=== PATIENT | female | born 1960 | race Caucasian/White ===

== ENCOUNTER 2016-12-22 16:19 | Observation (INO) | payer MEDICAID ==
[~2016-12-22] VITALS: Ht 170.2 cm; Wt 88.9 kg
[~2016-12-22 16:19] MED LIST: ALBU17AE23 IH; ANTI14DR4 OT; ASP325TEC PO; ASP81TEC PO; ASPI-892 PO; ATOR10TA PO; ATOR40TA70 PO; AZIT-21 PO; AZIT1PAC8 PO; BENZ100C18 PO; BSP10T; BSP10T PO; CALC600T PO; CEFP500T4 PO; CEPH-38 PO; CEPH500C PO; CETI10CA PO; CETI10TA17 PO; CITA20TA4 PO; CPR500T PO; CTLP20T PO; CYAN500T2 PO; D ME PO; DULO60CA58 PO; DULO60CA6 PO; ENAL2.5T PO; ESOM20CA32 PO; ESOM20SU PO; FLT05NA16 NSEACH; FLUT16SP22; FLUT16SP22 NSEACH; GABA-488 PO; GABA-490 PO; GABA600T2 PO; GBPN400C; HYDR-3456 PO; HYDR-690; HYDR1TAB PO; HYDROCODONE; IBP600T1; IBP600T1 PO; IBUP-30 PO; INSASP10V SC; INSASP10V SQ; INSU100I14 SC; INSU100I16 SQ; INSU100V16 SC; INSU100V5 SC; INSU100V5 SQ; LEVE1U; LIRA0.6P SQ; LIRA0.6P3 SC; LISI-556 PO; LISI2.5T56 PO; METF-380 PO; METF1000 PO; METR500T PO; MMT17NA; MNTL10T PO; MONT10TA24 PO; MTF500T; MTF500T PO; MULT-63 PO; NAPR-243 PO; NITR-65 PO; ONDAN4ODT PO; PHEN100T26 PO; PRCD5U PO; PRD20T PO; PRM25T PO; SIMV10TA3 PO; SIMV20TA3 PO; SIMV40TA4 PO; SULF-222 PO; SULF1TAB38 PO; TRAM50TA2 PO; VITA1TAB43 PO
[2016-12-22] MEDS ORDERED: ASPIRIN 81 MG CHEW (CHILDREN'S ASA) PO ONE (16:30)
[2016-12-22] MEDS ORDERED: RX-NITROGLYCERIN 0.4 MG TAB BTL 25'S SL ONE (16:32)
[2016-12-22] MEDS ORDERED: RX-NITROGLYCERIN 0.4 MG TAB BTL 25'S SL STA (16:32)
--- NOTE | 2016-12-22 16:32 | ED Chest Pain ---
General Stated Complaint: CP Source: patient Exam Limitations: no limitations History of Present Illness Time seen by provider: 16:30 Initial Comments To ER with reports of central chest pain described as a tightness. This began 45 minutes ago while riding in a car on her way home from [place]. She's had associated nausea with this. Pain radiates to the left axilla. She states that she's had 3 heart catheterizations most recently about a year ago. Primary care is [facility], [facility] or busser is Dr. Kc. Currently she rates her pain a 5 out of 10. Timing/Duration: constant Severity/Quality: moderate Location: central Radiation: no radiation Activities at Onset: none ASA po BOBBIN WINDER: No NTG SL BOBBIN WINDER: No Associated Symptoms: nausea/vomiting Allergies and Home Medications Allergies Coded Allergies: codeine (Verified Allergy, Unknown, HEART PALPATATION, 02/04/15) Home Medications Albuterol 17 Gm Aerosol 2 PUFF IH Q4H PRN PRN SHORTNESS OF BREATH (Reported) Aspirin 81 Mg Tabec 81 MG PO HS (Reported) Atorvastatin Calcium 40 Mg Tablet 40 MG PO HS (Reported) Cetirizine Hcl 10 Mg Tablet 10 MG PO HS (Reported) Cyanocobalamin 500 Mcg Tablet 500 MCG PO HS (Reported) Duloxetine HCl 60 Mg Capsule.dr 60 MG PO HS (Reported) Esomeprazole Magnesium 20 Mg Capsule.dr 20 MG PO DAILY PRN PRN HEARTBURN ( Reported) Fluticasone Propionate 16 Gm Naspr 2 SPRAYS NA DAILY PRN PRN ALLERGIES (Reported ) ALTERNATES BETWEEN FLONASE AND NASONEX Gabapentin 400 Mg Capsule 400 MG PO HS PRN PRN PAIN (Reported) Insulin Detemir 100 Unit/1 Ml Insuln.pen 135 UNIT SQ HS (Reported) Insulin Detemir 100 U/Ml Vial 60 UNITS SC AM PRN PRN BLOOD SUGAR >180 (Reported ) Liraglutide 0.6 Mg/0.1 Ml Pen.injctr 1.8 MG SC HS (Reported) Metformin HCl 1,000 Mg Tablet 1,000 MG PO BID (Reported) Mometasone Furoate 17 Gm Naspr 2 SPRAYS NA DAILY PRN PRN CONGESTION (Reported) ALTERNATES WITH FLONASE AND NASONEX Multivitamin 1 Each Tab.chew 1 EACH PO HS (Reported) Review of Systems Constitutional: see HPI EENTM: No Symptoms Reported Cardiovascular: See HPI Chest Pain Gastrointestinal: No Symptoms Reported Genitourinary: No Symptoms Reported Musculoskeletal: no symptoms reported Skin: no symptoms reported Psychiatric/Neurological: No Symptoms Reported Endocrine: No Symptoms Reported Hematologic/Lymphatic: No Symptoms Reported Past [id number]-Dpwwhc Hx Patient Social History Type Used: Cigarettes Recent Foreign Travel: No Contact w/Someone Who Travel: No Recent Hopitalizations: No Immunizations Up To Date Tetanus Booster (TDap): Less than 5yrs Date of Pneumonia Vaccine: Nov 16, 2012 Date of Influenza Vaccine: Jan 28, 2015 Seasonal Allergies Seasonal Allergies: No Surgeries HX Surgeries: Yes Surgeries: Vascular Surgery Respiratory Hx Respiratory Disorders: No Cardiovascular Hx Cardiac Disorders: Yes Cardiac Disorders: High Cholesterol, Hypertension, Syncope Neurological Hx Neurological Disorders: No Neurological Disorders: Neuropathy 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 System Hx 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 Disorders: No Sexually Transmitted Disease: No HIV/AIDS: No Female 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 Disorders: 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 Genitourinary Hx Genitourinary Disorders: No Genitourinary Disorders: Renal Failure Gastrointestinal Hx Gastrointestinal Disorders: No Gastrointestinal Disorders: Gastroesophageal Reflux Musculoskeletal Hx Musculoskeletal Disorders: No Musculoskeletal Disorders: Arthritis, Chronic Back Pain Endocrine Hx Endocrine Disorders: No Endocrine Disorders: Diabetes, Insulin dep HEENT HX ENT Disorders: No HEENT Disorders: Cataract Cancer Hx Cancer: No Psychosocial Hx Psychiatric Problems: No Behavioral Health Disorders: Depression Integumentary HX Skin/Integumentary Disorder: No Blood Transfusions Hx Blood Disorders: No Family Medical History Significant Family History: No Pertinent Family Hx, Heart Disease Family Medial History: FH: diabetes mellitus FH: heart disease Physical Exam Vital Signs Vital Sign - Last 12Hours 12/22/16 12/22/16 16:20 16:25 Temp 97.4 Pulse 84 Resp 16 B/P 135/76 Pulse Ox 99 O2 Delivery Room Air FiO2 100 Capillary Refill : General Appearance: No Apparent Distress WD/WN Chronically ill HEENT: PERRL/EOMI TMs Normal Neck: Full Range of Motion Normal Inspection Respiratory: Lungs Clear Normal Breath Sounds No Accessory Muscle Use No Respiratory Distress Cardiovascular: Regular Rate, Rhythm Normal Peripheral Pulses Gastrointestinal: Non Tender Soft Extremity: Normal Capillary Refill Normal Inspection Neurologic/Psychiatric: Alert Oriented x3 No Motor/Sensory Deficits Skin: Normal Color Warm/Dry Progress/Results/Core Measures Results/Orders Lab Results Laboratory Tests Test 12/22/16 16:30 Range/Units Activated Partial Thromboplast Time 29 24-35 SEC Alanine Aminotransferase (ALT/SGPT) 66 H 0-55 U/L Albumin 3.9 3.2-4.5 G/DL Alkaline Phosphatase 162 H 40-136 U/L Anion Gap 12 5-14 MMOL/L Aspartate Amino Transf (AST/SGOT) 35 H 5-34 U/L BUN/Creatinine Ratio 7 Basophils # (Auto) 0.1 0.0-0.1 10^3/uL Basophils (%) (Auto) 1 0-10 % Blood Urea Nitrogen 8 7-18 MG/DL Calcium Level 9.2 8.5-10.1 MG/DL Carbon Dioxide Level 22 21-32 MMOL/L Chloride Level 102 98-107 MMOL/L Creatinine 1.21 0.60-1.30 MG/DL Eosinophils # (Auto) 0.4 H 0.0-0.3 10^3/uL Eosinophils (%) (Auto) 6 0-10 % Estimat Glomerular Filtration Rate 46 Glucose Level 363 H 70-105 MG/DL Hematocrit 37 35-52 % Hemoglobin 12.5 11.5-16.0 G/DL INR Comment 1.1 0.8-1.4 Lipase 146 H 8-78 U/L Lymphocytes # (Auto) 2.5 1.0-4.0 X 10^3 Lymphocytes (%) (Auto) 32 12-44 % Magnesium Level 1.6 L 1.8-2.4 MG/DL Mean Corpuscular Hemoglobin 30 25-34 PG Mean Corpuscular Hemoglobin Concent 34 32-36 G/DL Mean Corpuscular Volume 89 80-99 FL Mean Platelet Volume 9.9 7.4-10.4 FL Monocytes # (Auto) 0.4 0.0-1.0 X 10^3 Monocytes (%) (Auto) 6 0-12 % Myoglobin 28.0 10.0-92.0 NG/ML Neutrophils # (Auto) 4.4 1.8-7.8 X 10^3 Neutrophils (%) (Auto) 56 42-75 % Platelet Count 236 130-400 10^3/uL Potassium Level 3.9 3.6-5.0 MMOL/L Prothrombin Time 13.7 12.2-14.7 SEC Red Blood Count 4.19 L 4.35-5.85 10^6/uL Red Cell Distribution Width 12.8 10.0-14.5 % Sodium Level 136 135-145 MMOL/L Total Bilirubin 0.6 0.1-1.0 MG/DL Total Protein 8.1 6.4-8.2 G/DL Troponin I < 0.30 <0.30 NG/ML White Blood Count 7.7 4.3-11.0 10^3/uL My Orders Orders-ELVA ÁLVAREZ APRN Cbc With Automated Diff (12/22/16 16:22) Magnesium (12/22/16 16:22) Chest 1 View, Ap/Pa Only (12/22/16 16:22) Ekg Tracing (12/22/16 16:22) Cardiac Profile 1 (12/22/16 16:22) Comprehensive Metabolic Panel (12/22/16 16:22) Myoglobin Serum (12/22/16 16:22) Protime With Inr (12/22/16 16:22) Partial Thromboplastin Time (12/22/16 16:22) O2 (12/22/16 16:22) Monitor-Rhythm Ecg Trace Only (12/22/16 16:22) Lipid Panel (12/23/16 06:00) Aspirin Chewable Tablet (Baby Aspirin Ch (12/22/16 16:30) Saline Lock/Iv-Start (12/22/16 16:22) Rx-Nitroglycerin Sl Tabs (Rx-Nitrostat S (12/22/16 16:32) Rx-Nitroglycerin Sl Tabs (Rx-Nitrostat S (12/22/16 16:32) Lipase (12/22/16 17:04) Medications Given in ED Current Medications Medications Dose Ordered Sig/Josh Route Start Time Stop Time Status Last Admin Dose Admin Aspirin 324 mg ONCE ONCE PO 12/22/16 16:30 12/22/16 16:31 DC 12/22/16 16:36 324 MG Nitroglycerin 0.4 mg STK-MED ONCE SL 12/22/16 16:32 12/22/16 16:35 DC 12/22/16 16:37 0.4 MG Vital Signs/I&O Vital Sign - Last 12Hours 12/22/16 12/22/16 12/22/16 16:20 16:20 16:25 Temp 97.4 Pulse 84 Resp 16 B/P 135/76 Pulse Ox 99 O2 Delivery Room Air Room Air FiO2 100 Departure Communication Time/Spoke to Admitting Phy: 17:[address] Victoria. We'll admit the patient with cardiology consult, repeat amylase lipase in the morning Time/Spoke to Consulting Physi: 17:46 Communication/Consulting Discussed with Dr. Kc. We'll admit the patient, serial cardiac enzymes. Progress Notes No improvement in pain after the aspirin and nitroglycerin Impression Impression: Primary Impression: Chest pain Qualified Code: R07.9 - Chest pain, unspecified Additional Impression: Acute pancreatitis Qualified Code: K85.90 - Acute pancreatitis without necrosis or infection, unspecified Disposition: ADMITTED INPATIENT Condition: Stable Decision to Admit Reason: Admit from ER (General) Decision to Admit/Date: Dec 22, 2016 Time/Decision to Admit Time: 17:47 Departure-Patient Inst. Referrals: [facility] (PCP/Family) Primary Care Physician ELVA ÁLVAREZ APRN Dec 22, 2016 16:32 Departure-Patient Inst. Referrals: [facility] (PCP/Family) Primary Care Physician ELVA ÁLVAREZ APRN Dec 22, 2016 16:32
[2016-12-22 16:35] LABS: BASOPHILS # (AUTO) 0.1 10^3/uL (0.0-0.1); BASOPHILS % (AUTO) 1 % (0-10); EOSINOPHILS # (AUTO) 0.4 10^3/uL (0.0-0.3); EOSINOPHILS % (AUTO) 6 % (0-10); LYMPHOCYTES # (AUTO) 2.5 X 10^3 (1.0-4.0); LYMPHOCYTES % (AUTO) 32 % (12-44); MEAN CORPUSCULAR HEMOGLOBIN 30 PG (25-34); MEAN CORPUSCULAR HGB CONC 34 G/DL (32-36); MEAN CORPUSCULAR VOLUME 89 FL (80-99); MEAN PLATELET VOLUME 9.9 FL (7.4-10.4); MONOCYTES # (AUTO) 0.4 X 10^3 (0.0-1.0); MONOCYTES % (AUTO) 6 % (0-12); NEUTROPHILS # (AUTO) 4.4 X 10^3 (1.8-7.8); NEUTROPHILS % (AUTO) 56 % (42-75); PLATELET COUNT 236 10^3/uL (130-400); RED BLOOD COUNT 4.19 10^6/uL (4.35-5.85); RED CELL DISTRIBUTION WIDTH 12.8 % (10.0-14.5); WHITE BLOOD COUNT 7.7 10^3/uL (4.3-11.0)
[2016-12-22 16:45] LABS: INR 1.1 (0.8-1.4); PROTHROMBIN TIME PATIENT 13.7 SEC (12.2-14.7)
[2016-12-22 16:55] LABS: ALANINE AMINOTRANSFERASE 66 U/L (0-55); ALBUMIN 3.9 G/DL (3.2-4.5); ANION GAP 12 MMOL/L (5-14); ASPARTATE AMINO TRANSFERASE 35 U/L (5-34); BILIRUBIN,TOTAL 0.6 MG/DL (0.1-1.0); BLOOD UREA NITROGEN 8 MG/DL (7-18); BUN/CREATININE RATIO 7; CALCIUM 9.2 MG/DL (8.5-10.1); CARBON DIOXIDE 22 MMOL/L (21-32); CHLORIDE 102 MMOL/L (98-107); CREATININE SERUM 1.21 MG/DL (0.60-1.30); GFR ESTIMATED 46; GLUCOSE 363 MG/DL (70-105); MAGNESIUM 1.6 MG/DL (1.8-2.4); POTASSIUM 3.9 MMOL/L (3.6-5.0); SODIUM 136 MMOL/L (135-145); TOTAL PROTEIN 8.1 G/DL (6.4-8.2)
--- NOTE | 2016-12-22 17:00 | Diagnostic Imaging Report ---
INDICATION: Chest tightness. TECHNIQUE: Frontal chest obtained at 4:36 p.m. FINDINGS: Heart and mediastinal silhouette are normal in appearance. The lungs are clear. There is no pneumothorax or pleural fluid. IMPRESSION: Negative chest. Dictated by: Dictated on workstation # [id number]
[2016-12-22] MEDS ORDERED: inSUlin (REGULAR) HUMAN 1 UNIT/0.01 ML (CHARGE PER UNIT) IV ONE (17:45)
[2016-12-22] MEDS ORDERED: NS IV 1000 ML 1,000 ML IV SCH (17:45)
[2016-12-22] MEDS ORDERED: fentaNYL INJECTION 100 MCG/2 ML AMP IVP ONE (18:00)
[2016-12-22] MEDS: CATHETER FLUSH 10 ML SYR IV PRN (18:50)
[2016-12-22] MEDS: NS IV 1000 ML 1,000 ML IV SCH (18:50)
[2016-12-22] MEDS ORDERED: fentaNYL INJECTION 100 MCG/2 ML AMP IV PRN (19:00)
[2016-12-22] MEDS ORDERED: ONDANSETRON 4 MG/2 ML (SDV) Z0FRAN IV PRN (19:00)
[2016-12-22 20:00] VITALS: BP 138/83
[2016-12-22] MEDS ORDERED: DULoxetine 30 MG (CYMBALTA) CAP PO SCH (21:00)
[2016-12-22] MEDS: inSUlin (REGULAR) HUMAN 1 UNIT/0.01 ML (CHARGE PER UNIT) SC SCH (21:00)
[2016-12-23] VITALS (7 sets, daily range): BP systolic 115–149; BP diastolic 56–76
[2016-12-23] MEDS: NS IV 1000 ML 1,000 ML IV SCH ×2 (02:57→11:00)
[2016-12-23 04:58] LABS: CHOLESTEROL 116 MG/DL (< 200); DIRECT LDL 75 MG/DL (1-129); TRIGLYCERIDES 95 MG/DL (<150); VLDL CHOLESTEROL 19 MG/DL (5-40)
[2016-12-23 05:05] LABS: ALANINE AMINOTRANSFERASE 62 U/L (0-55); ALBUMIN 3.2 G/DL (3.2-4.5); AMYLASE 112 U/L (25-125); ANION GAP 9 MMOL/L (5-14); ASPARTATE AMINO TRANSFERASE 60 U/L (5-34); BILIRUBIN,TOTAL 0.6 MG/DL (0.1-1.0); BLOOD UREA NITROGEN 8 MG/DL (7-18); BUN/CREATININE RATIO 9; CALCIUM 8.1 MG/DL (8.5-10.1); CARBON DIOXIDE 20 MMOL/L (21-32); CHLORIDE 109 MMOL/L (98-107); GFR ESTIMATED > 60; GLUCOSE 153 MG/DL (70-105); LIPASE 53 U/L (8-78); SODIUM 138 MMOL/L (135-145); TOTAL PROTEIN 6.5 G/DL (6.4-8.2)
[2016-12-23] MEDS: inSUlin (REGULAR) HUMAN 1 UNIT/0.01 ML (CHARGE PER UNIT) SC SCH ×3 (05:59→17:20)
--- NOTE | 2016-12-23 08:45 | Progress Note (SOAP) ---
LORAINE BENITEZ MEDICAL STUDENT 12/23/16 0845: Subjective Subjective/Events-last exam Ms. Alvarado reports that she his feeling much better this morning. Her chest pain which she described as a substernal "tightness" has changed to a minor ache and has decreased in intensity from a 5/10 to a 2/10. She also reports that her anxiety, nausea, diaphoresis, and lightheadedness resolved last night. She is looking forward to going home today if possible. Review of Systems General: Other Cardiovascular: : Chest PainNo: Lt Headedness, Orthopnea, Palpitations Gastrointestinal: : Abdominal Pain (minimal abdominal pain yesterday, resolving )No: Nausea Objective Exam Vital Signs Date Time Temp Pulse Resp B/P Pulse Ox O2 Delivery O2 Flow Rate FiO2 12/23/16 04:00 96.6 70 12 115/56 100 Room Air 12/23/16 00:00 97.2 66 12 137/61 99 Room Air 12/22/16 21:00 Room Air 12/22/16 20:00 99.2 78 20 138/83 98 Room Air 12/22/16 19:51 96 Room Air 12/22/16 18:25 84 16 96 12/22/16 16:25 Room Air 100 12/22/16 16:20 Room Air 12/22/16 16:20 97.4 84 16 135/76 99 I & O 12/23/16 07:00 Intake Total 2300 ml Output Total 1050 ml Balance 1250 ml Capillary Refill : Less Than 3 Seconds General Appearance: No Apparent Distress Other (Generalized pallor, but well- appearing, euthymic, and appropriately interactive woman) Neck: No JVD Respiratory: Lungs Clear Normal Breath Sounds Cardiovascular: Regular Rate, Rhythm No Murmur Peripheral Pulses: 1+ Radial Pulses (R) (weak, but palpable and regular pulse) , 1+ Radial Pulses (L) (weak, but palpable and regular pulse) Skin: Warm/Dry Mottled (some 3-10 mm diameter focal areas of hypopigmentation noted on forearms, reportly scarring from sores) Pallor Results Lab Laboratory Tests 12/22/16 16:30: Activated Partial Thromboplast Time 29, Alanine Aminotransferase (ALT/SGPT) 66H , Albumin 3.9, Alkaline Phosphatase 162H, Anion Gap 12, Aspartate Amino Transf ( AST/SGOT) 35H, BUN/Creatinine Ratio 7, Basophils # (Auto) 0.1, Basophils (%) ( Auto) 1, Blood Urea Nitrogen 8, Calcium Level 9.2, Carbon Dioxide Level 22, Chloride Level 102, Creatinine 1.21, Eosinophils # (Auto) 0.4H, Eosinophils (%) (Auto) 6, Estimat Glomerular Filtration Rate 46, Glucose Level 363H, Hematocrit 37, Hemoglobin 12.5, INR Comment 1.1, Lipase 146H, Lymphocytes # (Auto) 2.5, Lymphocytes (%) (Auto) 32, Magnesium Level 1.6L, Mean Corpuscular Hemoglobin 30 , Mean Corpuscular Hemoglobin Concent 34, Mean Corpuscular Volume 89, Mean Platelet Volume 9.9, Monocytes # (Auto) 0.4, Monocytes (%) (Auto) 6, Myoglobin 28.0, Neutrophils # (Auto) 4.4, Neutrophils (%) (Auto) 56, Platelet Count 236, Potassium Level 3.9, Prothrombin Time 13.7, Red Blood Count 4.19L, Red Cell Distribution Width 12.8, Sodium Level 136, Total Bilirubin 0.6, Total Protein 8.1, Troponin I < 0.30, White Blood Count 7.7 12/22/16 21:33: Glucometer 120H 12/22/16 22:20: Troponin I < 0.30 12/23/16 04:19: Alanine Aminotransferase (ALT/SGPT) 62H, Albumin 3.2, Alkaline Phosphatase 133, Anion Gap 9, Aspartate Amino Transf (AST/SGOT) 60H, BUN/Creatinine Ratio 9, Blood Urea Nitrogen 8, Calcium Level 8.1L, Carbon Dioxide Level 20L, Chloride Level 109H, Creatinine 0.90, Estimat Glomerular Filtration Rate > 60, Glucose Level 153H, Lipase 53, Potassium Level 4.0, Sodium Level 138, Total Bilirubin 0.6, Total Protein 6.5, Troponin I < 0.30, Amylase Level 112, Cholesterol Level 116, HDL Cholesterol 29L, LDL Cholesterol Direct 75, Triglycerides Level 95, VLDL Cholesterol 19 Assessment/Plan Assessment/Plan Assess & Plan/Chief Complaint Chest pain - She reports that she has had episodic chest pain for some time and follows with a senior javascript engineer - Her chest pain has never been associated with sweating, nausea, and feeling "shaky" - She went to ER at recommendation of her daughters (who are nurses) after explaining her symptoms - She has never been diagnosed with angina in the past, but has a significant personal and family cardiac history and is s/p cardiac catheterization x 3 - Serial troponins normal - No immediate relief from chest pain after treatment with ASA and nitroglycerin - Rates pain as having reduced from 5/10 yesterday to 2/10 this morning - Plan for last troponin measurement today - Amylase and lipase normal - CXR normal - Plan for stress test today Hyperglycemia, Diabetes mellitus - She reports that she has been hospitalized for blood sugar control multiple times in the past - She has had some symptoms similar to what she experienced yesterday, but never associated with chest pain - Blood glucose 153 mg/dL this AM down from 363 mg/dL yesterday - Nausea treated with ondansetron PRN - Home insulin regimen includes levemir and victoza, and she used to take metformin but discontinued it a few months ago due to nausea despite taking it with meals - Discussed glucose control with Ms. Alvarado; she has a good understanding of the principles of glucose control, but has difficulty maintaining a routine schedule and as a result tends to end up trying to manage her glucose with soda or insulin, which sometimes leads to overcorrections Mood - SLINGER SEQUINS duloxetine 60 mg PO QHS Elevated LFTs - Plan to follow up for HBV testing and evaluation of fatty liver disease noted previously (and intermittently elevated LFTs) Disposition - Plan for likely discharge today pending review stress test - Plan for Ms. Alvarado to follow up with her senior javascript engineer as an outpatient - Also plan for follow up with her PCP to consider revising DM management plan Diagnosis/Problems: Clinical Quality Measures AMI/AHF: ASA po Prior to arrival: No JUDI RICHARDS MD 12/23/16 1132: Supervisory-Addendum Brief Supervisory Addendum Patient seen with MSKelli Benitez, see my notes same day. LORAINE BENITEZ MEDICAL STUDENT Dec 23, 2016 08:45 JUDI RICHARDS MD Dec 23, 2016 11:32
[2016-12-23] MEDS ORDERED: FLUT16SP22 (08:49)
[2016-12-23] MEDS ORDERED: CYANOCOBALAMIN PO (08:49)
[2016-12-23] MEDS ORDERED: INSU100V5 SQ ×3 (08:49→16:53)
[2016-12-23] MEDS ORDERED: LIRA0.6P3 SQ (08:49)
[2016-12-23] MEDS ORDERED: CETI10TA17 PO (08:49)
[2016-12-23] MEDS ORDERED: DULO60CA58 PO (08:49)
[2016-12-23] MEDS ORDERED: VITAMIN C PO (08:49)
--- NOTE | 2016-12-23 09:04 | Consultation-Cardiology ---
HPI-Cardiology Cardiology Consultation Date of Consultation 12/23/16 Date of Admission Indication: Chest pain HPI Patient is a 56 year old female with history of nonobstructive CAD per cardiac cath in May 2015, HTN, HLP, DM. Presented to the ER with complaints of CP, onset yesterday afternoon, with associated nausea and LUQ pain. Denies any active CP at this time. Reports blood sugars have been OOC lately. Denies any palpitations. Continues to complain of occasional dizziness and lightheadedness. Denies syncope. Patient was seen and evaluated with Bev, she is laying down in bed, had a stress test, did not show any ischemia, her chest pain is better, had mild epigastric discomfort. We discussed management plan recommended upper endoscopy. Cardiac workup has been negative. Home Medications & Allergies Allergies: Coded Allergies: codeine (Verified Allergy, Unknown, HEART PALPATATION, 02/04/15) Home Medication List Reviewed: Yes HWN-Sdyryi-Xfquex Hx Patient Social History Marital Status: Alcohol Use: Denies Use Recreational Drug Use: No Smoking Status: Former Smoker Type Used: Cigarettes Recent Foreign Travel: No Recent Infectious Disease Expo: No Recent Hopitalizations: No Physical Abuse Screen: No Sexual Abuse: No Immunizations Up To Date Tetanus Booster (TDap): Less than 5yrs Date of Pneumonia Vaccine: Nov 21, 2016 Date of Influenza Vaccine: Aug 30, 2016 Past Medical History HTN, HLP, DM, syncope Family Medical History Significant Family History: No Pertinent Family Hx, Heart Disease Family History: FH: diabetes mellitus FH: heart disease Constitutional: diaphoresis dizzinessNo fever, malaise weaknessNo weight gain , No weight loss EENTM: No blurred vision, No double vision, No throat pain, No throat swelling , No vision loss Respiratory: No cough, No dyspnea on exertion Cardiovascular: chest painNo edema, No palpitations, No syncope, No vascular heart diseas Gastrointestinal: abdominal pain (LUQ)No constipation, diarrhea nauseaNo vomiting Genitourinary: No discharge, No frequency, No hematuria Musculoskeletal: No back pain, No joint swelling Skin: No dryness, No lesions, No rash Psychiatric/Neurological: Denies Anxiety, Denies Depressed Reviewed Test Results Reviewed Test Results Lab Laboratory Tests 12/22/16 16:30: Activated Partial Thromboplast Time 29, Alanine Aminotransferase (ALT/SGPT) 66H , Albumin 3.9, Alkaline Phosphatase 162H, Anion Gap 12, Aspartate Amino Transf ( AST/SGOT) 35H, BUN/Creatinine Ratio 7, Basophils # (Auto) 0.1, Basophils (%) ( Auto) 1, Blood Urea Nitrogen 8, Calcium Level 9.2, Carbon Dioxide Level 22, Chloride Level 102, Creatinine 1.21, Eosinophils # (Auto) 0.4H, Eosinophils (%) (Auto) 6, Estimat Glomerular Filtration Rate 46, Glucose Level 363H, Hematocrit 37, Hemoglobin 12.5, INR Comment 1.1, Lipase 146H, Lymphocytes # (Auto) 2.5, Lymphocytes (%) (Auto) 32, Magnesium Level 1.6L, Mean Corpuscular Hemoglobin 30 , Mean Corpuscular Hemoglobin Concent 34, Mean Corpuscular Volume 89, Mean Platelet Volume 9.9, Monocytes # (Auto) 0.4, Monocytes (%) (Auto) 6, Myoglobin 28.0, Neutrophils # (Auto) 4.4, Neutrophils (%) (Auto) 56, Platelet Count 236, Potassium Level 3.9, Prothrombin Time 13.7, Red Blood Count 4.19L, Red Cell Distribution Width 12.8, Sodium Level 136, Total Bilirubin 0.6, Total Protein 8.1, Troponin I < 0.30, White Blood Count 7.7 12/22/16 21:33: Glucometer 120H 12/22/16 22:20: Troponin I < 0.30 12/23/16 04:19: Alanine Aminotransferase (ALT/SGPT) 62H, Albumin 3.2, Alkaline Phosphatase 133, Anion Gap 9, Aspartate Amino Transf (AST/SGOT) 60H, BUN/Creatinine Ratio 9, Blood Urea Nitrogen 8, Calcium Level 8.1L, Carbon Dioxide Level 20L, Chloride Level 109H, Creatinine 0.90, Estimat Glomerular Filtration Rate > 60, Glucose Level 153H, Lipase 53, Potassium Level 4.0, Sodium Level 138, Total Bilirubin 0.6, Total Protein 6.5, Troponin I < 0.30, Amylase Level 112, Cholesterol Level 116, HDL Cholesterol 29L, LDL Cholesterol Direct 75, Triglycerides Level 95, VLDL Cholesterol 19 ECG Impression ECG Initial ECG Rhythm: Normal Sinus Physical Exam Vital Signs Vital Sign - Last 12Hours 12/22/16 12/22/16 16:20 16:25 Temp 97.4 Pulse 84 Resp 16 B/P 135/76 Pulse Ox 99 O2 Delivery Room Air FiO2 100 Capillary Refill : Less Than 3 Seconds General Appearance: No Apparent Distress WD/WN HEENT: PERRL/EOMI TMs Normal Normal ENT Inspection Neck: Non Tender Supple Respiratory: Chest Non Tender Lungs Clear Normal Breath Sounds No Accessory Muscle Use No Respiratory Distress Cardiovascular: Regular Rate, Rhythm No Edema No Murmur Normal Peripheral Pulses Gastrointestinal: Normal Bowel Sounds Non Tender Soft Rectal: Normal Exam Deferred Back: No CVA Tenderness No Vertebral Tenderness Extremity: No Calf Tenderness Neurologic/Psychiatric: Alert Oriented x3 shrub planter II-XII Norm as Tested Skin: Normal Color Warm/Dry Lymphatic: No Adenopathy A/P-Cardiology Admission Diagnosis CP CAD HTN HLP Assessment/Plan Chest pain, nonspecific etiology, EKG revealed no acute changes, cardiac enzymes negative. Most recent cardiac catheterization done in May 2015 revealed nonobstructive disease. Has multiple underlying risk factors for progression of CAD. Planning for LST this afternoon Elevated LFT's, lipase, questionable pancreatitis- continue to monitor. History of syncope, tilt table test in 2011 was negative, probably orthostatic syncope secondary to autonomic dysfunction. Patient reports multiple episodes of syncope. Assured her it was not cardiac in nature. Continue to monitor. Nonobstructive coronary artery disease per cardiac catheterization May 2015 Diabetes mellitus, managed by primary care physician Diabetic neuropathy Hypertension, restart home medications and continue to monitor. Hyperlipidemia-patient reports intolerance to simvastatin and lovastatin. She reports Crestor was too expensive. Currently on Lipitor 10 mg. I will hold lipitor at this time secondary to elevated LFT's Chronic renal insufficiency-continue to monitor. History of Pica-patient reports resolved Generalized chronic pain-recommend follow-up with primary care physician Carotid artery stenosis-last carotid duplex July 2016. Thank you for allowing us to participate in the management of Ms. Alvarado. This is Bev Garcia PA-C as a scribe for Dr. Kc. This is Dr. Kc, I have seen and evaluated the patient with Bev, interviewed the patient and perform physical examination. I agree with the transcribed, patient had recurrent chest pain, had a stress test done earlier today which showed no significant ischemia, had cardiac catheterization done 2 years ago showing mild disease. Had colonoscopy done recently, recommended having upper endoscopy. She has history of diabetes mellitus, elevated lipase. Currently better. Still have mild elevation in LFTs. I agree with the current note, dated few modification and used Italic Font Clinical Quality Measures AMI/AHF: ASA po Prior to arrival: No BEV GOYAL Dec 23, 2016 9:04 am KETAN CK MD Dec 23, 2016 3:47 pm
--- NOTE | 2016-12-23 09:29 | History & Physicial (CHS) ---
HPI History of Present Illness: Patient presented to ER due to chest pain starting about 3:30 pm and lasting for about 45 minutes, nausea, shakiness and sweating. She does see Cardiology for history of CAD and has family history of CAD as well. She had a cardiac cath in 05/2015 with non-obstructive disease. Has not had chest pain with nausea and sweating associated in past. She does also have diabetes which does sometimes cause her some nausea and sweatiness when her blood sugar is abnormal. She did not have improvement with aspirin and nitroglycerin in the ER and troponins were normal. Attending Physician Silvana Victoria MD PCP [facility] Date of Admission Dec 22, 2016 at 17:43 Home Medications Home Medications Reviewed patient Home Medication Reconciliation Form Allergies Coded Allergies: codeine (Verified Allergy, Unknown, HEART PALPATATION, 02/04/15) [id number]-Pfvmpd-Udomeg Hx Patient Social History Alcohol Use: Denies Use Recreational Drug Use: No Smoking Status: Never a Smoker Type Used: Cigarettes Recent Foreign Travel: No Contact w/other who traveled: No Recent Hopitalizations: No Recent Infectious Disease Expo: No Physical Abuse Screen: No Sexual Abuse: No Immunizations Up To Date Tetanus Booster (TDap): Less than 5yrs Date of Pneumonia Vaccine: Nov 21, 2016 Date of Influenza Vaccine: Aug 30, 2016 Past Medical History Past Medical History 1. Syncope-evaluated by cardiology and neurology has history of negative tilt with evaluation by neurology. 2. Hypertension 3. Hyperlipidemia 4. Diabetes 5. DJD 6. GERD 7. Peripheral Neuropathy 8. Depression 9. Anxiety 10. Bipolar 11. Asthma 12. Fatty liver (noted on CT 2010 and has intermittent AST/ALT elevation) Past Surgical History 1. Neck Surgery 2. Back Surgery 3. Hysterectomy with BSO 4. Cholecystectomy 5. Bone spur 6. Cardiac Cath 2011 with no obstructive disease 7. Cardiac cath 2014 with no obstructive disease Family Medical History Significant Family History: No Pertinent Family Hx, Heart Disease Family History: FH: diabetes mellitus FH: heart disease Review of Systems (CHC) Constitutional: No fever EENTM: throat painNo blurred vision, No nose congestion Respiratory: No cough, No short of breath Cardiovascular: see HPI Gastrointestinal: No abdominal pain, No constipation, No diarrhea, nauseaNo vomiting Genitourinary: no symptoms reported Musculoskeletal: joint pain (baseline) Skin: rash (scabbing/blisters on arms occasionally) Psychiatric/Neurological: No Symptoms Reported Reviewed Test Results Reviewed Test Results Lab Laboratory Tests Test 12/22/16 16:30 12/22/16 21:33 12/22/16 22:20 12/23/16 04:19 Range/Units Activated Partial Thromboplast Time 29 24-35 SEC Alanine Aminotransferase (ALT/SGPT) 66 H 62 H 0-55 U/L Albumin 3.9 3.2 3.2-4.5 G/DL Alkaline Phosphatase 162 H 133 40-136 U/L Anion Gap 12 9 5-14 MMOL/L Aspartate Amino Transf (AST/SGOT) 35 H 60 H 5-34 U/L BUN/Creatinine Ratio 7 9 Basophils # (Auto) 0.1 0.0-0.1 10^3/uL Basophils (%) (Auto) 1 0-10 % Blood Urea Nitrogen 8 8 7-18 MG/DL Calcium Level 9.2 8.1 L 8.5-10.1 MG/DL Carbon Dioxide Level 22 20 L 21-32 MMOL/L Chloride Level 102 109 H 98-107 MMOL/L Creatinine 1.21 0.90 0.60-1.30 MG/DL Eosinophils # (Auto) 0.4 H 0.0-0.3 10^3/uL Eosinophils (%) (Auto) 6 0-10 % Estimat Glomerular Filtration Rate 46 > 60 Glucose Level 363 H 153 H 70-105 MG/DL Hematocrit 37 35-52 % Hemoglobin 12.5 11.5-16.0 G/DL INR Comment 1.1 0.8-1.4 Lipase 146 H 53 8-78 U/L Lymphocytes # (Auto) 2.5 1.0-4.0 X 10^3 Lymphocytes (%) (Auto) 32 12-44 % Magnesium Level 1.6 L 1.8-2.4 MG/DL Mean Corpuscular Hemoglobin 30 25-34 PG Mean Corpuscular Hemoglobin Concent 34 32-36 G/DL Mean Corpuscular Volume 89 80-99 FL Mean Platelet Volume 9.9 7.4-10.4 FL Monocytes # (Auto) 0.4 0.0-1.0 X 10^3 Monocytes (%) (Auto) 6 0-12 % Myoglobin 28.0 10.0-92.0 NG/ML Neutrophils # (Auto) 4.4 1.8-7.8 X 10^3 Neutrophils (%) (Auto) 56 42-75 % Platelet Count 236 130-400 10^3/uL Potassium Level 3.9 4.0 3.6-5.0 MMOL/L Prothrombin Time 13.7 12.2-14.7 SEC Red Blood Count 4.19 L 4.35-5.85 10^6/uL Red Cell Distribution Width 12.8 10.0-14.5 % Sodium Level 136 138 135-145 MMOL/L Total Bilirubin 0.6 0.6 0.1-1.0 MG/DL Total Protein 8.1 6.5 6.4-8.2 G/DL Troponin I < 0.30 < 0.30 < 0.30 <0.30 NG/ML White Blood Count 7.7 4.3-11.0 10^3/uL Glucometer 120 H 70-110 MG/DL Amylase Level 112 25-125 U/L Cholesterol Level 116 < 200 MG/DL HDL Cholesterol 29 L 40-60 MG/DL LDL Cholesterol Direct 75 1-129 MG/DL Triglycerides Level 95 <150 MG/DL VLDL Cholesterol 19 5-40 MG/DL Radiology CXR 12/22/16 with no acute abnormality Physical Exam-(CHC) Physical Exam Vital Signs VS - Last 72 Hours, by Label 12/22/16 12/22/16 12/22/16 12/22/16 16:20 16:20 16:25 18:25 Temp 97.4 Pulse 84 84 Resp 16 16 B/P 135/76 Pulse Ox 99 96 O2 Delivery Room Air Room Air FiO2 100 12/22/16 12/22/16 12/22/16 12/23/16 19:51 20:00 21:00 00:00 Temp 99.2 97.2 Pulse 78 66 Resp 20 12 B/P 138/83 137/61 Pulse Ox 96 98 99 O2 Delivery Room Air Room Air Room Air Room Air 12/23/16 12/23/16 04:00 08:00 Temp 96.6 98.3 Pulse 70 77 Resp 12 12 B/P 115/56 139/66 Pulse Ox 100 98 O2 Delivery Room Air Room Air Capillary Refill : Less Than 3 Seconds General Appearance: WD/WN no apparent distress Respiratory: chest non-tender lungs clear normal breath sounds Cardiovascular: regular rate, rhythm no murmur Gastrointestinal: normal bowel sounds non tender soft Extremities: no pedal edema Neurologic/Psychiatric: alert normal mood/affect Skin: rash (few scabbed lesions on forearms and many hypopigmented areas on forearms she describes as scarring) Assessment/Plan Assessment/Plan Admission Dx 1. Chest pain 2. Elevated lipase 3. Elevated AST/ALT Plan 1. Chest pain- troponin normal x 2, no EKG changes -Cardiology consulted 2. Elevated lipase- returned to normal on recheck, possible transient pancreatitis leading to pain episode 3. Elevated AST/ALT- mildly elevated, likely due to fatty infiltration of liver which was noted [place] [address] and has had intermittent elevations -Hepatitis panel was checked in past and negative but Hep B surface antigen not done, consider repeat outpatient 4. Chronic medical conditions (DMII, HTN, HLD, mood disorder)- resume home medications DVT ppx- SCDs, enoxaparin Diagnosis/Problems: Clinical Quality Measures AMI/AHF: ASA po Prior to arrival: No Copy Copies To 1: JOSSE Brannon BETHANY N MD Dec 23, 2016 9:29 am
[2016-12-23] MEDS: CATHETER FLUSH 10 ML SYR IV PRN (11:23)
[2016-12-23] MEDS ORDERED: ASPIRIN E.C. 81 MG (ECOTRIN) TAB PO SCH (11:30)
[2016-12-23] MEDS ORDERED: ENOXAPARIN 40 MG/0.4 ML (LOVENOX) SYR SC SCH (11:30)
[2016-12-23] MEDS ORDERED: FLUTICASONE NASAL SPRAY (FLONASE) 16 GM BTL NS PRN (11:30)
[2016-12-23] MEDS ORDERED: RT-ALBUTEROL SULF 2.5 MG/3 ML PRE-MIX VIAL INH PRN (11:30)
[2016-12-23] MEDS ORDERED: REGADENOSON 0.4 MG/5 ML SYR (LEXISCAN) IV ONE ×2 (12:48→13:15)
[2016-12-23] MEDS ORDERED: NON-FORMULARY MEDICATION 1 EA EA (Liraglutide (Victoza 3-Pak) 1.8 MG) SQ SCH (21:00)
[2016-12-23] MEDS ORDERED: ATORVASTATIN 40 MG (LIPITOR) TABLET PO SCH (21:00)
[2016-12-23] MEDS ORDERED: inSUlin DETERMIR 1 UNIT/0.01 ML (LEVEMIR) CHARGE PER UNIT SQ SCH (21:00)
[2016-12-23] MEDS ORDERED: LORATADINE (CLARITIN) 10 MG TAB PO SCH (21:00)
--- NOTE | 2016-12-24 07:54 | STRESS TEST ---
PROCEDURE PHYSICIAN: KETAN ADAMS DATE OF PROCEDURE: 12/23/2016 LEXISCAN MYOVIEW STRESS TEST REPORT: REFERRING PHYSICIAN: [facility]. INDICATION FOR THE PROCEDURE: Chest pain. BASELINE HEART RATE: 66 BASELINE BLOOD PRESSURE: 147/76 BASELINE EKG: Sinus rhythm with no ischemic changes. IN SUMMARY: The patient was injected with 10.83 mCi of technetium 99 Myoview and the resting images were obtained. Then the patient received 0.4 mg of Lexiscan followed by 28.5 mCi of technetium 99 Myoview. Throughout the test, there were no EKG changes. The resting and stress images were reviewed and compared in the short axis, horizontal long axis, and vertical long axis views. Review of the images showed breast attenuation affecting the quality of the images. There was no significant ischemia or infarction on SPECT images. SSS is 0. TID value 1.01. On the gated images, the left ventricle appeared to be normal size with normal contractility. Calculated ejection fraction 62%. IN CONCLUSION: 1. The patient tolerated Lexiscan well. 2. Breast attenuation with typical female pattern. No significant ischemia or infarction on SPECT images. 3. Normal left ventricular size with normal contractility. Calculated ejection fraction 62%. Job ID: [id number] Dictated Date: 12/23/2016 18:23:05 Truck Spotter Date: 12/24/2016 07:52:10 / yared
[2017-01-26] MEDS ORDERED: PANT40TA2 PO (10:53)
[2017-01-26] MEDS ORDERED: SUCR1TAB36 PO (10:53)
== END 2016-12-23 17:34 | disposition home or self-care (01) ==
LOC: EDUNIT# 16:19 → ER 16:21 → 4TH 17:43 → UNDOADMOB 17:43 → 4TH 18:45
PROVIDERS: ADMIT Family Medicine; ATTEND Family Medicine
DX: R07.9 Chest pain, unspecified (principal); R74.8 Abnormal levels of other serum enzymes; I25.10 Atherosclerotic heart disease of native coronary artery without angina pectoris; E11.65 Type 2 diabetes mellitus with hyperglycemia; E11.40 Type 2 diabetes mellitus with diabetic neuropathy, unspecified; I12.9 Hypertensive chronic kidney disease with stage 1 through stage 4 chronic kidney disease, or unspecified chronic kidney disease; N18.9 Chronic kidney disease, unspecified; E78.5 Hyperlipidemia, unspecified; G89.29 Other chronic pain; K21.9 Gastro-esophageal reflux disease without esophagitis; F39 Unspecified mood [affective] disorder; Z87.891 Personal history of nicotine dependence
CPT/HCPCS: 36415; 71010; 78452; 80053; 80061; 82150; 82962; 83690; 83735; 83874; 84484; 85025; 85610; 85730; 93005; 93017; 93041; 96374; 96375; G0378

== ENCOUNTER 2017-01-21 06:55 | Outpatient (CLI) | payer MEDICAID ==
[~2017-01-21] VITALS: Ht 170.2 cm; Wt 84.8 kg
[~2017-01-21 06:55] MED LIST changes: +CYANOCOBALAMIN PO; +LIRA0.6P3 SQ; +VITAMIN C PO
== END 2017-01-21 14:45 ==
LOC: PREOP 06:55
PROVIDERS: ATTEND Surgery
DX: Z01.818 Encounter for other preprocedural examination (principal); R10.13 Epigastric pain; R11.2 Nausea with vomiting, unspecified

== ENCOUNTER 2017-01-26 09:17 | Day surgery (SDC) | payer MEDICAID ==
[~2017-01-26] VITALS: Ht 170.2 cm; Wt 84.8 kg
[2017-01-26] MEDS ORDERED: NS IV 1000 ML 1,000 ML ONE (09:25)
[2017-01-26] MEDS ORDERED: NS IV 1000 ML 1,000 ML IV STA (09:33)
[2017-01-26 09:40] VITALS: BP 125/85
[2017-01-26] MEDS ORDERED: proPOfol 200 MG/20 ML (DIPRIVAN) VIAL IV ONE (09:42)
[2017-01-26] MEDS ORDERED: MIDAZOLAM 2 MG/2 ML (VERSED) VIAL ONE ×2 (09:42)
[2017-01-26] MEDS ORDERED: NALOXONE 0.4 MG/ML 1 ML (NARCAN) VIAL IVP PRN (09:45)
[2017-01-26] MEDS ORDERED: FLUMAZENIL (ROMAZICON) 0.1 MG/ML 5 ML VIAL INJ PRN (09:45)
--- NOTE | 2017-01-26 10:35 | Progress Note-Pre Operative ---
Pre-Operative Progress Note H&P Reviewed The H&P was reviewed, patient examined and no changes noted. Date H&P Reviewed: Jan 26, 2017 Time H&P Reviewed: 10:35 Pre-Operative Diagnosis: epigastric pain nausea vomiting LINDA MANSFIELD DO Jan 26, 2017 10:35 am
--- NOTE | 2017-01-26 10:52 | Progress Note-Post Operative ---
Post-Operative Progess Note Pre-Operative Diagnosis epigastric pain nausea vomiting Post-Operative Diagnosis gastritis, esophagitis Post-Op Procedure Note Date of Procedure: Jan 26, 2017 Name of Procedure: egd c biopsies Procedure Note/Findings see note Anesthesia Type per RETAIL STORE CLERK Estimated blood loss (mL): none Specimen(s) collected antrum body and distal esophagus LINDA MANSFIELD DO Jan 26, 2017 10:52 am
[2017-01-26] MEDS ORDERED: SUCR1TAB36 PO (10:53)
[2017-01-26] MEDS ORDERED: PANT40TA2 PO (10:53)
--- NOTE | 2017-01-26 10:54 | Discharge Inst-Simple/Standard ---
Discharge Inst-Standard Discharge Medications New, Converted or Re-Newed RX: Transmitted to Pharmacy Patient Instructions/Follow Up Plan of Care/Instructions/FU: 2-3 weeks Brigette Activity as Tolerated: Yes Discharge Diet: Regular Diet LINDA MANSFIELD DO Jan 26, 2017 10:54 am
--- NOTE | 2017-01-26 11:15 | PROCEDURE REPORT ---
PROCEDURE PHYSICIAN: LINDA MANSFIELD DATE OF PROCEDURE: 01/26/2017 PREOPERATIVE DIAGNOSIS: Epigastric abdominal pain, nausea and vomiting. POSTOPERATIVE DIAGNOSES: 1. Gastritis. 2. Esophagitis. PROCEDURE: EGD with biopsies. SURGEON: Brigette. ANESTHESIA: Per HEELER MACHINE. ESTIMATED BLOOD LOSS: None. COMPLICATIONS: None Biopsies antrum, body and distal esophagus. INDICATIONS: The patient is a 56-year-old female who has been having epigastric abdominal pain, nausea and vomiting. She understands the risks and benefits of procedure; she wishes to proceed with the procedure. Consent was signed on chart. PROCEDURE: The patient was taken to the endoscopy suite, placed in left lateral recumbent position. Timeout was performed. The scope was then inserted in the mouth, down the esophagus, stomach and into the duodenum without difficulty. There were no polyps, masses, ulcerations or in the duodenum. The scope was slowly retracted back to the stomach. Slight erythematous changes of the antrum and also once retroflexed along the body, significant erythematous changes of the body. There was no hiatal hernia. There were no polyps, masses, ulcerations. Biopsy of the body was obtained. Biopsy of the antrum was also obtained. The scope was slowly retracted back to the distal esophagus, which a slight small area of erythematous changes which biopsy of the distal esophagus was obtained. There were no other polyps, masses or ulcerations. The scope was slowly retracted back until completely removed. The patient tolerated the procedure well without any complications and taken to the recovery room in stable condition. RECOMMENDATIONS: The patient will be placed on Protonix 40 mg daily and Carafate 1 gram 4 times a day. We will see her back in the office in 2 to 3 weeks and see how she is doing and discuss pathology results. If she has any problems prior to that, she should be reevaluated at that time. Job ID: [id number] Dictated Date: 01/26/2017 10:56:33 Perennial House Manager Date: 01/26/2017 11:08:45 / eddie
[2017-01-26 11:20] VITALS: BP 143/79
[2017-01-26 11:35] VITALS: BP 130/78
[2017-01-26 11:51] VITALS: BP 130/78
== END 2017-01-26 11:45 | disposition home or self-care (01) ==
LOC: ENDO 09:17
PROVIDERS: ATTEND Surgery
DX: K29.70 Gastritis, unspecified, without bleeding (principal); K20.9 Esophagitis, unspecified; E11.9 Type 2 diabetes mellitus without complications; Z79.4 Long term (current) 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
CPT/HCPCS: 82962; 88305

== ENCOUNTER → 2017-02-10 | Outpatient (CLI) | payer MEDICAID ==
[~2017-02-10] MED LIST changes: +PANT40TA2 PO; +SUCR1TAB36 PO
--- NOTE | 2017-02-10 19:24 | Diagnostic Imaging Report ---
EXAMINATION: Digital mammogram bilateral screening. INDICATION: Screening. COMPARISON: This study was compared to the prior exam of 01/31/2015. At this time, there are no current complaints. The current study was also evaluated with a Computer Aided Detection (CAD) system. FINDINGS: The fibroglandular tissue in both breasts is heterogeneously dense. This does limit the sensitivity of this exam. There does not seem to have been any significant change when compared to the prior study on the CC and MLO views. However, on the XCC view of left breast, there is a small 5 mm area of increased density in the medial aspect of the breast, roughly 4 cm from the nipple. This finding is difficult to identify with certainty on the CC and MLO views. It is unlikely that this is related to a malignant process. Even so, a compression view of this area would be recommended in this XCC projection for further study. Ultrasound of this portion of the left breast should also be performed. The right breast is stable in appearance. IMPRESSION: Additional mammographic views and ultrasound of the left breast would be recommended for further study. ACR BI-RADS Category 0: Incomplete. (Needs additional imaging evaluation). Result letter will be mailed to the patient. Note: At least 10% of breast cancer is not imaged by mammography. Dictated by: Dictated on workstation # [id number]
== END ==
LOC: RAD 08:34
PROVIDERS: ATTEND Nurse Practitioner Family
DX: Z12.31 Encounter for screening mammogram for malignant neoplasm of breast (principal)
CPT/HCPCS: 77067

== ENCOUNTER → 2017-03-08 | Outpatient (CLI) | payer MEDICAID ==
--- NOTE | 2017-03-08 17:35 | Diagnostic Imaging Report ---
EXAMINATION: Left breast diagnostic mammogram. The current study was also evaluated with a Computer Aided Detection (CAD) system. INDICATION: Small medial left breast asymmetry measuring 4 mm in size. FINDINGS: The area of asymmetry is persistent on focal compression evaluation with no definitive correlate on the true lateral view. IMPRESSION: Persistent nonspecific 4 mm asymmetry in the medial aspect of the left breast. Ultrasound evaluation pending. ACR BI-RADS Category 0: Incomplete. (Needs additional imaging evaluation). Result letter will be mailed to the patient. Note: At least 10% of breast cancer is not imaged by mammography. Dictated by: Dictated on workstation # [id number]
--- NOTE | 2017-03-08 18:21 | Diagnostic Imaging Report ---
EXAM: Left breast ultrasound. INDICATION: Asymmetry in the mid aspect of the left breast. FINDINGS: The medial aspect of the left breast is scanned with no underlying abnormality seen. IMPRESSION: Negative study. The small asymmetry seen in the mid aspect of the left breast may relate to summation artifact of parenchyma. Left breast mammogram in 6 months is recommended for re-evaluation. BI-RADS 3. ACR BI-RADS Category 3: Probably benign findings. Result letter will be mailed to the patient. Note: At least 10% of breast cancer is not imaged by mammography. Dictated by: Dictated on workstation # [id number]
== END ==
LOC: RAD 13:44
PROVIDERS: ATTEND Nurse Practitioner Family
DX: N64.89 Other specified disorders of breast (principal)
CPT/HCPCS: 76642

== ENCOUNTER → 2017-05-28 | Outpatient (CLI) | payer MEDICAID ==
--- NOTE | 2017-05-28 15:32 | Diagnostic Imaging Report ---
PROCEDURE: CT head and CT cervical spine without contrast. TECHNIQUE: Multiple contiguous axial images were obtained through the brain and cervical spine without the use of intravenous contrast. Sagittal and coronal reformations through the cervical spine were then performed. INDICATION: Loss of consciousness with head trauma and neck pain. COMPARISON: 06/13/2016. FINDINGS: CT head: No hyperdense hemorrhage or space-occupying mass. No hydrocephalus or midline shift. Mays-white matter differentiation is preserved. Basilar cisterns are well maintained. Asymmetric scalp swelling in the left frontotemporal region. No acute skull fracture. Paranasal sinuses are clear. Under pneumatization of the bilateral mastoid air cells. CT cervical spine: No acute fracture or traumatic malalignment. No high-grade spinal stenosis or foraminal narrowing in the cervical spine by non-myelogram CT. Multilevel degenerative disc disease results in small posterior disc osteophyte complex at C5-C6 and C6-C7. No paravertebral hematoma. Lung apices are clear. No apical pneumothorax. No cervical lymphadenopathy. IMPRESSION: 1. No acute intracranial process or skull fracture. 2. No acute fracture or traumatic malalignment of the cervical spine. Dictated by: Dictated on workstation # [id number]
--- NOTE | 2017-05-28 15:32 | Diagnostic Imaging Report ---
INDICATION: Left facial pain after fall. COMPARISON: None available. TECHNIQUE: Three views of the skull were obtained. FINDINGS AND IMPRESSION: No depressed skull fracture. No discrete mandibular fracture. Dictated by: Dictated on workstation # [id number]
== END ==
LOC: RAD 14:29
PROVIDERS: ATTEND Family Medicine
DX: M54.2 Cervicalgia (principal); R51 Headache; S09.90XA Unspecified injury of head, initial encounter; X58.XXXA Exposure to other specified factors, initial encounter; Y99.8 Other external cause status
CPT/HCPCS: 70250; 70450; 72125

== ENCOUNTER → 2017-10-27 | Outpatient (CLI) | payer MEDICAID ==
--- NOTE | 2017-10-27 13:23 | Diagnostic Imaging Report ---
INDICATION: Renal insufficiency. TECHNIQUE: Bilateral renal sonography performed in routine fashion. FINDINGS: The right kidney measured 10.7 x 3.7 x 4.6 cm. Left kidney measured 9.6 x 4.3 x 3.3 cm. Both kidneys show normal cortical thickness and echogenicity with no mass or hydronephrosis. Urinary bladder appears grossly unremarkable with bilateral ureteral jets. IMPRESSION: Unremarkable bilateral renal sonography. Dictated by: Dictated on workstation # [id number]
== END ==
LOC: RAD 11:46
PROVIDERS: ATTEND Nurse Practitioner Family
DX: N28.9 Disorder of kidney and ureter, unspecified (principal); E11.42 Type 2 diabetes mellitus with diabetic polyneuropathy
CPT/HCPCS: 76770

== ENCOUNTER → 2018-03-29 | Outpatient (CLI) | payer MEDICAID ==
[~2018-03-29] MED LIST changes: +METF10002 PO
[2018-03-29 09:12] LABS: BILIRUBIN,URINE NEGATIVE (NEGATIVE); CLARITY,URINE CLEAR; COLOR,URINE YELLOW; GLUCOSE, URINE (UA) 4+ (NEGATIVE); KETONES,URINE NEGATIVE (NEGATIVE); LEUKOCYTE ESTERASE ,URINE 1+ (NEGATIVE); NITRITE,URINE NEGATIVE (NEGATIVE); PH,URINE 5 (5-9); PROTEIN,URINE NEGATIVE (NEGATIVE); UROBILINOGEN,URINE NORMAL (NORMAL)
[2018-03-29 09:20] LABS: BACTERIA,URINE NEGATIVE /HPF; SQUAMOUS EPITHELIAL CELL,UR 0-2 /HPF
[2018-03-29 09:21] LABS: BASOPHILS # (AUTO) 0.1 10^3/uL (0.0-0.1); BASOPHILS % (AUTO) 1 % (0-10); EOSINOPHILS # (AUTO) 0.4 10^3/uL (0.0-0.3); EOSINOPHILS % (AUTO) 6 % (0-10); HEMATOCRIT 34 % (35-52); HEMOGLOBIN 11.2 G/DL (11.5-16.0); LYMPHOCYTES # (AUTO) 2.2 X 10^3 (1.0-4.0); LYMPHOCYTES % (AUTO) 31 % (12-44); MEAN CORPUSCULAR HEMOGLOBIN 29 PG (25-34); MEAN CORPUSCULAR HGB CONC 33 G/DL (32-36); MEAN CORPUSCULAR VOLUME 89 FL (80-99); MONOCYTES # (AUTO) 0.5 X 10^3 (0.0-1.0); MONOCYTES % (AUTO) 7 % (0-12); NEUTROPHILS # (AUTO) 3.8 X 10^3 (1.8-7.8); NEUTROPHILS % (AUTO) 55 % (42-75); PLATELET COUNT 246 10^3/uL (130-400); RED BLOOD COUNT 3.82 10^6/uL (4.35-5.85); RED CELL DISTRIBUTION WIDTH 13.3 % (10.0-14.5); WHITE BLOOD COUNT 6.9 10^3/uL (4.3-11.0)
[2018-03-29 09:29] LABS: URINE CREATININE FOR RATIO 48 MG/DL (30-125); URINE PROTEIN FOR RATIO ONLY < 6 MG/DL (6-12)
[2018-03-29 09:31] LABS: CALCIUM 9.3 MG/DL (8.5-10.1); CREATININE SERUM 1.11 MG/DL (0.60-1.30); POTASSIUM 3.6 MMOL/L (3.6-5.0); URIC ACID 7.1 MG/DL (2.6-7.2)
== END ==
LOC: LAB 08:43
PROVIDERS: ATTEND Internal Medicine Nephrology
DX: I12.9 Hypertensive chronic kidney disease with stage 1 through stage 4 chronic kidney disease, or unspecified chronic kidney disease (principal); N18.3 Chronic kidney disease, stage 3 (moderate); D50.9 Iron deficiency anemia, unspecified; E55.9 Vitamin D deficiency, unspecified
CPT/HCPCS: 36415; 80069; 81000; 82306; 82570; 82728; 83540; 83970; 84156; 84550; 85025

== ENCOUNTER 2018-04-21 21:38 | Emergency (ER) | payer MEDICAID ==
[~2018-04-21] VITALS: Ht 170.2 cm; Wt 92.5 kg
--- OUTSIDE RECORDS SUMMARY | 2018-04-21 21:44 | XMS REPORT ---
Author Author JUDY CASTLE Organization [facility] Address [address] [place] [address] Care Team Providers Care Restaurant Recruiter Name Role Phone JUDY CASTLE Unavailable PROBLEMS Type Condition ICD9-CM Code DCJ89-SZ Code Onset Dates Condition Status SNOMED Code Problem Dyslipidemia E78.5 Active 873481949 Problem Depression, unspecified depression type F32.9 Active 23444165 Problem Diabetes type 2, uncontrolled E11.65 Active 670862526 Assessment Eustachian tube dysfunction, left H69.82 Jul, Active 47894589 Problem Generalized anxiety disorder F41.1 Active 54485236 Problem Sleep disturbance G47.9 Active 39575134 Problem Episodic mood disorder F39 Active 31234874 Problem Syncope, unspecified syncope type R55 Active 631340048 Problem Polyneuropathy associated with underlying disease G63 Active 975496922 Problem Lumbago with sciatica, left side M54.42 Active 750515320 Problem Other chronic pain G89.29 Active 37174516 Problem Other seasonal allergic rhinitis J30.2 Active 307330380 Problem Lumbago with sciatica, right side M54.41 Active 797852655 ALLERGIES Substance Reaction Event Type Date Status Codeine Phosphate dizziness Drug Allergy Jul, Active dental metal rash Non Drug Allergy Jul, Active SOCIAL HISTORY No smoking Hx information available PLAN OF CARE VITAL SIGNS Height 67.7 in 2016-07-16 Weight 190.0 lbs 2016-07-16 Heart Rate 78 bpm 2016-07-16 Respiratory Rate 20 2016-07-16 BMI 29.14 kg/m2 2016-07-16 Blood pressure systolic 120 mmHg 2016-07-16 Blood pressure diastolic 78 mmHg 2016-07-16 MEDICATIONS Medication Instructions Dosage Frequency Start Date End Date Duration Status Lipitor 10 MG Orally Once a day 1 tablet 24h Jan, Active Albuterol Sulfate 90 mcg/actuation Inhalation every 4- 6 hrs prn cough, shortness of breath or wheezing 2 puffs Dec, Active Vitamin B-12 100 MCG Orally Once a day 1 tablet 24h Active Trutest Blood Glucose Meter Active Levemir 100 UNIT/ML Subcutaneous 2 times a day inject 60U in am and 75U at HS 12h Dec, Active Gabapentin 400MG Orally at bedtime 1 tablet Active PredniSONE 10 mg Orally twice a day 1 tablet 12h Jul, Jul, 05 days Active Trutest Blood Glucose Test Strip Active Cetirizine HCl 10MG TAKE ONE TABLET BY MOUTH ONCE DAILY 30 Active Cymbalta 60 mg Orally Once a day 1 capsule 24h 30 Jul, 2015 Active Polysaccharide Iron Complex 150 MG Orally 2 times a day 1 capsule 12h May, Active Metformin HCl 1000MG Orally 2 times a day 1 tablet 12h Active Victoza 18MG/3ML Subcutaneous Once a day 1.8mg 24h Active RESULTS No Results PROCEDURES Procedure Date Ordered Related Diagnosis Body Site Office Visit, Est Pt., Level 3 Jul 16, 2016 IMMUNIZATIONS No Known Immunizations
--- OUTSIDE RECORDS SUMMARY | 2018-04-21 21:44 | XMS REPORT ---
Author JCARLOS Juan [facility] eClinicalWorks Address Unknown Phone Unavailable Care Team Providers Care Power Marketer Name Role Phone JCARLOS MUNOZ CP Unavailable Allergies, Adverse Reactions, Alerts Substance Reaction Event Type Codeine Phosphate dizziness Drug Allergy dental metal rash Non Drug Allergy Problems Problem Type Condition Code Onset Dates Condition Status Assessment Encounter for dental examination Z01.20 Active Problem Dysfunction of Eustachian tube 381.81 Active Problem Generalized anxiety disorder 300.02 Active Problem Urinary tract infection 599.0 Active Problem Hyperlipidemia 272.4 Active Problem Diabetes type 2, uncontrolled E11.65 Active Problem Unspecified sleep disturbance 780.50 Active Problem Bipolar disorder, unspecified 296.80 Active Problem Diabetes mellitus type 2, uncontrolled 250.02 Active Problem Unspecified episodic mood disorder 296.90 Active Medications Medication Code System Code Instructions Start Date End Date Status Dosage Gabapentin [facility] [address]-81 400 mg Dec 18, 2014 take 1 capsule by Oral route 1 time per day at bedtime Abilify [facility] [address]-51 10 MG Orally Once a day Aug 07, 2015 1 tablet Metformin HCl [facility] 45547579745 1000MG TAKE ONE TABLET BY MOUTH TWICE DAILY Vitamin B-12 [facility] [address]-62 100 MCG Orally Once a day 1 tablet Albuterol Sulfate [facility] [address]-06 90 mcg/actuation Inhalation every 4- 6 hrs prn cough, shortness of breath or wheezing Dec 12, 2013 2 puffs Nexium [facility] [address]-09 20 MG Orally Once a day 1 capsule Montelukast Sodium [facility] 76678656038 10MG TAKE ONE TABLET BY MOUTH ONCE DAILY IN THE EVENING Victoza [facility] 17372666258 18MG/3ML Subcutaneous Once a day 1.8mg Levemir [facility] [address]-59 100 UNIT/ML Subcutaneous 2 times a day Dec 24, 2014 inject 60U in am and 75U at HS Cymbalta [facility] [address]-34 60 MG Orally Once a day Aug 07, 2015 1 capsule Cymbalta [facility] [address]-43 60 MG Sep 17, 2014 take 1 capsule (60 mg) by oral route once daily metformin [facility] [address]-11 1,000 mg January 17, 2015 Take 1 tablet by Oral route 2 times per day Atorvastatin Calcium [facility] [address]-52 not defined Procedures Procedure Coding System Code Date VERTICAL BITEWINGS - 7 TO 8 FILMS CPT-4 D0277 Nov 28, 2015 PROPHYLAXIS - ADULT CPT-4 D1110 Nov 28, 2015 COMP ORAL EVALUATION - NEW/EST PT CPT-4 D0150 Nov 28, 2015 TOPICAL FLUORIDE VARNISH CPT-4 D1206 Nov 28, 2015 Vital Signs Date/Time: Nov 28, 2015 Blood Pressure Diastolic 79 mmHg Blood Pressure Systolic 126 mmHg Cardiac Monitoring Heart Rate 61 bpm Results No Known Results Summary Purpose eClinicalWorks Submission
--- OUTSIDE RECORDS SUMMARY | 2018-04-21 21:45 | XMS REPORT ---
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 Active 531006147 Problem Other seasonal allergic rhinitis J30.2 Active 160449264 Problem Lumbago with sciatica, right side M54.41 Active 551436218 Problem Syncope, unspecified syncope type R55 Active 514536862 Problem Polyneuropathy associated with underlying disease G63 Active 298190604 Assessment Encounter for immunization Z23 Oct, Active 333839923 Assessment Screening for breast cancer Z12.39 Oct, Active 708007781 Problem Sleep disturbance G47.9 Active 74111005 Problem Episodic mood disorder F39 Active 25766802 Assessment Well woman exam Z01.419 Oct, Active 853793644 Problem Dyslipidemia E78.5 Active 954716500 Problem Generalized anxiety disorder F41.1 Active 38868156 Problem Diabetes type 2, uncontrolled E11.65 Active 242983006 ALLERGIES Substance Reaction Event Type Date Status Codeine Phosphate dizziness Drug Allergy Oct, Active dental metal rash Non Drug Allergy Oct, Active SOCIAL HISTORY No smoking Hx information available PLAN OF CARE Activity Details Pending Test Mammogram, Bilateral Screening Need 3 mo f/u with PCP Tameka,Reason: VITAL SIGNS Height 67.7 in 2016-10-08 Weight 191.2 lbs 2016-10-08 Heart Rate 72 bpm 2016-10-08 Respiratory Rate 18 2016-10-08 BMI 29.33 kg/m2 2016-10-08 Blood pressure systolic 118 mmHg 2016-10-08 Blood pressure diastolic 76 mmHg 2016-10-08 MEDICATIONS Medication Instructions Dosage Frequency Start Date End Date Duration Status Gabapentin 400MG Orally at bedtime 1 tablet 30 Active Trutest Blood Glucose Meter Active Albuterol Sulfate 90 mcg/actuation Inhalation every 4- 6 hrs prn cough, shortness of breath or wheezing 2 puffs Dec, Active Trutest Blood Glucose Test Strip Active Multivitamin Adult - Active Ventolin HFA 108MCG/A INHALE 2 PUFFS BY MOUTH EVERY 4 TO 6 HOURS NEEDED FOR COUGH, SHORTNESS OF BREATH, AND/OR WHEEZING. 30 Active Lipitor 10 MG Orally Once a day 1 tablet 24h Jan, Active Metformin HCl 1000MG 1 tablet 2 times a day Orally 30 Active Cetirizine HCl 10MG TAKE ONE TABLET BY MOUTH ONCE DAILY 30 Active Vitamin B-12 100 MCG Orally Once a day 1 tablet 24h Active Cymbalta 60 mg Orally Once a day 1 capsule 24h 30 Jul, 2015 Active Levemir 100 UNIT/ML Subcutaneous 2 times a day inject 60U in am and 75U at HS 12h Dec, Active Victoza 18MG/3ML Subcutaneous Once a day 1.8mg 24h 30 Active RESULTS No Results PROCEDURES Procedure Date Ordered Related Diagnosis Body Site PCV 13 Oct 08, 2016 SINGLE IMMUNIZATION ADMIN Oct 08, 2016 Preventive Care Est Pt. Age 40-64 Oct 08, 2016 IMMUNIZATIONS Vaccine Route Administration Date Status PCV 13 IM Intramuscular Oct 08, 2016 Administered
--- OUTSIDE RECORDS SUMMARY | 2018-04-21 21:45 | XMS REPORT ---
Author GWEN Grier [facility] eClinicalWorks Address Unknown Phone Unavailable Care Team Providers Care Chief Human Resources Officer Name Role Phone GWEN GROSS CP Unavailable Allergies, Adverse Reactions, Alerts Substance Reaction Event Type Codeine Phosphate dizziness Drug Allergy dental metal rash Non Drug Allergy Problems Problem Type Condition Code Onset Dates Condition Status Assessment Dental examination Z01.20 Active Problem Dysfunction of Eustachian [...] Instructions Start Date End Date Status Dosage Levemir [facility] [address]-05 100 UNIT/ML Subcutaneous 2 times a day Dec 24, 2014 inject 60U in am and 75U at HS metformin [facility] [address]-21 1,000 mg January 17, 2015 Take 1 tablet by Oral route 2 times per day Cetirizine HCl [facility] 09848564060 10MG TAKE ONE TABLET BY MOUTH ONCE DAILY Singulair [facility] [address]-93 10 MG Orally Once a day 1 tablet in the evening Cymbalta [facility] [address]-24 60 MG Orally Once a day Aug 07, 2015 1 capsule Nexium [facility] [address]-53 20 MG Orally Once a day 1 capsule Polysaccharide Iron Complex [facility] [address]-46 150 MG Orally 2 times a day May 23, 2015 1 capsule Montelukast Sodium [facility] 93620289607 10MG TAKE ONE TABLET BY MOUTH ONCE DAILY IN THE EVENING Embrace Blood Glucose Test ND 0 not defined Vitamin B-12 [facility] [address]-31 100 MCG Orally Once a day 1 tablet Cymbalta [facility] [address]-73 60 MG Sep 17, 2014 take 1 capsule (60 mg) by oral route once daily Albuterol Sulfate [facility] [address]-80 90 mcg/actuation Inhalation every 4- 6 hrs prn cough, shortness of breath or wheezing Dec 12, 2013 2 puffs Atorvastatin Calcium [facility] [address]-50 not defined Triamcinolone Acetonide [facility] [address]-75 0.5 % Externally Twice a day Jul 01, 2015 1 application to affected area Gabapentin [facility] [address]-90 400 mg Dec 18, 2014 take 1 capsule by Oral route 1 time per day at bedtime Victoza [facility] 81480900125 18MG/3ML Subcutaneous Once a day 1.8mg Abilify [facility] [address]-47 10 MG Orally Once a day Aug 07, 2015 1 tablet Procedures Procedure Coding System Code Date Billing Notes on claim CPT-4 EC109 Nov 11, 2015 No Charge CPT-4 07023 Nov 11, 2015 Vital Signs Date/Time: Nov 11, 2015 Blood Pressure Diastolic 77 mmHg Blood Pressure Systolic 119 mmHg Results No Known Results Summary Purpose eClinicalWorks Submission
--- OUTSIDE RECORDS SUMMARY | 2018-04-21 21:45 | XMS REPORT ---
Author Author TILA ZUNIGA [facility] eClinicalWorks Address Unknown Phone Unavailable Care Team Providers Care Qual Research Manager Name Role Phone TILA ZUNIGA Unavailable Allergies, Adverse Reactions, Alerts Substance Reaction Event Type Codeine Phosphate dizziness Drug Allergy dental metal rash Non Drug Allergy Problems Problem Type Condition Code Onset Dates Condition Status Assessment Encounter for dental examination Z01.20 Active Problem Dysfunction of Eustachian tube 381.81 Active Problem Generalized anxiety disorder 300.02 Active Assessment Dental caries, unspecified K02.9 Active Problem Urinary tract infection 599.0 Active Problem Hyperlipidemia 272.4 Active Problem Diabetes type 2, uncontrolled E11.65 Active Problem Unspecified sleep disturbance 780.50 Active Problem Bipolar disorder, unspecified 296.80 Active Problem Diabetes mellitus type 2, uncontrolled 250.02 Active Problem Unspecified episodic mood disorder 296.90 Active Medications Medication Code System Code Instructions Start Date End Date Status Dosage Levemir [facility] [address]-43 100 UNIT/ML Subcutaneous 2 times a day Dec 24, 2014 inject 60U in am and 75U at HS Gabapentin [facility] [address]-04 400 mg Dec 18, 2014 take 1 capsule by Oral route 1 time per day at bedtime Embrace Blood Glucose Test ND 0 not defined Nexium [facility] [address]-31 20 MG Orally Once a day 1 capsule Montelukast Sodium [facility] 17323243861 10MG TAKE ONE TABLET BY MOUTH ONCE DAILY IN THE EVENING Victoza [facility] 64521620021 18MG/3ML Subcutaneous Once a day 1.8mg metformin [facility] [address]-07 1,000 mg January 17, 2015 Take 1 tablet by Oral route 2 times per day Albuterol Sulfate [facility] [address]-46 90 mcg/actuation Inhalation every 4- 6 hrs prn cough, shortness of breath or wheezing Dec 12, 2013 2 puffs Atorvastatin Calcium [facility] [address]-54 not defined Cymbalta [facility] [address]-44 60 MG Sep 17, 2014 take 1 capsule (60 mg) by oral route once daily Triamcinolone Acetonide [facility] [address]-26 0.5 % Externally Twice a day Jul 01, 2015 1 application to affected area Polysaccharide Iron Complex [facility] [address]-66 150 MG Orally 2 times a day May 23, 2015 1 capsule Singulair [facility] [address]-73 10 MG Orally Once a day 1 tablet in the evening Vitamin B-12 [facility] [address]-32 100 MCG Orally Once a day 1 tablet Cetirizine HCl [facility] 39603730966 10MG TAKE ONE TABLET BY MOUTH ONCE DAILY [place] [facility] [address]-60 5-325 MG Orally every 6 hrs Sep 23, 2015 Sep 27, 2015 1 tablet as needed Abilify [facility] [address]-06 10 MG Orally Once a day Aug 07, 2015 1 tablet Cymbalta [facility] [address]-82 60 MG Orally Once a day Aug 07, 2015 1 capsule Procedures Procedure Coding System Code Date INTRAORL-PERIAPICAL 1 FILM 47709 CPT-4 D0220 Sep 23, 2015 EXTRAC ERUPTED TOOTH/EXPOSED ROOT CPT-4 D7140 Sep 23, 2015 LTD ORAL EVALUATION - PROBLEM FOCUS CPT-4 D0140 Sep 23, 2015 Vital Signs Date/Time: Sep 23, 2015 Blood Pressure Diastolic 87 mmHg Blood Pressure Systolic 122 mmHg Cardiac Monitoring Heart Rate 72 bpm Results No Known Results Summary Purpose eClinicalWorks Submission
--- OUTSIDE RECORDS SUMMARY | 2018-04-21 21:45 | XMS REPORT ---
Author Author SHAHEEN SOSA [facility] eClinicalWorks Address Unknown Phone Unavailable Care Team Providers Care Program Manager Transportation Name Role Phone SHAHEEN SOSA Unavailable Allergies, Adverse Reactions, Alerts Substance Reaction Event Type Codeine Phosphate dizziness Drug Allergy dental metal rash Non Drug Allergy Problems Problem Type Condition Code Onset Dates Condition Status Problem Generalized anxiety disorder 300.02 Active Assessment Bipolar 2 disorder F31.81 Active Problem Hyperlipidemia 272.4 Active Problem Diabetes mellitus type 2, uncontrolled 250.02 Active Problem Urinary tract infection 599.0 Active Problem Bipolar disorder, unspecified 296.80 Active Problem Dysfunction of Eustachian tube 381.81 Active Problem Unspecified episodic mood disorder 296.90 Active Problem Unspecified sleep disturbance 780.50 Active Medications Medication Code System Code Instructions Start Date End Date Status Dosage Levemir [facility] [address]-82 100 UNIT/ML Subcutaneous 2 times a day Dec 24, 2014 inject 60U in am and 75U at HS Triamcinolone Acetonide [facility] [address]-81 0.5 % Externally Twice a day Jul 01, 2015 1 application to affected area Albuterol Sulfate [facility] [address]-07 90 mcg/actuation Inhalation every 4- 6 hrs prn cough, shortness of breath or wheezing Dec 12, 2013 [facility] 0 Test Strips 3 times a day March 28, 2015 as directed Cymbalta [facility] [address]-71 60 MG Sep 17, 2014 take 1 capsule (60 mg) by oral route once daily Abilify [facility] [address]-01 10 MG Orally Once a day Aug 07, 2015 1 tablet Vitamin B-12 [facility] [address]-14 100 MCG Orally Once a day 1 tablet Cetirizine HCl [facility] 92729744668 10MG TAKE ONE TABLET BY MOUTH ONCE DAILY Trutest Blood Glucose Meter ND 0 March 28, 2015 as directed Gabapentin [facility] [address]-71 400 mg Dec 18, 2014 take 1 capsule by Oral route 1 time per day at bedtime Singulair [facility] [address]-31 10 MG Orally Once a day 1 tablet in the evening Cymbalta [facility] [address]-77 60 MG Orally Once a day Aug 07, 2015 1 capsule Montelukast Sodium [facility] 00110252158 10MG TAKE ONE TABLET BY MOUTH ONCE DAILY IN THE EVENING Nexium [facility] [address]-75 20 MG Orally Once a day 1 capsule Lovastatin [facility] [address]-37 20 MG Orally Once a day April 29, 2015 1 tablet with a meal Victoza [facility] [address]-43 18 MG/3ML Subcutaneous Once a day 1.8mg Polysaccharide Iron Complex [facility] [address]-96 150 MG Orally 2 times a day May 23, 2015 1 capsule metformin [facility] [address]-59 1,000 mg January 17, 2015 Take 1 tablet by Oral route 2 times per day Procedures Procedure Coding System Code Date Office Visit, Est Pt., Level 3 CPT-4 53410 Sep 18, 2015 Vital Signs Date/Time: Sep 18, 2015 Temperature 98.5 F Weight 189.0 lbs Height 67.7 in BMI 28.99 Index Blood Pressure Diastolic 72 mmHg Blood Pressure Systolic 116 mmHg Cardiac Monitoring Heart Rate 72 bpm Results No Known Results Summary Purpose eClinicalWorks Submission
--- OUTSIDE RECORDS SUMMARY | 2018-04-21 21:45 | XMS REPORT ---
Author Author ADARSH OSWALDO Organization [facility] Address [address] [place] [address] Care Team Providers Care Auto Body Worker Name Role Phone ALTAMIRANOOSWALDO Antonio Unavailable PROBLEMS Type Condition ICD9-CM Code AKB59-PR Code Onset Dates Condition Status SNOMED Code Problem Polyneuropathy associated with underlying disease G63 Active 505962907 Problem Lumbago with sciatica, left side M54.42 Active 725263418 Problem Syncope, unspecified syncope type R55 Active 790705573 Problem Abnormal mammogram R92.8 Active 027362762 Problem Type 2 diabetes mellitus with diabetic polyneuropathy E11.42 Active 80582354 Problem Other seasonal allergic rhinitis J30.2 Active 830088212 Problem Lumbago with sciatica, right side M54.41 Active 502364548 Problem [facility] 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 Active 752413578 Problem Other chronic pain G89.29 Active 67408423 Problem Generalized anxiety disorder F41.1 Active 94619077 Problem Low serum HDL R74.8 Active 917048658 Problem Episodic mood disorder F39 Active 90651238 Problem Sleep disturbance G47.9 Active 46036872 Problem Dyslipidemia E78.5 Active 608624294 Problem Serum creatinine raised R79.89 Active 691276839 Problem Depression, unspecified depression type F32.9 Active 50936754 ALLERGIES No Information SOCIAL HISTORY Never Assessed PLAN OF CARE VITAL SIGNS MEDICATIONS Unknown Medications RESULTS No Results PROCEDURES No Known procedures IMMUNIZATIONS No Known Immunizations MEDICAL (GENERAL) HISTORY Type Description Date Medical History hypertension Medical History pancreatitis Medical History cystocele Medical History hyperlipidemia Medical History osteoporosis Medical History diabetes mellitus Medical History Arthritis Medical History bipolar disorder Medical History depression Medical History orthostatic hypotension Surgical History hysterectomy 1999 Surgical History orthopedic surgery - back surgery Surgical History cholecystectomy Surgical History abnormal monofilament 01/25/2015 Surgical History colonoscopy: Tubular Adenoma, Repeat 3 years 08/2016 Hospitalization History chest pain ED visit [facility], pt scheduled for heart cath on May Hospitalization History Ana [facility] 2012 Hospitalization History Chest pain-[facility] 12/22/16
--- OUTSIDE RECORDS SUMMARY | 2018-04-21 21:46 | XMS REPORT ---
Author Author ADARSH OSWALDO Organization [facility] Address [address] [place] [address] Care Team Providers Care Soil Engineer Name Role Phone ALTAMIRANOOSWALDO Antonio Unavailable PROBLEMS Type Condition ICD9-CM Code SVB37-LJ Code Onset Dates Condition Status SNOMED Code Problem Polyneuropathy associated with underlying disease G63 Active 414362934 Problem Lumbago with sciatica, left side M54.42 Active 598441882 Problem Syncope, unspecified syncope type R55 Active 595891982 Problem Abnormal mammogram R92.8 Active 854592069 Problem Type 2 diabetes mellitus with diabetic polyneuropathy E11.42 Active 61691258 Problem Other seasonal allergic rhinitis J30.2 Active 784012190 Problem Lumbago with sciatica, right side M54.41 Active 431525426 Problem prison 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 Active 880772631 Problem Other chronic pain G89.29 Active 80170193 Problem Generalized anxiety disorder F41.1 Active 57046698 Problem Low serum HDL R74.8 Active 047489930 Problem Episodic mood disorder F39 Active 71406726 Problem Sleep disturbance G47.9 Active 69368989 Problem Dyslipidemia E78.5 Active 056992502 Problem Serum creatinine raised R79.89 Active 198335687 Problem Depression, unspecified depression type F32.9 Active 66737991 ALLERGIES No Information SOCIAL HISTORY Never Assessed [...] History Ana [facility] 2012 Hospitalization History Chest pain-[facility] 12/22/16
--- OUTSIDE RECORDS SUMMARY | 2018-04-21 21:46 | XMS REPORT ---
Author Author ALTAMIRANOBUSTEROSWALDO Organization [facility] Address [address] [place] [address] Care Team Providers Care Salon Leader Name Role Phone OSWALDO ALTAMIRANO Unavailable PROBLEMS Type Condition ICD9-CM Code CTX76-RR Code Onset Dates Condition Status SNOMED Code Problem Syncope, unspecified syncope type R55 Active 431579303 Problem Lumbago with sciatica, right side M54.41 Active 477760410 Problem Lumbago with sciatica, left side M54.42 Active 572658751 Problem Stage 2 chronic kidney disease N18.2 Active 862969310 Problem Abnormal mammogram R92.8 Active 184361059 Problem Other chronic pain G89.29 Active 55813438 Problem Other seasonal allergic rhinitis J30.2 Active 731082585 Problem Type 2 diabetes mellitus with diabetic polyneuropathy E11.42 Active 52481512 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 Active 378706027 Problem Generalized anxiety disorder F41.1 Active 28952356 Problem Sleep disturbance G47.9 Active 02943219 Problem Episodic mood disorder F39 Active 94810143 Problem Dyslipidemia E78.5 Active 165305979 Problem Low serum HDL R74.8 Active 236611610 Problem Depression, unspecified depression type F32.9 Active 37606217 Problem Serum creatinine raised R79.89 Active 738105089 Problem Polyneuropathy associated with underlying disease G63 Active 830240258 ALLERGIES No Information ENCOUNTERS Encounter Location Date Diagnosis [facility] [address] [facility] [id number], [place] [address] March, [facility] [address] [id number] [address] Feb, [address] [id number] [id number] Jan, Dental examination Z01.20 [facility] [place] [id number] [place] [address] 14553- 1314 Jan, Acute non-recurrent maxillary sinusitis J01.00 and Dyslipidemia E78.5 [facility] [place] [address] [place] [id number] [id number] Jan, Dental examination Z01.20 and Dental caries K02.[address] [id number] [place]ALL[place] [id number] Jan, [address] [place] [id number] Dec, Dental examination Z01.20 [facility] [address] [address] Dec, Seasonal allergic rhinitis, unspecified trigger J30.[address] [address]- [address] Nov, [address] [address]- [address] Nov, Type 2 diabetes mellitus with diabetic polyneuropathy E11.42 ; Dyslipidemia E78.5 ; Lumbago with sciatica, right side M54.41 ; Lumbago with sciatica, left side M54.42 ; jail 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 ; Polyneuropathy associated with underlying disease G63 ; Stage 2 chronic kidney disease N18.2 and Syncope, unspecified syncope type R55 [place] [id number] [place] [address] 16222- 0079 Oct, Type 2 diabetes mellitus with diabetic polyneuropathy E11.42 ; Acute otitis externa of left ear, unspecified type H60.502 ; Overweight (BMI 25.0-29.9) E66.3 ; Dyslipidemia E78.5 and Polyneuropathy associated with underlying disease G63 [place] [id number] [place] [address]81- 0127 Sep, [address] [address]- [address] Aug, Abnormal mammogram R92.8 [place] [id number] [place] [address] 39194- 2777 Aug, Type 2 diabetes mellitus with diabetic polyneuropathy E11.42 [facility] [id number] [place] [address] 18359- 3321 Aug, [place] [id number] [place] [address] 76439- 9797 Aug, Type 2 diabetes mellitus with diabetic polyneuropathy E11.42 ; Syncope, unspecified syncope type R55 ; Other chronic pain G89.29 and Encounter for immunization Z23 [place] [address] [address]- [address] Aug, Type 2 diabetes mellitus with diabetic polyneuropathy E11.42 [place] [address] [address] [id number] [place] [address] 09814- 1911 Jul, Type 2 diabetes mellitus with diabetic polyneuropathy E11.42 and Serum creatinine raised R79.89 [place] [address] [address] [id number] [place] [address] 27133- 1842 Jul, Type 2 diabetes mellitus with diabetic polyneuropathy E11.42 and Serum creatinine raised R79.89 [place] [address] [address] [id number] [place] [address] 73176- 5051 May, [place] [address] [address] [id number] [place] [address] 48737- 7207 May, [place] [address] [id number] [place] [address] 25102- 3352 May, Head injury, initial encounter S09.90XA ; Facial pain R51 ; Neck pain M54.2 and Fall, initial encounter W19.XXXA [place] [address] [id number] [place] [address] 44692- 0194 May, Type 2 diabetes mellitus with diabetic polyneuropathy E11.42 [place] [address] [address] [id number] [place] [address] 59190- 0388 May, [place] [address], [place] [address] 32[address] May, Type 2 diabetes mellitus with diabetic polyneuropathy E11.42 [place] [address] [id number] [place] [address] 19553- 1500 May, Dyslipidemia E78.5 ; jail 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 ; Type 2 diabetes mellitus with diabetic polyneuropathy E11.42 ; Generalized anxiety disorder F41.1 and Other seasonal allergic rhinitis J30.2 [place] [address] [address] [id number] [place] [address] 56377- 2008 Apr, Type 2 diabetes mellitus with diabetic polyneuropathy E11.42 [place] [address] [address] [id number] [place] [address] 77884- 7032 March, [place] [id number] [place] [address] 71477- 8496 March, Abnormal mammogram R92.8 [place] [address] [address] [id number] [place] [address] 26292- 0683 Feb, Abnormal mammogram R92.8 [place] [address] [address] [id number] [place] [address] 71256- 6734 Feb, Diabetes type 2, uncontrolled E11.65 [place] [address] [address] [id number] [place] [address] 67361- 1368 Feb, Screening for breast cancer Z12.39 [place] [address] [address] [id number] [place] [address] 97413- 4930 Jan, Screening for breast cancer Z12.39 [place] [address] [id number] [place] [address] 71353- 1020 Jan, Type 2 diabetes mellitus with diabetic polyneuropathy E11.42 ; jail 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 ; Other viral agents as the cause of diseases classified elsewhere B97.89 and Acute upper respiratory infection, unspecified J06.9 [place] [address] [address] [id number] [place] [address] 83587- 2798 Jan, [place] [address] [place] [address] 47838- 3975 Dec, Diabetes type 2, uncontrolled E11.65 ; Dyslipidemia E78.5 ; Generalized anxiety disorder F41.1 ; Depression, unspecified depression type F32.9 ; 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 and Polyneuropathy associated with underlying disease G63 [place] [address] [address] [id number] [place] [address] 47032- 0016 Dec, [place] [address] [address] [id number] [place] [address] 38508- 8340 Dec, [place] [address] [id number] [place] [address] 90190- 6296 Dec, [place] [address] [address] [id number] [place] [address] 91714- 7209 Dec, [place] [address] [address] [id number] [place] [address] 35942- 2281 Oct, Well woman exam Z01.419 ; Screening for breast cancer Z12.39 ; 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 ; Type 2 diabetes mellitus without complications E11.9 and Encounter for immunization Z23 [place] [address] [address] [id number] [place] [address] 07722- 1006 Sep, [place] [address] [address] [id number] [place] [address] 03638- 5159 Sep, Diabetes type 2, uncontrolled E11.65 ; Dyslipidemia E78.5 and Depression, unspecified depression type F32.9 [place] [address] [address] [place] [address] 66320- 6791 Aug, Diabetes type 2, uncontrolled E11.65 ; Encounter for immunization Z23 ; Nasal congestion R09.81 and Ear pressure, bilateral H93.8X3 [place] [address] [place] [address] 64746- 9806 08 Jul, 2016 Eustachian tube dysfunction, left H69.82 [place] [address], [place] [address] 14[address] Jun, [place] [address] [address] [id number] [place] [address] 11470- 4937 Jun, Hospital discharge follow-up Z09 ; Syncope, unspecified syncope type R55 and Acute suppurative otitis media of left ear without spontaneous rupture of tympanic membrane, recurrence not specified H66.002 [place] [address] [address] [id number] [place] [address] 15907- 5935 May, [place] [address] [address] [id number] [place] [address] 25153- 8976 May, [place] [address] [address] [id number] [place] [address] 61336- 4566 May, [place] [address] [address] [address] [place] [address] 29967- 7529 May, Diabetes type 2, uncontrolled E11.65 ; Depression, unspecified depression type F32.9 ; Syncope, unspecified syncope type R55 ; Dyslipidemia E78.5 ; Polyneuropathy associated with underlying disease G63 ; Other seasonal allergic rhinitis J30.2 ; Lumbago with sciatica, right side M54.41 ; Lumbago with sciatica, left side M54.42 ; Other chronic pain G89.29 ; Episodic mood disorder F39 ; Sleep disturbance G47.9 and Generalized anxiety disorder F41.1 [place] [address], [place] [address] March, [address] [address] March, Syncope, unspecified syncope type R55 and Depression, unspecified depression type F32.9 [facility] [address] [place] [id number] March, Orthostatic hypotension I95.1 [facility] [address] [address] March, [place] [address] [place]284865[place], [place] [address] 7087 March, [facility] [address] [id number][place] [address] Feb, [facility] [address] [id number] [place] [address] Feb, Dental examination Z01.20 [facility] [address] [id number], [place] [address] Jan, [facility] [address] [id number], [place] [id number] Jan, [facility] [address] [id number][place] [address] Dec, Diabetes type 2, uncontrolled E11.65 [facility] [address] [id number][place] [address]67[address] Nov, [facility] [address] [id number] [place]ALLS[place] [id number] Nov, Encounter for dental examination Z01.[address] [facility] [place] [address] [id number] [place]ALLS[place] [address] Nov, Dental examination Z01.20 [facility] [id number], [place] [address] Sep, Diabetes type 2, uncontrolled E11.65 [facility] [address] [id number] FALLS[place] [address] Sep, Encounter for dental examination Z01.20 and Dental caries, unspecified K02.9 [facility] [address] [id number][place] [address] Sep, Bipolar 2 disorder F31.81 [facility] [address] [id number], [place] [id number] Aug, [facility] [id number], [place] [address] Aug, Follow up V67.9 [facility] [address] [id number] [address]85 Jul, Bipolar disorder, unspecified 296.80 [facility] [address] [id number][place] [address] Jul, Thyroid enlarged 240.9 and Bipolar disorder, unspecified 296.80 [facility] [id number] [place] [address] [id number] Jun, Diabetes mellitus type 2, uncontrolled 250.02 ; Bipolar disorder, unspecified 296.80 and Rash 782.1 [facility] [id number], [place] [address] Jun, [facility] [id number] [place] [address] [id number] May, Urinary tract infection 599.0 [facility] [id number] [place] [address] [id number] May, Urinary tract infection 599.0 [facility] [id number] [place] [address] [id number] May, [facility] [id number] [place] [address] [id number] May, Diabetes mellitus type 2, uncontrolled 250.02 and Pica in adults 307.52 [facility] [id number], [place] [id number] Apr, Follow up V67.9 and Diabetes mellitus type 2, uncontrolled 250.02 [facility] [place] [id number], [place] [id number] Apr, [facility] [address] [id number] [address] 5269 Apr, [facility] [id number], [place] [id number] Apr, Hyperlipidemia 272.4 [facility] [id number], [place] [id number] March, Diabetes type 2, uncontrolled 250.02 [facility] [id number], [place] [address] March, Diabetes mellitus type 2, uncontrolled 250.02 [facility] [id number], [place] [address] March, Diabetes type 2, uncontrolled 250.02 [facility] [address] [id number] [id number] March, [facility] [address] [id number] [place] [id number] March, [facility] [address] [id number] [place] [address] Feb, [facility] [place] [facility] [address] [facility] [id number] [place] [address]- 6846 Feb, [facility] [place] [facility] [address] [facility] [id number] [place] [address]- 7746 Feb, [facility] [address] [facility] [id number] [place] [id number] Jan, [facility] [place] [facility] [address]00565100[place], [place] [address]- 1076 Jan, [facility] [place] [facility] [address] [address]- 4646 Jan, [facility] [address] [facility] [id number], [place] [id number] Jan, [facility] [place] [facility] [address] [id number] [address]- 9915 Jan, [facility] [place] [facility] [address]00565100[place], [place]- 7070 Jan, [facility] [address] [id number], [place] [id number] Jan, [facility] [place] [facility] [address]00565100[place], [place] [address]- 7884 Jan, [facility] [place] [facility] [address] [facility] [id number], [place] [address]- 4638 Dec, [facility] [address] [facility] [id number], [place] [id number] Dec, [facility] [place] [facility] [address] [facility] [id number], [place] [address]- 8446 Dec, [facility] [address] [facility] [id number], [place] [id number] Dec, [facility] [place] [facility] [address] [id number], [place] [address]- 2666 Dec, 2014 [facility] [address] [id number] [place] [id number] Dec, 2014 [facility] [place] [facility] [address] [facility] [id number] [place] [address]- 2816 Dec, 2014 [facility] [place] [facility] [address] [facility] [id number] [place] [address]- 0279 Dec, 2014 [facility] [address] [id number] [place] [id number] Dec, [facility] [address] [id number] [place] [id number] Dec, 2014 [facility] [place] [facility] [address] [facility] [id number] [place] [address]- 1646 Dec, [facility] [place] [facility] [address]005[address], [place] [address]- 1125 Nov, [facility] [place] [facility] [address] [facility] [id number], [place] [address]- 0987 Oct, [facility] [place] [facility] [address]00565100[place], [place] [address]- 6743 Oct, [facility] [address] [facility] [id number], [place] [id number] Sep, [facility] [place] [facility] [address] [facility] [id number], [place] [address]- 9886 Sep, [facility] [address] [facility] [id number], [place] [id number] Sep, [facility] [place] [facility] [address] [facility] [id number], [place] [address]- 8286 Sep, [facility] [address] [facility] [id number], [place] [id number] Aug, [facility] [place] [facility] [address] [facility] [id number], [place] [address]- 2546 Aug, [facility] [address] [facility] [id number], [place] [id number] Aug, [facility] [place] [facility] [address] [id number] [place] [address]- 0150 Aug, [facility] [place] [facility] [address] [facility] [id number] [place] [address]- 6862 Jul, [facility] [place] [facility] [address] [facility] [id number] [place] [address]- 5525 Jul, [facility] [address] [facility] [id number], [place] [id number] Jul, [facility] [place] [facility] [address] [facility] [id number] [place] [address]- 5008 Jul, [facility] [address] [facility] [id number], [place] [id number] Jun, [facility] [address] [facility] [id number], [place] [id number] Jun, [facility] [place] [facility] [address]005[address], [place] [address]- 4939 Jun, [facility] [place] [facility] [address] [facility] [id number], [place] [address]- 2880 Jun, [facility] [address] [facility] [id number], [place] [id number] Jun, [facility] [place] [facility] [address] [facility] [id number], [place] [address]- 7397 Jun, [facility] [address] [facility] [id number], [place] 610164322 May, [facility] [place] [facility] [address] [facility] [id number], [place] [address]- 3151 May, [facility] [place] [facility] [address] [facility] [id number] [place] [address]- 1101 Apr, [facility] [place] [facility] [address] [facility] [id number] [place] [address]- 1053 Apr, [facility] [address] [facility] [id number], [place] [id number] Apr, [facility] [place] [facility] [address] [facility] [id number], [place] [address]- 2546 Apr, [facility] [place] [facility] [address] [facility] [id number] [place] [address]- 2546 Apr, [facility] [address] [facility] [id number], [place] [id number] March, [facility] [place] [facility] [address] [facility] [id number] [place] [address]- 2546 March, [facility] [place] [facility] [address] [facility] [id number] [place] [address]- 2546 March, [facility] [address] [facility] [id number] [place] [id number] March, [facility] [place] [facility] [address] [facility] [id number] [place] [address]- 2546 March, [facility] [address] [facility] [id number] [place] [id number] March, [facility] [place] [facility] [address] [facility] [id number] [place] [address]- 2546 March, [facility] [address] [facility] [id number], [place] [id number] Feb, [facility] [place] [facility] [address] [facility] [id number] [place] [address]- 2546 Feb, [facility] [place] [facility] [address] [id number], [place] [address]- 2546 Jan, [facility] [address] [facility] [id number], [place] [id number] Jan, [facility] [place] [facility] [address] [facility] [id number] [place] [address]- 2546 Jan, [facility] [place] [facility] [address] [facility] [id number] [place] [address]- 2546 Jan, [facility] [address] [id number] [place] [id number] Jan, [facility] [address] [facility] [id number], [place] 101066160 Dec, [facility] [place] [facility] [address] [facility] [id number] [place] [address]- 3356 Dec, [facility] [place] [facility] [address] [facility] [id number], [place] [address]- 4573 Dec, [facility] [address] [facility] [id number] [place] 357723498 Dec, [facility] [place] [facility] [address] [facility] [id number], [place] [address]- 9696 Dec, [facility] [address] [facility] [id number] [place] [id number] Dec, [facility] [place] [facility] [address] [id number], [place] [address]- 3736 Dec, [facility] [place] [facility] [address] [id number] [address]- 6757 Dec, [facility] [address] [id number], [place] [id number] Dec, [facility] [address] [facility] [id number] [place] [id number] Nov, [facility] [place] [facility] [address], [place] [address]- 8464 Nov, [facility] [place] [facility] [address] [id number], [place] [address]- 9206 Nov, [facility] [id number], [place] [id number] Nov, [facility] [address] [facility] [id number][place] [id number] Oct, [facility] [place] [facility] [address] [facility] [id number], [place] [address] Oct, [facility] [address] [facility] [id number][place] [id number] Oct, [facility] [place] [facility] [id number], [place] [address] Oct, [facility] [place] [facility] [address] [id number], [place] [address] Oct, [facility] [place] [facility] [address] [facility] [id number], [place] [address] Oct, [facility] [address] [facility] [id number][place] [id number] Oct, [facility] [place] [facility] [address] [facility] [id number], [place] [address] Oct, [facility] [place] [facility] [address] [facility] [id number], [place] [address] Sep, [facility] [place] [facility] [address] [facility] [id number], [place] [address] Sep, [facility] [address] [facility] [id number][place] [id number] Sep, [facility] [address] [facility] [id number], [place] [address] Sep, [facility] [place] [facility] [address] [facility] [id number], [place] [address] Sep, [facility] [address] [id number][place] [id number] Sep, [facility] [address] [facility] [id number][place] [id number] Aug, [facility] [place] [facility] [address] [facility] [id number], [place] [address] Aug, [facility] [place] [facility] [address] [facility] [id number], [place] [address] Aug, [facility] [address] [facility] [id number][place] [id number] Aug, [facility] [address] [facility] [id number][place] [id number] Aug, [facility] [place] [facility] [address] [facility] [id number], [place] [address] Aug, [facility] [place] [facility] [address] [facility] [id number], [place] [address] Aug, [facility] [place] [facility] [address] [facility] [id number] [place] [address] Aug, [facility] [address] [id number] [place] [id number] Jul, [facility] [address] [facility] [id number] [place] [address] Jul, [facility] [place] [facility] [address] [facility] [id number] [place] [address] Jul, [facility] [address] [id number] [place] [id number] Jul, [facility] [address] [id number] [place] [id number] Jul, [facility] [address] [id number], [place] [address] May, [facility] [address] [id number], [place] [address] Apr, [facility] [address] [id number] [place] [id number] Apr, [facility] [address] [id number] [place] [id number] Apr, [facility] [address] [facility] [id number], [place] [address] March, [facility] [address] [id number] [place] [id number] March, [facility] [address] [id number] [place] [id number] March, [facility] [address] [id number] [place] [id number] March, [facility] [address] [id number] [place] [id number] March, [facility] [address] [id number] [place] [id number] March, [facility] [place] [facility] [address] [facility] [id number], [place] [address] March, [facility] [place] [facility] [address] [address] [facility] [id number], [place] [address] March, [facility] [address] [facility] [id number], [place] [address] Feb, [facility] [place] [address] [id number] [place] [id number] Feb, [facility] [place] [address] [id number] [place] [id number] Feb, [facility] [place] [address] [id number] [place] [id number] Feb, [facility] [address] [facility] [id number], [place] [address] Feb, [facility] [place] [address] [id number] [place] [id number] Feb, [facility] [place] [address] [id number] [place] [id number] Jan, [facility] [place] [address] [id number] [place] [id number] Jan, [facility] [place] [address] [id number] [place] [address] Dec, [facility] [place] [address] [id number] [place] [id number] Dec, [facility] [address] [id number], [place] [address] Dec, [facility] [place] [address] [id number][place] [phone] Dec, [facility] [place] [address] [id number][place] [id number] Dec, [facility] [place] [address] [id number] [place] [id number] Dec, [facility] [place] [address] [id number] [place] [id number] Dec, [facility] [address] [facility] [id number], [place] [address] Nov, [facility] [place] [address] [id number] [place] [id number] Nov, [facility] [place] [address] [id number] [place] [id number] Nov, [facility] [place] [address] [id number] [place] [address] Nov, [facility] [place] [address] [id number] [place] [id number] Nov, [facility] [address] [id number], [place] [address] Oct, [facility] [place] [address] [id number] [place] [address] Oct, [facility] [place] [address] [id number] [place] [id number] Oct, [facility] [place] [address] [id number] [place] [id number] Oct, [facility] [address]00565100[place], [place] [address] Oct, [facility] [address] [facility] [id number], [place] [address] Oct, [facility] [address]00565100[place], [place] [address] Oct, [facility] [place] [address] [id number], [place] [id number] Sep, [facility] [address]65100[place], [place] [address] Sep, [facility] [address] [facility] [id number], [place] [address] Sep, [facility] [place] [address] [id number] [place] [id number] Sep, [facility] [place] [address] [id number] [place] [id number] Sep, [facility] [place] [address] [id number] [place] [id number] Sep, [facility] [address] [facility] [id number], [place] [address] Sep, [facility] [place] [facility] [address] [facility] [id number], [place] [address] Sep, [facility] [place] [facility] [address] [facility] [id number], [place] [address] Sep, [facility] [place] [address] [id number], [place] [id number] Aug, [facility] [place] [facility] [address] [facility] [id number], [place] [address] Aug, [facility] [place] [address] [id number], [place] [id number] Aug, [facility] [place] [facility] [address] [facility] [id number], [place] [address] Aug, [facility] [place] [facility] [address]65[address], [place] [address] Aug, [facility] [place] [address] [id number], [place] [id number] Aug, [facility] [place] [address] [id number], [place] [id number] Aug, [facility] [address]00565100[place], [place] [address] Aug, [facility] [place] [address] [id number], [place] [id number] Aug, [facility] [place] [address] [id number], [place] [id number] Jul, [facility] [place] [address] [id number], [place] [id number] Jun, [facility] [place] [address] [id number] [place] [id number] May, [facility] [place] [address] [id number], [place] [address] May, [facility] [place] [address] [id number], [place] [id number] May, [facility] [place] [address] [id number], [place] [id number] May, [facility] [place] [address] [id number] [place] [id number] May, [facility] [place] [address] [id number] [place] [id number] May, [facility] [place] [address] [id number] [place] [address] May, [facility] [place] [address] [id number] [place] [id number] Apr, [facility] [place] [address] [id number] [place] [id number] Apr, [facility] [place] [address] [id number] [place] [id number] Apr, [facility] [place] [address] [id number] [place] [id number] Apr, [facility] [place] [address] [id number] [place] [address]1301 Apr, [facility] [place] [address] [id number] [place] [id number] Apr, [facility] [place] [address] [id number] [place] [id number] March, [facility] [place] [address] [id number] [place] [id number] March, [facility] [place] [address] [id number] [place] [id number] Feb, [facility] [place] [address] [id number] [place] [address]08321029 Feb, [facility] [place] [address] [id number] [place] [id number] Feb, [facility] [place] [address] [id number] [place] [id number] Jan, [facility] [place] [address] [id number] [place] [id number] Jan, [facility] [place] [address] [id number] [place] [id number] Jan, [facility] [place] [address] [id number] [place] [id number] Jan, [facility] [place] [address] [id number], [place] [id number] Dec, [facility] [address] [id number], [place] [address] Dec, [facility] [place] [address] [id number] [place] [id number] Dec, [facility] [place] [address] [id number] [place] [id number] Nov, [facility] [place] [address] [id number] [place] [id number] Nov, [facility] [place] [address] [id number] [place] [id number] Nov, [facility] [place] [facility] [address] [facility] [id number] [place] [address] Oct, [facility] [place] [facility] [id number] [place] [address]- [address] Oct, [facility] [place] [facility] [id number] [place] [address]- 9671 Oct, [facility] [place] [facility] [id number] [place] [address]- 6320 Aug, [facility] [place] [facility] [id number] [place] [address]- [address]85 Aug, [facility] [place] [facility] [address]65[address], [place] [address] Aug, [facility] [place] [facility] [address]65100[place], [place] [address] March, [facility] [place] [facility] [address] [facility] [id number], [place] [address]- [address] Oct, [facility] [place] [facility] [address] [facility] [id number] [place] [address]- 5565 Oct, [facility] [place] [facility] [address] [facility] [id number], [place] [address]- [address] Sep, [facility] [place] [facility] [id number] [place] [address]- 4517 Sep, [facility] [place] [facility] [address] [id number] [place] [address]- [address]28 Sep, [facility] [place] [facility] [address] [id number], [place] [address]- [address] Aug, [facility] [place] [facility] [address] [id number] [place] [address]- 2836 Aug, [facility] [place] [facility] [address] [id number], [place] [address] Jun, [facility] [place] [facility] [address] [id number] [place] [address]- 64[address] May, [facility] [place] [facility] [address] [id number], [place] [address] Jan, [facility] [place] [facility] [address] [id number], [place] [address]- [address]26 Nov, [facility] [place] [facility] [address] [id number], [place] [address]- 1718 Oct, [facility] [place] [facility] [address] [id number], [place] [address]- 67[address] Sep, [facility] [place] [facility] [address] [id number], [place] [address]- 1370 Sep, [facility] [place] [facility] [address] [id number], [place] [address]- 4026 Sep, [facility] [place] [facility] [address] [id number], [place] [address]- 3[address] Sep, [facility] [place] [facility] [address] [id number], [place] [address]- 3512 Sep, [facility] [place] [facility] [address] [facility] [id number], [place] [address]- [address] 30 Aug, 2009 [facility] [place] [facility] [address] [id number], [place] [address]- 4069 Aug, [facility] [place] [facility] [address] [facility] [id number] [place] [address] 288[address] Jul, [facility] [address] [facility] [id number] [place] [address]- [address] Jun, IMMUNIZATIONS No Known Immunizations SOCIAL HISTORY Never Assessed REASON FOR VISIT Herson abreu/Blanca OROZCO PLAN OF CARE VITAL SIGNS MEDICATIONS Medication Instructions Dosage Frequency Start Date End Date Duration Status Invokana 100 mg Orally Once a day 1 tablet 24h May, Nov, 90 days Active RESULTS No Results PROCEDURES No Known procedures INSTRUCTIONS MEDICATIONS ADMINISTERED No Known Medications MEDICAL (GENERAL) HISTORY Type Description Date Medical History hypertension Medical History pancreatitis Medical History cystocele Medical History hyperlipidemia Medical History osteoporosis Medical History diabetes mellitus Medical History Arthritis Medical History bipolar disorder Medical History depression Medical History orthostatic hypotension Medical History Heart disease-2 leaking valves Medical History Fainting Medical History Back trouble Medical History Stage 3 kidney disease-A1C 10.4 Medical History Eczema Medical History Concussion Surgical History hysterectomy 1999 Surgical History orthopedic surgery - back surgery Surgical History cholecystectomy Surgical History abnormal monofilament 01/25/2015 Surgical History colonoscopy: Tubular Adenoma, Repeat 3 years 08/2016 Hospitalization History chest pain ED visit [facility], pt scheduled for heart cath on May Hospitalization History Ana 2012 Hospitalization History Chest pain-[facility] 12/22/16
--- OUTSIDE RECORDS SUMMARY | 2018-04-21 21:46 | XMS REPORT ---
Author Author OSWALDO ALTAMIRANO Organization [facility] Address [address] [place] [address] Care Team Providers Care Director Of Primary Care Name Role Phone ALTAMIRANOOSWALDO Antonio Unavailable PROBLEMS Type Condition ICD9-CM Code VUJ87-SH Code Onset Dates Condition Status SNOMED Code Problem Polyneuropathy associated with underlying disease G63 Active 083631532 Problem Lumbago with sciatica, left side M54.42 Active 095210225 Problem Syncope, unspecified syncope type R55 Active 638511446 Problem Abnormal mammogram R92.8 Active 272312724 Problem Type 2 diabetes mellitus with diabetic polyneuropathy E11.42 Active 52627456 Problem Other seasonal allergic rhinitis J30.2 Active 014796866 Problem Lumbago with sciatica, right side M54.41 Active 753804442 Problem retirement 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 Active 203534454 Problem Other chronic pain G89.29 Active 27755502 Problem Generalized anxiety disorder F41.1 Active 60690708 Problem Low serum HDL R74.8 Active 289895820 Problem Episodic mood disorder F39 Active 80619586 Problem Sleep disturbance G47.9 Active 75064191 Problem Dyslipidemia E78.5 Active 507629301 Problem Serum creatinine raised R79.89 Active 464247059 Problem Depression, unspecified depression type F32.9 Active 98925312 ALLERGIES Substance Reaction Event Type Date Status MetFORMIN HCl ER nausea and vomiting Drug Allergy Jan, Active Codeine Phosphate dizziness Drug Allergy Jan, Active dental metal rash Non Drug Allergy Jan, Active SOCIAL HISTORY Never Assessed PLAN OF CARE Activity Details Follow Up 2 Months Reason:CHM/Dm VITAL SIGNS Height 67.7 in 2017-01-22 Weight 187 lbs 2017-01-22 Temperature 98.4 degrees Fahrenheit 2017-01-22 Heart Rate 70 bpm 2017-01-22 Respiratory Rate 20 2017-01-22 BMI 28.68 kg/m2 2017-01-22 Blood pressure systolic 104 mmHg 2017-01-22 Blood pressure diastolic 76 mmHg 2017-01-22 MEDICATIONS Medication Instructions Dosage Frequency Start Date End Date Duration Status Cymbalta 60 mg Orally Once a day 1 capsule 24h 30 Jul, 2015 Active Victoza 18MG/3ML Subcutaneous Once a day 1.8mg 24h 30 Active Atorvastatin Calcium 40 MG Orally Once a day 1 tablet 24h Active Aspirin 81 MG Orally every 2 days 1 tablet Active MetFORMIN HCl ER 500 MG Orally 2 times a day 1 tablet with evening meal 12h Dec, 30 day(s) Active Trutest Blood Glucose Test Strip Active Trutest Blood Glucose Meter Active Levemir 100 UNIT/ML Subcutaneous 2 times a day inject 65U in am and 75U at HS 12h Dec, Active Vitamin B-12 100 MCG Orally Once a day 1 tablet 24h Active Cetirizine HCl 10MG TAKE ONE TABLET BY MOUTH ONCE DAILY 30 Active Multivitamin Adult - Active Fluticasone Propionate 50 MCG/ACT Nasally Once a day as needed 1 spray in each nostril Active Januvia 50 mg Orally Once a day 1 tablets 24h 17 Jan, 2017 90 days Active Albuterol Sulfate 90 mcg/actuation Inhalation every 4- 6 hrs prn cough, shortness of breath or wheezing 2 puffs Dec, Active Pen H[place]i 31G X 8 MM subcutaneously 2 times a day as directed 12h Dec 90 days Active Insulin Syringe-Needle U-100 28G X 1/2 subcutaneously Once a day as directed 24h Dec, 90 days Active RESULTS No Results PROCEDURES [...] Surgical History orthopedic surgery - back surgery 1982,1989 Surgical History cholecystectomy Surgical History abnormal monofilament 01/25/2015 Surgical History colonoscopy: Tubular Adenoma, Repeat 3 years 08/2016 Hospitalization History chest pain ED visit [facility], pt scheduled for heart cath on May Hospitalization History Ana 2012 Hospitalization History Chest pain-[facility] 12/22/16
--- OUTSIDE RECORDS SUMMARY | 2018-04-21 21:47 | XMS REPORT ---
Author Author OSWALDO ALTAMIRANO Organization [facility] Address [address] [place] [address] Care Team Providers Care Motion Picture Printer Name Role Phone OSWALDO ALTAMIRANO Unavailable PROBLEMS Type Condition ICD9-CM Code AWV40-YZ Code Onset Dates Condition Status SNOMED Code Problem Syncope, unspecified syncope type R55 Active 882146751 Problem Lumbago with sciatica, right side M54.41 Active 625267483 Problem Lumbago with sciatica, left side M54.42 Active 249715577 Problem Stage 2 chronic kidney disease N18.2 Active 803126977 Problem Abnormal mammogram R92.8 Active 645141682 Problem Other chronic pain G89.29 Active 69037350 Problem Other seasonal allergic rhinitis J30.2 Active 621530447 Problem Type 2 diabetes mellitus with diabetic polyneuropathy E11.42 Active 01689347 Problem senior living 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 Active 812735136 Problem Generalized anxiety disorder F41.1 Active 53207812 Problem Sleep disturbance G47.9 Active 38595816 Problem Episodic mood disorder F39 Active 56507359 Problem Dyslipidemia E78.5 Active 088037813 Problem Low serum HDL R74.8 Active 394434254 Problem Depression, unspecified depression type F32.9 Active 61781804 Problem Serum creatinine raised R79.89 Active 839642492 Problem Polyneuropathy associated with underlying disease G63 Active 391299145 ALLERGIES No Information ENCOUNTERS Encounter Location Date Diagnosis [facility] [address] [facility] [id number] [address] March, [facility] [address] [id number] [id number] Feb, Dental examination Z01.20 [facility] [address] [facility] [id number], [place] [address] Feb, Labile hypertension R09.89 ; Syncope, unspecified syncope type R55 ; Chest pain, unspecified type R07.9 and Dyslipidemia E78.5 [facility] [id number] [place] [address] 53076- 6574 Feb, [facility] [id number] [place] [address] 51805- 2718 Jan, [facility] [address] [id number] [id number] Jan, Dental examination Z01.20 [facility] [id number] [place] [address] 64470- 7210 Jan, Acute non-recurrent maxillary sinusitis J01.00 and Dyslipidemia E78.5 [facility] [address] [place] [id number] [place] [id number] Jan, Dental examination Z01.20 and Dental caries K02.9 [facility] [address] [place] [address] [place] [id number] [place] [address] [id number] Jan, [facility] [address] [facility] [id number] [place] [address] [id number] Dec, Dental examination Z01.20 [facility] [id number] [place] [address] 16209 -8381 Dec, Seasonal allergic rhinitis, unspecified trigger J30.2 [place] [id number] [place] [address] 15005- 1773 Nov, [place] [id number] [place] [address] 77698- 2091 Nov, Type 2 diabetes mellitus with diabetic polyneuropathy E11.42 ; Dyslipidemia E78.5 ; Lumbago with sciatica, right side M54.41 ; Lumbago with sciatica, left side M54.42 ; 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 ; Polyneuropathy associated with underlying disease G63 ; Stage 2 chronic kidney disease N18.2 and Syncope, unspecified syncope type R55 [place] [id number] [place] [address] 21027- 9007 Oct, Type 2 diabetes mellitus with diabetic polyneuropathy E11.42 ; Acute otitis externa of left ear, unspecified type H60.502 ; Overweight (BMI 25.0-29.9) E66.3 ; Dyslipidemia E78.5 and Polyneuropathy associated with underlying disease G63 [place] [address] [address]- 3708 Sep, [place] [address] 07388- 6972 Aug, Abnormal mammogram R92.8 [place] [address] 34732- 9003 Aug, Type 2 diabetes mellitus with diabetic polyneuropathy E11.42 [place] [address] 11833- 2320 Aug, [place] [address] 09389- 8715 Aug, Type 2 diabetes mellitus with diabetic polyneuropathy E11.42 ; Syncope, unspecified syncope type R55 ; Other chronic pain G89.29 and Encounter for immunization Z23 [place] [address] 79584- 5832 Aug, Type 2 diabetes mellitus with diabetic polyneuropathy E11.42 [place] [address] 90228- 0297 Jul, Type 2 diabetes mellitus with diabetic polyneuropathy E11.42 and Serum creatinine raised R79.89 [place] [address] 39079- 1814 Jul, Type 2 diabetes mellitus with diabetic polyneuropathy E11.42 and Serum creatinine raised R79.89 [place] [address] 60946- 8322 May, [place] [address] 55642- 0948 May, [place] [address]00565[place], [place] [address] 133[address] May, Facial pain R51 ; Head injury, initial encounter S09.90XA ; Neck pain M54.2 and Fall, initial encounter W19.XXXA [place] [address]00565100[place], [place] [address] 1062 May, Type 2 diabetes mellitus with diabetic polyneuropathy E11.42 [place] [address] [id number], [place] [address] 6[address] May, [place] [id number] [place] [address] 69336- 1664 May, Type 2 diabetes mellitus with diabetic polyneuropathy E11.42 [place] [address] 2129365[place], [place] [address] 92[address] May, Dyslipidemia E78.5 ; 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 ; Type 2 diabetes mellitus with diabetic polyneuropathy E11.42 ; Generalized anxiety disorder F41.1 and Other seasonal allergic rhinitis J30.2 [place] [address]00565100[place], [place] [address]- [address] Apr, Type 2 diabetes mellitus with diabetic polyneuropathy E11.42 [place] [address]00565100[place], [place] [address]- 9969 March, [place] [address]00565100[place], [place] [address] 16[address] March, Abnormal mammogram R92.8 [place] [address]00565100[place], [place] [address] 9860 Feb, Abnormal mammogram R92.8 [place] [address] 2129365100[place], [place] [address]- 2[address] Feb, Diabetes type 2, uncontrolled E11.65 [place] [address]00565[address], [place] [address] 50[address] Feb, Screening for breast cancer Z12.39 [place] [address]00565100[place], [place] [address] 27 Jan, 2017 Screening for breast cancer Z12.39 [place] [id number] [place] [address] 78514- 4613 Jan, Type 2 diabetes mellitus with diabetic polyneuropathy E11.42 ; 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 ; Other viral agents as the cause of diseases classified elsewhere B97.89 and Acute upper respiratory infection, unspecified J06.9 [place] [id number] [place] [address] 44949- 9635 Jan, [place] [id number] [place] [address] 03733- 5714 Dec, Diabetes type 2, uncontrolled E11.65 ; Dyslipidemia E78.5 ; Generalized anxiety disorder F41.1 ; Depression, unspecified depression type F32.9 ; senior living 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 and Polyneuropathy associated with underlying disease G63 [address] [place] [address] 54269- 4342 16 Dec, 2016 [place] [id number] [place] [address] 28665- 6186 Dec, [place] [id number] [place] [address] 45397- 5062 Dec, [address] [place] [address] 35737- 1675 Dec, [place] [id number] [place] [address] 21952- 7308 Oct, Well woman exam Z01.419 ; Screening for breast cancer Z12.39 ; 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 ; Type 2 diabetes mellitus without complications E11.9 and Encounter for immunization Z23 [address]65[address], [place] [address] 40[address] Sep, [place] [id number] [place] [address] 84444- 8226 Sep, Diabetes type 2, uncontrolled E11.65 ; Dyslipidemia E78.5 and Depression, unspecified depression type F32.[address] 39658- 0799 Aug, Diabetes type 2, uncontrolled E11.65 ; Encounter for immunization Z23 ; Nasal congestion R09.81 and Ear pressure, bilateral H93.8X3 [address] 65084- 8869 Jul, Eustachian tube dysfunction, left H69.82 [place] [address] 70552- 2538 Jun, [address] 65943- 0154 Jun, Hospital discharge follow-up Z09 ; Syncope, unspecified syncope type R55 and Acute suppurative otitis media of left ear without spontaneous rupture of tympanic membrane, recurrence not specified H66.002 [place] [id number] [place] [address] 20321- 1022 May, [address] 22526- 4704 May, [place] [address] 66410- 6130 May, [place] [address] 41992- 0868 May, Diabetes type 2, uncontrolled E11.65 ; [...] disturbance G47.9 and Generalized anxiety disorder F41.[address] 25771- 2546 March, [facility] [address] [facility] [id number][place] [id number] March, Syncope, unspecified syncope type R55 and Depression, unspecified depression type F32.9 [facility] [address] [id number], [place] [address] March, Orthostatic hypotension I95.1 [facility] [address] [id number] [id number] March, [facility] [address] [facility] [id number], [place] [address]- 2546 March, [facility] [address] [facility] [id number][place] [id number] Feb, [facility] [address] [id number][place] [id number] Feb, Dental examination Z01.20 [facility] [address] [id number][place] [id number] Jan, [facility] [address] [id number], [place] [id number] Jan, [facility] [address] [id number], [place] [address] Dec, Diabetes type 2, uncontrolled E11.65 [facility] [address] [id number][place] [id number] Nov, [facility] [address] [id number][place] [id number] Nov, Encounter for dental examination Z01.[address] [facility] [address] [id number][place] [id number] Nov, Dental examination Z01.20 [facility] [address] [id number][place] [id number] Sep, Diabetes type 2, uncontrolled E11.[address] [facility] [address] [id number], [place] [id number] Sep, Encounter for dental examination Z01.20 and Dental caries, unspecified K02.9 [facility] [address]65[address] [address] Sep, Bipolar 2 disorder F31.81 [facility] [id number] [place] [address] [id number] Aug, [facility] [id number] [place] [address] [id number] Aug, Follow up V67.9 [facility] [place] [id number] [place] [address] 39188- 0204 Jul, Bipolar disorder, unspecified 296.80 [facility] [id number] [place] [address] [id number] Jul, Thyroid enlarged 240.9 and Bipolar disorder, unspecified 296.80 [facility] [place] [id number] [place] [address] [id number] Jun, Diabetes mellitus type 2, uncontrolled 250.02 ; Bipolar disorder, unspecified 296.80 and Rash 782.1 [facility] [place] [id number] [place] [address] [id number] Jun, [facility] [id number] [place] [address] [id number] May, Urinary tract infection 599.0 [facility] [id number] [place] [address] [id number] May, Urinary tract infection 599.0 [facility] [id number] [place] [address] [id number] May, [facility] [address] [place] [address] [id number] May, Diabetes mellitus type 2, uncontrolled 250.02 and Pica in adults 307.52 [facility] [id number] [place] [address] [id number] Apr, Follow up V67.9 and Diabetes mellitus type 2, uncontrolled 250.02 [facility] [place] [id number] [place] [address] [id number] Apr, [facility] [place] [address] [place] [address] 39912143- 3287 Apr, [facility] [id number] [place] [address] [id number] Apr, Hyperlipidemia 272.4 [facility] [id number], [place] [id number] March, Diabetes type 2, uncontrolled 250.02 [facility] [id number], [place] [id number] March, Diabetes mellitus type 2, uncontrolled 250.02 [facility] [id number], [place] [id number] March, Diabetes type 2, uncontrolled 250.02 [facility] [id number], [place] [id number] March, [facility] [id number] [place] [address] [id number] March, [facility] [id number] [place] [address] [id number] Feb, [facility] [place] [facility] [address] [place] [address] 23381- 2546 Feb, [facility] [place] [facility] [address] 2129365[place], [place] [address]- 2546 Feb, [facility] [id number], [place] [id number] Jan, [facility] [place] [facility] [id number] [place] [address] 20940- 5106 Jan, [facility] [place] [facility] [address]00565100[place], [place] [address]- 2546 Jan, [facility] [id number], [place] [id number] Jan, [facility] [place] [facility] [address]00565100[place], [place] [address]- 8596 Jan, [facility] [place] [facility] [id number] [place] [address] 26028- 2546 Jan, [facility] [id number], [place] [id number] Jan, [facility] [place] [facility] [id number] [place] [address] 14170- 6245 Jan, [facility] [place] [facility] [address] [facility] [id number], [place] [address]- 4271 Dec, [facility] [address] [facility] [id number] [place] [id number] Dec, [facility] [place] [facility] [address] [facility] [id number] [place] [address]- 3186 Dec, [facility] [address] [facility] [id number] [place] [id number] Dec, [facility] [place] [facility] [address] [facility] [id number], [place] [address]- 4015 Dec, [facility] [address] [facility] [id number] [place] [id number] Dec, [facility] [place] [facility] [address] [id number], [place] [address]- 2656 Dec, [facility] [place] [facility] [address] [id number], [place] [address]- 9649 Dec, 2014 [facility] [address] [facility] [id number] [place] [id number] Dec, [facility] [address] [facility] [id number] [place] [id number] Dec, [facility] [place] [facility] [address]00565100[place], [place] [address]- 7460 Dec, [facility] [place] [facility] [address]00565100[place], [place] [address]- 5680 Nov, [facility] [place] [facility] [address] [facility] [id number], [place] [address]- 7400 Oct, [facility] [place] [facility] [address] [facility] [id number], [place] [address]- 2212 Oct, [facility] [address] [facility] [id number], [place] [id number] Sep, [facility] [place] [facility] [address] [id number], [place] [address]- 8219 Sep, [facility] [address] [id number] [place] [id number] Sep, [facility] [place] [facility] [address] [facility] [id number], [place] [address]- 6477 Sep, [facility] [address] [facility] [id number] [place] [id number] Aug, [facility] [place] [facility] [address] [facility] [id number], [place] [address]- 6514 Aug, [facility] [address] [facility] [id number], [place] [id number] Aug, [facility] [place] [facility] [address] [facility] [id number], [place] [address]- 8491 Aug, [facility] [place] [facility] [address] [facility] [id number], [place] [address]- 4875 Jul, [facility] [place] [facility] [address]00565100[place], [place] [address]- 3361 Jul, [facility] [address] [facility] [id number], [place] [id number] Jul, [facility] [place] [facility] [address] [facility] [id number], [place] [address]- 6058 Jul, [facility] [address] [facility] [id number], [place] [id number] Jun, [facility] [address] [facility] [id number], [place] [id number] Jun, [facility] [place] [facility] [address] [facility] [id number], [place] [address]- 6700 Jun, [facility] [place] [facility] [address] [facility] [id number], [place] [address]- 9402 Jun, [facility] [address] [facility] [id number], [place] [id number] Jun, [facility] [place] [facility] [address] [facility] [id number], [place] [address]- 1781 Jun, [facility] [address] [facility] [id number], [place] [id number] May, [facility] [place] [facility] [address] [id number] [place] [address] 2546 May, [facility] [place] [facility] [address] [id number] [place] [address]- 2546 Apr, [facility] [place] [facility] [address] [facility] [id number] [place] [address]- 0596 Apr, [facility] [address] [facility] [id number], [place] [id number] Apr, [facility] [place] [facility] [address] [id number] [place] [address]- 3686 Apr, [facility] [place] [facility] [address] [facility] [id number] [place] [address]- 4576 Apr, [facility] [address] [id number] [place] [id number] March, [facility] [place] [facility] [address] [facility] [id number] [place] [address] 2546 March, [facility] [place] [facility] [address] [facility] [id number] [place] [address]- 4576 March, [facility] [address] [facility] [id number], [place] [id number] March, [facility] [place] [facility] [address] [facility] [id number], [place] [address]- 2546 March, [facility] [address] [facility] [id number], [place] [id number] March, [facility] [place] [facility] [address] [id number] [place] [address]- 2546 March, [facility] [address] [facility] [id number], [place] [id number] Feb, [facility] [place] [facility] [address] [facility] [id number] [place] [address] 2546 Feb, [facility] [place] [facility] [address] [facility] [id number] [place] [address]- 2546 Jan, [facility] [address] [facility] [id number], [place] [id number] Jan, [facility] [place] [facility] [address] [facility] [id number], [place] [address]- 7196 Jan, [facility] [place] [facility] [address] [facility] [id number], [place] [address]- 8455 Jan, [facility] [address] [facility] [id number], [place] [id number] Jan, [facility] [address] [facility] [id number], [place] [id number] Dec, [facility] [place] [facility] [address] [facility] [id number], [place] [address]- 8591 Dec, [facility] [place] [facility] [address] [id number], [place] [address]- 9125 Dec, [facility] [address] [id number], [place] [id number] Dec, [facility] [place] [facility] [address]00565100[place], [place] [address]- 6628 Dec, [facility] [address] [facility] [id number], [place] [id number] Dec, [facility] [place] [facility] [address] [id number], [place] [address]- 1556 Dec, [facility] [place] [facility] [address] [id number], [place] [address]- 4020 Dec, [facility] [address] [facility] [id number], [place] [id number] Dec, [facility] [address] [facility] [id number], [place] [id number] Nov, [facility] [place] [facility] [address] [facility] [id number], [place] [address]- 3130 Nov, [facility] [place] [facility] [address]00565100[place], [place] [address]- 4017 Nov, [facility] [address] [facility] [id number], [place] [id number] Nov, [facility] [address] [id number], [place] [id number] Oct, [facility] [place] [facility] [address] [facility] [id number] [place] [address]- 2546 Oct, [facility] [address] [facility] [id number], [place] [id number] Oct, [facility] [place] [facility] [address] [facility] [id number], [place] [address]- 0446 Oct, [facility] [place] [facility] [address] [facility] [id number], [place] [address] Oct, [facility] [place] [facility] [address] [id number] [place] [id number] Oct, [facility] [address] [id number][place] [id number] Oct, [facility] [place] [facility] [id number], [place] [address] Oct, [facility] [place] [facility] [address] [id number], [place] [address] Sep, [facility] [place] [facility] [id number], [place] [address] Sep, [facility] [address] [id number][place] [id number] Sep, [facility] [place] [facility] [id number], [place] [address] Sep, [facility] [place] [facility] [address] [facility] [id number], [place] [address] Sep, [facility] [address] [facility] [id number][place] [id number] Sep, [facility] [address] [facility] [id number][place] [id number] Aug, [facility] [place] [facility] [address] [id number], [place] [address] Aug, [facility] [place] [facility] [address] [id number], [place] [address] Aug, [facility] [address] [id number] [place] [id number] Aug, [facility] [address] [id number][place] [id number] Aug, [facility] [address] [facility] [id number], [place] [address] Aug, [facility] [place] [facility] [address] [facility] [id number], [place] [address] Aug, [facility] [place] [facility] [address] [facility] [id number], [place] [address] Aug, [facility] [address] [facility] [id number][place] [id number] Jul, [facility] [place] [facility] [id number], [place] [address] Jul, [facility] [place] [facility] [address] [id number], [place] [address] Jul, [facility] [address] [id number], [place] [id number] Jul, [facility] [address] [id number][place] [id number] Jul, [facility] [address] [facility] [id number], [place] [address] May, [facility] [place] [facility] [address] [facility] [id number], [place] [address] Apr, [facility] [address] [id number], [place] [id number] Apr, [facility] [address] [id number] [place] [id number] Apr, [facility] [place] [facility] [address] [facility] [id number], [place] [address] March, [facility] [address] [id number][place] [id number] March, [facility] [address] [id number] [place] [id number] March, [facility] [address] [id number] [place] [id number] March, [facility] [address] [id number] [place] [id number] March, [facility] [address] [id number] [place] [id number] March, [facility] [address] [facility] [id number] [place] [address] March, [facility] [address] N [facility] [id number] [place] [address] March, [facility] [address] [address] Feb, [facility] [place] [address] [id number] [place] [id number] Feb, [facility] [place] [address] [id number] [place] [id number] Feb, [facility] [place] [address] [id number] [place] [id number] Feb, [facility] [address], [place] [address] Feb, [facility] [place] [address] [id number] [place] [id number] Feb, [facility] [place] [address] [id number] [place] [id number] Jan, [facility] [address] [id number] [place] [id number] Jan, [facility] [place] [address] [id number] [place] [id number] Dec, [facility] [place] [address] [id number] [place] [id number] Dec, [facility] [address] [facility] [id number], [place] [address] Dec, [facility] [place] [address] [id number] [place] [id number] Dec, [facility] [place] [address] [id number] [place] [id number] Dec, [facility] [place] [address] [id number] [place] [id number] Dec, [facility] [place] [address] [id number] [place] [id number] Dec, [facility] [address] [facility] [id number], [place] [address] Nov, [facility] [place] [address] [id number] [place] [id number] Nov, [facility] [place] [address] [id number] [place] [id number] Nov, [facility] [place] [address] [id number] [place] [id number] Nov, [facility] [place] [address] [id number] [place] [id number] Nov, [facility] [address] [facility] [id number], [place] [address] Oct, [facility] [place] [address] [id number] [place] [id number] Oct, [facility] [place] [address] [id number] [place] [id number] Oct, [facility] [place] [address] [id number] [place] [id number] Oct, [facility] [address], [place] [address] Oct, [facility] [address] [facility] [id number], [place] [address] Oct, [facility] [address] [facility] [id number], [place] [address] Oct, [facility] [place] [address] [id number][place] [id number] Sep, [facility] [address], [place] [address] Sep, [facility] [place] [facility] [address] [id number], [place] [address] Sep, [facility] [place] [address] [id number] [place] [id number] Sep, [facility] [place] [address] [id number][place] [id number] Sep, [facility] [place] [address] [id number][place] [id number] Sep, [facility] [place] [facility] [address] [facility] [id number], [place] [address] Sep, [facility] [place] [facility] [address] [facility] [id number], [place] [address] Sep, [facility] [place] [facility] [address] [facility] [id number], [place] [address] Sep, [facility] [place] [id number][place] [id number] Aug, [facility] [place] [facility] [address] [facility] [id number], [place] [address] Aug, [facility] [place] [address] [id number][place] [id number] Aug, [facility] [place] [facility] [address] [facility] [id number], [place] [address]6 Aug, [facility] [place] [facility] [address] [facility] [id number], [place] [address] Aug, [facility] [place] [address] [id number], [place] [id number] Aug, [facility] [place] [address] [id number], [place] [id number] Aug, [facility] [place] [facility] [address] [facility] [id number], [place] [address] Aug, [facility] [address] [id number], [place] [id number] Aug, [facility] [place] [address] [id number], [place] [id number] Jul, [facility] [place] [address] [id number] [place] 8[place]35[place] Jun, [facility] [place] [address] [id number] [place] [id number] May, [facility] [place] [address] [id number] [place] [id number] May, [facility] [place] [address] [id number] [place] [id number] May, [facility] [place] [address] [id number] [place] [id number] May, [facility] [place] [address] [id number] [place] [id number] May, [facility] [place] [address] [id number] [place] [id number] May, [facility] [place] [address] [id number] [place] [address]65517449 May, [facility] [place] [address] [id number] [place] [id number] Apr, [facility] [place] [address] [id number] [place] [id number] Apr, [facility] [place] [address] [id number] [place] [id number] Apr, [facility] [place] [address] [id number] [place] [id number] Apr, [facility] [place] [address] [id number] [place] [id number] Apr, [facility] [place] [address] [id number] [place] 864396577 Apr, [facility] [place] [address] [id number] [place] [address]7561 March, [facility] [place] [address] [id number] [place] [id number] March, [facility] [place] [address] [id number] [place] [id number] Feb, [facility] [place] [address] [id number] [place] [id number] Feb, [facility] [place] [address] [id number] [place] [id number] Feb, [facility] [place] [address] [id number] [place] [id number] Jan, [facility] [place] [address] [id number] [place] [id number] Jan, [facility] [place] [address] [id number] [place] [id number] Jan, [facility] [place] [address] [id number] [place] [id number] Jan, [facility] [place] [address] [id number] [place] [id number] Dec, [facility] [address] [facility] [id number] [place] [address]- [address] Dec, [facility] [place] [address] [id number] [place] [id number] Dec, [facility] [place] [address] [id number] [place] [id number] Nov, [facility] [place] [address] [id number] [place] [id number] Nov, [facility] [place] [address] [id number] [place] [id number] Nov, [facility] [place] [facility] [address] [address] [address] Oct, [facility] [place] [facility] [address], [place] [address] Oct, [facility] [place] [facility] [address], [place] [address]841 Oct, [facility] [place] [facility] [address] [id number], [place] [address]- [address] Aug, [facility] [place] [facility] [id number] [place] [address]- [address]274 Aug, [facility] [place] [facility] [address], [place] [address]- 2548 Aug, [facility] [place] [facility] [id number] [place] [address]- 1744 March, [facility] [place] [facility] [address] [id number] [place] [address]- [address]500 Oct, [facility] [place] [facility] [address] [id number] [place] [address]- 1221 Oct, [facility] [place] [facility] [address] [id number] [place] [address] Sep, [facility] [place] [facility] [address] [id number] [place] [address]- [address]39 Sep, [facility] [place] [facility] [address] [id number] [place] [address]- 1828 Sep, [facility] [place] [facility] [address] [id number] [place] [address]- 0351 Aug, [facility] [place] [facility] [address] [id number] [place] [address]- 8767 Aug, [facility] [place] [facility] [address] [id number] [place] [address]- 9805 Jun, [facility] [place] [facility] [address] [id number] [place] [address]- 8570 May, [facility] [place] [facility] [address] [id number] [place] [address]- 3609 Jan, [facility] [place] [facility] [address] [id number], [place] [address] Nov, [facility] [place] [facility] [address] [id number] [place] [address]- 5769 Oct, [facility] [place] [facility] [address] [id number] [place] [address]- [address] Sep, [facility] [place] [facility] [address] [id number] [place] [address]- 3586 Sep, [facility] [place] [facility] [address] [id number] [place] [address]- 5065 Sep, [facility] [place] [facility] [address] [facility] [id number] [place] [address]- 3006 Sep, [facility] [address] [facility] [id number], [place] [address]- [address]45 Sep, [facility] [address] [id number], [place] [address]- [address]326 Aug, [facility] [address] [facility] [id number], [place] [address]- 3871 Aug, [facility] [address] [facility] [id number], [place] [address]- [address]33 Jul, [facility] [address] [facility] [id number][place]138- [address]16 Jun, IMMUNIZATIONS No Known Immunizations SOCIAL HISTORY Never Assessed REASON FOR VISIT Requesting Labs to be done PLAN OF CARE VITAL SIGNS MEDICATIONS Unknown [...] 08/2016 Hospitalization History chest pain ED visit [facility], pt scheduled for heart cath on May Hospitalization History [place] 2012 Hospitalization History Chest pain-[facility] 12/22/16
--- OUTSIDE RECORDS SUMMARY | 2018-04-21 21:48 | XMS REPORT ---
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 Name Role Phone OSWALDO ALTAMIRANO Unavailable PROBLEMS Type Condition ICD9-CM Code OPH44-IA Code Onset Dates Condition Status SNOMED Code Problem Syncope, unspecified syncope type R55 Active 648763312 Problem Lumbago with sciatica, right side M54.41 Active 735774263 Problem Lumbago with sciatica, left side M54.42 Active 063292372 Problem Stage 2 chronic kidney disease N18.2 Active 996837978 Problem Abnormal mammogram R92.8 Active 073363533 Problem Other chronic pain G89.29 Active 57626595 Problem Other seasonal allergic rhinitis J30.2 Active 679269873 Problem Type 2 diabetes mellitus with diabetic polyneuropathy E11.42 Active 06831985 Problem nursing home 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 Active 974401619 Problem Generalized anxiety disorder F41.1 Active 94278020 Problem Sleep disturbance G47.9 Active 61156920 Problem Episodic mood disorder F39 Active 76553008 Problem Dyslipidemia E78.5 Active 298791926 Problem Low serum HDL R74.8 Active 039250292 Problem Depression, unspecified depression type F32.9 Active 83015056 Problem Serum creatinine raised R79.89 Active 018197319 Problem Polyneuropathy associated with underlying disease G63 Active 644427448 ALLERGIES No Information ENCOUNTERS Encounter Location Date Diagnosis [facility] [address] [facility] [id number], [place] [address] March, [facility] [address] [id number][place] [id number] Feb, Dental examination Z01.20 [facility] [address] [facility] [id number], [place] [address] Feb, Labile hypertension R09.89 ; Syncope, unspecified syncope type R55 ; Chest pain, unspecified type R07.9 and Dyslipidemia E78.5 [facility] [id number] [place] [address]01- 1027 Feb, [facility] [id number] [place] [address] 59586- 0223 Jan, [facility] [address] [id number][place] [id number] Jan, Dental examination Z01.20 [facility] [id number] [place] [address] 06506- 1899 Jan, Acute non-recurrent maxillary sinusitis J01.00 and Dyslipidemia E78.5 [facility] [address] [place], [place] [id number] [place] [id number] Jan, Dental examination Z01.20 and Dental caries K02.9 [facility] [address] [place] [address] [place] [id number] [place] [address] [id number] Jan, [facility] [address] [facility] [id number] [place] [address] [id number] Dec, Dental examination Z01.20 [facility] [id number] [place] [address]186 -8368 Dec, Seasonal allergic rhinitis, unspecified trigger J30.2 [place] [id number] [place] [address] 91539- 2890 Nov, [place] [id number] [place] [address] 48406- 1798 Nov, Type 2 diabetes mellitus with diabetic polyneuropathy E11.42 ; Dyslipidemia E78.5 ; Lumbago with sciatica, right side M54.41 ; Lumbago with sciatica, left side M54.42 ; 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 ; Polyneuropathy associated with underlying disease G63 ; Stage 2 chronic kidney disease N18.2 and Syncope, unspecified syncope type R55 [place] [id number] [place] [address] 82148- 5928 Oct, Type 2 diabetes mellitus with diabetic polyneuropathy E11.42 ; Acute otitis externa of left ear, unspecified type H60.502 ; Overweight (BMI 25.0-29.9) E66.3 ; Dyslipidemia E78.5 and Polyneuropathy associated with underlying disease G63 [place] [address] [address]44- 0233 Sep, [place] [address] 41335- 1333 Aug, Abnormal mammogram R92.8 [place] [address] 16682- 0117 Aug, Type 2 diabetes mellitus with diabetic polyneuropathy E11.42 [place] [address] 69579- 0259 Aug, [place] [address] 40008- 3928 Aug, Type 2 diabetes mellitus with diabetic polyneuropathy E11.42 ; Syncope, unspecified syncope type R55 ; Other chronic pain G89.29 and Encounter for immunization Z23 [place] [address] 89647- 0460 Aug, Type 2 diabetes mellitus with diabetic polyneuropathy E11.42 [place] [address] 10262- 0112 Jul, Type 2 diabetes mellitus with diabetic polyneuropathy E11.42 and Serum creatinine raised R79.89 [place] [address] 67211- 4099 Jul, Type 2 diabetes mellitus with diabetic polyneuropathy E11.42 and Serum creatinine raised R79.89 [place] [address] 39206- 5222 May, [place] [address] 35977- 4151 May, [place] [address]00565100[place], [place] [address] May, Head injury, initial encounter S09.90XA ; Facial pain R51 ; Neck pain M54.2 and Fall, initial encounter W19.XXXA [place] [address]00565100[place], [place] [address] 66[address] May, Type 2 diabetes mellitus with diabetic polyneuropathy E11.42 [place] [id number] [place] [address] 51558- 7059 May, [place] [id number] [place] [address] 79442- 9182 May, Type 2 diabetes mellitus with diabetic polyneuropathy E11.42 [place] [address] [id number] [address] 37[address] May, Dyslipidemia E78.5 ; 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 ; Type 2 diabetes mellitus with diabetic polyneuropathy E11.42 ; Generalized anxiety disorder F41.1 and Other seasonal allergic rhinitis J30.2 [place] [address]00565100[place], [place] [address] 9[address] Apr, Type 2 diabetes mellitus with diabetic polyneuropathy E11.42 [place] [address]00565100[place], [place] [address] March, [place] [address]65100[place], [place] [address] March, Abnormal mammogram R92.8 [place] [address]00565100[place], [place] [address] Feb, Abnormal mammogram R92.8 [place] [address] [id number], [place] [address] 7[address] Feb, Diabetes type 2, uncontrolled E11.65 [place] [address]00565100[place], [place] [address] Feb, Screening for breast cancer Z12.39 [place] [address]65100[place], [place] [address] 27 Jan, 2017 Screening for breast cancer Z12.39 [place] [id number] [place] [address] 96694- 2617 Jan, Type 2 diabetes mellitus with diabetic polyneuropathy E11.42 ; 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 ; Other viral agents as the cause of diseases classified elsewhere B97.89 and Acute upper respiratory infection, unspecified J06.9 [place] [id number] [place] [address] 15730- 6613 Jan, [place] [id number] [place] [address] 21221- 7159 Dec, Diabetes type 2, uncontrolled E11.65 ; Dyslipidemia E78.5 ; Generalized anxiety disorder F41.1 ; Depression, unspecified depression type F32.9 ; nursing home 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 and Polyneuropathy associated with underlying disease G63 [address] [place] [address] 35100- 8636 16 Dec, 2016 [place] [id number] [place] [address] 33153- 1974 Dec, [place] [id number] [place] [address] 36721- 4252 Dec, [address] [place] [address] 84506- 8643 Dec, [place] [id number] [place] [address] 47736- 1608 Oct, Well woman exam Z01.419 ; Screening for breast cancer Z12.39 ; 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 ; Type 2 diabetes mellitus without complications E11.9 and Encounter for immunization Z23 [address]00565100[place], [place] [address] Sep, [place] [id number] [place] [address] 73165- 7877 Sep, Diabetes type 2, uncontrolled E11.65 ; Dyslipidemia E78.5 and Depression, unspecified depression type F32.[address] 41276- 5488 Aug, Diabetes type 2, uncontrolled E11.65 ; Encounter for immunization Z23 ; Nasal congestion R09.81 and Ear pressure, bilateral H93.8X3 [address] 05832- 2329 Jul, Eustachian tube dysfunction, left H69.82 [place] [address] 11785- 6012 Jun, [address] 08427- 7365 Jun, Hospital discharge follow-up Z09 ; Syncope, unspecified syncope type R55 and Acute suppurative otitis media of left ear without spontaneous rupture of tympanic membrane, recurrence not specified H66.002 [place] [id number] [place] [address] 26610- 8216 May, [address] 56140- 7045 May, [place] [address] 15141- 8730 May, [place] [address] 71853- 0244 May, Diabetes type 2, uncontrolled E11.65 ; [...] disturbance G47.9 and Generalized anxiety disorder F41.[address] 16606- 2546 March, [facility] [address] [facility] [id number][place] [address] March, Syncope, unspecified syncope type R55 and Depression, unspecified depression type F32.9 [facility] [address] [id number][place] [address] March, Orthostatic hypotension I95.1 [facility] [address] [id number][place] [address] March, [facility] [address] [facility] [id number], [place] [address] 2546 March, [facility] [address] [facility] [id number], [place] [id number] Feb, [facility] [address] [id number], [place] [id number] Feb, Dental examination Z01.20 [facility] [address] [id number][place] [address] Jan, [facility] [address] [id number][place] [id number] Jan, [facility] [address] [id number], [place] [address] Dec, Diabetes type 2, uncontrolled E11.65 [facility] [address] [id number], [place] [id number] Nov, [facility] [address] [id number], [place] [address] Nov, Encounter for dental examination Z01.[address] [facility] [address] [id number][place] [id number] Nov, Dental examination Z01.20 [facility] [address] [id number], [place] [address] Sep, Diabetes type 2, uncontrolled E11.[address] [facility] [address] [id number], [place] [address] Sep, Encounter for dental examination Z01.20 and Dental caries, unspecified K02.9 [facility] [address]65100[place] [address] Sep, Bipolar 2 disorder F31.81 [facility] [id number] [place] [address] [id number] Aug, [facility] [id number] [place] [address] [id number] Aug, Follow up V67.9 [facility] [id number] [place] [address] 03936- 1375 Jul, Bipolar disorder, unspecified 296.80 [facility] [id number] [place] [address] [id number] Jul, Thyroid enlarged 240.9 and Bipolar disorder, unspecified 296.80 [facility] [place] [id number] [place] [address] [id number] Jun, Diabetes mellitus type 2, uncontrolled 250.02 ; Bipolar disorder, unspecified 296.80 and Rash 782.1 [facility] [place] [id number] [place] [address] [id number] Jun, [facility] [id number] [place] [address] [id number] May, Urinary tract infection 599.0 [facility] [id number] [place] [address] [id number] May, Urinary tract infection 599.0 [facility] [id number] [place] [address] [id number] May, [facility] [address] [place] [address] [id number] May, Diabetes mellitus type 2, uncontrolled 250.02 and Pica in adults 307.52 [facility] [id number] [place] [address] [id number] Apr, Follow up V67.9 and Diabetes mellitus type 2, uncontrolled 250.02 [facility] [place] [id number] [place] [address] [id number] Apr, [facility] [address] [place] [address] [id number]- 4188 Apr, [facility] [id number] [place] [address] [id number] Apr, Hyperlipidemia 272.4 [facility] [id number], [place] [id number] March, Diabetes type 2, uncontrolled 250.02 [facility] [id number], [place] [id number] March, Diabetes mellitus type 2, uncontrolled 250.02 [facility] [id number], [place] [address] March, Diabetes type 2, uncontrolled 250.02 [facility] [id number], [place] [address] March, [facility] [id number] [place] [address] [id number] March, [facility] [id number] [place] [address] [id number] Feb, [facility] [place] [facility] [address] [place] [address] 48241- 2546 Feb, [facility] [place] [facility] [address] [id number], [place] [address]- 2546 Feb, [facility] [id number], [place] [id number] Jan, [facility] [place] [facility] [id number] [place] [address] 42270- 7856 Jan, [facility] [place] [facility] [address]00565100[place], [place] [address]- 2546 Jan, [facility] [id number], [place] [id number] Jan, [facility] [place] [facility] [address]00565100[place], [place] [address]- 9906 Jan, [facility] [place] [facility] [id number] [place] [address] 13483- 2546 Jan, [facility] [id number], [place] [id number] Jan, [facility] [place] [facility] [id number] [place] [address] 09748- 4329 Jan, [facility] [place] [facility] [address] [facility] [id number], [place] [address]- 2075 Dec, [facility] [address] [facility] [id number] [place] [id number] Dec, [facility] [place] [facility] [address] [facility] [id number] [place] [address]- 3326 Dec, [facility] [address] [facility] [id number] [place] [id number] Dec, [facility] [place] [facility] [address] [facility] [id number], [place] [address]- 4562 Dec, [facility] [address] [facility] [id number] [place] [id number] Dec, [facility] [place] [facility] [address] [id number], [place] [address]- 9556 Dec, [facility] [place] [facility] [address] [id number], [place] [address]- 6321 Dec, 2014 [facility] [address] [facility] [id number] [place] [id number] Dec, [facility] [address] [facility] [id number] [place] [id number] Dec, [facility] [place] [facility] [address]00565100[place], [place] [address]- 6469 Dec, [facility] [place] [facility] [address]65100[place], [place] [address]- 1663 Nov, [facility] [place] [facility] [address] [facility] [id number], [place] [address]- 8763 Oct, [facility] [place] [facility] [address] [facility] [id number], [place] [address]- 5574 Oct, [facility] [address] [facility] [id number], [place] [id number] Sep, [facility] [place] [facility] [address] [id number], [place] [address]- 2938 Sep, [facility] [address] [id number] [place] [id number] Sep, [facility] [place] [facility] [address] [facility] [id number], [place] [address]- 6939 Sep, [facility] [address] [facility] [id number] [place] [id number] Aug, [facility] [place] [facility] [address] [facility] [id number], [place] [address]- 4978 Aug, [facility] [address] [facility] [id number], [place] [id number] Aug, [facility] [place] [facility] [address] [facility] [id number], [place] [address]- 0094 Aug, [facility] [place] [facility] [address] [facility] [id number], [place] [address]- 3960 Jul, [facility] [place] [facility] [address]00565100[place], [place] [address]- 8560 Jul, [facility] [address] [facility] [id number], [place] [address]89191915 Jul, [facility] [place] [facility] [address] [facility] [id number], [place] [address]- 2310 Jul, [facility] [address] [facility] [id number], [place] [id number] Jun, [facility] [address] [facility] [id number], [place] [id number] Jun, [facility] [place] [facility] [address] [facility] [id number], [place] [address]- 8154 Jun, [facility] [place] [facility] [address] [facility] [id number], [place] [address]- 9951 Jun, [facility] [address] [facility] [id number], [place] [id number] Jun, [facility] [place] [facility] [address] [facility] [id number], [place] [address]- 3946 Jun, [facility] [address] [facility] [id number], [place] [id number] May, [facility] [place] [facility] [address] [id number] [place] [address] 2546 May, [facility] [place] [facility] [address] [id number] [place] [address]- 2546 Apr, [facility] [place] [facility] [address] [facility] [id number] [place] [address]- 0066 Apr, [facility] [address] [facility] [id number], [place] [id number] Apr, [facility] [place] [facility] [address] [id number] [place] [address]- 4126 Apr, [facility] [place] [facility] [address] [facility] [id number] [place] [address]- 2726 Apr, [facility] [address] [id number] [place] [id number] March, [facility] [place] [facility] [address] [facility] [id number] [place] [address] 2546 March, [facility] [place] [facility] [address] [facility] [id number] [place] [address]- 2896 March, [facility] [address] [facility] [id number], [place] [id number] March, [facility] [place] [facility] [address] [facility] [id number], [place] [address]- 2546 March, [facility] [address] [facility] [id number], [place] [id number] March, [facility] [place] [facility] [address] [id number] [place] [address]- 2546 March, [facility] [address] [facility] [id number], [place] [id number] Feb, [facility] [place] [facility] [address] [facility] [id number] [place] [address] 2546 Feb, [facility] [place] [facility] [address] [facility] [id number] [place] [address]- 2546 Jan, [facility] [address] [facility] [id number], [place] [id number] Jan, [facility] [place] [facility] [address] [facility] [id number], [place] [address]- 3480 Jan, [facility] [place] [facility] [address] [facility] [id number], [place] [address]- 1703 Jan, [facility] [address] [facility] [id number], [place] [id number] Jan, [facility] [address] [facility] [id number], [place] 820444762 Dec, [facility] [place] [facility] [address] [facility] [id number], [place] [address]- 0585 Dec, [facility] [place] [facility] [address] [id number], [place] [address]- 5697 Dec, [facility] [address] [id number], [place] [id number] Dec, [facility] [place] [facility] [address]00565100[place], [place] [address]- 6438 Dec, [facility] [address] [facility] [id number], [place] [id number] Dec, [facility] [place] [facility] [address] [id number], [place] [address]- 1961 Dec, [facility] [place] [facility] [address] [id number], [place] [address]- 3783 Dec, [facility] [address] [facility] [id number], [place] [id number] Dec, [facility] [address] [facility] [id number], [place] [id number] Nov, [facility] [place] [facility] [address] [facility] [id number], [place] [address]- 2618 Nov, [facility] [place] [facility] [address]00565100[place], [place] [address]- 0088 Nov, [facility] [address] [facility] [id number] [id number] Nov, [facility] [address] [id number][place] [id number] Oct, [facility] [place] [facility] [address] [facility] [id number] [place] [address] Oct, [facility] [address] [facility] [id number][place] [id number] Oct, [facility] [place] [facility] [address] [facility] [id number], [place] [address] Oct, [facility] [place] [facility] [address] [facility] [id number], [place] [address] Oct, [facility] [place] [facility] [id number] [place] [address] Oct, [facility] [address] [id number] [id number] Oct, [facility] [place] [facility] [id number], [place] [address] Oct, [facility] [place] [facility] [address] [id number], [place] [address] Sep, [facility] [place] [facility] [id number], [place] [address] Sep, [facility] [address] [id number] [id number] Sep, [facility] [place] [facility] [id number], [place] [address] Sep, [facility] [place] [facility] [address] [facility] [id number], [place] [address] Sep, [facility] [address] [facility] [id number][place] [id number] Sep, [facility] [address] [facility] [id number][place] [id number] Aug, [facility] [place] [facility] [address] [id number], [place] [address] Aug, [facility] [place] [facility] [address] [id number], [place] [address] Aug, [facility] [address] [id number] [place] [id number] Aug, [facility] [address] [id number][place] [id number] Aug, [facility] [address] [facility] [id number], [place] [address] Aug, [facility] [place] [facility] [address] [facility] [id number], [place] [address] Aug, [facility] [place] [facility] [address] [facility] [id number], [place] [address] Aug, [facility] [address] [facility] [id number][place] [id number] Jul, [facility] [place] [facility] [id number], [place] [address] Jul, [facility] [place] [facility] [address] [id number], [place] [address] Jul, [facility] [address] [id number][place] [id number] Jul, [facility] [address] [id number][place] [id number] Jul, [facility] [address] [facility] [id number], [place] [address] May, [facility] [place] [facility] [address] [facility] [id number], [place] [address] Apr, [facility] [address] [id number][place] [id number] Apr, [facility] [place] [address] [id number] [place] [id number] Apr, [facility] [place] [facility] [address] [facility] [id number], [place] [address] March, [facility] [place] [address] [id number][place] [id number] March, [facility] [place] [address] [id number] [place] [id number] March, [facility] [place] [address] [id number] [place] [phone] March, [facility] [place] [address] [id number] [place] [id number] March, [facility] [place] [address] [id number] [place] [id number] March, [facility] [address] [facility] [id number] [place] [address] March, [facility] [address] [facility] [id number] [place] [address] March, [facility] [address], [place] [address] Feb, [facility] [place] [address] [id number] [place] [id number] Feb, [facility] [place] [address] [id number] [place] [id number] Feb, [facility] [place] [address] [id number] [place] [id number] Feb, [facility] [address], [place] [address] Feb, [facility] [place] [address] [id number] [place] [id number] Feb, [facility] [place] [address] [id number] [place] [id number] Jan, [facility] [place] [address] [id number] [place] [id number] Jan, [facility] [place] [address] [id number] [place] [id number] Dec, [facility] [place] [address] [id number] [place] [id number] Dec, [facility] [address] [facility] [id number], [place] [address] Dec, [facility] [address] [id number] [place] [id number] Dec, [facility] [place] [address] [id number] [place] [id number] Dec, [facility] [place] [address] [id number] [place] [id number] Dec, [facility] [place] [address] [id number] [place] [id number] Dec, [facility] [address] [facility] [id number], [place] [address] Nov, [facility] [place] [address] [id number] [place] [id number] Nov, [facility] [address] [id number] [place] [id number] Nov, [facility] [address] [id number] [place] [id number] Nov, [facility] [place] [address] [id number] [place] [id number] Nov, [facility] [address] [facility] [id number], [place] [address] Oct, [facility] [address] [id number] [place] [id number] Oct, [facility] [address] [id number] [place] [id number] Oct, [facility] [address] [id number] [place] [id number] Oct, [facility] [address], [place] [address] Oct, [facility] [address] [facility] [id number], [place] [address] Oct, [facility] [address] [facility] [id number], [place] [address] Oct, [facility] [address] [id number][place] [id number] Sep, [facility] [address], [place] [address] Sep, [facility] [place] [facility] [address] [id number], [place] [address] Sep, [facility] [address] [id number] [place] [id number] Sep, [facility] [address] [id number], [place] [id number] Sep, [facility] [address] [id number], [place] [id number] Sep, [facility] [place] [facility] [address] [facility] [id number], [place] [address] Sep, [facility] [place] [facility] [address] [facility] [id number], [place] [address] Sep, [facility] [place] [facility] [address] [facility] [id number], [place] [address] Sep, [facility] [place] [id number] [id number] Aug, [facility] [place] [facility] [address] [facility] [id number], [place] [address] Aug, [facility] [address] [id number], [place] [id number] Aug, [facility] [place] [facility] [address] [facility] [id number], [place] [address] Aug, [facility] [place] [facility] [address] [facility] [id number], [place] [address] Aug, [facility] [address] [id number], [place] [id number] Aug, [facility] [address] [id number], [place] 789603085 Aug, [facility] [place] [facility] [address] [facility] [id number], [place] [address] Aug, [facility] [address] [id number], [place] [id number] Aug, [facility] [address] [id number], [place] [id number] Jul, [facility] [address] [id number] [place] [id number] Jun, [facility] [address] [id number] [place] [id number] May, [facility] [address] [id number] [place] [id number] May, [facility] [place] [address] [id number] [place] [id number] May, [facility] [address] [id number] [place] [id number] May, [facility] [address] [id number] [place] [id number] May, [facility] [place] [address] [id number] [place] [address]69[place]0106 May, [facility] [place] [address] [id number] [place] [phone] May, [facility] [place] [address] [id number] [id number] Apr, [facility] [address] [id number] [place] [id number] Apr, [facility] [place] [address] [id number] [place] [id number] Apr, [facility] [place] [address] [id number] [place] [address] Apr, [facility] [place] [address] [id number] [place] [id number] Apr, [facility] [place] [address] [id number] [place] [id number] Apr, [facility] [place] [address] [id number] [place] [id number] March, [facility] [place] [address] [id number] [place] [id number] March, [facility] [place] [address] [id number] [place] [id number] Feb, [facility] [address] [id number] [place] [id number] Feb, [facility] [address] [id number] [place] [id number] Feb, [facility] [address] [id number] [place] [id number] Jan, [facility] [place] [address] [id number] [place] [id number] Jan, [facility] [address] [id number] [place] [id number] Jan, [facility] [address] [id number] [place] [id number] Jan, [facility] [address] [id number] [place] [id number] Dec, [facility] [address] [facility] [id number] [place] [address] Dec, [facility] [place] [address] [id number] [place] [id number] Dec, [facility] [address] [id number] [place] [id number] Nov, [facility] [address] [id number] [place] [id number] Nov, [facility] [address] [id number] [place] [id number] Nov, [facility] [place] [facility] [address] [address] Oct, [facility] [place] [facility] [id number], [place] [address] Oct, [facility] [place] [facility] [address]65100[place], [place] [address] Oct, [facility] [place] [facility] [id number], [place] [address]- [address] Aug, [facility] [place] [facility] [id number] [place] [address]- 6[address] Aug, [facility] [place] [facility] [address], [place] [address]- [address] Aug, [facility] [place] [facility] [id number] [place] [address]- 65[address] March, [facility] [place] [facility] [address] [id number] [place] [address]- 2868 Oct, [facility] [place] [facility] [address] [id number] [place] [address]- 4517 Oct, [facility] [place] [facility] [address] [id number] [place] [address]- 66[address] Sep, [facility] [place] [facility] [address] [id number] [place] [address]- 1060 Sep, [facility] [place] [facility] [address] [id number] [place] [address]- 9[address] Sep, [facility] [place] [facility] [address] [id number] [place] [address]- 99[address] Aug, [facility] [place] [facility] [address] [id number] [place] [address]- [address] Aug, [facility] [place] [facility] [address] [id number] [place] [address]- 9[address] Jun, [facility] [place] [facility] [address] [id number] [place] [address]- 0[address] May, [facility] [place] [facility] [address] [id number] [place] [address]- 7712 Jan, [facility] [place] [facility] [address] [id number], [place] [address]- 1618 Nov, [facility] [place] [facility] [address] [id number] [place] [address]- 8[address] Oct, [facility] [place] [facility] [address] [id number] [place] [address]- 99[address] Sep, [facility] [place] [facility] [address] [id number] [place] [address]- 95[address] Sep, [facility] [place] [facility] [address] [id number] [place] [address]- 9656 Sep, [facility] [place] [facility] [address] [facility] [id number] [place] [address]- [address] Sep, [facility] [address] [facility] [id number], [place] [address]- [address] Sep, [facility] [address] [id number], [place] [address] Aug, [facility] [address] [facility] [id number], [place] [address]- [address] Aug, [facility] [address] [facility] [id number], [place] [address]- [address] Jul, [facility] [address] [facility] [id number][place]96[place] Jun, IMMUNIZATIONS No Known Immunizations SOCIAL HISTORY Never Assessed REASON FOR VISIT Lab (walk-in) PLAN OF CARE VITAL SIGNS MEDICATIONS Unknown Medications RESULTS No Results PROCEDURES Procedure Date Ordered Result Body Site LAB NOT BILLED BY [facility] Jul 20, 2017 URINALYSIS, AUTO, W/O SCOPE Jul 20, 2017 VENIPUNCT, ROUTINE* Jul 20, 2017 INSTRUCTIONS MEDICATIONS ADMINISTERED No Known Medications MEDICAL [...] 08/2016 Hospitalization History chest pain ED visit [facility], pt scheduled for heart cath on May Hospitalization History [place] 2012 Hospitalization History Chest pain-[facility] 12/22/16
--- OUTSIDE RECORDS SUMMARY | 2018-04-21 21:48 | XMS REPORT ---
Author Author SHAHEEN SOSA eClinicalWorks Address Unknown Phone Unavailable Care Team Providers Care Sausage Grinder Name Role Phone SHAHEEN SOSA Unavailable Allergies, Adverse Reactions, Alerts Substance Reaction Event Type Codeine Phosphate dizziness Drug Allergy dental metal rash Non Drug Allergy Problems Problem Type Condition ICD-9 Code Onset Dates Condition Status Assessment Bipolar disorder, unspecified 296.80 Active Problem Generalized anxiety disorder 300.02 Active Assessment Diabetes mellitus type 2, uncontrolled 250.02 Active Assessment Rash 782.1 Active Problem Hyperlipidemia 272.4 Active Problem Diabetes mellitus type 2, uncontrolled 250.02 Active Problem Urinary tract infection 599.0 Active Problem Bipolar disorder, unspecified 296.80 Active Problem Dysfunction of Eustachian tube 381.81 Active Problem Unspecified episodic mood disorder 296.90 Active Problem Unspecified sleep disturbance 780.50 Active Medications Medication Code System Code Instructions Start Date End Date Status Dosage Abilify [facility] [address]-18 5 MG Orally Once a day Jul 01, 2015 1 tablet Polysaccharide Iron Complex [facility] [address]-00 150 MG Orally 2 times a day May 23, 2015 1 capsule Montelukast Sodium [facility] 89011769809 10MG TAKE ONE TABLET BY MOUTH ONCE DAILY IN THE EVENING Levemir [facility] [address]-92 100 UNIT/ML Dec 24, 2014 inject by Subcutaneous route 2 times per day 60 U in am and 75U at bedtime Vitamin B-[address] [facility] [address]-36 100 MCG Orally Once a day [address] [facility] [address]-74 60 MG Sep 17, 2014 take 1 capsule (60 mg) by oral route once daily Victoza [facility] [address]-70 18 MG/3ML Subcutaneous Once a day 1.8mg Gabapentin [facility] [address]-25 400 mg Dec 18, 2014 take 1 capsule by Oral route 1 time per day at bedtime Nexium [facility] [address]-10 20 MG Orally Once a day [address] [facility] [address]-37 10 MG Orally Once a day 1 tablet in the evening Cetirizine HCl [facility] [address]-68 10 MG Orally Once a day 1 tablet as needed Albuterol Sulfate [facility] [address]-97 90 mcg/actuation Inhalation every 4- 6 hrs prn cough, shortness of breath or wheezing Dec 12, 2013 [address] [facility] [address]-61 1,000 mg January 17, 2015 Take 1 tablet by Oral route 2 times per day Triamcinolone Acetonide [facility] [address]-69 0.5 % Externally Twice a day Jul 01, 2015 1 application to affected area Procedures Procedure Coding System Code Date Office Visit, Est Pt., Level 3 CPT-4 26983 Jul 01, 2015 GLYCATED HEMOGLOBIN TEST CPT-4 08580 Jul 01, 2015 Vital Signs Date/Time: Jul 01, 2015 Temperature 97.8 F Weight 192 lbs Height 67 in BMI 30.07 Index Blood Pressure Diastolic 70 mmHg Blood Pressure Systolic 124 mmHg Cardiac Monitoring Heart Rate 78 bpm Results Name Result Date Reference Range Unit Abnormality Flag A1C (IN HOUSE) Summary Purpose eClinicalWorks Submission
--- OUTSIDE RECORDS SUMMARY | 2018-04-21 21:48 | XMS REPORT ---
Author Author AIDEN MORALES [facility] eClinicalWorks Address Unknown Phone Unavailable Care Team Providers Care Belt And Link Shop Supervisor Name Role Phone AIDEN MORALES CP Unavailable Allergies, Adverse Reactions, Alerts Substance Reaction Event Type Codeine Phosphate dizziness Drug Allergy dental metal rash Non Drug Allergy Problems Problem Type Condition Code Onset Dates Condition Status Problem Generalized anxiety disorder 300.02 Active Assessment Bipolar disorder, unspecified 296.80 Active Problem Hyperlipidemia 272.4 Active Problem Diabetes mellitus type 2, uncontrolled 250.02 Active Problem Urinary tract infection 599.0 Active Problem Bipolar disorder, unspecified 296.80 Active Problem Dysfunction of Eustachian tube 381.81 Active Problem Unspecified episodic mood disorder 296.90 Active Problem Unspecified sleep disturbance 780.50 Active Medications Medication Code System Code Instructions Start Date End Date Status Dosage Victoza [facility] [address]-32 18 MG/3ML Subcutaneous Once a day 1.8mg Montelukast Sodium [facility] 16517212695 10MG TAKE ONE TABLET BY MOUTH ONCE DAILY IN THE EVENING Albuterol Sulfate [facility] [address]-35 90 mcg/actuation Inhalation every 4- 6 hrs prn cough, shortness of breath or wheezing Dec 12, 2013 2 puffs Abilify [facility] [address]-74 10 MG Orally Once a day Aug 07, 2015 1 tablet Lovastatin [facility] [address]-07 20 MG Orally Once a day April 29, 2015 1 tablet with a meal Cymbalta [facility] [address]-78 60 MG Sep 17, 2014 take 1 capsule (60 mg) by oral route once daily Triamcinolone Acetonide [facility] [address]-52 0.5 % Externally Twice a day Jul 01, 2015 1 application to affected area Trutest Blood Glucose Test Strip ND 0 Test Strips 3 times a day March 28, 2015 as directed Cymbalta [facility] [address]-08 60 MG Orally Once a day Aug 07, 2015 1 capsule Trutest Blood Glucose Meter ND 0 March 28, 2015 as directed Nexium [facility] [address]-73 20 MG Orally Once a day 1 capsule metformin [facility] [address]-85 1,000 mg January 17, 2015 Take 1 tablet by Oral route 2 times per day Cetirizine HCl [facility] 61629017070 10MG TAKE ONE TABLET BY MOUTH ONCE DAILY Gabapentin [facility] [address]-09 400 mg Dec 18, 2014 take 1 capsule by Oral route 1 time per day at bedtime Vitamin B-12 [facility] [address]-42 100 MCG Orally Once a day 1 tablet Levemir [facility] [address]-70 100 UNIT/ML Dec 24, 2014 inject by Subcutaneous route 2 times per day 60 U in am and 75U at bedtime Polysaccharide Iron Complex [facility] [address]-78 150 MG Orally 2 times a day May 23, 2015 1 capsule Singulair [facility] [address]-23 10 MG Orally Once a day 1 tablet in the evening Procedures Procedure Coding System Code Date Psych diagnostic evaluation w/medical services, new patient CPT-4 74971 Aug 07, 2015 Vital Signs Date/Time: Aug 07, 2015 Cardiac Monitoring Heart Rate 80 bpm Weight 188.2 lbs Height 67.7 in BMI 28.87 Index Blood Pressure Diastolic 75 mmHg Blood Pressure Systolic 120 mmHg Results No Known Results Summary Purpose eClinicalWorks Submission
--- OUTSIDE RECORDS SUMMARY | 2018-04-21 21:48 | XMS REPORT ---
Author Author OSWALDO ALTAMIRANO Organization eClinicalWorks Address Unknown Phone Unavailable Care Team Providers Care Refrigeration Supervisor Name Role Phone OSWALDO ALTAMIRANO CP Unavailable Allergies, Adverse Reactions, Alerts Substance Reaction Event Type Codeine Phosphate dizziness Drug Allergy dental metal rash Non Drug Allergy Problems Problem Type Condition Code Onset Dates Condition Status Problem Episodic mood disorder F39 Active Problem Diabetes type 2, uncontrolled E11.65 Active Problem Dyslipidemia E78.5 Active Problem Polyneuropathy associated with underlying disease G63 Active Assessment Other chronic pain G89.29 Active Problem Other seasonal allergic rhinitis J30.2 Active Assessment Episodic mood disorder F39 Active Assessment Sleep disturbance G47.9 Active Problem Syncope, unspecified syncope type R55 Active Problem Other chronic pain G89.29 Active Problem Depression, unspecified depression type F32.9 Active Problem Lumbago with sciatica, right side M54.41 Active Problem Lumbago with sciatica, left side M54.42 Active Assessment Other seasonal allergic rhinitis J30.2 Active Assessment Polyneuropathy associated with underlying disease G63 Active Assessment Lumbago with sciatica, left side M54.42 Active Assessment Lumbago with sciatica, right side M54.41 Active Assessment Depression, unspecified depression type F32.9 Active Assessment Diabetes type 2, uncontrolled E11.65 Active Assessment Dyslipidemia E78.5 Active Problem Generalized anxiety disorder F41.1 Active Assessment Generalized anxiety disorder F41.1 Active Assessment Syncope, unspecified syncope type R55 Active Problem Sleep disturbance G47.9 Active Medications Medication Code System Code Instructions Start Date End Date Status Dosage Gabapentin [facility] 02789731743 400MG TAKE ONE CAPSULE BY MOUTH ONCE DAILY AT BEDTIME Levemir [facility] [address]-89 100 UNIT/ML Subcutaneous 2 times a day Dec 24, 2014 inject 60U in am and 75U at HS Victoza [facility] 51552044338 18MG/3ML Subcutaneous Once a day 1.8mg Polysaccharide Iron Complex [facility] [address]-59 150 MG Orally 2 times a day May 23, 2015 1 capsule Vitamin B-12 [facility] [address]-33 100 MCG Orally Once a day 1 tablet Cymbalta [facility] [address]-09 60 mg Orally Once a day Aug 07, 2015 1 capsule Lipitor [facility] [address]-59 10 MG Orally Once a day January 08, 2016 1 tablet Trutest Blood Glucose Test Strip NDC 0 not defined Metformin HCl [facility] [address]-86 1000MG Orally 2 times a day 1 tablet Albuterol Sulfate [facility] [address]-05 90 mcg/actuation Inhalation every 4- 6 hrs prn cough, shortness of breath or wheezing Dec 12, 2013 2 puffs Cetirizine HCl [facility] 61089157576 10MG TAKE ONE TABLET BY MOUTH ONCE DAILY Trutest Blood Glucose Meter NDC 0 not defined Procedures Procedure Coding System Code Date MICROALBUMIN, SEMIQUANT CPT-4 32282 May 22, 2016 ELECTROCARDIOGRAM, TRACING CPT-4 58457 May 22, 2016 GLYCATED HEMOGLOBIN TEST CPT-4 18210 May 22, 2016 Office Visit, Est Pt., Level 4 CPT-4 03609 May 22, 2016 Vital Signs Date/Time: May 22, 2016 Cardiac Monitoring Heart Rate 64 bpm Weight 190.6 lbs Height 67.7 in Blood Pressure Diastolic 68 mmHg Blood Pressure Systolic 112 mmHg Results No Known Results Summary Purpose eClinicalWorks Submission
--- OUTSIDE RECORDS SUMMARY | 2018-04-21 21:49 | XMS REPORT ---
Author Author AIDEN MORALES Organization eClinicalWorks Address Unknown Phone Unavailable Care Team Providers Care Distribution Clerk Name Role Phone AIDEN MORALES CP Unavailable Allergies No Known Allergies Problems Problem Type Condition Code Onset Dates Condition Status Problem Dysfunction of Eustachian tube 381.81 Active Problem Generalized anxiety disorder 300.02 Active Problem Urinary tract infection 599.0 Active Problem Hyperlipidemia 272.4 Active Problem Diabetes type 2, uncontrolled E11.65 Active Problem Unspecified sleep disturbance 780.50 Active Problem Bipolar disorder, unspecified 296.80 Active Problem Diabetes mellitus type 2, uncontrolled 250.02 Active Problem Unspecified episodic mood disorder 296.90 Active Medications No Known Medications Results No Known Results Summary Purpose eClinicalWorks Submission
--- OUTSIDE RECORDS SUMMARY | 2018-04-21 21:49 | XMS REPORT ---
Author Author SHAHEEN SOSA [facility] eClinicalWorks Address Unknown Phone Unavailable Care Team Providers Care Automatic Log Cut Off Sawyer Name Role Phone SHAHEEN SOSA Unavailable Allergies No Known Allergies Problems Problem Type Condition Code Onset Dates Condition Status Problem Generalized anxiety disorder 300.02 Active Assessment Follow up V67.9 Active Problem Hyperlipidemia 272.4 Active Problem Diabetes mellitus type 2, uncontrolled 250.02 Active Problem Urinary tract infection 599.0 Active Problem Bipolar disorder, unspecified 296.80 Active Problem Dysfunction of Eustachian tube 381.81 Active Problem Unspecified episodic mood disorder 296.90 Active Problem Unspecified sleep disturbance 780.50 Active Medications Medication Code System Code Instructions Start Date End Date Status Dosage Levemir [facility] [address]-10 100 UNIT/ML Subcutaneous 2 times a day Dec 24, 2014 inject 60U in am and 75U at HS Results No Known Results Summary Purpose eClinicalWorks Submission
--- OUTSIDE RECORDS SUMMARY | 2018-04-21 21:49 | XMS REPORT ---
Author Author SHAHEEN SOSA [facility] eClinicalWorks Address Unknown Phone Unavailable Care Team Providers Care Control Panel Operator Crude Unit Name Role Phone SHAHEEN SOSA CP Unavailable Allergies No Known Allergies Problems Problem Type Condition Code Onset Dates Condition Status Problem Generalized anxiety disorder 300.02 Active Problem Hyperlipidemia 272.4 Active Problem Diabetes mellitus type 2, uncontrolled 250.02 Active Problem Urinary tract infection 599.0 Active Problem Bipolar disorder, unspecified 296.80 Active Problem Dysfunction of Eustachian tube 381.81 Active Problem Unspecified episodic mood disorder 296.90 Active Problem Unspecified sleep disturbance 780.50 Active Medications Medication Code System Code Instructions Start Date End Date Status Dosage Levemir [facility] [address]-28 100 UNIT/ML Subcutaneous 2 times a day Dec 24, 2014 inject 60U in am and 75U at HS Results No Known Results Summary Purpose eClinicalWorks Submission
--- OUTSIDE RECORDS SUMMARY | 2018-04-21 21:51 | XMS REPORT ---
Author Author OSWALDO ALTAMIRANO Organization [facility] Address [address] [place] [address] Care Team Providers Care Solar Installation Helper Name Role Phone ALTAMIRANOOSWALDO Antonio Unavailable PROBLEMS Type Condition ICD9-CM Code [id number] Code Onset Dates Condition Status SNOMED Code Problem Polyneuropathy associated with underlying disease G63 Active 288869769 Problem Lumbago with sciatica, left side M54.42 Active 537400354 Problem Syncope, unspecified syncope type R55 Active 440853735 Problem Abnormal mammogram R92.8 Active 307109144 Problem Type 2 diabetes mellitus with diabetic polyneuropathy E11.42 Active 85452486 Problem Other seasonal allergic rhinitis J30.2 Active 208910703 Problem Lumbago with sciatica, right side M54.41 Active 228496055 Problem senior care 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 Active 702291621 Problem Other chronic pain G89.29 Active 64171106 Problem Generalized anxiety disorder F41.1 Active 96355704 Problem Low serum HDL R74.8 Active 448642905 Problem Episodic mood disorder F39 Active 69840877 Problem Sleep disturbance G47.9 Active 59366588 Problem Dyslipidemia E78.5 Active 003460181 Problem Serum creatinine raised R79.89 Active 625474127 Problem Depression, unspecified depression type F32.9 Active 67730094 ALLERGIES Unknown Allergies SOCIAL HISTORY No smoking Hx information available PLAN OF CARE VITAL SIGNS MEDICATIONS Medication Instructions Dosage Frequency Start Date End Date Duration Status Insulin Syringe-Needle U-100 28G X 1/2" 1 ML subcutaneously Once a day as directed 24h Dec, 90 days Active Pen [place] 31G X 8 MM subcutaneously 2 times a day as directed 12h Dec 90 days Active RESULTS No Results PROCEDURES No Known procedures IMMUNIZATIONS No Known Immunizations
--- OUTSIDE RECORDS SUMMARY | 2018-04-21 21:51 | XMS REPORT ---
Author Author OSWALDO ALTAMIRANO Organization [facility] Address [address] [place] [address] Care Team Providers Care Lacquer Pin Press Operator Name Role Phone ALTAMIRANOOSWALDO Antonio Unavailable PROBLEMS Type Condition ICD9-CM Code EGL83-BF Code Onset Dates Condition Status SNOMED Code Problem Polyneuropathy associated with underlying disease G63 Active 739209738 Problem Lumbago with sciatica, left side M54.42 Active 318115267 Problem Syncope, unspecified syncope type R55 Active 051518336 Problem Abnormal mammogram R92.8 Active 957970210 Problem Type 2 diabetes mellitus with diabetic polyneuropathy E11.42 Active 21102699 Problem Other seasonal allergic rhinitis J30.2 Active 603111663 Problem Lumbago with sciatica, right side M54.41 Active 389636714 Problem senior care 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 Active 713294605 Problem Other chronic pain G89.29 Active 49625865 Problem Generalized anxiety disorder F41.1 Active 29728221 Problem Low serum HDL R74.8 Active 793726716 Problem Episodic mood disorder F39 Active 61078301 Problem Sleep disturbance G47.9 Active 61865111 Problem Dyslipidemia E78.5 Active 291225420 Problem Serum creatinine raised R79.89 Active 332015036 Problem Depression, unspecified depression type F32.9 Active 14710714 ALLERGIES Unknown Allergies SOCIAL HISTORY No smoking Hx information available PLAN OF CARE VITAL SIGNS MEDICATIONS Unknown Medications RESULTS No Results PROCEDURES No Known procedures IMMUNIZATIONS No Known Immunizations
--- OUTSIDE RECORDS SUMMARY | 2018-04-21 21:51 | XMS REPORT ---
Author Author OSWALDO ALTAMIRANO Organization [facility] Address [address] [place] [address] Care Team Providers Care Prenatal Nurse Name Role Phone OSWALDO ALTAMIRANO Unavailable PROBLEMS Type Condition ICD9-CM Code KFD45-CZ Code Onset Dates Condition Status SNOMED Code Problem Other seasonal allergic rhinitis J30.2 Active 225023500 Problem Polyneuropathy associated with underlying disease G63 Active 164648105 Problem Other chronic pain G89.29 Active 16945822 Problem Vitamin D deficiency E55.9 Active 57528956 Problem Recurrent major depressive disorder, in partial remission F33.41 Active 07304480 Problem 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 Active 079854470 Problem Syncope, unspecified syncope type R55 Active 320625452 Problem Stage 2 chronic kidney disease N18.2 Active 576045650 Problem Type 2 diabetes mellitus with diabetic polyneuropathy E11.42 Active 87532721 Problem Episodic mood disorder F39 Active 53085623 Problem Dyslipidemia E78.5 Active 250041960 Problem Serum creatinine raised R79.89 Active 998712655 Problem Lumbago with sciatica, left side M54.42 Active 853938851 Problem Generalized anxiety disorder F41.1 Active 71445923 Problem Lumbago with sciatica, right side M54.41 Active 797776520 ALLERGIES Substance Reaction Event Type Date Status MetFORMIN HCl ER nausea and vomiting Drug Allergy Oct, Active Codeine Phosphate dizziness Drug Allergy Oct, Active dental metal rash Non Drug Allergy Oct, Active ENCOUNTERS Encounter Location Date Diagnosis [facility] [address] [facility] [id number] [address] March, [facility] [address] [facility] [id number], [place] [address] March, Type 2 diabetes mellitus with diabetic polyneuropathy E11.42 ; Polyneuropathy associated with underlying disease G63 ; Stage 2 chronic kidney disease N18.2 ; Episodic mood disorder F39 ; Dyslipidemia E78.5 ; Other seasonal allergic rhinitis J30.2 ; Vitamin D deficiency E55.9 ; Recurrent major depressive disorder, in partial remission F33.41 ; Acute otitis externa of left ear, unspecified type H60.502 and Non-adherence to medical treatment Z91.[address] [id number] [id number] Feb, Dental examination Z01.20 [facility] [address] [address] Feb, Labile hypertension R09.89 ; Syncope, unspecified syncope type R55 ; Chest pain, unspecified type R07.9 and Dyslipidemia E78.5 [place] [address] [address]- 8708 Feb, [place] [address] [address]- 24[address] Jan, [place] [id number] [place] [address] [id number] Jan, Dental examination Z01.20 [place] [address] [address]- 9718 Jan, Acute non-recurrent maxillary sinusitis J01.00 and Dyslipidemia E78.5 [address] [id number] Jan, Dental examination Z01.20 and Dental caries K02.[id number] [place] [address] [id number] Jan, [id number] [place] [address] [id number] Dec, Dental examination Z01.20 [facility] [address] [place] [id number] [place] [address] 11381 -5613 Dec, Seasonal allergic rhinitis, unspecified trigger J30.2 [facility] [address] [address]- [address] Nov, [place] [address] [place] [id number] [place] [address] 42043- 7758 Nov, Type 2 diabetes mellitus with diabetic polyneuropathy E11.42 ; Dyslipidemia E78.5 ; Lumbago with sciatica, right side M54.41 ; Lumbago with sciatica, left side M54.42 ; 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 ; Polyneuropathy associated with underlying disease G63 ; Stage 2 chronic kidney disease N18.2 and Syncope, unspecified syncope type R55 [place] [address] [address]- [address] 14 Oct, 2017 Type 2 diabetes mellitus with diabetic polyneuropathy E11.42 ; Acute otitis externa of left ear, unspecified type H60.502 ; Overweight (BMI 25.0-29.9) E66.3 ; Dyslipidemia E78.5 and Polyneuropathy associated with underlying disease G63 [place] [address] [address]- 1259 Sep, [place] [address] [address]- 3913 Aug, Abnormal mammogram R92.8 [place] [address] 69188- 2133 Aug, Type 2 diabetes mellitus with diabetic polyneuropathy E11.42 [place] [address] [place] [id number] [place] [address] 51809- 3734 Aug, [place] [address] 46139- 2626 Aug, Type 2 diabetes mellitus with diabetic polyneuropathy E11.42 ; Syncope, unspecified syncope type R55 ; Other chronic pain G89.29 and Encounter for immunization Z23 [place] [address] [place] [id number] [place] [address] 03825- 4584 13 Aug, 2017 Type 2 diabetes mellitus with diabetic polyneuropathy E11.42 [place] [address] 91646- 1895 Jul, Type 2 diabetes mellitus with diabetic polyneuropathy E11.42 and Serum creatinine raised R79.89 [facility] [address] [place] [id number] [place] [address] 14854- 3111 Jul, Type 2 diabetes mellitus with diabetic polyneuropathy E11.42 and Serum creatinine raised R79.89 [facility] [address] [place] [id number] [place] [address] 21360- 0867 May, [facility] [address] 45952- 9804 May, [facility] [address] [place] [id number] [place] [address] 95554- 4696 May, Head injury, initial encounter S09.90XA ; Facial pain R51 ; Neck pain M54.2 and Fall, initial encounter W19.XXXA [place] [address] 22643- 6496 May, Type 2 diabetes mellitus with diabetic polyneuropathy E11.42 [place] [address] [place] [id number] [place] [address] 75288- 1411 May, [place] [address] [place] [id number] [place] [address] 84578- 5518 May, Type 2 diabetes mellitus with diabetic polyneuropathy E11.42 [place] [address] [place] [id number] [place] [address] 66491- 3327 May, Dyslipidemia E78.5 ; 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 ; Type 2 diabetes mellitus with diabetic polyneuropathy E11.42 ; Generalized anxiety disorder F41.1 and Other seasonal allergic rhinitis J30.2 [facility] [address] 31377- 5709 Apr, Type 2 diabetes mellitus with diabetic polyneuropathy E11.42 [facility] [address] [place] [id number] [place] [address] 47670- 8414 March, [facility] [address] [place] [id number] [place] [address] 02562- 0888 March, Abnormal mammogram R92.8 [place] [address] [place] [address] 09160- 2670 Feb, Abnormal mammogram R92.8 [place] [address]65100[place], [place] [address] 24[address] Feb, Diabetes type 2, uncontrolled E11.65 [place] [address] [place] [id number] [place] [address] 93619- 4234 Feb, Screening for breast cancer Z12.39 [place] [address] [place] [address] 90886- 8593 Jan, Screening for breast cancer Z12.39 [place] [address] [place] [address] 08042- 2986 Jan, Type 2 diabetes mellitus with diabetic polyneuropathy E11.42 ; 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 ; Other viral agents as the cause of diseases classified elsewhere B97.89 and Acute upper respiratory infection, unspecified J06.9 [place] [address]00565[address], [place] [address] Jan, [place] [address] [place] [address] 41287- 9717 Dec, Diabetes type 2, uncontrolled E11.65 ; Dyslipidemia E78.5 ; Generalized anxiety disorder F41.1 ; Depression, unspecified depression type F32.9 ; 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 and Polyneuropathy associated with underlying disease G63 [place] [address]00565[address], [place] [address] 3[address] Dec, [place] [address] [place] [id number] [place] [address] 65704- 9971 Dec, [place] [address]65[address], [place] [address]- 0485 Dec, [place] [address] [place] [id number] [place] [address] 45091- 9146 02 Dec, 2016 [place] [address] [place] [id number] [place] [address] 85056- 9536 Oct, Well woman exam Z01.419 ; Screening for breast cancer Z12.39 ; 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 ; Type 2 diabetes mellitus without complications E11.9 and Encounter for immunization Z23 [place] [address] 53474- 0017 Sep, [place] [address] 16743- 7267 Sep, Diabetes type 2, uncontrolled E11.65 ; Dyslipidemia E78.5 and Depression, unspecified depression type F32.9 [place] [address] [place] [id number] [place] [address] 44999- 2247 Aug, Diabetes type 2, uncontrolled E11.65 ; Encounter for immunization Z23 ; Nasal congestion R09.81 and Ear pressure, bilateral H93.8X3 [place] [address] [place] [id number] [place] [address] 97312- 9235 Jul, Eustachian tube dysfunction, left H69.82 [place] [address] 60636- 4382 Jun, [place] [address] [place] [id number] [place] [address] 82820- 4154 Jun, Hospital discharge follow-up Z09 ; Syncope, unspecified syncope type R55 and Acute suppurative otitis media of left ear without spontaneous rupture of tympanic membrane, recurrence not specified H66.002 [place] [address] [place] [id number] [place] [address] 02389- 4163 May, [place] [address] 51539- 1051 May, [place] [address] [place] [id number] [place] [address] 60069- 0896 May, [place] [address] [place] [address]- 0354 May, Diabetes type 2, uncontrolled E11.65 ; [...] disturbance G47.9 and Generalized anxiety disorder F41.1 [facility] [address] [place] [id number] [place] [address] 01667- 4100 March, [facility] [address] [place] [id number] [place] [address] [id number] March, Syncope, unspecified syncope type R55 and Depression, unspecified depression type F32.9 [facility] [address] [place] [address] [id number] [place] [address] [id number] March, Orthostatic hypotension I95.1 [facility] [address] [place] [address] [id number] [place] [address] [id number] March, [facility] [address] [place] [address] 40850- 8045 March, [facility] [address] [place] [address] [id number] [place] [address] [id number] Feb, [facility] [address] [place] [address] [id number] [id number] Feb, Dental examination Z01.20 [facility] [address] [place] [id number] [place] [address] [id number] Jan, [facility] [address] [place] [id number] [place] [address] [id number] Jan, [facility] [address] [place] [address] [id number] [place] [address] [id number] Dec, Diabetes type 2, uncontrolled E11.65 [facility] [address] [place] [address] [id number] [place] [address] [id number] Nov, [facility] [address] [id number] [place] [address] [id number] Nov, Encounter for dental examination Z01.20 [facility] [address] [facility] [address] [id number] [id number] Nov, Dental examination Z01.20 [facility] [id number] [address] Sep, Diabetes type 2, uncontrolled E11.65 [facility] [address] [facility] [address] [id number][place] [id number] Sep, Encounter for dental examination Z01.20 and Dental caries, unspecified K02.9 [facility] [id number] [place] [address] [id number] Sep, Bipolar 2 disorder F31.81 [facility] [id number] [place] [address] [id number] Aug, [facility] [id number] [place] [address] [id number] Aug, Follow up V67.9 [facility] [address] [address] Jul, Bipolar disorder, unspecified 296.80 [facility] [id number] [place] [address] [id number] Jul, Thyroid enlarged 240.9 and Bipolar disorder, unspecified 296.80 [facility] [address] [place] [id number][place] [id number] Jun, Diabetes mellitus type 2, uncontrolled 250.02 ; Bipolar disorder, unspecified 296.80 and Rash 782.1 [facility] [address] [place] [id number][place] [id number] Jun, [facility] [id number][place] [id number] May, Urinary tract infection 599.0 [facility] [id number] [place] [address] [id number] May, Urinary tract infection 599.0 [facility] [id number][place] [address] May, [facility] [address] [place] [id number] [address] May, Diabetes mellitus type 2, uncontrolled 250.02 and Pica in adults 307.52 [facility] [address] [place] [address] [id number] [place] [address] [id number] Apr, Follow up V67.9 and Diabetes mellitus type 2, uncontrolled 250.02 [facility] [address] [place] [id number] [place] [address] [id number] Apr, [facility] [address] [place] [id number] [place] [address] 95700- 7426 Apr, [facility] [id number] [place] [address] [id number] Apr, Hyperlipidemia 272.4 [facility] [address] [place] [id number] [place] [address] [id number] March, Diabetes type 2, uncontrolled 250.02 [facility] [address] [place] [id number] [place] [address] [id number] March, Diabetes mellitus type 2, uncontrolled 250.02 [facility] [address] [place] [id number] [place] [address] [id number] March, Diabetes type 2, uncontrolled 250.02 [facility] [id number] [place] [address] [id number] March, [facility] [address] [place] [id number] [place] [address] [id number] March, [facility] [id number] [place] [address] [id number] Feb, [facility] [address] [place] [id number] [place] [address] 76989- 5666 Feb, [facility] [address] [place] [id number] [place] [address] 53570- 2546 Feb, [facility] [address] [place] [id number] [place] [address] [id number] Jan, [facility] [address] [place] [id number] [place] [address] 18603- 3164 Jan, [facility] [address] [place] [id number] [place] [address] 18454- 4533 Jan, [facility] [address] [facility] [id number][place] [id number] Jan, [facility] [place] [facility] [address] [facility] [id number] [place] [address]- 4462 Jan, [facility] [place] [facility] [address] [facility] [id number], [place] [address]- 7367 Jan, [facility] [address] [facility] [id number], [place] [id number] Jan, [facility] [place] [facility] [address] [facility] [id number], [place] [address]- 3395 Jan, [facility] [place] [facility] [address] [place] [id number], [place] [address]- 3460 Dec, [facility] [address] [facility] [id number], [place] [id number] Dec, [facility] [place] [facility] [address]65100[place], [place] [address]- 6606 Dec, [facility] [address] [facility] [id number], [place] [id number] Dec, [facility] [place] [facility] [address]00565100[place], [place] [address]- 8809 Dec, [facility] [address] [facility] [id number], [place] [id number] Dec, [facility] [place] [facility] [address]65100[place], [place] [address]- 6356 Dec, [facility] [place] [facility] [address] [facility] [id number], [place] [address]- 9186 Dec, [facility] [address] [facility] [id number], [place] [id number] Dec, [facility] [address] [facility] [id number], [place] [address]81013980 Dec, [facility] [place] [facility] [address] [place] [id number], [place] [address]- 9326 Dec, [facility] [place] [facility] [address] [facility] [id number], [place] [address]- 5575 Nov, [facility] [place] [facility] [address] [facility] [id number], [place] [address]- 3816 Oct, [facility] [place] [facility] [address] [facility] [id number], [place] [address]- 6300 Oct, [facility] [address] [facility] [id number], [place] [id number] Sep, [facility] [place] [facility] [address] [facility] [id number], [place] [address]- 1771 Sep, [facility] [address] [facility] [id number], [place] [id number] Sep, [facility] [place] [facility] [address], [place] [address]- 9276 Sep, [facility] [address] [facility] [id number], [place] [id number] Aug, [facility] [place] [facility] [address], [place] [address]- 5511 Aug, [facility] [address] [facility] [id number], [place] [id number] Aug, [facility] [place] [facility] [address]100[place], [place] [address]- 3916 Aug, [facility] [place] [facility] [address]100[place], [place] [address]- 9376 Jul, [facility] [place] [facility] [address] [facility] [id number], [place] [address]- 4839 Jul, [facility] [address] [facility] [id number], [place] 013464344 Jul, [facility] [place] [facility] [address] [facility] [id number], [place] [address] 2546 Jul, [facility] [address] [id number], [place] [id number] Jun, [facility] [address] [facility] [id number], [place] [id number] Jun, [facility] [place] [facility] [address] [id number] [place] [address]- 2292 Jun, [facility] [place] [facility] [address] [id number] [place] [address]- 7036 Jun, [facility] [address] [id number] [place] [id number] Jun, [facility] [place] [facility] [address] [id number] [place] [address]- 5506 Jun, [facility] [address] [id number] [place] [id number] May, [facility] [place] [facility] [address] [id number] [place] [address]- 1997 May, [facility] [place] [facility] [address] [id number] [place] [address]- 9081 Apr, [facility] [place] [facility] [address] [id number] [place] [address]- 8441 Apr, [facility] [address] [id number], [place] [id number] Apr, [facility] [place] [facility] [address] [id number] [place] [address]- 8684 Apr, [facility] [place] [facility] [address] [id number] [place] [address]- 5085 Apr, [facility] [address] [id number] [place] [id number] March, [facility] [place] [facility] [address] [id number] [place] [address]- 9866 March, [facility] [place] [facility] [address] [id number] [place] [address]- 7986 March, [facility] [address] [id number] [place] [id number] March, [facility] [place] [facility] [address] [id number] [place] [address]- 2926 March, [facility] [address] [facility] [id number] [place] [id number] March, [facility] [place] [facility] [address] [facility] [id number] [place] [address] 2546 March, [facility] [address] [facility] [id number][place] [id number] Feb, [facility] [place] [facility] [address] [place] [address]- 6106 Feb, [facility] [place] [facility] [address] [facility] [id number][place] [address]- 3416 Jan, [facility] [address] [facility] [id number] [place] [id number] Jan, [facility] [place] [facility] [address]65100[place], [place] [address]- 6196 Jan, [facility] [place] [facility] [address]65[address], [place] [address]- 6626 Jan, [facility] [address] [id number][place] [id number] Jan, [facility] [address] [facility] [id number][place] [id number] Dec, [facility] [place] [facility] [address], [place] [address]- 8936 Dec, [facility] [place] [facility] [address] [id number], [place] [address]- 8766 Dec, [facility] [address] [facility] [id number], [place] [id number] Dec, [facility] [place] [facility] [address] [facility] [id number], [place] [address]- 1396 Dec, [facility] [address] [facility] [id number][place] [id number] Dec, [facility] [place] [facility] [address] [facility] [id number], [place] [address]- 9056 Dec, [facility] [place] [facility] [address]65100[place], [place] [address]- 7082 Dec, [facility] [address] [id number] [place] [id number] Dec, [facility] [address] [id number] [place] [id number] Nov, [facility] [place] [facility] [address] [facility] [id number], [place] [address]- 9496 Nov, [facility] [place] [facility] [address] [facility] [id number] [place] [address]- 2546 Nov, [facility] [address] [id number] [place] [id number] Nov, [facility] [address] [id number] [place] [id number] Oct, [facility] [place] [facility] [address] [address] Oct, [facility] [address] [facility] [id number] [place] [id number] Oct, [facility] [place] [facility] [address] [facility] [id number][place] [address] Oct, [facility] [place] [facility] [id number] [address] Oct, [facility] [place] [facility] [address] [address] Oct, [facility] [address] [facility] [id number][place] [id number] Oct, [facility] [place] [facility] [address] [facility] [id number], [place] [address] Oct, [facility] [place] [facility] [address] [facility] [id number], [place] [address] Sep, [facility] [place] [facility] [address] [facility] [id number], [place] [address] Sep, [facility] [address] [facility] [id number] [place] [id number] Sep, [facility] [place] [facility] [id number], [place] [address] Sep, [facility] [address] [facility] [id number], [place] [address] Sep, [facility] [address] [facility] [id number][place] [id number] Sep, [facility] [address] [facility] [id number] [place] [id number] Aug, [facility] [place] [facility] [address] [facility] [id number], [place] [address] Aug, [facility] [address] [facility] [id number], [place] [address] Aug, [facility] [address] [facility] [id number][place] [id number] Aug, [facility] [address] [id number] [id number] Aug, [facility] [place] [facility] [address]65[address], [place] [address] Aug, [facility] [place] [facility] [address] [id number], [place] [address] Aug, [facility] [place] [facility] [address]65[address], [place] [address] Aug, [facility] [address] [id number][place] [id number] Jul, [facility] [place] [facility] [id number], [place] [address] Jul, [facility] [place] [facility] [address] [facility] [id number] [address] Jul, [facility] [place] [address] [facility] [id number][place] [id number] Jul, [facility] [place] [address] [facility] [id number][place] [id number] Jul, [facility] [place] [facility] [address] [facility] [id number], [place] [address] May, [facility] [place] [facility] [address] [facility] [id number], [place] [address] Apr, [facility] [place] [address] [id number] [place] [id number] Apr, [facility] [place] [address] [id number] [place] [id number] Apr, [facility] [place] [facility] [address] [facility] [id number], [place] [address] March, [facility] [place] [address] [id number] [place] [id number] March, [facility] [place] [address] [id number] [place] [id number] March, [facility] [place] [address] [id number] [place] [id number] March, [facility] [place] [address] [id number] [place] [id number] March, [facility] [place] [address] [id number] [place] [id number] March, [facility] [place] [facility] [address] [facility] [id number], [place] [address] March, [facility] [place] [facility] [address] [facility] [id number], [place] [address] March, [facility] [place] [facility] [address] [facility] [id number], [place] [address] Feb, [facility] [place] [address] [id number] [place] [id number] Feb, [facility] [place] [address] [id number] [place] [id number] Feb, [facility] [place] [address] [id number] [place] [id number] Feb, [facility] [place] [facility] [address] [facility] [id number], [place] [address] Feb, [facility] [place] [address] [id number] [place] [id number] Feb, [facility] [place] [address] [id number] [place] [id number] 14 Jan, 2013 [facility] [place] [address] [id number] [place] [id number] Jan, [facility] [place] [address] [id number] [place] [id number] Dec, [facility] [place] [address] [id number] [place] [id number] Dec, [facility] [address]00565[address], [place] [address] Dec, [facility] [place] [address] [id number] [place] [id number] Dec, [facility] [place] [address] [id number] [place] [id number] Dec, [facility] [place] [address] [id number] [place] [id number] Dec, [facility] [place] [address] [id number] [place] [id number] Dec, [facility] [address], [place] [address] Nov, [facility] [place] [address] [id number] [place] [id number] Nov, [facility] [place] [address] [id number] [place] [id number] Nov, [facility] [place] [address] [id number] [place] [id number] Nov, [facility] [place] [address] [id number] [place] [id number] Nov, [facility] [address] [facility] [id number], [place] [address] Oct, [facility] [place] [address] [id number] [place] [id number] Oct, [facility] [place] [address] [id number] [place] [id number] Oct, [facility] [place] [address] [id number] [place] [id number] Oct, [facility] [place] [facility] [address] [id number], [place] [address] Oct, [facility] [place] [facility] [address] [facility] [id number], [place] [address] Oct, [facility] [place] [facility] [address] [facility] [id number], [place] [address] Oct, [facility] [place] [address] [facility] [id number][place] [id number] Sep, [facility] [place] [facility] [address] [facility] [id number], [place] [address] Sep, [facility] [place] [facility] [address] [facility] [id number] [place] [address] Sep, [facility] [place] [address] [id number], [place] [id number] Sep, [facility] [place] [address] [place] [id number] Sep, [facility] [place] [id number] [place] [id number] Sep, [facility] [place] [facility] [address] [facility] [id number], [place] [address] Sep, [facility] [place] [facility] [address]65100[place], [place] [address] Sep, [facility] [place] [facility] [address] [facility] [id number], [place] [address] Sep, [facility] [place] [address] [facility] [id number], [place] [id number] Aug, [facility] [place] [facility] [address] [facility] [id number], [place] [address] Aug, [facility] [place] [address] [facility] [id number], [place] [id number] Aug, [facility] [place] [facility] [address] [facility] [id number], [place] [address] Aug, [facility] [place] [facility] [address] [facility] [id number], [place] [address] Aug, [facility] [place] [address] [id number] [place] [id number] Aug, [facility] [place] [address] [id number] [place] [id number] Aug, [facility] [address] [id number] [place] [address] Aug, [facility] [place] [address] [id number] [place] [id number] Aug, [facility] [place] [address] [id number] [place] [id number] Jul, [facility] [place] [address] [id number] [place] [id number] Jun, [facility] [place] [address] [id number] [place] [id number] May, [facility] [place] [address] [id number] [place] 677483219 May, [facility] [place] [address] [id number] [place] 778661280 May, [facility] [place] [address] [id number] [place] [id number] May, [facility] [place] [address] [id number] [place] 816163672 May, [facility] [place] [address] [id number] [place] [id number] May, [facility] [place] [address] [id number] [place] [id number] May, [facility] [place] [address] [id number] [place] [id number] Apr, [facility] [place] [address] [id number] [place] [id number] Apr, [facility] [place] [address] [id number] [place] [id number] Apr, [facility] [place] [address] [id number] [place] [id number] Apr, [facility] [place] [address] [id number] [place] [id number] Apr, [facility] [place] [address] [id number] [place] [id number] Apr, [facility] [place] [address] [id number] [place] 712622185 March, [facility] [place] [address] [id number] [place] [id number] March, [facility] [place] [address] [id number] [place] [id number] Feb, [facility] [place] [address] [id number] [place] [id number] Feb, [facility] [place] [address] [id number] [place] 935397743 Feb, [facility] [place] [address] [id number] [place] 193840739 Jan, [facility] [place] [address] [id number] [place] [id number] Jan, [facility] [place] [address] [id number] [place] [id number] Jan, [facility] [place] [address] [id number] [place] [id number] Jan, [facility] [place] [address] [id number] [place] [id number] Dec, [facility] [address]65[address], [place] [address] Dec, [facility] [place] [address] [id number] [place] [id number] Dec, [facility] [place] [address] [id number] [place] [id number] Nov, [facility] [place] [address] [id number] [place] [id number] Nov, [facility] [place] [address] [id number] [place] [id number] Nov, [facility] [address] [address]77[address] Oct, [facility] [id number] [place] [address]205240- [address] Oct, [facility] [address] [id number] [place] [address]- [address] Oct, [facility] [place] [facility] [address] [id number] [place] [address] Aug, [facility] [place] [facility] [address] [id number] [place] [address]- [address] Aug, [facility] [place] [facility] [address] [id number] [place] [address]- 7[address] Aug, [facility] [place] [facility] [address] [id number] [place] [address] March, [facility] [place] [facility] [address] [id number] [place] [address]- [address] Oct, [facility] [place] [facility] [address] [id number] [place]- [address] Oct, [facility] [place] [facility] [address] [id number] [place] [address]- [address] Sep, [facility] [place] [facility] [address] [id number] [place] [address]- 8[address] Sep, [facility] [place] [facility] [address] [id number] [place] [address]- 8703 Sep, [facility] [place] [facility] [address] [id number] [place] [address]- [address] Aug, [facility] [place] [facility] [address] [id number], [place] [address]- [address] Aug, [facility] [place] [facility] [address] [id number] [place] [address]- 6697 Jun, [facility] [place] [facility] [address] [id number] [place] [address]- [address] May, [facility] [place] [facility] [address] [id number] [place] [address]- [address] Jan, [facility] [place] [facility] [address] [id number], [place] [address]- [address] Nov, [facility] [address]65[address], [place] [address] Oct, [facility] [address]65[address] Sep, [facility] [address]65100[place], [place] [address]- [address] Sep, [facility] [address] [place] [address]- [address] Sep, [facility] [id number] [place] [address]- [address]17 Sep, [facility] [id number] [place] [address]- 0482 Sep, [facility] [id number] [place] [address]- [address] Aug, [facility] [address]65[address], [place] [address] Aug, [facility] [address]65100[place], [place] [address]- [address] Jul, [facility] [address]65100[place], [place] [address]- [address] Jun, IMMUNIZATIONS No Known Immunizations SOCIAL HISTORY Never Assessed REASON FOR VISIT Diabetes fu -- surinder mejía, needing refill on PLAN OF CARE Activity Details Follow Up 6 Weeks- left ear, needs A1C Reason: VITAL SIGNS Height 67.7 in 2017-10-21 Weight 195.0 lbs 2017-10-21 Temperature 97.8 degrees Fahrenheit 2017-10-21 Heart Rate 70 bpm 2017-10-21 Respiratory Rate 18 2017-10-21 BMI 29.91 kg/m2 2017-10-21 Blood pressure systolic 128 mmHg 2017-10-21 Blood pressure diastolic 70 mmHg 2017-10-21 MEDICATIONS Medication Instructions Dosage Frequency Start Date End Date Duration Status Ciprodex 0.3-0.1 % Otic Twice a day 4 drops into affected ear 12h 14 Oct, 2017 10 days Active Atorvastatin Calcium 40 mg Orally Once a day 1 tablet 24h Active Pen Orrum 31G X 8 MM subcutaneously 2 times a day as directed 12h Dec 90 days Active Levemir 100 UNIT/ML Subcutaneous 2 times a day inject 50U in am and 50U at HS 12h 16 Dec, 2014 Active Multivitamin Adult - Active Januvia 100MG Orally Once a day TAKE ONE TABLET BY MOUTH ONCE DAILY 24h 90 days Active Albuterol Sulfate 90 mcg/actuation Inhalation every 4- 6 hrs prn cough, shortness of breath or wheezing 2 puffs Dec, Active Lisinopril 5 mg Orally Once a day 1 tablet 24h May, 90 days Active Cetirizine HCl 10MG Orally Once a day TAKE ONE TABLET BY MOUTH ONCE DAILY 24h May, 90 days Active Insulin Syringe-Needle U-100 28G X 1/2 subcutaneously Once a day as directed 24h Dec, Active Levemir 100UNIT Subcutaneous 2 times a day inject 65U in am and 75U at HS 12h 28 Not-Taking True Metrix Blood Glucose Test - In Vitro 2 times a day test blood sugar 12h Aug, 50 days Active Pen Orrum 31G/8MM subcutaneously 2 times a day as directed 12h 25 Active Fluticasone Propionate 50 MCG/ACT Nasally Once a day as needed 1 spray in each nostril 12 months Active Invokana 100 mg Orally Once a day 1 tablet 24h May, Nov, Active Lancets - test blood sugar 12h Aug, 50 days Active Aspirin 81 MG Orally every 2 days 1 tablet Active Insulin Syringe-Needle U-100 1ML/31G subcutaneously Once a day as directed 24h 100 Active Gabapentin 400MG Orally at bedtime 1 tablet Active Humalog 100 UNIT/ML Subcutaneous 3 times a day 20 units just before meals 8h Aug, Active Cymbalta 60 mg Orally Once a day 1 capsule 24h 30 Jul, 2015 Active True Metrix Meter w/Device Test blood sugar 12h Aug, 12 months Active Victoza 18MG/3ML Subcutaneous Once a day 1.8mg 24h Active Insulin Syringe-Needle U-100 1ML/31G subcutaneously Once a day as directed 24h Active Vitamin B-12 100 MCG Orally Once a day 1 tablet 24h Active RESULTS Name Result Date Reference Range Ultrasound : Kidneys 2017-10-27 PROCEDURES No Known procedures INSTRUCTIONS MEDICATIONS ADMINISTERED [...] 08/2016 Hospitalization History chest pain ED visit [facility], pt scheduled for heart cath on May Hospitalization History Ana QUEEN 2012 Hospitalization History Chest pain-[facility] 12/22/16
--- OUTSIDE RECORDS SUMMARY | 2018-04-21 21:51 | XMS REPORT ---
Author Author SHAHEEN SOSA [facility] [employer] Address Unknown Phone Unavailable Care Team Providers Care Volleyball Referee Name Role Phone SHAHEEN SOSA CP Unavailable [...] Start Date End Date Status Dosage Victoza [facility] [id number] 18MG/3ML Subcutaneous Once a day 1.8mg Results No Known Results Summary Purpose eClinicalWorks Submission
--- OUTSIDE RECORDS SUMMARY | 2018-04-21 21:51 | XMS REPORT ---
Author Author MAURICE JUDI Organization [facility] Address [address] [place] [address] Care Team Providers Care Deck And Hull Assembler Name Role Phone FLORIN RICHARDSHANY Unavailable PROBLEMS Type Condition ICD9-CM Code [id number] Code Onset Dates Condition Status SNOMED Code Problem Polyneuropathy associated with underlying disease G63 Active 764719373 Problem Lumbago with sciatica, left side M54.42 Active 634892588 Problem Syncope, unspecified syncope type R55 Active 767440308 Problem Abnormal mammogram R92.8 Active 947195234 Problem Type 2 diabetes mellitus with diabetic polyneuropathy E11.42 Active 70623208 Problem Other seasonal allergic rhinitis J30.2 Active 184657204 Problem Lumbago with sciatica, right side M54.41 Active 885726350 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 Active 965179839 Problem Other chronic pain G89.29 Active 60004091 Problem Generalized anxiety disorder F41.1 Active 16191705 Problem Low serum HDL R74.8 Active 993892870 Problem Episodic mood disorder F39 Active 60783016 Problem Sleep disturbance G47.9 Active 15933119 Problem Dyslipidemia E78.5 Active 138431407 Problem Serum creatinine raised R79.89 Active 650545159 Problem Depression, unspecified depression type F32.9 Active 43263247 ALLERGIES No Information SOCIAL HISTORY Never Assessed PLAN OF CARE VITAL SIGNS MEDICATIONS Medication Instructions Dosage Frequency Start Date End Date Duration Status Albuterol Sulfate 90 mcg/actuation Inhalation every 4- 6 hrs prn cough, shortness of breath or wheezing 2 puffs Dec, Active Multivitamin Adult - Active Trutest Blood Glucose Test Strip Active Trutest Blood Glucose Meter Active Levemir 100 UNIT/ML Subcutaneous 2 times a day inject 65U in am and 75U at HS 12h Dec, Active Pen [place] 31G X 8 MM subcutaneously 2 times a day as directed 12h Dec 90 days Active Insulin Syringe-Needle U-100 28G X 1/2 subcutaneously Once a day as directed 24h Dec, 90 days Active Cymbalta 60 mg Orally Once a day 1 capsule 24h 30 Jul, 2015 Active Atorvastatin Calcium 40 MG Orally Once a day 1 tablet 24h Active Victoza 18MG/3ML Subcutaneous Once a day 1.8mg 24h 30 Active Fluticasone Propionate 50 MCG/ACT Nasally Once a day as needed 1 spray in each nostril Active Cetirizine HCl 10MG TAKE ONE TABLET BY MOUTH ONCE DAILY 30 Active Vitamin B-12 100 MCG Orally Once a day 1 tablet 24h Active Aspirin 81 MG Orally every 2 days 1 tablet Active Levemir 100UNIT Subcutaneous at bedtime 75 units Active RESULTS No Results PROCEDURES No Known [...] 08/2016 Hospitalization History chest pain ED visit [facility], pt scheduled for heart cath on May Hospitalization History Ana 2012 Hospitalization History Chest pain-[facility] 12/22/16
--- OUTSIDE RECORDS SUMMARY | 2018-04-21 21:51 | XMS REPORT ---
Author Author DARIO VALLE Organization [facility] Address [address] [place] [address] Care Team Providers Care Court Deputy Name Role Phone DARIO VALLE Unavailable PROBLEMS Type Condition ICD9-CM Code SLE75-DA Code Onset Dates Condition Status SNOMED Code Problem Depression, unspecified depression type F32.9 Active 96892256 Problem Lumbago with sciatica, left side M54.42 Active 290023037 Problem Other chronic pain G89.29 Active 72342184 Problem Type 2 diabetes mellitus without complications E11.9 Active 87701653 Problem [facility] 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 Active 346243021 Problem Other seasonal allergic rhinitis J30.2 Active 463295951 Problem Lumbago with sciatica, right side M54.41 Active 367403480 Problem Syncope, unspecified syncope type R55 Active 479247200 Problem Polyneuropathy associated with underlying disease G63 Active 655198611 Problem Sleep disturbance G47.9 Active 13937497 Problem Episodic mood disorder F39 Active 19103268 Problem Dyslipidemia E78.5 Active 373009579 Problem Generalized anxiety disorder F41.1 Active 15647900 Problem Diabetes type 2, uncontrolled E11.65 Active 190249654 ALLERGIES No Known Allergies SOCIAL HISTORY No smoking Hx information available PLAN OF CARE VITAL SIGNS MEDICATIONS Medication Instructions Dosage Frequency Start Date End Date Duration Status Fluticasone Propionate 50 MCG/ACT Nasally Once a day 1 spray in each nostril 24h Oct, Active RESULTS No Results PROCEDURES No Known procedures IMMUNIZATIONS No Known Immunizations
--- OUTSIDE RECORDS SUMMARY | 2018-04-21 21:51 | XMS REPORT ---
Author Author OSWALDO ALTAMIRANO Organization [employer] Address Unknown Phone Unavailable Care Team Providers Care Vp Emerging Media Name Role Phone OSWALDO ALTAMIRANO CP Unavailable Allergies, Adverse Reactions, Alerts Substance Reaction Event Type Codeine Phosphate dizziness Drug Allergy dental metal rash Non Drug Allergy Problems Problem Type Condition Code Onset Dates Condition Status Problem Episodic mood disorder F39 Active Problem Diabetes type 2, uncontrolled E11.65 Active Problem Dyslipidemia E78.5 Active Problem Polyneuropathy associated with underlying disease G63 Active Problem Other seasonal allergic rhinitis J30.2 Active Problem Syncope, unspecified syncope type R55 Active Problem Other chronic pain G89.29 Active Problem Depression, unspecified depression type F32.9 Active Problem Lumbago with sciatica, right side M54.41 Active Problem Lumbago with sciatica, left side M54.42 Active Assessment Syncope, unspecified syncope type R55 Active Assessment Hospital discharge follow-up Z09 Active Problem Generalized anxiety disorder F41.1 Active Assessment Acute suppurative otitis media of left ear without spontaneous rupture of tympanic membrane, recurrence not specified H66.002 Active Problem Sleep disturbance G47.9 Active Medications Medication Code System Code Instructions Start Date End Date Status Dosage Trutest Blood Glucose Test Strip ND 0 not defined Albuterol Sulfate [facility] [address]-17 90 mcg/actuation Inhalation every 4- 6 hrs prn cough, shortness of breath or wheezing Dec 12, 2013 2 puffs Gabapentin [facility] 19992121939 400MG Orally at bedtime 1 tablet Levemir [facility] [address]-32 100 UNIT/ML Subcutaneous 2 times a day Dec 24, 2014 inject 60U in am and 75U at HS Vitamin B-12 [facility] [address]-63 100 MCG Orally Once a day 1 tablet Cymbalta [facility] [address]-44 60 mg Orally Once a day Aug 07, 2015 1 capsule Victoza [facility] 82318425447 18MG/3ML Subcutaneous Once a day 1.8mg Metformin HCl [facility] [address]-13 1000MG Orally 2 times a day 1 tablet Amoxicillin [facility] [address]-87 500 MG Orally every 12 hrs Jun 25, 2016 Jul 05, 2016 1 capsule Cetirizine HCl [facility] 04052558068 10MG TAKE ONE TABLET BY MOUTH ONCE DAILY Trutest Blood Glucose Meter ND 0 not defined Polysaccharide Iron Complex [facility] [address]-61 150 MG Orally 2 times a day May 23, 2015 1 capsule Lipitor [facility] [address]-29 10 MG Orally Once a day January 08, 2016 1 tablet Procedures Procedure Coding System Code Date Office Visit, Est Pt., Level 3 CPT-4 99890 Jun 25, 2016 Vital Signs Date/Time: Jun 25, 2016 Cardiac Monitoring Heart Rate 72 bpm Weight 192.4 lbs Height 67.7 in BMI 29.51 Index Blood Pressure Diastolic 76 mmHg Blood Pressure Systolic 116 mmHg Results No Known Results Summary Purpose eClinicalWorks Submission
--- OUTSIDE RECORDS SUMMARY | 2018-04-21 21:51 | XMS REPORT ---
Author Author ALTAMIRANOOSWALDO Organization [facility] Address [address] [place] [address] Care Team Providers Care Cell Pourer Name Role Phone ALTAMIRANOOSWALDO Antonio Unavailable PROBLEMS Type Condition ICD9-CM Code [id number] Code Onset Dates Condition Status SNOMED Code Problem Polyneuropathy associated with underlying disease G63 Active 551020624 Problem Lumbago with sciatica, left side M54.42 Active 613053250 Problem Syncope, unspecified syncope type R55 Active 335145813 Problem Abnormal mammogram R92.8 Active 549598926 Problem Type 2 diabetes mellitus with diabetic polyneuropathy E11.42 Active 44727138 Problem Other seasonal allergic rhinitis J30.2 Active 484745526 Problem Lumbago with sciatica, right side M54.41 Active 712069364 Problem half-way 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 Active 140900520 Problem Other chronic pain G89.29 Active 24848780 Problem Generalized anxiety disorder F41.1 Active 69001631 Problem Low serum HDL R74.8 Active 650697438 Problem Episodic mood disorder F39 Active 91580668 Problem Sleep disturbance G47.9 Active 73951029 Problem Dyslipidemia E78.5 Active 832872049 Problem Serum creatinine raised R79.89 Active 302089404 Problem Depression, unspecified depression type F32.9 Active 91665443 ALLERGIES No Information SOCIAL HISTORY Never Assessed PLAN OF CARE VITAL SIGNS MEDICATIONS Medication Instructions Dosage Frequency Start Date End Date Duration Status Insulin Syringe-Needle U-100 28G X 1/2 subcutaneously [...] Hospitalization History Ana 2012 Hospitalization History Chest pain-[facility] 12/22/16
--- OUTSIDE RECORDS SUMMARY | 2018-04-21 21:52 | XMS REPORT ---
Author Author SHAHEEN SOSA [employer] Address Unknown Phone Unavailable Care Team Providers Care Cloth Shrinking Supervisor Name Role Phone SHAHEEN SOSA Unavailable Allergies, Adverse Reactions, Alerts Substance Reaction Event Type Codeine Phosphate dizziness Drug Allergy dental metal rash Non Drug Allergy Problems Problem Type Condition Code Onset Dates Condition Status Assessment Diabetes type 2, uncontrolled E11.65 Active Problem Dysfunction of Eustachian tube 381.81 [...] Instructions Start Date End Date Status Dosage Polysaccharide Iron Complex [facility] [address]-70 150 MG Orally 2 times a day May 23, 2015 1 capsule Victoza [facility] 39859390955 18MG/3ML Subcutaneous Once a day 1.8mg Abilify [facility] [address]-49 10 MG Orally Once a day Aug 07, 2015 1 tablet metformin [facility] [address]-42 1,000 mg January 17, 2015 Take 1 tablet by Oral route 2 times per day Albuterol Sulfate [facility] [address]-39 90 mcg/actuation Inhalation every 4- 6 hrs prn cough, shortness of breath or wheezing Dec 12, 2013 2 puffs Cymbalta [facility] [address]-07 60 MG Orally Once a day Aug 07, 2015 1 capsule Gabapentin [facility] [address]-18 400 mg Dec 18, 2014 take 1 capsule by Oral route 1 time per day at bedtime Montelukast Sodium [facility] 15415216741 10MG TAKE ONE TABLET BY MOUTH ONCE DAILY IN THE EVENING Cetirizine HCl [facility] 54248909428 10MG TAKE ONE TABLET BY MOUTH ONCE DAILY Embrace Blood Glucose Test ND 0 not defined Atorvastatin Calcium [facility] [address]-02 not defined Cymbalta [facility] [address]-61 60 MG Sep 17, 2014 take 1 capsule (60 mg) by oral route once daily Nexium [facility] [address]-02 20 MG Orally Once a day 1 capsule Vitamin B-12 [facility] [address]-71 100 MCG Orally Once a day 1 tablet Triamcinolone Acetonide [facility] [address]-49 0.5 % Externally Twice a day Jul 01, 2015 1 application to affected area Levemir [facility] [address]-09 100 UNIT/ML Subcutaneous 2 times a day Dec 24, 2014 inject 60U in am and 75U at HS Singulair [facility] [address]-90 10 MG Orally Once a day 1 tablet in the evening Procedures Procedure Coding System Code Date GLYCATED HEMOGLOBIN TEST CPT-4 00077 Oct 02, 2015 Office Visit, Est Pt., Level 3 CPT-4 59288 Oct 02, 2015 Vital Signs Date/Time: Oct 02, 2015 Temperature 98.1 F Weight 190.4 lbs Height 67.7 in BMI 29.20 Index Blood Pressure Diastolic 76 mmHg Blood Pressure Systolic 110 mmHg Cardiac Monitoring Heart Rate 66 bpm Results Name Result Date Reference Range Unit Abnormality Flag A1C (IN HOUSE) ----A1C IN HOUSE 8.2 20151002 4.30 - 5.6 % ----Previous A1c 9.1 20151002 ----Lot # [id number] ----Exp date 20151002 Summary Purpose [employer] Submission
--- OUTSIDE RECORDS SUMMARY | 2018-04-21 21:52 | XMS REPORT ---
Author Author OSWALDO ALTAMIRANO Organization [employer] Address Unknown Phone Unavailable Care Team Providers Care Bullet Lubricating Machine Operator Name Role Phone OSWALDO ALTAMIRANO CP Unavailable Allergies No Known Allergies Problems Problem Type Condition Code Onset Dates Condition Status Problem Episodic mood disorder F39 Active Problem Diabetes type 2, uncontrolled E11.65 Active Problem Dyslipidemia E78.5 Active Problem Generalized anxiety disorder F41.1 Active Problem Sleep disturbance G47.9 Active Problem Polyneuropathy associated with underlying disease G63 Active Problem Other seasonal allergic rhinitis J30.2 Active Problem Syncope, unspecified syncope type R55 Active Problem Other chronic pain G89.29 Active Problem Depression, unspecified depression type F32.9 Active Problem Lumbago with sciatica, right side M54.41 Active Problem Lumbago with sciatica, left side M54.42 Active Medications No Known Medications Results No Known Results Summary Purpose [employer] Submission
--- OUTSIDE RECORDS SUMMARY | 2018-04-21 21:53 | XMS REPORT ---
Author Author OSWALDO ALTAMIRANO Organization [facility] Address [address] [place] [address] Care Team Providers Care Retail Agent Name Role Phone OSWALDO ALTAMIRANO Unavailable PROBLEMS Type Condition ICD9-CM Code DHM84-LF Code Onset Dates Condition Status SNOMED Code Problem Syncope, unspecified syncope type R55 Active 522947352 Problem Lumbago with sciatica, right side M54.41 Active 256320250 Problem Lumbago with sciatica, left side M54.42 Active 161531682 Problem Stage 2 chronic kidney disease N18.2 Active 160381300 Problem Abnormal mammogram R92.8 Active 488224164 Problem Other chronic pain G89.29 Active 89211150 Problem Other seasonal allergic rhinitis J30.2 Active 704735982 Problem Type 2 diabetes mellitus with diabetic polyneuropathy E11.42 Active 76540714 Problem [facility] 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 Active 622422878 Problem Generalized anxiety disorder F41.1 Active 60736275 Problem Sleep disturbance G47.9 Active 86272193 Problem Episodic mood disorder F39 Active 86533983 Problem Dyslipidemia E78.5 Active 503405193 Problem Low serum HDL R74.8 Active 198405696 Problem Depression, unspecified depression type F32.9 Active 90713447 Problem Serum creatinine raised R79.89 Active 202568018 Problem Polyneuropathy associated with underlying disease G63 Active 985974468 ALLERGIES No Information ENCOUNTERS Encounter Location Date Diagnosis [facility] [address] [facility] [place] [place] [id number] [address] March, [facility] [address] [id number] [id number] Feb, Dental examination Z01.20 [facility] [address] [facility] [place] [id number], [place] [address] Feb, Labile hypertension R09.89 ; Syncope, unspecified syncope type R55 ; Chest pain, unspecified type R07.9 and Dyslipidemia E78.5 [facility] [id number] [place] [address] 48204- 9471 Feb, [facility] [id number] [place] [address] 79835- 3663 Jan, [facility] [place] [address] [id number] [id number] Jan, Dental examination Z01.20 [facility] [id number] [place] [address] 07107- 4187 Jan, Acute non-recurrent maxillary sinusitis J01.00 and Dyslipidemia E78.5 [facility] [address] [place] [id number] [place] [id number] Jan, Dental examination Z01.20 and Dental caries K02.9 [facility] [address] [place] [address] [place] [id number] [place] [id number] Jan, [facility] [place] [address] [facility] [id number] [place] [address] [id number] Dec, Dental examination Z01.20 [facility] [id number] [place] [address]58 -6329 Dec, Seasonal allergic rhinitis, unspecified trigger J30.2 [place] [id number] [place] [address] 93764- 5670 Nov, [place] [id number] [place] [address] 48277- 1279 Nov, Type 2 diabetes mellitus with diabetic polyneuropathy E11.42 ; Dyslipidemia E78.5 ; Lumbago with sciatica, right side M54.41 ; Lumbago with sciatica, left side M54.42 ; 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 ; Polyneuropathy associated with underlying disease G63 ; Stage 2 chronic kidney disease N18.2 and Syncope, unspecified syncope type R55 [place] [id number] [place] [address] 78729- 3376 Oct, Type 2 diabetes mellitus with diabetic polyneuropathy E11.42 ; Acute otitis externa of left ear, unspecified type H60.502 ; Overweight (BMI 25.0-29.9) E66.3 ; Dyslipidemia E78.5 and Polyneuropathy associated with underlying disease G63 [place] [address] [address]- 4893 Sep, [place] [address] [address]452- 3311 Aug, Abnormal mammogram R92.8 [place] [address] 25547- 8977 Aug, Type 2 diabetes mellitus with diabetic polyneuropathy E11.42 [place] [address] 70360- 2500 Aug, [place] [address] 54677- 6346 Aug, Type 2 diabetes mellitus with diabetic polyneuropathy E11.42 ; Syncope, unspecified syncope type R55 ; Other chronic pain G89.29 and Encounter for immunization Z23 [place] [address] 92256- 1657 Aug, Type 2 diabetes mellitus with diabetic polyneuropathy E11.42 [place] [address] 28137- 8903 Jul, Type 2 diabetes mellitus with diabetic polyneuropathy E11.42 and Serum creatinine raised R79.89 [place] [address] 02487- 2973 Jul, Type 2 diabetes mellitus with diabetic polyneuropathy E11.42 and Serum creatinine raised R79.89 [place] [address] 31883- 8758 May, [place] [address] 55535- 3222 May, [place] [address]005[address], [place] [address] May, Head injury, initial encounter S09.90XA ; Facial pain R51 ; Neck pain M54.2 and Fall, initial encounter W19.XXXA [place] [address], [place] [address] 2[address] May, Type 2 diabetes mellitus with diabetic polyneuropathy E11.42 [place] [id number] [place] [address] 86290- 7467 May, [place] [id number] [place] [address] 86503- 9262 May, Type 2 diabetes mellitus with diabetic polyneuropathy E11.42 [place] [address] [id number], [place] [address]- 5858 May, Dyslipidemia E78.5 ; 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 ; Type 2 diabetes mellitus with diabetic polyneuropathy E11.42 ; Generalized anxiety disorder F41.1 and Other seasonal allergic rhinitis J30.2 [place] [address], [place] [address] 6163 Apr, Type 2 diabetes mellitus with diabetic polyneuropathy E11.42 [place] [address], [place] [address] 268[address] March, [place] [address], [place] [address] 7[address] March, Abnormal mammogram R92.8 [place] [address], [place] [address] 78[address] Feb, Abnormal mammogram R92.8 [place] [address] [id number], [place] [address] 9511 Feb, Diabetes type 2, uncontrolled E11.65 [place] [address], [place] [address] 0[address] Feb, Screening for breast cancer Z12.39 [place] [address], [place] [address] 27 Jan, 2017 Screening for breast cancer Z12.39 [place] [id number] [place] [address] 27512- 8930 Jan, Type 2 diabetes mellitus with diabetic polyneuropathy E11.42 ; 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 ; Other viral agents as the cause of diseases classified elsewhere B97.89 and Acute upper respiratory infection, unspecified J06.9 [place] [id number] [place] [address] 70493- 9630 Jan, [place] [id number] [place] [address] 35465- 8271 Dec, Diabetes type 2, uncontrolled E11.65 ; Dyslipidemia E78.5 ; Generalized anxiety disorder F41.1 ; Depression, unspecified depression type F32.9 ; [facility] 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 and Polyneuropathy associated with underlying disease G63 [address] [place] [address] 19515- 3741 16 Dec, 2016 [place] [id number] [place] [address] 82130- 9884 Dec, [place] [id number] [place] [address] 55537- 2348 Dec, [address] [place] [address] 26716- 7558 Dec, [place] [id number] [place] [address] 95853- 5151 Oct, Well woman exam Z01.419 ; Screening for breast cancer Z12.39 ; 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 ; Type 2 diabetes mellitus without complications E11.9 and Encounter for immunization Z23 [address], [place] [address]- 6[address] Sep, [place] [id number] [place] [address] 96247- 7129 Sep, Diabetes type 2, uncontrolled E11.65 ; Dyslipidemia E78.5 and Depression, unspecified depression type F32.[address] 30256- 6776 Aug, Diabetes type 2, uncontrolled E11.65 ; Encounter for immunization Z23 ; Nasal congestion R09.81 and Ear pressure, bilateral H93.8X3 [address] 75903- 7308 Jul, Eustachian tube dysfunction, left H69.82 [place] [address] 18931- 6413 Jun, [address] 68520- 2908 Jun, Hospital discharge follow-up Z09 ; Syncope, unspecified syncope type R55 and Acute suppurative otitis media of left ear without spontaneous rupture of tympanic membrane, recurrence not specified H66.002 [place] [id number] [place] [address] 28909- 6037 May, [address] 95541- 1747 May, [place] [address] 51967- 7295 May, [place] [address] 09712- 9852 May, Diabetes type 2, uncontrolled E11.65 ; [...] disturbance G47.9 and Generalized anxiety disorder F41.[address] 92073- 2546 March, [facility] [place] [address] [facility] [id number][place] [id number] March, Syncope, unspecified syncope type R55 and Depression, unspecified depression type F32.9 [facility] [place] [address] [id number][place] [address] March, Orthostatic hypotension I95.1 [facility] [place] [address] [id number] [address] March, [facility] [address] [facility] [place] [place] [id number], [place] [address]- 2546 March, [facility] [place] [address] [facility] [id number][place] [id number] Feb, [facility] [place] [address] [id number] [id number] Feb, Dental examination Z01.20 [facility] [place] [address] [id number][place] [address] Jan, [facility] [place] [address] [id number][place] [id number] Jan, [facility] [place] [address] [id number], [place] [id number] Dec, Diabetes type 2, uncontrolled E11.65 [facility] [place] [address] [id number][place] [id number] Nov, [facility] [place] [address] [id number] [place] [id number] Nov, Encounter for dental examination Z01.[address] [facility] [address] [id number] [place] [id number] Nov, Dental examination Z01.20 [facility] [address] [id number][place] [id number] Sep, Diabetes type 2, uncontrolled E11.[address] [facility] [address] [id number] [place] [address] Sep, Encounter for dental examination Z01.20 and Dental caries, unspecified K02.9 [facility] [place] [address] [address] Sep, Bipolar 2 disorder F31.81 [facility] [place] [id number] [place] [address] [id number] Aug, [facility] [place] [id number] [place] [address] [id number] Aug, Follow up V67.9 [facility] [id number] [place] [address] 10201- 4424 Jul, Bipolar disorder, unspecified 296.80 [facility] [place] [id number] [place] [address] [id number] Jul, Thyroid enlarged 240.9 and Bipolar disorder, unspecified 296.80 [facility] [place] [id number] [place] [address] [id number] Jun, Diabetes mellitus type 2, uncontrolled 250.02 ; Bipolar disorder, unspecified 296.80 and Rash 782.1 [facility] [place] [id number] [place] [address] [id number] Jun, [facility] [place] [id number] [place] [address] [id number] May, Urinary tract infection 599.0 [facility] [place] [id number] [place] [address] [id number] May, Urinary tract infection 599.0 [facility] [place] [id number] [place] [address] [id number] May, [facility] [address] [place] [address] [id number] May, Diabetes mellitus type 2, uncontrolled 250.02 and Pica in adults 307.52 [facility] [place] [id number] [place] [address] [id number] Apr, Follow up V67.9 and Diabetes mellitus type 2, uncontrolled 250.02 [facility] [place] [id number] [place] [address] [id number] Apr, [facility] [address] [place] [address] [id number]- 0287 Apr, [facility] [place] [id number] [place] [address] [id number] Apr, Hyperlipidemia 272.4 [facility] [id number], [place] [id number] March, Diabetes type 2, uncontrolled 250.02 [facility] [id number], [place] [id number] March, Diabetes mellitus type 2, uncontrolled 250.02 [facility] [place] [id number], [place] [id number] March, Diabetes type 2, uncontrolled 250.02 [facility] [id number], [place] [id number] March, [facility] [place] [id number] [place] [address] [id number] March, [facility] [id number] [place] [address] [id number] Feb, [facility] [place] [facility] [address] [place] [address] 77425- 2546 Feb, [facility] [place] [facility] [address] [id number], [place] [address]- 2546 Feb, [facility] [id number], [place] [id number] Jan, [facility] [place] [facility] [id number] [place] [address] 72301- 6026 Jan, [facility] [place] [facility] [address]00565100[place], [place] [address]- 2546 Jan, [facility] [id number], [place] [id number] Jan, [facility] [place] [facility] [address]65100[place], [place] [address]- 7646 Jan, [facility] [place] [facility] [id number] [place] [address] 93574- 2546 Jan, [facility] [id number], [place] [id number] Jan, [facility] [place] [facility] [id number] [place] [address] 88943- 6209 Jan, [facility] [place] [facility] [address] [facility] [id number][place] [address]- 2739 Dec, [facility] [address] [facility] [id number] [place] [id number] Dec, [facility] [place] [facility] [address] [facility] [id number] [place] [address]- 2396 Dec, [facility] [address] [facility] [id number] [place] [id number] Dec, [facility] [place] [facility] [address] [facility] [id number], [place] [address]- 9579 Dec, [facility] [address] [facility] [id number] [place] [id number] Dec, [facility] [place] [facility] [address] [id number], [place] [address]- 8056 Dec, [facility] [place] [facility] [address] [id number], [place] [address]- 9803 Dec, 2014 [facility] [address] [facility] [id number] [place] [id number] Dec, [facility] [address] [facility] [id number] [place] [id number] Dec, [facility] [place] [facility] [address], [place] [address]- 0255 Dec, [facility] [place] [facility] [address], [place] [address]- 4973 Nov, [facility] [place] [facility] [address] [facility] [id number], [place] [address]- 2893 Oct, [facility] [place] [facility] [address] [facility] [id number], [place] [address]- 5101 Oct, [facility] [address] [facility] [id number], [place] [id number] Sep, [facility] [place] [facility] [address] [id number], [place] [address]- 8152 Sep, [facility] [address] [id number] [place] 10182[address] Sep, [facility] [place] [facility] [address] [facility] [id number], [place] [address]- 8191 Sep, [facility] [address] [facility] [id number] [place] [id number] Aug, [facility] [place] [facility] [address] [facility] [id number], [place] [address]- 4129 Aug, [facility] [address] [facility] [id number], [place] [id number] Aug, [facility] [place] [facility] [address] [facility] [id number], [place] [address]- 4441 Aug, [facility] [place] [facility] [address] [facility] [id number], [place] [address]- 8225 Jul, [facility] [place] [facility] [address]65100[place], [place] [address]- 6955 Jul, [facility] [address] [facility] [id number], [place] [id number] Jul, [facility] [place] [facility] [address] [facility] [id number], [place] [address]- 6939 Jul, [facility] [address] [facility] [id number], [place] [id number] Jun, [facility] [address] [facility] [id number], [place] [id number] Jun, [facility] [place] [facility] [address] [facility] [id number], [place] [address]- 5323 Jun, [facility] [place] [facility] [address] [facility] [id number], [place] [address]- 6253 Jun, [facility] [address] [facility] [id number], [place] [id number] Jun, [facility] [place] [facility] [address] [facility] [id number], [place] [address]- 2724 Jun, [facility] [address] [facility] [id number], [place] [id number] May, [facility] [place] [facility] [address] [id number] [place] [address] 2546 May, [facility] [place] [facility] [address] [id number] [place] [address]- 2546 Apr, [facility] [place] [facility] [address] [facility] [id number] [place] [address]- 8496 Apr, [facility] [address] [facility] [id number], [place] [id number] Apr, [facility] [place] [facility] [address] [id number] [place] [address]- 9706 Apr, [facility] [place] [facility] [address] [facility] [id number] [place] [address]- 5876 Apr, [facility] [address] [id number] [place] [id number] March, [facility] [place] [facility] [address] [facility] [id number] [place] [address] 2546 March, [facility] [place] [facility] [address] [facility] [id number] [place] [address]- 1086 March, [facility] [address] [facility] [id number], [place] [id number] March, [facility] [place] [facility] [address] [facility] [id number], [place] [address]- 2546 March, [facility] [address] [facility] [id number], [place] [id number] March, [facility] [place] [facility] [address] [id number] [place] [address]- 2546 March, [facility] [address] [facility] [id number], [place] [id number] Feb, [facility] [place] [facility] [address] [facility] [id number] [place] [address] 2546 Feb, [facility] [place] [facility] [address] [facility] [id number] [place] [address]- 2546 Jan, [facility] [address] [facility] [id number], [place] [id number] Jan, [facility] [place] [facility] [address] [facility] [id number][place] [address]- 7473 Jan, [facility] [place] [facility] [address] [facility] [id number], [place] [address]- 6221 Jan, [facility] [address] [facility] [id number], [place] [id number] Jan, [facility] [address] [facility] [id number], [place] [id number] Dec, [facility] [place] [facility] [address] [facility] [id number], [place] [address]- 9909 Dec, [facility] [place] [facility] [address] [id number], [place] [address]- 8564 Dec, [facility] [address] [id number], [place] [id number] Dec, [facility] [place] [facility] [address]65[address], [place] [address]- 4577 Dec, [facility] [address] [facility] [id number], [place] [id number] Dec, [facility] [place] [facility] [address] [id number], [place] [address]- 0767 Dec, [facility] [place] [facility] [address] [id number], [place] [address]- 2194 Dec, [facility] [address] [facility] [id number][place] [id number] Dec, [facility] [address] [facility] [id number][place] [id number] Nov, [facility] [place] [facility] [address] [facility] [place] [id number][place] [address] Nov, [facility] [place] [facility] [id number], [place] [address] Nov, [facility] [address] [facility] [id number][place] [id number] Nov, [facility] [address] [id number][place] [id number] Oct, [facility] [place] [facility] [address] [facility] [place] [id number] [place] [address] Oct, [facility] [address] [facility] [id number][place] [id number] Oct, [facility] [place] [facility] [address] [facility] [place] [id number], [place] [address] Oct, [facility] [place] [facility] [address] [facility] [place] [id number], [place] [address] Oct, [facility] [place] [facility] [address] [id number] [place] [address] Oct, [facility] [address] [id number][place] [id number] Oct, [facility] [place] [facility] [id number], [place] [address] Oct, [facility] [place] [facility] [address] [id number], [place] [address] Sep, [facility] [place] [facility] [id number], [place] [address] Sep, [facility] [address] [id number][place] [id number] Sep, [facility] [place] [facility] [id number], [place] [address] Sep, [facility] [place] [facility] [address] [facility] [place] [id number], [place] [address] Sep, [facility] [address] [facility] [id number][place] [id number] Sep, [facility] [address] [facility] [id number][place] [id number] Aug, [facility] [place] [facility] [address] [id number], [place] [address] Aug, [facility] [place] [facility] [address] [id number], [place] [address] Aug, [facility] [address] [id number] [place] [id number] Aug, [facility] [address] [id number][place] [id number] Aug, [facility] [address] [facility] [place] [id number], [place] [address] Aug, [facility] [place] [facility] [address] [facility] [place] [id number], [place] [address] Aug, [facility] [place] [facility] [address] [facility] [place] [id number], [place] [address] Aug, [facility] [address] [facility] [id number][place] [id number] Jul, [facility] [place] [facility] [id number], [place] [address] Jul, [facility] [place] [facility] [address] [id number], [place] [address] Jul, [facility] [address] [id number][place] [id number] Jul, [facility] [address] [id number][place] [id number] Jul, [facility] [address] [facility] [place] [id number], [place] [address] May, [facility] [place] [facility] [address] [facility] [place] [id number][place] [address] Apr, [facility] [place] [address] [id number][place] [id number] Apr, [facility] [place] [address] [id number] [place] [phone] Apr, [facility] [place] [facility] [address] [facility] [place] [id number], [place] [address] March, [facility] [place] [address] [id number][place] [id number] March, [facility] [place] [address] [id number] [place] [id number] March, [facility] [place] [address] [id number] [place] [id number] March, [facility] [place] [address] [id number] [place] [id number] March, [facility] [place] [address] [id number] [place] [id number] March, [facility] [address] [facility] [place] [id number] [place] [address] March, [facility] [address] [facility] [place] [id number] [place] [address] March, [facility] [address]65[address], [place] [address] Feb, [facility] [place] [address] [id number] [place] [id number] Feb, [facility] [place] [address] [id number] [place] [id number] Feb, [facility] [place] [address] [id number] [place] [id number] Feb, [facility] [address]65100[place], [place] [address] Feb, [facility] [place] [address] [id number] [place] [address]3215[address]85 Feb, [facility] [place] [address] [id number] [place] [id number] Jan, [facility] [place] [address] [id number] [place] [id number] Jan, [facility] [place] [address] [id number] [place] [id number] Dec, [facility] [place] [address] [id number] [place] [address]55245984 Dec, [facility] [address] [facility] [place] [id number][place] [address] Dec, [facility] [place] [address] [id number] [place] [id number] Dec, [facility] [place] [address] [id number] [place] [id number] Dec, [facility] [place] [address] [id number] [place] [id number] Dec, [facility] [place] [address] [id number] [place] [id number] Dec, [facility] [address] [facility] [place] [id number], [place] [address] Nov, [facility] [place] [address] [id number] [place] [id number] Nov, [facility] [place] [address] [id number] [place] [id number] Nov, [facility] [place] [address] [id number] [place] [id number] Nov, [facility] [place] [address] [id number] [place] [id number] Nov, [facility] [address] [facility] [place] [id number][place] [address] Oct, [facility] [place] [address] [id number] [place] [id number] Oct, [facility] [place] [address] [id number] [place] [id number] Oct, [facility] [place] [address] [id number] [place] [id number] Oct, [facility] [address], [place] [address] Oct, [facility] [address] [facility] [place] [id number], [place] [address] Oct, [facility] [address] [facility] [place] [id number], [place] [address] Oct, [facility] [place] [address] [id number], [place] [id number] Sep, [facility] [address], [place] [address] Sep, [facility] [place] [facility] [address] [id number], [place] [address] Sep, [facility] [place] [address] [id number] [place] [id number] Sep, [facility] [place] [address] [id number], [place] [id number] Sep, [facility] [place] [address] [id number][place] 619448886 Sep, [facility] [place] [facility] [address] [facility] [place] [id number], [place] [address] Sep, [facility] [place] [facility] [address] [facility] [place] [id number], [place] [address] Sep, [facility] [place] [facility] [address] [facility] [place] [id number], [place] [address] Sep, [facility] [place] [id number], [place] [id number] Aug, [facility] [place] [facility] [address] [facility] [place] [id number], [place] [address] Aug, [facility] [place] [address] [id number], [place] 715371453 Aug, [facility] [place] [facility] [address] [facility] [place] [id number], [place] [address] Aug, [facility] [place] [facility] [address] [facility] [place] [id number], [place] [address] Aug, [facility] [place] [address] [id number], [place] [phone] Aug, [facility] [place] [address] [id number], [place] [id number] Aug, [facility] [place] [facility] [address] [facility] [place] [id number], [place] [address] Aug, [facility] [address] [id number], [place] [id number] Aug, [facility] [place] [address] [id number], [place] [id number] Jul, [facility] [place] [address] [id number] [place] [id number] Jun, [facility] [place] [address] [id number] [place] [id number] May, [facility] [place] [address] [id number] [place] [id number] May, [facility] [place] [address] [id number] [place] [id number] May, [facility] [place] [address] [id number] [place] 516984204 May, [facility] [place] [address] [id number] [place] [id number] May, [facility] [place] [address] [id number] [place] [id number] May, [facility] [place] [address] [id number] [place] [id number] May, [facility] [place] [address] [id number] [place] 745543723 Apr, [facility] [place] [address] [id number] [place] 907363391 Apr, [facility] [place] [address] [id number] [place] [id number] Apr, [facility] [place] [address] [id number] [place] 601571736 Apr, [facility] [place] [address] [id number] [place] [id number] Apr, [facility] [place] [address] [id number] [place] 137787734 Apr, [facility] [place] [address] [id number] [place] [id number] March, [facility] [place] [address] [id number] [place] [id number] March, [facility] [place] [address] [id number] [place] 058277934 Feb, [facility] [place] [address] [id number] [place] 972808859 Feb, [facility] [place] [address] [id number] [place] [id number] Feb, [facility] [place] [address] [id number] [place] [id number] Jan, [facility] [place] [address] [id number] [place] [id number] Jan, [facility] [place] [address] [id number] [place] [id number] Jan, [facility] [place] [address] [id number] [place] 367868185 Jan, [facility] [place] [address] [id number] [place] [id number] Dec, [facility] [address] [facility] [place] [id number] [place] [address] Dec, [facility] [place] [address] [id number] [place] [id number] Dec, [facility] [place] [address] [id number] [place] [id number] Nov, [facility] [place] [address] [id number] [place] [id number] Nov, [facility] [place] [address] [id number] [place] [id number] Nov, [facility] [place] [facility] [address], [place] 11244323- [address] Oct, [facility] [place] [facility] [address]100[place], [place] [address]- [address] Oct, [facility] [place] [facility] [address]100[place], [place] [address] Oct, [facility] [place] [facility] [address] [id number], [place] [address]- [address] Aug, [facility] [place] [facility] [id number] [place] [address]- [address] Aug, [facility] [place] [facility] [address], [place] [address]- [address] Aug, [facility] [place] [facility] [id number] [place] [address]- 140[address] March, [facility] [place] [facility] [address] [id number] [place] [address]- [address] Oct, [facility] [place] [facility] [address] [id number] [place] [address]- 4066 Oct, [facility] [place] [facility] [address] [id number] [place] [address]- [address]87 Sep, [facility] [place] [facility] [address] [id number] [place] [address]- [address] Sep, [facility] [place] [facility] [address] [id number] [place] [address]- 6[address] Sep, [facility] [place] [facility] [address] [id number] [place] [address]- 1413 Aug, [facility] [place] [facility] [address] [id number] [place] [address]- 98[address] Aug, [facility] [place] [facility] [address] [id number] [place] [address]- [address] Jun, [facility] [place] [facility] [address] [id number] [place] [address]- [address] May, [facility] [place] [facility] [address] [id number] [place] [address]- 6[address] Jan, [facility] [place] [facility] [address] [id number], [place] [address]- [address] Nov, [facility] [place] [facility] [address] [id number] [place] [address]- 0185 Oct, [facility] [place] [facility] [address] [id number] [place] [address]- 1990 Sep, [facility] [place] [facility] [address] [id number] [place] [address]- [address] Sep, [facility] [place] [facility] [address] [id number] [place] [address]- 267[address] Sep, [facility] [place] [facility] [address] [facility] [place] [id number] [place] [address]- [address] Sep, [facility] [address] [facility] [place] [id number], [place] [address]- [address] Sep, [facility] [address] [id number], [place] [address]- [address] Aug, [facility] [address] [facility] [place] [id number], [place] [address]- [address] Aug, [facility] [address] [facility] [place] [id number], [place] [address]- [address] Jul, [facility] [address] [facility] [place] [id number], [place] [address]- [address] Jun, IMMUNIZATIONS No Known Immunizations SOCIAL HISTORY Never Assessed REASON FOR VISIT no-show for DM ed PLAN OF CARE VITAL SIGNS MEDICATIONS Unknown [...] 08/2016 Hospitalization History chest pain ED visit , pt scheduled for heart cath on May Hospitalization History Ana 2012 Hospitalization History Chest pain-[facility] 12/22/16
--- OUTSIDE RECORDS SUMMARY | 2018-04-21 21:54 | XMS REPORT ---
Author Author OSWALDO ALTAMIRANO Organization [facility] Address [address] [place] [address] Care Team Providers Care Wind Operations Supervisor Name Role Phone ALTAMIRANOOSWALDO Antoino Unavailable PROBLEMS Type Condition ICD9-CM Code SLE18-FH Code Onset Dates Condition Status SNOMED Code Problem Polyneuropathy associated with underlying disease G63 Active 651037514 Problem Lumbago with sciatica, left side M54.42 Active 642300958 Problem Syncope, unspecified syncope type R55 Active 526642995 Problem Abnormal mammogram R92.8 Active 718079957 Problem Type 2 diabetes mellitus with diabetic polyneuropathy E11.42 Active 48291963 Problem Other seasonal allergic rhinitis J30.2 Active 194944798 Problem Lumbago with sciatica, right side M54.41 Active 168698833 Problem correction 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 Active 443758913 Problem Other chronic pain G89.29 Active 78367962 Problem Generalized anxiety disorder F41.1 Active 16009878 Problem Low serum HDL R74.8 Active 712636121 Problem Episodic mood disorder F39 Active 91919078 Problem Sleep disturbance G47.9 Active 31022182 Problem Dyslipidemia E78.5 Active 881091318 Problem Serum creatinine raised R79.89 Active 950093020 Problem Depression, unspecified depression type F32.9 Active 22987390 ALLERGIES Substance Reaction Event Type Date Status Codeine Phosphate dizziness Drug Allergy Dec, Active dental metal rash Non Drug Allergy Dec, Active SOCIAL HISTORY Never Assessed PLAN OF CARE Activity Details Follow Up 4 Weeks Reason:CHM/DM VITAL SIGNS Height 67.7 in 2016-12-25 Weight 190 lbs 2016-12-25 Temperature 98.8 degrees Fahrenheit 2016-12-25 Heart Rate 80 bpm 2016-12-25 Respiratory Rate 20 2016-12-25 BMI 29.14 kg/m2 2016-12-25 Blood pressure systolic 122 mmHg 2016-12-25 Blood pressure diastolic 80 mmHg 2016-12-25 MEDICATIONS Medication Instructions Dosage Frequency Start Date End Date Duration Status Victoza 18MG/3ML Subcutaneous Once a day 1.8mg 24h Active Cetirizine HCl 10MG TAKE ONE TABLET BY MOUTH ONCE DAILY 30 Active MetFORMIN HCl ER 500 MG Orally 2 times a day 1 tablet with evening meal 12h Dec, 30 day(s) Active Levemir 100 UNIT/ML Subcutaneous 2 times a day inject 65U in am and 75U at HS 12h 16 Dec, 2014 Active Trutest Blood Glucose Test Strip Active Pen [place] 31G X 8 MM subcutaneously 2 times a day as directed 12h Dec 90 days Active Insulin Syringe-Needle U-100 28G X 1/2 subcutaneously Once a day as directed 24h Dec, 90 days Active Trutest Blood Glucose Meter Active Fluticasone Propionate 50 MCG/ACT Nasally Once a day as needed 1 spray in each nostril Active Multivitamin Adult - Active Atorvastatin Calcium 40 MG Orally Once a day 1 tablet 24h Active Vitamin B-12 100 MCG Orally Once a day 1 tablet 24h Active Albuterol Sulfate 90 mcg/actuation Inhalation every 4- 6 hrs prn cough, shortness of breath or wheezing 2 puffs Dec, Active Aspirin 81 MG Orally every 2 days 1 tablet Active Cymbalta 60 mg Orally Once a day 1 capsule 24h 30 Jul, 2015 Active RESULTS No Results PROCEDURES Procedure Date Ordered Result Body Site GLYCATED HEMOGLOBIN TEST Dec 25, 2016 IMMUNIZATIONS No Known Immunizations MEDICAL (GENERAL) HISTORY [...] 08/2016 Hospitalization History chest pain ED visit [facility], pt scheduled for heart cath on May Hospitalization History Ana QUEEN 2012 Hospitalization History Chest pain-[facility] 12/22/16
--- OUTSIDE RECORDS SUMMARY | 2018-04-21 21:54 | XMS REPORT ---
Author Author OSWALDO ALTAMIRANO Organization [employer] Address Unknown Phone Unavailable Care Team Providers Care Supervisor Slashing Department Name Role Phone OSWALDO ALTAMIRANO CP Unavailable [...] with sciatica, left side M54.42 Active Medications Medication Code System Code Instructions Start Date End Date Status Dosage Gabapentin [facility] 36901473077 400MG Orally at bedtime 1 tablet Results No Known Results Summary Purpose [employer] Submission
--- OUTSIDE RECORDS SUMMARY | 2018-04-21 21:54 | XMS REPORT ---
Author Author OSWALDO ALTAMIRANO Organization [employer] Address Unknown Phone Unavailable Care Team Providers Care Applications Developer Name Role Phone OSWALDO ALTAMIRANO CP Unavailable [...]
--- OUTSIDE RECORDS SUMMARY | 2018-04-21 21:54 | XMS REPORT ---
Author Author SHAHEEN SOSA [facility] [employer] Address Unknown Phone Unavailable Care Team Providers Care Tube Blower Name Role Phone SHAHEEN SOSA CP Unavailable Allergies, Adverse Reactions, Alerts Substance Reaction Event Type Codeine Phosphate dizziness Drug Allergy dental metal rash Non Drug Allergy Problems Problem Type Condition ICD-9 Code Onset Dates Condition Status Assessment Bipolar disorder, unspecified 296.80 Active Problem Generalized anxiety disorder 300.02 Active Assessment Thyroid enlarged 240.9 Active Problem Hyperlipidemia 272.4 Active Problem Diabetes mellitus type 2, uncontrolled 250.02 Active Problem Urinary tract infection 599.0 Active Problem Bipolar disorder, unspecified 296.80 Active Problem Dysfunction of Eustachian tube 381.81 Active Problem Unspecified episodic mood disorder 296.90 Active Problem Unspecified sleep disturbance 780.50 Active Medications Medication Code System Code Instructions Start Date End Date Status Dosage Gabapentin [facility] [address]-65 400 mg Dec 18, 2014 take 1 capsule by Oral route 1 time per day at bedtime Polysaccharide Iron Complex [facility] [address]-22 150 MG Orally 2 times a day May 23, 2015 1 capsule Montelukast Sodium [facility] 03529967866 10MG TAKE ONE TABLET BY MOUTH ONCE DAILY IN THE EVENING Singulair [facility] [address]-10 10 MG Orally Once a day 1 tablet in the evening Cetirizine HCl [facility] 92104858003 10MG TAKE ONE TABLET BY MOUTH ONCE DAILY Abilify [facility] [address]-91 5 MG Orally Once a day Jul 01, 2015 1 tablet Albuterol Sulfate [facility] [address]-36 90 mcg/actuation Inhalation every 4- 6 hrs prn cough, shortness of breath or wheezing Dec 12, 2013 2 puffs Lovastatin [facility] [address]-86 20 MG Orally Once a day April 29, 2015 1 [facility] 0 Test Strips 3 times a day March 28, 2015 as directed Vitamin B-12 [facility] [address]-34 100 MCG Orally Once a day 1 tablet Trutest Blood Glucose Meter ND 0 March 28, 2015 as directed Triamcinolone Acetonide [facility] [address]-62 0.5 % Externally Twice a day Jul 01, 2015 1 application to affected area Victoza [facility] [address]-83 18 MG/3ML Subcutaneous Once a day 1.8mg Nexium [facility] [address]-73 20 MG Orally Once a day 1 capsule Lisinopril [facility] [address]-37 2.5 MG Orally Once a day March 25, 2015 1 tablet Levemir [facility] [address]-24 100 UNIT/ML Dec 24, 2014 inject by Subcutaneous route 2 times per day 60 U in am and 75U at bedtime Cymbalta [facility] [address]-67 60 MG Sep 17, 2014 take 1 capsule (60 mg) by oral route once daily metformin [facility] [address]-22 1,000 mg January 17, 2015 Take 1 tablet by Oral route 2 times per day Procedures Procedure Coding System Code Date VENIPUNCT, ROUTINE* CPT-4 26549 Jul 22, 2015 Office Visit, Est Pt., Level 3 CPT-4 05745 Jul 22, 2015 ASSAY THYROID STIM HORMONE CPT-4 30050 Jul 22, 2015 Vital Signs Date/Time: Jul 22, 2015 Temperature 98.4 F Weight 190.2 lbs Height 67 in BMI 29.79 Index Blood Pressure Diastolic 76 mmHg Blood Pressure Systolic 126 mmHg Cardiac Monitoring Heart Rate 75 bpm Results Name Result Date Reference Range Unit Abnormality Flag ROUTINE VENIPUNCTURE Summary Purpose [employer] Submission
--- OUTSIDE RECORDS SUMMARY | 2018-04-21 21:54 | XMS REPORT ---
Author Author ADARSH OSWALDO Organization [facility] Address [address] [place] [address] Care Team Providers Care Tutor Name Role Phone ALTAMIRANOOSWALDO Antonio Unavailable PROBLEMS Type Condition ICD9-CM Code LCA82-DB Code Onset Dates Condition Status SNOMED Code Problem Dyslipidemia E78.5 Active 680614677 Problem Depression, unspecified depression type F32.9 Active 25349828 Problem Diabetes type 2, uncontrolled E11.65 Active 988999782 Assessment Diabetes type 2, uncontrolled E11.65 Sep, Active 682482761 Problem Generalized anxiety disorder F41.1 Active 15345533 Problem Sleep disturbance G47.9 Active 44684915 Problem Episodic mood disorder F39 Active 96603778 Problem Syncope, unspecified syncope type R55 Active 329832238 Problem Polyneuropathy associated with underlying disease G63 Active 378553054 Problem Lumbago with sciatica, left side M54.42 Active 475234518 Problem Other chronic pain G89.29 Active 40220072 Problem Other seasonal allergic rhinitis J30.2 Active 643120323 Problem Lumbago with sciatica, right side M54.41 Active 850343139 ALLERGIES Substance Reaction Event Type Date Status Codeine Phosphate dizziness Drug Allergy Sep, Active dental metal rash Non Drug Allergy Sep, Active SOCIAL HISTORY No smoking Hx information available PLAN OF CARE VITAL SIGNS Height 67.7 in 2016-09-22 Weight 190 lbs 2016-09-22 Heart Rate 80 bpm 2016-09-22 Respiratory Rate 20 2016-09-22 BMI 29.14 kg/m2 2016-09-22 Blood pressure systolic 120 mmHg 2016-09-22 Blood pressure diastolic 86 mmHg 2016-09-22 MEDICATIONS Medication Instructions Dosage Frequency Start Date End Date Duration Status Lipitor 10 MG Orally Once a day 1 tablet 24h Jan, Active Victoza 18MG/3ML Subcutaneous Once a day 1.8mg 24h 30 Active Metformin HCl 1000MG 1 tablet 2 times a day Orally 30 Active Levemir 100 UNIT/ML Subcutaneous 2 times a day inject 60U in am and 75U at HS 12h 16 Dec, 2014 Active Trutest Blood Glucose Meter Active Vitamin B-12 100 MCG Orally Once a day 1 tablet 24h Active Cetirizine HCl 10MG TAKE ONE TABLET BY MOUTH ONCE DAILY 30 Active Cymbalta 60 mg Orally Once a day 1 capsule 24h 30 Jul, 2015 Active Albuterol Sulfate 90 mcg/actuation Inhalation every 4- 6 hrs prn cough, shortness of breath or wheezing 2 puffs Dec, Active Trutest Blood Glucose Test Strip Active Gabapentin 400MG Orally at bedtime 1 tablet 30 Active RESULTS Name Result Date Reference Range A1C (IN HOUSE) 2016-09-22 A1C IN HOUSE 9.4 4.3 - 5.6 % Previous A1c 7.8 Lot 0637 Exp date 07/26 PROCEDURES Procedure Date Ordered Related Diagnosis Body Site GLYCATED HEMOGLOBIN TEST Sep 22, 2016 Office Visit, Est Pt., Level 3 Sep 22, 2016 IMMUNIZATIONS No Known Immunizations
--- OUTSIDE RECORDS SUMMARY | 2018-04-21 21:54 | XMS REPORT ---
Author Author SHAHEEN SOSA Organization [employer] Address Unknown Phone Unavailable Care Team Providers Care Pathology Assistant Name Role Phone SHAHEEN SOSA CP Unavailable [...]
--- OUTSIDE RECORDS SUMMARY | 2018-04-21 21:54 | XMS REPORT ---
Author Author ALTAMIRANOOSWALDO Antonio Organization [facility] Address [address] [place] [address] Care Team Providers Care Room Cleaner Name Role Phone ALTAMIRANOOSWALDO Antonio Unavailable PROBLEMS Type Condition ICD9-CM Code CML58-JP Code Onset Dates Condition Status SNOMED Code Problem Polyneuropathy associated with underlying disease G63 Active 337508266 Problem Lumbago with sciatica, left side M54.42 Active 080333100 Problem Syncope, unspecified syncope type R55 Active 499218184 Problem Abnormal mammogram R92.8 Active 748765756 Problem Type 2 diabetes mellitus with diabetic polyneuropathy E11.42 Active 72287989 Problem Other seasonal allergic rhinitis J30.2 Active 704711364 Problem Lumbago with sciatica, right side M54.41 Active 263839092 Problem retirement 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 Active 306619697 Problem Other chronic pain G89.29 Active 22198770 Problem Generalized anxiety disorder F41.1 Active 28157446 Problem Low serum HDL R74.8 Active 711076328 Problem Episodic mood disorder F39 Active 52067988 Problem Sleep disturbance G47.9 Active 81629041 Problem Dyslipidemia E78.5 Active 551928990 Problem Serum creatinine raised R79.89 Active 263716801 Problem Depression, unspecified depression type F32.9 Active 79234397 ALLERGIES No Information SOCIAL HISTORY Never Assessed [...] 08/2016 Hospitalization History chest pain ED visit [facility] pt scheduled for heart cath on May Hospitalization History Ana QUEEN 2012 Hospitalization History Chest pain-[facility] 12/22/16
--- OUTSIDE RECORDS SUMMARY | 2018-04-21 21:55 | XMS REPORT ---
Author Author OSWALDO ALTAMIRANO Organization [employer] Address Unknown Phone Unavailable Care Team Providers Care Neuropsychology Division Chief Name Role Phone OSWALDO ALTAMIRANO CP Unavailable [...] Start Date End Date Status Dosage Victoza [facility] [id number] 18MG/3ML Subcutaneous Once a day 1.8mg Results No Known Results Summary Purpose [employer] Submission
--- OUTSIDE RECORDS SUMMARY | 2018-04-21 21:55 | XMS REPORT ---
Author Author ALTAMIRANOBUSTEROSWALDO Organization [facility] Address [address] [place] [address] Care Team Providers Care Erp Technical Lead Name Role Phone OSWALDO ALTAMIRANO Unavailable PROBLEMS Type Condition ICD9-CM Code SJR57-WQ Code Onset Dates Condition Status SNOMED Code Problem Syncope, unspecified syncope type R55 Active 900830652 Problem Lumbago with sciatica, right side M54.41 Active 951786748 Problem Lumbago with sciatica, left side M54.42 Active 917458347 Problem Stage 2 chronic kidney disease N18.2 Active 682615494 Problem Abnormal mammogram R92.8 Active 219212832 Problem Other chronic pain G89.29 Active 97341104 Problem Other seasonal allergic rhinitis J30.2 Active 561572590 Problem Type 2 diabetes mellitus with diabetic polyneuropathy E11.42 Active 10137810 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 Active 716736723 Problem Generalized anxiety disorder F41.1 Active 43296254 Problem Sleep disturbance G47.9 Active 07238925 Problem Episodic mood disorder F39 Active 85438285 Problem Dyslipidemia E78.5 Active 768881830 Problem Low serum HDL R74.8 Active 117920215 Problem Depression, unspecified depression type F32.9 Active 52835031 Problem Serum creatinine raised R79.89 Active 533513658 Problem Polyneuropathy associated with underlying disease G63 Active 036802675 ALLERGIES No Information ENCOUNTERS Encounter Location Date Diagnosis [facility] [address] [facility] [id number] [address] March, [facility] [address] [id number] [address] Feb, [address] [id number] [id number] Jan, Dental examination Z01.20 [facility] [place] [id number] [place] [address] 31320- 4395 Jan, Acute non-recurrent maxillary sinusitis J01.00 and Dyslipidemia E78.5 [facility] [place] [address] [id number] [address] Jan, Dental examination Z01.20 and Dental caries K02.[address] [id number] [id number] Jan, [address] [place] [id number] Dec, Dental examination Z01.20 [facility] [address] [address] Dec, Seasonal allergic rhinitis, unspecified trigger J30.[address] [address]- [address] Nov, [address] [address]- [address] Nov, Type 2 diabetes mellitus with diabetic polyneuropathy E11.42 ; Dyslipidemia E78.5 ; Lumbago with sciatica, right side M54.41 ; Lumbago with sciatica, left side M54.42 ; [facility] 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 ; Polyneuropathy associated with underlying disease G63 ; Stage 2 chronic kidney disease N18.2 and Syncope, unspecified syncope type R55 [place] [id number] [place] [address] 69986- 8041 Oct, Type 2 diabetes mellitus with diabetic polyneuropathy E11.42 ; Acute otitis externa of left ear, unspecified type H60.502 ; Overweight (BMI 25.0-29.9) E66.3 ; Dyslipidemia E78.5 and Polyneuropathy associated with underlying disease G63 [place] [id number] [place] [address] 22458- 2234 Sep, [address] [address]- [address] Aug, Abnormal mammogram R92.8 [place] [id number] [place] [address] 03457- 3429 Aug, Type 2 diabetes mellitus with diabetic polyneuropathy E11.42 [facility] [id number] [place] [address] 43020- 0232 Aug, [place] [id number] [place] [address] 86481- 2119 Aug, Type 2 diabetes mellitus with diabetic polyneuropathy E11.42 ; Syncope, unspecified syncope type R55 ; Other chronic pain G89.29 and Encounter for immunization Z23 [place] [address] [address]- [address] Aug, Type 2 diabetes mellitus with diabetic polyneuropathy E11.42 [place] [address] [address] [id number] [place] [address] 23243- 6912 Jul, Type 2 diabetes mellitus with diabetic polyneuropathy E11.42 and Serum creatinine raised R79.89 [place] [address] [id number] [place] [address] 20086- 9327 Jul, Type 2 diabetes mellitus with diabetic polyneuropathy E11.42 and Serum creatinine raised R79.89 [place] [address] [id number] [place] [address] 50429- 6804 May, [place] [id number] [place] [address] 37951- 5399 May, [place] [address] [id number] [place] [address] 23275- 5231 May, Head injury, initial encounter S09.90XA ; Facial pain R51 ; Neck pain M54.2 and Fall, initial encounter W19.XXXA [place] [id number] [place] [address] 28016- 1905 May, Type 2 diabetes mellitus with diabetic polyneuropathy E11.42 [place] [id number] [place] [address] 01961- 2866 May, [place] [address] [address] 7987 May, Type 2 diabetes mellitus with diabetic polyneuropathy E11.42 [place] [address] [id number] [place] [address] 29865- 4719 May, Dyslipidemia E78.5 ; [facility] 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 ; Type 2 diabetes mellitus with diabetic polyneuropathy E11.42 ; Generalized anxiety disorder F41.1 and Other seasonal allergic rhinitis J30.2 [place] [address] [id number] [place] [address] 66681- 5445 Apr, Type 2 diabetes mellitus with diabetic polyneuropathy E11.42 [place] [id number] [place] [address] 54915- 5475 March, [place] [id number] [place] [address] 71566- 8220 March, Abnormal mammogram R92.8 [place] [id number] [place] [address] 99567- 3875 Feb, Abnormal mammogram R92.8 [place] [address] [id number] [place] [address] 22666- 3553 Feb, Diabetes type 2, uncontrolled E11.65 [place] [id number] [place] [address] 39314- 0720 Feb, Screening for breast cancer Z12.39 [place] [id number] [place] [address] 85699- 3703 Jan, Screening for breast cancer Z12.39 [place] [address] [id number] [place] [address] 44165- 2230 Jan, Type 2 diabetes mellitus with diabetic polyneuropathy E11.42 ; MCC 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 ; Other viral agents as the cause of diseases classified elsewhere B97.89 and Acute upper respiratory infection, unspecified J06.9 [place] [id number] [place] [address] 00567- 1596 Jan, [place] [address] [place] [address] 45398- 1320 Dec, Diabetes type 2, uncontrolled E11.65 ; Dyslipidemia E78.5 ; Generalized anxiety disorder F41.1 ; Depression, unspecified depression type F32.9 ; 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 and Polyneuropathy associated with underlying disease G63 [place] [id number] [place] [address] 62945- 1862 Dec, [place] [address] [address] [id number] [place] [address] 04028- 7076 Dec, [place] [address] [id number] [place] [address] 00440- 7881 Dec, [place] [address] [id number] [place] [address] 01658- 4787 Dec, [place] [address] [id number] [place] [address] 43377- 0593 Oct, Well woman exam Z01.419 ; Screening for breast cancer Z12.39 ; 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 ; Type 2 diabetes mellitus without complications E11.9 and Encounter for immunization Z23 [place] [id number] [place] [address] 16492- 9078 Sep, [place] [address] [id number] [place] [address] 28083- 6227 Sep, Diabetes type 2, uncontrolled E11.65 ; Dyslipidemia E78.5 and Depression, unspecified depression type F32.9 [place] [id number] [place] [address] 57019- 6797 Aug, Diabetes type 2, uncontrolled E11.65 ; Encounter for immunization Z23 ; Nasal congestion R09.81 and Ear pressure, bilateral H93.8X3 [place] [id number] [place] [address] 82012- 5282 08 Jul, 2016 Eustachian tube dysfunction, left H69.82 [place] [address] [address]- 1547 Jun, [place] [address] [address] [id number] [place] [address] 07586- 2839 Jun, Hospital discharge follow-up Z09 ; Syncope, unspecified syncope type R55 and Acute suppurative otitis media of left ear without spontaneous rupture of tympanic membrane, recurrence not specified H66.002 [place] [id number] [place] [address] 86958- 6007 May, [place] [address] [id number] [place] [address] 92406- 8144 May, [place] [id number] [place] [address] 99942- 9676 May, [place] [id number] [place] [address] 72900- 0297 May, Diabetes type 2, uncontrolled E11.65 ; [...] disturbance G47.9 and Generalized anxiety disorder F41.1 [place] [address] [address] 3[address] March, [address]005[address]100[place] [address] March, Syncope, unspecified syncope type R55 and Depression, unspecified depression type F32.9 [facility] [address] [place] [address] [id number] March, Orthostatic hypotension I95.1 [facility] [address]005[address]100[place] [address] March, [place] [address] [id number] [address]- 2333 March, [facility] [address] [id number], [place] [id number] Feb, [facility] [place] [address] [id number] Feb, Dental examination Z01.20 [facility] [address] [id number], [place] 990[place] Jan, [facility] [address] [id number], [place] 238[place]151 Jan, [facility] [address] [id number], [place] [address]7516 Dec, Diabetes type 2, uncontrolled E11.65 [facility] [address] [id number], [place] [address]679[address] Nov, [facility] [place] [address] [id number] [address] Nov, Encounter for dental examination Z01.[address] [facility] [place] [address] [id number] 050074241 Nov, Dental examination Z01.20 [facility] [id number], [place] [address] Sep, Diabetes type 2, uncontrolled E11.65 [facility] [place] [address] [id number] [address] Sep, Encounter for dental examination Z01.20 and Dental caries, unspecified K02.9 [facility] [address] [id number][place] 9[address]120[address] Sep, Bipolar 2 disorder F31.81 [facility] [address] [id number], [place] [address]1301[address] Aug, [facility] [id number], [place] 120[address]75 Aug, Follow up V67.9 [facility] [id number] [address]- 1788 Jul, Bipolar disorder, unspecified 296.80 [facility] [address] [id number], [place] 818661111 Jul, Thyroid enlarged 240.9 and Bipolar disorder, unspecified 296.80 [facility] [id number] [place] [address] [id number] Jun, Diabetes mellitus type 2, uncontrolled 250.02 ; Bipolar disorder, unspecified 296.80 and Rash 782.1 [facility] [id number], [place] 550[address]165 Jun, [facility] [id number] [place] [address] [id number] May, Urinary tract infection 599.0 [facility] [id number] [place] [address] [id number] May, Urinary tract infection 599.0 [facility] [id number] [place] [address] [id number] May, [facility] [id number] [place] [address] [id number] May, Diabetes mellitus type 2, uncontrolled 250.02 and Pica in adults 307.52 [facility] [id number], [place] [address]959[address] Apr, Follow up V67.9 and Diabetes mellitus type 2, uncontrolled 250.02 [facility] [id number], [place] [address]006 Apr, [facility] [id number] [address] 2525 Apr, [facility] [id number], [place] 16[address] Apr, Hyperlipidemia 272.4 [facility] [id number], [place] [address] March, Diabetes type 2, uncontrolled 250.02 [facility] [id number], [place] 44[address]7048 March, Diabetes mellitus type 2, uncontrolled 250.02 [facility] [id number], [place] 9405[address]244 March, Diabetes type 2, uncontrolled 250.02 [facility] [address] [id number] [address] March, [facility] [address] [id number] [place] [id number] March, [facility] [address] [id number] [place] [id number] Feb, [facility] [place] [facility] [address] [facility] [id number] [place] [address]- 5136 Feb, [facility] [place] [facility] [address] [facility] [id number] [place] [address]- 9596 Feb, [facility] [address] [facility] [id number] [place] [id number] Jan, [facility] [place] [facility] [address] [address]- 5556 Jan, [facility] [place] [facility] [address] [place] [address]- 0347 Jan, [facility] [address] [facility] [id number], [place] [id number] Jan, [facility] [place] [facility] [address] [id number] [place] [address]- 2282 Jan, [facility] [place] [facility] [address]- 7860 Jan, [facility] [address] [id number], [place] [id number] Jan, [facility] [place] [facility] [address] [address]- 1992 Jan, [facility] [place] [facility] [address] [facility] [id number] [place] [address]- 9965 Dec, [facility] [address] [facility] [id number], [place] [id number] Dec, [facility] [place] [facility] [address] [facility] [id number] [place] [address]- 8876 Dec, [facility] [address] [facility] [id number], [place] 817202054 Dec, [facility] [place] [facility] [address] [id number] [place] [address]- 8346 Dec, 2014 [facility] [address] [id number] [place] [id number] Dec, 2014 [facility] [place] [facility] [address] [facility] [id number] [place] [address]- 3536 Dec, 2014 [facility] [place] [facility] [address] [facility] [id number] [place] [address]- 9909 Dec, 2014 [facility] [address] [id number] [place] 240859062 Dec, [facility] [address] [id number] [place] [id number] Dec, 2014 [facility] [place] [facility] [address] [facility] [id number] [place] [address]- 4606 Dec, [facility] [place] [facility] [address] [address]- 0207 Nov, [facility] [place] [facility] [address] [facility] [id number] [place] [address]- 6826 Oct, [facility] [place] [facility] [address] [address]- 2067 Oct, [facility] [address] [facility] [id number], [place] 045802383 Sep, [facility] [place] [facility] [address] [facility] [id number] [place] [address]- 0226 Sep, [facility] [address] [facility] [id number], [place] [id number] Sep, [facility] [place] [facility] [address] [facility] [id number] [place] [address]- 6 Sep, [facility] [address] [facility] [id number], [place] 154343847 Aug, [facility] [place] [facility] [address] [facility] [id number] [place] [address]- 2546 Aug, [facility] [address] [facility] [id number], [place] 517108472 Aug, [facility] [place] [facility] [address] [id number] [place] [address]- 8722 Aug, [facility] [place] [facility] [address] [facility] [id number] [place] [address]- 7531 Jul, [facility] [place] [facility] [address] [facility] [id number] [place] [address]- 3368 Jul, [facility] [address] [facility] [id number], [place] [id number] Jul, [facility] [place] [facility] [address] [facility] [id number] [place] [address]- 4668 Jul, [facility] [address] [facility] [id number], [place] 321769772 Jun, [facility] [address] [facility] [id number], [place] 546273811 Jun, [facility] [place] [facility] [address] [address]- 9475 Jun, [facility] [place] [facility] [address] [facility] [id number] [place] [address]- 9458 Jun, [facility] [address] [facility] [id number], [place] 785840567 Jun, [facility] [place] [facility] [address] [facility] [id number] [place] [address]- 4906 Jun, [facility] [address] [facility] [id number], [place] 085411712 May, [facility] [place] [facility] [address] [facility] [id number] [place] [address]- 2656 May, [facility] [place] [facility] [address] [facility] [id number] [place] [address]- 2451 Apr, [facility] [place] [facility] [address] [facility] [id number] [place] [address]- 1988 Apr, [facility] [address] [facility] [id number], [place] 602650798 Apr, [facility] [place] [facility] [address] [facility] [id number] [place] [address]- 2546 Apr, [facility] [place] [facility] [address] [facility] [id number] [place] [address]- 2546 Apr, [facility] [address] [facility] [id number], [place] [id number] March, [facility] [place] [facility] [address] [facility] [id number] [place] [address]- 2546 March, [facility] [place] [facility] [address] [facility] [id number] [place] [address]- 2546 March, [facility] [address] [facility] [id number] [place] 5369[address]173 March, [facility] [place] [facility] [address] [facility] [id number] [place] [address]- 2546 March, [facility] [address] [facility] [id number] [place] [id number] March, [facility] [place] [facility] [address] [facility] [id number] [place] [address]- 2546 March, [facility] [address] [facility] [id number], [place] [id number] Feb, [facility] [place] [facility] [address] [facility] [id number] [place] [address]- 2546 Feb, [facility] [place] [facility] [id number] [address]- 2546 Jan, [facility] [address] [facility] [id number], [place] [id number] Jan, [facility] [place] [facility] [address] [facility] [id number] [place] [address]- 2546 Jan, [facility] [place] [facility] [address] [facility] [id number] [place] [address]- 2546 Jan, [facility] [address] [id number] [place] [id number] Jan, [facility] [address] [facility] [id number], [place] 340791164 Dec, [facility] [place] [facility] [address] [facility] [id number] [place] [address]- 7694 Dec, [facility] [place] [facility] [address] [facility] [id number] [place] [address]- 6962 Dec, [facility] [address] [facility] [id number] [place] [id number] Dec, [facility] [place] [facility] [address] [facility] [id number] [place] [address]- 1086 Dec, [facility] [address] [facility] [id number] [place] [id number] Dec, [facility] [place] [facility] [id number] [address]- 3566 Dec, [facility] [place] [facility] [address] [id number] [place] [address]- 3271 Dec, [facility] [address] [id number], [place] 743204263 Dec, [facility] [address] [facility] [id number] [place] [id number] Nov, [facility] [place] [facility] [address] [address]- 3872 Nov, [facility] [place] [facility] [address] [id number] [address]- 5907 Nov, [facility] [id number], [place] 676126294 Nov, [facility] [address] [facility] [id number], [place] 965371587 Oct, [facility] [place] [facility] [address] [facility] [id number] [place] [address] Oct, [facility] [address] [facility] [id number][place] [id number] Oct, [facility] [place] [facility] [id number] [address] Oct, [facility] [place] [facility] [address] [id number] [address] Oct, [facility] [place] [facility] [address] [facility] [id number] [place] [address] Oct, [facility] [address] [facility] [id number][place] [id number] Oct, [facility] [place] [facility] [address] [facility] [id number] [place] [address] Oct, [facility] [place] [facility] [address] [facility] [id number] [address] Sep, [facility] [place] [facility] [address] [facility] [id number] [place] [address] Sep, [facility] [address] [facility] [id number][place] [id number] Sep, [facility] [address] [facility] [id number] [address] Sep, [facility] [place] [facility] [address] [facility] [id number] [address] Sep, [facility] [address] [id number][place] [id number] Sep, [facility] [address] [facility] [id number][place] [id number] Aug, [facility] [place] [facility] [address] [facility] [id number] [address] Aug, [facility] [place] [facility] [address] [facility] [id number] [place] [address] Aug, [facility] [address] [facility] [id number][place] [id number] Aug, [facility] [address] [facility] [id number][place] [id number] Aug, [facility] [place] [facility] [address] [facility] [id number] [place] [address] Aug, [facility] [place] [facility] [address] [facility] [id number] [place] [address] Aug, [facility] [place] [facility] [address] [facility] [id number] [place] [address] Aug, [facility] [address] [id number] [place] [id number] Jul, [facility] [address] [facility] [id number] [place] [address] Jul, [facility] [place] [facility] [address] [facility] [id number] [place] [address] Jul, [facility] [address] [id number] [place] [id number] Jul, [facility] [address] [id number] [place] [id number] Jul, [facility] [address] [id number] [address] May, [facility] [address] [id number] [address] Apr, [facility] [address] [id number] [place] [id number] Apr, [facility] [address] [id number] [place] [id number] Apr, [facility] [address] [facility] [id number] [place] [address] March, [facility] [place] [address] [id number] [place] [id number] March, [facility] [place] [address] [id number] [place] [id number] March, [facility] [place] [address] [id number] [place] [id number] March, [facility] [place] [address] [id number] [place] [id number] March, [facility] [place] [address] [id number] [place] [id number] March, [facility] [place] [facility] [address] [facility] [id number] [place] [address] March, [facility] [place] [facility] [address] [facility] [id number] [place] [address] March, [facility] [address] [facility] [id number] [place] [address] Feb, [facility] [place] [address] [id number] [place] [id number] Feb, [facility] [place] [address] [id number] [place] [id number] Feb, [facility] [place] [address] [id number] [place] [id number] Feb, [facility] [address] [facility] [id number] [place] [address] Feb, [facility] [place] [address] [id number] [place] [id number] Feb, [facility] [place] [address] [id number] [place] [id number] Jan, [facility] [place] [address] [id number] [place] [id number] Jan, [facility] [place] [address] [id number] [place] [id number] Dec, [facility] [place] [address] [id number] [place] [id number] Dec, [facility] [address] [id number] [place] [address] Dec, [facility] [place] [address] [id number][place] [id number] Dec, [facility] [place] [address] [id number][place] [id number] Dec, [facility] [place] [address] [id number] [place] [id number] Dec, [facility] [place] [address] [id number] [place] [id number] Dec, [facility] [address] [facility] [id number] [place] [address] Nov, [facility] [place] [address] [id number] [place] [id number] Nov, [facility] [place] [address] [id number] [place] [id number] Nov, [facility] [place] [address] [id number] [place] [id number] Nov, [facility] [place] [address] [id number] [place] [id number] Nov, [facility] [address] [id number] [place] [address] Oct, [facility] [place] [address] [id number] [id number] Oct, [facility] [place] [address] [id number] [place] [id number] Oct, [facility] [place] [address] [id number] [place] [id number] Oct, [facility] [id number] [place] [address] Oct, [facility] [address] [facility] [id number] [place] [address] Oct, [facility] [id number] [place] [address] Oct, [facility] [place] [address] [id number][place] [id number] Sep, [facility] [id number] [place] [address] Sep, [facility] [address] [facility] [id number] [place] [address] Sep, [facility] [place] [address] [id number] [place] [id number] Sep, [facility] [place] [address] [id number] [place] [id number] Sep, [facility] [place] [address] [id number] [place] [id number] Sep, [facility] [address] [facility] [id number] [place] [address] Sep, [facility] [place] [facility] [address] [facility] [id number] [place] [address] Sep, [facility] [place] [facility] [address] [facility] [id number] [place] [address] Sep, [facility] [place] [address] [id number][place] [id number] Aug, [facility] [place] [facility] [address] [facility] [id number] [place] [address] Aug, [facility] [place] [address] [id number][place] [id number] Aug, [facility] [place] [facility] [address] [facility] [id number] [place] [address] Aug, [facility] [place] [facility] [id number] [place] [address] Aug, [facility] [place] [address] [id number], [place] [id number] Aug, [facility] [place] [address] [id number], [place] [address] Aug, [facility] [id number] [place] [address] Aug, [facility] [place] [address] [id number][place] [id number] Aug, [facility] [place] [address] [id number], [place] [id number] Jul, [facility] [place] [address] [id number][place] [id number] Jun, [facility] [place] [address] [id number] [id number] May, [facility] [place] [address] [id number], [place] [id number] May, [facility] [place] [address] [id number], [place] 305873277 May, [facility] [place] [address] [id number], [place] [id number] May, [facility] [place] [address] [id number] [place] [id number] May, [facility] [place] [address] [id number] [place] [id number] May, [facility] [place] [address] [id number] [place] [id number] May, [facility] [place] [address] [id number] [place] [id number] Apr, [facility] [place] [address] [id number] [place] [id number] Apr, [facility] [place] [address] [id number] [place] [id number] Apr, [facility] [place] [address] [id number] [place] [address]60994051 Apr, [facility] [place] [address] [id number] [place] [id number] Apr, [facility] [place] [address] [id number] [place] 8[place]4797 Apr, [facility] [place] [address] [id number] [place]40[place]9543 March, [facility] [place] [address] [id number] [place] [id number] March, [facility] [place] [address] [id number] [place] [id number] Feb, [facility] [place] [address] [id number] [place] [address] Feb, [facility] [place] [address] [id number] [place] [id number] Feb, [facility] [place] [address] [id number] [place] [id number] Jan, [facility] [place] [address] [id number] [place] [address]231 Jan, [facility] [place] [address] [id number] [place] [id number] Jan, [facility] [place] [address] [id number] [place] 8[place]233896 Jan, [facility] [place] [address] [id number], [place] 061540166 Dec, [facility] [address] [id number] [place] [address]- [address] Dec, [facility] [place] [address] [id number] [place] [id number] Dec, [facility] [place] [address] [id number] [place] [id number] Nov, [facility] [place] [address] [id number] [place] [id number] Nov, [facility] [place] [address] [id number] [place] [id number] Nov, [facility] [place] [facility] [address] [facility] [id number] [place] [address]- [address]4 Oct, [facility] [place] [facility] [id number] [place] [address]- 0731 Oct, [facility] [place] [facility] [id number] [place] [address]- 0646 Oct, [facility] [place] [facility] [id number] [place] [address]57- 3865 Aug, [facility] [place] [facility] [id number] [place] [address]- 7813 Aug, [facility] [place] [facility] [id number] [place] [address]- 9446 Aug, [facility] [place] [facility] [id number] [place] [address]- 1647 March, [facility] [place] [facility] [address] [facility] [id number] [place] [address]- 9324 Oct, [facility] [place] [facility] [address] [facility] [id number] [place] [address] 35972- 5584 Oct, [facility] [place] [facility] [address] [facility] [id number] [place] [address]- 3908 Sep, [facility] [place] [facility] [id number] [place] [address]33- 1016 Sep, [facility] [place] [facility] [address] [id number] [place] [address]- [address] Sep, [facility] [place] [facility] [address] [id number] [place] [address]- [address]168 Aug, [facility] [place] [facility] [address] [id number] [place] [address]- 0806 Aug, [facility] [place] [facility] [address] [id number] [place] [address]- 1019 Jun, [facility] [place] [facility] [address] [id number] [place] [address]- 4066 May, [facility] [place] [facility] [address] [id number] [place] [address]- 8853 Jan, [facility] [place] [facility] [address] [id number] [place] [address]- 0805 Nov, [facility] [place] [facility] [address] [id number] [place] [address]- 3220 Oct, [facility] [place] [facility] [address] [id number] [place] [address]- 0305 Sep, [facility] [place] [facility] [address] [id number] [place] [address]- 3062 Sep, [facility] [place] [facility] [address] [id number] [place] [address]- 5632 Sep, [facility] [place] [facility] [address] [id number] [place] [address]- 6395 Sep, [facility] [place] [facility] [address] [id number] [place] [address]- 4149 Sep, [facility] [place] [facility] [address] [facility] [id number] [place] [address]- [address] 30 Aug, 2009 [facility] [place] [facility] [address] [id number] [place] [address]- 2866 Aug, [facility] [place] [facility] [address] [facility] [id number] [place] [address]- 8068 11 Jul, 2009 [facility] [address] [facility] [id number] [place] [address]- [address] Jun, IMMUNIZATIONS No Known Immunizations SOCIAL HISTORY Never Assessed REASON FOR VISIT DM ed scheduled PLAN OF CARE VITAL SIGNS MEDICATIONS Unknown [...] Hospitalization History [place] 2012 Hospitalization History Chest pain-[facility] 12/22/16
--- OUTSIDE RECORDS SUMMARY | 2018-04-21 21:56 | XMS REPORT ---
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 Name Role Phone PIYUSH RICHARDSY Unavailable PROBLEMS Type Condition ICD9-CM Code HVJ15-DD Code Onset Dates Condition Status SNOMED Code Problem Syncope, unspecified syncope type R55 Active 539117896 Problem Lumbago with sciatica, right side M54.41 Active 355997267 Problem Lumbago with sciatica, left side M54.42 Active 689998230 Problem Stage 2 chronic kidney disease N18.2 Active 237394499 Problem Abnormal mammogram R92.8 Active 451403092 Problem Other chronic pain G89.29 Active 02511267 Problem Other seasonal allergic rhinitis J30.2 Active 548092663 Problem Type 2 diabetes mellitus with diabetic polyneuropathy E11.42 Active 77669449 Problem custodial 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 Active 205557037 Problem Generalized anxiety disorder F41.1 Active 77807001 Problem Sleep disturbance G47.9 Active 89355221 Problem Episodic mood disorder F39 Active 78385505 Problem Dyslipidemia E78.5 Active 617003451 Problem Low serum HDL R74.8 Active 725999080 Problem Depression, unspecified depression type F32.9 Active 91489429 Problem Serum creatinine raised R79.89 Active 676786571 Problem Polyneuropathy associated with underlying disease G63 Active 012759921 ALLERGIES Substance Reaction Event Type Date Status MetFORMIN HCl ER nausea and vomiting Drug Allergy May, Active Codeine Phosphate dizziness Drug Allergy May, Active dental metal rash Non Drug Allergy May, Active ENCOUNTERS Encounter Location Date Diagnosis [facility] [address] [facility] [id number], [place] [address] March, [facility] [address] [facility] [id number], [place] [address] Feb, [facility] [address], [place] [address] Feb, [facility] [id number] [place] [address] 14641- 8190 Jan, [facility] [address] [facility] [address] [id number] [id number] Jan, Dental examination Z01.20 [facility] [id number] [place] [address] 65460- 4736 Jan, Acute non-recurrent maxillary sinusitis J01.00 and Dyslipidemia E78.[address] [facility] [id number] [place] [address] [id number] Jan, Dental examination Z01.20 and Dental caries K02.9 [facility] [address] [place] [address] [facility] [id number] [place] [address] [id number] Jan, [facility] [address] [place] [address] [facility] [id number] [place] [address] [id number] Dec, Dental examination Z01.20 [facility] [id number] [place] [address] 45148 -6998 Dec, Seasonal allergic rhinitis, unspecified trigger J30.2 [place] [id number] [place] [address] 88999- 9440 Nov, [place] [id number] [place] [address] 34187- 6965 Nov, Type 2 diabetes mellitus with diabetic polyneuropathy E11.42 ; Dyslipidemia E78.5 ; Lumbago with sciatica, right side M54.41 ; Lumbago with sciatica, left side M54.42 ; 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 ; Polyneuropathy associated with underlying disease G63 ; Stage 2 chronic kidney disease N18.2 and Syncope, unspecified syncope type R55 [facility] [address] [place] [address] 20902- 4951 Oct, Type 2 diabetes mellitus with diabetic polyneuropathy E11.42 ; Acute otitis externa of left ear, unspecified type H60.502 ; Overweight (BMI 25.0-29.9) E66.3 ; Dyslipidemia E78.5 and Polyneuropathy associated with underlying disease G63 [place] [id number] [place] [address] 75498- 2439 Sep, [place] [address] [address]61- 4279 Aug, Abnormal mammogram R92.8 [place] [address] 80927- 8358 Aug, Type 2 diabetes mellitus with diabetic polyneuropathy E11.42 [place] [address] 93071- 7834 Aug, [place] [address] 11121- 3049 Aug, Type 2 diabetes mellitus with diabetic polyneuropathy E11.42 ; Syncope, unspecified syncope type R55 ; Other chronic pain G89.29 and Encounter for immunization Z23 [place] [address] 54977- 7071 Aug, Type 2 diabetes mellitus with diabetic polyneuropathy E11.42 [place] [id number] [place] [address] 05711- 7835 Jul, Type 2 diabetes mellitus with diabetic polyneuropathy E11.42 and Serum creatinine raised R79.89 [place] [id number] [place] [address] 07307- 1468 Jul, Type 2 diabetes mellitus with diabetic polyneuropathy E11.42 and Serum creatinine raised R79.89 [place] [address] 63194- 1041 May, [place] [address] 74681- 7981 May, [place] [address] 43390- 2612 May, Head injury, initial encounter S09.90XA ; Facial pain R51 ; Neck pain M54.2 and Fall, initial encounter W19.XXXA [place] [id number] [place] [address] 80472- 5852 May, Type 2 diabetes mellitus with diabetic polyneuropathy E11.42 [place] [id number] [place] [address] 09345- 9102 May, [place] [address] 78693- 6729 May, Type 2 diabetes mellitus with diabetic polyneuropathy E11.42 [place] [address] 96323- 1261 May, Dyslipidemia E78.5 ; custodial 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 ; Type 2 diabetes mellitus with diabetic polyneuropathy E11.42 ; Generalized anxiety disorder F41.1 and Other seasonal allergic rhinitis J30.2 [place] [id number] [place] [address] 49146- 9105 Apr, Type 2 diabetes mellitus with diabetic polyneuropathy E11.42 [place] [id number] [place] [address] 93571- 2395 March, [place] [id number] [place] [address] 69719- 2374 March, Abnormal mammogram R92.8 [place] [id number] [place] [address] 87464- 9484 Feb, Abnormal mammogram R92.8 [place] [id number] [place] [address] 95354- 5001 Feb, Diabetes type 2, uncontrolled E11.65 [place] [id number] [place] [address] 70342- 2795 Feb, Screening for breast cancer Z12.39 [place] [id number] [place] [address] 91369- 3451 Jan, Screening for breast cancer Z12.39 [place] [address]65[address], [place] [address]- 0281 Jan, Type 2 diabetes mellitus with diabetic polyneuropathy E11.42 ; 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 ; Other viral agents as the cause of diseases classified elsewhere B97.89 and Acute upper respiratory infection, unspecified J06.9 [place] [id number] [place] [address] 48155- 2778 Jan, [place] [id number] [place] [address] 48818- 9840 Dec, Diabetes type 2, uncontrolled E11.65 ; Dyslipidemia E78.5 ; Generalized anxiety disorder F41.1 ; Depression, unspecified depression type F32.9 ; 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 and Polyneuropathy associated with underlying disease G63 [place] [id number] [place] [address] 09314- 8528 16 Dec, 2016 [place] [id number] [place] [address] 23082- 5077 Dec, [place] [id number] [place] [address] 91218- 5086 Dec, [place] [address] [place] [address] 05216- 2851 Dec, [place] [id number] [place] [address] 18983- 8953 Oct, Well woman exam Z01.419 ; Screening for breast cancer Z12.39 ; custodial 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 ; Type 2 diabetes mellitus without complications E11.9 and Encounter for immunization Z23 [place] [id number] [place] [address] 41620- 5451 Sep, [place] [address] [place] [address] 92078- 0363 Sep, Diabetes type 2, uncontrolled E11.65 ; Dyslipidemia E78.5 and Depression, unspecified depression type F32.9 [place] [address] [place] [address] 32915- 5397 Aug, Diabetes type 2, uncontrolled E11.65 ; Encounter for immunization Z23 ; Nasal congestion R09.81 and Ear pressure, bilateral H93.8X3 [place] [id number] [place] [address] 52950- 4875 Jul, Eustachian tube dysfunction, left H69.82 [place] [id number] [place] [address] 12434- 7598 Jun, [place] [address] 54272- 7655 Jun, Hospital discharge follow-up Z09 ; Syncope, unspecified syncope type R55 and Acute suppurative otitis media of left ear without spontaneous rupture of tympanic membrane, recurrence not specified H66.002 [place] [id number] [place] [address] 67018- 1029 May, [place] [id number] [place] [address] 50676- 7727 May, [place] [id number] [place] [address] 89140- 3857 May, [place] [id number] [place] [address] 25276- 3911 May, Diabetes type 2, uncontrolled E11.65 ; [...] disturbance G47.9 and Generalized anxiety disorder F41.1 [place] [id number] [place] [address] 43519- 2312 March, [facility] [id number] [place] [address] [id number] March, Syncope, unspecified syncope type R55 and Depression, unspecified depression type F32.9 [facility] [id number] [place] [address] [id number] March, Orthostatic hypotension I95.1 [facility] [id number] [place] [id number] March, [facility] [place] [id number], [place] [address]- 5605 March, [facility] [id number] [place] [address] [id number] Feb, [facility] [address] [facility] [id number] [place] [address] [id number] Feb, Dental examination Z01.20 [facility] [id number] [place] [address] [id number] Jan, [facility] [id number] [place] [address] [id number] Jan, [facility] [id number] [place] [address] [id number] Dec, Diabetes type 2, uncontrolled E11.65 [facility] [id number] [place] [address] [id number] Nov, [facility] [address] [id number] [id number] Nov, Encounter for dental examination Z01.20 [facility] [address] [id number] [id number] Nov, Dental examination Z01.20 [facility] [id number] [place] [address] [id number] Sep, Diabetes type 2, uncontrolled E11.65 [facility] [id number] [place] [address] [id number] Sep, Encounter for dental examination Z01.20 and Dental caries, unspecified K02.9 [facility] [address] [place] [address] [id number] Sep, Bipolar 2 disorder F31.81 [facility] [place] [id number] [place] [id number] Aug, [facility] [id number] [place] [address] [id number] Aug, Follow up V67.9 [facility] [place] [address] [address] [address]24 Jul, Bipolar disorder, unspecified 296.80 [facility] [id number] [place] [address] [id number] Jul, Thyroid enlarged 240.9 and Bipolar disorder, unspecified 296.80 [facility] [id number] [place] [address] [id number] Jun, Diabetes mellitus type 2, uncontrolled 250.02 ; Bipolar disorder, unspecified 296.80 and Rash 782.1 [facility] [id number] [place] [address] [id number] Jun, [facility] [id number] [place] [address] [id number] May, Urinary tract infection 599.0 [facility] [id number] [place] [address] [id number] May, Urinary tract infection 599.0 [facility] [id number] [place] [address] [id number] May, [facility] [id number] [place] [id number] May, Diabetes mellitus type 2, uncontrolled 250.02 and Pica in adults 307.52 [facility] [id number] [place] [id number] Apr, Follow up V67.9 and Diabetes mellitus type 2, uncontrolled 250.02 [facility] [id number] [place] [id number] Apr, [facility] [place] [address] [address]- 3113 Apr, [facility] [address] [address] [id number] [place] [id number] Apr, Hyperlipidemia 272.4 [facility] [address] [id number] [address] March, Diabetes type 2, uncontrolled 250.02 [facility] [address] [id number] [place] [id number] March, Diabetes mellitus type 2, uncontrolled 250.02 [facility] [address] [id number] [place] [address] March, Diabetes type 2, uncontrolled 250.02 [facility] [id number] [place] [id number] March, [facility] [id number] [place] [id number] March, [facility] [id number] [place] [address] Feb, [facility] [facility] [address], [place] [address]- 8856 Feb, [facility] [address], [place] [address]- 8736 Feb, [facility] [id number] [place] [id number] Jan, [facility] [facility] [address]100[place], [place] [address]- 4564 Jan, [facility] [address], [place] [address]- 1245 Jan, [facility] [address] [id number] [place] [id number] Jan, [facility] [facility] [address]65[address], [place] [address]- 6776 Jan, [facility] [address] [id number], [place] [address]- 0666 Jan, [facility] [id number] [place] [id number] Jan, [facility] [address], [place] [address]- 1806 Jan, [facility] [facility] [address], [place] [address]- 6246 Dec, 2014 [facility] [address] [facility] [id number] [place] [id number] Dec, [facility] [facility] [address] [id number], [place] [address]- 9766 Dec, 2014 [facility] [address] [id number] [place] [address] Dec, [facility] [facility] [address] [id number], [place] [address]- 7386 Dec, 2014 [facility] [address] [facility] [id number] [place] [id number] Dec, [facility] [facility] [address], [place] [address]- 4136 Dec, 2014 [facility] [facility] [address], [place] [address]- 2546 Dec, [facility] [address] [id number] [place] [address] Dec, [facility] [address] [id number] [place] [id number] Dec, [facility] [facility] [address], [place] [address]- 5876 Dec, [facility] [address]100[place], [place] [address]- 3953 Nov, [facility] [address], [place] [address]- 9026 Oct, [facility] [place] [facility] [address] [facility] [id number], [place] [address]- 6927 Oct, [facility] [id number] [place] [address] Sep, [facility] [address] [facility] [id number], [place] [address]- 5506 Sep, [facility] [id number] [place] 413[address] Sep, [facility] [facility] [address] [facility] [id number], [place] [address]- 8503 Sep, [facility] [address] [facility] [id number] [place] [id number] Aug, [facility] [place] [facility] [address] [facility] [id number], [place] [address]- 3054 Aug, [facility] [address] [facility] [id number] [place] [id number] Aug, [facility] [place] [facility] [address] [facility] [id number] [place] [address]- 3507 Aug, [facility] [place] [facility] [address] [facility] [id number] [place] [address]- 6792 Jul, [facility] [place] [facility] [address] [facility] [id number], [place] [address]- 1878 Jul, [facility] [address] [facility] [id number] [place] [id number] Jul, [facility] [place] [facility] [address] [facility] [id number], [place] [address]- 4890 Jul, [facility] [address] [id number] [place] [id number] Jun, [facility] [address] [facility] [id number] [place] [id number] Jun, [facility] [place] [facility] [address] [facility] [id number], [place] [address]- 6655 Jun, [facility] [facility] [address] [facility] [id number], [place] [address]- 5725 Jun, [facility] [address] [facility] [id number] [place] 827579985 Jun, [facility] [place] [facility] [address] [facility] [id number], [place] [address]- 0669 Jun, [facility] [address] [facility] [id number] [place] [address]3095[address]22 May, [facility] [place] [facility] [address] [facility] [id number], [place] [address]- 5256 May, [facility] [place] [facility] [address] [id number] [place] [address]- 2134 Apr, [facility] [place] [facility] [address] [id number] [place] [address]- 4816 Apr, [facility] [address] [id number] [place] [id number] Apr, [facility] [place] [facility] [address] [id number] [place] [address]- 3126 Apr, [facility] [place] [facility] [address] [id number] [place] [address]- 6958 Apr, [facility] [address] [facility] [id number] [place] [id number] March, [facility] [place] [facility] [address] [facility] [id number] [place] [address]- 2666 March, [facility] [place] [facility] [address] [facility] [id number], [place] [address]- 2484 March, [facility] [address] [id number] [place] [id number] March, [facility] [place] [facility] [address] [facility] [id number], [place] [address]- 2426 March, [facility] [address] [facility] [id number] [place] [id number] March, [facility] [place] [facility] [address] [id number] [place] [address]- 3716 March, [facility] [address] [id number] [place] 4[place] Feb, [facility] [place] [facility] [address] [id number] [place] [address]- 3066 Feb, [facility] [place] [facility] [address] [facility] [id number] [place] [address]- 2546 Jan, [facility] [address] [id number] [place] [id number] Jan, [facility] [place] [facility] [address] [facility] [id number], [place] [address]- 6116 Jan, [facility] [place] [facility] [address] [facility] [id number], [place] [address]- 6007 Jan, [facility] [address] [facility] [id number] [place] [id number] Jan, [facility] [address] [facility] [id number] [place] 613[address]83 Dec, [facility] [place] [facility] [address] [facility] [id number], [place] [address]- 5246 Dec, [facility] [facility] [address] [facility] [id number], [place] [address]- 4522 Dec, [facility] [address] [facility] [id number] [place] [id number] Dec, [facility] [place] [facility] [address] [id number], [place] [address] 2546 Dec, [facility] [address] [facility] [id number] [place] [id number] Dec, [facility] [place] [facility] [address] [facility] [id number], [place] [address]- 4476 Dec, [facility] [place] [facility] [address] [facility] [id number], [place] [address] 2546 Dec, [facility] [address] [facility] [id number] [place] [id number] Dec, [facility] [address] [facility] [id number] [place] 877849248 Nov, [facility] [facility] [address] [facility] [id number], [place] [address]- 2546 Nov, [facility] [facility] [address] [facility] [id number], [place] [address]- 2546 Nov, [facility] [address] [id number] [place] [id number] Nov, [facility] [address] [facility] [id number] [place] [address]58[address]242 Oct, [facility] [address] [id number], [place] [address]- 5336 Oct, [facility] [address] [id number] [place] [id number] Oct, [facility] [address] [id number] [place] [address]- 5106 Oct, [facility] [place] [facility] [address] [facility] [id number] [place] [address]- 3996 Oct, [facility] [address] [id number], [place] [address]- 1245 Oct, [facility] [address] [facility] [id number] [place] 005106[address] Oct, [facility] [address] [facility] [id number], [place] [address] Oct, [facility] [address] [facility] [id number], [place] [address] Sep, [facility] [address] [facility] [id number], [place] [address] Sep, [facility] [address] [facility] [id number] [place] [id number] Sep, [facility] [address] [facility] [id number], [place] [address] Sep, [facility] [place] [facility] [address] [facility] [id number], [place] [address] Sep, [facility] [address] [id number] [place] [id number] Sep, [facility] [address] [id number] [place] [id number] Aug, [facility] [place] [facility] [address] [facility] [id number], [place] [address] Aug, [facility] [place] [facility] [address] [id number], [place] [address] Aug, [facility] [address] [id number] [place] [id number] Aug, [facility] [address] [id number] [place] [id number] Aug, [facility] [place] [facility] [address] [facility] [id number], [place] [address] Aug, [facility] [place] [facility] [address] [facility] [id number], [place] [address] Aug, [facility] [place] [facility] [address] [facility] [id number], [place] [address] Aug, [facility] [address] [facility] [id number] [place] [id number] Jul, [facility] [place] [facility] [address] [facility] [id number], [place] [address] Jul, [facility] [place] [facility] [address] [facility] [id number], [place] [address] Jul, [facility] [address] [facility] [id number] [place] [id number] Jul, [facility] [address] [facility] [id number] [place] [id number] Jul, [facility] [place] [facility] [address] [facility] [id number], [place] [address] May, [facility] [place] [facility] [address] [facility] [id number], [place] [address] Apr, [facility] [address] [id number] [place] [id number] Apr, [facility] [address] [id number] [place] [id number] Apr, [facility] [place] [facility] [address] [facility] [id number], [place] [address] March, [facility] [address] [id number] [place] [id number] March, [facility] [address] [id number] [place] [id number] March, [facility] [address] [id number] [place] [id number] March, [facility] [address] [id number] [place] [id number] March, [facility] [address] [id number] [place] [id number] March, [facility] [address] [facility] [id number], [place] [address] March, [facility] [address] [facility] [id number], [place] [address] March, [facility] [address] [facility] [id number], [place] [address] Feb, [facility] [place] [address] [id number] [place] [id number] Feb, [facility] [place] [address] [id number] [place] [id number] Feb, [facility] [place] [address] [id number] [place] [id number] Feb, [facility] [address], [place] [address] Feb, [facility] [place] [address] [id number] [place] [id number] Feb, [facility] [place] [address] [id number] [place] [id number] Jan, [facility] [place] [address] [id number] [place] [id number] Jan, [facility] [place] [address] [id number] [place] [id number] Dec, [facility] [place] [address] [id number] [place] [id number] Dec, [facility] [address] [facility] [id number], [place] [address] Dec, [facility] [place] [address] [id number] [place] [id number] Dec, [facility] [place] [address] [id number] [place] [id number] Dec, [facility] [place] [address] [id number] [place] [address] Dec, [facility] [place] [address] [id number] [place] [id number] Dec, [facility] [address] [facility] [id number], [place] [address] Nov, [facility] [place] [address] [id number] [place] [id number] Nov, [facility] [place] [address] [id number] [place] [id number] Nov, [facility] [place] [address] [id number] [place] [id number] Nov, [facility] [place] [address] [id number] [place] [id number] Nov, [facility] [address], [place] [address] Oct, [facility] [place] [address] [id number] [place] [id number] Oct, [facility] [place] [address] [id number] [place] [id number] Oct, [facility] [place] [address] [id number] [place] [id number] Oct, [facility] [address]65[address], [place] [address] Oct, [facility] [place] [facility] [address] [facility] [id number], [place] [address] Oct, [facility] [place] [facility] [address] [facility] [id number], [place] [address] Oct, [facility] [place] [address] [id number] [place] [id number] Sep, [facility] [place] [facility] [address] [facility] [id number], [place] [address] Sep, [facility] [address], [place] [address] Sep, [facility] [place] [address] [id number] [place] [id number] Sep, [facility] [place] [address] [id number] [place] [id number] Sep, [facility] [place] [address] [id number] [place] [id number] Sep, [facility] [address] [facility] [id number], [place] [address] Sep, [facility] [place] [facility] [address] [facility] [id number], [place] [address] Sep, [facility] [address] [facility] [id number] [place] [address] Sep, [facility] [place] [address] [facility] [id number] [place] [id number] Aug, [facility] [id number] [place] [address] Aug, [facility] [address] [facility] [id number] [place] [id number] Aug, [facility] [address] [facility] [id number], [place] [address] Aug, [facility] [place] [facility] [address] [facility] [id number], [place] [address] Aug, [facility] [address] [id number] [place] [id number] Aug, [facility] [place] [address] [id number] [place] [address] Aug, [facility] [place] [facility] [address] [facility] [id number], [place] [address] Aug, [facility] [address] [id number] [place] [id number] Aug, [facility] [address] [id number] [place] [id number] Jul, [facility] [address] [id number] [place] [id number] Jun, [facility] [place] [address] [id number] [place] [address]65[address] May, [facility] [place] [address] [id number] [id number] May, [facility] [place] [address] [id number] [place] [address] May, [facility] [place] [address] [id number] [place] [id number] May, [facility] [place] [address] [id number] [place] [id number] May, [facility] [place] [address] [id number] [place] [id number] May, [facility] [place] [address] [id number] [place] [id number] May, [facility] [place] [address] [id number] [place] [id number] Apr, [facility] [place] [address] [id number] [place] [address] Apr, [facility] [place] [address] [id number] [place] [id number] Apr, [facility] [place] [address] [id number] [place] [address] Apr, [facility] [place] [address] [id number] [place] [id number] Apr, [facility] [place] [address] [id number] [place] [id number] Apr, [facility] [place] [address] [id number] [place] [id number] March, [facility] [place] [address] [id number] [place] [id number] March, [facility] [place] [address] [id number] [id number] Feb, [facility] [place] [address] [id number] [place] [id number] Feb, [facility] [place] [address] [id number] [place] [id number] Feb, [facility] [place] [address] [id number] [place] [id number] Jan, [facility] [place] [address] [id number] [place] [id number] Jan, [facility] [place] [address] [id number] [place] [id number] Jan, [facility] [place] [address] [id number] [place] [id number] Jan, [facility] [place] [address] [id number] [place] [id number] Dec, [facility] [place] [facility] [address] [facility] [id number], [place] [address] Dec, [facility] [place] [address] [id number] [place] [id number] Dec, [facility] [place] [address] [id number] [place] [id number] Nov, [facility] [place] [address] [id number] [place] [id number] Nov, [facility] [place] [address] [id number] [place] [id number] Nov, [facility] [place] [facility] [address] [id number], [place] [address] Oct, [facility] [place] [facility] [address] [id number], [place] [address] Oct, [facility] [place] [facility] [address], [place] [address] Oct, [facility] [place] [facility] [address] [facility] [id number], [place] [address] Aug, [facility] [place] [facility] [address] [facility] [id number], [place] [address] Aug, [facility] [place] [facility] [address] [facility] [id number], [place] [address] Aug, [facility] [place] [facility] [address]65[address], [place] [address] March, [facility] [place] [facility] [id number] [place] [address] Oct, [facility] [address] [id number] [place] [address]- [address] Oct, [facility] [place] [facility] [address] [id number] [place] [address]- [address] Sep, [facility] [address] [id number] [place] [address]- [address] Sep, [facility] [place] [facility] [address] [id number] [place] [address]- [address] Sep, [facility] [place] [facility] [address] [id number] [place] [address]- [address] Aug, [facility] [place] [facility] [address] [id number] [place] [address]- [address] Aug, [facility] [address] [id number] [place] [address]- [address] Jun, [facility] [place] [facility] [address] [id number] [place] [address]- [address] May, [facility] [place] [facility] [address] [id number] [place] [address]- [address] Jan, [facility] [place] [facility] [address] [id number] [place] [address]- [address] Nov, [facility] [place] [facility] [address] [id number] [place] [address]- [address] Oct, [facility] [place] [facility] [address] [id number] [place] [address]- [address] Sep, [facility] [place] [facility] [address] [id number] [place] [address]- [address] Sep, [facility] [place] [facility] [address] [id number] [place] [address]- [address] Sep, [facility] [place] [facility] [address] [id number], [place] [address] Sep, [facility] [address] [facility] [id number], [place] [address]- [address] Sep, [facility] [address] [facility] [id number], [place] [address]- [address] Aug, [facility] [address] [facility] [id number], [place] [address]- [address] Aug, [facility] [address] [facility] [id number], [place] [address] 25[address] Jul, [facility] [address] [facility] [id number], [place] [address] 25[address] Jun, IMMUNIZATIONS No Known Immunizations SOCIAL HISTORY Never Assessed REASON FOR VISIT Recent fall, pt. states fell in middle of night last wednesday or wednesday. states she fell on stool by tub. , hit both sides of head, her arm, and her jaw with pain that radiates from chin to around left side of head, pt. states helped her back to bed, but never went to hospital ---MITRA Mancuso PLAN OF CARE Activity Details Follow Up prn Reason: VITAL SIGNS Height 67.7 in 2017-05-28 Weight 190.4 lbs 2017-05-28 Temperature 98.6 degrees Fahrenheit 2017-05-28 Heart Rate 84 bpm 2017-05-28 Respiratory Rate 20 2017-05-28 BMI 29.20 kg/m2 2017-05-28 Blood pressure systolic 133 mmHg 2017-05-28 Blood pressure diastolic 84 mmHg 2017-05-28 MEDICATIONS Medication Instructions Dosage Frequency Start Date End Date Duration Status Invokana 100 mg Orally Once a day 1 tablet 24h May, Nov, 90 days Active Atorvastatin Calcium 40 mg Orally Once a day 1 tablet 24h 90 days Active Levemir 100 UNIT/ML Subcutaneous 2 times a day inject 65U in am and 75U at HS 12h Dec, 30 days Active Lisinopril 5 mg Orally Once a day 1 tablet 24h May, 90 days Active Aspirin 81 MG Orally every 2 days 1 tablet Active Victoza 18MG/3ML Subcutaneous Once a day 1.8mg 24h 30 Active Multivitamin Adult - Active Trutest Blood Glucose Test Strip Active Insulin Syringe-Needle U-100 28G X 1/2 subcutaneously Once a day as directed 24h Dec, 90 days Active Vitamin B-12 100 MCG Orally Once a day 1 tablet 24h Active Albuterol Sulfate 90 mcg/actuation Inhalation every 4- 6 hrs prn cough, shortness of breath or wheezing 2 puffs Dec, Active Januvia 100 mg Orally Once a day 1 tablet 24h May, 90 days Active Cetirizine HCl 10MG Orally Once a day TAKE ONE TABLET BY MOUTH ONCE DAILY 24h May, 90 days Active Gabapentin 400MG Orally at bedtime 1 tablet 90 days Active Pen [place] 31G X 8 MM subcutaneously 2 times a day as directed 12h Dec Active Fluticasone Propionate 50 MCG/ACT Nasally Once a day as needed 1 spray in each nostril 12 months Active Cymbalta 60 mg Orally Once a day 1 capsule 24h 30 Jul, 2015 90 days Active Trutest Blood Glucose Meter Active RESULTS Name Result Date Reference Range CT Scan : Head/Brain w/o Contrast 2017-05-28 Xray : Skull 2017-05-28 CT Scan : Spine, Cervical w/o Contrast 2017-05-28 PROCEDURES No Known procedures INSTRUCTIONS MEDICATIONS ADMINISTERED [...] 08/2016 Hospitalization History chest pain ED visit [facility], pt scheduled for heart cath on May Hospitalization History [place] 2012 Hospitalization History Chest pain-[facility] 12/22/16
--- OUTSIDE RECORDS SUMMARY | 2018-04-21 21:57 | XMS REPORT ---
Author Author ADARSH OSWALDO Organization [facility] Address [address] [place] [address] Care Team Providers Care Apparel Embroidery Digitizer Name Role Phone ALTAMIRANOOSWALDO Antonio Unavailable PROBLEMS Type Condition ICD9-CM Code KGV03-IY Code Onset Dates Condition Status SNOMED Code Problem Polyneuropathy associated with underlying disease G63 Active 929258914 Problem Lumbago with sciatica, left side M54.42 Active 324490114 Problem Syncope, unspecified syncope type R55 Active 756697828 Problem Abnormal mammogram R92.8 Active 628419163 Problem Type 2 diabetes mellitus with diabetic polyneuropathy E11.42 Active 78262229 Problem Other seasonal allergic rhinitis J30.2 Active 136608879 Problem Lumbago with sciatica, right side M54.41 Active 457558581 Problem [facility] 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 Active 574015106 Problem Other chronic pain G89.29 Active 12025030 Problem Generalized anxiety disorder F41.1 Active 31487878 Problem Low serum HDL R74.8 Active 509510755 Problem Episodic mood disorder F39 Active 42992298 Problem Sleep disturbance G47.9 Active 78924049 Problem Dyslipidemia E78.5 Active 762883384 Problem Serum creatinine raised R79.89 Active 345184585 Problem Depression, unspecified depression type F32.9 Active 56497956 ALLERGIES No Information SOCIAL HISTORY Never Assessed PLAN OF CARE VITAL SIGNS MEDICATIONS Unknown Medications RESULTS Name Result Date Reference Range Mammogram, Bilateral Screening 2017-02-10 PROCEDURES No Known procedures IMMUNIZATIONS No Known [...] 08/2016 Hospitalization History chest pain ED visit [facility], pt scheduled for heart cath on May Hospitalization History [facility] 2012 Hospitalization History Chest pain-[facility] 12/22/16
--- OUTSIDE RECORDS SUMMARY | 2018-04-21 22:05 | XMS REPORT | Continuity of Care Document ---
Author Author Formerly [facility] Address Unknown Phone Unavailable Allergies Active Description Code Type Severity Reaction Onset Reported/Identified Relationship to Patient Clinical Status Yes codeine Drug Allergy N/A N/A 11/28/2008 Yes Dental Metal OA N/A N/A 11/28/2008 Yes codeine Drug Allergy 11/28/2008 Yes Dental Metal OA 11/28/2008 Yes codeine [id number] Drug Allergy Unknown HEART PALPATATI 02/04/2015 Medications There is no data. Problems Date Dx Coded Attending Type Code Diagnosis Diagnosed By 06/15/2008 SHAMIKA GOLDBERG MD 250.00 DIABETES MELLITUS TYPE II - UNCOMPLICATED, CONTROLLED 06/15/2008 SHAMIKA GOLDBERG MD 272.4 DYSLIPIDEMIA 06/15/2008 SHAMIKA GOLDBERG MD 250.00 DIABETES MELLITUS TYPE II - UNCOMPLICATED, CONTROLLED 06/15/2008 SHAMIKA GOLDBERG MD 272.4 DYSLIPIDEMIA 06/15/2008 250.00 DIABETES MELLITUS TYPE II - UNCOMPLICATED, CONTROLLED 06/15/2008 272.4 DYSLIPIDEMIA 06/15/2008 VALERIE PATINO DO 250.00 DIABETES MELLITUS TYPE II - UNCOMPLICATED, CONTROLLED 06/15/2008 VALERIE APTINO DO 272.4 DYSLIPIDEMIA 06/15/2008 250.00 DIABETES MELLITUS TYPE II - UNCOMPLICATED, CONTROLLED 06/15/2008 272.4 DYSLIPIDEMIA 06/15/2008 250.00 DIABETES MELLITUS TYPE II - UNCOMPLICATED, CONTROLLED 06/15/2008 272.4 DYSLIPIDEMIA 06/15/2008 AMADEO DONIS DO 250.00 DIABETES MELLITUS TYPE II - UNCOMPLICATED, CONTROLLED 06/15/2008 AMADEO DONIS DO 272.4 DYSLIPIDEMIA 06/15/2008 SHAMIKA GOLDBERG MD 250.00 DIABETES MELLITUS TYPE II - UNCOMPLICATED, CONTROLLED 06/15/2008 SHAMIKA GOLDBERG MD 272.4 DYSLIPIDEMIA 06/15/2008 SHAMIKA GOLDBERG MD 250.00 DIABETES MELLITUS TYPE II - UNCOMPLICATED, CONTROLLED 06/15/2008 SHAMIKA GOLDBERG MD 272.4 DYSLIPIDEMIA 06/15/2008 PATINO DO, VALERIE K 250.00 DIABETES MELLITUS TYPE II - UNCOMPLICATED, CONTROLLED 06/15/2008 PATINO DO, VALERIE K 272.4 DYSLIPIDEMIA 06/15/2008 250.00 DIABETES MELLITUS TYPE II - UNCOMPLICATED, CONTROLLED 06/15/2008 272.4 DYSLIPIDEMIA 06/15/2008 250.00 DIABETES MELLITUS TYPE II - UNCOMPLICATED, CONTROLLED 06/15/2008 272.4 DYSLIPIDEMIA 06/15/2008 250.00 DIABETES MELLITUS TYPE II - UNCOMPLICATED, CONTROLLED 06/15/2008 272.4 DYSLIPIDEMIA 06/15/2008 250.00 DIABETES MELLITUS TYPE II - UNCOMPLICATED, CONTROLLED 06/15/2008 272.4 DYSLIPIDEMIA 06/15/2008 250.00 DIABETES MELLITUS TYPE II - UNCOMPLICATED, CONTROLLED 06/15/2008 272.4 DYSLIPIDEMIA 06/15/2008 250.00 DIABETES MELLITUS TYPE II - UNCOMPLICATED, CONTROLLED 06/15/2008 272.4 DYSLIPIDEMIA 06/15/2008 250.00 DIABETES MELLITUS TYPE II - UNCOMPLICATED, CONTROLLED 06/15/2008 272.4 DYSLIPIDEMIA 06/15/2008 PATINO DO, VALERIE K 250.00 DIABETES MELLITUS TYPE II - UNCOMPLICATED, CONTROLLED 06/15/2008 PATINO DO, VALERIE K 272.4 DYSLIPIDEMIA 06/15/2008 PATINO DO, VALERIE K 250.00 DIABETES MELLITUS TYPE II - UNCOMPLICATED, CONTROLLED 06/15/2008 PATINO DO, VALERIE K 272.4 DYSLIPIDEMIA 06/15/2008 PATINO DO, VALERIE K 250.00 DIABETES MELLITUS TYPE II - UNCOMPLICATED, CONTROLLED 06/15/2008 PATINO DO, VALERIE K 272.4 DYSLIPIDEMIA 06/15/2008 PATINO DO, VALERIE K 250.00 DIABETES MELLITUS TYPE II - UNCOMPLICATED, CONTROLLED 06/15/2008 PATINO DO, VALERIE K 272.4 DYSLIPIDEMIA 06/15/2008 PATINO DO, VALERIE K 250.00 DIABETES MELLITUS TYPE II - UNCOMPLICATED, CONTROLLED 06/15/2008 PATINO DO, VALERIE K 272.4 DYSLIPIDEMIA 06/15/2008 PATINO DO, VALERIE K 250.00 DIABETES MELLITUS TYPE II - UNCOMPLICATED, CONTROLLED 06/15/2008 PATINO DO, VALERIE K 272.4 DYSLIPIDEMIA 06/15/2008 PATINO DO, VALERIE K 250.00 DIABETES MELLITUS TYPE II - UNCOMPLICATED, CONTROLLED 06/15/2008 PATINO DO, VALERIE K 272.4 DYSLIPIDEMIA 06/15/2008 PATINO DO, VALERIE K 250.00 DIABETES MELLITUS TYPE II - UNCOMPLICATED, CONTROLLED 06/15/2008 PATINO DO, VALERIE K 272.4 DYSLIPIDEMIA 06/15/2008 PATINO DO, VALERIE K 250.00 DIABETES MELLITUS TYPE II - UNCOMPLICATED, CONTROLLED 06/15/2008 PATINO DO, VALERIE K 272.4 DYSLIPIDEMIA 06/15/2008 NAY FELICIANO APRN 250.00 DIABETES MELLITUS TYPE II - UNCOMPLICATED, CONTROLLED 06/15/2008 NAY FELICIANO APRN 272.4 DYSLIPIDEMIA 06/15/2008 PATINO DO, VALERIE K 250.00 DIABETES MELLITUS TYPE II - UNCOMPLICATED, CONTROLLED 06/15/2008 PATINO DO, VALERIE K 272.4 DYSLIPIDEMIA 06/15/2008 PATINO DO, VALERIE K 250.00 DIABETES MELLITUS TYPE II - UNCOMPLICATED, CONTROLLED 06/15/2008 PATINO DO, VALERIE K 272.4 DYSLIPIDEMIA 06/15/2008 IAN LOIAZA SHAHEEN E 250.00 DIABETES MELLITUS TYPE II - UNCOMPLICATED, CONTROLLED 06/15/2008 IAN MORENON, SHAHEEN E 272.4 DYSLIPIDEMIA 06/15/2008 NADIA DDS, TILA M 250.00 DIABETES MELLITUS TYPE II - UNCOMPLICATED, CONTROLLED 06/15/2008 NADIA DDS, TILA M 272.4 DYSLIPIDEMIA 06/15/2008 PATINO DO, VALERIE K 250.00 DIABETES MELLITUS TYPE II - UNCOMPLICATED, CONTROLLED 06/15/2008 PATINO DO, VALERIE K 272.4 DYSLIPIDEMIA 06/15/2008 PATINO DO, VALERIE K 250.00 DIABETES MELLITUS TYPE II - UNCOMPLICATED, CONTROLLED 06/15/2008 PATINO DO, VALERIE K 272.4 DYSLIPIDEMIA 06/15/2008 IAN LOAIZA, SHAHEEN E 250.00 DIABETES MELLITUS TYPE II - UNCOMPLICATED, CONTROLLED 06/15/2008 IAN LOAIZA SHAHEEN E 272.4 DYSLIPIDEMIA 06/15/2008 SHYAM DPM, ROXY 250.00 DIABETES MELLITUS TYPE II - UNCOMPLICATED, CONTROLLED 06/15/2008 SHYAM DPM, ROXY 272.4 DYSLIPIDEMIA 06/15/2008 IAN MORENON, SHAHEEN E 250.00 DIABETES MELLITUS TYPE II - UNCOMPLICATED, CONTROLLED 06/15/2008 IAN LOAIZA, SHAHEEN E 272.4 DYSLIPIDEMIA 06/15/2008 PATINO DO, VALERIE K 250.00 DIABETES MELLITUS TYPE II - UNCOMPLICATED, CONTROLLED 06/15/2008 PATINO DO, VALERIE K 272.4 DYSLIPIDEMIA 06/15/2008 IAN LOAIZA, SHAHEEN E 250.00 DIABETES MELLITUS TYPE II - UNCOMPLICATED, CONTROLLED 06/15/2008 ZAKIYAANNA MINING SPECULATOR, SHAHEEN E 272.4 DYSLIPIDEMIA 06/15/2008 ZAKIYAFORMERLY [facility], [facility] MINING SPECULATOR, SHAHEEN E 250.00 DIABETES MELLITUS TYPE II - UNCOMPLICATED, CONTROLLED 06/15/2008 HELFORMERLY [facility], [facility] MINING SPECULATOR, SHAHEEN E 272.4 DYSLIPIDEMIA 06/15/2008 PATINO DO, VALERIE K 250.00 DIABETES MELLITUS TYPE II - UNCOMPLICATED, CONTROLLED 06/15/2008 PATINO DO, VALERIE K 272.4 DYSLIPIDEMIA 06/15/2008 PATINO DO, VALERIE K 250.00 DIABETES MELLITUS TYPE II - UNCOMPLICATED, CONTROLLED 06/15/2008 PATINO DO, VALERIE K 272.4 DYSLIPIDEMIA 06/15/2008 PATINO DO, VALERIE K 250.00 DIABETES MELLITUS TYPE II - UNCOMPLICATED, CONTROLLED 06/15/2008 PATINO DO, VALERIE K 272.4 DYSLIPIDEMIA 06/15/2008 PATINO DO, VALERIE K 250.00 DIABETES MELLITUS TYPE II - UNCOMPLICATED, CONTROLLED 06/15/2008 PATINO DO, VALERIE K 272.4 DYSLIPIDEMIA 06/19/2008 YUSUF MC, SHAMIKA 250.02 DIABETES MELLITUS TYPE 2 - UNCOMPLICATED, UNCONTROLLED 06/19/2008 YUSUF MC, SHAMIKA 382.00 OTITIS MEDIA ACUTE WITHOUT SPONTANEOUS RUPTURE EARDRUM 06/19/2008 SHAMIKA GOLDBERG MD 46Brayan PHARYNGITIS ACUTE 06/19/2008 YUSUF MC, SHAMIKA 250.02 DIABETES MELLITUS TYPE 2 - UNCOMPLICATED, UNCONTROLLED 06/19/2008 SHAMIKA GOLDBERG MD 382.00 OTITIS MEDIA ACUTE WITHOUT SPONTANEOUS RUPTURE EARDRUM 06/19/2008 SHAMIKA GOLDBERG MD 462 PHARYNGITIS ACUTE 06/19/2008 250.02 DIABETES MELLITUS TYPE 2 - UNCOMPLICATED, UNCONTROLLED 06/19/2008 382.00 OTITIS MEDIA ACUTE WITHOUT SPONTANEOUS RUPTURE EARDRUM 06/19/2008 462 PHARYNGITIS ACUTE 06/19/2008 GADIEL PATINO DOA K 250.02 DIABETES MELLITUS TYPE 2 - UNCOMPLICATED, UNCONTROLLED 06/19/2008 GADIEL PATINO DOA K 382.00 OTITIS MEDIA ACUTE WITHOUT SPONTANEOUS RUPTURE EARDRUM 06/19/2008 GADIEL PATINO DOA K 462 PHARYNGITIS ACUTE 06/19/2008 250.02 DIABETES MELLITUS TYPE 2 - UNCOMPLICATED, UNCONTROLLED 06/19/2008 382.00 OTITIS MEDIA ACUTE WITHOUT SPONTANEOUS RUPTURE EARDRUM 06/19/2008 462 PHARYNGITIS ACUTE 06/19/2008 250.02 DIABETES MELLITUS TYPE 2 - UNCOMPLICATED, UNCONTROLLED 06/19/2008 382.00 OTITIS MEDIA ACUTE WITHOUT SPONTANEOUS RUPTURE EARDRUM 06/19/2008 462 PHARYNGITIS ACUTE 06/19/2008 AMADEO DONIS DO 250.02 DIABETES MELLITUS TYPE 2 - UNCOMPLICATED, UNCONTROLLED 06/19/2008 AMADEO DONIS DO 382.00 OTITIS MEDIA ACUTE WITHOUT SPONTANEOUS RUPTURE EARDRUM 06/19/2008 AMADEO DONIS DO 462 PHARYNGITIS ACUTE 06/19/2008 SHAMIKA GOLDBERG MD 250.02 DIABETES MELLITUS TYPE 2 - UNCOMPLICATED, UNCONTROLLED 06/19/2008 SHAMIKA GOLDBERG MD 382.00 OTITIS MEDIA ACUTE WITHOUT SPONTANEOUS RUPTURE EARDRUM 06/19/2008 SHAMIKA GOLDBERG MD 462 PHARYNGITIS ACUTE 06/19/2008 SHAMIKA GOLDBERG MD 250.02 DIABETES MELLITUS TYPE 2 - UNCOMPLICATED, UNCONTROLLED 06/19/2008 SHAMIKA GOLDBERG MD 382.00 OTITIS MEDIA ACUTE WITHOUT SPONTANEOUS RUPTURE EARDRUM 06/19/2008 SHAMIKA GOLDBERG MD 462 PHARYNGITIS ACUTE 06/19/2008 VALERIE PATINO DO 250.02 DIABETES MELLITUS TYPE 2 - UNCOMPLICATED, UNCONTROLLED 06/19/2008 VALERIE PATINO DO 382.00 OTITIS MEDIA ACUTE WITHOUT SPONTANEOUS RUPTURE EARDRUM 06/19/2008 VALERIE PATINO DO 462 PHARYNGITIS ACUTE 06/19/2008 250.02 DIABETES MELLITUS TYPE 2 - UNCOMPLICATED, UNCONTROLLED 06/19/2008 382.00 OTITIS MEDIA ACUTE WITHOUT SPONTANEOUS RUPTURE EARDRUM 06/19/2008 462 PHARYNGITIS ACUTE 06/19/2008 250.02 DIABETES MELLITUS TYPE 2 - UNCOMPLICATED, UNCONTROLLED 06/19/2008 382.00 OTITIS MEDIA ACUTE WITHOUT SPONTANEOUS RUPTURE EARDRUM 06/19/2008 462 PHARYNGITIS ACUTE 06/19/2008 250.02 DIABETES MELLITUS TYPE 2 - UNCOMPLICATED, UNCONTROLLED 06/19/2008 382.00 OTITIS MEDIA ACUTE WITHOUT SPONTANEOUS RUPTURE EARDRUM 06/19/2008 462 PHARYNGITIS ACUTE 06/19/2008 250.02 DIABETES MELLITUS TYPE 2 - UNCOMPLICATED, UNCONTROLLED 06/19/2008 382.00 OTITIS MEDIA ACUTE WITHOUT SPONTANEOUS RUPTURE EARDRUM 06/19/2008 462 PHARYNGITIS ACUTE 06/19/2008 250.02 DIABETES MELLITUS TYPE 2 - UNCOMPLICATED, UNCONTROLLED 06/19/2008 382.00 OTITIS MEDIA ACUTE WITHOUT SPONTANEOUS RUPTURE EARDRUM 06/19/2008 462 PHARYNGITIS ACUTE 06/19/2008 250.02 DIABETES MELLITUS TYPE 2 - UNCOMPLICATED, UNCONTROLLED 06/19/2008 382.00 OTITIS MEDIA ACUTE WITHOUT SPONTANEOUS RUPTURE EARDRUM 06/19/2008 462 PHARYNGITIS ACUTE 06/19/2008 250.02 DIABETES MELLITUS TYPE 2 - UNCOMPLICATED, UNCONTROLLED 06/19/2008 382.00 OTITIS MEDIA ACUTE WITHOUT SPONTANEOUS RUPTURE EARDRUM 06/19/2008 462 PHARYNGITIS ACUTE 06/19/2008 PATINO DO, VALERIE K 250.02 DIABETES MELLITUS TYPE 2 - UNCOMPLICATED, UNCONTROLLED 06/19/2008 PATINO DO, VALERIE K 382.00 OTITIS MEDIA ACUTE WITHOUT SPONTANEOUS RUPTURE EARDRUM 06/19/2008 PATINO DO, VALERIE K 462 PHARYNGITIS ACUTE 06/19/2008 PATINO DO, VALERIE K 250.02 DIABETES MELLITUS TYPE 2 - UNCOMPLICATED, UNCONTROLLED 06/19/2008 PATINO DO, VALERIE K 382.00 OTITIS MEDIA ACUTE WITHOUT SPONTANEOUS RUPTURE EARDRUM 06/19/2008 PATINO DO, VALERIE K 462 PHARYNGITIS ACUTE 06/19/2008 PATINO DO, VALERIE K 250.02 DIABETES MELLITUS TYPE 2 - UNCOMPLICATED, UNCONTROLLED 06/19/2008 PATINO DO, VALERIE K 382.00 OTITIS MEDIA ACUTE WITHOUT SPONTANEOUS RUPTURE EARDRUM 06/19/2008 PATINO DO, VALERIE K 462 PHARYNGITIS ACUTE 06/19/2008 PATINO DO, VALERIE K 250.02 DIABETES MELLITUS TYPE 2 - UNCOMPLICATED, UNCONTROLLED 06/19/2008 PATINO DO, VALERIE K 382.00 OTITIS MEDIA ACUTE WITHOUT SPONTANEOUS RUPTURE EARDRUM 06/19/2008 PATINO DO, VALERIE K 462 PHARYNGITIS ACUTE 06/19/2008 PATINO DO, VALERIE K 250.02 DIABETES MELLITUS TYPE 2 - UNCOMPLICATED, UNCONTROLLED 06/19/2008 PATINO DO, VALERIE K 382.00 OTITIS MEDIA ACUTE WITHOUT SPONTANEOUS RUPTURE EARDRUM 06/19/2008 PATINO DO, VALERIE K 462 PHARYNGITIS ACUTE 06/19/2008 PATINO DO, VALERIE K 250.02 DIABETES MELLITUS TYPE 2 - UNCOMPLICATED, UNCONTROLLED 06/19/2008 PATINO DO, VALERIE K 382.00 OTITIS MEDIA ACUTE WITHOUT SPONTANEOUS RUPTURE EARDRUM 06/19/2008 PATINO DO, VALERIE K 462 PHARYNGITIS ACUTE 06/19/2008 PATINO DO, VALERIE K 250.02 DIABETES MELLITUS TYPE 2 - UNCOMPLICATED, UNCONTROLLED 06/19/2008 PATINO DO, VALERIE K 382.00 OTITIS MEDIA ACUTE WITHOUT SPONTANEOUS RUPTURE EARDRUM 06/19/2008 SUKUMAR OCONNOR, VALERIE K 462 PHARYNGITIS ACUTE 06/19/2008 SUKUMAR OCONNOR, VALERIE K 250.02 DIABETES MELLITUS TYPE 2 - UNCOMPLICATED, UNCONTROLLED 06/19/2008 SUKUMAR OCONNOR VALERIE K 382.00 OTITIS MEDIA ACUTE WITHOUT SPONTANEOUS RUPTURE EARDRUM 06/19/2008 SUKUMAR OCONNOR VALERIE K 462 PHARYNGITIS ACUTE 06/19/2008 SUKUMAR OCONNOR VALERIE K 250.02 DIABETES MELLITUS TYPE 2 - UNCOMPLICATED, UNCONTROLLED 06/19/2008 SUKUMAR OCONNOR VALERIE K 382.00 OTITIS MEDIA ACUTE WITHOUT SPONTANEOUS RUPTURE EARDRUM 06/19/2008 SUKUMAR OCONNOR VALERIE K 462 PHARYNGITIS ACUTE 06/19/2008 NAY FELICIANO APRN 250.02 DIABETES MELLITUS TYPE 2 - UNCOMPLICATED, UNCONTROLLED 06/19/2008 NAY FELICIANO APRN 382.00 OTITIS MEDIA ACUTE WITHOUT SPONTANEOUS RUPTURE EARDRUM 06/19/2008 NAY FELICIANO APRN 46Brayan PHARYNGITIS ACUTE 06/19/2008 SUKUMAR OCONNOR VALERIE K 250.02 DIABETES MELLITUS TYPE 2 - UNCOMPLICATED, UNCONTROLLED 06/19/2008 SUKUMAR OCONNOR VALERIE K 382.00 OTITIS MEDIA ACUTE WITHOUT SPONTANEOUS RUPTURE EARDRUM 06/19/2008 SUKUMAR OCONNOR VALERIE K 462 PHARYNGITIS ACUTE 06/19/2008 SUKUMAR OCONNOR VALERIE K 250.02 DIABETES MELLITUS TYPE 2 - UNCOMPLICATED, UNCONTROLLED 06/19/2008 SUKUMAR OCONNOR VALERIE K 382.00 OTITIS MEDIA ACUTE WITHOUT SPONTANEOUS RUPTURE EARDRUM 06/19/2008 SUKUMAR OCONNORGADIELA K 462 PHARYNGITIS ACUTE 06/19/2008 SHAHEEN SOSA APRN E 250.02 DIABETES MELLITUS TYPE 2 - UNCOMPLICATED, UNCONTROLLED 06/19/2008 SHAHEEN SOSA APRN E 382.00 OTITIS MEDIA ACUTE WITHOUT SPONTANEOUS RUPTURE EARDRUM 06/19/2008 SHAHEEN SOSA APRN E 462 PHARYNGITIS ACUTE 06/19/2008 NADIA ASAFS TILA M 250.02 DIABETES MELLITUS TYPE 2 - UNCOMPLICATED, UNCONTROLLED 06/19/2008 NADIA DDS, TILA M 382.00 OTITIS MEDIA ACUTE WITHOUT SPONTANEOUS RUPTURE EARDRUM 06/19/2008 NADIA DDS, TILA M 462 PHARYNGITIS ACUTE 06/19/2008 PATINO DO, VALERIE K 250.02 DIABETES MELLITUS TYPE 2 - UNCOMPLICATED, UNCONTROLLED 06/19/2008 PATINO DO, VALERIE K 382.00 OTITIS MEDIA ACUTE WITHOUT SPONTANEOUS RUPTURE EARDRUM 06/19/2008 PATINO DO, VALERIE K 462 PHARYNGITIS ACUTE 06/19/2008 PATINO DO, VALERIE K 250.02 DIABETES MELLITUS TYPE 2 - UNCOMPLICATED, UNCONTROLLED 06/19/2008 PATINO DO, VALERIE K 382.00 OTITIS MEDIA ACUTE WITHOUT SPONTANEOUS RUPTURE EARDRUM 06/19/2008 PATINO DO, VALERIE K 462 PHARYNGITIS ACUTE 06/19/2008 HELLWIG MINING SPECULATOR SHAHEEN E 250.02 DIABETES MELLITUS TYPE 2 - UNCOMPLICATED, UNCONTROLLED 06/19/2008 HELLWIG MINING SPECULATOR, SHAHEEN E 382.00 OTITIS MEDIA ACUTE WITHOUT SPONTANEOUS RUPTURE EARDRUM 06/19/2008 HELLWIG MINING SPECULATOR SHAHEEN E 462 PHARYNGITIS ACUTE 06/19/2008 SHYAM DPM, ROXY 250.02 DIABETES MELLITUS TYPE 2 - UNCOMPLICATED, UNCONTROLLED 06/19/2008 SHYAM DPM, ROXY 382.00 OTITIS MEDIA ACUTE WITHOUT SPONTANEOUS RUPTURE EARDRUM 06/19/2008 SHYAM DPM, ROXY 462 PHARYNGITIS ACUTE 06/19/2008 HELLWIG MINING SPECULATOR SHAHEEN E 250.02 DIABETES MELLITUS TYPE 2 - UNCOMPLICATED, UNCONTROLLED 06/19/2008 HELLWIG MINING SPECULATOR, SHAHEEN E 382.00 OTITIS MEDIA ACUTE WITHOUT SPONTANEOUS RUPTURE EARDRUM 06/19/2008 HELLWIG MINING SPECULATOR SHAHEEN E 462 PHARYNGITIS ACUTE 06/19/2008 PATINO DO, VALERIE K 250.02 DIABETES MELLITUS TYPE 2 - UNCOMPLICATED, UNCONTROLLED 06/19/2008 PATINO DO, VALERIE K 382.00 OTITIS MEDIA ACUTE WITHOUT SPONTANEOUS RUPTURE EARDRUM 06/19/2008 PATINO DO, VALERIE K 462 PHARYNGITIS ACUTE 06/19/2008 HELLWIG MINING SPECULATOR SHAHEEN E 250.02 DIABETES MELLITUS TYPE 2 - UNCOMPLICATED, UNCONTROLLED 06/19/2008 HELLWIG MINING SPECULATOR, SHAHEEN E 382.00 OTITIS MEDIA ACUTE WITHOUT SPONTANEOUS RUPTURE EARDRUM 06/19/2008 HELLWIG MINING SPECULATOR SHAHEEN E 462 PHARYNGITIS ACUTE 06/19/2008 HELLWIG MINING SPECULATOR SHAHEEN E 250.02 DIABETES MELLITUS TYPE 2 - UNCOMPLICATED, UNCONTROLLED 06/19/2008 ZAKIYAANNA MINING SPECULATOR, SHAHEEN E 382.00 OTITIS MEDIA ACUTE WITHOUT SPONTANEOUS RUPTURE EARDRUM 06/19/2008 ZAKIYAFIONA MINING SPECULATOR, SHAHEEN E 462 PHARYNGITIS ACUTE 06/19/2008 SUKUMAR OCONNOR VALERIE K 250.02 DIABETES MELLITUS TYPE 2 - UNCOMPLICATED, UNCONTROLLED 06/19/2008 SUKUMAR OCONNOR VALERIE K 382.00 OTITIS MEDIA ACUTE WITHOUT SPONTANEOUS RUPTURE EARDRUM 06/19/2008 SUKUMAR OCONNOR VALERIE K 462 PHARYNGITIS ACUTE 06/19/2008 SUKUMAR OCONNOR VALERIE K 250.02 DIABETES MELLITUS TYPE 2 - UNCOMPLICATED, UNCONTROLLED 06/19/2008 SUKUMAR OCONNOR VALERIE K 382.00 OTITIS MEDIA ACUTE WITHOUT SPONTANEOUS RUPTURE EARDRUM 06/19/2008 SUKUMAR OCONNOR VALERIE K 462 PHARYNGITIS ACUTE 06/19/2008 SUKUMAR OCONNOR VALERIE K 250.02 DIABETES MELLITUS TYPE 2 - UNCOMPLICATED, UNCONTROLLED 06/19/2008 SUKUMAR OCONNOR VALERIE K 382.00 OTITIS MEDIA ACUTE WITHOUT SPONTANEOUS RUPTURE EARDRUM 06/19/2008 SUKUMAR OCONNOR VALERIE K 462 PHARYNGITIS ACUTE 06/19/2008 PATINO DO VALERIE K 250.02 DIABETES MELLITUS TYPE 2 - UNCOMPLICATED, UNCONTROLLED 06/19/2008 SUKUMAR OCONNOR VALERIE K 382.00 OTITIS MEDIA ACUTE WITHOUT SPONTANEOUS RUPTURE EARDRUM 06/19/2008 PATINO DO VALERIE K 462 PHARYNGITIS ACUTE 07/04/2008 SHAMIKA GOLDBERG MD 300.00 anxiety 07/04/2008 SHAMIKA GOLDBERG MD 724.4 BACK PAIN WITH RADIATION 07/04/2008 SHAMIKA GOLDBERG MD 300.00 anxiety 07/04/2008 SHAMIKA GOLDBERG MD 724.4 BACK PAIN WITH RADIATION 07/04/2008 300.00 anxiety 07/04/2008 724.4 BACK PAIN WITH RADIATION 07/04/2008 VALERIE PATINO DO K 300.00 anxiety 07/04/2008 VALERIE PATINO DO 724.4 BACK PAIN WITH RADIATION 07/04/2008 300.00 anxiety 07/04/2008 724.4 BACK PAIN WITH RADIATION 07/04/2008 300.00 anxiety 07/04/2008 724.4 BACK PAIN WITH RADIATION 07/04/2008 AMADEO DONIS DO 300.00 anxiety 07/04/2008 AMADEO DONIS DO 724.4 BACK PAIN WITH RADIATION 07/04/2008 SHAMIKA GOLDBERG MD 300.00 anxiety 07/04/2008 SHAMIKA GOLDBERG MD 724.4 BACK PAIN WITH RADIATION 07/04/2008 SHAMIKA GOLDBERG MD 300.00 anxiety 07/04/2008 SHAMIKA GOLDBERG MD 724.4 BACK PAIN WITH RADIATION 07/04/2008 PATINO DO, VALERIE K 300.00 anxiety 07/04/2008 PATINO DO, VALERIE K 724.4 BACK PAIN WITH RADIATION 07/04/2008 300.00 anxiety 07/04/2008 724.4 BACK PAIN WITH RADIATION 07/04/2008 300.00 anxiety 07/04/2008 724.4 BACK PAIN WITH RADIATION 07/04/2008 300.00 anxiety 07/04/2008 724.4 BACK PAIN WITH RADIATION 07/04/2008 300.00 anxiety 07/04/2008 724.4 BACK PAIN WITH RADIATION 07/04/2008 300.00 anxiety 07/04/2008 724.4 BACK PAIN WITH RADIATION 07/04/2008 300.00 anxiety 07/04/2008 724.4 BACK PAIN WITH RADIATION 07/04/2008 300.00 anxiety 07/04/2008 724.4 BACK PAIN WITH RADIATION 07/04/2008 PATINO DO, VALERIE K 300.00 anxiety 07/04/2008 PATINO DO, VALERIE K 724.4 BACK PAIN WITH RADIATION 07/04/2008 PATINO DO, VALERIE K 300.00 anxiety 07/04/2008 PATINO DO, VALERIE K 724.4 BACK PAIN WITH RADIATION 07/04/2008 PATINO DO, VALERIE K 300.00 anxiety 07/04/2008 PATINO DO, VALERIE K 724.4 BACK PAIN WITH RADIATION 07/04/2008 PATINO DO, VALERIE K 300.00 anxiety 07/04/2008 PATINO DO, VALERIE K 724.4 BACK PAIN WITH RADIATION 07/04/2008 PATINO DO, VALERIE K 300.00 anxiety 07/04/2008 PATINO DO, VALERIE K 724.4 BACK PAIN WITH RADIATION 07/04/2008 PATINO DO, VALERIE K 300.00 anxiety 07/04/2008 PATINO DO, VALERIE K 724.4 BACK PAIN WITH RADIATION 07/04/2008 PATINO DO, VALERIE K 300.00 anxiety 07/04/2008 PATINO DO, VALERIE K 724.4 BACK PAIN WITH RADIATION 07/04/2008 PATINO DO, VALERIE K 300.00 anxiety 07/04/2008 PATINO DO, VALERIE K 724.4 BACK PAIN WITH RADIATION 07/04/2008 PATINO DO, VALERIE K 300.00 anxiety 07/04/2008 PATINO DO, VALERIE K 724.4 BACK PAIN WITH RADIATION 07/04/2008 FELICIANONAY Webster APRN R 300.00 anxiety 07/04/2008 FELICIANONAY ARAGON APRN 724.4 BACK PAIN WITH RADIATION 07/04/2008 PATINO DO, VALERIE K 300.00 anxiety 07/04/2008 PATINO DO, VALERIE K 724.4 BACK PAIN WITH RADIATION 07/04/2008 PATINO DO, VALERIE K 300.00 anxiety 07/04/2008 PATINO DO, VALERIE K 724.4 BACK PAIN WITH RADIATION 07/04/2008 SHAHEEN SOSA APRN E 300.00 anxiety 07/04/2008 SHAHEEN SOSA APRN E 724.4 BACK PAIN WITH RADIATION 07/04/2008 NADIA DDS TILA M 300.00 anxiety 07/04/2008 NADIA DDS TILA M 724.4 BACK PAIN WITH RADIATION 07/04/2008 PATINO DO, VALERIE K 300.00 anxiety 07/04/2008 PATINO DO, VALERIE K 724.4 BACK PAIN WITH RADIATION 07/04/2008 PATINO DO, VALERIE K 300.00 anxiety 07/04/2008 PATINO DO, VALERIE K 724.4 BACK PAIN WITH RADIATION 07/04/[facility] anxiety 07/04/2008 SHAHEEN SOSA APRN E 724.4 BACK PAIN WITH RADIATION 07/04/2008 SHYAM DPM, ROXY 300.00 anxiety 07/04/2008 SHYAM DPM, ROXY 724.4 BACK PAIN WITH RADIATION 07/04/2008 RIGO SOSA APRNE E 300.00 anxiety 07/04/2008 SHAHEEN SOSA APRN E 724.4 BACK PAIN WITH RADIATION 07/04/2008 PATINO DO, VALERIE K 300.00 anxiety 07/04/2008 PATINO DO, VALERIE K 724.4 BACK PAIN WITH RADIATION 07/04/2008 RIGO SOSA APRNE E 300.00 anxiety 07/04/2008 IAN MINING SPECULATOR, SHAHEEN E 724.4 BACK PAIN WITH RADIATION 07/04/2008 ZAKIYAFORMERLY [facility] JOSSE SHAHEEN E 300.00 anxiety 07/04/2008 ZAKIYAANNA MINING SPECULATORGADIELSHAHEEN E 724.4 BACK PAIN WITH RADIATION 07/04/2008 PATINO DO, VALERIE K 300.00 anxiety 07/04/2008 PATINO DO, VALERIE K 724.4 BACK PAIN WITH RADIATION 07/04/2008 PATINO DO, VALERIE K 300.00 anxiety 07/04/2008 PATINO DO, VALERIE K 724.4 BACK PAIN WITH RADIATION 07/04/2008 PATINO DO, VALERIE K 300.00 anxiety 07/04/2008 PATINO DO, VALEIRE K 724.4 BACK PAIN WITH RADIATION 07/04/2008 PATINO DO, VALERIE K 300.00 anxiety 07/04/2008 PATINO DO, VALERIE K 724.4 BACK PAIN WITH RADIATION 07/18/2008 SHAMIKA GOLDBERG MD 709.9 DERMATITIS OTHER SKIN DISORDERS 07/18/2008 SHAMIKA GOLDBERG MD 709.9 DERMATITIS OTHER SKIN DISORDERS 07/18/2008 709.9 DERMATITIS OTHER SKIN DISORDERS 07/18/2008 VALERIE PATINO DO K 709.9 DERMATITIS OTHER SKIN DISORDERS 07/18/2008 709.9 DERMATITIS OTHER SKIN DISORDERS 07/18/2008 709.9 DERMATITIS OTHER SKIN DISORDERS 07/18/2008 AMADEO DONIS DO 709.9 DERMATITIS OTHER SKIN DISORDERS 07/18/2008 SHAMIKA GOLDBERG MD 709.9 DERMATITIS OTHER SKIN DISORDERS 07/18/2008 SHAMIKA GOLDBERG MD 709.9 DERMATITIS OTHER SKIN DISORDERS 07/18/2008 VALERIE PATINO DO K 709.9 DERMATITIS OTHER SKIN DISORDERS 07/18/2008 709.9 DERMATITIS OTHER SKIN DISORDERS 07/18/2008 709.9 DERMATITIS OTHER SKIN DISORDERS 07/18/2008 709.9 DERMATITIS OTHER SKIN DISORDERS 07/18/2008 709.9 DERMATITIS OTHER SKIN DISORDERS 07/18/2008 709.9 DERMATITIS OTHER SKIN DISORDERS 07/18/2008 709.9 DERMATITIS OTHER SKIN DISORDERS 07/18/2008 709.9 DERMATITIS OTHER SKIN DISORDERS 07/18/2008 VALERIE PATINO DO K 709.9 DERMATITIS OTHER SKIN DISORDERS 07/18/2008 VALERIE PATINO DO K 709.9 DERMATITIS OTHER SKIN DISORDERS 07/18/2008 PATINO DO, VALERIE K 709.9 DERMATITIS OTHER SKIN DISORDERS 07/18/2008 PATINO DO, VALERIE K 709.9 DERMATITIS OTHER SKIN DISORDERS 07/18/2008 PATINO DO, VALERIE K 709.9 DERMATITIS OTHER SKIN DISORDERS 07/18/2008 PATINO DO, VALERIE K 709.9 DERMATITIS OTHER SKIN DISORDERS 07/18/2008 PATINO DO, VALERIE K 709.9 DERMATITIS OTHER SKIN DISORDERS 07/18/2008 PATINO DO, VALERIE K 709.9 DERMATITIS OTHER SKIN DISORDERS 07/18/2008 PATINO DO, VALERIE K 709.9 DERMATITIS OTHER SKIN DISORDERS 07/18/2008 NAY FELICIANO APRN 709.9 DERMATITIS OTHER SKIN DISORDERS 07/18/2008 PATINO DO, VALERIE K 709.9 DERMATITIS OTHER SKIN DISORDERS 07/18/2008 PATINO DO, VALERIE K 709.9 DERMATITIS OTHER SKIN DISORDERS 07/18/2008 HELLANNA LOAIZA, SHAHEEN E 709.9 DERMATITIS OTHER SKIN DISORDERS 07/18/2008 TILA ZUNIGA DDS 709.9 DERMATITIS OTHER SKIN DISORDERS 07/18/2008 PATINO DO, VALERIE K 709.9 DERMATITIS OTHER SKIN DISORDERS 07/18/2008 PATINO DO, VALERIE K 709.9 DERMATITIS OTHER SKIN DISORDERS 07/18/2008 HELFIONA LOAIZA SHAHEEN E 709.9 DERMATITIS OTHER SKIN DISORDERS 07/18/2008 ROXY HOWE DPM 709.9 DERMATITIS OTHER SKIN DISORDERS 07/18/2008 IAN LOAIZA, SHAHEEN E 709.9 DERMATITIS OTHER SKIN DISORDERS 07/18/2008 PATINO DO, VALERIE K 709.9 DERMATITIS OTHER SKIN DISORDERS 07/18/2008 ZAKIYALANNA LOAIZA, SHAHEEN E 709.9 DERMATITIS OTHER SKIN DISORDERS 07/18/2008 HELLWIG MINING SPECULATOR, SHAHEEN E 709.9 DERMATITIS OTHER SKIN DISORDERS 07/18/2008 PATINO DO, VALERIE K 709.9 DERMATITIS OTHER SKIN DISORDERS 07/18/2008 PATINO DO, VALERIE K 709.9 DERMATITIS OTHER SKIN DISORDERS 07/18/2008 PATINO DO, VALERIE K 709.9 DERMATITIS OTHER SKIN DISORDERS 07/18/2008 PATINO DO, VALERIE K 709.9 DERMATITIS OTHER SKIN DISORDERS 08/29/2008 SHAMIKA GOLDBERG MD 724.5 BACKACHE UNSPECIFIED 08/29/2008 BUSTER GOLDBERG MDELLE 724.5 BACKACHE UNSPECIFIED 08/29/2008 724.5 BACKACHE UNSPECIFIED 08/29/2008 PATINO DO, VALERIE K 724.5 BACKACHE UNSPECIFIED 08/29/2008 724.5 BACKACHE UNSPECIFIED 08/29/2008 724.5 BACKACHE UNSPECIFIED 08/29/2008 GAGANDEEP OCONNOR AMADEO Jose Alejandro 724.5 BACKACHE UNSPECIFIED 08/29/2008 YUSUF MC, SHAMIKA 724.5 BACKACHE UNSPECIFIED 08/29/2008 YUSUF MC, SHAMIKA 724.5 BACKACHE UNSPECIFIED 08/29/2008 PATINO DO, VALERIE K 724.5 BACKACHE UNSPECIFIED 08/29/2008 724.5 BACKACHE UNSPECIFIED 08/29/2008 724.5 BACKACHE UNSPECIFIED 08/29/2008 724.5 BACKACHE UNSPECIFIED 08/29/2008 724.5 BACKACHE UNSPECIFIED 08/29/2008 724.5 BACKACHE UNSPECIFIED 08/29/2008 724.5 BACKACHE UNSPECIFIED 08/29/2008 724.5 BACKACHE UNSPECIFIED 08/29/2008 PATINO DO, VALERIE K 724.5 BACKACHE UNSPECIFIED 08/29/2008 PATINO DO, VALERIE K 724.5 BACKACHE UNSPECIFIED 08/29/2008 PATINO DO, VALERIE K 724.5 BACKACHE UNSPECIFIED 08/29/2008 PATINO DO, VALERIE K 724.5 BACKACHE UNSPECIFIED 08/29/2008 PATINO DO, VALERIE K 724.5 BACKACHE UNSPECIFIED 08/29/2008 PATINO DO, VALERIE K 724.5 BACKACHE UNSPECIFIED 08/29/2008 PATINO DO, VALERIE K 724.5 BACKACHE UNSPECIFIED 08/29/2008 PATINO DO, VALERIE K 724.5 BACKACHE UNSPECIFIED 08/29/2008 PATINO DO, VALERIE K 724.5 BACKACHE UNSPECIFIED 08/29/2008 NAY FELICIANO APRN 724.5 BACKACHE UNSPECIFIED 08/29/2008 PATINO DO, VALERIE K 724.5 BACKACHE UNSPECIFIED 08/29/2008 PATINO DO, VALERIE K 724.5 BACKACHE UNSPECIFIED 08/29/2008 SHAHEEN SOSA APRN 724.5 BACKACHE UNSPECIFIED 08/29/2008 NADIA DDS, TILA M 724.5 BACKACHE UNSPECIFIED 08/29/2008 PATINO DO, VALERIE K 724.5 BACKACHE UNSPECIFIED 08/29/2008 PATINO DO, VALERIE K 724.5 BACKACHE UNSPECIFIED 08/29/2008 HELLWIG MINING SPECULATOR, SHAHEEN E 724.5 BACKACHE UNSPECIFIED 08/29/2008 SHYAM DPM, ROXY 724.5 BACKACHE UNSPECIFIED 08/29/2008 HELLWIG MINING SPECULATOR, SHAHEEN E 724.5 BACKACHE UNSPECIFIED 08/29/2008 PATINO DO, VALERIE K 724.5 BACKACHE UNSPECIFIED 08/29/2008 HELLWIG MINING SPECULATOR, SHAHEEN E 724.5 BACKACHE UNSPECIFIED 08/29/2008 HELLWIG MINING SPECULATOR, SHAHEEN E 724.5 BACKACHE UNSPECIFIED 08/29/2008 PATINO DO, VALERIE K 724.5 BACKACHE UNSPECIFIED 08/29/2008 PATINO DO, VALERIE K 724.5 BACKACHE UNSPECIFIED 08/29/2008 PAITNO DO, VALERIE K 724.5 BACKACHE UNSPECIFIED 08/29/2008 PATINO DO, VALERIE K 724.5 BACKACHE UNSPECIFIED 11/28/2008 SHAMIKA GOLDBERG MD 034.0 PHARYNGITIS STREPTOCOCCUS, GROUP A: BETA HEMOLYTIC 11/28/2008 SHAMIKA GOLDBERG MD 259.9 ENDOCRINE DISORDERS 11/28/2008 SHAMIKA GOLDBERG MD 786.2 cough 11/28/2008 SHAMIKA GOLDBERG MD 034.0 PHARYNGITIS STREPTOCOCCUS, GROUP A: BETA HEMOLYTIC 11/28/2008 SHAMIKA GOLDBERG MD 259.9 ENDOCRINE DISORDERS 11/28/2008 SHAMIKA GOLDBERG MD 786.2 cough 11/28/2008 034.0 PHARYNGITIS STREPTOCOCCUS, GROUP A: BETA HEMOLYTIC 11/28/2008 259.9 ENDOCRINE DISORDERS 11/28/2008 786.2 cough 11/28/2008 PATINO DO, VALERIE K 034.0 PHARYNGITIS STREPTOCOCCUS, GROUP A: BETA HEMOLYTIC 11/28/2008 PATINO DO, VALERIE K 259.9 ENDOCRINE DISORDERS 11/28/2008 PATINO DO, VALERIE K 786.2 cough 11/28/2008 034.0 PHARYNGITIS STREPTOCOCCUS, GROUP A: BETA HEMOLYTIC 11/28/2008 259.9 ENDOCRINE DISORDERS 11/28/2008 786.2 cough 11/28/2008 034.0 PHARYNGITIS STREPTOCOCCUS, GROUP A: BETA HEMOLYTIC 11/28/2008 259.9 ENDOCRINE DISORDERS 11/28/2008 786.2 cough 11/28/2008 AMADEO DONIS DO 034.0 PHARYNGITIS STREPTOCOCCUS, GROUP A: BETA HEMOLYTIC 11/28/2008 AMADEO DONIS DO F 259.9 ENDOCRINE DISORDERS 11/28/2008 AMADEO DONIS DO F 786.2 cough 11/28/2008 SHAMIKA GOLDBERG MD 034.0 PHARYNGITIS STREPTOCOCCUS, GROUP A: BETA HEMOLYTIC 11/28/2008 SHAMIKA GOLDBERG MD 259.9 ENDOCRINE DISORDERS 11/28/2008 SHAMIKA GOLDBERG MD 786.2 cough 11/28/2008 SHAMIKA GOLDBERG MD 034.0 PHARYNGITIS STREPTOCOCCUS, GROUP A: BETA HEMOLYTIC 11/28/2008 SHAMIKA GOLDBERG MD 259.9 ENDOCRINE DISORDERS 11/28/2008 SHAMIKA GOLDBERG MD 786.2 cough 11/28/2008 VALERIE PATINO DO 034.0 PHARYNGITIS STREPTOCOCCUS, GROUP A: BETA HEMOLYTIC 11/28/2008 VALERIE PATINO DO 259.9 ENDOCRINE DISORDERS 11/28/2008 VALERIE PATINO DO K 786.2 cough 11/28/2008 034.0 PHARYNGITIS STREPTOCOCCUS, GROUP A: BETA HEMOLYTIC 11/28/2008 259.9 ENDOCRINE DISORDERS 11/28/2008 786.2 cough 11/28/2008 034.0 PHARYNGITIS STREPTOCOCCUS, GROUP A: BETA HEMOLYTIC 11/28/2008 259.9 ENDOCRINE DISORDERS 11/28/2008 786.2 cough 11/28/2008 034.0 PHARYNGITIS STREPTOCOCCUS, GROUP A: BETA HEMOLYTIC 11/28/2008 259.9 ENDOCRINE DISORDERS 11/28/2008 786.2 cough 11/28/2008 034.0 PHARYNGITIS STREPTOCOCCUS, GROUP A: BETA HEMOLYTIC 11/28/2008 259.9 ENDOCRINE DISORDERS 11/28/2008 786.2 cough 11/28/2008 034.0 PHARYNGITIS STREPTOCOCCUS, GROUP A: BETA HEMOLYTIC 11/28/2008 259.9 ENDOCRINE DISORDERS 11/28/2008 786.2 cough 11/28/2008 034.0 PHARYNGITIS STREPTOCOCCUS, GROUP A: BETA HEMOLYTIC 11/28/2008 259.9 ENDOCRINE DISORDERS 11/28/2008 786.2 cough 11/28/2008 034.0 PHARYNGITIS STREPTOCOCCUS, GROUP A: BETA HEMOLYTIC 11/28/2008 259.9 ENDOCRINE DISORDERS 11/28/2008 786.2 cough 11/28/2008 PATINO DO, VALERIE K 034.0 PHARYNGITIS STREPTOCOCCUS, GROUP A: BETA HEMOLYTIC 11/28/2008 PATINO DO, VALERIE K 259.9 ENDOCRINE DISORDERS 11/28/2008 PATINO DO, VALERIE K 786.2 cough 11/28/2008 PATINO DO, VALERIE K 034.0 PHARYNGITIS STREPTOCOCCUS, GROUP A: BETA HEMOLYTIC 11/28/2008 PATINO DO, VALERIE K 259.9 ENDOCRINE DISORDERS 11/28/2008 PATINO DO, VALERIE K 786.2 cough 11/28/2008 PATINO DO, VALERIE K 034.0 PHARYNGITIS STREPTOCOCCUS, GROUP A: BETA HEMOLYTIC 11/28/2008 PATINO DO, VALERIE K 259.9 ENDOCRINE DISORDERS 11/28/2008 PATINO DO, VALERIE K 786.2 cough 11/28/2008 PATINO DO, VALERIE K 034.0 PHARYNGITIS STREPTOCOCCUS, GROUP A: BETA HEMOLYTIC 11/28/2008 PATINO DO, VALERIE K 259.9 ENDOCRINE DISORDERS 11/28/2008 PATINO DO, VALERIE K 786.2 cough 11/28/2008 PATINO DO, VALERIE K 034.0 PHARYNGITIS STREPTOCOCCUS, GROUP A: BETA HEMOLYTIC 11/28/2008 PATINO DO, VALERIE K 259.9 ENDOCRINE DISORDERS 11/28/2008 PATINO DO, VALERIE K 786.2 cough 11/28/2008 PATINO DO, VALERIE K 034.0 PHARYNGITIS STREPTOCOCCUS, GROUP A: BETA HEMOLYTIC 11/28/2008 PATINO DO, VALERIE K 259.9 ENDOCRINE DISORDERS 11/28/2008 PATINO DO, VALERIE K 786.2 cough 11/28/2008 PATINO DO, VALERIE K 034.0 PHARYNGITIS STREPTOCOCCUS, GROUP A: BETA HEMOLYTIC 11/28/2008 PATINO DO, VALERIE K 259.9 ENDOCRINE DISORDERS 11/28/2008 PATINO DO, VALERIE K 786.2 cough 11/28/2008 PATINO DO, VALERIE K 034.0 PHARYNGITIS STREPTOCOCCUS, GROUP A: BETA HEMOLYTIC 11/28/2008 PATINO DO, VALERIE K 259.9 ENDOCRINE DISORDERS 11/28/2008 PATINO DO, VALERIE K 786.2 cough 11/28/2008 PATINO DO, VALERIE K 034.0 PHARYNGITIS STREPTOCOCCUS, GROUP A: BETA HEMOLYTIC 11/28/2008 PATINO DO, VALERIE K 259.9 ENDOCRINE DISORDERS 11/28/2008 PATINO DO, VALERIE K 786.2 cough 11/28/2008 NAY FELICIANO APRN 034.0 PHARYNGITIS STREPTOCOCCUS, GROUP A: BETA HEMOLYTIC 11/28/2008 NAY FELICIANO APRN 259.9 ENDOCRINE DISORDERS 11/28/2008 NAY FELICIANO APRN 786.2 cough 11/28/2008 PATINO DO, VALERIE K 034.0 PHARYNGITIS STREPTOCOCCUS, GROUP A: BETA HEMOLYTIC 11/28/2008 PATINO DO, VALERIE K 259.9 ENDOCRINE DISORDERS 11/28/2008 PATINO DO, VALERIE K 786.2 cough 11/28/2008 PATINO DO, VALERIE K 034.0 PHARYNGITIS STREPTOCOCCUS, GROUP A: BETA HEMOLYTIC 11/28/2008 PATINO DO, VALERIE K 259.9 ENDOCRINE DISORDERS 11/28/2008 PATINO DO, VALERIE K 786.2 cough 11/28/2008 RIGO SOSA APRNE E 034.0 PHARYNGITIS STREPTOCOCCUS, GROUP A: BETA HEMOLYTIC 11/28/2008 GADIEL SOSA APRNSIE E 259.9 ENDOCRINE DISORDERS 11/28/2008 ZAKIYALGADIEL CASTILLO APRNSIE E 786.2 cough 11/28/2008 NADIA DDS, TILA M 034.0 PHARYNGITIS STREPTOCOCCUS, GROUP A: BETA HEMOLYTIC 11/28/2008 NADIA DDS, TILA M 259.9 ENDOCRINE DISORDERS 11/28/2008 NADIA DDS, TILA M 786.2 cough 11/28/2008 PATINO DO, VALERIE K 034.0 PHARYNGITIS STREPTOCOCCUS, GROUP A: BETA HEMOLYTIC 11/28/2008 PATINO DO, VALERIE K 259.9 ENDOCRINE DISORDERS 11/28/2008 PATINO DO, VALERIE K 786.2 cough 11/28/2008 PATINO DO, VALERIE K 034.0 PHARYNGITIS STREPTOCOCCUS, GROUP A: BETA HEMOLYTIC 11/28/2008 PATINO DO, VALERIE K 259.9 ENDOCRINE DISORDERS 11/28/2008 PATINO DO, VALERIE K 786.2 cough 11/28/2008 ZAKIYALGADIEL CASTILLO APRNSIE E 034.0 PHARYNGITIS STREPTOCOCCUS, GROUP A: BETA HEMOLYTIC 11/28/2008 GADIEL SOSA APRNSIE E 259.9 ENDOCRINE DISORDERS 11/28/2008 HELLWIG MINING SPECULATOR, SHAHEEN E 786.2 cough 11/28/2008 SHYAM DPM, ROXY 034.0 PHARYNGITIS STREPTOCOCCUS, GROUP A: BETA HEMOLYTIC 11/28/2008 SHYAM DPM, ROXY 259.9 ENDOCRINE DISORDERS 11/28/2008 SHYAM DPM, ROXY 786.2 cough 11/28/2008 [facility] MINING SPECULATOR, SHAHEEN E 034.0 PHARYNGITIS STREPTOCOCCUS, GROUP A: BETA HEMOLYTIC 11/28/2008 [facility] MINING SPECULATOR, SHAHEEN E 259.9 ENDOCRINE DISORDERS 11/28/2008 [facility] MINING SPECULATOR, SHAHEEN E 786.2 cough 11/28/2008 PATINO DO, VALERIE K 034.0 PHARYNGITIS STREPTOCOCCUS, GROUP A: BETA HEMOLYTIC 11/28/2008 PATINO DO, VALERIE K 259.9 ENDOCRINE DISORDERS 11/28/2008 PATINO DO, VALERIE K 786.2 cough 11/28/2008 [facility] MINING SPECULATOR, SHAHEEN E 034.0 PHARYNGITIS STREPTOCOCCUS, GROUP A: BETA HEMOLYTIC 11/28/2008 [facility] 259.9 ENDOCRINE DISORDERS 11/28/2008 [facility] MINING SPECULATOR, SHAHEEN E 786.2 cough 11/28/2008 [facility] MINING SPECULATOR, SHAHEEN E 034.0 PHARYNGITIS STREPTOCOCCUS, GROUP A: BETA HEMOLYTIC 11/28/2008 [facility] MINING SPECULATOR, SHAHEEN E 259.9 ENDOCRINE DISORDERS 11/28/2008 [facility] MINING SPECULATOR, SHAHEEN E 786.2 cough 11/28/2008 PATINO DO, VALERIE K 034.0 PHARYNGITIS STREPTOCOCCUS, GROUP A: BETA HEMOLYTIC 11/28/2008 PATINO DO, VALERIE K 259.9 ENDOCRINE DISORDERS 11/28/2008 PATINO DO, VALERIE K 786.2 cough 11/28/2008 PATINO DO, VALERIE K 034.0 PHARYNGITIS STREPTOCOCCUS, GROUP A: BETA HEMOLYTIC 11/28/2008 PATINO DO, VALERIE K 259.9 ENDOCRINE DISORDERS 11/28/2008 PATINO DO, VALERIE K 786.2 cough 11/28/2008 PATINO DO, VALERIE K 034.0 PHARYNGITIS STREPTOCOCCUS, GROUP A: BETA HEMOLYTIC 11/28/2008 PATINO DO, VALERIE K 259.9 ENDOCRINE DISORDERS 11/28/2008 PATINO DO, VALERIE K 786.2 cough 11/28/2008 SUKUMAR OCONNOR VALERIE K 034.0 PHARYNGITIS STREPTOCOCCUS, GROUP A: BETA HEMOLYTIC 11/28/2008 SUKUMAR DOVALERIE K 259.9 ENDOCRINE DISORDERS 11/28/2008 SUKUMAR DO, VALERIE K 786.2 cough 01/18/2009 YUSUF MC, SHAMIKA 692.6 POISON JOHANA 01/18/2009 YUSUF MC, SHAMIKA 692.6 POISON JOHANA 01/18/2009 692.6 POISON JOHANA 01/18/2009 PATINO DOVALERIE K 692.6 POISON JOHANA 01/18/2009 692.6 POISON JOHANA 01/18/2009 692.6 POISON JOHANA 01/18/2009 WERDER AMADEO OCONNOR 692.6 POISON JOHANA 01/18/2009 YUSUF MC, SHAMIKA 692.6 POISON JOHANA 01/18/2009 SHAMIKA GOLDBERG MD 692.6 POISON JOHANA 01/18/2009 PATINO DOGADIELA K 692.6 POISON JOHANA 01/18/2009 692.6 POISON JOHANA 01/18/2009 692.6 POISON JOHANA 01/18/2009 692.6 POISON JOHANA 01/18/2009 692.6 POISON JOHANA 01/18/2009 692.6 POISON JOHANA 01/18/2009 692.6 POISON JOHANA 01/18/2009 692.6 POISON JOHANA 01/18/2009 PATINO DO, VALERIE K 692.6 POISON JOHANA 01/18/2009 PATINO DO, VALERIE K 692.6 POISON JOHANA 01/18/2009 PATINO DO, VALERIE K 692.6 POISON JOHANA 01/18/2009 PATINO DO, VALERIE K 692.6 POISON JOHANA 01/18/2009 PATINO DO, VALERIE K 692.6 POISON JOHANA 01/18/2009 PATINO DO, VALERIE K 692.6 POISON JOHANA 01/18/2009 PATINO DO, VALERIE K 692.6 POISON JHOANA 01/18/2009 PATINO DO, VALERIE K 692.6 POISON JOHANA 01/18/2009 PATINO DO, VALERIE K 692.6 POISON JOHANA 01/18/2009 NAY FELICIANO APRN 692.6 POISON JOHANA 01/18/2009 PATINO DO, VALERIE K 692.6 POISON JOHANA 01/18/2009 PATINO DO, VALERIE K 692.6 POISON JOHANA 01/18/2009 HELLWIG MINING SPECULATOR, SHAHEEN E 692.6 POISON JOHANA 01/18/2009 NADIA DDS, TILA M 692.6 POISON JOHANA 01/18/2009 PATINO DO, VALERIE K 692.6 POISON JOHANA 01/18/2009 PATINO DO, VALERIE K 692.6 POISON JOHAAN 01/18/2009 HELLWIG MINING SPECULATOR, SHAHEEN E 692.6 POISON JOHANA 01/18/2009 SHYAM DPM, ROXY 692.6 POISON JOHANA 01/18/2009 HELLWIG MINING SPECULATOR, SHAHEEN E 692.6 POISON JOHANA 01/18/2009 PATINO DO, VALERIE K 692.6 POISON JOHANA 01/18/2009 HELLWIG MINING SPECULATOR, SHAHEEN E 692.6 POISON JOHANA 01/18/2009 HELLWIG MINING SPECULATOR, SHAHEEN E 692.6 POISON JOHANA 01/18/2009 PATINO DO, VALERIE K 692.6 POISON JOHANA 01/18/2009 PATINO DO, VALERIE K 692.6 POISON JOHANA 01/18/2009 PATINO DO, VALERIE K 692.6 POISON JOHANA 01/18/2009 PATINO DO, VALERIE K 692.6 POISON JOHANA 04/09/2009 SHAMIKA GOLDBERG MD 477.9 RHINITIS 04/09/2009 SHAMIKA GOLDBERG MD V15.09 PERSONAL HISTORY OF OTHER ALLERGY OTHER THAN TO MEDICINAL AGENTS 04/09/2009 SHAMIKA GOLDBERG MD 477.9 RHINITIS 04/09/2009 SHAMIKA GOLDBERG MD V15.09 PERSONAL HISTORY OF OTHER ALLERGY OTHER THAN TO MEDICINAL AGENTS 04/09/2009 477.9 RHINITIS 04/09/2009 V15.09 PERSONAL HISTORY OF OTHER ALLERGY OTHER THAN TO MEDICINAL AGENTS 04/09/2009 VALERIE PATINO DO K 477.9 RHINITIS 04/09/2009 GADIEL PATINO DOA K V15.09 PERSONAL HISTORY OF OTHER ALLERGY OTHER THAN TO MEDICINAL AGENTS 04/09/2009 477.9 RHINITIS 04/09/2009 V15.09 PERSONAL HISTORY OF OTHER ALLERGY OTHER THAN TO MEDICINAL AGENTS 04/09/2009 477.9 RHINITIS 04/09/2009 V15.09 PERSONAL HISTORY OF OTHER ALLERGY OTHER THAN TO MEDICINAL AGENTS 04/09/2009 AMADEO DONIS DO F 477.9 RHINITIS 04/09/2009 AMADEO DONIS DO F V15.09 PERSONAL HISTORY OF OTHER ALLERGY OTHER THAN TO MEDICINAL AGENTS 04/09/2009 SHAMIKA GOLDBERG MD 477.9 RHINITIS 04/09/2009 SHAMIKA GOLDBERG MD V15.09 PERSONAL HISTORY OF OTHER ALLERGY OTHER THAN TO MEDICINAL AGENTS 04/09/2009 SHAMIKA GOLDBERG MD 477.9 RHINITIS 04/09/2009 SHAMIKA GOLDBERG MD V15.09 PERSONAL HISTORY OF OTHER ALLERGY OTHER THAN TO MEDICINAL AGENTS 04/09/2009 PATINO DO VALERIE K 477.9 RHINITIS 04/09/2009 PATINO DO, VALERIE K V15.09 PERSONAL HISTORY OF OTHER ALLERGY OTHER THAN TO MEDICINAL AGENTS 04/09/2009 477.9 RHINITIS 04/09/2009 V15.09 PERSONAL HISTORY OF OTHER ALLERGY OTHER THAN TO MEDICINAL AGENTS 04/09/2009 477.9 RHINITIS 04/09/2009 V15.09 PERSONAL HISTORY OF OTHER ALLERGY OTHER THAN TO MEDICINAL AGENTS 04/09/2009 477.9 RHINITIS 04/09/2009 V15.09 PERSONAL HISTORY OF OTHER ALLERGY OTHER THAN TO MEDICINAL AGENTS 04/09/2009 477.9 RHINITIS 04/09/2009 V15.09 PERSONAL HISTORY OF OTHER ALLERGY OTHER THAN TO MEDICINAL AGENTS 04/09/2009 477.9 RHINITIS 04/09/2009 V15.09 PERSONAL HISTORY OF OTHER ALLERGY OTHER THAN TO MEDICINAL AGENTS 04/09/2009 477.9 RHINITIS 04/09/2009 V15.09 PERSONAL HISTORY OF OTHER ALLERGY OTHER THAN TO MEDICINAL AGENTS 04/09/2009 477.9 RHINITIS 04/09/2009 V15.09 PERSONAL HISTORY OF OTHER ALLERGY OTHER THAN TO MEDICINAL AGENTS 04/09/2009 PATINO DO VALERIE K 477.9 RHINITIS 04/09/2009 PATINO DO, VALERIE K V15.09 PERSONAL HISTORY OF OTHER ALLERGY OTHER THAN TO MEDICINAL AGENTS 04/09/2009 PATINO DO VALERIE K 477.9 RHINITIS 04/09/2009 PATINO DO VALERIE K V15.09 PERSONAL HISTORY OF OTHER ALLERGY OTHER THAN TO MEDICINAL AGENTS 04/09/2009 PATINO DO VALERIE K 477.9 RHINITIS 04/09/2009 PATINO DO VALERIE K V15.09 PERSONAL HISTORY OF OTHER ALLERGY OTHER THAN TO MEDICINAL AGENTS 04/09/2009 PATINO DO VALERIE K 477.9 RHINITIS 04/09/2009 PATINO DO, VALERIE K V15.09 PERSONAL HISTORY OF OTHER ALLERGY OTHER THAN TO MEDICINAL AGENTS 04/09/2009 PATINO DO, VALERIE K 477.9 RHINITIS 04/09/2009 PATINO DO, VALERIE K V15.09 PERSONAL HISTORY OF OTHER ALLERGY OTHER THAN TO MEDICINAL AGENTS 04/09/2009 PATINO DO, VALERIE K 477.9 RHINITIS 04/09/2009 PATINO DO, VALERIE K V15.09 PERSONAL HISTORY OF OTHER ALLERGY OTHER THAN TO MEDICINAL AGENTS 04/09/2009 PATINO DO, VALERIE K 477.9 RHINITIS 04/09/2009 PATINO DO, VALERIE K V15.09 PERSONAL HISTORY OF OTHER ALLERGY OTHER THAN TO MEDICINAL AGENTS 04/09/2009 PATINO DO, VALERIE K 477.9 RHINITIS 04/09/2009 PATINO DO, VALERIE K V15.09 PERSONAL HISTORY OF OTHER ALLERGY OTHER THAN TO MEDICINAL AGENTS 04/09/2009 PATINO DO, VALERIE K 477.9 RHINITIS 04/09/2009 PATINO DO, VALERIE K V15.09 PERSONAL HISTORY OF OTHER ALLERGY OTHER THAN TO MEDICINAL AGENTS 04/09/2009 FELICIANONAY ARAGON APRN 477.9 RHINITIS 04/09/2009 FELICIANONAY ARAGON APRN R V15.09 PERSONAL HISTORY OF OTHER ALLERGY OTHER THAN TO MEDICINAL AGENTS 04/09/2009 PATINO DO, VALERIE K 477.9 RHINITIS 04/09/2009 PATINO DO, VALERIE K V15.09 PERSONAL HISTORY OF OTHER ALLERGY OTHER THAN TO MEDICINAL AGENTS 04/09/2009 PATINO DO, VALERIE K 477.9 RHINITIS 04/09/2009 PATINO DO, VALERIE K V15.09 PERSONAL HISTORY OF OTHER ALLERGY OTHER THAN TO MEDICINAL AGENTS 04/09/2009 ZAKIYALANNA MORENONSHAHEEN E 477.9 RHINITIS 04/09/2009 HELLANNA MINING SPECULATORGADIELSHAHEEN E V15.09 PERSONAL HISTORY OF OTHER ALLERGY OTHER THAN TO MEDICINAL AGENTS 04/09/2009 NADIA DDS, TILA M 477.9 RHINITIS 04/09/2009 NADIA DDS, TILA M V15.09 PERSONAL HISTORY OF OTHER ALLERGY OTHER THAN TO MEDICINAL AGENTS 04/09/2009 PATINO DO, VALERIE K 477.9 RHINITIS 04/09/2009 PATINO DO, VALERIE K V15.09 PERSONAL HISTORY OF OTHER ALLERGY OTHER THAN TO MEDICINAL AGENTS 04/09/2009 PATINO DO, VALERIE K 477.9 RHINITIS 04/09/2009 PATINO DO, VALERIE K V15.09 PERSONAL HISTORY OF OTHER ALLERGY OTHER THAN TO MEDICINAL AGENTS 04/09/2009 HELLWIG MINING SPECULATOR SHAHEEN E 477.9 RHINITIS 04/09/2009 HELLWIG MINING SPECULATOR, SHAHEEN E V15.09 PERSONAL HISTORY OF OTHER ALLERGY OTHER THAN TO MEDICINAL AGENTS 04/09/2009 SHYAM DPM, ROXY 477.9 RHINITIS 04/09/2009 SHYAM DPM, ROXY V15.09 PERSONAL HISTORY OF OTHER ALLERGY OTHER THAN TO MEDICINAL AGENTS 04/09/2009 HELLWIG MINING SPECULATORGADIELSHAHEEN E 477.9 RHINITIS 04/09/2009 HELLWIG MINING SPECULATOR, SHAHEEN E V15.09 PERSONAL HISTORY OF OTHER ALLERGY OTHER THAN TO MEDICINAL AGENTS 04/09/2009 PTAINO DO, VALERIE K 477.9 RHINITIS 04/09/2009 PATINO DO, VALERIE K V15.09 PERSONAL HISTORY OF OTHER ALLERGY OTHER THAN TO MEDICINAL AGENTS 04/09/2009 HELLWIG MINING SPECULATORGADIEL RinaldiSIE E 477.9 RHINITIS 04/09/2009 HELLWIG MINING SPECULATOR SHAHEEN E V15.09 PERSONAL HISTORY OF OTHER ALLERGY OTHER THAN TO MEDICINAL AGENTS 04/09/2009 HELLWIG MINING SPECULATOR, SHAHEEN E 477.9 RHINITIS 04/09/2009 HELLWIG MINING SPECULATOR SHAHEEN E V15.09 PERSONAL HISTORY OF OTHER ALLERGY OTHER THAN TO MEDICINAL AGENTS 04/09/2009 PATINO DO, VALERIE K 477.9 RHINITIS 04/09/2009 PATINO DO, VALERIE K V15.09 PERSONAL HISTORY OF OTHER ALLERGY OTHER THAN TO MEDICINAL AGENTS 04/09/2009 PATINO DO, VALERIE K 477.9 RHINITIS 04/09/2009 PATINO DO, VALERIE K V15.09 PERSONAL HISTORY OF OTHER ALLERGY OTHER THAN TO MEDICINAL AGENTS 04/09/2009 PATINO DO, VALERIE K 477.9 RHINITIS 04/09/2009 PATINO DO, VALERIE K V15.09 PERSONAL HISTORY OF OTHER ALLERGY OTHER THAN TO MEDICINAL AGENTS 04/09/2009 PATINO DO, VALERIE K 477.9 RHINITIS 04/09/2009 PATINO DO, VALERIE K V15.09 PERSONAL HISTORY OF OTHER ALLERGY OTHER THAN TO MEDICINAL AGENTS 06/05/2009 YUSUF MC, SHAMIKA 724.2 lower back pain 06/05/2009 YUSUF MC, SHAMIKA 724.2 lower back pain 06/05/2009 724.2 lower back pain 06/05/2009 PATINO DO, VALERIE K 724.2 lower back pain 06/05/2009 724.2 lower back pain 06/05/2009 724.2 lower back pain 06/05/2009 WERDER DO, AMADEO Blount 724.2 lower back pain 06/05/2009 YUSUF MC, SHAMIKA 724.2 lower back pain 06/05/2009 SHAMIKA GOLDBERG MD 724.2 lower back pain 06/05/2009 PATINO DO, VALERIE K 724.2 lower back pain 06/05/2009 724.2 lower back pain 06/05/2009 724.2 lower back pain 06/05/2009 724.2 lower back pain 06/05/2009 724.2 lower back pain 06/05/2009 724.2 lower back pain 06/05/2009 724.2 lower back pain 06/05/2009 724.2 lower back pain 06/05/2009 PATINO DO, VALERIE K 724.2 lower back pain 06/05/2009 PATINO DO, VALERIE K 724.2 lower back pain 06/05/2009 PATINO DO, VALERIE K 724.2 lower back pain 06/05/2009 PATINO DO, VALERIE K 724.2 lower back pain 06/05/2009 PATINO DO, VALERIE K 724.2 lower back pain 06/05/2009 PATINO DO, VALERIE K 724.2 lower back pain 06/05/2009 PATINO DO, VALERIE K 724.2 lower back pain 06/05/2009 PATINO DO, VALERIE K 724.2 lower back pain 06/05/2009 PATINO DO, VALERIE K 724.2 lower back pain 06/05/2009 NAY FELICIANO APRN 724.2 lower back pain 06/05/2009 PATINO DO, VALERIE K 724.2 lower back pain 06/05/2009 PATINO DO, VALERIE K 724.2 lower back pain 06/05/2009 SHAHEEN SOSA APRN 724.2 lower back pain 06/05/2009 TILA ZUNIGA DDS 724.2 lower back pain 06/05/2009 PATINO DO, VALERIE K 724.2 lower back pain 06/05/2009 PATINO DO, VALERIE K 724.2 lower back pain 06/05/2009 HEL[employer]ING SPECULATOR, SHAHEEN E 724.2 lower back pain 06/05/2009 SHYAM DPM, ROXY 724.2 lower back pain 06/05/2009 HELLWIG MINING SPECULATOR, SHAHEEN E 724.2 lower back pain 06/05/2009 PATINO DO, VALERIE K 724.2 lower back pain 06/05/2009 [facility] SHAHEEN E 724.2 lower back pain 06/05/2009 HELWIG MINING SPECULATOR, SHAHEEN E 724.2 lower back pain 06/05/2009 PATINO DO, VALERIE K 724.2 lower back pain 06/05/2009 PATINO DO, VALERIE K 724.2 lower back pain 06/05/2009 PATINO DO, VALERIE K 724.2 lower back pain 06/05/2009 PATINO DO, VALERIE K 724.2 lower back pain 06/19/2009 SHAMIKA GOLDBERG MD 722.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 06/19/2009 SHAMIKA GOLDBERG MD 722.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 06/19/2009 722.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 06/19/2009 GADIEL PATINO DOA K 722.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 06/19/2009 722.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 06/19/2009 722.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 06/19/2009 AMADEO DONIS DO 722.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 06/19/2009 SHAMIKA GOLDBERG MD 722.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 06/19/2009 SHAMIKA GOLDBERG MD 722.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 06/19/2009 VALERIE PATINO DO K 722.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 06/19/2009 722.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 06/19/2009 722.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 06/19/2009 722.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 06/19/2009 722.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 06/19/2009 722.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 06/19/2009 722.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 06/19/2009 722.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 06/19/2009 PATINO DO, VALERIE K 722.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 06/19/2009 PATINO DO, VALERIE K 722.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 06/19/2009 PATINO DO, VALERIE K 722.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 06/19/2009 PATINO DO, VALERIE K 722.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 06/19/2009 PATINO DO, VALERIE K 722.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 06/19/2009 PATINO DO, VALERIE K 722.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 06/19/2009 PATINO DO, VALERIE K 722.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 06/19/2009 PATINO DO, VALERIE K 722.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 06/19/2009 PATINO DO, VALERIE K 722.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 06/19/2009 NAY FELICIANO APRN 722.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 06/19/2009 PATINO DO, VALERIE K 722.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 06/19/2009 PATINO DO, VALERIE K 722.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 06/19/2009 SHAHEEN SOSA APRN E 722.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 06/19/2009 TILA ZUNIGA DDS 722.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 06/19/2009 PATINO , VALERIE K 722.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 06/19/2009 PATINO DO VALERIE K 722.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 06/19/2009 SHAHEEN SOSA APRN E 722.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 06/19/2009 ROXY HOWE DPM 722.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 06/19/2009 SHAHEEN SOSA APRN E 722.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 06/19/2009 GADIEL PATINO DOA K 722.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 06/19/2009 ZAKIYAFORMERLY [facility], [facility] SHAHEEN LOAIZA E 722.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 06/19/2009 SHAHEEN SOSA APRN E 722.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 06/19/2009 SUKUMAR OCONNOR VALERIE K 722.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 06/19/2009 SUKUMAR OCONNOR VALERIE K 722.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 06/19/2009 SUKUMAR OCONNOR VALERIE K 722.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 06/19/2009 SUKUMAR OCONNOR VALERIE K 722.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 07/19/2009 SHAMIKA GOLDBERG MD 250.00 DIABETES MELLITUS POORLY CONTROLLED 07/19/2009 SHAMIKA GOLDBERG MD 845.00 UNSPECIFIED SITE OF ANKLE SPRAIN 07/19/2009 SHAMIKA GOLDBERG MD 250.00 DIABETES MELLITUS POORLY CONTROLLED 07/19/2009 SHAMIKA GOLDBERG MD 845.00 UNSPECIFIED SITE OF ANKLE SPRAIN 07/19/2009 250.00 DIABETES MELLITUS POORLY CONTROLLED 07/19/2009 845.00 UNSPECIFIED SITE OF ANKLE SPRAIN 07/19/2009 VALERIE PATINO DO K 250.00 DIABETES MELLITUS POORLY CONTROLLED 07/19/2009 VALERIE PATINO DO K 845.00 UNSPECIFIED SITE OF ANKLE SPRAIN 07/19/2009 250.00 DIABETES MELLITUS POORLY CONTROLLED 07/19/2009 845.00 UNSPECIFIED SITE OF ANKLE SPRAIN 07/19/2009 250.00 DIABETES MELLITUS POORLY CONTROLLED 07/19/2009 845.00 UNSPECIFIED SITE OF ANKLE SPRAIN 07/19/2009 AMADEO DONIS DO 250.00 DIABETES MELLITUS POORLY CONTROLLED 07/19/2009 AMADEO DONIS DO 845.00 UNSPECIFIED SITE OF ANKLE SPRAIN 07/19/2009 SHAMIKA GOLDBERG MD 250.00 DIABETES MELLITUS POORLY CONTROLLED 07/19/2009 SHAMIKA GOLDBERG MD 845.00 UNSPECIFIED SITE OF ANKLE SPRAIN 07/19/2009 SHAMIKA GOLDBERG MD 250.00 DIABETES MELLITUS POORLY CONTROLLED 07/19/2009 SHAMIKA GOLDBERG MD 845.00 UNSPECIFIED SITE OF ANKLE SPRAIN 07/19/2009 PATINO DO, VALERIE K 250.00 DIABETES MELLITUS POORLY CONTROLLED 07/19/2009 PATINO DO, VALERIE K 845.00 UNSPECIFIED SITE OF ANKLE SPRAIN 07/19/2009 250.00 DIABETES MELLITUS POORLY CONTROLLED 07/19/2009 845.00 UNSPECIFIED SITE OF ANKLE SPRAIN 07/19/2009 250.00 DIABETES MELLITUS POORLY CONTROLLED 07/19/2009 845.00 UNSPECIFIED SITE OF ANKLE SPRAIN 07/19/2009 250.00 DIABETES MELLITUS POORLY CONTROLLED 07/19/2009 845.00 UNSPECIFIED SITE OF ANKLE SPRAIN 07/19/2009 250.00 DIABETES MELLITUS POORLY CONTROLLED 07/19/2009 845.00 UNSPECIFIED SITE OF ANKLE SPRAIN 07/19/2009 250.00 DIABETES MELLITUS POORLY CONTROLLED 07/19/2009 845.00 UNSPECIFIED SITE OF ANKLE SPRAIN 07/19/2009 250.00 DIABETES MELLITUS POORLY CONTROLLED 07/19/2009 845.00 UNSPECIFIED SITE OF ANKLE SPRAIN 07/19/2009 250.00 DIABETES MELLITUS POORLY CONTROLLED 07/19/2009 845.00 UNSPECIFIED SITE OF ANKLE SPRAIN 07/19/2009 PATINO DO, VALERIE K 250.00 DIABETES MELLITUS POORLY CONTROLLED 07/19/2009 PATINO DO, VALERIE K 845.00 UNSPECIFIED SITE OF ANKLE SPRAIN 07/19/2009 PATINO DO, VALERIE K 250.00 DIABETES MELLITUS POORLY CONTROLLED 07/19/2009 PATINO DO, VALERIE K 845.00 UNSPECIFIED SITE OF ANKLE SPRAIN 07/19/2009 PATINO DO, VALERIE K 250.00 DIABETES MELLITUS POORLY CONTROLLED 07/19/2009 PATINO DO, VALERIE K 845.00 UNSPECIFIED SITE OF ANKLE SPRAIN 07/19/2009 PATINO DO, VALERIE K 250.00 DIABETES MELLITUS POORLY CONTROLLED 07/19/2009 PATINO DO, VALERIE K 845.00 UNSPECIFIED SITE OF ANKLE SPRAIN 07/19/2009 PATINO DO, VALERIE K 250.00 DIABETES MELLITUS POORLY CONTROLLED 07/19/2009 PATINO DO, VALERIE K 845.00 UNSPECIFIED SITE OF ANKLE SPRAIN 07/19/2009 PATINO DO, VALERIE K 250.00 DIABETES MELLITUS POORLY CONTROLLED 07/19/2009 PATINO DO, VALERIE K 845.00 UNSPECIFIED SITE OF ANKLE SPRAIN 07/19/2009 PATINO DO, VALERIE K 250.00 DIABETES MELLITUS POORLY CONTROLLED 07/19/2009 PATINO DO, VALERIE K 845.00 UNSPECIFIED SITE OF ANKLE SPRAIN 07/19/2009 PATINO DO, VALERIE K 250.00 DIABETES MELLITUS POORLY CONTROLLED 07/19/2009 PATINO DO, VALERIE K 845.00 UNSPECIFIED SITE OF ANKLE SPRAIN 07/19/2009 PATINO DO, VALERIE K 250.00 DIABETES MELLITUS POORLY CONTROLLED 07/19/2009 PATINO DO, VALERIE K 845.00 UNSPECIFIED SITE OF ANKLE SPRAIN 07/19/2009 NAY FELICIANO APRN 250.00 DIABETES MELLITUS POORLY CONTROLLED 07/19/2009 NAY FELICIANO APRN 845.00 UNSPECIFIED SITE OF ANKLE SPRAIN 07/19/2009 PATINO DO, VALERIE K 250.00 DIABETES MELLITUS POORLY CONTROLLED 07/19/2009 PATINO DO, VALERIE K 845.00 UNSPECIFIED SITE OF ANKLE SPRAIN 07/19/2009 PATINO DO, VALERIE K 250.00 DIABETES MELLITUS POORLY CONTROLLED 07/19/2009 PATINO DO, VALERIE K 845.00 UNSPECIFIED SITE OF ANKLE SPRAIN 07/19/2009 SHAHEEN SOSA APRN E 250.00 DIABETES MELLITUS POORLY CONTROLLED 07/19/2009 SHAHEEN SOSA APRN E 845.00 UNSPECIFIED SITE OF ANKLE SPRAIN 07/19/2009 NADIA DDS, TILA M 250.00 DIABETES MELLITUS POORLY CONTROLLED 07/19/2009 NADIA DDS, TILA M 845.00 UNSPECIFIED SITE OF ANKLE SPRAIN 07/19/2009 PATINO DO, VALERIE K 250.00 DIABETES MELLITUS POORLY CONTROLLED 07/19/2009 PATINO DO, VALERIE K 845.00 UNSPECIFIED SITE OF ANKLE SPRAIN 07/19/2009 PATINO DO, VALERIE K 250.00 DIABETES MELLITUS POORLY CONTROLLED 07/19/2009 PATINO DO, VALERIE K 845.00 UNSPECIFIED SITE OF ANKLE SPRAIN 07/19/2009 RIGO SOSA APRNE E 250.00 DIABETES MELLITUS POORLY CONTROLLED 07/19/2009 RIGO SOSA APRNE E 845.00 UNSPECIFIED SITE OF ANKLE SPRAIN 07/19/2009 SHYAM DPM, ROXY 250.00 DIABETES MELLITUS POORLY CONTROLLED 07/19/2009 SHYAM DPM, ROXY 845.00 UNSPECIFIED SITE OF ANKLE SPRAIN 07/19/2009 SHAHEEN SOSA APRN E 250.00 DIABETES MELLITUS POORLY CONTROLLED 07/19/2009 HELLWIG MINING SPECULATOR, SHAHEEN E 845.00 UNSPECIFIED SITE OF ANKLE SPRAIN 07/19/2009 PATINO DO, VALERIE K 250.00 DIABETES MELLITUS POORLY CONTROLLED 07/19/2009 PATINO DO, VALERIE K 845.00 UNSPECIFIED SITE OF ANKLE SPRAIN 07/19/2009 HELLWIG MINING SPECULATOR, SHAHEEN E 250.00 DIABETES MELLITUS POORLY CONTROLLED 07/19/2009 HELWIG MINING SPECULATOR, SHAHEEN E 845.00 UNSPECIFIED SITE OF ANKLE SPRAIN 07/19/2009 HELLWIG MINING SPECULATOR, SHAHEEN E 250.00 DIABETES MELLITUS POORLY CONTROLLED 07/19/2009 HELLWIG MINING SPECULATOR, SHAHEEN E 845.00 UNSPECIFIED SITE OF ANKLE SPRAIN 07/19/2009 PATINO DO, VALERIE K 250.00 DIABETES MELLITUS POORLY CONTROLLED 07/19/2009 PATINO DO, VALERIE K 845.00 UNSPECIFIED SITE OF ANKLE SPRAIN 07/19/2009 PATINO DO, VALERIE K 250.00 DIABETES MELLITUS POORLY CONTROLLED 07/19/2009 PATINO DO, VALERIE K 845.00 UNSPECIFIED SITE OF ANKLE SPRAIN 07/19/2009 PATINO DO, VALERIE K 250.00 DIABETES MELLITUS POORLY CONTROLLED 07/19/2009 PATINO DO, VALERIE K 845.00 UNSPECIFIED SITE OF ANKLE SPRAIN 07/19/2009 PATINO DO, VALERIE K 250.00 DIABETES MELLITUS POORLY CONTROLLED 07/19/2009 PATINO DO, VALERIE K 845.00 UNSPECIFIED SITE OF ANKLE SPRAIN 09/19/2009 SHAMIKA GOLDBEGR MD 599.0 URINARY TRACT INFECTION, SITE NOT SPECIFIED 09/19/2009 SHAMIKA GOLDBERG MD 599.0 URINARY TRACT INFECTION, SITE NOT SPECIFIED 09/19/2009 599.0 URINARY TRACT INFECTION, SITE NOT SPECIFIED 09/19/2009 PATINO DO, VALERIE K 599.0 URINARY TRACT INFECTION, SITE NOT SPECIFIED 09/19/2009 599.0 URINARY TRACT INFECTION, SITE NOT SPECIFIED 09/19/2009 599.0 URINARY TRACT INFECTION, SITE NOT SPECIFIED 09/19/2009 AMADEO DONIS DO 599.0 URINARY TRACT INFECTION, SITE NOT SPECIFIED 09/19/2009 SHAMIKA GOLDBERG MD 599.0 URINARY TRACT INFECTION, SITE NOT SPECIFIED 09/19/2009 SHAMIKA GOLDBERG MD 599.0 URINARY TRACT INFECTION, SITE NOT SPECIFIED 09/19/2009 PATINO DO, VALERIE K 599.0 URINARY TRACT INFECTION, SITE NOT SPECIFIED 09/19/2009 599.0 URINARY TRACT INFECTION, SITE NOT SPECIFIED 09/19/2009 599.0 URINARY TRACT INFECTION, SITE NOT SPECIFIED 09/19/2009 599.0 URINARY TRACT INFECTION, SITE NOT SPECIFIED 09/19/2009 599.0 URINARY TRACT INFECTION, SITE NOT SPECIFIED 09/19/2009 599.0 URINARY TRACT INFECTION, SITE NOT SPECIFIED 09/19/2009 599.0 URINARY TRACT INFECTION, SITE NOT SPECIFIED 09/19/2009 599.0 URINARY TRACT INFECTION, SITE NOT SPECIFIED 09/19/2009 PATINO DO, VALERIE K 599.0 URINARY TRACT INFECTION, SITE NOT SPECIFIED 09/19/2009 PATINO DO, VALERIE K 599.0 URINARY TRACT INFECTION, SITE NOT SPECIFIED 09/19/2009 PATINO DO, VALERIE K 599.0 URINARY TRACT INFECTION, SITE NOT SPECIFIED 09/19/2009 PATINO DO, VALERIE K 599.0 URINARY TRACT INFECTION, SITE NOT SPECIFIED 09/19/2009 PATINO DO, VALERIE K 599.0 URINARY TRACT INFECTION, SITE NOT SPECIFIED 09/19/2009 PATINO DO, VALERIE K 599.0 URINARY TRACT INFECTION, SITE NOT SPECIFIED 09/19/2009 PATINO DO, VALERIE K 599.0 URINARY TRACT INFECTION, SITE NOT SPECIFIED 09/19/2009 PATINO DO, VALERIE K 599.0 URINARY TRACT INFECTION, SITE NOT SPECIFIED 09/19/2009 PATINO DO, VALERIE K 599.0 URINARY TRACT INFECTION, SITE NOT SPECIFIED 09/19/2009 NAY FELICIANO APRN 599.0 URINARY TRACT INFECTION, SITE NOT SPECIFIED 09/19/2009 PATINO DO, VALERIE K 599.0 URINARY TRACT INFECTION, SITE NOT SPECIFIED 09/19/2009 PATINO DO, VALERIE K 599.0 URINARY TRACT INFECTION, SITE NOT SPECIFIED 09/19/2009 SHAHEEN SOSA APRN E 599.0 URINARY TRACT INFECTION, SITE NOT SPECIFIED 09/19/2009 TILA ZUNIGA DDS 599.0 URINARY TRACT INFECTION, SITE NOT SPECIFIED 09/19/2009 PATINO DO, VALERIE K 599.0 URINARY TRACT INFECTION, SITE NOT SPECIFIED 09/19/2009 PATINO DO, VALERIE K 599.0 URINARY TRACT INFECTION, SITE NOT SPECIFIED 09/19/2009 HELLWIG MINING SPECULATOR, SHAHEEN E 599.0 URINARY TRACT INFECTION, SITE NOT SPECIFIED 09/19/2009 SHYAM DPM, ROXY 599.0 URINARY TRACT INFECTION, SITE NOT SPECIFIED 09/19/2009 HELLWIG MINING SPECULATOR, SHAHEEN E 599.0 URINARY TRACT INFECTION, SITE NOT SPECIFIED 09/19/2009 PATINO DO, VALERIE K 599.0 URINARY TRACT INFECTION, SITE NOT SPECIFIED 09/19/2009 HELLWIG MINING SPECULATOR, SHAHEEN E 599.0 URINARY TRACT INFECTION, SITE NOT SPECIFIED 09/19/2009 HELLWIG MINING SPECULATOR, SHAHEEN E 599.0 URINARY TRACT INFECTION, SITE NOT SPECIFIED 09/19/2009 PATINO DO, VALERIE K 599.0 URINARY TRACT INFECTION, SITE NOT SPECIFIED 09/19/2009 PATINO DO, VALERIE K 599.0 URINARY TRACT INFECTION, SITE NOT SPECIFIED 09/19/2009 PATINO DO, VALERIE K 599.0 URINARY TRACT INFECTION, SITE NOT SPECIFIED 09/19/2009 PATINO DO, VALERIE K 599.0 URINARY TRACT INFECTION, SITE NOT SPECIFIED 09/26/2009 SHAMIKA GOLDBERG MD 388.70 earache 09/26/2009 SHAMIKA GOLDBERG MD 787.91 DIARRHEA 09/26/2009 SHAMIKA GOLDBERG MD 388.70 earache 09/26/2009 SHAMIKA GOLDBERG MD 787.91 DIARRHEA 09/26/2009 388.70 earache 09/26/2009 787.91 DIARRHEA 09/26/2009 PATINO DOGADIELA K 388.70 earache 09/26/2009 PATINO DO, VALERIE K 787.91 DIARRHEA 09/26/2009 388.70 earache 09/26/2009 787.91 DIARRHEA 09/26/2009 388.70 earache 09/26/2009 787.91 DIARRHEA 09/26/2009 WERAMADEO STUART DO F 388.70 earache 09/26/2009 AMADEO DONIS DO F 787.91 DIARRHEA 09/26/2009 SHAMIKA GOLDBERG MD 388.70 earache 09/26/2009 SHAMIKA GOLDBERG MD 787.91 DIARRHEA 09/26/2009 SHAMIKA GOLDBERG MD 388.70 earache 09/26/2009 SHAMIKA GOLDBERG MD 787.91 DIARRHEA 09/26/2009 PATINO DO VALERIE K 388.70 earache 09/26/2009 PATINO DO VALERIE K 787.91 DIARRHEA 09/26/2009 388.70 earache 09/26/2009 787.91 DIARRHEA 09/26/2009 388.70 earache 09/26/2009 787.91 DIARRHEA 09/26/2009 388.70 earache 09/26/2009 787.91 DIARRHEA 09/26/2009 388.70 earache 09/26/2009 787.91 DIARRHEA 09/26/2009 388.70 earache 09/26/2009 787.91 DIARRHEA 09/26/2009 388.70 earache 09/26/2009 787.91 DIARRHEA 09/26/2009 388.70 earache 09/26/2009 787.91 DIARRHEA 09/26/2009 PATINO DO, VALERIE K 388.70 earache 09/26/2009 PATINO DO, VALERIE K 787.91 DIARRHEA 09/26/2009 PATINO DO, VALERIE K 388.70 earache 09/26/2009 PATINO DO, VALERIE K 787.91 DIARRHEA 09/26/2009 PATINO DO, VALERIE K 388.70 earache 09/26/2009 PATINO DO, VALERIE K 787.91 DIARRHEA 09/26/2009 PATINO DO, VALERIE K 388.70 earache 09/26/2009 PATINO DO, VALERIE K 787.91 DIARRHEA 09/26/2009 PATINO DO, VALERIE K 388.70 earache 09/26/2009 PATINO DO, VALERIE K 787.91 DIARRHEA 09/26/2009 PATINO DO, VALERIE K 388.70 earache 09/26/2009 PATINO DO, VALERIE K 787.91 DIARRHEA 09/26/2009 PATINO DO, VALERIE K 388.70 earache 09/26/2009 PATINO DO, VALERIE K 787.91 DIARRHEA 09/26/2009 PATINO DO, VALERIE K 388.70 earache 09/26/2009 PATINO DO, VALERIE K 787.91 DIARRHEA 09/26/2009 PATINO DO, VALERIE K 388.70 earache 09/26/2009 PATINO DO, VALERIE K 787.91 DIARRHEA 09/26/2009 FELICIANO NAY LOAIZA 388.70 earache 09/26/2009 FELICIANONAY Webster APRN 787.91 DIARRHEA 09/26/2009 PATINO DO, VALERIE K 388.70 earache 09/26/2009 PATINO DO, VALERIE K 787.91 DIARRHEA 09/26/2009 PATINO DO, VALERIE K 388.70 earache 09/26/2009 PATINO DO, VALERIE K 787.91 DIARRHEA 09/26/2009 HELLWIG MINING SPECULATOR, SHAHEEN E 388.70 earache 09/26/2009 HELLWIG MINING SPECULATOR, SHAHEEN E 787.91 DIARRHEA 09/26/2009 NADIA DDS, TILA M 388.70 earache 09/26/2009 NADIA DDS, TILA M 787.91 DIARRHEA 09/26/2009 PATINO DO, VALERIE K 388.70 earache 09/26/2009 PATINO DO, VALERIE K 787.91 DIARRHEA 09/26/2009 PATINO DO, VALERIE K 388.70 earache 09/26/2009 PATINO DO, VALERIE K 787.91 DIARRHEA 09/26/2009 HELLWIG MINING SPECULATOR, SHAHEEN E 388.70 earache 09/26/2009 HELLWIG MINING SPECULATOR, SHAHEEN E 787.91 DIARRHEA 09/26/2009 SHYAM DPM, ROXY 388.70 earache 09/26/2009 SHYAM DPM, ROXY 787.91 DIARRHEA 09/26/2009 HELLWIG MINING SPECULATOR SHAHEEN E 388.70 earache 09/26/2009 HELLWIG MINING SPECULATOR, SHAHEEN E 787.91 DIARRHEA 09/26/2009 PATINO DO, VALERIE K 388.70 earache 09/26/2009 PATINO DO, VALERIE K 787.91 DIARRHEA 09/26/2009 HELLWIG MINING SPECULATOR, SHAHEEN E 388.70 earache 09/26/2009 HELLWIG MINING SPECULATOR, SHAHEEN E 787.91 DIARRHEA 09/26/2009 HELLWIG MINING SPECULATOR, SHAHEEN E 388.70 earache 09/26/2009 HELLWIG MINING SPECULATOR, SHAHEEN E 787.91 DIARRHEA 09/26/2009 PATINO DO, VALERIE K 388.70 earache 09/26/2009 PATINO DO, VALERIE K 787.91 DIARRHEA 09/26/2009 PATINO DO, VALERIE K 388.70 earache 09/26/2009 PATINO DO, VALERIE K 787.91 DIARRHEA 09/26/2009 PATINO DO, VALERIE K 388.70 earache 09/26/2009 PATINO DO, VALERIE K 787.91 DIARRHEA 09/26/2009 VALERIE PATINO DO 388.70 earache 09/26/2009 VALERIE PATINO DO K 787.91 DIARRHEA 10/22/2009 Ot 250.00 10/22/2009 Ot 272.4 10/22/2009 Ot 401.9 10/22/2009 Ot 530.81 10/22/2009 Ot 786.05 10/22/2009 Ot 786.50 10/22/2009 Ot V58.69 10/31/2009 SHAMIKA GOLDBERG MD 270.7 HYPERGLYCINEMIA 10/31/2009 SHAMIKA GOLDBERG MD 357.9 NEUROPATHY UNSP 10/31/2009 SHAMIKA GOLDBERG MD 401.1 ESSENTIAL HYPERTENSION BENIGN 10/31/2009 SHAMIKA GOLDBERG MD 780.79 MALAISE AND FATIGUE 10/31/2009 SHAMIKA GOLDBERG MD 270.7 HYPERGLYCINEMIA 10/31/2009 SHAMIKA GOLDBERG MD 357.9 NEUROPATHY UNSP 10/31/2009 SHAMIKA GOLDBERG MD 401.1 ESSENTIAL HYPERTENSION BENIGN 10/31/2009 SHAMIKA GOLDBERG MD 780.79 MALAISE AND FATIGUE 10/31/2009 270.7 HYPERGLYCINEMIA 10/31/2009 357.9 NEUROPATHY UNSP 10/31/2009 401.1 ESSENTIAL HYPERTENSION BENIGN 10/31/2009 780.79 MALAISE AND FATIGUE 10/31/2009 VALERIE PATINO DO 270.7 HYPERGLYCINEMIA 10/31/2009 VALERIE PATINO DO K 357.9 NEUROPATHY UNSP 10/31/2009 VALERIE PATINO DO K 401.1 ESSENTIAL HYPERTENSION BENIGN 10/31/2009 VALERIE PATINO DO K 780.79 MALAISE AND FATIGUE 10/31/2009 270.7 HYPERGLYCINEMIA 10/31/2009 357.9 NEUROPATHY UNSP 10/31/2009 401.1 ESSENTIAL HYPERTENSION BENIGN 10/31/2009 780.79 MALAISE AND FATIGUE 10/31/2009 270.7 HYPERGLYCINEMIA 10/31/2009 357.9 NEUROPATHY UNSP 10/31/2009 401.1 ESSENTIAL HYPERTENSION BENIGN 10/31/2009 780.79 MALAISE AND FATIGUE 10/31/2009 AMADEO DONIS DO F 270.7 HYPERGLYCINEMIA 10/31/2009 AMADEO DONIS DO 357.9 NEUROPATHY UNSP 10/31/2009 AMADEO DONIS DO 401.1 ESSENTIAL HYPERTENSION BENIGN 10/31/2009 WERDER DO, AMADEO F 780.79 MALAISE AND FATIGUE 10/31/2009 SHAMIKA GOLDBERG MD 270.7 HYPERGLYCINEMIA 10/31/2009 SHAMIKA GOLDBERG MD 357.9 NEUROPATHY UNSP 10/31/2009 SHAMIKA GOLDBERG MD 401.1 ESSENTIAL HYPERTENSION BENIGN 10/31/2009 SHAMIKA GOLDBERG MD 780.79 MALAISE AND FATIGUE 10/31/2009 SHAMIKA GOLDBERG MD 270.7 HYPERGLYCINEMIA 10/31/2009 SHAMIKA GOLDBERG MD 357.9 NEUROPATHY UNSP 10/31/2009 SHAMIKA GOLDBERG MD 401.1 ESSENTIAL HYPERTENSION BENIGN 10/31/2009 SHAMIKA GOLDBERG MD 780.79 FATIGUE 10/31/2009 PATINO DO VALERIE K 270.7 HYPERGLYCINEMIA 10/31/2009 PAITNO DO VALERIE K 357.9 NEUROPATHY UNSP 10/31/2009 PATINO DO VALERIE K 401.1 ESSENTIAL HYPERTENSION BENIGN 10/31/2009 PATINO DO VALERIE K 780.79 FATIGUE 10/31/2009 270.7 HYPERGLYCINEMIA 10/31/2009 357.9 NEUROPATHY UNSP 10/31/2009 401.1 ESSENTIAL HYPERTENSION BENIGN 10/31/2009 780.79 FATIGUE 10/31/2009 270.7 HYPERGLYCINEMIA 10/31/2009 357.9 NEUROPATHY UNSP 10/31/2009 401.1 ESSENTIAL HYPERTENSION BENIGN 10/31/2009 780.79 FATIGUE 10/31/2009 270.7 HYPERGLYCINEMIA 10/31/2009 357.9 NEUROPATHY UNSP 10/31/2009 401.1 ESSENTIAL HYPERTENSION BENIGN 10/31/2009 780.79 FATIGUE 10/31/2009 270.7 HYPERGLYCINEMIA 10/31/2009 357.9 NEUROPATHY UNSP 10/31/2009 401.1 ESSENTIAL HYPERTENSION BENIGN 10/31/2009 780.79 FATIGUE 10/31/2009 270.7 HYPERGLYCINEMIA 10/31/2009 357.9 NEUROPATHY UNSP 10/31/2009 401.1 ESSENTIAL HYPERTENSION BENIGN 10/31/2009 780.79 FATIGUE 10/31/2009 270.7 HYPERGLYCINEMIA 10/31/2009 357.9 NEUROPATHY UNSP 10/31/2009 401.1 ESSENTIAL HYPERTENSION BENIGN 10/31/2009 780.79 FATIGUE 10/31/2009 270.7 HYPERGLYCINEMIA 10/31/2009 357.9 NEUROPATHY UNSP 10/31/2009 401.1 ESSENTIAL HYPERTENSION BENIGN 10/31/2009 780.79 FATIGUE 10/31/2009 PATINO DO, VALERIE K 270.7 HYPERGLYCINEMIA 10/31/2009 PATINO DO, VALERIE K 357.9 NEUROPATHY UNSP 10/31/2009 PATINO DO, VALERIE K 401.1 ESSENTIAL HYPERTENSION BENIGN 10/31/2009 PATINO DO, VALERIE K 780.79 FATIGUE 10/31/2009 PATINO DO, VALERIE K 270.7 HYPERGLYCINEMIA 10/31/2009 PATINO DO, VALERIE K 357.9 NEUROPATHY UNSP 10/31/2009 PATINO DO, VALERIE K 401.1 ESSENTIAL HYPERTENSION BENIGN 10/31/2009 PATINO DO, VALERIE K 780.79 FATIGUE 10/31/2009 PATINO DO, VALERIE K 270.7 HYPERGLYCINEMIA 10/31/2009 PATINO DO, VALERIE K 357.9 NEUROPATHY UNSP 10/31/2009 PATINO DO, VALERIE K 401.1 ESSENTIAL HYPERTENSION BENIGN 10/31/2009 PATINO DO, VALERIE K 780.79 FATIGUE 10/31/2009 PATINO DO, VALERIE K 270.7 HYPERGLYCINEMIA 10/31/2009 PATINO DO, VALERIE K 357.9 NEUROPATHY UNSP 10/31/2009 PATINO DO, VALERIE K 401.1 ESSENTIAL HYPERTENSION BENIGN 10/31/2009 PATINO DO, VALERIE K 780.79 FATIGUE 10/31/2009 PATINO DO, VALERIE K 270.7 HYPERGLYCINEMIA 10/31/2009 PATINO DO, VALERIE K 357.9 NEUROPATHY UNSP 10/31/2009 PATINO DO, VALERIE K 401.1 ESSENTIAL HYPERTENSION BENIGN 10/31/2009 PATINO DO, VALERIE K 780.79 FATIGUE 10/31/2009 PATINO DO, VALERIE K 270.7 HYPERGLYCINEMIA 10/31/2009 PATINO DO, VALERIE K 357.9 NEUROPATHY UNSP 10/31/2009 PATINO DO, VALERIE K 401.1 ESSENTIAL HYPERTENSION BENIGN 10/31/2009 PATINO DO, VALERIE K 780.79 FATIGUE 10/31/2009 PATINO DO, VALERIE K 270.7 HYPERGLYCINEMIA 10/31/2009 PATINO DO, VALERIE K 357.9 NEUROPATHY UNSP 10/31/2009 PATINO DO, VALERIE K 401.1 ESSENTIAL HYPERTENSION BENIGN 10/31/2009 PATINO DO, VALERIE K 780.79 FATIGUE 10/31/2009 PATINO DO, VALERIE K 270.7 HYPERGLYCINEMIA 10/31/2009 PATINO DO, VALERIE K 357.9 NEUROPATHY UNSP 10/31/2009 PATINO DO, VALERIE K 401.1 ESSENTIAL HYPERTENSION BENIGN 10/31/2009 PATINO DO, VALERIE K 780.79 FATIGUE 10/31/2009 PATINO DO, VALERIE K 270.7 HYPERGLYCINEMIA 10/31/2009 PATINO DO, VALERIE K 357.9 NEUROPATHY UNSP 10/31/2009 PATINO DO, VALERIE K 401.1 ESSENTIAL HYPERTENSION BENIGN 10/31/2009 PATINO DO, VALERIE K 780.79 FATIGUE 10/31/2009 FELICIANO MINING SPECULATOR, NAY R 270.7 HYPERGLYCINEMIA 10/31/2009 FELICIANO MINING SPECULATOR, NAY R 357.9 NEUROPATHY UNSP 10/31/2009 FELICIANO MINING SPECULATOR, NAY R 401.1 ESSENTIAL HYPERTENSION BENIGN 10/31/2009 FELICIANO MINING SPECULATOR, NAY R 780.79 FATIGUE 10/31/2009 PATINO DO, VALERIE K 270.7 HYPERGLYCINEMIA 10/31/2009 PATINO DO, VALERIE K 357.9 NEUROPATHY UNSP 10/31/2009 PATINO DO, VALERIE K 401.1 ESSENTIAL HYPERTENSION BENIGN 10/31/2009 PATINO DO, VALERIE K 780.79 FATIGUE 10/31/2009 PATINO DO, VALERIE K 270.7 HYPERGLYCINEMIA 10/31/2009 PATINO DO, VALERIE K 357.9 NEUROPATHY UNSP 10/31/2009 PATINO DO, VALERIE K 401.1 ESSENTIAL HYPERTENSION BENIGN 10/31/2009 PATINO DO, VALERIE K 780.79 FATIGUE 10/31/2009 HELLWIG MINING SPECULATOR, SHAHEEN E 270.7 HYPERGLYCINEMIA 10/31/2009 HELLWIG MINING SPECULATOR, SHAHEEN E 357.9 NEUROPATHY UNSP 10/31/2009 HELLWIG MINING SPECULATOR, SHAHEEN E 401.1 ESSENTIAL HYPERTENSION BENIGN 10/31/2009 HELLWIG MINING SPECULATOR, SHAHEEN E 780.79 FATIGUE 10/31/2009 NADIA DDS, TILA M 270.7 HYPERGLYCINEMIA 10/31/2009 NADIA DDS, TILA M 357.9 NEUROPATHY UNSP 10/31/2009 NADIA DDS, TILA M 401.1 ESSENTIAL HYPERTENSION BENIGN 10/31/2009 NADIA DDS, TILA M 780.79 FATIGUE 10/31/2009 PATINO DO, VALERIE K 270.7 HYPERGLYCINEMIA 10/31/2009 PATINO DO, VALERIE K 357.9 NEUROPATHY UNSP 10/31/2009 PATINO DO, VALERIE K 401.1 ESSENTIAL HYPERTENSION BENIGN 10/31/2009 PATINO DO, VALERIE K 780.79 FATIGUE 10/31/2009 PATINO DO, VALERIE K 270.7 HYPERGLYCINEMIA 10/31/2009 PATINO DO, VALERIE K 357.9 NEUROPATHY UNSP 10/31/2009 PATINO DO, VALERIE K 401.1 ESSENTIAL HYPERTENSION BENIGN 10/31/2009 PATINO DO, VALERIE K 780.79 FATIGUE 10/31/2009 HELLWIG MINING SPECULATOR, SHAHEEN E 270.7 HYPERGLYCINEMIA 10/31/2009 [facility] SHAHEEN E 357.9 NEUROPATHY UNSP 10/31/2009 [facility] SHAHEEN E 401.1 ESSENTIAL HYPERTENSION BENIGN 10/31/2009 [facility] SHAHEEN E 780.79 FATIGUE 10/31/2009 SHYAM DPM, ROXY 270.7 HYPERGLYCINEMIA 10/31/2009 SHYAM DPM, ROXY 357.9 NEUROPATHY UNSP 10/31/2009 SHYAM DPM, ROXY 401.1 ESSENTIAL HYPERTENSION BENIGN 10/31/2009 SHYAM DPM, ROXY 780.79 FATIGUE 10/31/2009 [facility] SHAHEEN E 270.7 HYPERGLYCINEMIA 10/31/2009 [facility] SHAHEEN E 357.9 NEUROPATHY UNSP 10/31/2009 [facility], SHAHEEN E 401.1 ESSENTIAL HYPERTENSION BENIGN 10/31/2009 [facility] SHAHEEN E 780.79 FATIGUE 10/31/2009 PATINO DO, VALERIE K 270.7 HYPERGLYCINEMIA 10/31/2009 PATINO DO, VALERIE K 357.9 NEUROPATHY UNSP 10/31/2009 PATINO DO, VALERIE K 401.1 ESSENTIAL HYPERTENSION BENIGN 10/31/2009 PATINO DO, VALERIE K 780.79 FATIGUE 10/31/2009 [facility] SHAHEEN E 270.7 HYPERGLYCINEMIA 10/31/2009 [facility] SHAHEEN E 357.9 NEUROPATHY UNSP 10/31/2009 [facility], SHAHEEN E 401.1 ESSENTIAL HYPERTENSION BENIGN 10/31/2009 HELLWIG MINING SPECULATOR, SHAHEEN E 780.79 FATIGUE 10/31/2009 HELLWIG MINING SPECULATOR, SHAHEEN E 270.7 HYPERGLYCINEMIA 10/31/2009 [facility] SHAHEEN E 357.9 NEUROPATHY UNSP 10/31/2009 ZAKIYAAlvinaANNA MINING SPECULATOR, SHAHEEN E 401.1 ESSENTIAL HYPERTENSION BENIGN 10/31/2009 HELAlvinaANNA MINING SPECULATOR, SHAHEEN E 780.79 FATIGUE 10/31/2009 PATINO DO, VALERIE K 270.7 HYPERGLYCINEMIA 10/31/2009 PATINO DO, VALERIE K 357.9 NEUROPATHY UNSP 10/31/2009 PATINO DO, VALERIE K 401.1 ESSENTIAL HYPERTENSION BENIGN 10/31/2009 PATINO DO, VALERIE K 780.79 FATIGUE 10/31/2009 PATINO DO, VALERIE K 270.7 HYPERGLYCINEMIA 10/31/2009 PATINO DO, VALERIE K 357.9 NEUROPATHY UNSP 10/31/2009 PATINO DO, VALERIE K 401.1 ESSENTIAL HYPERTENSION BENIGN 10/31/2009 PATINO DO, VALERIE K 780.79 FATIGUE 10/31/2009 PATINO DO, VALERIE K 270.7 HYPERGLYCINEMIA 10/31/2009 PATINO DO, VALERIE K 357.9 NEUROPATHY UNSP 10/31/2009 PATINO DO, VALERIE K 401.1 ESSENTIAL HYPERTENSION BENIGN 10/31/2009 PATINO DO, VALERIE K 780.79 FATIGUE 10/31/2009 PATINO DO, VALERIE K 270.7 HYPERGLYCINEMIA 10/31/2009 PATINO DO, VALERIE K 357.9 NEUROPATHY UNSP 10/31/2009 PATINO DO, VALERIE K 401.1 ESSENTIAL HYPERTENSION BENIGN 10/31/2009 PATINO DO, VALERIE K 780.79 FATIGUE 01/23/2010 SHAMIKA GOLDBERG MD 250.40 DIABETIC NEPHROPATHY 01/23/2010 SHAMIKA GOLDBERG MD 250.40 DIABETIC NEPHROPATHY 01/23/2010 250.40 DIABETIC NEPHROPATHY 01/23/2010 PATINO DO, VALERIE K 250.40 DIABETIC NEPHROPATHY 01/23/2010 250.40 DIABETIC NEPHROPATHY 01/23/2010 250.40 DIABETIC NEPHROPATHY 01/23/2010 AMADEO DONIS DO 250.40 DIABETIC NEPHROPATHY 01/23/2010 SHAMIKA GOLDBERG MD 250.40 DIABETIC NEPHROPATHY 01/23/2010 SHAMIKA GOLDBERG MD 250.40 DIABETIC NEPHROPATHY 01/23/2010 PATINO DO, VALERIE K 250.40 DIABETIC NEPHROPATHY 01/23/2010 250.40 DIABETIC NEPHROPATHY 01/23/2010 250.40 DIABETIC NEPHROPATHY 01/23/2010 250.40 DIABETIC NEPHROPATHY 01/23/2010 250.40 DIABETIC NEPHROPATHY 01/23/2010 250.40 DIABETIC NEPHROPATHY 01/23/2010 250.40 DIABETIC NEPHROPATHY 01/23/2010 250.40 DIABETIC NEPHROPATHY 01/23/2010 PATINO DO, VALERIE K 250.40 DIABETIC NEPHROPATHY 01/23/2010 PATINO DO, VALERIE K 250.40 DIABETIC NEPHROPATHY 01/23/2010 PATINO DO, VALERIE K 250.40 DIABETIC NEPHROPATHY 01/23/2010 PATINO DO, VALERIE K 250.40 DIABETIC NEPHROPATHY 01/23/2010 PATINO DO, VALERIE K 250.40 DIABETIC NEPHROPATHY 01/23/2010 PATINO DO, VALERIE K 250.40 DIABETIC NEPHROPATHY 01/23/2010 PATINO DO, VALERIE K 250.40 DIABETIC NEPHROPATHY 01/23/2010 PATINO DO, VALERIE K 250.40 DIABETIC NEPHROPATHY 01/23/2010 PATINO DO, VALERIE K 250.40 DIABETIC NEPHROPATHY 01/23/2010 NAY FELICIANO APRN 250.40 DIABETIC NEPHROPATHY 01/23/2010 PATINO DO, VALERIE K 250.40 DIABETIC NEPHROPATHY 01/23/2010 PATINO DO, VALERIE K 250.40 DIABETIC NEPHROPATHY 01/23/2010 IAN LOAIZA SHAHEEN E 250.40 DIABETIC NEPHROPATHY 01/23/2010 NADIA DDS, TILA M 250.40 DIABETIC NEPHROPATHY 01/23/2010 PATINO DO, VALERIE K 250.40 DIABETIC NEPHROPATHY 01/23/2010 PATINO DO, VALERIE K 250.40 DIABETIC NEPHROPATHY 01/23/2010 IAN LOAIZA SHAHEEN E 250.40 DIABETIC NEPHROPATHY 01/23/2010 SHYAM DPM, ROXY 250.40 DIABETIC NEPHROPATHY 01/23/2010 [facility] 250.40 DIABETIC NEPHROPATHY 01/23/2010 PATINO DO, VALERIE K 250.40 DIABETIC NEPHROPATHY 01/23/2010 [facility] SHA[facility] E 250.40 DIABETIC NEPHROPATHY 01/23/2010 IAN LOAIZA SHAHEEN E 250.40 DIABETIC NEPHROPATHY 01/23/2010 PATINO DO, VALERIE K 250.40 DIABETIC NEPHROPATHY 01/23/2010 PATINO DO, VALERIE K 250.40 DIABETIC NEPHROPATHY 01/23/2010 PATINO DO, VALERIE K 250.40 DIABETIC NEPHROPATHY 01/23/2010 PATINO DO, VALERIE K 250.40 DIABETIC NEPHROPATHY 04/20/2010 Ot 250.62 04/20/2010 Ot 272.4 04/20/2010 Ot 296.80 04/20/2010 Ot 300.4 04/20/2010 Ot 357.2 04/20/2010 Ot 401.9 04/20/2010 Ot 722.93 10/15/2010 SHAMIKA GOLDBERG MD 465.9 Upper Respiratory Infection 10/15/2010 SHAMIKA GOLDBERG MD 786.05 Shortness Of Breath 10/15/2010 SHAMIKA GOLDBERG MD 465.9 Upper Respiratory Infection 10/15/2010 SHAMIKA GOLDBERG MD 786.05 Shortness Of Breath 10/15/2010 465.9 Upper Respiratory Infection 10/15/2010 786.05 Shortness Of Breath 10/15/2010 VALERIE PATINO DO K 465.9 Upper Respiratory Infection 10/15/2010 PATINO DOVALERIE K 786.05 Shortness Of Breath 10/15/2010 465.9 Upper Respiratory Infection 10/15/2010 786.05 Shortness Of Breath 10/15/2010 465.9 Upper Respiratory Infection 10/15/2010 786.05 Shortness Of Breath 10/15/2010 WERAMADEO STUART DO F 465.9 Upper Respiratory Infection 10/15/2010 AMADEO DONIS DO F 786.05 Shortness Of Breath 10/15/2010 SHAMIKA GOLDBERG MD 465.9 Upper Respiratory Infection 10/15/2010 SHAMIKA GOLDBERG MD 786.05 Shortness Of Breath 10/15/2010 SHAMIKA GOLDBERG MD 465.9 Upper Respiratory Infection 10/15/2010 SHAMIKA GOLDBERG MD 786.05 Shortness Of Breath 10/15/2010 VALERIE PATINO DO K 465.9 Upper Respiratory Infection 10/15/2010 PATINO VALERIE OCONNOR K 786.05 Shortness Of Breath 10/15/2010 465.9 Upper Respiratory Infection 10/15/2010 786.05 Shortness Of Breath 10/15/2010 465.9 Upper Respiratory Infection 10/15/2010 786.05 Shortness Of Breath 10/15/2010 465.9 Upper Respiratory Infection 10/15/2010 786.05 Shortness Of Breath 10/15/2010 465.9 Upper Respiratory Infection 10/15/2010 786.05 Shortness Of Breath 10/15/2010 465.9 Upper Respiratory Infection 10/15/2010 786.05 Shortness Of Breath 10/15/2010 465.9 Upper Respiratory Infection 10/15/2010 786.05 Shortness Of Breath 10/15/2010 465.9 Upper Respiratory Infection 10/15/2010 786.05 Shortness Of Breath 10/15/2010 PATINO DO, VALERIE K 465.9 Upper Respiratory Infection 10/15/2010 PATINO DO, VALERIE K 786.05 Shortness Of Breath 10/15/2010 PATINO DO, VALERIE K 465.9 Upper Respiratory Infection 10/15/2010 PATINO DO, VALERIE K 786.05 Shortness Of Breath 10/15/2010 PATINO DO, VALERIE K 465.9 Upper Respiratory Infection 10/15/2010 PATINO DO, VALERIE K 786.05 Shortness Of Breath 10/15/2010 PATINO DO, VALERIE K 465.9 Upper Respiratory Infection 10/15/2010 PATINO DO, VALERIE K 786.05 Shortness Of Breath 10/15/2010 PATINO DO, VALERIE K 465.9 Upper Respiratory Infection 10/15/2010 PATINO DO, VALERIE K 786.05 Shortness Of Breath 10/15/2010 PATINO DO, VALERIE K 465.9 Upper Respiratory Infection 10/15/2010 PATINO DO, VALERIE K 786.05 Shortness Of Breath 10/15/2010 PATINO DO, VALERIE K 465.9 Upper Respiratory Infection 10/15/2010 PATINO DO, VALERIE K 786.05 Shortness Of Breath 10/15/2010 PATINO DO, VALERIE K 465.9 Upper Respiratory Infection 10/15/2010 PATINO DO, VALERIE K 786.05 Shortness Of Breath 10/15/2010 PATINO DO, VALERIE K 465.9 Upper Respiratory Infection 10/15/2010 PATINO DO, VALERIE K 786.05 Shortness Of Breath 10/15/2010 FELICIANO MINING SPECULATORNAY R 465.9 Upper Respiratory Infection 10/15/2010 FELICIANO MINING SPECULATORNAY R 786.05 Shortness Of Breath 10/15/2010 PATINO DO, VALERIE K 465.9 Upper Respiratory Infection 10/15/2010 PATINO DO, VALERIE K 786.05 Shortness Of Breath 10/15/2010 PATINO DO, VALERIE K 465.9 Upper Respiratory Infection 10/15/2010 PATINO DO, VALERIE K 786.05 Shortness Of Breath 10/15/2010 HELLWIG MINING SPECULATOR, SHAHEEN E 465.9 Upper Respiratory Infection 10/15/2010 HELLWIG MINING SPECULATOR, SHAHEEN E 786.05 Shortness Of Breath 10/15/2010 NADIA DDS, TILA M 465.9 Upper Respiratory Infection 10/15/2010 NADIA DDS, TILA M 786.05 Shortness Of Breath 10/15/2010 PATINO DO, VALERIE K 465.9 Upper Respiratory Infection 10/15/2010 PATINO DO, VALERIE K 786.05 Shortness Of Breath 10/15/2010 PATINO DO, VALERIE K 465.9 Upper Respiratory Infection 10/15/2010 PATINO DO, VALERIE K 786.05 Shortness Of Breath 10/15/2010 HELLWIG MINING SPECULATOR, SHAHEEN E 465.9 Upper Respiratory Infection 10/15/2010 HELLWIG MINING SPECULATOR, SHAHEEN E 786.05 Shortness Of Breath 10/15/2010 SHYAM DPM, ROXY 465.9 Upper Respiratory Infection 10/15/2010 SHYAM DPM, ROXY 786.05 Shortness Of Breath 10/15/2010 HELLWIG MINING SPECULATOR, SHAHEEN E 465.9 Upper Respiratory Infection 10/15/2010 HELLWIG MINING SPECULATOR, SHAHEEN E 786.05 Shortness Of Breath 10/15/2010 PATINO DO, VALERIE K 465.9 Upper Respiratory Infection 10/15/2010 PATINO DO, VALERIE K 786.05 Shortness Of Breath 10/15/2010 HELLWIG MINING SPECULATOR, SHAHEEN E 465.9 Upper Respiratory Infection 10/15/2010 HELLWIG MINING SPECULATOR, SHAHEEN E 786.05 Shortness Of Breath 10/15/2010 HELLWIG MINING SPECULATOR, SHAHEEN E 465.9 Upper Respiratory Infection 10/15/2010 HELLWIG MINING SPECULATOR, SHAHEEN E 786.05 Shortness Of Breath 10/15/2010 PATINO DO, VALERIE K 465.9 Upper Respiratory Infection 10/15/2010 PATINO DO, VALERIE K 786.05 Shortness Of Breath 10/15/2010 PATINO DO, VALERIE K 465.9 Upper Respiratory Infection 10/15/2010 PATINO DO, VALERIE K 786.05 Shortness Of Breath 10/15/2010 PATINO DO, VALERIE K 465.9 Upper Respiratory Infection 10/15/2010 PATINO DO, VALERIE K 786.05 Shortness Of Breath 10/15/2010 PATINO DO, VALERIE K 465.9 Upper Respiratory Infection 10/15/2010 PATINO DO, VALERIE K 786.05 Shortness Of Breath 10/25/2010 Ot 490 10/25/2010 Ot 786.2 01/27/2011 Ot 250.00 DIAB DWAINE WO COMPL, TYPE II OR UNSPEC TY 01/27/2011 Ot 272.4 HYPERLIPIDEMIA NEC/NOS 01/27/2011 Ot 276.8 HYPOPOTASSEMIA 01/27/2011 Ot 285.9 ANEMIA NOS 01/27/2011 Ot 296.20 DEPRESS DISORDER-UNSPEC 01/27/2011 Ot 300.00 ANXIETY STATE NOS 01/27/2011 Ot 577.0 ACUTE PANCREATITIS 01/27/2011 Ot 790.5 ABN SERUM ENZY LEVEL NEC 02/03/2011 SHAMIKA GOLDBERG MD 577.0 Acute Pancreatitis 02/03/2011 SHAMIKA GOLDBERG MD 577.0 Acute Pancreatitis 02/03/2011 577.0 Acute Pancreatitis 02/03/2011 PATINO DO VALERIE K 577.0 Acute Pancreatitis 02/03/2011 577.0 Acute Pancreatitis 02/03/2011 577.0 Acute Pancreatitis 02/03/2011 AMADEO DONIS DO 577.0 Acute Pancreatitis 02/03/2011 SHAMIKA GOLDBERG MD 577.0 Acute Pancreatitis 02/03/2011 SHAMIKA GOLDBERG MD 577.0 Acute Pancreatitis 02/03/2011 PATINO DO, VALERIE K 577.0 Acute Pancreatitis 02/03/2011 577.0 Acute Pancreatitis 02/03/2011 577.0 Acute Pancreatitis 02/03/2011 577.0 Acute Pancreatitis 02/03/2011 577.0 Acute Pancreatitis 02/03/2011 577.0 Acute Pancreatitis 02/03/2011 577.0 Acute Pancreatitis 02/03/2011 577.0 Acute Pancreatitis 02/03/2011 PATINO DO, VALERIE K 577.0 Acute Pancreatitis 02/03/2011 PATINO DO, VALERIE K 577.0 Acute Pancreatitis 02/03/2011 PATINO DO, VALERIE K 577.0 Acute Pancreatitis 02/03/2011 PATINO DO, VALERIE K 577.0 Acute Pancreatitis 02/03/2011 PATINO DO, VALERIE K 577.0 Acute Pancreatitis 02/03/2011 PATINO DO, VALERIE K 577.0 Acute Pancreatitis 02/03/2011 PATINO DO, VALERIE K 577.0 Acute Pancreatitis 02/03/2011 PATINO DO, VALERIE K 577.0 Acute Pancreatitis 02/03/2011 PATINO DO, VALREIE K 577.0 Acute Pancreatitis 02/03/2011 NAY FELICIANO APRN 577.0 Acute Pancreatitis 02/03/2011 PATINO DO, VALERIE K 577.0 Acute Pancreatitis 02/03/2011 PATINO DO, VALERIE K 577.0 Acute Pancreatitis 02/03/2011 HELLWIG MINING SPECULATOR, SHAHEEN E 577.0 Acute Pancreatitis 02/03/2011 NADIA DDS, TILA M 577.0 Acute Pancreatitis 02/03/2011 PATINO DO, VALERIE K 577.0 Acute Pancreatitis 02/03/2011 PATINO DO, VALERIE K 577.0 Acute Pancreatitis 02/03/2011 HELLWIG MINING SPECULATOR, SHAHEEN E 577.0 Acute Pancreatitis 02/03/2011 SHYAM DPM, ROXY 577.0 Acute Pancreatitis 02/03/2011 HELLWIG MINING SPECULATOR, SHAHEEN E 577.0 Acute Pancreatitis 02/03/2011 PATINO DO, VALERIE K 577.0 Acute Pancreatitis 02/03/2011 HELLWIG MINING SPECULATOR, SHAHEEN E 577.0 Acute Pancreatitis 02/03/2011 HELLWIG MINING SPECULATOR, SHAHEEN E 577.0 Acute Pancreatitis 02/03/2011 PATINO DO, VALERIE K 577.0 Acute Pancreatitis 02/03/2011 PATINO DO, VALERIE K 577.0 Acute Pancreatitis 02/03/2011 PATINO DO, VALERIE K 577.0 Acute Pancreatitis 02/03/2011 PATINO DO, VALERIE K 577.0 Acute Pancreatitis 03/25/2011 SHAMIKA GOLDBERG MD 784.91 Postnasal Drip 03/25/2011 SHAMIKA GOLDBERG MD 784.91 Postnasal Drip 03/25/2011 784.91 Postnasal Drip 03/25/2011 VALERIE PATINO DO K 784.91 Postnasal Drip 03/25/2011 784.91 Postnasal Drip 03/25/2011 784.91 Postnasal Drip 03/25/2011 AMADEO DONIS DO 784.91 Postnasal Drip 03/25/2011 SHAMIKA GOLDBERG MD 784.91 Postnasal Drip 03/25/2011 SHAMIKA GOLDBERG MD 784.91 Postnasal Drip 03/25/2011 VALERIE PATINO DO 784.91 Postnasal Drip 03/25/2011 784.91 Postnasal Drip 03/25/2011 784.91 Postnasal Drip 03/25/2011 784.91 Postnasal Drip 03/25/2011 784.91 Postnasal Drip 03/25/2011 784.91 Postnasal Drip 03/25/2011 784.91 Postnasal Drip 03/25/2011 784.91 Postnasal Drip 03/25/2011 PATINO DO, VALERIE K 784.91 Postnasal Drip 03/25/2011 PATINO DO, VALERIE K 784.91 Postnasal Drip 03/25/2011 PATINO DO, VALERIE K 784.91 Postnasal Drip 03/25/2011 PATINO DO, VALERIE K 784.91 Postnasal Drip 03/25/2011 PATINO DO, VALERIE K 784.91 Postnasal Drip 03/25/2011 PATINO DO, VALERIE K 784.91 Postnasal Drip 03/25/2011 PATINO DO, VALERIE K 784.91 Postnasal Drip 03/25/2011 PATINO DO, VALERIE K 784.91 Postnasal Drip 03/25/2011 PATINO DO, VALERIE K 784.91 Postnasal Drip 03/25/2011 NAY FELICIANO APRN 784.91 Postnasal Drip 03/25/2011 PATINO DO, VALERIE K 784.91 Postnasal Drip 03/25/2011 PATINO DO, VALERIE K 784.91 Postnasal Drip 03/25/2011 HELFIONA LOAIZA, SHAHEEN E 784.91 Postnasal Drip 03/25/2011 NADIA DDS, TILA M 784.91 Postnasal Drip 03/25/2011 PATINO DO, VALERIE K 784.91 Postnasal Drip 03/25/2011 PATINO DO, VALERIE K 784.91 Postnasal Drip 03/25/2011 HELFIONA MINING SPECULATOR, SHAHEEN E 784.91 Postnasal Drip 03/25/2011 SHYAM DPM, ROXY 784.91 Postnasal Drip 03/25/2011 HELFIONA MINING SPECULATOR, SHAHEEN E 784.91 Postnasal Drip 03/25/2011 PATINO DO, VALERIE K 784.91 Postnasal Drip 03/25/2011 HELLWIG MINING SPECULATOR, SHAHEEN E 784.91 Postnasal Drip 03/25/2011 HELLANNA MINING SPECULATOR, SHAHEEN E 784.91 Postnasal Drip 03/25/2011 PATINO DO, VALERIE K 784.91 Postnasal Drip 03/25/2011 VALERIE PATINO DO 784.91 Postnasal Drip 03/25/2011 VALERIE PATINO DO 784.91 Postnasal Drip 03/25/2011 VALERIE PATINO DO 784.91 Postnasal Drip 04/06/2011 Ot 250.00 DIAB DWAINE WO COMPL, TYPE II OR UNSPEC TY 04/06/2011 Ot 272.0 PURE HYPERCHOLESTEROLEM 04/06/2011 Ot 791.9 ABN URINE FINDINGS NEC 04/06/2011 Ot V58.67 LONG-TERM ( CURRENT) USE OF INSULIN 04/19/2011 Ot 924.10 CONTUSION OF LOWER LEG 04/19/2011 Ot E000.8 OTHER EXTERNAL CAUSE STATUS 04/19/2011 Ot E928.9 ACCIDENT NOS 05/13/2011 Ot 250.02 DIAB DWAINE WO COMPL, TYPE II OR UNSPEC TY 05/13/2011 Ot 338.29 OTHER CHRONIC PAIN 05/13/2011 Ot V15.81 HX OF PAST NONCOMPLIANCE 05/13/2011 Ot V58.67 LONG-TERM ( CURRENT) USE OF INSULIN 05/13/2011 Ot V58.69 OTH MED,LT, CURRENT USE 07/29/2011 SHAMIKA GOLDBERG MD 788.30 Urinary Incontinence, Unspecified 07/29/2011 SHAMIKA GOLDBERG MD 788.30 Urinary Incontinence, Unspecified 07/29/2011 788.30 Urinary Incontinence, Unspecified 07/29/2011 VALERIE PATINO DO 788.30 Urinary Incontinence, Unspecified 07/29/2011 788.30 Urinary Incontinence, Unspecified 07/29/2011 788.30 Urinary Incontinence, Unspecified 07/29/2011 AMADEO DONIS DO 788.30 Urinary Incontinence, Unspecified 07/29/2011 SHAMIKA GOLDBERG MD 788.30 Urinary Incontinence, Unspecified 07/29/2011 SHAMIKA GOLDBERG MD 788.30 Urinary Incontinence, Unspecified 07/29/2011 VALERIE PATINO DO 788.30 Urinary Incontinence, Unspecified 07/29/2011 788.30 Urinary Incontinence, Unspecified 07/29/2011 788.30 Urinary Incontinence, Unspecified 07/29/2011 788.30 Urinary Incontinence, Unspecified 07/29/2011 788.30 Urinary Incontinence, Unspecified 07/29/2011 788.30 Urinary Incontinence, Unspecified 07/29/2011 788.30 Urinary Incontinence, Unspecified 07/29/2011 788.30 Urinary Incontinence, Unspecified 07/29/2011 PATINO DO, VALERIE K 788.30 Urinary Incontinence, Unspecified 07/29/2011 PATINO DO, VALERIE K 788.30 Urinary Incontinence, Unspecified 07/29/2011 PATINO DO, VALERIE K 788.30 Urinary Incontinence, Unspecified 07/29/2011 PATINO DO, VALERIE K 788.30 Urinary Incontinence, Unspecified 07/29/2011 PATINO DO, VALERIE K 788.30 Urinary Incontinence, Unspecified 07/29/2011 PATINO DO, VALERIE K 788.30 Urinary Incontinence, Unspecified 07/29/2011 PATINO DO, VALERIE K 788.30 Urinary Incontinence, Unspecified 07/29/2011 PATINO DO, VALERIE K 788.30 Urinary Incontinence, Unspecified 07/29/2011 PATINO DO, VALERIE K 788.30 Urinary Incontinence, Unspecified 07/29/2011 NAY FELICIANO APRN 788.30 Urinary Incontinence, Unspecified 07/29/2011 PATINO DO, VALERIE K 788.30 Urinary Incontinence, Unspecified 07/29/2011 PATINO DO, VALERIE K 788.30 Urinary Incontinence, Unspecified 07/29/2011 HELLWIG MINING SPECULATOR, SHAHEEN E 788.30 Urinary Incontinence, Unspecified 07/29/2011 NADIA DDS, TIAL M 788.30 Urinary Incontinence, Unspecified 07/29/2011 PATINO DO, VALERIE K 788.30 Urinary Incontinence, Unspecified 07/29/2011 PATINO DO, VALERIE K 788.30 Urinary Incontinence, Unspecified 07/29/2011 HELLWIG MINING SPECULATOR, SHAHEEN E 788.30 Urinary Incontinence, Unspecified 07/29/2011 SHYAM DPM, ROXY 788.30 Urinary Incontinence, Unspecified 07/29/2011 HELLWIG MINING SPECULATOR, SHAHEEN E 788.30 Urinary Incontinence, Unspecified 07/29/2011 APTINO DO, VALERIE K 788.30 Urinary Incontinence, Unspecified 07/29/2011 HELLWIG MINING SPECULATOR, SHAHEEN E 788.30 Urinary Incontinence, Unspecified 07/29/2011 HELLWIG MINING SPECULATOR, SHAHEEN E 788.30 Urinary Incontinence, Unspecified 07/29/2011 PATINO DO, VALERIE K 788.30 Urinary Incontinence, Unspecified 07/29/2011 VALERIE PATINO DO K 788.30 Urinary Incontinence, Unspecified 07/29/2011 VALERIE PATINO DO K 788.30 Urinary Incontinence, Unspecified 07/29/2011 VALERIE PATINO DO K 788.30 Urinary Incontinence, Unspecified 08/04/2011 SHAMIKA GOLDBERG MD 686.9 UNSPECIFIED LOCAL INFECTION OF SKIN AND SUBCUTANEOUS TISSUE 08/04/2011 SHAMIKA GOLDBERG MD 686.9 UNSPECIFIED LOCAL INFECTION OF SKIN AND SUBCUTANEOUS TISSUE 08/04/2011 686.9 UNSPECIFIED LOCAL INFECTION OF SKIN AND SUBCUTANEOUS TISSUE 08/04/2011 VALERIE PATINO DO 686.9 UNSPECIFIED LOCAL INFECTION OF SKIN AND SUBCUTANEOUS TISSUE 08/04/2011 686.9 UNSPECIFIED LOCAL INFECTION OF SKIN AND SUBCUTANEOUS TISSUE 08/04/2011 686.9 UNSPECIFIED LOCAL INFECTION OF SKIN AND SUBCUTANEOUS TISSUE 08/04/2011 AMADEO DONIS DO 686.9 UNSPECIFIED LOCAL INFECTION OF SKIN AND SUBCUTANEOUS TISSUE 08/04/2011 SHAMIKA GOLDBERG MD 686.9 UNSPECIFIED LOCAL INFECTION OF SKIN AND SUBCUTANEOUS TISSUE 08/04/2011 SHAMIKA GOLDBERG MD 686.9 UNSPECIFIED LOCAL INFECTION OF SKIN AND SUBCUTANEOUS TISSUE 08/04/2011 VALERIE PATINO DO 686.9 UNSPECIFIED LOCAL INFECTION OF SKIN AND SUBCUTANEOUS TISSUE 08/04/2011 686.9 UNSPECIFIED LOCAL INFECTION OF SKIN AND SUBCUTANEOUS TISSUE 08/04/2011 686.9 UNSPECIFIED LOCAL INFECTION OF SKIN AND SUBCUTANEOUS TISSUE 08/04/2011 686.9 UNSPECIFIED LOCAL INFECTION OF SKIN AND SUBCUTANEOUS TISSUE 08/04/2011 686.9 UNSPECIFIED LOCAL INFECTION OF SKIN AND SUBCUTANEOUS TISSUE 08/04/2011 686.9 UNSPECIFIED LOCAL INFECTION OF SKIN AND SUBCUTANEOUS TISSUE 08/04/2011 686.9 UNSPECIFIED LOCAL INFECTION OF SKIN AND SUBCUTANEOUS TISSUE 08/04/2011 686.9 UNSPECIFIED LOCAL INFECTION OF SKIN AND SUBCUTANEOUS TISSUE 08/04/2011 VALERIE PATINO DO K 686.9 UNSPECIFIED LOCAL INFECTION OF SKIN AND SUBCUTANEOUS TISSUE 08/04/2011 VALERIE PATINO DO K 686.9 UNSPECIFIED LOCAL INFECTION OF SKIN AND SUBCUTANEOUS TISSUE 08/04/2011 VALERIE PATINO DO 686.9 UNSPECIFIED LOCAL INFECTION OF SKIN AND SUBCUTANEOUS TISSUE 08/04/2011 PATINO DO, VALERIE K 686.9 UNSPECIFIED LOCAL INFECTION OF SKIN AND SUBCUTANEOUS TISSUE 08/04/2011 PATINO DO, VALERIE K 686.9 UNSPECIFIED LOCAL INFECTION OF SKIN AND SUBCUTANEOUS TISSUE 08/04/2011 PATINO DO, VALERIE K 686.9 UNSPECIFIED LOCAL INFECTION OF SKIN AND SUBCUTANEOUS TISSUE 08/04/2011 PATINO DO, VALERIE K 686.9 UNSPECIFIED LOCAL INFECTION OF SKIN AND SUBCUTANEOUS TISSUE 08/04/2011 PATINO DO, VALERIE K 686.9 UNSPECIFIED LOCAL INFECTION OF SKIN AND SUBCUTANEOUS TISSUE 08/04/2011 PATINO DO, VALERIE K 686.9 UNSPECIFIED LOCAL INFECTION OF SKIN AND SUBCUTANEOUS TISSUE 08/04/2011 NAY FELICIANO APRN 686.9 UNSPECIFIED LOCAL INFECTION OF SKIN AND SUBCUTANEOUS TISSUE 08/04/2011 PATINO DO, VALERIE K 686.9 UNSPECIFIED LOCAL INFECTION OF SKIN AND SUBCUTANEOUS TISSUE 08/04/2011 PATINO DO, VALERIE K 686.9 UNSPECIFIED LOCAL INFECTION OF SKIN AND SUBCUTANEOUS TISSUE 08/04/2011 SHAHEEN SOSA APRN E 686.9 UNSPECIFIED LOCAL INFECTION OF SKIN AND SUBCUTANEOUS TISSUE 08/04/2011 NADIA DDSTILA 686.9 UNSPECIFIED LOCAL INFECTION OF SKIN AND SUBCUTANEOUS TISSUE 08/04/2011 PATINO DO, VALERIE K 686.9 UNSPECIFIED LOCAL INFECTION OF SKIN AND SUBCUTANEOUS TISSUE 08/04/2011 PATINO DO, VALEIRE K 686.9 UNSPECIFIED LOCAL INFECTION OF SKIN AND SUBCUTANEOUS TISSUE 08/04/2011 IAN MORENONGADIELSHAHEEN E 686.9 UNSPECIFIED LOCAL INFECTION OF SKIN AND SUBCUTANEOUS TISSUE 08/04/2011 ROXY HOWE DPM 686.9 UNSPECIFIED LOCAL INFECTION OF SKIN AND SUBCUTANEOUS TISSUE 08/04/2011 IAN MINING SPECULATOR SHAHEEN E 686.9 UNSPECIFIED LOCAL INFECTION OF SKIN AND SUBCUTANEOUS TISSUE 08/04/2011 PATINO DO, VALERIE K 686.9 UNSPECIFIED LOCAL INFECTION OF SKIN AND SUBCUTANEOUS TISSUE 08/04/2011 IAN MINING SPECULATOR SHAHEEN E 686.9 UNSPECIFIED LOCAL INFECTION OF SKIN AND SUBCUTANEOUS TISSUE 08/04/2011 HELAlvinaWIG MINING SPECULATOR SHAHEEN E 686.9 UNSPECIFIED LOCAL INFECTION OF SKIN AND SUBCUTANEOUS TISSUE 08/04/2011 PATINO DO, VALERIE K 686.9 UNSPECIFIED LOCAL INFECTION OF SKIN AND SUBCUTANEOUS TISSUE 08/04/2011 PATINO DO, VALERIE K 686.9 UNSPECIFIED LOCAL INFECTION OF SKIN AND SUBCUTANEOUS TISSUE 08/04/2011 VALERIE PATINO DO K 686.9 UNSPECIFIED LOCAL INFECTION OF SKIN AND SUBCUTANEOUS TISSUE 08/04/2011 VALERIE PATINO DO K 686.9 UNSPECIFIED LOCAL INFECTION OF SKIN AND SUBCUTANEOUS TISSUE 08/10/2011 SHAMIKA GOLDBERG MD 079.99 VIRAL SYNDROME 08/10/2011 SHAMIKA GOLDBERG MD 079.99 VIRAL SYNDROME 08/10/2011 079.99 VIRAL SYNDROME 08/10/2011 VALERIE PATINO DO K 079.99 VIRAL SYNDROME 08/10/2011 079.99 VIRAL SYNDROME 08/10/2011 079.99 VIRAL SYNDROME 08/10/2011 AMADEO DONIS DO 079.99 VIRAL SYNDROME 08/10/2011 SHAMIKA GOLDBERG MD 079.99 VIRAL SYNDROME 08/10/2011 SHAMIKA GODLBERG MD 079.99 VIRAL SYNDROME 08/10/2011 PATINO VALERIE OCONNOR K 079.99 VIRAL SYNDROME 08/10/2011 079.99 VIRAL SYNDROME 08/10/2011 079.99 VIRAL SYNDROME 08/10/2011 079.99 VIRAL SYNDROME 08/10/2011 079.99 VIRAL SYNDROME 08/10/2011 079.99 VIRAL SYNDROME 08/10/2011 079.99 VIRAL SYNDROME 08/10/2011 079.99 VIRAL SYNDROME 08/10/2011 PATINO GADIEL OCONNORA K 079.99 VIRAL SYNDROME 08/10/2011 PATINO GADIEL OCONNORA K 079.99 VIRAL SYNDROME 08/10/2011 PATINO GADIEL OCONNORA K 079.99 VIRAL SYNDROME 08/10/2011 PATINO GADIEL OCONNORA K 079.99 VIRAL SYNDROME 08/10/2011 PATINO DO VALERIE K 079.99 VIRAL SYNDROME 08/10/2011 PATINO DO VALERIE K 079.99 VIRAL SYNDROME 08/10/2011 PATINO DO VALERIE K 079.99 VIRAL SYNDROME 08/10/2011 PATINO DO VALERIE K 079.99 VIRAL SYNDROME 08/10/2011 PATINO DO VALERIE K 079.99 VIRAL SYNDROME 08/10/2011 NAY FELICIANO APRN 079.99 VIRAL SYNDROME 08/10/2011 PATINO GADIEL OCONNORA K 079.99 VIRAL SYNDROME 08/10/2011 PATINO GADIEL OCONNORA K 079.99 VIRAL SYNDROME 08/10/2011 HELLWIG MINING SPECULATOR, SHAHEEN E 079.99 VIRAL SYNDROME 08/10/2011 NADIA DDS, TILA M 079.99 VIRAL SYNDROME 08/10/2011 PATINO DO, VALERIE K 079.99 VIRAL SYNDROME 08/10/2011 PATINO DO, VALERIE K 079.99 VIRAL SYNDROME 08/10/2011 HELLWIG MINING SPECULATOR, SHAHEEN E 079.99 VIRAL SYNDROME 08/10/2011 SHYAM DPM, ROXY 079.99 VIRAL SYNDROME 08/10/2011 HELLWIG MINING SPECULATOR, SHAHEEN E 079.99 VIRAL SYNDROME 08/10/2011 PATINO DO, VALERIE K 079.99 VIRAL SYNDROME 08/10/2011 HELLANNA MINING SPECULATOR, SHAHEEN E 079.99 VIRAL SYNDROME 08/10/2011 HELLWIG MINING SPECULATOR, SHAHEEN E 079.99 VIRAL SYNDROME 08/10/2011 PATINO DO, VALERIE K 079.99 VIRAL SYNDROME 08/10/2011 PATINO DO, VALERIE K 079.99 VIRAL SYNDROME 08/10/2011 PATINO DO, VALERIE K 079.99 VIRAL SYNDROME 08/10/2011 PATINO DO, VALERIE K 079.99 VIRAL SYNDROME 08/17/2011 Ot 847.0 SPRAIN OF NECK 08/17/2011 Ot 870.8 OPN WND OCULAR ADNEX NEC 08/17/2011 Ot 959.09 INJURY OF FACE AND NECK 08/17/2011 Ot E000.8 OTHER EXTERNAL CAUSE STATUS 08/17/2011 Ot E001.0 ACTIVITIES INVOLVING WALKING, MARCHING A 08/17/2011 Ot E849.0 ACCIDENT IN HOME 08/17/2011 Ot E888.9 FALL NOS 08/22/2011 Ot 250.00 DIAB DWAINE WO COMPL, TYPE II OR UNSPEC TY 08/22/2011 Ot 272.4 HYPERLIPIDEMIA NEC/NOS 08/22/2011 Ot 401.9 HYPERTENSION NOS 08/22/2011 Ot 786.50 CHEST PAIN NOS 08/22/2011 Ot V58.67 LONG-TERM ( CURRENT) USE OF INSULIN 08/22/2011 Ot V58.69 OTH MED,LT, CURRENT USE 08/26/2011 Ot 599.0 URIN TRACT INFECTION NOS 08/26/2011 Ot 789.00 ABDOMINAL PAIN, UNSPECIFIED SITE 08/28/2011 YUSUF MC, SHAMIKA 786.50 UNSPECIFIED CHEST PAIN 08/28/2011 YUSUF MC, SHAMIKA 786.50 UNSPECIFIED CHEST PAIN 08/28/2011 786.50 UNSPECIFIED CHEST PAIN 08/28/2011 PATINO DO, VALERIE K 786.50 UNSPECIFIED CHEST PAIN 08/28/2011 786.50 UNSPECIFIED CHEST PAIN 08/28/2011 786.50 UNSPECIFIED CHEST PAIN 08/28/2011 GAGANDEEP DO AMADEO Jose Alejandro 786.50 UNSPECIFIED CHEST PAIN 08/28/2011 SHAMIKA GOLDBERG MD 786.50 UNSPECIFIED CHEST PAIN 08/28/2011 SHAMIKA GOLDBERG MD 786.50 UNSPECIFIED CHEST PAIN 08/28/2011 PATINO DO, VALERIE K 786.50 UNSPECIFIED CHEST PAIN 08/28/2011 786.50 UNSPECIFIED CHEST PAIN 08/28/2011 786.50 UNSPECIFIED CHEST PAIN 08/28/2011 786.50 UNSPECIFIED CHEST PAIN 08/28/2011 786.50 UNSPECIFIED CHEST PAIN 08/28/2011 786.50 UNSPECIFIED CHEST PAIN 08/28/2011 786.50 UNSPECIFIED CHEST PAIN 08/28/2011 786.50 UNSPECIFIED CHEST PAIN 08/28/2011 PATINO DO, VALERIE K 786.50 UNSPECIFIED CHEST PAIN 08/28/2011 PATINO DO, VALERIE K 786.50 UNSPECIFIED CHEST PAIN 08/28/2011 PATINO DO, VALERIE K 786.50 UNSPECIFIED CHEST PAIN 08/28/2011 PATINO DO, VALERIE K 786.50 UNSPECIFIED CHEST PAIN 08/28/2011 PATINO DO, VALERIE K 786.50 UNSPECIFIED CHEST PAIN 08/28/2011 PATINO DO, VALERIE K 786.50 UNSPECIFIED CHEST PAIN 08/28/2011 PATINO DO, VALERIE K 786.50 UNSPECIFIED CHEST PAIN 08/28/2011 PATINO DO, VALERIE K 786.50 UNSPECIFIED CHEST PAIN 08/28/2011 PATINO DO, VALERIE K 786.50 UNSPECIFIED CHEST PAIN 08/28/2011 NAY FELICIANO APRN 786.50 UNSPECIFIED CHEST PAIN 08/28/2011 PATINO DO, VALERIE K 786.50 UNSPECIFIED CHEST PAIN 08/28/2011 PATINO DO, VALERIE K 786.50 UNSPECIFIED CHEST PAIN 08/28/2011 SHAHEEN SOSA APRN 786.50 UNSPECIFIED CHEST PAIN 08/28/2011 NADIA RONS, TILA Nguyen 786.50 UNSPECIFIED CHEST PAIN 08/28/2011 PATINO DO, VALERIE K 786.50 UNSPECIFIED CHEST PAIN 08/28/2011 PATINO DO, VALERIE K 786.50 UNSPECIFIED CHEST PAIN 08/28/2011 HELLWIG MINING SPECULATOR, SHAHEEN E 786.50 UNSPECIFIED CHEST PAIN 08/28/2011 SHYAM DPM, ROXY 786.50 UNSPECIFIED CHEST PAIN 08/28/2011 HELWIG MINING SPECULATOR, SHAHEEN E 786.50 UNSPECIFIED CHEST PAIN 08/28/2011 PATINO DO, VALERIE K 786.50 UNSPECIFIED CHEST PAIN 08/28/2011 [facility] MINING SPECULATOR, SHAHEEN E 786.50 UNSPECIFIED CHEST PAIN 08/28/2011 HELWIG MINING SPECULATOR, SHAHEEN E 786.50 UNSPECIFIED CHEST PAIN 08/28/2011 PATINO DO, VALERIE K 786.50 UNSPECIFIED CHEST PAIN 08/28/2011 PATINO DO, VALERIE K 786.50 UNSPECIFIED CHEST PAIN 08/28/2011 PATINO DO, VALERIE K 786.50 UNSPECIFIED CHEST PAIN 08/28/2011 PATINO DO, VALERIE K 786.50 UNSPECIFIED CHEST PAIN 11/03/2011 SHAMIKA GOLDBERG MD V67.9 UNSPECIFIED FOLLOW-UP EXAMINATION 11/03/2011 SHAMIKA GOLDBERG MD V67.9 UNSPECIFIED FOLLOW-UP EXAMINATION 11/03/2011 V67.9 UNSPECIFIED FOLLOW-UP EXAMINATION 11/03/2011 PATINO DO, VALERIE K V67.9 UNSPECIFIED FOLLOW-UP EXAMINATION 11/03/2011 V67.9 UNSPECIFIED FOLLOW-UP EXAMINATION 11/03/2011 V67.9 UNSPECIFIED FOLLOW-UP EXAMINATION 11/03/2011 AMADEO DONIS DO V67.9 UNSPECIFIED FOLLOW-UP EXAMINATION 11/03/2011 SHAMIKA GOLDBERG MD V67.9 UNSPECIFIED FOLLOW-UP EXAMINATION 11/03/2011 SHAMIKA GOLDBERG MD V67.9 UNSPECIFIED FOLLOW-UP EXAMINATION 11/03/2011 PATINO , VALERIE K V67.9 UNSPECIFIED FOLLOW-UP EXAMINATION 11/03/2011 V67.9 UNSPECIFIED FOLLOW-UP EXAMINATION 11/03/2011 V67.9 UNSPECIFIED FOLLOW-UP EXAMINATION 11/03/2011 V67.9 UNSPECIFIED FOLLOW-UP EXAMINATION 11/03/2011 V67.9 UNSPECIFIED FOLLOW-UP EXAMINATION 11/03/2011 V67.9 UNSPECIFIED FOLLOW-UP EXAMINATION 11/03/2011 V67.9 UNSPECIFIED FOLLOW-UP EXAMINATION 11/03/2011 V67.9 UNSPECIFIED FOLLOW-UP EXAMINATION 11/03/2011 PATINO DO, VALERIE K V67.9 UNSPECIFIED FOLLOW-UP EXAMINATION 11/03/2011 PATINO DO, VALERIE K V67.9 UNSPECIFIED FOLLOW-UP EXAMINATION 11/03/2011 PATINO DO, VALERIE K V67.9 UNSPECIFIED FOLLOW-UP EXAMINATION 11/03/2011 PATINO DO, VALERIE K V67.9 UNSPECIFIED FOLLOW-UP EXAMINATION 11/03/2011 PATINO DO, VALERIE K V67.9 UNSPECIFIED FOLLOW-UP EXAMINATION 11/03/2011 PATINO DO, VALERIE K V67.9 UNSPECIFIED FOLLOW-UP EXAMINATION 11/03/2011 PATINO DO, VALERIE K V67.9 UNSPECIFIED FOLLOW-UP EXAMINATION 11/03/2011 PATINO DO, VALERIE K V67.9 UNSPECIFIED FOLLOW-UP EXAMINATION 11/03/2011 PATINO DO, VALERIE K V67.9 UNSPECIFIED FOLLOW-UP EXAMINATION 11/03/2011 NAY FELICIANO APRN V67.9 UNSPECIFIED FOLLOW-UP EXAMINATION 11/03/2011 PATINO DO, VALERIE K V67.9 UNSPECIFIED FOLLOW-UP EXAMINATION 11/03/2011 PATINO DO, VALERIE K V67.9 UNSPECIFIED FOLLOW-UP EXAMINATION 11/03/2011 IAN LOAIZA, SHAHEEN E V67.9 UNSPECIFIED FOLLOW-UP EXAMINATION 11/03/2011 NADIA DDS, TILA M V67.9 UNSPECIFIED FOLLOW-UP EXAMINATION 11/03/2011 PATINO DO, VALERIE K V67.9 UNSPECIFIED FOLLOW-UP EXAMINATION 11/03/2011 PATINO DO, VALERIE K V67.9 UNSPECIFIED FOLLOW-UP EXAMINATION 11/03/2011 IAN LOAIZA, SHAHEEN E V67.9 UNSPECIFIED FOLLOW-UP EXAMINATION 11/03/2011 SHYAM DPM, ROXY V67.9 UNSPECIFIED FOLLOW-UP EXAMINATION 11/03/2011 IAN MORENON, SHAHEEN E V67.9 UNSPECIFIED FOLLOW-UP EXAMINATION 11/03/2011 PATINO DO, VALERIE K V67.9 UNSPECIFIED FOLLOW-UP EXAMINATION 11/03/2011 IAN MORENON, SHAHEEN E V67.9 UNSPECIFIED FOLLOW-UP EXAMINATION 11/03/2011 IAN MORENON, SHAHEEN E V67.9 UNSPECIFIED FOLLOW-UP EXAMINATION 11/03/2011 VALERIE PATINO DO V67.9 UNSPECIFIED FOLLOW-UP EXAMINATION 11/03/2011 VALERIE PATINO DO V67.9 UNSPECIFIED FOLLOW-UP EXAMINATION 11/03/2011 VALERIE PATINO DO V67.9 UNSPECIFIED FOLLOW-UP EXAMINATION 11/03/2011 VALERIE PATINO DO V67.9 UNSPECIFIED FOLLOW-UP EXAMINATION 11/06/2011 Ot 250.02 DIAB DWAINE WO COMPL, TYPE II OR UNSPEC TY 11/06/2011 Ot 599.0 URIN TRACT INFECTION NOS 11/06/2011 Ot V58.67 LONG-TERM ( CURRENT) USE OF INSULIN 11/20/2011 Ot 250.80 DIAB W OTH SPEC MANIFEST, TYPE II OR UNS 11/20/2011 Ot 780.79 OTH MALAISE FATIGUE 11/20/2011 Ot V58.67 LONG-TERM ( CURRENT) USE OF INSULIN 11/20/2011 Ot V58.69 OTH MED,LT, CURRENT USE 01/10/2012 Ot 250.00 DIAB DWAINE WO COMPL, TYPE II OR UNSPEC TY 01/10/2012 Ot 272.4 HYPERLIPIDEMIA NEC/NOS 01/10/2012 Ot 278.00 OBESITY, NOS 01/10/2012 Ot 493.00 EXTRINSIC ASTHMA, NOS 01/10/2012 Ot 786.59 CHEST PAIN NEC 01/10/2012 Ot V13.02 PERSONAL HISTORY, URINARY (TRACT) INFECT 01/10/2012 Ot V17.3 FAM HX- ISCHEM HEART DIS 01/10/2012 Ot V58.67 LONG-TERM ( CURRENT) USE OF INSULIN 01/10/2012 Ot V58.69 OTH MED,LT, CURRENT USE 01/10/2012 Ot V85.32 BODY MASS INDEX 32.0-32.9, ADULT 01/30/2012 Ot 490 BRONCHITIS NOS 01/30/2012 Ot 786.05 SHORTNESS OF BREATH 02/26/2012 SHAMIKA GOLDBERG MD 276.51 DEHYDRATION (Na, H2O) 02/26/2012 SHAMIKA GOLDBERG MD 787.02 nausea 02/26/2012 SHAMIKA GOLDBERG MD 276.51 DEHYDRATION (Na, H2O) 02/26/2012 SHAMIKA GOLDBERG MD 787.02 nausea 02/26/2012 276.51 DEHYDRATION ( Na, H2O) 02/26/2012 787.02 nausea 02/26/2012 PATINO DO, VALERIE K 276.51 DEHYDRATION (Na, H2O) 02/26/2012 PATINO DO VALERIE K 787.02 nausea 02/26/2012 276.51 DEHYDRATION ( Na, H2O) 02/26/2012 787.02 nausea 02/26/2012 276.51 DEHYDRATION ( Na, H2O) 02/26/2012 787.02 nausea 02/26/2012 WERDER DO AMADEO F 276.51 DEHYDRATION (Na, H2O) 02/26/2012 GAGANDEEP OCONNOR AMADEO F 787.02 nausea 02/26/2012 SHAMIKA GOLDBERG MD 276.51 DEHYDRATION (Na, H2O) 02/26/2012 SHAMIKA GOLDBERG MD 787.02 nausea 02/26/2012 SHAMIKA GOLDBERG MD 276.51 DEHYDRATION (Na, H2O) 02/26/2012 SHAMIKA GOLDBERG MD 787.02 nausea 02/26/2012 VALERIE PATINO DO K 276.51 DEHYDRATION (Na, H2O) 02/26/2012 PATINO DOGADIELA K 787.02 nausea 02/26/2012 276.51 DEHYDRATION ( Na, H2O) 02/26/2012 787.02 nausea 02/26/2012 276.51 DEHYDRATION ( Na, H2O) 02/26/2012 787.02 nausea 02/26/2012 276.51 DEHYDRATION ( Na, H2O) 02/26/2012 787.02 nausea 02/26/2012 276.51 DEHYDRATION ( Na, H2O) 02/26/2012 787.02 nausea 02/26/2012 276.51 DEHYDRATION ( Na, H2O) 02/26/2012 787.02 nausea 02/26/2012 276.51 DEHYDRATION ( Na, H2O) 02/26/2012 787.02 nausea 02/26/2012 276.51 DEHYDRATION ( Na, H2O) 02/26/2012 787.02 nausea 02/26/2012 PATINO DO VALERIE K 276.51 DEHYDRATION (Na, H2O) 02/26/2012 PATINO DO VALERIE K 787.02 nausea 02/26/2012 PATINO DO VALERIE K 276.51 DEHYDRATION (Na, H2O) 02/26/2012 PATINO DO VALERIE K 787.02 nausea 02/26/2012 PATINO DO, VALERIE K 276.51 DEHYDRATION (Na, H2O) 02/26/2012 PATINO DO VALERIE K 787.02 nausea 02/26/2012 PATINO DO, VALERIE K 276.51 DEHYDRATION (Na, H2O) 02/26/2012 PATINO DO, VALERIE K 787.02 nausea 02/26/2012 PATINO DO, VALERIE K 276.51 DEHYDRATION (Na, H2O) 02/26/2012 PATINO DO, VALERIE K 787.02 nausea 02/26/2012 PATINO DO, VALERIE K 276.51 DEHYDRATION (Na, H2O) 02/26/2012 PATINO DO, VALERIE K 787.02 nausea 02/26/2012 PATINO DO, VALERIE K 276.51 DEHYDRATION (Na, H2O) 02/26/2012 PATINO DO, VALERIE K 787.02 nausea 02/26/2012 PATINO DO, VALERIE K 276.51 DEHYDRATION (Na, H2O) 02/26/2012 PATINO DO, VALERIE K 787.02 nausea 02/26/2012 PATINO DO, VALERIE K 276.51 DEHYDRATION (Na, H2O) 02/26/2012 PATINO DO, VALERIE K 787.02 nausea 02/26/2012 NAY FELICIANO APRN 276.51 DEHYDRATION (Na, H2O) 02/26/2012 NAY FELICIANO APRN 787.02 nausea 02/26/2012 PATINO DO, VALERIE K 276.51 DEHYDRATION (Na, H2O) 02/26/2012 PATINO DO, VALERIE K 787.02 nausea 02/26/2012 PATINO DO, VALERIE K 276.51 DEHYDRATION (Na, H2O) 02/26/2012 PATINO DO, VALERIE K 787.02 nausea 02/26/2012 SHAHEEN SOSA APRN E 276.51 DEHYDRATION (Na, H2O) 02/26/2012 SHAHEEN SOSA APRN E 787.02 nausea 02/26/2012 NADIA DDS, TILA M 276.51 DEHYDRATION (Na, H2O) 02/26/2012 NADIA DDS, TILA M 787.02 nausea 02/26/2012 PATINO DO, VALERIE K 276.51 DEHYDRATION (Na, H2O) 02/26/2012 PATINO DO, VALERIE K 787.02 nausea 02/26/2012 PATINO DO, VALERIE K 276.51 DEHYDRATION (Na, H2O) 02/26/2012 PATINO DO, VALERIE K 787.02 nausea 02/26/2012 SHAHEEN SOSA APRN E 276.51 DEHYDRATION (Na, H2O) 02/26/2012 [facility] MINING SPECULATOR, SHAHEEN E 787.02 nausea 02/26/2012 SHYAM DPM, ROXY 276.51 DEHYDRATION (Na, H2O) 02/26/2012 SHYAM DPM, ROXY 787.02 nausea 02/26/2012 [facility] MINING SPECULATOR, SHAHEEN E 276.51 DEHYDRATION (Na, H2O) 02/26/2012 [facility] MINING SPECULATOR, SHAHEEN E 787.02 nausea 02/26/2012 PATINO DO, VALERIE K 276.51 DEHYDRATION (Na, H2O) 02/26/2012 PATINO DO, VALERIE K 787.02 nausea 02/26/2012 [facility] MINING SPECULATOR, SHAHEEN E 276.51 DEHYDRATION (Na, H2O) 02/26/2012 [facility] MINING SPECULATOR, SHAHEEN E 787.02 nausea 02/26/2012 [facility] MINING SPECULATOR, SHAHEEN E 276.51 DEHYDRATION (Na, H2O) 02/26/2012 [facility] MINING SPECULATOR, SHAHEEN E 787.02 nausea 02/26/2012 PATINO DO, VALERIE K 276.51 DEHYDRATION (Na, H2O) 02/26/2012 PATINO DO, VALERIE K 787.02 nausea 02/26/2012 PATINO DO, VALERIE K 276.51 DEHYDRATION (Na, H2O) 02/26/2012 PATINO DO, VALERIE K 787.02 nausea 02/26/2012 PATINO DO, VALERIE K 276.51 DEHYDRATION (Na, H2O) 02/26/2012 PATINO DO, VALERIE K 787.02 nausea 02/26/2012 PATINO DO, VALERIE K 276.51 DEHYDRATION (Na, H2O) 02/26/2012 PATINO DO, VALERIE K 787.02 nausea 03/08/2012 SHAMIKA GOLDBERG MD 466.0 ACUTE BRONCHITIS 03/08/2012 SHAMIKA GOLDBERG MD 466.0 ACUTE BRONCHITIS 03/08/2012 466.0 ACUTE BRONCHITIS 03/08/2012 VALERIE PATINO DO 466.0 ACUTE BRONCHITIS 03/08/2012 466.0 ACUTE BRONCHITIS 03/08/2012 466.0 ACUTE BRONCHITIS 03/08/2012 AMADEO DONIS DO 466.0 ACUTE BRONCHITIS 03/08/2012 SHAMIKA GOLDBERG MD 466.0 ACUTE BRONCHITIS 03/08/2012 SHAMIKA GOLDBERG MD 466.0 ACUTE BRONCHITIS 03/08/2012 PATINO DO, VALERIE K 466.0 ACUTE BRONCHITIS 03/08/2012 466.0 ACUTE BRONCHITIS 03/08/2012 466.0 ACUTE BRONCHITIS 03/08/2012 466.0 ACUTE BRONCHITIS 03/08/2012 466.0 ACUTE BRONCHITIS 03/08/2012 466.0 ACUTE BRONCHITIS 03/08/2012 466.0 ACUTE BRONCHITIS 03/08/2012 466.0 ACUTE BRONCHITIS 03/08/2012 PATINO DO, VALERIE K 466.0 ACUTE BRONCHITIS 03/08/2012 PATINO DO, VALERIE K 466.0 ACUTE BRONCHITIS 03/08/2012 PATINO DO, VALERIE K 466.0 ACUTE BRONCHITIS 03/08/2012 PATINO DO, VALERIE K 466.0 ACUTE BRONCHITIS 03/08/2012 PATINO DO, VALERIE K 466.0 ACUTE BRONCHITIS 03/08/2012 PATINO DO, VALERIE K 466.0 ACUTE BRONCHITIS 03/08/2012 PATINO DO, VALERIE K 466.0 ACUTE BRONCHITIS 03/08/2012 PATINO DO, VALERIE K 466.0 ACUTE BRONCHITIS 03/08/2012 PATINO DO, VALERIE K 466.0 ACUTE BRONCHITIS 03/08/2012 NAY FELICIANO APRN 466.0 ACUTE BRONCHITIS 03/08/2012 PATINO DO, VALERIE K 466.0 ACUTE BRONCHITIS 03/08/2012 PATINO DO, VALERIE K 466.0 ACUTE BRONCHITIS 03/08/2012 HELLWIG MINING SPECULATOR, SHAHEEN E 466.0 ACUTE BRONCHITIS 03/08/2012 NADIA DDS, TILA M 466.0 ACUTE BRONCHITIS 03/08/2012 PATINO DO, VALERIE K 466.0 ACUTE BRONCHITIS 03/08/2012 PATINO DO, VALERIE K 466.0 ACUTE BRONCHITIS 03/08/2012 HELLWIG MINING SPECULATOR, SHAHEEN E 466.0 ACUTE BRONCHITIS 03/08/2012 SHYAM DPM, ROXY 466.0 ACUTE BRONCHITIS 03/08/2012 HELLWIG MINING SPECULATOR, SHAHEEN E 466.0 ACUTE BRONCHITIS 03/08/2012 PATINO DO, VALERIE K 466.0 ACUTE BRONCHITIS 03/08/2012 HELLWIG MINING SPECULATOR, SHAHEEN E 466.0 ACUTE BRONCHITIS 03/08/2012 HELLWIG MINING SPECULATOR, SHAHEEN E 466.0 ACUTE BRONCHITIS 03/08/2012 PATINO DO, VALERIE K 466.0 ACUTE BRONCHITIS 03/08/2012 PATINO DO, VALERIE K 466.0 ACUTE BRONCHITIS 03/08/2012 PATINO DO, VALERIE K 466.0 ACUTE BRONCHITIS 03/08/2012 VALERIE PATINO DO 466.0 ACUTE BRONCHITIS 04/06/2012 Ot 250.00 DIAB DWAINE WO COMPL, TYPE II OR UNSPEC TY 04/06/2012 Ot 272.4 HYPERLIPIDEMIA NEC/NOS 04/06/2012 Ot 278.00 OBESITY, NOS 04/06/2012 Ot 401.9 HYPERTENSION NOS 04/06/2012 Ot 433.10 CAROTID ARTERY OCCLUSION W O CEREBRAL IN 04/06/2012 Ot 780.2 SYNCOPE AND COLLAPSE 04/06/2012 Ot 790.4 ELEV TRANSAMINASE/LDH 04/06/2012 Ot V58.67 LONG-TERM ( CURRENT) USE OF INSULIN 04/06/2012 Ot V85.31 BODY MASS INDEX 31.0-31.9, ADULT 04/12/2012 SHAMIKA GOLDBERG MD V03.82 Need For Vaccination Pneumococcal 04/12/2012 SHAMIKA GOLDBERG MD V03.82 Need For Vaccination Pneumococcal 04/12/2012 V03.82 Need For Vaccination Pneumococcal 04/12/2012 VALERIE PATINO DO V03.82 Need For Vaccination Pneumococcal 04/12/2012 V03.82 Need For Vaccination Pneumococcal 04/12/2012 V03.82 Need For Vaccination Pneumococcal 04/12/2012 AMADEO DONIS DO V03.82 Need For Vaccination Pneumococcal 04/12/2012 SHAMIKA GOLDBERG MD V03.82 Need For Vaccination Pneumococcal 04/12/2012 SHAMIKA GOLDBERG MD V03.82 Need For Vaccination Pneumococcal 04/12/2012 VALERIE PATINO DO V03.82 Need For Vaccination Pneumococcal 04/12/2012 V03.82 Need For Vaccination Pneumococcal 04/12/2012 V03.82 Need For Vaccination Pneumococcal 04/12/2012 V03.82 Need For Vaccination Pneumococcal 04/12/2012 V03.82 Need For Vaccination Pneumococcal 04/12/2012 V03.82 Need For Vaccination Pneumococcal 04/12/2012 V03.82 Need For Vaccination Pneumococcal 04/12/2012 V03.82 Need For Vaccination Pneumococcal 04/12/2012 VALERIE PATINO DO V03.82 Need For Vaccination Pneumococcal 04/12/2012 VALERIE PATINO DO V03.82 Need For Vaccination Pneumococcal 04/12/2012 VALERIE PATINO DO V03.82 Need For Vaccination Pneumococcal 04/12/2012 VALERIE PATINO DO V03.82 Need For Vaccination Pneumococcal 04/12/2012 PATINO DO, VALERIE K V03.82 Need For Vaccination Pneumococcal 04/12/2012 PATINO DO, VALERIE K V03.82 Need For Vaccination Pneumococcal 04/12/2012 PATINO DO, VALERIE K V03.82 Need For Vaccination Pneumococcal 04/12/2012 PATINO DO, VALERIE K V03.82 Need For Vaccination Pneumococcal 04/12/2012 PATINO DO, VALERIE K V03.82 Need For Vaccination Pneumococcal 04/12/2012 NAY FELICIANO APRN V03.82 Need For Vaccination Pneumococcal 04/12/2012 PATINO DO, VALERIE K V03.82 Need For Vaccination Pneumococcal 04/12/2012 PATINO DO, VALERIE K V03.82 Need For Vaccination Pneumococcal 04/12/2012 HELLWIG MINING SPECULATORRIGO RinaldiE E V03.82 Need For Vaccination Pneumococcal 04/12/2012 NADIA DDTILA Webster M V03.82 Need For Vaccination Pneumococcal 04/12/2012 PATINO DO, VALERIE K V03.82 Need For Vaccination Pneumococcal 04/12/2012 PATINO DO, VALERIE K V03.82 Need For Vaccination Pneumococcal 04/12/2012 HELLWIG RIGO LOAIZAE E V03.82 Need For Vaccination Pneumococcal 04/12/2012 SHYAM DPM ROXY V03.82 Need For Vaccination Pneumococcal 04/12/2012 HELWIG RIGO LOAIZAE E V03.82 Need For Vaccination Pneumococcal 04/12/2012 PATINO DO, VALERIE K V03.82 Need For Vaccination Pneumococcal 04/12/2012 HELWIG MINING SPECULATORGADIEL RinaldiSIE E V03.82 Need For Vaccination Pneumococcal 04/12/2012 [facility] LOAIZAE E V03.82 Need For Vaccination Pneumococcal 04/12/2012 PATINO DO, VALERIE K V03.82 Need For Vaccination Pneumococcal 04/12/2012 PATINO DO, VALERIE K V03.82 Need For Vaccination Pneumococcal 04/12/2012 PATINO DO, VALERIE K V03.82 Need For Vaccination Pneumococcal 04/12/2012 PATINO DO, VALERIE K V03.82 Need For Vaccination Pneumococcal 04/21/2012 SHAMIKA GOLDBERG MD 479.41 joint pain, localized in the right shoulder 04/21/2012 SHAMIKA GOLDBERG MD 780.4 lightheadedness 04/21/2012 SHAMIKA GOLDBERG MD 889.41 joint pain, localized in the right shoulder 04/21/2012 SHAMIKA GOLDBERG MD 780.4 lightheadedness 04/21/2012 719.41 joint pain, localized in the right shoulder 04/21/2012 780.4 lightheadedness 04/21/2012 VALERIE PATINO DO 719.41 joint pain, localized in the right shoulder 04/21/2012 VALERIE PATINO DO 780.4 lightheadedness 04/21/2012 719.41 joint pain, localized in the right shoulder 04/21/2012 780.4 lightheadedness 04/21/2012 719.41 joint pain, localized in the right shoulder 04/21/2012 780.4 dizziness 04/21/2012 AMADEO DONIS DO 719.41 joint pain, localized in the right shoulder 04/21/2012 AMADEO DONIS DO 780.4 dizziness 04/21/2012 SHAMIKA GOLDBERG MD 719.41 joint pain, localized in the right shoulder 04/21/2012 SHAMIKA GOLDBERG MD 780.4 dizziness 04/21/2012 SHAMIKA GOLDBERG MD 719.41 joint pain, localized in the right shoulder 04/21/2012 SHAMIKA GOLDBERG MD 780.4 dizziness 04/21/2012 VALERIE PATINO DO 719.41 joint pain, localized in the right shoulder 04/21/2012 VALERIE PATINO DO 780.4 dizziness 04/21/2012 719.41 joint pain, localized in the right shoulder 04/21/2012 780.4 lightheadedness 04/21/2012 719.41 joint pain, localized in the right shoulder 04/21/2012 780.4 lightheadedness 04/21/2012 719.41 joint pain, localized in the right shoulder 04/21/2012 780.4 lightheadedness 04/21/2012 719.41 joint pain, localized in the right shoulder 04/21/2012 780.4 lightheadedness 04/21/2012 719.41 joint pain, localized in the right shoulder 04/21/2012 780.4 lightheadedness 04/21/2012 719.41 joint pain, localized in the right shoulder 04/21/2012 780.4 lightheadedness 04/21/2012 719.41 joint pain, localized in the right shoulder 04/21/2012 780.4 lightheadedness 04/21/2012 PATINO DO, VALERIE K 719.41 joint pain, localized in the right shoulder 04/21/2012 PATINO DO, VALERIE K 780.4 lightheadedness 04/21/2012 PATINO DO, VALERIE K 719.41 joint pain, localized in the right shoulder 04/21/2012 PATINO DO, VALERIE K 780.4 lightheadedness 04/21/2012 PATINO DO, VALERIE K 719.41 joint pain, localized in the right shoulder 04/21/2012 PATINO DO, VALERIE K 780.4 lightheadedness 04/21/2012 PATINO DO, VALERIE K 719.41 joint pain, localized in the right shoulder 04/21/2012 PATINO DO, VALERIE K 780.4 lightheadedness 04/21/2012 PATINO DO, VALERIE K 719.41 joint pain, localized in the right shoulder 04/21/2012 PATINO DO, VALERIE K 780.4 lightheadedness 04/21/2012 PATINO DO, VALERIE K 719.41 joint pain, localized in the right shoulder 04/21/2012 PATINO DO, VALERIE K 780.4 lightheadedness 04/21/2012 PATINO DO, VALERIE K 719.41 joint pain, localized in the right shoulder 04/21/2012 PATINO DO, VALERIE K 780.4 lightheadedness 04/21/2012 PATINO DO, VALERIE K 719.41 joint pain, localized in the right shoulder 04/21/2012 PATINO DO, VALERIE K 780.4 lightheadedness 04/21/2012 PATINO DO, VALERIE K 719.41 joint pain, localized in the right shoulder 04/21/2012 PATINO DO, VALERIE K 780.4 lightheadedness 04/21/2012 NAY FELICIANO APRN 719.41 joint pain, localized in the right shoulder 04/21/2012 NAY FELICIANO APRN 780.4 lightheadedness 04/21/2012 PATINO DO, VALERIE K 719.41 joint pain, localized in the right shoulder 04/21/2012 PATINO DO, VALERIE K 780.4 lightheadedness 04/21/2012 PATINO DO, VALERIE K 719.41 joint pain, localized in the right shoulder 04/21/2012 PATINO DO, VALERIE K 780.4 lightheadedness 04/21/2012 HELLWIG MINING SPECULATOR, SHAHEEN E 719.41 joint pain, localized in the right shoulder 04/21/2012 HELLWIG MINING SPECULATOR, SHAHEEN E 780.4 lightheadedness 04/21/2012 NADIA DDS, TILA M 719.41 joint pain, localized in the right shoulder 04/21/2012 NADIA DDS, TILA M 780.4 lightheadedness 04/21/2012 PATINO DO, VALERIE K 719.41 joint pain, localized in the right shoulder 04/21/2012 PATINO DO, VALERIE K 780.4 lightheadedness 04/21/2012 PATINO DO, VALERIE K 719.41 joint pain, localized in the right shoulder 04/21/2012 PATINO DO, VALERIE K 780.4 lightheadedness 04/21/2012 HELLWIG MINING SPECULATOR, SHAHEEN E 719.41 joint pain, localized in the right shoulder 04/21/2012 HELLWIG MINING SPECULATOR, SHAHEEN E 780.4 lightheadedness 04/21/2012 SHYAM DPM, ROXY 719.41 joint pain, localized in the right shoulder 04/21/2012 SHYAM DPM, ROXY 780.4 lightheadedness 04/21/2012 HELLWIG MINING SPECULATOR, SHAHEEN E 719.41 joint pain, localized in the right shoulder 04/21/2012 HELLWIG MINING SPECULATOR, SHAHEEN E 780.4 lightheadedness 04/21/2012 PATINO DO, VALERIE K 719.41 joint pain, localized in the right shoulder 04/21/2012 PATINO DO, VALERIE K 780.4 lightheadedness 04/21/2012 HELLWIG MINING SPECULATOR, SHAHEEN E 719.41 joint pain, localized in the right shoulder 04/21/2012 HELLWIG MINING SPECULATOR, SHAHEEN E 780.4 lightheadedness 04/21/2012 HELLWIG MINING SPECULATOR, SHAHEEN E 719.41 joint pain, localized in the right shoulder 04/21/2012 HELLWIG MINING SPECULATOR, SHAHEEN E 780.4 lightheadedness 04/21/2012 PATINO DO, VALERIE K 719.41 joint pain, localized in the right shoulder 04/21/2012 PATINO DO, VALERIE K 780.4 lightheadedness 04/21/2012 PATINO DO, VALERIE K 719.41 joint pain, localized in the right shoulder 04/21/2012 VALERIE PATINO DO 780.4 lightheadedness 04/21/2012 VALERIE PATINO DO 719.41 joint pain, localized in the right shoulder 04/21/2012 PATINO VALERIE OCONNOR 780.4 lightheadedness 04/21/2012 PATINO VALERIE OCONNOR 719.41 joint pain, localized in the right shoulder 04/21/2012 VALERIE PATINO DO 780.4 lightheadedness 07/05/2012 Ot 250.02 DIAB DWAINE WO COMPL, TYPE II OR UNSPEC TY 07/05/2012 Ot 473.9 CHRONIC SINUSITIS NOS 07/05/2012 Ot 786.2 COUGH 07/05/2012 Ot V58.67 LONG-TERM ( CURRENT) USE OF INSULIN 07/18/2012 Ot 780.2 SYNCOPE AND COLLAPSE 07/29/2012 YUSUF MC, SHAMIKA 386.10 VERTIGO, PERIPHERAL UNSPECIFIED 07/29/2012 YUSUF MC, SHAMIKA 386.10 VERTIGO, PERIPHERAL UNSPECIFIED 07/29/2012 386.10 VERTIGO, PERIPHERAL UNSPECIFIED 07/29/2012 VALERIE PATINO DO 386.10 VERTIGO, PERIPHERAL UNSPECIFIED 07/29/2012 386.10 VERTIGO, PERIPHERAL UNSPECIFIED 07/29/2012 386.10 VERTIGO, PERIPHERAL UNSPECIFIED 07/29/2012 AMADEO DONIS DO 386.10 VERTIGO, PERIPHERAL UNSPECIFIED 07/29/2012 SHAMIKA GOLDBERG MD 386.10 VERTIGO, PERIPHERAL UNSPECIFIED 07/29/2012 SHAMIKA GOLDBERG MD 386.10 VERTIGO, PERIPHERAL UNSPECIFIED 07/29/2012 VALERIE PATINO DO 386.10 VERTIGO, PERIPHERAL UNSPECIFIED 07/29/2012 386.10 VERTIGO, PERIPHERAL UNSPECIFIED 07/29/2012 386.10 VERTIGO, PERIPHERAL UNSPECIFIED 07/29/2012 386.10 VERTIGO, PERIPHERAL UNSPECIFIED 07/29/2012 386.10 VERTIGO, PERIPHERAL UNSPECIFIED 07/29/2012 386.10 VERTIGO, PERIPHERAL UNSPECIFIED 07/29/2012 386.10 VERTIGO, PERIPHERAL UNSPECIFIED 07/29/2012 386.10 VERTIGO, PERIPHERAL UNSPECIFIED 07/29/2012 VALERIE PATINO DO 386.10 VERTIGO, PERIPHERAL UNSPECIFIED 07/29/2012 VALERIE PATINO DO 386.10 VERTIGO, PERIPHERAL UNSPECIFIED 07/29/2012 PATINO DO, VALERIE K 386.10 VERTIGO, PERIPHERAL UNSPECIFIED 07/29/2012 PATINO DO, VALERIE K 386.10 VERTIGO, PERIPHERAL UNSPECIFIED 07/29/2012 PATINO DO, VALERIE K 386.10 VERTIGO, PERIPHERAL UNSPECIFIED 07/29/2012 PATINO DO, VALERIE K 386.10 VERTIGO, PERIPHERAL UNSPECIFIED 07/29/2012 PATINO DO, VALERIE K 386.10 VERTIGO, PERIPHERAL UNSPECIFIED 07/29/2012 PATINO DO, VALERIE K 386.10 VERTIGO, PERIPHERAL UNSPECIFIED 07/29/2012 PATINO DO, VALERIE K 386.10 VERTIGO, PERIPHERAL UNSPECIFIED 07/29/2012 NAY FELICIANO APRN 386.10 VERTIGO, PERIPHERAL UNSPECIFIED 07/29/2012 PATINO DO, VALERIE K 386.10 VERTIGO, PERIPHERAL UNSPECIFIED 07/29/2012 PATINO DO, VALERIE K 386.10 VERTIGO, PERIPHERAL UNSPECIFIED 07/29/2012 [facility] E 386.10 VERTIGO, PERIPHERAL UNSPECIFIED 07/29/2012 NADIA DDS, TILA M 386.10 VERTIGO, PERIPHERAL UNSPECIFIED 07/29/2012 PATINO DO, VALERIE K 386.10 VERTIGO, PERIPHERAL UNSPECIFIED 07/29/2012 PATINO DO, VALERIE K 386.10 VERTIGO, PERIPHERAL UNSPECIFIED 07/29/2012 HELLGADIEL CASTILLO APRNSIE E 386.10 VERTIGO, PERIPHERAL UNSPECIFIED 07/29/2012 SHYAM DPM, ROXY 386.10 VERTIGO, PERIPHERAL UNSPECIFIED 07/29/2012 GADIEL SOSA APRNSIE E 386.10 VERTIGO, PERIPHERAL UNSPECIFIED 07/29/2012 PATINO DO, VALERIE K 386.10 VERTIGO, PERIPHERAL UNSPECIFIED 07/29/2012 HELLWIG MINING SPECULATOR, SHAHEEN E 386.10 VERTIGO, PERIPHERAL UNSPECIFIED 07/29/2012 HELLWIG MINING SPECULATOR, SHAHEEN E 386.10 VERTIGO, PERIPHERAL UNSPECIFIED 07/29/2012 PATINO DO, VALERIE K 386.10 VERTIGO, PERIPHERAL UNSPECIFIED 07/29/2012 PATINO DO, VALERIE K 386.10 VERTIGO, PERIPHERAL UNSPECIFIED 07/29/2012 PATINO DO, VALERIE K 386.10 VERTIGO, PERIPHERAL UNSPECIFIED 07/29/2012 PATINO DO, VALERIE K 386.10 VERTIGO, PERIPHERAL UNSPECIFIED 08/12/2012 SHAMIKA GOLDBERG MD 465.9 UPPER RESPIRATORY INFECTION 08/12/2012 SHAMIKA GOLDBERG MD 465.9 UPPER RESPIRATORY INFECTION 08/12/2012 465.9 UPPER RESPIRATORY INFECTION 08/12/2012 PATINO DO, VALERIE K 465.9 UPPER RESPIRATORY INFECTION 08/12/2012 465.9 UPPER RESPIRATORY INFECTION 08/12/2012 465.9 UPPER RESPIRATORY INFECTION 08/12/2012 GAGANDEEP OCONNOR AMADEO F 465.9 UPPER RESPIRATORY INFECTION 08/12/2012 SHAMIKA GOLDBERG MD 465.9 UPPER RESPIRATORY INFECTION 08/12/2012 SHAMIKA GOLDBERG MD 465.9 UPPER RESPIRATORY INFECTION 08/12/2012 PATINO DO, VALERIE K 465.9 UPPER RESPIRATORY INFECTION 08/12/2012 465.9 UPPER RESPIRATORY INFECTION 08/12/2012 465.9 UPPER RESPIRATORY INFECTION 08/12/2012 465.9 UPPER RESPIRATORY INFECTION 08/12/2012 465.9 UPPER RESPIRATORY INFECTION 08/12/2012 465.9 UPPER RESPIRATORY INFECTION 08/12/2012 465.9 UPPER RESPIRATORY INFECTION 08/12/2012 465.9 UPPER RESPIRATORY INFECTION 08/12/2012 PATINO DO, VALERIE K 465.9 UPPER RESPIRATORY INFECTION 08/12/2012 PATINO DO, VALERIE K 465.9 UPPER RESPIRATORY INFECTION 08/12/2012 PATINO DO, VALERIE K 465.9 UPPER RESPIRATORY INFECTION 08/12/2012 PATINO DO, VALERIE K 465.9 UPPER RESPIRATORY INFECTION 08/12/2012 PATINO DO, VALERIE K 465.9 UPPER RESPIRATORY INFECTION 08/12/2012 PATINO DO, VALERIE K 465.9 UPPER RESPIRATORY INFECTION 08/12/2012 PATINO DO, VALERIE K 465.9 UPPER RESPIRATORY INFECTION 08/12/2012 PATINO DO, VALERIE K 465.9 UPPER RESPIRATORY INFECTION 08/12/2012 PATINO DO, VALERIE K 465.9 UPPER RESPIRATORY INFECTION 08/12/2012 NAY FELICIANO APRN 465.9 UPPER RESPIRATORY INFECTION 08/12/2012 PATINO DO, VALERIE K 465.9 UPPER RESPIRATORY INFECTION 08/12/2012 PATINO DO, VALERIE K 465.9 UPPER RESPIRATORY INFECTION 08/12/2012 SHAHEEN SOSA APRN 465.9 UPPER RESPIRATORY INFECTION 08/12/2012 TILA ZUNIGA DDS 465.9 UPPER RESPIRATORY INFECTION 08/12/2012 PATINO DO, VALERIE K 465.9 UPPER RESPIRATORY INFECTION 08/12/2012 PATINO DO, VALERIE K 465.9 UPPER RESPIRATORY INFECTION 08/12/2012 HELLWIG MINING SPECULATOR, SHAHEEN E 465.9 UPPER RESPIRATORY INFECTION 08/12/2012 SHYAM DPM, ROXY 465.9 UPPER RESPIRATORY INFECTION 08/12/2012 HELLWIG MINING SPECULATOR, SHAHEEN E 465.9 UPPER RESPIRATORY INFECTION 08/12/2012 PATINO DO, VALERIE K 465.9 UPPER RESPIRATORY INFECTION 08/12/2012 HELLWIG MINING SPECULATOR, SHAHEEN E 465.9 UPPER RESPIRATORY INFECTION 08/12/2012 HELLWIG MINING SPECULATOR, SHAHEEN E 465.9 UPPER RESPIRATORY INFECTION 08/12/2012 PATINO DO, VALERIE K 465.9 UPPER RESPIRATORY INFECTION 08/12/2012 PATINO DO, VALERIE K 465.9 UPPER RESPIRATORY INFECTION 08/12/2012 PATINO DO, VALERIE K 465.9 UPPER RESPIRATORY INFECTION 08/12/2012 PATINO DO, VALERIE K 465.9 UPPER RESPIRATORY INFECTION 08/25/2012 SHAMIKA GOLDBERG MD V04.81 FLU DX (3 YRS AND ABOVE, IM) 08/25/2012 SHAMIKA GOLDBERG MD V04.81 FLU DX (3 YRS AND ABOVE, IM) 08/25/2012 V04.81 FLU DX (3 YRS AND ABOVE, IM) 08/25/2012 VALERIE PATINO DO K V04.81 FLU DX (3 YRS AND ABOVE, IM) 08/25/2012 V04.81 FLU DX (3 YRS AND ABOVE, IM) 08/25/2012 V04.81 FLU DX (3 YRS AND ABOVE, IM) 08/25/2012 AMADEO DONIS DO V04.81 FLU DX (3 YRS AND ABOVE, IM) 08/25/2012 SHAMIKA GOLDBERG MD V04.81 FLU DX (3 YRS AND ABOVE, IM) 08/25/2012 SHAMIKA GOLDBERG MD V04.81 FLU DX (3 YRS AND ABOVE, IM) 08/25/2012 VALERIE PATINO DO V04.81 FLU DX (3 YRS AND ABOVE, IM) 08/25/2012 V04.81 FLU DX (3 YRS AND ABOVE, IM) 08/25/2012 V04.81 FLU DX (3 YRS AND ABOVE, IM) 08/25/2012 V04.81 FLU DX (3 YRS AND ABOVE, IM) 08/25/2012 V04.81 FLU DX (3 YRS AND ABOVE, IM) 08/25/2012 V04.81 FLU DX (3 YRS AND ABOVE, IM) 08/25/2012 V04.81 FLU DX (3 YRS AND ABOVE, IM) 08/25/2012 V04.81 FLU DX (3 YRS AND ABOVE, IM) 08/25/2012 PATINO DO, VALERIE K V04.81 FLU DX (3 YRS AND ABOVE, IM) 08/25/2012 PATINO DO, VALERIE K V04.81 FLU DX (3 YRS AND ABOVE, IM) 08/25/2012 PATINO DO, VALERIE K V04.81 FLU DX (3 YRS AND ABOVE, IM) 08/25/2012 PATINO DO, VALERIE K V04.81 FLU DX (3 YRS AND ABOVE, IM) 08/25/2012 PATINO DO, VALEIRE K V04.81 FLU DX (3 YRS AND ABOVE, IM) 08/25/2012 PATINO DO, VALERIE K V04.81 FLU DX (3 YRS AND ABOVE, IM) 08/25/2012 PATINO DO, VALERIE K V04.81 FLU DX (3 YRS AND ABOVE, IM) 08/25/2012 PATINO DO, VALERIE K V04.81 FLU DX (3 YRS AND ABOVE, IM) 08/25/2012 PATINO DO, VALERIE K V04.81 FLU DX (3 YRS AND ABOVE, IM) 08/25/2012 NAY FELICIANO APRN V04.81 FLU DX (3 YRS AND ABOVE, IM) 08/25/2012 PATINO DO, VALERIE K V04.81 FLU DX (3 YRS AND ABOVE, IM) 08/25/2012 PATINO DO, VALERIE K V04.81 FLU DX (3 YRS AND ABOVE, IM) 08/25/2012 SHAHEEN SOSA APRN V04.81 FLU DX (3 YRS AND ABOVE, IM) 08/25/2012 TILA ZUNIGA DDS V04.81 FLU DX (3 YRS AND ABOVE, IM) 08/25/2012 PATINO DO, VALERIE K V04.81 FLU DX (3 YRS AND ABOVE, IM) 08/25/2012 PATINO DO, VALERIE K V04.81 FLU DX (3 YRS AND ABOVE, IM) 08/25/2012 SHAHEEN SOSA APRN E V04.81 FLU DX (3 YRS AND ABOVE, IM) 08/25/2012 SHYAM DPM, ROXY V04.81 FLU DX (3 YRS AND ABOVE, IM) 08/25/2012 ZAKIYAFIONA MINING SPECULATOR, SHAHEEN E V04.81 FLU DX (3 YRS AND ABOVE, IM) 08/25/2012 PATINO DO, VALERIE K V04.81 FLU DX (3 YRS AND ABOVE, IM) 08/25/2012 ZAKIYAFIONA MINING SPECULATOR, SHAHEEN E V04.81 FLU DX (3 YRS AND ABOVE, IM) 08/25/2012 HELLANNA MINING SPECULATOR, SHAHEEN E V04.81 FLU DX (3 YRS AND ABOVE, IM) 08/25/2012 PATINO DO, VALERIE K V04.81 FLU DX (3 YRS AND ABOVE, IM) 08/25/2012 PATINO DO, VALERIE K V04.81 FLU DX (3 YRS AND ABOVE, IM) 08/25/2012 PATINO DO, VALERIE K V04.81 FLU DX (3 YRS AND ABOVE, IM) 08/25/2012 PATINO DO, VALERIE K V04.81 FLU DX (3 YRS AND ABOVE, IM) 09/01/2012 Ot 477.9 ALLERGIC RHINITIS NOS 09/01/2012 Ot 490 BRONCHITIS NOS 09/01/2012 Ot 786.2 COUGH 09/22/2012 SHMAIKA GOLDBERG MD 729.5 pain in the arms 09/22/2012 SHAMIKA GOLDBERG MD 729.5 pain in the arms 09/22/2012 729.5 pain in the arms 09/22/2012 VALERIE PATINO DO 729.5 pain in the arms 09/22/2012 729.5 pain in the arms 09/22/2012 729.5 pain in the arms 09/22/2012 AMADEO DONIS DO 729.5 pain in the arms 09/22/2012 SHAMIKA GOLDBERG MD 729.5 pain in the arms 09/22/2012 SHAMIKA GOLDBERG MD 729.5 pain in the arms 09/22/2012 VALERIE PATINO DO 729.5 pain in the arms 09/22/2012 729.5 pain in the arms 09/22/2012 729.5 pain in the arms 09/22/2012 729.5 pain in the arms 09/22/2012 729.5 pain in the arms 09/22/2012 729.5 pain in the arms 09/22/2012 729.5 pain in the arms 09/22/2012 729.5 pain in the arms 09/22/2012 PATINO DO, VALERIE K 729.5 pain in the arms 09/22/2012 PATINO DO, VALERIE K 729.5 pain in the arms 09/22/2012 PATINO DO, VALERIE K 729.5 pain in the arms 09/22/2012 APTINO DO, VALERIE K 729.5 pain in the arms 09/22/2012 PATINO DO, VALERIE K 729.5 pain in the arms 09/22/2012 PATINO DO, VALERIE K 729.5 pain in the arms 09/22/2012 PATINO DO, VALERIE K 729.5 pain in the arms 09/22/2012 PATINO DO, VALERIE K 729.5 pain in the arms 09/22/2012 PATINO DO, VALERIE K 729.5 pain in the arms 09/22/2012 NAY FELICIANO APRN 729.5 pain in the arms 09/22/2012 PATINO DO, VALERIE K 729.5 pain in the arms 09/22/2012 PATINO DO, VALERIE K 729.5 pain in the arms 09/22/2012 HELFIONA MINING SPECULATOR, SHAHEEN E 729.5 pain in the arms 09/22/2012 NADIA DDS, TILA M 729.5 pain in the arms 09/22/2012 PATINO DO, VALERIE K 729.5 pain in the arms 09/22/2012 PATINO DO, VALERIE K 729.5 pain in the arms 09/22/2012 IAN MINING SPECULATOR, SHAHEEN E 729.5 pain in the arms 09/22/2012 SHYAM DPMNICKIIN 729.5 pain in the arms 09/22/2012 HELLANNA MINING SPECULATOR, SHAHEEN E 729.5 pain in the arms 09/22/2012 PATINO DO, VALERIE K 729.5 pain in the arms 09/22/2012 HELLWIG MINING SPECULATOR, SHAHEEN E 729.5 pain in the arms 09/22/2012 HELLWIG MINING SPECULATOR, SHAHEEN E 729.5 pain in the arms 09/22/2012 PATINO DO, VALERIE K 729.5 pain in the arms 09/22/2012 VALERIE PATINO DO K 729.5 pain in the arms 09/22/2012 VALERIE PATINO DO K 729.5 pain in the arms 09/22/2012 VALERIE PATINO DO K 729.5 pain in the arms 10/10/2012 Ot 780.4 DIZZINESS AND GIDDINESS 10/10/2012 Ot V15.88 HISTORY OF FALL 10/20/2012 SHAMIKA GOLDBERG MD V68.01 visit for: issue medical certificate disability 10/20/2012 V68.01 visit for: issue medical certificate disability 10/20/2012 VALERIE PATINO DO K V68.01 visit for: issue medical certificate disability 10/20/2012 V68.01 visit for: issue medical certificate disability 10/20/2012 V68.01 visit for: issue medical certificate disability 10/20/2012 AMADEO DONIS DO V68.01 visit for: issue medical certificate disability 10/20/2012 SHAMIKA GOLDBERG MD V68.01 visit for: issue medical certificate disability 10/20/2012 SHAMIKA GOLDBERG MD V68.01 visit for: issue medical certificate disability 10/20/2012 VALERIE PATINO DO V68.01 visit for: issue medical certificate disability 10/20/2012 V68.01 visit for: issue medical certificate disability 10/20/2012 V68.01 visit for: issue medical certificate disability 10/20/2012 V68.01 visit for: issue medical certificate disability 10/20/2012 V68.01 visit for: issue medical certificate disability 10/20/2012 V68.01 visit for: issue medical certificate disability 10/20/2012 V68.01 visit for: issue medical certificate disability 10/20/2012 V68.01 visit for: issue medical certificate disability 10/20/2012 VALERIE PATINO DO K V68.01 visit for: issue medical certificate disability 10/20/2012 GADIEL PATINO DOA K V68.01 visit for: issue medical certificate disability 10/20/2012 GADIEL PATINO DOA K V68.01 visit for: issue medical certificate disability 10/20/2012 SUKUMAR OCONNOR VALERIE K V68.01 visit for: issue medical certificate disability 10/20/2012 GADIEL PATINO DOA K V68.01 visit for: issue medical certificate disability 10/20/2012 GADIEL PATINO DOA K V68.01 visit for: issue medical certificate disability 10/20/2012 GADIEL PATINO DOA K V68.01 visit for: issue medical certificate disability 10/20/2012 SUKUMAR OCONNOR VALERIE K V68.01 visit for: issue medical certificate disability 10/20/2012 GADIEL PATINO DOA K V68.01 visit for: issue medical certificate disability 10/20/2012 NAY FELICIANO APRN V68.01 visit for: issue medical certificate disability 10/20/2012 SUKUMAR OCONNOR VALERIE K V68.01 visit for: issue medical certificate disability 10/20/2012 SUKUMAR OCONNOR VALERIE K V68.01 visit for: issue medical certificate disability 10/20/2012 IAN LOAIZA SHAHEEN E V68.01 visit for: issue medical certificate disability 10/20/2012 TILA ZUNIGA DDS V68.01 visit for: issue medical certificate disability 10/20/2012 GADIEL PATINO DOA K V68.01 visit for: issue medical certificate disability 10/20/2012 GADIEL PATINO DOA K V68.01 visit for: issue medical certificate disability 10/20/2012 GADIEL SOSA APRNSIE E V68.01 visit for: issue medical certificate disability 10/20/2012 ROXY HOWE DPM V68.01 visit for: issue medical certificate disability 10/20/2012 RIGO SOSA APRNE E V68.01 visit for: issue medical certificate disability 10/20/2012 SUKUMAR OCONNOR VALERIE K V68.01 visit for: issue medical certificate disability 10/20/2012 IAN LOAIZA SHAHEEN E V68.01 visit for: issue medical certificate disability 10/20/2012 IAN LOAIZA SHAHEEN E V68.01 visit for: issue medical certificate disability 10/20/2012 SUKUMAR OCONNOR VALERIE K V68.01 visit for: issue medical certificate disability 10/20/2012 SUKUMAR OCONNOR VALERIE K V68.01 visit for: issue medical certificate disability 10/20/2012 SUKUMAR OCONNOR VALERIE K V68.01 visit for: issue medical certificate disability 10/20/2012 SUKUMAR OCONNOR VALERIE K V68.01 visit for: issue medical certificate disability 11/25/2012 Ot 250.62 DIAB W NEURO MANIFEST, TYPE II OR UNSPEC 11/25/2012 Ot 272.4 HYPERLIPIDEMIA NEC/NOS 11/25/2012 Ot 276.51 DEHYDRATION 11/25/2012 Ot 357.2 NEUROPATHY IN DIABETES 11/25/2012 Ot V58.67 LONG-TERM ( CURRENT) USE OF INSULIN 12/21/2012 790.6 ABNORMAL LIVER FUNCTION TEST 12/21/2012 AMADEO DONIS DO 790.6 ABNORMAL LIVER FUNCTION TEST 12/21/2012 SHAMIKA GOLDBERG MD 790.6 ABNORMAL LIVER FUNCTION TEST 12/21/2012 SHAMIKA GOLDBERG MD 790.6 ABNORMAL LIVER FUNCTION TEST 12/21/2012 PATINO DO, VALERIE K 790.6 ABNORMAL LIVER FUNCTION TEST 12/21/2012 790.6 ABNORMAL LIVER FUNCTION TEST 12/21/2012 790.6 ABNORMAL LIVER FUNCTION TEST 12/21/2012 790.6 ABNORMAL LIVER FUNCTION TEST 12/21/2012 790.6 ABNORMAL LIVER FUNCTION TEST 12/21/2012 790.6 ABNORMAL LIVER FUNCTION TEST 12/21/2012 790.6 ABNORMAL LIVER FUNCTION TEST 12/21/2012 790.6 ABNORMAL LIVER FUNCTION TEST 12/21/2012 PATINO DO, VALERIE K 790.6 ABNORMAL LIVER FUNCTION TEST 12/21/2012 PATINO DO, VALERIE K 790.6 ABNORMAL LIVER FUNCTION TEST 12/21/2012 PATINO DO, VALERIE K 790.6 ABNORMAL LIVER FUNCTION TEST 12/21/2012 PATINO DO, VALERIE K 790.6 ABNORMAL LIVER FUNCTION TEST 12/21/2012 PATINO DO, VALERIE K 790.6 ABNORMAL LIVER FUNCTION TEST 12/21/2012 PATINO DO, VALERIE K 790.6 ABNORMAL LIVER FUNCTION TEST 12/21/2012 PATINO DO, VALERIE K 790.6 ABNORMAL LIVER FUNCTION TEST 12/21/2012 PATINO DO, VALERIE K 790.6 ABNORMAL LIVER FUNCTION TEST 12/21/2012 PATINO DO, VALERIE K 790.6 ABNORMAL LIVER FUNCTION TEST 12/21/2012 NAY FELICIANO APRN 790.6 ABNORMAL LIVER FUNCTION TEST 12/21/2012 PATINO DO, VALERIE K 790.6 ABNORMAL LIVER FUNCTION TEST 12/21/2012 PATINO DO, VALERIE K 790.6 ABNORMAL LIVER FUNCTION TEST 12/21/2012 SHAHEEN SOSA APRN 790.6 ABNORMAL LIVER FUNCTION TEST 12/21/2012 TILA ZUNIGA DDS 790.6 ABNORMAL LIVER FUNCTION TEST 12/21/2012 PATINO DO, VALERIE K 790.6 ABNORMAL LIVER FUNCTION TEST 12/21/2012 PATINO DO, VALERIE K 790.6 ABNORMAL LIVER FUNCTION TEST 12/21/2012 [facility] MINING SPECULATOR, SHAHEEN E 790.6 ABNORMAL LIVER FUNCTION TEST 12/21/2012 SHYAM DPM, ROXY 790.6 ABNORMAL LIVER FUNCTION TEST 12/21/2012 [facility] MINING SPECULATOR, SHAHEEN E 790.6 ABNORMAL LIVER FUNCTION TEST 12/21/2012 PATINO DO, VALERIE K 790.6 ABNORMAL LIVER FUNCTION TEST 12/21/2012 HELLWIG MINING SPECULATOR, SHAHEEN E 790.6 ABNORMAL LIVER FUNCTION TEST 12/21/2012 HELWIG MINING SPECULATOR, SHAHEEN E 790.6 ABNORMAL LIVER FUNCTION TEST 12/21/2012 PATINO DO, VALERIE K 790.6 ABNORMAL LIVER FUNCTION TEST 12/21/2012 PATINO DO, VALERIE K 790.6 ABNORMAL LIVER FUNCTION TEST 12/21/2012 PATINO DO, VALERIE K 790.6 ABNORMAL LIVER FUNCTION TEST 12/21/2012 PATINO DO, VALERIE K 790.6 ABNORMAL LIVER FUNCTION TEST 12/28/2012 AMADEO DONIS DO 296.80 MO BIPOLAR NOS 12/28/2012 SHAMIKA GOLDBERG MD 296.80 MO BIPOLAR NOS 12/28/2012 SHAMIKA GOLDBERG MD 296.80 MO BIPOLAR NOS 12/28/2012 PATINO DO, VALERIE K 296.80 MO BIPOLAR NOS 12/28/2012 296.80 MO BIPOLAR NOS 12/28/2012 296.80 MO BIPOLAR NOS 12/28/2012 296.80 MO BIPOLAR NOS 12/28/2012 296.80 MO BIPOLAR NOS 12/28/2012 296.80 MO BIPOLAR NOS 12/28/2012 296.80 MO BIPOLAR NOS 12/28/2012 296.80 MO BIPOLAR NOS 12/28/2012 PATINO DO, VALERIE K 296.80 MO BIPOLAR NOS 12/28/2012 PATINO DO, VALERIE K 296.80 MO BIPOLAR NOS 12/28/2012 PATINO DO, VALERIE K 296.80 MO BIPOLAR NOS 12/28/2012 PATINO DO, VALERIE K 296.80 MO BIPOLAR NOS 12/28/2012 PATINO DO, VALERIE K 296.80 MO BIPOLAR NOS 12/28/2012 PATINO DO, VALERIE K 296.80 MO BIPOLAR NOS 12/28/2012 PATINO DO, VALERIE K 296.80 MO BIPOLAR NOS 12/28/2012 PATINO DO, VALERIE K 296.80 MO BIPOLAR NOS 12/28/2012 PATINO DO, VALERIE K 296.80 MO BIPOLAR NOS 12/28/2012 NAY FELICIANO APRN 296.80 MO BIPOLAR NOS 12/28/2012 PATINO DO, VALERIE K 296.80 MO BIPOLAR NOS 12/28/2012 PATINO DO, VALERIE K 296.80 MO BIPOLAR NOS 12/28/2012 [facility] SHAHEEN E 296.80 MO BIPOLAR NOS 12/28/2012 NADIA DDS, TLIA M 296.80 MO BIPOLAR NOS 12/28/2012 PATINO DO, VALERIE K 296.80 MO BIPOLAR NOS 12/28/2012 PATINO DO, VALERIE K 296.80 MO BIPOLAR NOS 12/28/2012 GADIEL SOSA APRNSIE E 296.80 MO BIPOLAR NOS 12/28/2012 SHYAM DPM, ROXY 296.80 MO BIPOLAR NOS 12/28/2012 [facility] APRNE E 296.80 MO BIPOLAR NOS 12/28/2012 PATINO DO, VALERIE K 296.80 MO BIPOLAR NOS 12/28/2012 GADIEL SOSA APRNSIE E 296.80 MO BIPOLAR NOS 12/28/2012 RIGO SOSA APRNE E 296.80 MO BIPOLAR NOS 12/28/2012 PATINO DO, VALERIE K 296.80 MO BIPOLAR NOS 12/28/2012 PATINO DO, VALERIE K 296.80 MO BIPOLAR NOS 12/28/2012 PATINO DO, VALERIE K 296.80 MO BIPOLAR NOS 12/28/2012 PATINO DO, VALERIE K 296.80 MO BIPOLAR NOS 01/09/2013 Ot 840.4 SPRAIN ROTATOR CUFF 01/09/2013 Ot E000.8 OTHER EXTERNAL CAUSE STATUS 01/09/2013 Ot E849.0 ACCIDENT IN HOME 01/09/2013 Ot E888.9 FALL NOS 01/09/2013 Ot V57.1 PHYSICAL THERAPY NEC 03/09/2013 296.90 MOOD DISORDER NOS 03/09/2013 296.90 MOOD DISORDER NOS 03/09/2013 296.90 MOOD DISORDER NOS 03/09/2013 296.90 MOOD DISORDER NOS 03/09/2013 296.90 MOOD DISORDER NOS 03/09/2013 296.90 MOOD DISORDER NOS 03/09/2013 PATINO DO, VALERIE K 296.90 MOOD DISORDER NOS 03/09/2013 PATINO DO, VALERIE K 296.90 MOOD DISORDER NOS 03/09/2013 PATINO DO, VALERIE K 296.90 MOOD DISORDER NOS 03/09/2013 PATINO DO, VALERIE K 296.90 MOOD DISORDER NOS 03/09/2013 PATINO DO, VALERIE K 296.90 MOOD DISORDER NOS 03/09/2013 PATINO DO, VALERIE K 296.90 MOOD DISORDER NOS 03/09/2013 PATINO DO, VALERIE K 296.90 MOOD DISORDER NOS 03/09/2013 PATINO DO, VALERIE K 296.90 MOOD DISORDER NOS 03/09/2013 PATINO DO, VALERIE K 296.90 MOOD DISORDER NOS 03/09/2013 NAY FELICIANO APRN 296.90 MOOD DISORDER NOS 03/09/2013 PATINO DO, VALERIE K 296.90 MOOD DISORDER NOS 03/09/2013 PATINO DO, VALERIE K 296.90 MOOD DISORDER NOS 03/09/2013 HELLWIG MINING SPECULATOR, SHAHEEN E 296.90 MOOD DISORDER NOS 03/09/2013 NADIA RONSTILA M 296.90 MOOD DISORDER NOS 03/09/2013 PATINO DO, VALERIE K 296.90 MOOD DISORDER NOS 03/09/2013 PATINO DO, VALERIE K 296.90 MOOD DISORDER NOS 03/09/2013 HELLWIG MINING SPECULATOR, SHAHEEN E 296.90 MOOD DISORDER NOS 03/09/2013 ROXY HOWE DPM 296.90 MOOD DISORDER NOS 03/09/2013 HELLWIG MINING SPECULATOR, SHAHEEN E 296.90 MOOD DISORDER NOS 03/09/2013 PATINO DO, VALERIE K 296.90 MOOD DISORDER NOS 03/09/2013 HELLWIG MINING SPECULATOR, SHAHEEN E 296.90 MOOD DISORDER NOS 03/09/2013 HELLWIG MINING SPECULATOR, SHAHEEN E 296.90 MOOD DISORDER NOS 03/09/2013 PATINO DO, VALERIE K 296.90 MOOD DISORDER NOS 03/09/2013 PATINO DO, VALERIE K 296.90 MOOD DISORDER NOS 03/09/2013 PATINO DO, VALERIE K 296.90 MOOD DISORDER NOS 03/09/2013 PATINO DO, VALERIE K 296.90 MOOD DISORDER NOS 03/23/2013 380.10 INFECTIVE OTITIS EXTERNA UNSPECIFIED 03/23/2013 461.9 SINUSITIS ACUTE 03/23/2013 726.90 ENTHESOPATHY OF UNSPECIFIED SITE 03/23/2013 380.10 INFECTIVE OTITIS EXTERNA UNSPECIFIED 03/23/2013 461.9 SINUSITIS ACUTE 03/23/2013 726.90 ENTHESOPATHY OF UNSPECIFIED SITE 03/23/2013 380.10 INFECTIVE OTITIS EXTERNA UNSPECIFIED 03/23/2013 461.9 SINUSITIS ACUTE 03/23/2013 726.90 ENTHESOPATHY OF UNSPECIFIED SITE 03/23/2013 380.10 INFECTIVE OTITIS EXTERNA UNSPECIFIED 03/23/2013 461.9 SINUSITIS ACUTE 03/23/2013 726.90 ENTHESOPATHY OF UNSPECIFIED SITE 03/23/2013 PATINO DO, VALERIE K 380.10 INFECTIVE OTITIS EXTERNA UNSPECIFIED 03/23/2013 PATINO DO, VALERIE K 461.9 SINUSITIS ACUTE 03/23/2013 PATINO DO, VALERIE K 726.90 ENTHESOPATHY OF UNSPECIFIED SITE 03/23/2013 PATINO DO, VALERIE K 380.10 INFECTIVE OTITIS EXTERNA UNSPECIFIED 03/23/2013 PATINO DO, VALERIE K 461.9 SINUSITIS ACUTE 03/23/2013 PATINO DO, VALERIE K 726.90 ENTHESOPATHY OF UNSPECIFIED SITE 03/23/2013 PATINO DO, VALERIE K 380.10 INFECTIVE OTITIS EXTERNA UNSPECIFIED 03/23/2013 PATINO DO, VALERIE K 461.9 SINUSITIS ACUTE 03/23/2013 PATINO DO, VALERIE K 726.90 ENTHESOPATHY OF UNSPECIFIED SITE 03/23/2013 PATINO DO, VALERIE K 380.10 INFECTIVE OTITIS EXTERNA UNSPECIFIED 03/23/2013 PATINO DO, VALERIE K 461.9 SINUSITIS ACUTE 03/23/2013 PATINO DO, VALERIE K 726.90 ENTHESOPATHY OF UNSPECIFIED SITE 03/23/2013 PATINO DO, VALERIE K 380.10 INFECTIVE OTITIS EXTERNA UNSPECIFIED 03/23/2013 PATINO DO, VALERIE K 461.9 SINUSITIS ACUTE 03/23/2013 PATINO DO, VALERIE K 726.90 ENTHESOPATHY OF UNSPECIFIED SITE 03/23/2013 PATINO DO, VALERIE K 380.10 INFECTIVE OTITIS EXTERNA UNSPECIFIED 03/23/2013 PATINO DO, VALERIE K 461.9 SINUSITIS ACUTE 03/23/2013 PATINO DO, VALERIE K 726.90 ENTHESOPATHY OF UNSPECIFIED SITE 03/23/2013 PATINO DO, VALERIE K 380.10 INFECTIVE OTITIS EXTERNA UNSPECIFIED 03/23/2013 SUKUMAR OCONNOR, VALERIE K 461.9 SINUSITIS ACUTE 03/23/2013 SUKUMAR OCONNOR, VALERIE K 726.90 ENTHESOPATHY OF UNSPECIFIED SITE 03/23/2013 SUKUMAR OCONNOR, VALERIE K 380.10 INFECTIVE OTITIS EXTERNA UNSPECIFIED 03/23/2013 PATINO , VALERIE K 461.9 SINUSITIS ACUTE 03/23/2013 SUKUMAR OCONNOR, VALERIE K 726.90 ENTHESOPATHY OF UNSPECIFIED SITE 03/23/2013 SUKUMAR OCONNOR VALERIE K 380.10 INFECTIVE OTITIS EXTERNA UNSPECIFIED 03/23/2013 SUKUMAR OCONNOR, VALERIE K 461.9 SINUSITIS ACUTE 03/23/2013 SUKUMAR OCONNOR, VALERIE K 726.90 ENTHESOPATHY OF UNSPECIFIED SITE 03/23/2013 NAY FELICIANO APRN 380.10 INFECTIVE OTITIS EXTERNA UNSPECIFIED 03/23/2013 NAY FELICIANO APRN 461.9 SINUSITIS ACUTE 03/23/2013 NAY FELICIANO APRN 726.90 ENTHESOPATHY OF UNSPECIFIED SITE 03/23/2013 SUKUMAR OCONNOR VALERIE K 380.10 INFECTIVE OTITIS EXTERNA UNSPECIFIED 03/23/2013 SUKUMAR OCONNOR VALERIE K 461.9 SINUSITIS ACUTE 03/23/2013 SUKUMAR OCONNOR, VALERIE K 726.90 ENTHESOPATHY OF UNSPECIFIED SITE 03/23/2013 SUKUMAR OCONNOR VALERIE K 380.10 INFECTIVE OTITIS EXTERNA UNSPECIFIED 03/23/2013 SUKUMAR OCONNOR VALERIE K 461.9 SINUSITIS ACUTE 03/23/2013 SUKUMAR OCONNOR VALERIE K 726.90 ENTHESOPATHY OF UNSPECIFIED SITE 03/23/2013 ZAKIYALSHAHEEN CASTILLO APRN E 380.10 INFECTIVE OTITIS EXTERNA UNSPECIFIED 03/23/2013 ZAKIYALSHAHEEN CASTILLO APRN E 461.9 SINUSITIS ACUTE 03/23/2013 ZAKIYALSHAHEEN CASTILLO APRN E 726.90 ENTHESOPATHY OF UNSPECIFIED SITE 03/23/2013 NADIA ASAFSTILA M 380.10 INFECTIVE OTITIS EXTERNA UNSPECIFIED 03/23/2013 NADIA ASAFSTILA 461.9 SINUSITIS ACUTE 03/23/2013 NADIA ASAFSTILA 726.90 ENTHESOPATHY OF UNSPECIFIED SITE 03/23/2013 PATINO DO VALERIE K 380.10 INFECTIVE OTITIS EXTERNA UNSPECIFIED 03/23/2013 PATINO DO, VALERIE K 461.9 SINUSITIS ACUTE 03/23/2013 PATINO DO, VALERIE K 726.90 ENTHESOPATHY OF UNSPECIFIED SITE 03/23/2013 PATINO DO, VALERIE K 380.10 INFECTIVE OTITIS EXTERNA UNSPECIFIED 03/23/2013 PATINO DO, VALERIE K 461.9 SINUSITIS ACUTE 03/23/2013 PATINO DO, VALERIE K 726.90 ENTHESOPATHY OF UNSPECIFIED SITE 03/23/2013 HELLWIG MINING SPECULATOR SHAHEEN E 380.10 INFECTIVE OTITIS EXTERNA UNSPECIFIED 03/23/2013 HELLWIG MINING SPECULATOR SHAHEEN E 461.9 SINUSITIS ACUTE 03/23/2013 HELLWIG MINING SPECULATOR SHAHEEN E 726.90 ENTHESOPATHY OF UNSPECIFIED SITE 03/23/2013 SHYAM DPM, ROXY 380.10 INFECTIVE OTITIS EXTERNA UNSPECIFIED 03/23/2013 SHYAM DPM, ROXY 461.9 SINUSITIS ACUTE 03/23/2013 SHYAM DPM, ROXY 726.90 ENTHESOPATHY OF UNSPECIFIED SITE 03/23/2013 HELLWIG MINING SPECULATOR SHAHEEN E 380.10 INFECTIVE OTITIS EXTERNA UNSPECIFIED 03/23/2013 HELLWIG MINING SPECULATORGADIELSHAHEEN E 461.9 SINUSITIS ACUTE 03/23/2013 HELLWIG MINING SPECULATOR SHAHEEN E 726.90 ENTHESOPATHY OF UNSPECIFIED SITE 03/23/2013 PATINO DO, VALERIE K 380.10 INFECTIVE OTITIS EXTERNA UNSPECIFIED 03/23/2013 PATINO DO, VALERIE K 461.9 SINUSITIS ACUTE 03/23/2013 PATINO DO, VALERIE K 726.90 ENTHESOPATHY OF UNSPECIFIED SITE 03/23/2013 HELLWIG MINING SPECULATOR SHAHEEN E 380.10 INFECTIVE OTITIS EXTERNA UNSPECIFIED 03/23/2013 HELLWIG MINING SPECULATORGADIELSHAHEEN E 461.9 SINUSITIS ACUTE 03/23/2013 HELLWIG MINING SPECULATOR SHAHEEN E 726.90 ENTHESOPATHY OF UNSPECIFIED SITE 03/23/2013 HELLWIG MINING SPECULATOR SHAHEEN E 380.10 INFECTIVE OTITIS EXTERNA UNSPECIFIED 03/23/2013 HELLWIG MINING SPECULATOR SHAHEEN E 461.9 SINUSITIS ACUTE 03/23/2013 SHAHEEN SOSA APRN 726.90 ENTHESOPATHY OF UNSPECIFIED SITE 03/23/2013 PATINO DO, VALERIE K 380.10 INFECTIVE OTITIS EXTERNA UNSPECIFIED 03/23/2013 PATINO DO, VALERIE K 461.9 SINUSITIS ACUTE 03/23/2013 PATINO DO, VALERIE K 726.90 ENTHESOPATHY OF UNSPECIFIED SITE 03/23/2013 PATINO DO, VALERIE K 380.10 INFECTIVE OTITIS EXTERNA UNSPECIFIED 03/23/2013 PATINO DO, VALERIE K 461.9 SINUSITIS ACUTE 03/23/2013 PATINO DO, VALERIE K 726.90 ENTHESOPATHY OF UNSPECIFIED SITE 03/23/2013 PATINO DO, VALERIE K 380.10 INFECTIVE OTITIS EXTERNA UNSPECIFIED 03/23/2013 PATINO DO, VALERIE K 461.9 SINUSITIS ACUTE 03/23/2013 PATINO DO, VALERIE K 726.90 ENTHESOPATHY OF UNSPECIFIED SITE 03/23/2013 PATINO DO, VALERIE K 380.10 INFECTIVE OTITIS EXTERNA UNSPECIFIED 03/23/2013 PATINO DO, VALERIE K 461.9 SINUSITIS ACUTE 03/23/2013 PATINO DO, VALERIE K 726.90 ENTHESOPATHY OF UNSPECIFIED SITE 03/30/2013 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 03/30/2013 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 03/30/2013 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 03/30/2013 PATINO DO, VALERIE K 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 03/30/2013 PATINO DO, VALERIE K 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 03/30/2013 PATINO DO, VALERIE K 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 03/30/2013 PATINO DO, VALERIE K 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 03/30/2013 PATINO DO, VALERIE K 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 03/30/2013 PATINO DO, VALERIE K 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 03/30/2013 PATINO DO, VALERIE K 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 03/30/2013 PATINO DO, VALERIE K 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 03/30/2013 PATINO DO, VALERIE K 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 03/30/2013 NAY FELICIANO APRN 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 03/30/2013 PATINO DO, VALERIE K 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 03/30/2013 PATION DO, VALERIE K 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 03/30/2013 GADIEL SOSA APRNSIE E 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 03/30/2013 TILA ZUNIGA DDS 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 03/30/2013 PATINO DO, VALERIE K 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 03/30/2013 PATINO DO, VALERIE K 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 03/30/2013 SHAHEEN SOSA APRN E 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 03/30/2013 ROXY HOWE DPM 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 03/30/2013 SHAHEEN SOSA APRN E 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 03/30/2013 PATINO DO, VALERIE K 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 03/30/2013 GADIEL SOSA APRNSIE E 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 03/30/2013 GADIEL SOSA APRNSIE E 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 03/30/2013 PATINO DO, VALERIE K 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 03/30/2013 PATINO DO, VALERIE K 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 03/30/2013 PATINO DO, VALERIE K 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 03/30/2013 PATINO DO, VALERIE K 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 04/05/2013 300.02 AN GEN ANXIETY 04/05/2013 300.02 AN GEN ANXIETY 04/05/2013 PATINO DOGADIELA K 300.02 AN GEN ANXIETY 04/05/2013 PATINO DOGADIELA K 300.02 AN GEN ANXIETY 04/05/2013 PATINO DOGADIELA K 300.02 AN GEN ANXIETY 04/05/2013 PATINO DO VALERIE K 300.02 AN GEN ANXIETY 04/05/2013 PATINO DO, VALERIE K 300.02 AN GEN ANXIETY 04/05/2013 PATINO DO, VALERIE K 300.02 AN GEN ANXIETY 04/05/2013 PATINO DO, VALERIE K 300.02 AN GEN ANXIETY 04/05/2013 PATINO DO, VALERIE K 300.02 AN GEN ANXIETY 04/05/2013 PATINO DO, VALERIE K 300.02 AN GEN ANXIETY 04/05/2013 NAY FELICIANO APRN 300.02 AN GEN ANXIETY 04/05/2013 PATINO DO, VALERIE K 300.02 AN GEN ANXIETY 04/05/2013 PATINO DO, VALERIE K 300.02 AN GEN ANXIETY 04/05/2013 HELLWIG MINING SPECULATOR, SHAHEEN E 300.02 AN GEN ANXIETY 04/05/2013 NADIA DDS, TILA M 300.02 AN GEN ANXIETY 04/05/2013 PATINO DO, VALERIE K 300.02 AN GEN ANXIETY 04/05/2013 PATINO DO, VALERIE K 300.02 AN GEN ANXIETY 04/05/2013 IAN LOAIZA SHAHEEN E 300.02 AN GEN ANXIETY 04/05/2013 SHYAM DPMROXY 300.02 AN GEN ANXIETY 04/05/2013 IAN LOAIZA SHAHEEN E 300.02 AN GEN ANXIETY 04/05/2013 PATINO DO, VALERIE K 300.02 AN GEN ANXIETY 04/05/2013 ZAKIYAANNA LOAIZA SHAHEEN E 300.02 AN GEN ANXIETY 04/05/2013 [facility] SHAHE[facility] E 300.02 AN GEN ANXIETY 04/05/2013 PATINO DO, VALERIE K 300.02 AN GEN ANXIETY 04/05/2013 PATINO DO, VALERIE K 300.02 AN GEN ANXIETY 04/05/2013 PATINO DO, VALERIE K 300.02 AN GEN ANXIETY 04/05/2013 PATINO DO, VALERIE K 300.02 AN GEN ANXIETY 07/26/2013 PATINO DO, VALERIE K 780.50 SLEEP DISTURBANCE, UNSPECIFIED 07/26/2013 PATINO DO, VALERIE K 780.50 SLEEP DISTURBANCE, UNSPECIFIED 07/26/2013 PATINO DO, VALERIE K 780.50 SLEEP DISTURBANCE, UNSPECIFIED 07/26/2013 PATINO DO, VALERIE K 780.50 SLEEP DISTURBANCE, UNSPECIFIED 07/26/2013 PATINO DO, VALERIE K 780.50 SLEEP DISTURBANCE, UNSPECIFIED 07/26/2013 PATINO DO, VALERIE K 780.50 SLEEP DISTURBANCE, UNSPECIFIED 07/26/2013 PATINO DO, VALERIE K 780.50 SLEEP DISTURBANCE, UNSPECIFIED 07/26/2013 PATINO DO, VALERIE K 780.50 SLEEP DISTURBANCE, UNSPECIFIED 07/26/2013 PATINO DO, VALERIE K 780.50 SLEEP DISTURBANCE, UNSPECIFIED 07/26/2013 NAY FELICIANO APRN 780.50 SLEEP DISTURBANCE, UNSPECIFIED 07/26/2013 PATINO DO, VALERIE K 780.50 SLEEP DISTURBANCE, UNSPECIFIED 07/26/2013 PATINO DO, VALERIE K 780.50 SLEEP DISTURBANCE, UNSPECIFIED 07/26/2013 HELLANNA MINING SPECULATOR, SHAHEEN E 780.50 SLEEP DISTURBANCE, UNSPECIFIED 07/26/2013 NADIA DDS, TILA M 780.50 SLEEP DISTURBANCE, UNSPECIFIED 07/26/2013 PATINO DO, VALERIE K 780.50 SLEEP DISTURBANCE, UNSPECIFIED 07/26/2013 PATINO DO, VALERIE K 780.50 SLEEP DISTURBANCE, UNSPECIFIED 07/26/2013 HELLANNA LOAIZA SHAHEEN E 780.50 SLEEP DISTURBANCE, UNSPECIFIED 07/26/2013 SHYAM DPMROXY 780.50 SLEEP DISTURBANCE, UNSPECIFIED 07/26/2013 HELLWIG MINING SPECULATOR, SHAHEEN E 780.50 SLEEP DISTURBANCE, UNSPECIFIED 07/26/2013 PATINO DO, VALERIE K 780.50 SLEEP DISTURBANCE, UNSPECIFIED 07/26/2013 HELLWIG MINING SPECULATOR, SHAHEEN E 780.50 SLEEP DISTURBANCE, UNSPECIFIED 07/26/2013 HELLWIG MINING SPECULATOR, SHAHEEN E 780.50 SLEEP DISTURBANCE, UNSPECIFIED 07/26/2013 PATINO DO, VALERIE K 780.50 SLEEP DISTURBANCE, UNSPECIFIED 07/26/2013 PATINO DO, VALERIE K 780.50 SLEEP DISTURBANCE, UNSPECIFIED 07/26/2013 PATINO DO, VALERIE K 780.50 SLEEP DISTURBANCE, UNSPECIFIED 07/26/2013 PATINO DO, VALERIE K 780.50 SLEEP DISTURBANCE, UNSPECIFIED 07/27/2013 PATINO DO, VALERIE K 719.44 PAIN IN JOINT INVOLVING HAND 07/27/2013 PATINO DO, VALERIE K 719.44 PAIN IN JOINT INVOLVING HAND 07/27/2013 PATINO DO, VALERIE K 719.44 PAIN IN JOINT INVOLVING HAND 07/27/2013 PATINO DO, VALERIE K 719.44 PAIN IN JOINT INVOLVING HAND 07/27/2013 PATINO DO, VALERIE K 719.44 PAIN IN JOINT INVOLVING HAND 07/27/2013 PATINO DO, VALERIE K 719.44 PAIN IN JOINT INVOLVING HAND 07/27/2013 PATINO DO, VALERIE K 719.44 PAIN IN JOINT INVOLVING HAND 07/27/2013 PATINO DO, VALERIE K 719.44 PAIN IN JOINT INVOLVING HAND 07/27/2013 PATINO DO, VALERIE K 719.44 PAIN IN JOINT INVOLVING HAND 07/27/2013 NAY FELICIANO APRN 719.44 PAIN IN JOINT INVOLVING HAND 07/27/2013 PATINO DO, VALERIE K 719.44 PAIN IN JOINT INVOLVING HAND 07/27/2013 PATINO DO, VALERIE K 719.44 PAIN IN JOINT INVOLVING HAND 07/27/2013 SHAHEEN SOSA APRN E 719.44 PAIN IN JOINT INVOLVING HAND 07/27/2013 TILA ZUNIGA DDS 719.44 PAIN IN JOINT INVOLVING HAND 07/27/2013 PATINO DO, VALERIE K 719.44 PAIN IN JOINT INVOLVING HAND 07/27/2013 PATINO DO, VALERIE K 719.44 PAIN IN JOINT INVOLVING HAND 07/27/2013 SHAHEEN SOSA APRN E 719.44 PAIN IN JOINT INVOLVING HAND 07/27/2013 ROXY HOWE DPM 719.44 PAIN IN JOINT INVOLVING HAND 07/27/2013 GADIEL SOSA APRNSIE E 719.44 PAIN IN JOINT INVOLVING HAND 07/27/2013 PATINO DO, VALERIE K 719.44 PAIN IN JOINT INVOLVING HAND 07/27/2013 GADIEL SOSA APRNSIE E 719.44 PAIN IN JOINT INVOLVING HAND 07/27/2013 GADIEL SOSA APRNSIE E 719.44 PAIN IN JOINT INVOLVING HAND 07/27/2013 PATINO DO, VALERIE K 719.44 PAIN IN JOINT INVOLVING HAND 07/27/2013 PATINO DO, VALEIRE K 719.44 PAIN IN JOINT INVOLVING HAND 07/27/2013 PATINO DO, VALERIE K 719.44 PAIN IN JOINT INVOLVING HAND 07/27/2013 PATINO DO, VALERIE K 719.44 PAIN IN JOINT INVOLVING HAND 11/01/2013 DAVID NATHAN MD Ot 250.00 DIAB DWAINE WO COMPL, TYPE II OR UNSPEC TY 11/01/2013 DAVID NATHAN MD Ot 599.0 URIN TRACT INFECTION NOS 11/01/2013 DAVID NATHAN MD Ot 790.29 OTHER ABNORMAL GLUCOSE 11/01/2013 DAVID NATHAN MD Ot V58.67 LONG-TERM (CURRENT) USE OF INSULIN 12/17/2013 POP TO MD Ot 922.31 BACK CONTUSION 12/17/2013 POP TO MD Ot 923.20 CONTUSION OF HAND(S) 12/17/2013 POP TO MD Ot 959.19 OTH INJURY OF OTHER SITES OF TRUNK 12/17/2013 POP TO MD Ot E000.8 OTHER EXTERNAL CAUSE STATUS 12/17/2013 POP TO MD Ot E849.[address] NEC 12/17/2013 POP TO MD Ot E885.9 FALL FROM SLIPPING, TRIPPING, OR STUMBLI 03/19/2014 SHAHEEN SOSA APRN 719.47 PAIN IN JOINT INVOLVING ANKLE AND FOOT 03/19/2014 TILA ZUNIGA DDS 719.47 PAIN IN JOINT INVOLVING ANKLE AND FOOT 03/19/2014 VALERIE PATINO DO 719.47 PAIN IN JOINT INVOLVING ANKLE AND FOOT 03/19/2014 VALERIE PATINO DO 719.47 PAIN IN JOINT INVOLVING ANKLE AND FOOT 03/19/2014 SHAHEEN SOSA APRN 719.47 PAIN IN JOINT INVOLVING ANKLE AND FOOT 03/19/2014 ROXY HOWE DPM 719.47 PAIN IN JOINT INVOLVING ANKLE AND FOOT 03/19/2014 SHAHEEN SOSA APRN 719.47 PAIN IN JOINT INVOLVING ANKLE AND FOOT 03/19/2014 VALERIE PATINO DO 719.47 PAIN IN JOINT INVOLVING ANKLE AND FOOT 03/19/2014 SHAHEEN SOSA APRN 719.47 PAIN IN JOINT INVOLVING ANKLE AND FOOT 03/19/2014 SHAHEEN SOSA APRN 719.47 PAIN IN JOINT INVOLVING ANKLE AND FOOT 03/19/2014 VALERIE PATINO DO 719.47 PAIN IN JOINT INVOLVING ANKLE AND FOOT 03/19/2014 VALERIE PATINO DO 719.47 PAIN IN JOINT INVOLVING ANKLE AND FOOT 03/19/2014 VALERIE PATINO DO 719.47 PAIN IN JOINT INVOLVING ANKLE AND FOOT 03/19/2014 PATINO DO, VALERIE K 719.47 PAIN IN JOINT INVOLVING ANKLE AND FOOT 04/08/2014 SANDRA MC, SHAHID Aldridge Ot 250.00 DIAB DWAINE WO COMPL, TYPE II OR UNSPEC TY 04/08/2014 SANDRA MC, SHAHID [place]ridge Ot 311 DEPRESSIVE DISORDER NEC 04/08/2014 SANDRA MC, SHAHID [place] Ot 530.81 ESOPHAGEAL REFLUX 04/08/2014 SANDRA MC, SHAHID [place]ridge Ot 682.6 CELLULITIS OF LEG 04/08/2014 SANDRA MC, SHAHID [place]ridge Ot 707.9 CHRONIC SKIN ULCER NOS 05/04/2014 PATINO DO, VALERIE K 110.1 ONYCHOMYCOSIS 05/04/2014 PATINO DO, VALERIE K 356.9 NEUROPATHY 05/04/2014 PATINO DO, VALERIE K 110.1 ONYCHOMYCOSIS 05/04/2014 PATINO DO, VALERIE K 356.9 NEUROPATHY 05/04/2014 IAN LOAIZA, SHAHEEN E 110.1 ONYCHOMYCOSIS 05/04/2014 HELLWIG MINING SPECULATOR, SHAHEEN E 356.9 NEUROPATHY 05/04/2014 SHYAM DPM, ROXY 110.1 ONYCHOMYCOSIS 05/04/2014 SHYAM DPM, ROXY 356.9 NEUROPATHY 05/04/2014 IAN MINING SPECULATOR, SHAHEEN E 110.1 ONYCHOMYCOSIS 05/04/2014 HELLWIG MINING SPECULATOR, SHAHEEN E 356.9 NEUROPATHY 05/04/2014 PATINO DO, VALERIE K 110.1 ONYCHOMYCOSIS 05/04/2014 PATINO DO, VALERIE K 356.9 NEUROPATHY 05/04/2014 HELLWIG MINING SPECULATOR, SHAHEEN E 110.1 ONYCHOMYCOSIS 05/04/2014 HELLWIG MINING SPECULATOR, SHAHEEN E 356.9 NEUROPATHY 05/04/2014 HELLWIG MINING SPECULATOR, SHAHEEN E 110.1 ONYCHOMYCOSIS 05/04/2014 HELLWIG MINING SPECULATOR SHAHEEN E 356.9 NEUROPATHY 05/04/2014 PATINO DO, VALERIE K 110.1 ONYCHOMYCOSIS 05/04/2014 PATINO DO, VALERIE K 356.9 NEUROPATHY 05/04/2014 PATINO DO, VALERIE K 110.1 ONYCHOMYCOSIS 05/04/2014 PATINO DO, VALERIE K 356.9 NEUROPATHY 05/04/2014 PATINO DO, VALERIE K 110.1 ONYCHOMYCOSIS 05/04/2014 PATINO DO, VALERIE K 356.9 NEUROPATHY 05/04/2014 PATINO DO, VALERIE K 110.1 ONYCHOMYCOSIS 05/04/2014 PATINO DO, VALERIE K 356.9 NEUROPATHY 06/15/2014 ELVA ÁLVAREZ MINING SPECULATOR Ot 845.00 SPRAIN OF ANKLE NOS 06/15/2014 ELVA ÁLVAREZ MINING SPECULATOR Ot E880.9 FALL ON STAIR/STEP NEC 07/15/2014 BABATUNDE MORRISSEY Ot 250.00 DIAB DWAINE WO COMPL, TYPE II OR UNSPEC TY 07/15/2014 BABATUNDE MORRISSEY Ot 382.9 OTITIS MEDIA NOS 07/15/2014 BABATUNDE MORRISSEY Ot 599.0 URIN TRACT INFECTION NOS 07/15/2014 BABATUNDE MORRISSEY Ot 780.4 DIZZINESS AND GIDDINESS 07/15/2014 BABATUNDE MORRISSEY Ot 782.0 SKIN SENSATION DISTURB 07/15/2014 BABATUNDE MORRISSEY Ot V58.69 OT MED,LT,CURRENT USE 07/27/2014 SHYAM DPM, ROXY 845.03 SPRAIN LAT ANKLE 07/27/2014 SHAHEEN SOSA APRN 845.03 SPRAIN LAT ANKLE 07/27/2014 SUKUMAR OCONNOR VALERIE K 845.03 SPRAIN LAT ANKLE 07/27/2014 SHAHEEN SOSA APRN 845.03 SPRAIN LAT ANKLE 07/27/2014 SHAHEEN SOSA APRN 845.03 SPRAIN LAT ANKLE 07/27/2014 PATINO DO, VALERIE K 845.03 SPRAIN LAT ANKLE 07/27/2014 PATINO DO, VALERIE K 845.03 SPRAIN LAT ANKLE 07/27/2014 PATINO DO, VALERIE K 845.03 SPRAIN LAT ANKLE 07/27/2014 PATINO DO, VALERIE K 845.03 SPRAIN LAT ANKLE 11/03/2014 SHAHEEN SOSA APRN 487.1 INFLUENZA WITH OTHER RESPIRATORY MANIFESTATIONS 11/03/2014 SHAHEEN SOSA APRN 487.1 INFLUENZA WITH OTHER RESPIRATORY MANIFESTATIONS 11/03/2014 VALERIE PATINO DO 487.1 INFLUENZA WITH OTHER RESPIRATORY MANIFESTATIONS 11/03/2014 VALERIE PATINO DO 487.1 INFLUENZA WITH OTHER RESPIRATORY MANIFESTATIONS 11/03/2014 VALERIE PATINO DO 487.1 INFLUENZA WITH OTHER RESPIRATORY MANIFESTATIONS 11/03/2014 VALERIE PATINO DO 487.1 INFLUENZA WITH OTHER RESPIRATORY MANIFESTATIONS 11/13/2014 JAC MC, DAVID James Ot 250.00 DIAB DWAINE WO COMPL, TYPE II OR UNSPEC TY 11/13/2014 DAVID NATHAN MD Ot 272.0 PURE HYPERCHOLESTEROLEM 11/13/2014 DAVID NATHAN MD Ot 401.9 HYPERTENSION NOS 11/13/2014 JAC MC, DAVID James Ot V58.67 LONG-TERM (CURRENT) USE OF INSULIN 01/25/2015 VALERIE PATINO DO 709.8 FISSURES SKIN 01/25/2015 VALERIE PATINO DO 735.4 HAMMER TOE (ACQUIRED) 01/25/2015 VALERIE PATINO DO 709.8 FISSURES SKIN 01/25/2015 VALERIE PATINO DO 735.4 HAMMER TOE (ACQUIRED) 01/25/2015 VALERIE PATINO DO 709.8 FISSURES SKIN 01/25/2015 VALERIE PATINO DO K 735.4 HAMMER TOE (ACQUIRED) 01/29/2015 VALERIE PATINO DO V72.31 FILTRATION SUPERVISOR EXAM, ROUTINE 01/29/2015 VALERIE PATINO DO K V76.10 BREAST CANCER SCREENING 01/29/2015 VALERIE PATINO DO K V76.51 COLON CANCER SCREENING 01/29/2015 VALERIE PATINO DO V72.31 FILTRATION SUPERVISOR EXAM, ROUTINE 01/29/2015 VALERIE PATINO DO K V76.10 BREAST CANCER SCREENING 01/29/2015 GADIEL PATINO DOA K V76.51 COLON CANCER SCREENING 01/29/2015 GADIEL PATINO DOA K V72.31 FILTRATION SUPERVISOR EXAM, ROUTINE 01/29/2015 GADIEL PATINO DOA K V76.10 BREAST CANCER SCREENING 01/29/2015 PATINO GADIEL OCONNORA K V76.51 COLON CANCER SCREENING 02/05/2015 AMBER HERNANDEZ MD Ot 250.00 DIAB DWAINE WO COMPL, TYPE II OR UNSPEC TY 02/05/2015 AMBER HERNANDEZ MD Ot 433.10 CAROTID ARTERY OCCLUSION W O CEREBRAL IN 02/05/2015 AMBER HERNANDEZ MD Ot 780.2 SYNCOPE AND COLLAPSE 02/05/2015 AMBER HERNANDEZ MD Ot V58.67 LONG-TERM (CURRENT) USE OF INSULIN 02/07/2015 VALERIE PATINO DO 780.2 SYNCOPE AND COLLAPSE 02/07/2015 VALERIE PATINO DO 780.2 SYNCOPE AND COLLAPSE 02/12/2015 Ot V76.12 02/12/2015 Ot 722.52 02/12/2015 Ot V45.4 02/12/2015 Ot V81.5 02/12/2015 Ot 780.2 02/12/2015 Ot 780.2 02/12/2015 Ot 729.5 02/12/2015 Ot 908.9 02/12/2015 Ot E929.3 02/12/2015 Ot 726.10 02/12/2015 Ot 840.4 02/12/2015 Ot E000.8 02/12/2015 Ot E849.0 02/12/2015 Ot E888.9 02/12/2015 SANDRA SALMERON MINING SPECULATOR Ot V76.12 02/14/2015 SANDRA SALMERON APRN Ot V76.12 03/13/2015 SHAHEEN SOSA APRN Ot 780.2 03/15/2015 SHAHEEN SOSA APRN Ot 433.10 03/15/2015 SHAHEEN SOSA APRN Ot 433.30 04/15/2015 JAC MC, DAVID James Ot 599.0 URIN TRACT INFECTION NOS 04/15/2015 DAVID NATHAN MD Ot 724.5 BACKACHE NOS 04/15/2015 Ot 722.52 04/15/2015 Ot V45.4 04/15/2015 Ot V81.5 04/15/2015 Ot 780.2 04/15/2015 Ot 780.2 04/15/2015 Ot 729.5 04/15/2015 Ot 908.9 04/15/2015 Ot E929.3 04/15/2015 Ot 726.10 04/15/2015 Ot 840.4 04/15/2015 Ot E000.8 04/15/2015 Ot E849.0 04/15/2015 Ot E888.9 04/15/2015 SANDRA SALMERON MINING SPECULATOR Ot V76.12 04/15/2015 SHAHEEN SOSA MINING SPECULATOR Ot 433.10 04/15/2015 SHAHEEN SOSA MINING SPECULATOR Ot 433.30 04/15/2015 SHAHEEN SOSA MINING SPECULATOR Ot 780.2 04/22/2015 AMBER HERNANDEZ MD Ot 250.40 DIAB W RENAL MANIFEST, TYPE II OR UNSPEC 04/22/2015 AMBER HERNANDEZ MD Ot 250.60 DIAB W NEURO MANIFEST, TYPE II OR UNSPEC 04/22/2015 AMBER HERNANDEZ MD Ot 272.0 PURE HYPERCHOLESTEROLEM 04/22/2015 AMBER HERNANDEZ MD Ot 272.1 PURE HYPERGLYCERIDEMIA 04/22/2015 AMBER HERNANDEZ MD Ot 272.4 HYPERLIPIDEMIA NEC/NOS 04/22/2015 AMBER HERNANDEZ MD Ot 357.2 NEUROPATHY IN DIABETES 04/22/2015 AMBER HERNANDEZ MD Ot 403.90 HYPTNSV CHR KID DIS, UNSPEC, W CHR KD ST 04/22/2015 AMBER HERNANDEZ MD Ot 414.01 CORONARY ATHEROSCLEROSIS OF [place] CORON 04/22/2015 AMBER HERNANDEZ MD Ot 530.81 ESOPHAGEAL REFLUX 04/22/2015 AMBER HERNANDEZ MD Ot 583.81 NEPHRITIS NOS IN OTH DIS 04/22/2015 AMBER HERANNDEZ MD Ot 585.9 CHRONIC KIDNEY DISEASE, UNSPECIFIED 04/22/2015 AMBER HERNANDEZ MD Ot 593.9 RENAL URETERAL DIS NOS 04/22/2015 AMBER HERNANDEZ MD Ot 786.50 CHEST PAIN NOS 04/22/2015 AMBER HERNANDEZ MD Ot V15.81 HX OF PAST NONCOMPLIANCE 04/24/2015 KETAN ADAMS MD Ot 786.50 05/04/2015 KETAN ADAMS MD Ot 786.50 05/22/2015 KETAN ADAMS MD Ot 250.60 DIAB W NEURO MANIFEST, TYPE II OR UNSPEC 05/22/2015 KETAN ADAMS MD Ot 272.4 HYPERLIPIDEMIA NEC/NOS 05/22/2015 KETAN ADAMS MD Ot 357.2 NEUROPATHY IN DIABETES 05/22/2015 KETAN ADAMS MD Ot 403.90 HYPTNSV CHR KID DIS, UNSPEC, W CHR KD ST 05/22/2015 KETAN ADAMS MD Ot 414.01 CORONARY ATHEROSCLEROSIS OF [place] CORON 05/22/2015 KETAN ADAMS MD Ot 585.9 CHRONIC KIDNEY DISEASE, UNSPECIFIED 05/22/2015 KETAN ADAMS MD Ot 794.30 [facility] CARDIOVASC STUDY NOS 05/22/2015 KETAN ADAMS MD Ot V58.69 OTH MED,LT,CURRENT USE 08/26/2015 ELVA ÁLVAREZ MINING SPECULATOR Ot E11.65 TYPE 2 DIABETES MELLITUS WITH HYPERGLYCE 08/27/2015 Ot 722.52 08/27/2015 Ot V45.4 08/27/2015 Ot V81.5 08/27/2015 Ot 780.2 08/27/2015 Ot 780.2 08/27/2015 Ot 729.5 08/27/2015 Ot 908.9 08/27/2015 Ot E929.3 08/27/2015 Ot 726.10 08/27/2015 Ot 840.4 08/27/2015 Ot E000.8 08/27/2015 Ot E849.0 08/27/2015 Ot E888.9 08/27/2015 SANDRA SALMERON MINING SPECULATOR Ot V76.12 08/27/2015 SHAHEEN SOSA MINING SPECULATOR Ot 433.10 08/27/2015 SHAHEEN SOSA MINING SPECULATOR Ot 433.30 08/27/2015 SHAHEEN SOSA MINING SPECULATOR Ot 780.2 08/27/2015 KETAN ADAMS MD Ot 786.50 10/18/2015 Ot 722.52 10/18/2015 Ot V45.4 10/18/2015 Ot V81.5 10/18/2015 Ot 780.2 10/18/2015 Ot 780.2 10/18/2015 Ot 729.5 10/18/2015 Ot 908.9 10/18/2015 Ot E929.3 10/18/2015 Ot 726.10 10/18/2015 Ot 840.4 10/18/2015 Ot E000.8 10/18/2015 Ot E849.0 10/18/2015 Ot E888.9 10/18/2015 SANDRA SALMERON MINING SPECULATOR Ot V76.12 10/18/2015 SHAHEEN SOSA MINING SPECULATOR Ot 433.10 10/18/2015 SHAHEEN SOSA MINING SPECULATOR Ot 433.30 10/18/2015 SHAHEEN SOSA MINING SPECULATOR Ot 780.2 10/18/2015 BRYAN MC, KETAN Nolasco Ot 786.50 10/18/2015 JAC MC, DAVID James Ot K21.9 GASTRO-ESOPHAGEAL REFLUX DISEASE WITHOUT 10/18/2015 JAC MC, DAVID James Ot R07.9 CHEST PAIN, UNSPECIFIED 11/26/2015 ELVA ÁLVAREZ APRN Ot S80.12XA CONTUSION OF LEFT LOWER LEG, INITIAL ENC 11/26/2015 ELVA ÁLVAREZ MINING SPECULATOR Ot X58.XXXA EXPOSURE TO OTHER SPECIFIED FACTORS, INI 11/26/2015 ELVA ÁLVAREZ MINING SPECULATOR Ot Y99.8 OTHER EXTERNAL CAUSE STATUS 06/14/2016 ROHIT CAMPA DO Ot 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, UN 06/14/2016 ROHIT CAMPA DO Ot M51.37 OTHER INTERVERTEBRAL DISC DEGENERATION, 06/14/2016 ROHIT CAMPA DO Ot R55 SYNCOPE AND COLLAPSE 06/14/2016 ROHIT CAMPA DO Ot S00.93XA CONTUSION OF UNSPECIFIED PART OF HEAD, I 06/14/2016 ROHIT CAMPA DO Ot S16.1XXA STRAIN OF MUSCLE, FASCIA AND TENDON AT N 06/14/2016 ROHIT CAMPA DO Ot S39.012A STRAIN OF MUSCLE, FASCIA AND TENDON OF L 06/14/2016 ROHIT CAMPA DO Ot W18.30XA FALL ON SAME LEVEL, UNSPECIFIED, INITIAL 06/14/2016 ROHIT CAMPA DO Ot Y92.[address] [facility] (PRIVATE 06/14/2016 ROHIT CAMPA DO Ot Y99.8 OTHER EXTERNAL CAUSE STATUS 06/15/2016 ROHIT CAMPA DO Ot 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, UN 06/15/2016 ROHIT CAMPA DO Ot M51.37 OTHER INTERVERTEBRAL DISC DEGENERATION, 06/15/2016 ROHIT CAMPA DO Ot R55 SYNCOPE AND COLLAPSE 06/15/2016 ROHIT CAMPA DO Ot S00.93XA CONTUSION OF UNSPECIFIED PART OF HEAD, I 06/15/2016 ROHIT CAMPA DO Ot S16.1XXA STRAIN OF MUSCLE, FASCIA AND TENDON AT N 06/15/2016 ROHIT CAMPA DO Ot S39.012A STRAIN OF MUSCLE, FASCIA AND TENDON OF L 06/15/2016 ROHIT CAMPA DO Ot W18.30XA FALL ON SAME LEVEL, UNSPECIFIED, INITIAL 06/15/2016 ROHIT CAMPA DO Ot Y92.[address] [facility] NON-[facility] (PRIVATE 06/15/2016 ROHIT CAMPA DO Ot Y99.8 OTHER EXTERNAL CAUSE STATUS 07/14/2016 Ot 722.52 LUMB/ LUMBOSAC DISC DEGEN 07/14/2016 Ot V45.4 ARTHRODESIS STATUS 07/14/2016 Ot V81.5 SCREEN FOR NEPHROPATHY 07/14/2016 Ot 780.2 SYNCOPE AND COLLAPSE 07/14/2016 Ot 780.2 SYNCOPE AND COLLAPSE 07/14/2016 Ot 729.5 PAIN IN LIMB 07/14/2016 Ot 908.9 LATE EFFECT INJURY NOS 07/14/2016 Ot E929.3 LATE EFF ACCIDENTAL FALL 07/14/2016 Ot 726.10 BURSAE TENDONS DIS SHLDER NOS 07/14/2016 Ot 840.4 SPRAIN ROTATOR CUFF 07/14/2016 Ot E000.8 OTHER EXTERNAL CAUSE STATUS 07/14/2016 Ot E849.0 ACCIDENT IN HOME 07/14/2016 Ot E888.9 FALL NOS 07/14/2016 SANDRA SALMERON MINING SPECULATOR Ot V76.12 OTH SCREEN MAMMO-MALIGN NEOPLASM OF [place] 07/14/2016 SHAHEEN SOSA E MINING SPECULATOR Ot 433.10 CAROTID ARTERY OCCLUSION W O CEREBRAL IN 07/14/2016 SHAHEEN SOSA MINING SPECULATOR Ot 433.30 MULT BILTRAL ARTERY OCCLUSION WO CEREBRA 07/14/2016 SHAHEEN SOSA E MINING SPECULATOR Ot 780.2 SYNCOPE AND COLLAPSE 07/14/2016 BRYAN MC, KETAN Nolasco Ot 786.50 CHEST PAIN NOS 07/15/2016 DAIN MONTANEZ Ot E78.2 MIXED HYPERLIPIDEMIA 07/15/2016 DAIN MONTANEZ Ot I25.10 ATHSCL HEART DISEASE OF [place] CORONARY 07/15/2016 DAIN MONTANEZ Ot R42 DIZZINESS AND GIDDINESS 07/15/2016 DAIN MONTANEZ Ot R55 SYNCOPE AND COLLAPSE 07/28/2016 DAIN MONTANEZ Ot E78.2 MIXED HYPERLIPIDEMIA 07/28/2016 DAIN MONTANEZ Ot I25.10 ATHSCL HEART DISEASE OF [place] CORONARY 07/28/2016 DAIN MONTANEZ Ot R42 DIZZINESS AND GIDDINESS 07/28/2016 DAIN MONTANEZ Ot R55 SYNCOPE AND COLLAPSE 08/06/2016 LINDA MANSFIELD DO Ot R19.4 CHANGE IN BOWEL HABIT 08/06/2016 LINDA MANSFIELD DO Ot Z01.818 ENCOUNTER FOR OTHER PREPROCEDURAL EXAMIN 08/11/2016 Ot 722.52 LUMB/ LUMBOSAC DISC DEGEN 08/11/2016 Ot V45.4 ARTHRODESIS STATUS 08/11/2016 Ot V81.5 SCREEN FOR NEPHROPATHY 08/11/2016 Ot 780.2 SYNCOPE AND COLLAPSE 08/11/2016 Ot 780.2 SYNCOPE AND COLLAPSE 08/11/2016 Ot 729.5 PAIN IN LIMB 08/11/2016 Ot 908.9 LATE EFFECT INJURY NOS 08/11/2016 Ot E929.3 LATE EFF ACCIDENTAL FALL 08/11/2016 Ot 726.10 BURSAE TENDONS DIS SHLDER NOS 08/11/2016 Ot 840.4 SPRAIN ROTATOR CUFF 08/11/2016 Ot E000.8 OTHER EXTERNAL CAUSE STATUS 08/11/2016 Ot E849.0 ACCIDENT IN HOME 08/11/2016 Ot E888.9 FALL NOS 08/11/2016 FAVIOLA, SANDRA A MINING SPECULATOR Ot V76.12 OT SCREEN MAMMO-MALIGN NEOPLASM OF [place] 08/11/2016 SHAHEEN SOSA MINING SPECULATOR Ot 433.10 CAROTID ARTERY OCCLUSION W O CEREBRAL IN 08/11/2016 SHAHEEN SOSA MINING SPECULATOR Ot 433.30 MULT BILTRAL ARTERY OCCLUSION WO CEREBRA 08/11/2016 SHAHEEN SOSA MINING SPECULATOR Ot 780.2 SYNCOPE AND COLLAPSE 08/11/2016 BRYAN MC, KETAN Nolasco Ot 786.50 CHEST PAIN NOS 08/11/2016 DAIN MONTANEZ Ot E78.2 MIXED HYPERLIPIDEMIA 08/11/2016 DAIN MONTANEZ Ot I25.10 ATHSCL HEART DISEASE OF [place] CORONARY 08/11/2016 DAIN MONTANEZ Ot R42 DIZZINESS AND GIDDINESS 08/11/2016 DAIN MONTANEZ Ot R55 SYNCOPE AND COLLAPSE 08/11/2016 MANSFIELD LINDA OCONNOR Ot R19.4 CHANGE IN BOWEL HABIT 08/11/2016 LINDA MANSFIELD DO D Ot Z53.8 PROCEDURE AND TREATMENT NOT CARRIED OUT 08/11/2016 LINDA MANSFIELD DO D Ot Z80.0 FAMILY HISTORY OF MALIGNANT NEOPLASM OF 08/12/2016 MANSFIELD DO, LINDA D Ot K63.5 POLYP OF COLON 08/12/2016 MANSFIELD DOLINDA D Ot Z80.0 FAMILY HISTORY OF MALIGNANT NEOPLASM OF 08/13/2016 LINDA MANSFIELD DO Ot R19.4 CHANGE IN BOWEL HABIT 08/13/2016 LINDA MANSFIELD DO D Ot Z53.8 PROCEDURE AND TREATMENT NOT CARRIED OUT 08/13/2016 LINDA MANSFIELD DO D Ot Z80.0 FAMILY HISTORY OF MALIGNANT NEOPLASM OF 08/13/2016 MANSFIELD DOLINDA D Ot R19.4 CHANGE IN BOWEL HABIT 08/13/2016 MANSFIELD DOLINDA D Ot Z53.8 PROCEDURE AND TREATMENT NOT CARRIED OUT 08/13/2016 LINDA MANSFIELD DO Ot Z80.0 FAMILY HISTORY OF MALIGNANT NEOPLASM OF 08/13/2016 LINDA MANSFIELD DO Ot K63.5 POLYP OF COLON 08/13/2016 MANSFIELD LINDA OCONNOR D Ot Z80.0 FAMILY HISTORY OF MALIGNANT NEOPLASM OF 08/18/2016 LINDA MANSFIELD DO Ot K63.5 POLYP OF COLON 08/18/2016 LINDA MANSFIELD DO D Ot Z80.0 FAMILY HISTORY OF MALIGNANT NEOPLASM OF 08/21/2016 MANSFIELD DOLINDA D Ot R19.4 CHANGE IN BOWEL HABIT 08/21/2016 LINDA MANSFIELD DO D Ot Z53.8 PROCEDURE AND TREATMENT NOT CARRIED OUT 08/21/2016 LINDA MANSFIELD DO D Ot Z80.0 FAMILY HISTORY OF MALIGNANT NEOPLASM OF 08/25/2016 LINDA MANSFIELD DO D Ot R19.4 CHANGE IN BOWEL HABIT 08/25/2016 LINDA MANSFIELD DO D Ot Z53.8 PROCEDURE AND TREATMENT NOT CARRIED OUT 08/25/2016 LINDA MANSFIELD DO D Ot Z80.0 FAMILY HISTORY OF MALIGNANT NEOPLASM OF 08/26/2016 LINDA MANSFIELD DO Ot K63.5 POLYP OF COLON 08/26/2016 LINDA MANSFIELD DO Ot Z80.0 FAMILY HISTORY OF MALIGNANT NEOPLASM OF 11/03/2016 Ot 780.2 SYNCOPE AND COLLAPSE 11/03/2016 Ot 780.2 SYNCOPE AND COLLAPSE 11/03/2016 Ot 729.5 PAIN IN LIMB 11/03/2016 Ot 908.9 LATE EFFECT INJURY NOS 11/03/2016 Ot E929.3 LATE EFF ACCIDENTAL FALL 11/03/2016 Ot 726.10 BURSAE TENDONS DIS SHLDER NOS 11/03/2016 Ot 840.4 SPRAIN ROTATOR CUFF 11/03/2016 Ot E000.8 OTHER EXTERNAL CAUSE STATUS 11/03/2016 Ot E849.0 ACCIDENT IN HOME 11/03/2016 Ot E888.9 FALL NOS 11/03/2016 SANDRA SALMERON A MINING SPECULATOR Ot V76.12 OTH SCREEN MAMMO-MALIGN NEOPLASM OF [place] 11/03/2016 SHAHEEN SOSA E MINING SPECULATOR Ot 433.10 CAROTID ARTERY OCCLUSION W O CEREBRAL IN 11/03/2016 SHAHEEN SOSA E MINING SPECULATOR Ot 433.30 MULT BILTRAL ARTERY OCCLUSION WO CEREBRA 11/03/2016 SHAHEEN SOSA E MINING SPECULATOR Ot 780.2 SYNCOPE AND COLLAPSE 11/03/2016 BRYAN MC, KETAN Nolasco Ot 786.50 CHEST PAIN NOS 11/03/2016 DAIN MONTANEZ Ot E78.2 MIXED HYPERLIPIDEMIA 11/03/2016 DAIN MONTANEZ Ot I25.10 ATHSCL HEART DISEASE OF [place] CORONARY 11/03/2016 DAIN MONTANEZ Ot R42 DIZZINESS AND GIDDINESS 11/03/2016 DAIN MONTANEZ Ot R55 SYNCOPE AND COLLAPSE 11/04/2016 DAIN MOTNANEZ Ot E78.2 MIXED HYPERLIPIDEMIA 11/09/2016 DAIN MONTANEZ Ot E78.2 MIXED HYPERLIPIDEMIA 11/16/2016 DAIN MONTANEZ Ot E78.2 MIXED HYPERLIPIDEMIA 12/23/2016 MAURICE MC, JUDI Rinaldi Ot E11.40 TYPE 2 DIABETES MELLITUS WITH DIABETIC N 12/23/2016 JUDI RICHARDS MD Ot E11.65 TYPE 2 DIABETES MELLITUS WITH HYPERGLYCE 12/23/2016 JUDI RICHARDS MD Ot E78.5 HYPERLIPIDEMIA, UNSPECIFIED 12/23/2016 JUDI RICHARDS MD Ot F39 UNSPECIFIED MOOD [AFFECTIVE] DISORDER 12/23/2016 JUDI RICHARDS MD Ot G89.29 OTHER CHRONIC PAIN 12/23/2016 JUDI RICHARDS MD Ot I12.9 HYPERTENSIVE CHRONIC KIDNEY DISEASE W ST 12/23/2016 JUDI RICHARDS MD Ot I25.10 ATHSCL HEART DISEASE OF [place] CORONARY 12/23/2016 JUDI RICHARDS MD Ot K21.9 GASTRO-ESOPHAGEAL REFLUX DISEASE WITHOUT 12/23/2016 JUDI RICHARDS MD Ot N18.9 CHRONIC KIDNEY DISEASE, UNSPECIFIED 12/23/2016 JUDI RICHARDS MD Ot R07.9 CHEST PAIN, UNSPECIFIED 12/23/2016 JUDI RICHARDS MD Ot R74.8 ABNORMAL LEVELS OF OTHER SERUM ENZYMES 12/23/2016 JUDI RICHARDS MD Ot Z87.891 PERSONAL HISTORY OF NICOTINE DEPENDENCE 01/21/2017 LINDA MANSFIELD DO Ot R10.13 EPIGASTRIC PAIN 01/21/2017 LINDA MANSFIELD DO Ot R11.2 NAUSEA WITH VOMITING, UNSPECIFIED 01/21/2017 LINDA MANSFIELD DO Ot Z01.818 ENCOUNTER FOR OTHER PREPROCEDURAL EXAMIN 01/21/2017 LINDA MANSFIELD DO Ot R10.13 EPIGASTRIC PAIN 01/21/2017 LINDA MANSFIELD DO Ot R11.2 NAUSEA WITH VOMITING, UNSPECIFIED 01/21/2017 LINDA MANSFIELD DO Ot Z01.818 ENCOUNTER FOR OTHER PREPROCEDURAL EXAMIN 01/21/2017 LINDA MANSFIELD DO Ot R10.13 EPIGASTRIC PAIN 01/21/2017 LINDA MANSFIELD DO Ot R11.2 NAUSEA WITH VOMITING, UNSPECIFIED 01/21/2017 LINDA MANSFIELD DO Ot Z01.818 ENCOUNTER FOR OTHER PREPROCEDURAL EXAMIN 01/26/2017 Ot 780.2 SYNCOPE AND COLLAPSE 01/26/2017 Ot 780.2 SYNCOPE AND COLLAPSE 01/26/2017 Ot 729.5 PAIN IN LIMB 01/26/2017 Ot 908.9 LATE EFFECT INJURY NOS 01/26/2017 Ot E929.3 LATE EFF ACCIDENTAL FALL 01/26/2017 Ot 726.10 BURSAE TENDONS DIS SHLDER NOS 01/26/2017 Ot 840.4 SPRAIN ROTATOR CUFF 01/26/2017 Ot E000.8 OTHER EXTERNAL CAUSE STATUS 01/26/2017 Ot E849.0 ACCIDENT IN HOME 01/26/2017 Ot E888.9 FALL NOS 01/26/2017 SANDRA SALMERON A MINING SPECULATOR Ot V76.12 OTH SCREEN MAMMO-MALIGN NEOPLASM OF [place] 01/26/2017 SHAHEEN SOSA MINING SPECULATOR Ot 433.10 CAROTID ARTERY OCCLUSION W O CEREBRAL IN 01/26/2017 SHAHEEN SOSA MINING SPECULATOR Ot 433.30 MULT BILTRAL ARTERY OCCLUSION WO CEREBRA 01/26/2017 SHAHEEN SOSA MINING SPECULATOR Ot 780.2 SYNCOPE AND COLLAPSE 01/26/2017 BRYAN MC, KETAN Nolasco Ot 786.50 CHEST PAIN NOS 01/26/2017 DAIN MONTANEZ Ot E78.2 MIXED HYPERLIPIDEMIA 01/26/2017 DAIN MONTANEZ Ot I25.10 ATHSCL HEART DISEASE OF [place] CORONARY 01/26/2017 DAIN MONTANEZ Ot R42 DIZZINESS AND GIDDINESS 01/26/2017 DAIN MONTANEZ Ot R55 SYNCOPE AND COLLAPSE 01/26/2017 DAIN MONTANEZ Ot E78.2 MIXED HYPERLIPIDEMIA 01/26/2017 LINDA MANSFIELD DO Ot E11.9 TYPE 2 DIABETES MELLITUS WITHOUT COMPLIC 01/26/2017 LINDA MANSFIELD DO Ot K20.9 ESOPHAGITIS, UNSPECIFIED 01/26/2017 LINDA MANSFIELD DO Ot K29.70 GASTRITIS, UNSPECIFIED, WITHOUT BLEEDING 01/26/2017 LINDA MANSFIELD DO Ot Z79.4 INTERMEDIATE (CURRENT) USE OF INSULIN 01/27/2017 LINDA MANSFIELD DO Ot E11.9 TYPE 2 DIABETES MELLITUS WITHOUT COMPLIC 01/27/2017 LINDA MANSFIELD DO Ot K20.9 ESOPHAGITIS, UNSPECIFIED 01/27/2017 LINDA MANSFIELD DO Ot K29.70 GASTRITIS, UNSPECIFIED, WITHOUT BLEEDING 01/27/2017 MANSFIELD DO, LINDA D Ot 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 02/01/2017 MANSFIELD DO, LINDA D Ot E11.9 TYPE 2 DIABETES MELLITUS WITHOUT COMPLIC 02/01/2017 MANSFIELD DO, LINDA D Ot K20.9 ESOPHAGITIS, UNSPECIFIED 02/01/2017 MANSFIELD DO, LINDA D Ot K29.70 GASTRITIS, UNSPECIFIED, WITHOUT BLEEDING 02/01/2017 MANSFIELD DO, LINDA D Ot 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 02/04/2017 MANSFIELD DO, LINDA D Ot E11.9 TYPE 2 DIABETES MELLITUS WITHOUT COMPLIC 02/04/2017 MANSFIELD DO, LINDA D Ot K20.9 ESOPHAGITIS, UNSPECIFIED 02/04/2017 MANSFIELD DO, LINDA D Ot K29.70 GASTRITIS, UNSPECIFIED, WITHOUT BLEEDING 02/04/2017 MANSFIELD DO, LINDA D Ot Z79.4 INTERMEDIATE (CURRENT) USE OF INSULIN 02/06/2017 MANSFIELD DO, LINDA D Ot E11.9 TYPE 2 DIABETES MELLITUS WITHOUT COMPLIC 02/06/2017 MANSFIELD DO, LINDA D Ot K20.9 ESOPHAGITIS, UNSPECIFIED 02/06/2017 MANSFIELD DO, LINDA D Ot K29.70 GASTRITIS, UNSPECIFIED, WITHOUT BLEEDING 02/06/2017 MANSFIELD DO, LINDA D Ot Z79.4 INTERMEDIATE (CURRENT) USE OF INSULIN 02/10/2017 Ot 780.2 SYNCOPE AND COLLAPSE 02/10/2017 Ot 780.2 SYNCOPE AND COLLAPSE 02/10/2017 Ot 729.5 PAIN IN LIMB 02/10/2017 Ot 908.9 LATE EFFECT INJURY NOS 02/10/2017 Ot E929.3 LATE EFF ACCIDENTAL FALL 02/10/2017 Ot 726.10 BURSAE TENDONS DIS SHLDER NOS 02/10/2017 Ot 840.4 SPRAIN ROTATOR CUFF 02/10/2017 Ot E000.8 OTHER EXTERNAL CAUSE STATUS 02/10/2017 Ot E849.0 ACCIDENT IN HOME 02/10/2017 Ot E888.9 FALL NOS 02/10/2017 SANDRA SALMERON MINING SPECULATOR Ot V76.12 OTH SCREEN MAMMO-MALIGN NEOPLASM OF [place] 02/10/2017 SHAHEEN SOSA MINING SPECULATOR Ot 433.10 CAROTID ARTERY OCCLUSION W O CEREBRAL IN 02/10/2017 SHAHEEN SOSA MINING SPECULATOR Ot 433.30 MULT BILTRAL ARTERY OCCLUSION WO CEREBRA 02/10/2017 SHAHEEN SOSA APRN Ot 780.2 SYNCOPE AND COLLAPSE 02/10/2017 BRYAN MC, KETAN Nolasco Ot 786.50 CHEST PAIN NOS 02/10/2017 DAIN MONTANEZ Ot E78.2 MIXED HYPERLIPIDEMIA 02/10/2017 DAIN MONTANEZ Ot I25.10 ATHSCL HEART DISEASE OF [place] CORONARY 02/10/2017 DAIN MONTANEZ Ot R42 DIZZINESS AND GIDDINESS 02/10/2017 DAIN MONTANEZ Ot R55 SYNCOPE AND COLLAPSE 02/10/2017 DAIN MONTANEZ Ot E78.2 MIXED HYPERLIPIDEMIA 02/19/2017 OSWALDO ALTAMIRANO MINING SPECULATOR Ot Z12.31 ENCNTR SCREEN MAMMOGRAM FOR MALIGNANT NE 03/09/2017 OSWALDO ALTAMIRANO MINING SPECULATOR Ot N64.89 OTHER SPECIFIED DISORDERS OF BREAST 03/14/2017 OSWALDO ALTAMIRANO MINING SPECULATOR Ot N64.89 OTHER SPECIFIED DISORDERS OF BREAST 03/19/2017 OSWALDO ALTAMIRANO MINING SPECULATOR Ot N64.89 OTHER SPECIFIED DISORDERS OF BREAST 06/03/2017 JUDI RICHARDS MD Ot M54.2 CERVICALGIA 06/03/2017 JUDI RICHARDS MD Ot R51 HEADACHE 06/03/2017 JUDI RICHARDS MD Ot S09.90XA UNSPECIFIED INJURY OF HEAD, INITIAL ENCO 06/03/2017 JUDI RICHARDS MD Ot X58.XXXA EXPOSURE TO OTHER SPECIFIED FACTORS, INI 06/03/2017 JUDI RICHARDS MD Ot Y99.8 OTHER EXTERNAL CAUSE STATUS 06/08/2017 JUDI RICHARDS MD Ot M54.2 CERVICALGIA 06/08/2017 JUDI RICHARDS MD Ot R51 HEADACHE 06/08/2017 JUDI RICHARDS MD Ot S09.90XA UNSPECIFIED INJURY OF HEAD, INITIAL ENCO 06/08/2017 JUDI RICHARDS MD Ot X58.XXXA EXPOSURE TO OTHER SPECIFIED FACTORS, INI 06/08/2017 MAURICE MD, JUDI N Ot Y99.8 OTHER EXTERNAL CAUSE STATUS 09/14/2017 OSWALDO ALTAMIRANO MINING SPECULATOR Ot N64.89 OTHER SPECIFIED DISORDERS OF BREAST 09/24/2017 OSWALDO ALTAMIRANO MINING SPECULATOR Ot N64.89 OTHER SPECIFIED DISORDERS OF BREAST 11/10/2017 OSWALDO ALTAMIRANO MINING SPECULATOR Ot E11.42 TYPE 2 DIABETES MELLITUS WITH DIABETIC P 11/10/2017 OSWALDO ALTAMIRANO MINING SPECULATOR Ot N28.9 DISORDER OF KIDNEY AND URETER, UNSPECIFI 03/29/2018 ANIBAL SALMERONALCIDES Ford MINING SPECULATOR Ot V76.12 OTH SCREEN MAMMO-MALIGN NEOPLASM OF [place] 03/29/2018 SHAHEEN SOSA MINING SPECULATOR Ot 433.10 CAROTID ARTERY OCCLUSION W O CEREBRAL IN 03/29/2018 SHAHEEN SOSA MINING SPECULATOR Ot 433.30 MULT BILTRAL ARTERY OCCLUSION WO CEREBRA 03/29/2018 SHAHEEN SOSA MINING SPECULATOR Ot 780.2 SYNCOPE AND COLLAPSE 03/29/2018 BRYAN MC, KETAN Nolasco Ot 786.50 CHEST PAIN NOS 03/29/2018 DAIN MONTANEZ Ot E78.2 MIXED HYPERLIPIDEMIA 03/29/2018 DAIN MONTANEZ Ot I25.10 ATHSCL HEART DISEASE OF [place] CORONARY 03/29/2018 DAIN MONTANEZ Ot R42 DIZZINESS AND GIDDINESS 03/29/2018 DAIN MONTANEZ Ot R55 SYNCOPE AND COLLAPSE 03/29/2018 DAIN MONTANEZ Ot E78.2 MIXED HYPERLIPIDEMIA 03/29/2018 OSWALDO ALTAMIRANO MINING SPECULATOR Ot Z12.31 ENCNTR SCREEN MAMMOGRAM FOR MALIGNANT NE 03/29/2018 OSWALDO ALTAMIRANO MINING SPECULATOR Ot N64.89 OTHER SPECIFIED DISORDERS OF BREAST 03/29/2018 JUDI RICHARDS MD Ot M54.2 CERVICALGIA 03/29/2018 JUDI RICHARDS MD, Ot R51 HEADACHE 03/29/2018 JUDI RICHARDS MD, Ot S09.90XA UNSPECIFIED INJURY OF HEAD, INITIAL ENCO 03/29/2018 JUDI RICHARDS MD, Ot X58.XXXA EXPOSURE TO OTHER SPECIFIED FACTORS, INI 03/29/2018 JUDI RICHARDS MD N Ot Y99.8 OTHER EXTERNAL CAUSE STATUS 03/29/2018 OSWALDO ALTAMIRANO Navya MINING SPECULATOR Ot N64.89 OTHER SPECIFIED DISORDERS OF BREAST 03/29/2018 ADARSH OSWALDO R MINING SPECULATOR Ot E11.42 TYPE 2 DIABETES MELLITUS WITH DIABETIC P 03/29/2018 ADARSH OSWALDO R MINING SPECULATOR Ot N28.9 DISORDER OF KIDNEY AND URETER, UNSPECIFI 03/30/2018 JOHANA MC, MARYLOU Yao D50.9 IRON DEFICIENCY ANEMIA, UNSPECIFIED 03/30/2018 JOHANA MC, MARYLOU Yao E55.9 VITAMIN D DEFICIENCY, UNSPECIFIED 03/30/2018 JOHANA MC, MARYLOU Yao I12.9 HYPERTENSIVE CHRONIC KIDNEY DISEASE W ST 03/30/2018 JOHANA MC, MARYLOU Yao N18.3 CHRONIC KIDNEY DISEASE, STAGE 3 (MODERAT 04/08/2018 JOHANA MC, MARYLOU Yao D50.9 IRON DEFICIENCY ANEMIA, UNSPECIFIED 04/08/2018 MARYLOU VAUGHN MD, Ot E55.9 VITAMIN D DEFICIENCY, UNSPECIFIED 04/08/2018 JOHANA MC, MARYLOU Ot I12.9 HYPERTENSIVE CHRONIC KIDNEY DISEASE W ST 04/08/2018 JOHANA MC, MARYLOU Yao N18.3 CHRONIC KIDNEY DISEASE, STAGE 3 (MODERAT Procedures Code Description [place] [address] XRAY HUMERUS RIGHT 2 VIEWS 09/22/2012 78994 MRI EXTREMITY JOINT, UPPER RIGHT, W/O CONTRAST 09/27/2012 Orthopedi Mason Zarate 09/27/2012 83949 ROUTINE VENIPUNCTURE 12/21/2012 80712 A1C (IN-HOUSE) 12/21/2012 10481 LIVER PANEL (LFT) 12/21/2012 40295 ROUTINE VENIPUNCTURE 01/17/2013 96451 LIVER PANEL (LFT) 01/17/2013 24732 VITAMIN D 25-HYDROXY (D2,D3 , TOTAL) 01/17/2013 60856 TSH 01/17/2013 12037 UA LONG DIP 02/28/2013 Neurology Yousuf Chadwick 02/28/2013 43215 A1C (IN-HOUSE) 03/30/2013 71708 MICRO ALBUMIN-IN HOUSE 03/30/2013 47751 STREP A (IN-HOUSE) 07/17/2013 PHYSICAL OCCUPATIONAL THERAPY, 07/27/2013 56282 SLEEP STUDY 07/28/2013 84808 A1C (IN-HOUSE) 08/03/2013 PODIATRY ROXY HOWE 08/24/2013 22887 A1C (IN-HOUSE) 11/13/2013 04618 MICRO ALBUMIN-IN HOUSE 11/13/2013 61925 UA LONG DIP 11/13/2013 58394 A1C (IN-HOUSE) 03/05/2014 45496 XRAY ANKLE R COMP MIN, 3 VIEWS 03/19/2014 PODIATRY ROXY HOWE 03/19/2014 56149 ROUTINE VENIPUNCTURE 06/18/2014 76605 A1C (IN-HOUSE) 06/18/2014 34468 CMP 06/18/2014 06669 LIPID PANEL 06/18/2014 16646 TSH 06/18/2014 05114 CBC 06/18/2014 Otolaryng Nay Rowan 08/15/2014 78892 A1C (IN-HOUSE) 09/17/2014 95939 INFLUENZA A & B (IN-HOUSE) 11/03/2014 67096 A1C (IN-HOUSE) 12/24/2014 04772 HEMOGLOBIN (IN-HOUSE) 12/24/2014 24480 MICRO ALBUMIN-IN HOUSE 12/24/2014 75815 MAMMOGRAM, SCREENING 01/29/2015 GENERAL Linda Gonzales 01/29/2015 12095 HOLTER MONITOR (OUTPATIENT) 02/07/2015 35487 US CAROTID DOPPLER 02/07/2015 Results Test Result Range Urine drug screening test - 06/13/16 01:25 Urine acetaminophen detection by screening method NEGATIVE NEGATIVE Urine phencyclidine detection by screening method NEGATIVE NEGATIVE Urine benzodiazepines detection by screening method NEGATIVE NEGATIVE Urine cocaine detection NEGATIVE NEGATIVE Urine amphetamines detection by screening method NEGATIVE NEGATIVE Urine methamphetamine detection by screening method NEGATIVE NEGATIVE Urine cannabinoids detection by screening method NEGATIVE NEGATIVE Urine opiates detection by screening method NEGATIVE NEGATIVE Urine barbiturates detection NEGATIVE NEGATIVE Screening urine tricyclic antidepressants detection NEGATIVE NEGATIVE Urine methadone detection by screening method NEGATIVE NEGATIVE Complete blood count (CBC) with automated white blood cell (WBC) differential - 06/14/16 00:15 Blood leukocytes automated count (number/volume) 10.0 10*3/uL 4.3-11.0 Blood erythrocytes automated count (number/volume) 4.35 10*6/uL 4.35-5.85 Venous blood hemoglobin measurement (mass/volume) 12.9 g/dL 11.5-16.0 Blood hematocrit (volume fraction) 38 % 35-52 Automated erythrocyte mean corpuscular volume 88 [foz_us] 80-99 Automated erythrocyte mean corpuscular hemoglobin (mass per erythrocyte) 30 pg 25-34 Automated erythrocyte mean corpuscular hemoglobin concentration measurement ( mass/volume) 34 g/dL 32-36 Automated erythrocyte distribution width ratio 12.8 % 10.0-14.5 Automated blood platelet count (count/volume) 267 10*3/uL 130-400 Automated blood platelet mean volume measurement 10.3 [foz_us] 7.4-10.4 Automated blood neutrophils/100 leukocytes 64 % 42-75 Automated blood lymphocytes/100 leukocytes 25 % 12-44 Blood monocytes/100 leukocytes 8 % 0-12 Automated blood eosinophils/100 leukocytes 3 % 0-10 Automated blood basophils/100 leukocytes 1 % 0-10 Blood neutrophils automated count (number/volume) 6.4 10*3 1.8-7.8 Blood lymphocytes automated count (number/volume) 2.5 10*3 1.0-4.0 Blood monocytes automated count (number/volume) 0.8 10*3 0.0-1.0 Automated eosinophil count 0.3 10*3/uL 0.0-0.3 Automated blood basophil count (count/volume) 0.1 10*3/uL 0.0-0.1 Comprehensive metabolic panel - 06/14/16 00:15 Serum or plasma sodium measurement (moles/volume) 138 mmol/L 135-145 Serum or plasma potassium measurement (moles/volume) 3.8 mmol/L 3.6-5.0 Serum or plasma chloride measurement (moles/volume) 104 mmol/L 98-107 Carbon dioxide 21 mmol/L 21-32 Serum or plasma anion gap determination (moles/volume) 13 mmol/L 5-14 Serum or plasma urea nitrogen measurement (mass/volume) 12 mg/dL 7-18 Serum or plasma creatinine measurement (mass/volume) 1.20 mg/dL 0.60-1.30 Serum or plasma urea nitrogen/creatinine mass ratio 10 NRG Serum or plasma creatinine measurement with calculation of estimated glomerular filtration rate 47 NRG Serum or plasma glucose measurement (mass/volume) 202 mg/dL 70-105 Serum or plasma calcium measurement (mass/volume) 10.4 mg/dL 8.5-10.1 Serum or plasma total bilirubin measurement (mass/volume) 0.8 mg/dL 0.1-1.0 Serum or plasma alkaline phosphatase measurement (enzymatic activity/volume) 130 U/L 40-136 Serum or plasma aspartate aminotransferase measurement (enzymatic activity/ volume) 42 U/L 5-34 Serum or plasma alanine aminotransferase measurement (enzymatic activity/volume ) 44 U/L 0-55 Serum or plasma protein measurement (mass/volume) 8.7 g/dL 6.4-8.2 Serum or plasma albumin measurement (mass/volume) 4.2 g/dL 3.2-4.5 Magnesium - 06/14/16 00:15 Magnesium 1.8 mg/dL 1.8-2.4 Serum or plasma troponin i.cardiac measurement (mass/volume) - 06/14/16 00:15 Serum or plasma troponin i.cardiac measurement (mass/volume) < ng/ mL <0.30 Serum or plasma ethanol measurement (mass/volume) - 06/14/16 00:15 Serum or plasma ethanol measurement (mass/volume) < mg/dL <10 Liver function panel (serum or plasma alk phos, alb, total and direct bili, total protein, ALT, AST) - 07/14/16 11:00 Serum or plasma total bilirubin measurement (mass/volume) 0.5 mg/dL 0.1-1.0 Serum or plasma alkaline phosphatase measurement (enzymatic activity/volume) 102 U/L 40-136 Serum or plasma aspartate aminotransferase measurement (enzymatic activity/ volume) 31 U/L 5-34 Serum or plasma alanine aminotransferase measurement (enzymatic activity/volume ) 33 U/L 0-55 Serum or plasma protein measurement (mass/volume) 7.8 g/dL 6.4-8.2 Serum or plasma albumin measurement (mass/volume) 3.8 g/dL 3.2-4.5 Bilirubin direct 0.2 mg/dL 0.0-0.3 Serum or plasma indirect bilirubin measurement (mass/volume) 0.3 mg/ dL NR Lipid 1996 panel - 07/14/16 11:00 Serum or plasma triglyceride measurement (mass/volume) 165 mg/dL <150 Serum or plasma cholesterol measurement (mass/volume) 213 mg/dL < 200 Serum or plasma cholesterol in HDL measurement (mass/volume) 33 mg/ dL 40-60 Cholesterol in LDL [mass/volume] in serum or plasma by direct assay 159 mg/dL 1-129 Serum or plasma cholesterol in VLDL measurement (mass/volume) 33 mg/ dL 5-40 Capillary blood glucose measurement by glucometer (mass/volume) - 08/11/16 10: 18 Capillary blood glucose measurement by glucometer (mass/volume) 239 mg/dL 70-110 Complete blood count (CBC) with automated white blood cell (WBC) differential - 12/22/16 16:30 Blood leukocytes automated count (number/volume) 7.7 10*3/uL 4.3-11.0 Blood erythrocytes automated count (number/volume) 4.19 10*6/uL 4.35-5.85 Venous blood hemoglobin measurement (mass/volume) 12.5 g/dL 11.5-16.0 Blood hematocrit (volume fraction) 37 % 35-52 Automated erythrocyte mean corpuscular volume 89 [foz_us] 80-99 Automated erythrocyte mean corpuscular hemoglobin (mass per erythrocyte) 30 pg 25-34 Automated erythrocyte mean corpuscular hemoglobin concentration measurement ( mass/volume) 34 g/dL 32-36 Automated erythrocyte distribution width ratio 12.8 % 10.0-14.5 Automated blood platelet count (count/volume) 236 10*3/uL 130-400 Automated blood platelet mean volume measurement 9.9 [foz_us] 7.4-10.4 Automated blood neutrophils/100 leukocytes 56 % 42-75 Automated blood lymphocytes/100 leukocytes 32 % 12-44 Blood monocytes/100 leukocytes 6 % 0-12 Automated blood eosinophils/100 leukocytes 6 % 0-10 Automated blood basophils/100 leukocytes 1 % 0-10 Blood neutrophils automated count (number/volume) 4.4 10*3 1.8-7.8 Blood lymphocytes automated count (number/volume) 2.5 10*3 1.0-4.0 Blood monocytes automated count (number/volume) 0.4 10*3 0.0-1.0 Automated eosinophil count 0.4 10*3/uL 0.0-0.3 Automated blood basophil count (count/volume) 0.1 10*3/uL 0.0-0.1 PT panel in platelet poor plasma by coagulation assay - 12/22/16 16:30 Prothrombin time (PT) in platelet poor plasma by coagulation assay 13.7 s 12.2-14.7 INR in platelet poor plasma or blood by coagulation assay 1.1 0.8-1.4 Activated partial thromboplastin time (aPTT) in platelet poor plasma bycoagulation assay - 12/22/16 16:30 Activated partial thromboplastin time (aPTT) in platelet poor plasma bycoagulation assay 29 s 24-35 Comprehensive metabolic panel - 12/22/16 16:30 Serum or plasma sodium measurement (moles/volume) 136 mmol/L 135-145 Serum or plasma potassium measurement (moles/volume) 3.9 mmol/L 3.6-5.0 Serum or plasma chloride measurement (moles/volume) 102 mmol/L 98-107 Carbon dioxide 22 mmol/L 21-32 Serum or plasma anion gap determination (moles/volume) 12 mmol/L 5-14 Serum or plasma urea nitrogen measurement (mass/volume) 8 mg/dL 7-18 Serum or plasma creatinine measurement (mass/volume) 1.21 mg/dL 0.60-1.30 Serum or plasma urea nitrogen/creatinine mass ratio 7 NRG Serum or plasma creatinine measurement with calculation of estimated glomerular filtration rate 46 NRG Serum or plasma glucose measurement (mass/volume) 363 mg/dL 70-105 Serum or plasma calcium measurement (mass/volume) 9.2 mg/dL 8.5-10.1 Serum or plasma total bilirubin measurement (mass/volume) 0.6 mg/dL 0.1-1.0 Serum or plasma alkaline phosphatase measurement (enzymatic activity/volume) 162 U/L 40-136 Serum or plasma aspartate aminotransferase measurement (enzymatic activity/ volume) 35 U/L 5-34 Serum or plasma alanine aminotransferase measurement (enzymatic activity/volume ) 66 U/L 0-55 Serum or plasma protein measurement (mass/volume) 8.1 g/dL 6.4-8.2 Serum or plasma albumin measurement (mass/volume) 3.9 g/dL 3.2-4.5 Magnesium - 12/22/16 16:30 Magnesium 1.6 mg/dL 1.8-2.4 Serum or plasma troponin i.cardiac measurement (mass/volume) - 12/22/16 16:30 Serum or plasma troponin i.cardiac measurement (mass/volume) < ng/ mL <0.30 Myoglobin, serum - 12/22/16 16:30 Myoglobin, serum 28.0 ng/mL 10.0-92.0 Lipase - 12/22/16 16:30 Lipase 146 U/L 8-78 Capillary blood glucose measurement by glucometer (mass/volume) - 12/22/16 21: 33 Capillary blood glucose measurement by glucometer (mass/volume) 120 mg/dL 70-110 Serum or plasma troponin i.cardiac measurement (mass/volume) - 12/22/16 22:20 Serum or plasma troponin i.cardiac measurement (mass/volume) < ng/ mL <0.30 Lipid 1996 panel - 12/23/16 04:19 Serum or plasma triglyceride measurement (mass/volume) 95 mg/dL <150 Serum or plasma cholesterol measurement (mass/volume) 116 mg/dL < 200 Serum or plasma cholesterol in HDL measurement (mass/volume) 29 mg/ dL 40-60 Cholesterol in LDL [mass/volume] in serum or plasma by direct assay 75 mg/dL 1-129 Serum or plasma cholesterol in VLDL measurement (mass/volume) 19 mg/ dL 5-40 Comprehensive metabolic panel - 12/23/16 04:19 Serum or plasma sodium measurement (moles/volume) 138 mmol/L 135-145 Serum or plasma potassium measurement (moles/volume) 4.0 mmol/L 3.6-5.0 Serum or plasma chloride measurement (moles/volume) 109 mmol/L 98-107 Carbon dioxide 20 mmol/L 21-32 Serum or plasma anion gap determination (moles/volume) 9 mmol/L 5-14 Serum or plasma urea nitrogen measurement (mass/volume) 8 mg/dL 7-18 Serum or plasma creatinine measurement (mass/volume) 0.90 mg/dL 0.60-1.30 Serum or plasma urea nitrogen/creatinine mass ratio 9 NRG Serum or plasma creatinine measurement with calculation of estimated glomerular filtration rate > NRG Serum or plasma glucose measurement (mass/volume) 153 mg/dL 70-105 Serum or plasma calcium measurement (mass/volume) 8.1 mg/dL 8.5-10.1 Serum or plasma total bilirubin measurement (mass/volume) 0.6 mg/dL 0.1-1.0 Serum or plasma alkaline phosphatase measurement (enzymatic activity/volume) 133 U/L 40-136 Serum or plasma aspartate aminotransferase measurement (enzymatic activity/ volume) 60 U/L 5-34 Serum or plasma alanine aminotransferase measurement (enzymatic activity/volume ) 62 U/L 0-55 Serum or plasma protein measurement (mass/volume) 6.5 g/dL 6.4-8.2 Serum or plasma albumin measurement (mass/volume) 3.2 g/dL 3.2-4.5 Serum or plasma amylase measurement (enzymatic activity/volume) - 12/23/16 04: 19 Serum or plasma amylase measurement (enzymatic activity/volume) 112 U/L 25-125 Lipase - 12/23/16 04:19 Lipase 53 U/L 8-78 Serum or plasma troponin i.cardiac measurement (mass/volume) - 12/23/16 04:19 Serum or plasma troponin i.cardiac measurement (mass/volume) < ng/ mL <0.30 Capillary blood glucose measurement by glucometer (mass/volume) - 12/23/16 11: 08 Capillary blood glucose measurement by glucometer (mass/volume) 156 mg/dL 70-110 Capillary blood glucose measurement by glucometer (mass/volume) - 12/23/16 15: 52 Capillary blood glucose measurement by glucometer (mass/volume) 180 mg/dL 70-110 Capillary blood glucose measurement by glucometer (mass/volume) - 01/26/17 10: 01 Capillary blood glucose measurement by glucometer (mass/volume) 74 mg/dL 70-110 CBC With Differential/Platelet - 05/13/17 09:29 WBC 7.6 x10E3/uL 3.4-10.8 RBC 4.37 x10E6/uL 3.77-5.28 Hemoglobin 12.4 g/dL 11.1-15.9 Hematocrit 37.5 % 34.0-46.6 MCV 86 fL 79-97 MCH 28.4 pg 26.6-33.0 MCHC 33.1 g/dL 31.5-35.7 RDW 13.4 % 12.3-15.4 Platelets 280 x10E3/uL 150-379 Neutrophils 60 % Lymphs 28 % Monocytes 7 % Eos 4 % Basos 1 % Neutrophils (Absolute) 4.6 x10E3/uL 1.4-7.0 Lymphs (Absolute) 2.1 x10E3/uL 0.7-3.1 Monocytes(Absolute) 0.5 x10E3/uL 0.1-0.9 Eos (Absolute) 0.3 x10E3/uL 0.0-0.4 Baso (Absolute) 0.1 x10E3/uL 0.0-0.2 Immature Granulocytes 0 % Immature Grans (Abs) 0.0 x10E3/uL 0.0-0.1 Comp. Metabolic Panel (14) - 05/13/17 09:29 Glucose, Serum 309 mg/dL 65-99 BUN 11 mg/dL 6-24 Creatinine, Serum 1.26 mg/dL 0.57-1.00 eGFR If NonAfricn Am 48 mL/min/1.73 >59 eGFR If Africn Am 55 mL/min/1.73 >59 BUN/Creatinine Ratio 9 9-23 Sodium, Serum 137 mmol/L 134-144 Potassium, Serum 4.3 mmol/L 3.5-5.2 Chloride, Serum 96 mmol/L 96-106 Carbon Dioxide, Total 22 mmol/L 18-29 Calcium, Serum 9.6 mg/dL 8.7-10.2 Protein, Total, Serum 8.1 g/dL 6.0-8.5 Albumin, Serum 4.1 g/dL 3.5-5.5 Globulin, Total 4.0 g/dL 1.5-4.5 A/G Ratio 1.0 1.2-2.2 Bilirubin, Total 0.4 mg/dL 0.0-1.2 Alkaline Phosphatase, S 150 IU/L 39-117 AST (SGOT) 20 IU/L 0-40 ALT (SGPT) 22 IU/L 0-32 Lipid Panel - 05/13/17 09:29 Cholesterol, Total 144 mg/dL 100-199 Triglycerides 118 mg/dL 0-149 HDL Cholesterol 39 mg/dL >39 VLDL Cholesterol Alexis 24 mg/dL 5-40 LDL Cholesterol Calc 81 mg/dL 0-99 Thyroid Gleason Profile - 05/13/17 09:29 TSH 2.410 uIU/mL 0.450-4.500 CBC+Platelet+Hem Review - 07/20/17 12:38 WBC 8.3 x10E3/uL 3.4-10.8 RBC 4.30 x10E6/uL 3.77-5.28 Hemoglobin 12.2 g/dL 11.1-15.9 Hematocrit 38.0 % 34.0-46.6 MCV 88 fL 79-97 MCH 28.4 pg 26.6-33.0 MCHC 32.1 g/dL 31.5-35.7 RDW 14.5 % 12.3-15.4 Platelets 295 x10E3/uL 150-379 Neutrophils 66 % Lymphs 20 % Monocytes 5 % Eos 7 % Basos 2 % Neutrophils Absolute 5.5 X10E3/uL 1.4-7.0 Lymphs (Absolute) 1.7 X10E3/uL 0.7-3.1 Monocytes(Absolute) 0.4 X10E3/uL 0.1-0.9 Eos (Absolute Value) 0.6 X10E3/uL 0.0-0.4 Baso(Absolute) 0.2 X10E3/uL 0.0-0.2 Differential Comment Note: RBC Comment Note: Normal Platelet Comment Note: Adequate Comp. Metabolic Panel (14) - 07/20/17 12:38 Glucose, Serum 207 mg/dL 65-99 BUN 13 mg/dL 6-24 Creatinine, Serum 1.02 mg/dL 0.57-1.00 eGFR If NonAfricn Am 62 mL/min/1.73 >59 eGFR If Africn Am 72 mL/min/1.73 >59 BUN/Creatinine Ratio 13 9-23 Sodium, Serum 139 mmol/L 134-144 Potassium, Serum 4.3 mmol/L 3.5-5.2 Chloride, Serum 97 mmol/L 96-106 Carbon Dioxide, Total 26 mmol/L 18-29 Calcium, Serum 9.6 mg/dL 8.7-10.2 Protein, Total, Serum 8.2 g/dL 6.0-8.5 Albumin, Serum 4.3 g/dL 3.5-5.5 Globulin, Total 3.9 g/dL 1.5-4.5 A/G Ratio 1.1 1.2-2.2 Bilirubin, Total 0.5 mg/dL 0.0-1.2 Alkaline Phosphatase, S 129 IU/L 39-117 AST (SGOT) 19 IU/L 0-40 ALT (SGPT) 19 IU/L 0-32 Renal Panel (10) - 07/20/17 12:38 Phosphorus, Serum 3.3 mg/dL 2.5-4.5 Prot+CreatU (Random) - 07/20/17 12:38 Creatinine, Urine 62.0 mg/dL Not Estab. Protein,Total,Urine 4.4 mg/dL Not Estab. Protein/Creat Ratio 71 mg/g creat 0-200 Urine Culture, Routine - 07/20/17 12:38 Urine Culture, Routine Note CULTURE, URINE - 11/25/17 09:55 CULTURE, URINE, ROUTINE SEE NOTE NRG PTH (INTACT) - 11/25/17 09:55 CALCIUM 9.8 mg/dL 8.6-10.4 PARATHYROID HORMONE, INTACT 61 pg/mL 14-64 THYROID ANALYZER - 03/18/18 08:48 TSH 2.06 mIU/L 0.40-4.50 VITAMIN D, 25-H - 03/18/18 08:48 VITAMIN D,25-OH,TOTAL,IA 23 ng/mL 30-100 Complete urinalysis with reflex to culture - 03/29/18 09:00 Urine color determination YELLOW NRG Urine clarity determination CLEAR NRG Urine pH measurement by test strip 5 5-9 Specific gravity of urine by test strip 1.010 1.016- 1.022 Urine protein assay by test strip, semi-quantitative NEGATIVE NEGATIVE Urine glucose detection by automated test strip 4+ NEGATIVE Erythrocytes detection in urine sediment by light microscopy NEGATIVE NEGATIVE Urine ketones detection by automated test strip NEGATIVE NEGATIVE Urine nitrite detection by test strip NEGATIVE NEGATIVE Urine total bilirubin detection by test strip NEGATIVE NEGATIVE Urine urobilinogen measurement by automated test strip (mass/volume) NORMAL NORMAL Urine leukocyte esterase detection by dipstick 1+ NEGATIVE Automated urine sediment erythrocyte count by microscopy (number/high power field) NONE NRG Automated urine sediment leukocyte count by microscopy (number/high power field ) [HPF] NRG Bacteria detection in urine sediment by light microscopy NEGATIVE NRG Squamous epithelial cells detection in urine sediment by light microscopy 0-2 NRG Crystals detection in urine sediment by light microscopy NONE NRG Casts detection in urine sediment by light microscopy NONE NRG Mucus detection in urine sediment by light microscopy NEGATIVE NRG Complete urinalysis with reflex to culture NO NRG Urine protein/creatinine mass ratio - 03/29/18 09:00 Urine protein measurement (mass/volume) < mg/dL 6-12 Urine creatinine measurement (mass/volume) 48 mg/dL 30- 125 Urine protein/creatinine mass ratio TNP NRG Complete blood count (CBC) with automated white blood cell (WBC) differential - 03/29/18 09:03 Blood leukocytes automated count (number/volume) 6.9 10*3/uL 4.3-11.0 Blood erythrocytes automated count (number/volume) 3.82 10*6/uL 4.35-5.85 Venous blood hemoglobin measurement (mass/volume) 11.2 g/dL 11.5-16.0 Blood hematocrit (volume fraction) 34 % 35-52 Automated erythrocyte mean corpuscular volume 89 [foz_us] 80-99 Automated erythrocyte mean corpuscular hemoglobin (mass per erythrocyte) 29 pg 25-34 Automated erythrocyte mean corpuscular hemoglobin concentration measurement ( mass/volume) 33 g/dL 32-36 Automated erythrocyte distribution width ratio 13.3 % 10.0-14.5 Automated blood platelet count (count/volume) 246 10*3/uL 130-400 Automated blood platelet mean volume measurement 10.0 [foz_us] 7.4-10.4 Automated blood neutrophils/100 leukocytes 55 % 42-75 Automated blood lymphocytes/100 leukocytes 31 % 12-44 Blood monocytes/100 leukocytes 7 % 0-12 Automated blood eosinophils/100 leukocytes 6 % 0-10 Automated blood basophils/100 leukocytes 1 % 0-10 Blood neutrophils automated count (number/volume) 3.8 10*3 1.8-7.8 Blood lymphocytes automated count (number/volume) 2.2 10*3 1.0-4.0 Blood monocytes automated count (number/volume) 0.5 10*3 0.0-1.0 Automated eosinophil count 0.4 10*3/uL 0.0-0.3 Automated blood basophil count (count/volume) 0.1 10*3/uL 0.0-0.1 Serum or plasma renal function panel (Na, K, Cl, CO2, BUN, Cr, glucose,Ca, phos , alb) - 03/29/18 09:03 Serum or plasma sodium measurement (moles/volume) 138 mmol/L 135-145 Serum or plasma potassium measurement (moles/volume) 3.6 mmol/L 3.6-5.0 Serum or plasma chloride measurement (moles/volume) 108 mmol/L 98-107 Carbon dioxide 20 mmol/L 21-32 Serum or plasma anion gap determination (moles/volume) 10 mmol/L 5-14 Serum or plasma urea nitrogen measurement (mass/volume) 9 mg/dL 7-18 Serum or plasma creatinine measurement (mass/volume) 1.11 mg/dL 0.60-1.30 Serum or plasma urea nitrogen/creatinine mass ratio 8 NRG Serum or plasma creatinine measurement with calculation of estimated glomerular filtration rate 51 NRG Serum or plasma glucose measurement (mass/volume) 154 mg/dL 70-105 Serum or plasma calcium measurement (mass/volume) 9.3 mg/dL 8.5-10.1 Serum or plasma albumin measurement (mass/volume) 4.0 g/dL 3.2-4.5 Serum or plasma phosphate measurement (mass/volume) 3.0 mg/dL 2.3-4.7 Serum or plasma uric acid measurement (mass/volume) - 03/29/18 09:03 Serum or plasma uric acid measurement (mass/volume) 7.1 mg/dL 2.6-7.2 Serum iron and total iron binding capacity panel - 03/29/18 09:03 Serum or plasma iron measurement (mass/volume) 33 % 35- 180 Total iron binding capacity and transferrin saturation measurement 9 % 15-50 Iron binding capacity [mass/volume] in serum or plasma 369 % 280-380 UIBC (unsaturated iron binding capacity) 336 % 55-450 Serum or plasma ferritin measurement (mass/volume) 15.0 % 20.0-177.0 Serum or plasma intact pararthyroid hormone measurement (mass/volume) - 09:03 Serum or plasma intact parathyroid hormone measurement (mass/volume) 139.7 pg/mL 9.0-77.0 Bio-intact parathyroid hormone (PTH) measurement with calcium 9.2 % 8.5-10.5 VITAMIN D 25-HYDROXY - 03/29/18 09:03 VITAMIN D 25-HYDROXY (TOTAL) 17.0 % 30.0-100.0 Encounters ACCT No. Visit Date/Time Discharge Status Pt. Type Provider Facility Loc./Unit Complaint [id number] 02/19/2015 08:29:00 02/19/2015 23:59:59 [facility] Outpatient VALERIE PATINO DO [id number] 02/07/2015 13:27:00 02/07/2015 23:59:59 [facility] Outpatient VALERIE PATINO DO [id number] 01/29/2015 08:50:00 01/29/2015 23:59:59 [facility] Outpatient VALERIE PATINO DO [id number] 12/24/2014 10:30:00 12/24/2014 23:59:59 [facility] Outpatient VALERIE PATINO DO [id number] 11/03/2014 09:50:00 11/03/2014 23:59:59 [facility] Outpatient ZAKIYALSHAHEEN CASTILLO APRN [id number] 11/03/2014 09:50:00 11/03/2014 23:59:59 [facility] Outpatient SHAHEEN SOSA APRN [id number] 09/17/2014 09:53:00 09/17/2014 23:59:59 [facility] Outpatient PATINO DO VALERIE Roberts [id number] 08/15/2014 13:50:00 08/15/2014 23:59:59 [facility] Outpatient ZAKIYALSHAHEEN CASTILLO APRN [id number] 07/27/2014 09:28:00 07/27/2014 23:59:59 CLS Outpatient SHYAM DPMROXY [id number] 06/18/2014 09:14:00 06/18/2014 23:59:59 [facility] Outpatient PATINO DO VALEREI Roberts [id number] 06/18/2014 09:14:00 06/18/2014 23:59:59 [facility] [id number] 05/04/2014 09:29:00 05/04/2014 23:59:59 [facility] Outpatient PATINO DOVALERIE [id number] 04/12/2014 12:55:00 04/12/2014 23:59:59 CLS Outpatient NADIA DDSTILA Patrick [id number] 03/19/2014 09:29:00 03/19/2014 23:59:59 [facility] Outpatient SHAHEEN SOSA APRN [id number] 03/05/2014 10:45:00 03/05/2014 23:59:59 [facility] Outpatient PATINO DOVALERIE [id number] 01/16/2014 08:24:00 01/16/2014 23:59:59 [facility] Outpatient PATINO DOVALERIE [id number] 12/12/2013 08:38:00 12/12/2013 23:59:59 CLS Outpatient FELICIANO MINING SPECULATORNAY Rinaldi [id number] 12/04/2013 10:09:00 12/04/2013 23:59:59 [facility] Outpatient PATINO DOVALERIE [id number] 11/13/2013 08:28:00 11/13/2013 23:59:59 [facility] Outpatient PATINO DOVALERIE [id number] 09/28/2013 12:29:00 09/28/2013 23:59:59 C[facility] Outpatient PATINO DOVALERIE [id number] 09/08/2013 08:49:00 09/08/2013 23:59:59 CLS Outpatient PATINO DOVALERIE [id number] 09/08/2013 08:49:00 09/08/2013 23:59:59 CLS Outpatient PATINO DOVALERIE [id number] 08/24/2013 08:17:00 08/24/2013 23:59:59 [facility] Outpatient PATINO DOVALERIE [id number] 08/03/2013 08:22:00 08/03/2013 23:59:59 C[facility] Outpatient PATINO DOVALERIE [id number] 07/27/2013 14:12:00 07/27/2013 23:59:59 C[facility] Outpatient PATINO DOVALERIE [id number] 07/17/2013 17:28:00 07/17/2013 23:59:59 [facility] Outpatient PATINO DOVALERIE [id number] 02/09/2013 12:25:00 02/09/2013 23:59:59 [facility] Outpatient PATINO DOVALERIE [id number] 01/17/2013 08:50:00 01/17/2013 23:59:59 CLS Outpatient SHAMIKA GOLDBERG MD [id number] 12/28/2012 15:58:00 12/28/2012 23:59:59 CLS Outpatient AMADEO DONIS DO [id number] 12/21/2012 10:41:00 12/21/2012 23:59:59 CLS Outpatient [id number] 12/21/2012 10:41:00 12/21/2012 23:59:59 CLS Outpatient SHAMIKA GOLDBERG MD [id number] 12/13/2012 11:34:00 12/13/2012 23:59:59 CLS Outpatient [id number] 12/01/2012 12:47:00 12/01/2012 23:59:59 CLS Outpatient PATINO DO VALERIE Alejandra [id number] 11/23/2012 14:07:00 11/23/2012 23:59:59 CLS Outpatient [id number] 10/20/2012 09:57:00 10/20/2012 23:59:59 [place] [id number] 08/25/2012 09:51:00 08/25/2012 23:59:59 CLS Outpatient SHAMIKA GOLDBERG MD [id number] 07/17/2013 17:28:00 Document Registration [id number] 03/30/2013 15:06:00 Document Registration [id number] 03/30/2013 15:06:00 Document Registration [id number] 03/23/2013 08:28:00 Document Registration [id number] 03/09/2013 11:38:00 Document Registration [id number] 02/28/2013 15:43:00 Document Registration [id number] 02/28/2013 15:43:00 Document Registration [id number] 03/29/2018 08:43:00 03/29/2018 23:59:59 CLS Outpatient MARYLOU VAUGHN MD [facility] LAB I10,N18.3,E55.9 [id number] 10/27/2017 11:46:00 10/27/2017 23:59:59 CLS Outpatient OSWALDO ALTAMIRANO APRN [facility] RAD E11.42 TYPE 2 DIABETES [id number] 09/13/2017 12:52:00 09/13/2017 23:59:59 CLS Outpatient OSWALDO ALTAMIRANO APRN [facility] RAD ABN MAMMO [id number] 08/05/2017 13:30:00 08/05/2017 23:59:59 CLS Preadmit MARYLOU VAUGHN MD [facility] RAD CKD STAGE 2 N18.2 [id number] 05/28/2017 14:29:00 05/28/2017 23:59:59 CLS Outpatient JUDI RICHARDS MD [facility] RAD M54.2 S09.90XA R51 [id number] 03/08/2017 13:44:00 03/08/2017 23:59:59 CLS Outpatient OSWALDO ALTAMIRANO APRN [facility] RAD ABNORMAL MAMMO [id number] 02/10/2017 08:34:00 02/10/2017 23:59:59 CLS Outpatient OSWALDO ALTAMIRANO APRN [facility] RAD SCREENING BREAST CA [id number] 01/26/2017 09:17:00 01/26/2017 11:45:00 DIS Outpatient LINDA MANSFIELD DO [facility] ENDO EPIGASTRIC PAIN [id number] 01/21/2017 06:55:00 01/21/2017 14:45:00 DIS Outpatient LINDA MANSFIELD DO [facility] PREOP EPIGASTRIC PAIN [id number] 12/22/2016 18:45:00 12/23/2016 18:25:00 DIS Inpatient JUDI RICHARDS MD [facility] 4TH ACUTE PANCREATITIS,CHEST PAIN [id number] 11/03/2016 11:43:00 11/03/2016 23:59:59 CLS Outpatient DAIN MONTANEZ [facility] LAB E78.2 [id number] 08/12/2016 08:05:00 08/12/2016 10:35:00 DIS Outpatient LINDA MANSFIELD DO [facility] CHANGE IN BOWEL HABITS [id number] 08/11/2016 09:52:00 08/11/2016 14:50:00 DIS Outpatient LINDA MANSFIELD DO [facility] CHANGE IN BOWEL HABITS [id number] 08/06/2016 12:42:00 08/06/2016 15:15:00 DIS Outpatient LINDA MANSFIELD DO [facility] PREOP CHANGE IN BOWEL HABITS [id number] 07/14/2016 10:35:00 07/14/2016 23:59:59 CLS Outpatient DAIN MONTANEZ [facility] LAB CAD,DIZZINESS ,HLP,SYNCOPE [id number] 06/13/2016 22:41:00 06/14/2016 02:00:00 DIS Emergency ROHIT CAMPA DO [facility] ER LOC/NECK PAIN/HEADACHE [id number] 11/26/2015 15:58:00 11/26/2015 16:51:00 DIS Emergency ELVA ÁLVAREZ APRN [facility] ER L LEG PAIN [id number] 10/18/2015 19:37:00 10/18/2015 21:56:00 DIS Emergency DAVID NATHAN MD [facility] ER CP [id number] 08/26/2015 20:54:00 08/26/2015 23:00:00 DIS Emergency ELVA ÁLVAREZ APRN [facility] ER ABN BLOOD SUGAR [id number] 05/22/2015 10:54:00 05/22/2015 18:48:00 DIS Outpatient KETAN DAAMS MD [facility] CATH ABN STRESS, CP CAD, HLP, DM [id number] 04/23/2015 11:20:00 04/23/2015 23:59:59 CLS Outpatient KETAN ADAMS MD [facility] CARD CHEST PAIN [id number] 04/21/2015 20:59:00 04/22/2015 13:30:00 DIS Inpatient AMBER HERNANDEZ MD [facility] CSD CP,RENAL INSUFFICIENCY, HYPERGLYCEMIA [id number] 04/14/2015 22:54:00 04/15/2015 00:06:00 DIS Emergency DAVID NATHAN MD [facility] ER BACK PAIN [id number] 02/18/2015 13:18:00 02/18/2015 23:59:59 CLS Outpatient SHAHEEN SOSA MINING SPECULATOR [facility] CARD SYNCOPE [id number] 02/12/2015 10:37:00 02/12/2015 23:59:59 CLS Outpatient SHAHEEN SOSA MINING SPECULATOR [facility] RAD SYNCOPE [id number] 02/04/2015 16:54:00 02/05/2015 12:45:00 DIS Inpatient AMBER HERNANDEZ MD [facility] SURGICAL SYNCOPE;UTI [id number] 01/31/2015 13:02:00 01/31/2015 23:59:59 CLS Outpatient SANDRA SALMERON MINING SPECULATOR [facility] RAD SCREENING [id number] 11/12/2014 23:16:00 11/13/2014 00:23:00 DIS Emergency DAVID NATHAN MD [facility] ER FLU,HIGH BLOOD SUGAR [id number] 07/15/2014 13:56:00 07/15/2014 17:53:00 DIS Emergency BABATUNDE MORRISSEY [facility] ER NUMBNESS IN FACE LUMPS ON SIDE OF HEAD AND DOWN NE [id number] 06/15/2014 12:38:00 06/15/2014 15:20:00 DIS Emergency ELVA ÁLVAREZ APRN [facility] ER FALL/LEFT FOOT INJURY [id number] 04/08/2014 19:23:00 04/08/2014 19:52:00 DIS Emergency SANDRA MC, SHAHID Aldridge [facility] ER MULTIPLE COMPLAINTS [id number] 12/17/2013 18:06:00 12/17/2013 19:56:00 DIS Emergency YOUSUF MC, POP Ford [facility] ER FALL, MULTIPLE INJ [id number] 11/01/2013 01:09:00 11/01/2013 02:59:00 DIS Emergency JAC MC, DAVID James [facility] ER HG BLOOD SUGAR [id number] 02/12/2015 10:38:00 Document Registration [id number] 02/12/2015 10:38:00 Document Registration [id number] 02/12/2015 10:37:00 Document Registration [id number] 02/12/2015 10:37:00 Document Registration [id number] 10/10/2012 12:34:00 Document Registration [id number] 09/22/2012 11:06:00 Document Registration [id number] 09/01/2012 05:50:00 Document Registration [id number] 07/05/2012 04:51:00 Document Registration [id number] 05/01/2012 10:30:00 Document Registration [id number] 04/12/2012 12:24:00 Document Registration [id number] 04/06/2012 14:43:00 Document Registration [id number] 04/04/2012 22:25:00 Document Registration [id number] 01/30/2012 05:44:00 Document Registration [id number] 01/10/2012 04:00:00 Document Registration [id number] 11/19/2011 20:23:00 Document Registration [id number] 11/06/2011 00:38:00 Document Registration [id number] 08/26/2011 10:21:00 Document Registration [id number] 08/22/2011 02:40:00 Document Registration [id number] 08/17/2011 06:47:00 Document Registration [id number] 05/14/2011 10:50:00 Document Registration [id number] 05/12/2011 20:49:00 Document Registration [id number] 04/19/2011 00:05:00 Document Registration [id number] 04/06/2011 00:36:00 Document Registration [id number] 01/23/2011 01:40:00 Document Registration [id number] 04/18/2010 02:16:00 Document Registration [id number] 10/22/2009 15:22:00 Document Registration [id number] 10/01/2009 09:51:00 Document Registration [id number] 07/22/2017 16:08:00 Document Registration [id number] 05/22/2015 10:55:05 [place] Document Registration [id number] 05/14/2017 13:05:00 Document Registration [id number] 03/18/2018 08:00:00 03/18/2018 23:59:59 [facility] OSWALDO [place] [facility] [id number] 03/18/2018 08:00:00 Document Registration [id number] 11/25/2017 08:40:00 Document Registration
[2018-04-21 22:08] LABS: BASOPHILS # (AUTO) 0.1 10^3/uL (0.0-0.1); BASOPHILS % (AUTO) 1 % (0-10); EOSINOPHILS # (AUTO) 0.4 10^3/uL (0.0-0.3); EOSINOPHILS % (AUTO) 5 % (0-10); HEMATOCRIT 36 % (35-52); HEMOGLOBIN 12.2 G/DL (11.5-16.0); LYMPHOCYTES # (AUTO) 2.4 X 10^3 (1.0-4.0); LYMPHOCYTES % (AUTO) 27 % (12-44); MEAN CORPUSCULAR HEMOGLOBIN 31 PG (25-34); MEAN CORPUSCULAR HGB CONC 34 G/DL (32-36); MEAN CORPUSCULAR VOLUME 92 FL (80-99); MONOCYTES # (AUTO) 0.7 X 10^3 (0.0-1.0); MONOCYTES % (AUTO) 8 % (0-12); NEUTROPHILS # (AUTO) 5.4 X 10^3 (1.8-7.8); NEUTROPHILS % (AUTO) 60 % (42-75); PLATELET COUNT 234 10^3/uL (130-400); RED BLOOD COUNT 3.93 10^6/uL (4.35-5.85); RED CELL DISTRIBUTION WIDTH 14.4 % (10.0-14.5); WHITE BLOOD COUNT 8.9 10^3/uL (4.3-11.0)
[2018-04-21 22:14] LABS: INR 1.1 (0.8-1.4)
[2018-04-21] MEDS ORDERED: NITROGLYCERIN 0.4 MG SL TABS BTL 25'S SL PRN (22:15)
[2018-04-21] MEDS ORDERED: ASPIRIN 81 MG CHEW (CHILDREN'S ASA) PO ONE (22:15)
[2018-04-21 22:24] LABS: ALANINE AMINOTRANSFERASE 39 U/L (0-55); ALKALINE PHOSPHATASE 109 U/L (40-136); BILIRUBIN,TOTAL 0.5 MG/DL (0.1-1.0); BUN/CREATININE RATIO 11; CALCIUM 9.3 MG/DL (8.5-10.1); CARBON DIOXIDE 19 MMOL/L (21-32); CHLORIDE 105 MMOL/L (98-107); CREATININE SERUM 1.41 MG/DL (0.60-1.30); GFR ESTIMATED 39; GLUCOSE 286 MG/DL (70-105); MAGNESIUM 2.4 MG/DL (1.8-2.4); POTASSIUM 3.4 MMOL/L (3.6-5.0); SODIUM 136 MMOL/L (135-145); TOTAL PROTEIN 8.5 GM/DL (6.4-8.2)
[2018-04-21 22:25] LABS: MYOGLOBIN SERUM 33.1 NG/ML (10.0-92.0)
[2018-04-21] MEDS ORDERED: LORazepam INJ 2 MG/ML (ATIVAN) VIAL IVP ONE (22:45)
--- NOTE | 2018-04-21 23:24 | ED Chest Pain ---
General Chief Complaint: Chest Pain Stated Complaint: CP/SOB Nursing Triage Note: PATIENT STATES THAT SHE HAS BEEN HAVING CHEST PAIN OFF AND ON TODAY. SHE HAS HAD CHEST PAINS IN THE PAST AND SEES DR. KC BUT STATES THAT HE IS " WATCHING IT. " PAIN IS IN LEFT CHEST AND RADIATES TO HER BACK AND DOWN HER LEFT ARM. Nursing Sepsis Screen: No Definite Risk Source: patient Exam Limitations: no limitations History of Present Illness Date Seen by Provider: Apr 21, 2018 Time Seen by Provider: 21:42 Initial Comments This 58-year-old woman presents to the emergency room with complaints of left- sided chest pain that radiates to her neck and arm that started a couple hours prior to arrival. The pain is intermittent and sharp and tight in nature. She also feels a little short of breath. She seems anxious but denies feeling anxious. She cannot identify any exacerbating or alleviating factors. She has had a thorough cardiac workup in the past. She had a cardiac catheterization in 2014 demonstrating no obstructive disease. She also had a stress test in December 2016 demonstrating [address] Dr. Kc is her primary general manager food. Daphne Valiente is her primary care provider. Patient has had similar episodes in the past but is more concerned about this episode because her gfvpeae-ij-yeo suddenly yesterday of unknown cause. Allergies and Home Medications Allergies Coded Allergies: codeine (Verified Allergy, Unknown, HEART PALPATATION, 02/04/15) Home Medications Albuterol 17 Gm Aerosol, 2 PUFF IH Q4H PRN for SHORTNESS OF BREATH, (Reported) Aspirin 81 Mg Tabec, 81 MG PO Q48H, (Reported) Atorvastatin Calcium 40 Mg Tablet, 40 MG PO HS, (Reported) Cetirizine HCl 10 Mg Tablet, 10 MG PO HS, (Reported) Duloxetine HCl 60 Mg Capsule.dr, 60 MG PO HS, (Reported) Fluticasone Propionate 16 Gm Logan.susp, 1 SPRAY NA DAILY PRN for ALLERGIES, ( Reported) Insulin Determir 1,000 Units/10 Ml Soln, 65 UNITS SQ DAILY, (Reported) TAKE IN AM Insulin Determir 1,000 Units/10 Ml Soln, 70 UNITS SQ HS, (Reported) TAKE AT BEDTIME Liraglutide 0.6 Mg/0.1 Ml Pen.injctr, 1.8 MG SQ HS, (Reported) Multivitamin 1 Each Tab.chew, 1 EACH PO HS, (Reported) Pantoprazole Sodium 40 Mg Tablet.dr, 40 MG PO DAILY Prescribed by: LINDA MANSFIELD on 01/26/17 105 Sucralfate 1 Gm Tablet, 1 GM PO ACHS Prescribed by: LINDA MANSFIELD on 01/26/17 105 [Vit B-12 Gummies] , 2 TAB PO HS, (Reported) [Vitamin C] , 1 TAB PO HS, (Reported) Patient Home Medication List Home Medication List Reviewed: Yes Review of Systems Constitutional: no symptoms reported EENTM: No Symptoms Reported Respiratory: See HPI Cardiovascular: See HPI Gastrointestinal: No Symptoms Reported Genitourinary: No Symptoms Reported Musculoskeletal: no symptoms reported Skin: no symptoms reported Psychiatric/Neurological: See HPI Endocrine: No Symptoms Reported Hematologic/Lymphatic: No Symptoms Reported Past Noexzwh-Bdudtl-Hemymj Hx Past Med/Social Hx: Reviewed and Corrections made Patient Social History Alcohol Use: Denies Use Recreational Drug Use: No Smoking Status: Never a Smoker Type Used: Cigarettes Former Smoker, Quit: Aug 12, 1992 2nd Hand Smoke Exposure: No Recent Foreign Travel: No Contact w/Someone Who Travel: No Recent Infectious Disease Expo: No Recent Hopitalizations: No Physical Abuse: No Sexual Abuse: No Immunizations Up To Date Tetanus Booster (TDap): Less than 5yrs Date of Pneumonia Vaccine: Nov 21, 2016 Date of Influenza Vaccine: Aug 30, 2016 Seasonal Allergies Seasonal Allergies: No Past Medical History Surgeries: Yes (back x2, ) Abdominal, Appendectomy, Ear Surgery, Gallbladder, Hysterectomy, Orthopedic Respiratory: No Currently Using CPAP: No Currently Using BIPAP: No Cardiac: Yes High Cholesterol, Syncope Neurological: Yes Neuropathy 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 Disorders: No Female 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 Disorders: 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, 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 Sexually Transmitted Disease: No HIV/AIDS: No Genitourinary: No Renal Failure Gastrointestinal: No Gastroesophageal Reflux Musculoskeletal: Yes Arthritis, Chronic Back Pain Endocrine: Yes Diabetes, Insulin dep Cataract Cancer: No Psychosocial: Yes Anxiety, Bipolar, Depression Nursing Suicide Risk Score: 0 Integumentary: Yes (SORES ON ARMS) Blood Disorders: No Family Medical History Reviewed Nursing Family Hx FH: diabetes mellitus FH: heart disease No Pertinent Family Hx, Heart Disease Physical Exam Vital Signs Vital Signs - First Documented 04/21/18 21:40 Temp 98.2 Pulse 75 Resp 18 B/P (MAP) 132/82 (99) Pulse Ox 100 O2 Delivery Room Air Capillary Refill : Less Than 3 Seconds General Appearance: WD/WN, Anxious HEENT: PERRL/EOMI, Normal ENT Inspection Neck: Normal Inspection Respiratory: Chest Non Tender, Lungs Clear, Normal Breath Sounds, No Accessory Muscle Use, No Respiratory Distress Cardiovascular: Regular Rate, Rhythm, No Edema, No Murmur Gastrointestinal: Normal Bowel Sounds, Non Tender, Soft Extremity: Normal Inspection, Non Tender, No Calf Tenderness, No Pedal Edema, Other (negative Xochilt) Neurologic/Psychiatric: Alert, Oriented x3, No Motor/Sensory Deficits, Normal Mood/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, 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 Norm as Tested Skin: Normal Color, Warm/Dry Progress/Results/Core Measures Results/Orders Lab Results Laboratory Tests Test 04/21/18 21:55 04/21/18 23:24 Range/Units White Blood Count 8.9 4.3-11.0 10^3/uL Red Blood Count 3.93 L 4.35-5.85 10^6/uL Hemoglobin 12.2 11.5-16.0 G/DL Hematocrit 36 35-52 % Mean Corpuscular Volume 92 80-99 FL Mean Corpuscular Hemoglobin 31 25-34 PG Mean Corpuscular Hemoglobin Concent 34 32-36 G/DL Red Cell Distribution Width 14.4 10.0-14.5 % Platelet Count 234 130-400 10^3/uL Mean Platelet Volume 10.0 7.4-10.4 FL Neutrophils (%) (Auto) 60 42-75 % Lymphocytes (%) (Auto) 27 12-44 % Monocytes (%) (Auto) 8 0-12 % Eosinophils (%) (Auto) 5 0-10 % Basophils (%) (Auto) 1 0-10 % Neutrophils # (Auto) 5.4 1.8-7.8 X 10^3 Lymphocytes # (Auto) 2.4 1.0-4.0 X 10^3 Monocytes # (Auto) 0.7 0.0-1.0 X 10^3 Eosinophils # (Auto) 0.4 H 0.0-0.3 10^3/uL Basophils # (Auto) 0.1 0.0-0.1 10^3/uL Prothrombin Time 14.0 12.2-14.7 SEC INR Comment 1.1 0.8-1.4 Activated Partial Thromboplast Time 30 24-35 SEC Sodium Level 136 135-145 MMOL/L Potassium Level 3.4 L 3.6-5.0 MMOL/L Chloride Level 105 98-107 MMOL/L Carbon Dioxide Level 19 L 21-32 MMOL/L Anion Gap 12 5-14 MMOL/L Blood Urea Nitrogen 15 7-18 MG/DL Creatinine 1.41 H 0.60-1.30 MG/DL Estimat Glomerular Filtration Rate 39 BUN/Creatinine Ratio 11 Glucose Level 286 H 70-105 MG/DL Calcium Level 9.3 8.5-10.1 MG/DL Magnesium Level 2.4 1.8-2.4 MG/DL Total Bilirubin 0.5 0.1-1.0 MG/DL Aspartate Amino Transf (AST/SGOT) 38 H 5-34 U/L Alanine Aminotransferase (ALT/SGPT) 39 0-55 U/L Alkaline Phosphatase 109 40-136 U/L Myoglobin 33.1 10.0-92.0 NG/ML Troponin I < 0.30 < 0.30 <0.30 NG/ML Total Protein 8.5 H 6.4-8.2 GM/DL Albumin 4.0 3.2-4.5 GM/DL My Orders Orders - SHAHID FLORES MD Cbc With Automated Diff (04/21/18 21:59) Magnesium (04/21/18 21:59) Chest 1 View, Ap/Pa Only (04/21/18 21:59) Ekg Tracing (04/21/18 21:59) Cardiac Profile 1 (04/21/18 21:59) Comprehensive Metabolic Panel (04/21/18 21:59) Myoglobin Serum (04/21/18 21:59) Protime With Inr (04/21/18 21:59) Partial Thromboplastin Time (04/21/18 21:59) O2 (04/21/18 21:59) Monitor-Rhythm Ecg Trace Only (04/21/18 21:59) Saline Lock/Iv-Start (04/21/18 21:59) Aspirin Chewable Tablet (Baby Aspirin Ch (04/21/18 22:15) Nitroglycerin 0.4 Mg Btl 25's (Nitrostat (04/21/18 22:15) Lorazepam Injection (Ativan Injection) (04/21/18 22:45) Troponin I (04/21/18 23:19) Medications Given in ED Current Medications Medications Dose Ordered Sig/Josh Route Start Time Stop Time Status Last Admin Dose Admin Aspirin 324 mg ONCE ONCE PO 04/21/18 22:15 04/21/18 22:16 DC 04/21/18 22:15 324 MG Lorazepam 0.5 mg ONCE ONCE IVP 04/21/18 22:45 04/21/18 22:46 DC 04/21/18 22:53 0.5 MG Nitroglycerin 0.4 mg UD PRN SL 04/21/18 22:15 04/22/18 00:25 DC 04/21/18 22:32 0.4 MG Vital Signs/I&O 04/21/18 04/21/18 04/22/18 21:40 22:03 00:25 Temp 98.2 98.2 Pulse 75 75 Resp 18 18 B/P (MAP) 132/82 (99) 140/90 (99) Pulse Ox 100 100 100 O2 Delivery Room Air Room Air Room Air Blood Pressure Mean: 99 Progress Progress Note #1: Time: 23:20 Progress Note Workup was unremarkable. Nitroglycerin and aspirin did not affect her pain. I did offer Ativan as patient appeared anxious. She did except Ativan. After Ativan pain completely resolved and patient did admit at that time her pain may be related to anxiety from recent events. She also elaborated that she has been having episodes of similar chest pain that she usually ignores. However, given recent events she became anxious about this episode of pain. She states these episodes of pain were also happening prior to her most recent stress test and that Dr. Kc is aware of them. A repeat troponin will be obtained as a precaution before patient is discharged. Progress Note #2: Time: 00:11 Progress Note Patient remains pain-free after Ativan. Repeat troponin was negative. Initial ECG Impression Date: Apr 21, 2018 Initial ECG Impression Time: 21:42 Initial ECG Rate: 77 Initial ECG Rhythm: Normal Sinus Initial ECG Intervals: Normal Initial ECG Impression: Normal Comment Normal sinus rhythm with no ST elevation or depression. No abnormal intervals or axis deviation. Departure Impression Primary Impression: Chest pain Qualified Codes: R07.9 - Chest pain, unspecified Additional Impression: Anxiety Disposition: 01 HOME, SELF-CARE Condition: Improved Departure-Patient Inst. Decision time for Depature: 00:13 Referrals: VALERIE PATINO DO (PCP) Primary Care Physician OSWALDO ALTAMIRANO APRN (Family) Primary Care Physician Patient Instructions: Chest Pain (DC) Add. Discharge Instructions: Continue with your medications as previously prescribed. Follow-up with Dr. Kc and your primary care provider as soon as possible. Return to care if symptoms worsen again. All discharge instructions reviewed with patient and/or family. Voiced understanding. Copy Copies To 1: KETAN KC MD Copies To 2: VALERIE PATINO JOSHUA T MD Apr 21, 2018 23:24
[2018-04-22 00:25] VITALS: BP 140/90
--- NOTE | 2018-04-22 07:37 | Diagnostic Imaging Report ---
INDICATION: Chest pain. Portable chest 7:22 p.m. Heart size and pulmonary vascularity are normal. Lungs are clear. There are no effusions or pneumothoraces. IMPRESSION: Negative chest. Dictated by: Dictated on workstation # [id number]
== END 2018-04-22 00:25 | disposition home or self-care (01) ==
LOC: EDUNIT# 21:38 → ER 21:40
DX: R07.89 Other chest pain (principal); F41.9 Anxiety disorder, unspecified; E78.00 Pure hypercholesterolemia, unspecified; K21.9 Gastro-esophageal reflux disease without esophagitis; F31.9 Bipolar disorder, unspecified; E11.40 Type 2 diabetes mellitus with diabetic neuropathy, unspecified; Z87.448 Personal history of other diseases of urinary system; Z88.5 Allergy status to narcotic agent; Z79.82 Long term (current) use of aspirin; Z79.4 Long term (current) 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; Z87.891 Personal history of nicotine dependence; Z90.89 Acquired absence of other organs; Z90.710 Acquired absence of both cervix and uterus
CPT/HCPCS: 36415; 71045; 80053; 83735; 83874; 84484; 85025; 85610; 85730; 93005; 93041; 96374

== ENCOUNTER → 2018-08-23 | Outpatient (CLI) | payer MEDICAID ==
[~2018-08-23] MED LIST changes: +METF-399 PO; -METF10002 PO
[2018-08-23 09:46] LABS: BASOPHILS # (AUTO) 0.1 10^3/uL (0.0-0.1); BASOPHILS % (AUTO) 1 % (0-10); EOSINOPHILS # (AUTO) 1.1 10^3/uL (0.0-0.3); EOSINOPHILS % (AUTO) 13 % (0-10); HEMATOCRIT 40 % (35-52); HEMOGLOBIN 13.7 G/DL (11.5-16.0); LYMPHOCYTES # (AUTO) 1.7 X 10^3 (1.0-4.0); LYMPHOCYTES % (AUTO) 22 % (12-44); MEAN CORPUSCULAR HEMOGLOBIN 32 PG (25-34); MEAN CORPUSCULAR HGB CONC 34 G/DL (32-36); MEAN CORPUSCULAR VOLUME 93 FL (80-99); MEAN PLATELET VOLUME 10.1 FL (7.4-10.4); MONOCYTES # (AUTO) 0.6 X 10^3 (0.0-1.0); MONOCYTES % (AUTO) 7 % (0-12); NEUTROPHILS # (AUTO) 4.6 X 10^3 (1.8-7.8); NEUTROPHILS % (AUTO) 57 % (42-75); PLATELET COUNT 224 10^3/uL (130-400); RED BLOOD COUNT 4.34 10^6/uL (4.35-5.85); RED CELL DISTRIBUTION WIDTH 12.7 % (10.0-14.5)
[2018-08-23 09:49] LABS: BILIRUBIN,URINE NEGATIVE (NEGATIVE); CLARITY,URINE CLEAR; COLOR,URINE YELLOW; GLUCOSE, URINE (UA) 4+ (NEGATIVE); KETONES,URINE NEGATIVE (NEGATIVE); LEUKOCYTE ESTERASE ,URINE 1+ (NEGATIVE); NITRITE,URINE NEGATIVE (NEGATIVE); PH,URINE 5 (5-9); PROTEIN,URINE NEGATIVE (NEGATIVE); UROBILINOGEN,URINE NORMAL (NORMAL)
[2018-08-23 09:59] LABS: BACTERIA,URINE TRACE /HPF
[2018-08-23 10:05] LABS: ALBUMIN 4.2 GM/DL (3.2-4.5); CALCIUM 9.8 MG/DL (8.5-10.1); CREATININE SERUM 1.28 MG/DL (0.60-1.30); PHOSPHORUS 3.2 MG/DL (2.3-4.7); POTASSIUM 3.7 MMOL/L (3.6-5.0); URIC ACID 6.9 MG/DL (2.6-7.2)
[2018-08-23 10:14] LABS: EOSINOPHILS % (MANUAL) 11 %; LYMPHOCYTES % (MANUAL) 30 %; MONOCYTES % (MANUAL) 7 %; NEUTROPHILS % (MANUAL) 52 %
[2018-08-23 10:15] LABS: RBC MORPH NORMAL
== END ==
LOC: LAB 09:20
PROVIDERS: ATTEND Internal Medicine Nephrology
DX: I12.9 Hypertensive chronic kidney disease with stage 1 through stage 4 chronic kidney disease, or unspecified chronic kidney disease (principal); N18.3 Chronic kidney disease, stage 3 (moderate); E55.9 Vitamin D deficiency, unspecified; E87.2 Acidosis; D50.9 Iron deficiency anemia, unspecified; R82.90 Unspecified abnormal findings in urine
CPT/HCPCS: 36415; 80069; 81000; 82306; 82570; 82728; 83540; 83970; 84156; 84550; 85007; 85027; 87088

== ENCOUNTER 2018-10-19 10:27 | Emergency (ER) | payer MEDICAID ==
[~2018-10-19] VITALS: Ht 170.2 cm; Wt 88.5 kg
[2018-10-19 11:34] LABS: BILIRUBIN,URINE NEGATIVE (NEGATIVE); CLARITY,URINE CLEAR; COLOR,URINE YELLOW; GLUCOSE, URINE (UA) 4+ (NEGATIVE); KETONES,URINE NEGATIVE (NEGATIVE); LEUKOCYTE ESTERASE ,URINE 1+ (NEGATIVE); NITRITE,URINE NEGATIVE (NEGATIVE); PH,URINE 7 (5-9); PROTEIN,URINE NEGATIVE (NEGATIVE); UROBILINOGEN,URINE NORMAL (NORMAL)
[2018-10-19 11:37] LABS: BASOPHILS # (AUTO) 0.1 10^3/uL (0.0-0.1); BASOPHILS % (AUTO) 1 % (0-10); EOSINOPHILS # (AUTO) 0.4 10^3/uL (0.0-0.3); EOSINOPHILS % (AUTO) 5 % (0-10); HEMATOCRIT 42 % (35-52); HEMOGLOBIN 14.4 G/DL (11.5-16.0); LYMPHOCYTES % (AUTO) 25 % (12-44); MEAN CORPUSCULAR HEMOGLOBIN 32 PG (25-34); MEAN CORPUSCULAR HGB CONC 34 G/DL (32-36); MEAN CORPUSCULAR VOLUME 94 FL (80-99); MEAN PLATELET VOLUME 9.9 FL (7.4-10.4); MONOCYTES # (AUTO) 0.6 X 10^3 (0.0-1.0); MONOCYTES % (AUTO) 8 % (0-12); NEUTROPHILS # (AUTO) 4.8 X 10^3 (1.8-7.8); NEUTROPHILS % (AUTO) 61 % (42-75); PLATELET COUNT 242 10^3/uL (130-400); RED BLOOD COUNT 4.49 10^6/uL (4.35-5.85); RED CELL DISTRIBUTION WIDTH 12.6 % (10.0-14.5); WHITE BLOOD COUNT 7.9 10^3/uL (4.3-11.0)
[2018-10-19 11:50] LABS: ALBUMIN 4.2 GM/DL (3.2-4.5); BILIRUBIN,TOTAL 0.7 MG/DL (0.1-1.0); CALCIUM 9.9 MG/DL (8.5-10.1); CREATININE SERUM 1.3 MG/DL (0.60-1.30); POTASSIUM 3.9 MMOL/L (3.6-5.0); TOTAL PROTEIN 8.3 GM/DL (6.4-8.2)
[2018-10-19 11:52] LABS: BACTERIA,URINE NEGATIVE /HPF; YEAST,URINE RARE /HPF
[2018-10-19] MEDS ORDERED: NS IV 1000 ML 1,000 ML IV SCH (12:15)
[2018-10-19] MEDS ORDERED: fentaNYL INJECTION 100 MCG/2 ML AMP IVP ONE ×2 (12:15→13:45)
[2018-10-19] MEDS ORDERED: RECEIVED CONTRAST (Hold Metformin) IV SCH (12:15)
[2018-10-19] MEDS ORDERED: IOHEXOL 350 MG/ML 100 ML (OMNIPAQUE 350) VIAL IV ONE (12:15)
[2018-10-19] MEDS ORDERED: NS 100 ML (IVPB) BAG IV ONE (12:15)
--- NOTE | 2018-10-19 12:50 | ED Abdominal Pain ---
General Chief Complaint: Abdominal/GI Problems Stated Complaint: ABD PAIN Nursing Triage Note: Pt c/o RUQ pain. Pt was seen at [facility] this morning and sent to ER to be evaluated. Pt reports pain x1 week. Pt denies n/v/d. Sepsis Screen: No Definite Risk Source of Information: Patient Exam Limitations: No Limitations History of Present Illness Date Seen by Provider: Oct 19, 2018 Time Seen by Provider: 11:20 Initial Comments 58-year-old female who presents to the emergency room with complaints of right upper quadrant abdominal pain for one week. She was seen today at [facility] and sent to the emergency room to be evaluated. She denies nausea , vomiting, diarrhea. Describes her pain as sharp stabbing that starts in her right upper quadrant and radiates to her back. She reports that this feels like the time that she had pancreatitis. Timing/Duration: 1 Week Severity/Quality: Sharp, Stabbing Location: RUQ Radiation: Back Associated Symptoms: Back Pain; No Nausea/Vomiting Allergies and Home Medications Allergies Coded Allergies: codeine (Verified Allergy, Unknown, HEART PALPATATION, 02/04/15) Home Medications Albuterol 17 Gm Aerosol, 2 PUFF IH Q4H PRN for SHORTNESS OF BREATH, (Reported) Aspirin 81 Mg Tabec, 81 MG PO Q48H, (Reported) Atorvastatin Calcium 40 Mg Tablet, 40 MG PO HS, (Reported) Cetirizine HCl 10 Mg Tablet, 10 MG PO HS, (Reported) Duloxetine HCl 60 Mg Capsule.dr, 60 MG PO HS, (Reported) Fluticasone Propionate 16 Gm Frost.susp, 1 SPRAY NA DAILY PRN for ALLERGIES, ( Reported) Hydrocodone Bit/Acetaminophen 1 Tab Tab, 1-2 EACH PO Q6H PRN for PAIN-MODERATE Prescribed by: GEOVANI LUTZ on 10/19/18 1357 Insulin Determir 1,000 Units/10 Ml Soln, 65 UNITS SQ DAILY, (Reported) TAKE IN AM Insulin Determir 1,000 Units/10 Ml Soln, 70 UNITS SQ HS, (Reported) TAKE AT BEDTIME Liraglutide 0.6 Mg/0.1 Ml Pen.injctr, 1.8 MG SQ HS, (Reported) Multivitamin 1 Each Tab.chew, 1 EACH PO HS, (Reported) Ondansetron HCl 4 Mg Tab, 4 MG PO Q4H PRN for NAUSEA/VOMITING-1ST LINE Prescribed by: GEOVANI LUTZ on 10/19/18 1357 Pantoprazole Sodium 40 Mg Tablet.dr, 40 MG PO DAILY Prescribed by: LINDA MANSFIELD on 01/26/17 1053 Sucralfate 1 Gm Tablet, 1 GM PO ACHS Prescribed by: LINDA MANSFIELD on 01/26/17 1053 [Vit B-12 Gummies] , 2 TAB PO HS, (Reported) [Vitamin C] , 1 TAB PO HS, (Reported) Patient Home Medication List Home Medication List Reviewed: Yes Review of Systems Review of Systems Constitutional: no symptoms reported, see HPI Gastrointestinal: See HPI, Abdominal Pain; Denies Constipated, Denies Diarrhea , Denies Nausea, Denies Vomiting All Other Systems Reviewed Negative Unless Noted: Yes Past Jiybrsj-Mirelv-Iwzflj Hx Past Med/Social Hx: Reviewed Nursing Past Med/Soc Hx Patient Social History Alcohol Use: Denies Use Recreational Drug Use: No Smoking Status: Former Smoker Type Used: Cigarettes Former Smoker, Quit: Aug 12, 1992 2nd Hand Smoke Exposure: No Recent Foreign Travel: No Contact w/Someone Who Travel: No Recent Infectious Disease Expo: No Recent Hopitalizations: No Immunizations Up To Date Tetanus Booster (TDap): Less than 5yrs Date of Pneumonia Vaccine: Nov 21, 2016 Date of Influenza Vaccine: Aug 30, 2016 Seasonal Allergies Seasonal Allergies: No Past Medical History Surgeries: Yes (back x2, ) Abdominal, Appendectomy, Ear Surgery, Gallbladder, Hysterectomy, Orthopedic Respiratory: No Currently Using CPAP: No Currently Using BIPAP: No Cardiac: Yes High Cholesterol, Syncope Neurological: Yes Neuropathy 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 Disorders: No Female 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 Disorders: 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, 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 Sexually Transmitted Disease: No HIV/AIDS: No Genitourinary: No Renal Failure Gastrointestinal: No Gastroesophageal Reflux Musculoskeletal: Yes Arthritis, Chronic Back Pain Endocrine: Yes Diabetes, Insulin dep Cataract Cancer: No Psychosocial: Yes Anxiety, Bipolar, Depression Integumentary: Yes (SORES ON ARMS) Blood Disorders: No Family Medical History Reviewed Nursing Family Hx FH: diabetes mellitus FH: heart disease No Pertinent Family Hx, Heart Disease Physical Exam Vital Signs Vital Signs - First Documented 10/19/18 10:54 Temp 98.4 Pulse 65 Resp 18 B/P (MAP) 129/75 (93) Pulse Ox 98 O2 Delivery Room Air Capillary Refill : Less Than 3 Seconds Height/Weight/BMI Height: 5'7.00" Weight: 195lbs. 0oz. 88.873932ar; 29.3 BMI Method:Stated General Appearance: WD/WN, no apparent distress HEENT: PERRL/EOMI, normal ENT inspection, TMs normal, pharynx normal Respiratory: chest non-tender, lungs clear, normal breath sounds, no respiratory distress, no accessory muscle use Cardiovascular: normal peripheral pulses, regular rate, rhythm, no edema, no gallop, no JVD, no murmur Gastrointestinal: normal bowel sounds, soft, no organomegaly, no pulsatile mass , tenderness (right upper quadrant tenderness) Extremities: normal capillary refill Back: normal inspection, no CVA tenderness, no vertebral tenderness Neurologic/Psychiatric: alert, normal mood/affect, oriented x 3 Skin: normal color, warm/dry Progress/Results/Core Measures Results/Orders Lab Results Laboratory Tests Test 10/19/18 11:17 10/19/18 11:20 Range/Units White Blood Count 7.9 4.3-11.0 10^3/uL Red Blood Count 4.49 4.35-5.85 10^6/uL Hemoglobin 14.4 11.5-16.0 G/DL Hematocrit 42 35-52 % Mean Corpuscular Volume 94 80-99 FL Mean Corpuscular Hemoglobin 32 25-34 PG Mean Corpuscular Hemoglobin Concent 34 32-36 G/DL Red Cell Distribution Width 12.6 10.0-14.5 % Platelet Count 242 130-400 10^3/uL Mean Platelet Volume 9.9 7.4-10.4 FL Neutrophils (%) (Auto) 61 42-75 % Lymphocytes (%) (Auto) 25 12-44 % Monocytes (%) (Auto) 8 0-12 % Eosinophils (%) (Auto) 5 0-10 % Basophils (%) (Auto) 1 0-10 % Neutrophils # (Auto) 4.8 1.8-7.8 X 10^3 Lymphocytes # (Auto) 2.0 1.0-4.0 X 10^3 Monocytes # (Auto) 0.6 0.0-1.0 X 10^3 Eosinophils # (Auto) 0.4 H 0.0-0.3 10^3/uL Basophils # (Auto) 0.1 0.0-0.1 10^3/uL Sodium Level 141 135-145 MMOL/L Potassium Level 3.9 3.6-5.0 MMOL/L Chloride Level 105 98-107 MMOL/L Carbon Dioxide Level 25 21-32 MMOL/L Anion Gap 11 5-14 MMOL/L Blood Urea Nitrogen 10 7-18 MG/DL Creatinine 1.30 0.60-1.30 MG/DL Estimat Glomerular Filtration Rate 42 BUN/Creatinine Ratio 8 Glucose Level 177 H 70-105 MG/DL Calcium Level 9.9 8.5-10.1 MG/DL Corrected Calcium 9.7 8.5-10.1 MG/DL Total Bilirubin 0.7 0.1-1.0 MG/DL Aspartate Amino Transf (AST/SGOT) 26 5-34 U/L Alanine Aminotransferase (ALT/SGPT) 34 0-55 U/L Alkaline Phosphatase 120 40-136 U/L Total Protein 8.3 H 6.4-8.2 GM/DL Albumin 4.2 3.2-4.5 GM/DL Amylase Level 157 H 25-125 U/L Lipase 57 8-78 U/L Urine Color YELLOW Urine Clarity CLEAR Urine pH 7 5-9 Urine Specific Voss 1.005 L 1.016-1.022 Urine Protein NEGATIVE NEGATIVE Urine Glucose (UA) 4+ H NEGATIVE Urine Ketones NEGATIVE NEGATIVE Urine Nitrite NEGATIVE NEGATIVE Urine Bilirubin NEGATIVE NEGATIVE Urine Urobilinogen NORMAL NORMAL MG/DL Urine Leukocyte Esterase 1+ H NEGATIVE Urine RBC (Auto) NEGATIVE NEGATIVE Urine RBC NONE /HPF Urine WBC 2-5 /HPF Urine Squamous Epithelial Cells 2-5 /HPF Urine Renal Epithelial Cells NONE /HPF Urine Crystals NONE /LPF Urine Bacteria NEGATIVE /HPF Urine Casts NONE /LPF Urine Mucus NEGATIVE /LPF Urine Yeast RARE /HPF Urine Culture Indicated NO My Orders Orders - GEOVANI LUTZ Comprehensive Metabolic Panel (10/19/18 11:27) Lipase (10/19/18 11:27) Amylase (10/19/18 11:27) Ua Culture If Indicated (10/19/18 11:27) Saline Lock/Iv-Start (10/19/18 11:27) Cbc With Automated Diff (10/19/18 11:27) Ns Iv 1000 Ml (Sodium Chloride 0.9%) (10/19/18 12:15) Fentanyl Injection (Sublimaze Injection (10/19/18 12:15) Ct Abdomen/Pelvis W (10/19/18 12:06) Iohexol Injection (Omnipaque 350 Mg/Ml 1 (10/19/18 12:15) Contrast Received (Contrast Received) (10/19/18 12:15) Ns (Ivpb) (Sodium Chloride 0.9% Ivpb Bag (10/19/18 12:15) Fentanyl Injection (Sublimaze Injection (10/19/18 13:45) Iv Push 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 I have informed her of her imaging and laboratory findings. Her pain has resolved after pain medication. She agrees with plan of care, plans for discharge, return precautions were given. Diagnostic Imaging Diagonstic Imaging: CT Plain Films/CT/US/NM/MRI: abdomen, pelvis Comments [facility] [place], [place] NAME: AUSTYN LIMA [facility] REC#: [id number] PT STATUS: REG ER : 1960 PHYSICIAN: GEOVANI LUTZ ADMIT DATE: 10/19/18/ER Draft Date of Exam:10/19/18 CT ABDOMEN/PELVIS W PROCEDURE: CT abdomen and pelvis with contrast. TECHNIQUE: Multiple contiguous axial images were obtained through the abdomen and pelvis after administration of intravenous contrast. DATE: October 19, 2018. COMPARISON: None. INDICATION: 58-year-old female, right-sided abdominal pain. History of pancreatitis. FINDINGS: The visualized portions of the lungs are clear. The heart is not enlarged. There is no pericardial effusion. The liver is normal in size and contour. There is no identified liver lesion. The main, right, and left portal veins are patent. The gallbladder is not seen and may be surgically absent. There is no intrahepatic or extrahepatic bile duct dilation. The main pancreatic duct is not abnormally dilated. Unremarkable appearance of the pancreatic parenchyma. The spleen is nonenlarged. Small splenic calcifications likely relate to sequela of prior granulomatous disease. The adrenal glands are unremarkable. Unremarkable appearance of the renal parenchyma. Urinary collecting systems are not distended. There is no identified renal or ureteral stone. The urinary bladder is unremarkable. The uterus is not seen and may be surgically absent. The intestinal tract is not distended. The appendix is not well seen. There are no secondary imaging findings to suggest acute appendicitis. There is no free intraperitoneal air. There is no drainable fluid collection. There is no free pelvic fluid. There are atherosclerotic calcifications. There is a retroaortic left renal vein. There is no identified abnormally enlarged lymph node within the abdomen or pelvis which meets CT size criteria for adenopathy. There are multilevel degenerative changes of the spine. There is no identified acute bony abnormality. There are postoperative changes of the lumbosacral spine. There is nonspecific subcutaneous edema within the anterior abdomen. There is no identified focal subcutaneous fluid collection. IMPRESSION: CT ABDOMEN AND PELVIS. 1. No evidence of acute pancreatitis or other acute abnormality within the abdomen or pelvis. 2. Nonspecific subcutaneous edema within the anterior abdomen without focal fluid collection. Dictated on workstation # [id number] Dict: 10/19/18 1334 Trans: 10/19/18 1347 [facility] [id number] Interpreted by: MERT MARIN MD Electronically signed by: Reviewed: Reviewed by Me Departure Impression Primary Impression: Uncontrolled diabetes mellitus Additional Impression: Elevated amylase Disposition: 01 HOME, SELF-CARE Condition: Stable/Unchanged Departure-Patient Inst. Decision time for Depature: 13:19 Referrals: [facility]/K (PCP/Family) Primary Care Physician Patient Instructions: Pancreatitis (DC) Add. Discharge Instructions: Take medications as directed. Monitor blood sugars closely and adjust your insulin as needed. Clear liquid diet for the next few days. Follow-up with community within 1 week for recheck. Return back to the emergency room for any worsening symptoms or concerns as needed. All discharge instructions reviewed with patient and/or family. Voiced understanding. Scripts Ondansetron HCl (Zofran) 4 Mg Tab 4 MG PO Q4H PRN for NAUSEA/VOMITING-1ST LINE, #14 TAB Prov: GEOVANI LUTZ 10/19/18 Hydrocodone Bit/Acetaminophen (Hydrocodone/Acetaminophen 5/325mg Tablet) 1 Tab Tab 1-2 EACH PO Q6H PRN for PAIN-MODERATE MDD 10, #14 TAB Prov: GEOVANI LUTZ 10/19/18 GEOVANI LUTZ Oct 19, 2018 12:50
--- NOTE | 2018-10-19 13:48 | Diagnostic Imaging Report ---
PROCEDURE: CT abdomen and pelvis with contrast. TECHNIQUE: Multiple contiguous axial images were obtained through the abdomen and pelvis after administration of intravenous contrast. DATE: October 19, 2018. COMPARISON: None. INDICATION: 58-year-old female, right-sided abdominal pain. History of pancreatitis. FINDINGS: The visualized portions of the lungs are clear. The heart is not enlarged. There is no pericardial effusion. The liver is normal in size and contour. There is no identified liver lesion. The main, right, and left portal veins are patent. The gallbladder is not seen and may be surgically absent. There is no intrahepatic or extrahepatic bile duct dilation. The main pancreatic duct is not abnormally dilated. Unremarkable appearance of the pancreatic parenchyma. The spleen is nonenlarged. Small splenic calcifications likely relate to sequela of prior granulomatous disease. The adrenal glands are unremarkable. Unremarkable appearance of the renal parenchyma. Urinary collecting systems are not distended. There is no identified renal or ureteral stone. The urinary bladder is unremarkable. The uterus is not seen and may be surgically absent. The intestinal tract is not distended. The appendix is not well seen. There are no secondary imaging findings to suggest acute appendicitis. There is no free intraperitoneal air. There is no drainable fluid collection. There is no free pelvic fluid. There are atherosclerotic calcifications. There is a retroaortic left renal vein. There is no identified abnormally enlarged lymph node within the abdomen or pelvis which meets CT size criteria for adenopathy. There are multilevel degenerative changes of the spine. There is no identified acute bony abnormality. There are postoperative changes of the lumbosacral spine. There is nonspecific subcutaneous edema within the anterior abdomen. There is no identified focal subcutaneous fluid collection. IMPRESSION: CT ABDOMEN AND PELVIS. 1. No evidence of acute pancreatitis or other acute abnormality within the abdomen or pelvis. 2. Nonspecific subcutaneous edema within the anterior abdomen without focal fluid collection. Dictated by: Dictated on workstation # [id number]
[2018-10-19] MEDS ORDERED: ONDN4T PO (13:57)
[2018-10-19] MEDS ORDERED: ACHD5005 PO (13:57)
[2018-10-19 14:35] VITALS: BP 135/74
== END 2018-10-19 14:35 | disposition home or self-care (01) ==
LOC: EDUNIT# 10:27 → ER 10:30
DX: E11.40 Type 2 diabetes mellitus with diabetic neuropathy, unspecified (principal); R74.8 Abnormal levels of other serum enzymes; E78.00 Pure hypercholesterolemia, unspecified; K21.9 Gastro-esophageal reflux disease without esophagitis; F41.9 Anxiety disorder, unspecified; F31.9 Bipolar disorder, unspecified; Z87.448 Personal history of other diseases of urinary system; Z88.5 Allergy status to narcotic agent; Z82.49 Family history of ischemic heart disease and other diseases of the circulatory system; Z79.51 Long term (current) use of inhaled steroids; Z79.82 Long term (current) use of aspirin; Z79.4 Long term (current) 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; Z87.19 Personal history of other diseases of the digestive system; Z87.891 Personal history of nicotine dependence; Z90.49 Acquired absence of other specified parts of digestive tract; Z90.710 Acquired absence of both cervix and uterus; Z98.890 Other specified postprocedural states
CPT/HCPCS: 36415; 74177; 80053; 81000; 82150; 83690; 85025; 96361; 96374; 96376

== ENCOUNTER 2018-11-01 18:27 | Emergency (ER) | payer MEDICAID ==
[~2018-11-01] VITALS: Ht 170.2 cm; Wt 89.8 kg
[~2018-11-01 18:27] MED LIST changes: +ACHD5005 PO; +ONDN4T PO
--- OUTSIDE RECORDS SUMMARY | 2018-11-01 18:34 | XMS REPORT ---
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 207782251 Problem Syncope, unspecified syncope type R55 Active 486470272 Problem Stage 2 chronic kidney disease N18.2 Active 934697160 Problem Type 2 diabetes mellitus with diabetic polyneuropathy E11.42 Active 14208456 Problem Episodic mood disorder F39 Active 15286248 Problem Dyslipidemia E78.5 Active 047175709 Problem Serum creatinine raised R79.89 Active 526346639 Problem Lumbago with sciatica, left side M54.42 Active 933936267 Problem Generalized anxiety disorder F41.1 Active 19672359 Problem Lumbago with sciatica, right side M54.41 Active 618797812 ALLERGIES No Information ENCOUNTERS Encounter Location Date Diagnosis [facility] [address] [id number], [place] [address] Nov, [facility] [id number] [place] [address] 41604- 8782 Oct, [facility] [address] [place] [address] 05132- 5158 Oct, [facility] [address] [id number], [place] [address] Oct, Acute pancreatitis, unspecified complication status, unspecified pancreatitis type K85.90 [place] [address] [place] [address] 02918- 9776 Sep, prison 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 [place] [id number] [place] [address] 51841- 8060 Sep, [place] [id number] [place] [address] 87687- 5393 Sep, Type 2 diabetes mellitus with diabetic polyneuropathy E11.42 ; Stage 2 chronic kidney disease N18.2 and Recurrent major depressive disorder, in partial remission F33.41 [place] [id number] [place] [address] 34442- 3698 Sep, 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 [place] [id number] [place] [address] 13266- 8079 Sep, Acute maxillary sinusitis, recurrence not specified J01.00 and Bronchiolitis J21.9 [place] [id number] [place] [address] 39206- 0168 Jul, [place] [id number] [place] [address] 69476- 7539 Jun, Type 2 diabetes mellitus with diabetic polyneuropathy E11.42 ; Open wound T14.8XXA ; 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 ; Stage 2 chronic kidney disease N18.2 and Episodic mood disorder F39 [place] [id number] [place] [address] 25170- 5358 May, [place] [id number] [place] [address] 90964- 8504 March, [place] [id number] [place] [address] 95602- 7684 March, Type 2 diabetes mellitus with diabetic [...] H60.502 and Non-adherence to medical treatment Z91.19 [facility] [address] [facility] [id number] [id number] Feb, Dental examination Z01.20 [facility] [id number] [place] [address] Feb, Labile hypertension R09.89 ; Syncope, unspecified syncope type R55 ; Chest pain, unspecified type R07.9 and Dyslipidemia E78.5 [place] [address] 16837- 7100 Feb, [place] [address] 07731- 0148 Jan, [place] [id number] [place] [address] [id number] Jan, Dental examination Z01.20 [place] [id number] [place] [address] 94000- 2147 Jan, Acute non-recurrent maxillary sinusitis J01.00 and Dyslipidemia E78.5 [address] [id number] Jan, Dental examination Z01.20 and Dental caries K02.9 [address] [id number] Jan, [id number] [place] [address] [id number] Dec, Dental examination Z01.20 [facility] [id number] [place] [address] 44457 -6448 Dec, Seasonal allergic rhinitis, unspecified trigger J30.2 [facility] [address] 85356- 5108 Nov, [facility] [id number] [place] [address] 75432- 8294 18 Nov, 2017 Type 2 diabetes mellitus with diabetic polyneuropathy E11.42 ; Dyslipidemia E78.5 ; Lumbago with sciatica, right side M54.41 ; Lumbago with sciatica, left side M54.42 ; 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 ; Polyneuropathy associated with underlying disease G63 ; Stage 2 chronic kidney disease N18.2 and Syncope, unspecified syncope type R55 [place] [address] 01687- 1568 14 Oct, 2017 Type 2 diabetes mellitus with diabetic polyneuropathy E11.42 ; Acute otitis externa of left ear, unspecified type H60.502 ; Overweight (BMI 25.0-29.9) E66.3 ; Dyslipidemia E78.5 and Polyneuropathy associated with underlying disease G63 [place] [address] 20712- 1077 Sep, [place] [address] 19592- 4729 Aug, Abnormal mammogram R92.8 [place] [address] 18385- 0824 Aug, Type 2 diabetes mellitus with diabetic polyneuropathy E11.42 [place] [address] 89060- 4998 Aug, [place] [address] 87355- 3381 Aug, Type 2 diabetes mellitus with diabetic polyneuropathy E11.42 ; Syncope, unspecified syncope type R55 ; Other chronic pain G89.29 and Encounter for immunization Z23 [place] [address] 59031- 5733 Aug, Type 2 diabetes mellitus with diabetic polyneuropathy E11.42 [place] [address] 98535- 1962 Jul, Type 2 diabetes mellitus with diabetic polyneuropathy E11.42 and Serum creatinine raised R79.89 [facility] [address], [place] [address] 0416 Jul, Type 2 diabetes mellitus with diabetic polyneuropathy E11.42 and Serum creatinine raised R79.89 [facility] [id number], [place] [address] 3221 May, [facility] [id number] [place] [address] 43327- 4726 May, [place] [id number] [place] [address] 75692- 8781 May, Head injury, initial encounter S09.90XA ; Facial pain R51 ; Neck pain M54.2 and Fall, initial encounter W19.XXXA [place] [id number] [place] [address] 47772- 8357 May, Type 2 diabetes mellitus with diabetic polyneuropathy E11.42 [place] [id number] [place] [address] 24701- 4118 May, [place] [id number] [place] [address] 87292- 6627 May, Type 2 diabetes mellitus with diabetic polyneuropathy E11.42 [place] [address], [place] [address] 2620 May, Dyslipidemia E78.5 ; prison 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 ; Type 2 diabetes mellitus with diabetic polyneuropathy E11.42 ; Generalized anxiety disorder F41.1 and Other seasonal allergic rhinitis J30.2 [place] [address], [place] [address] 1632 Apr, Type 2 diabetes mellitus with diabetic polyneuropathy E11.42 [place] [address], [place] [address]- 3379 March, [place] [id number] [place] [address] 74019- 6200 March, Abnormal mammogram R92.8 [place] [address], [place] [address]- 2513 Feb, Abnormal mammogram R92.8 [place] [address], [place] [address] 4400 Feb, Diabetes type 2, uncontrolled E11.65 [place] [address], [place] [address]- 9056 Feb, Screening for breast cancer Z12.39 [place] [address], [place] [address]- 3440 Jan, Screening for breast cancer Z12.39 [place] [address] [place] [address] 87154- 9169 Jan, Type 2 diabetes mellitus with diabetic polyneuropathy E11.42 ; 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 ; Other viral agents as the cause of diseases classified elsewhere B97.89 and Acute upper respiratory infection, unspecified J06.9 [place] [address], [place] [address]- 8817 Jan, [place] [address], [place] [address]- 6945 Dec, Diabetes type 2, uncontrolled E11.65 ; Dyslipidemia E78.5 ; Generalized anxiety disorder F41.1 ; Depression, unspecified depression type F32.9 ; 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 and Polyneuropathy associated with underlying disease G63 [place] [id number], [place] [address]- 4061 Dec, [place] [address], [place] [address]- 9532 Dec, [place] [address], [place] [address]- 3343 Dec, [place] [id number], [place] [address]- 0440 Dec, [place] [id number] [place] [address] 61588- 7762 Oct, Well woman exam Z01.419 ; Screening for breast cancer Z12.39 ; 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 ; Type 2 diabetes mellitus without complications E11.9 and Encounter for immunization Z23 [place] [address] 91781- 1769 Sep, [place] [address] 63394- 0991 Sep, Diabetes type 2, uncontrolled E11.65 ; Dyslipidemia E78.5 and Depression, unspecified depression type F32.[address] 13688- 0414 Aug, Diabetes type 2, uncontrolled E11.65 ; Encounter for immunization Z23 ; Nasal congestion R09.81 and Ear pressure, bilateral H93.8X3 [address] 80350- 0044 Jul, Eustachian tube dysfunction, left H69.82 [place] [address] 30377- 8575 Jun, [place] [id number] [place] [address] 36532- 5321 Jun, Hospital discharge follow-up Z09 ; Syncope, unspecified syncope type R55 and Acute suppurative otitis media of left ear without spontaneous rupture of tympanic membrane, recurrence not specified H66.002 [place] [id number] [place] [address] 98103- 6266 May, [place] [address] 71042- 6808 May, [place] [id number] [place] [address] 66228- 9364 May, [place] [address] 39695- 2944 May, Diabetes type 2, uncontrolled E11.65 ; [...] disturbance G47.9 and Generalized anxiety disorder F41.1 [facility] [id number] [place] [address] 03447- 6755 March, [facility] [id number] [place] [address] [id number] March, Syncope, unspecified syncope type R55 and Depression, unspecified depression type F32.9 [facility] [id number] [place] [address] [id number] March, Orthostatic hypotension I95.1 [facility] [id number] [place] [address] [id number] March, [facility] [id number] [place] [address] 46519- 2185 March, [facility] [id number] [place] [address] [id number] Feb, [facility] [address] [place] [address] AV [id number] [id number] Feb, Dental examination Z01.20 [facility] [id number] [place] [address] [id number] Jan, [facility] [place] [id number] [place] [address] [id number] Jan, [facility] [id number] [place] [address] [id number] Dec, Diabetes type 2, uncontrolled E11.65 [facility] [id number] [place] [address] [id number] Nov, [facility] [id number] [place] [address] [id number] Nov, Encounter for dental examination Z01.20 [facility] [address] [facility] [address] [id number][place] [id number] Nov, Dental examination Z01.20 [facility] [id number], [place] [id number] Sep, Diabetes type 2, uncontrolled E11.65 [facility] [address] [facility] [address] [id number][place] [id number] Sep, Encounter for dental examination Z01.20 and Dental caries, unspecified K02.9 [facility] [id number], [place] [id number] Sep, Bipolar 2 disorder F31.81 [facility] [id number] [place] [address] [id number] Aug, [facility] [place] [id number] [place] [address] [id number] Aug, Follow up V67.9 [facility] [address] [address] Jul, Bipolar disorder, unspecified 296.80 [facility] [place] [id number], [place] [address] Jul, Thyroid enlarged 240.9 and Bipolar disorder, unspecified 296.80 [facility] [place] [id number], [place] [id number] Jun, Diabetes mellitus type 2, uncontrolled 250.02 ; Bipolar disorder, unspecified 296.80 and Rash 782.1 [facility] [place] [id number], [place] [id number] Jun, [facility] [place] [address] [id number][place] [id number] May, Urinary tract infection 599.0 [facility] [place] [id number] [place] [address] [id number] May, Urinary tract infection 599.0 [facility] [place] [id number], [place] [id number] May, [facility] [place] [id number] [place] [address] [id number] May, Diabetes mellitus type 2, uncontrolled 250.02 and Pica in adults 307.52 [facility] [id number], [place] [id number] Apr, Follow up V67.9 and Diabetes mellitus type 2, uncontrolled 250.02 [facility] [address] [id number] [id number] Apr, [facility] [id number] [place] [address] 46811- 5246 Apr, [facility] [id number] [place] [address] [id number] Apr, Hyperlipidemia 272.4 [facility] [id number] [place] [address] [id number] March, Diabetes type 2, uncontrolled 250.02 [facility] [id number] [place] [address] [id number] March, Diabetes mellitus type 2, uncontrolled 250.02 [facility] [id number] [place] [address] [id number] March, Diabetes type 2, uncontrolled 250.02 [facility] [id number], [place] [id number] March, [facility] [id number] [place] [address] [id number] March, [facility] [place] [id number], [place] [id number] Feb, [facility] [address], [place] [address]- 1606 Feb, [facility] [address], [place] [address]- 2546 Feb, [facility] [place] [id number], [place] [id number] Jan, [facility] [address] [id number], [place] [address]- 7106 Jan, [facility] [address], [place] [address]- 1656 Jan, [facility] [place] [address] [id number] [id number] Jan, [facility] [place] [facility] [address], [place] [address]- 1342 Jan, [facility] [place] [facility] [address], [place] [address]- 3032 Jan, [facility] [address] [id number], [place] [id number] Jan, [facility] [place] [facility] [address], [place] [address]- 3640 Jan, [facility] [place] [facility] [address], [place] [address]- 7040 Dec, [facility] [address] [id number], [place] [id number] Dec, [facility] [place] [facility] [address], [place] [address]- 9411 Dec, [facility] [id number], [place] [id number] Dec, [facility] [place] [facility] [address], [place] [address]- 8578 Dec, [facility] [id number], [place] [address]24868086 Dec, [facility] [place] [facility] [address], [place] [address]- 9858 Dec, [facility] [place] [facility] [address], [place] [address]- 3396 Dec, [facility] [address] [id number], [place] [address]573749 Dec, [facility] [id number], [place] [id number] Dec, [facility] [place] [facility] [address], [place] [address]- 3179 Dec, [facility] [place] [facility] [address], [place] [address]- 0316 Nov, [facility] [place] [facility] [address] [id number], [place] [address]- 3981 Oct, [facility] [place] [facility] [address] [facility] [id number], [place] [address]- 9804 Oct, [facility] [address] [id number], [place] [id number] Sep, [facility] [place] [facility] [address] [id number], [place]- 7351 Sep, [facility] [address] [id number], [place] [id number] Sep, [facility] [place] [facility] [address] [facility] [id number], [place]39477- 3255 Sep, [facility] [address] [id number], [place] [id number] Aug, [facility] [place] [facility] [address] [facility] [id number], [place]87[place]- 7053 Aug, [facility] [address] [id number], [place] [id number] Aug, [facility] [place] [facility] [address] [facility] [id number], [place] [address]- 7218 Aug, [facility] [place] [facility] [address] [facility] [id number], [place] [address]- 4313 Jul, [facility] [place] [facility] [address] [facility] [id number], [place] [address]- 6463 Jul, [facility] [address] [id number], [place] [id number] Jul, [facility] [place] [facility] [address] [id number], [place] [address]- 2883 Jul, [facility] [address] [id number], [place] [id number] Jun, [facility] [address] [id number], [place] 572187045 Jun, [facility] [place] [facility] [address] [facility] [id number], [place] [address]- 9819 Jun, [facility] [place] [facility] [address] [id number] [place] [address]- 0645 Jun, [facility] [address] [facility] [id number][place] [address] Jun, [facility] [place] [facility] [address] [facility] [id number] [place] [address]- 0212 Jun, [facility] [address] [facility] [id number], [place] [address]846432 May, [facility] [place] [facility] [address] [facility] [id number] [place] [address]- 1580 May, [facility] [place] [facility] [address] [facility] [id number] [place] [address]- 2404 Apr, [facility] [place] [facility] [address] [facility] [id number], [place] 267677- 2962 Apr, [facility] [address] [facility] [id number], [place] [id number] Apr, [facility] [place] [facility] [address] [facility] [id number] [place] 9536 Apr, [facility] [place] [facility] [address] [facility] [id number], [place] [address]- 1420 Apr, [facility] [address] [facility] [id number], [place] [id number] March, [facility] [place] [facility] [address] [facility] [id number], [place] [address]- 7632 March, [facility] [place] [facility] [address] [facility] [id number] [place] [address]- 0485 March, [facility] [address] [facility] [id number], [place] [id number] March, [facility] [place] [facility] [address] [facility] [id number], [place] [address]- 8436 March, [facility] [address] [facility] [id number], [place] 3120635[address] March, [facility] [place] [facility] [address] [facility] [id number], [place] [address]- 1206 March, [facility] [address] [facility] [id number] [place] [id number] Feb, [facility] [place] [facility] [address] [id number] [place] [address]- 2546 Feb, [facility] [place] [facility] [address] [place] [address]- 2546 Jan, [facility] [address] [facility] [id number], [place] [id number] Jan, [facility] [place] [facility] [id number] [place] [address] Jan, [facility] [place] [facility] [id number], [place] [address] Jan, [facility] [id number] [place] [id number] Jan, [facility] [address] [id number] [id number] Dec, [facility] [place] [facility] [id number], [place] [address] Dec, [facility] [place] [facility] [id number], [place] [address] Dec, [facility] [address] [id number] [id number] Dec, [facility] [place] [facility] [address] [id number], [place] [address] Dec, [facility] [address] [id number] [id number] Dec, [facility] [place] [facility] [address] [id number], [place] [address] Dec, [facility] [place] [facility] [address] [id number], [place] [address] Dec, [facility] [id number] [place] [id number] Dec, [facility] [address] [id number] [place] [id number] Nov, [facility] [place] [facility] [address] [facility] [id number] [place] [address] Nov, [facility] [place] [facility] [address] [facility] [id number] [place] [address] Nov, [facility] [address] [id number] [place] [id number] Nov, [facility] [address] [id number] [place] [id number] Oct, [facility] [place] [facility] [address] [facility] [id number], [place] [address] Oct, [facility] [address] [facility] [id number] [place] [id number] Oct, [facility] [place] [facility] [address] [facility] [id number] [address] Oct, [facility] [place] [facility] [address] [facility] [id number], [place] [address] Oct, [facility] [place] [facility] [id number], [place] [address] Oct, [facility] [address] [facility] [id number] [id number] Oct, [facility] [place] [facility] [address] [facility] [id number][place] [address] Oct, [facility] [place] [facility] [address] [facility] [id number], [place] [address] Sep, [facility] [place] [facility] [address] [facility] [id number], [place] [address] Sep, [facility] [address] [facility] [id number] [place] [id number] Sep, [facility] [place] [facility] [address] [facility] [id number], [place] [address] Sep, [facility] [address] [facility] [id number], [place] [address] Sep, [facility] [address] [id number] [place] [id number] Sep, [facility] [address] [facility] [id number] [place] [id number] Aug, [facility] [address] [facility] [facility] [id number], [place] [address] Aug, [facility] [address] [facility] [id number], [place] [address] Aug, [facility] [place] [address] [id number] [id number] Aug, [facility] [place] [address] [facility] [id number][place] [id number] Aug, [facility] [address]005[address], [place] [address] Aug, [facility] [place] [facility] [address] [facility] [id number], [place] [address] Aug, [facility] [address] [facility] [id number], [place] [address] Aug, [facility] [place] [address] [facility] [id number][place] [id number] Jul, [facility] [address]65[address], [place] [address] Jul, [facility] [place] [facility] [address] [facility] [id number], [place] [address] Jul, [facility] [place] [address] [id number][place] [id number] Jul, [facility] [place] [address] [facility] [id number][place] [address] Jul, [facility] [place] [facility] [address] [facility] [id number], [place] [address] May, [facility] [place] [facility] [address] [facility] [id number], [place] [address] Apr, [facility] [place] [address] [id number] [place] [id number] Apr, [facility] [place] [address] [id number] [place] [id number] Apr, [facility] [address] [facility] [id number], [place] [address] March, [facility] [place] [address] [id number] [place] [id number] March, [facility] [place] [address] [id number] [place] [id number] March, [facility] [place] [address] [id number] [id number] March, [facility] [place] [address] [id number] [place] [id number] March, [facility] [place] [address] [id number] [place] [id number] March, [facility] [address] [facility] [id number], [place] [address] March, [facility] [address] [facility] [id number], [place] [address] March, [facility] [address] [facility] [id number], [place] [address] Feb, [facility] [place] [address] [id number] [place] [id number] Feb, [facility] [place] [address] [id number], [place] [id number] Feb, [facility] [place] [address] [id number] [place] [id number] Feb, [facility] [address] [facility] [id number], [place] [address] Feb, [facility] [place] [address] [id number] [place] [id number] Feb, [facility] [place] [address] [id number] [place] [id number] Jan, [facility] [place] [address] [id number] [place] [id number] Jan, [facility] [place] [address] [id number] [place] [id number] Dec, [facility] [place] [address] [id number] [place] [address] Dec, [facility] [address] [facility] [id number], [place] [address] Dec, [facility] [place] [address] [id number] [place] [id number] Dec, [facility] [place] [address] [id number] [place] [id number] Dec, [facility] [place] [address] [id number] [place] [id number] Dec, [facility] [place] [address] [id number] [place] [id number] Dec, [facility] [address] Nov, [facility] [place] [address] [id number] [place] [id number] Nov, [facility] [place] [address] [id number] [place] [id number] Nov, [facility] [place] [address] [id number] [place] [id number] Nov, [facility] [place] [address] [id number] [place] [id number] Nov, [facility] [address] [facility] [id number], [place] [address] Oct, [facility] [place] [address] [id number] [place] [id number] Oct, [facility] [place] [address] [id number] [place] [id number] Oct, [facility] [place] [address] [id number] [place] [id number] Oct, [facility] [address]65[address], [place] [address] Oct, [facility] [place] [facility] [address] [facility] [id number], [place] [address] Oct, [facility] [place] [facility] [address] [facility] [id number], [place] [address]- 1511 Oct, [facility] [place] [address] [facility] [id number], [place] 446[address]2448 Sep, [facility] [place] [facility] [address] [facility] [id number] [place] [address] Sep, [facility] [place] [facility] [address] [facility] [id number], [place] [address]- [address] Sep, [facility] [address] [id number] [place] [address] [id number] Sep, [facility] [place] [address] [id number] [place] [address] [id number] Sep, [facility] [place] [address] [id number] [place] [address] [id number] Sep, [facility] [place] [facility] [address] [facility] [id number], [place] [address]- 9531 Sep, [facility] [place] [facility] [address] [facility] [id number], [place] [address]- 98[address] Sep, [facility] [place] [facility] [address] [facility] [id number], [place] [address]- 1781 Sep, [facility] [place] [address] [facility] [id number], [place] 609982305 Aug, [facility] [place] [facility] [address] [facility] [id number], [place] [address]- 9263 Aug, [facility] [place] [address] [facility] [id number], [place] [id number] Aug, [facility] [place] [facility] [address] [facility] [id number], [place] [address]- 5223 Aug, [facility] [place] [facility] [address] [facility] [id number], [place] [address]- 8760 Aug, [facility] [place] [address] [id number] [place] [id number] Aug, [facility] [place] [address] [id number] [place] [id number] Aug, [facility] [address] [id number] [place] [address]- [address]143 Aug, [facility] [place] [address] [id number] [place] [id number] Aug, [facility] [place] [address] [id number] [place] [id number] Jul, [facility] [place] [address] [id number] [place] [id number] Jun, [facility] [place] [address] [id number] [place] 595601056 May, [facility] [place] [address] [id number] [place] [id number] May, [facility] [place] [address] [id number] [place] [id number] May, [facility] [place] [address] [id number] [place] [id number] May, [facility] [place] [address] [id number] [place] [id number] May, [facility] [place] [address] [id number] [place] [id number] May, [facility] [place] [address] [id number] [place] [id number] May, [facility] [place] [address] [id number] [place] [id number] Apr, [facility] [place] [address] [id number] [place] [id number] Apr, [facility] [place] [address] [id number] [place] [id number] Apr, [facility] [place] [address] [id number] [place] [id number] Apr, [facility] [place] [address] [id number] [place] [id number] Apr, [facility] [place] [address] [id number] [place] [id number] Apr, [facility] [place] [address] [id number] [place] [id number] March, [facility] [place] [address] [id number] [place] [id number] March, [facility] [place] [address] [id number] [place] [id number] Feb, [facility] [place] [address] [id number] [place] [id number] Feb, [facility] [place] [address] [id number] [place] [id number] Feb, [facility] [place] [address] [id number] [place] [id number] Jan, [facility] [place] [address] [id number] [place] [id number] Jan, [facility] [place] [address] [id number] [place] [id number] Jan, [facility] [place] [address] [id number] [place] [id number] Jan, [facility] [place] [address] [id number] [place] [id number] Dec, [facility] [address] [id number], [place] [address]- [address] Dec, [facility] [place] [address] [id number] [place] [id number] Dec, [facility] [place] [address] [id number] [place] [id number] Nov, [facility] [place] [address] [id number] [place] [id number] Nov, [facility] [place] [address] [id number] [place] [id number] Nov, [facility] [id number] [place] [address]853- 7138 Oct, [facility] [id number] [place] [address] 018233- 6707 Oct, [facility] [id number] [place] [address], [place] [address]- 8604 Oct, [facility] [place] [facility] [address] [id number] [place] [address]- 8611 Aug, [facility] [place] [facility] [address] [id number] [place] [address]- 6783 Aug, [facility] [place] [facility] [address] [id number] [place] [address]- 9236 Aug, [facility] [place] [facility] [address] [id number] [place] [address]- 0646 March, [facility] [place] [facility] [address] [id number] [place] [address]- 1890 Oct, [facility] [place] [facility] [address] [id number] [place] [address]- 4286 Oct, [facility] [place] [facility] [address] [id number] [place] [address]- 2677 Sep, [facility] [place] [facility] [address] [id number] [place] [address]- 7728 Sep, [facility] [place] [facility] [address] [id number] [place] [address]- 8332 Sep, [facility] [place] [facility] [address] [id number] [place] [address]- 9120 Aug, [facility] [place] [facility] [address] [id number] [place] [address]- 9536 Aug, [facility] [place] [facility] [address] [id number] [place] [address]- 4705 Jun, [facility] [place] [facility] [address] [id number] [place] [address]- 2292 May, [facility] [place] [facility] [address] [id number] [place] [address]- 3397 Jan, [facility] [place] [facility] [address] [id number] [place] [address]- 3325 Nov, [facility] [place] [facility] [address]65[address], [place] [address]- 4[address] Oct, [facility] [address]65[address], [place] [address]- 0163 Sep, [facility] [address]65100[place], [place] [address]- 8897 Sep, [facility] [id number] [place] [address]698- 9107 Sep, [facility] [address]65100[place], [place] [address]- 9039 Sep, [facility] [id number] [place] [address]- 8008 Sep, [facility] [address]65[address], [place] [address]- 1427 Aug, [facility] [address]65100[place], [place] [address]- 7531 Aug, [facility] [address]65[address], [place] [address]- 4609 Jul, [facility] [address]65[address], [place] [address]- 9026 Jun, IMMUNIZATIONS No Known Immunizations SOCIAL HISTORY Never Assessed REASON FOR VISIT 1 wk f/u DM Ed PLAN OF CARE VITAL SIGNS MEDICATIONS Unknown [...] Eczema Medical History Concussion Surgical History hysterectomy 2000 Surgical History orthopedic surgery - back surgery 1982,1989 Surgical History cholecystectomy Surgical History abnormal monofilament 01/25/2015 Surgical History colonoscopy: Tubular Adenoma, Repeat 3 years 08/2016 Hospitalization History chest pain ED visit leslie JOSHI scheduled for heart cath on May Hospitalization History Ana QUEEN 2012 Hospitalization History Chest pain-[facility] 12/22/16
--- OUTSIDE RECORDS SUMMARY | 2018-11-01 18:35 | XMS REPORT ---
Author Author [facility] Address [address] [place] [address] Care Team Providers Care Paper Products Supervisor Name Role Phone CHUY CERDA Unavailable PROBLEMS Type Condition ICD9-CM Code JGU72-WY Code Onset Dates Condition Status SNOMED Code Problem Other seasonal allergic rhinitis J30.2 Active 265936660 Problem Polyneuropathy associated with underlying disease G63 Active 222957790 Problem Other chronic pain G89.29 Active 42470035 Problem Vitamin D deficiency E55.9 Active 94385354 Problem Recurrent major depressive disorder, in partial remission F33.41 Active 73756560 Problem long term 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 Active 270175654 Problem Syncope, unspecified syncope type R55 Active 568236442 Problem Stage 2 chronic kidney disease N18.2 Active 283397620 Problem Type 2 diabetes mellitus with diabetic polyneuropathy E11.42 Active 66847116 Problem Episodic mood disorder F39 Active 99433546 Problem Dyslipidemia E78.5 Active 985824135 Problem Serum creatinine raised R79.89 Active 652961622 Problem Lumbago with sciatica, left side M54.42 Active 876400112 Problem Generalized anxiety disorder F41.1 Active 63550638 Problem Lumbago with sciatica, right side M54.41 Active 572811996 ALLERGIES No Information ENCOUNTERS Encounter Location Date Diagnosis [facility], [place] [id number] [address] Nov, [facility] [place] [id number] [place] [address] 60722- 7675 Oct, [facility] [place] [id number] [place] [address] 09361- 4341 Oct, [facility] [place] [address] [id number], [place] [address] Oct, Acute pancreatitis, unspecified complication status, unspecified pancreatitis type K85.90 [place] [address] [place] [address] 83927- 0661 Sep, 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 [place] [id number] [place] [address] 34330- 7875 Sep, [place] [id number] [place] [address] 84890- 7432 Sep, Type 2 diabetes mellitus with diabetic polyneuropathy E11.42 ; Stage 2 chronic kidney disease N18.2 and Recurrent major depressive disorder, in partial remission F33.41 [place] [id number] [place] [address] 70143- 6218 Sep, long term 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 [place] [id number] [place] [address] 03833- 4709 Sep, Acute maxillary sinusitis, recurrence not specified J01.00 and Bronchiolitis J21.9 [place] [id number] [place] [address] 24099- 7540 Jul, [place] [id number] [place] [address] 43869- 6879 Jun, Type 2 diabetes mellitus with diabetic polyneuropathy E11.42 ; Open wound T14.8XXA ; long term 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 ; Stage 2 chronic kidney disease N18.2 and Episodic mood disorder F39 [place] [id number] [place] [address] 04473- 0322 May, [place] [id number] [place] [address] 31022- 0350 March, [place] [id number] [place] [address] 59674- 2285 March, Type 2 diabetes mellitus with diabetic [...] H60.502 and Non-adherence to medical treatment Z91.19 [facility] [place] [address] [facility] [id number] [id number] Feb, Dental examination Z01.20 [facility], [place] [id number] [place] [address] Feb, Labile hypertension R09.89 ; Syncope, unspecified syncope type R55 ; Chest pain, unspecified type R07.9 and Dyslipidemia E78.5 [place] [address] 65777- 1563 Feb, [place] [address] 54762- 4061 Jan, [place] [id number] [place] [address] [id number] Jan, Dental examination Z01.20 [place] [id number] [place] [address] 59303- 6146 Jan, Acute non-recurrent maxillary sinusitis J01.00 and Dyslipidemia E78.5 [address] [id number] Jan, Dental examination Z01.20 and Dental caries K02.9 [address] [id number] Jan, [id number] [place] [address] [id number] Dec, Dental examination Z01.20 [facility] [id number] [place] [address] 64658 -7558 Dec, Seasonal allergic rhinitis, unspecified trigger J30.2 [facility], [place] [address] 41812- 3637 Nov, [facility], [place] [id number] [place] [address] 22751- 4408 18 Nov, 2017 Type 2 diabetes mellitus with diabetic polyneuropathy E11.42 ; Dyslipidemia E78.5 ; Lumbago with sciatica, right side M54.41 ; Lumbago with sciatica, left side M54.42 ; long term 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 ; Polyneuropathy associated with underlying disease G63 ; Stage 2 chronic kidney disease N18.2 and Syncope, unspecified syncope type R55 [place] [address] 05512- 0311 14 Oct, 2017 Type 2 diabetes mellitus with diabetic polyneuropathy E11.42 ; Acute otitis externa of left ear, unspecified type H60.502 ; Overweight (BMI 25.0-29.9) E66.3 ; Dyslipidemia E78.5 and Polyneuropathy associated with underlying disease G63 [place] [address] 73406- 1586 Sep, [place] [address] 02869- 7599 Aug, Abnormal mammogram R92.8 [place] [address] 53006- 3796 Aug, Type 2 diabetes mellitus with diabetic polyneuropathy E11.42 [place] [address] 60162- 6292 Aug, [place] [address] 95937- 0698 Aug, Type 2 diabetes mellitus with diabetic polyneuropathy E11.42 ; Syncope, unspecified syncope type R55 ; Other chronic pain G89.29 and Encounter for immunization Z23 [place] [address] 64690- 5427 Aug, Type 2 diabetes mellitus with diabetic polyneuropathy E11.42 [place] [address] 98196- 5608 Jul, Type 2 diabetes mellitus with diabetic polyneuropathy E11.42 and Serum creatinine raised R79.89 [facility], [place] [address], [place] [address]- 3057 Jul, Type 2 diabetes mellitus with diabetic polyneuropathy E11.42 and Serum creatinine raised R79.89 [facility] [place] [address] [place], [place] [address] 9535 May, [facility], [place] [id number] [place] [address] 90251- 7216 May, [place] [id number] [place] [address] 80116- 5999 May, Head injury, initial encounter S09.90XA ; Facial pain R51 ; Neck pain M54.2 and Fall, initial encounter W19.XXXA [place] [id number] [place] [address] 61388- 7732 May, Type 2 diabetes mellitus with diabetic polyneuropathy E11.42 [place] [id number] [place] [address] 44086- 0765 May, [place] [id number] [place] [address] 21082- 2148 May, Type 2 diabetes mellitus with diabetic polyneuropathy E11.42 [place] [address], [place] [address]- 3665 May, Dyslipidemia E78.5 ; 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 ; Type 2 diabetes mellitus with diabetic polyneuropathy E11.42 ; Generalized anxiety disorder F41.1 and Other seasonal allergic rhinitis J30.2 [place] [address], [place] [address]- 3994 Apr, Type 2 diabetes mellitus with diabetic polyneuropathy E11.42 [place] [address], [place] [address]- 6180 March, [place] [id number] [place] [address] 41006- 5384 March, Abnormal mammogram R92.8 [place] [address], [place] [address]- 9037 Feb, Abnormal mammogram R92.8 [place] [address], [place] [address]- 1012 Feb, Diabetes type 2, uncontrolled E11.65 [place] [address], [place] [address]- 8084 Feb, Screening for breast cancer Z12.39 [place] [address], [place] [address]- 3989 Jan, Screening for breast cancer Z12.39 [place] [address] [place] [address] 18437- 7009 Jan, Type 2 diabetes mellitus with diabetic polyneuropathy E11.42 ; long term 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 ; Other viral agents as the cause of diseases classified elsewhere B97.89 and Acute upper respiratory infection, unspecified J06.9 [place] [address], [place] [address]- 8278 Jan, [place] [address], [place] [address]- 3975 Dec, Diabetes type 2, uncontrolled E11.65 ; Dyslipidemia E78.5 ; Generalized anxiety disorder F41.1 ; Depression, unspecified depression type F32.9 ; long term 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 and Polyneuropathy associated with underlying disease G63 [place] [id number], [place] [address]- 0217 Dec, [place] [address], [place] [address]- 0941 Dec, [place] [address], [place] [address]- 5267 Dec, [place] [id number], [place] [address]- 3925 Dec, [place] [id number] [place] [address] 61691- 1995 Oct, Well woman exam Z01.419 ; Screening for breast cancer Z12.39 ; long term 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 ; Type 2 diabetes mellitus without complications E11.9 and Encounter for immunization Z23 [place] [address] 62170- 8851 Sep, [place] [address] 02838- 3394 Sep, Diabetes type 2, uncontrolled E11.65 ; Dyslipidemia E78.5 and Depression, unspecified depression type F32.[address] 13803- 1816 Aug, Diabetes type 2, uncontrolled E11.65 ; Encounter for immunization Z23 ; Nasal congestion R09.81 and Ear pressure, bilateral H93.8X3 [address] 20604- 9756 Jul, Eustachian tube dysfunction, left H69.82 [place] [address] 62225- 7229 Jun, [place] [id number] [place] [address] 98241- 9655 Jun, Hospital discharge follow-up Z09 ; Syncope, unspecified syncope type R55 and Acute suppurative otitis media of left ear without spontaneous rupture of tympanic membrane, recurrence not specified H66.002 [place] [id number] [place] [address] 05110- 8217 May, [place] [address] 53648- 8377 May, [place] [id number] [place] [address] 60377- 0304 May, [place] [address] 97898- 6767 May, Diabetes type 2, uncontrolled E11.65 ; [...] disturbance G47.9 and Generalized anxiety disorder F41.1 [facility] [place] [id number] [place] [address] 19330- 2411 March, [facility] [id number] [place] [address] [id number] March, Syncope, unspecified syncope type R55 and Depression, unspecified depression type F32.9 [facility] [id number] [place] [address] [id number] March, Orthostatic hypotension I95.1 [facility] [id number] [place] [address] [id number] March, [facility] [place] [id number] [place] [address] 14455- 9815 March, [facility] [id number] [place] [address] [id number] Feb, [facility] [place] [address] [place] [address] AV [id number][place] [id number] Feb, Dental examination Z01.20 [facility] [id number] [place] [address] [id number] Jan, [facility] [place] [id number] [place] [address] [id number] Jan, [facility] [id number] [place] [address] [id number] Dec, Diabetes type 2, uncontrolled E11.65 [facility] [id number] [place] [address] [id number] Nov, [facility] [id number] [place] [address] [id number] Nov, Encounter for dental examination Z01.[address] [facility] [place] [address] [facility] [address] [id number] [id number] Nov, Dental examination Z01.20 [facility] [place] [id number] [address] Sep, Diabetes type 2, uncontrolled E11.[address] [facility] [place] [address] [facility] [address] [id number][place] [id number] Sep, Encounter for dental examination Z01.20 and Dental caries, unspecified K02.9 [facility] [place] [id number], [place] [id number] Sep, Bipolar 2 disorder F31.81 [facility] [place] [id number] [place] [address] [id number] Aug, [facility] [place] [id number] [place] [address] [id number] Aug, Follow up V67.9 [facility] [address]- 9916 Jul, Bipolar disorder, unspecified 296.80 [facility] [place] [id number], [place] [id number] Jul, Thyroid enlarged 240.9 and Bipolar disorder, unspecified 296.80 [facility] [place] [id number], [place] [id number] Jun, Diabetes mellitus type 2, uncontrolled 250.02 ; Bipolar disorder, unspecified 296.80 and Rash 782.1 [facility] [place] [id number], [place] [id number] Jun, [facility] [place] [address] [id number][place] [id number] May, Urinary tract infection 599.0 [facility] [place] [id number] [place] [address] [id number] May, Urinary tract infection 599.0 [facility] [place] [id number], [place] [id number] May, [facility] [place] [id number] [place] [address] [id number] May, Diabetes mellitus type 2, uncontrolled 250.02 and Pica in adults 307.52 [facility] [id number], [place] [id number] Apr, Follow up V67.9 and Diabetes mellitus type 2, uncontrolled 250.02 [facility] [address] [id number], [place] [id number] Apr, [facility] [place] [id number] [place] [address] 43423- 9166 Apr, [facility] [id number] [place] [address] [id number] Apr, Hyperlipidemia 272.4 [facility] [id number] [place] [address] [id number] March, Diabetes type 2, uncontrolled 250.02 [facility] [id number] [place] [address] [id number] March, Diabetes mellitus type 2, uncontrolled 250.02 [facility] [id number] [place] [address] [id number] March, Diabetes type 2, uncontrolled 250.02 [facility] [id number], [place] [address] March, [facility] [id number] [place] [address] [id number] March, [facility] [place] [id number], [place] [id number] Feb, [facility] [place] [address], [place] [address]- 9046 Feb, [facility] [address], [place] [address]- 2546 Feb, [facility] [place] [id number], [place] [id number] Jan, [facility] [place] [id number], [place] [address]- 4606 Jan, [facility] [place] [address], [place] [address]- 6966 Jan, [facility] [place] [address] [id number] [id number] Jan, [facility] [place] [facility] [address], [place] [address]- 2499 Jan, [facility] [place] [facility] [address], [place] [address]- 7223 Jan, [facility] [address] [id number], [place] [id number] Jan, [facility] [place] [facility] [address], [place] [address]- 2765 Jan, [facility] [place] [facility] [address], [place] [address]- 4198 Dec, [facility] [address] [id number], [place] [id number] Dec, [facility] [place] [facility] [address], [place] [address]- 8110 Dec, [facility] [id number], [place] [id number] Dec, [facility] [place] [facility] [address], [place] [address]- 5719 Dec, [facility] [id number], [place] [id number] Dec, [facility] [place] [facility] [address], [place] [address]- 7852 Dec, [facility] [place] [facility] [address], [place] [address]- 8558 Dec, [facility] [address] [id number], [place] 147738209 Dec, [facility] [id number], [place] [id number] Dec, [facility] [place] [facility] [address], [place] [address]- 6824 Dec, [facility] [place] [facility] [address], [place] [address]- 0716 Nov, [facility] [place] [facility] [address] [id number], [place] [address]- 9094 Oct, [facility] [place] [facility] [address] [facility] [id number], [place] [address]- 1570 Oct, [facility] [address] [id number][place] [id number] Sep, [facility] [place] [facility] [address] [id number], [place]- 9753 Sep, [facility] [address] [id number], [place] [id number] Sep, [facility] [place] [facility] [address] [facility] [facility] [id number], [place] 807043- 8141 Sep, [facility] [address] [id number], [place] [id number] Aug, [facility] [place] [facility] [address] [facility] [facility] [id number], [place]- 3179 Aug, [facility] [address] [id number], [place] [id number] Aug, [facility] [place] [facility] [address] [facility] [facility] [id number], [place] [address]- 1179 Aug, [facility] [place] [facility] [address] [facility] [id number], [place] [address]- 7202 Jul, [facility] [place] [facility] [address] [facility] [id number], [place] [address]- 8177 Jul, [facility] [address] [id number], [place] [id number] Jul, [facility] [place] [facility] [address] [id number], [place] [address]- 2592 Jul, [facility] [address] [id number], [place] [id number] Jun, [facility] [address] [id number], [place] [id number] Jun, [facility] [place] [facility] [address] [facility] [id number], [place] [address]- 4565 Jun, [facility] [place] [facility] [address] [id number] [place] [address]- 2652 Jun, [facility] [address] [facility] [id number], [place] [id number] Jun, [facility] [place] [facility] [address] [facility] [id number] [place] [address]- 5371 Jun, [facility] [address] [facility] [id number], [place] [id number] May, [facility] [place] [facility] [address] [facility] [id number] [place] [address]- 3627 May, [facility] [place] [facility] [address] [facility] [id number] [place] [address]- 1555 Apr, [facility] [place] [facility] [address] [facility] [id number][place]114[place]- 8413 Apr, [facility] [address] [facility] [id number], [place] [id number] Apr, [facility] [place] [facility] [address] [facility] [id number] [place]- 2194 Apr, [facility] [place] [facility] [address] [facility] [id number], [place] [address]- 3054 Apr, [facility] [address] [facility] [id number], [place] [id number] March, [facility] [place] [facility] [address] [facility] [id number], [place] [address]- 7091 March, [facility] [place] [facility] [address] [facility] [id number] [place] [address]- 6155 March, [facility] [address] [facility] [id number], [place] [id number] March, [facility] [place] [facility] [address] [facility] [id number], [place] [address]- 9496 March, [facility] [address] [facility] [id number], [place] [id number] March, [facility] [place] [facility] [address] [facility] [id number], [place] [address]- 6836 March, [facility] [address] [facility] [id number] [place] [id number] Feb, [facility] [place] [facility] [address] [id number] [place] [address]- 2546 Feb, [facility] [place] [facility] [address] [place] [address]- 2546 Jan, [facility] [address] [facility] [id number], [place] [id number] Jan, [facility] [place] [facility] [address] [place] [address]- 9106 Jan, [facility] [place] [facility] [address], [place] [address]- 2546 Jan, [facility] [id number] [place] [id number] Jan, [facility] [address] [id number] [id number] Dec, [facility] [place] [facility] [id number], [place] [address] Dec, [facility] [place] [facility] [id number], [place] [address] Dec, [facility] [address] [id number][place] [id number] Dec, [facility] [place] [facility] [address] [id number] [address] Dec, [facility] [address] [id number][place] [id number] Dec, [facility] [place] [facility] [address] [id number] [address] Dec, [facility] [place] [facility] [address] [id number], [place] [address] Dec, [facility] [id number] [place] [id number] Dec, [facility] [address] [id number] [place] [id number] Nov, [facility] [place] [facility] [address] [facility] [id number] [place] [address] Nov, [facility] [place] [facility] [address] [facility] [id number] [place] [address] Nov, [facility] [address] [id number] [place] [id number] Nov, [facility] [address] [id number] [place] [id number] Oct, [facility] [place] [facility] [address] [facility] [id number], [place] [address] Oct, [facility] [address] [facility] [id number] [place] [id number] Oct, [facility] [place] [facility] [address] [facility] [id number][place] Oct, [facility] [place] [facility] [address] [facility] [id number], [place] [address] Oct, [facility] [place] [facility] [id number], [place] [address] Oct, [facility] [address] [facility] [id number][place] [id number] Oct, [facility] [place] [facility] [address] [facility] [id number][place] [address]88[place] Oct, [facility] [place] [facility] [address] [facility] [id number], [place] [address] Sep, [facility] [place] [facility] [address] [facility] [id number], [place] [address] Sep, [facility] [address] [facility] [id number] [place] [id number] Sep, [facility] [place] [facility] [address] [facility] [id number], [place] [address] Sep, [facility] [address] [facility] [id number], [place] [address] Sep, [facility] [address] [id number] [place] [id number] Sep, [facility] [place] [address] [facility] [id number] [place] [id number] Aug, [facility] [facility] [address] [facility] [id number], [place] [address] Aug, [facility] [address] [facility] [id number], [place] [address] Aug, [facility] [place] [address] [id number][place] [id number] Aug, [facility] [place] [address] [facility] [id number][place] [id number] Aug, [facility] [address], [place] [address] Aug, [facility] [place] [facility] [address] [id number], [place] [address] Aug, [facility] [address] [id number], [place] [address] Aug, [facility] [place] [address] [facility] [id number][place] [id number] Jul, [facility] [address], [place] [address] Jul, [facility] [place] [address] [id number], [place] [address] Jul, [facility] [place] [address] [id number][place] [id number] Jul, [facility] [place] [address] [facility] [id number][place] [id number] Jul, [facility] [place] [address] [id number], [place] [address] May, [facility] [place] [address] [id number], [place] [address] Apr, [facility] [place] [address] [id number] [place] [address] Apr, [facility] [place] [address] [id number] [place] [address] Apr, [facility] [address] [id number], [place] [address] March, [facility] [place] [address] [id number] [place] [address] March, [facility] [place] [address] [id number] [place] [address] March, [facility] [place] [address] [id number] [place] [id number] March, [facility] [place] [address] [id number] [place] [id number] March, [facility] [place] [address] [id number] [place] [id number] March, [facility] [address] [id number], [place] [address] March, [facility] [address] [id number], [place] [address] March, [facility] [address] [id number], [place] [address] Feb, [facility] [place] [address] [id number] [place] [id number] Feb, [facility] [place] [address] [id number], [place] [id number] Feb, [facility] [place] [address] [id number] [place] [id number] Feb, [facility] [address] [id number], [place] [address] Feb, [facility] [place] [address] [id number] [place] [id number] Feb, [facility] [place] [address] [id number] [place] [id number] Jan, [facility] [place] [address] [id number] [place] [id number] Jan, [facility] [place] [address] [id number] [place] [address] Dec, [facility] [place] [address] [id number] [place] [address] Dec, [facility] [address] [id number], [place] [address] Dec, [facility] [place] [address] [id number] [place] [id number] Dec, [facility] [place] [address] [id number] [place] [id number] Dec, [facility] [place] [address] [id number] [place] [id number] Dec, [facility] [place] [address] [id number] [place] [id number] Dec, [facility] [address]65[address] [address] Nov, [facility] [place] [address] [id number] [place] [address] Nov, [facility] [place] [address] [id number] [place] [id number] Nov, [facility] [place] [address] [id number] [place] [address] Nov, [facility] [place] [address] [id number] [place] [id number] Nov, [facility] [address] [id number], [place] [address] Oct, [facility] [place] [address] [id number] [place] [id number] Oct, [facility] [place] [address] [id number] [place] [id number] Oct, [facility] [place] [address] [id number] [place] [id number] Oct, [facility] [address] Oct, [facility] [facility] [address] [id number], [place] [address] Oct, [facility] [address] [id number], [place] [address]7 Oct, [facility] [place] [address] [facility] [id number][place] [id number] Sep, [facility] [place] [address] [id number] [place] [address]- [address] Sep, [facility] [address] [id number], [place] [address]- [address] Sep, [facility] [place] [id number] [place] [id number] Sep, [facility] [place] [address] [id number] [place] [address] [id number] Sep, [facility] [place] [address] [id number] [place] [address] [id number] Sep, [facility] [address] [id number], [place] [address]- [address] Sep, [facility] [place] [address] [id number], [place] [address]- 0[address] Sep, [facility] [place] [facility] [address] [id number], [place] [address]- [address]487 Sep, [facility] [place] [address] [facility] [id number][place] [id number] Aug, [facility] [place] [facility] [address] [id number], [place] [address]- [address] Aug, [facility] [place] [address] [facility] [id number], [place] [id number] Aug, [facility] [place] [facility] [address] [id number], [place] [address]- 9032 Aug, [facility] [address] [id number], [place] [address]- 65[address] Aug, [facility] [place] [address] [id number] [place] [address] Aug, [facility] [place] [address] [id number] [place] [id number] Aug, [facility] [address] [id number] [place] [address]- [address] Aug, [facility] [place] [address] [id number] [place] [id number] Aug, [facility] [place] [address] [id number] [id number] Jul, [facility] [place] [address] [id number] [place] [id number] Jun, [facility] [place] [address] [id number] [place] [id number] May, [facility] [place] [address] [id number] [place] [id number] May, [facility] [place] [address] [id number] [place] [address] May, [facility] [place] [address] [id number] [place] [id number] May, [facility] [place] [address] [id number] [place] [address] May, [facility] [place] [address] [id number] [place] [id number] May, [facility] [place] [address] [id number] [id number] May, [facility] [place] [address] [id number] [place] 404[address] Apr, [facility] [place] [address] [id number] [place] [id number] Apr, [facility] [place] [address] [id number] [place] [address] Apr, [facility] [place] [address] [id number] [place] [address]34368877 Apr, [facility] [place] [address] [id number] [place] 847390071 Apr, [facility] [place] [address] [id number] [place] [id number] Apr, [facility] [place] [address] [id number] [place] [address] March, [facility] [place] [address] [id number] [place] [address]7777 March, [facility] [place] [address] [id number] [place] [id number] Feb, [facility] [place] [address] [id number] [place] [id number] Feb, [facility] [place] [address] [id number] [place] [id number] Feb, [facility] [place] [address] [id number] [place] [id number] Jan, [facility] [place] [address] [id number] [place] [id number] Jan, [facility] [place] [address] [id number] [place] 240342613 Jan, [facility] [place] [address] [id number] [place] [id number] Jan, [facility] [place] [address] [id number] [place] [id number] Dec, [facility] [address] [id number], [place] [address] Dec, [facility] [place] [address] [id number] [place] [id number] Dec, [facility] [place] [address] [id number] [place] [id number] Nov, [facility] [place] [address] [id number] [place] [id number] Nov, [facility] [place] [address] [id number] [place] 9858622[address] Nov, [facility] [id number] [place] [address]07- 7681 Oct, [facility] [id number] [place] [address] 796144- 3031 Oct, [facility] [id number] [place] [address], [place] [address]- [address]605 Oct, [facility] [place] [facility] [address] [id number] [place] [address]- 8961 Aug, [facility] [place] [facility] [address] [id number] [place] [address]- 9073 Aug, [facility] [place] [facility] [address] [id number] [place] [address]- 4396 Aug, [facility] [place] [facility] [address] [id number] [place] [address]- 1811 March, [facility] [place] [facility] [address] [id number] [place] [address]- 2685 Oct, [facility] [place] [facility] [address] [id number] [place] [address]- 0586 Oct, [facility] [place] [facility] [address] [id number] [place] [address]- 8603 Sep, [facility] [place] [facility] [address] [id number] [place] [address]- 5973 Sep, [facility] [place] [facility] [address] [id number] [place] [address]- 2454 Sep, [facility] [place] [facility] [address] [id number] [place] [address]- 9508 Aug, [facility] [place] [facility] [address] [id number] [place] [address]- 4908 Aug, [facility] [place] [facility] [address] [id number] [place] [address]- 4541 Jun, [facility] [place] [facility] [address] [id number] [place] [address]- 2379 May, [facility] [place] [facility] [address] [id number] [place] [address]- 2680 Jan, [facility] [place] [facility] [address] [id number] [place] [address]- 7056 Nov, [facility] [place] [facility] [address]65100[place], [place] [address]- 4336 Oct, [facility] [address]65100[place], [place] [address]- 8479 Sep, [facility] [place] [address]65[address], [place] [address]- 7310 Sep, [facility] [place] [id number] [place] [address]3674- 1486 Sep, [facility] [place] [address]65[address], [place] [address]- 3183 Sep, [facility] [place] [id number] [place] [address]8840- 1350 Sep, [facility] [place] [address]65[address], [place] [address]- 0357 Aug, [facility] [place] [address]65[address], [place] [address]- 4322 Aug, [facility] [place] [address]65100[place], [place] [address]- 1205 Jul, [facility] [place] [address]65[address], [place] [address]- 1455 Jun, IMMUNIZATIONS No Known Immunizations SOCIAL HISTORY [...] History Ana QUEEN 2012 Hospitalization History Chest pain-[facility] 12/22/16
--- OUTSIDE RECORDS SUMMARY | 2018-11-01 18:36 | XMS REPORT ---
Author Author KING CHUY Organization [facility] Address [address] [place] [address] Care Team Providers Care Business Support Professional Name Role Phone ARIS CERDATA Unavailable PROBLEMS Type Condition ICD9-CM Code GGH01-JW Code Onset Dates Condition Status SNOMED Code Problem Other seasonal allergic rhinitis J30.2 Active 040041804 Problem Polyneuropathy associated with underlying disease G63 Active 312736329 Problem Other chronic pain G89.29 Active 99455824 Problem Vitamin D deficiency E55.9 Active 04169841 Problem Recurrent major depressive disorder, in partial remission F33.41 Active 24667709 Problem global ceo 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 Active 413493163 Problem Syncope, unspecified syncope type R55 Active 410380073 Problem Stage 2 chronic kidney disease N18.2 Active 648630346 Problem Type 2 diabetes mellitus with diabetic polyneuropathy E11.42 Active 32713664 Problem Episodic mood disorder F39 Active 45630571 Problem Dyslipidemia E78.5 Active 329003858 Problem Serum creatinine raised R79.89 Active 770847444 Problem Lumbago with sciatica, left side M54.42 Active 410903103 Problem Generalized anxiety disorder F41.1 Active 35935639 Problem Lumbago with sciatica, right side M54.41 Active 771068329 ALLERGIES Substance Reaction Event Type Date Status MetFORMIN HCl ER nausea and vomiting Drug Allergy Sep, Active Codeine Phosphate dizziness Drug Allergy Sep, Active metal/crown/watches rash Non Drug Allergy Sep, Active ENCOUNTERS Encounter Location Date Diagnosis [facility] [id number], [place] [address] Nov, [facility] [id number], [place] [address] Sep, global ceo 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 [facility] [id number], [place] [address] Sep, [place] [address] [place] [address] 57391- 0239 Sep, Type 2 diabetes mellitus with diabetic polyneuropathy E11.42 ; Stage 2 chronic kidney disease N18.2 and Recurrent major depressive disorder, in partial remission F33.41 [place] [id number] [place] [address] 25167- 1047 Sep, global ceo 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 [place] [address] [place] [address] 97150- 0957 Sep, Acute maxillary sinusitis, recurrence not specified J01.00 and Bronchiolitis J21.9 [place] [id number] [place] [address] 53134- 7183 17 Jul, 2018 [place] [id number] [place] [address] 03217- 1151 Jun, Type 2 diabetes mellitus with diabetic polyneuropathy E11.42 ; Open wound T14.8XXA ; senior living 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 ; Stage 2 chronic kidney disease N18.2 and Episodic mood disorder F39 [place] [address] [place] [address] 58136- 8405 May, [place] [address] [place] [address] 51011- 7145 March, [place] [address] [place] [address] 82278- 1690 March, Type 2 diabetes mellitus with diabetic [...] H60.502 and Non-adherence to medical treatment Z91.[address] [id number] [id number] Feb, Dental examination Z01.20 [facility] [address] [place] [address] 84463- 2603 Feb, Labile hypertension R09.89 ; Syncope, unspecified syncope type R55 ; Chest pain, unspecified type R07.9 and Dyslipidemia E78.5 [place] [id number] [place] [address] 40968- 3136 Feb, [facility] [id number] [place] [address] 41896- 6077 Jan, [facility] [address] [id number][place] [id number] Jan, Dental examination Z01.20 [facility] [address] [place] [address] 51578- 9760 Jan, Acute non-recurrent maxillary sinusitis J01.00 and Dyslipidemia E78.5 [facility] [address] [place] [address] [facility] [id number], [place] [id number] Jan, Dental examination Z01.20 and Dental caries K02.[address] [facility] [id number][place] [id number] Jan, [facility] [address] [facility] [id number][place] [id number] Dec, Dental examination Z01.20 [facility] [address], [place] [address] Dec, Seasonal allergic rhinitis, unspecified trigger J30.2 [place] [address], [place] [address] 97[address] Nov, [place] [id number] [place] [address] 83190- 0874 Nov, Type 2 diabetes mellitus with diabetic polyneuropathy E11.42 ; Dyslipidemia E78.5 ; Lumbago with sciatica, right side M54.41 ; Lumbago with sciatica, left side M54.42 ; global ceo 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 ; Polyneuropathy associated with underlying disease G63 ; Stage 2 chronic kidney disease N18.2 and Syncope, unspecified syncope type R55 [place] [id number] [place] [address] 08324- 3044 14 Oct, 2017 Type 2 diabetes mellitus with diabetic polyneuropathy E11.42 ; Acute otitis externa of left ear, unspecified type H60.502 ; Overweight (BMI 25.0-29.9) E66.3 ; Dyslipidemia E78.5 and Polyneuropathy associated with underlying disease G63 [place] [address] 87137- 2898 Sep, [place] [address] 13681- 6631 Aug, Abnormal mammogram R92.8 [place] [address] 06842- 8596 Aug, Type 2 diabetes mellitus with diabetic polyneuropathy E11.42 [place] [id number] [place] [address] 34892- 7954 Aug, [place] [address] 30100- 2159 Aug, Type 2 diabetes mellitus with diabetic polyneuropathy E11.42 ; Syncope, unspecified syncope type R55 ; Other chronic pain G89.29 and Encounter for immunization Z23 [place] [id number] [place] [address] 17421- 8580 Aug, Type 2 diabetes mellitus with diabetic polyneuropathy E11.42 [place] [id number] [place] [address] 80427- 9883 Jul, Type 2 diabetes mellitus with diabetic polyneuropathy E11.42 and Serum creatinine raised R79.89 [place] [id number] [place] [address] 57517- 7888 06 Jul, 2017 Type 2 diabetes mellitus with diabetic polyneuropathy E11.42 and Serum creatinine raised R79.89 [place] [address], [place] [address] 4313 May, [facility] [address], [place] [address] 65[address] May, [facility] [address], [place] [address]- 7255 May, Head injury, initial encounter S09.90XA ; Facial pain R51 ; Neck pain M54.2 and Fall, initial encounter W19.XXXA [place] [address], [place] [address] 5625 May, Type 2 diabetes mellitus with diabetic polyneuropathy E11.42 [place] [address], [place] [address]- 8435 May, [place] [address], [place] [address]- 0002 May, Type 2 diabetes mellitus with diabetic polyneuropathy E11.42 [place] [address], [place] [address]- 0644 May, Dyslipidemia E78.5 ; senior living 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 ; Type 2 diabetes mellitus with diabetic polyneuropathy E11.42 ; Generalized anxiety disorder F41.1 and Other seasonal allergic rhinitis J30.2 [place] [address], [place] [address]- 0173 Apr, Type 2 diabetes mellitus with diabetic polyneuropathy E11.42 [place] [address], [place] [address]- 3879 March, [place] [address], [place] [address]- 6109 March, Abnormal mammogram R92.8 [place] [address], [place] [address]- 6083 Feb, Abnormal mammogram R92.8 [place] [address], [place] [address]- 8652 Feb, Diabetes type 2, uncontrolled E11.65 [place] [address] [place] [address] 95227- 1261 Feb, Screening for breast cancer Z12.39 [place] [id number] [place] [address] 50133- 0724 Jan, Screening for breast cancer Z12.39 [place] [id number] [place] [address] 64812- 7135 Jan, Type 2 diabetes mellitus with diabetic polyneuropathy E11.42 ; senior living 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 ; Other viral agents as the cause of diseases classified elsewhere B97.89 and Acute upper respiratory infection, unspecified J06.9 [place] [id number] [place] [address] 34525- 9996 Jan, [place] [id number] [place] [address] 55799- 2137 Dec, Diabetes type 2, uncontrolled E11.65 ; Dyslipidemia E78.5 ; Generalized anxiety disorder F41.1 ; Depression, unspecified depression type F32.9 ; senior living 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 and Polyneuropathy associated with underlying disease G63 [place] [address], [place] [address]- 9482 16 Dec, 2016 [place] [address], [place] [address]- 1605 Dec, [place] [id number] [place] [address] 20429- 3990 Dec, [place] [address] [place] [address] 88457- 7523 Dec, [place] [id number] [place] [address] 97417- 1647 Oct, Well woman exam Z01.419 ; Screening for breast cancer Z12.39 ; global ceo 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 ; Type 2 diabetes mellitus without complications E11.9 and Encounter for immunization Z23 [place] [address] 01020- 2980 Sep, [place] [address] 35137- 1201 Sep, Diabetes type 2, uncontrolled E11.65 ; Dyslipidemia E78.5 and Depression, unspecified depression type F32.9 [place] [address] 10664- 8145 Aug, Diabetes type 2, uncontrolled E11.65 ; Encounter for immunization Z23 ; Nasal congestion R09.81 and Ear pressure, bilateral H93.8X3 [address] 6[address]24- 9690 Jul, Eustachian tube dysfunction, left H69.82 [place] [address] 66017- 1504 Jun, [place] [address] 36672- 7442 Jun, Hospital discharge follow-up Z09 ; Syncope, unspecified syncope type R55 and Acute suppurative otitis media of left ear without spontaneous rupture of tympanic membrane, recurrence not specified H66.002 [place] [id number] [place] [address] 78371- 5342 May, [place] [id number] [place] [address] 62275- 7649 May, [place] [id number] [place] [address] 12110- 7376 May, [place] [address] 84358- 6361 May, Diabetes type 2, uncontrolled E11.65 ; [...] disturbance G47.9 and Generalized anxiety disorder F41.1 [facility] [address], [place] [address]- 4046 March, [facility] [id number], [place] [address] March, Syncope, unspecified syncope type R55 and Depression, unspecified depression type F32.9 [facility] [id number] [place] [address] [id number] March, Orthostatic hypotension I95.1 [facility] [id number] [place] [address] [id number] March, [facility] [address], [place] [address]- 6646 March, [facility] [id number] [place] [address] [id number] Feb, [facility] [address] [facility] [address] [id number][place] [address] Feb, Dental examination Z01.20 [facility] [id number] [place] [address] [id number] Jan, [facility] [id number] [place] [address] [id number] Jan, [facility] [id number] [place] [address] [id number] Dec, Diabetes type 2, uncontrolled E11.65 [facility] [id number] [place] [address] [id number] Nov, [facility] [address] [id number] [id number] Nov, Encounter for dental examination Z01.20 [facility] [address] [id number][place] [id number] Nov, Dental examination Z01.20 [facility] [id number] [place] [address] [id number] Sep, Diabetes type 2, uncontrolled E11.65 [facility] [address] [facility] [address] [id number][place] [id number] Sep, Encounter for dental examination Z01.20 and Dental caries, unspecified K02.9 [facility] [id number], [place] [address] Sep, Bipolar 2 disorder F31.81 [facility] [id number], [place] [id number] Aug, [facility] [id number] [place] [address] [id number] Aug, Follow up V67.9 [facility] [address] [address]- 6143 Jul, Bipolar disorder, unspecified 296.80 [facility] [id number], [place] [id number] Jul, Thyroid enlarged 240.9 and Bipolar disorder, unspecified 296.80 [facility] [id number], [place] [id number] Jun, Diabetes mellitus type 2, uncontrolled 250.02 ; Bipolar disorder, unspecified 296.80 and Rash 782.1 [facility] [id number] [place] [address] [id number] Jun, [facility] [id number], [place] [id number] May, Urinary tract infection 599.0 [facility] [id number], [place] [id number] May, Urinary tract infection 599.0 [facility] [id number], [place] [id number] May, [facility] [address]00565100[place] [id number] May, Diabetes mellitus type 2, uncontrolled 250.02 and Pica in adults 307.52 [facility] [id number], [place] [address] Apr, Follow up V67.9 and Diabetes mellitus type 2, uncontrolled 250.02 [facility] [address] [id number] [address] Apr, [facility] [id number], [place] [address]- 2546 Apr, [facility] [id number], [place] [address] Apr, Hyperlipidemia 272.4 [facility] [id number] [place] [address] [id number] March, Diabetes type 2, uncontrolled 250.02 [facility] [id number] [place] [address] [id number] March, Diabetes mellitus type 2, uncontrolled 250.02 [facility] [id number] [place] [address] [id number] March, Diabetes type 2, uncontrolled 250.02 [facility] [id number] [place] [address] [id number] March, [facility] [id number], [place] [id number] March, [facility] [id number], [place] [id number] Feb, [facility] [place] [facility] [address] [place] [address] 58943- 6174 Feb, [facility] [place] [facility] [id number], [place] [address]- 6086 Feb, [facility] [id number], [place] [id number] Jan, [facility] [place] [facility] [address], [place] [address]- 2356 Jan, [facility] [place] [facility] [address], [place] [address]- 6253 Jan, [facility] [id number], [place] [address] Jan, [facility] [place] [facility] [address], [place] [address]- 2566 Jan, [facility] [place] [facility] [id number] [place] [address] 58625- 2546 Jan, [facility] [address] [id number] [place] [id number] Jan, [facility] [place] [facility] [address] [facility] [id number] [place] [address]- 1996 Jan, [facility] [place] [facility] [id number], [place] [address]- 9136 Dec, [facility] [address] [id number] [place] [id number] Dec, [facility] [place] [facility] [address] [facility] [id number] [place] [address]- 1836 Dec, [facility] [address] [facility] [id number] [place] [address] Dec, [facility] [place] [facility] [id number], [place] [address]- 2366 Dec, [facility] [address] [facility] [id number], [place] [address] Dec, [facility] [place] [facility] [id number], [place] [address]- 2156 Dec, [facility] [place] [facility] [id number], [place] [address]- 5916 Dec, [facility] [address] [id number] [id number] Dec, [facility] [address] [facility] [id number], [place] [id number] Dec, [facility] [place] [facility] [address] [facility] [id number], [place] [address]- 1496 Dec, [facility] [place] [facility] [address] [facility] [id number], [place] [address]- 6126 Nov, [facility] [place] [facility] [address] [facility] [id number], [place] [address]- 9236 Oct, [facility] [place] [facility] [address], [place] [address]- 2297 Oct, [facility] [address] [id number] [place] [id number] Sep, [facility] [place] [facility] [address] [facility] [id number] [place] [address]- 3986 Sep, [facility] [address] [id number] [place] [id number] Sep, [facility] [place] [facility] [address] [facility] [id number] [place] [address]- 2681 Sep, [facility] [address] [id number] [place] [id number] Aug, [facility] [place] [facility] [address] [facility] [id number] [place] [address]- 6132 Aug, [facility] [address] [facility] [id number] [place] [id number] Aug, [facility] [place] [facility] [address], [place] [address]- 9628 Aug, [facility] [place] [facility] [address] [facility] [id number], [place] [address]- 5506 Jul, [facility] [place] [facility] [address] [facility] [id number], [place] [address]- 5191 Jul, [facility] [address] [facility] [id number], [place] [id number] Jul, [facility] [place] [facility] [address] [facility] [id number], [place] [address]- 7746 Jul, [facility] [address] [facility] [id number], [place] 850387614 Jun, [facility] [address] [id number] [place] [id number] Jun, [facility] [place] [facility] [address] [facility] [id number], [place] [address]- 7858 Jun, [facility] [place] [facility] [address] [facility] [id number], [place] [address]- 2653 Jun, [facility] [address] [id number] [place] [id number] Jun, [facility] [place] [facility] [address] [id number] [place] [address]- 0226 Jun, [facility] [address] [id number] [place] [id number] May, [facility] [place] [facility] [address] [id number] [place] [address]- 5576 May, [facility] [place] [facility] [address] [id number] [place] [address]- 6749 Apr, [facility] [place] [facility] [address] [id number] [place] [address]- 3060 Apr, [facility] [address] [facility] [id number] [place] [id number] Apr, [facility] [place] [facility] [address] [facility] [id number] [place] [address]- 5956 Apr, [facility] [place] [facility] [address] [facility] [id number] [place] [address]- 4164 Apr, [facility] [address] [facility] [id number] [place] [id number] March, [facility] [place] [facility] [address] [facility] [id number] [place] [address]- 1626 March, [facility] [place] [facility] [address] [facility] [id number] [place] [address]- 1106 March, [facility] [address] [id number], [place] [id number] March, [facility] [place] [facility] [address] [id number] [place] [address]- 2366 March, [facility] [address] [facility] [id number] [place] [id number] March, [facility] [place] [facility] [address] [id number] [place] [address] March, [facility] [address] [facility] [id number] [place] [id number] Feb, [facility] [place] [facility] [address] [facility] [place] [id number], [place] [address] Feb, [facility] [place] [facility] [address] [facility] [place] [id number], [place] [address] Jan, [facility] [address] [facility] [id number][place] [id number] Jan, [facility] [place] [facility] [address] [facility] [place] [id number], [place] [address] Jan, [facility] [place] [facility] [address] [facility] [place] [id number], [place] [address] Jan, [facility] [address] [id number][place] [id number] Jan, [facility] [address] [facility] [id number][place] [id number] Dec, [facility] [place] [facility] [id number], [place] [address] Dec, [facility] [place] [facility] [address] [facility] [place] [place] [id number], [place] [address] Dec, [facility] [address] [facility] [id number][place] [id number] Dec, [facility] [place] [facility] [address] [id number], [place] [address] Dec, [facility] [address] [facility] [id number][place] [id number] Dec, [facility] [place] [facility] [address] [facility] [place] [facility] [id number], [place] [address] Dec, [facility] [place] [facility] [address] [facility] [place] [id number], [place] [address] Dec, [facility] [address] [id number][place] [id number] Dec, [facility] [address] [facility] [id number][place] [id number] Nov, [facility] [place] [facility] [address] [facility] [place] [facility] [id number][place] [id number] Nov, [facility] [address] [id number], [place] [address] Nov, [facility] [address] [id number] [place] [id number] Nov, [facility] [address] [id number] [place] [id number] Oct, [facility] [address] [id number] [place] [address] Oct, [facility] [address] [id number] [place] [id number] Oct, [facility] [address] [id number] [place] [address] Oct, [facility] [address] [facility] [id number], [place] [address] Oct, [facility] [address] [facility] [id number], [place] [address] Oct, [facility] [place] [address] [id number][place] [id number] Oct, [facility] [address] [facility] [id number], [place] [address] Oct, [facility] [address] [facility] [id number], [place] [address] Sep, [facility] [place] [facility] [address] [id number], [place] [address] Sep, [facility] [place] [address] [id number][place] [id number] Sep, [facility] [place] [facility] [address] [id number], [place] [address] Sep, [facility] [place] [facility] [address] [id number], [place] [address] Sep, [facility] [place] [address] [id number] [place] [id number] Sep, [facility] [place] [address] [id number], [place] [id number] Aug, [facility] [address] [facility] [id number], [place] [address] Aug, [facility] [place] [facility] [address] [facility] [id number], [place] [address] Aug, [facility] [place] [address] [facility] [id number][place] [id number] Aug, [facility] [place] [address] [facility] [id number], [place] [id number] Aug, [facility] [place] [facility] [address] [facility] [id number], [place] [address] Aug, [facility] [place] [facility] [address] [facility] [id number], [place] [address] Aug, [facility] [place] [facility] [id number], [place] [address] Aug, [facility] [place] [address] [facility] [id number][place] [id number] Jul, [facility] [place] [facility] [address] [facility] [id number][place] [address] Jul, [facility] [place] [facility] [address] [facility] [id number], [place] [address] 4942 Jul, [facility] [place] [address] [facility] [id number], [place] [id number] Jul, [facility] [place] [address] [facility] [id number][place] [id number] Jul, [facility] [place] [facility] [address] [facility] [id number], [place] [address]672 May, [facility] [place] [facility] [address] [facility] [id number], [place] [address] Apr, [facility] [place] [address] [facility] [id number], [place] [id number] Apr, [facility] [place] [address] [facility] [id number], [place] [id number] Apr, [facility] [place] [facility] [address] [facility] [id number], [place] [address]46 March, [facility] [place] [address] [id number] [place] [id number] March, [facility] [place] [address] [id number] [place] [id number] March, [facility] [place] [address] [id number] [place] [id number] March, [facility] [place] [address] [id number] [place] [id number] March, [facility] [place] [address] [id number] [place] [id number] March, [facility] [address] [facility] [id number], [place] [address] March, [facility] [address] [facility] [id number], [place] [address] March, [facility] [address] [facility] [id number], [place] [address] Feb, [facility] [place] [address] [id number] [place] [id number] Feb, [facility] [place] [address] [id number] [place] [id number] Feb, [facility] [place] [address] [id number] [place] [id number] Feb, [facility] [address] [facility] [id number], [place] [address]- [address]46 Feb, [facility] [place] [address] [id number] [place] [id number] Feb, [facility] [place] [address] [id number] [place] [id number] Jan, [facility] [place] [address] [id number] [place] [id number] Jan, [facility] [place] [address] [id number] [place] [id number] Dec, [facility] [place] [address] [id number], [place] 848360832 Dec, [facility] [address] [facility] [id number], [place] [address] Dec, [facility] [place] [address] [id number] [place] [id number] Dec, [facility] [place] [address] [id number] [place] [id number] Dec, [facility] [place] [address] [id number] [place] [id number] Dec, [facility] [place] [address] [id number] [place] [id number] Dec, [facility] [address] [facility] [id number], [place] [address] Nov, [facility] [place] [address] [id number] [place] [id number] Nov, [facility] [place] [address] [id number] [place] [id number] Nov, [facility] [place] [address] [id number] [place] [id number] Nov, [facility] [place] [address] [id number] [place] [id number] Nov, [facility] [address]00565[address], [place] [address] Oct, [facility] [place] [address] [id number] [place] [id number] Oct, [facility] [place] [address] [id number], [place] [id number] Oct, [facility] [place] [address] [id number], [place] 865582097 Oct, [facility] [address] [id number], [place] [address] Oct, [facility] [id number], [place] [address] Oct, [facility] [id number], [place] [address] Oct, [facility] [place] [address] [id number], [place] 538508100 Sep, [facility] [place] [facility] [address] [facility] [id number], [place] [address] 7516 Sep, [facility] [place] [facility] [address] [facility] [id number], [place] [address] 9176 Sep, [facility] [place] [address] [id number][place] [id number] Sep, [facility] [place] [address] [id number], [place] 095314580 Sep, [facility] [place] [address] [id number], [place] 128414571 Sep, [facility] [place] [facility] [id number], [place] [address]- 9986 Sep, [facility] [place] [facility] [id number], [place] [address]- 2606 Sep, [facility] [place] [facility] [address] [facility] [id number], [place] [address]- 6816 Sep, [facility] [place] [address] [facility] [id number], [place] [id number] Aug, [facility] [place] [facility] [id number], [place] [address]- 3926 Aug, [facility] [place] [address] [facility] [id number], [place] [id number] Aug, [facility] [place] [facility] [address] [facility] [id number], [place] [address]- 3536 Aug, [facility] [place] [facility] [address] [facility] [id number], [place] [address]- 5386 Aug, [facility] [place] [address] [id number], [place] [id number] Aug, [facility] [place] [address] [facility] [id number], [place] [id number] Aug, [facility] [place] [facility] [address] [facility] [id number], [place] [address]- 7346 Aug, [facility] [place] [address] [id number] [place] [id number] Aug, [facility] [place] [address] [id number] [place] 700524253 Jul, [facility] [place] [address] [id number] [place] [id number] Jun, [facility] [place] [address] [id number] [place] 74[place]00584 May, [facility] [place] [address] [id number] [place] 562172569 May, [facility] [place] [address] [id number] [place] 204979180 May, [facility] [place] [address] [id number] [place] [id number] May, [facility] [place] [address] [id number] [place] [id number] May, [facility] [place] [address] [id number] [place] [id number] May, [facility] [place] [address] [id number] [place] 937195668 May, [facility] [place] [address] [id number] [place] [id number] Apr, [facility] [place] [address] [id number] [place] 361928231 Apr, [facility] [place] [address] [id number] [place] 707730322 Apr, [facility] [place] [address] [id number] [place] 900857124 Apr, [facility] [place] [address] [id number] [place] 876136507 Apr, [facility] [place] [address] [id number] [place] [id number] Apr, [facility] [place] [address] [id number] [place] [id number] March, [facility] [place] [address] [id number] [place] 758332189 March, [facility] [place] [address] [id number] [place] 166197411 Feb, [facility] [place] [address] [id number] [place] [id number] Feb, [facility] [place] [address] [id number] [place] [id number] Feb, [facility] [place] [address] [id number] [place] [id number] Jan, [facility] [place] [address] [id number] [place] [id number] Jan, [facility] [place] [address] [id number] [place] 198530903 Jan, [facility] [place] [address] [id number] [place] [id number] Jan, [facility] [place] [address] [id number] [place] [id number] Dec, [facility] [address] [facility] [id number] [place] [address]- 2432 Dec, [facility] [place] [address] [id number] [place] 550806716 Dec, [facility] [place] [address] [id number] [place] [id number] Nov, [facility] [place] [address] [id number] [place] [id number] Nov, [facility] [place] [address] [id number] [place] 644902332 Nov, [facility] [id number] [place] [address]- 1121 Oct, [facility] [id number] [place] [address] 16278- 4398 Oct, [facility] [id number] [place] [address] 16219057- 0289 Oct, [facility] [id number] [place] [address] [id number]- 6913 Aug, [facility] [id number] [place] [address] 83[address]- 8338 Aug, [facility] [place] [facility] [address] [id number] [place] [address]- 9289 Aug, [facility] [place] [facility] [address] [id number] [place]- [address]883 March, [facility] [place] [facility] [address] [id number] [place] [address]- 7900 Oct, [facility] [place] [facility] [address] [id number] [place] [address]- 3704 Oct, [facility] [place] [facility] [address] [id number] [place] [address]- 9712 Sep, [facility] [place] [facility] [address] [id number] [place] [address]- 1456 Sep, [facility] [place] [facility] [address] [id number] [place] [address]- 3221 Sep, [facility] [place] [facility] [address] [id number] [place] [address]- 6450 Aug, [facility] [place] [facility] [address] [id number] [place] [address]- 9112 Aug, [facility] [place] [facility] [address] [id number] [place] [address]- 2062 Jun, [facility] [place] [facility] [address] [id number], [place] [address]- 7463 May, [facility] [place] [facility] [address] [id number] [place] [address]- 4669 Jan, [facility] [place] [facility] [address] [id number] [place] [address]- 8509 Nov, [facility] [place] [facility] [address] [id number] [place] [address]- 4549 Oct, [facility] [place] [facility] [address] [id number] [place] [address]- 2964 Sep, [facility] [place] [facility] [address] [id number], [place] [address]- 9296 Sep, [facility] [address] [id number], [place] [address]- 5588 Sep, [facility] [id number], [place] [address]- 3530 Sep, [facility] [id number], [place] [address]- 2542 Sep, [facility] [id number], [place] [address]- 8065 Aug, [facility] [id number], [place]173- 2615 Aug, [facility] [id number], [place] [address]- 2637 Jul, [facility] [id number], [place] [address]- 2364 Jun, IMMUNIZATIONS No Known Immunizations SOCIAL HISTORY Never Assessed REASON FOR VISIT [facility] CARE Activity Details Follow Up 3 months or as indicated by lab Reason:DM VITAL SIGNS Height 67.7 in 2018-09-28 Weight 194.5 lbs 2018-09-28 Heart Rate 80 bpm 2018-09-28 Respiratory Rate 20 2018-09-28 BMI 29.83 kg/m2 2018-09-28 Blood pressure systolic 138 mmHg 2018-09-28 Blood pressure diastolic 90 mmHg 2018-09-28 MEDICATIONS Medication Instructions Dosage Frequency Start Date End Date Duration Status True Metrix Meter w/Device Test blood sugar 12h Aug, Active Atorvastatin Calcium 40 mg Orally Once a day TAKE ONE TABLET BY MOUTH ONCE DAILY 24h 8 weeks Active Insulin Syringe-Needle U-100 1ML/31G subcutaneously Once a day as directed 24h Active Pen [place] 31G X 8 MM subcutaneously 2 times a day as directed 12h Dec Active iron Nov, Active Lancets 1 subcutaneously 2 times a day test blood sugar 12h Aug, Active Cymbalta 60 mg Orally Once a day 1 capsule 24h Jul, Active Aspirin 81 MG Orally every 2 days 1 tablet 90 days Active True Metrix Blood Glucose Test 1 subcutaneously 2 times a day test blood sugar 12h 24 Aug, 2017 Active Levemir 100 UNIT/ML Subcutaneous 2 times a day inject 50U in am and 50U at HS 12h Dec, Active Multivitamin Adult - Active ProAir HFA 108 (90 Base) MCG/ACT Inhalation every 4-6 hours as needed 2 puffs Feb, Active Gabapentin 400MG Orally at bedtime 1 tablet Active Humalog 100 UNIT/ML Subcutaneous 3 times a day 23 units just before meals 8h Aug, Active Jardiance 10 mg Orally Once a day 1 tablet 24h March, Dec, Active Pen [place] 31G/8MM subcutaneously 2 times a day as directed 12h Active Victoza 18MG/3ML Subcutaneous Once a day 1.8mg 24h Active Insulin Syringe-Needle U-100 28G X 1/2 subcutaneously Once a day as directed 24h Dec, Active Januvia 100MG Orally Once a day TAKE ONE TABLET BY MOUTH ONCE DAILY 24h Active Cetirizine HCl 10MG TAKE ONE TABLET BY MOUTH ONCE DAILY 90 Active Fluticasone Propionate 50MCG/ACT Nasally Once a day 1 spray in each nostril 24h 12 months Active Ventolin HFA 108MCG/A INHALE TWO PUFFS BY MOUTH EVERY 4 TO 6 HOURS NEEDED FOR COUGH AND FOR SHORTNESS OF BREATH AND FOR WHEEZING Active Vitamin B-12 100 MCG Orally Once a day 1 tablet 24h Active True Metrix Blood Glucose Test - USE ONE STRIP TO CHECK GLUCOSE TWICE DAILY 50 Active RESULTS Name Result Date Reference Range A1C (IN HOUSE) 2018-09-28 A1C IN HOUSE 9.0 4.3 - 5.6 % Previous A1c 9.3 Lot [id number] Exp date 01/2020 PROCEDURES Procedure Date Ordered Result Body Site GLYCATED HEMOGLOBIN TEST Sep 28, 2018 INSTRUCTIONS MEDICATIONS ADMINISTERED No Known Medications MEDICAL [...] Hospitalization History [place] 2012 Hospitalization History Chest pain-[facility] 12/22/16
--- OUTSIDE RECORDS SUMMARY | 2018-11-01 18:36 | XMS REPORT ---
Author Author LEATHA GORMAN [facility] Address [address] [place] [address] Care Team Providers Care Income Tax Consultant Name Role Phone LEATHA GORMAN Unavailable PROBLEMS Type Condition ICD9-CM Code FAN09-AP Code Onset Dates Condition Status SNOMED Code Problem Other seasonal allergic rhinitis J30.2 Active 492719791 Problem Polyneuropathy associated with underlying disease G63 Active 853665758 Problem Other chronic pain G89.29 Active 13036194 Problem Vitamin D deficiency E55.9 Active 64003894 Problem Recurrent major depressive disorder, in partial remission F33.41 Active 05958027 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 961995776 Problem Syncope, unspecified syncope type R55 Active 766383341 Problem Stage 2 chronic kidney disease N18.2 Active 784621395 Problem Type 2 diabetes mellitus with diabetic polyneuropathy E11.42 Active 94351277 Problem Episodic mood disorder F39 Active 20185571 Problem Dyslipidemia E78.5 Active 220238932 Problem Serum creatinine raised R79.89 Active 301226667 Problem Lumbago with sciatica, left side M54.42 Active 318982241 Problem Generalized anxiety disorder F41.1 Active 88492312 Problem Lumbago with sciatica, right side M54.41 Active 585402413 ALLERGIES No Information ENCOUNTERS Encounter Location Date Diagnosis [facility] [address] [id number] [address] Nov, [facility] [id number] [place] [address] 83090- 7540 Sep, group home 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 [facility] [address] [id number] [address] 3[address] Sep, [facility] [address] [place] [address] 21892- 6955 Sep, Type 2 diabetes mellitus with diabetic polyneuropathy E11.42 ; Stage 2 chronic kidney disease N18.2 and Recurrent major depressive disorder, in partial remission F33.41 [place] [address] [place] [address] 83044- 6266 09 Sep, 2018 group home 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 [facility] [id number] [place] [address] 61679- 7153 Sep, Acute maxillary sinusitis, recurrence not specified J01.00 and Bronchiolitis J21.9 [facility] [facility] [id number] [place] [address] 42155- 4752 17 Jul, 2018 [facility] [id number] [place] [address] 27706- 8773 Jun, Type 2 diabetes mellitus with diabetic polyneuropathy E11.42 ; Open wound T14.8XXA ; 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 ; Stage 2 chronic kidney disease N18.2 and Episodic mood disorder F39 [place] [address] [place] [address] 11769- 2967 May, [facility] [id number] [place] [address] 18906- 4209 March, [place] [id number] [place] [address] 24119- 7742 March, Type 2 diabetes mellitus with diabetic [...] H60.502 and Non-adherence to medical treatment Z91.[address] [id number] [id number] 12 Feb, 2018 Dental examination Z01.20 [place] [id number] [place] [address] 61286- 1665 Feb, Labile hypertension R09.89 ; Syncope, unspecified syncope type R55 ; Chest pain, unspecified type R07.9 and Dyslipidemia E78.5 [facility] [address] [address] 1526 Feb, [facility] [id number] [place] [address] 79869- 6457 Jan, [facility] [address] [facility] [address] [id number] [address] Jan, Dental examination Z01.20 [facility] [id number] [place] [address] 99298- 5087 Jan, Acute non-recurrent maxillary sinusitis J01.00 and Dyslipidemia E78.5 [address]65[address] [id number] Jan, Dental examination Z01.20 and Dental caries K02.[address] [id number] [id number] Jan, [facility] [address] [place] [address] [id number] [place] [id number] Dec, Dental examination Z01.20 [facility] [address] [address] Dec, Seasonal allergic rhinitis, unspecified trigger J30.2 [place] [address] [place] [address] 96066- 9830 Nov, [place] [id number] [place] [address] 86070- 6137 Nov, Type 2 diabetes mellitus with diabetic polyneuropathy E11.42 ; Dyslipidemia E78.5 ; Lumbago with sciatica, right side M54.41 ; Lumbago with sciatica, left side M54.42 ; 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 ; Polyneuropathy associated with underlying disease G63 ; Stage 2 chronic kidney disease N18.2 and Syncope, unspecified syncope type R55 [place] [id number] [place] [address] 17206- 4637 14 Oct, 2017 Type 2 diabetes mellitus with diabetic polyneuropathy E11.42 ; Acute otitis externa of left ear, unspecified type H60.502 ; Overweight (BMI 25.0-29.9) E66.3 ; Dyslipidemia E78.5 and Polyneuropathy associated with underlying disease G63 [place] [address] 52728- 9045 Sep, [place] [address] 08973- 3287 Aug, Abnormal mammogram R92.[address] 88102- 8159 Aug, Type 2 diabetes mellitus with diabetic polyneuropathy E11.42 [place] [address] 30830- 4714 Aug, [place] [address] 52364- 0478 Aug, Type 2 diabetes mellitus with diabetic polyneuropathy E11.42 ; Syncope, unspecified syncope type R55 ; Other chronic pain G89.29 and Encounter for immunization Z23 [place] [address] 69494- 3069 Aug, Type 2 diabetes mellitus with diabetic polyneuropathy E11.42 [place] [id number] [place] [address] 76009- 3701 Jul, Type 2 diabetes mellitus with diabetic polyneuropathy E11.42 and Serum creatinine raised R79.89 [place] [address] 08087- 1014 Jul, Type 2 diabetes mellitus with diabetic polyneuropathy E11.42 and Serum creatinine raised R79.89 [place] [address] 56788- 6615 May, [place] [address] [place] [address]- 7072 May, [facility] [facility] [id number] [place] [address] 88280- 6736 May, Head injury, initial encounter S09.90XA ; Facial pain R51 ; Neck pain M54.2 and Fall, initial encounter W19.XXXA [place] [id number] [place] [address] 77962- 7794 May, Type 2 diabetes mellitus with diabetic polyneuropathy E11.42 [facility] [id number] [place] [address] 13415- 9527 May, [place] [address] 88777- 2511 May, Type 2 diabetes mellitus with diabetic polyneuropathy E11.42 [place] [id number] [place] [address] 58973- 0991 May, Dyslipidemia E78.5 ; 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 ; Type 2 diabetes mellitus with diabetic polyneuropathy E11.42 ; Generalized anxiety disorder F41.1 and Other seasonal allergic rhinitis J30.2 [place] [id number] [place] [address] 47383- 6269 Apr, Type 2 diabetes mellitus with diabetic polyneuropathy E11.42 [facility] [id number] [place] [address] 62849- 2711 March, [place] [id number] [place] [address] 99825- 4503 March, Abnormal mammogram R92.8 [place] [id number] [place] [address] 78358- 1067 Feb, Abnormal mammogram R92.8 [place] [id number] [place] [address] 32870- 6266 Feb, Diabetes type 2, uncontrolled E11.65 [place] [id number] [place] [address] 74562- 8570 Feb, Screening for breast cancer Z12.39 [place] [address] [address]- 8339 Jan, Screening for breast cancer Z12.39 [place] [id number] [place] [address] 38065- 2266 Jan, Type 2 diabetes mellitus with diabetic polyneuropathy E11.42 ; 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 ; Other viral agents as the cause of diseases classified elsewhere B97.89 and Acute upper respiratory infection, unspecified J06.9 [place] [id number] [place] [address] 72234- 1870 Jan, [place] [id number] [place] [address] 21394- 3249 Dec, Diabetes type 2, uncontrolled E11.65 ; Dyslipidemia E78.5 ; Generalized anxiety disorder F41.1 ; Depression, unspecified depression type F32.9 ; group home 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 and Polyneuropathy associated with underlying disease G63 [place] [address] [place] [address] 77927- 1887 Dec, [place] [id number] [place] [address] 31765- 2427 Dec, [address]005[address] [address]- 6481 Dec, [place] [id number] [place] [address] 20279- 3643 Dec, [address] [place] [address] 60533- 7301 Oct, Well woman exam Z01.419 ; Screening for breast cancer Z12.39 ; group home 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 ; Type 2 diabetes mellitus without complications E11.9 and Encounter for immunization Z23 [address] [place] [address] 63514- 4794 Sep, [place] [id number] [place] [address] 50103- 2706 Sep, Diabetes type 2, uncontrolled E11.65 ; Dyslipidemia E78.5 and Depression, unspecified depression type F32.9 [place] [id number] [place] [address] 95543- 8446 Aug, Diabetes type 2, uncontrolled E11.65 ; Encounter for immunization Z23 ; Nasal congestion R09.81 and Ear pressure, bilateral H93.8X3 [place] [address] 29119- 8553 08 Jul, 2016 Eustachian tube dysfunction, left H69.82 [place] [address] 08790- 1241 Jun, [place] [address] 49372- 6927 Jun, Hospital discharge follow-up Z09 ; Syncope, unspecified syncope type R55 and Acute suppurative otitis media of left ear without spontaneous rupture of tympanic membrane, recurrence not specified H66.002 [place] [id number] [place] [address] 88127- 2367 May, [place] [address] 36749- 9647 May, [place] [id number] [place] [address] 88077- 9250 May, [place] [id number] [place] [address] 10587- 6901 May, Diabetes type 2, uncontrolled E11.65 ; [...] disturbance G47.9 and Generalized anxiety disorder F41.1 [facility] [address] [id number] [address]- 2546 March, [facility] [place] [address] [id number] [id number] March, Syncope, unspecified syncope type R55 and Depression, unspecified depression type F32.9 [facility] [place] [id number], [place] [address] March, Orthostatic hypotension I95.1 [facility] [place] [id number], [place] [address] March, [facility] [address] [id number] [address]- 2546 March, [facility] [place] [id number], [place] [id number] Feb, [facility] [place] [id number] [address] Feb, Dental examination Z01.20 [facility] [place] [address] [id number][place] [id number] Jan, [facility] [place] [address] [id number][place] [address] Jan, [facility] [place] [address] [id number], [place] [address] Dec, Diabetes type 2, uncontrolled E11.65 [facility] [place] [address] [id number][place] [id number] Nov, [facility] [place] [address] [id number] [id number] Nov, Encounter for dental examination Z01.20 [facility] [place] [address] [id number][place] [id number] Nov, Dental examination Z01.20 [facility] [place] [address] [id number][place] [address] Sep, Diabetes type 2, uncontrolled E11.65 [facility] [place] [address] [id number] [address] Sep, Encounter for dental examination Z01.20 and Dental caries, unspecified K02.9 [facility] [id number], [place] [address] Sep, Bipolar 2 disorder F31.81 [facility] [place] [id number] [place] [address] [id number] Aug, [facility] [place] [id number] [place] [address] [id number] Aug, Follow up V67.9 [facility] [id number] [place] [address] 75650- 6308 Jul, Bipolar disorder, unspecified 296.80 [facility] [place] [id number] [place] [address] [id number] Jul, Thyroid enlarged 240.9 and Bipolar disorder, unspecified 296.80 [facility] [address] [place] [address] [id number] Jun, Diabetes mellitus type 2, uncontrolled 250.02 ; Bipolar disorder, unspecified 296.80 and Rash 782.1 [facility] [id number] [place] [address] [id number] Jun, [facility] [id number] [place] [address] [id number] May, Urinary tract infection 599.0 [facility] [id number] [place] [address] [id number] May, Urinary tract infection 599.0 [facility] [address] [place] [address] [id number] May, [facility] [place] [id number] [place] [address] [id number] May, Diabetes mellitus type 2, uncontrolled 250.02 and Pica in adults 307.52 [facility] [id number] [place] [address] [id number] Apr, Follow up V67.9 and Diabetes mellitus type 2, uncontrolled 250.02 [facility] [id number] [place] [address] [id number] Apr, [facility] [id number] [place] [address] 34390679- 6437 Apr, [facility] [address] [id number] [id number] Apr, Hyperlipidemia 272.4 [facility] [id number] [place] [address] [id number] March, Diabetes type 2, uncontrolled 250.02 [facility] [place] [id number], [place] [address] March, Diabetes mellitus type 2, uncontrolled 250.02 [facility] [id number] [place] [address] [id number] March, Diabetes type 2, uncontrolled 250.02 [facility] [id number] [place] [address] [id number] March, [facility] [id number] [place] [address] [id number] March, [facility] [id number] [place] [address] [id number] Feb, [facility] [place] [facility] [address]005[address] [address]- 2546 Feb, [facility] [place] [facility] [address]00565100[place] [address]- 2546 Feb, [facility] [id number], [place] [id number] Jan, [facility] [place] [facility] [address]100[place] [address]- 2546 Jan, [facility] [place] [facility] [address]005[address] [address]- 2546 Jan, [facility] [address] [id number], [place] [id number] Jan, [facility] [place] [facility] [id number] [place] [address] 56875- 2546 Jan, [facility] [place] [facility] [address]005[address] [address]- 2546 Jan, [facility] [address] [id number], [place] [id number] Jan, [facility] [facility] [address] [facility] [id number] [place] [address]- 6706 Jan, [facility] [place] [facility] [address] [facility] [id number] [place] [address]- 0646 Dec, [facility] [address] [facility] [id number] [place] [id number] Dec, [facility] [place] [facility] [address] [facility] [id number] [place] [address]- 9126 Dec, 2014 [facility] [address] [facility] [id number] [place] [id number] Dec, [facility] [place] [facility] [address] [facility] [id number] [place] [address]- 2546 Dec, 2014 [facility] [address] [facility] [id number] [place] [id number] Dec, [facility] [place] [facility] [id number] [place] [address]- 4946 Dec, [facility] [place] [facility] [address] [facility] [id number] [place] [address]- 9176 Dec, [facility] [address] [facility] [id number], [place] [id number] Dec, [facility] [address] [facility] [id number], [place] [id number] Dec, [facility] [place] [facility] [address] [id number] [address]- 9756 Dec, [facility] [place] [facility] [address] [facility] [id number] [place] [address]- 2546 Nov, [facility] [place] [facility] [address] [facility] [id number] [place] [address]- 4993 Oct, [facility] [place] [facility] [address] [facility] [id number] [place] [address]- 8256 Oct, [facility] [address] [facility] [id number], [place] [id number] Sep, [facility] [place] [facility] [address] [facility] [id number] [place] [address]- 8702 Sep, [facility] [address] [facility] [id number] [place] [id number] Sep, [facility] [place] [facility] [address] [facility] [id number] [place] [address]- 5546 Sep, [facility] [address] [facility] [id number], [place] [id number] Aug, [facility] [place] [facility] [address] [facility] [id number] [place] [address]- 0691 Aug, [facility] [address] [facility] [id number], [place] [id number] Aug, [facility] [place] [facility] [address] [facility] [id number] [place] [address]- 5371 Aug, [facility] [place] [facility] [address]005[address]100[place] [address]- 2411 Jul, [facility] [place] [facility] [address] [facility] [id number] [place] [address]- 6681 Jul, [facility] [address] [facility] [id number], [place] [id number] Jul, [facility] [place] [facility] [address] [facility] [id number] [place] [address]- 9378 Jul, [facility] [address] [facility] [id number], [place] [id number] Jun, [facility] [address] [facility] [id number], [place] [id number] Jun, [facility] [place] [facility] [address] [facility] [id number] [place] [address]- 5899 Jun, [facility] [place] [facility] [address] [facility] [id number] [place] [address]- 6204 Jun, [facility] [address] [facility] [id number], [place] [id number] Jun, [facility] [place] [facility] [address] [facility] [id number] [place] [address]- 4036 Jun, [facility] [address] [facility] [id number], [place] [address]52[address] May, [facility] [place] [facility] [address] [facility] [id number] [place] [address]- 5982 May, [facility] [place] [facility] [address] [facility] [id number] [place] [address]- 6227 Apr, [facility] [place] [facility] [address] [facility] [id number] [place] [address]- 2195 Apr, [facility] [address] [facility] [id number] [place] [id number] Apr, [facility] [place] [facility] [address] [facility] [id number] [place] [address]- 1394 Apr, [facility] [place] [facility] [address] [id number] [place] [address]- 9557 Apr, [facility] [address] [id number] [place] [id number] March, [facility] [place] [facility] [address] [facility] [id number] [place] [address]- 0288 March, [facility] [place] [facility] [address] [facility] [id number] [place] [address]- 0562 March, [facility] [address] [facility] [id number], [place] [id number] March, [facility] [place] [facility] [address] [facility] [id number] [place] [address]- 9686 March, [facility] [address] [facility] [id number], [place] [id number] March, [facility] [place] [facility] [address] [facility] [id number] [place] [address]- 6323 March, [facility] [address] [facility] [id number], [place] [id number] Feb, [facility] [place] [facility] [address] [facility] [id number] [place] [address]- 3351 Feb, [facility] [place] [facility] [address] [facility] [id number] [place] [address]- 0876 Jan, [facility] [address] [facility] [id number] [place] [id number] Jan, [facility] [place] [facility] [address] [facility] [id number] [place] [address] Jan, [facility] [address] [facility] [id number] [place] [address] Jan, [facility] [address] [id number] [place] [id number] Jan, [facility] [address] [facility] [id number] [place] [id number] Dec, [facility] [id number] [place] [address] Dec, [facility] [address] [id number] [place] [address] Dec, [facility] [address] [id number] [id number] Dec, [facility] [address] [id number] [place] [address] Dec, [facility] [address] [facility] [id number][place] [id number] Dec, [facility] [id number] [place] [address] Dec, [facility] [id number] [place] [address] Dec, [facility] [address] [facility] [id number][place] [id number] Dec, [facility] [address] [facility] [id number][place] [id number] Nov, [facility] [address] [facility] [id number] [place] [address] Nov, [facility] [address] [id number] [place] [address] Nov, [facility] [address] [id number][place] [id number] Nov, [facility] [address] [id number] [place] [id number] Oct, [facility] [address] [facility] [id number] [place] [address] Oct, [facility] [address] [id number][place] [id number] Oct, [facility] [address] [facility] [id number] [place] [address] Oct, [facility] [address] [facility] [id number] [place] [address] Oct, [facility] [address] [facility] [id number] [place] [address] Oct, [facility] [address] [facility] [id number][place] [id number] Oct, [facility] [address] [facility] [id number] [place] [address] Oct, [facility] [id number] [place] [address] Sep, [facility] [address] [facility] [id number] [place] [address] Sep, [facility] [address] [facility] [id number][place] [id number] Sep, [facility] [address] [facility] [id number] [place] [address] Sep, [facility] [address] [facility] [facility] [facility] [id number] [address] Sep, [facility] [place] [address] [id number][place] [id number] Sep, [facility] [place] [address] [facility] [id number][place] [id number] Aug, [facility] [place] [facility] [address] [facility] [id number] [place] [id number] [address] Aug, [facility] [address] [facility] [id number] [place] [address] Aug, [facility] [place] [address] [id number][place] [id number] Aug, [facility] [address] [id number] [place] [id number] Aug, [facility] [place] [facility] [address] [facility] [id number] [place] [address] Aug, [facility] [place] [facility] [address] [facility] [id number] [place] [address] Aug, [facility] [place] [facility] [address] [facility] [id number] [place] [address] Aug, [facility] [address] [id number], [place] [id number] Jul, [facility] [address] [facility] [id number] [place] [address] Jul, [facility] [address] [facility] [id number] [place] [address] Jul, [facility] [place] [address] [id number], [place] [id number] Jul, [facility] [address] [id number][place] [id number] Jul, [facility] [place] [facility] [address] [facility] [id number] [place] [address] May, [facility] [place] [facility] [address] [facility] [id number] [place] [address] Apr, [facility] [address] [id number], [place] [id number] Apr, [facility] [place] [address] [id number], [place] [id number] Apr, [facility] [place] [facility] [address] [facility] [id number] [place] [address] March, [facility] [place] [address] [id number], [place] [id number] March, [facility] [place] [address] [id number] [place] [id number] March, [facility] [place] [address] [id number] [place] [id number] March, [facility] [place] [address] [id number] [place] [id number] March, [facility] [place] [address] [id number] [place] [id number] March, [facility] [address] [facility] [id number] [place] [address] March, [facility] [id number] [place] [address] March, [facility] [address] [place] [place] [id number] [place] [address] Feb, [facility] [place] [address] [id number] [place] [id number] Feb, [facility] [place] [address] [id number] [place] [id number] Feb, [facility] [place] [address] [id number] [place] [id number] Feb, [facility] [address]00565100[place] [address] Feb, [facility] [place] [address] [id number] [place] [id number] Feb, [facility] [place] [address] [id number] [place] [id number] Jan, [facility] [place] [address] [id number] [place] [id number] Jan, [facility] [place] [address] [id number] [place] [id number] Dec, [facility] [place] [address] [id number] [place] [id number] Dec, [facility] [address]00565100[place] [address] Dec, [facility] [place] [address] [id number] [place] [id number] Dec, [facility] [place] [address] [id number] [place] [id number] Dec, [facility] [place] [address] [id number] [place] [id number] Dec, [facility] [place] [address] [id number] [place] [id number] Dec, [facility] [address] [facility] [id number] [place] [address] Nov, [facility] [place] [address] [id number] [place] [id number] Nov, [facility] [place] [address] [id number] [place] [id number] Nov, [facility] [place] [address] [id number] [place] [id number] Nov, [facility] [place] [address] [id number] [place] [id number] Nov, [facility] [address]00565100[address] [place] 48975839- [address] Oct, [facility] [place] [address] [id number] [place] [id number] Oct, [facility] [place] [address] [id number] [place] [id number] Oct, [facility] [place] [address] [id number] [place] [id number] Oct, [facility] [address] [facility] [id number] [place] 25874925- [address]67 Oct, [facility] [place] [facility] [address] [facility] [id number] [place] [address] Oct, [facility] [place] [facility] [address]00565100[address] [place]- [address] Oct, [facility] [place] [address] [id number], [place] 669310090 Sep, [facility] [address] [id number] [address] Sep, [facility] [place] [facility] [address] [id number] [place] [address] Sep, [facility] [address] [id number], [place] [id number] Sep, [facility] [address] [id number], [place] [id number] Sep, [facility] [id number] [place] [address] [id number] Sep, [facility] [place] [facility] [address] [facility] [id number] [place] [address]- [address]97 Sep, [facility] [place] [facility] [address] [facility] [id number] [place] [address]- 3905 Sep, [facility] [place] [facility] [address]00565100[place] [address]60 Sep, [facility] [place] [address] [facility] [id number], [place] [id number] Aug, [facility] [place] [facility] [address] [facility] [id number] [place] [address]- 1475 Aug, [facility] [place] [address] [facility] [id number], [place] [id number] Aug, [facility] [place] [facility] [address] [facility] [id number] [place] [address] Aug, [facility] [place] [facility] [address] [facility] [id number] [place] [address]- [address] Aug, [facility] [place] [address] [id number], [place] [id number] Aug, [facility] [address] [id number], [place] 722729860 Aug, [facility] [place] [facility] [address] [facility] [id number] [place] [address]- [address] Aug, [facility] [address] [id number], [place] 728639969 Aug, [facility] [place] [address] [id number] [place] [id number] Jul, [facility] [place] [address] [id number] [place] [id number] Jun, [facility] [place] [address] [id number] [place] [id number] May, [facility] [place] [address] [id number] [place] [id number] May, [facility] [place] [address] [id number] [place] [id number] May, [facility] [place] [address] [id number] [place] [id number] May, [facility] [place] [address] [id number] [place] [id number] May, [facility] [place] [address] [id number] [place] [id number] May, [facility] [place] [address] [id number] [place] [id number] May, [facility] [place] [address] [id number] [place] [id number] Apr, [facility] [place] [address] [id number] [place] [id number] Apr, [facility] [place] [address] [id number] [place] 926783982 Apr, [facility] [place] [address] [id number] [place] [id number] Apr, [facility] [place] [address] [id number] [place] [id number] Apr, [facility] [place] [address] [id number] [place] [id number] Apr, [facility] [place] [address] [id number] [place] [id number] March, [facility] [place] [address] [id number] [place] [id number] March, [facility] [place] [address] [id number] [place] [id number] Feb, [facility] [place] [address] [id number] [place] [id number] Feb, [facility] [place] [address] [id number] [id number] Feb, [facility] [place] [address] [id number] [place] [id number] Jan, [facility] [place] [address] [id number] [place] [id number] Jan, [facility] [place] [address] [id number] [place] [id number] Jan, [facility] [place] [address] [id number] [place] [id number] Jan, [facility] [place] [address] [id number] [place] [id number] Dec, [facility] [place] [facility] [id number] [place] [address]- 5106 Dec, [facility] [place] [address] [id number] [place] [id number] Dec, [facility] [place] [address] [id number] [place] [id number] Nov, [facility] [place] [address] [id number] [place] [id number] Nov, [facility] [place] [address] [id number] [place] [id number] Nov, [facility] [place] [facility] [address]00565100[place] [address]- 4673 Oct, [facility] [place] [facility] [id number] [place] [address]05- 6547 Oct, [facility] [place] [facility] [id number] [place] [address] 50272- 8701 Oct, [facility] [place] [facility] [id number] [place] [address] 10244- 6915 Aug, [facility] [place] [facility] [id number] [place] [address] 84857- 1654 Aug, [facility] [place] [facility] [id number] [place] [address] 369730- 7024 Aug, [facility] [address] [id number] [place] [address]- 1441 March, [facility] [place] [facility] [address] [id number] [place] [address]- 5337 Oct, [facility] [place] [facility] [address] [id number] [place] [address]- 2018 Oct, [facility] [place] [facility] [address] [id number] [place] [address]- 2095 Sep, [facility] [place] [facility] [address] [id number] [place] [address]- 6207 Sep, [facility] [place] [facility] [address] [id number] [place] [address]- 6616 Sep, [facility] [place] [facility] [address] [id number] [place] [address]- 2303 Aug, [facility] [place] [facility] [address] [id number] [place] [address]- 9122 Aug, [facility] [place] [facility] [address] [id number] [place] [address]- 9376 Jun, [facility] [place] [facility] [address] [id number] [place] [address]- 8775 May, [facility] [place] [facility] [address] [id number] [place] [address]- 4486 Jan, [facility] [place] [facility] [address] [id number] [place] [address]- 2306 Nov, [facility] [place] [facility] [address] [id number] [place] [address]- 6263 Oct, [facility] [place] [facility] [address] [id number] [place] [address]- 4786 Sep, [facility] [place] [facility] [address] [id number] [place] [address]- 4107 Sep, [facility] [place] [facility] [address] [id number] [place] [address]- 1436 Sep, [facility] [address] [facility] [id number] [place] 15254324- 8169 Sep, [facility] [address] [facility] [id number] [place] [address]- 1015 Sep, [facility] [address] [facility] [id number] [place] [address]- 8596 Aug, [facility] [address] [facility] [id number] [place] 393348- 3543 Aug, [facility] [address] [facility] [id number] [place] 6154[place]- 2114 Jul, [facility] [address] [facility] [id number] [place] [address]- 4236 Jun, IMMUNIZATIONS No Known Immunizations SOCIAL HISTORY Never Assessed REASON FOR VISIT diabetes education initial PLAN OF CARE VITAL SIGNS MEDICATIONS Medication Instructions Dosage Frequency Start Date End Date Duration Status Atorvastatin Calcium 40 mg Orally Once a day TAKE ONE TABLET BY MOUTH ONCE DAILY 24h 8 weeks Active iron Nov, Active True Metrix Meter w/Device Test blood sugar 12h Aug, Active True Metrix Blood Glucose Test 1 subcutaneously 2 times a day test blood sugar 12h Aug, Active True Metrix Blood Glucose Test - USE ONE STRIP TO CHECK GLUCOSE TWICE DAILY 50 Active Lancets 1 subcutaneously 2 times a day test blood sugar 12h Aug, Active Januvia 100MG Orally Once a day TAKE ONE TABLET BY MOUTH ONCE DAILY 24h Active Levemir 100 UNIT/ML Subcutaneous 2 times a day inject 50U in am and 50U at HS 12h Dec, Active Aspirin 81 MG Orally every 2 days 1 tablet 90 days Active Gabapentin 400MG Orally at bedtime 1 tablet Active Victoza 18MG/3ML Subcutaneous Once a day 1.8mg 24h Active Insulin Syringe-Needle U-100 1ML/31G subcutaneously Once a day as directed 24h Active Humalog 100 UNIT/ML Subcutaneous 3 times a day 23 units just before meals 8h Aug, Active Insulin Syringe-Needle U-100 28G X 1/2 subcutaneously Once a day as directed 24h Dec, Active Pen Purchase 31G X 8 MM subcutaneously 2 times a day as directed 12h Dec Active Multivitamin Adult - Active Jardiance 10 mg Orally Once a day 1 tablet 24h March, Dec, Active Pen Purchase 31G/8MM subcutaneously 2 times a day as directed 12h Active Fluticasone Propionate 50MCG/ACT Nasally Once a day 1 spray in each nostril 24h 12 months Active Cymbalta 60 mg Orally Once a day 1 capsule 24h 30 Jul, 2015 Active Ventolin HFA 108MCG/A INHALE TWO PUFFS BY MOUTH EVERY 4 TO 6 HOURS NEEDED FOR COUGH AND FOR SHORTNESS OF BREATH AND FOR WHEEZING Active Vitamin B-12 100 MCG Orally Once a day 1 tablet 24h Active ProAir HFA 108 (90 Base) MCG/ACT Inhalation every 4-6 hours as needed 2 puffs Feb, Active Cetirizine HCl 10MG TAKE ONE TABLET BY MOUTH ONCE DAILY 90 Active RESULTS No Results PROCEDURES No Known [...] 08/2016 Hospitalization History chest pain ED visit [facility], pt scheduled for heart cath on May Hospitalization History [place] 2012 Hospitalization History Chest pain-[facility] 12/22/16
--- OUTSIDE RECORDS SUMMARY | 2018-11-01 18:37 | XMS REPORT ---
Author Author KING CHUY [facility] Address [address] [place] [address] Care Team Providers Care Biological Science Technician Fish Name Role Phone CHUY CERDA Unavailable PROBLEMS Type Condition ICD9-CM Code RPZ99-WP Code Onset Dates Condition Status SNOMED Code Problem Other seasonal allergic rhinitis J30.2 Active 819187706 Problem Polyneuropathy associated with underlying disease G63 Active 584516208 Problem Other chronic pain G89.29 Active 63670779 Problem Vitamin D deficiency E55.9 Active 24613765 Problem Recurrent major depressive disorder, in partial remission F33.41 Active 38459595 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 Active 236283271 Problem Syncope, unspecified syncope type R55 Active 182857094 Problem Stage 2 chronic kidney disease N18.2 Active 015901947 Problem Type 2 diabetes mellitus with diabetic polyneuropathy E11.42 Active 50080552 Problem Episodic mood disorder F39 Active 37976500 Problem Dyslipidemia E78.5 Active 060989471 Problem Serum creatinine raised R79.89 Active 365754515 Problem Lumbago with sciatica, left side M54.42 Active 657200751 Problem Generalized anxiety disorder F41.1 Active 86047018 Problem Lumbago with sciatica, right side M54.41 Active 483682642 ALLERGIES No Information ENCOUNTERS Encounter Location Date Diagnosis [facility] [id number], [place] [address] Nov, [facility] [address], [place] [address] Sep, [facility] [address] [place] [address] 47797- 9789 Sep, [facility] [id number], [place] [address] 3[address] Sep, Type 2 diabetes mellitus with diabetic polyneuropathy E11.42 ; Stage 2 chronic kidney disease N18.2 and Recurrent major depressive disorder, in partial remission F33.41 [facility] [address] [place] [address] 77158- 0192 09 Sep, 2018 custodial 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 [facility] [id number] [place] [address] 00803- 5266 Sep, Acute maxillary sinusitis, recurrence not specified J01.00 and Bronchiolitis J21.9 [facility] [id number] [place] [address] 60342- 1432 17 Jul, 2018 [facility] [id number] [place] [address] 07964- 0785 Jun, Type 2 diabetes mellitus with diabetic polyneuropathy E11.42 ; Open wound T14.8XXA ; custodial 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 ; Stage 2 chronic kidney disease N18.2 and Episodic mood disorder F39 [place] [address] [place] [address] 94404- 4438 May, [facility] [place] [id number] [place] [address] 95557- 2054 March, [facility] [place] [id number] [place] [address] 65861- 8386 March, Type 2 diabetes mellitus with diabetic [...] H60.502 and Non-adherence to medical treatment Z91.[address] [id number] [id number] 12 Feb, 2018 Dental examination Z01.20 [facility] [address] [place] [address] 10886- 1821 Feb, Labile hypertension R09.89 ; Syncope, unspecified syncope type R55 ; Chest pain, unspecified type R07.9 and Dyslipidemia E78.5 [facility] [address] [place] [address] Feb, [facility] [id number] [place] [address] 26152- 4316 Jan, [address] [id number] [place] [address] [id number] Jan, Dental examination Z01.20 [facility] [id number] [place] [address] 72254- 0985 Jan, Acute non-recurrent maxillary sinusitis J01.00 and Dyslipidemia E78.5 [address] [id number] Jan, Dental examination Z01.20 and Dental caries K02.9 [address] [place] [address] [id number] Jan, [address] [place] [address] [id number] Dec, Dental examination Z01.20 [facility] [address] [place] [address] 31699 -0407 Dec, Seasonal allergic rhinitis, unspecified trigger J30.2 [place] [id number] [place] [address] 81463- 2616 Nov, [facility] [id number] [place] [address] 18605- 1882 Nov, Type 2 diabetes mellitus with diabetic polyneuropathy E11.42 ; Dyslipidemia E78.5 ; Lumbago with sciatica, right side M54.41 ; Lumbago with sciatica, left side M54.42 ; 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 ; Polyneuropathy associated with underlying disease G63 ; Stage 2 chronic kidney disease N18.2 and Syncope, unspecified syncope type R55 [facility] [id number] [place] [address] 70947- 9112 Oct, Type 2 diabetes mellitus with diabetic polyneuropathy E11.42 ; Acute otitis externa of left ear, unspecified type H60.502 ; Overweight (BMI 25.0-29.9) E66.3 ; Dyslipidemia E78.5 and Polyneuropathy associated with underlying disease G63 [place] [id number] [place] [address] 59084- 6609 Sep, [place] [address] 70245- 1832 Aug, Abnormal mammogram R92.[address] 07755- 8665 Aug, Type 2 diabetes mellitus with diabetic polyneuropathy E11.42 [place] [address] 57726- 2917 Aug, [place] [address] 47076- 2351 Aug, Type 2 diabetes mellitus with diabetic polyneuropathy E11.42 ; Syncope, unspecified syncope type R55 ; Other chronic pain G89.29 and Encounter for immunization Z23 [place] [address] 65321- 6730 Aug, Type 2 diabetes mellitus with diabetic polyneuropathy E11.42 [facility] [id number] [place] [address] 67988- 7778 Jul, Type 2 diabetes mellitus with diabetic polyneuropathy E11.42 and Serum creatinine raised R79.[address] 85388- 3247 Jul, Type 2 diabetes mellitus with diabetic polyneuropathy E11.42 and Serum creatinine raised R79.89 [place] [id number] [place] [address] 21040- 7745 May, [place] [address] 99228- 3419 May, [place] [address] [place] [address] 91818- 1221 May, Head injury, initial encounter S09.90XA ; Facial pain R51 ; Neck pain M54.2 and Fall, initial encounter W19.XXXA [place] [id number] [place] [address] 02113- 3900 May, Type 2 diabetes mellitus with diabetic polyneuropathy E11.42 [facility] [id number] [place] [address] 71931- 0673 May, [place] [address] 37998- 8724 May, Type 2 diabetes mellitus with diabetic polyneuropathy E11.42 [place] [place] [id number] [place] [address] 70502- 9886 May, Dyslipidemia E78.5 ; custodial 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 ; Type 2 diabetes mellitus with diabetic polyneuropathy E11.42 ; Generalized anxiety disorder F41.1 and Other seasonal allergic rhinitis J30.2 [place] [id number] [place] [address] 88835- 9332 Apr, Type 2 diabetes mellitus with diabetic polyneuropathy E11.42 [facility] [id number] [place] [address] 86572- 5017 March, [place] [id number] [place] [address] 25945- 5647 March, Abnormal mammogram R92.8 [place] [id number] [place] [address] 29854- 3855 Feb, Abnormal mammogram R92.8 [place] [id number] [place] [address] 49311- 3746 Feb, Diabetes type 2, uncontrolled E11.65 [place] [id number] [place] [address] 00786- 0336 Feb, Screening for breast cancer Z12.39 [place] [address] [place] [address] 75797- 9701 Jan, Screening for breast cancer Z12.39 [place] [id number] [place] [address] 32929- 5701 Jan, Type 2 diabetes mellitus with diabetic polyneuropathy E11.42 ; custodial 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 ; Other viral agents as the cause of diseases classified elsewhere B97.89 and Acute upper respiratory infection, unspecified J06.9 [place] [id number] [place] [address] 68631- 2198 Jan, [place] [address] 02217- 5305 Dec, Diabetes type 2, uncontrolled E11.65 ; Dyslipidemia E78.5 ; Generalized anxiety disorder F41.1 ; Depression, unspecified depression type F32.9 ; 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 and Polyneuropathy associated with underlying disease G63 [place] [address] [place] [address] 50398- 5611 16 Dec, 2016 [place] [id number] [place] [address] 78049- 0687 14 Dec, 2016 [place] [id number] [place] [address] 04097- 1002 Dec, [place] [id number] [place] [address] 51651- 0992 Dec, [place] [id number] [place] [address] 41327- 0712 Oct, Well woman exam Z01.419 ; Screening for breast cancer Z12.39 ; custodial 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 ; Type 2 diabetes mellitus without complications E11.9 and Encounter for immunization Z23 [place] [id number] [place] [address] 63168- 0186 Sep, [place] [id number] [place] [address] 86983- 4633 Sep, Diabetes type 2, uncontrolled E11.65 ; Dyslipidemia E78.5 and Depression, unspecified depression type F32.9 [place] [id number] [place] [address] 40791- 1909 Aug, Diabetes type 2, uncontrolled E11.65 ; Encounter for immunization Z23 ; Nasal congestion R09.81 and Ear pressure, bilateral H93.8X3 [place] [id number] [place] [address] 02920- 2694 Jul, Eustachian tube dysfunction, left H69.82 [place] [id number] [place] [address] 52501- 1872 Jun, [place] [id number] [place] [address] 68965- 0310 Jun, Hospital discharge follow-up Z09 ; Syncope, unspecified syncope type R55 and Acute suppurative otitis media of left ear without spontaneous rupture of tympanic membrane, recurrence not specified H66.002 [place] [id number] [place] [address] 58812- 5758 May, [place] [id number] [place] [address] 96905- 1373 May, [place] [id number] [place] [address] 76093- 2702 May, [place] [id number] [place] [address] 82222- 5098 May, Diabetes type 2, uncontrolled E11.65 ; [...] disturbance G47.9 and Generalized anxiety disorder F41.1 [place] [id number], [place] [address]- 2546 March, [facility] [address] [id number][place] [address] March, Syncope, unspecified syncope type R55 and Depression, unspecified depression type F32.9 [facility] [address] [id number][place] [address] March, Orthostatic hypotension I95.1 [facility] [id number] [place] [address] [id number] March, [facility] [address] [id number], [place] [address]- 2546 March, [facility] [id number] [place] [address] [id number] Feb, [facility] [address] [id number] [place] [address] Feb, Dental examination Z01.20 [facility] [address] [id number][place] [address]40[address] Jan, [facility] [address] [id number][place] [id number] Jan, [facility] [address] [id number][place] 44778[address] Dec, Diabetes type 2, uncontrolled E11.65 [facility] [address] [id number][place] [id number] Nov, [facility] [address] [id number] [place] [id number] Nov, Encounter for dental examination Z01.[address] [facility] [address] [id number] [place] [address] Nov, Dental examination Z01.20 [facility] [address] [id number][place] [id number] Sep, Diabetes type 2, uncontrolled E11.65 [facility] [id number] [place] [address] Sep, Encounter for dental examination Z01.20 and Dental caries, unspecified K02.9 [facility] [id number], [place] [address] Sep, Bipolar 2 disorder F31.81 [facility] [id number] [place] [address] [id number] Aug, [facility] [id number] [place] [address] [id number] Aug, Follow up V67.9 [facility] [id number] [place] [address] 10132629- 9820 Jul, Bipolar disorder, unspecified 296.80 [facility] [id number] [place] [address] [id number] Jul, Thyroid enlarged 240.9 and Bipolar disorder, unspecified 296.80 [facility] [id number] [place] [address] [id number] Jun, Diabetes mellitus type 2, uncontrolled 250.02 ; Bipolar disorder, unspecified 296.80 and Rash 782.1 [facility] [id number] [place] [address] [id number] Jun, [facility] [id number] [place] [address] [id number] May, Urinary tract infection 599.0 [facility] [id number] [place] [address] [id number] May, Urinary tract infection 599.0 [facility] [id number] [place] [address] [id number] May, [facility] [id number] [place] [address] [id number] May, Diabetes mellitus type 2, uncontrolled 250.02 and Pica in adults 307.52 [facility] [address] [place] [address] [id number] Apr, Follow up V67.9 and Diabetes mellitus type 2, uncontrolled 250.02 [facility] [id number] [place] [address] [id number] Apr, [facility] [address] [place] [address] 14892353- 8744 Apr, [facility] [address] [id number][place] [address] Apr, Hyperlipidemia 272.4 [facility] [address] [id number], [place] [id number] March, Diabetes type 2, uncontrolled 250.02 [facility] [address] [id number][place] [address] March, Diabetes mellitus type 2, uncontrolled 250.02 [facility] [id number] [place] [address] [id number] March, Diabetes type 2, uncontrolled 250.02 [facility] [id number], [place] [id number] March, [facility] [id number] [place] [address] [id number] March, [facility] [id number], [place] [id number] Feb, [facility] [place] [facility] [address], [place] [address]- 2546 Feb, [facility] [place] [facility] [address], [place] [address]- 2546 Feb, [facility] [id number], [place] [address] Jan, [facility] [place] [facility] [address], [place] [address]- 2546 Jan, [facility] [place] [facility] [address], [place] [address]- 2546 Jan, [facility] [id number], [place] [id number] Jan, [facility] [place] [facility] [id number] [place] [address] 23341- 2546 Jan, [facility] [place] [facility] [address], [place] [address]- 2546 Jan, [facility] [address] [id number], [place] [id number] Jan, [facility] [place] [facility] [id number], [place] [address]- 8469 Jan, [facility] [place] [facility] [address] [facility] [id number], [place] [address]- 4990 Dec, [facility] [address] [facility] [id number], [place] [id number] Dec, [facility] [place] [facility] [address], [place] [address]- 1016 Dec, [facility] [address] [id number], [place] [id number] Dec, 2014 [facility] [place] [facility] [address] [facility] [id number], [place] [address]- 7213 Dec, [facility] [address] [id number], [place] 604373454 Dec, [facility] [place] [facility] [address], [place] [address]- 4748 Dec, [facility] [place] [facility] [address], [place] [address]- 5726 Dec, [facility] [id number], [place] [id number] Dec, [facility] [address] [id number], [place] 75[address]264[address] Dec, [facility] [place] [facility] [address], [place] [address]- 8397 Dec, [facility] [place] [facility] [address] [facility] [id number], [place] [address]- 6364 Nov, [facility] [place] [facility] [id number], [place] [address]- 1111 Oct, [facility] [place] [facility] [address] [facility] [id number], [place] [address]- 8589 Oct, [facility] [address] [id number], [place] [id number] Sep, [facility] [place] [facility] [address], [place] [address]- 6644 Sep, [facility] [address] [id number] [place] [id number] Sep, [facility] [place] [facility] [address] [facility] [id number], [place] [address]- 7709 Sep, [facility] [address] [id number], [place] [id number] Aug, [facility] [place] [facility] [address] [id number], [place] [address]- 5985 Aug, [facility] [address] [id number], [place] 012231035 Aug, [facility] [place] [facility] [address] [facility] [id number], [place] [address]- 6312 Aug, [facility] [place] [facility] [id number], [place] [address]- 4494 Jul, [facility] [place] [facility] [address] [facility] [id number], [place] [address]- 9410 Jul, [facility] [address] [id number], [place] [id number] Jul, [facility] [place] [facility] [address] [facility] [id number], [place] [address]- 2992 Jul, [facility] [address] [id number], [place] [id number] Jun, [facility] [address] [id number], [place] [id number] Jun, [facility] [place] [facility] [address] [facility] [id number], [place] [address]- 1457 Jun, [facility] [place] [facility] [address] [facility] [id number], [place] [address]- 6884 Jun, [facility] [address] [id number], [place] [id number] Jun, [facility] [place] [facility] [address] [facility] [id number], [place] [address]- 0234 Jun, [facility] [address] [id number], [place] [id number] May, [facility] [place] [facility] [address] [id number] [place] [address]- 7666 May, [facility] [place] [facility] [address] [facility] [id number] [place] [address]- 2776 Apr, [facility] [place] [facility] [address] [facility] [id number] [place] [address]- 7006 Apr, [facility] [address] [facility] [id number], [place] [id number] Apr, [facility] [place] [facility] [address] [facility] [id number] [place] [address]- 6274 Apr, [facility] [place] [facility] [id number] [place] [address]- 9093 Apr, [facility] [address] [facility] [id number], [place] [id number] March, [facility] [place] [facility] [address] [facility] [id number] [place] [address]- 9806 March, [facility] [place] [facility] [address] [facility] [id number] [place] [address]- 1981 March, [facility] [address] [facility] [id number], [place] [id number] March, [facility] [place] [facility] [address] [id number], [place] [address]- 3346 March, [facility] [address] [facility] [id number], [place] [id number] March, [facility] [place] [facility] [address] [facility] [id number] [place] [address]- 2116 March, [facility] [address] [facility] [id number] [place] [id number] Feb, [facility] [place] [facility] [address] [facility] [id number] [place] [address]- 1826 Feb, [facility] [place] [facility] [address] [facility] [id number] [place] [address]- 3855 Jan, [facility] [address] [id number] [place] [id number] Jan, [facility] [place] [facility] [address] [facility] [id number] [place] [address]- 4946 Jan, [facility] [place] [facility] [address] [facility] [id number] [place] [address]- 7606 Jan, [facility] [address] [id number] [place] [address] Jan, [facility] [address] [id number] [place] [id number] Dec, [facility] [place] [facility] [address] [facility] [id number] [place] [address]- 8826 Dec, [facility] [place] [facility] [address] [facility] [id number] [place] [address]- 6686 Dec, [facility] [address] [facility] [id number] [place] [id number] Dec, [facility] [facility] [address] [facility] [id number], [place] [address] Dec, [facility] [address] [facility] [id number] [place] [id number] Dec, [facility] [facility] [address] [id number], [place] [address] Dec, [facility] [facility] [address] [id number], [place] [address] Dec, [facility] [address] [facility] [id number][place] [id number] Dec, [facility] [address] [facility] [id number][place] [id number] Nov, [facility] [address] [facility] [id number], [place] [address] Nov, [facility] [facility] [address] [id number], [place] [address] Nov, [facility] [address] [facility] [id number] [place] [id number] Nov, [facility] [address] [facility] [id number] [place] [id number] Oct, [facility] [address] [facility] [id number], [place] [address] Oct, [facility] [address] [facility] [id number] [place] [id number] Oct, [facility] [facility] [address] [facility] [id number], [place] [address] Oct, [facility] [facility] [address] [facility] [id number] [place] [address] Oct, [facility] [facility] [address] [facility] [id number], [place] [address] Oct, [facility] [address] [id number] [id number] Oct, [facility] [facility] [address] [facility] [id number], [place] [address] Oct, [facility] [facility] [address] [id number], [place] [address] Sep, [facility] [facility] [id number], [place] [address] Sep, [facility] [address] [facility] [id number][place] [id number] Sep, [facility] [facility] [address] [facility] [id number], [place] [address] Sep, [facility] [address] [facility] [id number], [place] [address] Sep, [facility] [address] [facility] [id number][place] [id number] Sep, [facility] [address] [facility] [id number][place] [id number] Aug, [facility] [facility] [address] [facility] [id number], [place] [address] Aug, [facility] [facility] [address] [facility] [id number], [place] [address] Aug, [facility] [address] [facility] [facility] [id number] [place] [id number] Aug, [facility] [place] [address] [facility] [id number] [place] [id number] Aug, [facility] [place] [facility] [address] [facility] [id number], [place] [address] Aug, [facility] [place] [facility] [address] [facility] [id number], [place] [address] Aug, [facility] [place] [facility] [address] [facility] [id number][place] [address] Aug, [facility] [place] [address] [facility] [id number][place] [id number] Jul, [facility] [place] [facility] [id number], [place] [address] Jul, [facility] [place] [facility] [address] [facility] [id number], [place] [address] Jul, [facility] [place] [address] [id number] [place] [id number] Jul, [facility] [place] [address] [facility] [id number][place] [id number] Jul, [facility] [place] [facility] [address] [facility] [id number], [place] [address] May, [facility] [place] [facility] [address] [facility] [id number], [place] [address] Apr, [facility] [place] [address] [id number] [place] [id number] Apr, [facility] [place] [address] [facility] [id number] [place] [id number] Apr, [facility] [place] [facility] [address] [facility] [id number], [place] [address] March, [facility] [place] [address] [facility] [id number] [place] [id number] March, [facility] [place] [address] [id number] [place] [address] March, [facility] [place] [address] [id number] [place] [id number] March, [facility] [place] [address] [id number] [place] [id number] March, [facility] [place] [address] [id number] [place] [id number] March, [facility] [address] [facility] [id number], [place] [address] March, [facility] [address] [facility] [id number], [place] [address] March, [facility] [address] [id number], [place] [address] Feb, [facility] [place] [address] [id number] [place] [id number] Feb, [facility] [place] [address] [id number][place] [id number] Feb, [facility] [place] [address] [id number] [place] [id number] Feb, [facility] [address], [place] [address] Feb, [facility] [place] [address] [id number] [place] [id number] Feb, [facility] [place] [address] [id number] [place] [id number] Jan, [facility] [place] [address] [id number] [place] [id number] Jan, [facility] [place] [address] [id number] [place] [address] Dec, [facility] [place] [address] [id number] [place] [address] Dec, [facility] [address] [id number], [place] [address] Dec, [facility] [place] [address] [id number] [place] [id number] Dec, [facility] [place] [address] [id number] [place] [address] Dec, [facility] [place] [address] [id number] [place] [address] Dec, [facility] [place] [address] [id number] [place] [id number] Dec, [facility] [address] [facility] [id number], [place] [address] Nov, [facility] [place] [address] [id number] [place] [address] Nov, [facility] [place] [address] [id number] [place] [id number] Nov, [facility] [place] [address] [id number] [place] [id number] Nov, [facility] [place] [address] [id number] [place] [id number] Nov, [facility] [address] [facility] [id number], [place] [address] [address] Oct, [facility] [place] [address] [id number] [place] [id number] Oct, [facility] [place] [address] [id number] [place] [id number] Oct, [facility] [place] [address] [id number] [place] [id number] Oct, [facility] [address] [facility] [id number], [place] [address] Oct, [facility] [address] [facility] [id number][place] [address] [address] Oct, [facility] [address] [facility] [id number], [place]25[place] [address] Oct, [facility] [place] [address] [id number] [place] [id number] Sep, [facility] [address], [place] [address]- 9549 Sep, [facility] [place] [facility] [address] [id number], [place] [address] Sep, [facility] [place] [address] [id number] [place] [id number] Sep, [facility] [place] [address] [id number] [place] [id number] Sep, [facility] [place] [address] [id number] [place] [id number] Sep, [facility] [place] [facility] [address] [facility] [id number], [place] [address]- [address] Sep, [facility] [place] [facility] [address] [facility] [id number], [place] [address]- 9267 Sep, [facility] [place] [facility] [address] [facility] [id number], [place] [address]- [address] Sep, [facility] [place] [id number][place] [id number] Aug, [facility] [place] [facility] [address] [facility] [id number], [place] [address]- 8378 Aug, [facility] [place] [address] [facility] [id number][place] [id number] Aug, [facility] [place] [facility] [address] [facility] [id number], [place] [address]- [address] Aug, [facility] [place] [facility] [address] [facility] [id number], [place] [address]- [address]128 Aug, [facility] [place] [address] [facility] [id number][place] 114082093 Aug, [facility] [place] [address] [id number], [place] [id number] Aug, [facility] [place] [facility] [address] [facility] [id number], [place] [address]- 9361 Aug, [facility] [place] [address] [id number][place] 9[address]2239[address] Aug, [facility] [place] [address] [id number], [place] [id number] Jul, [facility] [place] [address] [id number] [place] [id number] Jun, [facility] [place] [address] [id number] [place] [id number] May, [facility] [place] [address] [id number] [place] [id number] May, [facility] [place] [address] [id number] [place] [address]8517 May, [facility] [place] [address] [id number] [place] [id number] May, [facility] [place] [address] [id number] [place] [id number] May, [facility] [place] [address] [id number] [place] 849476062 May, [facility] [place] [address] [id number] [place] [id number] May, [facility] [place] [address] [id number] [place] 6686[place]333 Apr, [facility] [place] [address] [id number] [place] [id number] Apr, [facility] [place] [address] [id number] [place] [id number] Apr, [facility] [place] [address] [id number] [place] 55[place]3657 Apr, [facility] [place] [address] [id number] [place] [address] Apr, [facility] [place] [address] [id number] [place] Apr, [facility] [place] [address] [id number] [place] [id number] March, [facility] [place] [address] [id number] [place] [id number] March, [facility] [place] [address] [id number] [place] [address]016155 Feb, [facility] [place] [address] [id number] [place] [address]10[address] Feb, [facility] [place] [address] [id number] [place] [address]3042 Feb, [facility] [place] [address] [id number] [place] [id number] Jan, [facility] [place] [address] [id number] [place] [address]90744[address] Jan, [facility] [place] [address] [id number] [place] 11648[address]99 Jan, [facility] [place] [address] [id number] [place] [id number] Jan, [facility] [place] [address] [id number] [place] [address] Dec, [facility] [place] [facility] [address] [facility] [id number], [place] [address]- 4878 Dec, [facility] [place] [address] [id number] [place] [address]44[place]4320 Dec, [facility] [place] [address] [id number] [place] [id number] Nov, [facility] [place] [address] [id number] [place] 976012743 Nov, [facility] [place] [address] [id number] [place] [id number] Nov, [facility] [place] [facility] [id number], [place] [address]- 2487 Oct, [facility] [place] [facility] [id number], [place] [address]- 8951 Oct, [facility] [place] [facility] [address] [id number], [place] [address]80- 6223 Oct, [facility] [place] [facility] [id number], [place] [address]- 1174 Aug, [facility] [place] [facility] [id number], [place]- 1562 Aug, [facility] [place] [facility] [id number], [place] [address]- 5607 Aug, [facility] [place] [facility] [address] [id number] [place] [address]- [address]99 March, [facility] [address] [id number] [place] [address]- 4486 Oct, [facility] [address] [id number] [place] [address]- 2540 Oct, [facility] [address] [id number] [place] [address]- 6242 Sep, [facility] [address] [id number] [place] [address]- 7686 Sep, [facility] [id number] [place] [address], [place] [address]- 3390 Sep, [facility] [address] [id number] [place] [address]- 0762 Aug, [facility] [address] [id number] [place] [address], [place] [address]- 3566 Aug, [facility] [address] [id number] [place] [address]- 3639 Jun, [facility] [address] [id number] [place] [address]- 2886 May, [facility] [address] [id number] [place] [address]- 6197 Jan, [facility] [address] [id number] [place] [address]- 1226 Nov, [facility] [address] [id number] [place] [address]- 4551 Oct, [facility] [place] [facility] [address] [id number] [place] [address]- 4474 Sep, [facility] [place] [facility] [address] [id number] [place] [address]- 7588 Sep, [facility] [address] [id number] [place] [address]- 4027 Sep, [facility] [address] [facility] [id number], [place] [address]- 1031 Sep, [facility] [address] [id number], [place] [address]- 3198 Sep, [facility] [address] [facility] [id number], [place] [address]- 2691 Aug, [facility] [address] [id number]- 3368 Aug, [facility] [address] [facility] [id number], [place] [address]- [address] Jul, [facility] [address] [id number], [place] [address]- 1190 Jun, IMMUNIZATIONS No Known Immunizations SOCIAL HISTORY Never Assessed REASON FOR VISIT DM ED Scheduled PLAN OF CARE VITAL SIGNS MEDICATIONS Unknown [...] 08/2016 Hospitalization History chest pain ED visit [facility], pt scheduled for heart cath on May Hospitalization History [place] 2012 Hospitalization History Chest pain-[facility] 12/22/16
--- OUTSIDE RECORDS SUMMARY | 2018-11-01 18:38 | XMS REPORT ---
Author Author ALEXEI BEJARANO Organization [facility] Address [address] [place] [address] Care Team Providers Care Operations Professional Name Role Phone ALEXEI BEJARANO Unavailable PROBLEMS Type Condition ICD9-CM Code EJK17-ZD Code Onset Dates Condition Status SNOMED Code Problem Other seasonal allergic rhinitis J30.2 Active 348291825 Problem Polyneuropathy associated with underlying disease G63 Active 173276075 Problem Other chronic pain G89.29 Active 86700972 Problem Vitamin D deficiency E55.9 Active 69199741 Problem Recurrent major depressive disorder, in partial remission F33.41 Active 08060942 Problem 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 card tender 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 Active 167372301 Problem Syncope, unspecified syncope type R55 Active 219150573 Problem Stage 2 chronic kidney disease N18.2 Active 088387753 Problem Type 2 diabetes mellitus with diabetic polyneuropathy E11.42 Active 98463987 Problem Episodic mood disorder F39 Active 53129257 Problem Dyslipidemia E78.5 Active 908784962 Problem Serum creatinine raised R79.89 Active 707681620 Problem Lumbago with sciatica, left side M54.42 Active 289506359 Problem Generalized anxiety disorder F41.1 Active 21064022 Problem Lumbago with sciatica, right side M54.41 Active 371511578 ALLERGIES No Information ENCOUNTERS Encounter Location Date Diagnosis [facility] [address] [facility] [id number] [address] Nov, [facility] [address], [place] [address] Sep, [facility] [address] [id number] [address] Sep, [facility] 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 [place] [id number] [place] [address] 68591- 8304 Sep, Acute maxillary sinusitis, recurrence not specified J01.00 and Bronchiolitis J21.9 [place] [id number] [place] [address] 52781- 1334 Jul, [place] [id number] [place] [address] 15452- 2283 Jun, Type 2 diabetes mellitus with diabetic polyneuropathy E11.42 ; Open wound T14.8XXA ; 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 card tender 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 ; Stage 2 chronic kidney disease N18.2 and Episodic mood disorder F39 [address] [place] [id number] [place] [address] 39195- 6184 May, [place] [id number] [place] [address] 57148- 5098 March, [address] [place] [id number] [place] [address] 44000- 4121 March, Type 2 diabetes mellitus with diabetic [...] H60.502 and Non-adherence to medical treatment Z91.[address] [id number] [id number] 12 Feb, 2018 Dental examination Z01.[address] [place] [address] 43149- 2163 Feb, Labile hypertension R09.89 ; Syncope, unspecified syncope type R55 ; Chest pain, unspecified type R07.9 and Dyslipidemia E78.5 [place] [id number] [place] [address] 59662- 1010 Feb, [place] [id number] [place] [address] 03336- 4942 Jan, [address] [id number] [place] [id number] Jan, Dental examination Z01.20 [place] [id number] [place] [address] [address] Jan, Acute non-recurrent maxillary sinusitis J01.00 and Dyslipidemia E78.[address] [place] [address] [id number] Jan, Dental examination Z01.20 and Dental caries K02.[address] [id number] [place] [id number] Jan, [address] [place] [address] [id number] Dec, Dental examination Z01.20 [facility] [id number] [place] [address] 52569 -4397 Dec, Seasonal allergic rhinitis, unspecified trigger J30.2 [place] [id number] [place] [address] 50898- 8079 Nov, [place] [address] [address]30- 5491 Nov, Type 2 diabetes mellitus with diabetic polyneuropathy E11.42 ; Dyslipidemia E78.5 ; Lumbago with sciatica, right side M54.41 ; Lumbago with sciatica, left side M54.42 ; 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 card tender 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 ; Polyneuropathy associated with underlying disease G63 ; Stage 2 chronic kidney disease N18.2 and Syncope, unspecified syncope type R55 [place] [id number] [place] [address] 58622- 5923 Oct, Type 2 diabetes mellitus with diabetic polyneuropathy E11.42 ; Acute otitis externa of left ear, unspecified type H60.502 ; Overweight (BMI 25.0-29.9) E66.3 ; Dyslipidemia E78.5 and Polyneuropathy associated with underlying disease G63 [place] [address] [id number] [address] Sep, [facility] [id number] [place] [address] 89819- 5603 Aug, Abnormal mammogram R92.8 [facility] [id number] [place] [address] 60472- 4744 Aug, Type 2 diabetes mellitus with diabetic polyneuropathy E11.42 [place] [id number] [place] [address] 56435- 4774 Aug, [place] [id number] [place] [address] 88991- 9603 Aug, Type 2 diabetes mellitus with diabetic polyneuropathy E11.42 ; Syncope, unspecified syncope type R55 ; Other chronic pain G89.29 and Encounter for immunization Z23 [place] [id number] [place] [address] 81160- 7975 Aug, Type 2 diabetes mellitus with diabetic polyneuropathy E11.42 [place] [id number] [place] [address] 62790- 5320 Jul, Type 2 diabetes mellitus with diabetic polyneuropathy E11.42 and Serum creatinine raised R79.89 [place] [id number] [place] [address] 55178- 9674 Jul, Type 2 diabetes mellitus with diabetic polyneuropathy E11.42 and Serum creatinine raised R79.89 [place] [id number] [place] [address] 42994- 9573 May, [place] [id number] [place] [address] 47195- 2817 May, [place] [id number] [place] [address] 97524- 1685 May, Head injury, initial encounter S09.90XA ; Facial pain R51 ; Neck pain M54.2 and Fall, initial encounter W19.XXXA [place] [address] [id number] [address] 9036 May, Type 2 diabetes mellitus with diabetic polyneuropathy E11.42 [place] [address] [address]- 2809 May, [place] [address], [place] [address]- 1331 May, Type 2 diabetes mellitus with diabetic polyneuropathy E11.42 [place] [id number] [place] [address] 11939- 0381 May, Dyslipidemia E78.5 ; 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 card tender 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 ; Type 2 diabetes mellitus with diabetic polyneuropathy E11.42 ; Generalized anxiety disorder F41.1 and Other seasonal allergic rhinitis J30.2 [place] [address], [place] [address]- 0578 Apr, Type 2 diabetes mellitus with diabetic polyneuropathy E11.42 [place] [address], [place] [address]- 5182 March, [place] [address], [place] [address]- 3271 March, Abnormal mammogram R92.8 [place] [address] [address]- 8842 Feb, Abnormal mammogram R92.8 [place] [address], [place] [address]- 4524 Feb, Diabetes type 2, uncontrolled E11.65 [place] [address], [place] [address]- 5898 Feb, Screening for breast cancer Z12.39 [place] [address], [place] [address]- 5377 Jan, Screening for breast cancer Z12.39 [place] [address], [place] [address]- 3458 Jan, Type 2 diabetes mellitus with diabetic polyneuropathy E11.42 ; 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 card tender 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 ; Other viral agents as the cause of diseases classified elsewhere B97.89 and Acute upper respiratory infection, unspecified J06.9 [place] [id number] [place] [address] 15524- 7184 Jan, [place] [id number] [place] [address] 96051- 5885 Dec, Diabetes type 2, uncontrolled E11.65 ; Dyslipidemia E78.5 ; Generalized anxiety disorder F41.1 ; Depression, unspecified depression type F32.9 ; 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 card tender 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 and Polyneuropathy associated with underlying disease G63 [place] [id number] [place] [address] 15004- 2726 16 Dec, 2016 [place] [id number] [place] [address] 87238- 2661 Dec, [place] [id number] [place] [address] 22424- 7993 Dec, [place] [id number] [place] [address] 16449- 6954 Dec, [place] [id number] [place] [address] 88921- 2678 Oct, Well woman exam Z01.419 ; Screening for breast cancer Z12.39 ; 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 card tender 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 ; Type 2 diabetes mellitus without complications E11.9 and Encounter for immunization Z23 [place] [id number] [place] [address] 00576- 9433 Sep, [place] [id number] [place] [address] 58949- 9685 Sep, Diabetes type 2, uncontrolled E11.65 ; Dyslipidemia E78.5 and Depression, unspecified depression type F32.9 [place] [id number] [place] [address] 03209- 5459 Aug, Diabetes type 2, uncontrolled E11.65 ; Encounter for immunization Z23 ; Nasal congestion R09.81 and Ear pressure, bilateral H93.8X3 [place] [address] 71489- 7494 Jul, Eustachian tube dysfunction, left H69.82 [place] [id number] [place] [address] 19003- 2595 Jun, [place] [address] 02298- 3282 Jun, Hospital discharge follow-up Z09 ; Syncope, unspecified syncope type R55 and Acute suppurative otitis media of left ear without spontaneous rupture of tympanic membrane, recurrence not specified H66.002 [place] [address] 62728- 9881 May, [place] [address] 22005- 6511 May, [place] [address] 59080- 5759 May, [place] [address] 16860- 0256 May, Diabetes type 2, uncontrolled E11.65 ; [...] disturbance G47.9 and Generalized anxiety disorder F41.1 [place] [id number] [place] [address] 42661- 2004 March, [place] [id number] [place] [address] [id number] March, Syncope, unspecified syncope type R55 and Depression, unspecified depression type F32.9 [facility] [id number] [place] [address] [id number] March, Orthostatic hypotension I95.1 [facility] [id number] [place] [address] March, [facility] [address] [facility] [id number], [place] [address]- 6732 March, [facility] [address] [id number] [place] [id number] Feb, [facility] [address] [id number] [place] [id number] Feb, Dental examination Z01.20 [facility] [address] [id number] [place] [address] Jan, [facility] [address] [id number] [place] [address] Jan, [facility] [id number] [place] [address] Dec, Diabetes type 2, uncontrolled E11.65 [facility] [address] [id number] [place] [id number] Nov, [facility] [address] [facility] [address] [id number] [place] [address] Nov, Encounter for dental examination Z01.20 [facility] [address] [id number] [place] [id number] Nov, Dental examination Z01.20 [facility] [address] [facility] [id number] [place] [address] Sep, Diabetes type 2, uncontrolled E11.65 [facility] [address] [id number] [place] [id number] Sep, Encounter for dental examination Z01.20 and Dental caries, unspecified K02.9 [facility] [id number] [place] [address] Sep, Bipolar 2 disorder F31.81 [facility] [address] [id number] [place] [address] Aug, [facility] [id number] [place] [address] Aug, Follow up V67.[address] [facility] [address], [place] [address]- 4582 Jul, Bipolar disorder, unspecified 296.80 [facility] [id number] [place] [address] [id number] Jul, Thyroid enlarged 240.9 and Bipolar disorder, unspecified 296.80 [facility] [id number] [place] [address] [id number] Jun, Diabetes mellitus type 2, uncontrolled 250.02 ; Bipolar disorder, unspecified 296.80 and Rash 782.1 [facility] [id number] [place] [address] [id number] Jun, [facility] [id number] [place] [address] [id number] May, Urinary tract infection 599.0 [facility] [id number] [place] [address] [id number] May, Urinary tract infection 599.0 [facility] [id number] [place] [address] [id number] May, [facility] [id number] [place] [address] [id number] May, Diabetes mellitus type 2, uncontrolled 250.02 and Pica in adults 307.52 [facility] [id number] [place] [address] [id number] Apr, Follow up V67.9 and Diabetes mellitus type 2, uncontrolled 250.02 [facility] [id number] [place] [id number] Apr, [facility] [address] [id number] [address]- 9736 Apr, [facility] [id number] [place] [address] [id number] Apr, Hyperlipidemia 272.4 [facility] [id number] [place] [address] [id number] March, Diabetes type 2, uncontrolled 250.02 [facility] [id number] [place] [address] [id number] March, Diabetes mellitus type 2, uncontrolled 250.02 [facility] [address] [id number] [place] [id number] March, Diabetes type 2, uncontrolled 250.02 [facility] [address] [id number] [place] [id number] March, [facility] [address] [id number] [place] [id number] March, [facility] [id number] [place] [id number] Feb, [facility] [place] [facility] [id number] [place] [address] 63332- 2546 Feb, [facility] [facility] [id number] [place] [address] 90815- 2546 Feb, [facility] [id number] [place] [address] Jan, [facility] [place] [facility] [id number] [place] [address] 38764- 2546 Jan, [facility] [place] [facility] [address], [place] [address]- 2546 Jan, [facility] [id number] [place] [id number] Jan, [facility] [facility] [address], [place] [address]- 8196 Jan, [facility] [place] [facility] [address], [place] [address]- 2546 Jan, [facility] [address] [id number] [place] [id number] Jan, [facility] [facility] [address], [place] [address]- 2546 Jan, [facility] [place] [facility] [address], [place] [address]- 2546 Dec, [facility] [address] [id number] [place] [id number] Dec, [facility] [facility] [address] [facility] [id number] [address]- 7618 Dec, 2014 [facility] [address] [facility] [id number] [place] [id number] Dec, 2014 [facility] [facility] [address] [facility] [id number], [place] [address]- 5264 Dec, 2014 [facility] [address] [facility] [id number] [place] [id number] Dec, 2014 [facility] [facility] [address] [facility] [id number] [address]- 7343 Dec, 2014 [facility] [place] [facility] [address], [place] [address]- 7549 Dec, 2014 [facility] [id number] [place] [id number] Dec, [facility] [id number] [place] 6[address] Dec, [facility] [place] [facility] [address] [address]- 8934 Dec, [facility] [place] [facility] [address]- 7211 Nov, [facility] [place] [facility] [address]- 7295 Oct, [facility] [place] [facility] [address], [place] [address]- 8496 Oct, [facility] [address] [id number] [place] [id number] Sep, [facility] [facility] [address] [facility] [id number] [address]- 9639 Sep, [facility] [address] [facility] [id number] [place] 918884235 Sep, [facility] [place] [facility] [address] [id number] [address]- 2219 Sep, [facility] [id number] [place] [id number] Aug, [facility] [place] [facility] [address] [facility] [id number] [place] [address]- 5496 Aug, [facility] [address] [facility] [id number] [place] [id number] Aug, [facility] [place] [facility] [address] [facility] [id number] [place] [address]- 8207 Aug, [facility] [place] [facility] [address] [facility] [id number] [place] [address]- 6902 Jul, [facility] [place] [facility] [address] [facility] [id number] [place] [address]- 0529 Jul, [facility] [address] [facility] [id number] [place] 7847[address]201 Jul, [facility] [place] [facility] [address] [id number] [place] [address]- 6496 Jul, [facility] [address] [facility] [id number] [place] 648298430 Jun, [facility] [address] [facility] [id number] [place] 153978040 Jun, [facility] [place] [facility] [address] [place] [address]- 1358 Jun, [facility] [place] [facility] [address] [facility] [id number] [address]- 2138 Jun, [facility] [address] [facility] [id number] [place] [id number] Jun, [facility] [place] [facility] [address] [facility] [id number] [address]- 2087 Jun, [facility] [address] [facility] [id number] [place] 938924557 May, [facility] [place] [facility] [address] [facility] [id number] [place] [address]- 8052 May, [facility] [place] [facility] [address] [facility] [id number] [address]- 5850 Apr, [facility] [place] [facility] [address] [id number] [place] [address]- 3696 Apr, [facility] [address] [facility] [id number] [place] [id number] Apr, [facility] [place] [facility] [address] [facility] [id number] [place] [address]- 9056 Apr, [facility] [place] [facility] [address] [facility] [id number] [place] [address]- 0980 Apr, [facility] [address] [facility] [id number] [place] 47526[address] March, [facility] [place] [facility] [address] [facility] [id number] [place] [address]- 8130 March, [facility] [place] [facility] [address] [id number] [place] [address]- 2753 March, [facility] [address] [id number] [place] [id number] March, [facility] [place] [facility] [address] [id number] [address]- 6203 March, [facility] [address] [facility] [id number] [place] [id number] March, [facility] [place] [facility] [address] [id number] [address]- 5768 March, [facility] [address] [facility] [id number] [place] 699058620 Feb, [facility] [place] [facility] [address] [facility] [id number], [place] [address]- 8545 Feb, [facility] [place] [facility] [address] [facility] [id number] [address]- 8672 Jan, [facility] [address] [facility] [id number] [place] [id number] Jan, [facility] [place] [facility] [address] [facility] [id number] [address]- 9932 Jan, [facility] [place] [facility] [address] [facility] [id number] [address]- 2548 Jan, [facility] [address] [id number] [place] [id number] Jan, [facility] [address] [id number] [place] [id number] Dec, [facility] [facility] [address] [facility] [id number], [place] [address] Dec, [facility] [place] [facility] [address] [facility] [id number], [place] [address] Dec, [facility] [address] [id number] [place] [id number] Dec, [facility] [place] [facility] [address] [facility] [id number], [place] [address] Dec, [facility] [address] [id number] [place] [id number] Dec, [facility] [place] [facility] [id number] [address] Dec, [facility] [place] [facility] [address] [facility] [id number] [address] Dec, [facility] [address] [id number] [place] [id number] Dec, [facility] [address] [id number] [place] [id number] Nov, [facility] [place] [facility] [id number], [place] [address] Nov, [facility] [place] [facility] [address] [facility] [id number] [address] Nov, [facility] [address] [id number] [place] [id number] Nov, [facility] [address] [id number] [place] [id number] Oct, [facility] [place] [facility] [address] [facility] [id number] [address] Oct, [facility] [address] [id number] [place] [id number] Oct, [facility] [address] [id number] [place] [address] Oct, [facility] [place] [facility] [address] [facility] [id number], [place] [address] Oct, [facility] [address] [facility] [id number], [place] [address] Oct, [facility] [address] [facility] [id number] [place] [id number] Oct, [facility] [place] [facility] [address] [facility] [id number] [place] [address] Oct, [facility] [place] [facility] [address] [facility] [id number] [address] Sep, [facility] [id number], [place] [address] Sep, [facility] [address] [facility] [id number] [place] [id number] Sep, [facility] [place] [facility] [address] [facility] [id number], [place] [address] Sep, [facility] [place] [facility] [address] [facility] [id number] [address] Sep, [facility] [address] [facility] [id number] [place] [id number] Sep, [facility] [address] [facility] [id number] [place] [id number] Aug, [facility] [place] [facility] [address] [facility] [id number], [place] [address] Aug, [facility] [place] [facility] [address] [facility] [id number], [place] [address] Aug, [facility] [address] [facility] [id number] [place] [id number] Aug, [facility] [address] [facility] [facility] [id number] [place] [id number] Aug, [facility] [place] [facility] [address] [facility] [id number] [address] Aug, [facility] [address] [facility] [id number] [address] Aug, [facility] [place] [facility] [address] [facility] [id number] [address] Aug, [facility] [place] [address] [id number] [place] [id number] Jul, [facility] [address] [facility] [id number] [place] [address] Jul, [facility] [place] [facility] [address] [facility] [id number] [place] [address] Jul, [facility] [place] [address] [id number] [place] [id number] Jul, [facility] [place] [address] [id number] [place] [id number] Jul, [facility] [address] [id number] [address] May, [facility] [address] [id number], [place] [address] Apr, [facility] [place] [address] [id number] [place] [id number] Apr, [facility] [place] [address] [id number] [place] [id number] Apr, [facility] [address] [facility] [id number], [place] [address] March, [facility] [place] [address] [id number] [place] [id number] March, [facility] [place] [address] [id number] [place] [id number] March, [facility] [place] [address] [id number] [place] [id number] March, [facility] [place] [address] [id number] [place] [id number] March, [facility] [place] [address] [id number] [place] [id number] March, [facility] [address] [facility] [id number] [address] March, [facility] [address] [facility] [id number] [address] March, [facility] [id number], [place] [address] Feb, [facility] [place] [address] [id number] [place] [id number] Feb, [facility] [place] [address] [id number] [place] [id number] Feb, [facility] [place] [address] [id number] [place] [id number] Feb, [facility] [id number] [address] Feb, [facility] [place] [address] [id number] [place] [id number] Feb, [facility] [place] [address] [id number] [place] [id number] Jan, [facility] [place] [address] [id number] [place] [id number] Jan, [facility] [place] [address] [id number] [place] [id number] Dec, [facility] [place] [address] [id number] [place] [id number] Dec, [facility] [id number] [address] Dec, [facility] [place] [address] [id number] [place] [id number] Dec, [facility] [place] [address] [id number] [place] [id number] Dec, [facility] [place] [address] [id number] [place] [id number] Dec, [facility] [place] [address] [id number] [place] [address] [place] [id number] Dec, [facility] [place] [facility] [address] [facility] [id number] [address] Nov, [facility] [place] [address] [id number] [place] [id number] Nov, [facility] [place] [address] [id number] [place] [id number] Nov, [facility] [place] [address] [id number] [place] [id number] Nov, [facility] [place] [address] [id number] [place] [id number] Nov, [facility] [place] [facility] [address] [facility] [id number] [address] Oct, [facility] [place] [address] [id number] [place] [id number] Oct, [facility] [place] [address] [id number] [place] [id number] Oct, [facility] [place] [address] [id number] [place] [id number] Oct, [facility] [place] [facility] [address] [facility] [id number], [place] 559172- [address] Oct, [facility] [place] [facility] [address] [facility] [id number] [address] Oct, [facility] [place] [facility] [address] [facility] [id number] [address] Oct, [facility] [place] [address] [id number] [place] [id number] Sep, [facility] [place] [facility] [address] [facility] [id number][place] [address] Sep, [facility] [place] [facility] [address] [facility] [id number], [place] [address] Sep, [facility] [place] [address] [id number] [place] [id number] Sep, [facility] [place] [address] [id number] [place] [id number] Sep, [facility] [place] [address] [id number] [place] [id number] Sep, [facility] [place] [facility] [address] [facility] [id number][place] [address] Sep, [facility] [place] [facility] [address] [facility] [id number] [address]- [address] Sep, [facility] [place] [facility] [address] [facility] [id number] [address] Sep, [facility] [place] [address] [id number] [place] [id number] Aug, [facility] [place] [facility] [address] [facility] [id number] [address] Aug, [facility] [place] [address] [id number] [place] [id number] Aug, [facility] [address] [facility] [id number] [address]- [address] Aug, [facility] [place] [facility] [address] [facility] [id number] [address]- [address] Aug, [facility] [place] [address] [id number] [place] [id number] Aug, [facility] [place] [address] [id number] [place] [id number] Aug, [facility] [place] [facility] [address] [facility] [id number] [address] Aug, [facility] [place] [address] [id number] [place] [id number] Aug, [facility] [place] [address] [id number] [place] 688399036 Jul, [facility] [place] [address] [id number] [place] [id number] Jun, [facility] [place] [address] [id number] [place] [id number] May, [facility] [place] [address] [id number] [place] [id number] May, [facility] [place] [address] [id number] [place] [id number] May, [facility] [place] [address] [id number] [place] [id number] May, [facility] [place] [address] [id number] [place] [id number] May, [facility] [place] [address] [id number] [place] [id number] May, [facility] [place] [address] [id number] [place] [id number] May, [facility] [place] [address] [id number] [place] [id number] Apr, [facility] [place] [address] [id number] [place] 658356955 Apr, [facility] [place] [address] [id number] [place] [id number] Apr, [facility] [place] [address] [id number] [place] [id number] Apr, [facility] [place] [address] [id number] [place] [id number] Apr, [facility] [place] [address] [id number] [place] [id number] Apr, [facility] [place] [address] [id number] [place] [id number] March, [facility] [place] [address] [id number] [place] [id number] March, [facility] [place] [address] [id number] [place] [id number] Feb, [facility] [place] [address] [id number] [place] [id number] Feb, [facility] [place] [address] [id number] [place] [id number] Feb, [facility] [place] [address] [id number] [place] [id number] Jan, [facility] [place] [address] [id number] [place] [id number] Jan, [facility] [place] [address] [id number] [place] [id number] 15 Jan, 2012 [facility] [place] [address] [id number] [place] [id number] Jan, [facility] [place] [address] [id number] [place] [id number] Dec, [facility] [address] [facility] [id number] [place] [address]- [address]46 Dec, [facility] [place] [address] [id number] [place] [id number] Dec, [facility] [place] [address] [id number] [place] [id number] Nov, [facility] [place] [address] [id number] [place] [id number] Nov, [facility] [place] [address] [id number] [place] [id number] Nov, [facility] [id number], [place] [address]- [address] Oct, [facility] [place] [facility] [id number], [place] [address]- [address] Oct, [facility] [place] [facility] [address] [id number], [place] [address]- [address]44 Oct, [facility] [place] [facility] [id number], [place] [address]- [address] Aug, [facility] [place] [facility] [id number] [address]- [address] Aug, [facility] [place] [facility] [address] [id number] [address]- [address] Aug, [facility] [place] [facility] [id number], [place] [address]- [address] March, [facility] [place] [facility] [address] [facility] [id number][place] [address]- 1836 Oct, [facility] [place] [facility] [id number], [place] [address]- [address] Oct, [facility] [place] [facility] [address] [id number] [place] [address]- [address] 29 Sep, 2010 [facility] [place] [facility] [address] [id number] [place] [address]- 9189 Sep, [facility] [place] [facility] [address] [id number] [place] [address]- 1095 Sep, [facility] [place] [facility] [address] [id number] [place] [address]- 6944 Aug, [facility] [place] [facility] [address] [id number] [place] [address]- 2061 Aug, [facility] [place] [facility] [address] [id number] [place] [address]- 8642 Jun, [facility] [place] [facility] [address] [id number] [place] [address]- 6328 May, [facility] [place] [facility] [address] [id number] [address]- [address] Jan, [facility] [place] [facility] [address] [id number] [place] [address]- 3958 Nov, [facility] [place] [facility] [address] [id number] [address]- [address]35 Oct, [facility] [place] [facility] [address] [id number], [place] [address]- [address] Sep, [facility] [place] [facility] [address] [id number] [address]- 9526 Sep, [facility] [place] [facility] [address] [id number], [place] [address]- [address] Sep, [facility] [place] [facility] [address] [id number], [place] [address]- 3206 Sep, [facility] [place] [facility] [address] [id number] [address]- 7452 Sep, [facility] [place] [facility] [address] [id number], [place] [address]- [address]46 Aug, [facility] [address] [facility] [id number], [place] [address]- [address] Aug, [facility] [address] [facility] [id number] [address]- [address] Jul, [facility] [address] [facility] [id number], [place] [address]- [address] Jun, IMMUNIZATIONS No Known Immunizations SOCIAL HISTORY Never Assessed REASON FOR VISIT refill request PLAN OF CARE VITAL SIGNS MEDICATIONS Medication Instructions Dosage Frequency Start Date End Date Duration Status Levemir 100 UNIT/ML Subcutaneous 2 times a day inject 50U in am and 50U at HS 12h Dec, Active RESULTS No Results PROCEDURES No Known [...] 08/2016 Hospitalization History chest pain ED visit [facility], pt scheduled for heart cath on May Hospitalization History [place] 2012 Hospitalization History Chest pain-[facility] 12/22/16
--- OUTSIDE RECORDS SUMMARY | 2018-11-01 18:39 | XMS REPORT ---
Author Author OSWALDO ALTAMIRANO Organization [facility] Address [address] [place] [address] Care Team Providers Care Gsa Coordinator Name Role Phone OSWALDO ALTAMIRANO Unavailable PROBLEMS Type Condition ICD9-CM Code TMS21-KP Code Onset Dates Condition Status SNOMED Code Problem Other seasonal allergic rhinitis J30.2 Active 960845185 Problem Polyneuropathy associated with underlying disease G63 Active 463467570 Problem Other chronic pain G89.29 Active 64472813 Problem Vitamin D deficiency E55.9 Active 65103657 Problem Recurrent major depressive disorder, in partial remission F33.41 Active 61580434 Problem 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 Active 363383245 Problem Syncope, unspecified syncope type R55 Active 272934480 Problem Stage 2 chronic kidney disease N18.2 Active 275059627 Problem Type 2 diabetes mellitus with diabetic polyneuropathy E11.42 Active 33502110 Problem Episodic mood disorder F39 Active 85674488 Problem Dyslipidemia E78.5 Active 147402445 Problem Serum creatinine raised R79.89 Active 065523282 Problem Lumbago with sciatica, left side M54.42 Active 530490422 Problem Generalized anxiety disorder F41.1 Active 89561503 Problem Lumbago with sciatica, right side M54.41 Active 055839405 ALLERGIES Substance Reaction Event Type Date Status MetFORMIN HCl ER nausea and vomiting Drug Allergy Jan, Active Codeine Phosphate dizziness Drug Allergy Jan, Active metal/crown/watches rash Non Drug Allergy Jan, Active ENCOUNTERS Encounter Location Date Diagnosis [facility] [id number] [address] Jun, [facility] [id number] [address] May, [facility] [id number] [address] March, [place] [address], [place] [address] March, Type 2 diabetes mellitus with diabetic [...] H60.502 and Non-adherence to medical treatment Z91.19 [place] [address] [facility] [address] [id number] [address] Feb, Dental examination Z01.20 [place] [id number] [place] [address] 81482- 7559 Feb, Labile hypertension R09.89 ; Syncope, unspecified syncope type R55 ; Chest pain, unspecified type R07.9 and Dyslipidemia E78.5 [place] [id number] [place] [address] 67088- 5224 Feb, [place] [id number] [place] [address] 00785- 9635 Jan, [facility] [place] [address] [facility] [address] [id number][place] [id number] Jan, Dental examination Z01.20 [place] [id number] [place] [address] 15574- 7828 Jan, Acute non-recurrent maxillary sinusitis J01.00 and Dyslipidemia E78.5 [facility] [address] [facility] [address] [id number] [address] Jan, Dental examination Z01.20 and Dental caries K02.9 [facility] [address] [id number] [id number] Jan, [facility] [address] [id number][place] [id number] Dec, Dental examination Z01.20 [facility] [id number] [place] [address] 27920 -2407 Dec, Seasonal allergic rhinitis, unspecified trigger J30.2 [place] [id number] [place] [address] 16207- 8899 Nov, [place] [address] [address]- [address]887 Nov, Type 2 diabetes mellitus with diabetic polyneuropathy E11.42 ; Dyslipidemia E78.5 ; Lumbago with sciatica, right side M54.41 ; Lumbago with sciatica, left side M54.42 ; 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 ; Polyneuropathy associated with underlying disease G63 ; Stage 2 chronic kidney disease N18.2 and Syncope, unspecified syncope type R55 [place] [address] [address]- [address] 14 Oct, 2017 Type 2 diabetes mellitus with diabetic polyneuropathy E11.42 ; Acute otitis externa of left ear, unspecified type H60.502 ; Overweight (BMI 25.0-29.9) E66.3 ; Dyslipidemia E78.5 and Polyneuropathy associated with underlying disease G63 [place] [id number] [place] [address] 94014- 4075 Sep, [place] [address] [address]- 1755 Aug, Abnormal mammogram R92.8 [place] [address] 61973- 4631 Aug, Type 2 diabetes mellitus with diabetic polyneuropathy E11.42 [place] [address] 9[address]64- 4709 Aug, [place] [address] 8[address]30- 4793 Aug, Type 2 diabetes mellitus with diabetic polyneuropathy E11.42 ; Syncope, unspecified syncope type R55 ; Other chronic pain G89.29 and Encounter for immunization Z23 [place] [id number] [place] [address] 39712- 4918 Aug, Type 2 diabetes mellitus with diabetic polyneuropathy E11.42 [place] [id number] [place] [address] 05195- 5942 Jul, Type 2 diabetes mellitus with diabetic polyneuropathy E11.42 and Serum creatinine raised R79.89 [place] [address] 35168- 7725 Jul, Type 2 diabetes mellitus with diabetic polyneuropathy E11.42 and Serum creatinine raised R79.89 [place] [address] 42147- 9026 May, [place] [address] 9[address]50- 2948 May, [place] [address] 23072- 3061 May, Head injury, initial encounter S09.90XA ; Facial pain R51 ; Neck pain M54.2 and Fall, initial encounter W19.XXXA [place] [address] 9[address]54- 6790 May, Type 2 diabetes mellitus with diabetic polyneuropathy E11.42 [place] [id number] [place] [address] 40388- 3598 May, [place] [address] 15764- 8519 May, Type 2 diabetes mellitus with diabetic polyneuropathy E11.42 [place] [id number] [place] [address] 96884- 2978 May, Dyslipidemia E78.5 ; 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 ; Type 2 diabetes mellitus with diabetic polyneuropathy E11.42 ; Generalized anxiety disorder F41.1 and Other seasonal allergic rhinitis J30.2 [place] [address] 90592- 0705 Apr, Type 2 diabetes mellitus with diabetic polyneuropathy E11.42 [place] [address], [place] [address] 96[address] March, [place] [address], [place] [address] March, Abnormal mammogram R92.8 [place] [address], [place] [address] 1449 Feb, Abnormal mammogram R92.8 [place] [address], [place] [address] Feb, Diabetes type 2, uncontrolled E11.65 [place] [address] [place] [address] 20154- 9742 Feb, Screening for breast cancer Z12.39 [place] [address] [place] [address] 24291- 0932 Jan, Screening for breast cancer Z12.39 [place] [address], [place] [address] 66[address] Jan, Type 2 diabetes mellitus with diabetic polyneuropathy E11.42 ; 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 ; Other viral agents as the cause of diseases classified elsewhere B97.89 and Acute upper respiratory infection, unspecified J06.9 [place] [id number] [address] 70[address] Jan, [place] [address], [place] [address] Dec, Diabetes type 2, uncontrolled E11.65 ; Dyslipidemia E78.5 ; Generalized anxiety disorder F41.1 ; Depression, unspecified depression type F32.9 ; long-term 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 and Polyneuropathy associated with underlying disease G63 [place] [id number], [place] [address]- 9925 Dec, [place] [id number] [place] [address] 28097- 9209 14 Dec, 2016 [place] [id number] [place] [address] 78610- 1632 03 Dec, 2016 [place] [id number] [place] [address] 82095- 1822 02 Dec, 2016 [place] [id number] [place] [address] 97177- 3175 Oct, Well woman exam Z01.419 ; Screening for breast cancer Z12.39 ; 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 ; Type 2 diabetes mellitus without complications E11.9 and Encounter for immunization Z23 [address] [address]38- 3166 Sep, [place] [id number] [place] [address] 43467- 2056 Sep, Diabetes type 2, uncontrolled E11.65 ; Dyslipidemia E78.5 and Depression, unspecified depression type F32.9 [place] [id number] [place] [address] 28347- 8706 Aug, Diabetes type 2, uncontrolled E11.65 ; Encounter for immunization Z23 ; Nasal congestion R09.81 and Ear pressure, bilateral H93.8X3 [place] [address] [place] [address] 18384- 4998 Jul, Eustachian tube dysfunction, left H69.82 [place] [id number] [place] [address] 73335- 8506 Jun, [place] [id number] [place] [address] 10095- 4581 Jun, Hospital discharge follow-up Z09 ; Syncope, unspecified syncope type R55 and Acute suppurative otitis media of left ear without spontaneous rupture of tympanic membrane, recurrence not specified H66.002 [place] [address] [place] [address] 91821- 7320 May, [place] [id number] [address]- 8908 May, [place] [address] [place] [address] 42156- 6132 May, [place] [address], [place] [address]- 0469 May, Diabetes type 2, uncontrolled E11.65 ; [...] disturbance G47.9 and Generalized anxiety disorder F41.1 [place] [address], [place] [address]- 7830 March, [place] [id number] [place] [address] [id number] March, Syncope, unspecified syncope type R55 and Depression, unspecified depression type F32.9 [place] [id number] [place] [address] [id number] March, Orthostatic hypotension I95.1 [facility] [id number] [place] [address] [id number] March, [place] [address] [facility] [id number] [address]- 9810 March, [facility] [id number][place] [address] Feb, [facility] [address] [facility] [facility] [address] [id number][place] [address] Feb, Dental examination Z01.20 [facility] [id number] [place] [address] [id number] Jan, [facility] [id number] [place] [address] [id number] Jan, [facility] [id number] [place] [address] [id number] Dec, Diabetes type 2, uncontrolled E11.65 [facility] [place] [address] [id number] [address] Nov, [facility] [place] [address] [facility] [address] [id number][place] [address] Nov, Encounter for dental examination Z01.20 [facility] [place] [address] [facility] [address] [id number] [address] Nov, Dental examination Z01.20 [facility] [address] [address] Sep, Diabetes type 2, uncontrolled E11.65 [facility] [place] [address] [facility] [address] [id number][place] [address] Sep, Encounter for dental examination Z01.20 and Dental caries, unspecified K02.9 [facility] [address] [address] Sep, Bipolar 2 disorder F31.81 [facility] [address] [address] Aug, [facility] [address] [place] [address] [id number] Aug, Follow up V67.9 [facility] [address] [address]4 Jul, Bipolar disorder, unspecified 296.80 [facility] [address] [address] Jul, Thyroid enlarged 240.9 and Bipolar disorder, unspecified 296.80 [facility] [id number] [address] Jun, Diabetes mellitus type 2, uncontrolled 250.02 ; Bipolar disorder, unspecified 296.80 and Rash 782.1 [facility] [address] [address] Jun, [facility] [id number] [address] May, Urinary tract infection 599.0 [facility] [id number] [address] May, Urinary tract infection 599.0 [facility] [id number][place] [address] May, [facility] [id number] [place] [address] [id number] May, Diabetes mellitus type 2, uncontrolled 250.02 and Pica in adults 307.52 [facility] [id number] [place] [address] [id number] Apr, Follow up V67.9 and Diabetes mellitus type 2, uncontrolled 250.02 [facility] [place] [id number] [place] [address] [id number] Apr, [facility] [id number] [place] [address] [id number]- 8114 Apr, [facility] [place] [id number] [place] [address] [id number] Apr, Hyperlipidemia 272.4 [facility] [place] [id number] [place] [address] [id number] March, Diabetes type 2, uncontrolled 250.02 [facility] [place] [id number] [place] [address] [id number] March, Diabetes mellitus type 2, uncontrolled 250.02 [facility] [place] [id number] [place] [address] [id number] March, Diabetes type 2, uncontrolled 250.02 [facility] [place] [id number], [place] [address] March, [facility] [place] [id number], [place] [address] March, [facility] [place] [id number], [place] [address] Feb, [facility] [id number] [place] [address] 24095669- 3080 Feb, [facility] [id number] [place] [address] [id number]- 3112 Feb, [facility] [id number] [place] [address] [id number] Jan, [facility] [place] [facility] [address] [facility] [id number], [place] [address]- 0846 Jan, [facility] [place] [facility] [address] [facility] [id number], [place] [address]- 8086 Jan, [facility] [address] [facility] [id number][place] [address] Jan, [facility] [place] [facility] [address] [facility] [id number], [place] [address]- 8696 Jan, [facility] [place] [facility] [address] [facility] [id number], [place] [address]- 2116 Jan, [facility] [address] [facility] [id number], [place] [address] Jan, [facility] [place] [facility] [address], [place] [address]- 4426 Jan, [facility] [place] [facility] [id number], [place] [address]- 8446 Dec, [facility] [address] [facility] [id number], [place] 577[address] Dec, [facility] [place] [facility] [id number], [place] [address]- 5396 Dec, [facility] [address] [id number], [place] [id number] Dec, [facility] [place] [facility] [id number], [place] [address]- 2546 Dec, [facility] [address] [facility] [id number], [place] [address]30[address] Dec, [facility] [place] [facility] [address] [facility] [id number], [place] [address]- 0636 Dec, [facility] [place] [facility] [address] [facility] [id number], [place] [address]- 2546 Dec, [facility] [address] [id number], [place] 511486620 Dec, [facility] [address] [id number], [place] 44[address] Dec, [facility] [place] [facility] [address] [facility] [id number] [place] [address]- 9262 Dec, [facility] [place] [facility] [address] [facility] [id number] [place] [address]- 7338 Nov, [facility] [place] [facility] [address] [id number] [place] [address]- 8540 Oct, [facility] [place] [facility] [address] [facility] [id number] [place] [address]- 4534 Oct, [facility] [address] [facility] [id number], [place] 585725431 Sep, [facility] [id number], [place] [address]- 4554 Sep, [facility] [address] [facility] [id number], [place] 610872587 Sep, [facility] [place] [facility] [address] [facility] [id number], [place] [address]- 3499 Sep, [facility] [address] [facility] [id number], [place] [id number] Aug, [facility] [place] [facility] [address], [place] [address]- 4103 Aug, [facility] [address] [facility] [id number], [place] 812248892 Aug, [facility] [place] [facility] [address] [facility] [id number], [place] [address]- 1259 Aug, [facility] [place] [facility] [address] [facility] [id number], [place] [address]- 8770 Jul, [facility] [place] [facility] [address] [facility] [id number], [place] [address]- 9763 Jul, [facility] [address] [facility] [id number], [place] 857862858 Jul, [facility] [place] [facility] [address] [place] [address]- 1016 Jul, [facility] [address] [id number] [place] [id number] Jun, [facility] [address] [id number] [place] 4399[address] Jun, [facility] [place] [facility] [address] [facility] [id number] [place] [address]- 0828 Jun, [facility] [place] [facility] [address] [facility] [id number] [place] [address]- 0481 Jun, [facility] [address] [id number] [place] [id number] Jun, [facility] [place] [facility] [address] [facility] [id number] [place] [address]- 8587 Jun, [facility] [address] [facility] [id number] [place] [address]531189[address] May, [facility] [place] [facility] [address] [facility] [id number], [place] [address]- 9844 May, [facility] [place] [facility] [address] [facility] [id number] [place] [address]- 6471 Apr, [facility] [place] [facility] [address] [facility] [id number], [place] [address]- 8542 Apr, [facility] [address] [facility] [id number] [place] [address] Apr, [facility] [place] [facility] [address] [facility] [id number], [place] [address]- 4262 Apr, [facility] [place] [facility] [address] [facility] [id number] [place] [address]- 9824 Apr, [facility] [address] [facility] [id number] [place] [id number] March, [facility] [place] [facility] [address] [facility] [id number] [place] 409[place]- 6191 March, [facility] [place] [facility] [address] [facility] [id number] [place]- 3122 March, [facility] [address] [facility] [id number] [place] [id number] March, [facility] [address] [facility] [id number], [place] [address]- 9476 March, [facility] [address] [facility] [id number] [place] [id number] March, [facility] [address] [facility] [id number], [place] [address]- 0726 March, [facility] [address] [facility] [id number], [place] 625783589 Feb, [facility] [place] [facility] [address] [facility] [id number], [place] [address]- 1495 Feb, [facility] [place] [facility] [address] [id number], [place] [address]- 7066 Jan, [facility] [id number], [place] 198436346 Jan, [facility] [place] [facility] [address], [place] [address]- 1497 Jan, [facility] [place] [facility] [address]005[address], [place] [address]- 1634 Jan, [facility] [address] [id number], [place] 769482309 Jan, [facility] [place] [address] [facility] [id number], [place] 341506489 Dec, [facility] [place] [facility] [address] [facility] [id number], [place] [address]- 0896 Dec, [facility] [place] [facility] [address] [facility] [id number], [place] [address]- 7241 Dec, [facility] [address] [facility] [id number], [place] [id number] Dec, [facility] [place] [facility] [address] [facility] [id number], [place] [address]- 1266 Dec, [facility] [address] [facility] [id number][place] [id number] Dec, [facility] [place] [facility] [address] [facility] [id number] [place] [address] Dec, [facility] [place] [facility] [address] [facility] [id number], [place] [address] Dec, [facility] [address] [facility] [id number] [place] [id number] Dec, [facility] [address] [facility] [id number] [place] [id number] Nov, [facility] [place] [facility] [address] [facility] [id number] [place] [address] Nov, [facility] [place] [facility] [address] [id number] [address] Nov, [facility] [id number][place] [id number] Nov, [facility] [id number] [place] [id number] Oct, [facility] [place] [facility] [address] [id number] [address] Oct, [facility] [address] [id number][place] [id number] Oct, [facility] [place] [facility] [id number], [place] [address] Oct, [facility] [place] [facility] [id number], [place] [address] Oct, [facility] [place] [facility] [address] [facility] [id number], [place] [address] Oct, [facility] [address] [facility] [id number][place] [id number] Oct, [facility] [place] [facility] [address] [facility] [id number], [place] [address] Oct, [facility] [place] [facility] [address] [id number], [place] [address] Sep, [facility] [place] [facility] [address] [facility] [id number], [place] [address] Sep, [facility] [address] [facility] [id number][place] [id number] Sep, [facility] [place] [facility] [address] [facility] [id number], [place] [address] Sep, [facility] [place] [facility] [address] [facility] [id number], [place] [address] Sep, [facility] [address] [facility] [id number][place] [id number] Sep, [facility] [address] [facility] [id number][place] [id number] Aug, [facility] [place] [facility] [address] [facility] [id number], [place] [address] Aug, [facility] [place] [facility] [id number], [place] [address] Aug, [facility] [address] [facility] [id number][place] [id number] Aug, [facility] [address] [facility] [id number][place] [id number] Aug, [facility] [place] [facility] [address] [facility] [facility] [id number], [place] [address] Aug, [facility] [place] [facility] [address] [facility] [id number], [place] [address] Aug, [facility] [place] [facility] [address] [facility] [id number], [place] [address] Aug, [facility] [place] [address] [facility] [id number][place] [id number] Jul, [facility] [place] [facility] [address] [facility] [id number], [place] [address] Jul, [facility] [place] [facility] [address] [facility] [id number], [place] [address] 18 Jul, 2013 [facility] [place] [address] [facility] [id number][place] [id number] Jul, [facility] [place] [address] [id number] [place] [id number] Jul, [facility] [place] [facility] [address] [facility] [id number] [place] [address] May, [facility] [place] [facility] [address] [facility] [id number] [place] [address] Apr, [facility] [place] [address] [id number] [place] [id number] Apr, [facility] [place] [address] [id number] [place] [id number] Apr, [facility] [place] [facility] [address] [facility] [id number] [place] [address] March, [facility] [place] [address] [id number] [place] [id number] March, [facility] [place] [address] [id number] [place] [address]1579[address] March, [facility] [place] [address] [id number] [place] [id number] March, [facility] [place] [address] [id number] [place] [id number] March, [facility] [place] [address] [id number] [place] [id number] March, [facility] [place] [facility] [address]00565100[place], [place] [address] March, [facility] [place] [facility] [address] [facility] [id number], [place] [address] March, [facility] [place] [facility] [address] [facility] [id number], [place] [address] Feb, [facility] [place] [address] [id number] [place] [id number] Feb, [facility] [place] [address] [id number] [place] [id number] Feb, [facility] [place] [address] [id number] [place] [id number] Feb, [facility] [place] [facility] [address] [facility] [id number], [place] [address] Feb, [facility] [place] [address] [id number] [place] [id number] Feb, [facility] [place] [address] [id number] [place] [id number] Jan, [facility] [place] [address] [id number] [place] [id number] Jan, [facility] [place] [address] [id number] [place] [id number] Dec, [facility] [place] [address] [id number] [place] [id number] Dec, [facility] [address] [facility] [id number], [place] [address] Dec, [facility] [place] [address] [id number] [place] [id number] Dec, [facility] [place] [address] [id number] [place] [id number] Dec, [facility] [place] [address] [id number] [place] [id number] Dec, [facility] [place] [address] [id number] [place] [id number] Dec, [facility] [address] [facility] [id number], [place] [address] Nov, [facility] [place] [address] [id number] [place] [id number] Nov, [facility] [place] [address] [id number] [place] [address]15176059 Nov, [facility] [place] [address] [id number] [place] 914351731 Nov, [facility] [place] [address] [id number] [place] [id number] Nov, [facility] [address] [facility] [id number], [place] [address] Oct, [facility] [place] [address] [id number] [place] [id number] Oct, [facility] [place] [address] [id number] [place] [id number] Oct, [facility] [place] [address] [id number] [place] [id number] Oct, [facility] [place] [facility] [address] [id number] [place] [address]- [address] Oct, [facility] [place] [facility] [address] [facility] [id number] [place] [address] Oct, [facility] [place] [facility] [address] [facility] [id number], [place] [address] Oct, [facility] [place] [address] [id number] [place] [id number] Sep, [facility] [place] [facility] [address] [facility] [id number][place] Sep, [facility] [place] [facility] [address] [facility] [id number], [place] [address] Sep, [facility] [place] [address] [id number][place] [id number] Sep, [facility] [place] [address] [id number] [place] 4598326[address] Sep, [facility] [place] [address] [id number][place] [id number] Sep, [facility] [place] [facility] [address] [facility] [id number], [place] [address] Sep, [facility] [place] [facility] [address] [facility] [id number], [place] [address]- 9769 Sep, [facility] [place] [facility] [address] [facility] [id number], [place] 28332847- 6986 Sep, [facility] [place] [address] [id number], [place] 535809133 Aug, [facility] [place] [facility] [address] [facility] [id number][place] 54334039- [address]80 Aug, [facility] [place] [address] [facility] [id number], [place] [address] Aug, [facility] [address] [id number] [place] [address] Aug, [facility] [address] [id number] [place] 40986397- 9038 Aug, [facility] [place] [address] [id number] [place] [id number] Aug, [facility] [place] [address] [id number] [place] [id number] Aug, [facility] [address] [id number] [place] [address]- 3789 Aug, [facility] [place] [address] [id number] [place] [id number] Aug, [facility] [place] [address] [id number] [place] 440262283 Jul, [facility] [place] [address] [id number] [place] 764171912 Jun, [facility] [place] [address] [id number] [place] [id number] May, [facility] [place] [address] [id number] [place] [id number] May, [facility] [place] [address] [id number] [place] 198432511 May, [facility] [place] [address] [id number] [place] [id number] May, [facility] [place] [address] [id number] [place] [id number] May, [facility] [place] [address] [id number] [place] 849123279 May, [facility] [place] [address] [id number] [place] 544470167 May, [facility] [place] [address] [id number] [place] 786121869 Apr, [facility] [place] [address] [id number] [place] [id number] Apr, [facility] [place] [address] [id number] [place] [id number] Apr, [facility] [place] [address] [id number] [place] [address]174434 Apr, [facility] [place] [address] [id number] [place] [id number] Apr, [facility] [place] [address] [id number] [place] [address] Apr, [facility] [place] [address] [id number] [place] [address]87394044 March, [facility] [place] [address] [id number] [place] 925587774 March, [facility] [place] [address] [id number] [place] [id number] Feb, [facility] [place] [address] [id number] [place] 517086093 Feb, [facility] [place] [address] [id number] [place] 344249520 Feb, [facility] [place] [address] [id number] [place] 8944[address] Jan, [facility] [place] [address] [id number] [place] [id number] Jan, [facility] [place] [address] [id number] [place] 304811901 Jan, [facility] [place] [address] [id number] [place] 354683513 Jan, [facility] [place] [address] [id number] [place] [id number] Dec, [facility] [address] [id number], [place] [address] Dec, [facility] [place] [address] [id number] [place] [id number] Dec, [facility] [place] [address] [id number] [place] 765240951 Nov, [facility] [place] [address] [id number] [place] [id number] Nov, [facility] [place] [address] [id number] [place] [id number] Nov, [facility] [place] [facility] [address] [id number] [place] [address]- 7301 Oct, [facility] [place] [facility] [address] [id number] [place] [address]- 8106 Oct, [facility] [place] [facility] [address] [id number] [place] [address]- 1694 Oct, [facility] [place] [facility] [address] [id number] [place] [address]- 9401 Aug, [facility] [place] [facility] [address] [id number] [place] [address]- 9348 Aug, [facility] [place] [facility] [address] [id number] [place] [address]- 3894 Aug, [facility] [place] [facility] [address] [id number] [place] [address]- 5708 March, [facility] [place] [facility] [address] [id number], [place] [address]- 1560 Oct, [facility] [place] [facility] [address] [id number] [place] [address]- 3876 Oct, [facility] [place] [facility] [address] [id number], [place] [address]- 4155 Sep, [facility] [place] [facility] [address] [id number], [place] [address]- 7124 Sep, [facility] [place] [facility] [address] [id number], [place] [address]- 2198 Sep, [facility] [place] [facility] [address] [id number] [place] [address]- 8445 Aug, [facility] [place] [facility] [address] [id number], [place] [address]- [address]01 Aug, [facility] [place] [facility] [address] [id number], [place] [address]- 2468 Jun, [facility] [place] [facility] [id number], [place] [address] May, [facility] [id number], [place] [address]- [address] Jan, [facility] [id number], [place] [address]- [address] Nov, [facility] [id number], [place] [address]- [address]227 Oct, [facility] [id number] [place] [address]- [address] Sep, [facility] [id number] [place] [address]- 1068 Sep, [facility] [id number] [place] [address]- 3082 Sep, [facility] [id number] [place] [address] 24[address]- 8935 Sep, [facility] [id number], [place] [address]- 4[address] Sep, [facility] [id number] [place] [address]- 7917 Aug, [facility] [id number], [place] [address]- [address] Aug, [facility] [address]65100[place], [place] [address]- [address] Jul, [facility] [id number], [place] [address]- 9[address] Jun, IMMUNIZATIONS No Known Immunizations SOCIAL HISTORY Never Assessed REASON FOR VISIT Diabetes, SLAVA Correa, Episode of hypoglycemia, blood sugar down to 35., Congestion PLAN OF CARE Activity Details Follow Up 4 Weeks Reason:CHM/DM VITAL SIGNS Height 67.7 in 2018-01-28 Weight 195 lbs 2018-01-28 Temperature 98.4 degrees Fahrenheit 2018-01-28 Heart Rate 71 bpm 2018-01-28 Respiratory Rate 24 2018-01-28 BMI 29.91 kg/m2 2018-01-28 Blood pressure systolic 112 mmHg 2018-01-28 Blood pressure diastolic 68 mmHg 2018-01-28 MEDICATIONS Medication Instructions Dosage Frequency Start Date End Date Duration Status Augmentin 875-125 MG Orally every 12 hrs 1 tablet 12h Jan, Feb, 10 day(s) Active Insulin Syringe-Needle U-100 28G X 1/2 subcutaneously Once a day as directed 24h Dec, Active Cymbalta 60 mg Orally Once a day 1 capsule 24h 30 Jul, 2015 90 days Active True Metrix Blood Glucose Test 1 subcutaneously 2 times a day test blood sugar 12h Aug, 12 months Active Multivitamin Adult - Active Lancets 1 subcutaneously 2 times a day test blood sugar 12h Aug, 12 months Active Levemir 100 UNIT/ML Subcutaneous 2 times a day inject 50U in am and 50U at HS 12h Dec, 12 months Active Albuterol Sulfate 90 mcg/actuation Inhalation every 4- 6 hrs prn cough, shortness of breath or wheezing 2 puffs Dec, Active True Metrix Meter w/Device Test blood sugar 12h Aug, 12 months Active iron Nov, Active Cetirizine HCl 10MG Orally Once a day TAKE ONE TABLET BY MOUTH ONCE DAILY 24h May, 90 days Active Levemir 100UNIT Subcutaneous 2 times a day inject 65U in am and 75U at HS 12h 28 Not-Taking Humalog 100 UNIT/ML Subcutaneous 3 times a day 23 units just before meals 8h Aug, 12 months Active Januvia 100MG Orally Once a day TAKE ONE TABLET BY MOUTH ONCE DAILY 24h 90 days Active Victoza 18MG/3ML Subcutaneous Once a day 1.8mg 24h 18 Nov, 2020 12 months Active Pen [place] 31G/8MM subcutaneously 2 times a day as directed 12h 25 Active Fluticasone Propionate 50MCG/ACT Nasally Once a day 1 spray in each nostril 24h Active Aspirin 81 MG Orally every 2 days 1 tablet 90 days Active Lisinopril 5 mg Orally Once a day 1 tablet 24h 06 May, 2017 90 days Active Gabapentin 400MG Orally at bedtime 1 tablet 90 days Active Atorvastatin Calcium 40 mg Orally Once a day 1 tablet 24h 90 days Active Pen [place] 31G X 8 MM subcutaneously 2 times a day as directed 12h Dec 90 days Active Vitamin B-12 100 MCG Orally Once a day 1 tablet 24h Active Insulin Syringe-Needle U-100 1ML/31G subcutaneously Once a day as directed 24h Active RESULTS No Results PROCEDURES No Known [...] 08/2016 Hospitalization History chest pain ED visit [facility], pt scheduled for heart cath on May Hospitalization History [facility] 2012 Hospitalization History Chest pain-[facility] 12/22/16
--- OUTSIDE RECORDS SUMMARY | 2018-11-01 18:39 | XMS REPORT ---
Author Author USMAN Chen [facility] Address [address] [place] [address] Care Team Providers Care Digital Account Coordinator Name Role Phone USMAN Chen Unavailable PROBLEMS Type Condition ICD9-CM Code VID12-SL Code Onset Dates Condition Status SNOMED Code Problem Other seasonal allergic rhinitis J30.2 Active 625256434 Problem Polyneuropathy associated with underlying disease G63 Active 118012528 Problem Other chronic pain G89.29 Active 13255034 Problem Vitamin D deficiency E55.9 Active 96730140 Problem Recurrent major depressive disorder, in partial remission F33.41 Active 24752812 Problem residential 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 Active 940733121 Problem Syncope, unspecified syncope type R55 Active 077388563 Problem Stage 2 chronic kidney disease N18.2 Active 270290311 Problem Type 2 diabetes mellitus with diabetic polyneuropathy E11.42 Active 58889357 Problem Episodic mood disorder F39 Active 67160430 Problem Dyslipidemia E78.5 Active 725567889 Problem Serum creatinine raised R79.89 Active 412201939 Problem Lumbago with sciatica, left side M54.42 Active 026527828 Problem Generalized anxiety disorder F41.1 Active 97034202 Problem Lumbago with sciatica, right side M54.41 Active 762597927 ALLERGIES Substance Reaction Event Type Date Status MetFORMIN HCl ER nausea and vomiting Drug Allergy Dec, Active Codeine Phosphate dizziness Drug Allergy Dec, Active metal/crown/watches rash Non Drug Allergy Dec, Active ENCOUNTERS Encounter Location Date Diagnosis [facility] [id number] [address] Jun, [facility] [id number], [place] [address] May, [facility] [id number], [place] [address] March, [place] [address], [place] [address] March, Type 2 diabetes mellitus with diabetic [...] H60.502 and Non-adherence to medical treatment Z91.[address] [facility] [address] [id number] [place] [id number] Feb, Dental examination Z01.20 [place] [address], [place] [address] Feb, Labile hypertension R09.89 ; Syncope, unspecified syncope type R55 ; Chest pain, unspecified type R07.9 and Dyslipidemia E78.5 [place] [address], [place] [address] Feb, [place] [id number] [place] [address]- 3616 Jan, [facility] [address] [id number] [place] [address] Jan, Dental examination Z01.20 [place] [address], [place] [address] Jan, Acute non-recurrent maxillary sinusitis J01.00 and Dyslipidemia E78.[address] [facility] [address] [id number] [place] [id number] Jan, Dental examination Z01.20 and Dental caries K02.[address] [facility] [address] [id number] [place] [id number] Jan, [facility] [address] [id number] [place] [address] Dec, Dental examination Z01.20 [facility] [address] [place] [address] -[address]97 Dec, Seasonal allergic rhinitis, unspecified trigger J30.2 [facility] [id number] [place] [address]365- 6014 Nov, [place] [address] [address]- [address] Nov, Type 2 diabetes mellitus with diabetic polyneuropathy E11.42 ; Dyslipidemia E78.5 ; Lumbago with sciatica, right side M54.41 ; Lumbago with sciatica, left side M54.42 ; 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 ; Polyneuropathy associated with underlying disease G63 ; Stage 2 chronic kidney disease N18.2 and Syncope, unspecified syncope type R55 [place] [id number] [place] [address] 99472- 8271 Oct, Type 2 diabetes mellitus with diabetic polyneuropathy E11.42 ; Acute otitis externa of left ear, unspecified type H60.502 ; Overweight (BMI 25.0-29.9) E66.3 ; Dyslipidemia E78.5 and Polyneuropathy associated with underlying disease G63 [place] [id number] [place] [address]695- 4908 Sep, [place] [id number] [place] [address] 83571- 1863 Aug, Abnormal mammogram R92.8 [place] [id number] [place] [address]16- 1105 Aug, Type 2 diabetes mellitus with diabetic polyneuropathy E11.42 [place] [id number] [place] [address] 96805- 1082 Aug, [place] [id number] [place] [address] 23176- 7879 Aug, Type 2 diabetes mellitus with diabetic polyneuropathy E11.42 ; Syncope, unspecified syncope type R55 ; Other chronic pain G89.29 and Encounter for immunization Z23 [place] [id number] [place] [address] 32038- 6431 Aug, Type 2 diabetes mellitus with diabetic polyneuropathy E11.42 [place] [address] [address]- [address]246 12 Jul, 2017 Type 2 diabetes mellitus with diabetic polyneuropathy E11.42 and Serum creatinine raised R79.89 [place] [address] [address]- 5467 Jul, Type 2 diabetes mellitus with diabetic polyneuropathy E11.42 and Serum creatinine raised R79.89 [place] [address] 5[address]- 9746 May, [place] [address] [address]157- 2599 May, [place] [address] [address]- 7857 May, Facial pain R51 ; Head injury, initial encounter S09.90XA ; Neck pain M54.2 and Fall, initial encounter W19.XXXA [place] [address] [address]- 0914 May, Type 2 diabetes mellitus with diabetic polyneuropathy E11.42 [place] [id number] [place] [address] 95602- 5153 May, [place] [address] 20845- 2293 May, Type 2 diabetes mellitus with diabetic polyneuropathy E11.42 [place] [address] 7[address]34- 3637 May, Dyslipidemia E78.5 ; 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 ; Type 2 diabetes mellitus with diabetic polyneuropathy E11.42 ; Generalized anxiety disorder F41.1 and Other seasonal allergic rhinitis J30.[address] [place] [address]- 5440 Apr, Type 2 diabetes mellitus with diabetic polyneuropathy E11.42 [place] [address], [place] [address] 8165 March, [place] [address], [place] [address] 2471 March, Abnormal mammogram R92.8 [place] [id number], [place] [address] 1054 Feb, Abnormal mammogram R92.8 [place] [address], [place] [address] Feb, Diabetes type 2, uncontrolled E11.65 [place] [address], [place] [address] 8889 Feb, Screening for breast cancer Z12.39 [place] [id number], [place] [address] 4[address] Jan, Screening for breast cancer Z12.39 [place] [address], [place] [address] 8304 Jan, Type 2 diabetes mellitus with diabetic polyneuropathy E11.42 ; residential 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 ; Other viral agents as the cause of diseases classified elsewhere B97.89 and Acute upper respiratory infection, unspecified J06.9 [place] [address], [place] [address]- 2698 Jan, [place] [id number], [place] [address]- 6960 Dec, Diabetes type 2, uncontrolled E11.65 ; Dyslipidemia E78.5 ; Generalized anxiety disorder F41.1 ; Depression, unspecified depression type F32.9 ; 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 and Polyneuropathy associated with underlying disease G63 [place] [address], [place] [address]- 7787 Dec, [place] [id number] [place] [address] 35100- 6954 14 Dec, 2016 [place] [address] 96741- 0128 Dec, [place] [id number] [place] [address] 07804- 5808 Dec, [place] [address] 49874- 3552 Oct, Well woman exam Z01.419 ; Screening for breast cancer Z12.39 ; 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 ; Type 2 diabetes mellitus without complications E11.9 and Encounter for immunization Z23 [address] [address]- 3998 Sep, [place] [address] 01458- 8886 Sep, Diabetes type 2, uncontrolled E11.65 ; Dyslipidemia E78.5 and Depression, unspecified depression type F32.9 [place] [id number] [place] [address] 26426- 5039 Aug, Diabetes type 2, uncontrolled E11.65 ; Encounter for immunization Z23 ; Nasal congestion R09.81 and Ear pressure, bilateral H93.8X3 [place] [id number] [place] [address] 48724- 2798 Jul, Eustachian tube dysfunction, left H69.82 [place] [id number] [place] [address] 49979- 6658 Jun, [place] [address] 04369- 4227 Jun, Hospital discharge follow-up Z09 ; Syncope, unspecified syncope type R55 and Acute suppurative otitis media of left ear without spontaneous rupture of tympanic membrane, recurrence not specified H66.002 [place] [address] 98149- 7489 May, [place] [address], [place] [address]- 5192 May, [place] [address], [place] [address]- 2441 May, [place] [address], [place] [address]- 8490 May, Diabetes type 2, uncontrolled E11.65 ; [...] disturbance G47.9 and Generalized anxiety disorder F41.1 [place] [address], [place] [address]- 3017 March, [facility] [address] [id number] [address] March, Syncope, unspecified syncope type R55 and Depression, unspecified depression type F32.9 [facility] [id number], [place] [address] March, Orthostatic hypotension I95.1 [facility] [address] [id number] [address] March, [place] [address], [place] [address]- 7289 March, [facility] [address] [id number][place] [address] Feb, [address] [id number] [place] [address] Feb, Dental examination Z01.20 [facility] [address] [id number] [address] Jan, [facility] [address] [id number] [address] Jan, [facility] [address] [id number], [place] [address] Dec, Diabetes type 2, uncontrolled E11.65 [facility] [place] [id number], [place] [address] Nov, [facility] [address] [id number] [place] [address] Nov, Encounter for dental examination Z01.20 [facility] [address] [id number] [place] [address] Nov, Dental examination Z01.20 [facility] [place] [id number], [place] [address] Sep, Diabetes type 2, uncontrolled E11.65 [facility] [place] [address] [facility] [address] [id number] [place] [address] Sep, Encounter for dental examination Z01.20 and Dental caries, unspecified K02.9 [facility] [address] [address] Sep, Bipolar 2 disorder F31.81 [facility] [address]100[place] [address] Aug, [facility] [address] [place] [address]47857587 Aug, Follow up V67.9 [facility] [id number] [address]29 Jul, Bipolar disorder, unspecified 296.80 [facility] [address]100[place] [address] Jul, Thyroid enlarged 240.9 and Bipolar disorder, unspecified 296.80 [facility] [id number] [address] Jun, Diabetes mellitus type 2, uncontrolled 250.02 ; Bipolar disorder, unspecified 296.80 and Rash 782.1 [facility] [place] [address] [id number] [address] Jun, [facility] [id number] [address] May, Urinary tract infection 599.0 [facility] [place] [address] [id number] [address] May, Urinary tract infection 599.0 [facility] [id number] [place] [address] [id number] May, [facility] [id number] [place] [address] 118586530 May, Diabetes mellitus type 2, uncontrolled 250.02 and Pica in adults 307.52 [facility] [id number] [place] [address] [id number] Apr, Follow up V67.9 and Diabetes mellitus type 2, uncontrolled 250.02 [facility] [place] [id number] [place] [address] [id number] Apr, [facility] [place] [id number] [place] [address] [id number]- 2699 Apr, [facility] [id number] [place] [address] [id number] Apr, Hyperlipidemia 272.4 [facility] [id number] [place] [address] [id number] March, Diabetes type 2, uncontrolled 250.02 [facility] [place] [id number] [place] [address] [id number] March, Diabetes mellitus type 2, uncontrolled 250.02 [facility] [place] [id number] [place] [address] [id number] March, Diabetes type 2, uncontrolled 250.02 [facility] [place] [id number] [place] [address] [id number] March, [facility] [place] [id number], [place] 389[address]706 March, [facility] [place] [id number] [place] [address] [id number] Feb, [facility] [id number] [place] [address] [id number]- 9822 Feb, [facility] [id number] [place] [address] 68434653- 5570 Feb, [facility] [id number], [place] [id number] Jan, [facility] [place] [facility] [address] [facility] [id number], [place] [address]- 2726 Jan, [facility] [place] [facility] [address] [facility] [id number], [place] [address]- 7856 Jan, [facility] [address] [facility] [id number], [place] 48[address]220 Jan, [facility] [place] [facility] [address], [place] [address]- 6205 Jan, [facility] [place] [facility] [address], [place] [address]- 9916 Jan, [facility] [address] [id number], [place] 798329457 Jan, [facility] [place] [facility] [address], [place] [address]- 5306 Jan, [facility] [place] [facility] [address], [place] [address]- 8960 Dec, [facility] [address] [facility] [id number], [place] [id number] Dec, [facility] [place] [facility] [address], [place] [address]- 8416 Dec, [facility] [address] [id number] [id number] 16 Dec, 2014 [facility] [place] [facility] [id number], [place] [address]- 6966 Dec, [facility] [address] [facility] [id number], [place] 310676225 Dec, [facility] [place] [facility] [address], [place] [address]- 8976 Dec, [facility] [place] [facility] [id number], [place] [address]- 0176 Dec, [facility] [address] [id number], [place] 614615240 Dec, [facility] [address] [facility] [id number], [place] 143970704 Dec, [facility] [place] [facility] [address] [facility] [id number] [address]- 6146 Dec, [facility] [place] [facility] [id number], [place] [address]- 6816 Nov, [facility] [place] [facility] [address], [place] [address]- 1646 Oct, [facility] [place] [facility] [address] [facility] [id number] [place] [address]- 3667 Oct, [facility] [address] [id number], [place] 566485010 Sep, [facility] [place] [facility] [address], [place] [address]- 7126 Sep, [facility] [address] [id number], [place] 579640963 Sep, [facility] [place] [facility] [address], [place] [address]- 0841 Sep, [facility] [address] [id number], [place] 356623112 Aug, [facility] [place] [facility] [id number], [place] [address]- 2846 Aug, [facility] [address] [facility] [id number], [place] 580930070 Aug, [facility] [place] [facility] [address] [facility] [id number], [place] [address]- 2546 Aug, [facility] [place] [facility] [address] [facility] [id number], [place] [address]- 2636 Jul, [facility] [place] [facility] [address] [facility] [id number][place] [address]- 2546 Jul, [facility] [address] [facility] [id number], [place] 489450726 Jul, [facility] [place] [facility] [address] [id number] [place] [address]- 6373 Jul, [facility] [address] [id number] [place] 725[address]186 Jun, [facility] [address] [id number] [place] [id number] Jun, [facility] [place] [facility] [address] [facility] [id number] [place] [address]- 6066 Jun, [facility] [place] [facility] [address] [facility] [id number] [place] [address]- 1492 Jun, [facility] [address] [facility] [id number] [place] [id number] Jun, [facility] [place] [facility] [address] [facility] [id number] [place] [address]- 7373 Jun, [facility] [address] [facility] [id number] [place] [id number] May, [facility] [place] [facility] [address] [facility] [id number], [place] [address]- 3638 May, [facility] [place] [facility] [address] [facility] [id number], [place] [address]- 6969 Apr, [facility] [place] [facility] [address] [facility] [id number] [place] [address]- 9050 Apr, [facility] [address] [facility] [id number] [place] 6034220[address] Apr, [facility] [place] [facility] [address] [facility] [id number][place] [address]- 7416 Apr, [facility] [place] [facility] [address] [facility] [id number] [place] [address]- 3435 Apr, [facility] [address] [facility] [id number] [place] 809720[address] March, [facility] [place] [facility] [address] [facility] [id number] [place] [address]- 0681 March, [facility] [place] [facility] [address] [facility] [id number][place] [address]- 9266 March, [facility] [address] [id number] [place] [id number] March, [facility] [place] [facility] [address] [facility] [id number] [place] [address]- 2546 March, [facility] [address] [facility] [id number] [place] [id number] March, [facility] [place] [facility] [address] [facility] [id number] [place] [address]- 7286 March, [facility] [address] [id number] [place] 047223551 Feb, [facility] [place] [facility] [address] [facility] [id number] [place] [address]- 9976 Feb, [facility] [place] [facility] [address] [facility] [id number][place] [address]- 7556 Jan, [facility] [address] [facility] [id number], [place] [id number] Jan, [facility] [place] [facility] [address] [facility] [id number], [place] [address]- 7252 Jan, [facility] [place] [facility] [address] [place] [address]- 1006 Jan, [facility] [address] [facility] [id number], [place] 336618714 Jan, [facility] [address] [facility] [id number], [place] 857468797 Dec, [facility] [place] [facility] [address] [facility] [id number][place] [address]- 5226 Dec, [facility] [place] [facility] [address] [facility] [id number] [address]- 7906 Dec, [facility] [address] [facility] [id number] [place] 1299[address] Dec, [facility] [place] [facility] [address] [facility] [id number], [place] [address]- 8756 Dec, [facility] [address] [facility] [id number] [place] 485879296 Dec, [facility] [place] [facility] [address] [facility] [id number], [place] [address]- 2546 Dec, [facility] [place] [facility] [address] [facility] [id number] [address]- 2546 Dec, [facility] [address] [facility] [id number], [place] [id number] Dec, [facility] [address] [facility] [id number], [place] 587326940 Nov, [facility] [place] [facility] [address] [facility] [id number] [place] [address]- 7466 Nov, [facility] [place] [facility] [address], [place] [address]- 2546 Nov, [facility] [id number], [place] [address]39241985 Nov, [facility] [address] [id number], [place] 357778750 Oct, [facility] [place] [facility] [id number], [place] [address] Oct, [facility] [address] [id number] [id number] Oct, [facility] [place] [facility] [id number], [place] [address] Oct, [facility] [place] [facility] [id number], [place] [address] Oct, [facility] [place] [facility] [address] [facility] [id number], [place] [address] Oct, [facility] [address] [facility] [id number][place] [id number] Oct, [facility] [place] [facility] [address] [facility] [id number], [place] [address] Oct, [facility] [place] [facility] [address] [id number], [place] [address] Sep, [facility] [place] [facility] [address] [id number], [place] [address] Sep, [facility] [address] [id number] [place] [id number] Sep, [facility] [place] [facility] [address] [facility] [id number] [place] [address] Sep, [facility] [place] [facility] [address] [facility] [id number] [place] [address] Sep, [facility] [address] [id number] [place] [id number] Sep, [facility] [address] [id number] [place] [id number] Aug, [facility] [place] [facility] [address] [facility] [id number], [place] [address] Aug, [facility] [place] [facility] [address] [id number], [place] [address] Aug, [facility] [address] [id number] [id number] Aug, [facility] [address] [id number] [id number] Aug, [facility] [place] [facility] [address] [facility] [id number], [place] [address] Aug, [facility] [place] [facility] [address] [facility] [id number], [place] [address] Aug, [facility] [place] [facility] [address] [facility] [id number], [place] [address] Aug, [facility] [address] [id number][place] [id number] Jul, [facility] [place] [facility] [address] [facility] [id number], [place] [address] Jul, [facility] [place] [facility] [address] [facility] [id number], [place] [address] Jul, [facility] [address] [id number] [place] [address] [place] [id number] Jul, [facility] [address] [id number] [place] [id number] Jul, [facility] [address] [facility] [id number], [place] [address] May, [facility] [place] [facility] [address] [facility] [id number] [place] [address] Apr, [facility] [address] [id number] [place] [id number] Apr, [facility] [address] [id number] [place] [id number] Apr, [facility] [place] [facility] [address] [id number] [place] [address] March, [facility] [address] [id number] [place] [id number] March, [facility] [address] [id number] [place] [id number] March, [facility] [facility] [address] [id number] [place] [id number] March, [facility] [address] [id number] [place] [id number] March, [facility] [place] [address] [id number] [place] [id number] March, [facility] [address] [facility] [id number], [place] [address] March, [facility] [place] [facility] [address] [facility] [id number], [place] [address] March, [facility] [place] [facility] [address] [facility] [id number] [place] [address] Feb, [facility] [place] [address] [id number] [place] [id number] Feb, [facility] [address] [id number] [place] [id number] Feb, [facility] [address] [id number] [place] [id number] Feb, [facility] [address] [facility] [id number], [place] [address] Feb, [facility] [place] [address] [id number] [place] [id number] Feb, [facility] [place] [address] [id number] [place] [id number] Jan, [facility] [address] [id number] [place] [id number] Jan, [facility] [address] [id number] [place] [id number] Dec, [facility] [place] [address] [id number] [place] [id number] Dec, [facility] [address] [facility] [id number], [place] [address] Dec, [facility] [place] [address] [id number] [place] [id number] Dec, [facility] [address] [id number] [place] [id number] Dec, [facility] [address] [id number] [place] [id number] Dec, [facility] [address] [id number] [place] [id number] Dec, [facility] [address] [id number], [place] [address] Nov, [facility] [address] [id number][place] [id number] Nov, [facility] [place] [address] [id number][place] [id number] Nov, [facility] [address] [id number] [place] [id number] Nov, [facility] [address] [id number] [place] [id number] Nov, [facility] [address] [id number] [address] Oct, [facility] [place] [address] [id number] [place] [id number] Oct, [facility] [address] [id number] [place] [id number] Oct, [facility] [address] [id number] [place] [id number] Oct, [facility] [place] [facility] [address] [facility] [id number] [place] [address] Oct, [facility] [place] [facility] [address] [facility] [id number], [place] [address] Oct, [facility] [place] [facility] [address] [id number], [place] [address] Oct, [facility] [place] [address] [id number] [place] [id number] Sep, [facility] [place] [facility] [address] [facility] [id number], [place] [address] Sep, [facility] [place] [facility] [address] [facility] [id number], [place] [address] Sep, [facility] [address] [id number] [place] [id number] Sep, [facility] [address] [id number][place] [id number] Sep, [facility] [address] [id number][place] [id number] Sep, [facility] [place] [facility] [address] [facility] [id number], [place] [address] Sep, [facility] [place] [facility] [address] [facility] [id number], [place] [address] Sep, [facility] [place] [facility] [address] [facility] [id number], [place] [address] Sep, [facility] [address] [id number][place] [id number] Aug, [facility] [place] [facility] [address] [facility] [id number], [place] [address] Aug, [facility] [address] [id number] [place] [id number] Aug, [facility] [address] [id number] [place] [address]- [address] Aug, [facility] [place] [facility] [address] [id number] [place] [address] Aug, [facility] [address] [id number] [place] [id number] Aug, [facility] [address] [id number] [place] [id number] Aug, [facility] [address] [id number] [place] [address]- [address] Aug, [facility] [address] [id number] [place] [id number] Aug, [facility] [address] [id number] [place] [id number] Jul, [facility] [address] [id number] [place] [id number] Jun, [facility] [address] [id number] [place] [id number] May, [facility] [address] [id number] [place] [id number] May, [facility] [address] [id number] [place] [id number] May, [facility] [address] [id number] [place] [id number] May, [facility] [address] [id number] [place] [id number] May, [facility] [address] [id number] [place] [id number] May, [facility] [address] [id number] [place] [id number] May, [facility] [address] [id number] [place] [id number] Apr, [facility] [address] [id number] [place] [id number] Apr, [facility] [address] [id number] [id number] Apr, [facility] [address] [id number] [place] [id number] Apr, [facility] [address] [id number] [place] [id number] Apr, [facility] [address] [id number] [place] [id number] Apr, [facility] [place] [address] [id number] [place] [id number] March, [facility] [place] [address] [id number] [place] [id number] March, [facility] [place] [address] [id number] [place] [id number] Feb, [facility] [place] [address] [id number] [place] [id number] Feb, [facility] [place] [address] [id number] [place] [id number] Feb, [facility] [place] [address] [id number] [place] [id number] Jan, [facility] [place] [address] [id number] [place] [id number] Jan, [facility] [place] [address] [id number] [place] [id number] Jan, [facility] [address] [id number] [place] [id number] Jan, [facility] [address] [id number] [place] [id number] Dec, [facility] [place] [address] [facility] [id number] [place] [address]- [address] Dec, [facility] [address] [id number] [place] [id number] Dec, [facility] [address] [id number] [place] [id number] Nov, [facility] [address] [id number] [place] [id number] Nov, [facility] [address] [id number][place] [id number] Nov, [facility] [place] [facility] [address] [facility] [id number] [place] [address]- [address] Oct, [facility] [place] [facility] [address] [facility] [id number] [place] [address]- [address]66 Oct, [facility] [place] [facility] [address] [facility] [id number] [place] [address]- [address] Oct, [facility] [place] [facility] [address] [id number] [place] [address]- [address]128 Aug, [facility] [place] [facility] [address] [facility] [id number] [place] [address]- 48[address] Aug, [facility] [place] [facility] [address] [facility] [id number] [place] [address]- 0[address] Aug, [facility] [place] [facility] [address] [facility] [id number], [place] [address]- [address] March, [facility] [place] [facility] [address] [facility] [id number] [place] [address]- [address] Oct, [facility] [place] [facility] [address] [id number] [place] [address] Oct, [facility] [place] [facility] [address] [id number], [place] [address] Sep, [facility] [place] [facility] [address] [facility] [id number], [place] [address]- [address] Sep, [facility] [place] [facility] [address] [facility] [id number], [place] [address]- 284[address] Sep, [facility] [place] [facility] [address] [facility] [id number], [place] [address]- [address]167 Aug, [facility] [place] [facility] [address] [facility] [id number], [place] [address]- 49[address] Aug, [facility] [place] [facility] [address] [facility] [id number], [place] [address]- [address] Jun, [facility] [place] [facility] [address], [place] [address] May, [facility] [address] [address]- [address] Jan, [facility] [address], [place] [address]- [address] Nov, [facility] [id number] [place] [address]- 9770 Oct, [facility] [address] [facility] [id number], [place] [address]- [address] Sep, [facility] [id number] [place] [address]- [address] Sep, [facility] [id number] [place] [address]- 2589 Sep, [facility] [id number] [place] [address]- [address]006 Sep, [facility] [id number] [place] [address]- [address] Sep, [facility] [address], [place] [address]- [address] Aug, [facility] [address], [place] [address]- [address] Aug, [facility] [address], [place] [address]- [address] Jul, [facility] [address], [place] [address]- [address] Jun, IMMUNIZATIONS No Known Immunizations SOCIAL HISTORY Never Assessed REASON FOR VISIT dental pain/broken tooth PLAN OF CARE Activity Details Follow Up After Med Clearance Reason:1 hour restorative VITAL SIGNS Height 67.7 in 2018-01-05 Blood pressure systolic 124 mmHg 2018-01-05 Blood pressure diastolic 74 mmHg 2018-01-05 MEDICATIONS Medication Instructions Dosage Frequency Start Date End Date Duration Status Fluticasone Propionate 50MCG/ACT Nasally Once a day 1 spray in each nostril 24h Active Levemir 100 UNIT/ML Subcutaneous 2 times a day inject 50U in am and 50U at HS 12h 16 Dec, 2014 12 months Active Multivitamin Adult - Active Cymbalta 60 mg Orally Once a day 1 capsule 24h 30 Jul, 2015 90 days Active True Metrix Blood Glucose Test 1 subcutaneously 2 times a day test blood sugar 12h Aug, 12 months Active Gabapentin 400MG Orally at bedtime 1 tablet 90 days Active Vitamin B-12 100 MCG Orally Once a day 1 tablet 24h Active Aspirin 81 MG Orally every 2 days 1 tablet 90 days Active True Metrix Meter w/Device Test blood sugar 12h Aug, 12 months Active Lancets 1 subcutaneously 2 times a day test blood sugar 12h Aug, 12 months Active Pen Flovilla 31G X 8 MM subcutaneously 2 times a day as directed 12h Dec 90 days Active Levemir 100UNIT Subcutaneous 2 times a day inject 65U in am and 75U at HS 12h 28 Not-Taking Albuterol Sulfate 90 mcg/actuation Inhalation every 4- 6 hrs prn cough, shortness of breath or wheezing 2 puffs Dec, Active Cetirizine HCl 10MG Orally Once a day TAKE ONE TABLET BY MOUTH ONCE DAILY 24h May, 90 days Active Victoza 18MG/3ML Subcutaneous Once a day 1.8mg 24h 18 Nov, 2020 12 months Active Pen Flovilla 31G/8MM subcutaneously 2 times a day as directed 12h 25 Active Humalog 100 UNIT/ML Subcutaneous 3 times a day 23 units just before meals 8h Aug, 12 months Active Insulin Syringe-Needle U-100 1ML/31G subcutaneously Once a day as directed 24h Active Insulin Syringe-Needle U-100 28G X 1/2 subcutaneously Once a day as directed 24h 03 Dec, 2016 Active Januvia 100MG Orally Once a day TAKE ONE TABLET BY MOUTH ONCE DAILY 24h 90 days Active Lisinopril 5 mg Orally Once a day 1 tablet 24h May, 90 days Active Atorvastatin Calcium 40 mg Orally Once a day 1 tablet 24h 90 days Active RESULTS No Results PROCEDURES Procedure Date Ordered Result Body Site LTD ORAL EVALUATION - PROBLEM FOCUS Jan 05, 2018 INTRAORL-PERIAPICAL 1 FILM [id number] Jan 05, 2018 BITEWING - SINGLE FILM Jan 05, 2018 INTRAORL-PERIAPICAL EA ADD FILM Jan 05, 2018 INSTRUCTIONS MEDICATIONS ADMINISTERED No Known Medications [...] 08/2016 Hospitalization History chest pain ED visit [facility], pt scheduled for heart cath on May Hospitalization History [facility] 2012 Hospitalization History Chest pain-[facility] 12/22/16
--- OUTSIDE RECORDS SUMMARY | 2018-11-01 18:40 | XMS REPORT ---
Author Author CHRISTOPHER SOLORZANO [facility] Address [address] [place] [address] Care Team Providers Care Local Bulk Driver Name Role Phone VICTORIA SOLORZANOARDO Unavailable PROBLEMS Type Condition ICD9-CM Code [id number] Code Onset Dates Condition Status SNOMED Code Problem Other seasonal allergic rhinitis J30.2 Active 056245861 Problem Polyneuropathy associated with underlying disease G63 Active 253808182 Problem Other chronic pain G89.29 Active 52389555 Problem Vitamin D deficiency E55.9 Active 57188474 Problem Recurrent major depressive disorder, in partial remission F33.41 Active 76728708 Problem MCFP 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 Active 772586725 Problem Syncope, unspecified syncope type R55 Active 800626869 Problem Stage 2 chronic kidney disease N18.2 Active 189022878 Problem Type 2 diabetes mellitus with diabetic polyneuropathy E11.42 Active 26781712 Problem Episodic mood disorder F39 Active 70834872 Problem Dyslipidemia E78.5 Active 727790186 Problem Serum creatinine raised R79.89 Active 308808066 Problem Lumbago with sciatica, left side M54.42 Active 558807302 Problem Generalized anxiety disorder F41.1 Active 67858583 Problem Lumbago with sciatica, right side M54.41 Active 047006441 ALLERGIES Substance Reaction Event Type Date Status MetFORMIN HCl ER nausea and vomiting Drug Allergy Jan, Active Codeine Phosphate dizziness Drug Allergy Jan, Active metal/crown/watches rash Non Drug Allergy Jan, Active ENCOUNTERS Encounter Location Date Diagnosis [facility] [id number], [place] [address] Jun, [facility] [id number], [place] [address] March, [facility] [id number], [place] [address] March, Type 2 diabetes mellitus with diabetic [...] H60.502 and Non-adherence to medical treatment Z91.[address] [id number] [id number] Feb, Dental examination Z01.20 [place] [address] [address] Feb, Labile hypertension R09.89 ; Syncope, unspecified syncope type R55 ; Chest pain, unspecified type R07.9 and Dyslipidemia E78.5 [place] [address] [address]- [address] Feb, [facility] [id number] [place] [address]73- 6419 Jan, [id number] [place] [address] [id number] Jan, Dental examination Z01.20 [facility] [id number] [place] [address] 61134- 5794 Jan, Acute non-recurrent maxillary sinusitis J01.00 and Dyslipidemia E78.[address] [id number][place] [id number] Jan, Dental examination Z01.20 and Dental caries K02.[address] [id number] [place] [address] [id number] Jan, [id number] [place] [address] [id number] Dec, Dental examination Z01.20 [facility] [id number] [place] [address] 7[address]27 -[address]85 Dec, Seasonal allergic rhinitis, unspecified trigger J30.2 [place] [id number] [place] [address] 03759- 2675 Nov, [place] [address] [address]- 2194 Nov, Type 2 diabetes mellitus with diabetic polyneuropathy E11.42 ; Dyslipidemia E78.5 ; Lumbago with sciatica, right side M54.41 ; Lumbago with sciatica, left side M54.42 ; MCFP 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 ; Polyneuropathy associated with underlying disease G63 ; Stage 2 chronic kidney disease N18.2 and Syncope, unspecified syncope type R55 [place] [address] [address]- [address] Oct, Type 2 diabetes mellitus with diabetic polyneuropathy E11.42 ; Acute otitis externa of left ear, unspecified type H60.502 ; Overweight (BMI 25.0-29.9) E66.3 ; Dyslipidemia E78.5 and Polyneuropathy associated with underlying disease G63 [place] [address] [address]- [address] Sep, [place] [address] [address]- [address] Aug, Abnormal mammogram R92.[address] [address]- 0762 Aug, Type 2 diabetes mellitus with diabetic polyneuropathy E11.42 [place] [id number] [place] [address] 23892- 3549 Aug, [place] [address] [address]- [address] Aug, Type 2 diabetes mellitus with diabetic polyneuropathy E11.42 ; Syncope, unspecified syncope type R55 ; Other chronic pain G89.29 and Encounter for immunization Z23 [place] [address] 0[address]92- 1098 Aug, Type 2 diabetes mellitus with diabetic polyneuropathy E11.42 [facility] [id number] [place] [address] 61352- 1696 Jul, Type 2 diabetes mellitus with diabetic polyneuropathy E11.42 and Serum creatinine raised R79.89 [facility] [id number] [place] [address] 47322- 3258 Jul, Type 2 diabetes mellitus with diabetic polyneuropathy E11.42 and Serum creatinine raised R79.89 [facility] [id number] [place] [address] 93044- 1194 May, [facility] [id number] [place] [address] 00303- 4245 May, [facility] [id number] [place] [address] 48739- 7063 May, Head injury, initial encounter S09.90XA ; Facial pain R51 ; Neck pain M54.2 and Fall, initial encounter W19.XXXA [facility] [id number] [place] [address] 78279- 9243 May, Type 2 diabetes mellitus with diabetic polyneuropathy E11.42 [facility] [id number] [place] [address] 69086- 4256 May, [facility] [id number] [place] [address] 20001- 9055 May, Type 2 diabetes mellitus with diabetic polyneuropathy E11.42 [facility] [address] [place] [address] 92403- 6961 May, Dyslipidemia E78.5 ; 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 ; Type 2 diabetes mellitus with diabetic polyneuropathy E11.42 ; Generalized anxiety disorder F41.1 and Other seasonal allergic rhinitis J30.2 [facility] [id number] [place] [address] 80161- 0832 Apr, Type 2 diabetes mellitus with diabetic polyneuropathy E11.42 [facility] [address], [place] [address] March, [place] [address] [place] [address] 63065- 1848 March, Abnormal mammogram R92.8 [place] [address], [place] [address] Feb, Abnormal mammogram R92.8 [place] [id number] [place] [address] 53334- 5850 Feb, Diabetes type 2, uncontrolled E11.65 [place] [id number] [place] [address]16- 2009 Feb, Screening for breast cancer Z12.39 [place] [id number] [place] [address] 40599- 0313 Jan, Screening for breast cancer Z12.39 [place] [id number] [place] [address] 06922- 1918 Jan, Type 2 diabetes mellitus with diabetic polyneuropathy E11.42 ; MCFP 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 ; Other viral agents as the cause of diseases classified elsewhere B97.89 and Acute upper respiratory infection, unspecified J06.9 [place] [address], [place] [address] Jan, [place] [address] [place] [address] 42886- 2893 Dec, Diabetes type 2, uncontrolled E11.65 ; Dyslipidemia E78.5 ; Generalized anxiety disorder F41.1 ; Depression, unspecified depression type F32.9 ; 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 and Polyneuropathy associated with underlying disease G63 [place] [address], [place] [address] 16 Dec, 2016 [place] [address], [place] [address]- 9[address] Dec, [place] [id number] [place] [address] 61314- 3248 Dec, [place] [address] [address]17- 2943 Dec, [place] [address] 99318- 4905 Oct, Well woman exam Z01.419 ; Screening for breast cancer Z12.39 ; 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 ; Type 2 diabetes mellitus without complications E11.9 and Encounter for immunization Z23 [address] 23584- 7696 Sep, [place] [address] 6[address]13- 3669 Sep, Diabetes type 2, uncontrolled E11.65 ; Dyslipidemia E78.5 and Depression, unspecified depression type F32.[address] 23327- 3452 Aug, Diabetes type 2, uncontrolled E11.65 ; Encounter for immunization Z23 ; Nasal congestion R09.81 and Ear pressure, bilateral H93.8X3 [address] 90064- 9125 Jul, Eustachian tube dysfunction, left H69.[address] 60[address]- 9416 Jun, [address] 21092- 0195 Jun, Hospital discharge follow-up Z09 ; Syncope, unspecified syncope type R55 and Acute suppurative otitis media of left ear without spontaneous rupture of tympanic membrane, recurrence not specified H66.002 [place] [id number] [place] [address] 64493- 1794 May, [place] [address] 91966- 0036 May, [address], [place] [address] 2820 May, [place] [id number] [place] [address] 02273- 2500 May, Diabetes type 2, uncontrolled E11.65 ; [...] disturbance G47.9 and Generalized anxiety disorder F41.1 [place] [address], [place] [address] March, [address] [place] [address] [id number] March, Syncope, unspecified syncope type R55 and Depression, unspecified depression type F32.9 [facility] [id number] [place] [address] [id number] March, Orthostatic hypotension I95.1 [facility] [id number] [place] [address] [id number] March, [place] [address], [place] [address]- 9108 March, [facility] [id number], [place] [id number] Feb, [place] [address] [facility] [id number] [id number] Feb, Dental examination Z01.20 [facility] [id number] [place] [address] [id number] Jan, [facility] [id number] [place] [address] [id number] Jan, [facility] [id number] [place] [address] [id number] Dec, Diabetes type 2, uncontrolled E11.65 [facility] [address] [id number] [id number] Nov, [facility] [address] [facility] [address] [id number] [id number] Nov, Encounter for dental examination Z01.20 [facility] [address] [facility] [address] [id number], [place] [id number] Nov, Dental examination Z01.20 [facility] [address] [id number] Sep, Diabetes type 2, uncontrolled E11.65 [facility] [address] [facility] [address] [id number][place] [id number] Sep, Encounter for dental examination Z01.20 and Dental caries, unspecified K02.9 [facility] [place] [address] [address] Sep, Bipolar 2 disorder F31.81 [facility] [address] [place] [address] [id number] Aug, [facility] [address] [place] [address] [id number] Aug, Follow up V67.9 [facility] [address] [address] Jul, Bipolar disorder, unspecified 296.80 [facility] [id number] [id number] Jul, Thyroid enlarged 240.9 and Bipolar disorder, unspecified 296.80 [facility] [address] [id number] Jun, Diabetes mellitus type 2, uncontrolled 250.02 ; Bipolar disorder, unspecified 296.80 and Rash 782.1 [facility] [address] [place] [address] [id number] Jun, [facility] [place] [address] [id number] May, Urinary tract infection 599.0 [facility] [address] [id number] [id number] May, Urinary tract infection 599.0 [facility] [place] [id number], [place] [id number] May, [facility] [place] [id number] [place] [address] [id number] May, Diabetes mellitus type 2, uncontrolled 250.02 and Pica in adults 307.52 [facility] [place] [id number] [place] [address] [id number] Apr, Follow up V67.9 and Diabetes mellitus type 2, uncontrolled 250.02 [facility] [id number] [place] [address] [id number] Apr, [facility] [address] 02592- 7618 Apr, [facility] [place] [id number] [place] [address] [id number] Apr, Hyperlipidemia 272.4 [facility] [place] [id number] [place] [address] [id number] March, Diabetes type 2, uncontrolled 250.02 [facility] [place] [id number] [place] [address] [id number] March, Diabetes mellitus type 2, uncontrolled 250.02 [facility] [place] [id number] [place] [address] [id number] March, Diabetes type 2, uncontrolled 250.02 [facility] [place] [id number] [place] [address] [id number] March, [facility] [place] [address] [place] [address] [id number] March, [facility] [place] [id number] [place] [address] [id number] Feb, [facility] [id number] [place] [address] 21096- 9824 Feb, [facility] [id number] [place] [address] 22468- 9296 Feb, [facility] [id number] [place] [address] [id number] Jan, [facility] [id number] [place] [address] [place] [address]- 1996 Jan, [facility] [place] [facility] [address] [facility] [id number], [place] [address]- 2006 Jan, [facility] [address] [facility] [id number][place] [id number] Jan, [facility] [place] [facility] [address], [place] [address]- 7506 Jan, [facility] [place] [facility] [address] [facility] [id number], [place] [address]- 9156 Jan, [facility] [address] [facility] [id number], [place] [id number] Jan, [facility] [place] [facility] [address], [place] [address]- 7276 Jan, [facility] [place] [facility] [address], [place] [address]- 6776 Dec, [facility] [address] [id number], [place] [id number] Dec, [facility] [place] [facility] [id number], [place] [address]- 6155 Dec, [facility] [id number], [place] [id number] Dec, [facility] [place] [facility] [id number], [place] [address]- 8836 Dec, [facility] [address] [facility] [id number], [place] [id number] Dec, [facility] [place] [facility] [id number], [place] [address]- 8666 Dec, [facility] [place] [facility] [address], [place] [address]- 0686 Dec, [facility] [address] [facility] [id number], [place] [id number] Dec, [facility] [address] [id number], [place] [id number] Dec, [facility] [address] [id number] [place] [address]- 8566 Dec, [facility] [address] [facility] [id number] [place] [address]- 8646 Nov, [facility] [address] [facility] [id number] [place] [address]- 0978 Oct, [facility] [address] [facility] [id number], [place] [address]- 2369 Oct, [facility] [place] [address] [facility] [id number][place] [id number] Sep, [facility] [address] [facility] [id number] [place] [address]- 5596 Sep, [facility] [place] [address] [id number], [place] [id number] Sep, [facility] [address] [facility] [id number], [place] [address]- 3853 Sep, [facility] [place] [address] [id number], [place] [id number] Aug, [facility] [address] [facility] [id number], [place] [address]- 2051 Aug, [facility] [place] [address] [id number], [place] [id number] Aug, [facility] [place] [facility] [id number], [place] [address]- 8416 Aug, [facility] [place] [facility] [address] [facility] [id number], [place] [address]- 0416 Jul, [facility] [place] [facility] [address] [facility] [id number], [place] [address]- 7931 Jul, [facility] [address] [facility] [id number], [place] [id number] Jul, [facility] [place] [facility] [address] [facility] [id number], [place] [address]- 2946 Jul, [facility] [address] [facility] [id number] [place] [id number] Jun, [facility] [address] [id number] [place] [id number] Jun, [facility] [place] [facility] [address] [id number] [place] [address]- 1309 Jun, [facility] [place] [facility] [address] [facility] [id number] [place] [address]- 4164 Jun, [facility] [address] [facility] [id number] [place] [id number] Jun, [facility] [place] [facility] [address] [id number] [place] [address]- 2891 Jun, [facility] [address] [facility] [id number] [place] [id number] May, [facility] [place] [facility] [address] [facility] [id number] [place] [address]- 2590 May, [facility] [place] [facility] [address] [facility] [id number], [place] [address]- 0474 Apr, [facility] [place] [facility] [address] [facility] [id number] [place]- 3777 Apr, [facility] [address] [facility] [id number], [place] [id number] Apr, [facility] [place] [facility] [address] [facility] [id number] [place] 1612 Apr, [facility] [place] [facility] [address] [facility] [id number], [place] [address]- 5263 Apr, [facility] [address] [facility] [id number], [place] [id number] March, [facility] [place] [facility] [address] [facility] [id number] [place] [address]- 4488 March, [facility] [place] [facility] [address] [facility] [id number] [place] [address]- 4026 March, [facility] [address] [facility] [id number], [place] [id number] March, [facility] [place] [facility] [address] [facility] [id number], [place] [address]- 4376 March, [facility] [address] [facility] [id number], [place] [id number] March, [facility] [place] [facility] [address] [facility] [id number], [place] [address]- 2196 March, [facility] [address] [facility] [id number], [place] [id number] Feb, [facility] [place] [facility] [address] [facility] [id number], [place] [address]- 1484 Feb, [facility] [place] [facility] [address], [place] [address]- 1276 Jan, [facility] [address] [facility] [id number], [place] [id number] Jan, [facility] [place] [facility] [address], [place] [address]- 7959 Jan, [facility] [place] [facility] [address] [id number], [place] [address]- 8067 Jan, [facility] [address] [facility] [id number], [place] [id number] Jan, [facility] [address] [id number], [place] [id number] Dec, [facility] [place] [facility] [address], [place] [address]- 8776 Dec, [facility] [place] [facility] [address] [facility] [id number], [place] [address]- 5483 Dec, [facility] [address] [facility] [id number], [place] [id number] Dec, [facility] [place] [facility] [address] [facility] [id number], [place] [address]- 3066 Dec, [facility] [address] [facility] [id number], [place] [id number] Dec, [facility] [place] [facility] [address], [place] [address] Dec, [facility] [place] [facility] [address] [facility] [id number] [place] [address] Dec, [facility] [address] [id number] [place] [id number] Dec, [facility] [address] [id number] [place] [id number] Nov, [facility] [place] [facility] [address] [facility] [id number], [place] [address] Nov, [facility] [place] [facility] [address] [facility] [id number] [place] [address] Nov, [facility] [address] [id number] [place] [id number] Nov, [facility] [address] [id number] [place] [id number] Oct, [facility] [address] [facility] [id number], [place] [address] Oct, [facility] [address] [id number] [place] [id number] Oct, [facility] [place] [facility] [address] [facility] [id number][place] [address] Oct, [facility] [place] [facility] [address] [id number] [address] Oct, [facility] [place] [facility] [address] [id number] [address] Oct, [facility] [address] [id number][place] [id number] Oct, [facility] [place] [facility] [address] [facility] [id number], [place] [address] Oct, [facility] [place] [facility] [address] [facility] [id number], [place] [address] Sep, [facility] [place] [facility] [address] [facility] [id number], [place] [address] Sep, [facility] [address] [facility] [id number][place] [id number] Sep, [facility] [address] [facility] [id number], [place] [address] Sep, [facility] [place] [facility] [address] [facility] [id number], [place] [address] Sep, [facility] [address] [facility] [id number][place] [id number] Sep, [facility] [address] [facility] [id number][place] [id number] Aug, [facility] [address] [facility] [id number], [place] [address] Aug, [facility] [place] [facility] [address] [facility] [id number], [place] [address] Aug, [facility] [address] [facility] [id number][place] [id number] Aug, [facility] [address] [facility] [id number][place] [id number] Aug, [facility] [place] [facility] [address], [place] [address] Aug, [facility] [place] [facility] [address] [id number], [place] [address] Aug, [facility] [place] [facility] [address], [place] [address] Aug, [facility] [place] [address] [facility] [id number][place] [id number] Jul, [facility] [place] [facility] [address] [facility] [id number], [place] [address] Jul, [facility] [place] [facility] [address] [facility] [id number], [place] [address] Jul, [facility] [place] [address] [facility] [id number][place] [id number] Jul, [facility] [place] [address] [facility] [id number], [place] [id number] Jul, [facility] [place] [address] [facility] [id number], [place] [address] May, [facility] [address] [facility] [id number], [place] [address] Apr, [facility] [place] [address] [id number] [place] [id number] Apr, [facility] [place] [address] [id number] [place] [id number] Apr, [facility] [address] [id number] [place] [address] March, [facility] [place] [address] [id number] [place] [id number] March, [facility] [place] [address] [id number] [place] [id number] March, [facility] [place] [address] [id number] [place] [id number] March, [facility] [place] [address] [id number] [place] [id number] March, [facility] [place] [address] [id number] [place] [id number] March, [facility] [address] [facility] [id number], [place] [address] March, [facility] [address] [facility] [id number], [place] [address] March, [facility] [address] [facility] [id number], [place] [address] Feb, [facility] [place] [address] [id number] [place] [id number] Feb, [facility] [place] [address] [id number] [place] [id number] Feb, [facility] [place] [address] [id number] [place] [id number] Feb, [facility] [address] [facility] [id number], [place] [address] Feb, [facility] [place] [address] [id number] [place] [id number] Feb, [facility] [place] [address] [id number] [place] [address] Jan, [facility] [place] [address] [id number] [place] [address] Jan, [facility] [place] [address] [id number] [place] [address] Dec, [facility] [place] [address] [id number] [place] [id number] Dec, [facility] [address] [facility] [id number] [place] [address] Dec, [facility] [place] [address] [id number] [place] [id number] Dec, [facility] [place] [address] [id number] [place] [id number] Dec, [facility] [place] [address] [id number] [place] [id number] Dec, [facility] [place] [address] [id number] [place] [id number] Dec, [facility] [address] Nov, [facility] [place] [address] [id number] [place] [id number] Nov, [facility] [place] [address] [id number] [place] [id number] Nov, [facility] [place] [address] [id number] [place] [id number] Nov, [facility] [place] [address] [id number] [place] [id number] Nov, [facility] [address] [facility] [id number], [place] 14719482- [address] Oct, [facility] [place] [address] [id number] [place] [id number] Oct, [facility] [place] [address] [id number] [place] [id number] Oct, [facility] [place] [address] [id number], [place] [id number] Oct, [facility] [place] [facility] [address] [facility] [id number] [place] [address] Oct, [facility] [place] [facility] [address] [facility] [id number], [place] [address] Oct, [facility] [place] [facility] [address] [facility] [id number], [place] [address] Oct, [facility] [place] [address] [id number][place] [id number] Sep, [facility] [place] [facility] [address] [facility] [id number] [place] [address]- [address] Sep, [facility] [place] [facility] [address] [id number], [place] [address] Sep, [facility] [place] [address] [id number], [place] [id number] Sep, [facility] [place] [address] [id number], [place] [id number] Sep, [facility] [place] [address] [id number], [place] [id number] Sep, [facility] [place] [facility] [address] [facility] [id number], [place] [address] Sep, [facility] [place] [facility] [address] [facility] [id number], [place] [address] Sep, [facility] [place] [facility] [address] [facility] [id number], [place] [address] Sep, [facility] [place] [address] [id number], [place] [id number] Aug, [facility] [place] [facility] [address] [facility] [id number], [place] [address]1620- [address] Aug, [facility] [place] [address] [facility] [id number], [place] [address]508884 Aug, [facility] [place] [facility] [address] [facility] [id number], [place] [address] Aug, [facility] [address] [id number], [place] [address] Aug, [facility] [place] [address] [id number] [place] [id number] Aug, [facility] [place] [address] [id number] [place] [address]23[place]1908 Aug, [facility] [address] [facility] [id number], [place] [address] Aug, [facility] [place] [address] [id number] [place] [id number] Aug, [facility] [place] [address] [id number] [place] [id number] Jul, [facility] [place] [address] [id number] [place] [id number] Jun, [facility] [place] [address] [id number] [place] [address]43[place]35[address] May, [facility] [place] [address] [id number] [place] [id number] May, [facility] [place] [address] [id number] [place] [id number] May, [facility] [place] [address] [id number] [place] [address]83176459 May, [facility] [place] [address] [id number] [place] [id number] May, [facility] [place] [address] [id number] [place] [id number] May, [facility] [place] [address] [id number] [place] [id number] May, [facility] [place] [address] [id number] [place] [id number] Apr, [facility] [place] [address] [id number] [place] [id number] Apr, [facility] [place] [address] [id number] [place] [id number] Apr, [facility] [place] [address] [id number] [place] [id number] Apr, [facility] [place] [address] [id number] [place] [id number] Apr, [facility] [place] [address] [id number] [place] [id number] Apr, [facility] [place] [address] [id number] [place] [id number] March, [facility] [place] [address] [id number] [place] [address]49004704 March, [facility] [place] [address] [id number] [place] [id number] Feb, [facility] [place] [address] [id number] [place] 755953715 Feb, [facility] [place] [address] [id number] [place] [id number] Feb, [facility] [place] [address] [id number] [place] [id number] Jan, [facility] [place] [address] [id number] [place] 998281582 Jan, [facility] [place] [address] [id number] [place] 385[address]15[address] Jan, [facility] [place] [address] [id number] [place] [id number] Jan, [facility] [place] [address] [id number] [place] [id number] Dec, [facility] [address] [address] Dec, [facility] [place] [address] [id number] [place] [id number] Dec, [facility] [place] [address] [id number] [place] [id number] Nov, [facility] [place] [address] [id number], [place] [address]38994627 Nov, [facility] [place] [address] [id number] [place] [id number] Nov, [facility] [address], [place] [address]- [address]36 Oct, [facility] [place] [facility] [address] [id number] [place] [address] Oct, [facility] [place] [facility] [address] [id number] [place] [address]- 6464 Oct, [facility] [place] [facility] [address] [id number] [place] [address] Aug, [facility] [place] [facility] [address] [id number] [place] [address]- 1973 Aug, [facility] [place] [facility] [address] [id number] [place] [address]- 4525 Aug, [facility] [place] [facility] [address] [id number] [place] [address]- 4786 March, [facility] [place] [facility] [address] [id number] [place] [address]- 6945 Oct, [facility] [place] [facility] [address] [id number] [place] [address]- 5476 Oct, [facility] [place] [facility] [address] [id number] [place] [address]- 8296 Sep, [facility] [place] [facility] [address] [id number] [place] [address]- 9314 Sep, [facility] [place] [facility] [address] [id number], [place] [address]- 6350 Sep, [facility] [place] [facility] [address] [id number], [place] [address]- [address]666 Aug, [facility] [place] [facility] [address] [id number] [place] [address]- 9279 Aug, [facility] [place] [facility] [address] [id number] [place] [address]- 8142 Jun, [facility] [place] [facility] [address] [id number] [place] [address]- 9160 May, [facility] [place] [facility] [address], [place] [address]- [address] Jan, [facility] [address], [place] [address]- [address] Nov, [facility] [address] [facility] [id number], [place] [address]- [address]994 Oct, [facility] [address], [place] [address]- [address]15 Sep, [facility] [address] [facility] [id number], [place] [address]- [address] Sep, [facility] [id number] [place] [address]- [address] Sep, [facility] [address], [place] [address]- 2640 Sep, [facility] [id number] [place] [address]- 7457 Sep, [facility] [address], [place] [address]- 6974 Aug, [facility] [address], [place] [address]- [address]25 Aug, [facility] [address], [place] [address]- [address] Jul, [facility] [address], [place] [address]- [address] Jun, IMMUNIZATIONS No Known Immunizations SOCIAL HISTORY Never Assessed REASON FOR VISIT pain PLAN OF CARE Activity Details Follow Up prn Reason:JAXSON VITAL SIGNS Blood pressure systolic 111 mmHg 2018-01-17 Blood pressure diastolic 55 mmHg 2018-01-17 MEDICATIONS Medication Instructions Dosage Frequency Start Date End Date Duration Status Pen Ballard 31G X 8 MM subcutaneously 2 times a day as directed 12h 03 Dec 90 days Active Pen Ballard 31G/8MM subcutaneously 2 times a day as directed 12h 25 Active Januvia 100MG Orally Once a day TAKE ONE TABLET BY MOUTH ONCE DAILY 24h 90 days Active Lancets 1 subcutaneously 2 times a day test blood sugar 12h Aug, 12 months Active Albuterol Sulfate 90 mcg/actuation Inhalation every 4- 6 hrs prn cough, shortness of breath or wheezing 2 puffs Dec, Active Lisinopril 5 mg Orally Once a day 1 tablet 24h May, 90 days Active Levemir 100 UNIT/ML Subcutaneous 2 times a day inject 50U in am and 50U at HS 12h Dec, 12 months Active Cetirizine HCl 10MG Orally Once a day TAKE ONE TABLET BY MOUTH ONCE DAILY 24h 1 May, 2018 90 days Active Cymbalta 60 mg Orally Once a day 1 capsule 24h 30 Jul, 2015 90 days Active Vitamin B-12 100 MCG Orally Once a day 1 tablet 24h Active Fluticasone Propionate 50MCG/ACT Nasally Once a day 1 spray in each nostril 24h Active Humalog 100 UNIT/ML Subcutaneous 3 times a day 23 units just before meals 8h Aug, 12 months Active Aspirin 81 MG Orally every 2 days 1 tablet 90 days Active Victoza 18MG/3ML Subcutaneous Once a day 1.8mg 24h 18 Nov, 2020 12 months Active True Metrix Meter w/Device Test blood sugar 12h Aug, 12 months Active Levemir 100UNIT Subcutaneous 2 times a day inject 65U in am and 75U at HS 12h 28 Not-Taking True Metrix Blood Glucose Test 1 subcutaneously 2 times a day test blood sugar 12h Aug, 12 months Active Atorvastatin Calcium 40 mg Orally Once a day 1 tablet 24h 90 days Active Gabapentin 400MG Orally at bedtime 1 tablet 90 days Active Multivitamin Adult - Active Insulin Syringe-Needle U-100 28G X 1/2 subcutaneously Once a day as directed 24h Dec, Active Insulin Syringe-Needle U-100 1ML/31G subcutaneously Once a day as directed 24h Active RESULTS No Results PROCEDURES Procedure Date Ordered Result Body Site LTD ORAL EVALUATION - PROBLEM FOCUS January 17, 2018 EXTRAC ERUPTED TOOTH/EXPOSED ROOT January 17, 2018 INSTRUCTIONS MEDICATIONS ADMINISTERED No Known Medications [...] 08/2016 Hospitalization History chest pain ED visit [facility], pt scheduled for heart cath on May Hospitalization History [place] 2012 Hospitalization History Chest pain-[facility] 12/22/16
--- OUTSIDE RECORDS SUMMARY | 2018-11-01 18:41 | XMS REPORT ---
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 Name Role Phone JEANINE CHRISTOPHER Unavailable PROBLEMS Type Condition ICD9-CM Code CUR06-UO Code Onset Dates Condition Status SNOMED Code Problem Other seasonal allergic rhinitis J30.2 Active 509913430 Problem Polyneuropathy associated with underlying disease G63 Active 628960132 Problem Other chronic pain G89.29 Active 33282461 Problem Vitamin D deficiency E55.9 Active 55733215 Problem Recurrent major depressive disorder, in partial remission F33.41 Active 81843562 Problem assisted 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 Active 417405922 Problem Syncope, unspecified syncope type R55 Active 822998018 Problem Stage 2 chronic kidney disease N18.2 Active 049126856 Problem Type 2 diabetes mellitus with diabetic polyneuropathy E11.42 Active 43227348 Problem Episodic mood disorder F39 Active 06241002 Problem Dyslipidemia E78.5 Active 989398787 Problem Serum creatinine raised R79.89 Active 199474262 Problem Lumbago with sciatica, left side M54.42 Active 049090575 Problem Generalized anxiety disorder F41.1 Active 96747543 Problem Lumbago with sciatica, right side M54.41 Active 025394312 ALLERGIES No Information ENCOUNTERS Encounter Location Date Diagnosis [facility] [address] [facility] [id number] [address] Jun, [facility] [address], [place] [address] March, [place] [address] [place] [id number] [address] March, Type 2 diabetes mellitus with diabetic [...] H60.502 and Non-adherence to medical treatment Z91.[address] [id number] [place] [id number] Feb, Dental examination Z01.20 [facility] [address] [address] Feb, Labile hypertension R09.89 ; Syncope, unspecified syncope type R55 ; Chest pain, unspecified type R07.9 and Dyslipidemia E78.5 [place] [address] [address]- [address] Feb, [place] [address] [address]- [address] Jan, [place] [id number] [place] [address] [id number] Jan, Dental examination Z01.20 [place] [address] [address]- [address] Jan, Acute non-recurrent maxillary sinusitis J01.00 and Dyslipidemia E78.5 [address]00565[address] [id number] Jan, Dental examination Z01.20 and Dental caries K02.[id number] [place] [id number] Jan, [id number] [place] [address] [id number] Dec, Dental examination Z01.20 [facility] [address] [place] [id number] [place] [address] Dec, Seasonal allergic rhinitis, unspecified trigger J30.2 [facility] [address] [address]- [address] Nov, [place] [address] [id number] [place] [address]95- 9210 Nov, Type 2 diabetes mellitus with diabetic polyneuropathy E11.42 ; Dyslipidemia E78.5 ; Lumbago with sciatica, right side M54.41 ; Lumbago with sciatica, left side M54.42 ; 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 ; Polyneuropathy associated with underlying disease G63 ; Stage 2 chronic kidney disease N18.2 and Syncope, unspecified syncope type R55 [place] [address] [address]- [address] 14 Oct, 2017 Type 2 diabetes mellitus with diabetic polyneuropathy E11.42 ; Acute otitis externa of left ear, unspecified type H60.502 ; Overweight (BMI 25.0-29.9) E66.3 ; Dyslipidemia E78.5 and Polyneuropathy associated with underlying disease G63 [place] [address] [address]- [address] Sep, [place] [address] [address]- 69[address] Aug, Abnormal mammogram R92.[address] [address]- [address]84 Aug, Type 2 diabetes mellitus with diabetic polyneuropathy E11.42 [place] [address] [id number] [place] [address]04- 5246 Aug, [place] [address] 00[address]- 6[address] Aug, Type 2 diabetes mellitus with diabetic polyneuropathy E11.42 ; Syncope, unspecified syncope type R55 ; Other chronic pain G89.29 and Encounter for immunization Z23 [place] [address] [address]- 9[address] 13 Aug, 2017 Type 2 diabetes mellitus with diabetic polyneuropathy E11.42 [place] [address] 97[address]- 0389 Jul, Type 2 diabetes mellitus with diabetic polyneuropathy E11.42 and Serum creatinine raised R79.89 [place] [address] [place] [id number] [place] [address] 93477- 7211 Jul, Type 2 diabetes mellitus with diabetic polyneuropathy E11.42 and Serum creatinine raised R79.89 [facility] [address] [place] [id number] [place] [address] 41119- 6828 May, [facility] [address] [address]- [address] May, [place] [address] 27042- 8835 May, Facial pain R51 ; Head injury, initial encounter S09.90XA ; Neck pain M54.2 and Fall, initial encounter W19.XXXA [place] [address] 92484- 9746 May, Type 2 diabetes mellitus with diabetic polyneuropathy E11.42 [place] [address] [id number] [place] [address] 59674- 7865 May, [place] [address] [place] [id number] [place] [address] 61120- 8300 May, Type 2 diabetes mellitus with diabetic polyneuropathy E11.42 [place] [address] [place] [id number] [place] [address] 58717- 2032 May, Dyslipidemia E78.5 ; 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 ; Type 2 diabetes mellitus with diabetic polyneuropathy E11.42 ; Generalized anxiety disorder F41.1 and Other seasonal allergic rhinitis J30.2 [place] [address] [address]04- 6089 Apr, Type 2 diabetes mellitus with diabetic polyneuropathy E11.42 [place] [address] [place] [id number] [place] [address] 02672- 6955 March, [place] [address] [address]34- 9[address] March, Abnormal mammogram R92.8 [place] [address], [place] [address] Feb, Abnormal mammogram R92.8 [place] [address], [place] [address] Feb, Diabetes type 2, uncontrolled E11.65 [place] [address] [place] [address] 02816- 9136 Feb, Screening for breast cancer Z12.39 [place] [address] [place] [address] 31218- 1824 Jan, Screening for breast cancer Z12.39 [place] [address] [place] [address] 51218- 8202 Jan, Type 2 diabetes mellitus with diabetic polyneuropathy E11.42 ; 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 ; Other viral agents as the cause of diseases classified elsewhere B97.89 and Acute upper respiratory infection, unspecified J06.9 [place] [address], [place] [address] Jan, [place] [address] [place] [address] 48872- 8431 Dec, Diabetes type 2, uncontrolled E11.65 ; Dyslipidemia E78.5 ; Generalized anxiety disorder F41.1 ; Depression, unspecified depression type F32.9 ; 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 and Polyneuropathy associated with underlying disease G63 [place] [address], [place] [address] Dec, [place] [address] [place] [address] 06256- 1015 Dec, [place] [address], [place] [address]- 8701 Dec, [place] [address] [place] [address] 46987- 1757 02 Dec, 2016 [place] [address] [place] [id number] [place] [address] 92704- 3392 Oct, Well woman exam Z01.419 ; Screening for breast cancer Z12.39 ; assisted 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 ; Type 2 diabetes mellitus without complications E11.9 and Encounter for immunization Z23 [address] [address]- [address]25 Sep, [place] [address] 50343- 5733 Sep, Diabetes type 2, uncontrolled E11.65 ; Dyslipidemia E78.5 and Depression, unspecified depression type F32.9 [place] [address] [place] [id number] [place] [address] 75683- 2813 Aug, Diabetes type 2, uncontrolled E11.65 ; Encounter for immunization Z23 ; Nasal congestion R09.81 and Ear pressure, bilateral H93.8X3 [place] [address] [place] [id number] [place] [address] 93648- 2781 Jul, Eustachian tube dysfunction, left H69.82 [place] [address] [place] [id number] [place] [address] 34412- 3176 Jun, [place] [address] [place] [id number] [place] [address] 50348- 1591 Jun, Hospital discharge follow-up Z09 ; Syncope, unspecified syncope type R55 and Acute suppurative otitis media of left ear without spontaneous rupture of tympanic membrane, recurrence not specified H66.002 [place] [address] [place] [id number] [place] [address] 70834- 1240 May, [place] [address] 88935- 9640 May, [place] [address] [place] [id number] [place] [address] 45417- 3965 May, [place] [address] [place] [address] [address] May, Diabetes type 2, uncontrolled E11.65 ; [...] disturbance G47.9 and Generalized anxiety disorder F41.1 [facility] [address] [place] [id number] [place] [address] 56109- 6428 March, [place] [id number] [place] [address] [id number] March, Syncope, unspecified syncope type R55 and Depression, unspecified depression type F32.9 [facility] [address] [id number] [place] [address] [id number] March, Orthostatic hypotension I95.1 [facility] [address] [place] [address] [id number] [place] [address] [id number] March, [place] [address] [place] [address] 54144- 6481 March, [facility] [address] [id number] [place] [address] [id number] Feb, [facility] [address] [place] [address] AV [id number] [place] [id number] Feb, Dental examination Z01.20 [facility] [id number] [place] [address] [id number] Jan, [facility] [id number] [place] [address] [id number] Jan, [facility] [address] [place] [address] [id number] [place] [address] [id number] Dec, Diabetes type 2, uncontrolled E11.65 [facility] [address] [place] [id number] [place] [address] [id number] Nov, [facility] [id number] [place] [address] [id number] Nov, Encounter for dental examination Z01.20 [facility] [address] [facility] [address] [id number] [place] [id number] Nov, Dental examination Z01.20 [facility] [id number][place] [address] Sep, Diabetes type 2, uncontrolled E11.65 [facility] [address] [facility] [address] [id number] [place] [id number] Sep, Encounter for dental examination Z01.20 and Dental caries, unspecified K02.9 [facility] [id number][place] [id number] Sep, Bipolar 2 disorder F31.81 [facility] [id number] [place] [address] [id number] Aug, [facility] [id number] [place] [address] [id number] Aug, Follow up V67.9 [facility] [address] [address] Jul, Bipolar disorder, unspecified 296.80 [facility] [id number] [place] [address] [id number] Jul, Thyroid enlarged 240.9 and Bipolar disorder, unspecified 296.80 [facility] [id number], [place] [id number] Jun, Diabetes mellitus type 2, uncontrolled 250.02 ; Bipolar disorder, unspecified 296.80 and Rash 782.1 [facility] [id number], [place] [id number] Jun, [facility] [id number][place] [id number] May, Urinary tract infection 599.0 [facility] [id number] [place] [address] [id number] May, Urinary tract infection 599.0 [facility] [id number][place] [id number] May, [facility] [address] [place] [id number] [place] [address] [id number] May, Diabetes mellitus type 2, uncontrolled 250.02 and Pica in adults 307.52 [facility] [address] [id number] [place] [address] [id number] Apr, Follow up V67.9 and Diabetes mellitus type 2, uncontrolled 250.02 [facility] [id number] [place] [address] [id number] Apr, [facility] [address] [address] [id number] [place] [address] 20815- 9266 Apr, [facility] [id number] [place] [address] [id number] Apr, Hyperlipidemia 272.4 [facility] [address] [id number] [place] [address] [id number] March, Diabetes type 2, uncontrolled 250.02 [facility] [place] [address] [address] [id number] [place] [address] [id number] March, Diabetes mellitus type 2, uncontrolled 250.02 [facility] [place] [address] [id number] [place] [address] [id number] March, Diabetes type 2, uncontrolled 250.02 [facility] [id number] [place] [address] [id number] March, [facility] [id number] [place] [address] [id number] March, [facility] [id number] [place] [address] [id number] Feb, [facility] [id number] [place] [address] 81521- 4986 Feb, [facility] [address] [place] [address] 58452- 2546 Feb, [facility] [address] [place] [address] [id number] Jan, [facility] [address] [place] [address] [id number] [address]- 9856 Jan, [facility] [address] [id number] [place] [address] 97935- 0986 Jan, [facility] [address] [facility] [id number][place] [id number] Jan, [facility] [place] [facility] [address] [place] [address] [id number] [address]- 6349 Jan, [facility] [place] [facility] [address] [place] [address] [id number] [place] [address]- 2084 Jan, [facility] [address] [facility] [id number][place] [id number] Jan, [facility] [place] [facility] [address] [facility] [id number] [place] [address]- 6046 Jan, [facility] [place] [facility] [address] [place] [address]- 1831 Dec, [facility] [address] [place] [id number][place] [id number] Dec, [facility] [place] [facility] [address]100[place], [place] [address]- 8826 Dec, [facility] [address] [place] [id number], [place] [id number] Dec, [facility] [place] [facility] [address], [place] [address]- 4423 Dec, [facility] [address] [place] [id number][place] [id number] Dec, [facility] [place] [facility] [address], [place] [address]- 1776 Dec, [facility] [place] [facility] [address] [address] [id number], [place] [address]- 2776 Dec, [facility] [address] [id number], [place] [id number] Dec, [facility] [address] [facility] [id number], [place] [id number] Dec, [facility] [place] [facility] [address] [address] [id number] [address]- 4593 Dec, [facility] [place] [facility] [address] [facility] [id number] [address]- 7409 Nov, [facility] [place] [facility] [address] [facility] [id number] [address]- 3068 Oct, [facility] [place] [facility] [address] [facility] [id number] [address]- 9913 Oct, [facility] [address] [facility] [id number], [place] [id number] Sep, [facility] [place] [facility] [address] [facility] [id number], [place] [address]- 4866 Sep, [facility] [address] [id number], [place] [id number] Sep, [facility] [place] [facility] [address] [facility] [id number] [address]- 3929 Sep, [facility] [address] [facility] [id number], [place] [id number] Aug, [facility] [place] [facility] [address] [facility] [id number] [address]- 7563 Aug, [facility] [address] [facility] [id number], [place] [id number] Aug, [facility] [place] [facility] [address] [facility] [id number][place] [address]- 4094 Aug, [facility] [place] [facility] [address] [facility] [id number] [address]- 9212 Jul, [facility] [place] [facility] [address] [facility] [id number] [address]- 0157 Jul, [facility] [address] [id number], [place] [id number] Jul, [facility] [place] [facility] [address] [facility] [id number], [place] [address] 2546 Jul, [facility] [address] [id number], [place] 816824494 Jun, [facility] [address] [id number], [place] [id number] Jun, [facility] [place] [facility] [address] [id number] [place] [address]- 4027 Jun, [facility] [place] [facility] [address] [id number] [place] [address]- 3696 Jun, [facility] [address] [id number] [place] [id number] Jun, [facility] [place] [facility] [address] [id number] [place] [address]- 0115 Jun, [facility] [address] [id number] [place] [id number] May, [facility] [place] [facility] [address] [id number] [place] [address]- 7016 May, [facility] [place] [facility] [address] [facility] [id number] [place] [address]- 9884 Apr, [facility] [place] [facility] [address] [id number] [place] [address]- 9312 Apr, [facility] [address] [id number], [place] [id number] Apr, [facility] [place] [facility] [address] [id number] [place] [address]- 5868 Apr, [facility] [place] [facility] [address] [facility] [id number] [address]- 3207 Apr, [facility] [address] [id number], [place] [id number] March, [facility] [place] [facility] [address] [id number] [place] [address]- 7106 March, [facility] [place] [facility] [address] [id number] [place] [address]- 9126 March, [facility] [address] [id number], [place] [id number] March, [facility] [place] [facility] [address] [id number] [place] [address]- 7926 March, [facility] [address] [facility] [id number] [place] [id number] March, [facility] [place] [facility] [address] [facility] [id number] [place] [address]- 2546 March, [facility] [address] [facility] [id number], [place] [id number] Feb, [facility] [place] [facility] [address] [place] [address]- 6776 Feb, [facility] [place] [facility] [address], [place] [address]- 8956 Jan, [facility] [address] [facility] [id number] [place] [id number] Jan, [facility] [place] [facility] [address] [address]- 9126 Jan, [facility] [place] [facility] [address]100[place] [address]- 5776 Jan, [facility] [address] [id number], [place] [id number] Jan, [facility] [address] [facility] [id number] [place] [id number] Dec, [facility] [place] [facility] [address] [address]- 6426 Dec, [facility] [place] [facility] [address] [id number] [address]- 5966 Dec, [facility] [id number], [place] [id number] Dec, [facility] [place] [facility] [address] [facility] [id number] [address]- 3666 Dec, [facility] [address] [facility] [id number] [place] [id number] Dec, [facility] [place] [facility] [address] [id number] [address]- 3066 Dec, [facility] [place] [facility] [address] [id number] [address]- 9146 Dec, [facility] [address] [id number] [place] [id number] Dec, [facility] [address] [id number] [place] [id number] Nov, [facility] [place] [facility] [address] [facility] [id number], [place] [address] Nov, [facility] [place] [facility] [address] [facility] [id number] [place] [address] Nov, [facility] [address] [id number] [place] [id number] Nov, [facility] [address] [id number] [place] [id number] Oct, [facility] [place] [facility] [address] [facility] [id number], [place] [address] Oct, [facility] [address] [facility] [id number][place] [id number] Oct, [facility] [place] [facility] [address] [facility] [id number] [address] Oct, [facility] [place] [facility] [id number] [address] Oct, [facility] [place] [facility] [id number], [place] [address] Oct, [facility] [address] [facility] [id number][place] [id number] Oct, [facility] [place] [facility] [address] [facility] [id number], [place] [address] Oct, [facility] [place] [facility] [address] [facility] [id number], [place] [address] Sep, [facility] [place] [facility] [address] [facility] [id number][place] [address] Sep, [facility] [address] [facility] [id number][place] [id number] Sep, [facility] [place] [facility] [address] [facility] [id number], [place] [address] Sep, [facility] [place] [facility] [address] [facility] [id number][place] [address] Sep, [facility] [address] [id number][place] [id number] Sep, [facility] [address] [facility] [id number] [place] [id number] Aug, [facility] [place] [facility] [address] [facility] [id number], [place] [address] Aug, [facility] [place] [facility] [address] [facility] [id number], [place] [address] Aug, [facility] [address] [facility] [id number][place] [id number] Aug, [facility] [address] [id number] [id number] Aug, [facility] [place] [facility] [id number] [address] Aug, [facility] [place] [facility] [address] [id number], [place] [address] Aug, [facility] [place] [facility] [id number], [place] [address] Aug, [facility] [address] [id number][place] [id number] Jul, [facility] [place] [facility] [id number], [place] [address] Jul, [facility] [place] [facility] [address] [facility] [id number], [place] [address] Jul, [facility] [address] [facility] [id number][place] [id number] Jul, [facility] [address] [facility] [id number][place] [id number] Jul, [facility] [place] [facility] [address] [facility] [id number], [place] [address] May, [facility] [place] [facility] [address] [facility] [id number] [address] Apr, [facility] [place] [address] [id number] [place] [id number] Apr, [facility] [place] [address] [id number] [place] [id number] Apr, [facility] [address] [id number] [place] [address] March, [facility] [place] [address] [id number] [place] [id number] March, [facility] [place] [address] [id number] [place] [id number] March, [facility] [place] [address] [id number] [place] [id number] March, [facility] [place] [address] [id number] [place] [id number] March, [facility] [address] [id number] [place] [id number] March, [facility] [address] [facility] [id number] [address] March, [facility] [address] [id number] [address] March, [facility] [address] [facility] [id number] [address] Feb, [facility] [place] [address] [id number] [place] [id number] Feb, [facility] [place] [address] [id number] [place] [id number] Feb, [facility] [place] [address] [id number] [place] [id number] Feb, [facility] [address] [facility] [id number][place] [address] Feb, [facility] [place] [address] [id number] [place] [id number] Feb, [facility] [place] [address] [id number] [place] [id number] 14 Jan, 2013 [facility] [place] [address] [id number] [place] [id number] Jan, [facility] [place] [address] [id number] [place] [id number] Dec, [facility] [place] [address] [id number] [place] [id number] Dec, [facility] [address] [facility] [id number][place] [address] Dec, [facility] [place] [address] [id number] [place] [id number] Dec, [facility] [place] [address] [id number] [id number] Dec, [facility] [place] [address] [id number] [place] [id number] Dec, [facility] [place] [address] [id number] [place] [id number] Dec, [facility] [address]00565[address] [address] Nov, [facility] [place] [address] [id number] [place] [id number] Nov, [facility] [place] [address] [id number] [place] [id number] Nov, [facility] [place] [address] [id number] [place] [id number] Nov, [facility] [place] [address] [id number] [place] [id number] Nov, [facility] [address] [facility] [id number][place] [address] Oct, [facility] [place] [address] [id number] [place] [id number] Oct, [facility] [place] [address] [id number] [place] [id number] Oct, [facility] [place] [address] [id number] [place] [id number] Oct, [facility] [address]65[address] [address] Oct, [facility] [place] [facility] [address] [facility] [id number], [place] [address] Oct, [facility] [place] [facility] [address] [facility] [id number] [address] Oct, [facility] [place] [address] [facility] [id number][place] [id number] Sep, [facility] [place] [facility] [address] [facility] [id number], [place] [address] Sep, [facility] [place] [facility] [address] [facility] [id number] [place] [address] Sep, [facility] [place] [address] [facility] [id number][place] [id number] Sep, [facility] [place] [id number] [place] [id number] Sep, [facility] [place] [id number] [place] [id number] Sep, [facility] [place] [facility] [address] [facility] [id number], [place] [address] Sep, [facility] [place] [facility] [address] [facility] [id number], [place] [address] Sep, [facility] [place] [facility] [address] [facility] [id number], [place] [address] Sep, [facility] [place] [address] [facility] [id number], [place] [id number] Aug, [facility] [place] [facility] [address] [facility] [id number], [place] [address] Aug, [facility] [place] [address] [facility] [id number], [place] [id number] Aug, [facility] [place] [facility] [address] [facility] [id number], [place] [address] Aug, [facility] [place] [facility] [address] [facility] [id number], [place] [address] Aug, [facility] [place] [address] [id number] [place] [id number] Aug, [facility] [place] [address] [id number] [place] [id number] Aug, [facility] [address] [id number] [place] [address] Aug, [facility] [place] [address] [id number] [place] [id number] Aug, [facility] [place] [address] [id number] [place] [id number] Jul, [facility] [place] [address] [id number] [place]23[place] Jun, [facility] [place] [address] [id number] [place] [id number] May, [facility] [place] [address] [id number] [place] [id number] May, [facility] [place] [address] [id number] [place] [id number] May, [facility] [place] [address] [id number] [id number] May, [facility] [place] [address] [id number] [place] [id number] May, [facility] [place] [address] [id number] [place] [id number] May, [facility] [place] [address] [id number] [place] [id number] May, [facility] [place] [address] [id number] [place] [id number] Apr, [facility] [place] [address] [id number] [place] [id number] Apr, [facility] [place] [address] [id number] [place] [id number] Apr, [facility] [place] [address] [id number] [place] 975562551 Apr, [facility] [place] [address] [id number] [place] [id number] Apr, [facility] [place] [address] [id number] [place] [id number] Apr, [facility] [place] [address] [id number] [place] [id number] March, [facility] [place] [address] [id number] [place] [id number] March, [facility] [place] [address] [id number] [place] [id number] Feb, [facility] [place] [address] [id number] [place] [id number] Feb, [facility] [place] [address] [id number] [place] [id number] Feb, [facility] [place] [address] [id number] [place] [id number] Jan, [facility] [place] [address] [id number] [place] [id number] Jan, [facility] [place] [address] [id number] [place] [id number] Jan, [facility] [place] [address] [id number] [place] [id number] Jan, [facility] [place] [address] [id number] [place] [id number] Dec, [facility] [address]00565100[place], [place] [address] Dec, [facility] [place] [address] [id number] [place] [id number] Dec, [facility] [place] [address] [id number] [place] [id number] Nov, [facility] [place] [address] [id number][place] [id number] Nov, [facility] [place] [address] [id number] [id number] Nov, [facility] [address]65100[place] Oct, [facility] [id number] [place] [address]- [address] Oct, [facility] [place] [facility] [address] [id number] [place] [address]- [address]88 Oct, [facility] [place] [facility] [address] [id number] [place] [address]- [address] Aug, [facility] [place] [facility] [address] [id number] [place] [address]- 7717 Aug, [facility] [place] [facility] [address] [id number] [place] [address]- 1632 Aug, [facility] [place] [facility] [address] [id number] [place] [address]- [address] March, [facility] [place] [facility] [address] [id number] [place] [address]- [address]22 Oct, [facility] [place] [facility] [address] [id number] [place] [address]- 5111 Oct, [facility] [place] [facility] [address] [id number] [place] [address]- 4827 Sep, [facility] [place] [facility] [address] [id number] [place] [address]- 6477 Sep, [facility] [place] [facility] [address] [id number] [place] [address]- [address] Sep, [facility] [place] [facility] [address] [id number] [place] [address]- [address]60 Aug, [facility] [place] [facility] [address] [id number] [place] [address]- 0011 Aug, [facility] [place] [facility] [address] [id number] [place] [address]- 1752 Jun, [facility] [place] [facility] [address] [id number] [place] [address]- 8866 May, [facility] [place] [facility] [address] [id number] [place] [address]- 5753 Jan, [facility] [place] [facility] [address] [id number], [place] [address]- [address] Nov, [facility] [address] [id number], [place] [address]- [address] Oct, [facility] [address] [facility] [id number], [place] [address]- [address] Sep, [facility] [id number], [place] [address]- [address] Sep, [facility] [address] [facility] [id number], [place] [address]- [address] Sep, [facility] [address]65[address], [place] [address]- [address] Sep, [facility] [address]00565100[place], [place] [address]- 9[address] Sep, [facility] [id number], [place] [address]- [address] Aug, [facility] [id number], [place] [address]- [address] Aug, [facility] [address] [id number], [place] [address]- [address] Jul, [facility] [address] [id number], [place] [address]- [address] Jun, IMMUNIZATIONS No Known Immunizations SOCIAL HISTORY Never Assessed REASON FOR VISIT dental appointment PLAN OF CARE VITAL SIGNS MEDICATIONS Unknown [...] History Ana QUEEN 2012 Hospitalization History Chest pain-[facility] 12/22/16
--- OUTSIDE RECORDS SUMMARY | 2018-11-01 18:44 | XMS REPORT ---
Author Author OSWALDO ALTAMIRANO Organization [facility] Address [address] [place] [address] Care Team Providers Care Major Assembler Name Role Phone ALTAMIRANOOSWALDO Antonio Unavailable PROBLEMS Type Condition ICD9-CM Code SYC72-OF Code Onset Dates Condition Status SNOMED Code Problem Other seasonal allergic rhinitis J30.2 Active 850518506 Problem Polyneuropathy associated with underlying disease G63 Active 307175970 Problem Other chronic pain G89.29 Active 97072749 Problem Vitamin D deficiency E55.9 Active 17452586 Problem Recurrent major depressive disorder, in partial remission F33.41 Active 90729295 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 502535913 Problem Syncope, unspecified syncope type R55 Active 916506245 Problem Stage 2 chronic kidney disease N18.2 Active 028503773 Problem Type 2 diabetes mellitus with diabetic polyneuropathy E11.42 Active 58259340 Problem Episodic mood disorder F39 Active 14058508 Problem Dyslipidemia E78.5 Active 781854605 Problem Serum creatinine raised R79.89 Active 039894191 Problem Lumbago with sciatica, left side M54.42 Active 108093068 Problem Generalized anxiety disorder F41.1 Active 03660360 Problem Lumbago with sciatica, right side M54.41 Active 366872410 ALLERGIES No Information ENCOUNTERS Encounter Location Date Diagnosis [facility] [address] [facility] [id number], [place] [address] March, [facility] [address] [facility] [id number], [place] [address] March, Type 2 diabetes mellitus with diabetic [...] H60.502 and Non-adherence to medical treatment Z91.19 [facility] [address] [place], [place] [id number] [place] [address] [id number] Feb, Dental examination Z01.20 [facility] [address] [place] [id number] [address] 49016- 8036 Feb, Labile hypertension R09.89 ; Syncope, unspecified syncope type R55 ; Chest pain, unspecified type R07.9 and Dyslipidemia E78.5 [place] [address] [address]- 4249 Feb, [place] [address] 7[address]60- 1252 Jan, [id number] [place] [address] [id number] Jan, Dental examination Z01.20 [facility] [id number] [address] 62099- 3642 Jan, Acute non-recurrent maxillary sinusitis J01.00 and Dyslipidemia E78.5 [place] [id number] [place] [address] [id number] Jan, Dental examination Z01.20 and Dental caries K02.9 [address] [id number] Jan, [place] [id number] [place] [address] [id number] Dec, Dental examination Z01.20 [facility] [id number] [address] 42371 -2279 Dec, Seasonal allergic rhinitis, unspecified trigger J30.2 [facility] [id number] [address] 67050- 8183 Nov, [facility] [address] [address]- 9471 Nov, Type 2 diabetes mellitus with diabetic polyneuropathy E11.42 ; Dyslipidemia E78.5 ; Lumbago with sciatica, right side M54.41 ; Lumbago with sciatica, left side M54.42 ; half-way 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 ; Polyneuropathy associated with underlying disease G63 ; Stage 2 chronic kidney disease N18.2 and Syncope, unspecified syncope type R55 [place] [address] [address]- 8243 Oct, Type 2 diabetes mellitus with diabetic polyneuropathy E11.42 ; Acute otitis externa of left ear, unspecified type H60.502 ; Overweight (BMI 25.0-29.9) E66.3 ; Dyslipidemia E78.5 and Polyneuropathy associated with underlying disease G63 [place] [address] 94222- 9867 Sep, [place] [address] 69596- 2522 Aug, Abnormal mammogram R92.8 [place] [address] 33866- 0585 Aug, Type 2 diabetes mellitus with diabetic polyneuropathy E11.42 [place] [address] 33052- 9932 Aug, [place] [address] [place] [id number] [place] [address] 20914- 4442 Aug, Type 2 diabetes mellitus with diabetic polyneuropathy E11.42 ; Syncope, unspecified syncope type R55 ; Other chronic pain G89.29 and Encounter for immunization Z23 [place] [address] 28499- 8700 Aug, Type 2 diabetes mellitus with diabetic polyneuropathy E11.42 [place] [address] [place] [id number] [place] [address] 11187- 2455 12 Jul, 2017 Type 2 diabetes mellitus with diabetic polyneuropathy E11.42 and Serum creatinine raised R79.89 [place] [address] [place] [id number] [place] [address] 67252- 9916 Jul, Type 2 diabetes mellitus with diabetic polyneuropathy E11.42 and Serum creatinine raised R79.89 [place] [address] [place] [id number] [place] [address] 68036- 7481 May, [place] [address] [place] [id number] [address] 17170- 4197 May, [place] [address] [place] [id number] [place] [address] 60341- 3391 May, Head injury, initial encounter S09.90XA ; Facial pain R51 ; Neck pain M54.2 and Fall, initial encounter W19.XXXA [place] [address] [id number] [place] [address] 82427- 0755 May, Type 2 diabetes mellitus with diabetic polyneuropathy E11.42 [place] [address] [place] [id number] [place] [address] 24638- 9042 May, [place] [address] [place] [id number] [address] 92873- 8044 May, Type 2 diabetes mellitus with diabetic polyneuropathy E11.42 [place] [address] [place] [id number] [place] [address] 10253- 7396 May, Dyslipidemia E78.5 ; 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 ; Type 2 diabetes mellitus with diabetic polyneuropathy E11.42 ; Generalized anxiety disorder F41.1 and Other seasonal allergic rhinitis J30.2 [place] [address] [place] [address] 82075- 9220 Apr, Type 2 diabetes mellitus with diabetic polyneuropathy E11.42 [place] [address] [place] [id number] [address] 30002- 8513 March, [place] [address] [place] [id number] [address] 50796- 7282 March, Abnormal mammogram R92.8 [place] [address] [place] [id number] [place] [address] 77633- 5658 Feb, Abnormal mammogram R92.8 [place] [address], [place] [address] 1739 Feb, Diabetes type 2, uncontrolled E11.65 [place] [address], [place] [address] 83[address] Feb, Screening for breast cancer Z12.39 [place] [address] [place] [id number] [place] [address] 07536- 8459 Jan, Screening for breast cancer Z12.39 [place] [address] [place] [address] 07859- 3165 Jan, Type 2 diabetes mellitus with diabetic polyneuropathy E11.42 ; half-way 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 ; Other viral agents as the cause of diseases classified elsewhere B97.89 and Acute upper respiratory infection, unspecified J06.9 [place] [address]005[address], [place] [address] 7[address] Jan, [place] [address], [place] [address]- 6353 Dec, Diabetes type 2, uncontrolled E11.65 ; Dyslipidemia E78.5 ; Generalized anxiety disorder F41.1 ; Depression, unspecified depression type F32.9 ; half-way 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 and Polyneuropathy associated with underlying disease G63 [place] [address], [place] [address]- 5110 Dec, [place] [address], [place] [address]- 8780 Dec, [place] [address]- 0203 Dec, [place] [address], [place] [address]- 5053 Dec, [place] [address], [place] [address]- 7810 Oct, Well woman exam Z01.419 ; Screening for breast cancer Z12.39 ; half-way 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 ; Type 2 diabetes mellitus without complications E11.9 and Encounter for immunization Z23 [place] [address] [place] [id number] [place] [address] 66468- 6772 Sep, [place] [address] 65382- 4794 Sep, Diabetes type 2, uncontrolled E11.65 ; Dyslipidemia E78.5 and Depression, unspecified depression type F32.9 [place] [address] [place] [address] [place] [address] 44212- 6433 Aug, Diabetes type 2, uncontrolled E11.65 ; Encounter for immunization Z23 ; Nasal congestion R09.81 and Ear pressure, bilateral H93.8X3 [address] [address]76- 2768 Jul, Eustachian tube dysfunction, left H69.82 [place] [address] [place] [id number] [place] [address] 19182- 6736 Jun, [place] [address] 86531- 5812 Jun, Hospital discharge follow-up Z09 ; Syncope, unspecified syncope type R55 and Acute suppurative otitis media of left ear without spontaneous rupture of tympanic membrane, recurrence not specified H66.002 [place] [address] [place] [id number] [place] [address] 78977- 5498 May, [place] [address] [place] [id number] [address] 70245- 0459 May, [place] [address] 71484- 2533 May, [place] [address] [place] [id number] [place] [address] 09284- 8605 May, Diabetes type 2, uncontrolled E11.65 ; [...] disturbance G47.9 and Generalized anxiety disorder F41.1 [place] [address] [place] [id number] [place] [address] 54318- 2546 March, [place] [id number] [place] [address] [id number] March, Syncope, unspecified syncope type R55 and Depression, unspecified depression type F32.9 [place] [id number] [place] [address] [id number] March, Orthostatic hypotension I95.1 [place] [id number] [place] [address] [id number] March, [place] [address] [place] [id number] [place] [address] 27153- 2546 March, [place] [id number] [place] [address] [id number] Feb, [id number] [place] [address] [id number] Feb, Dental examination Z01.20 [address] [place] [address] [id number] Jan, [place] [id number] [place] [address] [id number] Jan, [address] [place] [address] [id number] Dec, Diabetes type 2, uncontrolled E11.65 [place] [id number] [place] [address] [id number] Nov, [facility] [address] [place] [address] [id number] [place] [address] [id number] Nov, Encounter for dental examination Z01.20 [facility] [id number] [place] [address] [id number] Nov, Dental examination Z01.20 [facility] [place] [address] [facility] [id number][place] [id number] Sep, Diabetes type 2, uncontrolled E11.65 [facility] [address] [facility] [address] [id number] [id number] Sep, Encounter for dental examination Z01.20 and Dental caries, unspecified K02.9 [facility] [place] [address] [id number] [id number] Sep, Bipolar 2 disorder F31.81 [facility] [place] [id number][place] [id number] Aug, [facility] [place] [id number], [place] [id number] Aug, Follow up V67.9 [facility] [address] [address]- 6987 Jul, Bipolar disorder, unspecified 296.80 [facility] [place] [id number], [place] [id number] Jul, Thyroid enlarged 240.9 and Bipolar disorder, unspecified 296.80 [facility] [place] [id number], [place] [id number] Jun, Diabetes mellitus type 2, uncontrolled 250.02 ; Bipolar disorder, unspecified 296.80 and Rash 782.1 [facility] [place] [address] [facility] [id number][place] [id number] Jun, [facility] [place] [id number], [place] [id number] May, Urinary tract infection 599.0 [facility] [place] [address] [id number][place] [id number] May, Urinary tract infection 599.0 [facility] [place] [address] [id number][place] [id number] May, [facility] [place] [id number], [place] 383[address] May, Diabetes mellitus type 2, uncontrolled 250.02 and Pica in adults 307.52 [facility] [place] [id number][place] [id number] Apr, Follow up V67.9 and Diabetes mellitus type 2, uncontrolled 250.02 [facility] [id number] [place] [address] [id number] Apr, [facility] [address] [id number] [address]- 6226 Apr, [facility] [id number] [place] [address] [id number] Apr, Hyperlipidemia 272.4 [facility] [address] [place] [id number] [place] [address] [id number] March, Diabetes type 2, uncontrolled 250.02 [facility] [address] [place] [id number] [place] [address] [id number] March, Diabetes mellitus type 2, uncontrolled 250.02 [facility] [address] [place] [id number] [place] [address] [id number] March, Diabetes type 2, uncontrolled 250.02 [facility] [address] [place] [id number] [place] [address] [id number] March, [facility] [id number] [place] [address] [id number] March, [facility] [id number] [place] [address] [id number] Feb, [facility] [address]00565[address], [place] [address]- 7859 Feb, [facility] [place] [facility] [address]00565100[place], [place] [address]- 3754 Feb, [facility] [address] [place] [id number], [place] [id number] Jan, [facility] [address] [place] [id number] [place] [address] 21103- 7048 Jan, [facility] [place] [facility] [address]00565[address], [place] [address]- 5319 Jan, [facility] [address] [place] [id number], [place] [id number] Jan, [facility] [place] [facility] [address] [facility] [id number] [address]- 2173 Jan, [facility] [place] [facility] [address] [facility] [id number], [place] [address]- 9899 Jan, [facility] [address] [place] [id number], [place] [id number] Jan, [facility] [place] [facility] [address]005[address]100[place], [place] [address]- 0804 Jan, [facility] [place] [facility] [address] [place] [id number], [place] [address]- 2538 Dec, [facility] [address] [place] [id number], [place] [id number] Dec, [facility] [place] [facility] [address]005[address], [place] [address]- 4120 Dec, [facility] [id number], [place] [id number] Dec, [facility] [place] [facility] [address]00565[address], [place] [address]- 5040 Dec, [facility] [id number], [place] 8449[address] Dec, [facility] [place] [facility] [address]00565[address], [place] [address]- 7075 Dec, [facility] [place] [facility] [address] [place] [id number], [place] [address]- 1399 Dec, [facility] [address] [place] [id number], [place] [id number] Dec, [facility] [address] [place] [id number], [place] [id number] Dec, [facility] [place] [facility] [address]005[address], [place] [address]- 6898 Dec, [facility] [place] [facility] [address] [place] [id number], [place] [address]- 7585 Nov, [facility] [place] [facility] [address]00565[address], [place] [address]- 6174 Oct, [facility] [address] [facility] [id number], [place] [address]- 5965 Oct, [facility] [address] [facility] [id number], [place] [address] Sep, [facility] [place] [facility] [address] [facility] [id number], [place] [address]- 0026 Sep, [facility] [address] [facility] [id number], [place] 367628692 Sep, [facility] [address] [facility] [id number], [place] [address]- 4790 Sep, [facility] [address] [facility] [id number], [place] [address] Aug, [facility] [place] [facility] [address]005[address], [place] [address]- 6606 Aug, [facility] [address] [place] [id number][place] [id number] Aug, [facility] [place] [facility] [address] [place] [id number], [place] [address]- 5124 Aug, [facility] [place] [facility] [address]005[address], [place] [address]- 8558 Jul, [facility] [place] [facility] [address]005[address], [place] [address]- 6258 Jul, [facility] [address] [facility] [id number], [place] [id number] Jul, [facility] [place] [facility] [address] [facility] [id number], [place] [address]- 0852 Jul, [facility] [address] [facility] [id number], [place] [id number] Jun, [facility] [address] [facility] [id number], [place] [id number] Jun, [facility] [place] [facility] [address] [facility] [id number], [place] [address]- 8748 Jun, [facility] [place] [facility] [address] [id number], [place] [address]- 6740 Jun, [facility] [address] [facility] [id number] [place] [id number] Jun, [facility] [place] [facility] [address] [facility] [id number] [place] [address]- 1326 Jun, [facility] [address] [facility] [id number] [place] [id number] May, [facility] [place] [facility] [address] [facility] [id number] [place] [address]- 6347 May, [facility] [place] [facility] [address] [facility] [id number] [place] [address]- 0441 Apr, [facility] [place] [facility] [address] [facility] [id number] [place] [address]- 9397 Apr, [facility] [address] [facility] [id number][place] [id number] Apr, [facility] [place] [facility] [address] [facility] [id number] [place] [address]- 1991 Apr, [facility] [place] [facility] [address] [facility] [id number], [place] [address]- 2676 Apr, [facility] [address] [facility] [id number][place] [id number] March, [facility] [place] [facility] [address] [facility] [id number], [place] [address]- 3796 March, [facility] [place] [facility] [address] [facility] [id number], [place] [address]- 5452 March, [facility] [address] [facility] [id number] [place] [id number] March, [facility] [place] [facility] [address] [facility] [id number], [place] [address]- 9796 March, [facility] [address] [facility] [id number] [place] [id number] March, [facility] [place] [facility] [address] [facility] [id number], [place] [address] 2546 March, [facility] [address] [id number] [place] [address]297[address] Feb, [facility] [place] [facility] [address] [facility] [id number] [place] [address]- 2546 Feb, [facility] [place] [facility] [address] [facility] [id number] [place] [address]- 2546 Jan, [facility] [address] [id number] [place] [address] Jan, [facility] [place] [facility] [address] [facility] [id number] [place] [address]- 2546 Jan, [facility] [place] [facility] [address] [facility] [id number] [place] [address]- 2546 Jan, [facility] [address] [facility] [id number] [place] [address] Jan, [facility] [address] [facility] [id number], [place] [id number] Dec, [facility] [place] [facility] [address] [facility] [id number], [place] [address]- 3216 Dec, [facility] [place] [facility] [address] [facility] [id number], [place] [address]- 2546 Dec, [facility] [address] [facility] [id number], [place] [id number] Dec, [facility] [place] [facility] [address] [place] [id number], [place] [address]- 2546 Dec, [facility] [address] [facility] [id number], [place] [id number] Dec, [facility] [place] [facility] [address] [facility] [id number], [place] [address]- 2546 Dec, [facility] [place] [facility] [address] [facility] [id number], [place] [address]- 2546 Dec, [facility] [address] [facility] [id number], [place] [id number] Dec, [facility] [address] [facility] [id number] [place] [id number] Nov, [facility] [address] [facility] [id number], [place] [address]- 4498 Nov, [facility] [place] [facility] [address] [facility] [id number] [place] [address]- 2546 Nov, [facility] [address] [facility] [id number] [place] [id number] Nov, [facility] [address] [facility] [id number] [place] [id number] Oct, [facility] [place] [facility] [address] [id number], [place] [address] Oct, [facility] [address] [facility] [id number][place] [id number] Oct, [facility] [place] [facility] [id number], [place] [address] Oct, [facility] [place] [facility] [address] [facility] [id number] Oct, [facility] [place] [facility] [address] [facility] [id number], [place] [address] Oct, [facility] [address] [id number] [id number] Oct, [facility] [place] [facility] [id number] [address] Oct, [facility] [place] [facility] [address] [facility] [id number], [place] [address] Sep, [facility] [place] [facility] [address] [facility] [id number], [place] [address] Sep, [facility] [address] [facility] [id number][place] [id number] Sep, [facility] [place] [facility] [address] [facility] [id number], [place] [address] Sep, [facility] [place] [facility] [address] [id number], [place] [address] Sep, [facility] [address] [id number] [place] [id number] Sep, [facility] [address] [id number] [place] [id number] Aug, [facility] [address] [id number] [place] [address] Aug, [facility] [place] [facility] [address] [id number] [place] [address] Aug, [facility] [address] [id number] [place] [id number] Aug, [facility] [address] [id number] [place] [id number] Aug, [facility] [address] [facility] [id number], [place] [address] Aug, [facility] [place] [facility] [address] [facility] [id number], [place] [address] Aug, [facility] [address] [facility] [id number], [place] [address] Aug, [facility] [address] [id number] [place] [id number] Jul, [facility] [place] [facility] [address] [facility] [id number], [place] [address] Jul, [facility] [place] [facility] [address] [facility] [id number], [place] [address] Jul, [facility] [address] [id number][place] [id number] Jul, [facility] [address] [id number] [place] [id number] Jul, [facility] [place] [facility] [address] [facility] [id number], [place] [address] May, [facility] [place] [facility] [address] [facility] [id number], [place] [address] Apr, [facility] [address] [id number] [place] [id number] Apr, [facility] [address] [id number] [place] [id number] Apr, [facility] [address] [facility] [id number], [place] [address] March, [facility] [address] [id number] [place] [id number] March, [facility] [address] [id number] [place] [id number] March, [facility] [address] [id number] [place] [id number] March, [facility] [address] [id number] [place] [id number] March, [facility] [address] [id number] [place] [id number] March, [facility] [facility] [id number], [place] [address] March, [facility] [address] [facility] [id number], [place] [address] March, [facility] [address] [facility] [id number], [place] [address] Feb, [facility] [place] [address] [id number] [place] [id number] Feb, [facility] [place] [address] [id number] [id number] Feb, [facility] [place] [address] [id number] [place] [id number] Feb, [facility] [place] [facility] [address] [facility] [id number] [place] [address] Feb, [facility] [place] [address] [id number] [place] [id number] Feb, [facility] [place] [address] [id number] [place] [address] Jan, [facility] [place] [address] [id number] [place] [address] Jan, [facility] [place] [address] [id number] [place] [address] Dec, [facility] [place] [address] [id number] [place] [id number] Dec, [facility] [address] [facility] [id number], [place] [address] Dec, [facility] [place] [address] [id number] [place] [address] Dec, [facility] [place] [address] [id number] [place] [address] Dec, [facility] [place] [address] [id number] [place] [address] Dec, [facility] [place] [address] [id number] [place] [id number] Dec, [facility] [id number], [place] [address] Nov, [facility] [place] [address] [id number] [place] [id number] Nov, [facility] [place] [address] [id number] [place] [id number] Nov, [facility] [place] [address] [id number] [place] [address] Nov, [facility] [place] [address] [id number] [place] [address] Nov, [facility] [id number] [address] Oct, [facility] [place] [address] [id number] [place] [id number] Oct, [facility] [place] [address] [id number] [place] [address] Oct, [facility] [place] [address] [id number] [place] [id number] Oct, [facility] [id number] [address] Oct, [facility] [address] [id number], [place] [address] Oct, [facility] [place] [facility] [address] [id number], [place] [address] Oct, [facility] [place] [address] [id number][place] [id number] Sep, [facility] [place] [facility] [address] [facility] [id number], [place] [address] Sep, [facility] [place] [facility] [address] [facility] [id number], [place] [address] Sep, [facility] [place] [address] [id number] [place] [id number] Sep, [facility] [place] [address] [id number][place] [address] Sep, [facility] [place] [address] [facility] [id number][place] [address] Sep, [facility] [place] [facility] [address] [facility] [id number][place] Sep, [facility] [place] [facility] [address] [facility] [id number], [place] [address] Sep, [facility] [place] [facility] [address] [facility] [id number], [place] [address] Sep, [facility] [place] [address] [facility] [id number][place] [address]67 Aug, [facility] [place] [facility] [address] [facility] [id number][place] Aug, [facility] [address] [id number][place] [address]8555 Aug, [facility] [place] [facility] [address] [facility] [id number], [place] [address] Aug, [facility] [place] [facility] [address] [facility] [id number], [place] [address] Aug, [facility] [place] [address] [id number], [place] [id number] Aug, [facility] [place] [address] [id number] [place] [address] Aug, [facility] [address] [facility] [id number] [place] [address] Aug, [facility] [place] [address] [id number] [place] [address] Aug, [facility] [place] [address] [id number] [place] [address] Jul, [facility] [place] [address] [id number] [place] [address]40[place] Jun, [facility] [place] [address] [id number] [place] [address] May, [facility] [place] [address] [id number] [place] [address]14[address] May, [facility] [place] [address] [id number] [place] [id number] May, [facility] [place] [address] [id number] [place] [id number] May, [facility] [place] [address] [id number] [place] [id number] May, [facility] [place] [address] [id number] [place] [id number] May, [facility] [place] [address] [id number] [place]3749[place] May, [facility] [place] [address] [id number] [place] 9[address] Apr, [facility] [place] [address] [id number] [place] [address] Apr, [facility] [place] [address] [id number] [place] [address] Apr, [facility] [place] [address] [id number] [place] [address] Apr, [facility] [place] [address] [id number] [place] [id number] Apr, [facility] [place] [address] [id number] [place] 829856432 Apr, [facility] [place] [address] [id number] [place] 2517[place] March, [facility] [place] [address] [id number] [place] 3[place]572 March, [facility] [place] [address] [id number] [place] [address]58[place]8840 Feb, [facility] [place] [address] [id number] [place] 111[place]4477 Feb, [facility] [place] [address] [id number] [place] 238[place]2063 Feb, [facility] [place] [address] [id number] [place] [address] Jan, [facility] [place] [address] [id number] [place] [address] Jan, [facility] [place] [address] [id number] [place] 575[address] Jan, [facility] [place] [address] [id number] [place] [id number] Jan, [facility] [place] [address] [id number] [place] [address] Dec, [facility] [address] [facility] [id number], [place] [address] Dec, [facility] [place] [address] [id number] [place] [address]25[place]290 Dec, [facility] [place] [address] [id number] [place] [address]47[place] Nov, [facility] [place] [address] [id number] [place] Nov, [facility] [place] [address] [id number] [place] 459[address]3925 Nov, [facility] [id number] [id number]- [address]14 Oct, [facility] [place] [facility] [id number] [place] [address] 00[address]66- [address] Oct, [facility] [id number], [place] [address]- [address] Oct, [facility] [place] [facility] [address] [id number] [place] [address]- [address] Aug, [facility] [place] [facility] [address] [id number] [place] [address]- [address] Aug, [facility] [place] [facility] [address] [id number] [place] [address]- [address] Aug, [facility] [place] [facility] [address] [id number] [place] [address]- [address] March, [facility] [place] [facility] [address] [id number] [place] [address]- [address]894 Oct, [facility] [place] [facility] [address] [id number] [place] [address] Oct, [facility] [place] [facility] [address] [id number] [place] [address]- [address] Sep, [facility] [place] [facility] [address] [id number] [place] [address]- [address] Sep, [facility] [place] [facility] [address] [id number] [place] [address]- [address] Sep, [facility] [place] [facility] [address] [id number] [place] [address]- [address] Aug, [facility] [place] [facility] [address] [id number] [place] [address]- [address] Aug, [facility] [place] [facility] [address] [id number] [place] [address]- [address] Jun, [facility] [place] [facility] [address] [id number] [place] [address]- [address] May, [facility] [place] [facility] [address] [id number] [place] [address]- [address]25 Jan, [facility] [place] [facility] [address] [id number] [place] [address] 2546 Nov, [facility] [place] [facility] [address] [id number] [place] [address] [address] Oct, [facility] [address] [id number], [place] [address]- [address] Sep, [facility] [address] [facility] [id number], [place] [address]- [address] Sep, [facility] [address] [id number], [place] [address]- [address] Sep, [facility] [id number], [place] [address]- [address] Sep, [facility] [id number], [place] [address]- [address] Sep, [facility] [id number], [place] Aug, [facility] [id number], [place] [address]- [address] Aug, [facility] [id number], [place] [address]- [address] Jul, [facility] [address] [id number], [place] [address]- [address] Jun, IMMUNIZATIONS No Known Immunizations SOCIAL HISTORY Never Assessed REASON FOR VISIT Other PLAN OF CARE VITAL SIGNS MEDICATIONS Unknown [...] 08/2016 Hospitalization History chest pain ED visit [facility], pt scheduled for heart cath on May [facility] 12/22/16
--- OUTSIDE RECORDS SUMMARY | 2018-11-01 18:47 | XMS REPORT ---
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 Name Role Phone TOREY BANEGAS Unavailable PROBLEMS Type Condition ICD9-CM Code ZOI96-GN Code Onset Dates Condition Status SNOMED Code Problem Other seasonal allergic rhinitis J30.2 Active 693915187 Problem Polyneuropathy associated with underlying disease G63 Active 566425659 Problem Other chronic pain G89.29 Active 41364178 Problem Vitamin D deficiency E55.9 Active 49552294 Problem Recurrent major depressive disorder, in partial remission F33.41 Active 08586570 Problem retirement 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 Active 064121169 Problem Syncope, unspecified syncope type R55 Active 257775819 Problem Stage 2 chronic kidney disease N18.2 Active 542085208 Problem Type 2 diabetes mellitus with diabetic polyneuropathy E11.42 Active 31341931 Problem Episodic mood disorder F39 Active 86646780 Problem Dyslipidemia E78.5 Active 583946116 Problem Serum creatinine raised R79.89 Active 244698163 Problem Lumbago with sciatica, left side M54.42 Active 267964804 Problem Generalized anxiety disorder F41.1 Active 12468449 Problem Lumbago with sciatica, right side M54.41 Active 762079430 ALLERGIES Substance Reaction Event Type Date Status MetFORMIN HCl ER nausea and vomiting Drug Allergy Sep, Active Codeine Phosphate dizziness Drug Allergy Sep, Active metal/crown/watches rash Non Drug Allergy Sep, Active ENCOUNTERS Encounter Location Date Diagnosis [facility] [id number] [address] Nov, [facility] [id number] [address] Sep, [facility] [id number] [address] Sep, Acute maxillary sinusitis, recurrence not specified J01.00 and Bronchiolitis J21.9 [place] [address] [place] [address] 36074- 6159 Jul, [place] [address] [place] [address] 63671- 4584 Jun, Type 2 diabetes mellitus with diabetic polyneuropathy E11.42 ; Open wound T14.8XXA ; 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 ; Stage 2 chronic kidney disease N18.2 and Episodic mood disorder F39 [place] [id number] [place] [address] 47914- 4037 May, [place] [id number] [place] [address] 34017- 3177 March, [id number] [place] [address] 07434- 2741 March, Type 2 diabetes mellitus with diabetic [...] H60.502 and Non-adherence to medical treatment Z91.[address] [id number] [id number] Feb, Dental examination Z01.[address] [place] [address] 89394- 1825 Feb, Labile hypertension R09.89 ; Syncope, unspecified syncope type R55 ; Chest pain, unspecified type R07.9 and Dyslipidemia E78.5 [place] [address] [place] [address] 21707- 0211 Feb, [place] [address] [place] [address] 94805- 7826 Jan, [facility] [address] [facility] [address] [id number] [place] [id number] Jan, Dental examination Z01.20 [place] [id number] [place] [address] 868537- 6447 Jan, Acute non-recurrent maxillary sinusitis J01.00 and Dyslipidemia E78.[address] [id number] [place] [id number] Jan, Dental examination Z01.20 and Dental caries K02.[address] [id number] [place] [id number] Jan, [address] [place] [address] [id number] Dec, Dental examination Z01.20 [facility] [id number] [place] [address] 05487 -9044 Dec, Seasonal allergic rhinitis, unspecified trigger J30.2 [place] [id number] [place] [address] 57511- 9664 Nov, [place] [address] [address]41- 2183 Nov, Type 2 diabetes mellitus with diabetic polyneuropathy E11.42 ; Dyslipidemia E78.5 ; Lumbago with sciatica, right side M54.41 ; Lumbago with sciatica, left side M54.42 ; 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 ; Polyneuropathy associated with underlying disease G63 ; Stage 2 chronic kidney disease N18.2 and Syncope, unspecified syncope type R55 [place] [id number] [place] [address] 00858- 7408 Oct, Type 2 diabetes mellitus with diabetic polyneuropathy E11.42 ; Acute otitis externa of left ear, unspecified type H60.502 ; Overweight (BMI 25.0-29.9) E66.3 ; Dyslipidemia E78.5 and Polyneuropathy associated with underlying disease G63 [place] [address] [place] [address] 1501 Sep, [place] [id number] [place] [address] 41899- 3622 Aug, Abnormal mammogram R92.8 [place] [id number] [place] [address] 58373- 1670 Aug, Type 2 diabetes mellitus with diabetic polyneuropathy E11.42 [place] [id number] [place] [address] 91840- 9618 Aug, [place] [id number] [place] [address] 94410- 8086 Aug, Type 2 diabetes mellitus with diabetic polyneuropathy E11.42 ; Syncope, unspecified syncope type R55 ; Other chronic pain G89.29 and Encounter for immunization Z23 [place] [id number] [place] [address] 86382- 8863 Aug, Type 2 diabetes mellitus with diabetic polyneuropathy E11.42 [place] [id number] [place] [address] 47119- 5416 Jul, Type 2 diabetes mellitus with diabetic polyneuropathy E11.42 and Serum creatinine raised R79.89 [place] [id number] [place] [address] 94415- 7838 Jul, Type 2 diabetes mellitus with diabetic polyneuropathy E11.42 and Serum creatinine raised R79.89 [place] [id number] [place] [address] 27902- 9560 May, [place] [id number] [place] [address] 06034- 3414 May, [place] [id number] [place] [address] 41120- 3858 May, Head injury, initial encounter S09.90XA ; Facial pain R51 ; Neck pain M54.2 and Fall, initial encounter W19.XXXA [place] [id number] [place] [address] 82303- 9006 May, Type 2 diabetes mellitus with diabetic polyneuropathy E11.42 [place] [address] [address] May, [place] [id number] [place] [address] 71509- 6478 May, Type 2 diabetes mellitus with diabetic polyneuropathy E11.42 [place] [id number] [place] [address] 75479- 2923 May, Dyslipidemia E78.5 ; retirement 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 ; Type 2 diabetes mellitus with diabetic polyneuropathy E11.42 ; Generalized anxiety disorder F41.1 and Other seasonal allergic rhinitis J30.2 [place] [address] [address]- 2890 Apr, Type 2 diabetes mellitus with diabetic polyneuropathy E11.42 [place] [id number] [place] [address] 47313- 7361 March, [place] [id number] [place] [address] 83392- 2169 March, Abnormal mammogram R92.8 [place] [address] [place] [address] 24251- 3250 Feb, Abnormal mammogram R92.8 [place] [address] [address]- 3477 Feb, Diabetes type 2, uncontrolled E11.65 [place] [address] [address]- 0969 Feb, Screening for breast cancer Z12.39 [place] [id number] [place] [address] 57400- 1076 Jan, Screening for breast cancer Z12.39 [place] [address] [address]- 9270 Jan, Type 2 diabetes mellitus with diabetic polyneuropathy E11.42 ; retirement 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 ; Other viral agents as the cause of diseases classified elsewhere B97.89 and Acute upper respiratory infection, unspecified J06.9 [place] [id number] [place] [address] 98238- 8464 Jan, [place] [id number] [place] [address] 47990- 9795 Dec, Diabetes type 2, uncontrolled E11.65 ; Dyslipidemia E78.5 ; Generalized anxiety disorder F41.1 ; Depression, unspecified depression type F32.9 ; retirement 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 and Polyneuropathy associated with underlying disease G63 [place] [id number] [place] [address] 48158- 3196 Dec, [place] [id number] [place] [address] 37044- 7591 14 Dec, 2016 [place] [id number] [place] [address] 04032- 1523 Dec, [place] [id number] [place] [address] 53570- 2761 Dec, [place] [id number] [place] [address] 40267- 7840 Oct, Well woman exam Z01.419 ; Screening for breast cancer Z12.39 ; 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 ; Type 2 diabetes mellitus without complications E11.9 and Encounter for immunization Z23 [place] [id number] [place] [address] 58255- 0478 Sep, [place] [id number] [place] [address] 22669- 3482 Sep, Diabetes type 2, uncontrolled E11.65 ; Dyslipidemia E78.5 and Depression, unspecified depression type F32.9 [address] [place] [address] 03375- 8742 Aug, Diabetes type 2, uncontrolled E11.65 ; Encounter for immunization Z23 ; Nasal congestion R09.81 and Ear pressure, bilateral H93.8X3 [place] [id number] [place] [address] 88301- 9007 Jul, Eustachian tube dysfunction, left H69.82 [place] [id number] [place] [address] 91668- 8927 Jun, [place] [id number] [place] [address] 95930- 0741 Jun, Hospital discharge follow-up Z09 ; Syncope, unspecified syncope type R55 and Acute suppurative otitis media of left ear without spontaneous rupture of tympanic membrane, recurrence not specified H66.002 [place] [address] 06450- 1291 May, [place] [id number] [place] [address] 64108- 8840 May, [place] [address] 63335- 9498 May, [place] [id number] [place] [address] 18958- 0652 May, Diabetes type 2, uncontrolled E11.65 ; [...] disturbance G47.9 and Generalized anxiety disorder F41.1 [place] [address] [place] [address] 79445- 8268 March, [address] [place] [address] [id number] March, Syncope, unspecified syncope type R55 and Depression, unspecified depression type F32.9 [facility] [address] [place] [address] [id number] March, Orthostatic hypotension I95.1 [facility] [address] [id number] [place] [id number] March, [facility] [address] [address]- 3747 March, [facility] [address] [id number] [place] [id number] Feb, [facility] [address] [id number] [place] [id number] Feb, Dental examination Z01.20 [facility] [address] [id number] [place] [id number] Jan, [facility] [id number] [place] [address] [id number] Jan, [facility] [address] [id number] [place] [address] Dec, Diabetes type 2, uncontrolled E11.65 [facility] [id number] [place] [address] [id number] Nov, [facility] [address] [id number] [place] [address] Nov, Encounter for dental examination Z01.20 [facility] [address] [id number] [place] [id number] Nov, Dental examination Z01.20 [facility] [address] [id number] [place] [address] Sep, Diabetes type 2, uncontrolled E11.65 [facility] [address] [id number] [place] [address] Sep, Encounter for dental examination Z01.20 and Dental caries, unspecified K02.9 [facility] [address] [id number] [place] [address] Sep, Bipolar 2 disorder F31.81 [facility] [address] [id number] [place] [id number] Aug, [facility] [address] [id number] [place] [address] Aug, Follow up V67.9 [facility] [address] [address]- 6485 Jul, Bipolar disorder, unspecified 296.80 [facility] [id number] [place] [address] [id number] Jul, Thyroid enlarged 240.9 and Bipolar disorder, unspecified 296.80 [facility] [id number] [place] [address] [id number] Jun, Diabetes mellitus type 2, uncontrolled 250.02 ; Bipolar disorder, unspecified 296.80 and Rash 782.1 [facility] [id number] [place] [address] [id number] Jun, [facility] [id number] [place] [address] [id number] May, Urinary tract infection 599.0 [facility] [id number] [place] [address] [id number] May, Urinary tract infection 599.0 [facility] [id number] [place] [address] [id number] May, [facility] [id number] [place] [address] [id number] May, Diabetes mellitus type 2, uncontrolled 250.02 and Pica in adults 307.52 [facility] [id number] [place] [address] [id number] Apr, Follow up V67.9 and Diabetes mellitus type 2, uncontrolled 250.02 [facility] [id number] [place] [id number] Apr, [facility] [id number] [address]- 9581 Apr, [facility] [id number] [place] [address] [id number] Apr, Hyperlipidemia 272.4 [facility] [id number] [place] [address] [id number] March, Diabetes type 2, uncontrolled 250.02 [facility] [id number] [place] [address] [id number] March, Diabetes mellitus type 2, uncontrolled 250.02 [facility] [address] [id number] [place] [id number] March, Diabetes type 2, uncontrolled 250.02 [facility] [id number] [place] 44469[address] March, [facility] [id number] [place] [id number] March, [facility] [id number] [place] [id number] Feb, [facility] [place] [facility] [id number] [place] [address] 91192- 2546 Feb, [facility] [place] [facility] [id number] [place] [address] 47560- 2546 Feb, [facility] [id number] [place] [address] [id number] Jan, [facility] [place] [facility] [id number] [place] [address] 85400- 7306 Jan, [facility] [place] [facility] [address] [address]- 3406 Jan, [facility] [id number] [place] [id number] Jan, [facility] [place] [facility] [id number] [address]- 5966 Jan, [facility] [place] [facility] [address] [address]- 9456 Jan, [facility] [id number] [place] 4256[address] Jan, [facility] [place] [facility] [address] [address]- 2546 Jan, [facility] [place] [facility] [address] [address]- 2546 Dec, [facility] [id number] [place] [id number] Dec, [facility] [place] [facility] [id number] [address]- 7326 Dec, 2014 [facility] [address] [facility] [id number] [place] [id number] Dec, 2014 [facility] [place] [facility] [id number] [address]- 6676 Dec, 2014 [facility] [address] [id number] [place] [id number] Dec, 2014 [facility] [place] [facility] [address] [address]- 8616 Dec, 2014 [facility] [place] [facility] [address] [address]- 5242 Dec, 2014 [facility] [id number] [place] 157624020 Dec, [facility] [id number] [place] [id number] Dec, [facility] [place] [facility] [address] [address]- 4936 Dec, [facility] [place] [facility] [address] [address]- 2712 Nov, [facility] [place] [facility] [address] [address]- 8910 Oct, [facility] [place] [facility] [address] [address]- 6374 Oct, [facility] [address] [id number] [place] 847607103 Sep, [facility] [place] [facility] [id number] [address]- 5846 Sep, [facility] [id number] [place] 148797499 Sep, [facility] [place] [facility] [address] [address]- 2546 Sep, [facility] [id number] [place] 375[address] Aug, [facility] [place] [facility] [address] [id number] [place] [address]- 5533 Aug, [facility] [address] [facility] [id number] [place] [id number] Aug, [facility] [place] [facility] [address] [id number] [place] [address]- 7369 Aug, [facility] [place] [facility] [address] [facility] [id number] [place] [address]- 9550 Jul, [facility] [place] [facility] [address] [id number] [place] [address]- 1813 Jul, [facility] [address] [facility] [id number] [place] [id number] Jul, [facility] [place] [facility] [address] [facility] [id number] [address]- 9847 Jul, [facility] [address] [facility] [id number] [place] 189080929 Jun, [facility] [address] [facility] [id number] [place] [id number] Jun, [facility] [place] [facility] [id number] [place] [address]- 6997 Jun, [facility] [place] [facility] [address] [facility] [id number] [address]- 6889 Jun, [facility] [address] [facility] [id number] [place] 033408730 Jun, [facility] [place] [facility] [address] [facility] [id number] [place] [address]- 5207 Jun, [facility] [address] [facility] [id number] [place] [id number] May, [facility] [place] [facility] [address] [facility] [id number] [place] [address]- 7918 May, [facility] [place] [facility] [address] [facility] [id number] [place] [address]- 9251 Apr, [facility] [place] [facility] [address] [facility] [id number] [place] [address]- 4826 Apr, [facility] [address] [facility] [id number] [place] [id number] Apr, [facility] [place] [facility] [address] [id number] [place] [address]- 9766 Apr, [facility] [place] [facility] [address] [facility] [id number] [place] [address]- 2546 Apr, [facility] [address] [facility] [id number] [place] [id number] March, [facility] [place] [facility] [address] [id number] [place] [address]- 6456 March, [facility] [place] [facility] [address] [facility] [id number] [place] [address]- 9916 March, [facility] [address] [id number] [place] [id number] March, [facility] [place] [facility] [id number] [address]- 2345 March, [facility] [address] [facility] [id number] [place] [id number] March, [facility] [place] [facility] [address] [facility] [id number] [place] [address]- 9556 March, [facility] [address] [facility] [id number] [place] 574903305 Feb, [facility] [place] [facility] [address] [facility] [id number] [place] [address]- 9626 Feb, [facility] [place] [facility] [address] [id number] [place] [address]- 9746 Jan, [facility] [address] [facility] [id number] [place] [id number] Jan, [facility] [place] [facility] [address] [facility] [id number] [place] [address]- 6886 Jan, [facility] [place] [facility] [address] [facility] [id number] [place] [address]- 1166 Jan, [facility] [address] [id number] [place] [id number] Jan, [facility] [address] [id number] [place] [id number] Dec, [facility] [place] [facility] [address] [facility] [id number] [place] [address] Dec, [facility] [address] [facility] [id number] [place] [address] Dec, [facility] [address] [facility] [id number] [place] [id number] Dec, [facility] [place] [facility] [address] [facility] [id number] [place] [address] Dec, [facility] [address] [facility] [id number] [place] [id number] Dec, [facility] [place] [facility] [id number] [address] Dec, [facility] [place] [facility] [address] [facility] [id number] [place] [address] Dec, [facility] [address] [facility] [id number] [place] [id number] Dec, [facility] [address] [facility] [id number] [place] [id number] Nov, [facility] [place] [facility] [address] [id number] [address] Nov, [facility] [place] [facility] [address] [facility] [id number] [place] [address] Nov, [facility] [address] [facility] [id number] [place] [id number] Nov, [facility] [address] [facility] [id number] [place] [id number] Oct, [facility] [place] [facility] [address] [facility] [id number] [place] [address] Oct, [facility] [address] [facility] [id number] [place] [id number] Oct, [facility] [address] [id number] [place] Oct, [facility] [place] [facility] [address] [id number] [place] [address] Oct, [facility] [address] [facility] [id number] [place] [address] Oct, [facility] [address] [facility] [id number] [place] [id number] Oct, [facility] [place] [facility] [address] [id number] [place] [address] Oct, [facility] [place] [facility] [address] [id number] [place] [address] Sep, [facility] [place] [facility] [address] [facility] [id number] [place] [address] Sep, [facility] [address] [facility] [id number] [place] [id number] Sep, [facility] [place] [facility] [address] [facility] [id number] [place] [address] Sep, [facility] [place] [facility] [address] [facility] [id number] [place] [address] Sep, [facility] [address] [facility] [id number] [place] [id number] Sep, [facility] [address] [facility] [id number] [place] [id number] Aug, [facility] [place] [facility] [address] [id number] [place] [address] Aug, [facility] [facility] [address] [facility] [id number] [place] [address] Aug, [facility] [address] [facility] [id number] [place] [id number] Aug, [facility] [address] [facility] [id number] [place] [id number] Aug, [facility] [facility] [address] [facility] [facility] [id number] [address] Aug, [facility] [address] [facility] [id number] [place] [address] Aug, [facility] [place] [facility] [address] [facility] [id number] [place] [address] Aug, [facility] [place] [address] [id number] [place] [id number] Jul, [facility] [address] [facility] [id number] [place] [address] Jul, [facility] [address] [facility] [id number] [place] [address] Jul, [facility] [place] [address] [id number] [place] [id number] Jul, [facility] [place] [address] [id number] [place] [id number] Jul, [facility] [id number] [address] May, [facility] [address] [id number] [address] Apr, [facility] [place] [address] [id number] [place] [address] Apr, [facility] [place] [address] [id number] [place] [address] Apr, [facility] [address] [facility] [id number] [place] [address] March, [facility] [place] [address] [id number] [place] [id number] March, [facility] [place] [address] [id number] [place] [id number] March, [facility] [place] [address] [id number] [place] [id number] March, [facility] [place] [address] [id number] [place] [id number] March, [facility] [place] [address] [id number] [place] [id number] March, [facility] [address] [facility] [id number] [place] [address] March, [facility] [address] [facility] [id number] [place] [address] March, [facility] [address] [facility] [id number] [place] [address] Feb, [facility] [place] [address] [id number] [place] [id number] Feb, [facility] [place] [address] [id number] [place] [id number] Feb, [facility] [place] [address] [id number] [place] [id number] Feb, [facility] [address]00565100[place] [address] Feb, [facility] [place] [address] [id number] [place] [id number] Feb, [facility] [place] [address] [id number] [place] [id number] Jan, [facility] [place] [address] [id number] [place] [id number] Jan, [facility] [place] [address] [id number] [place] [address] Dec, [facility] [place] [address] [id number] [place] [id number] Dec, [facility] [address] [id number] [address] Dec, [facility] [place] [address] [id number] [place] [id number] Dec, [facility] [place] [address] [id number] [place] 6[address] Dec, [facility] [place] [address] [id number] [place] 158[address] Dec, [facility] [place] [address] [id number] [place] [id number] Dec, [facility] [place] [address] [facility] [id number] [place] [address] Nov, [facility] [place] [address] [id number] [place] [id number] Nov, [facility] [place] [address] [id number] [place] [id number] Nov, [facility] [place] [address] [id number] [place] [address] Nov, [facility] [place] [address] [id number] [place] [id number] Nov, [facility] [place] [address] [facility] [id number] [place] [address] Oct, [facility] [place] [address] [id number] [place] [id number] Oct, [facility] [place] [address] [id number] [place] [address]77[address] Oct, [facility] [place] [address] [id number] [place] [id number] Oct, [facility] [place] [address] [facility] [id number] [place] [address] Oct, [facility] [place] [facility] [address] [facility] [id number] [place] [address] Oct, [facility] [place] [address] [facility] [id number] [place] [address] Oct, [facility] [place] [address] [id number] [place] [id number] Sep, [facility] [place] [address] [facility] [id number] [place] [address] Sep, [facility] [address] [facility] [id number] [place] [address] Sep, [facility] [place] [address] [id number] [place] [id number] Sep, [facility] [place] [address] [id number] [place] [id number] Sep, [facility] [place] [address] [id number] [place] [address]862640[address] Sep, [facility] [address] [facility] [id number] [place] [address] Sep, [facility] [address] [facility] [id number] [place] [address] Sep, [facility] [address] [facility] [id number] [place] [address] Sep, [facility] [place] [address] [id number] [place] [id number] Aug, [facility] [address] [facility] [id number] [place] [address] Aug, [facility] [place] [address] [id number] [place] [id number] Aug, [facility] [address]00565100[place] Aug, [facility] [address] [facility] [id number] [place] [address] Aug, [facility] [place] [address] [id number] [place] [id number] Aug, [facility] [place] [address] [id number] [place] [id number] Aug, [facility] [address] [facility] [id number] [address] Aug, [facility] [place] [address] [id number] [place] [id number] Aug, [facility] [place] [address] [id number] [place] [id number] Jul, [facility] [place] [address] [id number] [place] [id number] Jun, [facility] [place] [address] [id number] [place] 227638[address] May, [facility] [place] [address] [id number] [place] 363869018 May, [facility] [place] [address] [id number] [place] 35[place]38[address] May, [facility] [place] [address] [id number] [place] [id number] May, [facility] [place] [address] [id number] [place] [id number] May, [facility] [place] [address] [id number] [place] [address] May, [facility] [place] [address] [id number] [place] [address] May, [facility] [place] [address] [id number] [place] [address]58[place]95[place] Apr, [facility] [place] [address] [id number] [place] [id number] Apr, [facility] [place] [address] [id number] [place] [id number] Apr, [facility] [place] [address] [id number] [place] 9[address]30[place] Apr, [facility] [place] [address] [id number] [place] 015862405 Apr, [facility] [place] [address] [id number] [place] [address]82[place]73[address] Apr, [facility] [place] [address] [id number] [place] [id number] March, [facility] [place] [address] [id number] [place] 102477856 March, [facility] [place] [address] [id number] [place] 685[place]2546 Feb, [facility] [place] [address] [id number] [place] [id number] Feb, [facility] [place] [address] [id number] [place] 013438090 Feb, [facility] [place] [address] [id number] [place] [id number] Jan, [facility] [place] [address] [id number] [place] [id number] Jan, [facility] [place] [address] [id number] [place] [address] Jan, [facility] [place] [address] [id number] [place] [id number] Jan, [facility] [place] [address] [id number] [place] [id number] Dec, [facility] [place] [facility] [address] [facility] [id number] [place] [address]- [address]46 Dec, [facility] [place] [address] [id number] [place] [id number] Dec, [facility] [place] [address] [id number] [place] [id number] Nov, [facility] [place] [address] [id number] [place] [id number] Nov, [facility] [place] [address] [id number] [place] [id number] Nov, [facility] [place] [facility] [id number] [address] Oct, [facility] [place] [facility] [id number] [address] Oct, [facility] [place] [facility] [id number] [address]- [address] Oct, [facility] [place] [facility] [id number] [address]- [address] Aug, [facility] [place] [facility] [id number] [address]- [address] Aug, [facility] [place] [facility] [id number] [address]- [address] Aug, [facility] [place] [facility] [id number] [address] March, [facility] [place] [facility] [address] [id number] [address]- 4318 Oct, [facility] [place] [facility] [id number] [address]- [address]255 Oct, [facility] [place] [facility] [address] [facility] [id number] [place] [address]- [address] 29 Sep, 2010 [facility] [address] [id number] [place] [address]- [address] Sep, [facility] [place] [facility] [address] [id number] [place] [address]- 9770 Sep, [facility] [address] [id number] [place] [address]- 6[address] Aug, [facility] [place] [facility] [address] [id number] [place] [address]- 1447 Aug, [facility] [address] [id number] [place] [address], [place] [address]- [address] Jun, [facility] [address] [id number] [place] [address]- [address]409 May, [facility] [address] [id number] [place] [address]- 8217 Jan, [facility] [address] [id number] [place] [address]- 0969 Nov, [facility] [address] [id number] [place] [address]- [address] 24 Oct, 2009 [facility] [address] [id number] [place] [address]- 2310 Sep, [facility] [place] [facility] [address] [id number] [place] [address]- 3939 Sep, [facility] [place] [facility] [address] [id number] [place] [address]- 2548 Sep, [facility] [place] [facility] [address] [id number] [place] [address]- 1961 Sep, [facility] [place] [facility] [address] [id number] [place] [address]- 254 Sep, [facility] [place] [facility] [address] [id number] [place] [address]- 4[address] Aug, [facility] [address] [facility] [id number] [place] [address]- [address] Aug, [facility] [address] [facility] [id number] [place] [address]- [address] Jul, [facility] [address] [facility] [id number] [place] [address] Jun, IMMUNIZATIONS No Known Immunizations SOCIAL HISTORY Never Assessed REASON FOR VISIT Congestion for 1 week and has inhalers they are not working. Pt states she has mucus that she is having a hard time getting up and it is green. Helio [facility]ILLA PLAN OF CARE Activity Details Follow Up 09/28 w/ Magdalena Sellers Reason:establish care VITAL SIGNS Height 67.7 in 2018-09-13 Weight 194.6 lbs 2018-09-13 Temperature 97.7 degrees Fahrenheit 2018-09-13 Heart Rate 82 bpm 2018-09-13 Respiratory Rate 20 2018-09-13 BMI 29.85 kg/m2 2018-09-13 Blood pressure systolic 108 mmHg 2018-09-13 Blood pressure diastolic 76 mmHg 2018-09-13 MEDICATIONS Medication Instructions Dosage Frequency Start Date End Date Duration Status Pen [place] 31G X 8 MM subcutaneously 2 times a day as directed 12h Dec Active Humalog 100 UNIT/ML Subcutaneous 3 times a day 23 units just before meals 8h 16 Aug, 2017 Active Atorvastatin Calcium 40 mg Orally Once a day TAKE ONE TABLET BY MOUTH ONCE DAILY 24h 8 weeks Active Jardiance 10 mg Orally Once a day 1 tablet 24h March, Dec, Active iron Nov, Active Vitamin B-12 100 MCG Orally Once a day 1 tablet 24h Active True Metrix Blood Glucose Test - USE ONE STRIP TO CHECK GLUCOSE TWICE DAILY 50 Active ProAir HFA 108 (90 Base) MCG/ACT Inhalation every 4-6 hours as needed 2 puffs Feb, Active Aspirin 81 MG Orally every 2 days 1 tablet 90 days Active PredniSONE 20 mg Orally Once a day 2 tablets 24h Sep, Sep, 5 days Active Cymbalta 60 mg Orally Once a day 1 capsule 24h 30 Jul, 2015 Active Januvia 100MG Orally Once a day TAKE ONE TABLET BY MOUTH ONCE DAILY 24h Active True Metrix Blood Glucose Test 1 subcutaneously 2 times a day test blood sugar 12h Aug, Active Ventolin HFA 108MCG/A INHALE TWO PUFFS BY MOUTH EVERY 4 TO 6 HOURS NEEDED FOR COUGH AND FOR SHORTNESS OF BREATH AND FOR WHEEZING Active Multivitamin Adult - Active Victoza 18MG/3ML Subcutaneous Once a day 1.8mg 24h Active True Metrix Meter w/Device Test blood sugar 12h Aug, Active Insulin Syringe-Needle U-100 28G X 1/2 subcutaneously Once a day as directed 24h Dec, Active Fluticasone Propionate 50MCG/ACT Nasally Once a day 1 spray in each nostril 24h 12 months Active Insulin Syringe-Needle U-100 1ML/31G subcutaneously Once a day as directed 24h Active Gabapentin 400MG Orally at bedtime 1 tablet Active Levemir 100 UNIT/ML Subcutaneous 2 times a day inject 50U in am and 50U at HS 12h Dec, Active Pen [place] 31G/8MM subcutaneously 2 times a day as directed 12h Active Cetirizine HCl 10MG TAKE ONE TABLET BY MOUTH ONCE DAILY 90 Active Lancets 1 subcutaneously 2 times a day test blood sugar 12h Aug, Active Amoxicillin 500 mg Orally every 8 hrs 2 capsules 8h Sep, Sep, 7 days Active RESULTS No Results PROCEDURES No [...] 08/2016 Hospitalization History chest pain ED visit [facility], pt scheduled for heart cath on May Hospitalization History Ana 2012 Hospitalization History Chest pain-[facility] 12/22/16
--- OUTSIDE RECORDS SUMMARY | 2018-11-01 18:48 | XMS REPORT ---
Author Author ALTAMIRANOOSWALDO Antonio Organization [facility] Address [address] [place] [address] Care Team Providers Care Insurance Specialist Name Role Phone OSWALDO ALTAMIRANO Unavailable PROBLEMS Type Condition ICD9-CM Code LGR49-ZM Code Onset Dates Condition Status SNOMED Code Problem Other seasonal allergic rhinitis J30.2 Active 609883915 Problem Polyneuropathy associated with underlying disease G63 Active 080581400 Problem Other chronic pain G89.29 Active 48734269 Problem Vitamin D deficiency E55.9 Active 96697607 Problem Recurrent major depressive disorder, in partial remission F33.41 Active 21761716 Problem alf 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 Active 985779747 Problem Syncope, unspecified syncope type R55 Active 568811061 Problem Stage 2 chronic kidney disease N18.2 Active 653796060 Problem Type 2 diabetes mellitus with diabetic polyneuropathy E11.42 Active 19557745 Problem Episodic mood disorder F39 Active 12165985 Problem Dyslipidemia E78.5 Active 618429048 Problem Serum creatinine raised R79.89 Active 177599314 Problem Lumbago with sciatica, left side M54.42 Active 090535374 Problem Generalized anxiety disorder F41.1 Active 65901012 Problem Lumbago with sciatica, right side M54.41 Active 591935373 ALLERGIES Substance Reaction Event Type Date Status MetFORMIN HCl ER nausea and vomiting Drug Allergy Jun, Active Codeine Phosphate dizziness Drug Allergy Jun, Active metal/crown/watches rash Non Drug Allergy Jun, Active ENCOUNTERS Encounter Location Date Diagnosis [facility] [address] 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 ; Stage 2 chronic kidney disease N18.2 and Episodic mood disorder F39 [place] [id number] [place] [address] 79348- 5304 May, [place] [id number] [place] [address] 88748- 0630 March, [place] [id number] [place] [address] 18551- 4658 March, Type 2 diabetes mellitus with diabetic [...] H60.502 and Non-adherence to medical treatment Z91.[id number] [place] [address] [id number] Feb, Dental examination Z01.20 [place] [address] [id number] [place] [address] 39741- 5369 Feb, Labile hypertension R09.89 ; Syncope, unspecified syncope type R55 ; Chest pain, unspecified type R07.9 and Dyslipidemia E78.5 [place] [id number] [place] [address] 69568- 3062 Feb, [place] [address] [id number] [place] [address] 83028- 5138 Jan, [id number] [place] [address] [id number] Jan, Dental examination Z01.20 [place] [id number] [place] [address] 25855- 5531 Jan, Acute non-recurrent maxillary sinusitis J01.[address] [facility] [address] [facility] [id number][place] [address] Jan, Dental examination Z01.20 and Dental caries K02.9 [facility] [address] [facility] [id number][place] [id number] Jan, [facility] [address] [facility] [id number][place] [id number] Dec, Dental examination Z01.20 [facility] [id number] [place] [address] 46639 -7583 Dec, Seasonal allergic rhinitis, unspecified trigger J30.2 [facility] [id number] [place] [address] 17540- 3944 Nov, [facility] [id number] [place] [address] 64340- 3776 Nov, Type 2 diabetes mellitus with diabetic polyneuropathy E11.42 ; Dyslipidemia E78.5 ; Lumbago with sciatica, right side M54.41 ; Lumbago with sciatica, left side M54.42 ; medical illustrator 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 ; Polyneuropathy associated with underlying disease G63 ; Stage 2 chronic kidney disease N18.2 and Syncope, unspecified syncope type R55 [place] [id number] [place] [address] 97660- 1827 Oct, Type 2 diabetes mellitus with diabetic polyneuropathy E11.42 ; Acute otitis externa of left ear, unspecified type H60.502 ; Overweight (BMI 25.0-29.9) E66.3 ; Dyslipidemia E78.5 and Polyneuropathy associated with underlying disease G63 [place] [id number] [place] [address] 08271- 2620 Sep, [place] [id number] [place] [address] 69298- 5725 Aug, Abnormal mammogram R92.8 [place] [address] 30352- 6207 Aug, Type 2 diabetes mellitus with diabetic polyneuropathy E11.42 [facility] [id number] [place] [address] 37683- 7065 Aug, [facility] [id number] [place] [address] 33630- 0553 Aug, Type 2 diabetes mellitus with diabetic polyneuropathy E11.42 ; Syncope, unspecified syncope type R55 ; Other chronic pain G89.29 and Encounter for immunization Z23 [facility] [id number] [place] [address] 04170- 9139 Aug, Type 2 diabetes mellitus with diabetic polyneuropathy E11.42 [place] [id number] [place] [address] 75922- 1295 Jul, Type 2 diabetes mellitus with diabetic polyneuropathy E11.42 and Serum creatinine raised R79.89 [place] [address] 44350- 3879 Jul, Type 2 diabetes mellitus with diabetic polyneuropathy E11.42 and Serum creatinine raised R79.89 [place] [id number] [place] [address] 47069- 8533 May, [place] [id number] [place] [address] 75797- 6951 May, [facility] [id number] [place] [address] 91502- 4393 May, Head injury, initial encounter S09.90XA ; Facial pain R51 ; Neck pain M54.2 and Fall, initial encounter W19.XXXA [facility] [id number] [place] [address] 14222- 9951 May, Type 2 diabetes mellitus with diabetic polyneuropathy E11.42 [facility] [id number] [place] [address] 39693- 8396 May, [facility] [id number] [place] [address] 08244- 0749 May, Type 2 diabetes mellitus with diabetic polyneuropathy E11.42 [place] [address] [address] 0536 May, Dyslipidemia E78.5 ; medical illustrator 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 ; Type 2 diabetes mellitus with diabetic polyneuropathy E11.42 ; Generalized anxiety disorder F41.1 and Other seasonal allergic rhinitis J30.2 [place] [id number] [place] [address] 83416- 7541 Apr, Type 2 diabetes mellitus with diabetic polyneuropathy E11.42 [place] [id number] [place] [address] 45176- 2133 March, [place] [id number] [place] [address] 92373- 9880 March, Abnormal mammogram R92.8 [place] [address] [id number] [place] [address] 13260- 7712 Feb, Abnormal mammogram R92.8 [place] [address] [id number] [place] [address] 26047- 6421 Feb, Diabetes type 2, uncontrolled E11.65 [place] [address] [id number] [place] [address] 69756- 2674 Feb, Screening for breast cancer Z12.39 [place] [address] [address]- 2402 Jan, Screening for breast cancer Z12.39 [place] [id number] [place] [address] 70626- 4191 Jan, Type 2 diabetes mellitus with diabetic polyneuropathy E11.42 ; alf 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 ; Other viral agents as the cause of diseases classified elsewhere B97.89 and Acute upper respiratory infection, unspecified J06.9 [place] [address] [address]- 8774 Jan, [place] [id number] [place] [address] 21060- 7868 17 Dec, 2016 Diabetes type 2, uncontrolled E11.65 ; Dyslipidemia E78.5 ; Generalized anxiety disorder F41.1 ; Depression, unspecified depression type F32.9 ; alf 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 and Polyneuropathy associated with underlying disease G63 [place] [address] [id number] [place] [address] 70244- 0383 16 Dec, 2016 [place] [address] 10741- 4062 Dec, [place] [address] [id number] [place] [address] 38935- 1504 Dec, [place] [address] [id number] [place] [address] 05113- 0065 Dec, [place] [address] [id number] [place] [address] 22749- 2921 Oct, Well woman exam Z01.419 ; Screening for breast cancer Z12.39 ; medical illustrator 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 ; Type 2 diabetes mellitus without complications E11.9 and Encounter for immunization Z23 [place] [address] [id number] [place] [address] 78656- 1695 Sep, [place] [address] [id number] [place] [address] 06949- 4305 Sep, Diabetes type 2, uncontrolled E11.65 ; Dyslipidemia E78.5 and Depression, unspecified depression type F32.9 [place] [address] [id number] [place] [address] 10437- 2815 Aug, Diabetes type 2, uncontrolled E11.65 ; Encounter for immunization Z23 ; Nasal congestion R09.81 and Ear pressure, bilateral H93.8X3 [place] [address] 31746- 3569 Jul, Eustachian tube dysfunction, left H69.82 [place] [address] 10994- 7992 Jun, [place] [address] [address]- 6338 Jun, Hospital discharge follow-up Z09 ; Syncope, unspecified syncope type R55 and Acute suppurative otitis media of left ear without spontaneous rupture of tympanic membrane, recurrence not specified H66.002 [place] [address] [id number] [place] [address] 60426- 6611 May, [place] [address] [id number] [place] [address] 11680- 1537 May, [place] [id number] [place] [address] 55518- 7097 May, [place] [address] [id number] [place] [address] 68783- 1094 May, Diabetes type 2, uncontrolled E11.65 ; [...] disturbance G47.9 and Generalized anxiety disorder F41.1 [place] [address] [place] [address] 75006- 3484 March, [address] [place] [address] [id number] March, Syncope, unspecified syncope type R55 and Depression, unspecified depression type F32.9 [place] [id number] [place] [address] [id number] March, Orthostatic hypotension I95.1 [place] [id number] [place] [address] [id number] March, [place] [address] [address] [id number] [place] [address] 45454- 9309 March, [place] [id number] [place] [address] [id number] Feb, [facility] [address] [id number] [id number] Feb, Dental examination Z01.20 [facility] [id number] [id number] Jan, [facility] [address] [id number][place] [address] Jan, [facility] [id number] [place] [address] [id number] Dec, Diabetes type 2, uncontrolled E11.65 [facility] [address] [facility] [id number][place] [id number] Nov, [facility] [address] [id number][place] [id number] Nov, Encounter for dental examination Z01.20 [facility] [id number][place] [id number] Nov, Dental examination Z01.20 [facility] [id number], [place] [address] Sep, Diabetes type 2, uncontrolled E11.65 [facility] [address] [facility] [address] [id number][place] [id number] Sep, Encounter for dental examination Z01.20 and Dental caries, unspecified K02.9 [facility] [place] [address] [id number][place] [address] Sep, Bipolar 2 disorder F31.81 [facility] [address] [id number], [place] [id number] Aug, [facility] [address] [id number], [place] [id number] Aug, Follow up V67.9 [facility] [address] [address]- 3820 30 Jul, 2015 Bipolar disorder, unspecified 296.80 [facility] [place] [address] [id number], [place] [id number] 14 Jul, 2015 Thyroid enlarged 240.9 and Bipolar disorder, unspecified 296.80 [facility] [place] [id number], [place] [id number] Jun, Diabetes mellitus type 2, uncontrolled 250.02 ; Bipolar disorder, unspecified 296.80 and Rash 782.1 [facility] [id number][place] [id number] Jun, [facility] [id number], [place] [id number] May, Urinary tract infection 599.0 [facility] [id number] [place] [address] [id number] May, Urinary tract infection 599.0 [facility] [id number] [place] [address] [id number] May, [facility] [id number] [place] [address] [id number] May, Diabetes mellitus type 2, uncontrolled 250.02 and Pica in adults 307.52 [facility] [id number] [place] [address] [id number] Apr, Follow up V67.9 and Diabetes mellitus type 2, uncontrolled 250.02 [facility] [id number], [place] [id number] Apr, [facility] [address] [address]- 0400 Apr, [facility] [id number], [place] [address] Apr, Hyperlipidemia 272.4 [facility] [id number] [place] [address] [id number] March, Diabetes type 2, uncontrolled 250.02 [facility] [id number], [place] [address] March, Diabetes mellitus type 2, uncontrolled 250.02 [facility] [id number] [place] [address] [id number] March, Diabetes type 2, uncontrolled 250.02 [facility] [id number], [place] [id number] March, [facility] [id number] [place] [address] [id number] March, [facility] [address] [facility] [id number] [place] [id number] Feb, [facility] [place] [facility] [address] [facility] [id number] [place] [address]- 2546 Feb, [facility] [place] [facility] [address] [facility] [id number] [place] [address]- 2546 Feb, [facility] [address] [facility] [id number] [place] [id number] Jan, [facility] [place] [facility] [address] [facility] [id number] [place] [address]- 2546 Jan, [facility] [place] [facility] [address] [id number] [place] [address]- 4146 Jan, [facility] [address] [id number][place] [id number] Jan, [facility] [place] [facility] [address] [address]- 3426 Jan, [facility] [place] [facility] [address] [id number] [address]- 8966 Jan, [facility] [address] [id number], [place] [id number] Jan, [facility] [place] [facility] [address] [id number] [address]- 0986 Jan, [facility] [place] [facility] [address] [id number] [address]- 6516 Dec, [facility] [address] [facility] [id number], [place] [id number] Dec, [facility] [place] [facility] [address] [facility] [id number] [place] [address] 2546 Dec, [facility] [address] [id number], [place] [id number] Dec, [facility] [place] [facility] [address] [facility] [id number] [place] [address]- 2546 Dec, [facility] [address] [id number], [place] [id number] Dec, 2014 [facility] [place] [facility] [address] [facility] [id number] [place] [address]- 4764 Dec, 2014 [facility] [place] [facility] [address] [facility] [id number] [place] [address]- 5988 Dec, 2014 [facility] [address] [id number] [place] [id number] Dec, 2014 [facility] [address] [id number], [place] [id number] Dec, [facility] [place] [facility] [address] [facility] [id number] [place] 0723 Dec, [facility] [place] [facility] [address] [facility] [id number] [place] [address]- 8453 Nov, [facility] [place] [facility] [address] [address]- 6689 Oct, [facility] [place] [facility] [address] [facility] [id number] [place] [address]- 7271 Oct, [facility] [address] [facility] [id number], [place] [id number] Sep, [facility] [place] [facility] [address] [id number] [address]- 2958 Sep, [facility] [address] [facility] [id number], [place] [id number] Sep, [facility] [place] [facility] [address] [facility] [id number] [place] [address]- 0234 Sep, [facility] [address] [facility] [id number], [place] [id number] Aug, [facility] [place] [facility] [address] [facility] [id number] [place] [address]- 4825 Aug, [facility] [address] [facility] [id number], [place] [id number] Aug, [facility] [place] [facility] [address] [address]- 6052 Aug, [facility] [place] [facility] [address] [id number] [place] [address]- 2258 Jul, [facility] [place] [facility] [address] [id number] [place]- 1070 Jul, [facility] [address] [id number] [place] [id number] Jul, [facility] [place] [facility] [address] [id number] [place] 9437 Jul, [facility] [address] [id number] [place] [id number] Jun, [facility] [address] [id number] [place] 4273[address] Jun, [facility] [place] [facility] [address] [facility] [id number] [place] [address]- 3502 Jun, [facility] [place] [facility] [address] [facility] [id number] [place] [address]- 0149 Jun, [facility] [address] [facility] [id number] [place] [id number] Jun, [facility] [place] [facility] [address] [id number] [place] [address]- 4792 Jun, [facility] [address] [facility] [id number] [place] [id number] May, [facility] [place] [facility] [address] [facility] [id number] [place] [address]- 2872 May, [facility] [place] [facility] [address] [id number] [place] [address]- 8483 Apr, [facility] [place] [facility] [address] [id number] [place] [address]- 4273 Apr, [facility] [address] [facility] [id number], [place] [id number] Apr, [facility] [place] [facility] [address] [facility] [id number] [place] [address]- 8112 Apr, [facility] [place] [facility] [address] [facility] [id number] [place] [address]- 3816 Apr, [facility] [address] [facility] [id number] [place] [id number] March, [facility] [place] [facility] [address] [facility] [id number] [place] [address]- 0576 March, [facility] [place] [facility] [address] [facility] [id number] [place] [address]- 0576 March, [facility] [address] [facility] [id number] [place] [id number] March, [facility] [place] [facility] [address] [facility] [id number] [place] [address]- 7116 March, [facility] [address] [facility] [id number] [place] [id number] March, [facility] [place] [facility] [address] [facility] [id number] [place] [address]- 3606 March, [facility] [address] [facility] [id number], [place] 889680459 Feb, [facility] [place] [facility] [address] [facility] [id number] [place] [address]- 8153 Feb, [facility] [place] [facility] [address] [facility] [id number] [place] [address]- 2860 Jan, [facility] [address] [facility] [id number] [place] [id number] Jan, [facility] [place] [facility] [address] [facility] [id number] [place] [address] Jan, [facility] [place] [facility] [address] [facility] [id number] [place] [address] Jan, [facility] [address] [facility] [id number] [place] [id number] Jan, [facility] [address] [facility] [id number] [place] [id number] Dec, [facility] [place] [facility] [address] [facility] [id number] [place] [address] Dec, [facility] [place] [facility] [address] [facility] [id number] [place] [address] Dec, [facility] [address] [facility] [id number] [place] [id number] Dec, [facility] [place] [facility] [address] [facility] [id number] [place] [address] Dec, [facility] [address] [facility] [id number][place] [id number] Dec, [facility] [place] [facility] [address] [facility] [id number] [place] [address] Dec, [facility] [place] [facility] [id number] [place] [address] Dec, [facility] [address] [id number][place] [id number] Dec, [facility] [id number][place] [id number] Nov, [facility] [place] [facility] [id number] [address] Nov, [facility] [place] [facility] [id number] [address] Nov, [facility] [address] [id number][place] [id number] Nov, [facility] [address] [id number][place] [id number] Oct, [facility] [place] [facility] [id number] [address] Oct, [facility] [address] [facility] [id number][place] [id number] Oct, [facility] [place] [facility] [id number] [address] Oct, [facility] [place] [facility] [id number] [id number] Oct, [facility] [place] [facility] [id number] [address] Oct, [facility] [address] [facility] [id number] [place] [id number] Oct, [facility] [place] [facility] [address] [facility] [id number] [place] [address] Oct, [facility] [place] [facility] [address] [facility] [id number] [place] [address] Sep, [facility] [place] [facility] [address] [facility] [id number] [place] [address] Sep, [facility] [address] [facility] [id number][place] [id number] Sep, [facility] [place] [facility] [address] [id number] [address] Sep, [facility] [place] [facility] [address] [id number] [address] Sep, [facility] [address] [facility] [id number][place] [id number] Sep, [facility] [address] [facility] [id number][place] [id number] Aug, [facility] [place] [facility] [id number] [address] Aug, [facility] [place] [facility] [address] [facility] [id number] [place] [address] Aug, [facility] [address] [facility] [id number][place] [id number] Aug, [facility] [address] [facility] [id number][place] [id number] Aug, [facility] [place] [facility] [address] [facility] [id number] [address] Aug, [facility] [place] [facility] [address] [facility] [id number] [place] [address] Aug, [facility] [place] [facility] [address] [facility] [id number] [place] [address] Aug, [facility] [place] [address] [id number], [place] [id number] Jul, [facility] [address] [facility] [id number] [place] [address] Jul, [facility] [place] [facility] [address] [facility] [id number] [place] [address] Jul, [facility] [place] [address] [facility] [id number], [place] [id number] Jul, [facility] [place] [address] [facility] [id number][place] [address] Jul, [facility] [id number] [address] May, [facility] [place] [facility] [id number] [address] Apr, [facility] [place] [address] [id number][place] [id number] Apr, [facility] [place] [address] [facility] [id number][place] [id number] Apr, [facility] [id number] [address] March, [facility] [place] [address] [id number], [place] [id number] March, [facility] [place] [address] [id number], [place] [address]40[address] March, [facility] [place] [address] [id number], [place] [id number] March, [facility] [place] [address] [id number], [place] [id number] March, [facility] [place] [address] [facility] [id number][place] [id number] March, [facility] [place] [facility] [address] [facility] [id number] [place] [address] March, [facility] [id number] [address] March, [facility] [place] [facility] [address] [facility] [id number] [place] [address] Feb, [facility] [place] [address] [id number] [place] [id number] Feb, [facility] [place] [address] [id number] [place] [id number] Feb, [facility] [place] [address] [id number] [place] [id number] Feb, [facility] [address] [facility] [id number] [place] [address] Feb, [facility] [place] [address] [id number] [place] [id number] Feb, [facility] [place] [address] [id number] [place] [id number] Jan, [facility] [place] [address] [id number] [place] [id number] Jan, [facility] [place] [address] [id number] [place] [address]258769[place] Dec, [facility] [place] [address] [id number] [place] [id number] Dec, [facility] [address] [address] Dec, [facility] [place] [address] [id number] [id number] Dec, [facility] [place] [address] [id number] [place] [id number] Dec, [facility] [place] [address] [id number] [place] [id number] Dec, [facility] [place] [address] [id number] [place] [id number] Dec, [facility] [address] [facility] [id number] [place] [address] Nov, [facility] [place] [address] [id number] [place] [id number] Nov, [facility] [place] [address] [id number] [place] [id number] Nov, [facility] [place] [address] [id number] [place] [id number] Nov, [facility] [place] [address] [id number] [place] [id number] Nov, [facility] [place] [facility] [address] [id number] [place] [address] Oct, [facility] [place] [address] [id number] [place] [id number] Oct, [facility] [place] [address] [id number] [place] [id number] Oct, [facility] [place] [address] [id number] [place] [id number] Oct, [facility] [place] [facility] [address] [facility] [id number] [place] [address] Oct, [facility] [place] [facility] [id number] [address] Oct, [facility] [place] [facility] [address] [facility] [id number] [place] [address] Oct, [facility] [place] [address] [id number] [place] [id number] Sep, [facility] [place] [facility] [address] [facility] [id number] [place] [address] Sep, [facility] [place] [facility] [address] [facility] [id number] [place] [address]463 Sep, [facility] [place] [address] [id number][place] [id number] Sep, [facility] [place] [address] [id number] [place] [id number] Sep, [facility] [place] [address] [id number] [place] [id number] Sep, [facility] [place] [facility] [address] [facility] [id number] [place] [address] Sep, [facility] [place] [facility] [address] [id number] [place] [address] Sep, [facility] [place] [facility] [address] [facility] [id number] [place] [address]- 69[address] Sep, [facility] [place] [address] [id number] [place] [id number] Aug, [facility] [place] [facility] [address] [facility] [id number] [place] [address]- [address]51 Aug, [facility] [place] [address] [id number] [place] [id number] Aug, [facility] [place] [facility] [address] [facility] [id number] [place] [address]- 8601 Aug, [facility] [place] [facility] [address] [facility] [id number] [place] [address]- [address]800 Aug, [facility] [place] [address] [id number] [place] [id number] Aug, [facility] [place] [address] [id number] [place] [id number] Aug, [facility] [address] [facility] [id number] [place] [address]- [address] Aug, [facility] [place] [address] [id number] [place] [id number] Aug, [facility] [place] [address] [id number], [place] [id number] Jul, [facility] [place] [address] [id number], [place] [id number] Jun, [facility] [place] [address] [id number], [place] 470912698 May, [facility] [place] [address] [id number] [place] [id number] May, [facility] [place] [address] [id number] [place] [id number] May, [facility] [place] [address] [id number] [place] [id number] May, [facility] [place] [address] [id number] [place] [id number] May, [facility] [place] [address] [id number] [place] [id number] May, [facility] [place] [address] [id number] [place] [id number] May, [facility] [place] [address] [id number] [place] 393837578 Apr, [facility] [place] [address] [id number] [place] [id number] Apr, [facility] [place] [address] [id number] [place] [id number] Apr, [facility] [place] [address] [id number] [place] 055758073 Apr, [facility] [place] [address] [id number] [place] [id number] Apr, [facility] [place] [address] [id number] [place] [id number] Apr, [facility] [place] [address] [id number] [place] 915221068 March, [facility] [place] [address] [id number] [place] 239791679 March, [facility] [place] [address] [id number] [place] 158114565 Feb, [facility] [place] [address] [id number] [place] [id number] Feb, [facility] [place] [address] [id number] [place] [id number] Feb, [facility] [place] [address] [id number] [place] [id number] Jan, [facility] [place] [address] [id number] [place] [id number] Jan, [facility] [place] [address] [id number] [place] [id number] Jan, [facility] [place] [address] [id number] [place] [id number] Jan, [facility] [place] [address] [id number] [place] [id number] Dec, [facility] [address] [address]- [address] Dec, [facility] [place] [address] [id number] [place] [id number] Dec, [facility] [place] [address] [id number] [place] [id number] Nov, [facility] [place] [address] [id number] [place] [id number] Nov, [facility] [place] [address] [id number] [place] [id number] Nov, [facility] [address] [id number] [place] [address]- 2546 Oct, [facility] [place] [facility] [address] [facility] [id number] [place] [address], [place] [address]- 4216 Oct, [facility] [place] [facility] [address] [id number] [address]- 2546 Oct, [facility] [place] [facility] [id number] [place] [address]- [address]856 Aug, [facility] [place] [facility] [address] [id number] [place] [address]- 7451 Aug, [facility] [place] [facility] [address] [id number] [address]- 3386 Aug, [facility] [place] [facility] [address] [id number] [address]- 2896 March, [facility] [place] [facility] [id number] [address]- 8626 Oct, [facility] [place] [facility] [address] [facility] [id number] [place] [address]- 2546 Oct, [facility] [place] [facility] [address] [facility] [id number] [place] [address]- 2546 Sep, [facility] [place] [facility] [address] [facility] [id number] [place] [address]- 2546 Sep, [facility] [place] [facility] [address] [id number] [place]14[place]- 4143 Sep, [facility] [place] [facility] [address] [id number] [place] [address]- 2202 Aug, [facility] [place] [facility] [address] [id number] [place] [address]- 6399 Aug, [facility] [place] [facility] [address] [id number] [place] [address]- 5969 17 Jun, 2010 [facility] [place] [facility] [address] [id number] [place] [address]- 4741 May, [facility] [place] [facility] [address] [id number] [place] [address]- 8999 Jan, [facility] [place] [facility] [address] [id number] [place] [address]- 9287 Nov, [facility] [place] [facility] [address] [id number] [place] [address]- 6309 Oct, [facility] [place] [facility] [address] [id number] [place] [address]- 9013 Sep, [facility] [place] [facility] [address] [id number] [place] [address]- 4261 Sep, [facility] [place] [facility] [address] [id number] [place] [address]- 8421 Sep, [facility] [place] [facility] [address] [id number] [address]- 6602 Sep, [facility] [place] [facility] [address] [id number] [place] [address]- 5571 Sep, [facility] [place] [facility] [address] [id number] [place] [address]- 1604 30 Aug, 2009 [facility] [place] [facility] [address] [id number] [place] [address]- 6607 Aug, [facility] [place] [facility] [address] [id number] [place] [address]- 9948 Jul, [facility] [place] [facility] [address] [id number] [place] [address]- [address] Jun, IMMUNIZATIONS No Known Immunizations SOCIAL HISTORY Never Assessed REASON FOR VISIT Diabetes--tcuppettRN, A1C, Micro PLAN OF CARE Activity Details Follow Up 3 Months, prn Reason:CHM/DM VITAL SIGNS Height 67.7 in 2018-06-17 Weight 201.0 lbs 2018-06-17 Temperature 97.8 degrees Fahrenheit 2018-06-17 Heart Rate 84 bpm 2018-06-17 Respiratory Rate 18 2018-06-17 BMI 30.83 kg/m2 2018-06-17 Blood pressure systolic 110 mmHg 2018-06-17 Blood pressure diastolic 78 mmHg 2018-06-17 MEDICATIONS Medication Instructions Dosage Frequency Start Date End Date Duration Status iron Nov, Active Fluticasone Propionate 50MCG/ACT Nasally Once a day 1 spray in each nostril 24h 12 months Active Pen [place] 31G X 8 MM subcutaneously 2 times a day as directed 12h Dec Active Clindamycin HCl 300 MG Orally 2 times a day 1 capsule 12h Jun, Jun, 07 days Active Januvia 100MG Orally Once a day TAKE ONE TABLET BY MOUTH ONCE DAILY 24h Active Insulin Syringe-Needle U-100 28G X 1/2 subcutaneously Once a day as directed 24h Dec, Active Atorvastatin Calcium 40 mg Orally Once a day TAKE ONE TABLET BY MOUTH ONCE DAILY 24h 8 weeks Active True Metrix Meter w/Device Test blood sugar 12h Aug, Active Victoza 18MG/3ML Subcutaneous Once a day 1.8mg 24h March, Active True Metrix Blood Glucose Test 1 subcutaneously 2 times a day test blood sugar 12h Aug, Active Multivitamin Adult - Active Jardiance 10 mg Orally Once a day 1 tablet 24h March, Dec, Active Levemir 100 UNIT/ML Subcutaneous 2 times a day inject 50U in am and 50U at HS 12h Dec, Active Humalog 100 UNIT/ML Subcutaneous 3 times a day 23 units just before meals 8h Aug, Active Cetirizine HCl 10MG TAKE ONE TABLET BY MOUTH ONCE DAILY Active Ventolin HFA 108MCG/A INHALE TWO PUFFS BY MOUTH EVERY 4 TO 6 HOURS NEEDED FOR COUGH AND FOR SHORTNESS OF BREATH AND FOR WHEEZING Active Insulin Syringe-Needle U-100 1ML/31G subcutaneously Once a day as directed 24h Active Vitamin B-12 100 MCG Orally Once a day 1 tablet 24h Active Gabapentin 400MG Orally at bedtime 1 tablet Active ProAir HFA 108 (90 Base) MCG/ACT Inhalation every 4-6 hours as needed 2 puffs Feb, 12 months Active Pen [place] 31G/8MM subcutaneously 2 times a day as directed 12h Active Aspirin 81 MG Orally every 2 days 1 tablet 90 days Active Lancets 1 subcutaneously 2 times a day test blood sugar 12h 24 Aug, 2017 Active Cymbalta 60 mg Orally Once a day 1 capsule 24h 30 Jul, 2015 Active Mupirocin 2 % Externally 2 times a day apply thin layer to left upper arm wound 12h Jun, Jun, 07 days Active RESULTS No Results PROCEDURES Procedure Date Ordered Result Body Site [facility] Jun 17, 2018 MICROALBUMIN, SEMIQUANT Jun 17, 2018 GLYCATED HEMOGLOBIN TEST Jun 17, 2018 INSTRUCTIONS MEDICATIONS ADMINISTERED No Known [...] Hospitalization History [place] 2012 Hospitalization History Chest pain-[facility] 12/22/16
--- OUTSIDE RECORDS SUMMARY | 2018-11-01 18:48 | XMS REPORT ---
Author Author ADARSHBUSTEROSWALDO Organization [facility] Address [address] [place] [address] Care Team Providers Care Ticket Scheduler Name Role Phone OSWALDO ALTAMIRANO Unavailable PROBLEMS Type Condition ICD9-CM Code QGJ88-VR Code Onset Dates Condition Status SNOMED Code Problem Other seasonal allergic rhinitis J30.2 Active 213479286 Problem Polyneuropathy associated with underlying disease G63 Active 286974207 Problem Other chronic pain G89.29 Active 63913318 Problem Vitamin D deficiency E55.9 Active 11603425 Problem Recurrent major depressive disorder, in partial remission F33.41 Active 14098322 Problem USP 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 Active 930961264 Problem Syncope, unspecified syncope type R55 Active 190206966 Problem Stage 2 chronic kidney disease N18.2 Active 049757434 Problem Type 2 diabetes mellitus with diabetic polyneuropathy E11.42 Active 45651731 Problem Episodic mood disorder F39 Active 71453422 Problem Dyslipidemia E78.5 Active 337644756 Problem Serum creatinine raised R79.89 Active 698189325 Problem Lumbago with sciatica, left side M54.42 Active 718544313 Problem Generalized anxiety disorder F41.1 Active 75760652 Problem Lumbago with sciatica, right side M54.41 Active 373628811 ALLERGIES No Information ENCOUNTERS Encounter Location Date Diagnosis [facility] [address] [facility] [id number], [place] [address] Aug, [facility] [id number] [place] [address] 67520- 2343 Jul, [facility] [id number] [place] [address] 34348- 2637 Jun, Type 2 diabetes mellitus with diabetic polyneuropathy E11.42 ; Open wound T14.8XXA ; USP 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 ; Stage 2 chronic kidney disease N18.2 and Episodic mood disorder F39 [place] [address], [place] [address] 8[address] May, [place] [address] [place] [address] 95299- 8518 March, [place] [address], [place] [address] 3980 March, Type 2 diabetes mellitus with diabetic [...] H60.502 and Non-adherence to medical treatment Z91.[address] [id number] [id number] Feb, Dental examination Z01.20 [place] [address] [place] [address] 07723- 7693 Feb, Labile hypertension R09.89 ; Syncope, unspecified syncope type R55 ; Chest pain, unspecified type R07.9 and Dyslipidemia E78.5 [place] [address], [place] [address] 0[address] Feb, [place] [address] [place] [address] 51239- 2689 Jan, [address] [id number][place] [id number] Jan, Dental examination Z01.20 [place] [address] [place] [id number] [place] [address] 88959- 2977 Jan, Acute non-recurrent maxillary sinusitis J01.00 and Dyslipidemia E78.[address] [id number][place] [id number] Jan, Dental examination Z01.20 and Dental caries K02.9 [facility] [place] [address] [facility] [address] [id number][place] [id number] Jan, [facility] [place] [address] [facility] [address] [id number][place] [id number] Dec, Dental examination Z01.20 [facility] [address] [place] [address] 74266 -9168 Dec, Seasonal allergic rhinitis, unspecified trigger J30.2 [facility] [address] [place] [address] 92383- 0980 Nov, [place] [address] [place] [id number] [place] [address] 00053- 1849 Nov, Type 2 diabetes mellitus with diabetic polyneuropathy E11.42 ; Dyslipidemia E78.5 ; Lumbago with sciatica, right side M54.41 ; Lumbago with sciatica, left side M54.42 ; USP 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 ; Polyneuropathy associated with underlying disease G63 ; Stage 2 chronic kidney disease N18.2 and Syncope, unspecified syncope type R55 [place] [address] [place] [id number] [place] [address] 46192- 7008 Oct, Type 2 diabetes mellitus with diabetic polyneuropathy E11.42 ; Acute otitis externa of left ear, unspecified type H60.502 ; Overweight (BMI 25.0-29.9) E66.3 ; Dyslipidemia E78.5 and Polyneuropathy associated with underlying disease G63 [place] [address], [place] [address]- 1064 Sep, [place] [address] [place] [id number] [place] [address] 10069- 5919 Aug, Abnormal mammogram R92.8 [place] [address] [place] [id number] [place] [address] 96396- 7859 Aug, Type 2 diabetes mellitus with diabetic polyneuropathy E11.42 [place] [address] [place] [id number] [place] [address] 27176- 2627 Aug, [facility] [address], [place] [address] 3864 Aug, Type 2 diabetes mellitus with diabetic polyneuropathy E11.42 ; Syncope, unspecified syncope type R55 ; Other chronic pain G89.29 and Encounter for immunization Z23 [facility] [address] [place] [id number] [place] [address] 18397- 4208 13 Aug, 2017 Type 2 diabetes mellitus with diabetic polyneuropathy E11.42 [place] [address] [place] [id number] [place] [address] 20332- 7035 Jul, Type 2 diabetes mellitus with diabetic polyneuropathy E11.42 and Serum creatinine raised R79.89 [place] [address] [place] [id number] [place] [address] 13391- 8560 Jul, Type 2 diabetes mellitus with diabetic polyneuropathy E11.42 and Serum creatinine raised R79.89 [place] [address] [place] [id number] [place] [address] 20494- 9465 May, [place] [address] [place] [id number] [place] [address] 66078- 8595 May, [place] [address] [place] [id number] [place] [address] 31419- 4526 May, Head injury, initial encounter S09.90XA ; Facial pain R51 ; Neck pain M54.2 and Fall, initial encounter W19.XXXA [place] [address] [place] [id number] [place] [address] 57277- 7776 May, Type 2 diabetes mellitus with diabetic polyneuropathy E11.42 [place] [address] [place] [id number] [place] [address] 75609- 1817 May, [place] [address] [place] [id number] [place] [address] 00841- 8151 May, Type 2 diabetes mellitus with diabetic polyneuropathy E11.42 [place] [address] [place] [id number] [place] [address] 27057- 4187 May, Dyslipidemia E78.5 ; USP 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 ; Type 2 diabetes mellitus with diabetic polyneuropathy E11.42 ; Generalized anxiety disorder F41.1 and Other seasonal allergic rhinitis J30.2 [place] [address], [place] [address]- 0262 Apr, Type 2 diabetes mellitus with diabetic polyneuropathy E11.42 [place] [address] [place] [address] 52998- 5723 March, [place] [address] [place] [id number] [place] [address] 07209- 5892 March, Abnormal mammogram R92.8 [place] [address] [place] [id number] [place] [address] 72239- 4949 Feb, Abnormal mammogram R92.8 [place] [address] [place] [id number] [place] [address] 03207- 2682 Feb, Diabetes type 2, uncontrolled E11.65 [place] [address] [place] [address] 77391- 8168 Feb, Screening for breast cancer Z12.39 [place] [address] [place] [id number] [place] [address] 96113- 5428 Jan, Screening for breast cancer Z12.39 [place] [address] [place] [id number] [place] [address] 40298- 3628 Jan, Type 2 diabetes mellitus with diabetic polyneuropathy E11.42 ; technician terminal and repeater 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 ; Other viral agents as the cause of diseases classified elsewhere B97.89 and Acute upper respiratory infection, unspecified J06.9 [place] [address], [place] [address]- 2123 Jan, [place] [address] [place] [address] 97799- 2840 Dec, Diabetes type 2, uncontrolled E11.65 ; Dyslipidemia E78.5 ; Generalized anxiety disorder F41.1 ; Depression, unspecified depression type F32.9 ; technician terminal and repeater 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 and Polyneuropathy associated with underlying disease G63 [place] [address] [place] [id number] [place] [address] 02347- 9126 Dec, [facility] [address] [place] [id number] [place] [address] 42392- 7996 14 Dec, 2016 [place] [address] [place] [id number] [place] [address] 10604- 9309 Dec, [place] [address] [place] [id number] [place] [address] 85807- 6339 Dec, [place] [address] 47759- 8879 Oct, Well woman exam Z01.419 ; Screening for breast cancer Z12.39 ; technician terminal and repeater 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 ; Type 2 diabetes mellitus without complications E11.9 and Encounter for immunization Z23 [place] [address] 12914- 8313 Sep, [place] [address] [place] [id number] [place] [address] 83807- 2973 Sep, Diabetes type 2, uncontrolled E11.65 ; Dyslipidemia E78.5 and Depression, unspecified depression type F32.9 [place] [address] [place] [id number] [place] [address] 45537- 4466 Aug, Diabetes type 2, uncontrolled E11.65 ; Encounter for immunization Z23 ; Nasal congestion R09.81 and Ear pressure, bilateral H93.8X3 [place] [address] [place] [id number] [place] [address] 39401- 6519 Jul, Eustachian tube dysfunction, left H69.82 [place] [address] [place] [id number] [place] [address] 64162- 2613 Jun, [place] [address] [place] [id number] [place] [address] 36910- 0002 Jun, Hospital discharge follow-up Z09 ; Syncope, unspecified syncope type R55 and Acute suppurative otitis media of left ear without spontaneous rupture of tympanic membrane, recurrence not specified H66.002 [place] [address], [place] [address]- 6999 May, [facility] [address] [place] [address] 78319- 1032 May, [place] [address] [place] [id number] [place] [address] 46173- 5999 May, [place] [address] [place] [address] 49247- 1039 May, Diabetes type 2, uncontrolled E11.65 ; [...] disturbance G47.9 and Generalized anxiety disorder F41.1 [place] [address] [place] [address] 93671- 7178 March, [address] [address] March, Syncope, unspecified syncope type R55 and Depression, unspecified depression type F32.[address] [place] [address] [id number] March, Orthostatic hypotension I95.1 [facility] [address] [facility] [id number] [id number] March, [place] [address] [place] [id number] [place] [address] 57017- 9767 March, [facility] [address]100[place] [address] Feb, [address] [id number], [place] 201[address] Feb, Dental examination Z01.20 [facility] [place] [address] [id number][place] [address] Jan, [facility] [place] [address] [place] [id number], [place] [address]138 Jan, [facility] [place] [id number][place] [address]78[address]471 Dec, Diabetes type 2, uncontrolled E11.65 [facility] [place] [id number], [place] [id number] Nov, [facility] [place] [address] [facility] [address] [id number][place] [address] Nov, Encounter for dental examination Z01.20 [facility] [place] [address] [facility] [address] [id number], [place] [address] Nov, Dental examination Z01.20 [facility] [place] [id number], [place] [address]672 Sep, Diabetes type 2, uncontrolled E11.65 [facility] [address] [id number][place] [id number] Sep, Encounter for dental examination Z01.20 and Dental caries, unspecified K02.9 [facility] [place] [id number] [place] [address] [id number] Sep, Bipolar 2 disorder F31.81 [facility] [place] [id number], [place] [id number] Aug, [facility] [place] [id number] [place] [address] [id number] Aug, Follow up V67.9 [facility] [address] [place] [id number] 657[address]46- 2056 Jul, Bipolar disorder, unspecified 296.80 [facility] [place] [id number], [place] [address] Jul, Thyroid enlarged 240.9 and Bipolar disorder, unspecified 296.80 [facility] [place] [id number], [place] [address]4513 Jun, Diabetes mellitus type 2, uncontrolled 250.02 ; Bipolar disorder, unspecified 296.80 and Rash 782.1 [facility] [id number], [place] [address] Jun, [facility] [address] [place] [id number] [place] [address] [id number] May, Urinary tract infection 599.0 [facility] [place] [address] [place] [id number] [place] [address] [id number] May, Urinary tract infection 599.0 [facility] [place] [address] [place] [id number] [place] [address] [id number] May, [facility] [place] [address] [place] [id number] [place] [address] [id number] May, Diabetes mellitus type 2, uncontrolled 250.02 and Pica in adults 307.52 [facility] [place] [address] [place] [address] [id number] Apr, Follow up V67.9 and Diabetes mellitus type 2, uncontrolled 250.02 [facility] [place] [id number] [place] [address] [id number] Apr, [facility] [address] [place] [id number] [place] [address] 366737- 9912 Apr, [facility] [address] [place] [address] [id number] Apr, Hyperlipidemia 272.4 [facility] [place] [id number] [place] [address] [id number] March, Diabetes type 2, uncontrolled 250.02 [facility] [address] [place] [address] [id number] March, Diabetes mellitus type 2, uncontrolled 250.02 [facility] [place] [id number] [place] [address] [id number] March, Diabetes type 2, uncontrolled 250.02 [facility] [place] [address] [place] [address] [id number] March, [facility] [place] [address] [place] [id number] [place] [address] [id number] March, [facility] [place] [address]00565100[place], [place] [address] Feb, [facility] [address], [place] [address]- 5416 14 Feb, 2015 [facility] [place] [facility] [address] [facility] [id number], [place] [address]- 0425 Feb, [facility] [address] [facility] [id number], [place] [id number] 30 Jan, 2015 [facility] [place] [facility] [address], [place] [address]- 4226 Jan, [facility] [place] [facility] [address] [facility] [id number], [place] [address]- 0480 Jan, [facility] [address] [facility] [id number], [place] [id number] Jan, [facility] [place] [facility] [address], [place] [address]- 3910 Jan, [facility] [place] [facility] [address], [place] [address]- 8656 Jan, [facility] [address] [place] [id number], [place] [address]252[address]654 Jan, [facility] [place] [facility] [address], [place] [address]- 2947 Jan, [facility] [place] [facility] [address], [place] [address]- 4705 Dec, [facility] [address] [place] [id number], [place] [id number] Dec, [facility] [place] [facility] [address] [facility] [id number], [place] [address] 2546 Dec, [facility] [address] [facility] [id number], [place] [id number] Dec, [facility] [place] [facility] [address] [facility] [id number], [place] [address]- 1676 Dec, [facility] [address] [place] [id number], [place] [id number] Dec, [facility] [place] [facility] [address] [place] [id number] [place] [address] 64294- 1376 Dec, 2014 [facility] [place] [facility] [address] [facility] [id number], [place] [address]- 5606 Dec, [facility] [address] [facility] [id number] [place] [id number] Dec, [facility] [place] [address] [facility] [id number] [place] [id number] Dec, [facility] [place] [facility] [address] [facility] [id number] [place] [address] 66921- 8766 Dec, [facility] [place] [facility] [address] [facility] [id number] [place] [address]- 4821 Nov, [facility] [place] [facility] [address], [place] [address]- 0923 Oct, [facility] [place] [facility] [address], [place] [address]- 8617 Oct, [facility] [address] [place] [id number], [place] [id number] Sep, [facility] [place] [facility] [address] [place] [id number], [place] [address]- 4963 Sep, [facility] [address] [place] [id number], [place] [id number] Sep, [facility] [place] [facility] [address], [place] [address]- 6696 Sep, [facility] [address] [facility] [id number], [place] [id number] Aug, [facility] [place] [facility] [address] [facility] [id number], [place] [address]- 5666 Aug, [facility] [address] [facility] [id number], [place] [id number] Aug, [facility] [place] [facility] [address] [facility] [id number], [place] [address]- 0186 Aug, [facility] [place] [facility] [address] [facility] [id number], [place] [address]- 8666 Jul, [facility] [place] [facility] [address] [facility] [id number], [place] [address]- 2588 Jul, [facility] [address] [facility] [id number] [place] [id number] Jul, [facility] [place] [facility] [address] [facility] [id number] [place] [address]- 1346 Jul, [facility] [address] [id number] [place] [id number] Jun, [facility] [address] [facility] [id number] [place] [id number] Jun, [facility] [place] [facility] [address] [facility] [id number] [place] [address]- 4270 Jun, [facility] [place] [facility] [address] [facility] [id number], [place] [address]- 8878 Jun, [facility] [id number], [place] [id number] Jun, [facility] [place] [facility] [address] [facility] [id number], [place] [address]- 7262 Jun, [facility] [address] [facility] [id number], [place] [id number] May, [facility] [place] [facility] [address] [facility] [id number], [place] [address]- 7233 May, [facility] [place] [facility] [address] [facility] [id number], [place] [address]- 7678 Apr, [facility] [place] [facility] [address] [facility] [id number], [place] [address]- 0803 Apr, [facility] [address] [facility] [id number], [place] [id number] Apr, [facility] [place] [facility] [address] [facility] [id number], [place] 733567- 2066 Apr, [facility] [place] [facility] [address] [facility] [id number], [place] 81843929- 3067 Apr, [facility] [address] [facility] [id number], [place] [id number] March, [facility] [place] [facility] [address] [id number] [place] [address]- 2546 March, [facility] [place] [facility] [address] [facility] [id number] [place] [address]- 2546 March, [facility] [address] [facility] [id number] [place] [id number] March, [facility] [place] [facility] [address] [facility] [id number] [place] [address]- 2546 March, [facility] [address] [id number] [place] [id number] March, [facility] [place] [facility] [address] [facility] [id number] [place] [address]- 5706 March, [facility] [address] [facility] [id number] [place] [id number] Feb, [facility] [place] [facility] [address] [place] [address]- 9086 Feb, [facility] [place] [facility] [address] [facility] [id number] [place] [address]- 6526 Jan, [facility] [address] [facility] [id number] [place] [id number] Jan, [facility] [place] [facility] [address] [facility] [id number], [place] [address]- 4776 Jan, [facility] [place] [facility] [address] [place] [id number] [place] [address]- 2546 Jan, [facility] [address] [facility] [id number], [place] [id number] Jan, [facility] [address] [id number] [place] [id number] Dec, [facility] [place] [facility] [address] [facility] [id number] [place] [address]- 2546 Dec, [facility] [place] [facility] [address] [facility] [id number] [place] [address]- 9076 Dec, [facility] [address] [facility] [id number] [place] [id number] Dec, [facility] [address] [facility] [id number], [place] [address] Dec, [facility] [address] [facility] [id number][place] [id number] Dec, [facility] [id number], [place] [address] Dec, [facility] [place] [facility] [address] [facility] [id number], [place] [address] Dec, [facility] [address] [facility] [id number] [place] [id number] Dec, [facility] [address] [facility] [id number][place] [id number] Nov, [facility] [place] [facility] [id number], [place] [address] Nov, [facility] [place] [facility] [id number], [place] [address] Nov, [facility] [address] [facility] [id number][place] [id number] Nov, [facility] [address] [facility] [id number][place] [id number] Oct, [facility] [place] [facility] [address] [id number], [place] [address] Oct, [facility] [address] [facility] [id number][place] [id number] Oct, [facility] [place] [facility] [address] [facility] [id number], [place] [address] Oct, [facility] [place] [facility] [address] [facility] [id number], [place] [address] Oct, [facility] [place] [facility] [address] [facility] [id number], [place] [address] Oct, [facility] [address] [id number][place] [id number] Oct, [facility] [address] [id number], [place] [address] Oct, [facility] [place] [facility] [address] [facility] [id number], [place] [address] Sep, [facility] [address] [facility] [id number], [place] [address] Sep, [facility] [address] [id number][place] [id number] Sep, [facility] [address] [id number], [place] [address] Sep, [facility] [place] [facility] [address] [id number], [place] [address] Sep, [facility] [address] [facility] [id number][place] [id number] Sep, [facility] [address] [facility] [id number][place] [id number] Aug, [facility] [address] [facility] [id number], [place] [address] Aug, [facility] [place] [facility] [address] [facility] [id number], [place] [address] Aug, [facility] [address] [facility] [id number][place] [id number] Aug, [facility] [address] [facility] [id number][place] [id number] Aug, [facility] [place] [facility] [address] [facility] [id number], [place] [address] Aug, [facility] [place] [facility] [address] [facility] [id number][place] [address] Aug, [facility] [place] [facility] [address] [facility] [id number], [place] [address] Aug, [facility] [place] [address] [facility] [id number][place] [id number] Jul, [facility] [place] [facility] [address] [id number], [place] [address] Jul, [facility] [address] [facility] [id number], [place] [address] Jul, [facility] [place] [address] [id number] [place] [id number] Jul, [facility] [place] [address] [facility] [id number] [place] [id number] Jul, [facility] [id number] [place] [address] May, [facility] [place] [facility] [address] [facility] [id number], [place] [address] Apr, [facility] [place] [address] [id number] [place] [id number] Apr, [facility] [place] [address] [id number] [place] [id number] Apr, [facility] [address]00565[address], [place] [address] March, [facility] [place] [address] [id number] [place] [id number] March, [facility] [place] [address] [id number] [place] [id number] March, [facility] [place] [address] [id number], [place] [id number] March, [facility] [place] [address] [id number], [place] [id number] March, [facility] [place] [address] [id number][place] [id number] March, [facility] [place] [facility] [address] [facility] [id number], [place] [address] March, [facility] [place] [facility] [address] [facility] [id number], [place] [address] March, [facility] [place] [facility] [address] [facility] [id number], [place] [address] Feb, [facility] [place] [address] [facility] [id number][place] [id number] Feb, [facility] [place] [address] [id number] [place] [id number] Feb, [facility] [place] [address] [id number] [place] [id number] Feb, [facility] [address] [facility] [id number], [place] [address] Feb, [facility] [place] [address] [id number] [place] [id number] Feb, [facility] [place] [address] [id number] [place] [id number] Jan, [facility] [place] [address] [id number] [place] [id number] Jan, [facility] [place] [address] [id number] [place] [id number] Dec, [facility] [place] [address] [id number] [place] [id number] Dec, [facility] [address], [place] [address] Dec, [facility] [place] [address] [id number] [place] [id number] Dec, [facility] [place] [address] [id number] [place] [id number] Dec, [facility] [place] [address] [id number] [place] [id number] Dec, [facility] [place] [address] [id number] [place] [id number] Dec, [facility] [address] [facility] [id number], [place] [address] Nov, [facility] [place] [address] [id number] [place] [id number] Nov, [facility] [place] [address] [id number] [place] [id number] Nov, [facility] [place] [address] [id number] [place] [id number] Nov, [facility] [place] [address] [id number] [place] [id number] Nov, [facility] [place] [facility] [address] [id number] [place] [address] Oct, [facility] [place] [address] [id number] [place] [id number] Oct, [facility] [place] [address] [id number] [place] [id number] Oct, [facility] [place] [address] [id number] [place] [id number] Oct, [facility] [place] [facility] [address] [id number] [place] [address] Oct, [facility] [place] [facility] [address] [facility] [id number], [place] [address] Oct, [facility] [place] [facility] [address] [facility] [id number], [place] [address] Oct, [facility] [place] [address] [id number], [place] [address]2413 Sep, [facility] [place] [facility] [address] [facility] [id number] [place] [address]- [address] Sep, [facility] [place] [facility] [address] [facility] [id number], [place] [address] Sep, [facility] [place] [address] [id number], [place] [address]56286108 Sep, [facility] [address] [id number] [place] [id number] Sep, [facility] [place] [address] [id number], [place] [address]38721601 Sep, [facility] [place] [facility] [address] [facility] [id number], [place] [address] Sep, [facility] [place] [facility] [address] [facility] [id number], [place] [address] Sep, [facility] [place] [facility] [address] [facility] [id number], [place] [address]- [address] Sep, [facility] [place] [address] [id number] [place] [id number] Aug, [facility] [place] [facility] [address] [id number], [place] [address] Aug, [facility] [place] [address] [id number] [place] [id number] Aug, [facility] [address] [facility] [id number], [place] [address] Aug, [facility] [place] [facility] [address] [facility] [id number], [place] [address]- [address] Aug, [facility] [place] [address] [id number] [place] [id number] Aug, [facility] [place] [address] [id number] [place] [id number] Aug, [facility] [address] [facility] [id number], [place] [address]- [address] Aug, [facility] [place] [address] [id number] [place] [id number] Aug, [facility] [place] [address] [id number] [place] [id number] Jul, [facility] [place] [address] [id number] [place] [id number] Jun, [facility] [place] [address] [id number] [place] [id number] May, [facility] [place] [address] [id number] [place] [id number] May, [facility] [place] [address] [id number] [place] [id number] May, [facility] [place] [address] [id number] [place] 929717511 May, [facility] [place] [address] [id number] [place] [id number] May, [facility] [place] [address] [id number] [place] [id number] May, [facility] [place] [address] [id number] [place] [id number] May, [facility] [place] [address] [id number] [place] [id number] Apr, [facility] [place] [address] [id number] [place] 860[place]352 Apr, [facility] [place] [address] [id number] [place] [id number] Apr, [facility] [place] [address] [id number] [place] [id number] Apr, [facility] [place] [address] [id number] [place] [id number] Apr, [facility] [place] [address] [id number] [place] [id number] Apr, [facility] [place] [address] [id number] [place] 415024443 March, [facility] [place] [address] [id number] [place] 712459533 March, [facility] [place] [address] [id number] [place] [id number] Feb, [facility] [place] [address] [id number] [place] 446198216 Feb, [facility] [place] [address] [id number] [place] 083165576 Feb, [facility] [place] [address] [id number] [place] 601391165 Jan, [facility] [place] [address] [id number] [place] [id number] Jan, [facility] [place] [address] [id number] [place] [id number] Jan, [facility] [place] [address] [id number] [place] 342391222 Jan, [facility] [place] [address] [id number] [place] 708006981 Dec, [facility] [address] [facility] [id number] [place] [address]- [address] Dec, [facility] [place] [address] [id number] [place] [id number] Dec, [facility] [place] [address] [id number] [place] [id number] Nov, [facility] [place] [address] [id number] [place] [id number] Nov, [facility] [place] [address] [facility] [id number] [place] [id number] Nov, [facility] [place] [facility] [address] [facility] [id number] [place] [address]- [address] Oct, [facility] [place] [facility] [address] [id number], [place]- [address]39 Oct, [facility] [place] [facility] [address] [id number] [place] [address]- 9179 Oct, [facility] [place] [facility] [address] [facility] [id number], [place] [address]- [address]65 Aug, [facility] [place] [facility] [address] [id number], [place] [address]- [address]35 Aug, [facility] [place] [facility] [address] [facility] [id number], [place] [address]- 0771 Aug, [facility] [place] [facility] [address] [facility] [id number], [place] [address]- 5369 March, [facility] [place] [facility] [address] [facility] [id number], [place] [address]- 2785 Oct, [facility] [place] [facility] [address] [id number], [place] [address]- 2645 Oct, [facility] [place] [facility] [address] [id number], [place] [address]- 1018 Sep, [facility] [place] [facility] [address] [id number], [place] [address]- 9088 Sep, [facility] [place] [facility] [address] [facility] [id number], [place] 292064- 4[address] Sep, [facility] [place] [facility] [address] [facility] [id number], [place] [address]- 2852 Aug, [facility] [place] [facility] [address], [place] [address]- [address] 11 Aug, 2010 [facility] [address] [facility] [id number], [place] [address]- 1190 Jun, [facility] [address] [id number], [place] [address]- [address]67 May, [facility] [address]65[address], [place] [address]- [address] Jan, [facility] [address] [facility] [id number], [place] 703272- 4[address] Nov, [facility] [id number] [place] [address]- 8752 Oct, [facility] [id number], [place] [address]- 67[address] Sep, [facility] [id number] [place] [address]- 4842 Sep, [facility] [id number], [place] [address]- 9[address] Sep, [facility] [id number], [place] [address]- 1584 Sep, [facility] [address]65[address], [place] [address]- 8614 Sep, [facility] [address], [place] [address]- 7[address] Aug, [facility] [address] [id number], [place] [address]- 5041 Aug, [facility] [address]65[address], [place] [address]- [address] Jul, [facility] [address], [place] [address]- [address] Jun, IMMUNIZATIONS No Known Immunizations SOCIAL HISTORY Never Assessed REASON FOR VISIT Medication question PLAN OF CARE VITAL SIGNS MEDICATIONS Unknown [...] 08/2016 Hospitalization History chest pain ED visit [facility], pt scheduled for heart cath on May [facility] Chest pain-[facility] 12/22/16
--- OUTSIDE RECORDS SUMMARY | 2018-11-01 18:49 | XMS REPORT ---
Author Author AMBER HERNANDEZ [facility] Address [address] [place] [address] Care Team Providers Care Silk Presser Name Role Phone AMBER HERNANDEZ Unavailable PROBLEMS Type Condition ICD9-CM Code EUG04-XI Code Onset Dates Condition Status SNOMED Code Problem Other seasonal allergic rhinitis J30.2 Active 263844960 Problem Polyneuropathy associated with underlying disease G63 Active 888614354 Problem Other chronic pain G89.29 Active 44988858 Problem Vitamin D deficiency E55.9 Active 88015087 Problem Recurrent major depressive disorder, in partial remission F33.41 Active 57121071 Problem long-term 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 Active 447764527 Problem Syncope, unspecified syncope type R55 Active 510277448 Problem Stage 2 chronic kidney disease N18.2 Active 528336361 Problem Type 2 diabetes mellitus with diabetic polyneuropathy E11.42 Active 00095550 Problem Episodic mood disorder F39 Active 63982354 Problem Dyslipidemia E78.5 Active 955185694 Problem Serum creatinine raised R79.89 Active 913505356 Problem Lumbago with sciatica, left side M54.42 Active 320773815 Problem Generalized anxiety disorder F41.1 Active 89556493 Problem Lumbago with sciatica, right side M54.41 Active 729630752 ALLERGIES No Information ENCOUNTERS Encounter Location Date Diagnosis [facility] [id number], [place] [address] Aug, [facility] [address] [place] [address] 31496- 5416 Jun, Type 2 diabetes mellitus with diabetic polyneuropathy E11.42 ; Open wound T14.8XXA ; 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 ; Stage 2 chronic kidney disease N18.2 and Episodic mood disorder F39 [facility] [address] [place] [address] 82693- 3131 May, [place] [id number] [place] [address] 05075- 4232 March, [place] [id number] [place] [address] 85888- 4346 March, Type 2 diabetes mellitus with diabetic [...] H60.502 and Non-adherence to medical treatment Z91.19 [facility] [address] [id number] [id number] Feb, Dental examination Z01.20 [place] [id number] [place] [address] 03364- 7187 Feb, Labile hypertension R09.89 ; Syncope, unspecified syncope type R55 ; Chest pain, unspecified type R07.9 and Dyslipidemia E78.5 [place] [id number] [place] [address] 73622- 0775 Feb, [place] [id number] [place] [address] 62601- 0435 Jan, [facility] [address] [id number] [id number] Jan, Dental examination Z01.20 [place] [id number] [place] [address] 72328- 0011 Jan, Acute non-recurrent maxillary sinusitis J01.00 and Dyslipidemia E78.5 [facility] [address] [id number] [id number] Jan, Dental examination Z01.20 and Dental caries K02.9 [facility] [address] [id number] [id number] Jan, [facility] [address] [place] [address] AVE [id number] [address] Dec, Dental examination Z01.20 [facility] [address], [place] [address] Dec, Seasonal allergic rhinitis, unspecified trigger J30.2 [facility] [address], [place] [address] 2[address] Nov, [facility] [id number] [place] [address] 43193- 0116 Nov, Type 2 diabetes mellitus with diabetic polyneuropathy E11.42 ; Dyslipidemia E78.5 ; Lumbago with sciatica, right side M54.41 ; Lumbago with sciatica, left side M54.42 ; long-term 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 ; Polyneuropathy associated with underlying disease G63 ; Stage 2 chronic kidney disease N18.2 and Syncope, unspecified syncope type R55 [place] [address] [place] [address] 28357- 8412 Oct, Type 2 diabetes mellitus with diabetic polyneuropathy E11.42 ; Acute otitis externa of left ear, unspecified type H60.502 ; Overweight (BMI 25.0-29.9) E66.3 ; Dyslipidemia E78.5 and Polyneuropathy associated with underlying disease G63 [place] [address], [place] [address]- 1056 Sep, [place] [address] [place] [address] 88367- 8478 Aug, Abnormal mammogram R92.8 [place] [id number] [place] [address] 64532- 4695 Aug, Type 2 diabetes mellitus with diabetic polyneuropathy E11.42 [place] [address], [place] [address] 0936 Aug, [place] [id number] [place] [address] 06458- 8461 Aug, Type 2 diabetes mellitus with diabetic polyneuropathy E11.42 ; Syncope, unspecified syncope type R55 ; Other chronic pain G89.29 and Encounter for immunization Z23 [place] [id number] [place] [address] 54415- 5751 Aug, Type 2 diabetes mellitus with diabetic polyneuropathy E11.42 [place] [address] 21631- 0754 Jul, Type 2 diabetes mellitus with diabetic polyneuropathy E11.42 and Serum creatinine raised R79.89 [place] [address] 60956- 3707 Jul, Type 2 diabetes mellitus with diabetic polyneuropathy E11.42 and Serum creatinine raised R79.89 [place] [id number] [place] [address] 76960- 3074 May, [place] [address] 36467- 6328 May, [place] [id number] [place] [address] 93001- 7617 May, Head injury, initial encounter S09.90XA ; Facial pain R51 ; Neck pain M54.2 and Fall, initial encounter W19.XXXA [place] [id number] [place] [address] 39649- 0745 May, Type 2 diabetes mellitus with diabetic polyneuropathy E11.42 [place] [id number] [place] [address] 81559- 7411 May, [place] [id number] [place] [address] 63618- 4913 May, Type 2 diabetes mellitus with diabetic polyneuropathy E11.42 [facility] [id number] [place] [address] 31016- 1129 May, Dyslipidemia E78.5 ; 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 ; Type 2 diabetes mellitus with diabetic polyneuropathy E11.42 ; Generalized anxiety disorder F41.1 and Other seasonal allergic rhinitis J30.2 [place] [address], [place] [address]- 9447 Apr, Type 2 diabetes mellitus with diabetic polyneuropathy E11.42 [place] [address], [place] [address]- 2338 March, [place] [id number] [place] [address] 00253- 2766 March, Abnormal mammogram R92.8 [place] [id number] [place] [address] 13647- 0649 Feb, Abnormal mammogram R92.8 [place] [id number] [place] [address] 16584- 4319 Feb, Diabetes type 2, uncontrolled E11.65 [place] [id number] [place] [address] 84182- 1278 Feb, Screening for breast cancer Z12.39 [place] [address], [place] [address]- 7858 Jan, Screening for breast cancer Z12.39 [place] [id number] [place] [address] 34494- 2072 Jan, Type 2 diabetes mellitus with diabetic polyneuropathy E11.42 ; long-term 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 ; Other viral agents as the cause of diseases classified elsewhere B97.89 and Acute upper respiratory infection, unspecified J06.9 [place] [id number], [place] [address]- 7071 Jan, [place] [address] [place] [address] 04447- 9853 Dec, Diabetes type 2, uncontrolled E11.65 ; Dyslipidemia E78.5 ; Generalized anxiety disorder F41.1 ; Depression, unspecified depression type F32.9 ; long-term 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 and Polyneuropathy associated with underlying disease G63 [place] [id number] [place] [address] 87794- 1725 16 Dec, 2016 [place] [id number] [place] [address] 12500- 0593 Dec, [place] [id number] [place] [address] 16731- 7679 Dec, [place] [id number] [place] [address] 65262- 5956 Dec, [place] [id number] [place] [address] 71843- 8815 Oct, Well woman exam Z01.419 ; Screening for breast cancer Z12.39 ; long-term 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 ; Type 2 diabetes mellitus without complications E11.9 and Encounter for immunization Z23 [address] 93848- 2726 Sep, [place] [id number] [place] [address] 82741- 3516 Sep, Diabetes type 2, uncontrolled E11.65 ; Dyslipidemia E78.5 and Depression, unspecified depression type F32.9 [id number] [place] [address] 14030- 4772 Aug, Diabetes type 2, uncontrolled E11.65 ; Encounter for immunization Z23 ; Nasal congestion R09.81 and Ear pressure, bilateral H93.8X3 [place] [id number] [place] [address] 91868- 1871 Jul, Eustachian tube dysfunction, left H69.82 [place] [id number] [place] [address] 29852- 9997 Jun, [place] [id number] [place] [address] 94181- 6704 Jun, Hospital discharge follow-up Z09 ; Syncope, unspecified syncope type R55 and Acute suppurative otitis media of left ear without spontaneous rupture of tympanic membrane, recurrence not specified H66.002 [place] [address], [place] [address]- 1861 May, [place] [address], [place] [address]- 5099 May, [place] [address], [place] [address]- 2500 May, [place] [id number] [place] [address] 54897- 6495 May, Diabetes type 2, uncontrolled E11.65 ; [...] disturbance G47.9 and Generalized anxiety disorder F41.1 [place] [address], [place] [address]- 3876 March, [address]005[address] [address] March, Syncope, unspecified syncope type R55 and Depression, unspecified depression type F32.9 [facility] [id number] [place] [address] [id number] March, Orthostatic hypotension I95.1 [facility] [id number] [place] [address] March, [place] [address] [facility] [id number], [place] [address]- 6939 March, [facility] [address] [facility] [id number] [place] [address] [id number] Feb, [address] [address] [facility] [id number] [address] Feb, Dental examination Z01.20 [facility] [id number] [place] [address] [id number] Jan, [facility] [address] [id number] [place] [id number] Jan, [facility] [address] [address] Dec, Diabetes type 2, uncontrolled E11.65 [facility] [id number] [place] [id number] Nov, [facility] [address] [id number] [id number] Nov, Encounter for dental examination Z01.20 [facility] [address] [id number] [id number] Nov, Dental examination Z01.20 [facility] [place] [id number] [place] [address] [id number] Sep, Diabetes type 2, uncontrolled E11.65 [facility] [address] [id number][place] [address] Sep, Encounter for dental examination Z01.20 and Dental caries, unspecified K02.9 [facility] [address] [address] Sep, Bipolar 2 disorder F31.81 [facility] [address] [place] [address] [id number] Aug, [facility] [address] [address] Aug, Follow up V67.9 [facility] [address] [address]- 5912 Jul, Bipolar disorder, unspecified 296.80 [facility] [id number] [address] Jul, Thyroid enlarged 240.9 and Bipolar disorder, unspecified 296.80 [facility] [address] [address] Jun, Diabetes mellitus type 2, uncontrolled 250.02 ; Bipolar disorder, unspecified 296.80 and Rash 782.1 [facility] [address] [place] [address] [id number] Jun, [facility] [id number] [place] [address] May, Urinary tract infection 599.0 [facility] [id number] [place] [address] [id number] May, Urinary tract infection 599.0 [facility] [id number] [place] [address] May, [facility] [id number] [place] [address] [id number] May, Diabetes mellitus type 2, uncontrolled 250.02 and Pica in adults 307.52 [facility] [id number] [place] [address] [id number] Apr, Follow up V67.9 and Diabetes mellitus type 2, uncontrolled 250.02 [facility] [id number] [place] [address] [id number] Apr, [facility] [id number] [place] [address] 30620302- 3660 Apr, [facility] [id number] [place] [id number] Apr, Hyperlipidemia 272.4 [facility] [id number] [place] [address] [id number] March, Diabetes type 2, uncontrolled 250.02 [facility] [id number] [place] [address] March, Diabetes mellitus type 2, uncontrolled 250.02 [facility] [id number] [place] [address] [id number] March, Diabetes type 2, uncontrolled 250.02 [facility] [id number] [place] [id number] March, [facility] [id number] [place] [id number] March, [facility] [id number] [place] [id number] Feb, [facility] [id number] [place] [address] [id number]- 3546 Feb, [facility] [address], [place] [address]- 2546 Feb, [facility] [address] [facility] [id number] [place] [id number] Jan, [facility] [place] [facility] [id number], [place] [address]- 4016 Jan, [facility] [place] [facility] [address], [place] [address]- 8246 Jan, [facility] [address] [facility] [id number] [place] [id number] Jan, [facility] [place] [facility] [address], [place] [address]- 5146 Jan, [facility] [place] [facility] [address], [place] [address]- 0316 Jan, [facility] [id number] [place] [address] Jan, [facility] [place] [facility] [address], [place] [address]- 6136 Jan, [facility] [place] [facility] [address], [place] [address]- 9128 Dec, [facility] [id number] [place] [id number] Dec, [facility] [place] [facility] [address], [place] [address]- 2546 Dec, [facility] [id number] [place] [address] Dec, [facility] [place] [facility] [id number], [place] [address]- 8456 Dec, [facility] [id number] [place] [address] Dec, [facility] [place] [facility] [address], [place] [address]- 4886 Dec, [facility] [place] [facility] [address], [place] [address] 2546 Dec, 2014 [facility] [address] [id number] [place] [id number] Dec, [facility] [address] [facility] [id number] [place] [id number] Dec, [facility] [place] [facility] [address] [facility] [id number] [place] [address]- 3126 Dec, [facility] [place] [facility] [address] [facility] [id number], [place] [address]- 3967 Nov, [facility] [place] [facility] [address] [facility] [id number] [place] [address]- 8063 Oct, [facility] [place] [facility] [address] [facility] [id number], [place] [address]- 9721 Oct, [facility] [address] [id number] [place] [id number] Sep, [facility] [place] [facility] [id number], [place] [address]- 8180 Sep, [facility] [address] [facility] [id number] [place] [id number] Sep, [facility] [place] [facility] [address] [facility] [id number], [place] [address]- 6563 Sep, [facility] [address] [facility] [id number] [place] [address] Aug, [facility] [place] [facility] [address] [facility] [id number], [place] [address]- 4946 Aug, [facility] [address] [facility] [id number] [place] [id number] Aug, [facility] [place] [facility] [address] [facility] [id number], [place] [address]- 6757 Aug, [facility] [place] [facility] [address] [facility] [id number], [place] [address]- 9476 Jul, [facility] [place] [facility] [address] [facility] [id number], [place] [address]- 7568 Jul, [facility] [address] [id number] [place] [id number] Jul, [facility] [place] [facility] [address] [facility] [id number] [place] [address]- 4173 Jul, [facility] [address] [id number] [place] [id number] Jun, [facility] [address] [facility] [id number] [place] [id number] Jun, [facility] [place] [facility] [address] [facility] [id number] [place]- 5330 Jun, [facility] [place] [facility] [address] [facility] [id number] [place] [address]- 1390 Jun, [facility] [address] [facility] [id number] [place] [id number] Jun, [facility] [place] [facility] [address] [facility] [id number], [place] [address]- 4197 Jun, [facility] [address] [facility] [id number] [place] [address] May, [facility] [place] [facility] [address] [facility] [id number], [place] [address]- 0677 May, [facility] [place] [facility] [address] [facility] [id number], [place] [address]- 7273 Apr, [facility] [place] [facility] [address] [facility] [id number], [place] [address]- 3745 Apr, [facility] [address] [facility] [id number] [place] [address] Apr, [facility] [place] [facility] [address] [facility] [id number] [place] [address]- 7974 Apr, [facility] [place] [facility] [address] [facility] [id number] [place] [address]- 9586 Apr, [facility] [address] [facility] [id number] [place] [id number] March, [facility] [place] [facility] [address] [facility] [id number] [place] [address]- 5559 March, [facility] [place] [facility] [address] [facility] [id number] [place] [address]- 6859 March, [facility] [address] [facility] [id number] [place] [id number] March, [facility] [place] [facility] [address] [facility] [id number] [place] [address]- 9446 March, [facility] [address] [facility] [id number] [place] [id number] March, [facility] [place] [facility] [address] [facility] [id number] [place] [address]- 6986 March, [facility] [address] [facility] [id number] [place] [id number] Feb, [facility] [place] [facility] [id number] [place] [address]- 3766 Feb, [facility] [place] [facility] [address] [place] [address]- 9065 Jan, [facility] [address] [facility] [id number] [place] [id number] Jan, [facility] [place] [facility] [address] [place] [address]- 0226 Jan, [facility] [place] [facility] [id number], [place] [address]- 7346 Jan, [facility] [address] [facility] [id number] [place] [id number] Jan, [facility] [address] [facility] [id number] [place] [id number] Dec, [facility] [place] [facility] [address] [facility] [id number] [place] [address]- 3106 Dec, [facility] [place] [facility] [address] [facility] [id number], [place] [address]- 9236 Dec, [facility] [address] [facility] [id number] [place] [id number] Dec, [facility] [place] [facility] [address] [id number], [place] [address] Dec, [facility] [address] [facility] [id number] [place] [id number] Dec, [facility] [place] [facility] [address] [facility] [id number], [place] [address] Dec, [facility] [place] [facility] [address] [facility] [id number], [place] [address] Dec, [facility] [address] [facility] [id number] [place] [id number] Dec, [facility] [address] [facility] [id number] [place] [id number] Nov, [facility] [place] [facility] [address] [id number], [place] [address] Nov, [facility] [place] [facility] [id number], [place] [address] Nov, [facility] [address] [facility] [id number] [place] [id number] Nov, [facility] [address] [facility] [id number] [place] [id number] Oct, [facility] [place] [facility] [id number] [address] Oct, [facility] [address] [id number] [place] [id number] Oct, [facility] [place] [facility] [address] [id number], [place] [address] Oct, [facility] [place] [facility] [address] [facility] [id number], [place] [address] Oct, [facility] [place] [facility] [address] [facility] [id number][place] [address] Oct, [facility] [address] [id number] [place] [id number] Oct, [facility] [place] [facility] [id number] [address] Oct, [facility] [address] [id number], [place] [address] Sep, [facility] [address] [id number], [place] [address] Sep, [facility] [address] [id number] [place] [id number] Sep, [facility] [address] [facility] [id number], [place] [address] Sep, [facility] [address] [id number], [place] [address] Sep, [facility] [address] [facility] [address] [id number] [place] [id number] Sep, [facility] [address] [facility] [id number] [place] [id number] Aug, [facility] [address] [facility] [id number], [place] [address] Aug, [facility] [address] [id number], [place] [address] Aug, [facility] [address] [facility] [facility] [id number] [address] Aug, [facility] [place] [address] [facility] [id number] [place] [id number] Aug, [facility] [address], [place] [address] Aug, [facility] [place] [facility] [address] [facility] [id number], [place] [address] Aug, [facility] [place] [facility] [address] [facility] [id number], [place] [address] Aug, [facility] [place] [address] [facility] [id number] [place] [address] Jul, [facility] [place] [facility] [address] [facility] [id number], [place] [address] Jul, [facility] [place] [facility] [address] [facility] [id number], [place] [address] Jul, [facility] [place] [address] [id number] [place] [id number] Jul, [facility] [place] [address] [id number] [place] [id number] Jul, [facility] [address] [facility] [id number], [place] [address] May, [facility] [address] [facility] [id number], [place] [address] Apr, [facility] [place] [address] [id number] [place] [id number] Apr, [facility] [place] [address] [id number] [place] [id number] Apr, [facility] [address], [place] [address] March, [facility] [place] [address] [id number] [place] [id number] March, [facility] [place] [address] [id number] [place] [id number] March, [facility] [place] [address] [id number] [place] [id number] March, [facility] [place] [address] [id number] [place] [id number] March, [facility] [place] [address] [id number] [place] [id number] March, [facility] [address] [facility] [id number], [place] [address] March, [facility] [place] [facility] [address] [facility] [id number], [place] [address] March, [facility] [address] [facility] [id number], [place] [address] Feb, [facility] [place] [address] [id number] [place] [id number] Feb, [facility] [place] [address] [facility] [id number] [place] [id number] Feb, [facility] [place] [address] [id number] [place] [id number] Feb, [facility] [address] [facility] [id number], [place] [address] Feb, [facility] [place] [address] [id number] [place] [id number] Feb, [facility] [place] [address] [id number] [place] [id number] Jan, [facility] [place] [address] [id number] [place] [id number] Jan, [facility] [place] [address] [id number] [place] [id number] Dec, [facility] [place] [address] [id number] [place] [id number] Dec, [facility] [address]65100[place], [place] [address] Dec, [facility] [place] [address] [id number] [place] [id number] Dec, [facility] [place] [address] [id number] [place] [id number] Dec, [facility] [place] [address] [id number] [place] [id number] Dec, [facility] [place] [address] [id number] [place] [id number] Dec, [facility] [address], [place] [address] Nov, [facility] [place] [address] [id number] [place] [address] Nov, [facility] [place] [address] [id number] [place] [id number] Nov, [facility] [place] [address] [id number] [id number] Nov, [facility] [place] [address] [id number] [place] [id number] Nov, [facility] [address]100[facility] [place] [address] Oct, [facility] [place] [address] [id number] [place] [id number] Oct, [facility] [place] [address] [id number] [place] [id number] Oct, [facility] [place] [address] [id number] [place] [id number] Oct, [facility] [place] [facility] [address] [facility] [id number], [place] [address] Oct, [facility] [place] [facility] [address] [facility] [id number], [place] [address] Oct, [facility] [place] [facility] [address] [facility] [id number], [place] [address]- [address]73 Oct, [facility] [place] [address] [facility] [id number] [place] [id number] Sep, [facility] [place] [facility] [address] [facility] [id number], [place] [address]- [address] Sep, [facility] [place] [facility] [address] [facility] [id number], [place] [address]- [address]78 Sep, [facility] [place] [address] [id number] [place] [address] Sep, [facility] [place] [address] [id number] [place] [address]68[address] Sep, [facility] [place] [address] [id number] [place] [id number] Sep, [facility] [place] [facility] [address] [facility] [id number], [place] [address]- [address]687 Sep, [facility] [place] [facility] [address] [facility] [id number], [place] [address]- [address]87 Sep, [facility] [place] [facility] [address] [facility] [id number], [place] [address]- [address] Sep, [facility] [place] [address] [id number] [place] [id number] Aug, [facility] [place] [facility] [address] [facility] [id number], [place] [address] Aug, [facility] [place] [address] [id number] [place] [id number] Aug, [facility] [address] [facility] [id number], [place]12[place] [address]29 Aug, [facility] [address] [facility] [id number], [place] [address]- 4766 Aug, [facility] [place] [address] [id number] [place] [id number] Aug, [facility] [place] [address] [id number] [place] [id number] Aug, [facility] [address] [facility] [id number], [place] [address]647 Aug, [facility] [place] [address] [id number] [place] [id number] Aug, [facility] [place] [address] [id number] [place] [id number] Jul, [facility] [place] [address] [id number] [place] [id number] Jun, [facility] [place] [address] [id number] [place] [id number] May, [facility] [place] [address] [id number] [place] [id number] May, [facility] [place] [address] [id number] [place] [address] May, [facility] [place] [address] [id number] [place] [id number] May, [facility] [place] [address] [id number] [place] 043[place] May, [facility] [place] [address] [id number] [place] [id number] May, [facility] [place] [address] [id number] [place] [id number] May, [facility] [place] [address] [id number] [id number] Apr, [facility] [place] [address] [id number] [place] [id number] Apr, [facility] [place] [address] [id number] [id number] Apr, [facility] [place] [address] [id number] [place] [id number] Apr, [facility] [place] [address] [id number] [place] 628303791 Apr, [facility] [place] [address] [id number] [place] [id number] Apr, [facility] [place] [address] [id number] [place] [address] March, [facility] [place] [address] [id number] [place] [id number] March, [facility] [place] [address] [id number] [place] [id number] Feb, [facility] [place] [address] [id number] [place] 449[place]40[address] Feb, [facility] [place] [address] [id number] [id number] Feb, [facility] [place] [address] [id number] [place] [address]84[place] Jan, [facility] [place] [address] [id number] [place] [address] Jan, [facility] [place] [address] [id number] [place] 087009892 Jan, [facility] [place] [address] [id number] [place] 818724677 Jan, [facility] [place] [address] [id number] [place] [id number] Dec, [facility] [address] [facility] [id number], [place] 83925096- 7006 Dec, [facility] [place] [address] [id number] [place] [id number] Dec, [facility] [place] [address] [id number] [place] [id number] Nov, [facility] [place] [address] [id number] [place] [address] 09 Nov, 2011 [facility] [place] [address] [id number] [id number] Nov, [facility] [place] [facility] [address] [id number] [place] [address]- [address]24 Oct, [facility] [place] [facility] [address] [id number] [place] [address]- 4476 Oct, [facility] [place] [facility] [address] [id number] [place] [address]- 3424 Oct, [facility] [place] [facility] [address] [id number] [place] [address]- 9155 Aug, [facility] [place] [facility] [address] [id number] [place] [address]- 6728 Aug, [facility] [place] [facility] [address] [id number] [place] [address]- 7592 Aug, [facility] [place] [facility] [address] [id number] [place] [address]- [address]779 March, [facility] [place] [facility] [address] [id number] [place] [address]- 2015 Oct, [facility] [place] [facility] [address] [id number] [place] [address]- 6314 Oct, [facility] [place] [facility] [address] [id number], [place] [address]- 1556 Sep, [facility] [place] [facility] [address] [id number], [place] [address]- 3678 Sep, [facility] [place] [facility] [address] [id number] [place] [address] Sep, [facility] [place] [facility] [address] [facility] [id number] [place] [address]- 4240 Aug, [facility] [place] [facility] [address] [id number] [place] [address]- 6510 Aug, [facility] [place] [facility] [address], [place] [address]- [address] 17 Jun, 2010 [facility] [address]65[address], [place] [address]- [address] May, [facility] [address]65100[place], [place] [address]- 9426 Jan, [facility] [address]65100[place], [place] [address]- 8750 Nov, [facility] [address]65[address]- 8915 Oct, [facility] [id number] [place] [address]- 8506 Sep, [facility] [address]65[address], [place]- 6407 Sep, [facility] [id number] [place] [address]- 7630 Sep, [facility] [address]65100[place], [place] [address]- 0361 Sep, [facility] [address], [place] 412[place]- 5496 Sep, [facility] [address]65100[place], [place] [address]- 8647 Aug, [facility] [address], [place] [address]- 3538 Aug, [facility] [id number], [place] [address]- [address] Jul, [facility] [address]65100[place], [place] [address]- 6544 Jun, IMMUNIZATIONS No Known Immunizations SOCIAL HISTORY Never Assessed REASON FOR VISIT my . Oumar Alvarado can he be added to my. be slow PLAN OF CARE VITAL SIGNS MEDICATIONS Unknown [...] [facility] on May [facility] 12/22/16
--- OUTSIDE RECORDS SUMMARY | 2018-11-01 18:50 | XMS REPORT ---
Author Author OSWALDO ALTAMIRANO Organization [facility] Address [address] [place] [address] Care Team Providers Care Honey Extractor Name Role Phone OSWALDO ALTAMIRANO Unavailable PROBLEMS Type Condition ICD9-CM Code VWG68-GL Code Onset Dates Condition Status SNOMED Code Problem Other seasonal allergic rhinitis J30.2 Active 974026919 Problem Polyneuropathy associated with underlying disease G63 Active 048409119 Problem Other chronic pain G89.29 Active 53178963 Problem Vitamin D deficiency E55.9 Active 63919673 Problem Recurrent major depressive disorder, in partial remission F33.41 Active 57368420 Problem 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 project manager 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 Active 256265300 Problem Syncope, unspecified syncope type R55 Active 765284713 Problem Stage 2 chronic kidney disease N18.2 Active 972998173 Problem Type 2 diabetes mellitus with diabetic polyneuropathy E11.42 Active 95520354 Problem Episodic mood disorder F39 Active 19300439 Problem Dyslipidemia E78.5 Active 886475444 Problem Serum creatinine raised R79.89 Active 599030211 Problem Lumbago with sciatica, left side M54.42 Active 633559504 Problem Generalized anxiety disorder F41.1 Active 57326048 Problem Lumbago with sciatica, right side M54.41 Active 781753389 ALLERGIES Substance Reaction Event Type Date Status MetFORMIN HCl ER nausea and vomiting Drug Allergy March, Active Codeine Phosphate dizziness Drug Allergy March, Active metal/crown/watches rash Non Drug Allergy March, Active ENCOUNTERS Encounter Location Date Diagnosis [facility] [address] [facility] [id number] [place] [address] 85705- 6507 Jun, Type 2 diabetes mellitus with diabetic polyneuropathy E11.42 ; Open wound T14.8XXA ; 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 project manager 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 and Stage 2 chronic kidney disease N18.2 [facility] [address] [id number] [address] May, [place] [id number] [place] [address] 25870- 5061 March, [place] [address] [id number] [place] [address] 29060- 1695 March, Type 2 diabetes mellitus with diabetic [...] H60.502 and Non-adherence to medical treatment Z91.[address] [id number] [id number] Feb, Dental examination Z01.20 [place] [address] [id number] [place] [address] 41162- 1343 Feb, Labile hypertension R09.89 ; Syncope, unspecified syncope type R55 ; Chest pain, unspecified type R07.9 and Dyslipidemia E78.5 [place] [address] [id number] [place] [address] 21647- 3584 Feb, [place] [address] [id number] [place] [address] 54007- 1590 Jan, [address] [id number] [id number] Jan, Dental examination Z01.20 [place] [address] [address] [id number] [place] [address] 40212- 8134 Jan, Acute non-recurrent maxillary sinusitis J01.00 and Dyslipidemia E78.[address] [id number][place] [id number] Jan, Dental examination Z01.20 and Dental caries K02.[address] [id number][place] [id number] Jan, [facility] [address] [id number] [place] [address] Dec, Dental examination Z01.20 [facility] WALK IN [facility] [address], [place] [address] Dec, Seasonal allergic rhinitis, unspecified trigger J30.2 [place] [address] [address] [id number] [place] [address] 78075- 2817 Nov, [place] [address] [address] [id number] [place] [address] 30714- 0148 Nov, Type 2 diabetes mellitus with diabetic polyneuropathy E11.42 ; Dyslipidemia E78.5 ; Lumbago with sciatica, right side M54.41 ; Lumbago with sciatica, left side M54.42 ; 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 project manager 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 ; Polyneuropathy associated with underlying disease G63 ; Stage 2 chronic kidney disease N18.2 and Syncope, unspecified syncope type R55 [place] [address] [place] [id number] [place] [address] 69706- 6790 Oct, Type 2 diabetes mellitus with diabetic polyneuropathy E11.42 ; Acute otitis externa of left ear, unspecified type H60.502 ; Overweight (BMI 25.0-29.9) E66.3 ; Dyslipidemia E78.5 and Polyneuropathy associated with underlying disease G63 [place] [address] [address]- 4314 Sep, [place] [address] [address] [id number] [place] [address] 32174- 9720 Aug, Abnormal mammogram R92.8 [place] [address] [id number] [place] [address] 04815- 0840 Aug, Type 2 diabetes mellitus with diabetic polyneuropathy E11.42 [place] [id number] [place] [address] 75073- 4567 Aug, [place] [address] [address] [id number] [place] [address] 71687- 0099 Aug, Type 2 diabetes mellitus with diabetic polyneuropathy E11.42 ; Syncope, unspecified syncope type R55 ; Other chronic pain G89.29 and Encounter for immunization Z23 [place] [address] [place] [id number] [place] [address] 94467- 9008 Aug, Type 2 diabetes mellitus with diabetic polyneuropathy E11.42 [place] [id number] [place] [address] 54357- 5449 Jul, Type 2 diabetes mellitus with diabetic polyneuropathy E11.42 and Serum creatinine raised R79.89 [place] [address] [id number] [place] [address] 04586- 7681 Jul, Type 2 diabetes mellitus with diabetic polyneuropathy E11.42 and Serum creatinine raised R79.89 [place] [id number] [place] [address] 36739- 3611 May, [place] [address] [id number] [place] [address] 55523- 6382 May, [place] [address] [id number] [place] [address] 39654- 6871 May, Facial pain R51 ; Head injury, initial encounter S09.90XA ; Neck pain M54.2 and Fall, initial encounter W19.XXXA [place] [id number] [place] [address] 23894- 5326 May, Type 2 diabetes mellitus with diabetic polyneuropathy E11.42 [place] [address] [place] [id number] [place] [address] 58874- 6596 May, [place] [address] [address] [id number] [place] [address] 72726- 6368 May, Type 2 diabetes mellitus with diabetic polyneuropathy E11.42 [place] [address] [address] [id number] [place] [address] 80387- 4432 May, Dyslipidemia E78.5 ; 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 project manager 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 ; Type 2 diabetes mellitus with diabetic polyneuropathy E11.42 ; Generalized anxiety disorder F41.1 and Other seasonal allergic rhinitis J30.2 [place] [address] [place] [address] 79515- 0259 Apr, Type 2 diabetes mellitus with diabetic polyneuropathy E11.42 [place] [address] [place] [address] [id number] [place] [address] 99905- 6932 March, [place] [address] [address] [id number] [place] [address] 60751- 5932 March, Abnormal mammogram R92.8 [place] [address] [address] [id number] [place] [address] 27700- 1051 Feb, Abnormal mammogram R92.8 [place] [address] [id number] [place] [address] 37305- 7974 Feb, Diabetes type 2, uncontrolled E11.65 [place] [address] [place] [address] [id number] [place] [address] 14930- 5828 Feb, Screening for breast cancer Z12.39 [place] [address] [id number] [place] [address] 22066- 8390 Jan, Screening for breast cancer Z12.39 [place] [address] [place] [address] [id number] [place] [address] 34065- 3756 Jan, Type 2 diabetes mellitus with diabetic polyneuropathy E11.42 ; 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 project manager 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 ; Other viral agents as the cause of diseases classified elsewhere B97.89 and Acute upper respiratory infection, unspecified J06.9 [place] [address], [place] [address]- 8911 Jan, [place] [address] [place] [id number] [place] [address] 45912- 4676 Dec, Diabetes type 2, uncontrolled E11.65 ; Dyslipidemia E78.5 ; Generalized anxiety disorder F41.1 ; Depression, unspecified depression type F32.9 ; care home 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 and Polyneuropathy associated with underlying disease G63 [place] [address] [place] [address] 23573- 1247 16 Dec, 2016 [place] [address] [place] [address] [id number] [place] [address] 38386- 2736 14 Dec, 2016 [place] [address] [place] [id number] [place] [address] 67643- 6214 Dec, [place] [address] [place] [address] [id number] [place] [address] 18420- 5165 Dec, [place] [address] [place] [address] [id number] [place] [address] 06285- 4525 Oct, Well woman exam Z01.419 ; Screening for breast cancer Z12.39 ; 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 project manager 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 ; Type 2 diabetes mellitus without complications E11.9 and Encounter for immunization Z23 [place] [id number] [place] [address] 22569- 5971 Sep, [place] [address] [place] [address] [id number] [place] [address] 76092- 2008 Sep, Diabetes type 2, uncontrolled E11.65 ; Dyslipidemia E78.5 and Depression, unspecified depression type F32.9 [place] [address] [place] [address] [id number] [place] [address] 01907- 1686 Aug, Diabetes type 2, uncontrolled E11.65 ; Encounter for immunization Z23 ; Nasal congestion R09.81 and Ear pressure, bilateral H93.8X3 [place] [address] [place] [id number] [place] [address] 65745- 0265 Jul, Eustachian tube dysfunction, left H69.82 [place] [address] [place] [address] [id number] [place] [address] 02506- 0314 Jun, [place] [address] [place] [address] [id number] [place] [address] 72327- 5556 Jun, Hospital discharge follow-up Z09 ; Syncope, unspecified syncope type R55 and Acute suppurative otitis media of left ear without spontaneous rupture of tympanic membrane, recurrence not specified H66.002 [place] [address], [place] [address]- 5726 May, [place] [address] [place] [id number] [place] [address] 28932- 7115 May, [place] [address], [place] [address]- 4750 May, [place] [address] [place] [id number] [place] [address] 82710- 9368 May, Diabetes type 2, uncontrolled E11.65 ; [...] disturbance G47.9 and Generalized anxiety disorder F41.1 [place] [address], [place] [address]- 8010 March, [address] [place] [address] [id number] March, Syncope, unspecified syncope type R55 and Depression, unspecified depression type F32.9 [facility] [id number] [place] [address] [id number] March, Orthostatic hypotension I95.1 [facility] [id number] [address] March, [place] [address], [place] [address]- 9834 March, [facility] [id number] [place] [address] [id number] Feb, [facility] [address] [facility] [address] [id number] [id number] Feb, Dental examination Z01.20 [facility] [id number] [place] [address] [id number] Jan, [facility] [address] [place] [address] [id number] [address] Jan, [facility] [address] [address] Dec, Diabetes type 2, uncontrolled E11.65 [facility] [place] [id number][place] [address] Nov, [facility] [address] [facility] [address] [id number][place] [id number] Nov, Encounter for dental examination Z01.20 [facility] [place] [address] [facility] [address] [id number][place] [id number] Nov, Dental examination Z01.20 [facility] [address] [place] [address] [id number] Sep, Diabetes type 2, uncontrolled E11.65 [facility] [address] [id number][place] [address] Sep, Encounter for dental examination Z01.20 and Dental caries, unspecified K02.9 [facility] [address] [address] Sep, Bipolar 2 disorder F31.81 [facility] [address] [id number] Aug, [facility] [address] [place] [address] [id number] Aug, Follow up V67.9 [facility] [address] [address]- 5772 Jul, Bipolar disorder, unspecified 296.80 [facility] [place] [id number] [address] Jul, Thyroid enlarged 240.9 and Bipolar disorder, unspecified 296.80 [facility] [address] [address] Jun, Diabetes mellitus type 2, uncontrolled 250.02 ; Bipolar disorder, unspecified 296.80 and Rash 782.1 [facility] [address] [place] [address] [id number] Jun, [facility] [id number][place] [address] May, Urinary tract infection 599.0 [facility] [address] [place] [id number] [place] [address] [id number] May, Urinary tract infection 599.0 [facility] [id number] [place] [address] [id number] May, [facility] [address] [id number] [place] [address] [id number] May, Diabetes mellitus type 2, uncontrolled 250.02 and Pica in adults 307.52 [facility] [address] [id number] [place] [address] [id number] Apr, Follow up V67.9 and Diabetes mellitus type 2, uncontrolled 250.02 [facility] [id number] [place] [address] [id number] Apr, [facility] [address] [id number]- 2585 Apr, [facility] [id number] [place] [address] [id number] Apr, Hyperlipidemia 272.4 [facility] [address] [id number] [place] [address] [id number] March, Diabetes type 2, uncontrolled 250.02 [facility] [id number] [place] [address] [id number] March, Diabetes mellitus type 2, uncontrolled 250.02 [facility] [id number] [place] [address] [id number] March, Diabetes type 2, uncontrolled 250.02 [facility] [id number] [place] [address] [id number] March, [facility] [id number] [place] [address] [id number] March, [facility] [id number] [place] [address] [id number] Feb, [facility] [address] [id number]- 8073 Feb, [facility] [place] [facility] [address] [facility] [id number], [place] [address]- 2546 Feb, [facility] [address] [facility] [id number][place] [address] Jan, [facility] [place] [facility] [address] [facility] [id number], [place] [address] 2546 Jan, [facility] [place] [facility] [address]00565100[place], [place] [address]- 0766 Jan, [facility] [address] [facility] [id number][place] [id number] Jan, [facility] [place] [facility] [address], [place] [address]- 0046 Jan, [facility] [place] [facility] [address]00565100[place], [place] [address]- 1516 Jan, [facility] [id number], [place] [address] Jan, [facility] [place] [facility] [address]00565100[place], [place] [address]- 8676 Jan, [facility] [place] [facility] [address]005[address]100[place], [place] [address]- 5343 Dec, [facility] [id number], [place] 759[address]666 Dec, [facility] [place] [facility] [address] [id number], [place] [address]- 2546 Dec, [facility] [id number], [place] [id number] Dec, [facility] [place] [facility] [address] [id number], [place] [address]- 2546 Dec, [facility] [id number], [place] [id number] Dec, [facility] [place] [facility] [address] [id number], [place] [address]- 3156 Dec, [facility] [place] [facility] [address]100[place], [place] [address]- 2546 Dec, 2014 [facility] [address] [facility] [id number] [place] [id number] Dec, [facility] [address] [facility] [id number] [place] [id number] Dec, [facility] [place] [facility] [address] [id number] [place] [address]- 3806 Dec, [facility] [place] [facility] [address]00565100[place], [place] [address]- 7632 Nov, [facility] [place] [facility] [address] [id number], [place] [address]- 9567 Oct, [facility] [place] [facility] [address]- 5995 Oct, [facility] [id number], [place] [address] Sep, [facility] [place] [facility] [address]00565100[place], [place] [address]- 0865 Sep, [facility] [address] [place] [id number], [place] [id number] Sep, [facility] [place] [facility] [address]005[address]100[place], [place] [address]- 6748 Sep, [facility] [address] [place] [address] [id number], [place] [id number] Aug, [facility] [place] [facility] [address]00565100[place], [place] [address]- 7436 Aug, [facility] [address] [facility] [id number][place] [id number] Aug, [facility] [place] [facility] [address]65100[place], [place] [address]- 7683 Aug, [facility] [place] [facility] [address] [id number], [place] [address]- 5328 Jul, [facility] [place] [facility] [address]005[address]100[place], [place] [address]- 6277 Jul, [facility] [address] [id number] [place] [id number] Jul, [facility] [place] [facility] [address] [facility] [id number] [place] [address]- 9317 Jul, [facility] [address] [id number] [place] [id number] Jun, [facility] [address] [facility] [id number] [place] [id number] Jun, [facility] [place] [facility] [address] [facility] [id number] [place] [address]- 9799 Jun, [facility] [place] [facility] [address] [facility] [id number] [place] [address]- 4157 Jun, [facility] [address] [facility] [id number] [place] [id number] Jun, [facility] [place] [facility] [address]00565100[place], [place] [address]- 2048 Jun, [facility] [address] [facility] [id number], [place] 683130862 May, [facility] [place] [facility] [address] [facility] [id number], [place] [address]- 7237 May, [facility] [place] [facility] [address] [id number]- 8624 Apr, [facility] [place] [facility] [address] [facility] [id number], [place] [address]- 0997 Apr, [facility] [address] [facility] [id number], [place] 606656568 Apr, [facility] [place] [facility] [address] [facility] [id number] [place] [address]- 5875 Apr, [facility] [place] [facility] [address] [facility] [id number], [place] [address]- 9985 Apr, [facility] [address] [facility] [id number], [place] 144825149 March, [facility] [place] [facility] [address] [facility] [id number], [place] 27434198- 9246 March, [facility] [address] [facility] [id number] [place] [address]- 3791 March, [facility] [address] [facility] [id number] [place] [address]87[address]752 March, [facility] [address] [id number] [place] [address]- 8936 March, [facility] [address] [facility] [id number] [place] [id number] March, [facility] [address] [facility] [id number] [place] [address]- 3011 March, [facility] [address] [facility] [id number] [place] [id number] Feb, [facility] [address] [id number], [place] [address]- 2736 Feb, [facility] [address]00565100[place], [place] [address]- 7794 Jan, [facility] [address] [facility] [id number], [place] [id number] Jan, [facility] [place] [facility] [address]00565100[place], [place] [address]- 9656 Jan, [facility] [address] [id number], [place] [address]- 9960 Jan, [facility] [address] [facility] [id number], [place] [id number] Jan, [facility] [address] [facility] [id number], [place] [id number] Dec, [facility] [place] [facility] [address] [facility] [id number], [place] [address]- 0736 Dec, [facility] [place] [facility] [address] [facility] [id number][place] [address]- 4776 Dec, [facility] [address] [facility] [id number] [place] 813743482 Dec, [facility] [place] [facility] [address] [id number], [place] [address]- 2546 Dec, [facility] [address] [facility] [id number] [place] [id number] Dec, [facility] [place] [facility] [address] [facility] [id number] [address] Dec, [facility] [place] [facility] [address] [facility] [id number], [place] [address] Dec, [facility] [address] [id number] [place] [id number] Dec, [facility] [address] [id number] [place] [id number] Nov, [facility] [place] [facility] [address] [facility] [id number], [place] [address] Nov, [facility] [place] [facility] [id number], [place] [address] Nov, [facility] [address] [facility] [id number][place] [id number] Nov, [facility] [address] [facility] [id number] [place] [id number] Oct, [facility] [place] [facility] [address] [id number], [place] [address] Oct, [facility] [address] [facility] [id number][place] [id number] Oct, [facility] [place] [facility] [address] [facility] [id number], [place] [address] Oct, [facility] [place] [facility] [address] [facility] [id number], [place] [address] Oct, [facility] [place] [facility] [address] [facility] [id number], [place] [address] Oct, [facility] [address] [facility] [id number][place] [id number] Oct, [facility] [place] [facility] [address] [id number], [place] [address] Oct, [facility] [address] [id number], [place] [address] Sep, [facility] [address] [id number], [place] [address] Sep, [facility] [address] [id number] [place] [id number] Sep, [facility] [place] [facility] [address] [facility] [id number], [place] [address] Sep, [facility] [address] [id number] [place] [address] Sep, [facility] [address] [id number] [id number] Sep, [facility] [address] [id number][place] [id number] Aug, [facility] [place] [facility] [address] [facility] [id number], [place] [address] Aug, [facility] [address] [facility] [id number], [place] [address] Aug, [facility] [address] [id number][place] [id number] Aug, [facility] [address] [facility] [id number][place] [id number] Aug, [facility] [place] [facility] [address] [facility] [id number], [place] [address] Aug, [facility] [place] [facility] [address] [facility] [id number], [place] [address] Aug, [facility] [place] [facility] [address] [facility] [id number], [place] [address] Aug, [facility] [address] [facility] [id number][place] [id number] Jul, [facility] [place] [facility] [address] [facility] [id number], [place] [address] Jul, [facility] [place] [facility] [address] [facility] [id number], [place] [address] Jul, [facility] [place] [address] [id number] [place] [id number] Jul, [facility] [place] [address] [id number] [place] [id number] Jul, [facility] [address] [facility] [id number], [place] [address] May, [facility] [address] [facility] [id number], [place] [address] Apr, [facility] [place] [address] [id number] [place] [id number] Apr, [facility] [place] [address] [id number] [place] [id number] Apr, [facility] [address] [facility] [id number], [place] [address] March, [facility] [place] [address] [id number] [place] [id number] March, [facility] [place] [address] [id number] [place] [id number] March, [facility] [place] [address] [id number] [place] [id number] March, [facility] [place] [address] [id number] [place] [id number] March, [facility] [place] [address] [id number] [place] [id number] March, [facility] [address] [facility] [id number], [place] [address] March, [facility] [place] [address] [facility] [id number], [place] [address] March, [facility] [address] [facility] [id number], [place] [address] Feb, [facility] [place] [address] [id number] [place] [id number] Feb, [facility] [place] [address] [id number] [place] [id number] Feb, [facility] [place] [address] [id number] [place] [id number] Feb, [facility] [address] [facility] [id number], [place] [address] Feb, [facility] [place] [address] [id number] [place] [id number] Feb, [facility] [place] [address] [id number] [place] [id number] Jan, [facility] [place] [address] [id number] [place] [id number] Jan, [facility] [place] [address] [id number] [place] [id number] Dec, [facility] [place] [address] [id number] [place] [id number] Dec, [facility] [address] [address] Dec, [facility] [place] [address] [id number] [place] [id number] Dec, [facility] [place] [address] [id number] [place] [id number] Dec, [facility] [place] [address] [id number] [place] [id number] Dec, [facility] [place] [address] [id number] [place] [id number] Dec, [facility] [address] [id number] [address] Nov, [facility] [place] [address] [id number] [place] [id number] Nov, [facility] [place] [address] [id number] [place] [id number] Nov, [facility] [place] [address] [id number] [place] [id number] Nov, [facility] [place] [address] [id number] [place] [id number] Nov, [facility] [address], [place] [address] Oct, [facility] [place] [address] [id number] [place] [id number] Oct, [facility] [place] [address] [id number] [place] [id number] Oct, [facility] [place] [address] [id number] [place] [id number] Oct, [facility] [address] [facility] [id number], [place] [address] Oct, [facility] [address] [facility] [id number], [place] [address] Oct, [facility] [address] [facility] [id number][place] [address] Oct, [facility] [place] [address] [facility] [id number] [place] [id number] Sep, [facility] [address] [facility] [id number], [place] [address] Sep, [facility] [address] [facility] [id number][place] [address] Sep, [facility] [place] [address] [id number][place] [id number] Sep, [facility] [place] [address] [id number][place] [id number] Sep, [facility] [place] [address] [id number][place] [id number] Sep, [facility] [address] [facility] [id number], [place] [address] Sep, [facility] [address] [facility] [id number][place] [address] Sep, [facility] [address] [facility] [id number][place] [address] Sep, [facility] [place] [address] [id number][place] [address]235048 Aug, [facility] [address] [facility] [id number], [place] [address] Aug, [facility] [place] [address] [id number] [place] [id number] Aug, [facility] [address] [facility] [id number], [place] [address] Aug, [facility] [address] [facility] [id number], [place] [address] Aug, [facility] [place] [address] [id number] [place] [id number] Aug, [facility] [place] [address] [id number] [place] [id number] Aug, [facility] [address] [facility] [id number], [place]608[place] Aug, [facility] [place] [address] [id number] [place] [id number] Aug, [facility] [place] [address] [id number] [place] [id number] Jul, [facility] [address] [id number] [place] [id number] Jun, [facility] [address] [id number] [place] [id number] May, [facility] [place] [address] [id number] [place] [id number] May, [facility] [place] [address] [id number] [place] [id number] May, [facility] [place] [address] [id number] [place] [id number] May, [facility] [place] [address] [id number] [place] [id number] May, [facility] [place] [address] [id number] [place] [id number] May, [facility] [place] [address] [id number] [place] [id number] May, [facility] [place] [address] [id number] [place] [id number] Apr, [facility] [place] [address] [id number] [place] [id number] Apr, [facility] [place] [address] [id number] [place] [id number] Apr, [facility] [place] [address] [id number] [place] [id number] Apr, [facility] [place] [address] [id number] [id number] Apr, [facility] [place] [address] [id number] [place] [id number] Apr, [facility] [place] [address] [id number] [place] [id number] March, [facility] [place] [address] [id number] [place] [id number] March, [facility] [place] [address] [id number] [place] [id number] Feb, [facility] [place] [address] [id number] [place] [address]849545[address] Feb, [facility] [place] [address] [id number] [place] [id number] Feb, [facility] [place] [address] [id number] [place] [id number] Jan, [facility] [place] [address] [id number] [place] [id number] Jan, [facility] [place] [address] [id number] [place] [id number] Jan, [facility] [place] [address] [id number] [place] [id number] Jan, [facility] [place] [address] [id number] [place] [id number] Dec, [facility] [address] [id number], [place] [address] Dec, [facility] [place] [address] [id number] [place] [id number] Dec, [facility] [place] [address] [id number] [place] [id number] Nov, [facility] [place] [address] [id number] [place] [id number] Nov, [facility] [place] [address] [id number] [place] [id number] Nov, [facility] [place] [facility] [address] [id number], [place] [address] Oct, [facility] [place] [facility] [address] [facility] [id number] [place] [address]- [address] Oct, [facility] [place] [facility] [address] [id number] [place] [address]- 1098 Oct, [facility] [place] [facility] [address] [facility] [id number] [place] [address], [place] [address]- [address] Aug, [facility] [place] [facility] [address] [facility] [id number] [place] [address]- [address] Aug, [facility] [place] [facility] [address] [facility] [id number][place] [address]- [address]8 Aug, [facility] [place] [facility] [address] [facility] [id number] [place] [address]- 8580 March, [facility] [place] [facility] [address] [facility] [id number] [place] [address]- 1244 Oct, [facility] [place] [facility] [address] [facility] [id number], [place] [address]- 8[address] Oct, [facility] [place] [facility] [address] [facility] [id number], [place] [address]- [address]355 Sep, [facility] [place] [facility] [address] [facility] [id number], [place] [address]- 2034 Sep, [facility] [place] [facility] [address] [facility] [id number], [place]- [address] Sep, [facility] [place] [facility] [address] [facility] [id number], [place] [address]- [address] Aug, [facility] [place] [facility] [address] [facility] [id number], [place] [address]- [address]64 Aug, [facility] [place] [facility] [address]65100[place], [place] [address] Jun, [facility] [address]65100[place], [place] [address] May, [facility] [id number], [place] [address] 2546 Jan, [facility] [id number], [place] [address] 2546 Nov, [facility] [address] [facility] [id number], [place] [address] 2540 Oct, [facility] [id number] [place] [address] 2546 Sep, [facility] [address] [id number], [place] [address] 2545 Sep, [facility] [address] [id number], [place] [address] 2548 Sep, [facility] [address]65100[place], [place] [address] 2542 Sep, [facility] [address]65100[place], [place] [address] 2541 Sep, [facility] [address]65100[place], [place] [address] 2544 Aug, [facility] [address]65100[place], [place] [address]- [address] Aug, [facility] [address]65100[place], [place] [address] 2540 Jul, [facility] [address], [place] [address] 2543 Jun, IMMUNIZATIONS No Known Immunizations SOCIAL HISTORY Never Assessed REASON FOR VISIT DM f/u, needs labs and she is fasting (pt assuming lipids for Dr. Chapa). SLAVA Correa, Knots on left ear. PLAN OF CARE Activity Details Follow Up 3 Months, prn Reason:CHM/DM VITAL SIGNS Height 67.7 in 2018-03-18 Weight 200.5 lbs 2018-03-18 Temperature 99 degrees Fahrenheit 2018-03-18 Heart Rate 83 bpm 2018-03-18 Respiratory Rate 20 2018-03-18 BMI 30.75 kg/m2 2018-03-18 Blood pressure systolic 114 mmHg 2018-03-18 Blood pressure diastolic 64 mmHg 2018-03-18 MEDICATIONS Medication Instructions Dosage Frequency Start Date End Date Duration Status ProAir HFA 108 (90 Base) MCG/ACT Inhalation every 4-6 hours as needed 2 puffs Feb, 12 months Active Multivitamin Adult - Active Humalog 100 UNIT/ML Subcutaneous 3 times a day 23 units just before meals 8h Aug, 12 months Active Ciprodex 0.3-0.1 % Otic Twice a day 4 drops into left ear 12h March, 07 days Active Levemir 100 UNIT/ML Subcutaneous 2 times a day inject 50U in am and 50U at HS 12h Dec, 12 months Active True Metrix Blood Glucose Test 1 subcutaneously 2 times a day test blood sugar 12h Aug, Active Pen [place] 31G X 8 MM subcutaneously 2 times a day as directed 12h Dec Active Januvia 100MG Orally Once a day TAKE ONE TABLET BY MOUTH ONCE DAILY 24h 90 days Active Gabapentin 400MG Orally at bedtime 1 tablet 90 days Active Vitamin B-12 100 MCG Orally Once a day 1 tablet 24h Active Fluticasone Propionate 50MCG/ACT Nasally Once a day 1 spray in each nostril 24h 12 months Active iron Nov, Active Insulin Syringe-Needle U-100 1ML/31G subcutaneously Once a day as directed 24h Active Lancets 1 subcutaneously 2 times a day test blood sugar 12h Aug, Active Pen [place] 31G/8MM subcutaneously 2 times a day as directed 12h Active Losartan Potassium 25 MG Orally Once a day 1/2 tablet 24h March, 90 days Active Victoza 18MG/3ML Subcutaneous Once a day 1.8mg 24h March, 12 months Active Atorvastatin Calcium 40 mg Orally Once a day TAKE ONE TABLET BY MOUTH ONCE DAILY 24h 8 weeks Active Cetirizine HCl 10MG Orally Once a day TAKE ONE TABLET BY MOUTH ONCE DAILY 24h May, 90 days Active True Metrix Meter w/Device Test blood sugar 12h 24 Aug, 2017 Active Cymbalta 60 mg Orally Once a day 1 capsule 24h 30 Jul, 2015 90 days Active Ventolin HFA 108MCG/A INHALE TWO PUFFS BY MOUTH EVERY 4 TO 6 HOURS NEEDED FOR COUGH AND FOR SHORTNESS OF BREATH AND FOR WHEEZING Active Aspirin 81 MG Orally every 2 days 1 tablet 90 days Active Jardiance 10 mg Orally Once a day 1 tablet 24h March, Dec, 90 days Active Insulin Syringe-Needle U-100 28G X 1/2 subcutaneously Once a day as directed 24h Dec, Active RESULTS No Results PROCEDURES Procedure Date Ordered Result Body Site GLYCATED HEMOGLOBIN TEST March 18, 2018 LAB NOT BILLED BY [facility] March 18, 2018 VENIPUNCT, ROUTINE* March 18, 2018 INSTRUCTIONS MEDICATIONS ADMINISTERED No Known Medications [...] 08/2016 Hospitalization History chest pain ED visit [facility], pt scheduled for heart cath on May Hospitalization History [facility] 2012 Hospitalization History Chest pain-[facility] 12/22/16
--- OUTSIDE RECORDS SUMMARY | 2018-11-01 18:50 | XMS REPORT ---
Author Author OSWALDO ALTAMIRANO Organization [facility] Address [address] [place] [address] Care Team Providers Care Order Booker Name Role Phone OSWALDO ALTAMIRANO Unavailable PROBLEMS Type Condition ICD9-CM Code KBH78-WX Code Onset Dates Condition Status SNOMED Code Problem Other seasonal allergic rhinitis J30.2 Active 644400386 Problem Polyneuropathy associated with underlying disease G63 Active 904396492 Problem Other chronic pain G89.29 Active 35522432 Problem Vitamin D deficiency E55.9 Active 97304944 Problem Recurrent major depressive disorder, in partial remission F33.41 Active 15721562 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 Active 725622722 Problem Syncope, unspecified syncope type R55 Active 278869278 Problem Stage 2 chronic kidney disease N18.2 Active 242678654 Problem Type 2 diabetes mellitus with diabetic polyneuropathy E11.42 Active 88444237 Problem Episodic mood disorder F39 Active 59226967 Problem Dyslipidemia E78.5 Active 045523151 Problem Serum creatinine raised R79.89 Active 974114427 Problem Lumbago with sciatica, left side M54.42 Active 013448672 Problem Generalized anxiety disorder F41.1 Active 43059510 Problem Lumbago with sciatica, right side M54.41 Active [id number] ALLERGIES No Information ENCOUNTERS Encounter Location Date Diagnosis [facility] [address] [place] [address] 72150- 6051 Jun, Type 2 diabetes mellitus with diabetic polyneuropathy E11.42 ; Open wound T14.8XXA ; longterm 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 and Stage 2 chronic kidney disease N18.2 [facility] [id number] [address] 9399 May, [facility] [address] [place] [address] 60369- 6530 March, [place] [address] [address] March, Type 2 diabetes mellitus with diabetic [...] H60.502 and Non-adherence to medical treatment Z91.[address] [id number] [id number] Feb, Dental examination Z01.20 [place] [id number] [place] [address] 15866- 7573 Feb, Labile hypertension R09.89 ; Syncope, unspecified syncope type R55 ; Chest pain, unspecified type R07.9 and Dyslipidemia E78.5 [place] [id number] [place] [address] 78603- 3633 Feb, [place] [address] [address]- [address] Jan, [place] [address] [facility] [address] [id number] [id number] Jan, Dental examination Z01.20 [place] [id number] [place] [address] 56590- 9847 Jan, Acute non-recurrent maxillary sinusitis J01.00 and Dyslipidemia E78.5 [facility] [address] [facility] [id number] [id number] Jan, Dental examination Z01.20 and Dental caries K02.9 [facility] [address] [facility] [address] [id number][place] [id number] Jan, [facility] [address] [facility] [address] [id number][place] [id number] Dec, Dental examination Z01.20 [facility] [address] [place] [address] 79757 -2791 Dec, Seasonal allergic rhinitis, unspecified trigger J30.2 [place] [id number] [place] [address] 96479- 5055 Nov, [place] [address] 36817- 0633 Nov, Type 2 diabetes mellitus with diabetic polyneuropathy E11.42 ; Dyslipidemia E78.5 ; Lumbago with sciatica, right side M54.41 ; Lumbago with sciatica, left side M54.42 ; 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8 [place] [address] 66180- 6540 Aug, Type 2 diabetes mellitus with diabetic polyneuropathy E11.42 [place] [address] 59733- 4328 Aug, [place] [address] 90157- 1061 Aug, Type 2 diabetes mellitus with diabetic polyneuropathy E11.42 ; Syncope, unspecified syncope type R55 ; Other chronic pain G89.29 and Encounter for immunization Z23 [place] [address] [place] [address] 16407- 1179 13 Aug, 2017 Type 2 diabetes mellitus with diabetic polyneuropathy E11.42 [place] [address] [place] [address] 91857- 2796 Jul, Type 2 diabetes mellitus with diabetic polyneuropathy E11.42 and Serum creatinine raised R79.89 [place] [address] 52443- 4501 Jul, Type 2 diabetes mellitus with diabetic polyneuropathy E11.42 and Serum creatinine raised R79.89 [place] [address] 21108- 8862 May, [place] [address] 50038- 7681 May, [place] [address] 41473- 6780 May, Facial pain R51 ; Head injury, initial encounter S09.90XA ; Neck pain M54.2 and Fall, initial encounter W19.XXXA [place] [address] 68113- 7801 May, Type 2 diabetes mellitus with diabetic polyneuropathy E11.42 [place] [address] [place] [address] 07554- 2854 May, [place] [address] 73729- 2424 May, Type 2 diabetes mellitus with diabetic polyneuropathy E11.42 [place] [address] [place] [address] 99171- 1224 May, Dyslipidemia E78.5 ; 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 ; Type 2 diabetes mellitus with diabetic polyneuropathy E11.42 ; Generalized anxiety disorder F41.1 and Other seasonal allergic rhinitis J30.2 [place] [address] 98261- 7357 Apr, Type 2 diabetes mellitus with diabetic polyneuropathy E11.42 [place] [address] [address]- 7100 March, [place] [address] [address]- 9588 March, Abnormal mammogram R92.8 [place] [address] [address]- 5589 Feb, Abnormal mammogram R92.8 [place] [address] [place] [address] 31728- 1303 Feb, Diabetes type 2, uncontrolled E11.65 [place] [address] [place] [address] 73436- 7383 Feb, Screening for breast cancer Z12.39 [place] [address] [place] [address] 68900- 2408 Jan, Screening for breast cancer Z12.39 [place] [address] [address]- 4382 Jan, Type 2 diabetes mellitus with diabetic polyneuropathy E11.42 ; longterm 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 ; Other viral agents as the cause of diseases classified elsewhere B97.89 and Acute upper respiratory infection, unspecified J06.9 [place] [id number] [address]- 8781 Jan, [place] [address] [place] [address] 41386- 2386 Dec, Diabetes type 2, uncontrolled E11.65 ; Dyslipidemia E78.5 ; Generalized anxiety disorder F41.1 ; Depression, unspecified depression type F32.9 ; longterm 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 and Polyneuropathy associated with underlying disease G63 [place] [address] [place] [address] [id number] [address]- 9180 Dec, [place] [address] [place] [address] 01706- 8854 14 Dec, 2016 [place] [address] [address] [place] [address] 65481- 4782 Dec, [place] [address] [address] [place] [address] 15411- 4915 02 Dec, 2016 [place] [address] [address] [place] [address] 88055- 4539 Oct, Well woman exam Z01.419 ; Screening for breast cancer Z12.39 ; 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 ; Type 2 diabetes mellitus without complications E11.9 and Encounter for immunization Z23 [address] 97735- 3795 Sep, [place] [address] [place] [address] 33142- 6185 Sep, Diabetes type 2, uncontrolled E11.65 ; Dyslipidemia E78.5 and Depression, unspecified depression type F32.9 [place] [address] [place] [address] 25210- 3324 Aug, Diabetes type 2, uncontrolled E11.65 ; Encounter for immunization Z23 ; Nasal congestion R09.81 and Ear pressure, bilateral H93.8X3 [place] [address] [place] [address] 51513- 1696 Jul, Eustachian tube dysfunction, left H69.82 [place] [address] [place] [address] 69448- 3806 Jun, [place] [address] [place] [address] 71597- 9764 Jun, Hospital discharge follow-up Z09 ; Syncope, unspecified syncope type R55 and Acute suppurative otitis media of left ear without spontaneous rupture of tympanic membrane, recurrence not specified H66.002 [place] [address] [place] [address] 88814- 9977 May, [place] [address] [place] [address] [id number] [address]- 8792 May, [facility] [address] [address]- 5874 May, [facility] [address] [address]- 1515 May, Diabetes type 2, uncontrolled E11.65 ; [...] disturbance G47.9 and Generalized anxiety disorder F41.1 [place] [address] [address]- 8436 March, [address] [place] [address] [id number] March, Syncope, unspecified syncope type R55 and Depression, unspecified depression type F32.9 [place] [id number] [place] [address] [id number] March, Orthostatic hypotension I95.1 [facility] [id number], [place] [address]39[address] March, [place] [address] [facility] [id number] [place] [address]- 9349 March, [facility] [id number], [place] [id number] Feb, [facility] [address] [facility] [address] [id number][place] [id number] Feb, Dental examination Z01.20 [facility] [id number] [place] [address] [id number] Jan, [facility] [id number] [place] [address] [id number] Jan, [facility] [address] [place] [id number] [place] [address] [id number] Dec, Diabetes type 2, uncontrolled E11.65 [facility] [address] [facility] [id number][place] [address] Nov, [facility] [address] [facility] [address] [id number][place] [id number] Nov, Encounter for dental examination Z01.20 [facility] [place] [address] [id number][place] [id number] Nov, Dental examination Z01.20 [facility] [id number], [place] 94[address] Sep, Diabetes type 2, uncontrolled E11.65 [facility] [place] [address] [facility] [address] [id number], [place] [id number] Sep, Encounter for dental examination Z01.20 and Dental caries, unspecified K02.9 [facility] [address]00565100[place] [id number] Sep, Bipolar 2 disorder F31.81 [facility] [address]00565100[place], [place] [id number] Aug, [facility] [address] [address] Aug, Follow up V67.9 [facility] [address] [address]- 1265 Jul, Bipolar disorder, unspecified 296.80 [facility] [place] [id number] [address] Jul, Thyroid enlarged 240.9 and Bipolar disorder, unspecified 296.80 [facility] [place] [id number] [address] Jun, Diabetes mellitus type 2, uncontrolled 250.02 ; Bipolar disorder, unspecified 296.80 and Rash 782.1 [facility] [place] [address] [id number] [address] Jun, [facility] [place] [id number] [id number] May, Urinary tract infection 599.0 [facility] [place] [id number] [id number] May, Urinary tract infection 599.0 [facility] [place] [id number], [place] [id number] May, [facility] [id number] [place] [address] [id number] May, Diabetes mellitus type 2, uncontrolled 250.02 and Pica in adults 307.52 [facility] [id number] [place] [address] [id number] Apr, Follow up V67.9 and Diabetes mellitus type 2, uncontrolled 250.02 [facility] [id number] [place] [address] [id number] Apr, [facility] [id number] [place] [address] [id number]- 1277 Apr, [facility] [id number] [place] [address] [id number] Apr, Hyperlipidemia 272.4 [facility] [id number] [place] [address] [id number] March, Diabetes type 2, uncontrolled 250.02 [facility] [id number], [place] [address]1000[address] March, Diabetes mellitus type 2, uncontrolled 250.02 [facility] [id number] [place] [address] [id number] March, Diabetes type 2, uncontrolled 250.02 [facility] [address], [place] [id number] March, [facility] [id number], [place] [id number] March, [facility] [id number], [place] [id number] Feb, [facility] [id number] [place] [address] [id number]- 6268 Feb, [facility] [address] [place] [address] 41176217- 6014 Feb, [facility] [id number] [place] [address] [id number] Jan, [facility] [place] [facility] [address] [facility] [id number] [place] [address]- 5366 Jan, [facility] [place] [facility] [address] [facility] [id number] [place] [address]- 3176 Jan, [facility] [address] [facility] [id number], [place] 200600218 Jan, [facility] [place] [facility] [address] [facility] [id number] [place] [address]- 6416 Jan, [facility] [place] [facility] [address] [facility] [id number] [place] [address]- 9506 Jan, [facility] [address] [facility] [id number], [place] [id number] Jan, [facility] [place] [facility] [id number] [address]- 2286 Jan, [facility] [place] [facility] [id number] [address]- 5516 Dec, [facility] [address] [facility] [id number], [place] [id number] Dec, [facility] [place] [facility] [address] [facility] [id number] [place] [address]- 7696 Dec, [facility] [address] [address] [id number], [place] [id number] Dec, [facility] [place] [facility] [id number] [address]- 2106 Dec, [facility] [address] [facility] [id number], [place] [id number] Dec, [facility] [place] [facility] [address] [facility] [id number] [place] [address]- 4036 Dec, [facility] [place] [facility] [address] [facility] [id number] [place] [address]- 2546 Dec, [facility] [address] [place] [id number], [place] 323800988 Dec, [facility] [address] [facility] [id number], [place] 584254765 Dec, [facility] [place] [facility] [address] [facility] [id number] [place] [address]- 8323 Dec, [facility] [place] [facility] [address] [facility] [id number] [place] [address]- 1614 Nov, [facility] [place] [facility] [address] [place] [address] [id number] [place] [address]- 7301 Oct, [facility] [place] [facility] [address] [facility] [id number] [place] [address]- 8159 Oct, [facility] [address] [facility] [id number], [place] 120975245 Sep, [facility] [address]00565100[place] [address]- 0849 Sep, [facility] [address] [place] [address] [id number], [place] 226840638 Sep, [facility] [address]00565100[place] [address]- 4960 Sep, [facility] [address] [facility] [id number], [place] [id number] Aug, [facility] [place] [facility] [address] 00649967- 3775 Aug, [facility] [address] [facility] [id number], [place] 637238572 Aug, [facility] [place] [facility] [address]00565100[place] [address]- 6338 Aug, [facility] [place] [facility] [address] [facility] [id number] [place] [address]- 6850 Jul, [facility] [place] [facility] [address] [facility] [id number] [place] [address]- 5736 Jul, [facility] [address] [facility] [id number], [place] [id number] Jul, [facility] [place] [facility] [address] [place] [address]- 8106 Jul, [facility] [address] [id number] [place] [id number] Jun, [facility] [address] [id number] [place] [id number] Jun, [facility] [place] [facility] [address] [id number] [place] [address]- 3408 Jun, [facility] [place] [facility] [address] [facility] [id number] [place] [address]- 9322 Jun, [facility] [address] [id number] [place] [id number] Jun, [facility] [place] [facility] [address] [id number] [place] [address]- 3466 Jun, [facility] [address] [facility] [id number] [place] [id number] May, [facility] [place] [facility] [address] [facility] [id number] [place] [address]- 6245 May, [facility] [place] [facility] [address] [facility] [id number] [place] 0729 Apr, [facility] [place] [facility] [address] [facility] [id number] [place] [address]- 9992 Apr, [facility] [address] [facility] [id number] [place] [id number] Apr, [facility] [place] [facility] [address] [facility] [id number] [place] [address]- 6224 Apr, [facility] [place] [facility] [address] [facility] [id number] [place] [address]- 0576 Apr, [facility] [address] [facility] [id number] [place] [id number] March, [facility] [place] [facility] [address] [id number] [place] 2496 March, [facility] [place] [facility] [address] [facility] [id number] [place] [address]- 0958 March, [facility] [address] [facility] [id number] [place] [id number] March, [facility] [address] [facility] [id number] [place] [address]- 5396 March, [facility] [address] [facility] [id number], [place] [id number] March, [facility] [address] [facility] [id number] [place] [address]- 0742 March, [facility] [address] [facility] [id number], [place] [id number] Feb, [facility] [place] [facility] [address] [facility] [id number] [place] [address]- 7476 Feb, [facility] [place] [facility] [address] [id number] [address]- 3225 Jan, [facility] [id number], [place] [id number] Jan, [facility] [place] [facility] [address]00565[address] [address]- 9054 Jan, [facility] [place] [facility] [address] [id number] [address]- 7149 Jan, [facility] [address] [address] [id number], [place] [id number] Jan, [facility] [address] [facility] [id number], [place] [id number] Dec, [facility] [place] [facility] [address] [facility] [id number] [place] [address]- 3487 Dec, [facility] [place] [facility] [address] [facility] [id number] [place] [address]- 6752 Dec, [facility] [address] [facility] [id number], [place] [id number] Dec, [facility] [place] [facility] [address] [facility] [id number] [place] [address]- 3074 Dec, [facility] [address] [facility] [id number][place] [id number] Dec, [facility] [place] [facility] [address] [facility] [id number] [place] [address] Dec, [facility] [place] [facility] [address] [facility] [id number] [place] [address] Dec, [facility] [address] [facility] [id number] [place] [id number] Dec, [facility] [address] [facility] [id number] [place] [id number] Nov, [facility] [place] [facility] [address] [facility] [id number] [place] [address] Nov, [facility] [place] [facility] [address] [id number] [place] [address] Nov, [facility] [id number] [place] [id number] Nov, [facility] [id number] [place] [id number] Oct, [facility] [place] [facility] [address] [id number] [place] [address] Oct, [facility] [id number] [place] [id number] Oct, [facility] [place] [facility] [id number] [place] [address] Oct, [facility] [place] [facility] [id number] [place] [address] Oct, [facility] [place] [facility] [address] [facility] [id number] [place] [address] Oct, [facility] [address] [facility] [id number][place] [id number] Oct, [facility] [place] [facility] [address] [facility] [id number] [place] [address] Oct, [facility] [place] [facility] [id number] [place] [address] Sep, [facility] [place] [facility] [address] [facility] [id number] [place] [address] Sep, [facility] [address] [facility] [id number] [place] [id number] Sep, [facility] [place] [facility] [address] [facility] [id number] [place] [address] Sep, [facility] [place] [facility] [address] [facility] [id number] [place] [address] Sep, [facility] [address] [facility] [id number], [place] [id number] Sep, [facility] [address] [facility] [id number] [place] [id number] Aug, [facility] [place] [facility] [address] [facility] [id number] [place] [address] Aug, [facility] [place] [facility] [address]00565[address] [place] [address] Aug, [facility] [address] [facility] [id number], [place] [id number] Aug, [facility] [address] [facility] [id number][place] [id number] Aug, [facility] [place] [facility] [address] [facility] [id number] [place] [address] Aug, [facility] [place] [facility] [address] [facility] [id number] [place] [address] Aug, [facility] [place] [facility] [address] [facility] [id number] [place], [place] [address] Aug, [facility] [place] [address] [facility] [id number][place] [id number] Jul, [facility] [place] [facility] [address] [facility] [id number] [place] [address] Jul, [facility] [place] [facility] [address] [facility] [id number] [place] [address] 18 Jul, 2013 [facility] [place] [address] [facility] [id number][place] [id number] Jul, [facility] [place] [address] [id number] [place] [id number] Jul, [facility] [place] [facility] [address] [facility] [id number] [place] [address] May, [facility] [place] [facility] [address] [facility] [id number] [place] [address] Apr, [facility] [place] [address] [id number] [place] [id number] Apr, [facility] [place] [address] [id number] [place] [id number] Apr, [facility] [place] [facility] [address] [facility] [id number] [place] [address] March, [facility] [place] [address] [id number] [place] [id number] March, [facility] [place] [address] [id number] [place] [id number] March, [facility] [place] [address] [id number] [place] [id number] March, [facility] [place] [address] [id number] [place] [id number] March, [facility] [place] [address] [id number] [place] [id number] March, [facility] [address]00565100[place] [address] March, [facility] [place] [facility] [address] [facility] [id number] [place] [address] March, [facility] [place] [facility] [address] [facility] [id number] [place] [address] Feb, [facility] [place] [address] [id number] [place] [id number] Feb, [facility] [place] [address] [id number] [place] [id number] Feb, [facility] [place] [address] [id number] [place] [id number] Feb, [facility] [place] [facility] [address] [id number] [address] Feb, [facility] [place] [address] [id number] [place] [id number] Feb, [facility] [place] [address] [id number] [place] [id number] Jan, [facility] [place] [address] [id number] [place] [id number] Jan, [facility] [place] [address] [id number] [place] [id number] Dec, [facility] [place] [address] [id number] [place] [id number] Dec, [facility] [address] [address] Dec, [facility] [place] [address] [id number] [place] [id number] Dec, [facility] [place] [address] [id number] [place] [id number] Dec, [facility] [place] [address] [id number] [place] [id number] Dec, [facility] [address] [id number] [place] [address] Dec, [facility] [address] [facility] [id number] [place] [address] Nov, [facility] [place] [address] [id number] [place] [id number] Nov, [facility] [address] [id number] [place] [id number] Nov, [facility] [address] [id number] [place] [id number] Nov, [facility] [place] [address] [id number] [place] [address] Nov, [facility] [address] [facility] [id number] [place] [address] Oct, [facility] [place] [address] [id number] [place] [id number] Oct, [facility] [place] [address] [id number] [place] [id number] Oct, [facility] [place] [address] [id number] [place] [id number] Oct, [facility] [place] [facility] [address] [facility] [id number] [place] [address] Oct, [facility] [place] [facility] [address] [facility] [id number] [place] [address] Oct, [facility] [place] [facility] [address] [facility] [id number] [place] [address] Oct, [facility] [address] [id number] [place] [id number] Sep, [facility] [place] [facility] [address] [facility] [id number] [place] [address] Sep, [facility] [place] [facility] [address] [id number] [address] Sep, [facility] [address] [id number][place] [id number] Sep, [facility] [address] [id number][place] [id number] Sep, [facility] [address] [id number][place] [id number] Sep, [facility] [place] [facility] [address] [facility] [id number] [place] [address] Sep, [facility] [place] [facility] [address] [facility] [id number] [place] [address] Sep, [facility] [place] [facility] [address] [facility] [id number] [place] [address] Sep, [facility] [address] [id number][place] [address] Aug, [facility] [place] [facility] [address] [facility] [id number] [place] [address] [address] Aug, [facility] [address] [facility] [id number][place] [id number] Aug, [facility] [address] [id number] [place] [address] Aug, [facility] [address] [id number] [place] [address] Aug, [facility] [address] [id number] [place] [id number] Aug, [facility] [address] [id number] [place] [address] Aug, [facility] [address] [id number] [place] [address] Aug, [facility] [address] [id number] [place] [id number] Aug, [facility] [address] [id number] [place] [id number] Jul, [facility] [address] [id number] [place] [id number] Jun, [facility] [address] [id number] [place] [id number] May, [facility] [address] [id number] [place] [address]94[address] May, [facility] [address] [id number] [place] [id number] May, [facility] [address] [id number] [place] [id number] May, [facility] [address] [id number] [place] [id number] May, [facility] [address] [id number] [place] [address]60[place]3468 May, [facility] [address] [id number] [place] [id number] May, [facility] [address] [id number] [place] [address] Apr, [facility] [place] [address] [id number] [place] [address] Apr, [facility] [place] [address] [id number] [place] [id number] Apr, [facility] [address] [id number] [place] [id number] Apr, [facility] [place] [address] [id number] [place] [address] Apr, [facility] [place] [address] [id number] [place] [address]12[place] Apr, [facility] [place] [address] [id number] [place] [id number] March, [facility] [place] [address] [id number] [place] [id number] March, [facility] [place] [address] [id number] [place] [id number] Feb, [facility] [place] [address] [id number] [place] [id number] Feb, [facility] [place] [address] [id number] [place] [address] Feb, [facility] [place] [address] [id number] [place] [id number] Jan, [facility] [place] [address] [id number] [place] [id number] Jan, [facility] [place] [address] [id number] [place] [id number] Jan, [facility] [place] [address] [id number] [place] [id number] Jan, [facility] [place] [address] [id number] [place] [id number] Dec, [facility] [address] [facility] [id number] [place] [address]- [address] Dec, [facility] [place] [address] [id number] [place] [id number] Dec, [facility] [place] [address] [id number] [place] [id number] Nov, [facility] [place] [address] [id number] [place] [id number] Nov, [facility] [place] [address] [id number] [place] [id number] Nov, [facility] [place] [facility] [address] [id number] [place] [address]- [address] Oct, [facility] [place] [facility] [address] [id number] [place] [address]- [address]646 Oct, [facility] [place] [facility] [address] [id number] [place] [address]- [address] Oct, [facility] [place] [facility] [address] [id number] [place] [address]- 7326 Aug, [facility] [place] [facility] [address] [id number] [place] [address]- [address]28 Aug, [facility] [place] [facility] [address] [id number] [place] [address]- 1185 Aug, [facility] [place] [facility] [address] [id number] [place] [address]- [address] March, [facility] [place] [facility] [address] [id number] [place] [address]- [address] Oct, [facility] [place] [facility] [address] [id number] [place] [address]- [address]33 Oct, [facility] [place] [facility] [address] [id number] [place] [address]- [address] Sep, [facility] [place] [facility] [address] [id number] [place] [address]- [address]056 Sep, [facility] [place] [facility] [address] [id number] [place] [address]- [address]246 Sep, [facility] [place] [facility] [address] [id number] [place] [address]- [address] Aug, [facility] [place] [facility] [address] [id number] [place] [address]- 5046 Aug, [facility] [place] [facility] [address] [id number] [place] [address]- 7976 Jun, [facility] [place] [facility] [address] [id number] [place] [address] May, [facility] [address] [address] Jan, [facility] [address]65[address] [address]- [address] Nov, [facility] [address]00565100[place] [address]- [address] Oct, [facility] [address]65[address] [address] Sep, [facility] [id number] [place] [address]- [address]67 Sep, [facility] [address]65[address] [address]- [address]76 Sep, [facility] [id number] [place] [address]- [address] Sep, [facility] [address] [address]- [address] Sep, [facility] [address] [address]- [address]28 Aug, [facility] [address] [address]- [address] Aug, [facility] [address] [address]- [address] Jul, [facility] [address] [address]- [address] Jun, IMMUNIZATIONS No Known Immunizations SOCIAL HISTORY Never Assessed REASON FOR VISIT PA for jardiance PLAN OF CARE VITAL SIGNS MEDICATIONS No Known Medications RESULTS No Results PROCEDURES No Known [...] Hospitalization History [place] 2012 Hospitalization History Chest pain-[facility] 12/22/16
--- OUTSIDE RECORDS SUMMARY | 2018-11-01 18:51 | XMS REPORT ---
Author Author USMAN Chen [facility] Address [address] [place] [address] Care Team Providers Care Physics Technical Officer Name Role Phone USMAN Chen Unavailable PROBLEMS Type Condition ICD9-CM Code ARN79-AB Code Onset Dates Condition Status SNOMED Code Problem Other seasonal allergic rhinitis J30.2 Active 832031916 Problem Polyneuropathy associated with underlying disease G63 Active 345222025 Problem Other chronic pain G89.29 Active 48624243 Problem Vitamin D deficiency E55.9 Active 20422248 Problem Recurrent major depressive disorder, in partial remission F33.41 Active 48160745 Problem assisted 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 Active 025332974 Problem Syncope, unspecified syncope type R55 Active 633378106 Problem Stage 2 chronic kidney disease N18.2 Active 076052517 Problem Type 2 diabetes mellitus with diabetic polyneuropathy E11.42 Active 65235626 Problem Episodic mood disorder F39 Active 54002675 Problem Dyslipidemia E78.5 Active 688866503 Problem Serum creatinine raised R79.89 Active 957223729 Problem Lumbago with sciatica, left side M54.42 Active 284506298 Problem Generalized anxiety disorder F41.1 Active 64818715 Problem Lumbago with sciatica, right side M54.41 Active 396256025 ALLERGIES Substance Reaction Event Type Date Status MetFORMIN HCl ER nausea and vomiting Drug Allergy Feb, Active Codeine Phosphate dizziness Drug Allergy Feb, Active metal/crown/watches rash Non Drug Allergy Feb, Active ENCOUNTERS Encounter Location Date Diagnosis [facility] [address] [address] Jun, [facility] [address] [address] May, [facility] [address] [address] March, [place] [id number] [address] March, Type 2 diabetes mellitus with diabetic [...] H60.502 and Non-adherence to medical treatment Z91.19 [facility] [place] [address] [facility] [address] [id number] [id number] Feb, Dental examination Z01.20 [place] [address] [place] [id number] [place] [address]90- 4148 Feb, Labile hypertension R09.89 ; Syncope, unspecified syncope type R55 ; Chest pain, unspecified type R07.9 and Dyslipidemia E78.5 [place] [id number] [place] [address]39- 8795 Feb, [place] [address] [address] Jan, [facility] [place] [address] [facility] [address] [id number] [id number] Jan, Dental examination Z01.20 [place] [id number] [place] [address] 89942- 7210 Jan, Acute non-recurrent maxillary sinusitis J01.00 and Dyslipidemia E78.5 [facility] [place] [address] [facility] [address] [id number] [id number] Jan, Dental examination Z01.20 and Dental caries K02.9 [facility] [address] [id number] [id number] Jan, [facility] [address] [id number][place] [id number] Dec, Dental examination Z01.20 [facility]ALK IN [facility] [id number] [place] [address] -[address]463 Dec, Seasonal allergic rhinitis, unspecified trigger J30.2 [facility] [id number] [place] [address] 65711- 1661 Nov, [place] [address] [address]- 1201 Nov, Type 2 diabetes mellitus with diabetic polyneuropathy E11.42 ; Dyslipidemia E78.5 ; Lumbago with sciatica, right side M54.41 ; Lumbago with sciatica, left side M54.42 ; 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 ; Polyneuropathy associated with underlying disease G63 ; Stage 2 chronic kidney disease N18.2 and Syncope, unspecified syncope type R55 [place] [address] [address]- [address]12 Oct, Type 2 diabetes mellitus with diabetic polyneuropathy E11.42 ; Acute otitis externa of left ear, unspecified type H60.502 ; Overweight (BMI 25.0-29.9) E66.3 ; Dyslipidemia E78.5 and Polyneuropathy associated with underlying disease G63 [place] [id number] [place] [address] 72536- 7808 Sep, [place] [address] [address]- 9598 Aug, Abnormal mammogram R92.8 [place] [address] [address]666- 2082 Aug, Type 2 diabetes mellitus with diabetic polyneuropathy E11.42 [place] [address] 11267- 3020 Aug, [place] [id number] [place] [address] 92901- 6936 Aug, Type 2 diabetes mellitus with diabetic polyneuropathy E11.42 ; Syncope, unspecified syncope type R55 ; Other chronic pain G89.29 and Encounter for immunization Z23 [place] [id number] [place] [address]00- 2019 Aug, Type 2 diabetes mellitus with diabetic polyneuropathy E11.42 [place] [id number] [place] [address] 86426- 4699 Jul, Type 2 diabetes mellitus with diabetic polyneuropathy E11.42 and Serum creatinine raised R79.89 [place] [address] 25060- 2308 Jul, Type 2 diabetes mellitus with diabetic polyneuropathy E11.42 and Serum creatinine raised R79.89 [place] [address] 01852- 1350 May, [place] [address] 72758- 0697 May, [place] [address] 02114- 4486 May, Facial pain R51 ; Head injury, initial encounter S09.90XA ; Neck pain M54.2 and Fall, initial encounter W19.XXXA [place] [address] 69723- 6449 May, Type 2 diabetes mellitus with diabetic polyneuropathy E11.42 [place] [address] 43955- 3618 May, [place] [address] 20040- 2068 May, Type 2 diabetes mellitus with diabetic polyneuropathy E11.42 [place] [address] 80593- 6274 May, Dyslipidemia E78.5 ; 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 ; Type 2 diabetes mellitus with diabetic polyneuropathy E11.42 ; Generalized anxiety disorder F41.1 and Other seasonal allergic rhinitis J30.2 [place] [address] [address]60- 0006 Apr, Type 2 diabetes mellitus with diabetic polyneuropathy E11.42 [place] [address] [address] March, [place] [address] [address] 8[address] March, Abnormal mammogram R92.8 [place] [address] [address]- 9985 Feb, Abnormal mammogram R92.8 [place] [address] [id number] [address] Feb, Diabetes type 2, uncontrolled E11.65 [place] [address] [address]- 6964 Feb, Screening for breast cancer Z12.39 [place] [address] [address]- 0[address] Jan, Screening for breast cancer Z12.39 [place] [address] [address] 8[address] Jan, Type 2 diabetes mellitus with diabetic polyneuropathy E11.42 ; assisted 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 ; Other viral agents as the cause of diseases classified elsewhere B97.89 and Acute upper respiratory infection, unspecified J06.9 [place] [address] [id number] [address]- 3[address] Jan, [place] [address] [id number] [address]- 8[address] Dec, Diabetes type 2, uncontrolled E11.65 ; Dyslipidemia E78.5 ; Generalized anxiety disorder F41.1 ; Depression, unspecified depression type F32.9 ; 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 and Polyneuropathy associated with underlying disease G63 [place] [address] [place] [id number] [address] Dec, [place] [id number] [place] [address]13- 9839 14 Dec, 2016 [place] [address] 92758- 8620 Dec, [place] [id number] [place] [address] 03034- 4378 Dec, [place] [address] 27362- 7147 Oct, Well woman exam Z01.419 ; Screening for breast cancer Z12.39 ; 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 ; Type 2 diabetes mellitus without complications E11.9 and Encounter for immunization Z23 [address] [address]- [address] Sep, [place] [address] 76453- 1478 Sep, Diabetes type 2, uncontrolled E11.65 ; Dyslipidemia E78.5 and Depression, unspecified depression type F32.9 [place] [id number] [place] [address] 02815- 0447 Aug, Diabetes type 2, uncontrolled E11.65 ; Encounter for immunization Z23 ; Nasal congestion R09.81 and Ear pressure, bilateral H93.8X3 [place] [id number] [place] [address] 20572- 2181 Jul, Eustachian tube dysfunction, left H69.82 [place] [id number] [place] [address] 07809- 0617 Jun, [place] [id number] [place] [address] 59481- 7022 Jun, Hospital discharge follow-up Z09 ; Syncope, unspecified syncope type R55 and Acute suppurative otitis media of left ear without spontaneous rupture of tympanic membrane, recurrence not specified H66.002 [place] [id number] [place] [address] 45870- 2078 May, [place] [address] [address]- 9183 May, [place] [address] [address]- 5988 May, [place] [address] [address]- 5816 May, Diabetes type 2, uncontrolled E11.65 ; [...] disturbance G47.9 and Generalized anxiety disorder F41.1 [place] [address] [address]- 9664 March, [facility] [id number] [address] March, Syncope, unspecified syncope type R55 and Depression, unspecified depression type F32.9 [facility] [id number] [place] [address] [id number] March, Orthostatic hypotension I95.1 [facility] [address] [facility] [id number] [id number] March, [place] [address] [facility] [id number] [address]- 0316 March, [facility] [address] [facility] [id number][place] [id number] Feb, [place] [address] [facility] [address] [id number] [id number] Feb, Dental examination Z01.20 [facility] [address] [id number][place] [address] Jan, [facility] [address] [id number][place] [address] Jan, [facility] [address] [address] Dec, Diabetes type 2, uncontrolled E11.65 [facility] [place] [address]100[place] [address] Nov, [facility] [place] [address] [facility] [address] [id number] [id number] Nov, Encounter for dental examination Z01.20 [facility] [address] [id number] [address] Nov, Dental examination Z01.20 [facility] [place] [id number], [place] [address] Sep, Diabetes type 2, uncontrolled E11.65 [facility] [place] [address] [facility] [address] [id number][place] [address] Sep, Encounter for dental examination Z01.20 and Dental caries, unspecified K02.9 [facility] [address] [place] [address] [id number] Sep, Bipolar 2 disorder F31.81 [facility] [address] [id number] Aug, [facility] [address] [place] [address] [id number] Aug, [facility] up V67.9 [facility] [address] [place] [address] [id number] [address]- [address]248 Jul, Bipolar disorder, unspecified 296.80 [facility] [address]100[place] [address] Jul, Thyroid enlarged 240.9 and Bipolar disorder, unspecified 296.80 [facility] [address]100[place], [place] [address] Jun, Diabetes mellitus type 2, uncontrolled 250.02 ; Bipolar disorder, unspecified 296.80 and Rash 782.1 [facility] [place] [address]100[place] [address] Jun, [facility] [place] [id number] [address] May, Urinary tract infection 599.0 [facility] [place] [address] [place] [id number], [place] [address] May, Urinary tract infection 599.0 [facility] [place] [id number], [place] [address] May, [facility] [place] [id number], [place] [address] May, Diabetes mellitus type 2, uncontrolled 250.02 and Pica in adults 307.52 [facility] [place] [address] [id number] [place] [address] [id number] Apr, Follow up V67.9 and Diabetes mellitus type 2, uncontrolled 250.02 [facility] [place] [id number] [place] [address] [id number] Apr, [facility] [address] [id number] [place] [address] [id number]- 2874 Apr, [facility] [place] [id number] [place] [address] [id number] Apr, Hyperlipidemia 272.4 [facility] [place] [id number] [place] [address] [id number] March, Diabetes type 2, uncontrolled 250.02 [facility] [place] [id number], [place] [address] March, Diabetes mellitus type 2, uncontrolled 250.02 [facility] [place] [id number], [place] [address] March, Diabetes type 2, uncontrolled 250.02 [facility] [place] [id number], [place] [id number] March, [facility] [place] [id number], [place] [address] March, [facility] [place] [id number], [place] [id number] Feb, [facility] [id number] [place] [address] [id number]- 2959 Feb, [facility] [address]100[place] [address]- 7467 Feb, [facility] [place] [address] [place] [address] [id number], [place] [address] Jan, [facility] [place] [facility] [address] [facility] [id number] [place] [address]- 9976 Jan, [facility] [place] [facility] [address] [place] [address] [id number] [address]- 6296 Jan, [facility] [place] [address] [facility] [id number], [place] [id number] Jan, [facility] [place] [facility] [address] [address]- 1344 Jan, [facility] [place] [facility] [address]005[address] [address]- 7596 Jan, [facility] [place] [id number], [place] 322[address] Jan, [facility] [place] [facility] [address] [address]- 7216 Jan, [facility] [place] [facility] [address]005[address]100[place] [address]- 9515 Dec, [facility] [place] [address] [place] [id number], [place] [id number] Dec, [facility] [place] [facility] [address] [address]- 9816 Dec, [facility] [place] [id number], [place] [id number] 16 Dec, 2014 [facility] [place] [facility] [address]00565100[place] [address]- 0944 Dec, 2014 [facility] [place] [address] [facility] [id number], [place] [id number] Dec, [facility] [place] [facility] [address]100[place] [address]- 3886 Dec, [facility] [place] [facility] [address] [place] [address] [id number] [address]- 5890 Dec, [facility] [place] [address] [place] [address] [id number], [place] [id number] Dec, [facility] [place] [address] [facility] [id number], [place] 401521238 Dec, [facility] [place] [facility] [address] [facility] [id number] [address]- 2856 Dec, [facility] [place] [facility] [address] [facility] [id number] [place] [address]- 7438 Nov, [facility] [place] [facility] [address] [place] [id number] [address]- 6002 Oct, [facility] [place] [facility] [address] [facility] [id number] [place] [address]- 6979 Oct, [facility] [place] [address] [facility] [id number], [place] 047481832 Sep, [facility] [place] [facility] [address]100[place] [address]- 0225 Sep, [facility] [place] [address] [place] [id number], [place] 206111774 Sep, [facility] [place] [facility] [address] [address]- 4376 Sep, [facility] [place] [address] [place] [address] [id number], [place] 624961512 Aug, [facility] [place] [facility] [address]005[address] [address]- 7987 Aug, [facility] [place] [address] [facility] [id number], [place] [id number] Aug, [facility] [place] [facility] [address] [facility] [id number] [place] [address]- 2176 Aug, [facility] [place] [facility] [address] [facility] [id number] [place] [address]- 7825 Jul, [facility] [place] [facility] [address] [facility] [id number] [place] [address]- 6756 Jul, [facility] [place] [address] [facility] [id number], [place] [id number] Jul, [facility] [place] [facility] [address] [id number] [place] [address]- 1886 Jul, [facility] [place] [address] [id number] [place] [id number] Jun, [facility] [place] [address] [id number] [place] [id number] Jun, [facility] [place] [facility] [address] [facility] [id number] [place] [address]- 4968 Jun, [facility] [place] [facility] [address] [facility] [id number] [place] [address]- 3421 Jun, [facility] [place] [address] [id number] [place] [id number] Jun, [facility] [place] [facility] [address] [facility] [id number] [place] [address]- 4682 Jun, [facility] [place] [address] [facility] [id number] [place] [id number] May, [facility] [place] [facility] [address] [facility] [id number] [place] [address]- 1122 May, [facility] [place] [facility] [address] [facility] [id number] [place] [address]- 8865 Apr, [facility] [place] [facility] [address] [facility] [id number] [place] [address]- 3411 Apr, [facility] [place] [address] [facility] [id number] [place] 924698429 Apr, [facility] [place] [facility] [address] [facility] [id number] [address]- 2252 Apr, [facility] [place] [facility] [address] [facility] [id number] [place] [address]- 1642 Apr, [facility] [place] [address] [facility] [id number] [place] [id number] March, [facility] [place] [facility] [address] [facility] [id number] [place] [address]- 9634 March, [facility] [place] [facility] [address] [facility] [id number] [place] [address]- 8673 March, [facility] [place] [address] [id number] [place] [id number] March, [facility] [place] [facility] [address] [facility] [id number] [place] [address]- 9826 March, [facility] [address] [id number] [place] [id number] March, [facility] [place] [facility] [address] [facility] [id number] [place] [address]- 7386 March, [facility] [place] [address] [id number] [place] [id number] Feb, [facility] [place] [facility] [address] [facility] [id number] [place] [address]- 6206 Feb, [facility] [place] [facility] [address] [place] [id number] [address]- 1256 Jan, [facility] [place] [address] [facility] [id number] [place] [id number] Jan, [facility] [place] [facility] [address] [facility] [id number] [address]- 2592 Jan, [facility] [place] [facility] [address] [place] [id number] [place] [address]- 9749 Jan, [facility] [place] [address] [facility] [id number], [place] [id number] Jan, [facility] [place] [address] [facility] [id number], [place] [id number] Dec, [facility] [place] [facility] [address] [facility] [id number] [place] [address]- 7966 Dec, [facility] [place] [facility] [address] [facility] [id number] [place] [address]- 0336 Dec, [facility] [place] [address] [facility] [id number] [place] [id number] Dec, [facility] [place] [facility] [address] [facility] [id number] [place] [address]- 4796 Dec, [facility] [place] [address] [facility] [id number], [place] 714450319 Dec, [facility] [place] [facility] [address]00565100[place] [address]- 7756 Dec, [facility] [place] [facility] [address]00565100[place] [address]- 7276 Dec, [facility] [place] [address] [place] [id number], [place] [id number] Dec, [facility] [address] [facility] [id number], [place] 918663868 Nov, [facility] [place] [facility] [address]00565100[place] [address]- 1740 Nov, [facility] [place] [facility] [address]00565100[place] [address]- 5116 Nov, [facility] [place] [id number], [place] 933759841 Nov, [facility] [id number], [place] 276133333 Oct, [facility] [place] [facility] [address]00565100[place] [address]- 3373 Oct, [facility] [id number][place] [id number] Oct, [facility] [place] [facility] [id number] [address] Oct, [facility] [place] [facility] [id number] [address] Oct, [facility] [place] [facility] [id number] [address] Oct, [facility] [id number], [place] [id number] Oct, [facility] [place] [facility] [id number] [address] Oct, [facility] [place] [facility] [id number] [address] Sep, [facility] [place] [facility] [address] [facility] [id number] [place] [address] Sep, [facility] [address] [facility] [id number] [place] [id number] Sep, [facility] [place] [facility] [address] [facility] [id number] [place] [address] Sep, [facility] [place] [facility] [address] [facility] [id number] [place] [address] Sep, [facility] [address] [id number] [place] [id number] Sep, [facility] [address] [facility] [id number] [place] [id number] Aug, [facility] [place] [facility] [address] [facility] [id number] [place] [address] Aug, [facility] [place] [facility] [address] [facility] [id number] [place] [address] Aug, [facility] [address] [facility] [id number][place] [id number] Aug, [facility] [address] [facility] [id number][place] [id number] Aug, [facility] [place] [facility] [address] [facility] [id number] [place] [address] Aug, [facility] [place] [facility] [address] [facility] [id number] [place] [address] Aug, [facility] [place] [facility] [address] [facility] [id number] [place] [address] Aug, [facility] [address] [facility] [id number][place] [id number] Jul, [facility] [place] [facility] [address] [facility] [id number] [place] [address] Jul, [facility] [place] [facility] [address] [facility] [id number] [place] [address] 18 Jul, 2013 [facility] [address] [facility] [id number][place] [id number] Jul, [facility] [address] [id number] [place] [id number] Jul, [facility] [address] [facility] [id number] [place] [address] May, [facility] [address] [facility] [id number] [place] [address] Apr, [facility] [address] [id number] [place] [id number] Apr, [facility] [address] [id number] [place] [id number] Apr, [facility] [address] [facility] [id number] [place] [address] March, [facility] [address] [id number] [place] [id number] March, [facility] [address] [id number] [place] [id number] March, [facility] [address] [id number] [place] [id number] March, [facility] [address] [id number] [place] [id number] March, [facility] [address] [id number] [place] [id number] March, [facility] [address] [facility] [id number] [address] March, [facility] [place] [facility] [address] [facility] [id number] [address] March, [facility] [place] [facility] [address] [facility] [id number] [address] Feb, [facility] [address] [id number] [place] [id number] Feb, [facility] [address] [id number] [place] [id number] Feb, [facility] [address] [id number] [place] [id number] Feb, [facility] [place] [facility] [address] [facility] [id number] [place] [address] Feb, [facility] [address] [id number] [place] [id number] Feb, [facility] [address] [id number] [place] [id number] Jan, [facility] [address] [id number] [place] [id number] Jan, [facility] [address] [id number] [place] [id number] Dec, [facility] [address] [id number] [id number] Dec, [facility] [address]00565100[place] [address] Dec, [facility] [address] [id number] [place] [id number] Dec, [facility] [address] [id number][place] [id number] Dec, [facility] [address] [id number] [place] [id number] Dec, [facility] [address] [id number] [place] [id number] Dec, [facility] [address] [id number] [address] Nov, [facility] [address] [id number][place] [id number] Nov, [facility] [address] [id number][place] [id number] Nov, [facility] [address] [id number][place] [id number] Nov, [facility] [address] [id number][place] [id number] Nov, [facility] [address]65100[place] [address] Oct, [facility] [address] [id number], [place] [id number] Oct, [facility] [address] [id number] [place] [id number] Oct, [facility] [address] [id number] [id number] Oct, [facility] [place] [facility] [address] [id number] [place] [address] Oct, [facility] [place] [facility] [address] [facility] [id number] [place] [address] Oct, [facility] [place] [facility] [address] [id number] [place] [address] Oct, [facility] [address] [id number] [id number] Sep, [facility] [place] [facility] [address] [facility] [id number] [place] [address] Sep, [facility] [place] [facility] [address] [facility] [id number] [place] [address] Sep, [facility] [address] [id number] [place] [id number] Sep, [facility] [address] [id number] [place] [id number] Sep, [facility] [address] [id number] [place] [id number] Sep, [facility] [place] [facility] [address] [facility] [id number] [place] [address] Sep, [facility] [place] [facility] [address] [facility] [id number] [place] 668[place] [address] Sep, [facility] [place] [facility] [address] [facility] [id number] [place] [address] Sep, [facility] [address] [id number], [place] [id number] Aug, [facility] [place] [facility] [address] [facility] [id number] [address] Aug, [facility] [address] [id number] [place] [id number] Aug, [facility] [address] [id number] [place] [address] Aug, [facility] [place] [facility] [address] [facility] [id number] [id number] [address] Aug, [facility] [address] [id number] [place] [id number] Aug, [facility] [address] [id number] [place] [id number] Aug, [facility] [address] [id number] [place] [address] Aug, [facility] [address] [id number] [place] [id number] Aug, [facility] [address] [id number] [place] 783126078 Jul, [facility] [address] [id number] [place] [id number] Jun, [facility] [address] [id number] [place] [id number] May, [facility] [address] [id number] [place] [id number] May, [facility] [address] [id number] [place] [id number] May, [facility] [address] [id number] [place] 749198884 May, [facility] [address] [id number] [place] [id number] May, [facility] [address] [id number] [place] [id number] May, [facility] [address] [id number] [place] [id number] May, [facility] [address] [id number] [place] [id number] Apr, [facility] [address] [id number] [place] [id number] Apr, [facility] [address] [id number] [id number] Apr, [facility] [address] [id number] [place] [id number] Apr, [facility] [address] [id number] [place] [id number] Apr, [facility] [address] [id number] [place] 9[place]7217 Apr, [facility] [address] [id number] [place] [id number] March, [facility] [address] [id number] [place] [id number] March, [facility] [address] [id number] [place] 987[place]3832 Feb, [facility] [address] [id number] [place] [id number] Feb, [facility] [address] [id number] [place] 977655208 Feb, [facility] [address] [id number] [place] [id number] Jan, [facility] [address] [id number] [place] 8981609[place] Jan, [facility] [address] [id number] [place] [id number] Jan, [facility] [address] [id number] [place] [id number] Jan, [facility] [address] [id number] [place] [id number] Dec, [facility] [address] [facility] [id number] [place] [address] Dec, [facility] [address] [id number] [place] [id number] Dec, [facility] [address] [id number] [place] [id number] Nov, [facility] [address] [id number] [place] [id number] Nov, [facility] [address] [id number], [place] [id number] Nov, [facility] [place] [facility] [address] [id number] [place] [address]- [address] Oct, [facility] [place] [facility] [address] [id number] [place]- [address] Oct, [facility] [place] [facility] [address] [id number] [place] [address]- [address] Oct, [facility] [place] [facility] [address] [id number] [place] [address]- 9[address] Aug, [facility] [place] [facility] [address] [id number] [place] [address]- [address] Aug, [facility] [place] [facility] [address] [id number] [place] [address]- [address]149 Aug, [facility] [place] [facility] [address] [id number] [place] [address] March, [facility] [place] [facility] [address] [id number] [place] [address]- 7944 Oct, [facility] [place] [facility] [address] [id number] [place] [address]- 2583 Oct, [facility] [place] [facility] [address] [id number] [address]- [address] Sep, [facility] [place] [facility] [address] [id number] [place] [address]- [address]164 Sep, [facility] [place] [facility] [address] [id number] [place] [address]- 6282 Sep, [facility] [place] [facility] [address] [id number] [place] [address]- 6767 Aug, [facility] [place] [facility] [address] [id number] [place] [address]- [address] Aug, [facility] [place] [facility] [address] [id number] [place] [address]- 3575 Jun, [facility] [place] [facility] [id number] [address] May, [facility] [id number] [address] Jan, [facility] [id number] [address]- [address] Nov, [facility] [id number] Oct, [facility] [id number] [address]- [address] Sep, [facility] [id number] [place] [address] Sep, [facility] [id number] [address]- 78[address] Sep, [facility] [id number] [place] [address]- [address] Sep, [facility] [id number] [address]- 9[address] Sep, [facility] [id number] [address]- [address] Aug, [facility] [id number] [address]- 38[address] Aug, [facility] [id number] [address]- 119[address] Jul, [facility] [address] [id number] [address]- 9457 Jun, IMMUNIZATIONS No Known Immunizations SOCIAL HISTORY Never Assessed REASON FOR VISIT restorative PLAN OF CARE Activity Details Follow Up prn Reason:6 Month Recall VITAL SIGNS Height 67.7 in 2018-02-17 Blood pressure systolic 120 mmHg 2018-02-17 Blood pressure diastolic 78 mmHg 2018-02-17 MEDICATIONS Medication Instructions Dosage Frequency Start Date End Date Duration Status Cymbalta 60 mg Orally Once a day 1 capsule 24h Jul, 90 days Active iron Nov, Active Aspirin 81 MG Orally every 2 days 1 tablet 90 days Active Atorvastatin Calcium 40MG TAKE ONE TABLET BY MOUTH ONCE DAILY Active Vitamin B-12 100 MCG Orally Once a day 1 tablet 24h Active True Metrix Meter w/Device Test blood sugar 12h Aug, 12 months Active Levemir 100UNIT Subcutaneous 2 times a day inject 65U in am and 75U at HS 12h 28 Not-Taking Pen [place] 31G/8MM subcutaneously 2 times a day as directed 12h 25 Active Multivitamin Adult - Active Ventolin HFA 108MCG/A INHALE TWO PUFFS BY MOUTH EVERY 4 TO 6 HOURS NEEDED FOR COUGH AND FOR SHORTNESS OF BREATH AND FOR WHEEZING Active Humalog 100 UNIT/ML Subcutaneous 3 times a day 23 units just before meals 8h Aug, 12 months Active Pen [place] 31G X 8 MM subcutaneously 2 times a day as directed 12h Dec 90 days Active Insulin Syringe-Needle U-100 28G X 1/2 subcutaneously Once a day as directed 24h Dec, Active Cetirizine HCl 10MG Orally Once a day TAKE ONE TABLET BY MOUTH ONCE DAILY 24h May, 90 days Active Lisinopril 5 mg Orally Once a day 1 tablet 24h May, 90 days Not-Taking Levemir 100 UNIT/ML Subcutaneous 2 times a day inject 50U in am and 50U at HS 12h Dec, 12 months Active Insulin Syringe-Needle U-100 1ML/31G subcutaneously Once a day as directed 24h Active Lancets 1 subcutaneously 2 times a day test blood sugar 12h Aug, 12 months Active Fluticasone Propionate 50MCG/ACT Nasally Once a day 1 spray in each nostril 24h Active ProAir HFA 108 (90 Base) MCG/ACT Inhalation every 4-6 hours as needed 2 puffs Feb, 30 days Not-Taking Augmentin Active True Metrix Blood Glucose Test 1 subcutaneously 2 times a day test blood sugar 12h Aug, 12 months Active Gabapentin 400MG Orally at bedtime 1 tablet Active Januvia 100MG Orally Once a day TAKE ONE TABLET BY MOUTH ONCE DAILY 24h 90 days Active Victoza 18MG/3ML Subcutaneous Once a day 1.8mg 24h Active RESULTS No Results PROCEDURES Procedure Date Ordered Result Body Site RESIN COMPOS - 1 SURFACE POSTERIOR February 17, 2018 Billing Notes on claim February 17, 2018 INSTRUCTIONS MEDICATIONS ADMINISTERED No Known [...] 08/2016 Hospitalization History chest pain ED visit [facility], pt scheduled for heart cath on May Hospitalization History [place] 2012 Hospitalization History Chest pain-[facility] 12/22/16
--- OUTSIDE RECORDS SUMMARY | 2018-11-01 18:52 | XMS REPORT ---
Author Author KETAN ADAMS Organization [facility] Address [address] [place] [address] Care Team Providers Care Director Talent Management Name Role Phone BRYAN, KETAN Unavailable PROBLEMS Type Condition ICD9-CM Code KNC23-OO Code Onset Dates Condition Status SNOMED Code Problem Other seasonal allergic rhinitis J30.2 Active 559961181 Problem Polyneuropathy associated with underlying disease G63 Active 662450456 Problem Other chronic pain G89.29 Active 91213760 Problem Vitamin D deficiency E55.9 Active 56411465 Problem Recurrent major depressive disorder, in partial remission F33.41 Active 23441623 Problem residential 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 Active 615399361 Problem Syncope, unspecified syncope type R55 Active 489249548 Problem Stage 2 chronic kidney disease N18.2 Active 571777899 Problem Type 2 diabetes mellitus with diabetic polyneuropathy E11.42 Active 78797159 Problem Episodic mood disorder F39 Active 36632598 Problem Dyslipidemia E78.5 Active 351448797 Problem Serum creatinine raised R79.89 Active 242042896 Problem Lumbago with sciatica, left side M54.42 Active 834354846 Problem Generalized anxiety disorder F41.1 Active 84999571 Problem Lumbago with sciatica, right side M54.41 Active 659009937 ALLERGIES Substance Reaction Event Type Date Status MetFORMIN HCl ER nausea and vomiting Drug Allergy Feb, Active Codeine Phosphate dizziness Drug Allergy Feb, Active metal/crown/watches rash Non Drug Allergy Feb, Active ENCOUNTERS Encounter Location Date Diagnosis [facility] [address] [id number] [address] Jun, [facility] [address] [id number] [address] May, [facility] [address] [id number] [address] March, [place] [address], [place] [address] March, Type 2 diabetes mellitus with diabetic [...] H60.502 and Non-adherence to medical treatment Z91.19 [address] [id number] [facility] [address] [id number] [id number] Feb, Dental examination Z01.20 [place] [id number] [place] [address] 91835- 6453 Feb, Labile hypertension R09.89 ; Syncope, unspecified syncope type R55 ; Chest pain, unspecified type R07.9 and Dyslipidemia E78.5 [place] [id number] [place] [address] 43389- 1841 Feb, [place] [id number] [place] [address] 99626- 6890 Jan, [facility] [place] [address] [facility] [address] [id number] [id number] Jan, Dental examination Z01.20 [place] [id number] [place] [address] 14687- 6174 Jan, Acute non-recurrent maxillary sinusitis J01.[address] [facility] [address] [facility] [address] [id number] [id number] Jan, Dental examination Z01.20 and Dental caries K02.9 [facility] [address] [address] [id number] [id number] Jan, [facility] [address] [id number] [address] Dec, Dental examination Z01.20 [facility] [id number] [place] [address] 80723 -0092 Dec, Seasonal allergic rhinitis, unspecified trigger J30.2 [place] [id number] [place] [address] 02339- 0401 Nov, [place] [address] [address]- 0202 Nov, Type 2 diabetes mellitus with diabetic polyneuropathy E11.42 ; Dyslipidemia E78.5 ; Lumbago with sciatica, right side M54.41 ; Lumbago with sciatica, left side M54.42 ; residential 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 ; Polyneuropathy associated with underlying disease G63 ; Stage 2 chronic kidney disease N18.2 and Syncope, unspecified syncope type R55 [place] [address] [address]- 6144 14 Oct, 2017 Type 2 diabetes mellitus with diabetic polyneuropathy E11.42 ; Acute otitis externa of left ear, unspecified type H60.502 ; Overweight (BMI 25.0-29.9) E66.3 ; Dyslipidemia E78.5 and Polyneuropathy associated with underlying disease G63 [place] [id number] [place] [address] 79030- 6343 Sep, [address] [address] [address]014- 1108 Aug, Abnormal mammogram R92.8 [place] [address] 33950- 5801 Aug, Type 2 diabetes mellitus with diabetic polyneuropathy E11.42 [place] [address] 59819- 4035 Aug, [place] [address] 22096- 5218 Aug, Type 2 diabetes mellitus with diabetic polyneuropathy E11.42 ; Syncope, unspecified syncope type R55 ; Other chronic pain G89.29 and Encounter for immunization Z23 [place] [id number] [place] [address] 03163- 8968 Aug, Type 2 diabetes mellitus with diabetic polyneuropathy E11.42 [place] [id number] [place] [address] 92578- 1106 Jul, Type 2 diabetes mellitus with diabetic polyneuropathy E11.42 and Serum creatinine raised R79.89 [place] [address] 72022- 7948 Jul, Type 2 diabetes mellitus with diabetic polyneuropathy E11.42 and Serum creatinine raised R79.89 [address] [address] 52155- 4797 May, [address] [address] 86375- 0535 May, [place] [address] 23012- 4766 May, Head injury, initial encounter S09.90XA ; Facial pain R51 ; Neck pain M54.2 and Fall, initial encounter W19.XXXA [place] [address] 85967- 2792 May, Type 2 diabetes mellitus with diabetic polyneuropathy E11.42 [place] [id number] [place] [address] 00381- 2941 May, [place] [address] 71140- 8720 May, Type 2 diabetes mellitus with diabetic polyneuropathy E11.42 [place] [id number] [place] [address] 40192- 3590 May, Dyslipidemia E78.5 ; residential 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 ; Type 2 diabetes mellitus with diabetic polyneuropathy E11.42 ; Generalized anxiety disorder F41.1 and Other seasonal allergic rhinitis J30.2 [place] [address] 20006- 0437 Apr, Type 2 diabetes mellitus with diabetic polyneuropathy E11.42 [place] [address], [place] [address] March, [place] [address], [place] [address] 7[address] March, Abnormal mammogram R92.8 [place] [address], [place] [address] 9639 Feb, Abnormal mammogram R92.8 [place] [address], [place] [address]- 9181 Feb, Diabetes type 2, uncontrolled E11.65 [place] [address] [place] [address] 88450- 3222 Feb, Screening for breast cancer Z12.39 [place] [address] [place] [address] 64489- 3090 Jan, Screening for breast cancer Z12.39 [place] [address], [place] [address]- 8574 Jan, Type 2 diabetes mellitus with diabetic polyneuropathy E11.42 ; residential 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 ; Other viral agents as the cause of diseases classified elsewhere B97.89 and Acute upper respiratory infection, unspecified J06.9 [place] [id number], [place] [address]- 7[address] Jan, [place] [address], [place] [address]- 5591 Dec, Diabetes type 2, uncontrolled E11.65 ; Dyslipidemia E78.5 ; Generalized anxiety disorder F41.1 ; Depression, unspecified depression type F32.9 ; residential 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 and Polyneuropathy associated with underlying disease G63 [place] [id number], [place] [address]- 3051 Dec, [place] [id number] [place] [address] 30728- 1996 14 Dec, 2016 [place] [id number] [place] [address] 40864- 0257 03 Dec, 2016 [place] [id number] [place] [address] 21030- 2150 02 Dec, 2016 [place] [id number] [place] [address] 76267- 8318 Oct, Well woman exam Z01.419 ; Screening for breast cancer Z12.39 ; 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 ; Type 2 diabetes mellitus without complications E11.9 and Encounter for immunization Z23 [address] [address]44- 4992 Sep, [place] [address] [place] [address] 57777- 2108 Sep, Diabetes type 2, uncontrolled E11.65 ; Dyslipidemia E78.5 and Depression, unspecified depression type F32.9 [place] [address] [place] [address] 59906- 9859 Aug, Diabetes type 2, uncontrolled E11.65 ; Encounter for immunization Z23 ; Nasal congestion R09.81 and Ear pressure, bilateral H93.8X3 [place] [address] [place] [address] 85291- 2516 Jul, Eustachian tube dysfunction, left H69.82 [place] [id number] [place] [address] 45811- 3450 Jun, [place] [id number] [place] [address] 83521- 3179 Jun, Hospital discharge follow-up Z09 ; Syncope, unspecified syncope type R55 and Acute suppurative otitis media of left ear without spontaneous rupture of tympanic membrane, recurrence not specified H66.002 [place] [address] [place] [address] 05152- 2582 May, [place] [address] [address]- 8258 May, [place] [address] [place] [address] 50538- 3857 May, [place] [address], [place] [address]- 7054 May, Diabetes type 2, uncontrolled E11.65 ; [...] disturbance G47.9 and Generalized anxiety disorder F41.1 [place] [address], [place] [address]- 0122 March, [place] [id number] [place] [address] [id number] March, Syncope, unspecified syncope type R55 and Depression, unspecified depression type F32.9 [place] [id number] [place] [address] [id number] March, Orthostatic hypotension I95.1 [facility] [id number] [place] [address] [id number] March, [place] [address] [facility] [id number], [place] [address]- 4326 March, [facility] [id number][place] [id number] Feb, [facility] [address] [facility] [address] [id number] [id number] Feb, Dental examination Z01.20 [facility] [id number] [place] [address] [id number] Jan, [facility] [id number] [place] [address] [id number] Jan, [facility] [id number] [place] [address] [id number] Dec, Diabetes type 2, uncontrolled E11.65 [facility] [place] [address] [id number] [id number] Nov, [facility] [address] [facility] [address] [id number][place] [id number] Nov, Encounter for dental examination Z01.20 [facility] [place] [address] [facility] [address] [id number][place] [id number] Nov, Dental examination Z01.20 [facility] [address] [id number] Sep, Diabetes type 2, uncontrolled E11.65 [facility] [place] [address] [facility] [address] [id number][place] [address] Sep, Encounter for dental examination Z01.20 and Dental caries, unspecified K02.9 [facility] [address] [address] Sep, Bipolar 2 disorder F31.81 [facility] [address] [id number] Aug, [facility] [address] [place] [address] [id number] Aug, Follow up V67.9 [facility] [address] [address] 5700 Jul, Bipolar disorder, unspecified 296.80 [facility] [address] [id number] Jul, Thyroid enlarged 240.9 and Bipolar disorder, unspecified 296.80 [facility] [place] [id number] [address] Jun, Diabetes mellitus type 2, uncontrolled 250.02 ; Bipolar disorder, unspecified 296.80 and Rash 782.1 [facility] [address] [id number] Jun, [facility] [id number] [id number] May, Urinary tract infection 599.0 [facility] [id number] [id number] May, Urinary tract infection 599.0 [facility] [id number], [place] [address] May, [facility] [id number] [place] [address] [phone] May, Diabetes mellitus type 2, uncontrolled 250.02 and Pica in adults 307.52 [facility] [id number] [place] [address] [id number] Apr, Follow up V67.9 and Diabetes mellitus type 2, uncontrolled 250.02 [facility] [place] [id number] [place] [address] [id number] Apr, [facility] [id number] [place] [address] [id number]- 2207 Apr, [facility] [place] [id number] [place] [address] [id number] Apr, Hyperlipidemia 272.4 [facility] [place] [id number] [place] [address] [id number] March, Diabetes type 2, uncontrolled 250.02 [facility] [place] [id number] [place] [address] [id number] March, Diabetes mellitus type 2, uncontrolled 250.02 [facility] [place] [id number] [place] [address] [id number] March, Diabetes type 2, uncontrolled 250.02 [facility] [place] [id number], [place] [id number] March, [facility] [place] [id number], [place] [id number] March, [facility] [place] [id number], [place] [id number] Feb, [facility] [id number] [place] [address] [id number]- 7929 Feb, [facility] [id number] [place] [address] [id number]- 4809 Feb, [facility] [id number] [place] [address] [id number] Jan, [facility] [place] [facility] [address] [facility] [id number], [place] [address]- 6146 Jan, [facility] [place] [facility] [address] [facility] [id number], [place] [address]- 8846 Jan, [facility] [address] [facility] [id number][place] [id number] Jan, [facility] [place] [facility] [address] [facility] [id number], [place] [address]- 1946 Jan, [facility] [place] [facility] [address] [facility] [id number][place] [address]- 2176 Jan, [facility] [address] [facility] [id number], [place] [id number] Jan, [facility] [place] [facility] [address], [place] [address]- 0306 Jan, [facility] [place] [facility] [id number], [place] [address]- 5796 Dec, [facility] [address] [facility] [id number], [place] [id number] Dec, [facility] [place] [facility] [id number], [place] [address]- 9086 Dec, [facility] [address] [id number] [id number] Dec, [facility] [place] [facility] [id number], [place] [address]- 2546 Dec, [facility] [address] [facility] [id number], [place] [id number] Dec, [facility] [place] [facility] [address] [facility] [id number][place] [address]- 3166 Dec, [facility] [place] [facility] [address] [facility] [id number], [place] [address]- 2546 Dec, [facility] [address] [id number] [id number] Dec, [facility] [address] [id number], [place] [id number] Dec, [facility] [place] [facility] [address] [facility] [id number] [place] [address]- 6556 Dec, [facility] [place] [facility] [address] [facility] [id number] [place] [address]- 4739 Nov, [facility] [place] [facility] [address] [id number] [place] [address]- 8708 Oct, [facility] [place] [facility] [address] [facility] [id number] [place] [address]- 7583 Oct, [facility] [address] [facility] [id number], [place] [id number] Sep, [facility] [id number], [place] [address]- 0290 Sep, [facility] [address] [facility] [id number], [place] [id number] Sep, [facility] [place] [facility] [address] [facility] [id number], [place] [address]- 0433 Sep, [facility] [address] [facility] [id number], [place] [id number] Aug, [facility] [place] [facility] [address], [place] [address]- 3556 Aug, [facility] [address] [facility] [id number], [place] [id number] Aug, [facility] [place] [facility] [address] [facility] [id number], [place] [address]- 1076 Aug, [facility] [place] [facility] [address] [facility] [id number], [place] [address]- 3342 Jul, [facility] [place] [facility] [address] [facility] [id number], [place] [address]- 5203 Jul, [facility] [address] [facility] [id number], [place] [id number] Jul, [facility] [place] [facility] [address] [place] [address]- 3756 Jul, [facility] [address] [id number] [place] [id number] Jun, [facility] [address] [id number] [place] [id number] Jun, [facility] [place] [facility] [address] [facility] [id number] [place] [address]- 3208 Jun, [facility] [place] [facility] [address] [facility] [id number] [place] [address]- 4856 Jun, [facility] [address] [id number] [place] [id number] Jun, [facility] [place] [facility] [address] [facility] [id number] [place] [address]- 8353 Jun, [facility] [address] [facility] [id number] [place] [id number] May, [facility] [place] [facility] [address] [facility] [id number][place] [address]- 5677 May, [facility] [place] [facility] [address] [facility] [id number] [place] [address]- 3104 Apr, [facility] [place] [facility] [address] [facility] [id number], [place] [address]- 8290 Apr, [facility] [address] [facility] [id number] [place] [id number] Apr, [facility] [place] [facility] [address] [facility] [id number], [place] [address]- 5793 Apr, [facility] [place] [facility] [address] [facility] [id number] [place] [address]- 7350 Apr, [facility] [address] [facility] [id number] [place] [id number] March, [facility] [place] [facility] [address] [facility] [id number] [place] 7809 March, [facility] [place] [facility] [address] [facility] [id number] [place] 5628 March, [facility] [address] [facility] [id number] [place] [id number] March, [facility] [address] [facility] [id number], [place] [address]- 5856 March, [facility] [address] [facility] [id number] [place] [id number] March, [facility] [address] [facility] [id number][place] [address]- 6226 March, [facility] [address] [facility] [id number], [place] [id number] Feb, [facility] [place] [facility] [address] [facility] [id number], [place] [address]- 6363 Feb, [facility] [place] [facility] [address] [id number], [place] [address]- 9396 Jan, [facility] [id number], [place] [id number] Jan, [facility] [place] [facility] [address]65[address], [place] [address]- 6355 Jan, [facility] [place] [facility] [address], [place] [address]- 9203 Jan, [facility] [address] [id number], [place] [id number] Jan, [facility] [place] [address] [facility] [id number], [place] [id number] Dec, [facility] [place] [facility] [address] [facility] [id number], [place] [address]- 6346 Dec, [facility] [place] [facility] [address] [facility] [id number][place] [address]- 1038 Dec, [facility] [address] [facility] [id number], [place] [id number] Dec, [facility] [place] [facility] [address] [facility] [id number], [place] [address]- 6306 Dec, [facility] [address] [facility] [id number], [place] [id number] Dec, [facility] [place] [facility] [address] [facility] [id number] [place] [address]- 4766 Dec, [facility] [place] [facility] [address] [facility] [id number], [place] [address]- 2546 Dec, [facility] [address] [facility] [id number] [place] [id number] Dec, [facility] [address] [facility] [id number] [place] [address] [id number] Nov, [facility] [place] [facility] [address] [facility] [id number] [place] [address]- 9081 Nov, [facility] [place] [facility] [address] [id number], [place] [address]- 2546 Nov, [facility] [id number][place] [id number] Nov, [facility] [id number] [place] [address] [id number] Oct, [facility] [place] [facility] [address] [id number], [place] [address] Oct, [facility] [address] [id number][place] [id number] Oct, [facility] [place] [facility] [id number], [place] [address] Oct, [facility] [place] [facility] [id number], [place] [address] Oct, [facility] [place] [facility] [address] [facility] [id number], [place] [address] Oct, [facility] [address] [facility] [id number][place] [id number] Oct, [facility] [place] [facility] [address] [facility] [id number], [place] [address] Oct, [facility] [place] [facility] [address] [id number], [place] [address] Sep, [facility] [place] [facility] [address] [facility] [id number], [place] [address] Sep, [facility] [address] [facility] [id number][place] [id number] Sep, [facility] [place] [facility] [address] [facility] [id number], [place] [address] Sep, [facility] [place] [facility] [address] [facility] [id number], [place] [address] Sep, [facility] [address] [facility] [id number][place] [id number] Sep, [facility] [address] [facility] [id number][place] [id number] Aug, [facility] [place] [facility] [address] [facility] [id number], [place] [address] Aug, [facility] [place] [facility] [id number], [place] [address] Aug, [facility] [address] [facility] [id number][place] [id number] Aug, [facility] [address] [facility] [id number][place] [id number] Aug, [facility] [place] [facility] [address] [facility] [id number], [place] [address] Aug, [facility] [place] [facility] [address] [facility] [id number], [place] [address] Aug, [facility] [place] [facility] [address] [facility] [id number], [place] [address] Aug, [facility] [address] [facility] [id number][place] [id number] Jul, [facility] [place] [facility] [address] [facility] [id number], [place] [address] Jul, [facility] [place] [facility] [address] [facility] [id number][place] [address] 18 Jul, 2013 [facility] [address] [facility] [id number][place] [id number] Jul, [facility] [address] [id number] [place] [id number] Jul, [facility] [place] [facility] [address] [facility] [facility] [id number] [place] [address] May, [facility] [place] [facility] [address] [facility] [id number] [place] [address] Apr, [facility] [place] [address] [id number] [place] [id number] Apr, [facility] [place] [address] [id number] [place] [id number] Apr, [facility] [place] [facility] [address] [facility] [id number] [place] [address] March, [facility] [place] [address] [id number] [place] [id number] March, [facility] [place] [address] [id number] [place] [id number] March, [facility] [place] [address] [id number] [place] [id number] March, [facility] [place] [address] [id number] [place] [id number] March, [facility] [place] [address] [id number] [place] [id number] March, [facility] [place] [facility] [address], [place] [address] March, [facility] [place] [facility] [address] [facility] [id number], [place] [address] March, [facility] [place] [facility] [address] [facility] [id number][place] [address] Feb, [facility] [place] [address] [id number] [place] [id number] Feb, [facility] [place] [address] [id number] [place] [id number] Feb, [facility] [place] [address] [id number] [place] [id number] Feb, [facility] [place] [facility] [address] [facility] [id number][place] [address] Feb, [facility] [place] [address] [id number] [place] [id number] Feb, [facility] [place] [address] [id number] [place] [id number] Jan, [facility] [place] [address] [id number] [place] [id number] Jan, [facility] [place] [address] [id number] [place] [id number] Dec, [facility] [place] [address] [id number] [place] [id number] Dec, [facility] [address] [facility] [id number][place] [address] Dec, [facility] [place] [address] [id number] [place] [id number] Dec, [facility] [place] [address] [id number] [place] [id number] Dec, [facility] [place] [address] [id number] [place] [id number] Dec, [facility] [place] [address] [id number] [place] [id number] Dec, [facility] [address] [facility] [id number], [place] [address] Nov, [facility] [place] [address] [id number] [place] [id number] Nov, [facility] [place] [address] [id number] [place] [id number] Nov, [facility] [place] [address] [id number] [place] [id number] Nov, [facility] [place] [address] [id number] [place] [id number] Nov, [facility] [address] [facility] [id number][place] [address] Oct, [facility] [place] [address] [id number] [place] [id number] Oct, [facility] [place] [address] [id number] [place] [id number] Oct, [facility] [place] [address] [id number] [place] [id number] Oct, [facility] [place] [facility] [address] [id number] [place] [address] Oct, [facility] [place] [facility] [address] [facility] [id number] [place] [address] Oct, [facility] [place] [facility] [address] [facility] [id number][place] [address] Oct, [facility] [place] [address] [id number] [place] [id number] Sep, [facility] [place] [facility] [address] [facility] [id number][place] Sep, [facility] [place] [facility] [address] [facility] [id number], [place] [address] Sep, [facility] [place] [address] [id number][place] [id number] Sep, [facility] [place] [address] [id number] [place] [id number] Sep, [facility] [place] [address] [id number][place] [id number] Sep, [facility] [place] [facility] [address] [facility] [id number][place] [address] Sep, [facility] [place] [facility] [address] [facility] [id number], [place] [address] Sep, [facility] [place] [facility] [address] [facility] [id number][place] 60594[place] [address] Sep, [facility] [place] [address] [id number], [place] [id number] Aug, [facility] [place] [facility] [address] [facility] [id number][place] 84982594[place] [address] Aug, [facility] [place] [address] [facility] [id number][place] [id number] Aug, [facility] [address] [id number] [place] [address] Aug, [facility] [address] [id number] [place]520[place]- [address] Aug, [facility] [place] [address] [id number] [place] [id number] Aug, [facility] [place] [address] [id number] [place] [id number] Aug, [facility] [address] [id number] [place] [address] Aug, [facility] [place] [address] [id number] [place] [id number] Aug, [facility] [place] [address] [id number] [place] [id number] Jul, [facility] [place] [address] [id number] [place] [id number] Jun, [facility] [place] [address] [id number] [place] [id number] May, [facility] [place] [address] [id number] [place] [id number] May, [facility] [place] [address] [id number] [place] [id number] May, [facility] [place] [address] [id number] [place] [id number] May, [facility] [place] [address] [id number] [place] [id number] May, [facility] [place] [address] [id number] [place] [id number] May, [facility] [address] [id number] [place] [id number] May, [facility] [place] [address] [id number] [place] [id number] Apr, [facility] [place] [address] [id number] [place] [id number] Apr, [facility] [place] [address] [id number] [place] [id number] Apr, [facility] [place] [address] [id number] [place] [id number] Apr, [facility] [place] [address] [id number] [place] [id number] Apr, [facility] [place] [address] [id number] [place] [id number] Apr, [facility] [place] [address] [id number] [place] [id number] March, [facility] [place] [address] [id number] [place] [id number] March, [facility] [place] [address] [id number] [place] [id number] Feb, [facility] [place] [address] [id number] [place] [id number] Feb, [facility] [place] [address] [id number] [place] [id number] Feb, [facility] [place] [address] [id number] [place] [id number] Jan, [facility] [place] [address] [id number] [place] [id number] Jan, [facility] [place] [address] [id number] [place] [id number] Jan, [facility] [place] [address] [id number] [place] [id number] Jan, [facility] [place] [address] [id number] [place] [id number] Dec, [facility] [address] [id number] [address] Dec, [facility] [place] [address] [id number] [place] [id number] Dec, [facility] [place] [address] [id number] [place] [id number] Nov, [facility] [place] [address] [id number] [place] [id number] Nov, [facility] [place] [address] [id number] [place] [id number] Nov, [facility] [place] [facility] [address] [id number] [place] [address]- [address]196 Oct, [facility] [place] [facility] [address] [id number] [place] [address]- 4306 Oct, [facility] [place] [facility] [address] [id number] [place] [address]- 8990 Oct, [facility] [place] [facility] [address] [id number] [place] [address]- 7064 Aug, [facility] [place] [facility] [address] [id number] [place] [address]- 2680 Aug, [facility] [place] [facility] [address] [id number] [place] [address]- 3523 Aug, [facility] [place] [facility] [address] [id number] [place] [address]- [address] March, [facility] [place] [facility] [address] [id number], [place] [address]- [address] Oct, [facility] [place] [facility] [address] [id number] [place] [address]- 9959 Oct, [facility] [place] [facility] [address] [id number][place] [address]- 9224 Sep, [facility] [place] [facility] [address] [id number], [place] [address]- 7037 Sep, [facility] [place] [facility] [address] [id number], [place] [address]- 0183 Sep, [facility] [place] [facility] [address] [id number] [place] [address]- 7028 Aug, [facility] [place] [facility] [address] [id number], [place] [address]- 6[address] Aug, [facility] [place] [facility] [address] [id number], [place] [address]- [address] Jun, [facility] [place] [facility] [address], [place] [address] May, [facility] [address] Jan, [facility] [address], [place] [address]- [address] Nov, [facility] [address], [place] [address] Oct, [facility] [id number] [place] [address] Sep, [facility] [id number] [place] [address] 898062- 8500 Sep, [facility] [id number] [place] [address]- 0190 Sep, [facility] [id number] [place] [address]- 4585 Sep, [facility] [address], [place] [address]- [address]64 Sep, [facility] [id number] [place] [address] 253230- 7863 Aug, [facility] [address], [place] [address]- [address] Aug, [facility] [address], [place] [address]- [address] Jul, [facility] [address] [address] Jun, IMMUNIZATIONS No Known Immunizations SOCIAL HISTORY Never Assessed REASON FOR VISIT f/u, PT has been having problems with her blood sugars and has been very dizzy. Pt reports more chest pains and feels as if she is going to pass out-Julia VILLA PLAN OF CARE Activity Details Follow Up [address] Tineo office Reason: VITAL SIGNS Height 67.7 in 2018-02-11 Heart Rate 87 bpm 2018-02-11 Respiratory Rate 22 2018-02-11 Oximetry 99 % 2018-02-11 Blood pressure systolic 130 mmHg 2018-02-11 Blood pressure diastolic 84 mmHg 2018-02-11 MEDICATIONS Medication Instructions Dosage Frequency Start Date End Date Duration Status Levemir 100UNIT Subcutaneous 2 times a day inject 65U in am and 75U at HS 12h 28 Not-Taking Insulin Syringe-Needle U-100 28G X 1/2 subcutaneously Once a day as directed 24h Dec, Active Fluticasone Propionate 50MCG/ACT Nasally Once a day 1 spray in each nostril 24h Active True Metrix Meter w/Device Test blood sugar 12h Aug, 12 months Active Humalog 100 UNIT/ML Subcutaneous 3 times a day 23 units just before meals 8h Aug, 12 months Active Insulin Syringe-Needle U-100 1ML/31G subcutaneously Once a day as directed 24h Active Lancets 1 subcutaneously 2 times a day test blood sugar 12h Aug, 12 months Active Januvia 100MG Orally Once a day TAKE ONE TABLET BY MOUTH ONCE DAILY 24h 90 days Active Gabapentin 400MG Orally at bedtime 1 tablet 90 days Active Pen [place] 31G X 8 MM subcutaneously 2 times a day as directed 12h Dec 90 days Active ProAir HFA 108 (90 Base) MCG/ACT Inhalation every 4-6 hours as needed 2 puffs Feb, 30 days Not-Taking Augmentin Active Cymbalta 60 mg Orally Once a day 1 capsule 24h 30 Jul, 2015 90 days Active Levemir 100 UNIT/ML Subcutaneous 2 times a day inject 50U in am and 50U at HS 12h Dec, 12 months Active Aspirin 81 MG Orally every 2 days 1 tablet 90 days Active Vitamin B-12 100 MCG Orally Once a day 1 tablet 24h Active Cetirizine HCl 10MG Orally Once a day TAKE ONE TABLET BY MOUTH ONCE DAILY 24h 1 May, 2018 90 days Active iron Nov, Active Pen [place] 31G/8MM subcutaneously 2 times a day as directed 12h 25 Active Lisinopril 5 mg Orally Once a day 1 tablet 24h May, 90 days Active Atorvastatin Calcium 40 mg Orally Once a day 1 tablet 24h 90 days Active Ventolin HFA 108MCG/A INHALE TWO PUFFS BY MOUTH EVERY 4 TO 6 HOURS NEEDED FOR COUGH AND FOR SHORTNESS OF BREATH AND FOR WHEEZING Active Victoza 18MG/3ML Subcutaneous Once a day 1.8mg 24h Nov, 12 months Active Multivitamin Adult - Active True Metrix Blood Glucose Test 1 subcutaneously 2 times a day test blood sugar 12h 24 Aug, 2017 12 months Active RESULTS No Results PROCEDURES No Known [...] 08/2016 Hospitalization History chest pain ED visit [facility], pt scheduled for heart cath on May Hospitalization History [facility] 2012 Hospitalization History Chest pain-[facility] 12/22/16
--- OUTSIDE RECORDS SUMMARY | 2018-11-01 18:53 | XMS REPORT ---
Author Author GINNY GWEN [facility] Address [address] [place] [address] Care Team Providers Care Paint Department Supervisor Name Role Phone GWEN GROSS Unavailable PROBLEMS Type Condition ICD9-CM Code IGP04-HZ Code Onset Dates Condition Status SNOMED Code Problem Other seasonal allergic rhinitis J30.2 Active 342176798 Problem Polyneuropathy associated with underlying disease G63 Active 072667371 Problem Other chronic pain G89.29 Active 71956900 Problem Vitamin D deficiency E55.9 Active 89485817 Problem Recurrent major depressive disorder, in partial remission F33.41 Active 04977230 Problem senior living 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 Active 640947811 Problem Syncope, unspecified syncope type R55 Active 930216162 Problem Stage 2 chronic kidney disease N18.2 Active 565774694 Problem Type 2 diabetes mellitus with diabetic polyneuropathy E11.42 Active 49366763 Problem Episodic mood disorder F39 Active 30564342 Problem Dyslipidemia E78.5 Active 782408273 Problem Serum creatinine raised R79.89 Active 136973522 Problem Lumbago with sciatica, left side M54.42 Active 808230576 Problem Generalized anxiety disorder F41.1 Active 98761502 Problem Lumbago with sciatica, right side M54.41 Active 581876649 ALLERGIES Substance Reaction Event Type Date Status MetFORMIN HCl ER nausea and vomiting Drug Allergy Jan, Active Codeine Phosphate dizziness Drug Allergy Jan, Active metal/crown/watches rash Non Drug Allergy Jan, Active ENCOUNTERS Encounter Location Date Diagnosis [facility] [id number] [address] Jun, [facility] [id number] [address] May, [facility] [id number] [address] March, [place] [address] [address] March, Type 2 diabetes mellitus with diabetic [...] H60.502 and Non-adherence to medical treatment Z91.19 [address] [facility] [address] [id number] [address] Feb, Dental examination Z01.20 [place] [id number] [place] [address] 95348- 3302 Feb, Labile hypertension R09.89 ; Syncope, unspecified syncope type R55 ; Chest pain, unspecified type R07.9 and Dyslipidemia E78.5 [place] [id number] [place] [address] 32019- 0734 Feb, [place] [id number] [place] [address] 92019- 9418 Jan, [facility] [address] [facility] [address] [id number][place] [id number] Jan, Dental examination Z01.20 [place] [id number] [place] [address] 00904- 5171 Jan, Acute non-recurrent maxillary sinusitis J01.00 and Dyslipidemia E78.5 [facility] [address] [facility] [address] [id number] [id number] Jan, Dental examination Z01.20 and Dental caries K02.9 [facility] [address] [id number] [id number] Jan, [facility] [address] [id number] [address] Dec, Dental examination Z01.20 [facility] [id number] [place] [address] 37127 -2842 Dec, Seasonal allergic rhinitis, unspecified trigger J30.2 [place] [id number] [place] [address] 69151- 9787 Nov, [place] [address] [address]- [address]64 Nov, Type 2 diabetes mellitus with diabetic polyneuropathy E11.42 ; Dyslipidemia E78.5 ; Lumbago with sciatica, right side M54.41 ; Lumbago with sciatica, left side M54.42 ; senior living 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 ; Polyneuropathy associated with underlying disease G63 ; Stage 2 chronic kidney disease N18.2 and Syncope, unspecified syncope type R55 [place] [address] [address]- [address] 14 Oct, 2017 Type 2 diabetes mellitus with diabetic polyneuropathy E11.42 ; Acute otitis externa of left ear, unspecified type H60.502 ; Overweight (BMI 25.0-29.9) E66.3 ; Dyslipidemia E78.5 and Polyneuropathy associated with underlying disease G63 [place] [id number] [place] [address] 26328- 9996 Sep, [place] [address] 20334- 7035 Aug, Abnormal mammogram R92.8 [place] [address] [address]75- 1181 Aug, Type 2 diabetes mellitus with diabetic polyneuropathy E11.42 [address] [address] 57[address]- 0188 Aug, [place] [address] 88652- 6445 Aug, Type 2 diabetes mellitus with diabetic polyneuropathy E11.42 ; Syncope, unspecified syncope type R55 ; Other chronic pain G89.29 and Encounter for immunization Z23 [place] [id number] [place] [address] 27541- 4544 Aug, Type 2 diabetes mellitus with diabetic polyneuropathy E11.42 [place] [id number] [place] [address] 57579- 0709 Jul, Type 2 diabetes mellitus with diabetic polyneuropathy E11.42 and Serum creatinine raised R79.89 [address] [address] 25001- 3137 Jul, Type 2 diabetes mellitus with diabetic polyneuropathy E11.42 and Serum creatinine raised R79.89 [address] [address] 83672- 3319 May, [place] [address] 47885- 8695 May, [place] [address] 15817- 3756 May, Head injury, initial encounter S09.90XA ; Facial pain R51 ; Neck pain M54.2 and Fall, initial encounter W19.XXXA [place] [address] 62798- 0071 May, Type 2 diabetes mellitus with diabetic polyneuropathy E11.42 [place] [id number] [place] [address] 36530- 3046 May, [place] [address] 42571- 9349 May, Type 2 diabetes mellitus with diabetic polyneuropathy E11.42 [place] [id number] [place] [address] 73249- 1725 May, Dyslipidemia E78.5 ; senior living 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 ; Type 2 diabetes mellitus with diabetic polyneuropathy E11.42 ; Generalized anxiety disorder F41.1 and Other seasonal allergic rhinitis J30.2 [place] [address] [address]259- 3575 Apr, Type 2 diabetes mellitus with diabetic polyneuropathy E11.42 [place] [address] [address] March, [place] [address] [address] March, Abnormal mammogram R92.8 [place] [address] [address] 4[address] Feb, Abnormal mammogram R92.8 [place] [address] [address] 5558 Feb, Diabetes type 2, uncontrolled E11.65 [place] [address] [place] [address] 07007- 5650 Feb, Screening for breast cancer Z12.39 [place] [address] [place] [address] 21693- 7102 Jan, Screening for breast cancer Z12.39 [place] [address] [address]- 5284 Jan, Type 2 diabetes mellitus with diabetic polyneuropathy E11.42 ; senior living 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 ; Other viral agents as the cause of diseases classified elsewhere B97.89 and Acute upper respiratory infection, unspecified J06.9 [place] [id number] [address] 3[address] Jan, [place] [address] [address] 3637 Dec, Diabetes type 2, uncontrolled E11.65 ; Dyslipidemia E78.5 ; Generalized anxiety disorder F41.1 ; Depression, unspecified depression type F32.9 ; senior living 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 and Polyneuropathy associated with underlying disease G63 [place] [id number] [address] 4620 Dec, [place] [id number] [place] [address] 18965- 4156 14 Dec, 2016 [place] [id number] [place] [address] 08679- 1790 03 Dec, 2016 [place] [id number] [place] [address] 71412- 4805 02 Dec, 2016 [place] [id number] [place] [address] 15489- 9731 Oct, Well woman exam Z01.419 ; Screening for breast cancer Z12.39 ; 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 ; Type 2 diabetes mellitus without complications E11.9 and Encounter for immunization Z23 [address] 8[address]22- 1844 Sep, [place] [id number] [place] [address] 33026- 9281 Sep, Diabetes type 2, uncontrolled E11.65 ; Dyslipidemia E78.5 and Depression, unspecified depression type F32.9 [place] [id number] [place] [address] 94690- 6783 Aug, Diabetes type 2, uncontrolled E11.65 ; Encounter for immunization Z23 ; Nasal congestion R09.81 and Ear pressure, bilateral H93.8X3 [place] [address] [place] [address] 72366- 7280 Jul, Eustachian tube dysfunction, left H69.82 [place] [id number] [place] [address] 69896- 1755 Jun, [place] [id number] [place] [address] 27030- 4465 Jun, Hospital discharge follow-up Z09 ; Syncope, unspecified syncope type R55 and Acute suppurative otitis media of left ear without spontaneous rupture of tympanic membrane, recurrence not specified H66.002 [place] [address] [place] [address] 65416- 1476 May, [place] [id number] [address]- 0425 May, [place] [address] [place] [address] 22614- 0224 May, [place] [address] [address]- 9659 May, Diabetes type 2, uncontrolled E11.65 ; [...] and Generalized anxiety disorder F41.1 [place] [address] [address]- 8287 March, [place] [id number] [place] [address] [id number] March, Syncope, unspecified syncope type R55 and Depression, unspecified depression type F32.9 [place] [id number] [place] [address] [id number] March, Orthostatic hypotension I95.1 [facility] [id number] [place] [address] [id number] March, [place] [address] [facility] [id number] [address]- 4061 March, [facility] [id number][place] [id number] Feb, [facility] [address] [facility] [id number] [id number] Feb, Dental examination Z01.20 [facility] [id number] [place] [address] [id number] Jan, [facility] [id number] [place] [address] [id number] Jan, [facility] [id number] [place] [address] [id number] Dec, Diabetes type 2, uncontrolled E11.65 [facility] [address] [id number] [id number] Nov, [facility] [address] [id number] [id number] Nov, Encounter for dental examination Z01.20 [facility] [address] [id number], [place] [id number] Nov, Dental examination Z01.20 [facility] [address] [id number] Sep, Diabetes type 2, uncontrolled E11.65 [facility] [address] [id number][place] [id number] Sep, Encounter for dental examination Z01.20 and Dental caries, unspecified K02.9 [facility] [address] [id number] Sep, Bipolar 2 disorder F31.81 [facility] [address] [id number] Aug, [facility] [address] [place] [address] [id number] Aug, Follow up V67.9 [facility] [address] [address]- 3147 Jul, Bipolar disorder, unspecified 296.80 [facility] [address] [id number] Jul, Thyroid enlarged 240.9 and Bipolar disorder, unspecified 296.80 [facility] [id number] [id number] Jun, Diabetes mellitus type 2, uncontrolled 250.02 ; Bipolar disorder, unspecified 296.80 and Rash 782.1 [facility] [address] [phone] Jun, [facility] [id number] [id number] May, Urinary tract infection 599.0 [facility] [id number] [id number] May, Urinary tract infection 599.0 [facility] [id number][place] [phone] May, [facility] [id number] [place] [address] [id number] May, Diabetes mellitus type 2, uncontrolled 250.02 and Pica in adults 307.52 [facility] [id number] [place] [address] [id number] Apr, Follow up V67.9 and Diabetes mellitus type 2, uncontrolled 250.02 [facility] [id number] [place] [address] [id number] Apr, [facility] [id number] [place] [address] [id number]- 9998 Apr, [facility] [id number] [place] [address] [id number] Apr, Hyperlipidemia 272.4 [facility] [id number] [place] [address] [id number] March, Diabetes type 2, uncontrolled 250.02 [facility] [id number] [place] [address] [id number] March, Diabetes mellitus type 2, uncontrolled 250.02 [facility] [id number] [place] [address] [id number] March, Diabetes type 2, uncontrolled 250.02 [facility] [id number], [place] [id number] March, [facility] [id number][place] [id number] March, [facility] [id number], [place] [id number] Feb, [facility] [id number] [place] [address] [id number]- 2670 Feb, [facility] [id number] [place] [address] [id number]- 7205 Feb, [facility] [id number] [place] [address] [id number] Jan, [facility] [place] [facility] [address] [facility] [id number] [address]- 2666 Jan, [facility] [place] [facility] [address] [facility] [id number] [place] [address]- 2306 Jan, [facility] [address] [facility] [id number][place] [id number] Jan, [facility] [place] [facility] [address] [facility] [id number] [address]- 6966 Jan, [facility] [place] [facility] [address] [facility] [id number] [place] [address]- 5006 Jan, [facility] [address] [facility] [id number][place] [id number] Jan, [facility] [place] [facility] [address] [address]- 8896 Jan, [facility] [place] [facility] [id number] [address]- 6726 Dec, [facility] [address] [facility] [id number], [place] [id number] Dec, [facility] [place] [facility] [id number] [address]- 2026 Dec, [facility] [address] [id number], [place] [id number] Dec, [facility] [place] [facility] [id number] [address]- 2546 Dec, [facility] [address] [facility] [id number][place] [id number] Dec, [facility] [place] [facility] [address] [facility] [id number] [address]- 4526 Dec, [facility] [place] [facility] [address] [facility] [id number] [address]- 2546 Dec, [facility] [address] [id number], [place] [id number] Dec, [facility] [address] [id number], [place] [id number] Dec, [facility] [place] [facility] [address] [facility] [id number] [place] [address]- 1375 Dec, [facility] [place] [facility] [address] [facility] [id number] [place] [address]- 6390 Nov, [facility] [place] [facility] [address] [id number] [place] [address]- 8032 Oct, [facility] [place] [facility] [address] [facility] [id number] [place] [address]- 2728 Oct, [facility] [address] [facility] [id number], [place] [id number] Sep, [facility] [address] [id number] [address]- 0746 Sep, [facility] [address] [facility] [id number], [place] [id number] Sep, [facility] [place] [facility] [address] [facility] [id number] [address]- 0037 Sep, [facility] [address] [facility] [id number][place] [id number] Aug, [facility] [place] [facility] [address] [address]- 0592 Aug, [facility] [address] [facility] [id number], [place] [id number] Aug, [facility] [place] [facility] [address] [facility] [id number] [address]- 0623 Aug, [facility] [place] [facility] [address] [facility] [id number] [address]- 7429 Jul, [facility] [place] [facility] [address] [facility] [id number] [address]- 3420 Jul, [facility] [address] [facility] [id number], [place] [id number] Jul, [facility] [place] [facility] [id number] [place] [address]- 5986 Jul, [facility] [address] [id number] [place] [id number] Jun, [facility] [address] [id number] [place] [id number] Jun, [facility] [place] [facility] [address] [facility] [id number] [place] [address]- 4470 Jun, [facility] [place] [facility] [address] [facility] [id number] [place] [address]- 0266 Jun, [facility] [address] [id number] [place] [id number] Jun, [facility] [place] [facility] [address] [facility] [id number] [place] [address]- 5599 Jun, [facility] [address] [facility] [id number] [place] [id number] May, [facility] [place] [facility] [address] [facility] [id number] [address]- 0513 May, [facility] [place] [facility] [address] [facility] [id number] [place] [address]- 2021 Apr, [facility] [place] [facility] [address] [facility] [id number] [place] [address]- 3214 Apr, [facility] [address] [facility] [id number] [place] [id number] Apr, [facility] [place] [facility] [address] [facility] [id number] [place] [address]- 8961 Apr, [facility] [place] [facility] [address] [facility] [id number] [place] [address]- 8616 Apr, [facility] [address] [facility] [id number] [place] [id number] March, [facility] [place] [facility] [address] [facility] [id number] [place] 9402 March, [facility] [place] [facility] [address] [facility] [id number] [place]- 1451 March, [facility] [address] [facility] [id number] [place] [id number] March, [facility] [address] [facility] [id number] [address]- 4626 March, [facility] [address] [facility] [id number] [place] [id number] March, [facility] [address] [facility] [id number] [address]- 0226 March, [facility] [address] [facility] [id number][place] [id number] Feb, [facility] [place] [facility] [address] [facility] [id number] [address]- 2874 Feb, [facility] [place] [facility] [address] [id number] [address]- 8166 Jan, [facility] [id number], [place] [id number] Jan, [facility] [place] [facility] [id number] [address]- 1522 Jan, [facility] [place] [facility] [address]00565100[place] [address]- 4523 Jan, [facility] [address] [id number], [place] [id number] Jan, [facility] [address] [facility] [id number], [place] [id number] Dec, [facility] [place] [facility] [address] [facility] [id number] [address]- 5626 Dec, [facility] [place] [facility] [address] [facility] [id number] [address]- 5347 Dec, [facility] [address] [facility] [id number][place] [id number] Dec, [facility] [place] [facility] [address] [facility] [id number] [place] [address] Dec, [facility] [address] [facility] [id number][place] [id number] Dec, [facility] [place] [facility] [address] [facility] [id number] [place] [address] Dec, [facility] [place] [facility] [address] [facility] [id number] [address] Dec, [facility] [address] [facility] [id number] [place] [id number] Dec, [facility] [address] [facility] [id number] [place] [id number] Nov, [facility] [place] [facility] [address] [facility] [id number] [place] [address] Nov, [facility] [place] [facility] [address] [id number] [place] [address] Nov, [facility] [id number][place] [id number] Nov, [facility] [id number] [place] [id number] Oct, [facility] [place] [facility] [address] [id number] [place] [address] Oct, [facility] [address] [id number][place] [id number] Oct, [facility] [place] [facility] [id number] [address] Oct, [facility] [place] [facility] [id number] [address] Oct, [facility] [place] [facility] [address] [facility] [id number] [place] [address] Oct, [facility] [address] [facility] [id number][place] [id number] Oct, [facility] [place] [facility] [address] [facility] [id number] [place] [address] Oct, [facility] [place] [facility] [address] [id number] [address] Sep, [facility] [place] [facility] [address] [facility] [id number] [place] [address] Sep, [facility] [address] [facility] [id number][place] [id number] Sep, [facility] [place] [facility] [address] [facility] [id number] [address] Sep, [facility] [place] [facility] [address] [facility] [id number] [place] [address] Sep, [facility] [place] [address] [facility] [id number][place] [id number] Sep, [facility] [place] [address] [facility] [id number][place] [id number] Aug, [facility] [place] [facility] [address] [facility] [id number] [address] Aug, [facility] [place] [facility] [id number] [address] Aug, [facility] [place] [address] [facility] [id number][place] [id number] Aug, [facility] [place] [address] [facility] [id number][place] [id number] Aug, [facility] [place] [facility] [address] [facility] [id number] [address] Aug, [facility] [place] [facility] [address] [facility] [id number] [address] Aug, [facility] [place] [facility] [address] [facility] [id number] [place] [address] Aug, [facility] [place] [address] [facility] [id number][place] [id number] Jul, [facility] [place] [facility] [address] [facility] [id number] [place] [address] Jul, [facility] [place] [facility] [address] [facility] [id number] [place] [address] 18 Jul, 2013 [facility] [place] [address] [facility] [id number][place] [id number] Jul, [facility] [place] [address] [id number] [place] [id number] Jul, [facility] [place] [facility] [address] [facility] [id number] [place] [address] May, [facility] [place] [facility] [address] [facility] [id number] [place] [address]- [address] Apr, [facility] [place] [address] [id number] [place] [id number] Apr, [facility] [place] [address] [id number] [place] [id number] Apr, [facility] [place] [facility] [address] [facility] [id number] [place] [address] March, [facility] [place] [address] [id number] [place] [id number] March, [facility] [place] [address] [id number] [place] [id number] March, [facility] [place] [address] [id number] [place] [id number] March, [facility] [place] [address] [id number] [place] [id number] March, [facility] [place] [address] [id number] [place] [id number] March, [facility] [place] [facility] [id number] [address] March, [facility] [place] [facility] [address] [facility] [id number] [place] [address] March, [facility] [place] [facility] [address] [facility] [id number] [place] [address] Feb, [facility] [place] [address] [id number] [place] [id number] Feb, [facility] [place] [address] [id number] [place] [id number] Feb, [facility] [place] [address] [id number] [place] [id number] Feb, [facility] [place] [facility] [address] [facility] [id number] [place] [address] Feb, [facility] [place] [address] [id number] [place] [id number] Feb, [facility] [place] [address] [id number] [place] [id number] Jan, [facility] [place] [address] [id number] [place] [id number] Jan, [facility] [place] [address] [id number] [place] [id number] Dec, [facility] [place] [address] [id number] [place] [id number] Dec, [facility] [address] [facility] [id number] [address] Dec, [facility] [place] [address] [id number] [place] [id number] Dec, [facility] [place] [address] [id number] [place] [id number] Dec, [facility] [place] [address] [id number] [place] [id number] Dec, [facility] [place] [address] [id number] [place] [id number] Dec, [facility] [address] [facility] [id number] [place] [address] Nov, [facility] [place] [address] [id number] [place] [id number] Nov, [facility] [place] [address] [id number] [place] [id number] Nov, [facility] [place] [address] [id number] [place] [id number] Nov, [facility] [place] [address] [id number] [place] [id number] Nov, [facility] [address] [facility] [id number] [address] Oct, [facility] [place] [address] [id number] [place] [id number] Oct, [facility] [place] [address] [id number] [place] [id number] Oct, [facility] [place] [address] [id number] [place] [id number] Oct, [facility] [place] [facility] [address] [id number] [place] [address] Oct, [facility] [place] [facility] [address] [facility] [id number] [place] [address] Oct, [facility] [place] [facility] [address] [facility] [id number] [place] [address] Oct, [facility] [place] [address] [id number] [place] [id number] Sep, [facility] [place] [facility] [address] [facility] [id number] [place] [address] Sep, [facility] [place] [facility] [address] [facility] [id number] [address] Sep, [facility] [address] [id number][place] [id number] Sep, [facility] [place] [address] [id number] [place] [id number] Sep, [facility] [place] [address] [id number], [place] [id number] Sep, [facility] [place] [facility] [address] [facility] [id number] [address] Sep, [facility] [place] [facility] [address] [facility] [id number] [address] Sep, [facility] [place] [facility] [address] [facility] [id number] [place] 50075864[place] [address] Sep, [facility] [place] [address] [id number], [place] [id number] Aug, [facility] [place] [facility] [address] [facility] [id number] [place] 08023886- [address] Aug, [facility] [place] [address] [facility] [id number][place] [id number] Aug, [facility] [address] [id number] [place] [address]- [address] Aug, [facility] [address] [id number] [place] 84676[place]- [address] Aug, [facility] [place] [address] [id number] [place] [id number] Aug, [facility] [place] [address] [id number] [place] [id number] Aug, [facility] [address] [id number] [place] [address]- [address] Aug, [facility] [place] [address] [id number] [place] [id number] Aug, [facility] [place] [address] [id number] [place] [id number] Jul, [facility] [place] [address] [id number] [place] [id number] Jun, [facility] [place] [address] [id number] [place] [id number] May, [facility] [place] [address] [id number] [place] [id number] May, [facility] [place] [address] [id number] [place] [id number] May, [facility] [place] [address] [id number] [place] [id number] May, [facility] [place] [address] [id number] [place] [id number] May, [facility] [place] [address] [id number] [place] [id number] May, [facility] [place] [address] [id number] [place] [id number] May, [facility] [place] [address] [id number] [place] [id number] Apr, [facility] [place] [address] [id number] [place] [id number] Apr, [facility] [place] [address] [id number] [place] [id number] Apr, [facility] [place] [address] [id number] [place] [id number] Apr, [facility] [place] [address] [id number] [place] [id number] Apr, [facility] [place] [address] [id number] [place] [id number] Apr, [facility] [place] [address] [id number] [place] [id number] March, [facility] [place] [address] [id number] [place] [id number] March, [facility] [place] [address] [id number] [place] [id number] Feb, [facility] [place] [address] [id number] [place] [id number] Feb, [facility] [place] [address] [id number] [place] [id number] Feb, [facility] [place] [address] [id number] [place] [id number] Jan, [facility] [place] [address] [id number] [place] [id number] Jan, [facility] [place] [address] [id number] [place] [id number] Jan, [facility] [place] [address] [id number] [place] [id number] Jan, [facility] [place] [address] [id number] [place] [id number] Dec, [facility] [address] [id number] [address] Dec, [facility] [place] [address] [id number] [place] [id number] Dec, [facility] [place] [address] [id number] [place] [id number] Nov, [facility] [place] [address] [id number] [place] [id number] Nov, [facility] [place] [address] [id number] [place] [address] Nov, [facility] [place] [facility] [address] [id number] [place] [address]- [address] Oct, [facility] [place] [facility] [address] [id number] [place] [address]- 8576 Oct, [facility] [place] [facility] [address] [id number] [place] [address]- 4769 Oct, [facility] [place] [facility] [address] [id number] [place] [address]- 7320 Aug, [facility] [place] [facility] [address] [id number] [place] [address]- 7754 Aug, [facility] [place] [facility] [address] [id number] [place] [address]- 8875 Aug, [facility] [place] [facility] [address] [id number] [place] [address]- 7563 March, [facility] [place] [facility] [address] [id number] [address]- [address]645 Oct, [facility] [place] [facility] [address] [id number] [place] [address]- [address]304 Oct, [facility] [place] [facility] [address] [id number] [place] [address]- 7477 Sep, [facility] [place] [facility] [address] [id number] [place] [address]- [address]75 Sep, [facility] [place] [facility] [address] [id number] [place] [address]- 8116 Sep, [facility] [place] [facility] [address] [id number] [place] [address]- 6576 Aug, [facility] [place] [facility] [address] [id number] [place] [address]- 7168 Aug, [facility] [place] [facility] [address] [id number] [place] [address]- 7923 Jun, [facility] [place] [facility] [id number] [address] May, [facility] [id number] [address] Jan, [facility] [id number] [address] Nov, [facility] [id number] [address]- [address] Oct, [facility] [id number] [place] [address]- 4569 Sep, [facility] [id number] [place] [address]10- 2842 Sep, [facility] [id number] [place] [address] 24290- 6091 Sep, [facility] [id number] [place] [address]- 6607 Sep, [facility] [id number] [place] [address] 39[address]- 8669 Sep, [facility] [id number] [place] [address]16- 5827 Aug, [facility] [id number] [address]24 Aug, [facility] [id number] [address]- [address] Jul, [facility] [id number] [address]- [address] Jun, IMMUNIZATIONS No Known Immunizations SOCIAL HISTORY Never Assessed REASON FOR VISIT [email or web address]/rachel PLAN OF CARE Activity Details Follow Up #30B restorative 30mins Reason: VITAL SIGNS Blood pressure systolic 133 mmHg 2018 Blood pressure diastolic 73 mmHg 2018 MEDICATIONS Medication Instructions Dosage Frequency Start Date End Date Duration Status Victoza 18MG/3ML Subcutaneous Once a day 1.8mg 24h Nov, 12 months Active Insulin Syringe-Needle U-100 28G X 1/2 subcutaneously Once a day as directed 24h Dec, Active Cymbalta 60 mg Orally Once a day 1 capsule 24h 30 Jul, 2015 90 days Active Lancets 1 subcutaneously 2 times a day test blood sugar 12h Aug, 12 months Active Multivitamin Adult - Active True Metrix Blood Glucose Test 1 subcutaneously 2 times a day test blood sugar 12h Aug, 12 months Active Humalog 100 UNIT/ML Subcutaneous 3 times a day 23 units just before meals 8h Aug, 12 months Active Albuterol Sulfate 90 mcg/actuation Inhalation every 4- 6 hrs prn cough, shortness of breath or wheezing 2 puffs Dec, Active Atorvastatin Calcium 40 mg Orally Once a day 1 tablet 24h 90 days Active Insulin Syringe-Needle U-100 1ML/31G subcutaneously Once a day as directed 24h Active Cetirizine HCl 10MG Orally Once a day TAKE ONE TABLET BY MOUTH ONCE DAILY 24h 1 May, 2018 90 days Active Levemir 100UNIT Subcutaneous 2 times a day inject 65U in am and 75U at HS 12h 28 Not-Taking Gabapentin 400MG Orally at bedtime 1 tablet 90 days Active Levemir 100 UNIT/ML Subcutaneous 2 times a day inject 50U in am and 50U at HS 12h Dec, 12 months Active Januvia 100MG Orally Once a day TAKE ONE TABLET BY MOUTH ONCE DAILY 24h 90 days Active Pen [place] 31G X 8 MM subcutaneously 2 times a day as directed 12h Dec 90 days Active iron Nov, Active Lisinopril 5 mg Orally Once a day 1 tablet 24h May, 90 days Active Aspirin 81 MG Orally every 2 days 1 tablet 90 days Active Augmentin 875-125 MG Orally every 12 hrs 1 tablet 12h Jan, Feb, 10 day(s) Active True Metrix Meter w/Device Test blood sugar 12h Aug, 12 months Active Pen [place] 31G/8MM subcutaneously 2 times a day as directed 12h 25 Active Vitamin B-12 100 MCG Orally Once a day 1 tablet 24h Active Fluticasone Propionate 50MCG/ACT Nasally Once a day 1 spray in each nostril 24h Active RESULTS No Results PROCEDURES Procedure Date Ordered Result Body Site COMP ORAL EVALUATION - NEW/EST PT 2018 INTRAORL - CMPL SERIES CODE 85694 2018 TOPICAL FLUORIDE VARNISH 2018 PROPHYLAXIS - ADULT 2018 INSTRUCTIONS MEDICATIONS ADMINISTERED No Known Medications [...] 08/2016 Hospitalization History chest pain ED visit [facility], pt scheduled for heart cath on May Hospitalization History [facility] 2012 Hospitalization History Chest pain-[facility] 12/22/16
--- OUTSIDE RECORDS SUMMARY | 2018-11-01 18:53 | XMS REPORT ---
Author Author OSWALDO ALTAMIRANO Organization [facility] Address [address] [place] [address] Care Team Providers Care Cash Shortage Investigator Name Role Phone OSWALDO ALTAMIRANO Unavailable PROBLEMS Type Condition ICD9-CM Code PDQ33-TM Code Onset Dates Condition Status SNOMED Code Problem Other seasonal allergic rhinitis J30.2 Active 009296498 Problem Polyneuropathy associated with underlying disease G63 Active 400619702 Problem Other chronic pain G89.29 Active 67175233 Problem Vitamin D deficiency E55.9 Active 10834868 Problem Recurrent major depressive disorder, in partial remission F33.41 Active 25561284 Problem long term care pharmacist 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 Active 361483974 Problem Syncope, unspecified syncope type R55 Active 644711918 Problem Stage 2 chronic kidney disease N18.2 Active 271943661 Problem Type 2 diabetes mellitus with diabetic polyneuropathy E11.42 Active 18684100 Problem Episodic mood disorder F39 Active 85650987 Problem Dyslipidemia E78.5 Active 873613832 Problem Serum creatinine raised R79.89 Active 043047758 Problem Lumbago with sciatica, left side M54.42 Active 105445471 Problem Generalized anxiety disorder F41.1 Active 96091403 Problem Lumbago with sciatica, right side M54.41 Active [id number] ALLERGIES No Information ENCOUNTERS Encounter Location Date Diagnosis [facility] [address] [facility] [id number] [address] Jun, [facility] [address] [id number], [place] [address] 9[address] May, [facility] [address], [place] [address] March, [facility] [address] [id number], [place] [address] 2209 March, Type 2 diabetes mellitus with diabetic [...] H60.502 and Non-adherence to medical treatment Z91.19 [address] [address] [address] [facility] [id number] [id number] Feb, Dental examination Z01.20 [facility] [id number] [place] [id number] Feb, Labile hypertension R09.89 ; Syncope, unspecified syncope type R55 ; Chest pain, unspecified type R07.9 and Dyslipidemia E78.5 [address] [id number] [place] [address] 52184- 3950 Feb, [facility] [address] [address] Jan, [address] [id number] SPRINGS[place] [id number] Jan, Dental examination Z01.20 [facility] [id number] [place] [address] 08817- 8350 Jan, Acute non-recurrent maxillary sinusitis J01.00 and Dyslipidemia E78.[address] [id number] SPRINGS[place] [id number] Jan, Dental examination Z01.20 and Dental caries K02.[address] [id number] SPRINGS[place] [id number] Jan, [address] [id number] SPRINGS[place] [address] Dec, Dental examination Z01.20 [facility] [id number] [place] [address]179 -9889 Dec, Seasonal allergic rhinitis, unspecified trigger J30.2 [address] [id number] [place] [address] 03888- 4675 Nov, [place] [address] [address]- 3656 Nov, Type 2 diabetes mellitus with diabetic polyneuropathy E11.42 ; Dyslipidemia E78.5 ; Lumbago with sciatica, right side M54.41 ; Lumbago with sciatica, left side M54.42 ; detention 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 ; Polyneuropathy associated with underlying disease G63 ; Stage 2 chronic kidney disease N18.2 and Syncope, unspecified syncope type R55 [place] [address] [address]- 7092 Oct, Type 2 diabetes mellitus with diabetic polyneuropathy E11.42 ; Acute otitis externa of left ear, unspecified type H60.502 ; Overweight (BMI 25.0-29.9) E66.3 ; Dyslipidemia E78.5 and Polyneuropathy associated with underlying disease G63 [place] [id number] [place] [address] 33061- 7091 Sep, [place] [address] [address]- 8998 Aug, Abnormal mammogram R92.8 [place] [id number] [place] [address] 01757- 7232 Aug, Type 2 diabetes mellitus with diabetic polyneuropathy E11.42 [place] [id number] [place] [address] 25045- 3531 Aug, [place] [id number] [place] [address] 43141- 1867 Aug, Type 2 diabetes mellitus with diabetic polyneuropathy E11.42 ; Syncope, unspecified syncope type R55 ; Other chronic pain G89.29 and Encounter for immunization Z23 [place] [id number] [place] [address] 00115- 5477 Aug, Type 2 diabetes mellitus with diabetic polyneuropathy E11.42 [place] [id number] [place] [address] 81455- 0110 Jul, Type 2 diabetes mellitus with diabetic polyneuropathy E11.42 and Serum creatinine raised R79.89 [place] [id number] [place] [address] 77915- 1449 Jul, Type 2 diabetes mellitus with diabetic polyneuropathy E11.42 and Serum creatinine raised R79.89 [place] [id number] [place] [address] 42988- 1667 May, [place] [id number] [place] [address] 99680- 1342 May, [place] [id number] [place] [address] 83782- 2868 May, Head injury, initial encounter S09.90XA ; Facial pain R51 ; Neck pain M54.2 and Fall, initial encounter W19.XXXA [place] [id number] [place] [address] 62325- 1824 May, Type 2 diabetes mellitus with diabetic polyneuropathy E11.42 [place] [id number] [place] [address] 92333- 0065 May, [place] [id number] [place] [address] 03190- 6385 May, Type 2 diabetes mellitus with diabetic polyneuropathy E11.42 [place] [id number] [place] [address] 65128- 8939 May, Dyslipidemia E78.5 ; detention 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 ; Type 2 diabetes mellitus with diabetic polyneuropathy E11.42 ; Generalized anxiety disorder F41.1 and Other seasonal allergic rhinitis J30.2 [place] [id number] [place] [address] 23942- 7290 Apr, Type 2 diabetes mellitus with diabetic polyneuropathy E11.42 [place] [id number] [place] [address] 63217- 7826 March, [place] [address] [place] [address] 71508- 5506 March, Abnormal mammogram R92.8 [place] [id number] [place] [address] 09758- 7373 Feb, Abnormal mammogram R92.8 [place] [id number] [place] [address] 31115- 0598 Feb, Diabetes type 2, uncontrolled E11.65 [place] [id number] [place] [address] 26580- 5941 Feb, Screening for breast cancer Z12.39 [place] [id number] [place] [address] 39858- 7232 Jan, Screening for breast cancer Z12.39 [place] [id number] [place] [address] 22941- 3848 Jan, Type 2 diabetes mellitus with diabetic polyneuropathy E11.42 ; long term care pharmacist 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 ; Other viral agents as the cause of diseases classified elsewhere B97.89 and Acute upper respiratory infection, unspecified J06.9 [place] [id number] [place] [address] 76552- 7097 Jan, [place] [id number] [place] [address] 78232- 2125 Dec, Diabetes type 2, uncontrolled E11.65 ; Dyslipidemia E78.5 ; Generalized anxiety disorder F41.1 ; Depression, unspecified depression type F32.9 ; detention current use of insulin Z79.4 and Polyneuropathy associated with underlying disease G63 [place] [id number] [place] [address] 31198- 0145 16 Dec, 2016 [place] [id number] [place] [address] 77289- 4778 Dec, [place] [id number] [place] [address] 25021- 0889 Dec, [place] [id number] [place] [address] 14282- 1326 Dec, [place] [address] 88328- 9455 Oct, Well woman exam Z01.419 ; Screening for breast cancer Z12.39 ; long term care pharmacist current use of insulin Z79.4 ; Type 2 diabetes mellitus without complications E11.9 and Encounter for immunization Z23 [place] [address] 76286- 9044 Sep, [place] [address] 72371- 8687 Sep, Diabetes type 2, uncontrolled E11.65 ; Dyslipidemia E78.5 and Depression, unspecified depression type F32.[address] 22315- 9985 Aug, Diabetes type 2, uncontrolled E11.65 ; Encounter for immunization Z23 ; Nasal congestion R09.81 and Ear pressure, bilateral H93.8X3 [address] 81284- 5062 Jul, Eustachian tube dysfunction, left H69.82 [place] [address] 11049- 0158 Jun, [place] [address] 18091- 3917 Jun, Hospital discharge follow-up Z09 ; Syncope, unspecified syncope type R55 and Acute suppurative otitis media of left ear without spontaneous rupture of tympanic membrane, recurrence not specified H66.002 [place] [address] 94200- 3903 May, [place] [address] 90896- 3506 May, [place] [address] 31924- 0690 May, [facility] [address], [place] [address] 2106 May, Diabetes type 2, uncontrolled E11.65 ; [...] disturbance G47.9 and Generalized anxiety disorder F41.1 [facility] [address] [place] [address] 53932- 7768 March, [facility] [id number] [place] [address] [id number] March, Syncope, unspecified syncope type R55 and Depression, unspecified depression type F32.9 [facility] [id number] [place] [address] [id number] March, Orthostatic hypotension I95.1 [facility] [id number] [place] [address] [id number] March, [place] [address] [place] [address] [id number]- 5070 March, [facility] [id number], [place] [id number] Feb, [address] [id number] [place] [id number] Feb, Dental examination Z01.20 [facility] [id number] [place] [address] [id number] Jan, [facility] [id number] [place] [address] [id number] Jan, [facility] [id number] [place] [address] [id number] Dec, Diabetes type 2, uncontrolled E11.65 [facility] [id number] [place] [address] [id number] Nov, [facility] [address] [facility] [address] [id number] [place] [id number] Nov, Encounter for dental examination Z01.20 [facility] [address] [facility] [address] [id number] SPRINGS[place] [id number] Nov, Dental examination Z01.20 [facility] [id number][place] [id number] Sep, Diabetes type 2, uncontrolled E11.65 [facility] [address] [facility] [address] [id number] SPRINGS[place] [id number] Sep, Encounter for dental examination Z01.20 and Dental caries, unspecified K02.9 [facility] [id number] [place] [address] [id number] Sep, Bipolar 2 disorder F31.81 [facility] [place] [id number] [place] [address] [id number] Aug, [facility] [place] [id number] [place] [address] [id number] Aug, Follow up V67.9 [facility] [address] [address] 2413 Jul, Bipolar disorder, unspecified 296.80 [facility] [id number], [place] [id number] Jul, Thyroid enlarged 240.9 and Bipolar disorder, unspecified 296.80 [facility] [id number], [place] [address] Jun, Diabetes mellitus type 2, uncontrolled 250.02 ; Bipolar disorder, unspecified 296.80 and Rash 782.1 [facility] [id number], [place] [id number] Jun, [facility] [id number] [place] [address] [id number] May, Urinary tract infection 599.0 [facility] [address]00565100[place] [address] May, Urinary tract infection 599.0 [facility] [place] [id number] [place] [address] [id number] May, [facility] [address] [id number][place] [id number] May, Diabetes mellitus type 2, uncontrolled 250.02 and Pica in adults 307.52 [facility] [id number] [place] [address] [id number] Apr, Follow up V67.9 and Diabetes mellitus type 2, uncontrolled 250.02 [facility] [id number] [place] [address] [id number] Apr, [facility] [id number] [place] [address] 81386- 2546 Apr, [facility] [id number] [place] [address] [id number] Apr, Hyperlipidemia 272.4 [facility] [id number] [place] [address] [id number] March, Diabetes type 2, uncontrolled 250.02 [facility] [id number] [place] [address] [id number] March, Diabetes mellitus type 2, uncontrolled 250.02 [facility] [id number] [place] [address] [id number] March, Diabetes type 2, uncontrolled 250.02 [facility] [id number] [place] [address] [id number] March, [facility] [id number], [place] [id number] March, [facility] [id number] [place] [address] [id number] Feb, [facility] [id number] [place] [address] 46300- 9776 Feb, [facility] [id number] [place] [address] 07715- 2546 Feb, [facility] [id number], [place] [id number] Jan, [facility] [id number] [place] [address] 70207- 7456 Jan, [facility] [address] [facility] [id number] [address]- 8338 Jan, [facility] [address] [facility] [id number][place] [id number] Jan, [facility] [place] [id number], [place] [address]- 9524 Jan, [facility] [place] [address]100[place], [place] [address]- 3155 Jan, [facility] [address] [facility] [id number], [place] [id number] Jan, [facility] [place] [address], [place] [address]- 3555 Jan, [facility] [place] [address]00565100[place], [place] [address]- 6837 Dec, [facility] [id number], [place] [id number] Dec, [facility] [address]00565100[place], [place] [address]- 9506 Dec, [facility] [id number], [place] [id number] Dec, [facility] [place] [facility] [address], [place] [address]- 3816 Dec, [facility] [address] [id number], [place] [id number] Dec, [facility] [place] [facility] [address], [place] [address]- 1626 Dec, [facility] [place] [facility] [address], [place] [address]- 0390 Dec, [facility] [address] [facility] [id number], [place] [id number] Dec, [facility] [address] [id number], [place] [id number] Dec, [facility] [place] [facility] [address], [place] [address]- 8480 Dec, [facility] [address] [facility] [id number], [place] [address]- 8444 Nov, [facility] [address] [facility] [id number] [address]- 7327 Oct, [facility] [address] [facility] [id number], [place] [address]- 6633 Oct, [facility] [address] [facility] [id number], [place] [address] Sep, [facility] [address] [facility] [id number], [place] [address]- 8037 Sep, [facility] [id number] [place] [address] [id number] Sep, [facility] [address], [place] [address]- 4334 Sep, [facility] [id number], [place] [id number] Aug, [facility] [place] [facility] [id number], [place] [address]- 6430 Aug, [facility] [id number], [place] [id number] Aug, [facility] [place] [facility] [id number], [place] [address]- 4856 Aug, [facility] [address] [facility] [id number][place] [address]- 1483 Jul, [facility] [address] [facility] [id number], [place] [address] 2541 Jul, [facility] [address] [facility] [id number], [place] [id number] Jul, [facility] [facility] [address] [facility] [id number], [place] [address]- 2546 Jul, [facility] [address] [id number], [place] [id number] Jun, [facility] [address] [facility] [id number] [place] [id number] Jun, [facility] [place] [facility] [address] [facility] [id number] [place] [address]- 1645 Jun, [facility] [place] [facility] [address] [facility] [id number] [place] [address]- 3839 Jun, [facility] [address] [facility] [id number] [place] [id number] Jun, [facility] [place] [facility] [address] [facility] [id number] [place] [address]- 5032 Jun, [facility] [address] [facility] [id number] [place] [id number] May, [facility] [place] [facility] [address] [facility] [id number] [place] [address]- 4433 May, [facility] [place] [facility] [address]- 8855 Apr, [facility] [place] [facility] [address] [facility] [id number] [place] [address]- 0125 Apr, [facility] [address] [facility] [id number] [place] [id number] Apr, [facility] [place] [facility] [address] [address]- 9870 Apr, [facility] [place] [facility] [address] [facility] [id number] [place] [address]- 9375 Apr, [facility] [address] [facility] [id number], [place] [id number] March, [facility] [place] [facility] [address] [facility] [id number] [place] [address]- 8340 March, [facility] [place] [facility] [address] [facility] [id number] [place] [address]- 3877 March, [facility] [address] [facility] [id number] [place] [id number] March, [facility] [place] [facility] [address] [facility] [id number], [place] [address]- 9936 March, [facility] [address] [facility] [id number] [place] [id number] March, [facility] [place] [facility] [address] [facility] [id number], [place] [address]- 6056 March, [facility] [address] [facility] [id number] [place] [id number] Feb, [facility] [place] [facility] [address] [facility] [id number], [place] [address]- 5365 Feb, [facility] [place] [facility] [address] [facility] [id number] [address]- 7428 Jan, [facility] [address] [facility] [id number], [place] [id number] Jan, [facility] [place] [facility] [address]00565100[place], [place] [address]- 7609 Jan, [facility] [place] [facility] [address] [id number], [place] [address]- 3722 Jan, [facility] [address] [facility] [id number] [place] [id number] Jan, [facility] [address] [facility] [id number], [place] [id number] Dec, [facility] [place] [facility] [address] [id number], [place] [address]- 8580 Dec, [facility] [place] [facility] [address] [id number], [place] [address]- 6733 Dec, [facility] [address] [facility] [id number], [place] [id number] Dec, [facility] [facility] [address] [facility] [id number], [place] [address]- 5816 Dec, [facility] [address] [facility] [id number], [place] [id number] Dec, [facility] [place] [facility] [address] [id number], [place] [address]- 3056 Dec, [facility] [place] [facility] [address] [id number], [place] [address]- 5786 Dec, [facility] [address] [facility] [id number] [place] [id number] Dec, [facility] [address] [facility] [id number] [place] [id number] Nov, [facility] [address] [facility] [id number] [place] [address]- 1406 Nov, [facility] [place] [facility] [address] [id number] [place] [address]- 2546 Nov, [facility] [address] [id number] [place] [id number] Nov, [facility] [address] [facility] [id number] [place] [id number] Oct, [facility] [address] [facility] [id number] [address] Oct, [facility] [address] [facility] [id number] [place] [id number] Oct, [facility] [place] [facility] [address] [facility] [id number], [place] [address] Oct, [facility] [place] [facility] [address] [facility] [id number][place] [address] Oct, [facility] [place] [facility] [address] [facility] [id number][place] [address] Oct, [facility] [address] [facility] [id number][place] [id number] Oct, [facility] [place] [facility] [address] [facility] [id number] [place] [address] Oct, [facility] [place] [facility] [address] [facility] [id number], [place] [address] Sep, [facility] [place] [facility] [address] [facility] [id number], [place] [address] Sep, [facility] [address] [facility] [id number][place] [id number] Sep, [facility] [place] [facility] [address] [facility] [id number], [place] [address] Sep, [facility] [place] [facility] [address] [facility] [id number][place] [address] Sep, [facility] [address] [facility] [id number][place] [id number] Sep, [facility] [address] [facility] [id number], [place] [id number] Aug, [facility] [place] [facility] [address] [facility] [id number], [place] [address] Aug, [facility] [place] [facility] [address] [facility] [id number], [place] [address] Aug, [facility] [address] [facility] [id number][place] [id number] Aug, [facility] [address] [facility] [id number], [place] [id number] Aug, [facility] [place] [facility] [address] [facility] [id number][place] [address] Aug, [facility] [place] [facility] [address] [facility] [id number], [place] [address] Aug, [facility] [place] [facility] [id number], [place] [address] Aug, [facility] [address] [facility] [id number][place] [id number] Jul, [facility] [place] [facility] [address] [facility] [id number], [place] [address] Jul, [facility] [place] [facility] [address] [facility] [id number], [place] [address] Jul, [facility] [address] [facility] [id number], [place] [id number] Jul, [facility] [address] [facility] [id number][place] [id number] Jul, [facility] [place] [facility] [address] [facility] [id number], [place] [address] May, [facility] [address] [facility] [id number], [place] [address] Apr, [facility] [address] [id number] [place] [id number] Apr, [facility] [address] [id number] [place] [id number] Apr, [facility] [address] [facility] [id number] [address] March, [facility] [place] [address] [id number] [place] [id number] March, [facility] [place] [address] [id number] [place] [id number] March, [facility] [place] [address] [id number] [place] [id number] March, [facility] [place] [address] [id number] [place] [id number] March, [facility] [place] [address] [id number] [place] [id number] March, [facility] [address] [address] March, [facility] [address] [facility] [id number], [place] [address] March, [facility] [address], [place] [address] Feb, [facility] [place] [address] [id number] [place] [id number] Feb, [facility] [place] [address] [id number] [place] [id number] Feb, [facility] [place] [address] [id number] [place] [id number] Feb, [facility] [place] [facility] [address] [facility] [id number] [place] [address] Feb, [facility] [place] [address] [id number] [place] [id number] Feb, [facility] [place] [address] [id number] [place] [id number] Jan, [facility] [place] [address] [id number] [place] [id number] Jan, [facility] [place] [address] [id number] [place] [id number] Dec, [facility] [place] [address] [id number] [place] [id number] Dec, [facility] [address] [facility] [id number], [place] [address] Dec, [facility] [place] [address] [id number] [place] [id number] Dec, [facility] [place] [address] [id number] [place] [id number] Dec, [facility] [place] [address] [id number] [place] [id number] Dec, [facility] [place] [address] [id number] [place] [id number] Dec, [facility] [address] [facility] [id number], [place] [address] Nov, [facility] [place] [address] [id number] [place] [id number] Nov, [facility] [place] [address] [id number] [place] [id number] Nov, [facility] [place] [address] [id number] [place] [id number] Nov, [facility] [place] [address] [id number] [place] [id number] Nov, [facility] [address] [facility] [id number][place] [address] Oct, [facility] [place] [address] [id number] [place] [id number] Oct, [facility] [place] [address] [id number] [place] [id number] Oct, [facility] [place] [address] [id number][place] [id number] Oct, [facility] [place] [facility] [address] [facility] [id number], [place]330[place] [address] Oct, [facility] [place] [facility] [address] [facility] [id number], [place] [address] Oct, [facility] [place] [facility] [address] [facility] [id number], [place] [address] Oct, [facility] [place] [address] [facility] [id number][place] [id number] Sep, [facility] [place] [facility] [address] [facility] [id number] [place] [address] Sep, [facility] [place] [facility] [address] [facility] [id number], [place] [address] Sep, [facility] [place] [address] [facility] [id number], [place] [id number] Sep, [facility] [place] [address] [facility] [id number], [place] [id number] Sep, [facility] [place] [address] [facility] [id number], [place] [id number] Sep, [facility] [place] [facility] [address] [facility] [id number], [place] [address] Sep, [facility] [place] [facility] [address] [facility] [id number], [place] [address] Sep, [facility] [place] [facility] [address] [facility] [id number], [place]1211[place] [address] Sep, [facility] [place] [address] [facility] [id number], [place] [id number] Aug, [facility] [place] [facility] [address] [facility] [id number], [place] [address] Aug, [facility] [place] [address] [facility] [id number], [place] [address]74 Aug, [facility] [place] [facility] [address] [facility] [id number], [place] [address] Aug, [facility] [place] [facility] [address] [id number], [place] [address] Aug, [facility] [place] [address] [id number] [place] [id number] Aug, [facility] [place] [address] [id number] [place] [id number] Aug, [facility] [address] [id number], [place] [address] Aug, [facility] [place] [address] [id number] [place] [id number] Aug, [facility] [place] [address] [id number] [place] [id number] Jul, [facility] [place] [address] [id number] [place] [id number] Jun, [facility] [place] [address] [id number] [place] [id number] May, [facility] [place] [address] [id number] [place] [id number] May, [facility] [place] [address] [id number] [place] [id number] May, [facility] [place] [address] [id number] [place] [id number] May, [facility] [place] [address] [id number] [place] [id number] May, [facility] [place] [address] [id number] [place] [id number] May, [facility] [place] [address] [id number] [place] [id number] May, [facility] [place] [address] [id number] [place] [id number] Apr, [facility] [place] [address] [id number] [place] [id number] Apr, [facility] [place] [address] [id number] [place] [id number] Apr, [facility] [place] [address] [id number] [place] [id number] Apr, [facility] [place] [address] [id number] [place] [id number] Apr, [facility] [place] [address] [id number] [place] [id number] Apr, [facility] [place] [address] [id number] [place] [id number] March, [facility] [place] [address] [id number] [place] [id number] March, [facility] [place] [address] [id number] [place] [id number] Feb, [facility] [place] [address] [id number] [place] [id number] Feb, [facility] [place] [address] [id number] [place] [id number] Feb, [facility] [place] [address] [id number] [place] [id number] Jan, [facility] [place] [address] [id number] [place] [id number] Jan, [facility] [place] [address] [id number] [place] [id number] Jan, [facility] [place] [address] [id number] [place] [id number] Jan, [facility] [place] [address] [id number] [place] [id number] Dec, [facility] [address] [facility] [id number], [place] 82[place]2544- [address] Dec, [facility] [place] [address] [id number] [place] [id number] Dec, [facility] [place] [address] [id number] [place] [id number] Nov, [facility] [place] [address] [id number] [place] [id number] Nov, [facility] [place] [address] [id number] [place] [id number] Nov, [facility] [address] [address]- [address] Oct, [facility] [place] [facility] [address] [id number] [place] [address]- [address] 15 Oct, 2011 [facility] [place] [facility] [address] [id number] [place] [address]- [address] Oct, [facility] [place] [facility] [address] [id number] [place] [address]- [address] Aug, [facility] [place] [facility] [address] [id number] [place] [address]- [address] Aug, [facility] [place] [facility] [address] [id number] [place] [address]- [address] Aug, [facility] [place] [facility] [address] [id number] [place] [address]- 47[address] March, [facility] [place] [facility] [address] [id number] [place] [address]- 2837 Oct, [facility] [place] [facility] [address] [id number] [place] [address]- [address]198 Oct, [facility] [place] [facility] [address] [id number] [place] [address]- [address]97 Sep, [facility] [place] [facility] [address] [id number] [place] [address]- 28[address] Sep, [facility] [place] [facility] [address] [id number] [place] [address]- [address]234 Sep, [facility] [place] [facility] [address] [id number] [place] [address]- 5118 Aug, [facility] [place] [facility] [address] [id number] [place] [address]- [address]290 Aug, [facility] [place] [facility] [address] [id number] [place] [address]- [address]246 Jun, [facility] [place] [facility] [address] [id number] [place] [address]- [address]656 May, [facility] [place] [facility] [address] [id number] [place] [address]- 9987 Jan, [facility] [address], [place] [address] Nov, [facility] [id number], [place] [address]- [address] Oct, [facility] [id number], [place] [address]- [address] Sep, [facility] [address] [facility] [id number], [place] [address]- [address] Sep, [facility] [address], [place] [address]- [address] Sep, [facility] [id number] [place] [address]- [address] Sep, [facility] [address], [place] [address]- [address] Sep, [facility] [address], [place] [address]- [address] Aug, [facility] [address], [place] [address]- 58[address] Aug, [facility] [address], [place] [address]- [address] Jul, [facility] [id number], [place] [address]- [address] Jun, IMMUNIZATIONS No Known Immunizations SOCIAL HISTORY Never Assessed REASON FOR VISIT Medication question PLAN OF CARE VITAL SIGNS MEDICATIONS Medication Instructions Dosage Frequency Start Date End Date Duration Status ProAir HFA 108 (90 Base) MCG/ACT Inhalation every 4-6 hours as needed 2 puffs Feb, 30 days Active RESULTS No Results PROCEDURES No [...] 08/2016 Hospitalization History chest pain ED visit [facility], pt scheduled for heart cath on May Hospitalization History [place] 2012 Hospitalization History Chest pain-[facility] 12/22/16
--- OUTSIDE RECORDS SUMMARY | 2018-11-01 18:54 | XMS REPORT ---
Author Author OSWALDO ALTAMIRANO Organization [facility] Address [address] [place] [address] Care Team Providers Care Strategic Planning Manager Name Role Phone OSWALDO ALTAMIRANO Unavailable PROBLEMS Type Condition ICD9-CM Code KCK52-FW Code Onset Dates Condition Status SNOMED Code Problem Other seasonal allergic rhinitis J30.2 Active 228555654 Problem Polyneuropathy associated with underlying disease G63 Active 782013456 Problem Other chronic pain G89.29 Active 26504959 Problem Vitamin D deficiency E55.9 Active 00564442 Problem Recurrent major depressive disorder, in partial remission F33.41 Active 31254161 Problem 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 Active 265330014 Problem Syncope, unspecified syncope type R55 Active 931524488 Problem Stage 2 chronic kidney disease N18.2 Active 607839988 Problem Type 2 diabetes mellitus with diabetic polyneuropathy E11.42 Active 04833609 Problem Episodic mood disorder F39 Active 71742245 Problem Dyslipidemia E78.5 Active 588647878 Problem Serum creatinine raised R79.89 Active 110764675 Problem Lumbago with sciatica, left side M54.42 Active 398346575 Problem Generalized anxiety disorder F41.1 Active 30717637 Problem Lumbago with sciatica, right side M54.41 Active 027008333 ALLERGIES No Information ENCOUNTERS Encounter Location Date Diagnosis [facility] [address] [facility] [id number] [address] Jun, [facility] [address] [id number] [address] 7[address] May, [facility] [address] [address] March, [facility] [address] [id number] [address] March, Type 2 diabetes mellitus with diabetic [...] H60.502 and Non-adherence to medical treatment Z91.[address] [facility] [id number] [id number] Feb, Dental examination Z01.20 [facility] [id number] [place] [address] Feb, Labile hypertension R09.89 ; Syncope, unspecified syncope type R55 ; Chest pain, unspecified type R07.9 and Dyslipidemia E78.5 [place] [id number] [place] [address] 92812- 3231 Feb, [facility] [address] [address] Jan, [address] [id number][place] [id number] Jan, Dental examination Z01.20 [facility] [id number] [place] [address] 79966- 1700 Jan, Acute non-recurrent maxillary sinusitis J01.00 and Dyslipidemia E78.[address] [id number][place] [address] Jan, Dental examination Z01.20 and Dental caries K02.[address] [id number][place] [address] Jan, [address] [id number][place] [address] Dec, Dental examination Z01.20 [facility] [id number] [place] [address]648 -[address]14 Dec, Seasonal allergic rhinitis, unspecified trigger J30.2 [place] [id number] [place] [address] 76984- 9365 Nov, [place] [address] [address]- [address] Nov, Type 2 diabetes mellitus with diabetic polyneuropathy E11.42 ; Dyslipidemia E78.5 ; Lumbago with sciatica, right side M54.41 ; Lumbago with sciatica, left side M54.42 ; half-way current use of insulin Z79.4 ; Polyneuropathy associated with underlying disease G63 ; Stage 2 chronic kidney disease N18.2 and Syncope, unspecified syncope type R55 [place] [address] [address]- [address]757 Oct, Type 2 diabetes mellitus with diabetic polyneuropathy E11.42 ; Acute otitis externa of left ear, unspecified type H60.502 ; Overweight (BMI 25.0-29.9) E66.3 ; Dyslipidemia E78.5 and Polyneuropathy associated with underlying disease G63 [place] [id number] [place] [address] 88279- 5021 Sep, [place] [address] 8[address]68- 3327 Aug, Abnormal mammogram R92.8 [place] [id number] [place] [address] 19741- 6079 Aug, Type 2 diabetes mellitus with diabetic polyneuropathy E11.42 [place] [id number] [place] [address] 09841- 7225 Aug, [place] [id number] [place] [address] 04012- 1741 Aug, Type 2 diabetes mellitus with diabetic polyneuropathy E11.42 ; Syncope, unspecified syncope type R55 ; Other chronic pain G89.29 and Encounter for immunization Z23 [place] [id number] [place] [address] 18395- 9470 Aug, Type 2 diabetes mellitus with diabetic polyneuropathy E11.42 [place] [id number] [place] [address] 00270- 3384 Jul, Type 2 diabetes mellitus with diabetic polyneuropathy E11.42 and Serum creatinine raised R79.89 [facility] [id number] [place] [address] 57606- 5124 Jul, Type 2 diabetes mellitus with diabetic polyneuropathy E11.42 and Serum creatinine raised R79.89 [place] [id number] [place] [address] 93377- 1975 May, [place] [id number] [place] [address] 06525- 1463 May, [place] [id number] [place] [address] 83324- 7714 May, Facial pain R51 ; Head injury, initial encounter S09.90XA ; Neck pain M54.2 and Fall, initial encounter W19.XXXA [place] [id number] [place] [address] 82233- 0731 May, Type 2 diabetes mellitus with diabetic polyneuropathy E11.42 [place] [id number] [place] [address] 32110- 0111 May, [place] [id number] [place] [address] 40170- 0443 May, Type 2 diabetes mellitus with diabetic polyneuropathy E11.42 [place] [id number] [place] [address] 83284- 4033 May, Dyslipidemia E78.5 ; half-way current use of insulin Z79.4 ; Type 2 diabetes mellitus with diabetic polyneuropathy E11.42 ; Generalized anxiety disorder F41.1 and Other seasonal allergic rhinitis J30.2 [place] [id number] [place] [address] 34892- 4163 Apr, Type 2 diabetes mellitus with diabetic polyneuropathy E11.42 [place] [id number] [place] [address] 34929- 7863 March, [place] [address] [place] [address] 47425- 0541 March, Abnormal mammogram R92.8 [place] [id number] [place] [address] 27643- 2282 Feb, Abnormal mammogram R92.8 [place] [id number] [place] [address] 51372- 0723 Feb, Diabetes type 2, uncontrolled E11.65 [place] [id number] [place] [address] 91720- 2006 Feb, Screening for breast cancer Z12.39 [place] [id number] [place] [address] 09413- 9623 Jan, Screening for breast cancer Z12.39 [place] [id number] [place] [address] 23898- 6218 Jan, Type 2 diabetes mellitus with diabetic polyneuropathy E11.42 ; 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 ; Other viral agents as the cause of diseases classified elsewhere B97.89 and Acute upper respiratory infection, unspecified J06.9 [place] [id number] [place] [address] 64120- 0290 Jan, [place] [id number] [place] [address] 58301- 5829 Dec, Diabetes type 2, uncontrolled E11.65 ; Dyslipidemia E78.5 ; Generalized anxiety disorder F41.1 ; Depression, unspecified depression type F32.9 ; half-way current use of insulin Z79.4 and Polyneuropathy associated with underlying disease G63 [place] [id number] [place] [address] 91503- 1425 16 Dec, 2016 [place] [id number] [place] [address] 46251- 8910 Dec, [place] [id number] [place] [address] 04718- 6129 Dec, [place] [id number] [place] [address] 72457- 8202 Dec, [place] [address] [address]- 1913 Oct, Well woman exam Z01.419 ; Screening for breast cancer Z12.39 ; 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 ; Type 2 diabetes mellitus without complications E11.9 and Encounter for immunization Z23 [place] [address] 93168- 1465 Sep, [place] [address] 36264- 9410 Sep, Diabetes type 2, uncontrolled E11.65 ; Dyslipidemia E78.5 and Depression, unspecified depression type F32.[address] [address]- 3606 Aug, Diabetes type 2, uncontrolled E11.65 ; Encounter for immunization Z23 ; Nasal congestion R09.81 and Ear pressure, bilateral H93.8X3 [address] 15490- 4557 Jul, Eustachian tube dysfunction, left H69.82 [place] [address] 21545- 4659 Jun, [place] [address] 46134- 7388 Jun, Hospital discharge follow-up Z09 ; Syncope, unspecified syncope type R55 and Acute suppurative otitis media of left ear without spontaneous rupture of tympanic membrane, recurrence not specified H66.002 [place] [address] 47821- 9432 May, [place] [address] 47634- 9587 May, [place] [address] 04980- 0638 May, [facility] [address] [address]- 9391 May, Diabetes type 2, uncontrolled E11.65 ; [...] disturbance G47.9 and Generalized anxiety disorder F41.1 [facility] [address] [place] [address] 25456- 4642 March, [facility] [id number] [place] [address] [id number] March, Syncope, unspecified syncope type R55 and Depression, unspecified depression type F32.9 [facility] [id number] [place] [address] [id number] March, Orthostatic hypotension I95.1 [facility] [id number] [place] [address] [id number] March, [place] [address] [place] [address] 35196059- 9994 March, [facility] [id number], [place] [id number] Feb, [address] [id number][place] [address] Feb, Dental examination Z01.20 [facility] [id number] [place] [address] [id number] Jan, [facility] [id number] [place] [address] [id number] Jan, [facility] [id number] [place] [address] [id number] Dec, Diabetes type 2, uncontrolled E11.65 [facility] [id number] [place] [address] [id number] Nov, [facility] [address] [facility] [address] [id number][place] [id number] Nov, Encounter for dental examination Z01.20 [facility] [address] [facility] [address] [id number], [place] [id number] Nov, Dental examination Z01.20 [facility] [id number], [place] [address] Sep, Diabetes type 2, uncontrolled E11.65 [facility] [address] [facility] [address] [id number], [place] [id number] Sep, Encounter for dental examination Z01.20 and Dental caries, unspecified K02.9 [facility] [id number] [place] [address] [id number] Sep, Bipolar 2 disorder F31.81 [facility] [place] [id number] [place] [address] [id number] Aug, [facility] [place] [id number] [place] [address] [id number] Aug, Follow up V67.9 [facility] [address] [address]238 Jul, Bipolar disorder, unspecified 296.80 [facility] [id number], [place] [address] Jul, Thyroid enlarged 240.9 and Bipolar disorder, unspecified 296.80 [facility] [id number], [place] [id number] Jun, Diabetes mellitus type 2, uncontrolled 250.02 ; Bipolar disorder, unspecified 296.80 and Rash 782.1 [facility] [id number], [place] [id number] Jun, [facility] [id number] [place] [address] [id number] May, Urinary tract infection 599.0 [facility] [address]00565[address], [place] [address] May, Urinary tract infection 599.0 [facility] [address] [id number] [place] [address] [id number] May, [facility] [address] [id number], [place] [id number] May, Diabetes mellitus type 2, uncontrolled 250.02 and Pica in adults 307.52 [facility] [id number] [place] [address] [id number] Apr, Follow up V67.9 and Diabetes mellitus type 2, uncontrolled 250.02 [facility] [id number] [place] [address] [id number] Apr, [facility] [id number] [place] [address] 22470- 2546 Apr, [facility] [id number] [place] [address] [id number] Apr, Hyperlipidemia 272.4 [facility] [id number] [place] [address] [id number] March, Diabetes type 2, uncontrolled 250.02 [facility] [id number] [place] [address] [id number] March, Diabetes mellitus type 2, uncontrolled 250.02 [facility] [id number] [place] [address] [id number] March, Diabetes type 2, uncontrolled 250.02 [facility] [id number] [place] [address] [id number] March, [facility] [id number], [place] [id number] March, [facility] [id number] [place] [address] [id number] Feb, [facility] [address] [place] [address] 56933- 4636 Feb, [facility] [id number] [place] [address] 47429- 2546 Feb, [facility] [id number], [place] [id number] Jan, [facility] [id number] [place] [address] 40392- 5126 Jan, [facility] [place] [facility] [address] [facility] [id number] [place] [address]- 3690 Jan, [facility] [address] [facility] [id number], [place] [id number] Jan, [facility] [place] [facility] [address] [id number] [address]- 0069 Jan, [facility] [place] [facility] [address]100[place] [address]- 8679 Jan, [facility] [address] [facility] [id number], [place] [id number] Jan, [facility] [place] [facility] [address]100[place] [address]- 5357 Jan, [facility] [place] [facility] [address]100[place] [address]- 0178 Dec, [facility] [id number], [place] [id number] Dec, [facility] [place] [facility] [address] [address]- 6700 Dec, [facility] [id number], [place] [address] Dec, [facility] [place] [facility] [address] [address]- 1586 Dec, [facility] [address] [id number], [place] [id number] Dec, [facility] [place] [facility] [address] [address]- 4416 Dec, [facility] [place] [facility] [address] [address]- 5579 Dec, [facility] [address] [facility] [id number], [place] 499448475 Dec, [facility] [address] [id number], [place] [id number] Dec, [facility] [place] [facility] [address] [address]- 0006 Dec, [facility] [address] [facility] [id number] [place] [address]- 5329 Nov, [facility] [place] [facility] [address] [facility] [id number] [place] [address]- 1952 Oct, [facility] [place] [facility] [address] [facility] [id number] [place] [address]- 5593 Oct, [facility] [address] [facility] [id number], [place] [id number] Sep, [facility] [place] [facility] [address] [facility] [id number] [place] [address]- 1771 Sep, [facility] [id number] [place] [address] [id number] Sep, [facility] [place] [facility] [address] [address]- 6924 Sep, [facility] [id number], [place] 3980[address]884 Aug, [facility] [place] [facility] [address] [id number] [address]- 5875 Aug, [facility] [id number], [place] [id number] Aug, [facility] [place] [facility] [id number] [address]- 7826 Aug, [facility] [place] [facility] [address] [facility] [id number] [place] [address]- 0770 Jul, [facility] [place] [facility] [address] [facility] [id number] [place] [address] 2548 Jul, [facility] [address] [facility] [id number], [place] [id number] Jul, [facility] [place] [facility] [address] [facility] [id number] [place] [address]- 2546 Jul, [facility] [address] [id number], [place] [id number] Jun, [facility] [address] [facility] [id number] [place] [id number] Jun, [facility] [place] [facility] [address] [facility] [id number] [place] [address]- 6457 Jun, [facility] [place] [facility] [address] [facility] [id number] [place] [address]- 4595 Jun, [facility] [address] [facility] [id number] [place] [id number] Jun, [facility] [place] [facility] [address] [facility] [id number] [place] [address]- 4551 Jun, [facility] [address] [facility] [id number] [place] [id number] May, [facility] [place] [facility] [address] [facility] [id number] [place] [address]- 2721 May, [facility] [place] [facility] [address] 1782 Apr, [facility] [place] [facility] [address] [facility] [id number] [place] [address]- 9883 Apr, [facility] [address] [facility] [id number] [place] [id number] Apr, [facility] [place] [facility] [address]65100[place] 8316[place]- 5604 Apr, [facility] [place] [facility] [address] [facility] [id number] [place] [address]- 1362 Apr, [facility] [address] [facility] [id number], [place] [id number] March, [facility] [place] [facility] [address] [facility] [id number] [place] [address]- 6021 March, [facility] [place] [facility] [address] [facility] [id number] [place] [address]- 9858 March, [facility] [address] [facility] [id number] [place] [id number] March, [facility] [place] [facility] [address] [facility] [id number] [place] [address]- 9616 March, [facility] [address] [facility] [id number] [place] [address] March, [facility] [place] [facility] [address] [facility] [id number] [address]- 5936 March, [facility] [address] [facility] [id number] [place] [id number] Feb, [facility] [place] [facility] [address] [facility] [id number] [place] [address]- 5297 Feb, [facility] [place] [facility] [address] [facility] [id number] [place] [address]- 4344 Jan, [facility] [address] [facility] [id number], [place] 8[address]14915 Jan, [facility] [place] [facility] [address]100[place] [address]- 9933 Jan, [facility] [place] [facility] [address] [id number] [address]- 8896 Jan, [facility] [address] [facility] [id number] [place] [id number] Jan, [facility] [address] [facility] [id number], [place] [id number] Dec, [facility] [place] [facility] [address] [id number] [address]- 8258 Dec, [facility] [place] [facility] [address] [id number] [address]- 1345 Dec, [facility] [address] [facility] [id number], [place] [id number] Dec, [facility] [place] [facility] [address] [facility] [id number] [place] [address]- 5726 Dec, [facility] [address] [facility] [id number], [place] [id number] Dec, [facility] [place] [facility] [address] [id number] [address] Dec, [facility] [place] [facility] [address] [id number] [place] [address] Dec, [facility] [address] [facility] [id number] [place] [id number] Dec, [facility] [address] [facility] [id number] [place] [id number] Nov, [facility] [address] [facility] [id number] [place] [address] Nov, [facility] [place] [facility] [address] [id number] [place] [address] Nov, [facility] [address] [id number] [place] [id number] Nov, [facility] [address] [facility] [id number] [place] [id number] Oct, [facility] [address] [facility] [id number] [place] [address] Oct, [facility] [address] [facility] [id number] [place] [id number] Oct, [facility] [place] [facility] [address] [facility] [id number] [place] [address] Oct, [facility] [place] [facility] [address] [facility] [id number] [place] [address] Oct, [facility] [place] [facility] [address] [facility] [id number] [place] [address] Oct, [facility] [address] [facility] [id number][place] [id number] Oct, [facility] [place] [facility] [address] [facility] [id number] [place] [address] Oct, [facility] [place] [facility] [address] [facility] [id number] [place] [address] Sep, [facility] [place] [facility] [address] [facility] [id number] [place] [address] Sep, [facility] [address] [facility] [id number][place] [id number] Sep, [facility] [place] [facility] [address] [facility] [id number] [place] [address] Sep, [facility] [place] [facility] [address] [facility] [id number] [place] [address] Sep, [facility] [address] [facility] [id number][place] [id number] Sep, [facility] [address] [facility] [id number][place] [id number] Aug, [facility] [place] [facility] [address] [facility] [id number] [place] [address] Aug, [facility] [place] [facility] [address] [facility] [id number] [place] [address] Aug, [facility] [address] [facility] [id number], [place] [id number] Aug, [facility] [address] [facility] [id number][place] [id number] Aug, [facility] [place] [facility] [address] [facility] [id number] [place] Aug, [facility] [place] [facility] [address] [facility] [id number] [place] [address] Aug, [facility] [place] [facility] [id number] [address] Aug, [facility] [address] [facility] [id number][place] [id number] Jul, [facility] [place] [facility] [address] [facility] [id number] [place] [address] Jul, [facility] [place] [facility] [address] [facility] [id number] [place] [address] Jul, [facility] [place] [address] [facility] [id number], [place] [id number] Jul, [facility] [place] [address] [facility] [id number][place] [id number] Jul, [facility] [place] [facility] [address] [facility] [id number] [place] [address] May, [facility] [address] [facility] [id number] [place] [address] Apr, [facility] [place] [address] [id number] [place] [id number] Apr, [facility] [place] [address] [id number] [place] [id number] Apr, [facility] [address] [facility] [id number] [place] [address] March, [facility] [place] [address] [id number] [place] [id number] March, [facility] [place] [address] [id number] [place] [id number] March, [facility] [place] [address] [id number] [place] [id number] March, [facility] [place] [address] [id number] [place] [id number] March, [facility] [place] [address] [id number] [place] [id number] March, [facility] [address] [address] March, [facility] [address] [facility] [id number] [place] [address] March, [facility] [address] [address] Feb, [facility] [place] [address] [id number] [place] [id number] Feb, [facility] [place] [address] [id number] [place] [phone] Feb, [facility] [place] [address] [id number] [place] [id number] Feb, [facility] [place] [facility] [address] [facility] [id number] [place] [address] Feb, [facility] [place] [address] [id number] [place] [id number] Feb, [facility] [place] [address] [id number] [place] [id number] Jan, [facility] [place] [address] [id number] [place] [phone] Jan, [facility] [place] [address] [id number] [place] [id number] Dec, [facility] [place] [address] [id number] [place] [id number] Dec, [facility] [address] [facility] [id number] [place] [address] Dec, [facility] [place] [address] [id number] [place] [id number] Dec, [facility] [place] [address] [id number] [place] [id number] Dec, [facility] [place] [address] [id number] [place] [phone] Dec, [facility] [place] [address] [id number] [place] [phone] Dec, [facility] [address] [facility] [id number] [place] [address] Nov, [facility] [place] [address] [id number] [place] [id number] Nov, [facility] [place] [address] [id number] [place] [id number] Nov, [facility] [place] [address] [id number] [place] [id number] Nov, [facility] [place] [address] [id number] [place] [id number] Nov, [facility] [address] [facility] [id number] [place] [address] Oct, [facility] [place] [address] [id number] [place] [id number] Oct, [facility] [place] [address] [id number] [place] [id number] Oct, [facility] [place] [address] [id number][place] [id number] Oct, [facility] [place] [facility] [address] [facility] [id number] [place] Oct, [facility] [place] [facility] [address] [facility] [id number] [place] [address] Oct, [facility] [place] [facility] [address] [facility] [id number] [place] [address] Oct, [facility] [place] [address] [facility] [id number], [place] [id number] Sep, [facility] [place] [facility] [address] [facility] [id number] [place] [address] Sep, [facility] [place] [facility] [address] [facility] [id number] [place] [address] Sep, [facility] [place] [address] [facility] [id number], [place] [id number] Sep, [facility] [place] [address] [facility] [id number], [place] [id number] Sep, [facility] [place] [address] [facility] [id number], [place] [id number] Sep, [facility] [place] [facility] [address] [facility] [id number] [place] [address] Sep, [facility] [place] [facility] [address] [facility] [id number] [place] [address] Sep, [facility] [place] [facility] [address] [facility] [id number] [place] 328014- [address] Sep, [facility] [place] [address] [facility] [id number], [place] [id number] Aug, [facility] [place] [facility] [address] [facility] [id number] [place] [address] Aug, [facility] [place] [address] [facility] [id number], [place] [id number] Aug, [facility] [place] [facility] [address] [facility] [id number] [place] [address] Aug, [facility] [place] [facility] [address] [id number] [place] [address] Aug, [facility] [place] [address] [id number] [place] [id number] Aug, [facility] [place] [address] [id number] [place] [id number] Aug, [facility] [address] [id number] [place] [address] Aug, [facility] [place] [address] [id number] [place] [id number] Aug, [facility] [place] [address] [id number] [place] [id number] Jul, [facility] [place] [address] [id number] [place] [id number] Jun, [facility] [place] [address] [id number] [place] [id number] May, [facility] [place] [address] [id number] [place] [id number] May, [facility] [place] [address] [id number] [place] [id number] May, [facility] [place] [address] [id number] [place] [id number] May, [facility] [place] [address] [id number] [place] [id number] May, [facility] [place] [address] [id number] [place] [id number] May, [facility] [place] [address] [id number] [place] [id number] May, [facility] [place] [address] [id number] [place] [id number] Apr, [facility] [place] [address] [id number] [place] [id number] Apr, [facility] [place] [address] [id number] [place] [id number] Apr, [facility] [place] [address] [id number] [place] [id number] Apr, [facility] [place] [address] [id number] [place] [id number] Apr, [facility] [place] [address] [id number] [place] [id number] Apr, [facility] [place] [address] [id number] [place] [id number] March, [facility] [place] [address] [id number] [place] [id number] March, [facility] [place] [address] [id number] [place] [id number] Feb, [facility] [place] [address] [id number] [place] [id number] Feb, [facility] [place] [address] [id number] [place] [id number] Feb, [facility] [place] [address] [id number] [place] [id number] Jan, [facility] [place] [address] [id number] [place] [id number] Jan, [facility] [place] [address] [id number] [place] [id number] Jan, [facility] [place] [address] [id number] [place] [id number] Jan, [facility] [place] [address] [id number] [id number] Dec, [facility] [address] [facility] [id number] [place] 57[place]8949- [address] Dec, [facility] [place] [address] [id number] [place] [id number] Dec, [facility] [place] [address] [id number] [place] [id number] Nov, [facility] [place] [address] [id number] [place] [id number] Nov, [facility] [place] [address] [id number] [place] [id number] Nov, [facility] [id number] [address]- [address] Oct, [facility] [place] [facility] [address] [id number] [place] [address]- [address] 15 Oct, 2011 [facility] [place] [facility] [address] [id number] [place] [address]- [address] Oct, [facility] [place] [facility] [address] [id number] [place] [address]- [address] Aug, [facility] [place] [facility] [address] [id number] [place] [address]- 28[address] Aug, [facility] [place] [facility] [address] [id number] [place] [address]- 5263 Aug, [facility] [place] [facility] [address] [id number] [place] [address]- 49[address] March, [facility] [place] [facility] [address] [id number] [place] [address]- [address]776 Oct, [facility] [place] [facility] [address] [id number] [place] [address]- 6[address] Oct, [facility] [place] [facility] [address] [id number] [place] [address]- 7709 Sep, [facility] [place] [facility] [address] [id number] [place] [address]- 7683 Sep, [facility] [place] [facility] [address] [id number] [place] [address]- [address] Sep, [facility] [place] [facility] [address] [id number] [place] [address]- 7[address] Aug, [facility] [place] [facility] [address] [id number] [place] [address]- 1467 Aug, [facility] [place] [facility] [address] [id number] [place] [address]- 1356 Jun, [facility] [place] [facility] [address] [id number] [place] [address]- [address]16 May, [facility] [place] [facility] [address] [id number] [place] [address]- [address] Jan, [facility] [id number] [address] Nov, [facility] [id number] [address] Oct, [facility] [id number] [address] Sep, [facility] [id number] [place] [address]- 98[address] Sep, [facility] [id number] [place] [address]- 6127 Sep, [facility] [id number] [place] [address]- 5476 Sep, [facility] [id number] [place] [address]- 8[address] Sep, [facility] [id number] [place] [address]- 7094 Aug, [facility] [id number] [address] Aug, [facility] [address] [address] Jul, [facility] [address] [address] Jun, IMMUNIZATIONS No Known Immunizations SOCIAL HISTORY Never Assessed REASON FOR VISIT Refill request PLAN OF CARE VITAL SIGNS MEDICATIONS Medication Instructions Dosage Frequency Start Date End Date Duration Status Ventolin HFA cfc free 90 mcg/inh Inhalation as directed INHALE 2 PUFFS BY MOUTH EVERY 4 TO 6 HOURS NEEDED FOR COUGH, SHORTNESS OF BREATH, AND/OR WHEEZING. 30 Active RESULTS No Results PROCEDURES No Known [...] History chest pain ED visit [facility], pt scheduled for heart cath on May Hospitalization History [place] 2012 Hospitalization History Chest pain-[facility] 12/22/16
--- NOTE | 2018-11-01 18:55 | ED General ---
General Chief Complaint: General Problems/Pain Stated Complaint: VOMITTING Source of Information: Patient Exam Limitations: No Limitations History of Present Illness Date Seen by Provider: Nov 01, 2018 Time Seen by Provider: 18:54 Initial Comments To ER per private vehicle with reports of nausea vomiting and right-sided abdominal pain. She no longer has her gallbladder or appendix. She was seen here week ago with the onset of this and had a CT scan. States "they told me I had the beginnings of pancreatitis". She denies diarrhea. As a burning sensation in the right side of her abdomen. Timing/Duration: 1 Week Severity: Moderate Associated Systoms: Nausea/Vomiting Allergies and Home Medications Allergies Coded Allergies: codeine (Verified Allergy, Unknown, HEART PALPATATION, 02/04/15) Home Medications Albuterol 17 Gm Aerosol, 2 PUFF IH Q4H PRN for SHORTNESS OF BREATH, (Reported) Aspirin 81 Mg Tabec, 81 MG PO Q48H, (Reported) Atorvastatin Calcium 40 Mg Tablet, 40 MG PO HS, (Reported) Cetirizine HCl 10 Mg Tablet, 10 MG PO HS, (Reported) Duloxetine HCl 60 Mg Capsule.dr, 60 MG PO HS, (Reported) Fluticasone Propionate 16 Gm [place].susp, 1 SPRAY NA DAILY PRN for ALLERGIES, ( Reported) Hydrocodone Bit/Acetaminophen 1 Tab Tab, 1-2 EACH PO Q6H PRN for PAIN-MODERATE Prescribed by: GEOVANI LUTZ on 10/19/18 1357 Insulin Determir 1,000 Units/10 Ml Soln, 65 UNITS SQ DAILY, (Reported) TAKE IN AM Insulin Determir 1,000 Units/10 Ml Soln, 70 UNITS SQ HS, (Reported) TAKE AT BEDTIME Liraglutide 0.6 Mg/0.1 Ml Pen.injctr, 1.8 MG SQ HS, (Reported) Multivitamin 1 Each Tab.chew, 1 EACH PO HS, (Reported) Ondansetron HCl 4 Mg Tab, 4 MG PO Q4H PRN for NAUSEA/VOMITING-1ST LINE Prescribed by: GEOVANI LUTZ on 10/19/18 1357 Pantoprazole Sodium 40 Mg Tablet.dr, 40 MG PO DAILY Prescribed by: LINDA MANSFIELD on 01/26/17 1053 Sucralfate 1 Gm Tablet, 1 GM PO ACHS Prescribed by: LINDA MANSFIELD on 01/26/17 1053 [Vit B-12 Gummies] , 2 TAB PO HS, (Reported) [Vitamin C] , 1 TAB PO HS, (Reported) Patient Home Medication List Home Medication List Reviewed: Yes Review of Systems Review of Systems Constitutional: see HPI EENTM: see HPI Respiratory: no symptoms reported Cardiovascular: no symptoms reported Gastrointestinal: abdominal pain, nausea, vomiting Genitourinary: no symptoms reported Musculoskeletal: no symptoms reported Skin: no symptoms reported Psychiatric/Neurological: No Symptoms Reported Hematologic/Lymphatic: No Symptoms Reported Past Wznitsa-Ccjspi-Mtbqfd Hx Patient Social History Alcohol Use: Denies Use Recreational Drug Use: No Smoking Status: Never a Smoker Type Used: Cigarettes Former Smoker, Quit: Aug 12, 1992 2nd Hand Smoke Exposure: No Recent Foreign Travel: No Contact w/Someone Who Travel: No Recent Hopitalizations: No Immunizations Up To Date Tetanus Booster (TDap): Less than 5yrs Date of Pneumonia Vaccine: Nov 21, 2016 Date of Influenza Vaccine: Aug 30, 2016 Seasonal Allergies Seasonal Allergies: No Past Medical History Surgeries: Yes (back x2, ) Abdominal, Appendectomy, Ear Surgery, Gallbladder, Hysterectomy, Orthopedic Respiratory: No Currently Using CPAP: No Currently Using BIPAP: No Cardiac: Yes High Cholesterol, Syncope Neurological: Yes Neuropathy 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 Disorders: No Female 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 Disorders: 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, Ovarian Cyst 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 History: Menopausal Sexually Transmitted Disease: No HIV/AIDS: No Genitourinary: No Renal Failure Gastrointestinal: No Gastroesophageal Reflux Musculoskeletal: Yes Arthritis, Chronic Back Pain Endocrine: Yes Diabetes, Insulin dep Cataract Cancer: No Psychosocial: Yes Anxiety, Bipolar, Depression Integumentary: Yes (SORES ON ARMS) Blood Disorders: No Family Medical History FH: diabetes mellitus FH: heart disease No Pertinent Family Hx, Heart Disease Physical Exam Vital Signs Vital Signs - First Documented 11/01/18 18:31 Temp 96.9 Pulse 68 Resp 18 B/P (MAP) 141/73 (95) Pulse Ox 100 O2 Delivery Room Air Capillary Refill : Height, Weight, BMI Height: 5'7.00" Weight: 195lbs. 0oz. 88.517178ge; 29.3 BMI Method:Stated General Appearance: No Apparent Distress, WD/WN Eyes: Bilateral Eye Normal Inspection, Bilateral Eye PERRL, Bilateral Eye EOMI HEENT: PERRL/EOMI, TMs Normal Neck: Full Range of Motion, Normal Inspection Respiratory: No Accessory Muscle Use, No Respiratory Distress Cardiovascular: Regular Rate, Rhythm, Normal Peripheral Pulses Gastrointestinal: Normal Bowel Sounds, Non Tender, Soft Extremity: Normal Capillary Refill, Normal Inspection Neurologic/Psychiatric: Alert, Oriented x3 Skin: Normal Color, Warm/Dry Progress/Results/Core Measures Suspected Sepsis SIRS Temperature: Pulse: Respiratory Rate: Laboratory Tests 11/01/18 18:39: White Blood Count 7.4 Blood Pressure / Mean: Laboratory Tests 11/01/18 18:39: Creatinine 1.26, Platelet Count 227, Total Bilirubin 0.6 Results/Orders Lab Results Laboratory Tests Test 11/01/18 18:39 11/01/18 19:23 Range/Units White Blood Count 7.4 4.3-11.0 10^3/uL Red Blood Count 4.38 4.35-5.85 10^6/uL Hemoglobin 14.1 11.5-16.0 G/DL Hematocrit 41 35-52 % Mean Corpuscular Volume 93 80-99 FL Mean Corpuscular Hemoglobin 32 25-34 PG Mean Corpuscular Hemoglobin Concent 35 32-36 G/DL Red Cell Distribution Width 12.6 10.0-14.5 % Platelet Count 227 130-400 10^3/uL Mean Platelet Volume 10.0 7.4-10.4 FL Neutrophils (%) (Auto) 58 42-75 % Lymphocytes (%) (Auto) 28 12-44 % Monocytes (%) (Auto) 6 0-12 % Eosinophils (%) (Auto) 7 0-10 % Basophils (%) (Auto) 1 0-10 % Neutrophils # (Auto) 4.3 1.8-7.8 X 10^3 Lymphocytes # (Auto) 2.0 1.0-4.0 X 10^3 Monocytes # (Auto) 0.5 0.0-1.0 X 10^3 Eosinophils # (Auto) 0.5 H 0.0-0.3 10^3/uL Basophils # (Auto) 0.1 0.0-0.1 10^3/uL Sodium Level 138 135-145 MMOL/L Potassium Level 3.9 3.6-5.0 MMOL/L Chloride Level 102 98-107 MMOL/L Carbon Dioxide Level 22 21-32 MMOL/L Anion Gap 14 5-14 MMOL/L Blood Urea Nitrogen 7 7-18 MG/DL Creatinine 1.26 0.60-1.30 MG/DL Estimat Glomerular Filtration Rate 44 BUN/Creatinine Ratio 6 Glucose Level 264 H 70-105 MG/DL Calcium Level 9.9 8.5-10.1 MG/DL Corrected Calcium 9.8 8.5-10.1 MG/DL Total Bilirubin 0.6 0.1-1.0 MG/DL Aspartate Amino Transf (AST/SGOT) 38 H 5-34 U/L Alanine Aminotransferase (ALT/SGPT) 39 0-55 U/L Alkaline Phosphatase 132 40-136 U/L Total Protein 8.0 6.4-8.2 GM/DL Albumin 4.1 3.2-4.5 GM/DL Lipase 52 8-78 U/L Urine Color YELLOW Urine Clarity CLEAR Urine pH 7 5-9 Urine Specific [place] 1.005 L 1.016-1.022 Urine Protein NEGATIVE NEGATIVE Urine Glucose (UA) 4+ H NEGATIVE Urine Ketones NEGATIVE NEGATIVE Urine Nitrite NEGATIVE NEGATIVE Urine Bilirubin NEGATIVE NEGATIVE Urine Urobilinogen NORMAL NORMAL MG/DL Urine Leukocyte Esterase 1+ H NEGATIVE Urine RBC (Auto) NEGATIVE NEGATIVE Urine RBC NONE /HPF Urine WBC 2-5 /HPF Urine Squamous Epithelial Cells 5-10 /HPF Urine Crystals NONE /LPF Urine Bacteria NONE /HPF Urine Casts NONE /LPF Urine Mucus NEGATIVE /LPF Urine Culture Indicated NO My Orders Orders - ELVA ÁLVAREZ APRN Ondansetron Injection (Zofran Injectio (11/01/18 19:00) Pantoprazole Injection (Protonix Injecti (11/01/18 19:00) Ns Iv 1000 Ml (Sodium Chloride 0.9%) (11/01/18 19:00) Cbc With Automated Diff (11/01/18 18:53) Comprehensive Metabolic Panel (11/01/18 18:53) Lipase (11/01/18 18:53) Ua Culture If Indicated (11/01/18 18:53) Iv Heplock-Insert (Order) (11/01/18 18:53) Medications Given in ED Current Medications Medications Dose Ordered Sig/Josh Route Start Time Stop Time Status Last Admin Dose Admin Ondansetron HCl 8 mg ONCE ONCE IVP 11/01/18 19:00 11/01/18 19:01 DC 11/01/18 19:08 8 MG Pantoprazole 40 mg ONCE ONCE IV 11/01/18 19:00 11/01/18 19:01 DC 11/01/18 19:08 40 MG Vital Signs/I&O 11/01/18 18:31 Temp 96.9 Pulse 68 Resp 18 B/P (MAP) 141/73 (95) Pulse Ox 100 O2 Delivery Room Air Capillary Refill : Departure Impression Primary Impression: Nausea & vomiting Qualified Codes: R11.2 - Nausea with vomiting, unspecified Disposition: HOME, SELF-CARE Condition: Improved Departure-Patient Inst. Decision time for Depature: 19:47 Referrals: [facility] [place]) Primary Care Physician Patient Instructions: Nausea and Vomiting, Adult Add. Discharge Instructions: All discharge instructions reviewed with patient and/or family. Voiced understanding. Clear liquids only for the next 24 hours. Scripts Promethazine HCl (Promethazine Tablet) 25 Mg Tablet 25 MG PO Q6H PRN for NAUSEA/VOMITING, #10 TAB Prov: ELVA ÁLVAREZ APRN 11/01/18 ELVA ÁLVAREZ APRN Nov 01, 2018 18:55
[2018-11-01 18:59] LABS: BASOPHILS # (AUTO) 0.1 10^3/uL (0.0-0.1); BASOPHILS % (AUTO) 1 % (0-10); EOSINOPHILS # (AUTO) 0.5 10^3/uL (0.0-0.3); EOSINOPHILS % (AUTO) 7 % (0-10); HEMATOCRIT 41 % (35-52); HEMOGLOBIN 14.1 G/DL (11.5-16.0); LYMPHOCYTES % (AUTO) 28 % (12-44); MEAN CORPUSCULAR HEMOGLOBIN 32 PG (25-34); MEAN CORPUSCULAR HGB CONC 35 G/DL (32-36); MEAN CORPUSCULAR VOLUME 93 FL (80-99); MONOCYTES # (AUTO) 0.5 X 10^3 (0.0-1.0); MONOCYTES % (AUTO) 6 % (0-12); NEUTROPHILS # (AUTO) 4.3 X 10^3 (1.8-7.8); NEUTROPHILS % (AUTO) 58 % (42-75); PLATELET COUNT 227 10^3/uL (130-400); RED BLOOD COUNT 4.38 10^6/uL (4.35-5.85); RED CELL DISTRIBUTION WIDTH 12.6 % (10.0-14.5); WHITE BLOOD COUNT 7.4 10^3/uL (4.3-11.0)
[2018-11-01] MEDS ORDERED: NS IV 1000 ML 1,000 ML IV SCH (19:00)
[2018-11-01] MEDS ORDERED: PANTOPRAZOLE 40 MG (PROTONIX) VIAL IV ONE (19:00)
[2018-11-01] MEDS ORDERED: ONDANSETRON 4 MG/2 ML (SDV) Z0FRAN IVP ONE (19:00)
--- OUTSIDE RECORDS SUMMARY | 2018-11-01 19:10 | XMS REPORT | Continuity of Care Document ---
Author Author [facility] Address Unknown Phone Unavailable Allergies Active Description Code Type Severity Reaction Onset Reported/Identified Relationship to Patient Clinical Status Yes codeine Drug Allergy N/A N/A 11/28/2008 Yes Dental Metal OA N/A N/A 11/28/2008 Yes codeine Drug Allergy 11/28/2008 Yes Dental Metal OA 11/28/2008 Yes codeine [id number] Drug Allergy Unknown HEART PALPATATI 02/04/2015 Medications [...] TYPE II - UNCOMPLICATED, CONTROLLED 06/15/2008 VALERIE PATINO DO 272.4 DYSLIPIDEMIA 06/15/2008 250.00 DIABETES MELLITUS [...] DO, VALERIE K 272.4 DYSLIPIDEMIA 06/15/2008 IAN LOAIZA SHAHEEN E 250.00 DIABETES MELLITUS TYPE II [...] TYPE II - UNCOMPLICATED, CONTROLLED 06/15/2008 ZAKIYAANNA 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, SHAHEEN E 272.4 DYSLIPIDEMIA 06/15/2008 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, SHAHEEN E 250.00 DIABETES MELLITUS TYPE II - UNCOMPLICATED, CONTROLLED 06/15/2008 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, SHAHEEN E 272.4 DYSLIPIDEMIA 06/15/2008 PATINO DO, [...] VALERIE K 462 PHARYNGITIS ACUTE 06/19/2008 HELLWIG 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 SHAHEEN E 250.02 DIABETES MELLITUS TYPE 2 - UNCOMPLICATED, UNCONTROLLED 06/19/2008 HELLWIG 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, SHAHEEN E 382.00 OTITIS MEDIA ACUTE WITHOUT SPONTANEOUS RUPTURE EARDRUM 06/19/2008 HELLWIG 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 SHAHEEN E 462 PHARYNGITIS ACUTE 06/19/2008 SHYAM DPM, ROXY 250.02 DIABETES MELLITUS TYPE 2 - UNCOMPLICATED, UNCONTROLLED 06/19/2008 SHYAM DPM, ROXY 382.00 OTITIS MEDIA ACUTE WITHOUT SPONTANEOUS RUPTURE EARDRUM 06/19/2008 SHYAM DPM, ROXY 462 PHARYNGITIS ACUTE 06/19/2008 HE[facility]IG 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 SHAHEEN E 250.02 DIABETES MELLITUS TYPE 2 - UNCOMPLICATED, UNCONTROLLED 06/19/2008 HELLWIG 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, SHAHEEN E 382.00 OTITIS MEDIA ACUTE WITHOUT SPONTANEOUS RUPTURE EARDRUM 06/19/2008 HELLWIG 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 SHAHEEN E 462 PHARYNGITIS ACUTE 06/19/2008 PATINO DO, VALERIE K 250.02 DIABETES MELLITUS TYPE 2 - UNCOMPLICATED, UNCONTROLLED 06/19/2008 PATINO DO, VALERIE K 382.00 OTITIS MEDIA ACUTE WITHOUT SPONTANEOUS RUPTURE EARDRUM 06/19/2008 PATINO DO, VALERIE K 462 PHARYNGITIS ACUTE 06/19/2008 HE[facility]IG 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 SHAHEEN E 250.02 DIABETES MELLITUS TYPE 2 - UNCOMPLICATED, UNCONTROLLED 06/19/2008 HELLWIG 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, SHAHEEN E 382.00 OTITIS MEDIA ACUTE WITHOUT SPONTANEOUS RUPTURE EARDRUM 06/19/2008 HELLWIG 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 SHAHEEN E 462 PHARYNGITIS ACUTE 06/19/2008 HELLWIG 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 SHAHEEN E 250.02 DIABETES MELLITUS TYPE 2 - UNCOMPLICATED, UNCONTROLLED 06/19/2008 ZAKIYAANNA 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, SHAHEEN E 382.00 OTITIS MEDIA ACUTE WITHOUT SPONTANEOUS RUPTURE EARDRUM 06/19/2008 ZAKIYAFIONA 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, SHAHEEN E 462 PHARYNGITIS ACUTE 06/19/2008 SUKUMAR OCONNOR VALERIE K 250.02 DIABETES MELLITUS TYPE 2 - UNCOMPLICATED, UNCONTROLLED 06/19/2008 SUUKMAR OCONNOR VALERIE K 382.00 OTITIS MEDIA ACUTE [...] K 724.4 BACK PA[facility] WITH RADIATION [facility]04[facility] E 300.00 anxiety 07/04/2008 SHAHEEN [...] SOSA APRNE E 300.00 anxiety 07/04/2008 IAN 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, SHAHEEN E 724.4 BACK PAIN WITH RADIATION 07/04/2008 [facility]SE SHAHEEN E 300.00 anxiety 07/04/2008 ZAKIYAANNA 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GADIELSHAHEEN E 724.4 BACK PAIN WITH RADIATION 07/04/2008 [...] 709.9 DERMATITIS OTHER SKIN DISORDERS 07/18/2008 HELLWIG 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, SHAHEEN E 709.9 DERMATITIS OTHER SKIN DISORDERS [...] VALERIE K 724.5 BACKACHE UNSPECIFIED 08/29/2008 [facility]WIG 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, SHAHEEN E 724.5 BACKACHE UNSPECIFIED 08/29/2008 SHYAM DPM, ROXY 724.5 BACKACHE UNSPECIFIED 08/29/2008 HE[facility] 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, SHAHEEN E 724.5 BACKACHE UNSPECIFIED 08/29/2008 PATINO DO, VALERIE K 724.5 BACKACHE UNSPECIFIED 08/29/2008 HE[facility]IG 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, SHAHEEN E 724.5 BACKACHE UNSPECIFIED 08/29/2008 HELL[facility]IG 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, SHAHEEN E 724.5 BACKACHE UNSPECIFIED 08/29/2008 PATINO [...] DO, VALERIE K 259.9 ENDOCRINE DISORDERS 11/28/2008 APTINO DO, VALERIE K 786.2 cough 11/28/2008 PATINO [...] APRNSIE E 259.9 ENDOCRINE DISORDERS 11/28/2008 HELL[facility]IG 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, SHAHEEN E 786.2 cough 11/28/2008 SHYAM DPM, ROXY 034.0 PHARYNGITIS STREPTOCOCCUS, GROUP A: BETA HEMOLYTIC 11/28/2008 SHYAM DPM, ROXY 259.9 ENDOCRINE DISORDERS 11/28/2008 SHYAM DPM, ROXY 786.2 cough 11/28/2008 [facility] 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, SHAHEEN E 034.0 PHARYNGITIS STREPTOCOCCUS, GROUP A: BETA HEMOLYTIC 11/28/2008 [facility] 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, SHAHEEN E 259.9 ENDOCRINE DISORDERS 11/28/2008 [facility] 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, SHAHEEN E 786.2 cough 11/28/2008 PATINO DO, VALERIE K 034.0 PHARYNGITIS STREPTOCOCCUS, GROUP A: BETA HEMOLYTIC 11/28/2008 PATINO DO, VALERIE K 259.9 ENDOCRINE DISORDERS 11/28/2008 PATINO DO, VALERIE K 786.2 cough 11/28/2008 [facility] 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, SHAHEEN E 034.0 PHARYNGITIS STREPTOCOCCUS, GROUP A: BETA HEMOLYTIC 11/28/2008 [facility] E 259.9 ENDOCRINE DISORDERS 11/28/2008 [facility] 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, SHAHEEN E 786.2 cough 11/28/2008 [facility] 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, SHAHEEN E 034.0 PHARYNGITIS STREPTOCOCCUS, GROUP A: BETA HEMOLYTIC 11/28/2008 [facility] 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, SHAHEEN E 259.9 ENDOCRINE DISORDERS 11/28/2008 [facility] 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, SHAHEEN E 786.2 cough 11/28/2008 PATINO DO, [...] VALERIE K 692.6 POISON JOHANA 01/18/2009 [facility] 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, SHAHEEN E 692.6 POISON JOHANA 01/18/2009 NADIA DDS, TILA M 692.6 POISON JOHANA 01/18/2009 PATINO DO, VALERIE K 692.6 POISON JOHANA 01/18/2009 PATINO DO, VALERIE K 692.6 POISON JOHANA 01/18/2009 [facility] 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, SHAHEEN E 692.6 POISON JOHANA 01/18/2009 SHYAM DPM, ROXY 692.6 POISON JOHANA 01/18/2009 [facility] 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, SHAHEEN E 692.6 POISON JOHANA 01/18/2009 PATINO DO, VALERIE K 692.6 POISON JOHANA 01/18/2009 [facility] 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, SHAHEEN E 692.6 POISON JOHANA 01/18/2009 HE[facility] 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, SHAHEEN E 692.6 POISON JOHANA 01/18/2009 PATINO [...] ZAKIYALANNA MORENONSHAHEEN E 477.9 RHINITIS 04/09/2009 HELLANNA 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GADIELSHAHEEN E V15.09 PERSONAL HISTORY OF OTHER ALLERGY [...] OTHER THAN TO MEDICINAL AGENTS 04/09/2009 [facility] 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 SHAHEEN E 477.9 RHINITIS 04/09/2009 HELLWIG 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, SHAHEEN E V15.09 PERSONAL HISTORY OF OTHER ALLERGY OTHER THAN TO MEDICINAL AGENTS 04/09/2009 SHYAM DPM, ROXY 477.9 RHINITIS 04/09/2009 SHYAM DPM, ROXY V15.09 PERSONAL HISTORY OF OTHER ALLERGY OTHER THAN TO MEDICINAL AGENTS 04/09/2009 HELLW[facility] 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GADIELSHAHEEN E 477.9 RHINITIS 04/09/2009 HE[facility]IG 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, SHAHEEN E V15.09 PERSONAL HISTORY OF OTHER ALLERGY OTHER THAN TO MEDICINAL AGENTS 04/09/2009 PATINO DO, VALERIE K 477.9 RHINITIS 04/09/2009 PATINO DO, VALERIE K V15.09 PERSONAL HISTORY OF OTHER ALLERGY OTHER THAN TO MEDICINAL AGENTS 04/09/2009 HELLWIG 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GADIEL RinaldiSIE E 477.9 RHINITIS 04/09/2009 HELLWIG 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 SHAHEEN E V15.09 PERSONAL HISTORY OF OTHER ALLERGY OTHER THAN TO MEDICINAL AGENTS 04/09/2009 HELLWIG 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, SHAHEEN E 477.9 RHINITIS 04/09/2009 HELLWIG 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 SHAHEEN E V15.09 PERSONAL HISTORY OF OTHER [...] K 724.2 lower back pain 06/05/2009 HEL[facility]IG 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, SHAHEEN E 724.2 lower back pain 06/05/2009 SHYAM DPM, ROXY 724.2 lower back pain 06/05/2009 HELL[facility]IG 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, SHAHEEN E 724.2 lower back pain 06/05/2009 PATINO DO, VALERIE K 724.2 lower back pain [facility]/05/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 SHAHEEN E 724.2 lower back pain 06/05/2009 HELWIG 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, SHAHEEN E 724.2 lower back pain 06/05/2009 [...] OF LUMBAR INTERVERTEBRAL DISC WITHOUT MYELOPATHY 06/19/2009 [facility] SHAHEEN LOAIZA E 722.10 DISPLACEMENT OF LUMBAR [...] 250.00 DIABETES MELLITUS POORLY CONTROLLED 07/19/2009 HELLWIG 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, SHAHEEN E 845.00 UNSPECIFIED SITE OF ANKLE SPRAIN 07/19/2009 PATINO DO, VALERIE K 250.00 DIABETES MELLITUS POORLY CONTROLLED 07/19/2009 PATINO DO, VALERIE K 845.00 UNSPECIFIED SITE OF ANKLE SPRAIN 07/19/2009 HELLWIG 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, SHAHEEN E 250.00 DIABETES MELLITUS POORLY CONTROLLED 07/19/2009 [facility] 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, SHAHEEN E 845.00 UNSPECIFIED SITE OF ANKLE SPRAIN 07/19/2009 HELLWIG 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, SHAHEEN E 250.00 DIABETES MELLITUS POORLY CONTROLLED 07/19/2009 HE[facility] 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, SHAHEEN E 845.00 UNSPECIFIED SITE OF ANKLE [...] UNSPECIFIED SITE OF ANKLE SPRAIN 09/19/2009 SHAMIKA GOLDBERG MD 599.0 URINARY TRACT [...] TRACT INFECTION, SITE NOT SPECIFIED 09/19/2009 [facility] 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, SHAHEEN E 599.0 URINARY TRACT INFECTION, SITE NOT SPECIFIED 09/19/2009 SHYAM DPM, ROXY 599.0 URINARY TRACT INFECTION, SITE NOT SPECIFIED 09/19/2009 [facility] 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, SHAHEEN E 599.0 URINARY TRACT INFECTION, SITE NOT SPECIFIED 09/19/2009 PATINO DO, VALERIE K 599.0 URINARY TRACT INFECTION, SITE NOT SPECIFIED 09/19/2009 [facility] 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, SHAHEEN E 599.0 URINARY TRACT INFECTION, SITE NOT SPECIFIED 09/19/2009 HE[facility]IG 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, SHAHEEN E 599.0 URINARY TRACT INFECTION, SITE [...] DO, VALERIE K 787.91 DIARRHEA 09/26/2009 [facility] 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, SHAHEEN E 388.70 earache 09/26/2009 [facility] 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, SHAHEEN E 787.91 DIARRHEA 09/26/2009 NADIA DDS, TILA M 388.70 earache 09/26/2009 NADIA DDS, TILA M 787.91 DIARRHEA 09/26/2009 PATINO DO, VALERIE K 388.70 earache 09/26/2009 PATINO DO, VALERIE K 787.91 DIARRHEA 09/26/2009 PATINO DO, VALERIE K 388.70 earache 09/26/2009 PATINO DO, VALERIE K 787.91 DIARRHEA 09/26/2009 HE[facility] 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, SHAHEEN E 388.70 earache 09/26/2009 HE[facility] 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, SHAHEEN E 787.91 DIARRHEA 09/26/2009 SHYAM DPM, ROXY 388.70 earache 09/26/2009 SHYAM DPM, ROXY 787.91 DIARRHEA 09/26/2009 HE[facility] 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 SHAHEEN E 388.70 earache 09/26/2009 HE[facility] 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, SHAHEEN E 787.91 DIARRHEA 09/26/2009 PATINO DO, VALERIE K 388.70 earache 09/26/2009 PATINO DO, VALERIE K 787.91 DIARRHEA 09/26/2009 HE[facility] 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, SHAHEEN E 388.70 earache 09/26/2009 HE[facility] 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, SHAHEEN E 787.91 DIARRHEA 09/26/2009 HE[facility] 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, SHAHEEN E 388.70 earache 09/26/2009 HE[facility] 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, SHAHEEN E 787.91 DIARRHEA 09/26/2009 PATINO DO, [...] 10/31/2009 SHAMIKA GOLDBERG MD 270.7 HYPERGLYCINEMIA 10/31/2009 SAHMIKA GOLDBERG MD 357.9 NEUROPATHY UNSP 10/31/2009 SHAMIKA GOLDBERG MD 401.1 ESSENTIAL HYPERTENSION BENIGN 10/31/2009 SHAMIKA GOLDBERG MD 780.79 MALAISE AND FATIGUE 10/31/2009 SHAMIKA GOLDBERG MD 270.7 HYPERGLYCINEMIA 10/31/2009 SHAMIKA GOLDBREG MD 357.9 NEUROPATHY UNSP 10/31/2009 SHAMIKA GOLDBERG MD 401.1 ESSENTIAL HYPERTENSION BENIGN 10/31/2009 SHAMIKA GOLDBERG MD 780.79 FATIGUE 10/31/2009 PATINO DO VALERIE K 270.7 HYPERGLYCINEMIA 10/31/2009 PATINO DO VALERIE K 357.9 NEUROPATHY UNSP 10/31/2009 [...] DO, VALERIE K 780.79 FATIGUE 10/31/2009 FELICIANO 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, NAY R 270.7 HYPERGLYCINEMIA 10/31/2009 FELICIANO 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, NAY R 357.9 NEUROPATHY UNSP 10/31/2009 FELICIANO 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, NAY R 401.1 ESSENTIAL HYPERTENSION BENIGN 10/31/2009 FELICIANO 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, NYA R 780.79 FATIGUE 10/31/2009 PATINO DO, VALERIE [...] DO, VALERIE K 780.79 FATIGUE 10/31/2009 [facility] 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, SHAHEEN E 270.7 HYPERGLYCINEMIA 10/31/2009 HELL[facility]IG 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, SHAHEEN E 357.9 NEUROPATHY UNSP 10/31/2009 HELL[facility]IG 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, SHAHEEN E 401.1 ESSENTIAL HYPERTENSION BENIGN 10/31/2009 [facility] 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, SHAHEEN E 780.79 FATIGUE 10/31/2009 NADIA DDS, [...] DO, VALERIE K 780.79 FATIGUE 10/31/2009 [facility] 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, SHAHEEN E 270.7 HYPERGLYCINEMIA 10/31/2009 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 SHAHEEN E 357.9 NEUROPATHY UNSP 10/31/2009 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, SHAHEEN E 401.1 ESSENTIAL HYPERTENSION BENIGN 10/31/2009 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, SHAHEEN E 780.79 FATIGUE 10/31/2009 SHYAM DPM, ROXY 270.7 HYPERGLYCINEMIA 10/31/2009 SHYAM DPM, ROXY 357.9 NEUROPATHY UNSP 10/31/2009 SHYAM DPM, ROXY 401.1 ESSENTIAL HYPERTENSION BENIGN 10/31/2009 SHYAM DPM, ROXY 780.79 FATIGUE 10/31/2009 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, SHAHEEN E 270.7 HYPERGLYCINEMIA 10/31/2009 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, SHAHEEN E 357.9 NEUROPATHY UNSP 10/31/2009 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 SHAHEEN E 401.1 ESSENTIAL HYPERTENSION BENIGN 10/31/2009 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, SHAHEEN E 780.79 FATIGUE 10/31/2009 PATINO DO, VALERIE K 270.7 HYPERGLYCINEMIA 10/31/2009 PATINO DO, VALERIE K 357.9 NEUROPATHY UNSP 10/31/2009 PATINO DO, VALERIE K 401.1 ESSENTIAL HYPERTENSION BENIGN 10/31/2009 PATINO DO, VALERIE K 780.79 FATIGUE 10/31/2009 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, SHAHEEN E 270.7 HYPERGLYCINEMIA 10/31/2009 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, SHAHEEN E 357.9 NEUROPATHY UNSP 10/31/2009 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, SHAHEEN E 401.1 ESSENTIAL HYPERTENSION BENIGN 10/31/2009 [facility] 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, SHAHEEN E 780.79 FATIGUE 10/31/2009 HE[facility] 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, SHAHEEN E 270.7 HYPERGLYCINEMIA 10/31/2009 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, SHAHEEN E 357.9 NEUROPATHY UNSP 10/31/2009 ZAKIYAAlvinaANNA 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, SHAHEEN E 401.1 ESSENTIAL HYPERTENSION BENIGN 10/31/2009 HELAlvinaANNA 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, SHAHEEN E 780.79 FATIGUE 10/31/2009 PATINO DO, [...] SHYAM DPM, ROXY 250.40 DIABETIC NEPHROPATHY 01/23/2010 [facility] E 250.40 DIABETIC NEPHROPATHY 01/23/2010 PATINO DO, VALERIE K 250.40 DIABETIC NEPHROPATHY 01/23/2010 [facility] SHAHEEN E 250.40 DIABETIC NEPHROPATHY 01/23/2010 [...] VALERIE K 465.9 Upper Respiratory Infection 10/15/2010 PAITNO DO, VALERIE K 786.05 Shortness Of Breath [...] K 786.05 Shortness Of Breath 10/15/2010 FELICIANO 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NAY R 465.9 Upper Respiratory Infection 10/15/2010 FELICIANO 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NAY R 786.05 Shortness Of Breath 10/15/2010 PATINO DO, VALERIE K 465.9 Upper Respiratory Infection 10/15/2010 PATINO DO, VALERIE K 786.05 Shortness Of Breath 10/15/2010 PATINO DO, VALERIE K 465.9 Upper Respiratory Infection 10/15/2010 PATINO DO, VALERIE K 786.05 Shortness Of Breath 10/15/2010 [facility] 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, SHAHEEN E 465.9 Upper Respiratory Infection 10/15/2010 [facility] 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, SHAHEEN E 786.05 Shortness Of Breath 10/15/2010 NADIA DDS, TILA M 465.9 Upper Respiratory Infection 10/15/2010 NADIA DDS, TILA M 786.05 Shortness Of Breath 10/15/2010 PATINO DO, VALERIE K 465.9 Upper Respiratory Infection 10/15/2010 PATINO DO, VALERIE K 786.05 Shortness Of Breath 10/15/2010 PATINO DO, VALERIE K 465.9 Upper Respiratory Infection 10/15/2010 PATINO DO, VALERIE K 786.05 Shortness Of Breath 10/15/2010 [facility] 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, SHAHEEN E 465.9 Upper Respiratory Infection 10/15/2010 [facility] 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, SHAHEEN E 786.05 Shortness Of Breath 10/15/2010 SHYAM DPM, ROXY 465.9 Upper Respiratory Infection 10/15/2010 SHYAM DPM, ROXY 786.05 Shortness Of Breath 10/15/2010 [facility] 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, SHAHEEN E 465.9 Upper Respiratory Infection 10/15/2010 [facility] 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, SHAHEEN E 786.05 Shortness Of Breath 10/15/2010 PATINO DO, VALERIE K 465.9 Upper Respiratory Infection 10/15/2010 PATINO DO, VALERIE K 786.05 Shortness Of Breath 10/15/2010 [facility] 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, SHAHEEN E 465.9 Upper Respiratory Infection 10/15/2010 HE[facility]IG 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, SHAHEEN E 786.05 Shortness Of Breath 10/15/2010 HE[facility] 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, SHAHEEN E 465.9 Upper Respiratory Infection 10/15/2010 [facility] 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, SHAHEEN E 786.05 Shortness Of Breath 10/15/2010 [...] DO, VALERIE K 577.0 Acute Pancreatitis 02/03/2011 NAY FELICIANO APRN 577.0 Acute Pancreatitis 02/03/2011 PATINO DO, VALERIE K 577.0 Acute Pancreatitis 02/03/2011 PATINO DO, VALERIE K 577.0 Acute Pancreatitis 02/03/2011 [facility] 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, SHAHEEN E 577.0 Acute Pancreatitis 02/03/2011 NADIA DDS, TILA M 577.0 Acute Pancreatitis 02/03/2011 PATINO DO, VALERIE K 577.0 Acute Pancreatitis 02/03/2011 PATINO DO, VALERIE K 577.0 Acute Pancreatitis 02/03/2011 [facility] 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, SHAHEEN E 577.0 Acute Pancreatitis 02/03/2011 SHYAM DPM, ROXY 577.0 Acute Pancreatitis 02/03/2011 [facility] 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, SHAHEEN E 577.0 Acute Pancreatitis 02/03/2011 PATINO DO, VALERIE K 577.0 Acute Pancreatitis 02/03/2011 [facility] 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, SHAHEEN E 577.0 Acute Pancreatitis 02/03/2011 [facility] 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, SHAHEEN E 577.0 Acute Pancreatitis 02/03/2011 PATINO [...] VALERIE K 784.91 Postnasal Drip 03/25/2011 [facility] 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, SHAHEEN E 784.91 Postnasal Drip 03/25/2011 SHYAM DPM, ROXY 784.91 Postnasal Drip 03/25/2011 [facility] 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, SHAHEEN E 784.91 Postnasal Drip 03/25/2011 PATINO DO, VALERIE K 784.91 Postnasal Drip 03/25/2011 [facility] 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, SHAHEEN E 784.91 Postnasal Drip 03/25/2011 HELLANNA 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, SHAHEEN E 784.91 Postnasal Drip 03/25/2011 PATINO [...] K 788.30 Urinary Incontinence, Unspecified 07/29/2011 [facility] 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, SHAHEEN E 788.30 Urinary Incontinence, Unspecified 07/29/2011 NADIA DDS, TILA M 788.30 Urinary Incontinence, Unspecified 07/29/2011 PATINO DO, VALERIE K 788.30 Urinary Incontinence, Unspecified 07/29/2011 PATINO DO, VALERIE K 788.30 Urinary Incontinence, Unspecified 07/29/2011 [facility] 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, SHAHEEN E 788.30 Urinary Incontinence, Unspecified 07/29/2011 SHYAM DPM, ROXY 788.30 Urinary Incontinence, Unspecified 07/29/2011 [facility] 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, SHAHEEN E 788.30 Urinary Incontinence, Unspecified 07/29/2011 PATINO DO, VALERIE K 788.30 Urinary Incontinence, Unspecified 07/29/2011 [facility] 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, SHAHEEN E 788.30 Urinary Incontinence, Unspecified 07/29/2011 [facility] 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, SHAHEEN E 788.30 Urinary Incontinence, Unspecified 07/29/2011 [...] OF SKIN AND SUBCUTANEOUS TISSUE 08/04/2011 IAN 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 SHAHEEN E 686.9 UNSPECIFIED LOCAL INFECTION OF SKIN AND SUBCUTANEOUS TISSUE 08/04/2011 PATINO DO, VALERIE K 686.9 UNSPECIFIED LOCAL INFECTION OF SKIN AND SUBCUTANEOUS TISSUE 08/04/2011 IAN 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 SHAHEEN E 686.9 UNSPECIFIED LOCAL INFECTION OF SKIN AND SUBCUTANEOUS TISSUE 08/04/2011 [facility] 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 SHAHEEN E 686.9 UNSPECIFIED LOCAL INFECTION OF [...] SHAMIKA GOLDBERG MD 079.99 VIRAL SYNDROME 08/10/2011 PATINO VALERIE [...] OCONNORA K 079.99 VIRAL SYNDROME 08/10/2011 [facility] 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, SHAHEEN E 079.99 VIRAL SYNDROME 08/10/2011 NADIA DDS, TILA M 079.99 VIRAL SYNDROME 08/10/2011 PATINO DO, VALERIE K 079.99 VIRAL SYNDROME 08/10/2011 PATINO DO, VALERIE K 079.99 VIRAL SYNDROME 08/10/2011 [facility] 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, SHAHEEN E 079.99 VIRAL SYNDROME 08/10/2011 SHYAM DPM, ROXY 079.99 VIRAL SYNDROME 08/10/2011 [facility] 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, SHAHEEN E 079.99 VIRAL SYNDROME 08/10/2011 PATINO DO, VALERIE K 079.99 VIRAL SYNDROME 08/10/2011 HELLANNA 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, SHAHEEN E 079.99 VIRAL SYNDROME 08/10/2011 [facility] 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, SHAHEEN E 079.99 VIRAL SYNDROME 08/10/2011 PATINO [...] K 786.50 UNSPECIFIED CHEST PAIN 08/28/2011 [facility] 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, SHAHEEN E 786.50 UNSPECIFIED CHEST PAIN 08/28/2011 SHYAM DPM, ROXY 786.50 UNSPECIFIED CHEST PAIN 08/28/2011 [facility] 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, SHAHEEN E 786.50 UNSPECIFIED CHEST PAIN 08/28/2011 PATINO DO, VALERIE K 786.50 UNSPECIFIED CHEST PAIN 08/28/2011 [facility] 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, SHAHEEN E 786.50 UNSPECIFIED CHEST PAIN 08/28/2011 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, SHAHEEN E 786.50 UNSPECIFIED CHEST PAIN 08/28/2011 [...] 276.51 DEHYDRATION (Na, H2O) 02/26/2012 PATINO DO VLAERIE K 787.02 nausea 02/26/2012 PATINO DO VALERIE [...] APRN E 276.51 DEHYDRATION (Na, H2O) 02/26/2012 [facility] 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, SHAHEEN E 787.02 nausea 02/26/2012 SHYAM DPM, ROXY 276.51 DEHYDRATION (Na, H2O) 02/26/2012 SHYAM DPM, ROXY 787.02 nausea 02/26/2012 [facility] 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, SHAHEEN E 276.51 DEHYDRATION (Na, H2O) 02/26/2012 [facility] 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, SHAHEEN E 787.02 nausea 02/26/2012 PATINO DO, VALERIE K 276.51 DEHYDRATION (Na, H2O) 02/26/2012 PATINO DO, VALERIE K 787.02 nausea 02/26/2012 [facility] 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, SHAHEEN E 276.51 DEHYDRATION (Na, H2O) 02/26/2012 [facility] 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, SHAHEEN E 787.02 nausea 02/26/2012 [facility] 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, SHAHEEN E 276.51 DEHYDRATION (Na, H2O) 02/26/2012 [facility] 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, SHAHEEN E 787.02 nausea 02/26/2012 PATINO DO, VALERIE K 276.51 DEHYDRATION (Na, H2O) 02/26/2012 PATINO DO, VALERIE K 787.02 nausea 02/26/2012 PATINO DO, VALEIRE K 276.51 DEHYDRATION (Na, H2O) 02/26/2012 PATINO [...] K 466.0 ACUTE BRONCHITIS 03/08/2012 PATINO DO, AVLERIE K 466.0 ACUTE BRONCHITIS 03/08/2012 PATINO DO, VALERIE K 466.0 ACUTE BRONCHITIS 03/08/2012 PATINO DO, VALERIE K 466.0 ACUTE BRONCHITIS 03/08/2012 NAY FELICIANO APRN 466.0 ACUTE BRONCHITIS 03/08/2012 PATINO DO, VALERIE K 466.0 ACUTE BRONCHITIS 03/08/2012 PATINO DO, VALERIE K 466.0 ACUTE BRONCHITIS 03/08/2012 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, SHAHEEN E 466.0 ACUTE BRONCHITIS 03/08/2012 NADIA DDS, TLIA M 466.0 ACUTE BRONCHITIS 03/08/2012 PATINO DO, VALERIE K 466.0 ACUTE BRONCHITIS 03/08/2012 PATINO DO, VALERIE K 466.0 ACUTE BRONCHITIS 03/08/2012 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, SHAHEEN E 466.0 ACUTE BRONCHITIS 03/08/2012 SHYAM DPM, ROXY 466.0 ACUTE BRONCHITIS 03/08/2012 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, SHAHEEN E 466.0 ACUTE BRONCHITIS 03/08/2012 PATINO DO, VALERIE K 466.0 ACUTE BRONCHITIS 03/08/2012 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, SHAHEEN E 466.0 ACUTE BRONCHITIS 03/08/2012 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, SHAHEEN E 466.0 ACUTE BRONCHITIS 03/08/2012 PATINO [...] V03.82 Need For Vaccination Pneumococcal 04/12/2012 [facility] 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RIGO RinaldiE E V03.82 Need For Vaccination Pneumococcal [...] V03.82 Need For Vaccination Pneumococcal 04/12/2012 [facility] 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GADIEL RinaldiSIE E V03.82 [facility] Vaccination [facility]neum[facility]/12[facility]03.82 Need For Vaccination Pneumococcal 04/12/2012 PATINO DO, VALERIE K V03.82 Need For Vaccination Pneumococcal 04/12/2012 PATINO DO, VALERIE K V03.82 Need For Vaccination Pneumococcal 04/12/2012 PATINO DO, VALERIE K V03.82 Need For Vaccination Pneumococcal 04/12/2012 PATINO DO, VALERIE K V03.82 Need For Vaccination Pneumococcal 04/21/2012 SHAMIKA GOLDBERG MD 049.41 joint pain, localized in the right shoulder 04/21/2012 SHAMIKA GOLDBERG MD 780.4 lightheadedness 04/21/2012 SHAMIKA GOLDBERG MD 249.41 joint pain, localized in the right shoulder [...] DO, VALERIE K 780.4 lightheadedness 04/21/2012 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, SHAHEEN E 719.41 joint pain, localized in the right shoulder 04/21/2012 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, SHAHEEN E 780.4 lightheadedness 04/21/2012 NADIA DDS, [...] DO, VALERIE K 780.4 lightheadedness 04/21/2012 HELLWIG 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, SHAHEEN E 719.41 joint pain, localized in the right shoulder 04/21/2012 HELLWIG 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, SHAHEEN E 780.4 lightheadedness 04/21/2012 SHYAM DPM, ROXY 719.41 joint pain, localized in the right shoulder 04/21/2012 SHYAM DPM, ROXY 780.4 lightheadedness 04/21/2012 HELLWIG 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, SHAHEEN E 719.41 joint pain, localized in the right shoulder 04/21/2012 HELLWIG 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, SHAHEEN E 780.4 lightheadedness 04/21/2012 PATINO DO, VALERIE K 719.41 joint pain, localized in the right shoulder 04/21/2012 PATINO DO, VALERIE K 780.4 lightheadedness 04/21/2012 HELLWIG 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, SHAHEEN E 719.41 joint pain, localized in the right shoulder 04/21/2012 HELLWIG 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, SHAHEEN E 780.4 lightheadedness 04/21/2012 HELLWIG 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, SHAHEEN E 719.41 joint pain, localized in the right shoulder 04/21/2012 HELLWIG 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, SHAHEEN E 780.4 lightheadedness 04/21/2012 PATINO DO, [...] VALERIE K 386.10 VERTIGO, PERIPHERAL UNSPECIFIED 07/29/2012 [facility] E 386.10 VERTIGO, PERIPHERAL UNSPECIFIED [...] K 386.10 VERTIGO, PERIPHERAL UNSPECIFIED 07/29/2012 HE[employer]IG 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, SHAHEEN E 386.10 VERTIGO, PERIPHERAL UNSPECIFIED 07/29/2012 HELLWIG 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, SHAHEEN E 386.10 VERTIGO, PERIPHERAL UNSPECIFIED 07/29/2012 PATINO DO, VALERIE K 386.10 VERTIGO, PERIPHERAL UNSPECIFIED 07/29/2012 PATINO DO, VALERIE K 386.10 VERTIGO, PERIPHERAL UNSPECIFIED 07/29/2012 PAITNO DO, VALERIE K 386.10 VERTIGO, PERIPHERAL UNSPECIFIED [...] K 465.9 UPPER RESPIRATORY INFECTION 08/12/2012 HELLWIG 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, SHAHEEN E 465.9 UPPER RESPIRATORY INFECTION 08/12/2012 SHYAM DPM, ROXY 465.9 UPPER RESPIRATORY INFECTION 08/12/2012 HELLWIG 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, SHAHEEN E 465.9 UPPER RESPIRATORY INFECTION 08/12/2012 PATINO DO, VALERIE K 465.9 UPPER RESPIRATORY INFECTION 08/12/2012 HELLWIG 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, SHAHEEN E 465.9 UPPER RESPIRATORY INFECTION 08/12/2012 HELLWIG 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, SHAHEEN E 465.9 UPPER RESPIRATORY INFECTION 08/12/2012 [...] (3 YRS AND ABOVE, IM) 08/25/2012 ZAKIYAFIONA 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, SHAHEEN E V04.81 FLU DX (3 YRS AND ABOVE, IM) 08/25/2012 PATINO DO, VALERIE K V04.81 FLU DX (3 YRS AND ABOVE, IM) 08/25/2012 ZAKIYAFIONA 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, SHAHEEN E V04.81 FLU DX (3 YRS AND ABOVE, IM) 08/25/2012 HELLANNA 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, SHAHEEN E V04.81 FLU DX (3 YRS [...] BRONCHITIS NOS 09/01/2012 Ot 786.2 COUGH 09/22/2012 SHAMIKA GOLDBERG MD 729.5 pain in [...] 729.5 pain in the arms 09/22/2012 HELFIONA 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, SHAHEEN E 729.5 pain in the arms 09/22/2012 NADIA DDS, TILA M 729.5 pain in the arms 09/22/2012 PATINO DO, VALERIE K 729.5 pain in the arms 09/22/2012 PATINO DO, VALERIE K 729.5 pain in the arms 09/22/2012 IAN 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, SHAHEEN E 729.5 pain in the arms 09/22/2012 SHYAM DPMNICKIIN 729.5 pain in the arms 09/22/2012 HELLANNA 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, SHAHEEN E 729.5 pain in the arms 09/22/2012 PATINO DO, VALERIE K 729.5 pain in the arms 09/22/2012 HELLWIG 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, SHAHEEN E 729.5 pain in the arms 09/22/2012 HELLWIG 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, SHAHEEN E 729.5 pain in the arms [...] K 790.6 ABNORMAL LIVER FUNCTION TEST 12/21/2012 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 SHAHEEN E 790.6 ABNORMAL LIVER FUNCTION TEST 12/21/2012 SHYAM DPM, ROXY 790.6 ABNORMAL LIVER FUNCTION TEST 12/21/2012 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, SHAHEEN E 790.6 ABNORMAL LIVER FUNCTION TEST 12/21/2012 PATINO DO, VALERIE K 790.6 ABNORMAL LIVER FUNCTION TEST 12/21/2012 HELLWIG 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, SHAHEEN E 790.6 ABNORMAL LIVER FUNCTION TEST 12/21/2012 HELWIG 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, SHAHEEN E 790.6 ABNORMAL LIVER FUNCTION TEST [...] K 296.80 MO BIPOLAR NOS 12/28/2012 [facility] SHAHE[facility] E 296.80 MO BIPOLAR NOS 12/28/2012 NADIA DDS, TILA M 296.80 MO BIPOLAR NOS 12/28/2012 PATINO DO, VALERIE K 296.80 MO BIPOLAR NOS 12/28/2012 PATINO DO, VALERIE K 296.80 MO BIPOLAR NOS 12/28/2012 GADIEL SOSA APRNSIE E 296.80 MO BIPOLAR NOS 12/28/2012 SHYAM DPM, ROXY 296.80 MO BIPOLAR NOS 12/28/2012 [facility] APRNE E 296.80 MO BIPOLAR NOS [...] K 296.90 MOOD DISORDER NOS 03/09/2013 HELL[employer]IG 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, SHAHEEN E 296.90 MOOD DISORDER NOS 03/09/2013 NADIA RONSTILA M 296.90 MOOD DISORDER NOS 03/09/2013 PATINO DO, VALERIE K 296.90 MOOD DISORDER NOS 03/09/2013 PATINO DO, VALERIE K 296.90 MOOD DISORDER NOS 03/09/2013 HE[employer]IG 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, SHAHEEN E 296.90 MOOD DISORDER NOS 03/09/2013 ROXY HOWE DPM 296.90 MOOD DISORDER NOS 03/09/2013 HE[employer]IG 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, SHAHEEN E 296.90 MOOD DISORDER NOS 03/09/2013 PATINO DO, VALERIE K 296.90 MOOD DISORDER NOS 03/09/2013 HELL[employer]IG 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, SHAHEEN E 296.90 MOOD DISORDER NOS 03/09/2013 HELL[employer]IG 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, SHAHEEN E 296.90 MOOD DISORDER NOS 03/09/2013 [...] 380.10 INFECTIVE OTITIS EXTERNA UNSPECIFIED 03/23/2013 SUKUMAR OCONNRO, VALERIE K 461.9 SINUSITIS ACUTE 03/23/2013 SUKUMAR [...] 726.90 ENTHESOPATHY OF UNSPECIFIED SITE 03/23/2013 HE[employer]IG 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 SHAHEEN E 380.10 INFECTIVE OTITIS EXTERNA UNSPECIFIED 03/23/2013 HELL[employer]IG 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 SHAHEEN E 461.9 SINUSITIS ACUTE 03/23/2013 HELL[employer]IG 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 SHAHEEN E 726.90 ENTHESOPATHY OF UNSPECIFIED SITE 03/23/2013 SHYAM DPM, ROXY 380.10 INFECTIVE OTITIS EXTERNA UNSPECIFIED 03/23/2013 SHYAM DPM, ROXY 461.9 SINUSITIS ACUTE 03/23/2013 SHYAM DPM, ROXY 726.90 ENTHESOPATHY OF UNSPECIFIED SITE 03/23/2013 HE[employer]IG 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 SHAHEEN E 380.10 INFECTIVE OTITIS EXTERNA UNSPECIFIED 03/23/2013 HELLWIG 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GADIELSHAHEEN E 461.9 SINUSITIS ACUTE 03/23/2013 HE[employer]IG 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 SHAHEEN E 726.90 ENTHESOPATHY OF UNSPECIFIED SITE 03/23/2013 PATINO DO, VALERIE K 380.10 INFECTIVE OTITIS EXTERNA UNSPECIFIED 03/23/2013 PATINO DO, VALERIE K 461.9 SINUSITIS ACUTE 03/23/2013 PATINO DO, VALERIE K 726.90 ENTHESOPATHY OF UNSPECIFIED SITE 03/23/2013 HE[employer]IG 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 SHAHEEN E 380.10 INFECTIVE OTITIS EXTERNA UNSPECIFIED 03/23/2013 HELLWIG 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GADIELSHAHEEN E 461.9 SINUSITIS ACUTE 03/23/2013 HELL[employer]IG 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 SHAHEEN E 726.90 ENTHESOPATHY OF UNSPECIFIED SITE 03/23/2013 HELL[employer]IG 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 SHAHEEN E 380.10 INFECTIVE OTITIS EXTERNA UNSPECIFIED 03/23/2013 HELL[employer]IG 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 SHAHEEN E 461.9 SINUSITIS ACUTE 03/23/2013 SHAHEEN [...] K 300.02 AN GEN ANXIETY 04/05/2013 HELL[employer]IG 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, SHAHEEN E 300.02 AN GEN ANXIETY 04/05/2013 [...] E 300.02 AN GEN ANXIETY 04/05/2013 [facility] SHHA[facility] E 300.02 AN GEN ANXIETY 04/05/2013 PATINO [...] K 780.50 SLEEP DISTURBANCE, UNSPECIFIED 07/26/2013 HELL[facility]NA 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, SHAHEEN E 780.50 SLEEP DISTURBANCE, UNSPECIFIED 07/26/2013 NADIA DDS, TILA M 780.50 SLEEP DISTURBANCE, UNSPECIFIED 07/26/2013 PATINO DO, VALERIE K 780.50 SLEEP DISTURBANCE, UNSPECIFIED 07/26/2013 PATINO DO, VALERIE K 780.50 SLEEP DISTURBANCE, UNSPECIFIED 07/26/2013 HELLANNA LOAIZA SHAHEEN E 780.50 SLEEP DISTURBANCE, UNSPECIFIED 07/26/2013 SHYAM DPMROXY 780.50 SLEEP DISTURBANCE, UNSPECIFIED 07/26/2013 HE[employer]IG 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, SHAHEEN E 780.50 SLEEP DISTURBANCE, UNSPECIFIED 07/26/2013 PATINO DO, VALERIE K 780.50 SLEEP DISTURBANCE, UNSPECIFIED 07/26/2013 HE[employer]IG 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, SHAHEEN E 780.50 SLEEP DISTURBANCE, UNSPECIFIED 07/26/2013 HELL[employer]IG 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, SHAHEEN E 780.50 SLEEP DISTURBANCE, UNSPECIFIED 07/26/2013 [...] LOAIZA, SHAHEEN E 110.1 ONYCHOMYCOSIS 05/04/2014 HELL[employer]IG 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, SHAHEEN E 356.9 NEUROPATHY 05/04/2014 SHYAM DPM, ROXY 110.1 ONYCHOMYCOSIS 05/04/2014 SHYAM DPM, ROXY 356.9 NEUROPATHY 05/04/2014 AIN 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, SHAHEEN E 110.1 ONYCHOMYCOSIS 05/04/2014 HELLWIG 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, SHAHEEN E 356.9 NEUROPATHY 05/04/2014 PATINO DO, VALERIE K 110.1 ONYCHOMYCOSIS 05/04/2014 PATINO DO, VALERIE K 356.9 NEUROPATHY 05/04/2014 HELLWIG 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, SHAHEEN E 110.1 ONYCHOMYCOSIS 05/04/2014 HELLWIG 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, SHAHEEN E 356.9 NEUROPATHY 05/04/2014 HELLWIG 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, SHAHEEN E 110.1 ONYCHOMYCOSIS 05/04/2014 HELLWIG 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 SHAHEEN E 356.9 NEUROPATHY 05/04/2014 PATINO DO, VALERIE K 110.1 ONYCHOMYCOSIS 05/04/2014 PATINO DO, VALERIE K 356.9 NEUROPATHY 05/04/2014 PATINO DO, VALERIE K 110.1 ONYCHOMYCOSIS 05/04/2014 PATINO DO, VALERIE K 356.9 NEUROPATHY 05/04/2014 PATINO DO, VALERIE K 110.1 ONYCHOMYCOSIS 05/04/2014 PATINO DO, VALERIE K 356.9 NEUROPATHY 05/04/2014 PATINO DO, VALERIE K 110.1 ONYCHOMYCOSIS 05/04/2014 PATINO DO, VALERIE K 356.9 NEUROPATHY 06/15/2014 ELVA ÁLVAREZ DEBT AND BUDGET COUNSELOR Ot 845.00 SPRAIN OF ANKLE NOS 06/15/2014 ELVA ÁLVAREZ DEBT AND BUDGET COUNSELOR Ot E880.9 FALL ON STAIR/STEP NEC 07/15/2014 [...] TOE (ACQUIRED) 01/29/2015 VALERIE PATINO DO V72.31 SCRIBING MACHINE OPERATOR EXAM, ROUTINE 01/29/2015 VALERIE PATINO DO K V76.10 BREAST CANCER SCREENING 01/29/2015 VALERIE PATINO DO K V76.51 COLON CANCER SCREENING 01/29/2015 VALERIE PATINO DO V72.31 SCRIBING MACHINE OPERATOR EXAM, ROUTINE 01/29/2015 VALERIE PATINO DO K V76.10 BREAST CANCER SCREENING 01/29/2015 GADIEL PATINO DOA K V76.51 COLON CANCER SCREENING 01/29/2015 GADIEL PATINO DOA K V72.31 SCRIBING MACHINE OPERATOR EXAM, ROUTINE 01/29/2015 GADIEL PATINO DOA K [...] E849.0 02/12/2015 Ot E888.9 02/12/2015 SANDRA SALMERON DEBT AND BUDGET COUNSELOR Ot V76.12 02/14/2015 SANDRA SALMERON APRN Ot [...] E849.0 04/15/2015 Ot E888.9 04/15/2015 SANDRA SALMERON DEBT AND BUDGET COUNSELOR Ot V76.12 04/15/2015 SHAHEEN SOSA DEBT AND BUDGET COUNSELOR Ot 433.10 04/15/2015 SHAHEEN SOSA DEBT AND BUDGET COUNSELOR Ot 433.30 04/15/2015 SHAHEEN SOSA DEBT AND BUDGET COUNSELOR Ot 780.2 04/22/2015 AMBER HERNANDEZ MD Ot [...] HERNANDEZ MD Ot 414.01 CORONARY ATHEROSCLEROSIS OF [place] CORON 04/22/2015 AMBER HERNANDEZ MD Ot 530.81 ESOPHAGEAL REFLUX 04/22/2015 AMBER HERNANDEZ MD Ot 583.81 NEPHRITIS NOS IN OTH DIS 04/22/2015 AMBER HERNANDEZ MD Ot 585.9 CHRONIC KIDNEY DISEASE, UNSPECIFIED [...] DIS, UNSPEC, W CHR KD ST 05/22/2015 KEATN ADAMS MD Ot 414.01 CORONARY ATHEROSCLEROSIS OF [place] CORON 05/22/2015 KETAN ADAMS MD Ot 585.9 CHRONIC KIDNEY DISEASE, UNSPECIFIED 05/22/2015 KETAN ADAMS MD Ot 794.30 [facility] CARDIOVASC STUDY NOS 05/22/2015 KETAN ADAMS MD Ot V58.69 OTH MED,LT,CURRENT USE 08/26/2015 ELVA ÁLVAREZ DEBT AND BUDGET COUNSELOR Ot E11.65 TYPE 2 DIABETES MELLITUS WITH HYPERGLYCE 08/27/2015 Ot 722.52 08/27/2015 Ot V45.4 08/27/2015 Ot V81.5 08/27/2015 Ot 780.2 08/27/2015 Ot 780.2 08/27/2015 Ot 729.5 08/27/2015 Ot 908.9 08/27/2015 Ot E929.3 08/27/2015 Ot 726.10 08/27/2015 Ot 840.4 08/27/2015 Ot E000.8 08/27/2015 Ot E849.0 08/27/2015 Ot E888.9 08/27/2015 SANDRA SALMERON DEBT AND BUDGET COUNSELOR Ot V76.12 08/27/2015 SHAHEEN SOSA DEBT AND BUDGET COUNSELOR Ot 433.10 08/27/2015 SHAHEEN SOSA DEBT AND BUDGET COUNSELOR Ot 433.30 08/27/2015 SHAHEEN SOSA DEBT AND BUDGET COUNSELOR Ot 780.2 08/27/2015 KETAN ADAMS MD Ot 786.50 10/18/2015 Ot 722.52 10/18/2015 Ot V45.4 10/18/2015 Ot V81.5 10/18/2015 Ot 780.2 10/18/2015 Ot 780.2 10/18/2015 Ot 729.5 10/18/2015 Ot 908.9 10/18/2015 Ot E929.3 10/18/2015 Ot 726.10 10/18/2015 Ot 840.4 10/18/2015 Ot E000.8 10/18/2015 Ot E849.0 10/18/2015 Ot E888.9 10/18/2015 SANDRA SALMERON DEBT AND BUDGET COUNSELOR Ot V76.12 10/18/2015 SHAHEEN SOSA DEBT AND BUDGET COUNSELOR Ot 433.10 10/18/2015 SHAHEEN SOSA DEBT AND BUDGET COUNSELOR Ot 433.30 10/18/2015 SHAHEEN SOSA DEBT AND BUDGET COUNSELOR Ot 780.2 10/18/2015 BRYAN MC, KETAN Nolasco Ot 786.50 10/18/2015 JAC MC, DAVID James Ot K21.9 GASTRO-ESOPHAGEAL REFLUX DISEASE WITHOUT 10/18/2015 JAC MC, DAVID James Ot R07.9 CHEST PAIN, UNSPECIFIED 11/26/2015 ELVA ÁLVAREZ APRN Ot S80.12XA CONTUSION OF LEFT LOWER LEG, INITIAL ENC 11/26/2015 ELVA ÁLVAREZ DEBT AND BUDGET COUNSELOR Ot X58.XXXA EXPOSURE TO OTHER SPECIFIED FACTORS, INI 11/26/2015 ELVA ÁLVAREZ DEBT AND BUDGET COUNSELOR Ot Y99.8 OTHER EXTERNAL CAUSE STATUS 06/14/2016 [...] INITIAL 06/14/2016 ROHIT CAMPA DO Ot Y92.[address] [facility] NON-INSTIT[facility] (PRIVATE 06/14/2016 ROHIT CAMPA DO Ot [...] Ot E888.9 FALL NOS 07/14/2016 SANDRA SALMERON DEBT AND BUDGET COUNSELOR Ot V76.12 OTH SCREEN MAMMO-MALIGN NEOPLASM OF [place] 07/14/2016 SHAHEEN SOSA E DEBT AND BUDGET COUNSELOR Ot 433.10 CAROTID ARTERY OCCLUSION W O CEREBRAL IN 07/14/2016 SHAHEEN SOSA DEBT AND BUDGET COUNSELOR Ot 433.30 MULT BILTRAL ARTERY OCCLUSION WO CEREBRA 07/14/2016 SHAHEEN SOSA E DEBT AND BUDGET COUNSELOR Ot 780.2 SYNCOPE AND COLLAPSE 07/14/2016 BRYAN MC, KETAN Nolasco Ot 786.50 CHEST PAIN NOS 07/15/2016 DAIN MONTANEZ Ot E78.2 MIXED HYPERLIPIDEMIA 07/15/2016 DAIN MONTANEZ Ot I25.10 ATHSCL HEART DISEASE OF [place] CORONARY 07/15/2016 DAIN MONTANEZ Ot R42 DIZZINESS AND GIDDINESS 07/15/2016 DAIN MONTANEZ Ot R55 SYNCOPE AND COLLAPSE 07/28/2016 DAIN MONTANEZ Ot E78.2 MIXED HYPERLIPIDEMIA 07/28/2016 DAIN MONTANEZ Ot I25.10 ATHSCL HEART DISEASE OF [place] CORONARY 07/28/2016 DAIN MONTANEZ Ot R42 DIZZINESS [...] E888.9 FALL NOS 08/11/2016 FAVIOLA, SANDRA A DEBT AND BUDGET COUNSELOR Ot V76.12 OT SCREEN MAMMO-MALIGN NEOPLASM OF [place] 08/11/2016 SHAHEEN SOSA DEBT AND BUDGET COUNSELOR Ot 433.10 CAROTID ARTERY OCCLUSION W O CEREBRAL IN 08/11/2016 SHAHEEN SOSA DEBT AND BUDGET COUNSELOR Ot 433.30 MULT BILTRAL ARTERY OCCLUSION WO CEREBRA 08/11/2016 SHAHEEN SOSA DEBT AND BUDGET COUNSELOR Ot 780.2 SYNCOPE AND COLLAPSE 08/11/2016 BRYAN MC, KETAN Nolasco Ot 786.50 CHEST PAIN NOS 08/11/2016 DAIN MONTANEZ Ot E78.2 MIXED HYPERLIPIDEMIA 08/11/2016 DAIN MONTANEZ Ot I25.10 ATHSCL HEART DISEASE OF [place] CORONARY 08/11/2016 DAIN MONTANEZ Ot R42 DIZZINESS [...] E888.9 FALL NOS 11/03/2016 SANDRA SALMERON A DEBT AND BUDGET COUNSELOR Ot V76.12 OTH SCREEN MAMMO-MALIGN NEOPLASM OF [place] 11/03/2016 SHAHEEN SOSA E DEBT AND BUDGET COUNSELOR Ot 433.10 CAROTID ARTERY OCCLUSION W O CEREBRAL IN 11/03/2016 SHAHEEN SOSA E DEBT AND BUDGET COUNSELOR Ot 433.30 MULT BILTRAL ARTERY OCCLUSION WO CEREBRA 11/03/2016 SHAHEEN SOSA E DEBT AND BUDGET COUNSELOR Ot 780.2 SYNCOPE AND COLLAPSE 11/03/2016 BRYAN MC, KETAN Nolasco Ot 786.50 CHEST PAIN NOS 11/03/2016 DAIN MONTANEZ Ot E78.2 MIXED HYPERLIPIDEMIA 11/03/2016 DAIN OMNTANEZ Ot I25.10 ATHSCL HEART DISEASE OF [place] CORONARY 11/03/2016 DAIN MONTANEZ Ot R42 DIZZINESS AND GIDDINESS 11/03/2016 DAIN MONTANEZ Ot R55 SYNCOPE AND COLLAPSE 11/04/2016 DAIN MONTANEZ Ot E78.2 MIXED HYPERLIPIDEMIA 11/09/2016 DAIN MONTANEZ [...] MD Ot I25.10 ATHSCL HEART DISEASE OF [place] CORONARY 12/23/2016 JUDI RICHARDS MD Ot K21.9 [...] E888.9 FALL NOS 01/26/2017 SANDRA SALMERON A DEBT AND BUDGET COUNSELOR Ot V76.12 OTH SCREEN MAMMO-MALIGN NEOPLASM OF [place] 01/26/2017 SHAHEEN SOSA DEBT AND BUDGET COUNSELOR Ot 433.10 CAROTID ARTERY OCCLUSION W O CEREBRAL IN 01/26/2017 SHAHEEN SOSA DEBT AND BUDGET COUNSELOR Ot 433.30 MULT BILTRAL ARTERY OCCLUSION WO CEREBRA 01/26/2017 SHAHEEN SOSA DEBT AND BUDGET COUNSELOR Ot 780.2 SYNCOPE AND COLLAPSE 01/26/2017 BRYAN MC, KETAN Nolasco Ot 786.50 CHEST PAIN NOS 01/26/2017 DAIN MONTANEZ Ot E78.2 MIXED HYPERLIPIDEMIA 01/26/2017 DAIN MONTANEZ Ot I25.10 ATHSCL HEART DISEASE OF [place] CORONARY 01/26/2017 DAIN MONTANEZ Ot R42 DIZZINESS AND GIDDINESS 01/26/2017 DAIN MONTANEZ Ot R55 SYNCOPE AND COLLAPSE 01/26/2017 DAIN MONTANEZ Ot E78.2 MIXED HYPERLIPIDEMIA 01/26/2017 LINDA MANSFIELD DO Ot E11.9 TYPE 2 DIABETES MELLITUS WITHOUT COMPLIC 01/26/2017 LINDA MANSFIELD DO Ot K20.9 ESOPHAGITIS, UNSPECIFIED 01/26/2017 LINDA MANSFIELD DO Ot K29.70 GASTRITIS, UNSPECIFIED, WITHOUT BLEEDING 01/26/2017 LINDA MANSFIELD DO Ot Z79.4 CORRECTION (CURRENT) USE OF INSULIN 01/27/2017 LINDA MANSFIELD DO Ot E11.9 TYPE 2 DIABETES MELLITUS WITHOUT COMPLIC 01/27/2017 LINDA MANSFIELD DO Ot K20.9 ESOPHAGITIS, UNSPECIFIED 01/27/2017 LNIDA MANSFIELD DO Ot K29.70 GASTRITIS, UNSPECIFIED, WITHOUT BLEEDING 01/27/2017 MANSFIELD DO, LINDA D Ot Z79.4 DIRECTOR PRODUCT DEVELOPMENT (CURRENT) USE OF INSULIN 02/01/2017 MANSFIELD DO, LINDA D Ot E11.9 TYPE 2 DIABETES MELLITUS WITHOUT COMPLIC 02/01/2017 MANSFIELD DO, LINDA D Ot K20.9 ESOPHAGITIS, UNSPECIFIED 02/01/2017 MANSFIELD DO, LINDA D Ot K29.70 GASTRITIS, UNSPECIFIED, WITHOUT BLEEDING 02/01/2017 MANSFIELD DO, LINDA D Ot Z79.4 DIRECTOR PRODUCT DEVELOPMENT (CURRENT) USE OF INSULIN 02/04/2017 MANSFIELD DO, LINDA D Ot E11.9 TYPE 2 DIABETES MELLITUS WITHOUT COMPLIC 02/04/2017 MANSFIELD DO, LINDA D Ot K20.9 ESOPHAGITIS, UNSPECIFIED 02/04/2017 MANSFIELD DO, LINDA D Ot K29.70 GASTRITIS, UNSPECIFIED, WITHOUT BLEEDING 02/04/2017 MANSFIELD DO, LINDA D Ot Z79.4 CORRECTION (CURRENT) USE OF INSULIN 02/06/2017 MANSFIELD DO, LINDA D Ot E11.9 TYPE 2 DIABETES MELLITUS WITHOUT COMPLIC 02/06/2017 MANSFIELD DO, LINDA D Ot K20.9 ESOPHAGITIS, UNSPECIFIED 02/06/2017 MANSFIELD DO, LINDA D Ot K29.70 GASTRITIS, UNSPECIFIED, WITHOUT BLEEDING 02/06/2017 MANSFIELD DO, LINDA D Ot Z79.4 CORRECTION (CURRENT) USE OF INSULIN 02/10/2017 Ot 780.2 [...] Ot E888.9 FALL NOS 02/10/2017 SANDRA SALMERON DEBT AND BUDGET COUNSELOR Ot V76.12 OTH SCREEN MAMMO-MALIGN NEOPLASM OF [place] 02/10/2017 SHAHEEN SOSA DEBT AND BUDGET COUNSELOR Ot 433.10 CAROTID ARTERY OCCLUSION W O CEREBRAL IN 02/10/2017 SHAHEEN SOSA DEBT AND BUDGET COUNSELOR Ot 433.30 MULT BILTRAL ARTERY OCCLUSION WO CEREBRA 02/10/2017 SHAHEEN SOSA APRN Ot 780.2 SYNCOPE AND COLLAPSE 02/10/2017 BRYAN MC, KETAN Nolasco Ot 786.50 CHEST PAIN NOS 02/10/2017 DAIN MONTANEZ Ot E78.2 MIXED HYPERLIPIDEMIA 02/10/2017 DAIN MONTANEZ Ot I25.10 ATHSCL HEART DISEASE OF [place] CORONARY 02/10/2017 DAIN MONTANEZ Ot R42 DIZZINESS AND GIDDINESS 02/10/2017 DAIN MONTANEZ Ot R55 SYNCOPE AND COLLAPSE 02/10/2017 DAIN MONTANEZ Ot E78.2 MIXED HYPERLIPIDEMIA 02/19/2017 OSWALDO ALTAMIRANO DEBT AND BUDGET COUNSELOR Ot Z12.31 ENCNTR SCREEN MAMMOGRAM FOR MALIGNANT NE 03/09/2017 OSWALDO ALTAMIRANO DEBT AND BUDGET COUNSELOR Ot N64.89 OTHER SPECIFIED DISORDERS OF BREAST 03/14/2017 OSWALDO ALTAMIRANO DEBT AND BUDGET COUNSELOR Ot N64.89 OTHER SPECIFIED DISORDERS OF BREAST 03/19/2017 OSWALDO ALTAMIRANO DEBT AND BUDGET COUNSELOR Ot N64.89 OTHER SPECIFIED DISORDERS OF BREAST [...] OTHER EXTERNAL CAUSE STATUS 09/14/2017 OSWALDO ALTAMIRANO DEBT AND BUDGET COUNSELOR Ot N64.89 OTHER SPECIFIED DISORDERS OF BREAST 09/24/2017 OSWALDO ALTAMIRANO DEBT AND BUDGET COUNSELOR Ot N64.89 OTHER SPECIFIED DISORDERS OF BREAST 11/10/2017 OSWALDO ALTAMIRANO DEBT AND BUDGET COUNSELOR Ot E11.42 TYPE 2 DIABETES MELLITUS WITH DIABETIC P 11/10/2017 OSWALDO ALTAMIRANO DEBT AND BUDGET COUNSELOR Ot N28.9 DISORDER OF KIDNEY AND URETER, UNSPECIFI 03/29/2018 ANIBAL SALMERONALCIDES Ford DEBT AND BUDGET COUNSELOR Ot V76.12 OTH SCREEN MAMMO-MALIGN NEOPLASM OF [place] 03/29/2018 SHAHEEN SOSA DEBT AND BUDGET COUNSELOR Ot 433.10 CAROTID ARTERY OCCLUSION W O CEREBRAL IN 03/29/2018 SHAHEEN SOSA DEBT AND BUDGET COUNSELOR Ot 433.30 MULT BILTRAL ARTERY OCCLUSION WO CEREBRA 03/29/2018 SHAHEEN SOSA DEBT AND BUDGET COUNSELOR Ot 780.2 SYNCOPE AND COLLAPSE 03/29/2018 BRYAN MC, KETAN Nolasco Ot 786.50 CHEST PAIN NOS 03/29/2018 DAIN MONTANEZ Ot E78.2 MIXED HYPERLIPIDEMIA 03/29/2018 DAIN MONTANEZ Ot I25.10 ATHSCL HEART DISEASE OF [place] CORONARY 03/29/2018 DAIN MONTANEZ Ot R42 DIZZINESS AND GIDDINESS 03/29/2018 DAIN MONTANEZ Ot R55 SYNCOPE AND COLLAPSE 03/29/2018 DAIN MONTANEZ Ot E78.2 MIXED HYPERLIPIDEMIA 03/29/2018 SOWALDO ALTAMIRANO DEBT AND BUDGET COUNSELOR Ot Z12.31 ENCNTR SCREEN MAMMOGRAM FOR MALIGNANT NE 03/29/2018 OSAWLDO ALTAMIRANO DEBT AND BUDGET COUNSELOR Ot N64.89 OTHER SPECIFIED DISORDERS OF BREAST 03/29/2018 JUDI RICHARDS MD Ot M54.2 CERVICALGIA 03/29/2018 JUDI RICHARDS MD, Ot R51 HEADACHE 03/29/2018 JUDI RICHARDS MD, Ot S09.90XA UNSPECIFIED INJURY OF HEAD, INITIAL ENCO 03/29/2018 JUDI RICHARDS MD, Ot X58.XXXA EXPOSURE TO OTHER SPECIFIED FACTORS, INI 03/29/2018 JUDI RICHARDS MD N Ot Y99.8 OTHER EXTERNAL CAUSE STATUS 03/29/2018 ADARSHOSWALDO Navya DEBT AND BUDGET COUNSELOR Ot N64.89 OTHER SPECIFIED DISORDERS OF BREAST 03/29/2018 ADARSHOSWALDO Navya DEBT AND BUDGET COUNSELOR Ot E11.42 TYPE 2 DIABETES MELLITUS WITH DIABETIC P 03/29/2018 ADARSHOSWALDO Navya DEBT AND BUDGET COUNSELOR Ot N28.9 DISORDER OF KIDNEY AND URETER, UNSPECIFI 03/30/2018 MARYLOU VAUGHN MD Ot D50.9 IRON DEFICIENCY ANEMIA, UNSPECIFIED 03/30/2018 JOHANA MC, MARYLOU Ot E55.9 VITAMIN D DEFICIENCY, UNSPECIFIED 03/30/2018 MARYLOU VAUGHN MD Ot I12.9 HYPERTENSIVE CHRONIC KIDNEY DISEASE W ST 03/30/2018 MARYLOU VAUGHN MD Ot N18.3 CHRONIC KIDNEY DISEASE, STAGE 3 (MODERAT 04/08/2018 MARYLOU VAUGHN MD Ot D50.9 IRON DEFICIENCY ANEMIA, UNSPECIFIED 04/08/2018 MARYLOU VAUGHN MD Ot E55.9 VITAMIN D DEFICIENCY, UNSPECIFIED 04/08/2018 MARYLOU VAUGHN MD Ot I12.9 HYPERTENSIVE CHRONIC KIDNEY DISEASE W ST 04/08/2018 MARYLOU VAUGHN MD Ot N18.3 CHRONIC KIDNEY DISEASE, STAGE 3 (MODERAT 04/22/2018 SHAHID FLORES MD Ot E11.40 TYPE 2 DIABETES MELLITUS WITH DIABETIC N 04/22/2018 SHAHID FLORES MD Ot E78.00 PURE HYPERCHOLESTEROLEMIA, UNSPECIFIED 04/22/2018 SHAHID FLORES MD Ot F31.9 BIPOLAR DISORDER, UNSPECIFIED 04/22/2018 SHAHID FLORES MD Ot F41.9 ANXIETY DISORDER, UNSPECIFIED 04/22/2018 SHAHID FLORES MD Ot K21.9 GASTRO-ESOPHAGEAL REFLUX DISEASE WITHOUT 04/22/2018 SHAHID FLORES MD Ot R07.89 OTHER CHEST PAIN 04/22/2018 SHAHID FLORES MD Ot Z79.4 CORRECTION (CURRENT) USE OF INSULIN 04/22/2018 SHAHID FLORES MD, Ot Z79.82 DIRECTOR PRODUCT DEVELOPMENT (CURRENT) USE OF ASPIRIN 04/22/2018 SHAHID FLORES MD Ot Z87.448 PERSONAL HISTORY OF OTHER DISEASES OF UR 04/22/2018 SHAHID FLORES MD Ot Z87.891 PERSONAL HISTORY OF NICOTINE DEPENDENCE 04/22/2018 SHAHID FLORES MD Ot Z88.5 ALLERGY STATUS TO NARCOTIC AGENT STATUS 04/22/2018 SHAHID FLORES MD Ot Z90.710 ACQUIRED ABSENCE OF BOTH CERVIX AND UTER 04/22/2018 SHAHID FLORES MD Ot Z90.89 ACQUIRED ABSENCE OF OTHER ORGANS 04/25/2018 SHAHID FLORES MD Ot E11.40 TYPE 2 DIABETES MELLITUS WITH DIABETIC N 04/25/2018 SHAHID FLORES MD Ot E78.00 PURE HYPERCHOLESTEROLEMIA, UNSPECIFIED 04/25/2018 SHAHID FLORES MD Ot F31.9 BIPOLAR DISORDER, UNSPECIFIED 04/25/2018 SHAHID FLORES MD Ot F41.9 ANXIETY DISORDER, UNSPECIFIED 04/25/2018 SHAHID FLORES MD Ot K21.9 GASTRO-ESOPHAGEAL REFLUX DISEASE WITHOUT 04/25/2018 SHAHID FLROES MD Ot R07.89 OTHER CHEST PAIN 04/25/2018 SHAHID FLORES MD Ot Z79.4 DIRECTOR PRODUCT DEVELOPMENT (CURRENT) USE OF INSULIN 04/25/2018 SHAHID FLORES MD Ot Z79.82 DIRECTOR PRODUCT DEVELOPMENT (CURRENT) USE OF ASPIRIN 04/25/2018 SHAHID FLORES MD Ot Z87.448 PERSONAL HISTORY OF OTHER DISEASES OF UR 04/25/2018 SHAHID FLORES MD Ot Z87.891 PERSONAL HISTORY OF NICOTINE DEPENDENCE 04/25/2018 SHAHID FLORES MD Ot Z88.5 ALLERGY STATUS TO NARCOTIC AGENT STATUS 04/25/2018 SHAHID FLORES MD Ot Z90.710 ACQUIRED ABSENCE OF BOTH CERVIX AND UTER 04/25/2018 SHAHID FLORES MD Ot Z90.89 ACQUIRED ABSENCE OF OTHER ORGANS 05/30/2018 SANDRA SALMERON APRN Ot V76.12 OT SCREEN MAMMO-MALIGN NEOPLASM OF [place] 05/30/2018 SHAHEEN SOSA APRN Ot 433.10 CAROTID ARTERY OCCLUSION W O CEREBRAL IN 05/30/2018 SHAHEEN SOSA APRN Ot 433.30 MULT BILTRAL ARTERY OCCLUSION WO CEREBRA 05/30/2018 SHAHEEN SOSA APRN Ot 780.2 SYNCOPE AND COLLAPSE 05/30/2018 BRYAN MC, KETAN Nolasco Ot 786.50 CHEST PAIN NOS 05/30/2018 DAIN MONTANEZ Ot E78.2 MIXED HYPERLIPIDEMIA 05/30/2018 DAIN MONTANEZ Ot I25.10 ATHSCL HEART DISEASE OF [place] CORONARY 05/30/2018 DAIN MONTANEZ Ot R42 DIZZINESS AND GIDDINESS 05/30/2018 DAIN MONTANEZ Ot R55 SYNCOPE AND COLLAPSE 05/30/2018 DAIN MONTANEZ Ot E78.2 MIXED HYPERLIPIDEMIA 05/30/2018 OSWALDO ALTAMIRANO APRN Ot Z12.31 ENCNTR SCREEN MAMMOGRAM FOR MALIGNANT NE 05/30/2018 OSWALDO ALTAMIRANO APRN Ot N64.89 OTHER SPECIFIED DISORDERS OF BREAST 05/30/2018 JUDI RICHARDS MD Ot M54.2 CERVICALGIA 05/30/2018 JUDI RICHARDS MD Ot R51 HEADACHE 05/30/2018 JUDI RICHARDS MD Ot S09.90XA UNSPECIFIED INJURY OF HEAD, INITIAL ENCO 05/30/2018 JUDI RICHARDS MD Ot X58.XXXA EXPOSURE TO OTHER SPECIFIED FACTORS, INI 05/30/2018 JUDI RICHARDS MD Ot Y99.8 OTHER EXTERNAL CAUSE STATUS 05/30/2018 OSWALDO ALTAMIRANO APRN Ot N64.89 OTHER SPECIFIED DISORDERS OF BREAST 05/30/2018 OSWALDO ALTAMIRANO APRN Ot E11.42 TYPE 2 DIABETES MELLITUS WITH DIABETIC P 05/30/2018 OSWALDO ALTAMIRANO APRN Ot N28.9 DISORDER OF KIDNEY AND URETER, UNSPECIFI 05/30/2018 MARYLOU VAUGHN MD Ot D50.9 IRON DEFICIENCY ANEMIA, UNSPECIFIED 05/30/2018 MARYLOU VAUGHN MD Ot E55.9 VITAMIN D DEFICIENCY, UNSPECIFIED 05/30/2018 MARYLOU VAUGHN MD Ot I12.9 HYPERTENSIVE CHRONIC KIDNEY DISEASE W ST 05/30/2018 MARYLOU VAUGHN MD Ot N18.3 CHRONIC KIDNEY DISEASE, STAGE 3 (MODERAT 05/30/2018 SANDRA SALMERON DEBT AND BUDGET COUNSELOR Ot V76.12 OTH SCREEN MAMMO-MALIGN NEOPLASM OF [place] 05/30/2018 SHAHEEN SOSA DEBT AND BUDGET COUNSELOR Ot 433.10 CAROTID ARTERY OCCLUSION W O CEREBRAL IN 05/30/2018 SHAHEEN SOSA DEBT AND BUDGET COUNSELOR Ot 433.30 MULT BILTRAL ARTERY OCCLUSION WO CEREBRA 05/30/2018 SHAHEEN SOSA APRN Ot 780.2 SYNCOPE AND COLLAPSE 05/30/2018 BRYAN MC, KETAN Nolasco Ot 786.50 CHEST PAIN NOS 05/30/2018 DAIN MONTANEZ Ot E78.2 MIXED HYPERLIPIDEMIA 05/30/2018 DAIN MONTANEZ Ot I25.10 ATHSCL HEART DISEASE OF [place] CORONARY 05/30/2018 DIAN MONTANEZ Ot R42 DIZZINESS AND GIDDINESS 05/30/2018 DAIN MONTANEZ Ot R55 SYNCOPE AND COLLAPSE 05/30/2018 DAIN MONTANEZ Ot E78.2 MIXED HYPERLIPIDEMIA 05/30/2018 OSWALDO ALTAMIRANO APRN Ot Z12.31 ENCNTR SCREEN MAMMOGRAM FOR MALIGNANT NE 05/30/2018 OSWALDO ALTAMIRANO APRN Ot N64.89 OTHER SPECIFIED DISORDERS OF BREAST 05/30/2018 JUDI RIHCARDS MD Ot M54.2 CERVICALGIA 05/30/2018 JUDI RICHARDS MD Ot R51 HEADACHE 05/30/2018 JUDI RICHARDS MD Ot S09.90XA UNSPECIFIED INJURY OF HEAD, INITIAL ENCO 05/30/2018 JUDI RICHARDS MD Ot X58.XXXA EXPOSURE TO OTHER SPECIFIED FACTORS, INI 05/30/2018 JUDI RICHARDS MD Ot Y99.8 OTHER EXTERNAL CAUSE STATUS 05/30/2018 OSWALDO ALTAMIRANO APRN Ot N64.89 OTHER SPECIFIED DISORDERS OF BREAST 05/30/2018 OSWALDO ALTAMIRANO DEBT AND BUDGET COUNSELOR Ot E11.42 TYPE 2 DIABETES MELLITUS WITH DIABETIC P 05/30/2018 OSWALDO ALTAMIRANO JOSSE Ot N28.9 DISORDER OF KIDNEY AND URETER, UNSPECIFI 05/30/2018 MARYLOU VAUGHN MD Ot D50.9 IRON DEFICIENCY ANEMIA, UNSPECIFIED 05/30/2018 MARYLOU VAUGHN MD Ot E55.9 VITAMIN D DEFICIENCY, UNSPECIFIED 05/30/2018 MARYLOU VAUGHN MD Ot I12.9 HYPERTENSIVE CHRONIC KIDNEY DISEASE W ST 05/30/2018 MARYLOU VAUGHN MD Ot N18.3 CHRONIC KIDNEY DISEASE, STAGE 3 (MODERAT 08/26/2018 MARYLOU VAUGHN MD Ot D50.9 IRON DEFICIENCY ANEMIA, UNSPECIFIED 08/26/2018 MARYLOU VAUGHN MD Ot E55.9 VITAMIN D DEFICIENCY, UNSPECIFIED 08/26/2018 MARYLOU VAUGHN MD Ot E87.2 ACIDOSIS 08/26/2018 MARYLOU VAUGHN MD Ot I12.9 HYPERTENSIVE CHRONIC KIDNEY DISEASE W ST 08/26/2018 MARYLOU VAUGHN MD Ot N18.3 CHRONIC KIDNEY DISEASE, STAGE 3 (MODERAT 08/26/2018 MARYLOU VAUGHN MD Ot R82.90 UNSPECIFIED ABNORMAL FINDINGS IN URINE 09/02/2018 MARYLOU VAUGHN MD Ot D50.9 IRON DEFICIENCY ANEMIA, UNSPECIFIED 09/02/2018 MARYLOU VAUGHN MD Ot E55.9 VITAMIN D DEFICIENCY, UNSPECIFIED 09/02/2018 MARYLOU VAUGHN MD Ot E87.2 ACIDOSIS 09/02/2018 MARYLOU VAUGHN MD Ot I12.9 HYPERTENSIVE CHRONIC KIDNEY DISEASE W ST 09/02/2018 MARYLOU VAUGHN MD Ot N18.3 CHRONIC KIDNEY DISEASE, STAGE 3 (MODERAT 09/02/2018 MARYLOU VAUGHN MD Ot R82.90 UNSPECIFIED ABNORMAL FINDINGS IN URINE 10/21/2018 GEOVANI LUTZ Ot E11.40 TYPE 2 DIABETES MELLITUS WITH DIABETIC N 10/21/2018 GEOVANI LUTZ Ot E78.00 PURE HYPERCHOLESTEROLEMIA, UNSPECIFIED 10/21/2018 GEOVANI LUTZ Ot F31.9 BIPOLAR DISORDER, UNSPECIFIED 10/21/2018 BERNOT, GEOVANI Ot F41.9 ANXIETY DISORDER, UNSPECIFIED 10/21/2018 BERNKYLIE GEOVANI Ot K21.9 GASTRO-ESOPHAGEAL REFLUX DISEASE WITHOUT 10/21/2018 BERNOT, GEOVANI Ot R10.11 RIGHT UPPER QUADRANT PAIN 10/21/2018 BERNKYLIE GEOVANI Ot R74.8 ABNORMAL LEVELS OF OTHER SERUM ENZYMES 10/21/2018 BERNKYLIE GEOVANI Ot Z79.4 CORRECTION (CURRENT) USE OF INSULIN 10/21/2018 BERNKYLIE, GEOVANI Ot Z79.51 DIRECTOR PRODUCT DEVELOPMENT (CURRENT) USE OF INHALED STERO 10/21/2018 BERNKYLIE, GEOVANI Ot Z79.82 CORRECTION (CURRENT) USE OF ASPIRIN 10/21/2018 BERNKYLIE, GEOVANI Ot Z82.49 FAMILY HX OF ISCHEM HEART DIS AND OTH DI 10/21/2018 BERNKYLIE GEOVANI Ot Z87.19 PERSONAL HISTORY OF OTHER DISEASES OF TH 10/21/2018 BERNSAADIA ESPINALIS Ot Z87.448 PERSONAL HISTORY OF OTHER DISEASES OF UR 10/21/2018 BERNKYLIE, GEOVANI Ot Z87.891 PERSONAL HISTORY OF NICOTINE DEPENDENCE 10/21/2018 BERNKYLIE, GEOVANI Ot Z88.5 ALLERGY STATUS TO NARCOTIC AGENT STATUS 10/21/2018 BERNKYLIE, GEOVANI Ot Z90.49 ACQUIRED ABSENCE OF OTHER SPECIFIED PART 10/21/2018 BERNOT, GEOVANI Ot Z90.710 ACQUIRED ABSENCE OF BOTH CERVIX AND UTER 10/21/2018 BERNKYLIE, GEOVANI Ot Z98.890 OTHER SPECIFIED POSTPROCEDURAL STATES Procedures Code Description [place] [address] XRAY HUMERUS RIGHT 2 VIEWS 09/22/2012 95996 MRI EXTREMITY JOINT, UPPER RIGHT, W/O CONTRAST 09/27/2012 Orthopedi Mason Zarate 09/27/2012 44487 ROUTINE VENIPUNCTURE 12/21/2012 30560 A1C (IN-HOUSE) 12/21/2012 12918 LIVER PANEL (LFT) 12/21/2012 25689 ROUTINE VENIPUNCTURE 01/17/2013 29664 LIVER PANEL (LFT) 01/17/2013 47476 VITAMIN D 25-HYDROXY (D2,D3 , TOTAL) 01/17/2013 57534 TSH 01/17/2013 60430 UA LONG DIP 02/28/2013 Neurology Yousuf Chadwick 02/28/2013 87962 A1C (IN-HOUSE) 03/30/2013 04021 MICRO ALBUMIN-IN HOUSE 03/30/2013 71119 STREP A (IN-HOUSE) 07/17/2013 PHYSICAL OCCUPATIONAL THERAPY, 07/27/2013 99166 SLEEP STUDY 07/28/2013 66234 A1C (IN-HOUSE) 08/03/2013 PODIATRY ROXY HOWE 08/24/2013 44418 A1C (IN-HOUSE) 11/13/2013 08436 MICRO ALBUMIN-IN HOUSE 11/13/2013 80785 UA LONG DIP 11/13/2013 83383 A1C (IN-HOUSE) 03/05/2014 13325 XRAY ANKLE R COMP MIN, 3 VIEWS 03/19/2014 PODIATRY ROXY HOWE 03/19/2014 68995 ROUTINE VENIPUNCTURE 06/18/2014 37292 A1C (IN-HOUSE) 06/18/2014 93104 CMP 06/18/2014 16315 LIPID PANEL 06/18/2014 81402 TSH 06/18/2014 43311 CBC 06/18/2014 Otolaryng Nay Rowan 08/15/2014 21989 A1C (IN-HOUSE) 09/17/2014 30273 INFLUENZA A & B (IN-HOUSE) 11/03/2014 31430 A1C (IN-HOUSE) 12/24/2014 78196 HEMOGLOBIN (IN-HOUSE) 12/24/2014 01819 MICRO ALBUMIN-IN HOUSE 12/24/2014 83425 MAMMOGRAM, SCREENING 01/29/2015 GENERAL Linda Gonzales 01/29/2015 52266 HOLTER MONITOR (OUTPATIENT) 02/07/2015 63740 US CAROTID DOPPLER 02/07/2015 Results Test Result [...] LDL Cholesterol Calc 81 mg/dL 0-99 Thyroid [place] Profile - 05/13/17 09:29 TSH 2.410 uIU/mL [...] VITAMIN D 25-HYDROXY (TOTAL) 17.0 % 30.0-100.0 Complete blood count (CBC) with automated white blood cell (WBC) differential - 04/21/18 21:55 Blood leukocytes automated count (number/volume) 8.9 10*3/uL 4.3-11.0 Blood erythrocytes automated count (number/volume) 3.93 10*6/uL 4.35-5.85 Venous blood hemoglobin measurement (mass/volume) 12.2 g/dL 11.5-16.0 Blood hematocrit (volume fraction) 36 % 35-52 Automated erythrocyte mean corpuscular volume 92 [foz_us] 80-99 Automated erythrocyte mean corpuscular hemoglobin (mass per erythrocyte) 31 pg 25-34 Automated erythrocyte mean corpuscular hemoglobin concentration measurement ( mass/volume) 34 g/dL 32-36 Automated erythrocyte distribution width ratio 14.4 % 10.0-14.5 Automated blood platelet count (count/volume) 234 10*3/uL 130-400 Automated blood platelet mean volume measurement 10.0 [foz_us] 7.4-10.4 Automated blood neutrophils/100 leukocytes 60 % 42-75 Automated blood lymphocytes/100 leukocytes 27 % 12-44 Blood monocytes/100 leukocytes 8 % 0-12 Automated blood eosinophils/100 leukocytes 5 % 0-10 Automated blood basophils/100 leukocytes 1 % 0-10 Blood neutrophils automated count (number/volume) 5.4 10*3 1.8-7.8 Blood lymphocytes automated count (number/volume) 2.4 10*3 1.0-4.0 Blood monocytes automated count (number/volume) 0.7 10*3 0.0-1.0 Automated eosinophil count 0.4 10*3/uL 0.0-0.3 Automated blood basophil count (count/volume) 0.1 10*3/uL 0.0-0.1 PT panel in platelet poor plasma by coagulation assay - 04/21/18 21:55 Prothrombin time (PT) in platelet poor plasma by coagulation assay 14.0 s 12.2-14.7 INR in platelet poor plasma or blood by coagulation assay 1.1 0.8-1.4 Activated partial thromboplastin time (aPTT) in platelet poor plasma bycoagulation assay - 04/21/18 21:55 Activated partial thromboplastin time (aPTT) in platelet poor plasma bycoagulation assay 30 s 24-35 Comprehensive metabolic panel - 04/21/18 21:55 Serum or plasma sodium measurement (moles/volume) 136 mmol/L 135-145 Serum or plasma potassium measurement (moles/volume) 3.4 mmol/L 3.6-5.0 Serum or plasma chloride measurement (moles/volume) 105 mmol/L 98-107 Carbon dioxide 19 mmol/L 21-32 Serum or plasma anion gap determination (moles/volume) 12 mmol/L 5-14 Serum or plasma urea nitrogen measurement (mass/volume) 15 mg/dL 7-18 Serum or plasma creatinine measurement (mass/volume) 1.41 mg/dL 0.60-1.30 Serum or plasma urea nitrogen/creatinine mass ratio 11 NRG Serum or plasma creatinine measurement with calculation of estimated glomerular filtration rate 39 NRG Serum or plasma glucose measurement (mass/volume) 286 mg/dL 70-105 Serum or plasma calcium measurement (mass/volume) 9.3 mg/dL 8.5-10.1 Serum or plasma total bilirubin measurement (mass/volume) 0.5 mg/dL 0.1-1.0 Serum or plasma alkaline phosphatase measurement (enzymatic activity/volume) 109 U/L 40-136 Serum or plasma aspartate aminotransferase measurement (enzymatic activity/ volume) 38 U/L 5-34 Serum or plasma alanine aminotransferase measurement (enzymatic activity/volume ) 39 U/L 0-55 Serum or plasma protein measurement (mass/volume) 8.5 g/dL 6.4-8.2 Serum or plasma albumin measurement (mass/volume) 4.0 g/dL 3.2-4.5 Magnesium - 04/21/18 21:55 Magnesium 2.4 mg/dL 1.8-2.4 Serum or plasma troponin i.cardiac measurement (mass/volume) - 04/21/18 21:55 Serum or plasma troponin i.cardiac measurement (mass/volume) < ng/ mL <0.30 Myoglobin, serum - 04/21/18 21:55 Myoglobin, serum 33.1 ng/mL 10.0-92.0 Serum or plasma troponin i.cardiac measurement (mass/volume) - 04/21/18 23:24 Serum or plasma troponin i.cardiac measurement (mass/volume) < ng/ mL <0.30 MICROALBUMIN/CREATININE RATIO, URINE - 06/17/18 14:32 CREATININE, RANDOM URINE 78 mg/dL 20-320 MICROALBUMIN 0.4 mg/dL See Note: MICROALBUMIN/CREATININE RATIO, RANDOM URINE 5 mcg/mg creat <30 Complete blood count (CBC) with automated white blood cell (WBC) differential - 08/23/18 09:35 Blood leukocytes automated count (number/volume) 8.0 10*3/uL 4.3-11.0 Blood erythrocytes automated count (number/volume) 4.34 10*6/uL 4.35-5.85 Venous blood hemoglobin measurement (mass/volume) 13.7 g/dL 11.5-16.0 Blood hematocrit (volume fraction) 40 % 35-52 Automated erythrocyte mean corpuscular volume 93 [foz_us] 80-99 Automated erythrocyte mean corpuscular hemoglobin (mass per erythrocyte) 32 pg 25-34 Automated erythrocyte mean corpuscular hemoglobin concentration measurement ( mass/volume) 34 g/dL 32-36 Automated erythrocyte distribution width ratio 12.7 % 10.0-14.5 Automated blood platelet count (count/volume) 224 10*3/uL 130-400 Automated blood platelet mean volume measurement 10.1 [foz_us] 7.4-10.4 Automated blood neutrophils/100 leukocytes 57 % 42-75 Automated blood lymphocytes/100 leukocytes 22 % 12-44 Blood monocytes/100 leukocytes 7 % 0-12 Automated blood eosinophils/100 leukocytes 13 % 0-10 Automated blood basophils/100 leukocytes 1 % 0-10 Blood neutrophils automated count (number/volume) 4.6 10*3 1.8-7.8 Blood lymphocytes automated count (number/volume) 1.7 10*3 1.0-4.0 Blood monocytes automated count (number/volume) 0.6 10*3 0.0-1.0 Automated eosinophil count 1.1 10*3/uL 0.0-0.3 Automated blood basophil count (count/volume) 0.1 10*3/uL 0.0-0.1 Serum or plasma renal function panel (Na, K, Cl, CO2, BUN, Cr, glucose,Ca, phos , alb) - 08/23/18 09:35 Serum or plasma sodium measurement (moles/volume) 139 mmol/L 135-145 Serum or plasma potassium measurement (moles/volume) 3.7 mmol/L 3.6-5.0 Serum or plasma chloride measurement (moles/volume) 105 mmol/L 98-107 Carbon dioxide 23 mmol/L 21-32 Serum or plasma anion gap determination (moles/volume) 11 mmol/L 5-14 Serum or plasma urea nitrogen measurement (mass/volume) 6 mg/dL 7-18 Serum or plasma creatinine measurement (mass/volume) 1.28 mg/dL 0.60-1.30 Serum or plasma urea nitrogen/creatinine mass ratio 5 NRG Serum or plasma creatinine measurement with calculation of estimated glomerular filtration rate 43 NRG Serum or plasma glucose measurement (mass/volume) 181 mg/dL 70-105 Serum or plasma calcium measurement (mass/volume) 9.8 mg/dL 8.5-10.1 Serum or plasma albumin measurement (mass/volume) 4.2 g/dL 3.2-4.5 Serum or plasma phosphate measurement (mass/volume) 3.2 mg/dL 2.3-4.7 Serum or plasma uric acid measurement (mass/volume) - 08/23/18 09:35 Serum or plasma uric acid measurement (mass/volume) 6.9 mg/dL 2.6-7.2 Blood manual differential performed detection - 08/23/18 09:35 Blood monocytes/100 leukocytes 7 % NR Manual blood segmented neutrophils/100 leukocytes 52 % NRG Manual blood lymphocytes/100 leukocytes 30 % NRG Manual eosinophils/100 leukocytes in nose 11 % NR Blood erythrocyte morphology finding identification NORMAL NR Serum iron and total iron binding capacity panel - 08/23/18 09:35 Serum or plasma iron measurement (mass/volume) 106 % 35- 180 Total iron binding capacity and transferrin saturation measurement 34 % 15-50 Iron binding capacity [mass/volume] in serum or plasma 316 % 280-380 UIBC (unsaturated iron binding capacity) 210 % 55-450 Serum or plasma ferritin measurement (mass/volume) 50.0 % 20.0-177.0 Serum or plasma intact pararthyroid hormone measurement (mass/volume) - 09:35 Serum or plasma intact parathyroid hormone measurement (mass/volume) 121.0 pg/mL 9.0-77.0 Bio-intact parathyroid hormone (PTH) measurement with calcium 9.5 % 8.5-10.5 VITAMIN D 25-HYDROXY - 08/23/18 09:35 VITAMIN D 25-HYDROXY (TOTAL) 18.6 % 30.0-100.0 Complete urinalysis with reflex to culture - 08/23/18 09:42 Urine color determination YELLOW NRG Urine clarity [...] detection in urine sediment by light microscopy TRACE NRG Squamous epithelial cells detection in urine sediment by light microscopy 2-5 NRG Crystals detection in urine sediment by light microscopy NONE NRG Casts detection in urine sediment by light microscopy NONE NRG Mucus detection in urine sediment by light microscopy NEGATIVE NRG Complete urinalysis with reflex to culture YES NRG Urine protein/creatinine mass ratio - 08/23/18 09:42 Urine protein measurement (mass/volume) 8 mg/dL 6-12 Urine creatinine measurement (mass/volume) 100 mg/dL 30- 125 Urine protein/creatinine mass ratio 0.08 NRG Bacterial urine culture - 08/23/18 09:42 Bacterial urine culture SEE COMMEN NRG COLONY COUNT . NRG Complete blood count (CBC) with automated white blood cell (WBC) differential - 10/19/18 11:17 Blood leukocytes automated count (number/volume) 7.9 10*3/uL 4.3-11.0 Blood erythrocytes automated count (number/volume) 4.49 10*6/uL 4.35-5.85 Venous blood hemoglobin measurement (mass/volume) 14.4 g/dL 11.5-16.0 Blood hematocrit (volume fraction) 42 % 35-52 Automated erythrocyte mean corpuscular volume 94 [foz_us] 80-99 Automated erythrocyte mean corpuscular hemoglobin (mass per erythrocyte) 32 pg 25-34 Automated erythrocyte mean corpuscular hemoglobin concentration measurement ( mass/volume) 34 g/dL 32-36 Automated erythrocyte distribution width ratio 12.6 % 10.0-14.5 Automated blood platelet count (count/volume) 242 10*3/uL 130-400 Automated blood platelet mean volume measurement 9.9 [foz_us] 7.4-10.4 Automated blood neutrophils/100 leukocytes 61 % 42-75 Automated blood lymphocytes/100 leukocytes 25 % 12-44 Blood monocytes/100 leukocytes 8 % 0-12 Automated blood eosinophils/100 leukocytes 5 % 0-10 Automated blood basophils/100 leukocytes 1 % 0-10 Blood neutrophils automated count (number/volume) 4.8 10*3 1.8-7.8 Blood lymphocytes automated count (number/volume) 2.0 10*3 1.0-4.0 Blood monocytes automated count (number/volume) 0.6 10*3 0.0-1.0 Automated eosinophil count 0.4 10*3/uL 0.0-0.3 Automated blood basophil count (count/volume) 0.1 10*3/uL 0.0-0.1 Comprehensive metabolic panel - 10/19/18 11:17 Serum or plasma sodium measurement (moles/volume) 141 mmol/L 135-145 Serum or plasma potassium measurement (moles/volume) 3.9 mmol/L 3.6-5.0 Serum or plasma chloride measurement (moles/volume) 105 mmol/L 98-107 Carbon dioxide 25 mmol/L 21-32 Serum or plasma anion gap determination (moles/volume) 11 mmol/L 5-14 Serum or plasma urea nitrogen measurement (mass/volume) 10 mg/dL 7-18 Serum or plasma creatinine measurement (mass/volume) 1.30 mg/dL 0.60-1.30 Serum or plasma urea nitrogen/creatinine mass ratio 8 NRG Serum or plasma creatinine measurement with calculation of estimated glomerular filtration rate 42 NRG Serum or plasma glucose measurement (mass/volume) 177 mg/dL 70-105 Serum or plasma calcium measurement (mass/volume) 9.9 mg/dL 8.5-10.1 Serum or plasma total bilirubin measurement (mass/volume) 0.7 mg/dL 0.1-1.0 Serum or plasma alkaline phosphatase measurement (enzymatic activity/volume) 120 U/L 40-136 Serum or plasma aspartate aminotransferase measurement (enzymatic activity/ volume) 26 U/L 5-34 Serum or plasma alanine aminotransferase measurement (enzymatic activity/volume ) 34 U/L 0-55 Serum or plasma protein measurement (mass/volume) 8.3 g/dL 6.4-8.2 Serum or plasma albumin measurement (mass/volume) 4.2 g/dL 3.2-4.5 CALCIUM CORRECTED 9.7 mg/dL 8.5-10.1 Serum or plasma amylase measurement (enzymatic activity/volume) - 10/19/18 11: 17 Serum or plasma amylase measurement (enzymatic activity/volume) 157 U/L 25-125 Lipase - 10/19/18 11:17 Lipase 57 U/L 8-78 Complete urinalysis with reflex to culture - 10/19/18 11:20 Urine color determination YELLOW NRG Urine clarity determination CLEAR NRG Urine pH measurement by test strip 7 5-9 Specific gravity of urine by test strip 1.005 1.016- 1.022 Urine protein assay by test [...] detection in urine sediment by light microscopy 2-5 NRG Crystals detection in urine sediment by light microscopy NONE NRG Casts detection in urine sediment by light microscopy NONE NRG Mucus detection in urine sediment by light microscopy NEGATIVE NRG Complete urinalysis with reflex to culture NO NRG Yeast detection in urine sediment by light microscopy RARE NRG Renal epithelial cells detection in urine sediment by light microscopy NONE NRG Encounters ACCT No. Visit Date/Time Discharge Status Pt. Type Provider Facility Loc./Unit Complaint [id number] 02/19/2015 08:29:00 02/19/2015 23:59:59 CLS Outpatient VALERIE PATINO DO [id number] 02/07/2015 13:27:00 02/07/2015 23:59:59 CLS Outpatient VALERIE PATINO DO [id number] 01/29/2015 08:50:00 01/29/2015 23:59:59 CLS Outpatient VALERIE PATINO DO [id number] 12/24/2014 10:30:00 12/24/2014 23:59:59 CLS Outpatient VALERIE PATINO DO [id number] 11/03/2014 09:50:00 11/03/2014 23:59:59 CLS Outpatient SHAHEEN SOSA APRN [id number] 11/03/2014 09:50:00 11/03/2014 23:59:59 CLS Outpatient SHAHEEN SOSA APRN [id number] 09/17/2014 09:53:00 09/17/2014 23:59:59 CLS Outpatient VALERIE PATINO DO [id number] 08/15/2014 13:50:00 08/15/2014 23:59:59 CLS Outpatient HELLSHAHEEN CASTILLO APRN [id number] 07/27/2014 09:28:00 07/27/2014 23:59:59 CLS Outpatient ROXY HOWE DPM [id number] 06/18/2014 09:14:00 06/18/2014 23:59:59 CLS Outpatient PATINO DO VALERIE Roberts [id number] 06/18/2014 09:14:00 06/18/2014 23:59:59 CLS Outpatient HELLSHAHEEN CASTILLO APRN [id number] 05/04/2014 09:29:00 05/04/2014 23:59:59 CLS Outpatient PATINO DO VALERIE Roberts [id number] 04/12/2014 12:55:00 04/12/2014 23:59:59 CLS Outpatient NADIA DDSTILA [id number] 03/19/2014 09:29:00 03/19/2014 23:59:59 CLS Outpatient ZAKIYALSHAHEEN CASTILLO APRN [id number] 03/05/2014 10:45:00 03/05/2014 23:59:59 CLS Outpatient PATINO DO VALERIE Roberts [id number] 01/16/2014 08:24:00 01/16/2014 23:59:59 CLS Outpatient PATINO DO, VALERIE Roberts [id number] 12/12/2013 08:38:00 12/12/2013 23:59:59 CLS Outpatient JODIE DEBT AND BUDGET COUNSELORNAY Rinaldi Navya [id number] 12/04/2013 10:09:00 12/04/2013 23:59:59 CLS Outpatient PATINO DOVALERIE [id number] 11/13/2013 08:28:00 11/13/2013 23:59:59 CLS Outpatient PATINO DO, VALERIE Roberts [id number] 09/28/2013 12:29:00 09/28/2013 23:59:59 CLS Outpatient PATINO DO, VALERIE Roberts [id number] 09/08/2013 08:49:00 09/08/2013 23:59:59 CLS Outpatient PATINO DO, VALERIE Roberts [id number] 09/08/2013 08:49:00 09/08/2013 23:59:59 CLS Outpatient PATINO DOVALERIE [id number] 08/24/2013 08:17:00 08/24/2013 23:59:59 CLS Outpatient VALERIE PATINO DO [id number] 08/03/2013 08:22:00 08/03/2013 23:59:59 CLS Outpatient VALERIE PATINO DO [id number] 07/27/2013 14:12:00 07/27/2013 23:59:59 CLS Outpatient VALERIE PATINO DO [id number] 07/17/2013 17:28:00 07/17/2013 23:59:59 CLS Outpatient VALERIE PATINO DO [id number] 02/09/2013 12:25:00 02/09/2013 23:59:59 CLS Outpatient VALERIE PATINO DO [id number] 01/17/2013 08:50:00 01/17/2013 23:59:59 CLS Outpatient SHAMIKA GOLDBERG MD [id number] 12/28/2012 15:58:00 12/28/2012 23:59:59 CLS Outpatient MAADEO DONIS DO [id number] 12/21/2012 10:41:00 12/21/2012 23:59:59 CLS Outpatient [id number] 12/21/2012 10:41:00 12/21/2012 23:59:59 CLS Outpatient SHAMIKA GOLDBERG MD [id number] 12/13/2012 11:34:00 12/13/2012 23:59:59 CLS Outpatient [id number] 12/01/2012 12:47:00 12/01/2012 23:59:59 CLS Outpatient VALERIE PATINO DO [id number] 11/23/2012 14:07:00 11/23/2012 23:59:59 CLS Outpatient [id number] 10/20/2012 09:57:00 10/20/2012 23:59:59 [place] [id number] 08/25/2012 09:51:00 08/25/2012 23:59:59 CLS Outpatient SHAMIKA GOLDBERG MD [id number] 07/17/2013 17:28:00 Document Registration [id number] 03/30/2013 15:06:00 Document Registration [id number] 03/30/2013 15:06:00 Document Registration [id number] 03/23/2013 08:28:00 Document Registration [id number] 03/09/2013 11:38:00 Document Registration [id number] 02/28/2013 15:43:00 Document Registration [id number] 02/28/2013 15:43:00 Document Registration [id number] 10/19/2018 10:30:00 10/19/2018 14:35:00 DIS Outpatient GEOVANI LUTZ [facility] ER ABD PAIN [id number] 08/23/2018 09:20:00 08/23/2018 23:59:59 CLS Outpatient MARYLOU VAUGHN MD [facility] LAB CHRONIC KIDNEY DISEASE, HYPERTENSION,IRON DEFIENCY [id number] 04/21/2018 21:40:00 04/22/2018 00:25:00 DIS Emergency SANDRA MC, SHAHID Aldridge [facility] ER CP/SOB [id number] 03/29/2018 08:43:00 03/29/2018 23:59:59 CLS Outpatient MARYLOU VAUGHN MD [facility] LAB I10,N18.3,E55.9 [id number] 10/27/2017 11:46:00 10/27/2017 23:59:59 CLS Outpatient OSWALDO ALTAMIRANO APRN [facility] RAD E11.42 TYPE 2 DIABETES [id number] 09/13/2017 12:52:00 09/13/2017 23:59:59 CLS Outpatient OSWALDO ALTAMIRANO APRN [facility] RAD ABN MAMMO [id number] 08/05/2017 13:30:00 08/05/2017 23:59:59 CLS Preadmit MARYLOU VAUGHN MD [facility] RAD CKD STAGE 2 N18.2 [id number] 05/28/2017 14:29:00 05/28/2017 23:59:59 CLS Outpatient JUDI RICHARDS MD [facility] RAD M54.2 S09.90XA R51 [id number] 03/08/2017 13:44:00 03/08/2017 23:59:59 CLS Outpatient OSWALDO ALTAMIRANO APRN [facility] RAD ABNORMAL MAMMO [id number] 02/10/2017 08:34:00 02/10/2017 23:59:59 CLS Outpatient OSWALDO ALTAMIRANO APRN [facility] RAD SCREENING BREAST CA [id number] 01/26/2017 09:17:00 01/26/2017 11:45:00 DIS Outpatient LINDA MANSFIELD DO [facility] ENDO EPIGASTRIC PAIN [id number] 01/21/2017 06:55:00 01/21/2017 14:45:00 DIS Outpatient LINDA MANSFIELD DO [facility] PREOP EPIGASTRIC PAIN [id number] 12/22/2016 18:45:00 12/23/2016 18:25:00 DIS Inpatient JUDI RICHARDS MD [facility] 4TH ACUTE PANCREATITIS,CHEST PAIN [id number] 11/03/2016 11:43:00 11/03/2016 23:59:59 CLS Outpatient DAIN MONTANEZ [facility] LAB E78.2 [id number] 08/12/2016 08:05:00 08/12/2016 10:35:00 DIS Outpatient LINDA MANSFIELD DO [facility] CHANGE IN BOWEL HABITS [id number] 08/11/2016 09:52:00 08/11/2016 14:50:00 DIS Outpatient LINDA MANSFIELD DO [facility] [place] CHANGE IN BOWEL HABITS [id number] 08/06/2016 12:42:00 08/06/2016 15:15:00 DIS Outpatient LINDA MANSFIELD DO [facility] [place] PREOP CHANGE IN BOWEL HABITS [id number] 07/14/2016 10:35:00 07/14/2016 23:59:59 CLS Outpatient DAIN MONTANEZ [facility] [place] LAB CAD,DIZZINESS ,HLP,SYNCOPE [id number] 06/13/2016 22:41:00 06/14/2016 02:00:00 DIS Emergency ROHIT CAMPA DO [facility] [place] ER LOC/NECK PAIN/HEADACHE [id number] 11/26/2015 15:58:00 11/26/2015 16:51:00 DIS Emergency ELVA ÁLVAREZ APRN [facility] [place] ER L LEG PAIN [id number] 10/18/2015 19:37:00 10/18/2015 21:56:00 DIS Emergency DAVID NATHAN MD [facility] [place] ER CP [id number] 08/26/2015 20:54:00 08/26/2015 23:00:00 DIS Emergency ELVA ÁLVAREZ [employer]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 [facility] [place] ER ABN BLOOD SUGAR [id number] 05/22/2015 10:54:00 05/22/2015 18:48:00 DIS Outpatient KETAN ADAMS MD [facility] [place] CATH ABN STRESS, CP CAD, HLP, DM [id number] 04/23/2015 11:20:00 04/23/2015 23:59:59 CLS Outpatient KETAN ADAMS MD [facility] [place] CARD CHEST PAIN [id number] 04/21/2015 20:59:00 04/22/2015 13:30:00 DIS Inpatient AMBER HERNANDEZ MD [facility] [place] [facility] CSD CP,RENAL INSUFFICIENCY, HYPERGLYCEMIA [id number] 04/14/2015 22:54:00 04/15/2015 00:06:00 DIS Emergency DAVID NATHAN MD [facility] [place] ER BACK PAIN [id number] 02/18/2015 13:18:00 02/18/2015 23:59:59 CLS Outpatient SHAHEEN SOSA 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 [facility] [place] CARD SYNCOPE [id number] 02/12/2015 10:37:00 02/12/2015 23:59:59 CLS Outpatient SHAHEEN SOSA 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 [facility] [place] [facility] RAD SYNCOPE [id number] 02/04/2015 16:54:00 02/05/2015 12:45:00 DIS Inpatient AMBER HERNANDEZ MD [facility] [place] SURGICAL SYNCOPE;UTI [id number] 01/31/2015 13:02:00 01/31/2015 23:59:59 CLS Outpatient SANDRA SALMERON 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 [facility] [place] RAD SCREENING [id number] 11/12/2014 23:16:00 11/13/2014 00:23:00 DIS Emergency DAVID NATHAN MD [facility] [place] ER FLU,HIGH BLOOD SUGAR [id number] 07/15/2014 13:56:00 07/15/2014 17:53:00 DIS Emergency BABATUNDE MORRISSEY [facility] [place] [facility] ER NUMBNESS IN FACE LUMPS ON SIDE OF HEAD AND DOWN NE [id number] 06/15/2014 12:38:00 06/15/2014 15:20:00 DIS Emergency ELVA ÁLVAREZ APRN [facility] [place] [facility] ER FALL/LEFT FOOT INJURY [id number] 04/08/2014 19:23:00 04/08/2014 19:52:00 DIS Emergency SANDRA MC, SHAHID [place] [facility] [place] [facility] ER MULTIPLE COMPLAINTS [id number] 12/17/2013 18:06:00 12/17/2013 19:56:00 DIS Emergency YOUSUF MC, POP Ford [facility] ER FALL, MULTIPLE INJ [id number] 11/01/2013 01:09:00 11/01/2013 02:59:00 DIS Emergency JAC MC, DAVID James [facility] [place] ER HG BLOOD SUGAR [id number] 02/12/2015 10:38:00 Document Registration [id number] 02/12/2015 10:38:00 Document Registration [id number] 02/12/2015 10:37:00 Document Registration [id number] 02/12/2015 10:37:00 Document Registration [id number] 10/10/2012 12:34:00 Document Registration [id number] 09/22/2012 11:06:00 Document Registration [id number] 09/01/2012 05:50:00 Document Registration [id number] 07/05/2012 04:51:00 Document Registration [id number] 05/01/2012 10:30:00 Document Registration [id number] 04/12/2012 12:24:00 Document Registration [id number] 04/06/2012 14:43:00 Document Registration [id number] 04/04/2012 22:25:00 Document Registration [id number] 01/30/2012 05:44:00 Document Registration [id number] 01/10/2012 04:00:00 Document Registration [id number] 11/19/2011 20:23:00 Document Registration [id number] 11/06/2011 00:38:00 Document Registration [id number] 08/26/2011 10:21:00 Document Registration [id number] 08/22/2011 02:40:00 Document Registration [id number] 08/17/2011 06:47:00 Document Registration [id number] 05/14/2011 10:50:00 Document Registration [id number] 05/12/2011 20:49:00 Document Registration [id number] 04/19/2011 00:05:00 Document Registration [id number] 04/06/2011 00:36:00 Document Registration [id number] 01/23/2011 01:40:00 Document Registration [id number] 04/18/2010 02:16:00 Document Registration [id number] 10/22/2009 15:22:00 Document Registration [id number] 10/01/2009 09:51:00 Document Registration [id number] 07/22/2017 16:08:00 Document Registration [id number] 05/22/2015 10:55:05 [place] Document Registration [id number] 05/14/2017 13:05:00 Document Registration [id number] 10/19/2018 09:40:00 10/19/2018 23:59:59 [facility] Gleason [facility] [id number] 06/17/2018 13:20:00 Document Registration [id number] 03/18/2018 08:00:00 Document Registration [id number] 11/25/2017 08:40:00 Document Registration
[2018-11-01 19:13] LABS: ALBUMIN 4.1 GM/DL (3.2-4.5); BILIRUBIN,TOTAL 0.6 MG/DL (0.1-1.0); CALCIUM 9.9 MG/DL (8.5-10.1); CREATININE SERUM 1.26 MG/DL (0.60-1.30); POTASSIUM 3.9 MMOL/L (3.6-5.0)
[2018-11-01 19:33] LABS: BILIRUBIN,URINE NEGATIVE (NEGATIVE); CLARITY,URINE CLEAR; COLOR,URINE YELLOW; GLUCOSE, URINE (UA) 4+ (NEGATIVE); KETONES,URINE NEGATIVE (NEGATIVE); LEUKOCYTE ESTERASE ,URINE 1+ (NEGATIVE); NITRITE,URINE NEGATIVE (NEGATIVE); PH,URINE 7 (5-9); PROTEIN,URINE NEGATIVE (NEGATIVE); UROBILINOGEN,URINE NORMAL (NORMAL)
[2018-11-01] MEDS ORDERED: PROM25TA14 PO (19:48)
[2018-11-01] MEDS ORDERED: PROMETHAZINE INJ 25 MG/ML (PHENERGAN) AMP IVP ONE (20:00)
[2018-11-01 20:46] VITALS: BP 144/62
== END 2018-11-01 20:48 | disposition home or self-care (01) ==
LOC: EDUNIT# 18:27 → ER 18:29
DX: R11.2 Nausea with vomiting, unspecified (principal); E78.00 Pure hypercholesterolemia, unspecified; K21.9 Gastro-esophageal reflux disease without esophagitis; E11.40 Type 2 diabetes mellitus with diabetic neuropathy, unspecified; F41.9 Anxiety disorder, unspecified; F31.9 Bipolar disorder, unspecified; Z88.5 Allergy status to narcotic agent; Z79.51 Long term (current) use of inhaled steroids; Z79.82 Long term (current) use of aspirin; Z90.49 Acquired absence of other specified parts of digestive tract; Z90.710 Acquired absence of both cervix and uterus; Z79.4 Long term (current) 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
CPT/HCPCS: 36415; 80053; 81000; 83690; 85025; 99282

== ENCOUNTER 2018-11-20 15:43 | Emergency (ER) | payer MEDICAID ==
[~2018-11-20] VITALS: Ht 170.2 cm; Wt 88.9 kg
[~2018-11-20 15:43] MED LIST changes: +PROM25TA14 PO
--- OUTSIDE RECORDS SUMMARY | 2018-11-20 16:22 | XMS REPORT | Continuity of Care Document ---
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 Medications [...] MELLITUS TYPE II - UNCOMPLICATED, CONTROLLED 06/15/2008 AMADOE DONIS DO 272.4 DYSLIPIDEMIA 06/15/2008 SHAMIKA GOLDBERG [...] TYPE II - UNCOMPLICATED, CONTROLLED 06/15/2008 ZAKIYAANNA [employer] SUPERVISOR, SHAHEEN E 272.4 DYSLIPIDEMIA 06/15/2008 [facility] [employer]ING [employer] SUPERVISOR, SHAHEEN E 250.00 DIABETES MELLITUS TYPE II - UNCOMPLICATED, CONTROLLED 06/15/2008 HELDUKE [facility] [employer]ING [employer] SUPERVISOR, SHAHEEN E 272.4 DYSLIPIDEMIA 06/15/2008 PATINO DO, [...] TYPE 2 - UNCOMPLICATED, UNCONTROLLED 06/19/2008 VALERIE APTINO DO 382.00 OTITIS MEDIA ACUTE WITHOUT SPONTANEOUS [...] K 462 PHARYNGITIS ACUTE 06/19/2008 PATINO DO, VALEREI K 250.02 DIABETES MELLITUS TYPE 2 - [...] VALERIE K 462 PHARYNGITIS ACUTE 06/19/2008 HELLWIG [employer] SUPERVISOR SHAHEEN E 250.02 DIABETES MELLITUS TYPE 2 - UNCOMPLICATED, UNCONTROLLED 06/19/2008 HELLWIG [employer] SUPERVISOR, SHAHEEN E 382.00 OTITIS MEDIA ACUTE WITHOUT SPONTANEOUS RUPTURE EARDRUM 06/19/2008 HELLWIG [employer] SUPERVISOR SHAHEEN E 462 PHARYNGITIS ACUTE 06/19/2008 SHYAM DPM, ROXY 250.02 DIABETES MELLITUS TYPE 2 - UNCOMPLICATED, UNCONTROLLED 06/19/2008 SHYAM DPM, ROXY 382.00 OTITIS MEDIA ACUTE WITHOUT SPONTANEOUS RUPTURE EARDRUM 06/19/2008 SHYAM DPM, ROXY 462 PHARYNGITIS ACUTE 06/19/2008 HELLWIG [employer] SUPERVISOR SHAHEEN E 250.02 DIABETES MELLITUS TYPE 2 - UNCOMPLICATED, UNCONTROLLED 06/19/2008 HELLWIG [employer] SUPERVISOR, SHAHEEN E 382.00 OTITIS MEDIA ACUTE WITHOUT SPONTANEOUS RUPTURE EARDRUM 06/19/2008 HELLWIG [employer] SUPERVISOR SHAHEEN E 462 PHARYNGITIS ACUTE 06/19/2008 PATINO DO, VALERIE K 250.02 DIABETES MELLITUS TYPE 2 - UNCOMPLICATED, UNCONTROLLED 06/19/2008 PATINO DO, VALERIE K 382.00 OTITIS MEDIA ACUTE WITHOUT SPONTANEOUS RUPTURE EARDRUM 06/19/2008 PATINO DO, VALERIE K 462 PHARYNGITIS ACUTE 06/19/2008 HELLWIG [employer] SUPERVISOR SHAHEEN E 250.02 DIABETES MELLITUS TYPE 2 - UNCOMPLICATED, UNCONTROLLED 06/19/2008 HELLWIG [employer]ODUCTION SUPERVISOR, SHAHEEN E 382.00 OTITIS MEDIA ACUTE WITHOUT SPONTANEOUS RUPTURE EARDRUM 06/19/2008 HELLWIG [employer] SUPERVISOR SHAHEEN E 462 PHARYNGITIS ACUTE 06/19/2008 HELLWIG [employer] SUPERVISOR SHAHEEN E 250.02 DIABETES MELLITUS TYPE 2 - UNCOMPLICATED, UNCONTROLLED 06/19/2008 ZAKIYAANNA [employer]ING [employer]ODUCTION SUPERVISOR, SHAHEEN E 382.00 OTITIS MEDIA ACUTE WITHOUT SPONTANEOUS RUPTURE EARDRUM 06/19/2008 ZAKIYAFIONA [employer]ING [employer]ODUCTION SUPERVISOR, SHAHEEN E 462 PHARYNGITIS ACUTE 06/19/2008 SUKUMAR [...] 07/04/2008 724.4 BACK PAIN WITH RADIATION 07/04/2008 VALREIE PATINO DO K 300.00 anxiety 07/04/2008 VALERIE [...] K 724.4 BACK PAIN WITH RADIATION 07/04/2008 [facility] APRN E 300.00 anxiety 07/04/2008 SHAHEEN SOSA APRN E 724.4 BACK PAIN WITH RADIATION 07/04/2008 SHYAM DPM, ROXY 300.00 anxiety 07/04/2008 SHYAM DPM, ROXY 724.4 BACK PAIN WITH RADIATION 07/04/2008 RIGO OSSA APRNE E 300.00 anxiety 07/04/2008 SHAHEEN SSOA APRN E 724.4 BACK PAIN WITH RADIATION 07/04/2008 PATINO DO, VALERIE K 300.00 anxiety 07/04/2008 PATINO DO, VALERIE K 724.4 BACK PAIN WITH RADIATION 07/04/2008 RIGO SOSA APRNE E 300.00 anxiety 07/04/2008 IAN [employer]ING [employer] SUPERVISOR, SHAHEEN E 724.4 BACK PAIN WITH RADIATION 07/04/2008 [facility] JOSSE SHAHEEN E 300.00 anxiety 07/04/2008 ZAKIYAANNA SPR[employer] SUPERVISORGADIELSHAHEEN E 724.4 BACK PAIN WITH RADIATION 07/04/2008 [...] 709.9 DERMATITIS OTHER SKIN DISORDERS 07/18/2008 HELLWIG [employer] SUPERVISOR, SHAHEEN E 709.9 DERMATITIS OTHER SKIN DISORDERS [...] VALERIE K 724.5 BACKACHE UNSPECIFIED 08/29/2008 HELLWIG [employer] SUPERVISOR, SHAHEEN E 724.5 BACKACHE UNSPECIFIED 08/29/2008 SHYAM DPM, ROXY 724.5 BACKACHE UNSPECIFIED 08/29/2008 HELLWIG [employer] SUPERVISOR, SHAHEEN E 724.5 BACKACHE UNSPECIFIED 08/29/2008 PATINO DO, VALERIE K 724.5 BACKACHE UNSPECIFIED 08/29/2008 HELLWIG [employer] SUPERVISOR, SHAHEEN E 724.5 BACKACHE UNSPECIFIED 08/29/2008 HELLWIG [employer] SUPERVISOR, SHAHEEN E 724.5 BACKACHE UNSPECIFIED 08/29/2008 PATINO [...] GROUP A: BETA HEMOLYTIC 11/28/2008 PATINO DO, VALEREI K 259.9 ENDOCRINE DISORDERS 11/28/2008 PATINO DO, [...] APRNSIE E 259.9 ENDOCRINE DISORDERS 11/28/2008 HELLWIG [employer] SUPERVISOR, SHAHEEN E 786.2 cough 11/28/2008 SHYAM DPM, ROXY 034.0 PHARYNGITIS STREPTOCOCCUS, GROUP A: BETA HEMOLYTIC 11/28/2008 SHYAM DPM, ROXY 259.9 ENDOCRINE DISORDERS 11/28/2008 SHYAM DPM, ROXY 786.2 cough 11/28/2008 [facility] SPRING [employer]ODUCTION SUPERVISOR, SHAHEEN E 034.0 PHARYNGITIS STREPTOCOCCUS, GROUP A: BETA HEMOLYTIC 11/28/2008 [facility] SPRING [employer]ODUCTION SUPERVISOR, SHAHEEN E 259.9 ENDOCRINE DISORDERS 11/28/2008 [facility] SPRING PRODUCTION SUPERVISOR, SHAHEEN E 786.2 cough 11/28/2008 PATINO DO, VALERIE K 034.0 PHARYNGITIS STREPTOCOCCUS, GROUP A: BETA HEMOLYTIC 11/28/2008 PATINO DO, VALERIE K 259.9 ENDOCRINE DISORDERS 11/28/2008 PATINO DO, VALERIE K 786.2 cough 11/28/2008 [facility] SPRING PRODUCTION SUPERVISOR, SHAHEEN E 034.0 PHARYNGITIS STREPTOCOCCUS, GROUP A: BETA HEMOLYTIC 11/28/[facility] 259.9 ENDOCRINE DISORDERS 11/28/2008 [facility] SPRING PRODUCTION SUPERVISOR, SHAHEEN E 786.2 cough 11/28/2008 [facility] SPRING PRODUCTION SUPERVISOR, SHAHEEN E 034.0 PHARYNGITIS STREPTOCOCCUS, GROUP A: BETA HEMOLYTIC 11/28/2008 [facility] SPRING PRODUCTION SUPERVISOR, SHAHEEN E 259.9 ENDOCRINE DISORDERS 11/28/2008 [facility] SPRING PRODUCTION SUPERVISOR, SHAHEEN E 786.2 cough 11/28/2008 PATINO DO, [...] VALERIE K 692.6 POISON JOHANA 01/18/2009 HELLWIG [employer] SUPERVISOR, SHAHEEN E 692.6 POISON JOHANA 01/18/2009 NADIA DDS, TILA M 692.6 POISON JOHANA 01/18/2009 PATINO DO, VALERIE K 692.6 POISON JOHANA 01/18/2009 PATINO DO, VALERIE K 692.6 POISON JOHANA 01/18/2009 HELLWIG [employer] SUPERVISOR, SHAHEEN E 692.6 POISON JOHANA 01/18/2009 SHYAM DPM, ROXY 692.6 POISON JOHANA 01/18/2009 HELLWIG [employer] SUPERVISOR, SHAHEEN E 692.6 POISON JOHANA 01/18/2009 PATINO DO, VALERIE K 692.6 POISON JOHANA 01/18/2009 HELL[employer]IG [employer] SUPERVISOR, SHAHEEN E 692.6 POISON JOHANA 01/18/2009 HELLWIG [employer] SUPERVISOR, SHAHEEN E 692.6 POISON JOHANA 01/18/2009 PATINO [...] VALERIE K 477.9 RHINITIS 04/09/2009 PATINO DO, AVLERIE K V15.09 PERSONAL HISTORY OF OTHER ALLERGY [...] ZAKIYALANNA MORENONSHAHEEN E 477.9 RHINITIS 04/09/2009 HELLANNA SPRING PRODUCTION SUPERVISORGADIELSHAHEEN E V15.09 PERSONAL HISTORY OF OTHER ALLERGY [...] OTHER THAN TO MEDICINAL AGENTS 04/09/2009 HELLWIG [employer] SUPERVISOR SHAHEEN E 477.9 RHINITIS 04/09/2009 HELLWIG [employer] SUPERVISOR, SHAHEEN E V15.09 PERSONAL HISTORY OF OTHER ALLERGY OTHER THAN TO MEDICINAL AGENTS 04/09/2009 SHYAM DPM, ROXY 477.9 RHINITIS 04/09/2009 SHYAM DPM, ROXY V15.09 PERSONAL HISTORY OF OTHER ALLERGY OTHER THAN TO MEDICINAL AGENTS 04/09/2009 HELLWIG [employer] SUPERVISORGADIELSHAHEEN E 477.9 RHINITIS 04/09/2009 HELLWIG [employer] SUPERVISOR, SHAHEEN E V15.09 PERSONAL HISTORY OF OTHER ALLERGY OTHER THAN TO MEDICINAL AGENTS 04/09/2009 PATINO DO, VALERIE K 477.9 RHINITIS 04/09/2009 PATINO DO, VALERIE K V15.09 PERSONAL HISTORY OF OTHER ALLERGY OTHER THAN TO MEDICINAL AGENTS 04/09/2009 HELLWIG [employer] SUPERVISORGADIEL RinaldiSIE E 477.9 RHINITIS 04/09/2009 HELLWIG [employer] SUPERVISOR SHAHEEN E V15.09 PERSONAL HISTORY OF OTHER ALLERGY OTHER THAN TO MEDICINAL AGENTS 04/09/2009 HELLWIG [employer] SUPERVISOR, SHAHEEN E 477.9 RHINITIS 04/09/2009 HELLWIG [employer] SUPERVISOR SHAHEEN E V15.09 PERSONAL HISTORY OF OTHER [...] K 724.2 lower back pain 06/05/2009 HELWIG [employer] SUPERVISOR, SHAHEEN E 724.2 lower back pain 06/05/2009 SHYAM DPM, ROXY 724.2 lower back pain 06/05/2009 HELLWIG [employer] SUPERVISOR, SHAHEEN E 724.2 lower back pain 06/05/2009 PATINO DO, VALERIE K 724.2 lower back pain 06/05/2009 [facility] SHAHEEN E 724.2 lower back pain 06/05/2009 HELWIG [employer] SUPERVISOR, SHAHEEN E 724.2 lower back pain 06/05/2009 [...] OF LUMBAR INTERVERTEBRAL DISC WITHOUT MYELOPATHY 06/19/2009 [facility] SHAHEEN LOAIZA E 722.10 DISPLACEMENT OF [...] 845.00 UNSPECIFIED SITE OF ANKLE SPRAIN 07/19/2009 SHAEHEN SOSA APRN E 250.00 DIABETES MELLITUS POORLY [...] 250.00 DIABETES MELLITUS POORLY CONTROLLED 07/19/2009 HELLWIG [employer] SUPERVISOR, SHAHEEN E 845.00 UNSPECIFIED SITE OF ANKLE SPRAIN 07/19/2009 PATINO DO, VALERIE K 250.00 DIABETES MELLITUS POORLY CONTROLLED 07/19/2009 PATINO DO, VALERIE K 845.00 UNSPECIFIED SITE OF ANKLE SPRAIN 07/19/2009 HELLWIG [employer] SUPERVISOR, SHAHEEN E 250.00 DIABETES MELLITUS POORLY CONTROLLED 07/19/2009 HELWIG [employer] SUPERVISOR, SHAHEEN E 845.00 UNSPECIFIED SITE OF ANKLE SPRAIN 07/19/2009 HELLWIG [employer] SUPERVISOR, SHAHEEN E 250.00 DIABETES MELLITUS POORLY CONTROLLED 07/19/2009 HELLWIG [employer] SUPERVISOR, SHAHEEN E 845.00 UNSPECIFIED SITE OF ANKLE [...] TRACT INFECTION, SITE NOT SPECIFIED 09/19/2009 HELLWIG [employer] SUPERVISOR, SHAHEEN E 599.0 URINARY TRACT INFECTION, SITE NOT SPECIFIED 09/19/2009 SHYAM DPM, ROXY 599.0 URINARY TRACT INFECTION, SITE NOT SPECIFIED 09/19/2009 HELLWIG [employer] SUPERVISOR, SHAHEEN E 599.0 URINARY TRACT INFECTION, SITE NOT SPECIFIED 09/19/2009 PATINO DO, VALERIE K 599.0 URINARY TRACT INFECTION, SITE NOT SPECIFIED 09/19/2009 HELLWIG [employer] SUPERVISOR, SHAHEEN E 599.0 URINARY TRACT INFECTION, SITE NOT SPECIFIED 09/19/2009 HELLWIG [employer] SUPERVISOR, SHAHEEN E 599.0 URINARY TRACT INFECTION, SITE [...] DO, VALERIE K 787.91 DIARRHEA 09/26/2009 HELL[employer]IG [employer] SUPERVISOR, SHAHEEN E 388.70 earache 09/26/2009 HELLWIG [employer] SUPERVISOR, SHAHEEN E 787.91 DIARRHEA 09/26/2009 NADIA DDS, TILA M 388.70 earache 09/26/2009 NADIA DDS, TILA M 787.91 DIARRHEA 09/26/2009 PATINO DO, VALERIE K 388.70 earache 09/26/2009 PATINO DO, VALERIE K 787.91 DIARRHEA 09/26/2009 PATINO DO, VALERIE K 388.70 earache 09/26/2009 PATINO DO, VALERIE K 787.91 DIARRHEA 09/26/2009 HELLWIG [employer] SUPERVISOR, SHAHEEN E 388.70 earache 09/26/2009 HELLWIG [employer] SUPERVISOR, SHAHEEN E 787.91 DIARRHEA 09/26/2009 SHYAM DPM, ROXY 388.70 earache 09/26/2009 SHYAM DPM, ROXY 787.91 DIARRHEA 09/26/2009 HELLWIG [employer] SUPERVISOR SHAHEEN E 388.70 earache 09/26/2009 HELLWIG [employer] SUPERVISOR, SHAHEEN E 787.91 DIARRHEA 09/26/2009 PATINO DO, VALERIE K 388.70 earache 09/26/2009 PATINO DO, VALERIE K 787.91 DIARRHEA 09/26/2009 HELLWIG [employer] SUPERVISOR, SHAHEEN E 388.70 earache 09/26/2009 HELLWIG [employer] SUPERVISOR, SHAHEEN E 787.91 DIARRHEA 09/26/2009 HELLWIG [employer] SUPERVISOR, SHAHEEN E 388.70 earache 09/26/2009 HELLWIG [employer] SUPERVISOR, SHAHEEN E 787.91 DIARRHEA 09/26/2009 PATINO DO, [...] DO, VALERIE K 780.79 FATIGUE 10/31/2009 FELICIANO [employer]ING [employer]ODUCTION SUPERVISOR, NAY R 270.7 HYPERGLYCINEMIA 10/31/2009 FELICIANO [employer]ING [employer]ODUCTION SUPERVISOR, NAY R 357.9 NEUROPATHY UNSP 10/31/2009 FELICIANO [employer]ING [employer]ODUCTION SUPERVISOR, NAY R 401.1 ESSENTIAL HYPERTENSION BENIGN 10/31/2009 FELICIANO [employer]ING [employer]ODUCTION SUPERVISOR, NAY R 780.79 FATIGUE 10/31/2009 PATINO DO, [...] DO, VALERIE K 780.79 FATIGUE 10/31/2009 HELLWIG [employer] SUPERVISOR, SHAHEEN E 270.7 HYPERGLYCINEMIA 10/31/2009 HELLWIG [employer] SUPERVISOR, SHAHEEN E 357.9 NEUROPATHY UNSP 10/31/2009 HELLWIG [employer] SUPERVISOR, SHAHEEN E 401.1 ESSENTIAL HYPERTENSION BENIGN 10/31/2009 HELLWIG [employer] SUPERVISOR, SHAHEEN E 780.79 FATIGUE 10/31/2009 NADIA DDS, [...] DO, VALERIE K 780.79 FATIGUE 10/31/2009 HELLWIG [employer] SUPERVISOR, SHAHEEN E 270.7 HYPERGLYCINEMIA 10/31/2009 [facility] SPRING PRODUCTION SUPERVISOR, SHAHEEN E 357.9 NEUROPATHY UNSP 10/31/2009 [facility] SPRING PRODUCTION SUPERVISOR, SHAHEEN E 401.1 ESSENTIAL HYPERTENSION BENIGN 10/31/2009 [facility] SPRING PRODUCTION SUPERVISOR, SHAHEEN E 780.79 FATIGUE 10/31/2009 SHYAM DPM, ROXY 270.7 HYPERGLYCINEMIA 10/31/2009 SHYAM DPM, ROXY 357.9 NEUROPATHY UNSP 10/31/2009 SHYAM DPM, ROXY 401.1 ESSENTIAL HYPERTENSION BENIGN 10/31/2009 SHYAM DPM, ROXY 780.79 FATIGUE 10/31/2009 [facility] SPRING PRODUCTION SUPERVISOR, SHAHEEN E 270.7 HYPERGLYCINEMIA 10/31/2009 [facility] SPRING PRODUCTION SUPERVISOR, SHAHEEN E 357.9 NEUROPATHY UNSP 10/31/2009 [facility]PER[facility], SHAHEEN E 401.1 ESSENTIAL HYPERTENSION BENIGN 10/31/2009 [facility] SPRING PRODUCTION SUPERVISOR, SHAHEEN E 780.79 FATIGUE 10/31/2009 PATINO DO, VALERIE K 270.7 HYPERGLYCINEMIA 10/31/2009 PATINO DO, VALERIE K 357.9 NEUROPATHY UNSP 10/31/2009 PATINO DO, VALERIE K 401.1 ESSENTIAL HYPERTENSION BENIGN 10/31/2009 PATINO DO, VALERIE K 780.79 FATIGUE 10/31/2009 [facility] SPRING PRODUCTION SUPERVISOR, SHAHEEN E 270.7 HYPERGLYCINEMIA 10/31/2009 [facility] SPRING PRODUCTION SUPERVISOR, SHAHEEN E 357.9 NEUROPATHY UNSP 10/31/2009 [facility] SPRING PRODUCTION SUPERVISOR, SHAHEEN E 401.1 ESSENTIAL HYPERTENSION BENIGN 10/31/2009 HELLWIG [employer] SUPERVISOR, SHAHEEN E 780.79 FATIGUE 10/31/2009 HELLWIG [employer]ODUCTION SUPERVISOR, SHAHEEN E 270.7 HYPERGLYCINEMIA 10/31/2009 [facility] SPRING PRODUCTION SUPERVISOR, SHAHEEN E 357.9 NEUROPATHY UNSP 10/31/2009 ZAKIYAAlvinaANNA SPRING [employer]ODUCTION SUPERVISOR, SHAHEEN E 401.1 ESSENTIAL HYPERTENSION BENIGN 10/31/2009 HELAlvinaANNA SPRING PRODUCTION SUPERVISOR, SHAHEEN E 780.79 FATIGUE 10/31/2009 PATINO DO, [...] SHYAM DPM, ROXY 250.40 DIABETIC NEPHROPATHY 01/23/2010 [facility] LO[facility]ZA SHAHEEN E 250.40 DIABETIC NEPHROPATHY 01/23/2010 PATINO DO, VALERIE K 250.40 DIABETIC NEPHROPATHY 01/23/2010 [facility], SHAHEEN E 250.40 DIABETIC NEPHROPATHY 01/23/2010 IAN LOIAZA SHAHEEN E 250.40 DIABETIC NEPHROPATHY 01/23/2010 PATINO [...] K 786.05 Shortness Of Breath 10/15/2010 FELICIANO [employer]ING PRODUCTION SUPERVISORNAY R 465.9 Upper Respiratory Infection 10/15/2010 FELICIANO [employer]ING [employer]ODUCTION SUPERVISORNAY R 786.05 Shortness Of Breath 10/15/2010 PATINO DO, VALERIE K 465.9 Upper Respiratory Infection 10/15/2010 PATINO DO, VALERIE K 786.05 Shortness Of Breath 10/15/2010 PATINO DO, VALERIE K 465.9 Upper Respiratory Infection 10/15/2010 PATINO DO, VALERIE K 786.05 Shortness Of Breath 10/15/2010 HELLWIG [employer] SUPERVISOR, SHAHEEN E 465.9 Upper Respiratory Infection 10/15/2010 HELL[employer] SUPERVISOR, SHAHEEN E 786.05 Shortness Of Breath 10/15/2010 NADIA DDS, TILA M 465.9 Upper Respiratory Infection 10/15/2010 NADIA DDS, TILA M 786.05 Shortness Of Breath 10/15/2010 PATINO DO, VALERIE K 465.9 Upper Respiratory Infection 10/15/2010 PATINO DO, VALERIE K 786.05 Shortness Of Breath 10/15/2010 PATINO DO, VALERIE K 465.9 Upper Respiratory Infection 10/15/2010 PATINO DO, VALERIE K 786.05 Shortness Of Breath 10/15/2010 HELL[employer] SUPERVISOR, SHAHEEN E 465.9 Upper Respiratory Infection 10/15/2010 HELL[employer]IG [employer] SUPERVISOR, SHAHEEN E 786.05 Shortness Of Breath 10/15/2010 SHYAM DPM, ROXY 465.9 Upper Respiratory Infection 10/15/2010 SHYAM DPM, ROXY 786.05 Shortness Of Breath 10/15/2010 HELLWIG [employer] SUPERVISOR, SHAHEEN E 465.9 Upper Respiratory Infection 10/15/2010 HELL[employer]IG [employer] SUPERVISOR, SHAHEEN E 786.05 Shortness Of Breath 10/15/2010 PATINO DO, VALERIE K 465.9 Upper Respiratory Infection 10/15/2010 PATINO DO, VALERIE K 786.05 Shortness Of Breath 10/15/2010 HELLWIG [employer] SUPERVISOR, SHAHEEN E 465.9 Upper Respiratory Infection 10/15/2010 HELLWIG [employer] SUPERVISOR, SHAHEEN E 786.05 Shortness Of Breath 10/15/2010 HELLWIG [employer] SUPERVISOR, SHAHEEN E 465.9 Upper Respiratory Infection 10/15/2010 HELLWIG [employer] SUPERVISOR, SHAHEEN E 786.05 Shortness Of Breath 10/15/2010 [...] DO, VALERIE K 577.0 Acute Pancreatitis 02/03/2011 PTAINO DO, VALERIE K 577.0 Acute Pancreatitis 02/03/2011 NAY FELICIANO APRN 577.0 Acute Pancreatitis 02/03/2011 PATINO DO, VALERIE K 577.0 Acute Pancreatitis 02/03/2011 PATINO DO, VALERIE K 577.0 Acute Pancreatitis 02/03/2011 HELLWIG [employer] SUPERVISOR, SHAHEEN E 577.0 Acute Pancreatitis 02/03/2011 NADIA DDS, TILA M 577.0 Acute Pancreatitis 02/03/2011 PATINO DO, VALERIE K 577.0 Acute Pancreatitis 02/03/2011 PATINO DO, VALERIE K 577.0 Acute Pancreatitis 02/03/2011 HELLWIG [employer] SUPERVISOR, SHAHEEN E 577.0 Acute Pancreatitis 02/03/2011 SHYAM DPM, ROXY 577.0 Acute Pancreatitis 02/03/2011 HELLWIG [employer] SUPERVISOR, SHAHEEN E 577.0 Acute Pancreatitis 02/03/2011 PATINO DO, VALERIE K 577.0 Acute Pancreatitis 02/03/2011 HELLWIG [employer] SUPERVISOR, SHAHEEN E 577.0 Acute Pancreatitis 02/03/2011 HELLWIG [employer] SUPERVISOR, SHAHEEN E 577.0 Acute Pancreatitis 02/03/2011 PATINO [...] VALERIE K 784.91 Postnasal Drip 03/25/2011 HELFIONA [employer] SUPERVISOR, SHAHEEN E 784.91 Postnasal Drip 03/25/2011 SHYAM DPM, ROXY 784.91 Postnasal Drip 03/25/2011 HELFIONA [employer]ING [employer] SUPERVISOR, SHAHEEN E 784.91 Postnasal Drip 03/25/2011 PATINO DO, VALERIE K 784.91 Postnasal Drip 03/25/2011 HELLWIG [employer] SUPERVISOR, SHAHEEN E 784.91 Postnasal Drip 03/25/2011 HELLANNA [employer]ING [employer]ODUCTION SUPERVISOR, SHAHEEN E 784.91 Postnasal Drip 03/25/2011 PATINO [...] K 788.30 Urinary Incontinence, Unspecified 07/29/2011 HELLWIG [employer] SUPERVISOR, SHAHEEN E 788.30 Urinary Incontinence, Unspecified 07/29/2011 NADIA DDS, TILA M 788.30 Urinary Incontinence, Unspecified 07/29/2011 PATINO DO, VALERIE K 788.30 Urinary Incontinence, Unspecified 07/29/2011 PATINO DO, VALERIE K 788.30 Urinary Incontinence, Unspecified 07/29/2011 HELLWIG [employer] SUPERVISOR, SHAHEEN E 788.30 Urinary Incontinence, Unspecified 07/29/2011 SHYAM DPM, ROXY 788.30 Urinary Incontinence, Unspecified 07/29/2011 HELLWIG [employer] SUPERVISOR, SHAHEEN E 788.30 Urinary Incontinence, Unspecified 07/29/2011 PATINO DO, VALERIE K 788.30 Urinary Incontinence, Unspecified 07/29/2011 HELLWIG [employer] SUPERVISOR, SAHHEEN E 788.30 Urinary Incontinence, Unspecified 07/29/2011 HELLWIG [employer] SUPERVISOR, SHAHEEN E 788.30 Urinary Incontinence, Unspecified 07/29/2011 [...] OF SKIN AND SUBCUTANEOUS TISSUE 08/04/2011 IAN [employer] SUPERVISOR SHAHEEN E 686.9 UNSPECIFIED LOCAL INFECTION OF SKIN AND SUBCUTANEOUS TISSUE 08/04/2011 PATINO DO, VALERIE K 686.9 UNSPECIFIED LOCAL INFECTION OF SKIN AND SUBCUTANEOUS TISSUE 08/04/2011 IAN [employer] SUPERVISOR SHAHEEN E 686.9 UNSPECIFIED LOCAL INFECTION OF SKIN AND SUBCUTANEOUS TISSUE 08/04/2011 HELAlvinaWIG [employer]ING [employer] SUPERVISOR SHAHEEN E 686.9 UNSPECIFIED LOCAL INFECTION OF [...] OCONNORA K 079.99 VIRAL SYNDROME 08/10/2011 HELLWIG [employer] SUPERVISOR, SHAHEEN E 079.99 VIRAL SYNDROME 08/10/2011 NADIA DDS, TILA M 079.99 VIRAL SYNDROME 08/10/2011 PATINO DO, VALERIE K 079.99 VIRAL SYNDROME 08/10/2011 PATINO DO, VALERIE K 079.99 VIRAL SYNDROME 08/10/2011 HELLWIG [employer] SUPERVISOR, SHAHEEN E 079.99 VIRAL SYNDROME 08/10/2011 SHYAM DPM, ROXY 079.99 VIRAL SYNDROME 08/10/2011 HELLWIG [employer] SUPERVISOR, SHAHEEN E 079.99 VIRAL SYNDROME 08/10/2011 PATINO DO, VALERIE K 079.99 VIRAL SYNDROME 08/10/2011 HELLANNA SPRING [employer]ODUCTION SUPERVISOR, SHAHEEN E 079.99 VIRAL SYNDROME 08/10/2011 HELLWIG [employer] SUPERVISOR, SHAHEEN E 079.99 VIRAL SYNDROME 08/10/2011 PATINO [...] K 786.50 UNSPECIFIED CHEST PAIN 08/28/2011 HELLWIG [employer] SUPERVISOR, SHAHEEN E 786.50 UNSPECIFIED CHEST PAIN 08/28/2011 SHYAM DPM, ROXY 786.50 UNSPECIFIED CHEST PAIN 08/28/2011 HELWIG [employer] SUPERVISOR, SHAHEEN E 786.50 UNSPECIFIED CHEST PAIN 08/28/2011 PATINO DO, VALERIE K 786.50 UNSPECIFIED CHEST PAIN 08/28/2011 [facility] SPRING PRODUCTION SUPERVISOR, SHAHEEN E 786.50 UNSPECIFIED CHEST PAIN 08/28/2011 HELWIG [employer]ING [employer]ODUCTION SUPERVISOR, SHAHEEN E 786.50 UNSPECIFIED CHEST PAIN 08/28/2011 [...] VALERIE K V67.9 UNSPECIFIED FOLLOW-UP EXAMINATION 11/03/2011 ANY FELICIANO APRN V67.9 UNSPECIFIED FOLLOW-UP EXAMINATION 11/03/2011 [...] APRN E 276.51 DEHYDRATION (Na, H2O) 02/26/2012 [facility] SPRING PRODUCTION SUPERVISOR, SHAHEEN E 787.02 nausea 02/26/2012 SHYAM DPM, ROXY 276.51 DEHYDRATION (Na, H2O) 02/26/2012 SHYAM DPM, ROXY 787.02 nausea 02/26/2012 [facility] SPRING PRODUCTION SUPERVISOR, SHAHEEN E 276.51 DEHYDRATION (Na, H2O) 02/26/2012 [facility] [employer]ING PRODUCTION SUPERVISOR, SHAHEEN E 787.02 nausea 02/26/2012 PATINO DO, VALERIE K 276.51 DEHYDRATION (Na, H2O) 02/26/2012 PATINO DO, VALERIE K 787.02 nausea 02/26/2012 [facility] [employer]ING PRODUCTION SUPERVISOR, SHAHEEN E 276.51 DEHYDRATION (Na, H2O) 02/26/2012 [facility] SPRING PRODUCTION SUPERVISOR, SHAHEEN E 787.02 nausea 02/26/2012 [facility] SPRING PRODUCTION SUPERVISOR, SHAHEEN E 276.51 DEHYDRATION (Na, H2O) 02/26/2012 [facility] [employer]ING PRODUCTION SUPERVISOR, SHAHEEN E 787.02 nausea 02/26/2012 PATINO DO, [...] VALERIE K 466.0 ACUTE BRONCHITIS 03/08/2012 [employer] SUPERVISOR, SHAHEEN E 466.0 ACUTE BRONCHITIS 03/08/2012 NADIA DDS, TILA M 466.0 ACUTE BRONCHITIS 03/08/2012 PATINO DO, VALERIE K 466.0 ACUTE BRONCHITIS 03/08/2012 PATINO DO, VALERIE K 466.0 ACUTE BRONCHITIS 03/08/2012 [employer] SUPERVISOR, SHAHEEN E 466.0 ACUTE BRONCHITIS 03/08/2012 SHYAM DPM, ROXY 466.0 ACUTE BRONCHITIS 03/08/2012 [employer] SUPERVISOR, SHAHEEN E 466.0 ACUTE BRONCHITIS 03/08/2012 PATINO DO, VALERIE K 466.0 ACUTE BRONCHITIS 03/08/2012 [employer] SUPERVISOR, SHAHEEN E 466.0 ACUTE BRONCHITIS 03/08/2012 [employer] SUPERVISOR, SHAHEEN E 466.0 ACUTE BRONCHITIS 03/08/2012 PATINO [...] V03.82 Need For Vaccination Pneumococcal 04/12/2012 [employer] SUPERVISORRIGO RinaldiE E V03.82 Need For Vaccination Pneumococcal [...] V03.82 Need For Vaccination Pneumococcal 04/12/2012 [employer] SUPERVISORGADIEL RinaldiSIE E V03.82 Need For Vaccination Pneumococcal 04/12/2012 [facility] LO[facility] E V03.82 Need For Vaccination Pneumococcal 04/12/2012 PATINO DO, VALERIE K V03.82 Need For Vaccination Pneumococcal 04/12/2012 PATINO DO, VALERIE K V03.82 Need For Vaccination Pneumococcal 04/12/2012 PATINO DO, VALERIE K V03.82 Need For Vaccination Pneumococcal 04/12/2012 PATINO DO, VALERIE K V03.82 Need For Vaccination Pneumococcal 04/21/2012 SHAMIKA GOLDBERG MD 549.41 joint pain, localized in the right shoulder 04/21/2012 SHAMIKA GOLDBERG MD 780.4 lightheadedness 04/21/2012 SHAMIKA GOLDBERG MD 299.41 joint pain, localized in the right shoulder [...] in the right shoulder 04/21/2012 PATINO DO, VAELRIE K 780.4 lightheadedness 04/21/2012 PATINO DO, VALERIE [...] in the right shoulder 04/21/2012 PATINO DO, VALEREI K 780.4 lightheadedness 04/21/2012 PATINO DO, VALERIE K 719.41 joint pain, localized in the right shoulder 04/21/2012 PATINO DO, VALERIE K 780.4 lightheadedness 04/21/2012 HELLWIG SPRING PRODUCTION SUPERVISOR, SHAHEEN E 719.41 joint pain, localized in the right shoulder 04/21/2012 HELLWIG [employer]ING PRODUCTION SUPERVISOR, SHAHEEN E 780.4 lightheadedness 04/21/2012 NADIA DDS, [...] DO, VALERIE K 780.4 lightheadedness 04/21/2012 HELLWIG [employer]ING [employer] SUPERVISOR, SHAHEEN E 719.41 joint pain, localized in the right shoulder 04/21/2012 HELLWIG [employer]ING [employer]ODUCTION SUPERVISOR, SHAHEEN E 780.4 lightheadedness 04/21/2012 SHYAM DPM, ROXY 719.41 joint pain, localized in the right shoulder 04/21/2012 SHYAM DPM, ROXY 780.4 lightheadedness 04/21/2012 HELLWIG [employer]ING PRODUCTION SUPERVISOR, SHAHEEN E 719.41 joint pain, localized in the right shoulder 04/21/2012 HELLWIG [employer]ING PRODUCTION SUPERVISOR, SHAHEEN E 780.4 lightheadedness 04/21/2012 PATINO DO, VALERIE K 719.41 joint pain, localized in the right shoulder 04/21/2012 PATINO DO, VALERIE K 780.4 lightheadedness 04/21/2012 HELLWIG [employer]ING [employer] SUPERVISOR, SHAHEEN E 719.41 joint pain, localized in the right shoulder 04/21/2012 HELLWIG [employer]ING [employer]ODUCTION SUPERVISOR, SHAHEEN E 780.4 lightheadedness 04/21/2012 HELLWIG [employer]ING PRODUCTION SUPERVISOR, SHAHEEN E 719.41 joint pain, localized in the right shoulder 04/21/2012 HELLWIG [employer]ING PRODUCTION SUPERVISOR, SHAHEEN E 780.4 lightheadedness 04/21/2012 PATINO DO, [...] VALERIE K 386.10 VERTIGO, PERIPHERAL UNSPECIFIED 07/29/2012 [facility] JAIM[facility] APRN E 386.10 VERTIGO, PERIPHERAL UNSPECIFIED [...] K 386.10 VERTIGO, PERIPHERAL UNSPECIFIED 07/29/2012 HELLWIG [employer]ING [employer]ODUCTION SUPERVISOR, SHAHEEN E 386.10 VERTIGO, PERIPHERAL UNSPECIFIED 07/29/2012 HELLWIG [employer]ING PRODUCTION SUPERVISOR, SHAHEEN E 386.10 VERTIGO, PERIPHERAL UNSPECIFIED 07/29/2012 [...] K 465.9 UPPER RESPIRATORY INFECTION 08/12/2012 HELLWIG [employer]ING [employer]ODUCTION SUPERVISOR, SHAHEEN E 465.9 UPPER RESPIRATORY INFECTION 08/12/2012 SHYAM DPM, ROXY 465.9 UPPER RESPIRATORY INFECTION 08/12/2012 HELLWIG [employer]ING [employer]ODUCTION SUPERVISOR, SHAHEEN E 465.9 UPPER RESPIRATORY INFECTION 08/12/2012 PATINO DO, VALERIE K 465.9 UPPER RESPIRATORY INFECTION 08/12/2012 HELLWIG [employer]ING [employer]ODUCTION SUPERVISOR, SHAHEEN E 465.9 UPPER RESPIRATORY INFECTION 08/12/2012 HELLWIG [employer]ING PRODUCTION SUPERVISOR, SHAHEEN E 465.9 UPPER RESPIRATORY INFECTION 08/12/2012 [...] YRS AND ABOVE, IM) 08/25/2012 PATINO DO, VALREIE K V04.81 FLU DX (3 YRS AND [...] (3 YRS AND ABOVE, IM) 08/25/2012 ZAKIYAFIONA SPRING PRODUCTION SUPERVISOR, SHAHEEN E V04.81 FLU DX (3 YRS AND ABOVE, IM) 08/25/2012 PATINO DO, VALERIE K V04.81 FLU DX (3 YRS AND ABOVE, IM) 08/25/2012 ZAKIYAFIONA SPRING PRODUCTION SUPERVISOR, SHAHEEN E V04.81 FLU DX (3 YRS AND ABOVE, IM) 08/25/2012 HELLANNA SPRING PRODUCTION SUPERVISOR, SHAHEEN E V04.81 FLU DX (3 YRS [...] 729.5 pain in the arms 09/22/2012 HELFIONA SPRING [employer]ODUCTION SUPERVISOR, SHAHEEN E 729.5 pain in the arms 09/22/2012 NADIA DDS, TILA M 729.5 pain in the arms 09/22/2012 PATINO DO, VALERIE K 729.5 pain in the arms 09/22/2012 PATINO DO, VALERIE K 729.5 pain in the arms 09/22/2012 IAN SPRING PRODUCTION SUPERVISOR, SHAHEEN E 729.5 pain in the arms 09/22/2012 SHYAM DPMNICKIIN 729.5 pain in the arms 09/22/2012 HELLANNA SPRING [employer]ODUCTION SUPERVISOR, SHAHEEN E 729.5 pain in the arms 09/22/2012 PATINO DO, VALERIE K 729.5 pain in the arms 09/22/2012 HELLWIG [employer]ING [employer]ODUCTION SUPERVISOR, SHAHEEN E 729.5 pain in the arms 09/22/2012 HELLWIG [employer]ING [employer]ODUCTION SUPERVISOR, SHAHEEN E 729.5 pain in the arms [...] K 790.6 ABNORMAL LIVER FUNCTION TEST 12/21/2012 [facility] SPRING PRODUCTION SUPERVISOR, SHAHEEN E 790.6 ABNORMAL LIVER FUNCTION TEST 12/21/2012 SHYAM DPM, ROXY 790.6 ABNORMAL LIVER FUNCTION TEST 12/21/2012 [facility] SPRING PRODUCTION SUPERVISOR, SHAHEEN E 790.6 ABNORMAL LIVER FUNCTION TEST 12/21/2012 PATINO DO, VALERIE K 790.6 ABNORMAL LIVER FUNCTION TEST 12/21/2012 HELLWIG [employer]ING [employer] SUPERVISOR, SHAHEEN E 790.6 ABNORMAL LIVER FUNCTION TEST 12/21/2012 HELWIG [employer]ING [employer]ODUCTION SUPERVISOR, SHAHEEN E 790.6 ABNORMAL LIVER FUNCTION TEST [...] VALERIE K 296.80 MO BIPOLAR NOS 12/28/2012 [facility] SHAHEEN E 296.80 MO BIPOLAR NOS 12/28/2012 NADIA DDS, TILA M 296.80 MO BIPOLAR NOS 12/28/2012 PATINO DO, VALERIE K 296.80 MO BIPOLAR NOS 12/28/2012 PATINO DO, VALERIE K 296.80 MO BIPOLAR NOS 12/28/2012 GADIEL SOSA APRNSIE E 296.80 MO BIPOLAR NOS 12/28/2012 SHYAM DPM, ROXY 296.80 MO BIPOLAR NOS 12/28/2012 [facility] J[facility] APRNE E 296.80 MO BIPOLAR NOS 12/28/2012 [...] VALERIE K 296.90 MOOD DISORDER NOS 03/09/2013 PTAINO DO, VALERIE K 296.90 MOOD DISORDER NOS [...] K 296.90 MOOD DISORDER NOS 03/09/2013 HELLWIG [employer] SUPERVISOR, SHAHEEN E 296.90 MOOD DISORDER NOS 03/09/2013 NADIA RONSTILA M 296.90 MOOD DISORDER NOS 03/09/2013 PATINO DO, VALERIE K 296.90 MOOD DISORDER NOS 03/09/2013 PATINO DO, VALERIE K 296.90 MOOD DISORDER NOS 03/09/2013 HELLWIG [employer] SUPERVISOR, SHAHEEN E 296.90 MOOD DISORDER NOS 03/09/2013 ROXY HOWE DPM 296.90 MOOD DISORDER NOS 03/09/2013 HELLWIG [employer]ING [employer]ODUCTION SUPERVISOR, SHAHEEN E 296.90 MOOD DISORDER NOS 03/09/2013 PATINO DO, VALERIE K 296.90 MOOD DISORDER NOS 03/09/2013 HELLWIG [employer]ING [employer]ODUCTION SUPERVISOR, SHAHEEN E 296.90 MOOD DISORDER NOS 03/09/2013 HELLWIG [employer]ING [employer]ODUCTION SUPERVISOR, SHAHEEN E 296.90 MOOD DISORDER NOS 03/09/2013 [...] 726.90 ENTHESOPATHY OF UNSPECIFIED SITE 03/23/2013 HELLWIG [employer] SUPERVISOR SHAHEEN E 380.10 INFECTIVE OTITIS EXTERNA UNSPECIFIED 03/23/2013 HELLWIG [employer]ING [employer] SUPERVISOR SHAHEEN E 461.9 SINUSITIS ACUTE 03/23/2013 HELLWIG [employer]ING [employer]ODUCTION SUPERVISOR SHAHEEN E 726.90 ENTHESOPATHY OF UNSPECIFIED SITE 03/23/2013 SHYAM DPM, ROXY 380.10 INFECTIVE OTITIS EXTERNA UNSPECIFIED 03/23/2013 SHYAM DPM, ROXY 461.9 SINUSITIS ACUTE 03/23/2013 SHYAM DPM, ROXY 726.90 ENTHESOPATHY OF UNSPECIFIED SITE 03/23/2013 HELLWIG [employer]ING [employer]ODUCTION SUPERVISOR SHAHEEN E 380.10 INFECTIVE OTITIS EXTERNA UNSPECIFIED 03/23/2013 HELLWIG SPRING PRODUCTION SUPERVISORGADIELSHAHEEN E 461.9 SINUSITIS ACUTE 03/23/2013 HELLWIG [employer]ING [employer]ODUCTION SUPERVISOR SHAHEEN E 726.90 ENTHESOPATHY OF UNSPECIFIED SITE 03/23/2013 PATINO DO, VALERIE K 380.10 INFECTIVE OTITIS EXTERNA UNSPECIFIED 03/23/2013 PATINO DO, VALERIE K 461.9 SINUSITIS ACUTE 03/23/2013 PATINO DO, VALERIE K 726.90 ENTHESOPATHY OF UNSPECIFIED SITE 03/23/2013 HELLWIG [employer]ING PRODUCTION SUPERVISOR SHAHEEN E 380.10 INFECTIVE OTITIS EXTERNA UNSPECIFIED 03/23/2013 HELLWIG SPRING PRODUCTION SUPERVISORGADIELSHAHEEN E 461.9 SINUSITIS ACUTE 03/23/2013 HELLWIG [employer]ING PRODUCTION SUPERVISOR SHAHEEN E 726.90 ENTHESOPATHY OF UNSPECIFIED SITE 03/23/2013 HELLWIG [employer]ING PRODUCTION SUPERVISOR SHAHEEN E 380.10 INFECTIVE OTITIS EXTERNA UNSPECIFIED 03/23/2013 HELLWIG [employer]ING PRODUCTION SUPERVISOR SHAHEEN E 461.9 SINUSITIS ACUTE 03/23/2013 SHAHEEN [...] K 300.02 AN GEN ANXIETY 04/05/2013 HELLWIG [employer]ODUCTION SUPERVISOR, SHAHEEN E 300.02 AN GEN ANXIETY 04/05/2013 [...] SHAHEEN E 300.02 AN GEN ANXIETY 04/05/2013 [facility] SHAHEEN E 300.02 AN GEN ANXIETY [...] K 780.50 SLEEP DISTURBANCE, UNSPECIFIED 07/26/2013 HELLANNA SPRING PRODUCTION SUPERVISOR, SHAHEEN E 780.50 SLEEP DISTURBANCE, UNSPECIFIED 07/26/2013 NADIA DDS, TILA M 780.50 SLEEP DISTURBANCE, UNSPECIFIED 07/26/2013 PATINO DO, VALERIE K 780.50 SLEEP DISTURBANCE, UNSPECIFIED 07/26/2013 PATINO DO, VALERIE K 780.50 SLEEP DISTURBANCE, UNSPECIFIED 07/26/2013 HELLANNA LOAIZA SHAHEEN E 780.50 SLEEP DISTURBANCE, UNSPECIFIED 07/26/2013 SHYAM DPMROXY 780.50 SLEEP DISTURBANCE, UNSPECIFIED 07/26/2013 HELLWIG [employer]ODUCTION SUPERVISOR, SHAHEEN E 780.50 SLEEP DISTURBANCE, UNSPECIFIED 07/26/2013 PATINO DO, VALERIE K 780.50 SLEEP DISTURBANCE, UNSPECIFIED 07/26/2013 HELLWIG [employer]ING PRODUCTION SUPERVISOR, SHAHEEN E 780.50 SLEEP DISTURBANCE, UNSPECIFIED 07/26/2013 HELLWIG [employer]ING PRODUCTION SUPERVISOR, SHAHEEN E 780.50 SLEEP DISTURBANCE, UNSPECIFIED 07/26/2013 [...] LOAIZA, SHAHEEN E 110.1 ONYCHOMYCOSIS 05/04/2014 HELLWIG [employer]ING [employer]ODUCTION SUPERVISOR, SHAHEEN E 356.9 NEUROPATHY 05/04/2014 SHYAM DPM, ROXY 110.1 ONYCHOMYCOSIS 05/04/2014 SHYAM DPM, ROXY 356.9 NEUROPATHY 05/04/2014 IAN SPRING PRODUCTION SUPERVISOR, SHAHEEN E 110.1 ONYCHOMYCOSIS 05/04/2014 HELLWIG [employer]ING PRODUCTION SUPERVISOR, SHAHEEN E 356.9 NEUROPATHY 05/04/2014 PATINO DO, VALERIE K 110.1 ONYCHOMYCOSIS 05/04/2014 PATINO DO, VALERIE K 356.9 NEUROPATHY 05/04/2014 HELLWIG [employer]ING PRODUCTION SUPERVISOR, SHAHEEN E 110.1 ONYCHOMYCOSIS 05/04/2014 HELLWIG [employer]ING PRODUCTION SUPERVISOR, SHAHEEN E 356.9 NEUROPATHY 05/04/2014 HELLWIG [employer]ING PRODUCTION SUPERVISOR, SHAHEEN E 110.1 ONYCHOMYCOSIS 05/04/2014 HELLWIG [employer]ING PRODUCTION SUPERVISOR SHAHEEN E 356.9 NEUROPATHY 05/04/2014 PATINO DO, VALERIE K 110.1 ONYCHOMYCOSIS 05/04/2014 PATINO DO, VALERIE K 356.9 NEUROPATHY 05/04/2014 PATINO DO, VALERIE K 110.1 ONYCHOMYCOSIS 05/04/2014 PATINO DO, VALERIE K 356.9 NEUROPATHY 05/04/2014 PATINO DO, VALERIE K 110.1 ONYCHOMYCOSIS 05/04/2014 PATINO DO, VALERIE K 356.9 NEUROPATHY 05/04/2014 PATINO DO, VALERIE K 110.1 ONYCHOMYCOSIS 05/04/2014 PATINO DO, VALERIE K 356.9 NEUROPATHY 06/15/2014 ELVA ÁLVAREZ SPRING PRODUCTION SUPERVISOR Ot 845.00 SPRAIN OF ANKLE NOS 06/15/2014 ELVA ÁLVAREZ SPRING PRODUCTION SUPERVISOR Ot E880.9 FALL ON STAIR/STEP NEC 07/15/2014 [...] TOE (ACQUIRED) 01/29/2015 VALERIE PATINO DO V72.31 MECHANICAL INSPECTOR EXAM, ROUTINE 01/29/2015 VALERIE PATINO DO K V76.10 BREAST CANCER SCREENING 01/29/2015 VALERIE PATINO DO K V76.51 COLON CANCER SCREENING 01/29/2015 VALERIE PATINO DO V72.31 MECHANICAL INSPECTOR EXAM, ROUTINE 01/29/2015 VALERIE PATINO DO K V76.10 BREAST CANCER SCREENING 01/29/2015 GADIEL PATINO DOA K V76.51 COLON CANCER SCREENING 01/29/2015 GADIEL PATINO DOA K V72.31 MECHANICAL INSPECTOR EXAM, ROUTINE 01/29/2015 GADIEL PATINO DOA K [...] E849.0 02/12/2015 Ot E888.9 02/12/2015 SANDRA SALMERON SPRING PRODUCTION SUPERVISOR Ot V76.12 02/14/2015 SANDRA SALMERON APRN Ot [...] E849.0 04/15/2015 Ot E888.9 04/15/2015 SANDRA SALMERON SPRING PRODUCTION SUPERVISOR Ot V76.12 04/15/2015 SHAHEEN SOSA SPRING PRODUCTION SUPERVISOR Ot 433.10 04/15/2015 SHAHEEN SOSA SPRING PRODUCTION SUPERVISOR Ot 433.30 04/15/2015 SHAHEEN SOSA SPRING PRODUCTION SUPERVISOR Ot 780.2 04/22/2015 AMBER HERNANDEZ MD Ot 250.40 DIAB W RENAL MANIFEST, TYPE II OR UNSPEC 04/22/2015 AMBER HERNANDEZ MD Ot 250.60 DIAB W NEURO MANIFEST, TYPE II OR UNSPEC 04/22/2015 AMBER HERNANDEZ MD Ot 272.0 PURE HYPERCHOLESTEROLEM 04/22/2015 AMBER HERNANDEZ MD Ot 272.1 PURE HYPERGLYCERIDEMIA 04/22/2015 AMBER HERNADNEZ MD Ot 272.4 HYPERLIPIDEMIA NEC/NOS 04/22/2015 AMBER HERNANDEZ MD Ot 357.2 NEUROPATHY IN DIABETES 04/22/2015 AMBER HERNANDEZ MD Ot 403.90 HYPTNSV CHR KID DIS, UNSPEC, W CHR KD ST 04/22/2015 AMBER HERNANDEZ MD Ot 414.01 CORONARY ATHEROSCLEROSIS OF [place] CORON 04/22/2015 AMBER HERNANDEZ MD Ot 530.81 ESOPHAGEAL REFLUX 04/22/2015 AMBER HERNANDEZ MD Ot 583.81 NEPHRITIS NOS IN OTH DIS 04/22/2015 AMBER HERNANDEZ MD Ot 585.9 CHRONIC KIDNEY DISEASE, UNSPECIFIED 04/22/2015 AMBER HERNANDEZ MD Ot 593.9 RENAL URETERAL DIS NOS 04/22/2015 AMBER HERNANDEZ MD Ot 786.50 CHEST PAIN NOS 04/22/2015 AMBRE HERNANDEZ MD Ot V15.81 HX OF PAST [...] ADAMS MD Ot 414.01 CORONARY ATHEROSCLEROSIS OF [place] CORON 05/22/2015 KETAN ADAMS MD Ot 585.9 CHRONIC KIDNEY DISEASE, UNSPECIFIED 05/22/2015 KETAN ADAMS MD Ot 794.30 [facility] CARDIOVASC STUDY NOS 05/22/2015 KETAN ADAMS MD Ot V58.69 OTH MED,LT,CURRENT USE 08/26/2015 ELVA ÁLVAREZ SPRING PRODUCTION SUPERVISOR Ot E11.65 TYPE 2 DIABETES MELLITUS WITH HYPERGLYCE 08/27/2015 Ot 722.52 08/27/2015 Ot V45.4 08/27/2015 Ot V81.5 08/27/2015 Ot 780.2 08/27/2015 Ot 780.2 08/27/2015 Ot 729.5 08/27/2015 Ot 908.9 08/27/2015 Ot E929.3 08/27/2015 Ot 726.10 08/27/2015 Ot 840.4 08/27/2015 Ot E000.8 08/27/2015 Ot E849.0 08/27/2015 Ot E888.9 08/27/2015 SANDRA SALMERON SPRING PRODUCTION SUPERVISOR Ot V76.12 08/27/2015 SHAHEEN SOSA SPRING PRODUCTION SUPERVISOR Ot 433.10 08/27/2015 SHAHEEN SOSA SPRING PRODUCTION SUPERVISOR Ot 433.30 08/27/2015 SHAHEEN SOSA SPRING PRODUCTION SUPERVISOR Ot 780.2 08/27/2015 KETAN ADAMS MD Ot 786.50 10/18/2015 Ot 722.52 10/18/2015 Ot V45.4 10/18/2015 Ot V81.5 10/18/2015 Ot 780.2 10/18/2015 Ot 780.2 10/18/2015 Ot 729.5 10/18/2015 Ot 908.9 10/18/2015 Ot E929.3 10/18/2015 Ot 726.10 10/18/2015 Ot 840.4 10/18/2015 Ot E000.8 10/18/2015 Ot E849.0 10/18/2015 Ot E888.9 10/18/2015 SANDRA SALMERON SPRING PRODUCTION SUPERVISOR Ot V76.12 10/18/2015 SHAHEEN SOSA SPRING PRODUCTION SUPERVISOR Ot 433.10 10/18/2015 SHAHEEN SOSA SPRING PRODUCTION SUPERVISOR Ot 433.30 10/18/2015 SHAHEEN SOSA SPRING PRODUCTION SUPERVISOR Ot 780.2 10/18/2015 BRYAN MC, KETAN Nolasco Ot 786.50 10/18/2015 JAC MC, DAVID James Ot K21.9 GASTRO-ESOPHAGEAL REFLUX DISEASE WITHOUT 10/18/2015 JAC MC, DAVID James Ot R07.9 CHEST PAIN, UNSPECIFIED 11/26/2015 ELVA ÁLVAREZ APRN Ot S80.12XA CONTUSION OF LEFT LOWER LEG, INITIAL ENC 11/26/2015 ELVA ÁLVAREZ SPRING PRODUCTION SUPERVISOR Ot X58.XXXA EXPOSURE TO OTHER SPECIFIED FACTORS, INI 11/26/2015 ELVA ÁLVAREZ SPRING PRODUCTION SUPERVISOR Ot Y99.8 OTHER EXTERNAL CAUSE STATUS 06/14/2016 [...] 06/14/2016 ROHIT CAMPA DO Ot Y92.[address] [facility] (PRIVATE 06/14/2016 ROHIT CAMPA DO [...] Ot E888.9 FALL NOS 07/14/2016 SANDRA SALMERON SPRING PRODUCTION SUPERVISOR Ot V76.12 OTH SCREEN MAMMO-MALIGN NEOPLASM OF [place] 07/14/2016 SHAHEEN SOSA E SPRING PRODUCTION SUPERVISOR Ot 433.10 CAROTID ARTERY OCCLUSION W O CEREBRAL IN 07/14/2016 SHAHEEN SOSA SPRING PRODUCTION SUPERVISOR Ot 433.30 MULT BILTRAL ARTERY OCCLUSION WO CEREBRA 07/14/2016 SHAHEEN SOSA E SPRING PRODUCTION SUPERVISOR Ot 780.2 SYNCOPE AND COLLAPSE 07/14/2016 BRYAN MC, KETAN Nolasco Ot 786.50 CHEST PAIN NOS 07/15/2016 DAIN MONTANEZ Ot E78.2 MIXED HYPERLIPIDEMIA 07/15/2016 DAIN MONTANEZ Ot I25.10 ATHSCL HEART DISEASE OF [place] CORONARY 07/15/2016 DAIN MONTANEZ Ot R42 DIZZINESS AND GIDDINESS 07/15/2016 DAIN MONTANEZ Ot R55 SYNCOPE AND COLLAPSE 07/28/2016 ADIN MONTANEZ Ot E78.2 MIXED HYPERLIPIDEMIA 07/28/2016 DAIN MONTANEZ Ot I25.10 ATHSCL HEART DISEASE OF [place] CORONARY 07/28/2016 DAIN MONTANEZ Ot R42 DIZZINESS [...] E888.9 FALL NOS 08/11/2016 FAVIOLA, SANDRA A SPRING PRODUCTION SUPERVISOR Ot V76.12 OT SCREEN MAMMO-MALIGN NEOPLASM OF [place] 08/11/2016 SHAHEEN SOSA SPRING PRODUCTION SUPERVISOR Ot 433.10 CAROTID ARTERY OCCLUSION W O CEREBRAL IN 08/11/2016 SHAHEEN SOSA SPRING PRODUCTION SUPERVISOR Ot 433.30 MULT BILTRAL ARTERY OCCLUSION WO CEREBRA 08/11/2016 SHAHEEN SOSA SPRING PRODUCTION SUPERVISOR Ot 780.2 SYNCOPE AND COLLAPSE 08/11/2016 BRYAN MC, KETAN Nolasco Ot 786.50 CHEST PAIN NOS 08/11/2016 DAIN MONTANEZ Ot E78.2 MIXED HYPERLIPIDEMIA 08/11/2016 DAIN MONTANEZ Ot I25.10 ATHSCL HEART DISEASE OF [place] CORONARY 08/11/2016 DAIN MONTANEZ Ot R42 DIZZINESS [...] E888.9 FALL NOS 11/03/2016 SANDRA SALMERON A SPRING PRODUCTION SUPERVISOR Ot V76.12 OTH SCREEN MAMMO-MALIGN NEOPLASM OF [place] 11/03/2016 SHAHEEN SOSA E SPRING PRODUCTION SUPERVISOR Ot 433.10 CAROTID ARTERY OCCLUSION W O CEREBRAL IN 11/03/2016 SHAHEEN SOSA E SPRING PRODUCTION SUPERVISOR Ot 433.30 MULT BILTRAL ARTERY OCCLUSION WO CEREBRA 11/03/2016 SHAHEEN SOSA E SPRING PRODUCTION SUPERVISOR Ot 780.2 SYNCOPE AND COLLAPSE 11/03/2016 BRYAN MC, KETAN Nolasco Ot 786.50 CHEST PAIN NOS 11/03/2016 DAIN MONTANEZ Ot E78.2 MIXED HYPERLIPIDEMIA 11/03/2016 DAIN MONTANEZ Ot I25.10 ATHSCL HEART DISEASE OF [place] CORONARY 11/03/2016 DAIN MONTANEZ Ot R42 DIZZINESS [...] MD Ot I25.10 ATHSCL HEART DISEASE OF [place] CORONARY 12/23/2016 JUDI RICHARDS MD Ot K21.9 [...] E888.9 FALL NOS 01/26/2017 SANDRA SALMERON A SPRING PRODUCTION SUPERVISOR Ot V76.12 OTH SCREEN MAMMO-MALIGN NEOPLASM OF [place] 01/26/2017 SHAHEEN SOSA SPRING PRODUCTION SUPERVISOR Ot 433.10 CAROTID ARTERY OCCLUSION W O CEREBRAL IN 01/26/2017 SHAHEEN SOSA SPRING PRODUCTION SUPERVISOR Ot 433.30 MULT BILTRAL ARTERY OCCLUSION WO CEREBRA 01/26/2017 SHAHEEN SOSA SPRING PRODUCTION SUPERVISOR Ot 780.2 SYNCOPE AND COLLAPSE 01/26/2017 BRYAN MC, KETAN Nolasco Ot 786.50 CHEST PAIN NOS 01/26/2017 DAIN MONTANEZ Ot E78.2 MIXED HYPERLIPIDEMIA 01/26/2017 DAIN MONTANEZ Ot I25.10 ATHSCL HEART DISEASE OF [place] CORONARY 01/26/2017 DAIN MONTANEZ Ot R42 DIZZINESS AND GIDDINESS 01/26/2017 DAIN MONTANEZ Ot R55 SYNCOPE AND COLLAPSE 01/26/2017 DAIN MONTAENZ Ot E78.2 MIXED HYPERLIPIDEMIA 01/26/2017 LINDA MANSFIELD DO Ot E11.9 TYPE 2 DIABETES MELLITUS WITHOUT COMPLIC 01/26/2017 LINDA MANSFIELD DO Ot K20.9 ESOPHAGITIS, UNSPECIFIED 01/26/2017 LINDA MANSFIELD DO Ot K29.70 GASTRITIS, UNSPECIFIED, WITHOUT BLEEDING 01/26/2017 LINDA MANSFIELD DO Ot Z79.4 DETENTION (CURRENT) USE OF INSULIN 01/27/2017 LINDA MANSFIELD DO Ot E11.9 TYPE 2 DIABETES MELLITUS WITHOUT COMPLIC 01/27/2017 LINDA MANSFIELD DO Ot K20.9 ESOPHAGITIS, UNSPECIFIED 01/27/2017 LINDA MANSFIELD DO Ot K29.70 GASTRITIS, UNSPECIFIED, WITHOUT BLEEDING 01/27/2017 MANSFIELD DO, LINDA D Ot Z79.4 HYDRAULIC MECHANIC (CURRENT) USE OF INSULIN 02/01/2017 MANSFIELD DO, LINDA D Ot E11.9 TYPE 2 DIABETES MELLITUS WITHOUT COMPLIC 02/01/2017 MANSFIELD DO, LINDA D Ot K20.9 ESOPHAGITIS, UNSPECIFIED 02/01/2017 MANSFIELD DO, LINDA D Ot K29.70 GASTRITIS, UNSPECIFIED, WITHOUT BLEEDING 02/01/2017 MANSFIELD DO, LINDA D Ot Z79.4 HYDRAULIC MECHANIC (CURRENT) USE OF INSULIN 02/04/2017 MANSFIELD DO, LINDA D Ot E11.9 TYPE 2 DIABETES MELLITUS WITHOUT COMPLIC 02/04/2017 MANSFIELD DO, LINDA D Ot K20.9 ESOPHAGITIS, UNSPECIFIED 02/04/2017 MANSFIELD DO, LINDA D Ot K29.70 GASTRITIS, UNSPECIFIED, WITHOUT BLEEDING 02/04/2017 MANSFIELD DO, LINDA D Ot Z79.4 DETENTION (CURRENT) USE OF INSULIN 02/06/2017 MANSFIELD DO, LINDA D Ot E11.9 TYPE 2 DIABETES MELLITUS WITHOUT COMPLIC 02/06/2017 MANSFIELD DO, LINDA D Ot K20.9 ESOPHAGITIS, UNSPECIFIED 02/06/2017 MANSFIELD DO, LINDA D Ot K29.70 GASTRITIS, UNSPECIFIED, WITHOUT BLEEDING 02/06/2017 MANSFIELD DO, LINDA D Ot Z79.4 DETENTION (CURRENT) USE OF INSULIN 02/10/2017 Ot 780.2 [...] Ot E888.9 FALL NOS 02/10/2017 SANDRA SALMERON SPRING PRODUCTION SUPERVISOR Ot V76.12 OTH SCREEN MAMMO-MALIGN NEOPLASM OF [place] 02/10/2017 SHAHEEN SOSA SPRING PRODUCTION SUPERVISOR Ot 433.10 CAROTID ARTERY OCCLUSION W O CEREBRAL IN 02/10/2017 SHAHEEN SOSA SPRING PRODUCTION SUPERVISOR Ot 433.30 MULT BILTRAL ARTERY OCCLUSION WO CEREBRA 02/10/2017 SHAHEEN SOSA APRN Ot 780.2 SYNCOPE AND COLLAPSE 02/10/2017 BRYAN MC, KETAN Nolasco Ot 786.50 CHEST PAIN NOS 02/10/2017 DAIN MONTANEZ Ot E78.2 MIXED HYPERLIPIDEMIA 02/10/2017 DAIN MONTANEZ Ot I25.10 ATHSCL HEART DISEASE OF [place] CORONARY 02/10/2017 DAIN MONTANEZ Ot R42 DIZZINESS AND GIDDINESS 02/10/2017 DAIN MONTANEZ Ot R55 SYNCOPE AND COLLAPSE 02/10/2017 DAIN MONTANEZ Ot E78.2 MIXED HYPERLIPIDEMIA 02/19/2017 OSWALDO ALTAMIRANO SPRING PRODUCTION SUPERVISOR Ot Z12.31 ENCNTR SCREEN MAMMOGRAM FOR MALIGNANT NE 03/09/2017 OSWALDO ALTAMIRANO SPRING PRODUCTION SUPERVISOR Ot N64.89 OTHER SPECIFIED DISORDERS OF BREAST 03/14/2017 OSWALDO ALTAMIRANO SPRING PRODUCTION SUPERVISOR Ot N64.89 OTHER SPECIFIED DISORDERS OF BREAST 03/19/2017 OSWALDO ALTAMIRANO SPRING PRODUCTION SUPERVISOR Ot N64.89 OTHER SPECIFIED DISORDERS OF BREAST [...] OTHER EXTERNAL CAUSE STATUS 09/14/2017 OSWALDO ALTAMIRANO SPRING PRODUCTION SUPERVISOR Ot N64.89 OTHER SPECIFIED DISORDERS OF BREAST 09/24/2017 OSWALDO ALTAMIRANO SPRING PRODUCTION SUPERVISOR Ot N64.89 OTHER SPECIFIED DISORDERS OF BREAST 11/10/2017 OSWALDO ALTAMIRANO SPRING PRODUCTION SUPERVISOR Ot E11.42 TYPE 2 DIABETES MELLITUS WITH DIABETIC P 11/10/2017 OSWALDO ALTAMIRANO SPRING PRODUCTION SUPERVISOR Ot N28.9 DISORDER OF KIDNEY AND URETER, UNSPECIFI 03/29/2018 ANIBAL SALMERONALCIDES Ford SPRING PRODUCTION SUPERVISOR Ot V76.12 OTH SCREEN MAMMO-MALIGN NEOPLASM OF [place] 03/29/2018 SHAHEEN SOSA SPRING PRODUCTION SUPERVISOR Ot 433.10 CAROTID ARTERY OCCLUSION W O CEREBRAL IN 03/29/2018 SHAHEEN SOSA SPRING PRODUCTION SUPERVISOR Ot 433.30 MULT BILTRAL ARTERY OCCLUSION WO CEREBRA 03/29/2018 SHAHEEN SOSA SPRING PRODUCTION SUPERVISOR Ot 780.2 SYNCOPE AND COLLAPSE 03/29/2018 BRYAN MC, KETAN Nolasco Ot 786.50 CHEST PAIN NOS 03/29/2018 DAIN MONTANEZ Ot E78.2 MIXED HYPERLIPIDEMIA 03/29/2018 DAIN MONTANEZ Ot I25.10 ATHSCL HEART DISEASE OF [place] CORONARY 03/29/2018 DAIN MONTANEZ Ot R42 DIZZINESS AND GIDDINESS 03/29/2018 DAIN MONTANEZ Ot R55 SYNCOPE AND COLLAPSE 03/29/2018 DAIN MONTANEZ Ot E78.2 MIXED HYPERLIPIDEMIA 03/29/2018 OSWALDO ALTAMIRANO [employer]ING [employer]ODUCTION SUPERVISOR Ot Z12.31 ENCNTR SCREEN MAMMOGRAM FOR MALIGNANT NE 03/29/2018 OSWALDO ALTAMIRANO [employer] SUPERVISOR Ot N64.89 OTHER SPECIFIED DISORDERS OF BREAST 03/29/2018 JUDI RICHARDS MD Ot M54.2 CERVICALGIA 03/29/2018 JUDI RICHARDS MD, Ot R51 HEADACHE 03/29/2018 JUDI RICHARDS MD, Ot S09.90XA UNSPECIFIED INJURY OF HEAD, INITIAL ENCO 03/29/2018 JUDI RICHARDS MD, Ot X58.XXXA EXPOSURE TO OTHER SPECIFIED FACTORS, INI 03/29/2018 JUDI RICHARDS MD N Ot Y99.8 OTHER EXTERNAL CAUSE STATUS 03/29/2018 ADARSHOSWALDO Navya [employer] SUPERVISOR Ot N64.89 OTHER SPECIFIED DISORDERS OF BREAST 03/29/2018 ADARSHOSWALDO Navya [employer]ING [employer]ODUCTION SUPERVISOR Ot E11.42 TYPE 2 DIABETES MELLITUS WITH DIABETIC P 03/29/2018 ADARSHOSWALDO Navya [employer]ING [employer]ODUCTION SUPERVISOR Ot N28.9 DISORDER OF KIDNEY AND URETER, [...] PAIN 04/22/2018 SHAHID FLORES MD Ot Z79.4 DETENTION (CURRENT) USE OF INSULIN 04/22/2018 SHHAID FLORES MD, Ot Z79.82 HYDRAULIC MECHANIC (CURRENT) USE OF ASPIRIN 04/22/2018 SHAHID FLORES [...] K21.9 GASTRO-ESOPHAGEAL REFLUX DISEASE WITHOUT 04/25/2018 SHAHID FLORES MD Ot R07.89 OTHER CHEST PAIN 04/25/2018 SHAHID FLORES MD Ot Z79.4 HYDRAULIC MECHANIC (CURRENT) USE OF INSULIN 04/25/2018 SHAHID FLORES MD Ot Z79.82 HYDRAULIC MECHANIC (CURRENT) USE OF ASPIRIN 04/25/2018 SHAHID FLORES [...] MONTANEZ Ot I25.10 ATHSCL HEART DISEASE OF [place] CORONARY 05/30/2018 DAIN MONTANEZ Ot R42 DIZZINESS [...] DISEASE, STAGE 3 (MODERAT 05/30/2018 SANDRA SALMERON [employer] SUPERVISOR Ot V76.12 OTH SCREEN MAMMO-MALIGN NEOPLASM OF [place] 05/30/2018 SHAHEEN SOSA [employer]ING [employer]ODUCTION SUPERVISOR Ot 433.10 CAROTID ARTERY OCCLUSION W O CEREBRAL IN 05/30/2018 SHAHEEN SOSA [employer]ING [employer]ODUCTION SUPERVISOR Ot 433.30 MULT BILTRAL ARTERY OCCLUSION WO CEREBRA 05/30/2018 SHAHEEN SOSA APRN Ot 780.2 SYNCOPE AND COLLAPSE 05/30/2018 BRYAN MC, KETAN Nolasco Ot 786.50 CHEST PAIN NOS 05/30/2018 DAIN MONTANEZ Ot E78.2 MIXED HYPERLIPIDEMIA 05/30/2018 DAIN MONTANEZ Ot I25.10 ATHSCL HEART DISEASE OF [place] CORONARY 05/30/2018 DAIN MONTANEZ Ot R42 DIZZINESS [...] SPECIFIED DISORDERS OF BREAST 05/30/2018 OSWALDO ALTAMIRANO [employer]ING [employer] SUPERVISOR Ot E11.42 TYPE 2 DIABETES MELLITUS WITH DIABETIC P 05/30/2018 OSWALDO ALTAMIRANO OJSSE Ot N28.9 DISORDER OF KIDNEY AND URETER, [...] Ot R82.90 UNSPECIFIED ABNORMAL FINDINGS IN URINE 10/19/2018 GEOVANI LUTZ Ot E11.40 TYPE 2 DIABETES MELLITUS WITH DIABETIC N 10/19/2018 GEOVANI LUTZ Ot E78.00 PURE HYPERCHOLESTEROLEMIA, UNSPECIFIED 10/19/2018 GEOVANI LUTZ Ot F31.9 BIPOLAR DISORDER, UNSPECIFIED 10/19/2018 BERNOT, GEOVANI Ot F41.9 ANXIETY DISORDER, UNSPECIFIED 10/19/2018 BERNOT, GEOVANI Ot K21.9 GASTRO-ESOPHAGEAL REFLUX DISEASE WITHOUT 10/19/2018 BERNOT, GEOVANI Ot R10.11 RIGHT UPPER QUADRANT PAIN 10/19/2018 BERNOT, GEOVANI Ot R74.8 ABNORMAL LEVELS OF OTHER SERUM ENZYMES 10/19/2018 BERNKYLIE, GEOVANI Ot Z79.4 DETENTION (CURRENT) USE OF INSULIN 10/19/2018 BERNOT, GEOVANI Ot Z79.51 HYDRAULIC MECHANIC (CURRENT) USE OF INHALED STERO 10/19/2018 WALTEROT, GEOVANI Ot Z79.82 DETENTION (CURRENT) USE OF ASPIRIN 10/19/2018 BERNOT, GEOVANI Ot Z82.49 FAMILY HX OF ISCHEM HEART DIS AND OTH DI 10/19/2018 BOLIVAR GEOVANI Ot Z87.19 PERSONAL HISTORY OF OTHER DISEASES OF TH 10/19/2018 BERNKYLIE GEOVANI Ot Z87.448 PERSONAL HISTORY OF OTHER DISEASES OF UR 10/19/2018 BOLIVAR GEOVANI Ot Z87.891 PERSONAL HISTORY OF NICOTINE DEPENDENCE 10/19/2018 BERNOT, GEOVANI Ot Z88.5 ALLERGY STATUS TO NARCOTIC AGENT STATUS 10/19/2018 BERNOT, GEOVANI Ot Z90.49 ACQUIRED ABSENCE OF OTHER SPECIFIED PART 10/19/2018 BERNOT, GEOVANI Ot Z90.710 ACQUIRED ABSENCE OF BOTH CERVIX AND UTER 10/19/2018 BERNOT, GEOVANI Ot Z98.890 OTHER SPECIFIED POSTPROCEDURAL STATES 10/21/2018 BOLIVAR GEOVANI Ot E11.40 TYPE 2 DIABETES MELLITUS WITH DIABETIC N 10/21/2018 BERNOT, GEOVANI Ot E78.00 PURE HYPERCHOLESTEROLEMIA, UNSPECIFIED 10/21/2018 BERNOT, GEOVANI Ot F31.9 BIPOLAR DISORDER, UNSPECIFIED 10/21/2018 BERNOT, GEOVANI Ot F41.9 ANXIETY DISORDER, UNSPECIFIED 10/21/2018 BERNOT, GEOVANI Ot K21.9 GASTRO-ESOPHAGEAL REFLUX DISEASE WITHOUT 10/21/2018 BERNOT, GEOVANI Ot R10.11 RIGHT UPPER QUADRANT PAIN 10/21/2018 BERNOT, GEOVANI Ot R74.8 ABNORMAL LEVELS OF OTHER SERUM ENZYMES 10/21/2018 BERNOT, GEOVANI Ot Z79.4 HYDRAULIC MECHANIC (CURRENT) USE OF INSULIN 10/21/2018 BERNOT, GEOVANI Ot Z79.51 HYDRAULIC MECHANIC (CURRENT) USE OF INHALED STERO 10/21/2018 SAADIA LUTZIS Ot Z79.82 DETENTION (CURRENT) USE OF ASPIRIN 10/21/2018 BERNKYLIESAADIAIS Ot Z82.49 FAMILY HX OF ISCHEM HEART DIS AND OTH DI 10/21/2018 BOLIAVRSAADIAIS Ot Z87.19 PERSONAL HISTORY OF OTHER DISEASES OF TH 10/21/2018 BERNKYLIESAADIAIS Ot Z87.448 PERSONAL HISTORY OF OTHER DISEASES OF UR 10/21/2018 BERNKYLIESAADIAIS Ot Z87.891 PERSONAL HISTORY OF NICOTINE DEPENDENCE 10/21/2018 BERNSAADIA ESPINALIS Ot Z88.5 ALLERGY STATUS TO NARCOTIC AGENT STATUS 10/21/2018 BERNSAADIA ESPINALIS Ot Z90.49 ACQUIRED ABSENCE OF OTHER SPECIFIED PART 10/21/2018 BERNSAADIA ESPINALIS Ot Z90.710 ACQUIRED ABSENCE OF BOTH CERVIX AND UTER 10/21/2018 GEOVANI LUTZ Ot Z98.890 OTHER SPECIFIED POSTPROCEDURAL STATES 11/01/2018 ELVA ÁLVAREZ APRN Ot E11.40 TYPE 2 DIABETES MELLITUS WITH DIABETIC N 11/01/2018 ELVA ÁLVAREZ APRN Ot E78.00 PURE HYPERCHOLESTEROLEMIA, UNSPECIFIED 11/01/2018 ELVA ÁLVAREZ APRN Ot F31.9 BIPOLAR DISORDER, UNSPECIFIED 11/01/2018 ELVA ÁLVAREZ APRN Ot F41.9 ANXIETY DISORDER, UNSPECIFIED 11/01/2018 ELVA ÁLVAREZ APRN Ot K21.9 GASTRO-ESOPHAGEAL REFLUX DISEASE WITHOUT 11/01/2018 ELVA ÁLVAREZ APRN Ot R11.2 NAUSEA WITH VOMITING, UNSPECIFIED 11/01/2018 ELVA ÁLVAREZ APRN Ot Z79.4 DETENTION (CURRENT) USE OF INSULIN 11/01/2018 ELVA ÁLVAREZ APRN Ot Z79.51 HYDRAULIC MECHANIC (CURRENT) USE OF INHALED STERO 11/01/2018 ELVA ÁLVAREZ APRN Ot Z79.82 HYDRAULIC MECHANIC (CURRENT) USE OF ASPIRIN 11/01/2018 ELVA ÁLVAREZ APRN Ot Z88.5 ALLERGY STATUS TO NARCOTIC AGENT STATUS 11/01/2018 ELVA ÁLVAREZ APRN Ot Z90.49 ACQUIRED ABSENCE OF OTHER SPECIFIED PART 11/01/2018 ELVA ÁLVAREZ APRN Ot Z90.710 ACQUIRED ABSENCE OF BOTH CERVIX AND UTER 11/03/2018 ELVA ÁLVAREZ APRN Ot E11.40 TYPE 2 DIABETES MELLITUS WITH DIABETIC N 11/03/2018 ELVA ÁLVAREZ APRN Ot E78.00 PURE HYPERCHOLESTEROLEMIA, UNSPECIFIED 11/03/2018 ELVA ÁLVAREZ APRN Ot F31.9 BIPOLAR DISORDER, UNSPECIFIED 11/03/2018 ELVA ÁLVAREZ APRN Ot F41.9 ANXIETY DISORDER, UNSPECIFIED 11/03/2018 ELVA ÁLVAREZ APRN Ot K21.9 GASTRO-ESOPHAGEAL REFLUX DISEASE WITHOUT 11/03/2018 ELVA ÁLVAREZ APRN Ot R11.2 NAUSEA WITH VOMITING, UNSPECIFIED 11/03/2018 ELVA ÁLVAREZ APRN Ot Z79.4 DETENTION (CURRENT) USE OF INSULIN 11/03/2018 ELVA ÁLVAREZ APRN Ot Z79.51 DETENTION (CURRENT) USE OF INHALED STERO 11/03/2018 ELVA ÁLVAREZ APRN Ot Z79.82 HYDRAULIC MECHANIC (CURRENT) USE OF ASPIRIN 11/03/2018 ELVA ÁLVAREZ APRN Ot Z88.5 ALLERGY STATUS TO NARCOTIC AGENT STATUS 11/03/2018 ELVA ÁLVAREZ APRN Ot Z90.49 ACQUIRED ABSENCE OF OTHER SPECIFIED PART 11/03/2018 ELVA ÁLVAREZ APRN Ot Z90.710 ACQUIRED ABSENCE OF BOTH CERVIX AND UTER Procedures Code Description [place] [address] XRAY HUMERUS RIGHT 2 VIEWS 09/22/2012 17533 MRI EXTREMITY JOINT, UPPER RIGHT, W/O CONTRAST 09/27/2012 Orthopedi Mason Zarate 09/27/2012 03411 ROUTINE VENIPUNCTURE 12/21/2012 48831 A1C (IN-HOUSE) 12/21/2012 96125 LIVER PANEL (LFT) 12/21/2012 22829 ROUTINE VENIPUNCTURE 01/17/2013 39890 LIVER PANEL (LFT) 01/17/2013 25184 VITAMIN D 25-HYDROXY (D2,D3 , TOTAL) 01/17/2013 62318 TSH 01/17/2013 23758 UA LONG DIP 02/28/2013 Neurology Yousuf Chadwick 02/28/2013 03087 A1C (IN-HOUSE) 03/30/2013 70343 MICRO ALBUMIN-IN HOUSE 03/30/2013 22878 STREP A (IN-HOUSE) 07/17/2013 PHYSICAL OCCUPATIONAL THERAPY, 07/27/2013 72657 SLEEP STUDY 07/28/2013 21635 A1C (IN-HOUSE) 08/03/2013 PODIATRY ROXY HOWE 08/24/2013 00652 A1C (IN-HOUSE) 11/13/2013 14081 MICRO ALBUMIN-IN HOUSE 11/13/2013 84848 UA LONG DIP 11/13/2013 88722 A1C (IN-HOUSE) 03/05/2014 92504 XRAY ANKLE R COMP MIN, 3 VIEWS 03/19/2014 PODIATRY ROXY HOWE 03/19/2014 93203 ROUTINE VENIPUNCTURE 06/18/2014 36247 A1C (IN-HOUSE) 06/18/2014 96533 CMP 06/18/2014 14418 LIPID PANEL 06/18/2014 89081 TSH 06/18/2014 90448 CBC 06/18/2014 Otolaryng Nay Rowan 08/15/2014 31382 A1C (IN-HOUSE) 09/17/2014 13679 INFLUENZA A & B (IN-HOUSE) 11/03/2014 66398 A1C (IN-HOUSE) 12/24/2014 44721 HEMOGLOBIN (IN-HOUSE) 12/24/2014 11091 MICRO ALBUMIN-IN HOUSE 12/24/2014 13288 MAMMOGRAM, SCREENING 01/29/2015 GENERAL S Linda Mansfield 01/29/2015 97815 HOLTER MONITOR (OUTPATIENT) 02/07/2015 55039 US CAROTID DOPPLER 02/07/2015 Results Test Result [...] LDL Cholesterol Calc 81 mg/dL 0-99 Thyroid [place] Profile - 05/13/17 09:29 TSH 2.410 uIU/mL [...] 08/23/18 09:35 Blood monocytes/100 leukocytes 7 % NRG Manual blood segmented neutrophils/100 leukocytes 52 % NRG Manual blood lymphocytes/100 leukocytes 30 % NRG Manual eosinophils/100 leukocytes in nose 11 % NRG Blood erythrocyte morphology finding identification NORMAL NRG Serum iron and total iron binding capacity [...] urine sediment by light microscopy NONE NRG Complete blood count (CBC) with automated white blood cell (WBC) differential - 11/01/18 18:39 Blood leukocytes automated count (number/volume) 7.4 10*3/uL 4.3-11.0 Blood erythrocytes automated count (number/volume) 4.38 10*6/uL 4.35-5.85 Venous blood hemoglobin measurement (mass/volume) 14.1 g/dL 11.5-16.0 Blood hematocrit (volume fraction) 41 % 35-52 Automated erythrocyte mean corpuscular volume 93 [foz_us] 80-99 Automated erythrocyte mean corpuscular hemoglobin (mass per erythrocyte) 32 pg 25-34 Automated erythrocyte mean corpuscular hemoglobin concentration measurement ( mass/volume) 35 g/dL 32-36 Automated erythrocyte distribution width ratio 12.6 % 10.0-14.5 Automated blood platelet count (count/volume) 227 10*3/uL 130-400 Automated blood platelet mean volume measurement 10.0 [foz_us] 7.4-10.4 Automated blood neutrophils/100 leukocytes 58 % 42-75 Automated blood lymphocytes/100 leukocytes 28 % 12-44 Blood monocytes/100 leukocytes 6 % 0-12 Automated blood eosinophils/100 leukocytes 7 % 0-10 Automated blood basophils/100 leukocytes 1 % 0-10 Blood neutrophils automated count (number/volume) 4.3 10*3 1.8-7.8 Blood lymphocytes automated count (number/volume) 2.0 10*3 1.0-4.0 Blood monocytes automated count (number/volume) 0.5 10*3 0.0-1.0 Automated eosinophil count 0.5 10*3/uL 0.0-0.3 Automated blood basophil count (count/volume) 0.1 10*3/uL 0.0-0.1 Comprehensive metabolic panel - 11/01/18 18:39 Serum or plasma sodium measurement (moles/volume) 138 mmol/L 135-145 Serum or plasma potassium measurement (moles/volume) 3.9 mmol/L 3.6-5.0 Serum or plasma chloride measurement (moles/volume) 102 mmol/L 98-107 Carbon dioxide 22 mmol/L 21-32 Serum or plasma anion gap determination (moles/volume) 14 mmol/L 5-14 Serum or plasma urea nitrogen measurement (mass/volume) 7 mg/dL 7-18 Serum or plasma creatinine measurement (mass/volume) 1.26 mg/dL 0.60-1.30 Serum or plasma urea nitrogen/creatinine mass ratio 6 NRG Serum or plasma creatinine measurement with calculation of estimated glomerular filtration rate 44 NRG Serum or plasma glucose measurement (mass/volume) 264 mg/dL 70-105 Serum or plasma calcium measurement (mass/volume) 9.9 mg/dL 8.5-10.1 Serum or plasma total bilirubin measurement (mass/volume) 0.6 mg/dL 0.1-1.0 Serum or plasma alkaline phosphatase measurement (enzymatic activity/volume) 132 U/L 40-136 Serum or plasma aspartate aminotransferase measurement (enzymatic activity/ volume) 38 U/L 5-34 Serum or plasma alanine aminotransferase measurement (enzymatic activity/volume ) 39 U/L 0-55 Serum or plasma protein measurement (mass/volume) 8.0 g/dL 6.4-8.2 Serum or plasma albumin measurement (mass/volume) 4.1 g/dL 3.2-4.5 CALCIUM CORRECTED 9.8 mg/dL 8.5-10.1 Lipase - 11/01/18 18:39 Lipase 52 U/L 8-78 Complete urinalysis with reflex to culture - 11/01/18 19:23 Urine color determination YELLOW NRG Urine clarity [...] urine sediment by light microscopy NONE NRG Squamous epithelial cells detection in urine sediment by light microscopy 5-10 NRG Crystals detection in urine sediment by light microscopy NONE NRG Casts detection in urine sediment by light microscopy NONE NRG Mucus detection in urine sediment by light microscopy NEGATIVE NRG Complete urinalysis with reflex to culture NO NRG Encounters ACCT No. Visit Date/Time Discharge Status Pt. Type Provider Facility Loc./Unit Complaint [id number] 02/19/2015 08:29:00 02/19/2015 23:59:59 CLS Outpatient VALERIE PATINO DO [id number] 02/07/2015 13:27:00 02/07/2015 23:59:59 CLS Outpatient VALERIE PATINO DO [id number] 01/29/2015 08:50:00 01/29/2015 23:59:59 CLS Outpatient VALERIE PATINO DO [id number] 12/24/2014 10:30:00 12/24/2014 23:59:59 CLS Outpatient VALERIE PATINO DO [id number] 11/03/2014 09:50:00 11/03/2014 23:59:59 CLS Outpatient SHAHEEN SOSA APRN [id number] 11/03/2014 09:50:00 11/03/2014 23:59:59 CLS Outpatient SHAHEEN SOSA APRN [id number] 09/17/2014 09:53:00 09/17/2014 23:59:59 CLS Outpatient VALERIE PATINO DO [id number] 08/15/2014 13:50:00 08/15/2014 23:59:59 CLS Outpatient SHAHEEN SOSA APRN [id number] 07/27/2014 09:28:00 07/27/2014 23:59:59 CLS Outpatient SHYAM DPROXY Nguyen [id number] 06/18/2014 09:14:00 06/18/2014 23:59:59 CLS Outpatient PATINO DO VALERIE Roberts [id number] 06/18/2014 09:14:00 06/18/2014 23:59:59 CLS Outpatient ZAKIYALSHAHEEN CASTILLO APRN [id number] 05/04/2014 09:29:00 05/04/2014 23:59:59 CLS Outpatient PATINO DO, VALERIE Roberts [id number] 04/12/2014 12:55:00 04/12/2014 23:59:59 CLS Outpatient NADIA DDSTILA [id number] 03/19/2014 09:29:00 03/19/2014 23:59:59 CLS Outpatient ZAKIYALSHAHEEN CASTILLO APRN [id number] 03/05/2014 10:45:00 03/05/2014 23:59:59 CLS Outpatient PATINO DO VALERIE Roberts [id number] 01/16/2014 08:24:00 01/16/2014 23:59:59 CLS Outpatient PATINO DO, VALERIE Roberts [id number] 12/12/2013 08:38:00 12/12/2013 23:59:59 CLS Outpatient JODIE [employer] SUPERVISORNAY Rinaldi Navya [id number] 12/04/2013 10:09:00 12/04/2013 23:59:59 CLS Outpatient PATINO DO VALERIE Roberts [id number] 11/13/2013 08:28:00 11/13/2013 23:59:59 CLS Outpatient PATINO DO, VALERIE Roberts [id number] 09/28/2013 12:29:00 09/28/2013 23:59:59 CLS Outpatient PATINO DO, VALERIE Roberts [id number] 09/08/2013 08:49:00 09/08/2013 23:59:59 CLS Outpatient PATINO DO, VALERIE Roberts [id number] 09/08/2013 08:49:00 09/08/2013 23:59:59 CLS Outpatient PATINO DO, VALERIE Roberts [id number] 08/24/2013 08:17:00 08/24/2013 23:59:59 CLS Outpatient PATINO DO, VALERIE Roberts [id number] 08/03/2013 08:22:00 08/03/2013 23:59:59 CLS Outpatient PATINO DO, VALERIE Roberts [id number] 07/27/2013 14:12:00 07/27/2013 23:59:59 CLS Outpatient VALERIE PATINO DO [id number] 07/17/2013 17:28:00 07/17/2013 23:59:59 CLS Outpatient VALERIE PATINO DO [id number] 02/09/2013 12:25:00 02/09/2013 23:59:59 CLS Outpatient VALERIE PATINO DO [id number] 01/17/2013 08:50:00 01/17/2013 23:59:59 CLS Outpatient SHAMIKA GOLDBERG MD [id number] 12/28/2012 15:58:00 12/28/2012 23:59:59 CLS Outpatient AMADEO DONIS DO [id number] 12/21/2012 10:41:00 12/21/2012 23:59:59 CLS Outpatient [id number] 12/21/2012 10:41:00 12/21/2012 23:59:59 CLS Outpatient SHAMIKA GOLDBERG MD [id number] 12/13/2012 11:34:00 12/13/2012 23:59:59 CLS Outpatient [id number] 12/01/2012 12:47:00 12/01/2012 23:59:59 CLS Outpatient VALERIE PATINO DO [id number] 11/23/2012 14:07:00 11/23/2012 23:59:59 CLS Outpatient [id number] 10/20/2012 09:57:00 10/20/2012 23:59:59 [place] [id number] 08/25/2012 09:51:00 08/25/2012 23:59:59 CLS Outpatient SHAMIKA GOLDBERG MD [id number] 07/17/2013 17:28:00 Document Registration [id number] 03/30/2013 15:06:00 Document Registration [id number] 03/30/2013 15:06:00 Document Registration [id number] 03/23/2013 08:28:00 Document Registration [id number] 03/09/2013 11:38:00 Document Registration [id number] 02/28/2013 15:43:00 Document Registration [id number] 02/28/2013 15:43:00 Document Registration [id number] 11/01/2018 18:29:00 11/01/2018 20:48:00 DIS Emergency ELVA ÁLVAREZ APRN [facility] ER VOMITTING [id number] 10/19/2018 10:30:00 10/19/2018 14:35:00 DIS Emergency GEOVANI LUTZ [facility] ER ABD PAIN [id number] 08/23/2018 09:20:00 08/23/2018 23:59:59 CLS Outpatient MARYLOU VAUGHN MD [facility] LAB CHRONIC KIDNEY DISEASE, HYPERTENSION,IRON DEFIENCY [id number] 04/21/2018 21:40:00 04/22/2018 00:25:00 DIS Emergency SANDRA MC, SHAHID Aldridge [facility] ER CP/SOB [id number] 03/29/2018 08:43:00 03/29/2018 23:59:59 CLS Outpatient MARYLOU VAUGHN MD [facility] LAB I10,N18.3,E55.9 [id number] 10/27/2017 11:46:00 10/27/2017 23:59:59 CLS Outpatient OSWALDO ALTAMIRANO APRN [facility] RAD E11.42 TYPE 2 DIABETES [id number] 09/13/2017 12:52:00 09/13/2017 23:59:59 CLS Outpatient OSWALDO ALTAMIRANO APRN [facility] RAD ABN MAMMO [id number] 08/05/2017 13:30:00 08/05/2017 23:59:59 CLS Preadmit MARYLOU VAUGHN MD [facility] RAD CKD STAGE 2 N18.2 [id number] 05/28/2017 14:29:00 05/28/2017 23:59:59 CLS Outpatient JUDI RICHARDS MD [facility] RAD M54.2 S09.90XA R51 [id number] 03/08/2017 13:44:00 03/08/2017 23:59:59 CLS Outpatient OSWALDO ALTAMIRANO APRN [facility] RAD ABNORMAL MAMMO [id number] 02/10/2017 08:34:00 02/10/2017 23:59:59 CLS Outpatient OSWALDO ALTAMIRANO APRN [facility] RAD SCREENING BREAST CA [id number] 01/26/2017 09:17:00 01/26/2017 11:45:00 DIS Outpatient LINDA MANSFIELD DO [facility] ENDO EPIGASTRIC PAIN [id number] 01/21/2017 06:55:00 01/21/2017 14:45:00 DIS Outpatient LINDA MANSFIELD DO [facility] PREOP EPIGASTRIC PAIN [id number] 12/22/2016 18:45:00 12/23/2016 18:25:00 DIS Inpatient JUDI RICHARDS MD [facility] 4TH ACUTE PANCREATITIS,CHEST PAIN [id number] 11/03/2016 11:43:00 11/03/2016 23:59:59 CLS Outpatient DAIN MONTANEZ [facility] LAB E78.2 [id number] 08/12/2016 08:05:00 08/12/2016 10:35:00 DIS Outpatient LINDA MANSFIELD DO [facility] CHANGE IN BOWEL HABITS [id number] 08/11/2016 09:52:00 08/11/2016 14:50:00 DIS Outpatient LINDA MANSFIELD DO [facility] SD CHANGE IN BOWEL HABITS [id number] 08/06/2016 12:42:00 08/06/2016 15:15:00 DIS Outpatient LINDA MANSFIELD DO [facility] PREOP CHANGE IN BOWEL HABITS [id number] 07/14/2016 10:35:00 07/14/2016 23:59:59 CLS Outpatient DAIN MONTANEZ [facility] LAB CAD,DIZZINESS ,HLP,SYNCOPE [id number] 06/13/2016 22:41:00 06/14/2016 02:00:00 DIS Emergency ROHIT CAMPA DO [facility] ER LOC/NECK PAIN/HEADACHE [id number] 11/26/2015 15:58:00 11/26/2015 16:51:00 DIS Emergency ELVA ÁLVAREZ APRN [facility] ER L LEG PAIN [id number] 10/18/2015 19:37:00 10/18/2015 21:56:00 DIS Emergency DAVID NATHAN MD [facility] ER CP [id number] 08/26/2015 20:54:00 08/26/2015 23:00:00 DIS Emergency ELVA ÁLVAREZ [employer]PER[employer] [facility] ER ABN BLOOD SUGAR [id number] 05/22/2015 10:54:00 05/22/2015 18:48:00 DIS Outpatient KETAN ADAMS MD [facility] CATH ABN STRESS, CP CAD, HLP, DM [id number] 04/23/2015 11:20:00 04/23/2015 23:59:59 CLS Outpatient KETAN ADAMS MD [facility] CARD CHEST PAIN [id number] 04/21/2015 20:59:00 04/22/2015 13:30:00 DIS Inpatient AMBER HERNANDEZ MD [facility] CSD CP,RENAL INSUFFICIENCY, HYPERGLYCEMIA [id number] 04/14/2015 22:54:00 04/15/2015 00:06:00 DIS Emergency DAVID NATHAN MD [facility] ER BACK PAIN [id number] 02/18/2015 13:18:00 02/18/2015 23:59:59 CLS Outpatient SHAHEEN SOSA [employer] [facility] CARD SYNCOPE [id number] 02/12/2015 10:37:00 02/12/2015 23:59:59 CLS Outpatient SHAHEEN SOSA [employer] [facility] RAD SYNCOPE [id number] 02/04/2015 16:54:00 02/05/2015 12:45:00 DIS Inpatient AMBER HERNANDEZ MD [facility] SURGICAL SYNCOPE;UTI [id number] 01/31/2015 13:02:00 01/31/2015 23:59:59 CLS Outpatient SANDRA SALMERON [employer] [facility] RAD SCREENING [id number] 11/12/2014 23:16:00 11/13/2014 00:23:00 DIS Emergency DAVID NATHAN MD [facility] ER FLU,HIGH BLOOD SUGAR [id number] 07/15/2014 13:56:00 07/15/2014 17:53:00 DIS Emergency TONIO OROZCO, BABATUNDE Tinsley [facility] ER NUMBNESS IN FACE LUMPS ON SIDE OF HEAD AND DOWN NE [id number] 06/15/2014 12:38:00 06/15/2014 15:20:00 DIS Emergency ELVA ÁLVAREZ APRN [facility] ER FALL/LEFT FOOT INJURY [id number] 04/08/2014 19:23:00 04/08/2014 19:52:00 DIS Emergency SANDRA MC, SHAHID Aldridge [facility] ER MULTIPLE COMPLAINTS [id number] 12/17/2013 18:06:00 12/17/2013 19:56:00 DIS Emergency YOUSUF MC, POP Ford [facility] ER FALL, MULTIPLE INJ [id number] 11/01/2013 01:09:00 11/01/2013 02:59:00 DIS Emergency JAC MC, DAVID James [facility] ER HG BLOOD SUGAR [id number] 02/12/2015 10:38:00 Document Registration [id number] 02/12/2015 10:38:00 Document Registration [id number] 02/12/2015 10:37:00 Document Registration [id number] 02/12/2015 10:37:00 Document Registration [id number] 10/10/2012 12:34:00 Document Registration [id number] 09/22/2012 11:06:00 Document Registration [id number] 09/01/2012 05:50:00 Document Registration [id number] 07/05/2012 04:51:00 Document Registration [id number] 05/01/2012 10:30:00 Document Registration [id number] 04/12/2012 12:24:00 Document Registration [id number] 04/06/2012 14:43:00 Document Registration [id number] 04/04/2012 22:25:00 Document Registration [id number] 01/30/2012 05:44:00 Document Registration [id number] 01/10/2012 04:00:00 Document Registration [id number] 11/19/2011 20:23:00 Document Registration [id number] 11/06/2011 00:38:00 Document Registration [id number] 08/26/2011 10:21:00 Document Registration [id number] 08/22/2011 02:40:00 Document Registration [id number] 08/17/2011 06:47:00 Document Registration [id number] 05/14/2011 10:50:00 Document Registration [id number] 05/12/2011 20:49:00 Document Registration [id number] 04/19/2011 00:05:00 Document Registration [id number] 04/06/2011 00:36:00 Document Registration [id number] 01/23/2011 01:40:00 Document Registration [id number] 04/18/2010 02:16:00 Document Registration [id number] 10/22/2009 15:22:00 Document Registration [id number] 10/01/2009 09:51:00 Document Registration [id number] 07/22/2017 16:08:00 Document Registration [id number] 05/22/2015 10:55:05 ACT Document Registration [id number] 05/14/2017 13:05:00 Document Registration [id number] 11/11/2018 14:40:00 11/11/2018 23:59:59 [facility] CHUY Gleason [facility] [id number] 06/17/2018 13:20:00 Document Registration [id number] 03/18/2018 08:00:00 Document Registration [id number] 11/25/2017 08:40:00 Document Registration
--- NOTE | 2018-11-20 16:28 | ED Back Pain ---
General Chief Complaint: Back Problems Stated Complaint: BACK PAIN Nursing Triage Note: PT STATES SHE WAS IN THE ER A WEEK AGO FOR HER BACK PAIN THAT WAS ACCOMPANIED BY ABD PAIN. PT REPORTS 9/10 MIDDLE BACK PAIN THAT RADIATES UP AND DOWN HER SPINE. PT DENIES ANY ABDOMINAL PAIN. PT STATES SHEW PRESCRIBED "FENTANYL" PILLS BUT TOOK ONE AND STOPPED TAKING THEM BECAUSE SHE FELT NO RELIEF. Nursing Sepsis Screen: No Definite Risk Source of Information: Patient Exam Limitations: No Limitations History of Present Illness Date Seen by Provider: Nov 20, 2018 Time Seen by Provider: 16:26 Initial Comments To ER with reports of midline dressing back pain that radiates both up and down and is worse with twisting. This began about 3 weeks to 1 month ago after twisting. She states her Neurontin is not helping much and she feels like a shot of Flexeril would be helpful. She denies any abdominal pain nausea vomiting fevers chills or dysuria. Location: Lumbar Spine, T-Spine Timing/Duration: Intermittent Severity: Moderate Pain/Injury Location: Back Modifying Factors: Worse With Movement Allergies and Home Medications Allergies Coded Allergies: codeine (Verified Allergy, Unknown, HEART PALPATATION, 02/04/15) Home Medications Albuterol 17 Gm Aerosol, 2 PUFF IH Q4H PRN for SHORTNESS OF BREATH, (Reported) Aspirin 81 Mg Tabec, 81 MG PO Q48H, (Reported) Atorvastatin Calcium 40 Mg Tablet, 40 MG PO HS, (Reported) Cetirizine HCl 10 Mg Tablet, 10 MG PO HS, (Reported) Duloxetine HCl 60 Mg Capsule.dr, 60 MG PO HS, (Reported) Fluticasone Propionate 16 Gm [place].susp, 1 SPRAY NA DAILY PRN for ALLERGIES, ( Reported) Hydrocodone Bit/Acetaminophen 1 Tab Tab, 1-2 EACH PO Q6H PRN for PAIN-MODERATE Prescribed by: GEOVANI LUTZ on 10/19/18 1357 Insulin Determir 1,000 Units/10 Ml Soln, 65 UNITS SQ DAILY, (Reported) TAKE IN AM Insulin Determir 1,000 Units/10 Ml Soln, 70 UNITS SQ HS, (Reported) TAKE AT BEDTIME Liraglutide 0.6 Mg/0.1 Ml Pen.injctr, 1.8 MG SQ HS, (Reported) Multivitamin 1 Each Tab.chew, 1 EACH PO HS, (Reported) Ondansetron HCl 4 Mg Tab, 4 MG PO Q4H PRN for NAUSEA/VOMITING-1ST LINE Prescribed by: GEOVANI LUTZ on 10/19/18 1357 Pantoprazole Sodium 40 Mg Tablet.dr, 40 MG PO DAILY Prescribed by: LINDA MANSFIELD on 01/26/17 1053 Promethazine HCl 25 Mg Tablet, 25 MG PO Q6H PRN for NAUSEA/VOMITING Prescribed by: ELVA ÁLVAREZ on 11/01/18 1948 Sucralfate 1 Gm Tablet, 1 GM PO ACHS Prescribed by: LINDA MANSFIELD on 01/26/17 1053 [Vit B-12 Gummies] , 2 TAB PO HS, (Reported) [Vitamin C] , 1 TAB PO HS, (Reported) Patient Home Medication List Home Medication List Reviewed: Yes Review of Systems Constitutional: see HPI; No chills EENTM: see HPI Respiratory: no symptoms reported Cardiovascular: no symptoms reported Gastrointestinal: No abdominal pain, No diarrhea, No nausea, No vomiting Genitourinary: no symptoms reported Musculoskeletal: see HPI, back pain Skin: no symptoms reported Psychiatric/Neurological: No Symptoms Reported Past Ijbvwmd-Qigczb-Ytkfhj Hx Patient Social History Alcohol Use: Denies Use Recreational Drug Use: No Type Used: Cigarettes Former Smoker, Quit: Aug 12, 1992 2nd Hand Smoke Exposure: No Recent Foreign Travel: No Contact w/Someone Who Travel: No Recent Infectious Disease Expo: No Recent Hopitalizations: No Physical Abuse: No Sexual Abuse: No Immunizations Up To Date Tetanus Booster (TDap): Less than 5yrs Date of Pneumonia Vaccine: Nov 21, 2016 Date of Influenza Vaccine: Aug 30, 2016 Seasonal Allergies Seasonal Allergies: No Past Medical History Surgeries: Yes (back x2, ) Abdominal, Appendectomy, Ear Surgery, Gallbladder, Hysterectomy, Orthopedic Respiratory: No Currently Using CPAP: No Currently Using BIPAP: No Cardiac: Yes High Cholesterol, Syncope Neurological: Yes Neuropathy 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 Disorders: No Female 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 Disorders: 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, 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 Sexually Transmitted Disease: No HIV/AIDS: No Genitourinary: No Renal Failure Gastrointestinal: No Gastroesophageal Reflux Musculoskeletal: Yes Arthritis, Chronic Back Pain Endocrine: Yes Diabetes, Insulin dep Cataract Cancer: No Psychosocial: Yes Anxiety, Bipolar, Depression Integumentary: Yes (SORES ON ARMS) Blood Disorders: No Family Medical History FH: diabetes mellitus FH: heart disease No Pertinent Family Hx, Heart Disease Physical Exam Vital Signs Vital Signs - First Documented 11/20/18 15:49 Temp 98.6 Pulse 75 Resp 16 B/P (MAP) 112/85 (94) Pulse Ox 100 Capillary Refill : Less Than 3 Seconds Height, Weight, BMI Height: 5'7.00" Weight: 196lbs. 0oz. [id number]; 29.3 BMI Method:Stated General Appearance: No Apparent Distress, WD/WN HEENT: PERRL/EOMI, Pharynx Normal Neck: Full Range of Motion, Normal Inspection Respiratory: No Accessory Muscle Use, No Respiratory Distress Gastrointestinal: Normal Bowel Sounds, Non Tender, Soft Extremity: Normal Capillary Refill, Normal Inspection Neurologic/Psychiatric: Alert, Oriented x3 Skin: Normal Color, Warm/Dry Progress/Results/Core Measures Results/Orders Lab Results Laboratory Tests Test 11/20/18 16:14 Range/Units Urine Color YELLOW Urine Clarity CLEAR Urine pH 5 5-9 Urine Specific [place] 1.020 1.016-1.022 Urine Protein 1+ H NEGATIVE Urine Glucose (UA) 4+ H NEGATIVE Urine Ketones NEGATIVE NEGATIVE Urine Nitrite NEGATIVE NEGATIVE Urine Bilirubin NEGATIVE NEGATIVE Urine Urobilinogen NORMAL NORMAL MG/DL Urine Leukocyte Esterase 1+ H NEGATIVE Urine RBC (Auto) NEGATIVE NEGATIVE Urine RBC NONE /HPF Urine WBC RARE /HPF Urine Squamous Epithelial Cells 5-10 /HPF Urine Crystals NONE /LPF Urine Bacteria NEGATIVE /HPF Urine Casts NONE /LPF Urine Mucus NEGATIVE /LPF Urine Culture Indicated NO My Orders Orders - ELVA ÁLVAREZ APRN Ketorolac Injection (Toradol Injection) (11/20/18 16:30) Ketorolac Injection (Toradol Injection) (11/20/18 16:30) Orphenadrine Injection (Norflex Injectio (11/20/18 16:30) Ua Culture If Indicated (11/20/18 16:28) Medications Given in ED Current Medications Medications Dose Ordered Sig/Josh Route Start Time Stop Time Status Last Admin Dose Admin Ketorolac Tromethamine 60 mg ONCE ONCE IM 11/20/18 16:30 11/20/18 16:31 DC 11/20/18 16:33 60 MG Orphenadrine Citrate 60 mg ONCE ONCE IM 11/20/18 16:30 11/20/18 16:31 DC 11/20/18 16:33 60 MG Vital Signs/I&O 11/20/18 15:49 Temp 98.6 Pulse 75 Resp 16 B/P (MAP) 112/85 (94) Pulse Ox 100 Blood Pressure Mean: 94 Departure Impression Primary Impression: Back pain Qualified Codes: M54.6 - Pain in thoracic spine Disposition: 01 HOME, SELF-CARE Condition: Improved Departure-Patient Inst. Decision time for Depature: 16:53 Referrals: [facility] (PCP/Family) Primary Care Physician Patient Instructions: Upper Back Pain (DC), Muscle Strain (DC) Add. Discharge Instructions: 1. Medication as directed 2. Follow-up with your doctor next week 3. All discharge instructions reviewed with patient and/or family. Voiced understanding. Scripts Methocarbamol (Robaxin-750) 750 Mg Tablet 750 MG PO Q4H PRN for PAIN-MODERATE TO SEVERE, #20 TAB Prov: ELVA ÁLVAREZ APRN 11/20/18 ELVA ÁLVAREZ APRN Nov 20, 2018 16:28
[2018-11-20] MEDS ORDERED: ORPHENADRINE 60 MG/2 ML (NORFLEX) AMP IM ONE (16:30)
[2018-11-20] MEDS ORDERED: KETOROLAC 30 MG/ML VIAL IVP ONE (16:30)
[2018-11-20] MEDS ORDERED: KETOROLAC 60 MG/2 ML VIAL IM ONE (16:30)
[2018-11-20 16:39] LABS: BILIRUBIN,URINE NEGATIVE (NEGATIVE); CLARITY,URINE CLEAR; COLOR,URINE YELLOW; GLUCOSE, URINE (UA) 4+ (NEGATIVE); KETONES,URINE NEGATIVE (NEGATIVE); LEUKOCYTE ESTERASE ,URINE 1+ (NEGATIVE); NITRITE,URINE NEGATIVE (NEGATIVE); PH,URINE 5 (5-9); PROTEIN,URINE 1+ (NEGATIVE); UROBILINOGEN,URINE NORMAL (NORMAL)
[2018-11-20 16:51] LABS: BACTERIA,URINE NEGATIVE /HPF; WBC,URINE RARE /HPF
[2018-11-20] MEDS ORDERED: METH-313 PO (16:55)
[2018-11-20 17:04] VITALS: BP 111/76
== END 2018-11-20 17:04 | disposition home or self-care (01) ==
LOC: EDUNIT# 15:43 → ER 15:44
DX: M54.6 Pain in thoracic spine (principal); M54.5 Low back pain; E78.00 Pure hypercholesterolemia, unspecified; K21.9 Gastro-esophageal reflux disease without esophagitis; E11.40 Type 2 diabetes mellitus with diabetic neuropathy, unspecified; F41.9 Anxiety disorder, unspecified; F31.9 Bipolar disorder, unspecified; Z82.49 Family history of ischemic heart disease and other diseases of the circulatory system; Z87.448 Personal history of other diseases of urinary system; Z88.5 Allergy status to narcotic agent; Z79.51 Long term (current) use of inhaled steroids; Z79.82 Long term (current) use of aspirin; Z79.4 Long term (current) 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; Z87.891 Personal history of nicotine dependence; Z90.49 Acquired absence of other specified parts of digestive tract; Z98.890 Other specified postprocedural states; Z90.710 Acquired absence of both cervix and uterus
CPT/HCPCS: 81000; 99284

== ENCOUNTER → 2019-01-16 | Outpatient (CLI) | payer MEDICAID ==
[~2019-01-16] MED LIST changes: +METH-313 PO
[2019-01-16 13:59] LABS: BASOPHILS # (AUTO) 0.1 10^3/uL (0.0-0.1); BASOPHILS % (AUTO) 1 % (0-10); EOSINOPHILS # (AUTO) 0.5 10^3/uL (0.0-0.3); EOSINOPHILS % (AUTO) 7 % (0-10); HEMATOCRIT 40 % (35-52); HEMOGLOBIN 13.7 G/DL (11.5-16.0); LYMPHOCYTES # (AUTO) 2.2 X 10^3 (1.0-4.0); LYMPHOCYTES % (AUTO) 30 % (12-44); MEAN CORPUSCULAR HEMOGLOBIN 32 PG (25-34); MEAN CORPUSCULAR HGB CONC 34 G/DL (32-36); MEAN CORPUSCULAR VOLUME 94 FL (80-99); MEAN PLATELET VOLUME 10.2 FL (7.4-10.4); MONOCYTES # (AUTO) 0.5 X 10^3 (0.0-1.0); MONOCYTES % (AUTO) 7 % (0-12); NEUTROPHILS # (AUTO) 4.1 X 10^3 (1.8-7.8); NEUTROPHILS % (AUTO) 56 % (42-75); PLATELET COUNT 236 10^3/uL (130-400); RED CELL DISTRIBUTION WIDTH 12.7 % (10.0-14.5); WHITE BLOOD COUNT 7.3 10^3/uL (4.3-11.0)
[2019-01-16 14:10] LABS: BILIRUBIN,URINE NEGATIVE (NEGATIVE); CLARITY,URINE SLIGHTLY CLOUDY; COLOR,URINE YELLOW; GLUCOSE, URINE (UA) 4+ (NEGATIVE); KETONES,URINE NEGATIVE (NEGATIVE); LEUKOCYTE ESTERASE ,URINE 1+ (NEGATIVE); NITRITE,URINE NEGATIVE (NEGATIVE); PH,URINE 6 (5-9); PROTEIN,URINE 1+ (NEGATIVE); UROBILINOGEN,URINE NORMAL (NORMAL)
[2019-01-16 14:22] LABS: BACTERIA,URINE FEW /HPF; SQUAMOUS EPITHELIAL CELL,UR 25-50 /HPF
[2019-01-16 14:25] LABS: ALBUMIN 4.1 GM/DL (3.2-4.5); CALCIUM 9.5 MG/DL (8.5-10.1); CREATININE SERUM 1.21 MG/DL (0.60-1.30); PHOSPHORUS 3.5 MG/DL (2.3-4.7)
== END ==
LOC: LAB 13:30
PROVIDERS: ATTEND Internal Medicine Nephrology
DX: I12.9 Hypertensive chronic kidney disease with stage 1 through stage 4 chronic kidney disease, or unspecified chronic kidney disease (principal); N18.3 Chronic kidney disease, stage 3 (moderate); E55.9 Vitamin D deficiency, unspecified; E87.2 Acidosis; D50.9 Iron deficiency anemia, unspecified
CPT/HCPCS: 36415; 80069; 81000; 82306; 82570; 82728; 83036; 83540; 83970; 84156; 84550; 85025; 87088

== ENCOUNTER 2019-01-19 21:05 | Emergency (ER) | payer MEDICAID ==
[~2019-01-19] VITALS: Ht 170.2 cm; Wt 89.8 kg
--- OUTSIDE RECORDS SUMMARY | 2019-01-19 21:39 | XMS REPORT | Continuity of Care Document ---
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 Medications [...] II - UNCOMPLICATED, CONTROLLED 06/15/2008 PATINO DO, VALEREI K 272.4 DYSLIPIDEMIA 06/15/2008 PATINO DO, VALERIE [...] TYPE II - UNCOMPLICATED, CONTROLLED 06/15/2008 ZAKIYAANNA AUDIENCE COORDINATOR, SHAHEEN E 272.4 DYSLIPIDEMIA 06/15/2008 ZAKIYAFORMERLY [facility], [facility] AUDIENCE COORDINATOR, SHAHEEN E 250.00 DIABETES MELLITUS TYPE II - UNCOMPLICATED, CONTROLLED 06/15/2008 HELFORMERLY [facility], [facility] AUDIENCE COORDINATOR, SHAHEEN E 272.4 DYSLIPIDEMIA 06/15/2008 PATINO DO, [...] MELLITUS TYPE 2 - UNCOMPLICATED, UNCONTROLLED 06/19/2008 USKUMAR OCONNOR VALERIE K 382.00 OTITIS MEDIA ACUTE [...] VALERIE K 462 PHARYNGITIS ACUTE 06/19/2008 HELLWIG AUDIENCE COORDINATOR SHAHEEN E 250.02 DIABETES MELLITUS TYPE 2 - UNCOMPLICATED, UNCONTROLLED 06/19/2008 HELLWIG AUDIENCE COORDINATOR, SHAHEEN E 382.00 OTITIS MEDIA ACUTE WITHOUT SPONTANEOUS RUPTURE EARDRUM 06/19/2008 HELLWIG AUDIENCE COORDINATOR SHAHEEN E 462 PHARYNGITIS ACUTE 06/19/2008 SHYAM DPM, ROXY 250.02 DIABETES MELLITUS TYPE 2 - UNCOMPLICATED, UNCONTROLLED 06/19/2008 SHYAM DPM, ROXY 382.00 OTITIS MEDIA ACUTE WITHOUT SPONTANEOUS RUPTURE EARDRUM 06/19/2008 SHYAM DPM, ROXY 462 PHARYNGITIS ACUTE 06/19/2008 HELLWIG AUDIENCE COORDINATOR SHAHEEN E 250.02 DIABETES MELLITUS TYPE 2 - UNCOMPLICATED, UNCONTROLLED 06/19/2008 HELLWIG AUDIENCE COORDINATOR, SHAHEEN E 382.00 OTITIS MEDIA ACUTE WITHOUT SPONTANEOUS RUPTURE EARDRUM 06/19/2008 HELLWIG AUDIENCE COORDINATOR SHAHEEN E 462 PHARYNGITIS ACUTE 06/19/2008 PATINO DO, VALERIE K 250.02 DIABETES MELLITUS TYPE 2 - UNCOMPLICATED, UNCONTROLLED 06/19/2008 PATINO DO, VALERIE K 382.00 OTITIS MEDIA ACUTE WITHOUT SPONTANEOUS RUPTURE EARDRUM 06/19/2008 PATINO DO, VALERIE K 462 PHARYNGITIS ACUTE 06/19/2008 HELLWIG AUDIENCE COORDINATOR SHAHEEN E 250.02 DIABETES MELLITUS TYPE 2 - UNCOMPLICATED, UNCONTROLLED 06/19/2008 HELLWIG AUDIENCE COORDINATOR, SHAHEEN E 382.00 OTITIS MEDIA ACUTE WITHOUT SPONTANEOUS RUPTURE EARDRUM 06/19/2008 HELLWIG AUDIENCE COORDINATOR SHAHEEN E 462 PHARYNGITIS ACUTE 06/19/2008 HELLWIG AUDIENCE COORDINATOR SHAHEEN E 250.02 DIABETES MELLITUS TYPE 2 - UNCOMPLICATED, UNCONTROLLED 06/19/2008 ZAKIYAANNA AUDIENCE COORDINATOR, SHAHEEN E 382.00 OTITIS MEDIA ACUTE WITHOUT SPONTANEOUS RUPTURE EARDRUM 06/19/2008 ZAKIYAFIONA AUDIENCE COORDINATOR, SHAHEEN E 462 PHARYNGITIS ACUTE 06/19/2008 SUKUMAR [...] 07/04/2008 SHAMIKA GOLDBERG MD 300.00 anxiety 07/04/2008 SHAMKIA GOLDBERG MD 724.4 BACK PAIN WITH RADIATION [...] K 724.4 BACK PAIN WITH RADIATION 07/04/2008 [facility] E 300.00 anxiety 07/04/2008 SHAHEEN [...] SOSA APRNE E 300.00 anxiety 07/04/2008 IAN AUDIENCE COORDINATOR, SHAHEEN E 724.4 BACK PAIN WITH RADIATION 07/04/2008 [facility]IYAFORMERLY [facility], [facility] JOSSE SHAHEEN E 300.00 anxiety 07/04/2008 ZAKIYAANNA AUDIENCE COORDINATORGADIELSHAHEEN E 724.4 BACK PAIN WITH RADIATION 07/04/2008 [...] 709.9 DERMATITIS OTHER SKIN DISORDERS 07/18/2008 HELLWIG AUDIENCE COORDINATOR, SHAHEEN E 709.9 DERMATITIS OTHER SKIN DISORDERS [...] Alejandro 724.5 BACKACHE UNSPECIFIED 08/29/2008 YUSUF MC, SHAMKIA 724.5 BACKACHE UNSPECIFIED 08/29/2008 YUSUF MC, SHAMIKA [...] VALERIE K 724.5 BACKACHE UNSPECIFIED 08/29/2008 HELLWIG AUDIENCE COORDINATOR, SHAHEEN E 724.5 BACKACHE UNSPECIFIED 08/29/2008 SHYAM DPM, ROXY 724.5 BACKACHE UNSPECIFIED 08/29/2008 HELLWIG AUDIENCE COORDINATOR, SHAHEEN E 724.5 BACKACHE UNSPECIFIED 08/29/2008 PATINO DO, VALERIE K 724.5 BACKACHE UNSPECIFIED 08/29/2008 HELLWIG AUDIENCE COORDINATOR, SHAHEEN E 724.5 BACKACHE UNSPECIFIED 08/29/2008 HELLWIG AUDIENCE COORDINATOR, SHAHEEN E 724.5 BACKACHE UNSPECIFIED 08/29/2008 PATINO [...] APRNSIE E 259.9 ENDOCRINE DISORDERS 11/28/2008 HELLWIG AUDIENCE COORDINATOR, SHAHEEN E 786.2 cough 11/28/2008 SHYAM DPM, ROXY 034.0 PHARYNGITIS STREPTOCOCCUS, GROUP A: BETA HEMOLYTIC 11/28/2008 SHYAM DPM, ROXY 259.9 ENDOCRINE DISORDERS 11/28/2008 SHYAM DPM, ROXY 786.2 cough 11/28/2008 [facility] AUDIENCE COORDINATOR, SHAHEEN E 034.0 PHARYNGITIS STREPTOCOCCUS, GROUP A: BETA HEMOLYTIC 11/28/2008 [facility] AUDIENCE COORDINATOR, SHAHEEN E 259.9 ENDOCRINE DISORDERS 11/28/2008 [facility] AUDIENCE COORDINATOR, SHAHEEN E 786.2 cough 11/28/2008 PATINO DO, VALERIE K 034.0 PHARYNGITIS STREPTOCOCCUS, GROUP A: BETA HEMOLYTIC 11/28/2008 PATINO DO, VALERIE K 259.9 ENDOCRINE DISORDERS 11/28/2008 PATINO DO, VALERIE K 786.2 cough 11/28/2008 [facility] AUDIENCE COORDINATOR, SHAHEEN E 034.0 PHARYNGITIS STREPTOCOCCUS, GROUP A: BETA HEMOLYTIC 11/28/2008 [facility] 259.9 ENDOCRINE DISORDERS 11/28/2008 [facility] AUDIENCE COORDINATOR, SHAHEEN E 786.2 cough 11/28/2008 [facility] AUDIENCE COORDINATOR, SHAHEEN E 034.0 PHARYNGITIS STREPTOCOCCUS, GROUP A: BETA HEMOLYTIC 11/28/2008 [facility] AUDIENCE COORDINATOR, SHAHEEN E 259.9 ENDOCRINE DISORDERS 11/28/2008 [facility] AUDIENCE COORDINATOR, SHAHEEN E 786.2 cough 11/28/2008 PATINO DO, [...] VALERIE K 692.6 POISON JOHANA 01/18/2009 HELLWIG AUDIENCE COORDINATOR, SHAHEEN E 692.6 POISON JOHANA 01/18/2009 NADIA DDS, TILA M 692.6 POISON JOHANA 01/18/2009 PATINO DO, VALERIE K 692.6 POISON JOHANA 01/18/2009 PATINO DO, VALERIE K 692.6 POISON JOHANA 01/18/2009 HELLWIG AUDIENCE COORDINATOR, SHAHEEN E 692.6 POISON JOHANA 01/18/2009 SHYAM DPM, ROXY 692.6 POISON JOHANA 01/18/2009 HELLWIG AUDIENCE COORDINATOR, SHAHEEN E 692.6 POISON JOHANA 01/18/2009 PATINO DO, VALERIE K 692.6 POISON JOHANA 01/18/2009 HELLWIG AUDIENCE COORDINATOR, SHAHEEN E 692.6 POISON JOHANA 01/18/2009 HELLWIG AUDIENCE COORDINATOR, SHAHEEN E 692.6 POISON JOHANA 01/18/2009 PATINO [...] ZAKIYALANNA MORENONSHAHEEN E 477.9 RHINITIS 04/09/2009 HELLANNA AUDIENCE COORDINATORGADIELSHAHEEN E V15.09 PERSONAL HISTORY OF OTHER ALLERGY [...] OTHER THAN TO MEDICINAL AGENTS 04/09/2009 HELLWIG AUDIENCE COORDINATOR SHAHEEN E 477.9 RHINITIS 04/09/2009 HELLWIG AUDIENCE COORDINATOR, SHAHEEN E V15.09 PERSONAL HISTORY OF OTHER ALLERGY OTHER THAN TO MEDICINAL AGENTS 04/09/2009 SHYAM DPM, ROXY 477.9 RHINITIS 04/09/2009 SHYAM DPM, ROXY V15.09 PERSONAL HISTORY OF OTHER ALLERGY OTHER THAN TO MEDICINAL AGENTS 04/09/2009 HELLWIG AUDIENCE COORDINATORGADIELSHAHEEN E 477.9 RHINITIS 04/09/2009 HELLWIG AUDIENCE COORDINATOR, SHAHEEN E V15.09 PERSONAL HISTORY OF OTHER ALLERGY OTHER THAN TO MEDICINAL AGENTS 04/09/2009 PATINO DO, VALERIE K 477.9 RHINITIS 04/09/2009 PATINO DO, VALERIE K V15.09 PERSONAL HISTORY OF OTHER ALLERGY OTHER THAN TO MEDICINAL AGENTS 04/09/2009 HELLWIG AUDIENCE COORDINATORGADIEL RinaldiSIE E 477.9 RHINITIS 04/09/2009 HELLWIG AUDIENCE COORDINATOR SHAHEEN E V15.09 PERSONAL HISTORY OF OTHER ALLERGY OTHER THAN TO MEDICINAL AGENTS 04/09/2009 HELLWIG AUDIENCE COORDINATOR, SHAHEEN E 477.9 RHINITIS 04/09/2009 HELLWIG AUDIENCE COORDINATOR SHAHEEN E V15.09 PERSONAL HISTORY OF OTHER [...] K 724.2 lower back pain 06/05/2009 HELWIG AUDIENCE COORDINATOR, SHAHEEN E 724.2 lower back pain 06/05/2009 SHYAM DPM, ROXY 724.2 lower back pain 06/05/2009 HELLWIG AUDIENCE COORDINATOR, SHAHEEN E 724.2 lower back pain 06/05/2009 PATINO DO, VALERIE K 724.2 lower back pain [facility]/05/2009 [facility], SHAHEEN E 724.2 lower back pain 06/05/2009 HELWIG AUDIENCE COORDINATOR, SHAHEEN E 724.2 lower back pain 06/05/2009 [...] LUMBAR INTERVERTEBRAL DISC WITHOUT MYELOPATHY 06/19/2009 TILA ZUNGIA DDS 722.10 DISPLACEMENT OF LUMBAR INTERVERTEBRAL DISC [...] LUMBAR INTERVERTEBRAL DISC WITHOUT MYELOPATHY 06/19/2009 ZAKIYAFORMERLY [facility] SHAHEEN LOAIZA E 722.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 06/19/2009 SHAHEEN SOSA APRN E 722.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 06/19/2009 SUKUMAR OCONNOR VALERIE K 722.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 06/19/2009 SUKUMAR OCONNOR VALERIE K 722.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 06/19/2009 SUKMUAR OCONNOR VALERIE K 722.10 DISPLACEMENT OF LUMBAR [...] 845.00 UNSPECIFIED SITE OF ANKLE SPRAIN 07/19/2009 SHAYM DPM, ROXY 250.00 DIABETES MELLITUS POORLY CONTROLLED 07/19/2009 SHYAM DPM, ROXY 845.00 UNSPECIFIED SITE OF ANKLE SPRAIN 07/19/2009 SHAHEEN SOSA APRN E 250.00 DIABETES MELLITUS POORLY CONTROLLED 07/19/2009 HELLWIG AUDIENCE COORDINATOR, SHAHEEN E 845.00 UNSPECIFIED SITE OF ANKLE SPRAIN 07/19/2009 PATINO DO, VALERIE K 250.00 DIABETES MELLITUS POORLY CONTROLLED 07/19/2009 PATINO DO, VALERIE K 845.00 UNSPECIFIED SITE OF ANKLE SPRAIN 07/19/2009 HELLWIG AUDIENCE COORDINATOR, SHAHEEN E 250.00 DIABETES MELLITUS POORLY CONTROLLED 07/19/2009 HELWIG AUDIENCE COORDINATOR, SHAHEEN E 845.00 UNSPECIFIED SITE OF ANKLE SPRAIN 07/19/2009 HELLWIG AUDIENCE COORDINATOR, SHAHEEN E 250.00 DIABETES MELLITUS POORLY CONTROLLED 07/19/2009 HELLWIG AUDIENCE COORDINATOR, SHAHEEN E 845.00 UNSPECIFIED SITE OF ANKLE [...] TRACT INFECTION, SITE NOT SPECIFIED 09/19/2009 HELLWIG AUDIENCE COORDINATOR, SHAHEEN E 599.0 URINARY TRACT INFECTION, SITE NOT SPECIFIED 09/19/2009 SHYAM DPM, ROXY 599.0 URINARY TRACT INFECTION, SITE NOT SPECIFIED 09/19/2009 HELLWIG AUDIENCE COORDINATOR, SHAHEEN E 599.0 URINARY TRACT INFECTION, SITE NOT SPECIFIED 09/19/2009 PATINO DO, VALERIE K 599.0 URINARY TRACT INFECTION, SITE NOT SPECIFIED 09/19/2009 HELLWIG AUDIENCE COORDINATOR, SHAHEEN E 599.0 URINARY TRACT INFECTION, SITE NOT SPECIFIED 09/19/2009 HELLWIG AUDIENCE COORDINATOR, SHAHEEN E 599.0 URINARY TRACT INFECTION, SITE [...] DO, VALERIE K 787.91 DIARRHEA 09/26/2009 HELLWIG AUDIENCE COORDINATOR, SHAHEEN E 388.70 earache 09/26/2009 HELLWIG AUDIENCE COORDINATOR, SHAHEEN E 787.91 DIARRHEA 09/26/2009 NADIA DDS, TILA M 388.70 earache 09/26/2009 NADIA DDS, TILA M 787.91 DIARRHEA 09/26/2009 PATINO DO, VALERIE K 388.70 earache 09/26/2009 PATINO DO, VALERIE K 787.91 DIARRHEA 09/26/2009 PATINO DO, VALERIE K 388.70 earache 09/26/2009 PATINO DO, VALERIE K 787.91 DIARRHEA 09/26/2009 HELLWIG AUDIENCE COORDINATOR, SHAHEEN E 388.70 earache 09/26/2009 HELLWIG AUDIENCE COORDINATOR, SHAHEEN E 787.91 DIARRHEA 09/26/2009 SHYAM DPM, ROXY 388.70 earache 09/26/2009 SHYAM DPM, ROXY 787.91 DIARRHEA 09/26/2009 HELLWIG AUDIENCE COORDINATOR SHAHEEN E 388.70 earache 09/26/2009 HELLWIG AUDIENCE COORDINATOR, SHAHEEN E 787.91 DIARRHEA 09/26/2009 PATINO DO, VALERIE K 388.70 earache 09/26/2009 PATINO DO, VALERIE K 787.91 DIARRHEA 09/26/2009 HELLWIG AUDIENCE COORDINATOR, SHAHEEN E 388.70 earache 09/26/2009 HELLWIG AUDIENCE COORDINATOR, SHAHEEN E 787.91 DIARRHEA 09/26/2009 HELLWIG AUDIENCE COORDINATOR, SHAHEEN E 388.70 earache 09/26/2009 HELLWIG AUDIENCE COORDINATOR, SHAHEEN E 787.91 DIARRHEA 09/26/2009 PATINO DO, [...] DO, VALERIE K 357.9 NEUROPATHY UNSP 10/31/2009 APTINO DO, VALERIE K 401.1 ESSENTIAL HYPERTENSION BENIGN [...] DO, VALERIE K 780.79 FATIGUE 10/31/2009 FELICIANO AUDIENCE COORDINATOR, NAY R 270.7 HYPERGLYCINEMIA 10/31/2009 FELICIANO AUDIENCE COORDINATOR, NAY R 357.9 NEUROPATHY UNSP 10/31/2009 FELICIANO AUDIENCE COORDINATOR, NAY R 401.1 ESSENTIAL HYPERTENSION BENIGN 10/31/2009 FELICIANO AUDIENCE COORDINATOR, NAY R 780.79 FATIGUE 10/31/2009 PATINO DO, [...] DO, VALERIE K 780.79 FATIGUE 10/31/2009 HELLWIG AUDIENCE COORDINATOR, SHAHEEN E 270.7 HYPERGLYCINEMIA 10/31/2009 HELLWIG AUDIENCE COORDINATOR, SHAHEEN E 357.9 NEUROPATHY UNSP 10/31/2009 HELLWIG AUDIENCE COORDINATOR, SHAHEEN E 401.1 ESSENTIAL HYPERTENSION BENIGN 10/31/2009 HELLWIG AUDIENCE COORDINATOR, SHAHEEN E 780.79 FATIGUE 10/31/2009 NADIA DDS, [...] DO, VALERIE K 780.79 FATIGUE 10/31/2009 HELLWIG AUDIENCE COORDINATOR, SHAHEEN E 270.7 HYPERGLYCINEMIA 10/31/2009 [facility] SHAHEEN E 357.9 NEUROPATHY UNSP 10/31/2009 [facility], SHAHEEN E 401.1 ESSENTIAL HYPERTENSION BENIGN 10/31/2009 [facility], SHAHEEN E 780.79 FATIGUE 10/31/2009 SHYAM DPM, ROXY 270.7 HYPERGLYCINEMIA 10/31/2009 SHYAM DPM, ROXY 357.9 NEUROPATHY UNSP 10/31/2009 SHYAM DPM, ROXY 401.1 ESSENTIAL HYPERTENSION BENIGN 10/31/2009 SHYAM DPM, ROXY 780.79 FATIGUE 10/31/2009 [facility], SHAHEEN E 270.7 HYPERGLYCINEMIA 10/31/2009 [facility]IN[facility], SHAHEEN E 357.9 NEUROPATHY UNSP 10/31/2009 [facility], SHAHEEN E 401.1 ESSENTIAL HYPERTENSION BENIGN 10/31/2009 [facility], SHAHEEN E 780.79 FATIGUE 10/31/2009 PATINO DO, VALERIE K 270.7 HYPERGLYCINEMIA 10/31/2009 PATINO DO, VALERIE K 357.9 NEUROPATHY UNSP 10/31/2009 PATINO DO, VALERIE K 401.1 ESSENTIAL HYPERTENSION BENIGN 10/31/2009 PATINO DO, VALERIE K 780.79 FATIGUE 10/31/2009 [facility], SHAHEEN E 270.7 HYPERGLYCINEMIA 10/31/2009 [facility], SHAHEEN E 357.9 NEUROPATHY UNSP 10/31/2009 [facility], SHAHEEN E 401.1 ESSENTIAL HYPERTENSION BENIGN 10/31/2009 HELLWIG AUDIENCE COORDINATOR, SHAHEEN E 780.79 FATIGUE 10/31/2009 HELLWIG AUDIENCE COORDINATOR, SHAHEEN E 270.7 HYPERGLYCINEMIA 10/31/2009 [facility], SHAHEEN E 357.9 NEUROPATHY UNSP 10/31/2009 ZAKIYAAlvinaANNA AUDIENCE COORDINATOR, SHAHEEN E 401.1 ESSENTIAL HYPERTENSION BENIGN 10/31/2009 HELAlvinaANNA AUDIENCE COORDINATOR, SHAHEEN E 780.79 FATIGUE 10/31/2009 PATINO DO, [...] SHYAM DPM, ROXY 250.40 DIABETIC NEPHROPATHY 01/23/2010 [facility] SHAHE[facility] E 250.40 DIABETIC NEPHROPATHY 01/23/2010 PATINO DO, VALERIE K 250.40 DIABETIC NEPHROPATHY 01/23/2010 [facility] SHAHEEN E 250.40 DIABETIC NEPHROPATHY 01/23/2010 [...] K 786.05 Shortness Of Breath 10/15/2010 FELICIANO AUDIENCE COORDINATORNAY R 465.9 Upper Respiratory Infection 10/15/2010 FELICIANO AUDIENCE COORDINATORNAY R 786.05 Shortness Of Breath 10/15/2010 PATINO DO, VALERIE K 465.9 Upper Respiratory Infection 10/15/2010 PATINO DO, VALERIE K 786.05 Shortness Of Breath 10/15/2010 PATINO DO, VALERIE K 465.9 Upper Respiratory Infection 10/15/2010 PATINO DO, VALERIE K 786.05 Shortness Of Breath 10/15/2010 HELLWIG AUDIENCE COORDINATOR, SHAHEEN E 465.9 Upper Respiratory Infection 10/15/2010 HELLWIG AUDIENCE COORDINATOR, SHAHEEN E 786.05 Shortness Of Breath 10/15/2010 NADIA DDS, TILA M 465.9 Upper Respiratory Infection 10/15/2010 NADIA DDS, TILA M 786.05 Shortness Of Breath 10/15/2010 PATINO DO, VALERIE K 465.9 Upper Respiratory Infection 10/15/2010 PATINO DO, VALERIE K 786.05 Shortness Of Breath 10/15/2010 PATINO DO, VALERIE K 465.9 Upper Respiratory Infection 10/15/2010 PATINO DO, VALERIE K 786.05 Shortness Of Breath 10/15/2010 HELLWIG AUDIENCE COORDINATOR, SHAHEEN E 465.9 Upper Respiratory Infection 10/15/2010 HELLWIG AUDIENCE COORDINATOR, SHAHEEN E 786.05 Shortness Of Breath 10/15/2010 SHYAM DPM, ROXY 465.9 Upper Respiratory Infection 10/15/2010 SHYAM DPM, ROXY 786.05 Shortness Of Breath 10/15/2010 HELLWIG AUDIENCE COORDINATOR, SHAHEEN E 465.9 Upper Respiratory Infection 10/15/2010 HELLWIG AUDIENCE COORDINATOR, SHAHEEN E 786.05 Shortness Of Breath 10/15/2010 PATINO DO, VALERIE K 465.9 Upper Respiratory Infection 10/15/2010 PATINO DO, VALERIE K 786.05 Shortness Of Breath 10/15/2010 HELLWIG AUDIENCE COORDINATOR, SHAHEEN E 465.9 Upper Respiratory Infection 10/15/2010 HELLWIG AUDIENCE COORDINATOR, SHAHEEN E 786.05 Shortness Of Breath 10/15/2010 HELLWIG AUDIENCE COORDINATOR, SHAHEEN E 465.9 Upper Respiratory Infection 10/15/2010 HELLWIG AUDIENCE COORDINATOR, SHAHEEN E 786.05 Shortness Of Breath 10/15/2010 PATINO DO, VALERIE K 465.9 Upper Respiratory Infection 10/15/2010 PATINO DO, VALEREI K 786.05 Shortness Of Breath 10/15/2010 PATINO [...] VALERIE K 577.0 Acute Pancreatitis 02/03/2011 HELLWIG AUDIENCE COORDINATOR, SHAHEEN E 577.0 Acute Pancreatitis 02/03/2011 NADIA DDS, TILA M 577.0 Acute Pancreatitis 02/03/2011 PATINO DO, VALERIE K 577.0 Acute Pancreatitis 02/03/2011 PATINO DO, VALERIE K 577.0 Acute Pancreatitis 02/03/2011 HELLWIG AUDIENCE COORDINATOR, SHAHEEN E 577.0 Acute Pancreatitis 02/03/2011 SHYAM DPM, ROXY 577.0 Acute Pancreatitis 02/03/2011 HELLWIG AUDIENCE COORDINATOR, SHAHEEN E 577.0 Acute Pancreatitis 02/03/2011 PATINO DO, VALERIE K 577.0 Acute Pancreatitis 02/03/2011 HELLWIG AUDIENCE COORDINATOR, SHAHEEN E 577.0 Acute Pancreatitis 02/03/2011 HELLWIG AUDIENCE COORDINATOR, SHAHEEN E 577.0 Acute Pancreatitis 02/03/2011 PATINO [...] VALERIE K 784.91 Postnasal Drip 03/25/2011 HELFIONA AUDIENCE COORDINATOR, SHAHEEN E 784.91 Postnasal Drip 03/25/2011 SHYAM DPM, ROXY 784.91 Postnasal Drip 03/25/2011 HELFIONA AUDIENCE COORDINATOR, SHAHEEN E 784.91 Postnasal Drip 03/25/2011 PATINO DO, VALERIE K 784.91 Postnasal Drip 03/25/2011 HELLWIG AUDIENCE COORDINATOR, SHAHEEN E 784.91 Postnasal Drip 03/25/2011 HELLANNA AUDIENCE COORDINATOR, SHAHEEN E 784.91 Postnasal Drip 03/25/2011 PATINO [...] K 788.30 Urinary Incontinence, Unspecified 07/29/2011 HELLWIG AUDIENCE COORDINATOR, SHAHEEN E 788.30 Urinary Incontinence, Unspecified 07/29/2011 NADIA DDS, TILA M 788.30 Urinary Incontinence, Unspecified 07/29/2011 PATINO DO, VALERIE K 788.30 Urinary Incontinence, Unspecified 07/29/2011 PATINO DO, VALERIE K 788.30 Urinary Incontinence, Unspecified 07/29/2011 HELLWIG AUDIENCE COORDINATOR, SHAHEEN E 788.30 Urinary Incontinence, Unspecified 07/29/2011 SHYAM DPM, ROXY 788.30 Urinary Incontinence, Unspecified 07/29/2011 HELLWIG AUDIENCE COORDINATOR, SHAHEEN E 788.30 Urinary Incontinence, Unspecified 07/29/2011 PATINO DO, VALERIE K 788.30 Urinary Incontinence, Unspecified 07/29/2011 HELLWIG AUDIENCE COORDINATOR, SHAHEEN E 788.30 Urinary Incontinence, Unspecified 07/29/2011 HELLWIG AUDIENCE COORDINATOR, SHAHEEN E 788.30 Urinary Incontinence, Unspecified 07/29/2011 [...] OF SKIN AND SUBCUTANEOUS TISSUE 08/04/2011 IAN AUDIENCE COORDINATOR SHAHEEN E 686.9 UNSPECIFIED LOCAL INFECTION OF SKIN AND SUBCUTANEOUS TISSUE 08/04/2011 PATINO DO, VALERIE K 686.9 UNSPECIFIED LOCAL INFECTION OF SKIN AND SUBCUTANEOUS TISSUE 08/04/2011 IAN AUDIENCE COORDINATOR SHAHEEN E 686.9 UNSPECIFIED LOCAL INFECTION OF SKIN AND SUBCUTANEOUS TISSUE 08/04/2011 HELAlvinaWIG AUDIENCE COORDINATOR SHAHEEN E 686.9 UNSPECIFIED LOCAL INFECTION OF [...] OCONNORA K 079.99 VIRAL SYNDROME 08/10/2011 HELLWIG AUDIENCE COORDINATOR, SHAHEEN E 079.99 VIRAL SYNDROME 08/10/2011 NADIA DDS, TILA M 079.99 VIRAL SYNDROME 08/10/2011 PATINO DO, VALERIE K 079.99 VIRAL SYNDROME 08/10/2011 PATINO DO, VALERIE K 079.99 VIRAL SYNDROME 08/10/2011 HELLWIG AUDIENCE COORDINATOR, SHAHEEN E 079.99 VIRAL SYNDROME 08/10/2011 SHYAM DPM, ROXY 079.99 VIRAL SYNDROME 08/10/2011 HELLWIG AUDIENCE COORDINATOR, SHAHEEN E 079.99 VIRAL SYNDROME 08/10/2011 PATINO DO, VALERIE K 079.99 VIRAL SYNDROME 08/10/2011 HELLANNA AUDIENCE COORDINATOR, SHAHEEN E 079.99 VIRAL SYNDROME 08/10/2011 HELLWIG AUDIENCE COORDINATOR, SHAHEEN E 079.99 VIRAL SYNDROME 08/10/2011 PATINO [...] K 786.50 UNSPECIFIED CHEST PAIN 08/28/2011 HELLWIG AUDIENCE COORDINATOR, SHAHEEN E 786.50 UNSPECIFIED CHEST PAIN 08/28/2011 SHYAM DPM, ROXY 786.50 UNSPECIFIED CHEST PAIN 08/28/2011 HELWIG AUDIENCE COORDINATOR, SHAHEEN E 786.50 UNSPECIFIED CHEST PAIN 08/28/2011 PATINO DO, VALERIE K 786.50 UNSPECIFIED CHEST PAIN 08/28/2011 [facility] AUDIENCE COORDINATOR, SHAHEEN E 786.50 UNSPECIFIED CHEST PAIN 08/28/2011 [facility] AUDIENCE COORDINATOR, SHAHEEN E 786.50 UNSPECIFIED CHEST PAIN 08/28/2011 [...] APRN E 276.51 DEHYDRATION (Na, H2O) 02/26/2012 [facility] AUDIENCE COORDINATOR, SHAHEEN E 787.02 nausea 02/26/2012 SHYAM DPM, ROXY 276.51 DEHYDRATION (Na, H2O) 02/26/2012 SHYAM DPM, ROXY 787.02 nausea 02/26/2012 [facility] AUDIENCE COORDINATOR, SHAHEEN E 276.51 DEHYDRATION (Na, H2O) 02/26/2012 [facility] AUDIENCE COORDINATOR, SHAHEEN E 787.02 nausea 02/26/2012 PATINO DO, VALERIE K 276.51 DEHYDRATION (Na, H2O) 02/26/2012 PATINO DO, VALERIE K 787.02 nausea 02/26/2012 [facility] AUDIENCE COORDINATOR, SHAHEEN E 276.51 DEHYDRATION (Na, H2O) 02/26/2012 [facility] AUDIENCE COORDINATOR, SHAHEEN E 787.02 nausea 02/26/2012 [facility] AUDIENCE COORDINATOR, SHAHEEN E 276.51 DEHYDRATION (Na, H2O) 02/26/2012 [facility] AUDIENCE COORDINATOR, SHAHEEN E 787.02 nausea 02/26/2012 PATINO DO, [...] VALERIE K 466.0 ACUTE BRONCHITIS 03/08/2012 [facility] AUDIENCE COORDINATOR, SHAHEEN E 466.0 ACUTE BRONCHITIS 03/08/2012 NADIA DDS, TILA M 466.0 ACUTE BRONCHITIS 03/08/2012 PATINO DO, VALERIE K 466.0 ACUTE BRONCHITIS 03/08/2012 PATINO DO, VALERIE K 466.0 ACUTE BRONCHITIS 03/08/2012 [facility] AUDIENCE COORDINATOR, SHAHEEN E 466.0 ACUTE BRONCHITIS 03/08/2012 SHYAM DPM, ROXY 466.0 ACUTE BRONCHITIS 03/08/2012 [facility] AUDIENCE COORDINATOR, SHAHEEN E 466.0 ACUTE BRONCHITIS 03/08/2012 PATINO DO, VALERIE K 466.0 ACUTE BRONCHITIS 03/08/2012 [facility] AUDIENCE COORDINATOR, SHAHEEN E 466.0 ACUTE BRONCHITIS 03/08/2012 [facility] AUDIENCE COORDINATOR, SHAHEEN E 466.0 ACUTE BRONCHITIS 03/08/2012 PATINO [...] V03.82 Need For Vaccination Pneumococcal 04/12/2012 [facility] AUDIENCE COORDINATORRIGO RinaldiE E V03.82 Need For Vaccination Pneumococcal [...] V03.82 Need For Vaccination Pneumococcal 04/12/2012 [facility] AUDIENCE COORDINATORGADIEL RinaldiSIE E V03.82 Need For Vaccination Pneumococcal 04/12/2012 [facility] V03.82 Need For Vaccination Pneumococcal 04/12/2012 PATINO DO, VALERIE K V03.82 Need For Vaccination Pneumococcal 04/12/2012 PATINO DO, VALERIE K V03.82 Need For Vaccination Pneumococcal 04/12/2012 PATINO DO, VALERIE K V03.82 Need For Vaccination Pneumococcal 04/12/2012 PATINO DO, VALERIE K V03.82 Need For Vaccination Pneumococcal 04/21/2012 SHAMIKA GOLDBERG MD 059.41 joint pain, localized in the right shoulder 04/21/2012 SHAMIKA GOLDBERG MD 780.4 lightheadedness 04/21/2012 SHAMIKA GOLDBERG MD 339.41 joint pain, localized in the right shoulder [...] DO, VALERIE K 780.4 lightheadedness 04/21/2012 [facility] AUDIENCE COORDINATOR, SHAHEEN E 719.41 joint pain, localized in the right shoulder 04/21/2012 [facility] AUDIENCE COORDINATOR, SHAHEEN E 780.4 lightheadedness 04/21/2012 NADIA DDS, [...] DO, VALERIE K 780.4 lightheadedness 04/21/2012 [facility] AUDIENCE COORDINATOR, SHAHEEN E 719.41 joint pain, localized in the right shoulder 04/21/2012 [facility] AUDIENCE COORDINATOR, SHAHEEN E 780.4 lightheadedness 04/21/2012 SHYAM DPM, ROXY 719.41 joint pain, localized in the right shoulder 04/21/2012 SHYAM DPM, ROXY 780.4 lightheadedness 04/21/2012 [facility] AUDIENCE COORDINATOR, SHAHEEN E 719.41 joint pain, localized in the right shoulder 04/21/2012 [facility] AUDIENCE COORDINATOR, SHAHEEN E 780.4 lightheadedness 04/21/2012 PATINO DO, VALERIE K 719.41 joint pain, localized in the right shoulder 04/21/2012 PATINO DO, VALERIE K 780.4 lightheadedness 04/21/2012 [facility] AUDIENCE COORDINATOR, SHAHEEN E 719.41 joint pain, localized in the right shoulder 04/21/2012 [facility] AUDIENCE COORDINATOR, SHAHEEN E 780.4 lightheadedness 04/21/2012 [facility] AUDIENCE COORDINATOR, SHAHEEN E 719.41 joint pain, localized in the right shoulder 04/21/2012 HELLWIG AUDIENCE COORDINATOR, SHAHEEN E 780.4 lightheadedness 04/21/2012 PATINO DO, [...] VALERIE K 386.10 VERTIGO, PERIPHERAL UNSPECIFIED 07/29/2012 [facility] APRN E 386.10 VERTIGO, PERIPHERAL UNSPECIFIED [...] K 386.10 VERTIGO, PERIPHERAL UNSPECIFIED 07/29/2012 HELLWIG AUDIENCE COORDINATOR, SHAHEEN E 386.10 VERTIGO, PERIPHERAL UNSPECIFIED 07/29/2012 HELLWIG AUDIENCE COORDINATOR, SHAHEEN E 386.10 VERTIGO, PERIPHERAL UNSPECIFIED 07/29/2012 [...] K 465.9 UPPER RESPIRATORY INFECTION 08/12/2012 HELLWIG AUDIENCE COORDINATOR, SHAHEEN E 465.9 UPPER RESPIRATORY INFECTION 08/12/2012 SHYAM DPM, ROXY 465.9 UPPER RESPIRATORY INFECTION 08/12/2012 HELLWIG AUDIENCE COORDINATOR, SHAHEEN E 465.9 UPPER RESPIRATORY INFECTION 08/12/2012 PATINO DO, VALERIE K 465.9 UPPER RESPIRATORY INFECTION 08/12/2012 HELLWIG AUDIENCE COORDINATOR, SHAHEEN E 465.9 UPPER RESPIRATORY INFECTION 08/12/2012 HELLWIG AUDIENCE COORDINATOR, SHAHEEN E 465.9 UPPER RESPIRATORY INFECTION 08/12/2012 [...] (3 YRS AND ABOVE, IM) 08/25/2012 ZAKIYAFIONA AUDIENCE COORDINATOR, SHAHEEN E V04.81 FLU DX (3 YRS AND ABOVE, IM) 08/25/2012 PATINO DO, VALERIE K V04.81 FLU DX (3 YRS AND ABOVE, IM) 08/25/2012 ZAKIYAFIONA AUDIENCE COORDINATOR, SHAHEEN E V04.81 FLU DX (3 YRS AND ABOVE, IM) 08/25/2012 HELLANNA AUDIENCE COORDINATOR, SHAHEEN E V04.81 FLU DX (3 YRS [...] 729.5 pain in the arms 09/22/2012 HELFIONA AUDIENCE COORDINATOR, SHAHEEN E 729.5 pain in the arms 09/22/2012 NADIA DDS, TILA M 729.5 pain in the arms 09/22/2012 PATINO DO, VALERIE K 729.5 pain in the arms 09/22/2012 PATINO DO, VALERIE K 729.5 pain in the arms 09/22/2012 IAN AUDIENCE COORDINATOR, SHAHEEN E 729.5 pain in the arms 09/22/2012 SHYAM DPMNICKIIN 729.5 pain in the arms 09/22/2012 HELLANNA AUDIENCE COORDINATOR, SHAHEEN E 729.5 pain in the arms 09/22/2012 PATINO DO, VALERIE K 729.5 pain in the arms 09/22/2012 HELLWIG AUDIENCE COORDINATOR, SHAHEEN E 729.5 pain in the arms 09/22/2012 HELLWIG AUDIENCE COORDINATOR, SHAHEEN E 729.5 pain in the arms [...] 790.6 ABNORMAL LIVER FUNCTION TEST 12/21/2012 [facility] AUDIENCE COORDINATOR, SHAHEEN E 790.6 ABNORMAL LIVER FUNCTION TEST 12/21/2012 SHYAM DPM, ROXY 790.6 ABNORMAL LIVER FUNCTION TEST 12/21/2012 [facility] AUDIENCE COORDINATOR, SHAHEEN E 790.6 ABNORMAL LIVER FUNCTION TEST 12/21/2012 PATINO DO, VALERIE K 790.6 ABNORMAL LIVER FUNCTION TEST 12/21/2012 HELLWIG AUDIENCE COORDINATOR, SHAHEEN E 790.6 ABNORMAL LIVER FUNCTION TEST 12/21/2012 HELWIG AUDIENCE COORDINATOR, SHAHEEN E 790.6 ABNORMAL LIVER FUNCTION TEST [...] VALERIE K 296.80 MO BIPOLAR NOS 12/28/2012 [facility] SHAHEEN E 296.80 MO BIPOLAR NOS 12/28/2012 NADIA DDS, TILA M 296.80 MO BIPOLAR NOS 12/28/2012 PATINO DO, VALERIE K 296.80 MO BIPOLAR NOS 12/28/2012 PATINO DO, VALERIE K 296.80 MO BIPOLAR NOS 12/28/2012 GADIEL SOSA APRNSIE E 296.80 MO BIPOLAR NOS 12/28/2012 SHYAM DPM, ROXY 296.80 MO BIPOLAR NOS 12/28/2012 [facility] APRNE E 296.80 MO BIPOLAR NOS [...] K 296.90 MOOD DISORDER NOS 03/09/2013 HELLWIG AUDIENCE COORDINATOR, SHAHEEN E 296.90 MOOD DISORDER NOS 03/09/2013 NADIA RONSTILA M 296.90 MOOD DISORDER NOS 03/09/2013 PATINO DO, VALERIE K 296.90 MOOD DISORDER NOS 03/09/2013 PATINO DO, VALERIE K 296.90 MOOD DISORDER NOS 03/09/2013 HELLWIG AUDIENCE COORDINATOR, SHAHEEN E 296.90 MOOD DISORDER NOS 03/09/2013 ROXY HOWE DPM 296.90 MOOD DISORDER NOS 03/09/2013 HELLWIG AUDIENCE COORDINATOR, SHAHEEN E 296.90 MOOD DISORDER NOS 03/09/2013 PATINO DO, VALERIE K 296.90 MOOD DISORDER NOS 03/09/2013 HELLWIG AUDIENCE COORDINATOR, SHAHENE E 296.90 MOOD DISORDER NOS 03/09/2013 HELLWIG AUDIENCE COORDINATOR, SHAHEEN E 296.90 MOOD DISORDER NOS 03/09/2013 [...] 726.90 ENTHESOPATHY OF UNSPECIFIED SITE 03/23/2013 HELLWIG AUDIENCE COORDINATOR SHAHEEN E 380.10 INFECTIVE OTITIS EXTERNA UNSPECIFIED 03/23/2013 HELLWIG AUDIENCE COORDINATOR SHAHEEN E 461.9 SINUSITIS ACUTE 03/23/2013 HELLWIG AUDIENCE COORDINATOR SHAHEEN E 726.90 ENTHESOPATHY OF UNSPECIFIED SITE 03/23/2013 SHYAM DPM, ROXY 380.10 INFECTIVE OTITIS EXTERNA UNSPECIFIED 03/23/2013 SHYAM DPM, ROXY 461.9 SINUSITIS ACUTE 03/23/2013 SHYAM DPM, ROXY 726.90 ENTHESOPATHY OF UNSPECIFIED SITE 03/23/2013 HELLWIG AUDIENCE COORDINATOR SHAHEEN E 380.10 INFECTIVE OTITIS EXTERNA UNSPECIFIED 03/23/2013 HELLWIG AUDIENCE COORDINATORGADIELSHAEHEN E 461.9 SINUSITIS ACUTE 03/23/2013 HELLWIG AUDIENCE COORDINATOR SHAHEEN E 726.90 ENTHESOPATHY OF UNSPECIFIED SITE 03/23/2013 PATINO DO, VALERIE K 380.10 INFECTIVE OTITIS EXTERNA UNSPECIFIED 03/23/2013 PATINO DO, VALERIE K 461.9 SINUSITIS ACUTE 03/23/2013 PATINO DO, VALERIE K 726.90 ENTHESOPATHY OF UNSPECIFIED SITE 03/23/2013 HELLWIG AUDIENCE COORDINATOR SHAHEEN E 380.10 INFECTIVE OTITIS EXTERNA UNSPECIFIED 03/23/2013 HELLWIG AUDIENCE COORDINATORGADIELSHAHEEN E 461.9 SINUSITIS ACUTE 03/23/2013 HELLWIG AUDIENCE COORDINATOR SHAHEEN E 726.90 ENTHESOPATHY OF UNSPECIFIED SITE 03/23/2013 HELLWIG AUDIENCE COORDINATOR SHAHEEN E 380.10 INFECTIVE OTITIS EXTERNA UNSPECIFIED 03/23/2013 HELLWIG AUDIENCE COORDINATOR SHAHEEN E 461.9 SINUSITIS ACUTE 03/23/2013 SHAHEEN [...] K 300.02 AN GEN ANXIETY 04/05/2013 HELLWIG AUDIENCE COORDINATOR, SHAHEEN E 300.02 AN GEN ANXIETY 04/05/2013 [...] SHAHEEN E 300.02 AN GEN ANXIETY 04/05/2013 [facility] SHAHEEN E 300.02 AN GEN ANXIETY [...] K 780.50 SLEEP DISTURBANCE, UNSPECIFIED 07/26/2013 HELLANNA AUDIENCE COORDINATOR, SHAHEEN E 780.50 SLEEP DISTURBANCE, UNSPECIFIED 07/26/2013 NADIA DDS, TILA M 780.50 SLEEP DISTURBANCE, UNSPECIFIED 07/26/2013 PATINO DO, VALERIE K 780.50 SLEEP DISTURBANCE, UNSPECIFIED 07/26/2013 PATINO DO, VALERIE K 780.50 SLEEP DISTURBANCE, UNSPECIFIED 07/26/2013 HELLANNA LOAIZA SHAHEEN E 780.50 SLEEP DISTURBANCE, UNSPECIFIED 07/26/2013 SHYAM DPMROXY 780.50 SLEEP DISTURBANCE, UNSPECIFIED 07/26/2013 HELLWIG AUDIENCE COORDINATOR, SHAHEEN E 780.50 SLEEP DISTURBANCE, UNSPECIFIED 07/26/2013 PATINO DO, VALERIE K 780.50 SLEEP DISTURBANCE, UNSPECIFIED 07/26/2013 HELLWIG AUDIENCE COORDINATOR, SHAHEEN E 780.50 SLEEP DISTURBANCE, UNSPECIFIED 07/26/2013 HELLWIG AUDIENCE COORDINATOR, SHAHEEN E 780.50 SLEEP DISTURBANCE, UNSPECIFIED 07/26/2013 [...] LOAIZA, SHAHEEN E 110.1 ONYCHOMYCOSIS 05/04/2014 HELLWIG AUDIENCE COORDINATOR, SHAHEEN E 356.9 NEUROPATHY 05/04/2014 SHYAM DPM, ROXY 110.1 ONYCHOMYCOSIS 05/04/2014 SHYAM DPM, ROXY 356.9 NEUROPATHY 05/04/2014 IAN AUDIENCE COORDINATOR, SHAHEEN E 110.1 ONYCHOMYCOSIS 05/04/2014 HELLWIG AUDIENCE COORDINATOR, SHAHEEN E 356.9 NEUROPATHY 05/04/2014 PATINO DO, VALERIE K 110.1 ONYCHOMYCOSIS 05/04/2014 PATINO DO, VALERIE K 356.9 NEUROPATHY 05/04/2014 HELLWIG AUDIENCE COORDINATOR, SHAHEEN E 110.1 ONYCHOMYCOSIS 05/04/2014 HELLWIG AUDIENCE COORDINATOR, SHAHEEN E 356.9 NEUROPATHY 05/04/2014 HELLWIG AUDIENCE COORDINATOR, SHAHEEN E 110.1 ONYCHOMYCOSIS 05/04/2014 HELLWIG AUDIENCE COORDINATOR SHAHEEN E 356.9 NEUROPATHY 05/04/2014 PATINO DO, VALERIE K 110.1 ONYCHOMYCOSIS 05/04/2014 PATINO DO, VALERIE K 356.9 NEUROPATHY 05/04/2014 PATINO DO, VALERIE K 110.1 ONYCHOMYCOSIS 05/04/2014 PATINO DO, VALERIE K 356.9 NEUROPATHY 05/04/2014 PATINO DO, VALERIE K 110.1 ONYCHOMYCOSIS 05/04/2014 PATINO DO, VALERIE K 356.9 NEUROPATHY 05/04/2014 PATINO DO, VALERIE K 110.1 ONYCHOMYCOSIS 05/04/2014 PATINO DO, VALERIE K 356.9 NEUROPATHY 06/15/2014 ELVA ÁLVAREZ AUDIENCE COORDINATOR Ot 845.00 SPRAIN OF ANKLE NOS 06/15/2014 ELVA ÁLVAREZ AUDIENCE COORDINATOR Ot E880.9 FALL ON STAIR/STEP NEC 07/15/2014 [...] TOE (ACQUIRED) 01/29/2015 VALERIE PATINO DO V72.31 LIQUEFACTION PLANT OPERATOR EXAM, ROUTINE 01/29/2015 VALERIE PATINO DO K V76.10 BREAST CANCER SCREENING 01/29/2015 VALERIE PATINO DO K V76.51 COLON CANCER SCREENING 01/29/2015 VALERIE PATINO DO V72.31 LIQUE[employer]CTION PLANT OPERATOR EXAM, ROUTINE 01/29/2015 VALERIE PATINO DO K V76.10 BREAST CANCER SCREENING 01/29/2015 GADIEL PATINO DOA K V76.51 COLON CANCER SCREENING 01/29/2015 GADIEL PATINO DOA K V72.31 LIQUEFACTION PLANT OPERATOR EXAM, ROUTINE 01/29/2015 GADIEL PATINO DOA [...] E849.0 02/12/2015 Ot E888.9 02/12/2015 SANDRA SALMERON AUDIENCE COORDINATOR Ot V76.12 02/14/2015 SANDRA SALMERON APRN Ot V76.12 03/13/2015 SHAHEEN SOSA APRN Ot 780.2 03/15/2015 SHAHEEN SOAS APRN Ot 433.10 03/15/2015 SHAHEEN SOSA APRN [...] E849.0 04/15/2015 Ot E888.9 04/15/2015 SANDRA SALMERON AUDIENCE COORDINATOR Ot V76.12 04/15/2015 SHAHEEN SOSA AUDIENCE COORDINATOR Ot 433.10 04/15/2015 SHAHEEN SOSA AUDIENCE COORDINATOR Ot 433.30 04/15/2015 SHAHEEN SOSA AUDIENCE COORDINATOR Ot 780.2 04/22/2015 AMBER HERNANDEZ MD Ot [...] HERNANDEZ MD Ot 414.01 CORONARY ATHEROSCLEROSIS OF [place] CORON 04/22/2015 AMBER HERNANDEZ MD Ot 530.81 [...] ADAMS MD Ot 414.01 CORONARY ATHEROSCLEROSIS OF [place] CORON 05/22/2015 KETAN ADAMS MD Ot 585.9 CHRONIC KIDNEY DISEASE, UNSPECIFIED 05/22/2015 KETAN ADAMS MD Ot 794.30 [facility] CARDIOVASC STUDY NOS 05/22/2015 KETAN ADAMS MD Ot V58.69 OTH MED,LT,CURRENT USE 08/26/2015 ELVA ÁLVAREZ AUDIENCE COORDINATOR Ot E11.65 TYPE 2 DIABETES MELLITUS WITH HYPERGLYCE 08/27/2015 Ot 722.52 08/27/2015 Ot V45.4 08/27/2015 Ot V81.5 08/27/2015 Ot 780.2 08/27/2015 Ot 780.2 08/27/2015 Ot 729.5 08/27/2015 Ot 908.9 08/27/2015 Ot E929.3 08/27/2015 Ot 726.10 08/27/2015 Ot 840.4 08/27/2015 Ot E000.8 08/27/2015 Ot E849.0 08/27/2015 Ot E888.9 08/27/2015 SANDRA SALMERON AUDIENCE COORDINATOR Ot V76.12 08/27/2015 SHAHEEN SOSA AUDIENCE COORDINATOR Ot 433.10 08/27/2015 SHAHEEN SOSA AUDIENCE COORDINATOR Ot 433.30 08/27/2015 SHAHEEN SOSA AUDIENCE COORDINATOR Ot 780.2 08/27/2015 KETAN ADAMS MD Ot 786.50 10/18/2015 Ot 722.52 10/18/2015 Ot V45.4 10/18/2015 Ot V81.5 10/18/2015 Ot 780.2 10/18/2015 Ot 780.2 10/18/2015 Ot 729.5 10/18/2015 Ot 908.9 10/18/2015 Ot E929.3 10/18/2015 Ot 726.10 10/18/2015 Ot 840.4 10/18/2015 Ot E000.8 10/18/2015 Ot E849.0 10/18/2015 Ot E888.9 10/18/2015 SANDRA SALMERON AUDIENCE COORDINATOR Ot V76.12 10/18/2015 SHAHEEN SOSA AUDIENCE COORDINATOR Ot 433.10 10/18/2015 SHAHEEN SOSA AUDIENCE COORDINATOR Ot 433.30 10/18/2015 SHAHEEN SOSA AUDIENCE COORDINATOR Ot 780.2 10/18/2015 BRYAN MC, KETAN Nolasco Ot 786.50 10/18/2015 JAC MC, DAVID James Ot K21.9 GASTRO-ESOPHAGEAL REFLUX DISEASE WITHOUT 10/18/2015 JAC MC, DAVID James Ot R07.9 CHEST PAIN, UNSPECIFIED 11/26/2015 ELVA ÁLVAREZ APRN Ot S80.12XA CONTUSION OF LEFT LOWER LEG, INITIAL ENC 11/26/2015 ELVA ÁLVAREZ AUDIENCE COORDINATOR Ot X58.XXXA EXPOSURE TO OTHER SPECIFIED FACTORS, INI 11/26/2015 ELVA ÁLVAREZ AUDIENCE COORDINATOR Ot Y99.8 OTHER EXTERNAL CAUSE STATUS 06/14/2016 [...] INITIAL 06/14/2016 R[facility]IT CAMPA DO [facility] Y92.[address] [facility] [address] [facility] (PRIVATE 06/14/2016 ROHIT CAMPA DO Ot Y99.8 OTHER EXTERNAL CAUSE STATUS 06/15/2016 ROHIT CAMPA DO Ot 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, UN 06/15/2016 ROHIT CMAPA DO Ot M51.37 OTHER INTERVERTEBRAL DISC DEGENERATION, [...] Ot E888.9 FALL NOS 07/14/2016 SANDRA SALMERON AUDIENCE COORDINATOR Ot V76.12 OTH SCREEN MAMMO-MALIGN NEOPLASM OF [place] 07/14/2016 SHAHEEN SOSA E AUDIENCE COORDINATOR Ot 433.10 CAROTID ARTERY OCCLUSION W O CEREBRAL IN 07/14/2016 SHAHEEN SOSA AUDIENCE COORDINATOR Ot 433.30 MULT BILTRAL ARTERY OCCLUSION WO CEREBRA 07/14/2016 SHAHEEN SOSA E AUDIENCE COORDINATOR Ot 780.2 SYNCOPE AND COLLAPSE 07/14/2016 BRYAN MC, KETAN Nolasco Ot 786.50 CHEST PAIN NOS 07/15/2016 DAIN MONTANEZ Ot E78.2 MIXED HYPERLIPIDEMIA 07/15/2016 DAIN MONTANEZ Ot I25.10 ATHSCL HEART DISEASE OF [place] CORONARY 07/15/2016 DAIN MONTANEZ Ot R42 DIZZINESS AND GIDDINESS 07/15/2016 DAIN MONTANEZ Ot R55 SYNCOPE AND COLLAPSE 07/28/2016 DAIN MONTANEZ Ot E78.2 MIXED HYPERLIPIDEMIA 07/28/2016 DAIN MONTANEZ Ot I25.10 ATHSCL HEART DISEASE OF [place] CORONARY 07/28/2016 DAIN MONTANEZ Ot R42 DIZZINESS [...] E888.9 FALL NOS 08/11/2016 FAVIOLA, SANDRA A AUDIENCE COORDINATOR Ot V76.12 OT SCREEN MAMMO-MALIGN NEOPLASM OF [place] 08/11/2016 SHAHEEN SOSA AUDIENCE COORDINATOR Ot 433.10 CAROTID ARTERY OCCLUSION W O CEREBRAL IN 08/11/2016 SHAHEEN SOSA AUDIENCE COORDINATOR Ot 433.30 MULT BILTRAL ARTERY OCCLUSION WO CEREBRA 08/11/2016 SHAHEEN SOSA AUDIENCE COORDINATOR Ot 780.2 SYNCOPE AND COLLAPSE 08/11/2016 BRYAN MC, KETAN Nolasco Ot 786.50 CHEST PAIN NOS 08/11/2016 DAIN MONTANEZ Ot E78.2 MIXED HYPERLIPIDEMIA 08/11/2016 DAIN MONTANEZ Ot I25.10 ATHSCL HEART DISEASE OF [place] CORONARY 08/11/2016 DAIN MONTANEZ Ot R42 DIZZINESS [...] E888.9 FALL NOS 11/03/2016 SANDRA SALMERON A AUDIENCE COORDINATOR Ot V76.12 OTH SCREEN MAMMO-MALIGN NEOPLASM OF [place] 11/03/2016 SHAHEEN SOSA E AUDIENCE COORDINATOR Ot 433.10 CAROTID ARTERY OCCLUSION W O CEREBRAL IN 11/03/2016 SHAHEEN SOSA E AUDIENCE COORDINATOR Ot 433.30 MULT BILTRAL ARTERY OCCLUSION WO CEREBRA 11/03/2016 SHAHEEN SOSA E AUDIENCE COORDINATOR Ot 780.2 SYNCOPE AND COLLAPSE 11/03/2016 BRYAN MC, KETAN Nolasco Ot 786.50 CHEST PAIN NOS 11/03/2016 DAIN MONTANEZ Ot E78.2 MIXED HYPERLIPIDEMIA 11/03/2016 DAIN MONTANEZ Ot I25.10 ATHSCL HEART DISEASE OF [place] CORONARY 11/03/2016 DAIN MONTANEZ Ot R42 DIZZINESS [...] MD Ot I25.10 ATHSCL HEART DISEASE OF [place] CORONARY 12/23/2016 JUDI RICHARDS MD Ot K21.9 [...] E888.9 FALL NOS 01/26/2017 SANDRA SALMERON A AUDIENCE COORDINATOR Ot V76.12 OTH SCREEN MAMMO-MALIGN NEOPLASM OF [place] 01/26/2017 SHAHEEN SOSA AUDIENCE COORDINATOR Ot 433.10 CAROTID ARTERY OCCLUSION W O CEREBRAL IN 01/26/2017 SHAHEEN SOSA AUDIENCE COORDINATOR Ot 433.30 MULT BILTRAL ARTERY OCCLUSION WO CEREBRA 01/26/2017 SHAHEEN SOSA AUDIENCE COORDINATOR Ot 780.2 SYNCOPE AND COLLAPSE 01/26/2017 BRYAN MC, KETAN Nolasco Ot 786.50 CHEST PAIN NOS 01/26/2017 DAIN MONTANEZ Ot E78.2 MIXED HYPERLIPIDEMIA 01/26/2017 DAIN MONTANEZ Ot I25.10 ATHSCL HEART DISEASE OF [place] CORONARY 01/26/2017 DAIN MONTANEZ Ot R42 DIZZINESS AND GIDDINESS 01/26/2017 DAIN MONTANEZ Ot R55 SYNCOPE AND COLLAPSE 01/26/2017 DAIN MONTANEZ Ot E78.2 MIXED HYPERLIPIDEMIA 01/26/2017 LINDA MANSFIELD DO Ot E11.9 TYPE 2 DIABETES MELLITUS WITHOUT COMPLIC 01/26/2017 LINDA MANSFIELD DO Ot K20.9 ESOPHAGITIS, UNSPECIFIED 01/26/2017 LINDA MANSFIELD DO Ot K29.70 GASTRITIS, UNSPECIFIED, WITHOUT BLEEDING 01/26/2017 LINDA MANSFIELD DO Ot Z79.4 SKILLED NURSING (CURRENT) USE OF INSULIN 01/27/2017 LINDA MANSFIELD DO Ot E11.9 TYPE 2 DIABETES MELLITUS WITHOUT COMPLIC 01/27/2017 LINDA MANSFIELD DO Ot K20.9 ESOPHAGITIS, UNSPECIFIED 01/27/2017 LINDA MANSFIELD DO Ot K29.70 GASTRITIS, UNSPECIFIED, WITHOUT BLEEDING 01/27/2017 MANSFIELD DO, LINDA D Ot Z79.4 HIGH CLIMBER (CURRENT) USE OF INSULIN 02/01/2017 MANSFIELD DO, LINDA D Ot E11.9 TYPE 2 DIABETES MELLITUS WITHOUT COMPLIC 02/01/2017 MANSFIELD DO, LINDA D Ot K20.9 ESOPHAGITIS, UNSPECIFIED 02/01/2017 MANSFIELD DO, LINDA D Ot K29.70 GASTRITIS, UNSPECIFIED, WITHOUT BLEEDING 02/01/2017 MANSFIELD DO, LINDA D Ot Z79.4 HIGH CLIMBER (CURRENT) USE OF INSULIN 02/04/2017 MANSFIELD DO, LINDA D Ot E11.9 TYPE 2 DIABETES MELLITUS WITHOUT COMPLIC 02/04/2017 MANSFIELD DO, LINDA D Ot K20.9 ESOPHAGITIS, UNSPECIFIED 02/04/2017 MANSFIELD DO, LINDA D Ot K29.70 GASTRITIS, UNSPECIFIED, WITHOUT BLEEDING 02/04/2017 MANSFIELD DO, LINDA D Ot Z79.4 SKILLED NURSING (CURRENT) USE OF INSULIN 02/06/2017 MANSFIELD DO, LINDA D Ot E11.9 TYPE 2 DIABETES MELLITUS WITHOUT COMPLIC 02/06/2017 MANSFIELD DO, LINDA D Ot K20.9 ESOPHAGITIS, UNSPECIFIED 02/06/2017 MANSFIELD DO, LINDA D Ot K29.70 GASTRITIS, UNSPECIFIED, WITHOUT BLEEDING 02/06/2017 MANSFIELD DO, LINDA D Ot Z79.4 SKILLED NURSING (CURRENT) USE OF INSULIN 02/10/2017 Ot 780.2 [...] Ot E888.9 FALL NOS 02/10/2017 SANDRA SALMERON AUDIENCE COORDINATOR Ot V76.12 OTH SCREEN MAMMO-MALIGN NEOPLASM OF [place] 02/10/2017 SHAHEEN SOSA AUDIENCE COORDINATOR Ot 433.10 CAROTID ARTERY OCCLUSION W O CEREBRAL IN 02/10/2017 SHAHEEN SOSA AUDIENCE COORDINATOR Ot 433.30 MULT BILTRAL ARTERY OCCLUSION WO CEREBRA 02/10/2017 SHAHEEN SOSA APRN Ot 780.2 SYNCOPE AND COLLAPSE 02/10/2017 BRYAN MC, KETAN Nolasco Ot 786.50 CHEST PAIN NOS 02/10/2017 DAIN MONTANEZ Ot E78.2 MIXED HYPERLIPIDEMIA 02/10/2017 DAIN MONTANEZ Ot I25.10 ATHSCL HEART DISEASE OF [place] CORONARY 02/10/2017 DAIN MONTANEZ Ot R42 DIZZINESS AND GIDDINESS 02/10/2017 DAIN MONTANEZ Ot R55 SYNCOPE AND COLLAPSE 02/10/2017 DAIN MONTANEZ Ot E78.2 MIXED HYPERLIPIDEMIA 02/19/2017 OSWALDO ALTAMIRANO AUDIENCE COORDINATOR Ot Z12.31 ENCNTR SCREEN MAMMOGRAM FOR MALIGNANT NE 03/09/2017 OSWALDO ALTAMIRANO AUDIENCE COORDINATOR Ot N64.89 OTHER SPECIFIED DISORDERS OF BREAST 03/14/2017 OSWALDO ALTAMIRANO AUDIENCE COORDINATOR Ot N64.89 OTHER SPECIFIED DISORDERS OF BREAST 03/19/2017 OSWALDO ALTAMIRANO AUDIENCE COORDINATOR Ot N64.89 OTHER SPECIFIED DISORDERS OF BREAST [...] OTHER EXTERNAL CAUSE STATUS 09/14/2017 OSWALDO ALTAMIRANO AUDIENCE COORDINATOR Ot N64.89 OTHER SPECIFIED DISORDERS OF BREAST 09/24/2017 OSWALDO ALTAMIRANO AUDIENCE COORDINATOR Ot N64.89 OTHER SPECIFIED DISORDERS OF BREAST 11/10/2017 OSWALDO ALTAMIRANO AUDIENCE COORDINATOR Ot E11.42 TYPE 2 DIABETES MELLITUS WITH DIABETIC P 11/10/2017 OSWALDO ALTAMIRANO AUDIENCE COORDINATOR Ot N28.9 DISORDER OF KIDNEY AND URETER, UNSPECIFI 03/29/2018 ANIBAL SALMERONALCIDES Ford AUDIENCE COORDINATOR Ot V76.12 OTH SCREEN MAMMO-MALIGN NEOPLASM OF [place] 03/29/2018 SHAHEEN SOSA AUDIENCE COORDINATOR Ot 433.10 CAROTID ARTERY OCCLUSION W O CEREBRAL IN 03/29/2018 SHAHEEN SOSA AUDIENCE COORDINATOR Ot 433.30 MULT BILTRAL ARTERY OCCLUSION WO CEREBRA 03/29/2018 SHAHEEN SOSA AUDIENCE COORDINATOR Ot 780.2 SYNCOPE AND COLLAPSE 03/29/2018 BRYAN MC, KETAN Nolasco Ot 786.50 CHEST PAIN NOS 03/29/2018 DAIN MONTANEZ Ot E78.2 MIXED HYPERLIPIDEMIA 03/29/2018 DAIN MONTANEZ Ot I25.10 ATHSCL HEART DISEASE OF [place] CORONARY 03/29/2018 DAIN MONTANEZ Ot R42 DIZZINESS AND GIDDINESS 03/29/2018 DAIN MONTANEZ Ot R55 SYNCOPE AND COLLAPSE 03/29/2018 DAIN MONTANEZ Ot E78.2 MIXED HYPERLIPIDEMIA 03/29/2018 OSWALDO ALTAMIRANO AUDIENCE COORDINATOR Ot Z12.31 ENCNTR SCREEN MAMMOGRAM FOR MALIGNANT NE 03/29/2018 OSWALDO ALTAMIRANO AUDIENCE COORDINATOR Ot N64.89 OTHER SPECIFIED DISORDERS OF BREAST 03/29/2018 JUDI RICHARDS MD Ot M54.2 CERVICALGIA 03/29/2018 JUDI RICHARDS MD, Ot R51 HEADACHE 03/29/2018 JUDI RICHARDS MD, Ot S09.90XA UNSPECIFIED INJURY OF HEAD, INITIAL ENCO 03/29/2018 JUDI RICHARDS MD, Ot X58.XXXA EXPOSURE TO OTHER SPECIFIED FACTORS, INI 03/29/2018 JUDI RICHARDS MD N Ot Y99.8 OTHER EXTERNAL CAUSE STATUS 03/29/2018 ADARSHOSWALDO Navya AUDIENCE COORDINATOR Ot N64.89 OTHER SPECIFIED DISORDERS OF BREAST 03/29/2018 ADARSHOSWALDO Navya AUDIENCE COORDINATOR Ot E11.42 TYPE 2 DIABETES MELLITUS WITH DIABETIC P 03/29/2018 ADARSHOSWALDO Navya AUDIENCE COORDINATOR Ot N28.9 DISORDER OF KIDNEY AND URETER, [...] PAIN 04/22/2018 SHAHID FLORES MD Ot Z79.4 SKILLED NURSING (CURRENT) USE OF INSULIN 04/22/2018 SHAHID FLORES MD, Ot Z79.82 HIGH CLIMBER (CURRENT) USE OF ASPIRIN 04/22/2018 SHAHID FLORES [...] PAIN 04/25/2018 SHAHID FLORES MD Ot Z79.4 HIGH CLIMBER (CURRENT) USE OF INSULIN 04/25/2018 SHAHID FLORES MD Ot Z79.82 HIGH CLIMBER (CURRENT) USE OF ASPIRIN 04/25/2018 SHAHID FLORES [...] MONTANEZ Ot I25.10 ATHSCL HEART DISEASE OF [place] CORONARY 05/30/2018 DAIN MONTANEZ Ot R42 DIZZINESS [...] DISEASE, STAGE 3 (MODERAT 05/30/2018 SANDRA SALMERON AUDIENCE COORDINATOR Ot V76.12 OTH SCREEN MAMMO-MALIGN NEOPLASM OF [place] 05/30/2018 SHAHEEN SOSA AUDIENCE COORDINATOR Ot 433.10 CAROTID ARTERY OCCLUSION W O CEREBRAL IN 05/30/2018 SHAHEEN SOSA AUDIENCE COORDINATOR Ot 433.30 MULT BILTRAL ARTERY OCCLUSION WO CEREBRA 05/30/2018 SHAHEEN SOSA APRN Ot 780.2 SYNCOPE AND COLLAPSE 05/30/2018 BRYAN MC, KETAN Nolasco Ot 786.50 CHEST PAIN NOS 05/30/2018 DAIN MONTANEZ Ot E78.2 MIXED HYPERLIPIDEMIA 05/30/2018 DAIN MONTANEZ Ot I25.10 ATHSCL HEART DISEASE OF [place] CORONARY 05/30/2018 DAIN MONTANEZ Ot R42 DIZZINESS [...] SPECIFIED DISORDERS OF BREAST 05/30/2018 OSWALDO ALTAMIRANO AUDIENCE COORDINATOR Ot E11.42 TYPE 2 DIABETES MELLITUS WITH [...] SERUM ENZYMES 10/19/2018 BERNKYLIE, GEOVANI Ot Z79.4 SKILLED NURSING (CURRENT) USE OF INSULIN 10/19/2018 BERNOT, GEOVANI Ot Z79.51 HIGH CLIMBER (CURRENT) USE OF INHALED STERO 10/19/2018 WALTEROT, GEOVANI Ot Z79.82 SKILLED NURSING (CURRENT) USE OF ASPIRIN 10/19/2018 BERNOT, GEOVANI [...] SERUM ENZYMES 10/21/2018 BERNOT, GEOVANI Ot Z79.4 HIGH CLIMBER (CURRENT) USE OF INSULIN 10/21/2018 BERNOT, GEOVANI Ot Z79.51 SKILLED NURSING (CURRENT) USE OF INHALED STERO 10/21/2018 SAADIA LUTZIS Ot Z79.82 SKILLED NURSING (CURRENT) USE OF ASPIRIN 10/21/2018 BERNKYLIESAADIAIS Ot Z82.49 FAMILY HX OF [place] HEART DIS AND OTH DI 10/21/2018 BOLIVARSAADIAIS Ot Z87.19 PERSONAL HISTORY OF OTHER DISEASES [...] UNSPECIFIED 11/01/2018 ELVA ÁLVAREZ APRN Ot Z79.4 SKILLED NURSING (CURRENT) USE OF INSULIN 11/01/2018 ELVA ÁLVAREZ APRN Ot Z79.51 HIGH CLIMBER (CURRENT) USE OF INHALED STERO 11/01/2018 ELVA ÁLVAREZ APRN Ot Z79.82 HIGH CLIMBER (CURRENT) USE OF ASPIRIN 11/01/2018 ELVA ÁLVAREZ APRN Ot Z88.5 ALLERGY STATUS TO NARCOTIC AGENT STATUS 11/01/2018 ELVA ÁLVAREZ APRN Ot Z90.49 ACQUIRED ABSENCE OF OTHER SPECIFIED PART 11/01/2018 ELVA ÁLVAREZ APRN Ot Z90.710 ACQUIRED ABSENCE OF BOTH CERVIX AND UTER 11/03/2018 ELVA ÁLVAREZ AUDIENCE COORDINATOR Ot E11.40 TYPE 2 DIABETES MELLITUS WITH DIABETIC N 11/03/2018 ELVA ÁLVAREZ APRN Ot E78.00 PURE HYPERCHOLESTEROLEMIA, UNSPECIFIED 11/03/2018 ELVA ÁLVAREZ APRN Ot F31.9 BIPOLAR DISORDER, UNSPECIFIED 11/03/2018 ELVA ÁLVAREZ APRN Ot F41.9 ANXIETY DISORDER, UNSPECIFIED 11/03/2018 ELVA ÁLVAREZ APRN Ot K21.9 GASTRO-ESOPHAGEAL REFLUX DISEASE WITHOUT 11/03/2018 ELVA ÁLVAREZ APRN Ot R11.2 NAUSEA WITH VOMITING, UNSPECIFIED 11/03/2018 ELVA ÁLVAREZ APRN Ot Z79.4 SKILLED NURSING (CURRENT) USE OF INSULIN 11/03/2018 ELVA ÁLVAREZ APRN Ot Z79.51 SKILLED NURSING (CURRENT) USE OF INHALED STERO 11/03/2018 ELVA ÁLVAREZ APRN Ot Z79.82 HIGH CLIMBER (CURRENT) USE OF ASPIRIN 11/03/2018 ELVA ÁLVAREZ APRN Ot Z88.5 ALLERGY STATUS TO NARCOTIC AGENT STATUS 11/03/2018 ELVA ÁLVAREZ AUDIENCE COORDINATOR Ot Z90.49 ACQUIRED ABSENCE OF OTHER SPECIFIED PART 11/03/2018 ELVA ÁLVAREZ AUDIENCE COORDINATOR Ot Z90.710 ACQUIRED ABSENCE OF BOTH CERVIX AND UTER 11/20/2018 SANDRA SALMERON AUDIENCE COORDINATOR Ot V76.12 OTH SCREEN MAMMO-MALIGN NEOPLASM OF [place] 11/20/2018 SHAHEEN SOSA AUDIENCE COORDINATOR Ot 433.10 CAROTID ARTERY OCCLUSION W O CEREBRAL IN 11/20/2018 SHAHEEN SOSA AUDIENCE COORDINATOR Ot 433.30 MULT BILTRAL ARTERY OCCLUSION WO CEREBRA 11/20/2018 SHAHEEN SOSA AUDIENCE COORDINATOR Ot 780.2 SYNCOPE AND COLLAPSE 11/20/2018 KETAN ADAMS MD Ot 786.50 CHEST PAIN NOS 11/20/2018 DAIN MONTANEZ Ot E78.2 MIXED HYPERLIPIDEMIA 11/20/2018 DAIN MONTANEZ Ot I25.10 ATHSCL HEART DISEASE OF [place] CORONARY 11/20/2018 DAIN MONTANEZ Ot R42 DIZZINESS AND GIDDINESS 11/20/2018 DAIN MONTANEZ Ot R55 SYNCOPE AND COLLAPSE 11/20/2018 JYOTSNA OROZCO, DAIN Roberts Ot E78.2 MIXED HYPERLIPIDEMIA 11/20/2018 OSWALDO ALTAMIRANO APRN Ot Z12.31 ENCNTR SCREEN MAMMOGRAM FOR MALIGNANT NE 11/20/2018 OSWALDO ALTAMIRANO APRN Ot N64.89 OTHER SPECIFIED DISORDERS OF BREAST 11/20/2018 JUDI RICHARDS MD Ot M54.2 CERVICALGIA 11/20/2018 JUDI RICHARDS MD Ot R51 HEADACHE 11/20/2018 JUDI RICHARDS MD Ot S09.90XA UNSPECIFIED INJURY OF HEAD, INITIAL ENCO 11/20/2018 JUDI RICHARDS MD Ot X58.XXXA EXPOSURE TO OTHER SPECIFIED FACTORS, INI 11/20/2018 JUDI RICHARDS MD Ot Y99.8 OTHER EXTERNAL CAUSE STATUS 11/20/2018 OSWALDO ALTAMIRANO APRN Ot N64.89 OTHER SPECIFIED DISORDERS OF BREAST 11/20/2018 OSWALDO ALTAMIRANO APRN Ot E11.42 TYPE 2 DIABETES MELLITUS WITH DIABETIC P 11/20/2018 OSWALDO ALTAMIRANO APRN Ot N28.9 DISORDER OF KIDNEY AND URETER, UNSPECIFI 11/20/2018 MARYLOU VAUGHN MD Ot D50.9 IRON DEFICIENCY ANEMIA, UNSPECIFIED 11/20/2018 MARYLOU VAUGHN MD Ot E55.9 VITAMIN D DEFICIENCY, UNSPECIFIED 11/20/2018 MARYLOU VAUGHN MD Ot I12.9 HYPERTENSIVE CHRONIC KIDNEY DISEASE W ST 11/20/2018 MARYLOU VAUGHN MD Ot N18.3 CHRONIC KIDNEY DISEASE, STAGE 3 (MODERAT 11/20/2018 MARYLOU VAUGHN MD Ot D50.9 IRON DEFICIENCY ANEMIA, UNSPECIFIED 11/20/2018 MARYLOU VAUGHN MD Ot E55.9 VITAMIN D DEFICIENCY, UNSPECIFIED 11/20/2018 MARYLOU VAUGHN MD Ot E87.2 ACIDOSIS 11/20/2018 MARYLOU VAUGHN MD Ot I12.9 HYPERTENSIVE CHRONIC KIDNEY DISEASE W ST 11/20/2018 MARYLOU VAUGHN MD Ot N18.3 CHRONIC KIDNEY DISEASE, STAGE 3 (MODERAT 11/20/2018 MARYLOU VAUGHN MD Ot R82.90 UNSPECIFIED ABNORMAL FINDINGS IN URINE 11/20/2018 ELVA ÁLVAREZ APRN Ot E11.40 TYPE 2 DIABETES MELLITUS WITH DIABETIC N 11/20/2018 ELVA ÁLVAREZ APRN Ot E78.00 PURE HYPERCHOLESTEROLEMIA, UNSPECIFIED 11/20/2018 ELVA ÁLVAREZ APRN Ot F31.9 BIPOLAR DISORDER, UNSPECIFIED 11/20/2018 ELVA ÁLVAREZ APRN Ot F41.9 ANXIETY DISORDER, UNSPECIFIED 11/20/2018 ELVA ÁLVAREZ APRN Ot K21.9 GASTRO-ESOPHAGEAL REFLUX DISEASE WITHOUT 11/20/2018 ELVA ÁLVAREZ APRN Ot M54.16 RADICULOPATHY, LUMBAR REGION 11/20/2018 ELVA ÁLVAREZ APRN Ot M54.5 LOW BACK PAIN 11/20/2018 ELVA ÁLVAREZ APRN Ot M54.6 PAIN IN THORACIC SPINE 11/20/2018 ELVA ÁLVAREZ APRN Ot Z79.4 SKILLED NURSING (CURRENT) USE OF INSULIN 11/20/2018 ELVA ÁLVAREZ APRN Ot Z79.51 SKILLED NURSING (CURRENT) USE OF INHALED STERO 11/20/2018 ELVA ÁLVAREZ APRN Ot Z79.82 SKILLED NURSING (CURRENT) USE OF ASPIRIN 11/20/2018 ELVA ÁLVAREZ APRN Ot Z82.49 FAMILY HX OF ISCHEM HEART DIS AND OTH DI 11/20/2018 ELVA ÁLVAREZ APRN Ot Z87.448 PERSONAL HISTORY OF OTHER DISEASES OF UR 11/20/2018 ELVA ÁLVAREZ APRN Ot Z87.891 PERSONAL HISTORY OF NICOTINE DEPENDENCE 11/20/2018 ELVA ÁLVAREZ APRN Ot Z88.5 ALLERGY STATUS TO NARCOTIC AGENT STATUS 11/20/2018 ELVA ÁLVAREZ APRN Ot Z90.49 ACQUIRED ABSENCE OF OTHER SPECIFIED PART 11/20/2018 ELVA ÁLVAREZ APRN Ot Z90.710 ACQUIRED ABSENCE OF BOTH CERVIX AND UTER 11/20/2018 ELVA ÁLVAREZ APRN Ot Z98.890 OTHER SPECIFIED POSTPROCEDURAL STATES 11/22/2018 ELVA ÁLVAREZ APRN Ot E11.40 TYPE 2 DIABETES MELLITUS WITH DIABETIC N 11/22/2018 ELVA ÁLVAREZ APRN Ot E78.00 PURE HYPERCHOLESTEROLEMIA, UNSPECIFIED 11/22/2018 ELVA ÁLVAREZ APRN Ot F31.9 BIPOLAR DISORDER, UNSPECIFIED 11/22/2018 ELVA ÁLVAREZ APRN Ot F41.9 ANXIETY DISORDER, UNSPECIFIED 11/22/2018 ELVA ÁLVAREZ APRN Ot K21.9 GASTRO-ESOPHAGEAL REFLUX DISEASE WITHOUT 11/22/2018 ELVA ÁLVAREZ APRN Ot M54.16 RADICULOPATHY, LUMBAR REGION 11/22/2018 ELVA ÁLVAREZ APRN Ot M54.5 LOW BACK PAIN 11/22/2018 ELVA ÁLVAREZ APRN Ot M54.6 PAIN IN THORACIC SPINE 11/22/2018 ELVA ÁLVAREZ APRN Ot Z79.4 SKILLED NURSING (CURRENT) USE OF INSULIN 11/22/2018 ELVA ÁLVARZE APRN Ot Z79.51 HIGH CLIMBER (CURRENT) USE OF INHALED STERO 11/22/2018 ELVA ÁLVAREZ APRN Ot Z79.82 HIGH CLIMBER (CURRENT) USE OF ASPIRIN 11/22/2018 ELVA ÁLVAREZ APRN Ot Z82.49 FAMILY HX OF ISCHEM HEART DIS AND OTH DI 11/22/2018 ELVA ÁLVAREZ APRN Ot Z87.448 PERSONAL HISTORY OF OTHER DISEASES OF UR 11/22/2018 ELVA ÁLVAREZ APRN Ot Z87.891 PERSONAL HISTORY OF NICOTINE DEPENDENCE 11/22/2018 ELVA ÁLVAREZ APRN Ot Z88.5 ALLERGY STATUS TO NARCOTIC AGENT STATUS 11/22/2018 ELVA ÁLVAREZ APRN Ot Z90.49 ACQUIRED ABSENCE OF OTHER SPECIFIED PART 11/22/2018 ELVA ÁLVAREZ APRN Ot Z90.710 ACQUIRED ABSENCE OF BOTH CERVIX AND UTER 11/22/2018 ELVA ÁLVAREZ APRN Ot Z98.890 OTHER SPECIFIED POSTPROCEDURAL STATES Procedures Code Description [place] [address] XRAY HUMERUS RIGHT 2 VIEWS 09/22/2012 77309 MRI EXTREMITY JOINT, UPPER RIGHT, W/O CONTRAST 09/27/2012 Orthopedi Mason Zarate 09/27/2012 02583 ROUTINE VENIPUNCTURE 12/21/2012 19507 A1C (IN-HOUSE) 12/21/2012 15524 LIVER PANEL (LFT) 12/21/2012 11072 ROUTINE VENIPUNCTURE 01/17/2013 17438 LIVER PANEL (LFT) 01/17/2013 52921 VITAMIN D 25-HYDROXY (D2,D3 , TOTAL) 01/17/2013 63561 TSH 01/17/2013 60185 UA LONG DIP 02/28/2013 Neurology Geeta Chadwick 02/28/2013 47833 A1C (IN-HOUSE) 03/30/2013 77820 MICRO ALBUMIN-IN HOUSE 03/30/2013 47362 STREP A (IN-HOUSE) 07/17/2013 PHYSICAL OCCUPATIONAL THERAPY, 07/27/2013 50330 SLEEP STUDY 07/28/2013 67680 A1C (IN-HOUSE) 08/03/2013 PODIATRY ROXY HOWE 08/24/2013 75862 A1C (IN-HOUSE) 11/13/2013 57668 MICRO ALBUMIN-IN HOUSE 11/13/2013 64258 UA LONG DIP 11/13/2013 98146 A1C (IN-HOUSE) 03/05/2014 68521 XRAY ANKLE R COMP MIN, 3 VIEWS 03/19/2014 PODIATRY ROXY HOWE 03/19/2014 13775 ROUTINE VENIPUNCTURE 06/18/2014 29598 A1C (IN-HOUSE) 06/18/2014 36285 CMP 06/18/2014 19435 LIPID PANEL 06/18/2014 61877 TSH 06/18/2014 58100 CBC 06/18/2014 Otolaryng Nay Rowan 08/15/2014 52566 A1C (IN-HOUSE) 09/17/2014 66703 INFLUENZA A & B (IN-HOUSE) 11/03/2014 90607 A1C (IN-HOUSE) 12/24/2014 44941 HEMOGLOBIN (IN-HOUSE) 12/24/2014 20830 MICRO ALBUMIN-IN HOUSE 12/24/2014 77327 MAMMOGRAM, SCREENING 01/29/2015 GENERAL Linda Gonzales 01/29/2015 30799 HOLTER MONITOR (OUTPATIENT) 02/07/2015 01222 US CAROTID DOPPLER 02/07/2015 Results Test Result [...] LDL Cholesterol Calc 81 mg/dL 0-99 Thyroid Cassia Profile - 05/13/17 09:29 TSH 2.410 uIU/mL [...] urinalysis with reflex to culture NO NRG Complete urinalysis with reflex to culture - 11/20/18 16:14 Urine color determination YELLOW NRG Urine clarity determination CLEAR NRG Urine pH measurement by test strip 5 5-9 Specific gravity of urine by test strip 1.020 1.016- 1.022 Urine protein assay by test strip, semi-quantitative 1+ NEGATIVE Urine glucose detection by automated test [...] count by microscopy (number/high power field ) RARE NRG Bacteria detection in urine sediment by light microscopy NEGATIVE NRG Squamous epithelial cells detection in urine sediment by light microscopy 5-10 NRG Crystals detection in urine sediment by light microscopy NONE NRG Casts detection in urine sediment by light microscopy NONE NRG Mucus detection in urine sediment by light microscopy NEGATIVE NRG Complete urinalysis with reflex to culture NO NRG Complete blood count (CBC) with automated white blood cell (WBC) differential - 01/16/19 13:41 Blood leukocytes automated count (number/volume) 7.3 10*3/uL 4.3-11.0 Blood erythrocytes automated count (number/volume) 4.28 10*6/uL 4.35-5.85 Venous blood hemoglobin measurement (mass/volume) [...] 130-400 Automated blood platelet mean volume measurement 10.2 [foz_us] 7.4-10.4 Automated blood neutrophils/100 leukocytes 56 % 42-75 Automated blood lymphocytes/100 leukocytes 30 % 12-44 Blood monocytes/100 leukocytes 7 % 0-12 Automated blood eosinophils/100 leukocytes 7 % 0-10 Automated blood basophils/100 leukocytes 1 % 0-10 Blood neutrophils automated count (number/volume) 4.1 10*3 1.8-7.8 Blood lymphocytes automated count (number/volume) 2.2 10*3 1.0-4.0 Blood monocytes automated count (number/volume) 0.5 10*3 0.0-1.0 Automated eosinophil count 0.5 10*3/uL 0.0-0.3 Automated blood basophil count (count/volume) 0.1 10*3/uL 0.0-0.1 Serum or plasma renal function panel (Na, K, Cl, CO2, BUN, Cr, glucose,Ca, phos , alb) - 01/16/19 13:41 Serum or plasma sodium measurement (moles/volume) 142 mmol/L 135-145 Serum or plasma potassium measurement (moles/volume) 4.0 mmol/L 3.6-5.0 Serum or plasma chloride measurement (moles/volume) 106 mmol/L 98-107 Carbon dioxide 25 mmol/L 21-32 [...] NRG Serum or plasma glucose measurement (mass/volume) 204 mg/dL 70-105 Serum or plasma calcium measurement (mass/volume) 9.5 mg/dL 8.5-10.1 Serum or plasma albumin measurement (mass/volume) 4.1 g/dL 3.2-4.5 Serum or plasma phosphate measurement (mass/volume) 3.5 mg/dL 2.3-4.7 Serum or plasma uric acid measurement (mass/volume) - 01/16/19 13:41 Serum or plasma uric acid measurement (mass/volume) 7.0 mg/dL 2.6-7.2 Hemoglobin A1c - 01/16/19 13:41 Blood hemoglobin A1C measurement (mass/volume) 11.8 % 4.0 -5.6 MEAN BLOOD GLUCOSE 292 % <=126 Serum iron and total iron binding capacity panel - 01/16/19 13:41 Serum or plasma iron measurement (mass/volume) 69 % 35- 180 Total iron binding capacity and transferrin saturation measurement 22 % 15-50 Iron binding capacity [mass/volume] in serum or plasma 315 % 280-380 UIBC (unsaturated iron binding capacity) 246 % 55-450 Serum or plasma ferritin measurement (mass/volume) 54.4 % 20.0-177.0 Serum or plasma intact pararthyroid hormone measurement (mass/volume) - 13:41 Serum or plasma intact parathyroid hormone measurement (mass/volume) 108.9 pg/mL 9.0-77.0 Bio-intact parathyroid hormone (PTH) measurement with calcium 9.4 % 8.5-10.5 VITAMIN D 25-HYDROXY - 01/16/19 13:41 VITAMIN D 25-HYDROXY (TOTAL) 18.9 % 30.0-100.0 Complete urinalysis with reflex to culture - 01/16/19 13:50 Urine color determination YELLOW NRG Urine clarity determination SLIGHTLY CLOUDY NRG Urine pH measurement by test strip 6 5-9 Specific gravity of urine by test strip 1.010 1.016- 1.022 Urine protein assay by test strip, semi-quantitative 1+ NEGATIVE Urine glucose detection by automated test [...] detection in urine sediment by light microscopy FEW NRG Squamous epithelial cells detection in urine sediment by light microscopy 25-50 NRG Crystals detection in urine sediment by light microscopy NONE NRG Casts detection in urine sediment by light microscopy NONE NRG Mucus detection in urine sediment by light microscopy NEGATIVE NRG Complete urinalysis with reflex to culture YES NRG Yeast detection in urine sediment by light microscopy NA NRG Urine protein/creatinine mass ratio - 01/16/19 13:50 Urine protein measurement (mass/volume) 7 mg/dL 6-12 Urine creatinine measurement (mass/volume) 67 mg/dL 30- 125 Urine protein/creatinine mass ratio 0.10 NRG Bacterial urine culture - 01/16/19 13:50 Bacterial urine culture 3 OR MORE NRG COLONY COUNT >100,000/ML NRG FTX;REPORTABLE (GRAM POSITIVE) SUGGESTING PROBABLE NRG FREE TEXT ENTRY 2 COLLECTION CONTAMINATION WITH SKIN STEVE NRG FREE TEXT ENTRY 3 NO SUSCEPTIBILITY PERFORMED NRG Encounters ACCT No. Visit Date/Time Discharge Status Pt. Type Provider Facility Loc./Unit Complaint [id number] 02/19/2015 08:29:00 02/19/2015 23:59:59 [facility] Outpatient VALERIE PATINO DO [id number] 02/07/2015 13:27:00 02/07/2015 23:59:59 CLS Outpatient VALERIE PATINO DO [id number] 01/29/2015 08:50:00 01/29/2015 23:59:59 [facility] Outpatient VALERIE PATINO DO [id number] 12/24/2014 10:30:00 12/24/2014 23:59:59 CLS Outpatient PATINO DO VALERIE Roberts [id number] 11/03/2014 09:50:00 11/03/2014 23:59:59 CLS Outpatient HELLWIG AUDIENCE COORDINATORSHAHEEN Rinaldi [id number] 11/03/2014 09:50:00 11/03/2014 23:59:59 CLS Outpatient HELLWIG AUDIENCE COORDINATORSHAHEEN Rinaldi [id number] 09/17/2014 09:53:00 09/17/2014 23:59:59 CLS Outpatient PATINO DO VALERIE Roberts [id number] 08/15/2014 13:50:00 08/15/2014 23:59:59 CLS Outpatient HELLWIG AUDIENCE COORDINATORSHAHEEN [id number] 07/27/2014 09:28:00 07/27/2014 23:59:59 CLS Outpatient SHYAM DPMROXY [id number] 06/18/2014 09:14:00 06/18/2014 23:59:59 CLS Outpatient PATINO DO VALERIE Roberts [id number] 06/18/2014 09:14:00 06/18/2014 23:59:59 CLS Outpatient HELLWIG AUDIENCE COORDINATORSHAHEEN Rinaldi [id number] 05/04/2014 09:29:00 05/04/2014 23:59:59 CLS Outpatient PATINO DO VALERIE Roberts [id number] 04/12/2014 12:55:00 04/12/2014 23:59:59 CLS Outpatient NADIA DDSTILA [id number] 03/19/2014 09:29:00 03/19/2014 23:59:59 CLS Outpatient HELLWIG SHAHEEN LOAIZA [id number] 03/05/2014 10:45:00 03/05/2014 23:59:59 CLS Outpatient PATINO DOVALERIE [id number] 01/16/2014 08:24:00 01/16/2014 23:59:59 CLS Outpatient PATINO DOVALERIE [id number] 12/12/2013 08:38:00 12/12/2013 23:59:59 CLS Outpatient FELICIANO AUDIENCE COORDINATORNAY [id number] 12/04/2013 10:09:00 12/04/2013 23:59:59 CLS Outpatient PATINO DOVALERIE [id number] 11/13/2013 08:28:00 11/13/2013 23:59:59 CLS Outpatient PATINO DOVALERIE [id number] 09/28/2013 12:29:00 09/28/2013 23:59:59 CLS Outpatient PATINO DOVALERIE [id number] 09/08/2013 08:49:00 09/08/2013 23:59:59 CLS Outpatient PATINO DOVALERIE [id number] 09/08/2013 08:49:00 09/08/2013 23:59:59 CLS Outpatient PATINO DOVALERIE [id number] 08/24/2013 08:17:00 08/24/2013 23:59:59 CLS Outpatient PATINO DOVALERIE [id number] 08/03/2013 08:22:00 08/03/2013 23:59:59 CLS Outpatient PATINO DOVALERIE [id number] 07/27/2013 14:12:00 07/27/2013 23:59:59 CLS Outpatient PATINO DOVALERIE [id number] 07/17/2013 17:28:00 07/17/2013 23:59:59 CLS Outpatient VALERIE PATINO DO [id number] 02/09/2013 12:25:00 02/09/2013 23:59:59 CLS Outpatient PATINO DOVALERIE [id number] 01/17/2013 08:50:00 01/17/2013 23:59:59 CLS Outpatient SHAMIKA GOLDBERG MD [id number] 12/28/2012 15:58:00 12/28/2012 23:59:59 CLS Outpatient AMADEO DONIS DO [id number] 12/21/2012 10:41:00 12/21/2012 23:59:59 CLS Outpatient [id number] 12/21/2012 10:41:00 12/21/2012 23:59:59 CLS Outpatient SHAMIKA GOLDBERG MD [id number] 12/13/2012 11:34:00 12/13/2012 23:59:59 CLS Outpatient [id number] 12/01/2012 12:47:00 12/01/2012 23:59:59 CLS Outpatient PATINO VALERIE OCONNOR Alejandra [id number] 11/23/2012 14:07:00 11/23/2012 23:59:59 CLS Outpatient [id number] 10/20/2012 09:57:00 10/20/2012 23:59:59 [place] [id number] 08/25/2012 09:51:00 08/25/2012 23:59:59 CLS Outpatient SHAMIKA GOLDBERG MD [id number] 07/17/2013 17:28:00 Document Registration [id number] 03/30/2013 15:06:00 Document Registration [id number] 03/30/2013 15:06:00 Document Registration [id number] 03/23/2013 08:28:00 Document Registration [id number] 03/09/2013 11:38:00 Document Registration [id number] 02/28/2013 15:43:00 Document Registration [id number] 02/28/2013 15:43:00 Document Registration [id number] 01/16/2019 13:30:00 01/16/2019 23:59:59 CLS Outpatient MARYLOU VAUGHN MD [facility] LAB N18.3 [id number] 11/20/2018 15:44:00 11/20/2018 17:04:00 DIS Emergency ELVA ÁLVAREZ APRN [facility] ER BACK PAIN [id number] 11/01/2018 18:29:00 11/01/2018 20:48:00 DIS Emergency ELVA ÁLVAREZ AUDIENCE COORDINATOR [facility] ER VOMITTING [id number] 10/19/2018 10:30:00 10/19/2018 14:35:00 DIS Emergency GEOVANI LUTZ [facility] ER ABD PAIN [id number] 08/23/2018 09:20:00 08/23/2018 23:59:59 CLS Outpatient MARYLOU VAUGHN MD [facility] LAB CHRONIC KIDNEY DISEASE, HYPERTENSION,IRON DEFIENCY [id number] 04/21/2018 21:40:00 04/22/2018 00:25:00 DIS Emergency SANDRA MC, SHAHID Aldridge [facility] ER CP/SOB [id number] 03/29/2018 08:43:00 03/29/2018 23:59:59 CLS Outpatient MARYLOU VAUGHN MD [facility] LAB I10,N18.3,E55.9 [id number] 10/27/2017 11:46:00 10/27/2017 23:59:59 CLS Outpatient OSWALDO ALTAMIRANO AUDIENCE COORDINATOR [facility] RAD E11.42 TYPE 2 DIABETES [id number] 09/13/2017 12:52:00 09/13/2017 23:59:59 CLS Outpatient OSWALDO ALTAMIRANO AUDIENCE COORDINATOR [facility] RAD ABN MAMMO [id number] 08/05/2017 13:30:00 08/05/2017 23:59:59 CLS Preadmit MARYLOU VAUGHN MD [facility] RAD CKD STAGE 2 N18.2 [id number] 05/28/2017 14:29:00 05/28/2017 23:59:59 CLS Outpatient JUDI RICHARDS MD [facility] RAD M54.2 S09.90XA R51 [id number] 03/08/2017 13:44:00 03/08/2017 23:59:59 CLS Outpatient OSWALDO ALTAMIRANO APRN [facility] RAD ABNORMAL MAMMO [id number] 02/10/2017 08:34:00 02/10/2017 23:59:59 CLS Outpatient OSWALDO ALTAMIRANO APRN [facility] RAD SCREENING BREAST CA [id number] 01/26/2017 09:17:00 01/26/2017 11:45:00 DIS Outpatient LINDA MANSFIELD DO [facility] ENDO EPIGASTRIC PAIN [id number] 01/21/2017 06:55:00 01/21/2017 14:45:00 DIS Outpatient LINDA MANSFIELD DO [facility] PREOP EPIGASTRIC PAIN [id number] 12/22/2016 18:45:00 12/23/2016 18:25:00 DIS Inpatient JUDI RICHARDS MD [facility] 4TH ACUTE PANCREATITIS,CHEST PAIN [id number] 11/03/2016 11:43:00 11/03/2016 23:59:59 CLS Outpatient DAIN MONTANEZ [facility] LAB E78.2 [id number] 08/12/2016 08:05:00 08/12/2016 10:35:00 DIS Outpatient LINDA MANSFIELD DO [facility] SDC CHANGE IN BOWEL HABITS [id number] 08/11/2016 09:52:00 08/11/2016 14:50:00 DIS Outpatient LINDA MANSFIELD DO [facility] SDC CHANGE IN BOWEL HABITS [id number] 08/06/2016 12:42:00 08/06/2016 15:15:00 DIS Outpatient LINDA MANSFIELD DO [facility] PREOP CHANGE IN BOWEL HABITS [id number] 07/14/2016 10:35:00 07/14/2016 23:59:59 CLS Outpatient DAIN MONTANEZ [facility] LAB CAD,DIZZINESS ,HLP,SYNCOPE [id number] 06/13/2016 22:41:00 06/14/2016 02:00:00 DIS Emergency ROHIT CAMPA DO [facility] ER LOC/NECK PAIN/HEADACHE [id number] 11/26/2015 15:58:00 11/26/2015 16:51:00 DIS Emergency ELVA ÁLVAREZ APRN [facility] ER L LEG PAIN [id number] 10/18/2015 19:37:00 10/18/2015 21:56:00 DIS Emergency DAVID NATHAN MD [facility] ER CP [id number] 08/26/2015 20:54:00 08/26/2015 23:00:00 DIS Emergency ELVA ÁLVAREZ APRN [facility] ER ABN BLOOD SUGAR [id number] 05/22/2015 10:54:00 05/22/2015 18:48:00 DIS Outpatient KETAN ADAMS MD [facility] CATH ABN STRESS, CP CAD, HLP, DM [id number] 04/23/2015 11:20:00 04/23/2015 23:59:59 CLS Outpatient KETAN ADAMS MD [facility] CARD CHEST PAIN [id number] 04/21/2015 20:59:00 04/22/2015 13:30:00 DIS Inpatient AMBER HERNANDEZ MD [facility] CSD CP,RENAL INSUFFICIENCY, HYPERGLYCEMIA [id number] 04/14/2015 22:54:00 04/15/2015 00:06:00 DIS Emergency DAVID NATHAN MD [facility] ER BACK PAIN [id number] 02/18/2015 13:18:00 02/18/2015 23:59:59 CLS Outpatient SHAHEEN SOSA AUDIENCE COORDINATOR [facility] CARD SYNCOPE [id number] 02/12/2015 10:37:00 02/12/2015 23:59:59 CLS Outpatient SHAHEEN SOSA AUDIENCE COORDINATOR [facility] RAD SYNCOPE [id number] 02/04/2015 16:54:00 02/05/2015 12:45:00 DIS Inpatient AMBER HERNANDEZ MD [facility] SURGICAL SYNCOPE;UTI [id number] 01/31/2015 13:02:00 01/31/2015 23:59:59 CLS Outpatient FAVIOLASANDRA AUDIENCE COORDINATOR [facility] RAD SCREENING [id number] 11/12/2014 23:16:00 11/13/2014 00:23:00 DIS Emergency DAVID NATHAN MD [facility] ER FLU,HIGH BLOOD SUGAR [id number] 07/15/2014 13:56:00 07/15/2014 17:53:00 DIS Emergency BABATUNDE MORRISSEY [facility] ER NUMBNESS IN FACE LUMPS ON SIDE OF HEAD AND DOWN NE [id number] 06/15/2014 12:38:00 06/15/2014 15:20:00 DIS Emergency ELVA ÁLVAREZ AUDIENCE COORDINATOR [facility] ER FALL/LEFT FOOT INJURY [id number] 04/08/2014 19:23:00 04/08/2014 19:52:00 DIS Emergency SHAHID FLORES MD [facility] ER MULTIPLE COMPLAINTS [id number] 12/17/2013 18:06:00 12/17/2013 19:56:00 DIS Emergency POP TO MD [facility] ER FALL, MULTIPLE INJ [id number] 11/01/2013 01:09:00 11/01/2013 02:59:00 DIS Emergency DAVID NATHAN MD [facility] ER HG BLOOD SUGAR [id number] 01/19/2019 21:07:00 ACT Emergency NABIL MC, JANET Lopez [facility] ER BURNING PAIN WHILE URINATING,HIGH BLOOD SUGAR [id number] 02/12/2015 10:38:00 Document Registration [id number] 02/12/2015 10:38:00 Document Registration [id number] 02/12/2015 10:37:00 Document Registration [id number] 02/12/2015 10:37:00 Document Registration [id number] 10/10/2012 12:34:00 Document Registration [id number] 09/22/2012 11:06:00 Document Registration [id number] 09/01/2012 05:50:00 Document Registration [id number] 07/05/2012 04:51:00 Document Registration [id number] 05/01/2012 10:30:00 Document Registration [id number] 04/12/2012 12:24:00 Document Registration [id number] 04/06/2012 14:43:00 Document Registration [id number] 04/04/2012 22:25:00 Document Registration [id number] 01/30/2012 05:44:00 Document Registration [id number] 01/10/2012 04:00:00 Document Registration [id number] 11/19/2011 20:23:00 Document Registration [id number] 11/06/2011 00:38:00 Document Registration [id number] 08/26/2011 10:21:00 Document Registration [id number] 08/22/2011 02:40:00 Document Registration [id number] 08/17/2011 06:47:00 Document Registration [id number] 05/14/2011 10:50:00 Document Registration [id number] 05/12/2011 20:49:00 Document Registration [id number] 04/19/2011 00:05:00 Document Registration [id number] 04/06/2011 00:36:00 Document Registration [id number] 01/23/2011 01:40:00 Document Registration [id number] 04/18/2010 02:16:00 Document Registration [id number] 10/22/2009 15:22:00 Document Registration [id number] 10/01/2009 09:51:00 Document Registration [id number] 07/22/2017 16:08:00 Document Registration [id number] 05/22/2015 10:55:05 ACT Document Registration [id number] 05/14/2017 13:05:00 Document Registration [id number] 01/18/2019 13:40:00 ACT Outpatient CHUY CERDA MOCCASIN [facility] [id number] 06/17/2018 13:20:00 Document Registration [id number] 03/18/2018 08:00:00 Document Registration [id number] 11/25/2017 08:40:00 Document Registration
[2019-01-19] MEDS ORDERED: NS IV 1000 ML 1,000 ML IV SCH (21:52)
[2019-01-19] MEDS ORDERED: NS IV 500 ML 500 ML IV ONE (21:52)
--- NOTE | 2019-01-19 21:59 | ED General ---
General Chief Complaint: Glucose Problems Stated Complaint: BURNING PAIN WHILE URINATING,HIGH BLOOD SUGAR Nursing Triage Note: PT STATES HER BLOOD SUGARS HAVE BEEN UNCONTROLLABLE, EVEN WITH HER NOVALOG AND LEVEMIR. REPORTS HOME BLOOD SUGARS OVER 600MG/DL Nursing Sepsis Screen: No Definite Risk Source of Information: Patient, Spouse Exam Limitations: No Limitations History of Present Illness Date Seen by Provider: Jan 19, 2019 Time Seen by Provider: 21:45 Initial Comments The patient presents to ER by private conveyance with her significant other and chief complaint of malaise, nausea, mild right upper quadrant abdominal discomfort 1 out of 10 pain. She's had no fevers vomiting or diarrhea. Bowels of been mildly on the constipated side recently. She's had her blood sugar tonight was reading high. She said last week she had a couple days where it read over 600 and came up to ER and had to get checked out. She's recently had pancreatitis in November so she had to stop her Victoza and go back on Levemir 50 units twice a day and Humalog 23 units 3 times a day. She's been taking it as prescribed. She had macaroni and cheese for dinner tonight. She says that her last A1c was over 10% which is up from 9.1 before. She started taking metformin again today. She has been working up outpatient with [facility] to try and get her blood sugars under control although she does not feel like she's been very successful. She does not drink alcohol. Allergies and Home Medications Allergies Coded Allergies: codeine (Verified Allergy, Unknown, HEART PALPATATION, 02/04/15) Home Medications Albuterol 17 Gm Aerosol, 2 PUFF IH Q4H PRN for SHORTNESS OF BREATH, (Reported) Aspirin 81 Mg Tabec, 81 MG PO Q48H, (Reported) Atorvastatin Calcium 40 Mg Tablet, 40 MG PO HS, (Reported) Cetirizine HCl 10 Mg Tablet, 10 MG PO HS, (Reported) Duloxetine HCl 60 Mg Capsule.dr, 60 MG PO HS, (Reported) Fluticasone Propionate 16 Gm [place].susp, 1 SPRAY NA DAILY PRN for ALLERGIES, ( Reported) Hydrocodone Bit/Acetaminophen 1 Tab Tab, 1-2 EACH PO Q6H PRN for PAIN-MODERATE Prescribed by: GEOVANI LUTZ on 10/19/18 1357 Insulin Determir 1,000 Units/10 Ml Soln, 65 UNITS SQ DAILY, (Reported) TAKE IN AM Insulin Determir 1,000 Units/10 Ml Soln, 70 UNITS SQ HS, (Reported) TAKE AT BEDTIME Liraglutide 0.6 Mg/0.1 Ml Pen.injctr, 1.8 MG SQ HS, (Reported) Methocarbamol 750 Mg Tablet, 750 MG PO Q4H PRN for PAIN-MODERATE TO SEVERE Prescribed by: ELVA ÁLVAREZ on 11/20/18 1655 Multivitamin 1 Each Tab.chew, 1 EACH PO HS, (Reported) Ondansetron HCl 4 Mg Tab, 4 MG PO Q4H PRN for NAUSEA/VOMITING-1ST LINE Prescribed by: GEOVANI LUTZ on 10/19/18 1357 Pantoprazole Sodium 40 Mg Tablet.dr, 40 MG PO DAILY Prescribed by: LINDA MANSFIELD on 01/26/17 1053 Promethazine HCl 25 Mg Tablet, 25 MG PO Q6H PRN for NAUSEA/VOMITING Prescribed by: ELVA ÁLVAREZ on 11/01/18 1948 Sucralfate 1 Gm Tablet, 1 GM PO ACHS Prescribed by: LINDA MANSFIELD on 01/26/17 1053 [Vit B-12 Gummies] , 2 TAB PO HS, (Reported) [Vitamin C] , 1 TAB PO HS, (Reported) Patient Home Medication List Home Medication List Reviewed: Yes Review of Systems Review of Systems Constitutional: No chills, No fever EENTM: No ear discharge, No ear pain Respiratory: No cough, No short of breath Cardiovascular: No chest pain, No edema, No palpitations Gastrointestinal: No abdominal pain; constipation; No diarrhea; nausea; No vomiting Genitourinary: No decreased output, No discharge, No dysuria; frequency; No hematuria Musculoskeletal: No back pain, No joint pain Skin: No pruritus, No rash Past Urgifdk-Yfgyfq-Slwvrj Hx Patient Social History Alcohol Use: Denies Use Recreational Drug Use: No Smoking Status: Former Smoker Type Used: Cigarettes Former Smoker, Quit: Aug 12, 1992 2nd Hand Smoke Exposure: No Recent Foreign Travel: No Contact w/Someone Who Travel: No Recent Infectious Disease Expo: No Recent Hopitalizations: No Immunizations Up To Date Tetanus Booster (TDap): Less than 5yrs Date of Pneumonia Vaccine: Nov 21, 2016 Date of Influenza Vaccine: Aug 30, 2016 Seasonal Allergies Seasonal Allergies: No Past Medical History Surgeries: Yes (back x2, ) Abdominal, Appendectomy, Ear Surgery, Gallbladder, Hysterectomy, Orthopedic Respiratory: No Currently Using CPAP: No Currently Using BIPAP: No Cardiac: Yes High Cholesterol, Syncope Neurological: Yes Neuropathy : No 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 Disorders: No Female 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 Disorders: 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, Ovarian Cyst LAB ASST History: Menopausal Sexually Transmitted Disease: No HIV/AIDS: No Genitourinary: No Renal Failure Gastrointestinal: No Gastroesophageal Reflux Musculoskeletal: Yes Arthritis, Chronic Back Pain Endocrine: Yes Diabetes, Insulin dep Cataract Cancer: No Psychosocial: Yes Anxiety, Bipolar, Depression Integumentary: Yes (SORES ON ARMS) Blood Disorders: No Family Medical History FH: diabetes mellitus FH: heart disease No Pertinent Family Hx, Heart Disease Physical Exam Vital Signs Vital Signs - First Documented 01/19/19 21:25 Temp 98.0 Pulse 72 Resp 20 B/P (MAP) 128/64 (85) Pulse Ox 100 O2 Delivery Room Air Capillary Refill : Less Than 3 Seconds Height, Weight, BMI Height: 5'7.00" Weight: 198lbs. 0oz. 89.062593ul; 29.3 BMI Method:Stated General Appearance: No Apparent Distress, WD/WN Eyes: Bilateral Eye Normal Inspection, Bilateral Eye PERRL, Bilateral Eye EOMI HEENT: PERRL/EOMI, Pharynx Normal; No Moist Mucous Membranes Neck: Full Range of Motion, Normal Inspection, Non Tender Respiratory: Lungs Clear, Normal Breath Sounds, No Accessory Muscle Use, No Respiratory Distress Cardiovascular: Regular Rate, Rhythm, Normal Peripheral Pulses Gastrointestinal: Normal Bowel Sounds, Non Tender, Soft, Other (No mesenteric signs) Extremity: Normal Capillary Refill, Normal Inspection, Non Tender, No Calf Tenderness, No Pedal Edema Neurologic/Psychiatric: Alert, Oriented x3, No Motor/Sensory Deficits, Depressed Affect Skin: Normal Color, Warm/Dry Progress/Results/Core Measures Suspected Sepsis Recent Fever Within 48 Hours: No Infection Criteria Present: None New/Unexplained Altered Menta: No Sepsis Screen: No Definite Risk SIRS Temperature:98.0 Pulse: 72 Respiratory Rate: 20 Laboratory Tests 01/19/19 21:40: White Blood Count 8.3 Blood Pressure 128 /64 Mean: 85 Laboratory Tests 01/19/19 21:40: Creatinine 1.48H, Platelet Count 189, Total Bilirubin 0.4 Results/Orders Lab Results Laboratory Tests Test 3/14/19 21:26 01/19/19 21:32 01/19/19 21:40 Range/Units Urine Color YELLOW Urine Clarity CLEAR Urine pH 6 5-9 Urine Specific [place] 1.005 L 1.016-1.022 Urine Protein NEGATIVE NEGATIVE Urine Glucose (UA) 4+ H NEGATIVE Urine Ketones NEGATIVE NEGATIVE Urine Nitrite NEGATIVE NEGATIVE Urine Bilirubin NEGATIVE NEGATIVE Urine Urobilinogen NORMAL NORMAL MG/DL Urine Leukocyte Esterase NEGATIVE NEGATIVE Urine RBC (Auto) NEGATIVE NEGATIVE Urine RBC NONE /HPF Urine WBC RARE /HPF Urine Squamous Epithelial Cells 2-5 /HPF Urine Crystals NONE /LPF Urine Bacteria NEGATIVE /HPF Urine Casts NONE /LPF Urine Mucus NEGATIVE /LPF Urine Culture Indicated NO Glucometer 563 *H 70-110 MG/DL White Blood Count 8.3 4.3-11.0 10^3/uL Red Blood Count 4.09 L 4.35-5.85 10^6/uL Hemoglobin 13.2 11.5-16.0 G/DL Hematocrit 39 35-52 % Mean Corpuscular Volume 94 80-99 FL Mean Corpuscular Hemoglobin 32 25-34 PG Mean Corpuscular Hemoglobin Concent 34 32-36 G/DL Red Cell Distribution Width 12.6 10.0-14.5 % Platelet Count 189 130-400 10^3/uL Mean Platelet Volume 10.1 7.4-10.4 FL Neutrophils (%) (Auto) 64 42-75 % Lymphocytes (%) (Auto) 24 12-44 % Monocytes (%) (Auto) 7 0-12 % Eosinophils (%) (Auto) 5 0-10 % Basophils (%) (Auto) 1 0-10 % Neutrophils # (Auto) 5.3 1.8-7.8 X 10^3 Lymphocytes # (Auto) 2.0 1.0-4.0 X 10^3 Monocytes # (Auto) 0.6 0.0-1.0 X 10^3 Eosinophils # (Auto) 0.5 H 0.0-0.3 10^3/uL Basophils # (Auto) 0.1 0.0-0.1 10^3/uL Sodium Level 132 L 135-145 MMOL/L Potassium Level 3.7 3.6-5.0 MMOL/L Chloride Level 97 L 98-107 MMOL/L Carbon Dioxide Level 23 21-32 MMOL/L Anion Gap 12 5-14 MMOL/L Blood Urea Nitrogen 16 7-18 MG/DL Creatinine 1.48 H 0.60-1.30 MG/DL Estimat Glomerular Filtration Rate 36 BUN/Creatinine Ratio 11 Glucose Level 633 *H 70-105 MG/DL Calcium Level 9.1 8.5-10.1 MG/DL Corrected Calcium 9.3 8.5-10.1 MG/DL Magnesium Level 2.0 1.8-2.4 MG/DL Total Bilirubin 0.4 0.1-1.0 MG/DL Aspartate Amino Transf (AST/SGOT) 33 5-34 U/L Alanine Aminotransferase (ALT/SGPT) 37 0-55 U/L Alkaline Phosphatase 163 H 40-136 U/L Total Protein 7.5 6.4-8.2 GM/DL Albumin 3.8 3.2-4.5 GM/DL Lipase 59 8-78 U/L My Orders Orders - JANET FERRER Cbc With Automated Diff (01/19/19 21:52) Comprehensive Metabolic Panel (01/19/19 21:52) Lipase (01/19/19 21:52) Magnesium (01/19/19 21:52) Ua Culture If Indicated (01/19/19 21:52) Saline Lock/Iv-Start (01/19/19 21:52) Ns Iv 500 Ml (Sodium Chloride 0.9%) (01/19/19 21:52) Ns Iv 1000 Ml (Sodium Chloride 0.9%) (01/19/19 21:52) Ondansetron Injection (Zofran Injectio (01/19/19 22:00) Acetaminophen Tablet (Tylenol Tablet) (01/19/19 22:00) Insulin Aspart (Novolog) (Novolog (Charg (01/19/19 22:45) Accucheck Stat ONCE (01/19/19 23:25) Medications Given in ED Current Medications Medications Dose Ordered Sig/Josh Route Start Time Stop Time Status Last Admin Dose Admin Acetaminophen 1,000 mg ONCE ONCE PO 01/19/19 22:00 01/19/19 22:01 DC 01/19/19 22:03 1,000 MG Insulin Aspart 35 unit ONCE ONCE SC 01/19/19 22:45 01/19/19 22:46 DC 01/19/19 22:54 35 UNIT Ondansetron HCl 4 mg ONCE ONCE IVP 01/19/19 22:00 01/19/19 22:01 DC 01/19/19 22:02 4 MG Sodium Chloride 500 ml @ 0 mls/hr Q0M ONCE IV 01/19/19 21:52 01/19/19 21:53 DC 01/19/19 22:50 500 MLS/HR Vital Signs/I&O 01/19/19 21:25 Temp 98.0 Pulse 72 Resp 20 B/P (MAP) 128/64 (85) Pulse Ox 100 O2 Delivery Room Air Capillary Refill : Less Than 3 Seconds Blood Pressure Mean: 85 Point of Care Testing Finger Stick Blood Glucose: 563 Blood Glucose Action Taken: Physician notified Progress Note #1: Time: 21:57 Progress Note 1500 cc of normal saline, initial blood sugar was over 500. We'll see what her potassium is prior to giving any insulin. Check magnesium and labs as well as urinalysis looking for ketones. She has no history of DKA. Could have HHS. For her mild discomfort in her abdomen which is nontender, nonsurgical we have offered some Tylenol. She has made it clear she does not want any opiates for pain as they make her feel very bad. We'll give her some Zofran since she's endorsed some mild nausea but she says she is not going to throw up this moment. We'll check a lipase. 2017 her triglycerides were 95, normal. Progress Note #2: Time: 22:41 Progress Note The patient does not have acidemia, and anion gap or hyperosmolality with a calculated osmolality of 299. She does have hyperglycemia and to that and were going to give her her usual dose of Humalog +10 units for a total of 35 units of NovoLog and recheck in 30 minutes. Progress Note #3: Time: 23:26 Progress Note 30 minutes after initial insulin dose her blood sugar dropped to 452. Recurrent encourage her to up her Humalog to 35 tid and continue her Levemir. 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 Decision time for Depature: 23:20 Referrals: [facility] (PCP) Primary Care Physician CHUY CERDA APRN (Family) Primary Care Physician Patient Instructions: Diabetes Type 2 (DC) Add. Discharge Instructions: Increase your Humalog to 35 units 3 times a day with meals and continue your Levemir at the same dose. Follow-up next week with your primary care provider. All discharge instructions reviewed with patient and/or family. Voiced understanding. JANET FERRER Jan 19, 2019 21:59
[2019-01-19 22:00] LABS: BASOPHILS # (AUTO) 0.1 10^3/uL (0.0-0.1); BASOPHILS % (AUTO) 1 % (0-10); EOSINOPHILS # (AUTO) 0.5 10^3/uL (0.0-0.3); EOSINOPHILS % (AUTO) 5 % (0-10); HEMATOCRIT 39 % (35-52); HEMOGLOBIN 13.2 G/DL (11.5-16.0); LYMPHOCYTES % (AUTO) 24 % (12-44); MEAN CORPUSCULAR HEMOGLOBIN 32 PG (25-34); MEAN CORPUSCULAR HGB CONC 34 G/DL (32-36); MEAN CORPUSCULAR VOLUME 94 FL (80-99); MEAN PLATELET VOLUME 10.1 FL (7.4-10.4); MONOCYTES # (AUTO) 0.6 X 10^3 (0.0-1.0); MONOCYTES % (AUTO) 7 % (0-12); NEUTROPHILS # (AUTO) 5.3 X 10^3 (1.8-7.8); NEUTROPHILS % (AUTO) 64 % (42-75); PLATELET COUNT 189 10^3/uL (130-400); RED CELL DISTRIBUTION WIDTH 12.6 % (10.0-14.5); WHITE BLOOD COUNT 8.3 10^3/uL (4.3-11.0)
[2019-01-19] MEDS ORDERED: ACETAMINOPHEN 500 MG TAB (TYLENOL) PO ONE (22:00)
[2019-01-19] MEDS ORDERED: ONDANSETRON 4 MG/2 ML (SDV) Z0FRAN IVP ONE (22:00)
[2019-01-19 22:03] LABS: BILIRUBIN,URINE NEGATIVE (NEGATIVE); CLARITY,URINE CLEAR; COLOR,URINE YELLOW; GLUCOSE, URINE (UA) 4+ (NEGATIVE); KETONES,URINE NEGATIVE (NEGATIVE); LEUKOCYTE ESTERASE ,URINE NEGATIVE (NEGATIVE); NITRITE,URINE NEGATIVE (NEGATIVE); PH,URINE 6 (5-9); PROTEIN,URINE NEGATIVE (NEGATIVE); UROBILINOGEN,URINE NORMAL (NORMAL)
[2019-01-19 22:11] LABS: BACTERIA,URINE NEGATIVE /HPF; WBC,URINE RARE /HPF
[2019-01-19 22:16] LABS: ALBUMIN 3.8 GM/DL (3.2-4.5); BILIRUBIN,TOTAL 0.4 MG/DL (0.1-1.0); CALCIUM 9.1 MG/DL (8.5-10.1); CREATININE SERUM 1.48 MG/DL (0.60-1.30); POTASSIUM 3.7 MMOL/L (3.6-5.0); TOTAL PROTEIN 7.5 GM/DL (6.4-8.2)
[2019-01-19] MEDS ORDERED: inSUlin ASPART (NovoLOG) 1 UNIT/0.01 ML (CHARGE PER UNIT) SC ONE (22:45)
[2019-01-19 23:35] VITALS: BP 131/63
== END 2019-01-19 23:38 | disposition home or self-care (01) ==
LOC: EDUNIT# 21:05 → ER 21:07
DX: E11.65 Type 2 diabetes mellitus with hyperglycemia (principal); E78.00 Pure hypercholesterolemia, unspecified; K21.9 Gastro-esophageal reflux disease without esophagitis; F41.9 Anxiety disorder, unspecified; F31.9 Bipolar disorder, unspecified; Z87.448 Personal history of other diseases of urinary system; Z88.5 Allergy status to narcotic agent; Z79.51 Long term (current) use of inhaled steroids; Z82.49 Family history of ischemic heart disease and other diseases of the circulatory system; Z79.82 Long term (current) use of aspirin; Z79.4 Long term (current) 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; Z87.19 Personal history of other diseases of the digestive system; Z87.891 Personal history of nicotine dependence; Z90.49 Acquired absence of other specified parts of digestive tract; Z98.890 Other specified postprocedural states; Z90.710 Acquired absence of both cervix and uterus
CPT/HCPCS: 36415; 80053; 81000; 82962; 83690; 83735; 85025

== ENCOUNTER → 2019-03-06 | Outpatient (CLI) | payer MEDICAID ==
[2019-03-06 12:18] LABS: BASOPHILS # (AUTO) 0.1 10^3/uL (0.0-0.1); BASOPHILS % (AUTO) 1 % (0-10); EOSINOPHILS # (AUTO) 0.4 10^3/uL (0.0-0.3); EOSINOPHILS % (AUTO) 6 % (0-10); HEMATOCRIT 40 % (35-52); HEMOGLOBIN 13.5 G/DL (11.5-16.0); LYMPHOCYTES # (AUTO) 1.9 X 10^3 (1.0-4.0); LYMPHOCYTES % (AUTO) 31 % (12-44); MEAN CORPUSCULAR HEMOGLOBIN 32 PG (25-34); MEAN CORPUSCULAR HGB CONC 34 G/DL (32-36); MEAN CORPUSCULAR VOLUME 95 FL (80-99); MEAN PLATELET VOLUME 9.8 FL (7.4-10.4); MONOCYTES # (AUTO) 0.4 X 10^3 (0.0-1.0); MONOCYTES % (AUTO) 6 % (0-12); NEUTROPHILS # (AUTO) 3.6 X 10^3 (1.8-7.8); NEUTROPHILS % (AUTO) 57 % (42-75); PLATELET COUNT 210 10^3/uL (130-400); RED CELL DISTRIBUTION WIDTH 12.3 % (10.0-14.5); WHITE BLOOD COUNT 6.4 10^3/uL (4.3-11.0)
[2019-03-06 12:38] LABS: ALBUMIN 3.8 GM/DL (3.2-4.5); BILIRUBIN,TOTAL 0.5 MG/DL (0.1-1.0); CALCIUM 9.5 MG/DL (8.5-10.1); CREATININE SERUM 1.05 MG/DL (0.60-1.30); POTASSIUM 4.3 MMOL/L (3.6-5.0); TOTAL PROTEIN 7.5 GM/DL (6.4-8.2)
== END ==
LOC: LAB 11:45
PROVIDERS: ATTEND Nurse Practitioner Psychiatric/Mental Health
DX: F33.2 Major depressive disorder, recurrent severe without psychotic features (principal); F60.9 Personality disorder, unspecified
CPT/HCPCS: 36415; 80053; 80061; 83036; 84443; 85025

== ENCOUNTER 2019-03-21 18:43 | Emergency (ER) | payer MEDICAID ==
[~2019-03-21] VITALS: Ht 170.2 cm; Wt 95.3 kg
--- OUTSIDE RECORDS SUMMARY | 2019-03-21 19:00 | XMS REPORT ---
Author Author Migration, Doctor Organization [facility] Address Unknown Phone Unavailable Care Team Providers Care Cloth Finishing Range Back Tender Name Role Phone Migration, Doctor Unavailable Unavailable PROBLEMS Type Condition ICD9-CM Code QEX77-HN Code Onset Dates Condition Status SNOMED Code Problem Serum creatinine raised R79.89 Active 552996918 Problem Episodic mood disorder F39 Active 71915621 Problem Generalized anxiety disorder F41.1 Active 40883749 Problem Lumbago with sciatica, left side M54.42 Active 879851283 Problem Dyslipidemia E78.5 Active 324120832 Problem Other chronic pain G89.29 Active 81439179 Problem Polyneuropathy associated with underlying disease G63 Active 216228566 Problem Syncope, unspecified syncope type R55 Active 664663518 Problem Recurrent major depressive disorder, in partial remission F33.41 Active 52379544 Problem Other seasonal allergic rhinitis J30.2 Active 212895428 Problem Hammertoe of left foot M20.42 Active 809214711 Problem Lumbago with sciatica, right side M54.41 Active 213089932 Problem 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 Active 871539644 Problem Type 2 diabetes mellitus with diabetic polyneuropathy E11.42 Active 94033170 Problem Stage 2 chronic kidney disease N18.2 Active 817502600 Problem Vitamin D deficiency E55.9 Active 74537677 ALLERGIES No Information ENCOUNTERS Encounter Location Date Diagnosis [place] [address], [place] [address] Jan, [facility]DC current use of insulin Z79.4 [place] [address], [place] [address] Jan, [place] [address] [place] [address] 01292- 1496 Jan, Type 2 diabetes mellitus with diabetic polyneuropathy E11.42 [place] [address], [place] [address] Jan, [facility] [address], [place] [address] Jan, Type 2 diabetes mellitus with diabetic polyneuropathy E11.42 [facility] [address] [place] [address] 35381- 1792 Dec, 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 [facility] [id number] [place] [address] 74584- 1309 Dec, FDC current use of insulin Z79.4 [place] [address] [place] [address] 48787- 6911 Dec, [place] [address] [place] [id number] [place] [address] 47573- 4586 Nov, Hammertoe of left foot M20.42 ; Peroneal tendonitis of left lower extremity M76.72 ; Callus of foot L84 and Type 2 diabetes mellitus with diabetic polyneuropathy E11.42 [place] [address] [place] [address] 62967- 3528 Nov, [place] [address] [id number] [place] [address] 75812- 6403 Nov, Encounter for immunization Z23 [facility] [id number] [place] [address] 40272- 0655 Oct, [facility] [address] [place] [address] 52761- 8985 Oct, [facility] [address] [place] [address] 94981- 7906 Oct, Acute pancreatitis, unspecified complication status, unspecified pancreatitis type K85.90 [facility] [address] [place] [address] 68777- 2013 Sep, 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 [facility] [address] [place] [address] 08747- 0062 Sep, [place] [address] [place] [address] 10810- 5084 Sep, Type 2 diabetes mellitus with diabetic polyneuropathy E11.42 ; Stage 2 chronic kidney disease N18.2 and Recurrent major depressive disorder, in partial remission F33.41 [place] [address] [id number] [place] [address] 90222- 9412 Sep, FDC current use of insulin Z79.4 [place] [address] [id number] [place] [address] 35551- 6206 Sep, Acute maxillary sinusitis, recurrence not specified J01.00 and Bronchiolitis J21.9 [place] [address] 16648- 0079 17 Jul, 2018 [place] [address] [id number] [place] [address] 61690- 1204 Jun, Type 2 diabetes mellitus with diabetic polyneuropathy E11.42 ; Open wound T14.8XXA ; 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 ; Stage 2 chronic kidney disease N18.2 and Episodic mood disorder F39 [place] [address] [address] [id number] [place] [address] 83975- 6137 May, [place] [address] [address] [id number] [place] [address] 84395- 6007 March, [place] [address] [place] [id number] [place] [address] 45223- 1183 March, Type 2 diabetes mellitus with diabetic [...] H60.502 and Non-adherence to medical treatment Z91.[address] [id number] Feb, Dental examination Z01.20 [facility] [address], [place] [address] 5[address] Feb, Labile hypertension R09.89 ; Syncope, unspecified syncope type R55 ; Chest pain, unspecified type R07.9 and Dyslipidemia E78.5 [place] [address] [place] [id number] [place] [address] 60863- 5429 Feb, [facility] [address] [address] [id number] [place] [address] 51834- 1425 Jan, [facility] [address] [place] [address] [id number] [place] [address] [id number] Jan, Dental examination Z01.20 [facility] [address] [address] [id number] [place] [address] 48891- 2923 Jan, Acute non-recurrent maxillary sinusitis J01.00 and Dyslipidemia E78.[address] [id number] [place] [address] [id number] Jan, Dental examination Z01.20 and Dental caries K02.[address] [id number][place] [address] Jan, [facility] [address] [place] [address] [id number] [place] [address] [id number] Dec, Dental examination Z01.20 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 ; Polyneuropathy associated with underlying disease G63 ; Stage 2 chronic kidney disease N18.2 and Syncope, unspecified syncope type R55 [place] [address] 16894- 0314 Oct, Type 2 diabetes mellitus with diabetic polyneuropathy E11.42 ; Acute otitis externa of left ear, unspecified type H60.502 ; Overweight (BMI 25.0-29.9) E66.3 ; Dyslipidemia E78.5 and Polyneuropathy associated with underlying disease G63 [place] [address] 14605- 4252 Sep, [place] [address] 08411- 5789 Aug, Abnormal mammogram R92.8 [place] [address] 68496- 3737 Aug, Type 2 diabetes mellitus with diabetic polyneuropathy E11.42 [place] [address] 00596- 3304 Aug, [place] [address] 50691- 9203 Aug, Type 2 diabetes mellitus with diabetic polyneuropathy E11.42 ; Syncope, unspecified syncope type R55 ; Other chronic pain G89.29 and Encounter for immunization Z23 [place] [address] 27708- 4835 Aug, Type 2 diabetes mellitus with diabetic polyneuropathy E11.42 [place] [address] [place] [id number] [place] [address] 09495- 7445 Jul, Type 2 diabetes mellitus with diabetic polyneuropathy E11.42 and Serum creatinine raised R79.89 [place] [address] 62047- 3949 Jul, Type 2 diabetes mellitus with diabetic polyneuropathy E11.42 and Serum creatinine raised R79.89 [place] [address] 66926- 4744 May, [place] [address], [place] [address] May, [place] [address] [place] [id number] [place] [address] 38434- 6864 May, Head injury, initial encounter S09.90XA ; Facial pain R51 ; Neck pain M54.2 and Fall, initial encounter W19.XXXA [place] [address] [place] [id number] [place] [address] 22123- 4895 May, Type 2 diabetes mellitus with diabetic polyneuropathy E11.42 [place] [address] [place] [id number] [place] [address] 83070- 4020 May, [place] [address] [place] [id number] [place] [address] 25675- 7424 May, Type 2 diabetes mellitus with diabetic polyneuropathy E11.42 [place] [address] [place] [id number] [place] [address] 27010- 0572 May, Dyslipidemia E78.5 ; 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 ; Type 2 diabetes mellitus with diabetic polyneuropathy E11.42 ; Generalized anxiety disorder F41.1 and Other seasonal allergic rhinitis J30.2 [place] [address] [place] [address] 65193- 9811 Apr, Type 2 diabetes mellitus with diabetic polyneuropathy E11.42 [place] [address] [place] [address] 02452- 3949 March, [place] [address] [place] [address] 58468- 3798 March, Abnormal mammogram R92.8 [place] [address] [place] [id number] [place] [address] 97681- 5990 Feb, Abnormal mammogram R92.8 [place] [address] [place] [address] 85933- 2900 Feb, Diabetes type 2, uncontrolled E11.65 [place] [address], [place] [address]- 5896 06 Feb, 2017 Screening for breast cancer Z12.39 [place] [address], [place] [address]- 6504 27 Jan, 2017 Screening for breast cancer Z12.39 [place] [address] [place] [address] 36403- 4554 Jan, Type 2 diabetes mellitus with diabetic polyneuropathy E11.42 ; 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 ; Other viral agents as the cause of diseases classified elsewhere B97.89 and Acute upper respiratory infection, unspecified J06.9 [place] [address] [place] [address] 92841- 0814 Jan, [place] [address] [place] [id number] [place] [address] 04700- 0347 17 Dec, 2016 Diabetes type 2, uncontrolled E11.65 ; Dyslipidemia E78.5 ; Generalized anxiety disorder F41.1 ; Depression, unspecified depression type F32.9 ; FDC current use of insulin Z79.4 and Polyneuropathy associated with underlying disease G63 [place] [address], [place] [address]- 5653 16 Dec, 2016 [place] [address], [place] [address]- 1262 14 Dec, 2016 [place] [address], [place] [address]- 7992 Dec, [place] [address], [place] [address]- 2264 Dec, [place] [address] [place] [id number] [place] [address] 40194- 1900 Oct, Well woman exam Z01.419 ; Screening for breast cancer Z12.39 ; FDC current use of insulin Z79.4 ; Type 2 diabetes mellitus without complications E11.9 and Encounter for immunization Z23 [place] [address] [place] [id number] [place] [address] 21952- 5055 Sep, [place] [address] [place] [id number] [place] [address] 57769- 1551 Sep, Diabetes type 2, uncontrolled E11.65 ; Dyslipidemia E78.5 and Depression, unspecified depression type F32.9 [place] [address] [place] [id number] [place] [address] 26469- 7098 Aug, Diabetes type 2, uncontrolled E11.65 ; Encounter for immunization Z23 ; Nasal congestion R09.81 and Ear pressure, bilateral H93.8X3 [place] [address] 74204- 3816 Jul, Eustachian tube dysfunction, left H69.82 [place] [address] [place] [id number] [place] [address] 27008- 0364 Jun, [place] [address] 48810- 7331 Jun, Hospital discharge follow-up Z09 ; Syncope, unspecified syncope type R55 and Acute suppurative otitis media of left ear without spontaneous rupture of tympanic membrane, recurrence not specified H66.002 [place] [address] [place] [id number] [place] [address] 45353- 3556 May, [place] [address] [place] [id number] [place] [address] 73010- 1491 May, [place] [address] [place] [id number] [place] [address] 86377- 5411 May, [place] [address] [place] [id number] [place] [address] 79613- 4459 May, Diabetes type 2, uncontrolled E11.65 ; [...] disturbance G47.9 and Generalized anxiety disorder F41.1 [facility] [address], [place] [address] 2546 March, [facility] [place] [id number] [place] [address] [id number] March, Syncope, unspecified syncope type R55 and Depression, unspecified depression type F32.9 [facility] [address] [place] [id number] [place] [address] [id number] March, Orthostatic hypotension I95.1 [facility] [address] [id number] [place] [address] [id number] March, [facility] [address], [place] [address]- 2546 March, [facility] [place] [id number] [place] [address] [id number] Feb, [facility] [address] [id number] [address] Feb, Dental examination Z01.20 [facility] [id number] [place] [address] [id number] Jan, [facility] [id number] [place] [address] [id number] Jan, [facility] [id number] [place] [address] [id number] Dec, Diabetes type 2, uncontrolled E11.65 [facility] [id number] [place] [address] [id number] Nov, [facility] [address] [id number][place] [id number] Nov, Encounter for dental examination Z01.20 [facility] [address] [id number] [id number] Nov, Dental examination Z01.20 [facility] [place] [id number][place] [id number] Sep, Diabetes type 2, uncontrolled E11.[address] [facility] [address] [id number] [place] [id number] Sep, Encounter for dental examination Z01.20 and Dental caries, unspecified K02.9 [facility] [id number], [place] [id number] Sep, Bipolar 2 disorder F31.81 [facility] [id number], [place] [id number] Aug, [facility] [id number], [place] [id number] Aug, Follow up V67.9 [facility] [address] [address]- 3677 Jul, Bipolar disorder, unspecified 296.80 [facility] [place] [id number], [place] [id number] Jul, Thyroid enlarged 240.9 and Bipolar disorder, unspecified 296.80 [facility] [address] [id number] Jun, Diabetes mellitus type 2, uncontrolled 250.02 ; Bipolar disorder, unspecified 296.80 and Rash 782.1 [facility] [id number], [place] [id number] Jun, [facility] [id number], [place] [id number] May, Urinary tract infection 599.0 [facility] [id number], [place] [address] May, Urinary tract infection 599.0 [facility] [id number], [place] [id number] May, [facility] [id number], [place] [address] May, Diabetes mellitus type 2, uncontrolled 250.02 and Pica in adults 307.52 [facility] [id number], [place] [address] Apr, Follow up V67.9 and Diabetes mellitus type 2, uncontrolled 250.02 [facility] [place] [place] [address] [id number] Apr, [facility] [address], [place] [address]- 2546 Apr, [facility] [id number], [place] [address] Apr, Hyperlipidemia 272.4 [facility] [address] [place] [address] [id number], [place] [address] March, Diabetes type 2, uncontrolled 250.02 [facility] [id number] [place] [address] [id number] March, Diabetes mellitus type 2, uncontrolled 250.02 [facility] [id number], [place] [address] March, Diabetes type 2, uncontrolled 250.02 [facility] [id number] [place] [address] [id number] March, [facility] [id number], [place] [id number] March, [facility] [id number], [place] [id number] Feb, [facility] [place] [facility] [address], [place] [address]- 2546 Feb, [facility] [place] [facility] [address], [place] [address]- 2546 Feb, [facility] [address] [place] [id number], [place] [id number] Jan, [facility] [place] [facility] [address], [place] [address]- 2546 Jan, [facility] [place] [facility] [id number], [place] [address]- 2546 Jan, [facility] [address] [place] [id number], [place] [address]73 Jan, [facility] [place] [facility] [address], [place] [address]- 2546 Jan, [facility] [place] [facility] [address], [place] [address]- 0746 Jan, [facility] [address] [facility] [id number], [place] [id number] Jan, [facility] [place] [facility] [address] [facility] [address] [id number], [place] [address]- 7095 Jan, [facility] [place] [facility] [id number], [place] [address]- 9196 Dec, [facility] [address] [facility] [id number] [place] [id number] Dec, [facility] [place] [facility] [id number], [place] [address]- 5140 Dec, [facility] [address] [facility] [id number] [place] [id number] Dec, [facility] [place] [facility] [id number], [place] [address]- 5126 Dec, [facility] [address] [id number], [place] [id number] Dec, [facility] [place] [facility] [address], [place] [address]- 3530 Dec, [facility] [place] [facility] [address], [place] [address]- 2323 Dec, [facility] [address] [id number], [place] [id number] Dec, [facility] [address] [id number], [place] [address]696 Dec, [facility] [place] [facility] [address], [place] [address]- 9917 Dec, [facility] [place] [facility] [address] [id number], [place] [address]- 5695 Nov, [facility] [place] [facility] [address] [id number], [place] [address]- 3216 Oct, [facility] [place] [facility] [id number]- 7746 Oct, [facility] [address] [facility] [id number], [place] [address]230[address]476 Sep, [facility] [address] [id number], [place] [address]- 1616 Sep, [facility] [address] [id number], [place] [address] Sep, [facility] [place] [facility] [address] [id number], [place] [address]- 5977 Sep, [facility] [address] [facility] [id number], [place] [id number] Aug, [facility] [place] [facility] [address] [id number], [place] [address]- 6351 Aug, [facility] [address] [facility] [id number], [place] [id number] Aug, [facility] [place] [facility] [address], [place] [address]- 2731 Aug, [facility] [place] [facility] [address], [place] [address]- 3474 Jul, [facility] [place] [facility] [address] [id number], [place] [address]- 8923 Jul, [facility] [address] [facility] [id number], [place] [id number] Jul, [facility] [place] [facility] [address] [id number], [place] [address]- 8894 Jul, [facility] [address] [facility] [id number], [place] [id number] Jun, [facility] [address] [facility] [id number], [place] [id number] Jun, [facility] [place] [facility] [address] [id number], [place]- 2677 Jun, [facility] [place] [facility] [address] [id number], [place] [address]- 2606 Jun, [facility] [address] [facility] [id number], [place] [id number] Jun, [facility] [place] [facility] [address] [id number] [place] [address]- 9726 Jun, [facility] [address] [id number] [place] [id number] May, [facility] [place] [facility] [address] [id number] [place] [address]- 9426 May, [facility] [place] [facility] [address] [id number] [place] [address]- 6660 Apr, [facility] [place] [facility] [address] [id number] [place] [address] Apr, [facility] [address] [facility] [id number] [place] [id number] Apr, [facility] [place] [facility] [address] [id number] [place] [address] Apr, [facility] [place] [facility] [address] [id number] [place] [address] Apr, [facility] [address] [facility] [id number] [id number] March, [facility] [place] [facility] [address] [id number] [place] [address] March, [facility] [place] [facility] [address] [id number], [place] [address] March, [facility] [address] [facility] [id number][place] [id number] March, [facility] [place] [facility] [address] [id number], [place] [address] March, [facility] [address] [facility] [id number] [place] [id number] March, [facility] [place] [facility] [address] [id number] [place] [address] March, [facility] [address] [facility] [id number] [place] [id number] Feb, [facility] [place] [facility] [address] [id number] [place] [address] Feb, [facility] [place] [facility] [address] [id number] [place] [address] Jan, [facility] [address] [id number] [place] [id number] Jan, [facility] [place] [facility] [address] [id number] [place] [address] Jan, [facility] [place] [facility] [address] [id number], [place] [address] Jan, [facility] [address] [id number] [place] [id number] Jan, [facility] [address] [id number] [place] [id number] Dec, [facility] [place] [facility] [address] [id number], [place] [address] Dec, [facility] [place] [facility] [address] [id number], [place] [address] Dec, [facility] [address] [id number] [place] [id number] Dec, [facility] [place] [facility] [address] [id number], [place] [address] Dec, [facility] [address] [facility] [id number][place] [id number] Dec, [facility] [place] [facility] [id number], [place] [address] Dec, [facility] [place] [facility] [address] [id number], [place] [address] Dec, [facility] [facility] [address] [id number] [place] [id number] Dec, [facility] [address] [facility] [id number] [place] [id number] Nov, [facility] [place] [facility] [address] [id number], [place] [address] Nov, [facility] [place] [facility] [address] [id number], [place] [address] Nov, [facility] [address] [id number] [place] [id number] Nov, [facility] [address] [id number] [place] [id number] Oct, [facility] [place] [facility] [address] [id number], [place] [address] Oct, [facility] [place] [address] [id number] [place] [id number] Oct, [facility] [place] [facility] [address] [id number] [place] [address] Oct, [facility] [place] [facility] [address] [id number], [place] [address] Oct, [facility] [place] [facility] [address] [id number], [place] [address] Oct, [facility] [place] [address] [facility] [id number][place] [id number] Oct, [facility] [place] [facility] [address] [id number], [place] [address] Oct, [facility] [place] [facility] [address] [id number], [place] [address] Sep, [facility] [place] [facility] [address] [id number], [place] [address] Sep, [facility] [address] [id number], [place] [address]40 Sep, [facility] [place] [facility] [address] [id number], [place] [address] Sep, [facility] [place] [facility] [address] [id number], [place] [address] Sep, [facility] [address] [id number][place] [id number] Sep, [facility] [address] [id number][place] [address] Aug, [facility] [place] [facility] [address] [id number], [place] [address] Aug, [facility] [place] [facility] [address] [id number], [place] [address]646 Aug, [facility] [address] [id number][place] [id number] Aug, [facility] [address] [id number][place] [id number] Aug, [facility] [place] [facility] [address] [id number] [place] [address] Aug, [facility] [place] [facility] [address] [id number] [place] [address]- [address] Aug, [facility] [place] [facility] [address] [id number], [place] [address] Aug, [facility] [address] [facility] [id number], [place] [address]1056 Jul, [facility] [place] [facility] [address] [id number], [place] [address] Jul, [facility] [place] [facility] [address] [id number], [place] [address] Jul, [facility] [address] [facility] [id number], [place] [id number] Jul, [facility] [address] [facility] [id number], [place] [id number] Jul, [facility] [place] [facility] [address] [id number], [place] [address] May, [facility] [place] [facility] [address] [id number], [place] [address]674 Apr, [facility] [address] [facility] [id number][place] [id number] Apr, [facility] [address] [facility] [id number], [place] [id number] Apr, [facility] [place] [facility] [address] [id number], [place] [address] March, [facility] [address] [id number] [place] [id number] March, [facility] [address] [id number] [place] [address] March, [facility] [address] [id number] [place] [id number] March, [facility] [address] [id number] [place] [id number] March, [facility] [address] [id number] [place] [id number] March, [facility] [address] [id number][place] [address] March, [facility] [address] [id number], [place] [address]- [address]46 March, [facility] [address] [id number], [place] [address] Feb, [facility] [address] [id number] [place] [id number] Feb, [facility] [address] [id number] [place] [id number] Feb, [facility] [address] [id number] [place] [id number] Feb, [facility] [id number], [place] [address] Feb, [facility] [address] [id number] [place] [id number] Feb, [facility] [address] [id number] [place] [id number] Jan, [facility] [address] [id number] [place] [id number] Jan, [facility] [address] [id number] [place] [id number] Dec, [facility] [address] [id number] [place] [id number] Dec, [facility] [address] [id number], [place] [address] Dec, [facility] [address] [id number] [place] [id number] Dec, [facility] [address] [id number] [place] [id number] Dec, [facility] [address] [id number] [place] [id number] Dec, [facility] [address] [id number] [place] [id number] Dec, [facility] [address] [id number], [place] [address]- [address] Nov, [facility] [address] [id number] [place] [id number] Nov, [facility] [address] [id number] [place] 7391550[place] Nov, [facility] [address] [id number] [place] 5896928[address] Nov, [facility] [address] [id number] [place] [id number] Nov, [facility] [address] [id number], [place] [address] Oct, [facility] [address] [id number] [place] [id number] Oct, [facility] [address] [id number] [place] [id number] Oct, [facility] [address] [id number], [place] 399882180 Oct, [facility] [address] [id number], [place] [address]- [address]95 Oct, [facility] [place] [facility] [address] [id number], [place] [address]- 6891 Oct, [facility] [place] [facility] [address] [id number], [place] 29135994- 6970 Oct, [facility] [address] [id number], [place] [id number] Sep, [facility] [place] [facility] [address] [id number], [place] [address]- 8701 Sep, [facility] [place] [facility] [address] [id number], [place] [address]- 6598 Sep, [facility] [address] [id number] [place] [id number] Sep, [facility] [address] [id number], [place] 348227840 Sep, [facility] [address] [id number], [place] [id number] Sep, [facility] [place] [facility] [address] [id number], [place] 609[place]- [address]757 Sep, [facility] [place] [facility] [address] [id number], [place] [address]- 9447 Sep, [facility] [place] [facility] [address] [id number], [place] 635[place]- 5565 Sep, [facility] [address] [facility] [id number], [place] [id number] Aug, [facility] [place] [facility] [address] [id number], [place] [address]- 1798 Aug, [facility] [address] [facility] [id number], [place] [id number] Aug, [facility] [place] [facility] [address] [id number], [place] 917985- 7904 Aug, [facility] [place] [facility] [address] [id number], [place] [address]- 1545 Aug, [facility] [address] [id number], [place] [id number] Aug, [facility] [address] [facility] [id number], [place] [id number] Aug, [facility] [place] [facility] [address] [id number], [place] [address]- 3913 Aug, [facility] [address] [id number] [id number] Aug, [facility] [address] [id number] [place] [id number] Jul, [facility] [address] [id number] [place] 485191926 Jun, [facility] [address] [id number] [place] [id number] May, [facility] [address] [id number] [place] 394[place]162 May, [facility] [address] [id number] [place] [id number] May, [facility] [address] [id number] [place] [id number] May, [facility] [address] [id number] [place] 567661746 May, [facility] [address] [id number] [place] [id number] May, [facility] [address] [id number] [place] 705153097 May, [facility] [address] [id number] [place] 509493295 Apr, [facility] [address] [id number] [place] 037919249 Apr, [facility] [address] [id number] [place] 7290[place]135 Apr, [facility] [address] [id number] [place] 120[place]1144 Apr, [facility] [address] [id number] [place] [id number] Apr, [facility] [address] [id number] [place] 770449921 Apr, [facility] [address] [id number] [place] [id number] March, [facility] [address] [id number] [id number] March, [facility] [address] [id number] [place] 18[address] Feb, [facility] [address] [id number] [place] [id number] 16 Feb, 2012 [facility] [address] [id number] [place] [id number] Feb, [facility] [address] [id number] [place] [id number] Jan, [facility] [address] [id number] [place] [id number] Jan, [facility] [address] [id number] [place] [id number] 15 Jan, 2012 [facility] [address] [id number] [place] [id number] Jan, [facility] [address] [id number] [id number] Dec, [facility] [address]00565100[place], [place] [address]- 4381 Dec, [facility] [address] [id number] [place] [id number] Dec, [facility] [address] [id number] [place] [id number] Nov, [facility] [address] [id number] [place] [id number] Nov, [facility] [address] [id number] [place] 563143982 Nov, [facility] [address] [id number], [place] [address]- 8955 Oct, [facility] [id number] [place] [address] 56925925- 4016 Oct, [facility] [id number] [place] [address] 0[address]571- 0329 Oct, [facility] [id number] [place] [address]- 8107 Aug, [facility] [address] [id number]- 5807 Aug, [facility] [place] [facility] [address] [id number] [place] [address]- 4167 Aug, [facility] [address] [id number] [place] [address]- 9489 March, [facility] [place] [facility] [address] [id number] [place] [address]- 3832 Oct, [facility] [place] [facility] [address] [id number] [place] [address]- 4145 Oct, [facility] [place] [facility] [address] [id number] [place] [address]- 4655 Sep, [facility] [place] [facility] [address] [id number] [place] [address]- 7611 Sep, [facility] [place] [facility] [address] [id number] [place] [address]- 9661 Sep, [facility] [place] [facility] [address] [id number] [place] [address]- 6235 Aug, [facility] [place] [facility] [address] [id number] [place] [address]- 5463 Aug, [facility] [place] [facility] [address] [id number] [place] [address]- 1789 Jun, [facility] [place] [facility] [address] [id number] [place] [address]- 7459 May, [facility] [place] [facility] [address] [id number] [place] [address]- 0075 Jan, [facility] [place] [facility] [address] [id number] [place] [address]- 4085 Nov, [facility] [place] [facility] [address] [id number] [place] [address]- 5771 Oct, [facility] [place] [facility] [address] [id number] [place] [address]- 1256 Sep, [facility] [place] [facility] [address] [id number] [place] [address]- 0134 Sep, [facility] [address] [id number], [place] [address]- 9817 Sep, [facility] [address] [id number], [place] [address]- 2748 Sep, [facility] [address] [id number], [place] [address]- 3157 Sep, [facility] [address] [id number]- 0822 Aug, [facility] [address] [id number], [place] [address]- 8825 Aug, [facility] [address] [id number], [place] [address]- 7961 Jul, [facility] [address] [id number], [place] [address]- 7944 Jun, IMMUNIZATIONS No Known Immunizations SOCIAL HISTORY Never Assessed REASON FOR VISIT [facility] [place]AN OF CARE VITAL SIGNS MEDICATIONS Unknown [...] 08/2016 Hospitalization History chest pain ED visit [facility], pt scheduled for heart cath on May Hospitalization History [facility] 2012 Hospitalization History Chest pain-[facility] 12/22/16
--- OUTSIDE RECORDS SUMMARY | 2019-03-21 19:01 | XMS REPORT ---
Author Author Migration, Doctor Organization [facility] Address Unknown Phone Unavailable Care Team Providers Care Lead Blender Name Role Phone Migration, Doctor Unavailable Unavailable PROBLEMS Type Condition ICD9-CM Code KMI92-II Code Onset Dates Condition Status SNOMED Code Problem Serum creatinine raised R79.89 Active 040018975 Problem Episodic mood disorder F39 Active 61705995 Problem Generalized anxiety disorder F41.1 Active 82838920 Problem Lumbago with sciatica, left side M54.42 Active 126253788 Problem Dyslipidemia E78.5 Active 043506163 Problem Other chronic pain G89.29 Active 58926085 Problem Polyneuropathy associated with underlying disease G63 Active 332795858 Problem Syncope, unspecified syncope type R55 Active 813834974 Problem Recurrent major depressive disorder, in partial remission F33.41 Active 90969366 Problem Other seasonal allergic rhinitis J30.2 Active 513677259 Problem Hammertoe of left foot M20.42 Active 389455961 Problem Lumbago with sciatica, right side M54.41 Active 733485451 Problem 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 Active 732342368 Problem Type 2 diabetes mellitus with diabetic polyneuropathy E11.42 Active 18045151 Problem Stage 2 chronic kidney disease N18.2 Active 395694077 Problem Vitamin D deficiency E55.9 Active 43831800 ALLERGIES No Information ENCOUNTERS Encounter Location Date Diagnosis [place] [address], [place] [address] Jan, USP current use of insulin Z79.4 [place] [address], [place] [address] Jan, [place] [address] [place] [address] 31241- 3105 Jan, Type 2 diabetes mellitus with diabetic polyneuropathy E11.42 [place] [address], [place] [address] Jan, [facility] [address], [place] [address] 4889 Jan, Type 2 diabetes mellitus with diabetic polyneuropathy E11.42 [facility] [address] [place] [address] 49471- 5014 Dec, 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 [facility] [address] [place] [id number] [place] [address] 77629- 1460 Dec, USP current use of insulin Z79.4 [place] [address] [place] [address] 25661- 4843 Dec, [place] [address] [id number] [place] [address] 72772- 5428 Nov, Hammertoe of left foot M20.42 ; Peroneal tendonitis of left lower extremity M76.72 ; Callus of foot L84 and Type 2 diabetes mellitus with diabetic polyneuropathy E11.42 [place] [address] [place] [address] 97215- 4246 Nov, [place] [address] [address] [id number] [place] [address] 55931- 1573 Nov, Encounter for immunization Z23 [facility] [id number] [place] [address] 76179- 1910 Oct, [facility] [address] [place] [address] 08884- 8335 Oct, [facility] [address] [place] [address] 21776- 0160 Oct, Acute pancreatitis, unspecified complication status, unspecified pancreatitis type K85.90 [facility] [address] [place] [address] 67954- 8405 Sep, 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 [facility] [address] [place] [address] 41380- 3936 Sep, [place] [address] [place] [address] 07649- 0989 Sep, Type 2 diabetes mellitus with diabetic polyneuropathy E11.42 ; Stage 2 chronic kidney disease N18.2 and Recurrent major depressive disorder, in partial remission F33.41 [place] [address] [address] [id number] [place] [address] 48495- 5277 Sep, USP current use of insulin Z79.4 [place] [address] [address] [id number] [place] [address] 50589- 3471 Sep, Acute maxillary sinusitis, recurrence not specified J01.00 and Bronchiolitis J21.9 [place] [address] 8[address]85- 6553 17 Jul, 2018 [place] [address] [address] [id number] [place] [address] 88649- 0907 Jun, Type 2 diabetes mellitus with diabetic polyneuropathy E11.42 ; Open wound T14.8XXA ; 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 ; Stage 2 chronic kidney disease N18.2 and Episodic mood disorder F39 [place] [address] [address] [id number] [place] [address] 74193- 9785 May, [place] [address] [address] [id number] [place] [address] 44977- 0996 March, [place] [address] [address] [id number] [place] [address] 71432- 5800 March, Type 2 diabetes mellitus with diabetic [...] H60.502 and Non-adherence to medical treatment Z91.[address] [id number] [id number] Feb, Dental examination Z01.20 [facility] [address], [place] [address]- 8565 Feb, Labile hypertension R09.89 ; Syncope, unspecified syncope type R55 ; Chest pain, unspecified type R07.9 and Dyslipidemia E78.5 [place] [address] [place] [id number] [place] [address] 78269- 4684 Feb, [facility] [address] [place] [address] [id number] [place] [address] 29270- 4418 Jan, [facility] [address] [place] [address] [id number] [place] [address] [id number] Jan, Dental examination Z01.20 [facility] [address] [id number] [place] [address] 25740- 3652 Jan, Acute non-recurrent maxillary sinusitis J01.00 and Dyslipidemia E78.[address] [facility] [id number] [place] [address] [id number] Jan, Dental examination Z01.20 and Dental caries K02.[address] [facility] [id number][place] [id number] Jan, [facility] [address] [place] [address] [id number] [place] [address] [id number] Dec, Dental examination Z01.20 [facility] [address] [place] [address] 90528 -8059 Dec, Seasonal allergic rhinitis, unspecified trigger J30.2 [facility] [address] [place] [address] 00339- 9065 Nov, [place] [address] [place] [address] [id number] [place] [address] 84031- 4767 Nov, Type 2 diabetes mellitus with diabetic polyneuropathy E11.42 ; Dyslipidemia E78.5 ; Lumbago with sciatica, right side M54.41 ; Lumbago with sciatica, left side M54.42 ; 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 ; Polyneuropathy associated with underlying disease G63 ; Stage 2 chronic kidney disease N18.2 and Syncope, unspecified syncope type R55 [place] [address] 36061- 6242 Oct, Type 2 diabetes mellitus with diabetic polyneuropathy E11.42 ; Acute otitis externa of left ear, unspecified type H60.502 ; Overweight (BMI 25.0-29.9) E66.3 ; Dyslipidemia E78.5 and Polyneuropathy associated with underlying disease G63 [place] [address] 06770- 0842 Sep, [place] [address] 79932- 0097 Aug, Abnormal mammogram R92.8 [place] [address] 65030- 7535 Aug, Type 2 diabetes mellitus with diabetic polyneuropathy E11.42 [place] [address] 00938- 8679 Aug, [place] [address] 31681- 8729 Aug, Type 2 diabetes mellitus with diabetic polyneuropathy E11.42 ; Syncope, unspecified syncope type R55 ; Other chronic pain G89.29 and Encounter for immunization Z23 [place] [address] 00141- 9620 Aug, Type 2 diabetes mellitus with diabetic polyneuropathy E11.42 [place] [address] [address] [id number] [place] [address] 01352- 8761 Jul, Type 2 diabetes mellitus with diabetic polyneuropathy E11.42 and Serum creatinine raised R79.89 [place] [address] 23095- 0232 Jul, Type 2 diabetes mellitus with diabetic polyneuropathy E11.42 and Serum creatinine raised R79.89 [place] [address] 92952- 7974 May, [place] [address], [place] [address]- 7345 May, [place] [address] [place] [id number] [place] [address] 06326- 3946 May, Head injury, initial encounter S09.90XA ; Facial pain R51 ; Neck pain M54.2 and Fall, initial encounter W19.XXXA [place] [address] [place] [address] [id number] [place] [address] 10116- 9969 May, Type 2 diabetes mellitus with diabetic polyneuropathy E11.42 [place] [address] [place] [id number] [place] [address] 67202- 9804 May, [place] [address] [place] [id number] [place] [address] 75956- 7014 May, Type 2 diabetes mellitus with diabetic polyneuropathy E11.42 [place] [address] [place] [id number] [place] [address] 96690- 1662 May, Dyslipidemia E78.5 ; 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 ; Type 2 diabetes mellitus with diabetic polyneuropathy E11.42 ; Generalized anxiety disorder F41.1 and Other seasonal allergic rhinitis J30.2 [place] [address] [place] [address] 42991- 1901 Apr, Type 2 diabetes mellitus with diabetic polyneuropathy E11.42 [place] [address] [place] [address] 03891- 9771 March, [place] [address] [place] [address] 89816- 2738 March, Abnormal mammogram R92.8 [place] [address] [place] [id number] [place] [address] 67074- 7716 Feb, Abnormal mammogram R92.8 [place] [address] [place] [address] 52443- 8378 Feb, Diabetes type 2, uncontrolled E11.65 [place] [address], [place] [address]- 9304 06 Feb, 2017 Screening for breast cancer Z12.39 [place] [address], [place] [address]- 5737 27 Jan, 2017 Screening for breast cancer Z12.39 [place] [address] [place] [address] 77372- 3118 Jan, Type 2 diabetes mellitus with diabetic polyneuropathy E11.42 ; 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 ; Other viral agents as the cause of diseases classified elsewhere B97.89 and Acute upper respiratory infection, unspecified J06.9 [place] [address] [place] [address] 17498- 7129 Jan, [place] [address] [place] [id number] [place] [address] 85295- 0336 17 Dec, 2016 Diabetes type 2, uncontrolled E11.65 ; Dyslipidemia E78.5 ; Generalized anxiety disorder F41.1 ; Depression, unspecified depression type F32.9 ; USP current use of insulin Z79.4 and Polyneuropathy associated with underlying disease G63 [place] [address], [place] [address]- 4948 16 Dec, 2016 [place] [address], [place] [address]- 7282 14 Dec, 2016 [place] [address], [place] [address]- 1156 Dec, [place] [address], [place] [address]- 2578 Dec, [place] [address] [place] [id number] [place] [address] 75985- 6394 Oct, Well woman exam Z01.419 ; Screening for breast cancer Z12.39 ; USP current use of insulin Z79.4 ; Type 2 diabetes mellitus without complications E11.9 and Encounter for immunization Z23 [place] [address] [address] [id number] [place] [address] 40516- 0981 Sep, [place] [address] [place] [address] [id number] [place] [address] 05372- 9783 Sep, Diabetes type 2, uncontrolled E11.65 ; Dyslipidemia E78.5 and Depression, unspecified depression type F32.9 [place] [address] [place] [id number] [place] [address] 06975- 5207 Aug, Diabetes type 2, uncontrolled E11.65 ; Encounter for immunization Z23 ; Nasal congestion R09.81 and Ear pressure, bilateral H93.8X3 [place] [address] 86779- 7289 Jul, Eustachian tube dysfunction, left H69.82 [place] [address] [place] [id number] [place] [address] 16940- 1451 Jun, [place] [address] 11569- 6829 Jun, Hospital discharge follow-up Z09 ; Syncope, unspecified syncope type R55 and Acute suppurative otitis media of left ear without spontaneous rupture of tympanic membrane, recurrence not specified H66.002 [place] [address] [place] [id number] [place] [address] 62443- 2524 May, [place] [address] [place] [id number] [place] [address] 68519- 9268 May, [place] [address] [place] [id number] [place] [address] 50237- 4792 May, [place] [address] [place] [id number] [place] [address] 39904- 3419 May, Diabetes type 2, uncontrolled E11.65 ; [...] disturbance G47.9 and Generalized anxiety disorder F41.1 [facility] [address], [place] [address] 2546 March, [facility] [id number] [place] [address] [phone] March, Syncope, unspecified syncope type R55 and Depression, unspecified depression type F32.9 [facility] [address] [id number] [place] [address] [id number] March, Orthostatic hypotension I95.1 [facility] [id number] [place] [address] [phone] March, [facility] [address], [place] [address]- 2546 March, [facility] [id number] [place] [address] [phone] Feb, [facility] [address] [id number] [id number] Feb, Dental examination Z01.20 [facility] [id number] [place] [address] [id number] Jan, [facility] [address] [id number] [place] [address] [phone] Jan, [facility] [id number] [place] [address] [phone] Dec, Diabetes type 2, uncontrolled E11.65 [facility] [id number] [place] [address] [phone] Nov, [facility] [address] [id number] [id number] Nov, Encounter for dental examination Z01.20 [facility] [address] [id number] [phone] Nov, Dental examination Z01.20 [facility] [place] [id number], [place] [address] Sep, Diabetes type 2, uncontrolled E11.[address] [facility] [address] [id number] [place] [phone] Sep, Encounter for dental examination Z01.20 and Dental caries, unspecified K02.9 [facility] [id number], [place] [phone] Sep, Bipolar 2 disorder F31.81 [facility] [id number], [place] [phone] Aug, [facility] [id number], [place] [id number] Aug, Follow up V67.9 [facility] [address] [address]- 9058 Jul, Bipolar disorder, unspecified 296.80 [facility] [id number], [place] [id number] Jul, Thyroid enlarged 240.9 and Bipolar disorder, unspecified 296.80 [facility] [address] [id number] Jun, Diabetes mellitus type 2, uncontrolled 250.02 ; Bipolar disorder, unspecified 296.80 and Rash 782.1 [facility] [id number], [place] [phone] Jun, [facility] [id number], [place] [id number] May, Urinary tract infection 599.0 [facility] [id number], [place] [id number] May, Urinary tract infection 599.0 [facility] [id number], [place] [phone] May, [facility] [id number], [place] [address] May, Diabetes mellitus type 2, uncontrolled 250.02 and Pica in adults 307.52 [facility] [id number], [place] [address] Apr, Follow up V67.9 and Diabetes mellitus type 2, uncontrolled 250.02 [facility] [address] [phone] Apr, [facility] [address], [place] [address]- 2546 Apr, [facility] [id number], [place] [id number] Apr, Hyperlipidemia 272.4 [facility] [address] [address] [id number] [phone] March, Diabetes type 2, uncontrolled 250.02 [facility] [id number] [place] [address] [phone] March, Diabetes mellitus type 2, uncontrolled 250.02 [facility] [id number], [place] [id number] March, Diabetes type 2, uncontrolled 250.02 [facility] [id number] [place] [address] [phone] March, [facility] [id number], [place] [id number] March, [facility] [id number], [place] [id number] Feb, [facility] [place] [facility] [address], [place] [address]- 2546 Feb, [facility] [place] [facility] [address], [place] [address]- 2546 Feb, [facility] [address] [id number], [place] [id number] Jan, [facility] [place] [facility] [address], [place] [address]- 2546 Jan, [facility] [place] [facility] [id number], [place] [address]- 2546 Jan, [facility] [address] [id number], [place] [id number] Jan, [facility] [place] [facility] [address], [place] [address]- 2546 Jan, [facility] [place] [facility] [address], [place] [address]- 8396 Jan, [facility] [address] [facility] [id number], [place] [id number] Jan, [facility] [place] [facility] [address] [facility] [id number], [place] [address]- 0767 Jan, [facility] [place] [facility] [id number], [place] [address]- 8829 Dec, [facility] [address] [facility] [id number] [place] [phone] Dec, [facility] [place] [facility] [id number], [place] [address]- 6795 Dec, [facility] [address] [facility] [id number] [place] [id number] Dec, [facility] [place] [facility] [id number], [place] [address]- 1536 Dec, [facility] [address] [id number], [place] 444998859 Dec, [facility] [place] [facility] [address], [place] [address]- 1976 Dec, [facility] [place] [facility] [address], [place] [address]- 5611 Dec, [facility] [address] [id number], [place] [address]11758501 Dec, [facility] [address] [id number], [place] [id number] Dec, [facility] [place] [facility] [address], [place] [address]- 4545 Dec, [facility] [place] [facility] [address] [facility]] [id number], [place] [address]- 2639 Nov, [facility] [place] [facility] [address] [facility] [id number], [place] [address]- 6085 Oct, [facility] [place] [facility] [id number]- 5794 Oct, [facility] [address] [facility] [id number], [place] [id number] Sep, [facility] [address] [id number], [place] [address]- 6286 Sep, [facility] [address] [id number], [place] [id number] Sep, [facility] [place] [facility] [address] [facility]] [id number], [place] [address]- 2692 Sep, [facility] [address] [facility] [id number], [place] [id number] Aug, [facility] [place] [facility] [address] [facility]] [id number], [place] [address]- 0633 Aug, [facility] [address] [facility] [id number], [place] [id number] Aug, [facility] [place] [facility] [address], [place] [address]- 7523 Aug, [facility] [place] [facility] [address], [place]- 1462 Jul, [facility] [place] [facility] [address] [facility]] [id number], [place] [address]- 8310 Jul, [facility] [address] [facility] [id number], [place] [id number] Jul, [facility] [place] [facility] [address] [id number], [place] [address]- 2493 Jul, [facility] [address] [facility] [id number], [place] [id number] Jun, [facility] [address] [facility] [id number], [place] [id number] Jun, [facility] [place] [facility] [address] [facility]] [id number], [place] 358757- 1919 Jun, [facility] [place] [facility] [address] [facility]] [id number], [place] [address]- 0322 Jun, [facility] [address] [facility] [id number], [place] [id number] Jun, [facility] [place] [facility] [address] [id number] [place] [address]- 8676 Jun, [facility] [address] [id number] [place] [id number] May, [facility] [place] [facility] [address] [id number] [place] [address]- 4106 May, [facility] [place] [facility] [address] [facility]] [id number] [place] [address]- 5361 Apr, [facility] [place] [facility] [address] [id number] [place] [address]- 0698 Apr, [facility] [address] [facility] [id number] [place] [id number] Apr, [facility] [place] [facility] [address] [facility]] [id number] [place] [address]- 0496 Apr, [facility] [place] [facility] [address] [facility]] [id number] [place] [address]- 9167 Apr, [facility] [address] [facility] [id number], [place] [id number] March, [facility] [place] [facility] [address] [facility][NOTE [address]] [id number] [place] [address] March, [facility] [place] [facility] [address] [facility][NOTE 3] [id number][place] [address] March, [facility] [address] [facility] [id number][place] [id number] March, [facility] [place] [facility] [address] [facility][NOTE 3] [id number], [place] [address] March, [facility] [address] [facility] [id number] [place] [id number] March, [facility] [place] [facility] [address] [facility][NOTE 3] [id number] [place] [address] March, [facility] [address] [facility] [id number] [place] [id number] Feb, [facility] [place] [facility] [address] [facility][NOTE 3] [id number] [place] [address] Feb, [facility] [place] [facility] [address] [facility][NOTE 3] [id number] [place] [address] Jan, [facility] [address] [id number] [place] [id number] Jan, [facility] [place] [facility] [address] [facility][NOTE 3] [id number] [place] [address] Jan, [facility] [place] [facility] [address] [facility][NOTE 3] [id number], [place] [address] Jan, [facility] [address] [id number] [place] [id number] Jan, [facility] [address] [id number] [place] [id number] Dec, [facility] [place] [facility] [address] [facility]NOTE 3] [id number], [place] [address] Dec, [facility] [place] [facility] [address] [id number], [place] [address] Dec, [facility] [place] [address] [id number] [place] [id number] Dec, [facility] [place] [facility] [address] [facility][NOTE 3] [id number], [place] [address] 2546 Dec, [facility] [place] [address] [facility] [id number][place] [id number] Dec, [facility] [place] [facility] [id number], [place] [address] Dec, [facility] [place] [facility] [address] [facility][NOTE 3] [id number], [place] [address]- 2546 Dec, [facility] [place] [address] [id number] [place] [address] Dec, [facility] [place] [address] [facility] [id number] [place] [id number] Nov, [facility] [place] [facility] [address] [facility][NOTE 3] [id number], [place] [address] Nov, [facility] [place] [facility] [address] [id number], [place] [address]66 Nov, [facility] [place] [address] [id number] [place] [id number] Nov, [facility] [place] [address] [id number] [place] [id number] Oct, [facility] [place] [facility] [address] [id number], [place] [address]- [address]106 Oct, [facility] [place] [address] [id number] [place] [id number] Oct, [facility] [place] [facility] [address] [id number] [place] [address]- 1874 Oct, [facility] [place] [facility] [address] [facility][NOTE 3] [id number], [place] [address] Oct, [facility] [place] [facility] [address] [facility][NOTE 3] [id number], [place] [address]- [address]237 Oct, [facility] [place] [address] [facility] [id number], [place] [id number] Oct, [facility] [place] [facility] [address] [facility][NOTE 3] [id number], [place] [address]- 4261 Oct, [facility] [place] [facility] [address] [facility][NOTE 3] [id number], [place] [address]- 8623 Sep, [facility] [place] [facility] [address] [facility][NOTE 3] [id number], [place] [address]- [address] Sep, [facility] [place] [address] [id number][place] [id number] Sep, [facility] [place] [facility] [address] [facility][NOTE 3] [id number], [place] [address]- 9156 Sep, [facility] [place] [facility] [address] [facility][NOTE 3] [id number], [place] [address]- 8326 Sep, [facility] [place] [address] [id number], [place] [address]84776244 Sep, [facility] [place] [address] [id number], [place] [id number] Aug, [facility] [place] [facility] [address] [facility][NOTE 3] [id number][place] [address]- 6783 Aug, [facility] [place] [facility] [address] [facility][NOTE 3] [id number], [place] [address]- 1676 Aug, [facility] [place] [address] [id number], [place] [address]87[address]5046 Aug, [facility] [place] [address] [id number], [place] [address]24[address]0527 Aug, [facility] [place] [facility] [address] [facility][NOTE 3] [id number] [place] [address]- [address] Aug, [facility] [place] [facility] [address] [facility][NOTE 3] [id number] [place] [address]- 8393 Aug, [facility] [place] [facility] [address] [facility][NOTE 3] [id number], [place] [address]- 6549 Aug, [facility] [place] [address] [facility] [id number], [place] [id number] Jul, [facility] [place] [facility] [address] [facility][NOTE 3] [id number], [place] [address]- 2335 Jul, [facility] [place] [facility] [address] [facility][NOTE 3] [id number], [place] [address] 2540 Jul, [facility] [place] [address] [facility] [id number], [place] 665233246 Jul, [facility] [place] [address] [facility] [id number], [place] [id number] Jul, [facility] [place] [facility] [address] [facility][NOTE 3] [id number], [place] [address]- 8236 May, [facility] [place] [facility] [address] [facility][NOTE 3] [id number], [place] [address]- 4443 Apr, [facility] [place] [address] [facility] [id number], [place] [id number] Apr, [facility] [place] [address] [facility] [id number], [place] [address]24834556 Apr, [facility] [place] [facility] [address] [facility][NOTE 3] [id number], [place] [address]- 2546 March, [facility] [place] [address] [id number] [place] [id number] March, [facility] [place] [address] [id number] [place] [id number] March, [facility] [place] [address] [id number] [place] [id number] March, [facility] [place] [address] [id number] [place] 835833892 March, [facility] [place] [address] [id number] [place] [address] March, [facility] [address] [facility][NOTE 3] [id number], [place] [address]- 2546 March, [facility] [address] [facility][NOTE 3] [id number][place] [address]- 2546 March, [facility] [address] [id number], [place] [address]46 Feb, [facility] [place] [address] [id number] [place] [id number] Feb, [facility] [place] [address] [id number] [place] [id number] Feb, [facility] [place] [address] [id number] [place] [address]8723[address] Feb, [facility] [address]00565100[place], [place] [address]- 2546 Feb, [facility] [place] [address] [id number] [place] [id number] Feb, [facility] [place] [address] [id number] [place] [id number] Jan, [facility] [place] [address] [id number] [place] [id number] Jan, [facility] [place] [address] [id number] [place] [id number] Dec, [facility] [place] [address] [id number] [place] [id number] Dec, [facility] [address] [id number], [place] [address]- 9851 Dec, [facility] [place] [address] [id number] [place] 475428267 Dec, [facility] [place] [address] [id number] [place] 916525148 Dec, [facility] [place] [address] [id number] [place] 624844874 Dec, [facility] [place] [address] [id number] [place] [address] Dec, [facility] [address] [id number], [place] [address]- 7131 Nov, [facility] [place] [address] [id number] [place] [address]77322514 Nov, [facility] [place] [address] [id number] [place] 696130033 Nov, [facility] [place] [address] [id number] [place] 810175736 Nov, [facility] [place] [address] [id number] [place] 419588036 Nov, [facility] [address] [facility][NOTE 3] [id number], [place] [address]- [address]1 Oct, [facility] [place] [address] [id number] [place] 117020749 Oct, [facility] [place] [address] [id number] [place] [id number] Oct, [facility] [place] [address] [id number][place] [id number] Oct, [facility] [address] [facility][NOTE 3] [id number], [place] [address]- 9788 Oct, [facility] [place] [facility] [address] [facility][NOTE 3] [id number], [place] [address]- 4848 Oct, [facility] [place] [facility] [address] [facility][NOTE 3] [id number], [place] 87992513- 4941 Oct, [facility] [place] [address] [id number], [place] 125544233 Sep, [facility] [place] [facility] [address] [facility][NOTE 3] [id number], [place] [address]- 9929 Sep, [facility] [place] [facility] [address] [facility][NOTE 3] [id number], [place] [address]- 2424 Sep, [facility] [place] [address] [id number] [place] [id number] Sep, [facility] [place] [address] [id number], [place] [id number] Sep, [facility] [place] [address] [id number], [place] 032636614 Sep, [facility] [place] [facility] [address] [facility][NOTE 3] [id number], [place] 17[place]- 1303 Sep, [facility] [place] [facility] [address] [facility][NOTE 3] [id number], [place] [address]- 7286 Sep, [facility] [place] [facility] [address] [facility][NOTE 3] [id number][place]17[place]- 3535 Sep, [facility] [place] [address] [facility] [id number], [place] 324480320 Aug, [facility] [place] [facility] [address] [facility][NOTE 3] [id number], [place] [address]- 5636 Aug, [facility] [place] [address] [facility] [id number], [place] [id number] Aug, [facility] [place] [facility] [address] [facility][NOTE 3] [id number][place]39[place]- 4714 Aug, [facility] [place] [facility] [address] [facility][NOTE 3] [id number], [place] [address]- 6866 Aug, [facility] [place] [address] [id number], [place] 535704872 Aug, [facility] [place] [address] [facility] [id number], [place] 364547933 Aug, [facility] [place] [facility] [address] [facility][NOTE 3] [id number], [place] [address]- 4772 Aug, [facility] [place] [address] [id number] [place] 516870126 Aug, [facility] [place] [address] [id number] [place] 76[place]21293 Jul, [facility] [place] [address] [id number] [place] [id number] Jun, [facility] [place] [address] [id number] [place] [id number] May, [facility] [place] [address] [id number] [place] [id number] May, [facility] [place] [address] [id number] [place] 901231241 May, [facility] [place] [address] [id number] [place] 160514765 May, [facility] [place] [address] [id number] [place] 612493679 May, [facility] [place] [address] [id number] [place] 012253667 May, [facility] [place] [address] [id number] [place] 677053099 May, [facility] [place] [address] [id number] [place] 917529825 Apr, [facility] [place] [address] [id number] [place] 453469157 Apr, [facility] [place] [address] [id number] [place] 082903880 Apr, [facility] [place] [address] [id number] [place] 421729152 Apr, [facility] [place] [address] [id number] [place] 576253247 Apr, [facility] [place] [address] [id number] [place] 445931096 Apr, [facility] [place] [address] [id number] [place] [id number] March, [facility] [place] [address] [id number] [place] 527976433 March, [facility] [place] [address] [id number] [place] 018394993 Feb, [facility] [place] [address] [id number] [place] [id number] 16 Feb, 2012 [facility] [place] [address] [id number] [place] [id number] Feb, [facility] [place] [address] [id number] [place] 278861523 Jan, [facility] [place] [address] [id number] [place] [id number] Jan, [facility] [place] [address] [id number] [place] [id number] 15 Jan, 2012 [facility] [place] [address] [id number] [place] [id number] Jan, [facility] [place] [address] [id number] [place] 814286410 Dec, [facility] [address]00565100[place], [place] [address]- 0766 Dec, [facility] [place] [address] [id number] [place] 177854239 Dec, [facility] [place] [address] [id number] [place] 815912928 Nov, [facility] [place] [address] [id number] [place] 649283308 Nov, [facility] [place] [address] [id number] [place] [id number] Nov, [facility] [address] [id number], [place] [address]- 9769 Oct, [facility] [id number] [place] [address] 62235502- 8390 Oct, [facility] [id number] [place] [address]336- 6848 Oct, [facility] [id number] [place] [address] 131683- 5800 Aug, [facility] [address] [id number], [place] 190142- 8031 Aug, [facility] [place] [facility] [address] [id number] [place] [address]- 0043 Aug, [facility] [address] [id number] [place] [address]- 1579 March, [facility] [place] [facility] [address] [id number] [place] [address]- 3870 Oct, [facility] [place] [facility] [address] [id number] [place] [address]- 2848 Oct, [facility] [place] [facility] [address] [id number] [place] [address]- 2200 Sep, [facility] [place] [facility] [address] [id number] [place] [address]- 8437 Sep, [facility] [place] [facility] [address] [id number] [place] [address]- 0200 Sep, [facility] [place] [facility] [address] [id number] [place] [address]- 7296 Aug, [facility] [place] [facility] [address] [id number] [place] [address]- 2891 Aug, [facility] [place] [facility] [address] [id number] [place] [address]- 8500 Jun, [facility] [place] [facility] [address] [id number] [place] [address]- 1247 May, [facility] [place] [facility] [address] [id number] [place] [address]- 4992 Jan, [facility] [place] [facility] [address] [id number] [place] [address]- 8768 Nov, [facility] [place] [facility] [address] [id number] [place] [address]- 2549 Oct, [facility] [place] [facility] [address] [id number] [place] [address]- 7464 Sep, [facility] [place] [facility] [address] [id number] [place] [address]- 0715 Sep, [facility] [address] [facility]NOTE 3] [id number], [place] [address]- 0870 Sep, [facility] [address] [id number], [place] [address]- 4961 Sep, [facility] [address] [id number], [place] [address]- 4376 Sep, [facility] [address] [id number] 081543- 2785 Aug, [facility] [address] [id number], [place] [address]- 8854 Aug, [facility] [address] [id number], [place] [address]- 6098 Jul, [facility] [address] [id number], [place] [address]- 8885 Jun, IMMUNIZATIONS No Known Immunizations SOCIAL HISTORY Never Assessed REASON FOR VISIT [facility] [place] PLAN OF CARE VITAL SIGNS MEDICATIONS Unknown [...] 08/2016 Hospitalization History chest pain ED visit [facility], pt scheduled for heart cath on May Hospitalization History [facility] 2012 Hospitalization History Chest pain-[facility] 12/22/16
--- OUTSIDE RECORDS SUMMARY | 2019-03-21 19:02 | XMS REPORT ---
Author Author Migration, Doctor Organization [facility] Address Unknown Phone Unavailable Care Team Providers Care [employer] Installer Name Role Phone Migration, Doctor Unavailable Unavailable PROBLEMS Type Condition ICD9-CM Code KYP19-FB Code Onset Dates Condition Status SNOMED Code Problem Serum creatinine raised R79.89 Active 268342771 Problem Episodic mood disorder F39 Active 77274496 Problem Generalized anxiety disorder F41.1 Active 76223470 Problem Lumbago with sciatica, left side M54.42 Active 188885482 Problem Dyslipidemia E78.5 Active 018695061 Problem Other chronic pain G89.29 Active 01712085 Problem Polyneuropathy associated with underlying disease G63 Active 585713687 Problem Syncope, unspecified syncope type R55 Active 001599499 Problem Recurrent major depressive disorder, in partial remission F33.41 Active 79042714 Problem Other seasonal allergic rhinitis J30.2 Active 158919335 Problem Hammertoe of left foot M20.42 Active 638832121 Problem Lumbago with sciatica, right side M54.41 Active 805049497 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 470914260 Problem Type 2 diabetes mellitus with diabetic polyneuropathy E11.42 Active 01721746 Problem Stage 2 chronic kidney disease N18.2 Active 080889766 Problem Vitamin D deficiency E55.9 Active 79837605 ALLERGIES No Information ENCOUNTERS Encounter Location Date Diagnosis [place] [address], [place] [address] Jan, [facility] current use of insulin Z79.4 [place] [address], [place] [address] Jan, [place] [address] [place] [address] 61153- 4964 Jan, Type 2 diabetes mellitus with diabetic polyneuropathy E11.42 [place] [address], [place] [address] Jan, [facility] [address], [place] [address] Jan, Type 2 diabetes mellitus with diabetic polyneuropathy E11.42 [facility] [address] [place] [address] 70041- 7477 Dec, 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 [facility] [id number] [place] [address] 30827- 5925 Dec, [facility] current use of insulin Z79.4 [place] [address] [place] [address] 98257- 8201 Dec, [place] [address] [id number] [place] [address] 35208- 1271 Nov, Hammertoe of left foot M20.42 ; Peroneal tendonitis of left lower extremity M76.72 ; Callus of foot L84 and Type 2 diabetes mellitus with diabetic polyneuropathy E11.42 [place] [address] [place] [address] 69270- 2097 Nov, [place] [id number] [place] [address] 76748- 1472 Nov, Encounter for immunization Z23 [facility] [id number] [place] [address] 06836- 6683 Oct, [facility] [address] [place] [address] 56170- 2145 Oct, [facility] [address] [place] [address] 74396- 3448 Oct, Acute pancreatitis, unspecified complication status, unspecified pancreatitis type K85.90 [facility] [address] [place] [address] 88037- 0124 Sep, 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 [facility] [address] [place] [address] 97562- 5386 Sep, [place] [address] [place] [address] 26875- 0454 Sep, Type 2 diabetes mellitus with diabetic polyneuropathy E11.42 ; Stage 2 chronic kidney disease N18.2 and Recurrent major depressive disorder, in partial remission F33.41 [place] [id number] [place] [address] 28969- 8866 Sep, [facility] current use of insulin Z79.4 [place] [id number] [place] [address] 71865- 6208 Sep, Acute maxillary sinusitis, recurrence not specified J01.00 and Bronchiolitis J21.9 [place] [address] 46691- 2583 17 Jul, 2018 [place] [address] [address] [id number] [place] [address] 60775- 4818 Jun, Type 2 diabetes mellitus with diabetic polyneuropathy E11.42 ; Open wound T14.8XXA ; 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 ; Stage 2 chronic kidney disease N18.2 and Episodic mood disorder F39 [place] [id number] [place] [address] 09349- 7486 May, [place] [id number] [place] [address] 14718- 7470 March, [place] [id number] [place] [address] 84308- 1540 March, Type 2 diabetes mellitus with diabetic [...] H60.502 and Non-adherence to medical treatment Z91.[address] [id number] [id number] Feb, Dental examination Z01.20 [facility] [address], [place] [address] 9247 Feb, Labile hypertension R09.89 ; Syncope, unspecified syncope type R55 ; Chest pain, unspecified type R07.9 and Dyslipidemia E78.5 [place] [id number] [place] [address] 73267- 5331 Feb, [facility] [id number] [place] [address] 86667- 2771 Jan, [facility] [place] [address] [place] [address] [id number] [place] [address] [id number] Jan, Dental examination Z01.20 [facility] [id number] [place] [address] 32383- 5483 Jan, Acute non-recurrent maxillary sinusitis J01.00 and Dyslipidemia E78.[address] [id number] [place] [address] [id number] Jan, Dental examination Z01.20 and Dental caries K02.[address] [id number][place] [id number] Jan, [facility] [address] [place] [address] [id number] [place] [address] [id number] Dec, Dental examination Z01.20 [facility] WALK IN 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 ; Polyneuropathy associated with underlying disease G63 ; Stage 2 chronic kidney disease N18.2 and Syncope, unspecified syncope type R55 [place] [address] 75353- 0717 Oct, Type 2 diabetes mellitus with diabetic polyneuropathy E11.42 ; Acute otitis externa of left ear, unspecified type H60.502 ; Overweight (BMI 25.0-29.9) E66.3 ; Dyslipidemia E78.5 and Polyneuropathy associated with underlying disease G63 [place] [address] 24803- 3434 Sep, [place] [address] 21433- 7032 Aug, Abnormal mammogram R92.8 [place] [address] 74914- 2495 Aug, Type 2 diabetes mellitus with diabetic polyneuropathy E11.42 [place] [address] 17209- 3480 Aug, [place] [address] 87039- 6787 Aug, Type 2 diabetes mellitus with diabetic polyneuropathy E11.42 ; Syncope, unspecified syncope type R55 ; Other chronic pain G89.29 and Encounter for immunization Z23 [place] [address] 20795- 6756 Aug, Type 2 diabetes mellitus with diabetic polyneuropathy E11.42 [place] [address] [id number] [place] [address] 66287- 1084 Jul, Type 2 diabetes mellitus with diabetic polyneuropathy E11.42 and Serum creatinine raised R79.89 [place] [address] 27953- 7689 Jul, Type 2 diabetes mellitus with diabetic polyneuropathy E11.42 and Serum creatinine raised R79.89 [place] [address] 41869- 9149 May, [place] [address] [address]- 9897 May, [place] [id number] [place] [address] 00451- 2881 May, Head injury, initial encounter S09.90XA ; Facial pain R51 ; Neck pain M54.2 and Fall, initial encounter W19.XXXA [place] [id number] [place] [address] 29968- 9099 May, Type 2 diabetes mellitus with diabetic polyneuropathy E11.42 [place] [address] [id number] [place] [address] 77311- 1722 May, [place] [id number] [place] [address] 82632- 7584 May, Type 2 diabetes mellitus with diabetic polyneuropathy E11.42 [place] [address] [id number] [place] [address] 82945- 6886 May, Dyslipidemia E78.5 ; 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 ; Type 2 diabetes mellitus with diabetic polyneuropathy E11.42 ; Generalized anxiety disorder F41.1 and Other seasonal allergic rhinitis J30.2 [place] [address] [place] [address] 68578- 9361 Apr, Type 2 diabetes mellitus with diabetic polyneuropathy E11.42 [place] [address] [place] [address] 28610- 1695 March, [place] [address] [place] [address] 69492- 9457 March, Abnormal mammogram R92.8 [place] [address] [id number] [place] [address] 90423- 8089 Feb, Abnormal mammogram R92.8 [place] [address] [place] [address] 63564- 8143 Feb, Diabetes type 2, uncontrolled E11.65 [place] [address] [address]- 6012 06 Feb, 2017 Screening for breast cancer Z12.39 [place] [address], [place] [address]- 4220 27 Jan, 2017 Screening for breast cancer Z12.39 [place] [address] [place] [address] 65262- 7537 Jan, Type 2 diabetes mellitus with diabetic polyneuropathy E11.42 ; 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 ; Other viral agents as the cause of diseases classified elsewhere B97.89 and Acute upper respiratory infection, unspecified J06.9 [place] [address] [place] [address] 15061- 6741 Jan, [place] [id number] [place] [address] 35649- 8650 17 Dec, 2016 Diabetes type 2, uncontrolled E11.65 ; Dyslipidemia E78.5 ; Generalized anxiety disorder F41.1 ; Depression, unspecified depression type F32.9 ; MCC current use of insulin Z79.4 and Polyneuropathy associated with underlying disease G63 [place] [address], [place] [address]- 3608 16 Dec, 2016 [place] [address], [place] [address]- 9535 14 Dec, 2016 [place] [address] [address]- 3061 Dec, [place] [address] [address]- 7424 Dec, [place] [address] [id number] [place] [address] 09463- 7610 Oct, Well woman exam Z01.419 ; Screening for breast cancer Z12.39 ; MCC current use of insulin Z79.4 ; Type 2 diabetes mellitus without complications E11.9 and Encounter for immunization Z23 [place] [address] [id number] [place] [address] 09212- 3296 Sep, [place] [id number] [place] [address] 81911- 8338 Sep, Diabetes type 2, uncontrolled E11.65 ; Dyslipidemia E78.5 and Depression, unspecified depression type F32.9 [place] [address] [id number] [place] [address] 03560- 0885 Aug, Diabetes type 2, uncontrolled E11.65 ; Encounter for immunization Z23 ; Nasal congestion R09.81 and Ear pressure, bilateral H93.8X3 [place] [address] 29419- 7497 Jul, Eustachian tube dysfunction, left H69.82 [place] [address] [id number] [place] [address] 36241- 8866 Jun, [place] [address] 16890- 3072 Jun, Hospital discharge follow-up Z09 ; Syncope, unspecified syncope type R55 and Acute suppurative otitis media of left ear without spontaneous rupture of tympanic membrane, recurrence not specified H66.002 [place] [id number] [place] [address] 34713- 1514 May, [place] [id number] [place] [address] 44338- 6974 May, [place] [id number] [place] [address] 33251- 4221 May, [place] [address] [id number] [place] [address] 60243- 2048 May, Diabetes type 2, uncontrolled E11.65 ; [...] disturbance G47.9 and Generalized anxiety disorder F41.1 [facility] [address], [place] [address] 2546 March, [facility] [place] [id number] [place] [address] [id number] March, Syncope, unspecified syncope type R55 and Depression, unspecified depression type F32.9 [facility] [place] [address] [id number] [place] [address] [id number] March, Orthostatic hypotension I95.1 [facility] [place] [id number] [place] [address] [id number] March, [facility] [address] [address]- 2546 March, [facility] [place] [id number] [place] [address] [id number] Feb, [facility] [place] [address] [id number] [id number] Feb, Dental examination Z01.20 [facility] [place] [id number] [place] [address] [id number] Jan, [facility] [id number] [place] [address] [id number] Jan, [facility] [id number] [place] [address] [id number] Dec, Diabetes type 2, uncontrolled E11.65 [facility] [id number] [place] [address] [id number] Nov, [facility] [place] [address] [id number][place] [id number] Nov, Encounter for dental examination Z01.20 [facility] [place] [address] [id number][place] [id number] Nov, Dental examination Z01.20 [facility] [place] [id number], [place] [id number] Sep, Diabetes type 2, uncontrolled E11.[address] [facility] [place] [address] [id number] [place] [id number] Sep, Encounter for dental examination Z01.20 and Dental caries, unspecified K02.9 [facility] [place] [id number], [place] [id number] Sep, Bipolar 2 disorder F31.81 [facility] [place] [id number], [place] [id number] Aug, [facility] [id number], [place] [id number] Aug, Follow up V67.9 [facility] [address] [address]- 1732 Jul, Bipolar disorder, unspecified 296.80 [facility] [place] [id number], [place] [address] Jul, Thyroid enlarged 240.9 and Bipolar disorder, unspecified 296.80 [facility] [address] [id number] Jun, Diabetes mellitus type 2, uncontrolled 250.02 ; Bipolar disorder, unspecified 296.80 and Rash 782.1 [facility] [place] [id number], [place] [id number] Jun, [facility] [place] [id number], [place] [address] May, Urinary tract infection 599.0 [facility] [place] [id number], [place] [address] May, Urinary tract infection 599.0 [facility] [place] [id number], [place] [id number] May, [facility] [place] [id number], [place] [id number] May, Diabetes mellitus type 2, uncontrolled 250.02 and Pica in adults 307.52 [facility] [place] [id number], [place] [id number] Apr, Follow up V67.9 and Diabetes mellitus type 2, uncontrolled 250.02 [facility] [place] [address] [id number] Apr, [facility] [address], [place] [address]- 2546 Apr, [facility] [id number], [place] [id number] Apr, Hyperlipidemia 272.4 [facility] [address] [id number] [id number] March, Diabetes type 2, uncontrolled 250.02 [facility] [id number] [place] [address] [id number] March, Diabetes mellitus type 2, uncontrolled 250.02 [facility] [id number], [place] [id number] March, Diabetes type 2, uncontrolled 250.02 [facility] [id number] [place] [address] [id number] March, [facility] [id number], [place] [id number] March, [facility] [id number], [place] [address] Feb, [facility] [place] [facility] [address], [place] [address]- 2546 Feb, [facility] [place] [facility] [address], [place] [address]- 2546 Feb, [facility] [address] [id number], [place] [id number] Jan, [facility] [place] [facility] [address], [place] [address]- 2546 Jan, [facility] [place] [facility] [id number] [address]- 2546 Jan, [facility] [address] [id number], [place] [id number] Jan, [facility] [place] [facility] [address], [place] [address]- 2546 Jan, [facility] [place] [facility] [address], [place] [address]- 2496 Jan, [facility] [address] [facility][1] [id number], [place] [id number] Jan, [facility] [place] [facility] [address] [facility] [id number] [address]- 8729 Jan, [facility] [place] [facility] [id number] [address]- 6451 Dec, [facility] [address] [facility][1] [id number] [place] [id number] Dec, [facility] [place] [facility] [id number] [address]- 0528 Dec, [facility] [address] [facility][1] [id number] [place] [id number] Dec, [facility] [place] [facility] [id number] [address]- 7446 Dec, [facility] [address] [id number], [place] [id number] Dec, [facility] [place] [facility] [address], [place] [address]- 5084 Dec, [facility] [place] [facility] [address], [place] [address]- 8375 Dec, [facility] [address] [id number], [place] [id number] Dec, [facility] [address] [id number], [place] [id number] Dec, [facility] [place] [facility] [address], [place] [address]- 1348 Dec, [facility] [place] [facility] [address] [facility] [id number][place] [address]- 3995 Nov, [facility] [place] [facility] [address] [facility] [id number] [address]- 9212 Oct, [facility] [place] [facility] [id number]- 7767 Oct, [facility] [address] [facility][1] [id number], [place] [id number] Sep, [facility] [address] [id number][place] [address]- 0866 Sep, [facility] [address] [id number], [place] [id number] Sep, [facility] [place] [facility] [address] [facility] [id number][place] [address]- 2542 Sep, [facility] [address] [facility][1] [id number], [place] [id number] Aug, [facility] [place] [facility] [address] [facility] [id number], [place] [address]- 9734 Aug, [facility] [address] [facility][1] [id number], [place] [id number] Aug, [facility] [place] [facility] [address] [address]- 0600 Aug, [facility] [place] [facility] [address], [place]- 4689 Jul, [facility] [place] [facility] [address] [facility] [id number][place] [address]- 3214 Jul, [facility] [address] [facility][1] [id number], [place] [id number] Jul, [facility] [place] [facility] [id number] [address]- 4710 Jul, [facility] [address] [facility][1] [id number], [place] [id number] Jun, [facility] [address] [facility][1] [id number], [place] [id number] Jun, [facility] [place] [facility] [address] [facility] [id number], [place] 796879- 6796 Jun, [facility] [place] [facility] [address] [facility] [id number], [place] [address]- 1115 Jun, [facility] [address] [facility][1] [id number], [place] [id number] Jun, [facility] [place] [facility] [address] [id number] [place] [address]- 6876 Jun, [facility] [address] [id number] [place] [id number] May, [facility] [place] [facility] [address] [id number] [place] [address]- 6226 May, [facility] [place] [facility] [address] [facility] [id number] [place] [address]- 5107 Apr, [facility] [place] [facility] [address] [id number] [place] [address]- 0706 Apr, [facility] [address] [facility][1] [id number] [place] [id number] Apr, [facility] [place] [facility] [address] [facility] [id number] [place] [address]- 6536 Apr, [facility] [place] [facility] [address] [facility] [id number] [place] [address]- 2314 Apr, [facility] [address] [facility][1] [id number], [place] [id number] March, [facility] [place] [facility] [address] [facility] [id number] [place] [address]- 1268 March, [facility] [place] [facility] [address] [facility] [id number][place] [address]- 9639 March, [facility] [address] [facility][1] [id number], [place] [id number] March, [facility] [place] [facility] [address] [facility] [id number][place] [address] March, [facility] [address] [facility][1] [id number] [place] [id number] March, [facility] [place] [facility] [address] [facility] [id number] [place] [address] March, [facility] [address] [facility][1] [id number] [place] [id number] Feb, [facility] [place] [facility] [address] [facility] [id number] [place] [address] Feb, [facility] [place] [facility] [address] [facility] [id number] [place] [address] Jan, [facility] [address] [id number] [place] [id number] Jan, [facility] [place] [facility] [address] [facility] [id number] [place] [address] Jan, [facility] [place] [facility] [address] [facility] [id number][place] [address] Jan, [facility] [address] [id number] [place] [id number] Jan, [facility] [address] [id number] [place] [id number] Dec, [facility] [place] [facility] [address] [facility] [id number], [place] [address] Dec, [facility] [place] [facility] [address] [id number], [place] [address] Dec, [facility] [address] [id number] [place] [id number] Dec, [facility] [place] [facility] [address] [facility] [id number], [place] [address] Dec, [facility] [address] [facility][1] [id number][place] [id number] Dec, [facility] [place] [facility] [id number] [address] Dec, [facility] [place] [facility] [address] [facility] [id number] [address] Dec, [facility] [place] [address] [id number] [place] [id number] Dec, [facility] [place] [address] [facility][1] [id number] [place] [id number] Nov, [facility] [place] [facility] [address] [facility] [id number], [place] [address] Nov, [facility] [place] [facility] [address] [id number], [place] [address] Nov, [facility] [place] [address] [id number] [place] [id number] Nov, [facility] [place] [address] [id number] [place] [id number] Oct, [facility] [place] [facility] [address] [id number], [place] [address] Oct, [facility] [place] [address] [id number] [place] [id number] Oct, [facility] [place] [facility] [address] [id number] [place] [address] Oct, [facility] [place] [facility] [address] [facility] [id number] [address] Oct, [facility] [place] [facility] [address] [facility] [id number], [place] [address] Oct, [facility] [place] [address] [facility][1] [id number][place] [id number] Oct, [facility] [place] [facility] [address] [facility] [id number], [place] [address] Oct, [facility] [place] [facility] [address] [facility] [id number], [place] [address] 24[address] Sep, [facility] [place] [facility] [address] [facility] [id number], [place] [address] Sep, [facility] [place] [address] [id number][place] [id number] Sep, [facility] [place] [facility] [address] [facility] [id number], [place] [address] Sep, [facility] [place] [facility] [address] [facility] [id number], [place] [address] Sep, [facility] [place] [address] [id number][place] [id number] Sep, [facility] [place] [address] [id number][place] [id number] Aug, [facility] [place] [facility] [address] [facility] [id number] [address] Aug, [facility] [place] [facility] [address] [facility] [id number] [address]56 Aug, [facility] [address] [id number][place] [id number] Aug, [facility] [place] [address] [id number][place] [id number] Aug, [facility] [place] [facility] [address] [facility] [id number] [place] [address]- [address]287 Aug, [facility] [place] [facility] [address] [facility] [id number] [place] [address]- 6299 Aug, [facility] [place] [facility] [address] [facility] [id number], [place] [address] Aug, [facility] [place] [address] [facility][1] [id number][place] [id number] Jul, [facility] [place] [facility] [address] [facility] [id number], [place] [address] Jul, [facility] [place] [facility] [address] [facility] [id number], [place] [address] 9[address] Jul, [facility] [place] [address] [facility][1] [id number], [place] [id number] Jul, [facility] [place] [address] [facility][1] [id number], [place] [id number] Jul, [facility] [place] [facility] [address] [facility] [id number], [place] [address] 2896 May, [facility] [place] [facility] [address] [facility] [id number], [place] [address] Apr, [facility] [address] [facility][1] [id number], [place] [id number] Apr, [facility] [place] [address] [facility][1] [id number], [place] [id number] Apr, [facility] [place] [facility] [address] [facility] [id number], [place] [address] March, [facility] [place] [address] [id number] [place] [id number] March, [facility] [place] [address] [id number] [place] [id number] March, [facility] [place] [address] [id number] [place] [id number] March, [facility] [place] [address] [id number] [place] [id number] March, [facility] [place] [address] [id number] [place] [id number] March, [facility] [address] [facility] [id number], [place] [address] March, [facility] [address] [facility] [id number], [place] [address] March, [facility] [address] [id number], [place] [address] Feb, [facility] [place] [address] [id number] [place] [id number] Feb, [facility] [place] [address] [id number] [place] [id number] Feb, [facility] [place] [address] [id number] [place] [id number] Feb, [facility] [id number], [place] [address] Feb, [facility] [place] [address] [id number] [place] [id number] Feb, [facility] [place] [address] [id number] [place] [id number] Jan, [facility] [place] [address] [id number] [place] [id number] Jan, [facility] [place] [address] [id number] [place] [address]94[address] Dec, [facility] [place] [address] [id number] [place] [id number] Dec, [facility] [address] [id number], [place] [address]79 Dec, [facility] [place] [address] [id number] [id number] Dec, [facility] [place] [address] [id number] [place] [id number] Dec, [facility] [place] [address] [id number] [place] [id number] Dec, [facility] [place] [address] [id number] [place] [id number] Dec, [facility] [address] [id number], [place] [address] Nov, [facility] [place] [address] [id number] [place] [id number] Nov, [facility] [place] [address] [id number] [place] [id number] Nov, [facility] [place] [address] [id number] [place] [id number] Nov, [facility] [place] [address] [id number] [place] [id number] Nov, [facility] [address] [facility] [id number], [place] [address] Oct, [facility] [place] [address] [id number] [place] [id number] Oct, [facility] [place] [address] [id number] [place] [id number] Oct, [facility] [place] [address] [id number], [place] [id number] Oct, [facility] [address] [facility] [id number], [place] [address]- 47[address] Oct, [facility] [place] [facility] [address] [facility] [id number], [place] [address]- 8706 Oct, [facility] [place] [facility] [address] [facility] [id number], [place] 42303127- 8612 Oct, [facility] [place] [address] [id number], [place] 829594123 Sep, [facility] [place] [facility] [address] [facility] [id number], [place] [address]- [address]95 Sep, [facility] [place] [facility] [address] [facility] [id number], [place] [address]- 0018 Sep, [facility] [address] [id number] [place] [id number] Sep, [facility] [place] [address] [id number], [place] [id number] Sep, [facility] [place] [address] [id number], [place] 811183100 Sep, [facility] [place] [facility] [address] [facility] [id number], [place] 225938- 7706 Sep, [facility] [place] [facility] [address] [facility] [id number], [place] [address]- 6561 Sep, [facility] [place] [facility] [address] [facility] [id number], [place] 295003- 5830 Sep, [facility] [place] [address] [facility][1] [id number], [place] [id number] Aug, [facility] [place] [facility] [address] [facility] [id number], [place] [address]- 1929 Aug, [facility] [place] [address] [facility][1] [id number], [place] [id number] Aug, [facility] [place] [facility] [address] [facility] [id number], [place] 61[place]- 6168 Aug, [facility] [place] [facility] [address] [facility] [id number], [place] [address]- 9937 Aug, [facility] [address] [id number], [place] [id number] Aug, [facility] [place] [address] [facility][1] [id number], [place] [id number] Aug, [facility] [place] [facility] [address] [facility] [id number], [place] [address]- 5728 Aug, [facility] [place] [address] [id number] [place] [id number] Aug, [facility] [place] [address] [id number] [place] [address]60573449 Jul, [facility] [place] [address] [id number] [place] [id number] Jun, [facility] [place] [address] [id number] [place] [id number] May, [facility] [place] [address] [id number] [place] 916383778 May, [facility] [place] [address] [id number] [place] 0[place]181440 May, [facility] [place] [address] [id number] [place] [id number] May, [facility] [place] [address] [id number] [place] 969393499 May, [facility] [place] [address] [id number] [place] 010153892 May, [facility] [place] [address] [id number] [place] 423162364 May, [facility] [address] [id number] [place] 552879449 Apr, [facility] [place] [address] [id number] [place] [id number] Apr, [facility] [place] [address] [id number] [place] 450353559 Apr, [facility] [place] [address] [id number] [place] 011412861 Apr, [facility] [place] [address] [id number] [place] 720121709 Apr, [facility] [place] [address] [id number] [place] 453980047 Apr, [facility] [place] [address] [id number] [place] 625699646 March, [facility] [place] [address] [id number] [place] [id number] March, [facility] [place] [address] [id number] [place] [id number] Feb, [facility] [place] [address] [id number] [place] [id number] 16 Feb, 2012 [facility] [place] [address] [id number] [place] 404591881 Feb, [facility] [place] [address] [id number] [place] 016404806 Jan, [facility] [place] [address] [id number] [place] 724876098 Jan, [facility] [place] [address] [id number] [place] [id number] 15 Jan, 2012 [facility] [place] [address] [id number] [place] [id number] Jan, [facility] [place] [address] [id number] [place] Dec, [facility] [id number], [place] [address]- [address]598 Dec, [facility] [place] [address] [id number] [id number] Dec, [facility] [place] [address] [id number] [place] [id number] Nov, [facility] [place] [address] [id number] [place] [id number] Nov, [facility] [place] [address] [id number] [place] [id number] Nov, [facility] [address] [id number], [place] [address]- 3848 Oct, [facility] [id number] [place] [address] 80414910- 2371 Oct, [facility] [id number] [place] [address] 776706- 5932 Oct, [facility] [id number] [place] [address]483- 5846 Aug, [facility] [address] [id number]- 9562 Aug, [facility] [place] [facility] [address] [id number] [place] [address]- 6602 Aug, [facility] [address] [id number] [place] [address]- 1809 March, [facility] [place] [facility] [address] [id number] [place] [address]- 4326 Oct, [facility] [place] [facility] [address] [id number] [place] [address]- 4867 Oct, [facility] [place] [facility] [address] [id number] [place] [address]- 6349 Sep, [facility] [place] [facility] [address] [id number] [place] [address]- 8867 Sep, [facility] [place] [facility] [address] [id number] [place] [address]- 1419 Sep, [facility] [place] [facility] [address] [id number] [place] [address]- 9501 Aug, [facility] [place] [facility] [address] [id number] [place] [address]- 8863 Aug, [facility] [place] [facility] [address] [id number] [place] [address]- 7286 Jun, [facility] [place] [facility] [address] [id number] [place] [address]- 0998 May, [facility] [place] [facility] [address] [id number] [place] [address]- 6442 Jan, [facility] [place] [facility] [address] [id number] [place] [address]- 0336 Nov, [facility] [place] [facility] [address] [id number] [place] [address]- 3344 Oct, [facility] [place] [facility] [address] [id number] [place] [address]- 9370 Sep, [facility] [place] [facility] [address] [id number] [place] [address]- 7872 Sep, [facility] [address] [facility] [id number], [place] [address]- 8064 Sep, [facility] [address] [id number], [place] [address]- 0823 Sep, [facility] [address] [id number], [place] [address]- 3463 Sep, [facility] [address] [id number]- 8494 Aug, [facility] [address] [id number], [place] [address]- 4601 Aug, [facility] [address] [id number], [place] [address]- 0834 Jul, [facility] [address] [id number], [place] [address]- 9140 Jun, IMMUNIZATIONS No Known Immunizations SOCIAL HISTORY Never Assessed REASON FOR VISIT [facility] PLAN OF CARE VITAL SIGNS MEDICATIONS Unknown [...] 08/2016 Hospitalization History chest pain ED visit [facility], pt scheduled for heart cath on May Hospitalization History [facility] 2012 Hospitalization History Chest pain-[facility] 12/22/16
--- OUTSIDE RECORDS SUMMARY | 2019-03-21 19:02 | XMS REPORT ---
Author Author Migration, Doctor Organization [facility] Address Unknown Phone Unavailable Care Team Providers Care Measurement Psychologist Name Role Phone Migration, Doctor Unavailable Unavailable PROBLEMS Type Condition ICD9-CM Code [id number] Code Onset Dates Condition Status SNOMED Code Problem Serum creatinine raised R79.89 Active 013712178 Problem Episodic mood disorder F39 Active 53866792 Problem Generalized anxiety disorder F41.1 Active 32327300 Problem Lumbago with sciatica, left side M54.42 Active 731728493 Problem Dyslipidemia E78.5 Active 694099734 Problem Other chronic pain G89.29 Active 47851316 Problem Polyneuropathy associated with underlying disease G63 Active 761162978 Problem Syncope, unspecified syncope type R55 Active 658325042 Problem Recurrent major depressive disorder, in partial remission F33.41 Active 59738415 Problem Other seasonal allergic rhinitis J30.2 Active 391221837 Problem Hammertoe of left foot M20.42 Active 203449220 Problem Lumbago with sciatica, right side M54.41 Active 990304683 Problem 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 frame tender current use of insulin Z79.4 Active 144479408 Problem Type 2 diabetes mellitus with diabetic polyneuropathy E11.42 Active 55459920 Problem Stage 2 chronic kidney disease N18.2 Active 375106472 Problem Vitamin D deficiency E55.9 Active 26393299 ALLERGIES No Information ENCOUNTERS Encounter Location Date Diagnosis [place] [address] [address] Jan, [facility] current use of insulin Z79.4 [place] [address], [place] [address] Jan, [place] [address] [place] [address] 57691- 1021 Jan, Type 2 diabetes mellitus with diabetic polyneuropathy E11.42 [place] [address] [address] Jan, [facility] [address] [address] 8[address] Jan, Type 2 diabetes mellitus with diabetic polyneuropathy E11.42 [facility] [address] [place] [address] 72781- 3763 Dec, 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 frame tender current use of insulin Z79.4 [facility] [address] [id number] [place] [address] 35701- 6043 Dec, [facility] current use of insulin Z79.4 [place] [address] [place] [address] 20299- 7680 Dec, [place] [address] [id number] [place] [address] 31514- 3994 Nov, Hammertoe of left foot M20.42 ; Peroneal tendonitis of left lower extremity M76.72 ; Callus of foot L84 and Type 2 diabetes mellitus with diabetic polyneuropathy E11.42 [place] [address] [place] [address] 38543- 0797 Nov, [place] [address] [place] [id number] [place] [address] 90847- 1778 Nov, Encounter for immunization Z23 [facility] [address] [id number] [place] [address] 96222- 2828 Oct, [facility] [address] [place] [address] 60982- 3923 Oct, [facility] [address] [place] [address] 20685- 0019 Oct, Acute pancreatitis, unspecified complication status, unspecified pancreatitis type K85.90 [facility] [address] [place] [address] 56505- 6156 Sep, 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 frame tender current use of insulin Z79.4 [facility] [address] [place] [address] 26932- 1965 Sep, [place] [address] [place] [address] 28262- 4431 Sep, Type 2 diabetes mellitus with diabetic polyneuropathy E11.42 ; Stage 2 chronic kidney disease N18.2 and Recurrent major depressive disorder, in partial remission F33.41 [place] [address] [place] [id number] [place] [address] 31099- 2313 Sep, [facility] current use of insulin Z79.4 [place] [address] [place] [id number] [place] [address] 80808- 2384 Sep, Acute maxillary sinusitis, recurrence not specified J01.00 and Bronchiolitis J21.9 [place] [address] 20454- 3984 17 Jul, 2018 [place] [address] [place] [id number] [place] [address] 09287- 8049 Jun, Type 2 diabetes mellitus with diabetic polyneuropathy E11.42 ; Open wound T14.8XXA ; 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 frame tender current use of insulin Z79.4 ; Stage 2 chronic kidney disease N18.2 and Episodic mood disorder F39 [place] [address] [place] [id number] [place] [address] 10880- 5065 May, [place] [address] [place] [id number] [place] [address] 28553- 6195 March, [place] [address] [place] [id number] [place] [address] 44501- 3975 March, Type 2 diabetes mellitus with diabetic [...] H60.502 and Non-adherence to medical treatment Z91.[address] [id number] [address] Feb, Dental examination Z01.20 [facility] [address] [address] Feb, Labile hypertension R09.89 ; Syncope, unspecified syncope type R55 ; Chest pain, unspecified type R07.9 and Dyslipidemia E78.5 [place] [address] [place] [id number] [place] [address] 46206- 6294 Feb, [facility] [address] [id number] [place] [address] 08652- 1357 Jan, [facility] [place] [address] [place] [address] [id number] [place] [id number] Jan, Dental examination Z01.20 [facility] [address] [place] [address] [id number] [place] [address] 95167- 9273 Jan, Acute non-recurrent maxillary sinusitis J01.00 and Dyslipidemia E78.[address] [id number] [place] [address] [id number] Jan, Dental examination Z01.20 and Dental caries K02.[address] [id number] [place] [id number] Jan, [facility] [address] [place] [address] [id number] [place] [address] [id number] Dec, Dental examination Z01.20 [facility] [address] [place] [address] 49644 -9604 Dec, Seasonal allergic rhinitis, unspecified trigger J30.2 [facility] [address] [place] [address] 20589- 0722 Nov, [place] [address] [place] [id number] [place] [address] 65012- 6551 Nov, Type 2 diabetes mellitus with diabetic polyneuropathy E11.42 ; Dyslipidemia E78.5 ; Lumbago with sciatica, right side M54.41 ; Lumbago with sciatica, left side M54.42 ; 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 frame tender current use of insulin Z79.4 ; Polyneuropathy associated with underlying disease G63 ; Stage 2 chronic kidney disease N18.2 and Syncope, unspecified syncope type R55 [place] [address] [address]- 6470 Oct, Type 2 diabetes mellitus with diabetic polyneuropathy E11.42 ; Acute otitis externa of left ear, unspecified type H60.502 ; Overweight (BMI 25.0-29.9) E66.3 ; Dyslipidemia E78.5 and Polyneuropathy associated with underlying disease G63 [place] [address] 8[address]25- 8313 Sep, [place] [address] 71203- 6319 Aug, Abnormal mammogram R92.8 [place] [address] 26481- 1352 Aug, Type 2 diabetes mellitus with diabetic polyneuropathy E11.42 [place] [address] 95248- 0695 Aug, [place] [address] 34675- 2834 Aug, Type 2 diabetes mellitus with diabetic polyneuropathy E11.42 ; Syncope, unspecified syncope type R55 ; Other chronic pain G89.29 and Encounter for immunization Z23 [place] [address] 40209- 2261 Aug, Type 2 diabetes mellitus with diabetic polyneuropathy E11.42 [place] [address] [place] [id number] [place] [address] 27773- 0675 Jul, Type 2 diabetes mellitus with diabetic polyneuropathy E11.42 and Serum creatinine raised R79.89 [place] [address] 18576- 6701 Jul, Type 2 diabetes mellitus with diabetic polyneuropathy E11.42 and Serum creatinine raised R79.89 [place] [address] 54903- 0446 May, [place] [address] [address]- 6749 May, [place] [address] [place] [address] [place] [address] 93263- 7348 May, Head injury, initial encounter S09.90XA ; Facial pain R51 ; Neck pain M54.2 and Fall, initial encounter W19.XXXA [place] [address] [place] [address] [place] [address] 39705- 6669 May, Type 2 diabetes mellitus with diabetic polyneuropathy E11.42 [place] [address] [place] [address] [place] [address] 59820- 1793 May, [place] [address] [place] [address] [place] [address] 14383- 2388 May, Type 2 diabetes mellitus with diabetic polyneuropathy E11.42 [place] [address] [place] [address] [place] [address] 51497- 2448 May, Dyslipidemia E78.5 ; 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 frame tender current use of insulin Z79.4 ; Type 2 diabetes mellitus with diabetic polyneuropathy E11.42 ; Generalized anxiety disorder F41.1 and Other seasonal allergic rhinitis J30.2 [place] [address] [place] [address] 16524- 7221 Apr, Type 2 diabetes mellitus with diabetic polyneuropathy E11.42 [place] [address] [place] [address] 18232- 8097 March, [place] [address] [place] [address] 49238- 9045 March, Abnormal mammogram R92.8 [place] [address] [place] [address] [place] [address] 98935- 1072 Feb, Abnormal mammogram R92.8 [place] [address] [place] [address] 23450- 0004 Feb, Diabetes type 2, uncontrolled E11.65 [place] [address] [address]- 2291 06 Feb, 2017 Screening for breast cancer Z12.39 [place] [address] [address]- 8128 27 Jan, 2017 Screening for breast cancer Z12.39 [place] [address] [place] [address] 34798- 8724 Jan, Type 2 diabetes mellitus with diabetic polyneuropathy E11.42 ; 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 frame tender current use of insulin Z79.4 ; Other viral agents as the cause of diseases classified elsewhere B97.89 and Acute upper respiratory infection, unspecified J06.9 [place] [address] [place] [address] 65146- 2747 Jan, [place] [address] [place] [address] [place] [address] 18975- 0585 17 Dec, 2016 Diabetes type 2, uncontrolled E11.65 ; Dyslipidemia E78.5 ; Generalized anxiety disorder F41.1 ; Depression, unspecified depression type F32.9 ; [facility] current use of insulin Z79.4 and Polyneuropathy associated with underlying disease G63 [place] [address] [address]- 3156 16 Dec, 2016 [place] [address] [address]- 5236 14 Dec, 2016 [place] [address] [address]- 4306 Dec, [place] [address] [address]- 0844 Dec, [place] [address] [place] [address] [place] [address] 11070- 3262 Oct, Well woman exam Z01.419 ; Screening for breast cancer Z12.39 ; [facility] current use of insulin Z79.4 ; Type 2 diabetes mellitus without complications E11.9 and Encounter for immunization Z23 [place] [address] [place] [address] [place] [address] 11402- 3047 Sep, [place] [address] [place] [address] [place] [address] 16340- 0147 Sep, Diabetes type 2, uncontrolled E11.65 ; Dyslipidemia E78.5 and Depression, unspecified depression type F32.9 [place] [address] [place] [address] [place] [address] 99476- 8234 Aug, Diabetes type 2, uncontrolled E11.65 ; Encounter for immunization Z23 ; Nasal congestion R09.81 and Ear pressure, bilateral H93.8X3 [place] [address] 93100- 1322 Jul, Eustachian tube dysfunction, left H69.82 [place] [address] [place] [address] [place] [address] 23203- 9059 Jun, [place] [address] 92675- 6742 Jun, Hospital discharge follow-up Z09 ; Syncope, unspecified syncope type R55 and Acute suppurative otitis media of left ear without spontaneous rupture of tympanic membrane, recurrence not specified H66.002 [place] [address] [place] [address] [place] [address] 39286- 9716 May, [place] [address] [place] [address] [place] [address] 58472- 7890 May, [place] [address] [place] [address] [place] [address] 10809- 3882 May, [place] [address] [place] [address] [place] [address] 96662- 8569 May, Diabetes type 2, uncontrolled E11.65 ; [...] disturbance G47.9 and Generalized anxiety disorder F41.1 [facility] [address] [address] 2546 March, [facility] [place] [id number] [place] [address] [id number] March, Syncope, unspecified syncope type R55 and Depression, unspecified depression type F32.9 [facility] [place] [address] [place] [id number] [place] [address] [id number] March, Orthostatic hypotension I95.1 [facility] [place] [id number] [place] [address] [id number] March, [facility] [address] [address]- 2546 March, [facility] [place] [id number] [place] [address] [id number] Feb, [facility] [address] [id number] [place] [address] Feb, Dental examination Z01.20 [facility] [place] [id number] [place] [address] [id number] Jan, [facility] [place] [id number] [place] [address] [id number] Jan, [facility] [place] [id number] [place] [address] [id number] Dec, Diabetes type 2, uncontrolled E11.65 [facility] [place] [id number] [place] [address] [id number] Nov, [facility] [address] [id number] [place] [id number] Nov, Encounter for dental examination Z01.20 [facility] [address] [id number] [place] [id number] Nov, Dental examination Z01.20 [facility] [place] [id number], [place] [id number] Sep, Diabetes type 2, uncontrolled E11.[address] [facility] [address] [id number] [place] [id number] Sep, Encounter for dental examination Z01.20 and Dental caries, unspecified K02.9 [facility] [place] [id number], [place] [address] Sep, Bipolar 2 disorder F31.81 [facility] [place] [id number], [place] [id number] Aug, [facility] [place] [id number], [place] [address] Aug, Follow up V67.9 [facility] [address] [address]- 4541 Jul, Bipolar disorder, unspecified 296.80 [facility] [place] [id number], [place] [address] Jul, Thyroid enlarged 240.9 and Bipolar disorder, unspecified 296.80 [facility] [address] [address] Jun, Diabetes mellitus type 2, uncontrolled 250.02 ; Bipolar disorder, unspecified 296.80 and Rash 782.1 [facility] [place] [id number], [place] [address] Jun, [facility] [place] [id number], [place] [address] May, Urinary tract infection 599.0 [facility] [place] [id number], [place] [address] May, Urinary tract infection 599.0 [facility] [place] [id number], [place] [id number] May, [facility] [place] [id number], [place] [address] May, Diabetes mellitus type 2, uncontrolled 250.02 and Pica in adults 307.52 [facility] [place] [id number], [place] [id number] Apr, Follow up V67.9 and Diabetes mellitus type 2, uncontrolled 250.02 [facility] [place] [address] [id number] Apr, [facility] [address] [address]- 2546 Apr, [facility] [place] [id number], [place] [address] Apr, Hyperlipidemia 272.4 [facility] [place] [address] [id number], [place] [address] March, Diabetes type 2, uncontrolled 250.02 [facility] [id number] [place] [address] [id number] March, Diabetes mellitus type 2, uncontrolled 250.02 [facility] [id number], [place] [address] March, Diabetes type 2, uncontrolled 250.02 [facility] [id number] [place] [address] [id number] March, [facility] [id number], [place] [address] March, [facility] [id number], [place] [address] Feb, [facility] [place] [facility] [address] [address]- 2546 Feb, [facility] [place] [facility] [address] [address]- 2546 Feb, [facility] [address] [place] [address] [id number], [place] [id number] Jan, [facility] [place] [facility] [address] [address]- 2546 Jan, [facility] [place] [facility] [address] [place] [id number] [address]- 2546 Jan, [facility] [address] [id number], [place] [id number] Jan, [facility] [place] [facility] [address] [address]- 2546 Jan, [facility] [place] [facility] [address] [address]- 4946 Jan, [facility] [address] [facility] [id number], [place] [id number] Jan, [facility] [place] [facility] [address] [facility] [id number] [address]- 0417 Jan, [facility] [place] [facility] [address] [id number] [address]- 5005 Dec, [facility] [address] [facility] [id number] [place] [id number] Dec, [facility] [place] [facility] [address] [id number] [address]- 2998 Dec, [facility] [address] [facility] [id number] [place] [id number] Dec, [facility] [place] [facility] [id number] [address]- 3396 Dec, [facility] [address] [id number], [place] 7160[address]756 Dec, [facility] [place] [facility] [address] [address]- 6365 Dec, [facility] [place] [facility] [address], [place] [address]- 9887 Dec, [facility] [address] [id number], [place] [address]858 Dec, [facility] [address] [id number], [place] 832[address]2294 Dec, [facility] [place] [facility] [address] [address]- 1751 Dec, [facility] [place] [facility] [address] [facility] [id number] [address]- 0682 Nov, [facility] [place] [facility] [address] [facility] [id number] [address]- 7630 Oct, [facility] [place] [facility] [id number]- 8152 Oct, [facility] [address] [facility] [id number], [place] [address] Sep, [facility] [address] [id number] [address]- 7396 Sep, [facility] [address] [id number], [place] [id number] Sep, [facility] [place] [facility] [address] [facility] [id number], [place] [address]- 9722 Sep, [facility] [address] [facility] [id number], [place] [id number] Aug, [facility] [place] [facility] [address] [facility] [id number], [place] [address]- 6256 Aug, [facility] [address] [facility] [id number], [place] [id number] Aug, [facility] [place] [facility] [address]00565100[place] [address]- 3094 Aug, [facility] [place] [facility] [address]- 1515 Jul, [facility] [place] [facility] [address] [facility] [id number], [place] [address]- 2929 Jul, [facility] [address] [facility] [id number], [place] [address] Jul, [facility] [place] [facility] [id number] [address]- 1692 Jul, [facility] [address] [facility] [id number], [place] [address]79[address]38 Jun, [facility] [address] [facility] [id number], [place] [id number] Jun, [facility] [place] [facility] [address] [facility] [id number][place]17[place]- 3171 Jun, [facility] [place] [facility] [address] [facility] [id number], [place] [address]- 6878 Jun, [facility] [address] [facility] [id number], [place] 376[address]233 Jun, [facility] [place] [facility] [address] [id number] [place] [address]- 6166 Jun, [facility] [address] [id number] [place] [id number] May, [facility] [place] [facility] [address] [id number] [place] [address]- 9086 May, [facility] [place] [facility] [address] [facility] [id number] [place] [address]- 9141 Apr, [facility] [place] [facility] [address] [id number] [place] [address] Apr, [facility] [address] [facility] [id number] [place] [id number] Apr, [facility] [place] [facility] [address] [facility] [id number] [place] [address] Apr, [facility] [place] [facility] [address] [facility] [id number] [place] [address] Apr, [facility] [address] [facility] [id number] [id number] March, [facility] [place] [facility] [address] [facility] [id number] [place] [address] March, [facility] [place] [facility] [address] [facility] [id number] [address] March, [facility] [address] [facility] [id number][place] [id number] March, [facility] [place] [facility] [address] [facility] [id number][place] [address] March, [facility] [address] [facility] [id number] [place] [id number] March, [facility] [place] [facility] [address] [facility] [id number] [place] [address] March, [facility] [address] [facility] [id number] [place] [id number] Feb, [facility] [place] [facility] [address] [facility] [id number] [place] [address] Feb, [facility] [place] [facility] [address] [facility] [id number] [place] [address] Jan, [facility] [address] [id number] [place] [id number] Jan, [facility] [place] [facility] [address] [facility] [id number] [place] [address] Jan, [facility] [place] [facility] [address] [facility] [id number], [place] [address] Jan, [facility] [address] [id number] [place] [id number] Jan, [facility] [address] [id number] [place] [id number] Dec, [facility] [place] [facility] [address] [facility] [id number], [place] [address] Dec, [facility] [place] [facility] [address] [id number], [place] [address] Dec, [facility] [address] [id number] [place] [id number] Dec, [facility] [place] [facility] [address] [facility] [id number], [place] [address] Dec, [facility] [address] [facility] [id number][place] [id number] Dec, [facility] [place] [facility] [id number] [address] Dec, [facility] [place] [facility] [address] [facility] [id number], [place] [address] Dec, [facility] [address] [id number] [place] [id number] Dec, [facility] [address] [facility] [id number] [place] [id number] Nov, [facility] [place] [facility] [address] [facility] [id number], [place] [address] Nov, [facility] [place] [facility] [address] [id number], [place] [address] Nov, [facility] [address] [id number] [place] [id number] Nov, [facility] [address] [id number] [place] [id number] Oct, [facility] [place] [facility] [address] [id number], [place] [address] Oct, [facility] [address] [id number] [place] [id number] Oct, [facility] [place] [facility] [address] [id number] [place] [address] Oct, [facility] [place] [facility] [address] [facility] [id number][place] [address] Oct, [facility] [place] [facility] [address] [facility] [id number], [place] [address] Oct, [facility] [address] [facility] [id number][place] [id number] Oct, [facility] [place] [facility] [address] [facility] [id number], [place] [address] Oct, [facility] [place] [facility] [address] [facility] [id number], [place] [address]6 Sep, [facility] [place] [facility] [address] [facility] [id number] [address] Sep, [facility] [address] [id number][place] [id number] Sep, [facility] [place] [facility] [address] [facility] [id number][place] [address] Sep, [facility] [place] [facility] [address] [facility] [id number][place] [address]686 Sep, [facility] [address] [id number][place] [address] Sep, [facility] [address] [id number][place] [address] Aug, [facility] [place] [facility] [address] [facility] [id number] [address] Aug, [facility] [place] [facility] [address] [facility] [id number][place] [address] Aug, [facility] [address] [id number][place] [id number] Aug, [facility] [address] [id number], [place] [id number] Aug, [facility] [place] [facility] [address] [facility] [id number] [place] [address] Aug, [facility] [place] [facility] [address] [facility] [id number] [place] [address] Aug, [facility] [place] [facility] [address] [facility] [id number], [place] [address] Aug, [facility] [address] [facility] [id number][place] [id number] Jul, [facility] [place] [facility] [address] [facility] [id number][place] [address]37 Jul, [facility] [place] [facility] [address] [facility] [id number][place] [address] Jul, [facility] [address] [facility] [id number][place] [id number] Jul, [facility] [address] [facility] [id number][place] [id number] Jul, [facility] [place] [facility] [address] [facility] [id number], [place] [address] May, [facility] [place] [facility] [address] [facility] [id number], [place] [address] Apr, [facility] [address] [facility] [id number][place] [id number] Apr, [facility] [address] [facility] [id number], [place] [id number] Apr, [facility] [place] [facility] [address] [facility] [id number][place] [address] March, [facility] [address] [id number] [place] [id number] March, [facility] [address] [id number] [place] [id number] March, [facility] [address] [id number] [id number] March, [facility] [address] [id number] [place] [id number] March, [facility] [address] [id number] [place] [id number] March, [facility] [address] [facility] [id number], [place] [address] March, [facility] [address] [facility] [id number] [address] March, [facility] [address] [id number], [place] [address] Feb, [facility] [address] [id number] [place] [id number] Feb, [facility] [address] [id number] [place] [id number] Feb, [facility] [address] [id number] [place] [address] Feb, [facility] [id number], [place] [address] Feb, [facility] [address] [id number] [place] [id number] Feb, [facility] [address] [id number] [place] [id number] Jan, [facility] [address] [id number] [id number] Jan, [facility] [address] [id number] [place] [id number] Dec, [facility] [address] [id number] [place] [id number] Dec, [facility] [address] [id number], [place] [address]229 Dec, [facility] [address] [id number] [place] [id number] Dec, [facility] [address] [id number] [place] [id number] Dec, [facility] [address] [id number] [place] [address] Dec, [facility] [address] [id number] [place] [id number] Dec, [facility] [address] [id number], [place] [address] Nov, [facility] [address] [id number] [place] [id number] Nov, [facility] [address] [id number] [place] [id number] Nov, [facility] [address] [id number] [place] [address] Nov, [facility] [address] [id number] [place] [address] Nov, [facility] [address] [facility] [id number], [place] [address] Oct, [facility] [address] [id number] [place] [id number] Oct, [facility] [address] [id number] [place] [id number] Oct, [facility] [address] [id number], [place] [address] Oct, [facility] [address] [facility] [id number], [place] [address] Oct, [facility] [place] [facility] [address] [facility] [id number][place] [address]- 8006 Oct, [facility] [place] [facility] [address] [facility] [id number], [place] [address]8985- [address]64 Oct, [facility] [address] [id number], [place] [id number] Sep, [facility] [place] [facility] [address] [facility] [id number], [place] [address]- [address]22 Sep, [facility] [place] [facility] [address] [facility] [id number], [place] [address]- [address] Sep, [facility] [address] [id number] [place] [id number] Sep, [facility] [address] [id number], [place] [address]42104439 Sep, [facility] [address] [id number], [place] [id number] Sep, [facility] [place] [facility] [address] [facility] [id number], [place]- 7988 Sep, [facility] [place] [facility] [address] [facility] [id number][place] [address]- 4241 Sep, [facility] [place] [facility] [address] [facility] [id number] 1223[place] [address] Sep, [facility] [address] [facility] [id number], [place] [address]5614 Aug, [facility] [place] [facility] [address] [facility] [id number], [place] [address]- 7764 Aug, [facility] [address] [facility] [id number], [place] [id number] Aug, [facility] [place] [facility] [address] [facility] [id number], [place] 343379- [address]382 Aug, [facility] [place] [facility] [address] [facility] [id number], [place] [address]- 5800 Aug, [facility] [address] [id number], [place] [address]88[place]4683 Aug, [facility] [address] [facility] [id number], [place] [id number] Aug, [facility] [place] [facility] [address] [facility] [id number], [place] [address]- 0278 Aug, [facility] [place] [address] [id number] [place] 460[place]1063 Aug, [facility] [place] [address] [id number] [place] [id number] Jul, [facility] [place] [address] [id number] [place] 913442881 Jun, [facility] [place] [address] [id number] [place] 087154219 May, [facility] [place] [address] [id number] [place] [id number] May, [facility] [address] [id number] [place] 2[place]446 May, [facility] [place] [address] [id number] [place] [id number] May, [facility] [place] [address] [id number] [place] 170808468 May, [facility] [place] [address] [id number] [place] 536[place]4312 May, [facility] [place] [address] [id number] [place] [id number] May, [facility] [address] [id number] [place] 455088024 Apr, [facility] [address] [id number] [place]140809 Apr, [facility] [address] [id number] [place] [address] Apr, [facility] [address] [id number] [place] 901279168 Apr, [facility] [place] [address] [id number] [place] 7[place]17699 Apr, [facility] [address] [id number] [place] 535627463 Apr, [facility] [place] [address] [id number] [place] [id number] March, [facility] [place] [address] [id number] [place] 000538840 March, [facility] [address] [id number] [place] [id number] Feb, [facility] [address] [id number] [place] [id number] 16 Feb, 2012 [facility] [address] [id number] [place] [id number] Feb, [facility] [place] [address] [id number] [place] [id number] Jan, [facility] [place] [address] [id number] [place] 399[address] Jan, [facility] [place] [address] [id number] [place] 050685113 15 Jan, 2012 [facility] [place] [address] [id number] [place] 386341638 Jan, [facility] [place] [address] [id number] [place] [id number] Dec, [facility] [address]00565100[place] [address]- 4489 Dec, [facility] [address] [id number] [place] Dec, [facility] [address] [id number] [place] [id number] Nov, [facility] [place] [address] [id number] [id number] Nov, [facility] [address] [id number] [place] Nov, [facility] [address] [id number], [place] [address]- 7655 Oct, [facility] [id number] [place] [address] 60500192- 8520 Oct, [facility] [id number] [place] [address] 090071- 2208 Oct, [facility] [id number] [place] [address] 899083- 1064 Aug, [facility] [address] [id number], [place] [address]- 9936 Aug, [facility] [place] [facility] [address] [id number] [place] [address]- 1710 Aug, [facility] [address] [id number] [place] [address]- 0460 March, [facility] [place] [facility] [address] [id number] [place] [address]- 8971 Oct, [facility] [place] [facility] [address] [id number] [place] [address]- 5430 Oct, [facility] [place] [facility] [address] [id number] [place] [address]- 8358 Sep, [facility] [place] [facility] [address] [id number] [place] [address]- 7577 Sep, [facility] [place] [facility] [address] [id number] [place] [address]- 8882 Sep, [facility] [place] [facility] [address] [id number] [place] [address]- 2523 Aug, [facility] [place] [facility] [address] [id number] [place] [address]- 2490 Aug, [facility] [place] [facility] [address] [id number] [place] [address]- 4667 Jun, [facility] [place] [facility] [address] [id number] [place] [address]- 0938 May, [facility] [place] [facility] [address] [id number] [place] [address]- 4556 Jan, [facility] [place] [facility] [address] [id number] [place] [address]- 0888 Nov, [facility] [place] [facility] [address] [id number] [place] [address]- 7895 Oct, [facility] [place] [facility] [address] [id number] [place] [address]- 9007 Sep, [facility] [place] [facility] [address] [id number] [place] [address]- 2046 Sep, [facility] [address] [facility] [id number], [place] [address]- 8734 Sep, [facility] [address] [id number], [place] [address]- 5396 Sep, [facility] [address] [id number], [place] [address]- 9228 Sep, [facility] [address] [id number]- 1409 Aug, [facility] [address] [id number], [place] [address]- 2199 Aug, [facility] [address] [id number], [place] [address]- 2710 Jul, [facility] [address] [id number], [place] [address]- 4334 Jun, IMMUNIZATIONS No Known Immunizations SOCIAL HISTORY Never Assessed REASON FOR VISIT [facility] [place] PLAN OF CARE VITAL SIGNS MEDICATIONS Unknown [...] 08/2016 Hospitalization History chest pain ED visit [facility], pt scheduled for heart cath on May Hospitalization History [facility] 2012 Hospitalization History Chest pain-[facility] 12/22/16
--- OUTSIDE RECORDS SUMMARY | 2019-03-21 19:03 | XMS REPORT ---
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 Name Role Phone Migration, Doctor Unavailable Unavailable PROBLEMS Type Condition ICD9-CM Code REQ32-SL Code Onset Dates Condition Status SNOMED Code Problem Serum creatinine raised R79.89 Active 892175763 Problem Episodic mood disorder F39 Active 31834077 Problem Generalized anxiety disorder F41.1 Active 95198310 Problem Lumbago with sciatica, left side M54.42 Active 254567614 Problem Dyslipidemia E78.5 Active 417070569 Problem Other chronic pain G89.29 Active 91908110 Problem Polyneuropathy associated with underlying disease G63 Active 839242290 Problem Syncope, unspecified syncope type R55 Active 065423213 Problem Recurrent major depressive disorder, in partial remission F33.41 Active 29837082 Problem Other seasonal allergic rhinitis J30.2 Active 970943479 Problem Hammertoe of left foot M20.42 Active 894572904 Problem Lumbago with sciatica, right side M54.41 Active 749585838 Problem 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 Active 045151475 Problem Type 2 diabetes mellitus with diabetic polyneuropathy E11.42 Active 37294252 Problem Stage 2 chronic kidney disease N18.2 Active 445462889 Problem Vitamin D deficiency E55.9 Active 37566672 ALLERGIES No Information ENCOUNTERS Encounter Location Date Diagnosis [place] [address], [place] [address] Jan, 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 current use of insulin Z79.4 [place] [address], [place] [address] Jan, [place] [address] [place] [address] 93509- 0222 Jan, Type 2 diabetes mellitus with diabetic polyneuropathy E11.42 [place] [address], [place] [address] Jan, [facility] [address], [place] [address] 39[address] Jan, Type 2 diabetes mellitus with diabetic polyneuropathy E11.42 [facility] [address] [place] [address] 08567- 0099 Dec, 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 [facility] [address] [id number] [place] [address] 48605- 1503 Dec, 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 current use of insulin Z79.4 [place] [address] [place] [address] 85699- 3414 Dec, [place] [address] [place] [id number] [place] [address] 45443- 1497 Nov, Hammertoe of left foot M20.42 ; Peroneal tendonitis of left lower extremity M76.72 ; Callus of foot L84 and Type 2 diabetes mellitus with diabetic polyneuropathy E11.42 [place] [address] [place] [address] 73333- 7794 Nov, [place] [address] [place] [id number] [place] [address] 23214- 4268 Nov, Encounter for immunization Z23 [facility] [address] [id number] [place] [address] 80590- 6119 Oct, [facility] [address] [place] [address] 97482- 3957 Oct, [facility] [address] [place] [address] 24805- 1191 Oct, Acute pancreatitis, unspecified complication status, unspecified pancreatitis type K85.90 [facility] [address] [place] [address] 47224- 5494 Sep, 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 [facility] [address] [place] [address] 34718- 6749 Sep, [place] [address] [place] [address] 10801- 0958 Sep, Type 2 diabetes mellitus with diabetic polyneuropathy E11.42 ; Stage 2 chronic kidney disease N18.2 and Recurrent major depressive disorder, in partial remission F33.41 [place] [address] [place] [id number] [place] [address] 84810- 0847 Sep, 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 current use of insulin Z79.4 [place] [address] [place] [id number] [place] [address] 34426- 6525 Sep, Acute maxillary sinusitis, recurrence not specified J01.00 and Bronchiolitis J21.9 [place] [address] 94201- 3243 17 Jul, 2018 [place] [address] [place] [id number] [place] [address] 26834- 6068 Jun, Type 2 diabetes mellitus with diabetic polyneuropathy E11.42 ; Open wound T14.8XXA ; 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 ; Stage 2 chronic kidney disease N18.2 and Episodic mood disorder F39 [place] [address] [place] [id number] [place] [address] 82637- 0398 May, [place] [address] [place] [id number] [place] [address] 50126- 4620 March, [place] [address] [place] [id number] [place] [address] 11252- 5828 March, Type 2 diabetes mellitus with diabetic [...] H60.502 and Non-adherence to medical treatment Z91.[address] [id number] [place] [id number] Feb, Dental examination Z01.20 [facility] [address], [place] [address]- 6383 Feb, Labile hypertension R09.89 ; Syncope, unspecified syncope type R55 ; Chest pain, unspecified type R07.9 and Dyslipidemia E78.5 [place] [address] [place] [id number] [place] [address] 25219- 5239 Feb, [facility] [address] [place] [address] [id number] [place] [address] 47982- 7308 Jan, [facility] [place] [address] [place] [address] [id number] [place] [address] [id number] Jan, Dental examination Z01.20 [facility] [address] [address] [id number] [place] [address] 41250- 7663 Jan, Acute non-recurrent maxillary sinusitis J01.00 and Dyslipidemia E78.[address] [id number] [place] [address] [id number] Jan, Dental examination Z01.20 and Dental caries K02.[address] [id number] [place]KE[place] [id number] Jan, [facility] [address] [place] [address] [id number] [place] [address] [id number] Dec, Dental examination Z01.20 [facility] [address] [place] [address] 06933 -3944 Dec, Seasonal allergic rhinitis, unspecified trigger J30.2 [facility] [address] [place] [address] 38371- 8795 Nov, [place] [address] [place] [id number] [place] [address] 88433- 0451 Nov, Type 2 diabetes mellitus with diabetic polyneuropathy E11.42 ; Dyslipidemia E78.5 ; Lumbago with sciatica, right side M54.41 ; Lumbago with sciatica, left side M54.42 ; 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 ; Polyneuropathy associated with underlying disease G63 ; Stage 2 chronic kidney disease N18.2 and Syncope, unspecified syncope type R55 [place] [address] 83826- 6863 Oct, Type 2 diabetes mellitus with diabetic polyneuropathy E11.42 ; Acute otitis externa of left ear, unspecified type H60.502 ; Overweight (BMI 25.0-29.9) E66.3 ; Dyslipidemia E78.5 and Polyneuropathy associated with underlying disease G63 [place] [address] 75991- 9561 Sep, [place] [address] 47576- 4932 Aug, Abnormal mammogram R92.8 [place] [address] 57716- 4472 Aug, Type 2 diabetes mellitus with diabetic polyneuropathy E11.42 [place] [address] 91322- 0289 Aug, [place] [address] 09763- 7553 Aug, Type 2 diabetes mellitus with diabetic polyneuropathy E11.42 ; Syncope, unspecified syncope type R55 ; Other chronic pain G89.29 and Encounter for immunization Z23 [place] [address] 48626- 1112 Aug, Type 2 diabetes mellitus with diabetic polyneuropathy E11.42 [place] [address] [place] [id number] [place] [address] 77059- 7825 Jul, Type 2 diabetes mellitus with diabetic polyneuropathy E11.42 and Serum creatinine raised R79.89 [place] [address] 53817- 8342 Jul, Type 2 diabetes mellitus with diabetic polyneuropathy E11.42 and Serum creatinine raised R79.89 [place] [address] 77351- 2251 May, [place] [address], [place] [address]- 6822 May, [place] [address] [place] [id number] [place] [address] 16732- 8338 May, Head injury, initial encounter S09.90XA ; Facial pain R51 ; Neck pain M54.2 and Fall, initial encounter W19.XXXA [place] [address] [place] [id number] [place] [address] 83855- 0533 May, Type 2 diabetes mellitus with diabetic polyneuropathy E11.42 [place] [address] [place] [id number] [place] [address] 81843- 6474 May, [place] [address] [place] [id number] [place] [address] 54553- 0372 May, Type 2 diabetes mellitus with diabetic polyneuropathy E11.42 [place] [address] [place] [id number] [place] [address] 40369- 6995 May, Dyslipidemia E78.5 ; 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 ; Type 2 diabetes mellitus with diabetic polyneuropathy E11.42 ; Generalized anxiety disorder F41.1 and Other seasonal allergic rhinitis J30.2 [place] [address] [place] [address] 45814- 6372 Apr, Type 2 diabetes mellitus with diabetic polyneuropathy E11.42 [place] [address] [place] [address] 78713- 5801 March, [place] [address] [place] [address] 11127- 4698 March, Abnormal mammogram R92.8 [place] [address] [place] [id number] [place] [address] 20339- 2676 Feb, Abnormal mammogram R92.8 [place] [address] [place] [address] 66179- 0745 Feb, Diabetes type 2, uncontrolled E11.65 [place] [address], [place] [address]- 2697 06 Feb, 2017 Screening for breast cancer Z12.39 [place] [address], [place] [address]- 5694 27 Jan, 2017 Screening for breast cancer Z12.39 [place] [address] [place] [address] 05765- 5850 Jan, Type 2 diabetes mellitus with diabetic polyneuropathy E11.42 ; 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 ; Other viral agents as the cause of diseases classified elsewhere B97.89 and Acute upper respiratory infection, unspecified J06.9 [place] [address] [place] [address] 18695- 2167 Jan, [place] [address] [place] [id number] [place] [address] 29793- 1149 17 Dec, 2016 Diabetes type 2, uncontrolled E11.65 ; Dyslipidemia E78.5 ; Generalized anxiety disorder F41.1 ; Depression, unspecified depression type F32.9 ; 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 current use of insulin Z79.4 and Polyneuropathy associated with underlying disease G63 [place] [address], [place] [address]- 6137 16 Dec, 2016 [place] [address], [place] [address]- 0381 14 Dec, 2016 [place] [address], [place] [address]- 6493 Dec, [place] [address], [place] [address]- 8353 Dec, [place] [address] [place] [id number] [place] [address] 92859- 4895 Oct, Well woman exam Z01.419 ; Screening for breast cancer Z12.39 ; 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 current use of insulin Z79.4 ; Type 2 diabetes mellitus without complications E11.9 and Encounter for immunization Z23 [place] [address] [place] [id number] [place] [address] 36193- 0948 Sep, [place] [address] [place] [id number] [place] [address] 31966- 0667 Sep, Diabetes type 2, uncontrolled E11.65 ; Dyslipidemia E78.5 and Depression, unspecified depression type F32.9 [place] [address] [place] [id number] [place] [address] 92568- 9269 Aug, Diabetes type 2, uncontrolled E11.65 ; Encounter for immunization Z23 ; Nasal congestion R09.81 and Ear pressure, bilateral H93.8X3 [place] [address] 43065- 7217 Jul, Eustachian tube dysfunction, left H69.82 [place] [address] [place] [id number] [place] [address] 31968- 4871 Jun, [place] [address] 20423- 1691 Jun, Hospital discharge follow-up Z09 ; Syncope, unspecified syncope type R55 and Acute suppurative otitis media of left ear without spontaneous rupture of tympanic membrane, recurrence not specified H66.002 [place] [address] [place] [id number] [place] [address] 24898- 3466 May, [place] [address] [place] [id number] [place] [address] 67247- 1385 May, [place] [address] [place] [id number] [place] [address] 76221- 0621 May, [place] [address] [place] [id number] [place] [address] 27747- 8445 May, Diabetes type 2, uncontrolled E11.65 ; [...] disturbance G47.9 and Generalized anxiety disorder F41.1 [facility] [address], [place] [address] 2546 March, [facility] [place] [id number] [place] [address] [id number] March, Syncope, unspecified syncope type R55 and Depression, unspecified depression type F32.9 [facility] [place] [address] [place] [id number] [place] [address] [id number] March, Orthostatic hypotension I95.1 [facility] [place] [address] [place] [id number] [place] [address] [id number] March, [facility] [address], [place] [address]- 2546 March, [facility] [place] [id number] [place] [address] [id number] Feb, [facility] [place] [address] [id number] [place] [id number] Feb, Dental examination Z01.20 [facility] [place] [id number] [place] [address] [id number] Jan, [facility] [place] [address] [id number] [place] [address] [id number] Jan, [facility] [place] [id number] [place] [address] [id number] Dec, Diabetes type 2, uncontrolled E11.65 [facility] [place] [id number] [place] [address] [id number] Nov, [facility] [place] [address] [id number] [place] [phone] Nov, Encounter for dental examination Z01.20 [facility] [place] [address] [id number] [place] [id number] Nov, Dental examination Z01.20 [facility] [place] [id number], [place] [id number] Sep, Diabetes type 2, uncontrolled E11.[address] [facility] [place] [address] [id number] [place] [phone] Sep, Encounter for dental examination Z01.20 and Dental caries, unspecified K02.9 [facility] [place] [id number], [place] [id number] Sep, Bipolar 2 disorder F31.81 [facility] [place] [id number], [place] [id number] Aug, [facility] [place] [id number], [place] [id number] Aug, Follow up V67.9 [facility] [address] [address]- 7785 Jul, Bipolar disorder, unspecified 296.80 [facility] [place] [id number], [place] [id number] Jul, Thyroid enlarged 240.9 and Bipolar disorder, unspecified 296.80 [facility] [address] [address] Jun, Diabetes mellitus type 2, uncontrolled 250.02 ; Bipolar disorder, unspecified 296.80 and Rash 782.1 [facility] [place] [id number], [place] [id number] Jun, [facility] [place] [id number], [place] [address] May, Urinary tract infection 599.0 [facility] [place] [id number], [place] [address] May, Urinary tract infection 599.0 [facility] [place] [id number], [place] [id number] May, [facility] [place] [id number], [place] [address] May, Diabetes mellitus type 2, uncontrolled 250.02 and Pica in adults 307.52 [facility] [place] [id number], [place] [address] Apr, Follow up V67.9 and Diabetes mellitus type 2, uncontrolled 250.02 [facility] [place] [address] [id number] Apr, [facility] [address], [place] [address]- 2546 Apr, [facility] [place] [id number], [place] [address] Apr, Hyperlipidemia 272.4 [facility] [place] [address] [place] [id number][place] [address] March, Diabetes type 2, uncontrolled 250.02 [facility] [place] [id number] [place] [address] [id number] March, Diabetes mellitus type 2, uncontrolled 250.02 [facility] [id number], [place] [id number] March, Diabetes type 2, uncontrolled 250.02 [facility] [id number] [place] [address] [id number] March, [facility] [id number], [place] [id number] March, [facility] [id number], [place] [id number] Feb, [facility] [place] [facility] [address], [place] [address]- 2546 Feb, [facility] [place] [facility] [address], [place] [address]- 2546 Feb, [facility] [address] [place] [id number], [place] [id number] Jan, [facility] [place] [facility] [address], [place] [address]- 2546 Jan, [facility] [place] [facility] [address] [id number], [place] [address]- 2546 Jan, [facility] [address] [place] [id number], [place] [id number] Jan, [facility] [place] [facility] [address], [place] [address]- 2546 Jan, [facility] [place] [facility] [address], [place] [address]- 2656 Jan, [facility] [place] [address] [facility] [id number], [place] [id number] Jan, [facility] [place] [facility] [address] [facility] [id number], [place] [address]- 3826 Jan, [facility] [place] [facility] [address] [id number], [place] [address]- 9525 Dec, [facility] [address] [facility] [id number] [place] [id number] Dec, [facility] [place] [facility] [address] [place] [id number], [place] [address]- 2459 Dec, [facility] [address] [facility] [id number] [place] [id number] Dec, [facility] [place] [facility] [address] [place] [id number] [address]- 3586 Dec, [facility] [address] [place] [id number], [place] [id number] Dec, [facility] [place] [facility] [address], [place] [address]- 8529 Dec, [facility] [place] [facility] [address], [place] [address]- 3532 Dec, [facility] [address] [place] [id number], [place] [id number] Dec, [facility] [address] [place] [id number], [place] [id number] Dec, [facility] [place] [facility] [address], [place] [address]- 8464 Dec, [facility] [place] [facility] [address] [facility] [id number], [place] [address]- 3731 Nov, [facility] [place] [facility] [address] [facility] [id number], [place] [address]- 2929 Oct, [facility] [place] [facility] [address] [id number]- 4663 Oct, [facility] [address] [facility] [id number], [place] [address]85298744 Sep, [facility] [address] [id number], [place] [address]- 4186 Sep, [facility] [address] [id number], [place] [address] Sep, [facility] [place] [facility] [address] [facility] [id number], [place] [address]- 6970 Sep, [facility] [address] [facility] [id number][place] [id number] Aug, [facility] [place] [facility] [address] [facility] [id number], [place] [address]- 9384 Aug, [facility] [address] [facility] [id number], [place] 7[address]60[address] Aug, [facility] [place] [facility] [address], [place] [address]- 4755 Aug, [facility] [place] [facility] [address]- 6032 Jul, [facility] [place] [facility] [address] [facility] [id number], [place] [address]- 2219 Jul, [facility] [address] [facility] [id number], [place] [id number] Jul, [facility] [place] [facility] [id number], [place] [address]- 1194 Jul, [facility] [address] [facility] [id number], [place] [id number] Jun, [facility] [address] [facility] [id number], [place] [id number] Jun, [facility] [place] [facility] [address] [facility] [id number][place] 187769- 3235 Jun, [facility] [place] [facility] [address] [facility] [id number], [place] [address]- 5282 Jun, [facility] [address] [facility] [id number], [place] [id number] Jun, [facility] [place] [facility] [address] [id number] [place] [address]- 8116 Jun, [facility] [address] [id number] [place] [id number] May, [facility] [place] [facility] [address] [id number] [place] [address]- 2496 May, [facility] [place] [facility] [address] [facility] [id number] [place] [address]- 7791 Apr, [facility] [place] [facility] [address] [id number] [place] [address]- 4370 Apr, [facility] [address] [facility] [id number] [place] [id number] Apr, [facility] [place] [facility] [address] [facility] [id number] [place] [id number] Apr, [facility] [place] [facility] [address] [facility] [id number] [place] [id number] Apr, [facility] [address] [facility] [id number][place] [id number] March, [facility] [place] [facility] [address] [facility] [id number] [place] [id number] March, [facility] [place] [facility] [address] [facility] [id number], [place] [address] March, [facility] [address] [facility] [id number][place] [id number] March, [facility] [place] [facility] [address] [facility] [id number], [place] [address] March, [facility] [address] [facility] [id number] [place] [id number] March, [facility] [place] [facility] [address] [facility] [id number] [place] [id number] March, [facility] [address] [facility] [id number] [place] [id number] Feb, [facility] [place] [facility] [address] [facility] [id number] [place] [address] Feb, [facility] [place] [facility] [address] [facility] [id number] [place] [id number] Jan, [facility] [address] [id number] [place] [id number] Jan, [facility] [place] [facility] [address] [facility] [id number] [place] [id number] Jan, [facility] [place] [facility] [address] [facility] [id number], [place] [address] Jan, [facility] [address] [id number] [place] [id number] Jan, [facility] [address] [id number] [place] [id number] Dec, [facility] [place] [facility] [address] [facility] [id number], [place] [address] Dec, [facility] [place] [facility] [address] [id number] [address] Dec, [facility] [address] [id number] [place] [id number] Dec, [facility] [place] [facility] [address] [facility] [id number], [place] [address] 2546 Dec, [facility] [place] [address] [facility] [id number][place] [id number] Dec, [facility] [place] [facility] [id number], [place] [address] Dec, [facility] [place] [facility] [address] [facility] [id number], [place] [address]- [address] Dec, [facility] [address] [id number] [place] [id number] Dec, [facility] [address] [facility] [id number] [place] [id number] Nov, [facility] [place] [facility] [address] [facility] [id number], [place] [address]- [address] Nov, [facility] [place] [facility] [address] [id number], [place] [address] Nov, [facility] [address] [id number] [place] [id number] Nov, [facility] [address] [id number] [place] [id number] Oct, [facility] [place] [facility] [address] [id number], [place] [address]- [address] Oct, [facility] [address] [id number] [place] [id number] Oct, [facility] [place] [facility] [address] [id number] [place] [address]- [address] Oct, [facility] [place] [facility] [address] [facility] [id number], [place] [address]- 8406 Oct, [facility] [place] [facility] [address] [facility] [id number], [place] [address]- [address] Oct, [facility] [address] [facility] [id number][place] [id number] Oct, [facility] [place] [facility] [address] [facility] [id number], [place] [address] Oct, [facility] [place] [facility] [address] [facility] [id number], [place] [address] Sep, [facility] [place] [facility] [address] [facility] [id number], [place] [address] Sep, [facility] [address] [id number][place] [id number] Sep, [facility] [place] [facility] [address] [facility] [id number], [place] [address]16 Sep, [facility] [place] [facility] [address] [facility] [id number], [place] [address] 3916 Sep, [facility] [address] [id number], [place] [id number] Sep, [facility] [address] [id number], [place] [id number] Aug, [facility] [place] [facility] [address] [facility] [id number], [place] [address]- [address]12 Aug, [facility] [place] [facility] [address] [facility] [id number], [place] [address]- [address]286 Aug, [facility] [address] [id number][place] [id number] Aug, [facility] [address] [id number][place] [address] Aug, [facility] [place] [facility] [address] [facility] [id number] [place] [address]- 2188 Aug, [facility] [place] [facility] [address] [facility] [id number] [place] [address]- 3692 Aug, [facility] [place] [facility] [address] [facility] [id number], [place] [address]- 8456 Aug, [facility] [address] [facility] [id number][place] [id number] Jul, [facility] [place] [facility] [address] [facility] [id number], [place] [address] 4393 Jul, [facility] [place] [facility] [address] [facility] [id number], [place] [address] 8366 Jul, [facility] [address] [facility] [id number], [place] [id number] Jul, [facility] [address] [facility] [id number][place] [id number] Jul, [facility] [place] [facility] [address] [facility] [id number], [place] [address]- 8436 May, [facility] [place] [facility] [address] [facility] [id number], [place] [address]- 1684 Apr, [facility] [address] [facility] [id number], [place] [id number] Apr, [facility] [address] [facility] [id number], [place] [id number] Apr, [facility] [place] [facility] [address] [facility] [id number], [place] [address]- [address]46 March, [facility] [address] [id number] [place] [id number] March, [facility] [address] [id number] [place] [id number] March, [facility] [address] [id number] [place] [id number] March, [facility] [address] [id number] [place] [id number] March, [facility] [address] [id number] [place] [id number] March, [facility] [address] [facility] [id number], [place] [address]- 2546 March, [facility] [address] [facility] [id number], [place] [address]- 2546 March, [facility] [address] [id number], [place] [address] Feb, [facility] [address] [id number] [place] [id number] Feb, [facility] [address] [id number] [place] [id number] Feb, [facility] [address] [id number] [place] [id number] Feb, [facility] [address]00565[address], [place] [address] Feb, [facility] [address] [id number] [place] [id number] Feb, [facility] [address] [id number] [place] [id number] Jan, [facility] [address] [id number] [place] [id number] Jan, [facility] [address] [id number] [place] [id number] Dec, [facility] [address] [id number] [place] [id number] Dec, [facility] [address] [id number], [place] [address] 3369 Dec, [facility] [address] [id number] [place] [id number] Dec, [facility] [address] [id number] [place] [id number] Dec, [facility] [address] [id number] [place] [id number] Dec, [facility] [address] [id number] [place] [id number] Dec, [facility] [address] [id number], [place] [address] Nov, [facility] [address] [id number] [place] [id number] Nov, [facility] [address] [id number] [place] [id number] Nov, [facility] [address] [id number] [place] [id number] Nov, [facility] [address] [id number] [place] [id number] Nov, [facility] [address] [facility] [id number], [place] [address]- [address]16 Oct, [facility] [address] [id number] [place] [id number] Oct, [facility] [address] [id number] [place] [id number] Oct, [facility] [address] [id number], [place] [id number] Oct, [facility] [address] [facility] [id number], [place] [address]- 3802 Oct, [facility] [place] [facility] [address] [facility] [id number], [place] [address]- 1550 Oct, [facility] [place] [facility] [address] [facility] [id number], [place] 51044152- 1305 Oct, [facility] [address] [id number], [place] [id number] Sep, [facility] [place] [facility] [address] [facility] [id number], [place] [address]- 4706 Sep, [facility] [place] [facility] [address] [facility] [id number], [place] [address]- 2264 Sep, [facility] [address] [id number] [place] [id number] Sep, [facility] [address] [id number], [place] [id number] Sep, [facility] [address] [id number], [place] 039191278 Sep, [facility] [place] [facility] [address] [facility] [id number][place]- 6517 Sep, [facility] [place] [facility] [address] [facility] [id number], [place] [address]- 7397 Sep, [facility] [place] [facility] [address] [facility] [id number], [place] [address]55558- 0438 Sep, [facility] [address] [facility] [id number][place] [id number] Aug, [facility] [place] [facility] [address] [facility] [id number], [place] [address]- 2912 Aug, [facility] [address] [facility] [id number], [place] [id number] Aug, [facility] [place] [facility] [address] [facility] [id number], [place] 650644- 9379 Aug, [facility] [place] [facility] [address] [facility] [id number], [place] [address]- 6080 Aug, [facility] [address] [id number], [place] [id number] Aug, [facility] [address] [facility] [id number], [place] [id number] Aug, [facility] [place] [facility] [address] [facility] [id number], [place] [address]- 2296 Aug, [facility] [place] [address] [id number] [place] [id number] Aug, [facility] [place] [address] [id number] [place] [id number] Jul, [facility] [place] [address] [id number] [place] [id number] Jun, [facility] [place] [address] [id number] [place] 539[address]71 May, [facility] [place] [address] [id number] [place] [id number] May, [facility] [place] [address] [id number] [place] [id number] May, [facility] [place] [address] [id number] [place] [id number] May, [facility] [place] [address] [id number] [place] [id number] May, [facility] [place] [address] [id number] [place] [id number] May, [facility] [place] [address] [id number] [place]7583 May, [facility] [place] [address] [id number] [place] [id number] Apr, [facility] [place] [address] [id number] [place] [id number] Apr, [facility] [place] [address] [id number] [place] [id number] Apr, [facility] [place] [address] [id number] [place] [id number] Apr, [facility] [place] [address] [id number] [place] [id number] Apr, [facility] [place] [address] [id number] [place] [id number] Apr, [facility] [place] [address] [id number] [place] [id number] March, [facility] [place] [address] [id number] [place] 1880[place]154 March, [facility] [place] [address] [id number] [place] [id number] Feb, [facility] [place] [address] [id number] [place] [id number] 16 Feb, 2012 [facility] [place] [address] [id number] [place] [id number] Feb, [facility] [place] [address] [id number] [place] [id number] Jan, [facility] [place] [address] [id number] [place] [id number] Jan, [facility] [place] [address] [id number] [place] [id number] 15 Jan, 2012 [facility] [place] [address] [id number] [place] [id number] Jan, [facility] [place] [address] [id number] [place] [id number] Dec, [facility] [address], [place] [address]- 4459 Dec, [facility] [place] [address] [id number] [place] [id number] Dec, [facility] [place] [address] [id number] [place] [id number] Nov, [facility] [place] [address] [id number] [place] [id number] Nov, [facility] [place] [address] [id number] [place] [id number] Nov, [facility] [address] [id number], [place] [address]- 0563 Oct, [facility] [id number] [place] [address] 31912396- 7213 Oct, [facility] [id number] [place] [address] 847320- 5590 Oct, [facility] [place] [facility] [id number] [place] [address] 461350- 5276 Aug, [facility] [address] [id number], [place] 64[place]- 6565 Aug, [facility] [place] [facility] [address] [id number] [place] [address]- 4365 Aug, [facility] [place] [facility] [address] [id number] [place] [address]- 7946 March, [facility] [place] [facility] [address] [id number] [place] [address]- 8703 Oct, [facility] [place] [facility] [address] [id number] [place] [address]- 1615 Oct, [facility] [place] [facility] [address] [id number] [place] [address]- 2843 Sep, [facility] [place] [facility] [address] [id number] [place] [address]- 0739 Sep, [facility] [place] [facility] [address] [id number] [place] [address]- 7634 Sep, [facility] [place] [facility] [address] [id number] [place] [address]- 9174 Aug, [facility] [place] [facility] [address] [id number] [place] [address]- 9456 Aug, [facility] [place] [facility] [address] [id number] [place] [address]- 9039 Jun, [facility] [place] [facility] [address] [id number] [place] [address]- 2812 May, [facility] [place] [facility] [address] [id number] [place] [address]- 3812 Jan, [facility] [place] [facility] [address] [id number] [place] [address]- 1479 Nov, [facility] [place] [facility] [address] [id number] [place] [address]- 8676 Oct, [facility] [place] [facility] [address] [id number] [place] [address]- 7291 Sep, [facility] [place] [facility] [address] [id number] [place] [address]- 2305 Sep, [facility] [address] [facility] [id number], [place] [address]- 2143 Sep, [facility] [address] [id number], [place] [address]- 9494 Sep, [facility] [address] [id number], [place] [address]- 6974 Sep, [facility] [address] [id number]- 0517 Aug, [facility] [address] [id number], [place] [address]- 3949 Aug, [facility] [address] [id number], [place] [address]- 2753 Jul, [facility] [address] [id number], [place] [address]- 5027 Jun, IMMUNIZATIONS No Known Immunizations SOCIAL HISTORY Never Assessed REASON FOR VISIT [facility] PLAN OF CARE VITAL SIGNS MEDICATIONS Unknown [...] 08/2016 Hospitalization History chest pain ED visit [facility] pt scheduled for heart cath on May Hospitalization History [facility] 2012 Hospitalization History Chest pain-[facility] 12/22/16
--- OUTSIDE RECORDS SUMMARY | 2019-03-21 19:04 | XMS REPORT ---
Author Author Migration, Doctor Organization [facility] Address Unknown Phone Unavailable Care Team Providers Care Body Specialist Name Role Phone Migration, Doctor Unavailable Unavailable PROBLEMS Type Condition ICD9-CM Code PMK21-AL Code Onset Dates Condition Status SNOMED Code Problem Serum creatinine raised R79.89 Active 518225995 Problem Episodic mood disorder F39 Active 06412109 Problem Generalized anxiety disorder F41.1 Active 86037410 Problem Lumbago with sciatica, left side M54.42 Active 721039683 Problem Dyslipidemia E78.5 Active 939858704 Problem Other chronic pain G89.29 Active 34240762 Problem Polyneuropathy associated with underlying disease G63 Active 445486094 Problem Syncope, unspecified syncope type R55 Active 214718688 Problem Recurrent major depressive disorder, in partial remission F33.41 Active 92143565 Problem Other seasonal allergic rhinitis J30.2 Active 100211286 Problem Hammertoe of left foot M20.42 Active 010222380 Problem Lumbago with sciatica, right side M54.41 Active 148028197 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 734795708 Problem Type 2 diabetes mellitus with diabetic polyneuropathy E11.42 Active 50930586 Problem Stage 2 chronic kidney disease N18.2 Active 087975924 Problem Vitamin D deficiency E55.9 Active 83051955 ALLERGIES No Information ENCOUNTERS Encounter Location Date Diagnosis [place] [address], [place] [address] Jan, penitentiary current use of insulin Z79.4 [place] [address], [place] [address] Jan, [place] [address] [place] [address] 39952- 6198 Jan, Type 2 diabetes mellitus with diabetic polyneuropathy E11.42 [place] [address], [place] [address] 65[address] Jan, [facility] [address], [place] [address] 2742 Jan, Type 2 diabetes mellitus with diabetic polyneuropathy E11.42 [facility] [address] [place] [address] 64276- 6874 Dec, 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 [facility] [address] [place] [id number] [place] [address] 42524- 9171 Dec, penitentiary current use of insulin Z79.4 [place] [address] [place] [address] 30135- 3447 Dec, [place] [address] [place] [id number] [place] [address] 42015- 4127 Nov, Hammertoe of left foot M20.42 ; Peroneal tendonitis of left lower extremity M76.72 ; Callus of foot L84 and Type 2 diabetes mellitus with diabetic polyneuropathy E11.42 [place] [address] [place] [address] 26415- 2132 Nov, [place] [address] [place] [id number] [place] [address] 15468- 2995 Nov, Encounter for immunization Z23 [facility] [address] [place] [id number] [place] [address] 21531- 3440 Oct, [facility] [address] [place] [address] 79671- 9622 Oct, [facility] [address] [place] [address] 37661- 6979 Oct, Acute pancreatitis, unspecified complication status, unspecified pancreatitis type K85.90 [facility] [address] [place] [address] 17329- 5473 Sep, 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 [facility] [address] [place] [address] 90988- 5808 Sep, [place] [address] [place] [address] 60712- 9007 Sep, Type 2 diabetes mellitus with diabetic polyneuropathy E11.42 ; Stage 2 chronic kidney disease N18.2 and Recurrent major depressive disorder, in partial remission F33.41 [place] [address] [place] [id number] [place] [address] 19374- 8730 Sep, penitentiary current use of insulin Z79.4 [place] [address] [place] [id number] [place] [address] 15281- 6953 Sep, Acute maxillary sinusitis, recurrence not specified J01.00 and Bronchiolitis J21.9 [place] [address] 6[address]88- 4877 17 Jul, 2018 [place] [address] [place] [id number] [place] [address] 24388- 8822 Jun, Type 2 diabetes mellitus with diabetic polyneuropathy E11.42 ; Open wound T14.8XXA ; 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 ; Stage 2 chronic kidney disease N18.2 and Episodic mood disorder F39 [place] [address] [place] [id number] [place] [address] 06113- 2717 May, [place] [address] [place] [id number] [place] [address] 74019- 8924 March, [place] [address] [place] [id number] [place] [address] 52794- 1207 March, Type 2 diabetes mellitus with diabetic [...] and Non-adherence to medical treatment Z91.[address] [id number] [place] [id number] Feb, Dental examination Z01.20 [facility] [address], [place] [address] 3[address] Feb, Labile hypertension R09.89 ; Syncope, unspecified syncope type R55 ; Chest pain, unspecified type R07.9 and Dyslipidemia E78.5 [place] [address] [place] [id number] [place] [address] 51975- 7291 Feb, [facility] [address] [place] [id number] [place] [address] 31669- 3411 Jan, [facility] [place] [address] [place] [address] [id number] [place] [address] [id number] Jan, Dental examination Z01.20 [facility] [address] [place] [id number] [place] [address] 32263- 6396 Jan, Acute non-recurrent maxillary sinusitis J01.00 and Dyslipidemia E78.[address] [facility] [id number] [place] [address] [id number] Jan, Dental examination Z01.20 and Dental caries K02.[address] [facility] [id number] [place] [id number] Jan, [facility] [address] [place] [address] [id number] [place] [address] [id number] Dec, Dental examination Z01.20 [facility] [address] [place] [address] 40152 -8654 Dec, Seasonal allergic rhinitis, unspecified trigger J30.2 [facility] [address] [place] [address] 95134- 9143 Nov, [place] [address] [place] [id number] [place] [address] 92331- 7867 Nov, Type 2 diabetes mellitus with diabetic polyneuropathy E11.42 ; Dyslipidemia E78.5 ; Lumbago with sciatica, right side M54.41 ; Lumbago with sciatica, left side M54.42 ; 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 ; Polyneuropathy associated with underlying disease G63 ; Stage 2 chronic kidney disease N18.2 and Syncope, unspecified syncope type R55 [place] [address] 28959- 8777 Oct, Type 2 diabetes mellitus with diabetic polyneuropathy E11.42 ; Acute otitis externa of left ear, unspecified type H60.502 ; Overweight (BMI 25.0-29.9) E66.3 ; Dyslipidemia E78.5 and Polyneuropathy associated with underlying disease G63 [place] [address] 45389- 4028 Sep, [place] [address] 33043- 4695 Aug, Abnormal mammogram R92.8 [place] [address] 75621- 6418 Aug, Type 2 diabetes mellitus with diabetic polyneuropathy E11.42 [place] [address] 89813- 4701 Aug, [place] [address] 89385- 7270 Aug, Type 2 diabetes mellitus with diabetic polyneuropathy E11.42 ; Syncope, unspecified syncope type R55 ; Other chronic pain G89.29 and Encounter for immunization Z23 [place] [address] 87814- 5033 Aug, Type 2 diabetes mellitus with diabetic polyneuropathy E11.42 [place] [address] [place] [id number] [place] [address] 08165- 6240 Jul, Type 2 diabetes mellitus with diabetic polyneuropathy E11.42 and Serum creatinine raised R79.89 [place] [address] 57250- 7688 Jul, Type 2 diabetes mellitus with diabetic polyneuropathy E11.42 and Serum creatinine raised R79.89 [place] [address] 64028- 6518 May, [place] [address], [place] [address]- 1053 May, [place] [address] [place] [id number] [place] [address] 89720- 6318 May, Head injury, initial encounter S09.90XA ; Facial pain R51 ; Neck pain M54.2 and Fall, initial encounter W19.XXXA [place] [address] [place] [id number] [place] [address] 93741- 9790 May, Type 2 diabetes mellitus with diabetic polyneuropathy E11.42 [place] [address] [place] [id number] [place] [address] 54819- 6809 May, [place] [address] [place] [id number] [place] [address] 89347- 5949 May, Type 2 diabetes mellitus with diabetic polyneuropathy E11.42 [place] [address] [place] [id number] [place] [address] 56955- 6290 May, Dyslipidemia E78.5 ; 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 ; Type 2 diabetes mellitus with diabetic polyneuropathy E11.42 ; Generalized anxiety disorder F41.1 and Other seasonal allergic rhinitis J30.2 [place] [address] [place] [address] 97235- 8531 Apr, Type 2 diabetes mellitus with diabetic polyneuropathy E11.42 [place] [address] [place] [address] 10900- 1672 March, [place] [address] [place] [address] 12515- 7563 March, Abnormal mammogram R92.8 [place] [address] [place] [id number] [place] [address] 72302- 2305 Feb, Abnormal mammogram R92.8 [place] [address] [place] [address] 32298- 4090 Feb, Diabetes type 2, uncontrolled E11.65 [place] [address], [place] [address]- 5888 06 Feb, 2017 Screening for breast cancer Z12.39 [place] [address], [place] [address]- 1417 27 Jan, 2017 Screening for breast cancer Z12.39 [place] [address] [place] [address] 91171- 5188 Jan, Type 2 diabetes mellitus with diabetic polyneuropathy E11.42 ; 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 ; Other viral agents as the cause of diseases classified elsewhere B97.89 and Acute upper respiratory infection, unspecified J06.9 [place] [address] [place] [address] 13123- 4998 Jan, [place] [address] [place] [id number] [place] [address] 56534- 5838 17 Dec, 2016 Diabetes type 2, uncontrolled E11.65 ; Dyslipidemia E78.5 ; Generalized anxiety disorder F41.1 ; Depression, unspecified depression type F32.9 ; penitentiary current use of insulin Z79.4 and Polyneuropathy associated with underlying disease G63 [place] [address], [place] [address]- 9062 16 Dec, 2016 [place] [address], [place] [address]- 1239 14 Dec, 2016 [place] [address], [place] [address]- 2634 Dec, [place] [address], [place] [address]- 7954 Dec, [place] [address] [place] [id number] [place] [address] 17298- 9572 Oct, Well woman exam Z01.419 ; Screening for breast cancer Z12.39 ; penitentiary current use of insulin Z79.4 ; Type 2 diabetes mellitus without complications E11.9 and Encounter for immunization Z23 [place] [address] [place] [id number] [place] [address] 81433- 7064 Sep, [place] [address] [place] [id number] [place] [address] 45510- 1952 Sep, Diabetes type 2, uncontrolled E11.65 ; Dyslipidemia E78.5 and Depression, unspecified depression type F32.9 [place] [address] [place] [id number] [place] [address] 36255- 0999 Aug, Diabetes type 2, uncontrolled E11.65 ; Encounter for immunization Z23 ; Nasal congestion R09.81 and Ear pressure, bilateral H93.8X3 [place] [address] 07354- 4862 Jul, Eustachian tube dysfunction, left H69.82 [place] [address] [place] [address] [place] [address] 81961- 2208 Jun, [place] [address] 83198- 1774 Jun, Hospital discharge follow-up Z09 ; Syncope, unspecified syncope type R55 and Acute suppurative otitis media of left ear without spontaneous rupture of tympanic membrane, recurrence not specified H66.002 [place] [address] [place] [id number] [place] [address] 75202- 8321 May, [place] [address] [place] [id number] [place] [address] 14028- 1446 May, [place] [address] [place] [id number] [place] [address] 28819- 4809 May, [place] [address] [place] [id number] [place] [address] 05623- 3020 May, Diabetes type 2, uncontrolled E11.65 ; [...] disturbance G47.9 and Generalized anxiety disorder F41.1 [facility] [address], [place] [address] 2546 March, [facility] [place] [id number] [place] [address] [id number] March, Syncope, unspecified syncope type R55 and Depression, unspecified depression type F32.9 [facility] [place] [address] [id number] [place] [address] [id number] March, Orthostatic hypotension I95.1 [facility] [place] [address] [place] [id number] [place] [address] [id number] March, [facility] [address], [place] [address]- 2546 March, [facility] [place] [id number] [place] [address] [id number] Feb, [facility] [place] [address] [id number] [place] [id number] Feb, Dental examination Z01.20 [facility] [place] [id number] [place] [address] [id number] Jan, [facility] [place] [address] [place] [id number] [place] [address] [id number] Jan, [facility] [place] [id number] [place] [address] [id number] Dec, Diabetes type 2, uncontrolled E11.65 [facility] [place] [id number] [place] [address] [id number] Nov, [facility] [place] [address] [id number] [place] [id number] Nov, Encounter for dental examination Z01.20 [facility] [address] [id number] [place] [id number] Nov, Dental examination Z01.20 [facility] [place] [id number] [place] [id number] Sep, Diabetes type 2, uncontrolled E11.[address] [facility] [address] [id number] [place] [id number] Sep, Encounter for dental examination Z01.20 and Dental caries, unspecified K02.9 [facility] [place] [id number] [place] [id number] Sep, Bipolar 2 disorder F31.81 [facility] [place] [id number] [place] [id number] Aug, [facility] [place] [id number] [place] [id number] Aug, Follow up V67.[address] [facility] [address] [address]- 7321 Jul, Bipolar disorder, unspecified 296.80 [facility] [place] [id number] [place] [id number] Jul, Thyroid enlarged 240.9 and Bipolar disorder, unspecified 296.80 [facility] [address] [id number] Jun, Diabetes mellitus type 2, uncontrolled 250.02 ; Bipolar disorder, unspecified 296.80 and Rash 782.1 [facility] [place] [id number] [place] [id number] Jun, [facility] [place] [id number] [place] [id number] May, Urinary tract infection 599.0 [facility] [place] [id number] [place] [id number] May, Urinary tract infection 599.0 [facility] [place] [id number] [place] [id number] May, [facility] [place] [id number] [place] [id number] May, Diabetes mellitus type 2, uncontrolled 250.02 and Pica in adults 307.52 [facility] [place] [id number] [place] [id number] Apr, Follow up V67.9 and Diabetes mellitus type 2, uncontrolled 250.02 [facility] [place] [address] [place] [id number] Apr, [facility] [address], [place] [address]- 2546 Apr, [facility] [id number] [place] [id number] Apr, Hyperlipidemia 272.4 [facility] [address] [place] [address] [id number] [place] [id number] March, Diabetes type 2, uncontrolled 250.02 [facility] [id number] [place] [address] [id number] March, Diabetes mellitus type 2, uncontrolled 250.02 [facility] [id number] [place] [id number] March, Diabetes type 2, uncontrolled 250.02 [facility] [id number] [place] [address] [id number] March, [facility] [id number] [place] [id number] March, [facility] [id number] [place] [id number] Feb, [facility] [place] [facility] [address], [place] [address]- 2546 Feb, [facility] [place] [facility] [address], [place] [address]- 2546 Feb, [facility] [address] [place] [id number] [place] [id number] Jan, [facility] [place] [facility] [address], [place] [address]- 2546 Jan, [facility] [place] [facility] [address] [place] [id number], [place] [address]- 2546 Jan, [facility] [address] [place] [address] [id number] [place] [id number] Jan, [facility] [place] [facility] [address], [place] [address]- 2546 Jan, [facility] [place] [facility] [address], [place] [address]- 0556 Jan, [facility] [address] [facility] [id number] [place] [id number] Jan, [facility] [place] [facility] [address] [facility] [id number], [place] [address]- 8454 Jan, [facility] [place] [facility] [id number] [address]- 7324 Dec, [facility] [address] [facility] [id number] [place] [id number] Dec, [facility] [place] [facility] [id number] [address]- 1057 Dec, [facility] [address] [facility] [id number] [place] [id number] Dec, [facility] [place] [facility] [id number] [address]- 8666 Dec, [facility] [address] [place] [address] [id number] [place] [id number] Dec, [facility] [place] [facility] [address], [place] [address]- 8807 Dec, [facility] [place] [facility] [address], [place] [address]- 5845 Dec, [facility] [address] [place] [id number] [place] [id number] Dec, [facility] [address] [place] [address] [id number] [place] [id number] Dec, [facility] [place] [facility] [address], [place] [address]- 0873 Dec, [facility] [place] [facility] [address] [facility] [id number], [place] [address]- 9232 Nov, [facility] [place] [facility] [address] [facility] [id number], [place] [address]- 9577 Oct, [facility] [place] [facility] [id number]- 9609 Oct, [facility] [address] [facility] [id number] [place] [id number] Sep, [facility] [address] [id number], [place] [address]- 7956 Sep, [facility] [address] [id number] [place] [id number] Sep, [facility] [place] [facility] [address] [facility] [id number], [place] [address]- 6518 Sep, [facility] [address] [facility] [id number] [place] [id number] Aug, [facility] [place] [facility] [address] [facility] [id number], [place] [address]- 0288 Aug, [facility] [address] [facility] [id number] [place] [id number] Aug, [facility] [place] [facility] [address], [place] [address]- 4905 Aug, [facility] [place] [facility] [address] [address]- 3268 Jul, [facility] [place] [facility] [address] [facility] [id number], [place] [address]- 5474 Jul, [facility] [address] [facility] [id number] [place] [id number] Jul, [facility] [place] [facility] [id number], [place] [address]- 9891 Jul, [facility] [address] [facility] [id number] [place] [id number] Jun, [facility] [address] [facility] [id number] [place] [id number] Jun, [facility] [place] [facility] [address] [facility] [id number][place]- 2584 Jun, [facility] [place] [facility] [address] [facility] [id number], [place] [address]- 9512 Jun, [facility] [address] [facility] [id number] [place] [id number] Jun, [facility] [place] [facility] [address] [id number] [address]- 6906 Jun, [facility] [address] [id number] [place] [id number] May, [facility] [place] [facility] [address] [id number] [place] [address]- 5506 May, [facility] [place] [facility] [address] [facility] [id number] [place] [address]- 4000 Apr, [facility] [place] [facility] [address] [id number] [address]- 6310 Apr, [facility] [address] [facility] [id number] [place] [id number] Apr, [facility] [place] [facility] [address] [facility] [id number] [place] [address] Apr, [facility] [place] [facility] [address] [facility] [id number] [place] [address] Apr, [facility] [address] [facility] [id number] [place] [id number] March, [facility] [place] [facility] [address] [facility] [id number] [place] [address] March, [facility] [place] [facility] [address] [facility] [id number], [place] [address] March, [facility] [address] [facility] [id number] [place] [id number] March, [facility] [place] [facility] [address] [facility] [id number], [place] [address] March, [facility] [address] [facility] [id number] [place] [id number] March, [facility] [place] [facility] [address] [facility] [id number] [place] [address] March, [facility] [address] [facility] [id number] [place] [id number] Feb, [facility] [place] [facility] [address] [facility] [id number] [place] [address] Feb, [facility] [place] [facility] [address] [facility] [id number] [place] [address] Jan, [facility] [address] [id number] [place] [id number] Jan, [facility] [place] [facility] [address] [facility] [id number] [place] [address] Jan, [facility] [place] [facility] [address] [facility] [id number], [place] [address] Jan, [facility] [address] [id number] [place] [id number] Jan, [facility] [address] [id number] [place] [id number] Dec, [facility] [place] [facility] [address] [facility] [id number], [place] [address] Dec, [facility] [place] [facility] [address] [id number], [place] [address] Dec, [facility] [address] [id number] [place] [id number] Dec, [facility] [place] [facility] [address] [facility] [id number], [place] [address] Dec, [facility] [address] [facility] [id number] [place] [id number] Dec, [facility] [place] [facility] [id number], [place] [address] Dec, [facility] [place] [facility] [address] [facility] [id number], [place] [address] Dec, [facility] [place] [address] [id number] [place] [id number] Dec, [facility] [place] [address] [facility] [id number] [place] [id number] Nov, [facility] [place] [facility] [address] [facility] [id number], [place] [address] Nov, [facility] [place] [facility] [address] [id number], [place] [address] Nov, [facility] [place] [address] [id number] [place] [id number] Nov, [facility] [place] [address] [id number] [place] [id number] Oct, [facility] [place] [facility] [address] [id number], [place] [address] Oct, [facility] [place] [address] [id number] [place] [id number] Oct, [facility] [place] [facility] [address] [id number] [place] [address] Oct, [facility] [place] [facility] [address] [facility] [id number], [place] [address] Oct, [facility] [place] [facility] [address] [facility] [id number], [place] [address]99 Oct, [facility] [place] [address] [facility] [id number] [place] [address] Oct, [facility] [place] [facility] [address] [facility] [id number], [place] [address] Oct, [facility] [place] [facility] [address] [facility] [id number], [place] [address]- 00[address] Sep, [facility] [place] [facility] [address] [facility] [id number], [place] [address]69 Sep, [facility] [place] [address] [id number] [place] [id number] Sep, [facility] [place] [facility] [address] [facility] [id number], [place] [address]66 Sep, [facility] [place] [facility] [address] [facility] [id number], [place] [address]- [address] Sep, [facility] [place] [address] [id number] [place] [id number] Sep, [facility] [place] [address] [id number] [place] [address] Aug, [facility] [place] [facility] [address] [facility] [id number], [place] [address] Aug, [facility] [place] [facility] [address] [facility] [id number], [place] [address]- 1846 Aug, [facility] [place] [address] [id number] [place] [id number] Aug, [facility] [place] [address] [id number] [place] [address] Aug, [facility] [place] [facility] [address] [facility] [id number] [place] [address]- 1288 Aug, [facility] [place] [facility] [address] [facility] [id number] [place] [address] 8057 Aug, [facility] [place] [facility] [address] [facility] [id number], [place] [address] 7164 Aug, [facility] [place] [address] [facility] [id number] [place] [id number] Jul, [facility] [place] [facility] [address] [facility] [id number], [place] [address]- 8365 Jul, [facility] [place] [facility] [address] [facility] [id number], [place] [address]- 5515 Jul, [facility] [place] [address] [facility] [id number] [place] [id number] Jul, [facility] [place] [address] [facility] [id number] [place] [address] Jul, [facility] [place] [facility] [address] [facility] [id number], [place] [address]- [address] May, [facility] [place] [facility] [address] [facility] [id number], [place] [address] Apr, [facility] [place] [address] [facility] [id number] [place] [id number] Apr, [facility] [place] [address] [facility] [id number] [place] [id number] Apr, [facility] [place] [facility] [address] [facility] [id number], [place] [address] March, [facility] [place] [address] [id number] [place] [address] March, [facility] [place] [address] [id number] [place] [id number] March, [facility] [place] [address] [id number] [place] March, [facility] [place] [address] [id number] [place] [id number] March, [facility] [place] [address] [id number] [place] [id number] March, [facility] [address] [facility] [id number], [place] [address]- [address] March, [facility] [address] [facility] [id number], [place] [address]- 2546 March, [facility] [address] [id number], [place] [address] Feb, [facility] [place] [address] [id number] [place] [id number] Feb, [facility] [place] [address] [id number] [place] [address] Feb, [facility] [place] [address] [id number] [place] [address] Feb, [facility] [address]65[address], [place] [address] Feb, [facility] [place] [address] [id number] [place] [address] Feb, [facility] [place] [address] [id number] [place] [address] Jan, [facility] [place] [address] [id number] [place] [id number] Jan, [facility] [place] [address] [id number] [place] [id number] Dec, [facility] [place] [address] [id number] [place] [address] Dec, [facility] [address] [id number], [place] [address]- [address]12 Dec, [facility] [place] [address] [id number] [place] [id number] Dec, [facility] [place] [address] [id number] [place] [id number] Dec, [facility] [place] [address] [id number] [place] [address] Dec, [facility] [place] [address] [id number] [place] Dec, [facility] [address] [id number], [place] [address] Nov, [facility] [place] [address] [id number] [place] [address] Nov, [facility] [place] [address] [id number] [place] [address] Nov, [facility] [place] [address] [id number] [place] [address] Nov, [facility] [place] [address] [id number] [place] [id number] Nov, [facility] [address] [facility] [id number], [place] [address]- [address] Oct, [facility] [place] [address] [id number] [place] [address] Oct, [facility] [place] [address] [id number] [place] [id number] Oct, [facility] [place] [address] [id number] [place] [address] Oct, [facility] [address] [facility] [id number], [place] [address]- 9917 Oct, [facility] [place] [facility] [address] [facility] [id number], [place] [address]- 8874 Oct, [facility] [place] [facility] [address] [facility] [id number], [place] [address] [address]227 Oct, [facility] [place] [address] [id number] [place] [address] Sep, [facility] [place] [facility] [address] [facility] [id number], [place] [address]- 8273 Sep, [facility] [place] [facility] [address] [facility] [id number], [place] [address]- 9094 Sep, [facility] [place] [address] [id number] [place] [id number] Sep, [facility] [place] [address] [id number] [place] [id number] Sep, [facility] [place] [address] [id number] [place] 427[address] Sep, [facility] [place] [facility] [address] [facility] [id number], [place]- 8107 Sep, [facility] [place] [facility] [address] [facility] [id number], [place] [address]- 6883 Sep, [facility] [place] [facility] [address] [facility] [id number], [place] 1808 Sep, [facility] [place] [address] [facility] [id number] [place] [id number] Aug, [facility] [place] [facility] [address] [facility] [id number], [place] [address]- 5857 Aug, [facility] [place] [address] [facility] [id number] [place] [address] Aug, [facility] [place] [facility] [address] [facility] [id number], [place] 1394 Aug, [facility] [place] [facility] [address] [facility] [id number], [place] [address]- 4903 Aug, [facility] [place] [address] [id number] [place] [id number] Aug, [facility] [place] [address] [facility] [id number] [place] [address] Aug, [facility] [place] [facility] [address] [facility] [id number], [place] [address]- 6771 Aug, [facility] [place] [address] [id number] [place] [id number] Aug, [facility] [place] [address] [id number] [place] [id number] Jul, [facility] [place] [address] [id number] [place] [address]6826 Jun, [facility] [place] [address] [id number] [place] [id number] May, [facility] [place] [address] [id number] [place] [address] May, [facility] [place] [address] [id number] [place] 119019941 May, [facility] [place] [address] [id number] [place] [address]79[address] May, [facility] [place] [address] [id number] [place] 532339436 May, [facility] [place] [address] [id number] [place] [address]208 May, [facility] [place] [address] [id number] [place] 248[place]2332 May, [facility] [place] [address] [id number] [place] [address]97[place] Apr, [facility] [place] [address] [id number] [place] Apr, [facility] [place] [address] [id number] [place] 3[address]456 Apr, [facility] [place] [address] [id number] [place] [address] Apr, [facility] [place] [address] [id number] [place] 439784734 Apr, [facility] [place] [address] [id number] [place] [address]10[address] Apr, [facility] [place] [address] [id number] [place] [address] March, [facility] [place] [address] [id number] [place] 538[address]06[address] March, [facility] [place] [address] [id number] [place] 634[place]134 Feb, [facility] [place] [address] [id number] [place] [id number] 16 Feb, 2012 [facility] [place] [address] [id number] [place] 64[place]4626 Feb, [facility] [place] [address] [id number] [place] [address] Jan, [facility] [place] [address] [id number] [place] [id number] Jan, [facility] [place] [address] [id number] [place] [id number] 15 Jan, 2012 [facility] [place] [address] [id number] [place] [address]87472 Jan, [facility] [place] [address] [id number] [place] [address] Dec, [facility] [address], [place] [address]- 6772 Dec, [facility] [place] [address] [id number] [id number] Dec, [facility] [place] [address] [id number] [place] 83[place]65[place] Nov, [facility] [place] [address] [id number] [place] 390256814 Nov, [facility] [place] [address] [id number] [place] 540[address]24[address] Nov, [facility] [address] [id number], [place] [address]- 1705 Oct, [facility] [id number] [place] [address]- 6269 Oct, [facility] [id number] [place] [address]- 5724 Oct, [facility] [id number] [place] [address] 424401- 5646 Aug, [facility] [address] [id number] 7511 Aug, [facility] [place] [facility] [address] [id number] [place] [address]- 5316 Aug, [facility] [address] [id number] [place] [address]- 5461 March, [facility] [place] [facility] [address] [id number] [place] [address]- 4522 Oct, [facility] [place] [facility] [address] [id number] [place] [address]- 9420 Oct, [facility] [place] [facility] [address] [id number] [place] [address]- 2211 Sep, [facility] [place] [facility] [address] [id number] [place] [address]- 3621 Sep, [facility] [place] [facility] [address] [id number] [place] [address]- 8776 Sep, [facility] [place] [facility] [address] [id number] [place] [address]- 5592 Aug, [facility] [place] [facility] [address] [id number] [place] [address]- 1702 Aug, [facility] [place] [facility] [address] [id number] [place] [address]- 9761 Jun, [facility] [place] [facility] [address] [id number] [place] [address]- 5465 May, [facility] [place] [facility] [address] [id number] [place] [address]- 0267 Jan, [facility] [place] [facility] [address] [id number] [place] [address]- 1366 Nov, [facility] [place] [facility] [address] [id number] [place] [address]- 9372 Oct, [facility] [place] [facility] [address] [id number] [place] [address]- 3357 Sep, [facility] [place] [facility] [address] [id number] [place] [address]- 7828 Sep, [facility] [address] [facility] [id number], [place] [address]- 0356 Sep, [facility] [address] [id number], [place] [address]- 8527 Sep, [facility] [address] [id number], [place] [address]- 3607 Sep, [facility] [address] [id number]- 9688 Aug, [facility] [address] [id number], [place] [address]- 1355 Aug, [facility] [address] [id number], [place] [address]- 6525 Jul, [facility] [address] [id number], [place] [address]- 7581 Jun, IMMUNIZATIONS No Known Immunizations SOCIAL HISTORY Never Assessed REASON FOR VISIT [facility] PLAN OF CARE VITAL SIGNS MEDICATIONS Unknown [...] 08/2016 Hospitalization History chest pain ED visit [facility], pt scheduled for heart cath on May Hospitalization History [facility] 2012 Hospitalization History Chest pain-[facility] 12/22/16
--- OUTSIDE RECORDS SUMMARY | 2019-03-21 19:04 | XMS REPORT ---
Author Author Migration, Doctor Organization [facility] Address Unknown Phone Unavailable Care Team Providers Care Teletype Mechanic Name Role Phone Migration, Doctor Unavailable Unavailable PROBLEMS Type Condition ICD9-CM Code OTD44-MP Code Onset Dates Condition Status SNOMED Code Problem Serum creatinine raised R79.89 Active 137116917 Problem Episodic mood disorder F39 Active 89056036 Problem Generalized anxiety disorder F41.1 Active 91702020 Problem Lumbago with sciatica, left side M54.42 Active 006388114 Problem Dyslipidemia E78.5 Active 217530128 Problem Other chronic pain G89.29 Active 61759741 Problem Polyneuropathy associated with underlying disease G63 Active 538418068 Problem Syncope, unspecified syncope type R55 Active 820627239 Problem Recurrent major depressive disorder, in partial remission F33.41 Active 38704144 Problem Other seasonal allergic rhinitis J30.2 Active 899204484 Problem Hammertoe of left foot M20.42 Active 799190556 Problem Lumbago with sciatica, right side M54.41 Active 817778274 Problem 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 Active 995527634 Problem Type 2 diabetes mellitus with diabetic polyneuropathy E11.42 Active 15703029 Problem Stage 2 chronic kidney disease N18.2 Active 055204445 Problem Vitamin D deficiency E55.9 Active 36815626 ALLERGIES No Information ENCOUNTERS Encounter Location Date Diagnosis [place] [address] [address] Jan, FDC current use of insulin Z79.4 [place] [address] [address] Jan, [place] [address] [place] [address] 27732- 7705 Jan, Type 2 diabetes mellitus with diabetic polyneuropathy E11.42 [place] [address] [address] Jan, [facility] [address] [address]- 1306 Jan, Type 2 diabetes mellitus with diabetic polyneuropathy E11.42 [facility] [address] [place] [address] 35538- 8721 Dec, 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 [facility] [address] [place] [id number] [place] [address] 10255- 5456 Dec, [facility]DC current use of insulin Z79.4 [place] [address] [place] [address] 03252- 7446 Dec, [place] [address] [address] [id number] [place] [address] 95804- 4190 Nov, Hammertoe of left foot M20.42 ; Peroneal tendonitis of left lower extremity M76.72 ; Callus of foot L84 and Type 2 diabetes mellitus with diabetic polyneuropathy E11.42 [place] [address] [place] [address] 53833- 5202 Nov, [place] [address] [place] [id number] [place] [address] 58996- 9454 Nov, Encounter for immunization Z23 [facility] [address] [id number] [place] [address] 70683- 5970 Oct, [facility] [address] [place] [address] 77184- 3307 Oct, [facility] [address] [place] [address] 98027- 2897 Oct, Acute pancreatitis, unspecified complication status, unspecified pancreatitis type K85.90 [facility] [address] [place] [address] 45591- 4859 Sep, 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 [facility] [address] [place] [address] 28067- 4901 Sep, [place] [address] [place] [address] 92695- 5231 Sep, Type 2 diabetes mellitus with diabetic polyneuropathy E11.42 ; Stage 2 chronic kidney disease N18.2 and Recurrent major depressive disorder, in partial remission F33.41 [place] [address] [place] [id number] [place] [address] 51148- 6875 Sep, [facility]DC current use of insulin Z79.4 [place] [address] [place] [id number] [place] [address] 55944- 1429 Sep, Acute maxillary sinusitis, recurrence not specified J01.00 and Bronchiolitis J21.9 [place] [address] 76148- 5710 17 Jul, 2018 [place] [address] [place] [address] [id number] [place] [address] 38344- 5051 Jun, Type 2 diabetes mellitus with diabetic polyneuropathy E11.42 ; Open wound T14.8XXA ; 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 ; Stage 2 chronic kidney disease N18.2 and Episodic mood disorder F39 [place] [address] [id number] [place] [address] 29191- 3171 May, [place] [address] [place] [id number] [place] [address] 81025- 9049 March, [place] [address] [place] [address] [id number] [place] [address] 88748- 9531 March, Type 2 diabetes mellitus with diabetic [...] H60.502 and Non-adherence to medical treatment Z91.[address] [id number] [id number] Feb, Dental examination Z01.20 [facility] [address] [address]- 2420 Feb, Labile hypertension R09.89 ; Syncope, unspecified syncope type R55 ; Chest pain, unspecified type R07.9 and Dyslipidemia E78.5 [place] [address] [place] [id number] [place] [address] 25220- 1419 Feb, [facility] [address] [place] [address] [id number] [place] [address] 94540- 5150 Jan, [facility] [address] [place] [address] [id number] [place] [address] [id number] Jan, Dental examination Z01.20 [facility] [address] [place] [address] [id number] [place] [address] 57228- 6942 Jan, Acute non-recurrent maxillary sinusitis J01.00 and Dyslipidemia E78.[address] [id number] [place] [address] [id number] Jan, Dental examination Z01.20 and Dental caries K02.[address] [id number][place] [id number] Jan, [facility] [address] [place] [address] [id number] [place] [address] [id number] Dec, Dental examination Z01.20 [facility] [address] [place] [address] 96116 -3565 Dec, Seasonal allergic rhinitis, unspecified trigger J30.2 [facility] [address] [place] [address] 41985- 8390 Nov, [place] [address] [place] [id number] [place] [address] 82653- 3067 Nov, Type 2 diabetes mellitus with diabetic polyneuropathy E11.42 ; Dyslipidemia E78.5 ; Lumbago with sciatica, right side M54.41 ; Lumbago with sciatica, left side M54.42 ; 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 ; Polyneuropathy associated with underlying disease G63 ; Stage 2 chronic kidney disease N18.2 and Syncope, unspecified syncope type R55 [place] [address] 88479- 2147 Oct, Type 2 diabetes mellitus with diabetic polyneuropathy E11.42 ; Acute otitis externa of left ear, unspecified type H60.502 ; Overweight (BMI 25.0-29.9) E66.3 ; Dyslipidemia E78.5 and Polyneuropathy associated with underlying disease G63 [place] [address] 80141- 7354 Sep, [place] [address] 85712- 4489 Aug, Abnormal mammogram R92.8 [place] [address] 76619- 5814 Aug, Type 2 diabetes mellitus with diabetic polyneuropathy E11.42 [place] [address] 25632- 4362 Aug, [place] [address] 13571- 3727 Aug, Type 2 diabetes mellitus with diabetic polyneuropathy E11.42 ; Syncope, unspecified syncope type R55 ; Other chronic pain G89.29 and Encounter for immunization Z23 [place] [address] 52598- 1916 Aug, Type 2 diabetes mellitus with diabetic polyneuropathy E11.42 [place] [address] [place] [id number] [place] [address] 62497- 8364 Jul, Type 2 diabetes mellitus with diabetic polyneuropathy E11.42 and Serum creatinine raised R79.89 [place] [address] 92957- 0958 Jul, Type 2 diabetes mellitus with diabetic polyneuropathy E11.42 and Serum creatinine raised R79.89 [place] [address] 34096- 7476 May, [place] [address] [address]- 6799 May, [place] [address] [place] [id number] [place] [address] 29570- 3041 May, Head injury, initial encounter S09.90XA ; Facial pain R51 ; Neck pain M54.2 and Fall, initial encounter W19.XXXA [place] [address] [place] [id number] [place] [address] 11897- 0664 May, Type 2 diabetes mellitus with diabetic polyneuropathy E11.42 [place] [address] [place] [id number] [place] [address] 01657- 0738 May, [place] [address] [place] [id number] [place] [address] 22033- 5800 May, Type 2 diabetes mellitus with diabetic polyneuropathy E11.42 [place] [address] [place] [id number] [place] [address] 97081- 8301 May, Dyslipidemia E78.5 ; 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 ; Type 2 diabetes mellitus with diabetic polyneuropathy E11.42 ; Generalized anxiety disorder F41.1 and Other seasonal allergic rhinitis J30.2 [place] [address] [place] [address] 80467- 5969 Apr, Type 2 diabetes mellitus with diabetic polyneuropathy E11.42 [place] [address] [place] [address] 40834- 8020 March, [place] [address] [place] [address] 19848- 5489 March, Abnormal mammogram R92.8 [place] [address] [place] [id number] [place] [address] 26961- 6685 Feb, Abnormal mammogram R92.8 [place] [address] [place] [address] 98862- 2705 Feb, Diabetes type 2, uncontrolled E11.65 [place] [address] [address]- 7375 06 Feb, 2017 Screening for breast cancer Z12.39 [place] [address] [address]- 4357 27 Jan, 2017 Screening for breast cancer Z12.39 [place] [address] [place] [address] 37363- 2178 Jan, Type 2 diabetes mellitus with diabetic polyneuropathy E11.42 ; 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 ; Other viral agents as the cause of diseases classified elsewhere B97.89 and Acute upper respiratory infection, unspecified J06.9 [place] [address] [place] [address] 29181- 0600 Jan, [place] [address] [place] [id number] [place] [address] 85708- 7276 17 Dec, 2016 Diabetes type 2, uncontrolled E11.65 ; Dyslipidemia E78.5 ; Generalized anxiety disorder F41.1 ; Depression, unspecified depression type F32.9 ; FDC current use of insulin Z79.4 and Polyneuropathy associated with underlying disease G63 [place] [address] [address]- 4260 16 Dec, 2016 [place] [address] [address]- 0996 14 Dec, 2016 [place] [address] [address]- 5736 Dec, [place] [address] [address]- 1237 Dec, [place] [address] [place] [id number] [place] [address] 32612- 7121 Oct, Well woman exam Z01.419 ; Screening for breast cancer Z12.39 ; FDC current use of insulin Z79.4 ; Type 2 diabetes mellitus without complications E11.9 and Encounter for immunization Z23 [place] [address] [place] [id number] [place] [address] 51155- 0797 Sep, [place] [address] [place] [id number] [place] [address] 15094- 5525 Sep, Diabetes type 2, uncontrolled E11.65 ; Dyslipidemia E78.5 and Depression, unspecified depression type F32.9 [place] [address] [place] [id number] [place] [address] 98198- 3335 Aug, Diabetes type 2, uncontrolled E11.65 ; Encounter for immunization Z23 ; Nasal congestion R09.81 and Ear pressure, bilateral H93.8X3 [place] [address] 60577- 9023 Jul, Eustachian tube dysfunction, left H69.82 [place] [address] [place] [id number] [place] [address] 82070- 6080 Jun, [place] [address] 22477- 2017 Jun, Hospital discharge follow-up Z09 ; Syncope, unspecified syncope type R55 and Acute suppurative otitis media of left ear without spontaneous rupture of tympanic membrane, recurrence not specified H66.002 [place] [address] [place] [id number] [place] [address] 33524- 3529 May, [place] [address] [place] [id number] [place] [address] 48340- 9767 May, [place] [address] [place] [id number] [place] [address] 50385- 6311 May, [place] [address] [place] [id number] [place] [address] 41882- 1601 May, Diabetes type 2, uncontrolled E11.65 ; [...] G47.9 and Generalized anxiety disorder F41.1 [facility] [address] [address] 2546 March, [facility] [place] [id number] [place] [address] [id number] March, Syncope, unspecified syncope type R55 and Depression, unspecified depression type F32.9 [facility] [place] [address] [place] [id number] [place] [address] [id number] March, Orthostatic hypotension I95.1 [facility] [place] [address] [place] [address] [id number] [place] [address] [id number] March, [facility] [address] [address]- 2546 March, [facility] [id number] [place] [address] [id number] Feb, [facility] [address] [id number] [id number] Feb, Dental examination Z01.20 [facility] [place] [id number] [place] [address] [id number] Jan, [facility] [place] [address] [place] [id number] [place] [address] [id number] Jan, [facility] [id number] [place] [address] [id number] Dec, Diabetes type 2, uncontrolled E11.65 [facility] [place] [id number] [place] [address] [id number] Nov, [facility] [address] [id number] [id number] Nov, Encounter for dental examination Z01.20 [facility] [address] [id number] [id number] Nov, Dental examination Z01.20 [facility] [id number], [place] [address] Sep, Diabetes type 2, uncontrolled E11.[address] [facility] [address] [id number] [place] [id number] Sep, Encounter for dental examination Z01.20 and Dental caries, unspecified K02.9 [facility] [place] [id number], [place] [id number] Sep, Bipolar 2 disorder F31.81 [facility] [id number], [place] [id number] Aug, [facility] [id number], [place] [id number] Aug, Follow up V67.9 [facility] [address] [address]- 9491 Jul, Bipolar disorder, unspecified 296.80 [facility] [id number], [place] [address] Jul, Thyroid enlarged 240.9 and Bipolar disorder, unspecified 296.80 [facility] [address] [id number] Jun, Diabetes mellitus type 2, uncontrolled 250.02 ; Bipolar disorder, unspecified 296.80 and Rash 782.1 [facility] [id number], [place] [id number] Jun, [facility] [id number], [place] [id number] May, Urinary tract infection 599.0 [facility] [id number], [place] [id number] May, Urinary tract infection 599.0 [facility] [place] [id number], [place] [id number] May, [facility] [place] [id number], [place] [id number] May, Diabetes mellitus type 2, uncontrolled 250.02 and Pica in adults 307.52 [facility] [place] [id number], [place] [address] Apr, Follow up V67.9 and Diabetes mellitus type 2, uncontrolled 250.02 [facility] [place] [address] [id number] Apr, [facility] [address] [address]- 2546 Apr, [facility] [id number], [place] [address] Apr, Hyperlipidemia 272.4 [facility] [address] [place] [address] [id number] [id number] March, Diabetes type 2, uncontrolled 250.02 [facility] [id number] [place] [address] [id number] March, Diabetes mellitus type 2, uncontrolled 250.02 [facility] [id number], [place] [address] March, Diabetes type 2, uncontrolled 250.02 [facility] [id number] [place] [address] [id number] March, [facility] [id number], [place] [id number] March, [facility] [id number], [place] [address] Feb, [facility] [place] [facility] [address] [address]- 2546 Feb, [facility] [place] [facility] [address] [address]- 2546 Feb, [facility] [address] [place] [id number][place] [id number] Jan, [facility] [place] [facility] [address] [address]- 2546 Jan, [facility] [place] [facility] [address] [id number] [address]- 2546 Jan, [facility] [address] [place] [id number], [place] [id number] Jan, [facility] [place] [facility] [address] [address]- 2546 Jan, [facility] [place] [facility] [address] [address]- 0476 Jan, [facility] [address] [facility] [id number][place] [id number] Jan, [facility] [place] [facility] [address] [facility] [id number] [place] [address]- 9037 Jan, [facility] [place] [facility] [address] [id number] [address]- 5477 Dec, [facility] [address] [facility] [id number] [place] [id number] Dec, [facility] [place] [facility] [address] [id number] [address]- 1093 Dec, [facility] [address] [facility] [id number] [place] [id number] Dec, [facility] [place] [facility] [address] [id number] [address]- 6996 Dec, [facility] [address] [place] [id number], [place] 197020202 Dec, [facility] [place] [facility] [address] [address]- 1078 Dec, [facility] [place] [facility] [address] [address]- 1305 Dec, [facility] [address] [place] [id number], [place] [id number] Dec, [facility] [address] [place] [id number], [place] [id number] Dec, [facility] [place] [facility] [address] [address]- 2008 Dec, [facility] [place] [facility] [address] [facility] [id number] [place] [address]- 8022 Nov, [facility] [place] [facility] [address] [facility] [id number] [place] [address]- 8492 Oct, [facility] [place] [facility] [address] [place] [id number] [address]- 3586 Oct, [facility] [address] [facility] [id number], [place] [id number] Sep, [facility] [address] [id number] [place] [address]- 8596 Sep, [facility] [address] [id number], [place] [id number] Sep, [facility] [place] [facility] [address] [facility] [id number] [place] [address]- 7291 Sep, [facility] [address] [facility] [id number], [place] [id number] Aug, [facility] [place] [facility] [address] [facility] [id number] [place] [address]- 3837 Aug, [facility] [address] [facility] [id number], [place] [id number] Aug, [facility] [place] [facility] [address] [address]- 7609 Aug, [facility] [place] [facility] [address] 0811 Jul, [facility] [place] [facility] [address] [facility] [id number] [place] [address]- 7235 Jul, [facility] [address] [facility] [id number], [place] [id number] Jul, [facility] [place] [facility] [address] [place] [id number] [address]- 2932 Jul, [facility] [address] [facility] [id number], [place] [id number] Jun, [facility] [address] [facility] [id number], [place] 437509201 Jun, [facility] [place] [facility] [address] [facility] [id number] [place]- 5740 Jun, [facility] [place] [facility] [address] [facility] [id number] [place] [address]- 0055 Jun, [facility] [address] [facility] [id number], [place] [id number] Jun, [facility] [place] [facility] [address] [id number] [place] [address]- 3586 Jun, [facility] [address] [id number] [place] [id number] May, [facility] [place] [facility] [address] [id number] [place] [address]- 0026 May, [facility] [place] [facility] [address] [facility] [id number] [place] [address]- 5772 Apr, [facility] [place] [facility] [address] [id number] [place] [address]- 3435 Apr, [facility] [address] [facility] [id number] [place] [id number] Apr, [facility] [place] [facility] [address] [facility] [id number] [place] [address]- 6596 Apr, [facility] [place] [facility] [address] [facility] [id number] [place] [address] Apr, [facility] [address] [facility] [id number] [id number] March, [facility] [place] [facility] [address] [facility] [id number] [place] [address] March, [facility] [place] [facility] [address] [facility] [id number] [place] [address] March, [facility] [address] [facility] [id number][place] [id number] March, [facility] [place] [facility] [address] [facility] [id number] [place] [address] March, [facility] [address] [facility] [id number] [place] [id number] March, [facility] [place] [facility] [address] [facility] [id number] [place] [address] March, [facility] [address] [facility] [id number] [place] [id number] Feb, [facility] [place] [facility] [address] [facility] [id number] [place] [address] Feb, [facility] [place] [facility] [address] [facility] [id number] [place] [address] Jan, [facility] [address] [id number] [place] [id number] Jan, [facility] [place] [facility] [address] [facility] [id number] [place] [address] Jan, [facility] [place] [facility] [address] [facility] [id number] [place] [address] Jan, [facility] [address] [id number] [place] [id number] Jan, [facility] [address] [id number] [place] [id number] Dec, [facility] [place] [facility] [address] [facility] [id number] [place] [address] Dec, [facility] [place] [facility] [address] [id number] [place] [address] [address] Dec, [facility] [place] [address] [id number] [place] [id number] Dec, [facility] [place] [facility] [address] [facility] [id number] [place] [address] 2546 Dec, [facility] [address] [facility] [id number][place] [id number] Dec, [facility] [place] [facility] [id number] [address] Dec, [facility] [place] [facility] [address] [facility] [id number] [place] [address]- [address] Dec, [facility] [address] [id number] [place] [id number] Dec, [facility] [address] [facility] [id number] [place] [id number] Nov, [facility] [place] [facility] [address] [facility] [id number] [place] [address] Nov, [facility] [place] [facility] [address] [id number] [place] [address] Nov, [facility] [address] [id number] [place] [id number] Nov, [facility] [address] [id number] [place] [id number] Oct, [facility] [place] [facility] [address] [id number] [place] [address] Oct, [facility] [address] [id number] [place] [id number] Oct, [facility] [place] [facility] [address] [id number] [place] [address]- 4291 Oct, [facility] [place] [facility] [address] [facility] [id number] [place] [address]- 0987 Oct, [facility] [place] [facility] [address] [facility] [id number] [place] [address]- 6583 Oct, [facility] [address] [facility] [id number][place] [id number] Oct, [facility] [place] [facility] [address] [facility] [id number] [place] [address]- 8938 Oct, [facility] [place] [facility] [address] [facility] [id number] [place] [address]- 8974 Sep, [facility] [place] [facility] [address] [facility] [id number] [place] [address]- [address]16 Sep, [facility] [address] [id number][place] [id number] Sep, [facility] [place] [facility] [address] [facility] [id number] [place] [address]- 9696 Sep, [facility] [place] [facility] [address] [facility] [id number] [place] [address]- 2876 Sep, [facility] [address] [id number][place] [id number] Sep, [facility] [address] [id number], [place] [address]677[address] Aug, [facility] [place] [facility] [address] [facility] [id number] [place] [address]- 7479 Aug, [facility] [place] [facility] [address] [facility] [id number] [place] [address]- 3956 Aug, [facility] [address] [id number][place] [id number] Aug, [facility] [address] [id number], [place] [id number] Aug, [facility] [place] [facility] [address] [facility] [id number] [place] [address]- [address]139 Aug, [facility] [place] [facility] [address] [facility] [id number] [place] [address]- 2785 Aug, [facility] [place] [facility] [address] [facility] [id number] [place] [address]- 9191 Aug, [facility] [address] [facility] [id number][place] [id number] Jul, [facility] [place] [facility] [address] [facility] [id number] [place] [address]- 4605 Jul, [facility] [place] [facility] [address] [facility] [id number] [place] [address]- 0645 Jul, [facility] [address] [facility] [id number], [place] 26256[address]38 Jul, [facility] [address] [facility] [id number], [place] 325695047 Jul, [facility] [place] [facility] [address] [facility] [id number] [place] [address]- 2036 May, [facility] [place] [facility] [address] [facility] [id number] [place] [address]- 2052 Apr, [facility] [address] [facility] [id number], [place] [id number] Apr, [facility] [address] [facility] [id number], [place] 745369408 Apr, [facility] [place] [facility] [address] [facility] [id number] [place] [address]- 2546 March, [facility] [address] [id number] [place] [address]3948 March, [facility] [address] [id number] [place] [id number] March, [facility] [address] [id number] [place] [id number] March, [facility] [address] [id number] [place] [id number] March, [facility] [address] [id number] [place] [id number] March, [facility] [address] [facility] [id number] [place] [address]- 2546 March, [facility] [address] [facility] [id number] [place] [address]- 2546 March, [facility] [address] [id number] [place] [address]46 Feb, [facility] [address] [id number] [place] [id number] Feb, [facility] [address] [id number] [place] [id number] Feb, [facility] [address] [id number] [place] [id number] Feb, [facility] [address]65100[place] [address] Feb, [facility] [address] [id number] [place] [id number] Feb, [facility] [address] [id number] [place] [id number] Jan, [facility] [address] [id number] [place] [id number] Jan, [facility] [address] [id number] [place] [id number] Dec, [facility] [address] [id number] [place] [id number] Dec, [facility] [address] [id number] [place] [address]- 1036 Dec, [facility] [address] [id number] [place] [id number] Dec, [facility] [address] [id number] [place] [id number] Dec, [facility] [address] [id number] [place] [id number] Dec, [facility] [address] [id number] [place] [id number] Dec, [facility] [address] [id number] [place] [address]- 4971 Nov, [facility] [address] [id number] [id number] Nov, [facility] [address] [id number] [place] [id number] Nov, [facility] [address] [id number] [place] [id number] Nov, [facility] [address] [id number] [place] [id number] Nov, [facility] [address] [facility] [id number] [place] [address]- 5636 Oct, [facility] [address] [id number] [place] [id number] Oct, [facility] [address] [id number] [place] [id number] Oct, [facility] [address] [id number], [place] [address]27154840 Oct, [facility] [address] [facility] [id number] [place] [address]- 7381 Oct, [facility] [place] [facility] [address] [facility] [id number] [place] [address]- 1295 Oct, [facility] [place] [facility] [address] [facility] [id number] [place]459[place]- 5271 Oct, [facility] [address] [id number], [place] [id number] Sep, [facility] [place] [facility] [address] [facility] [id number] [place] [address]- 9884 Sep, [facility] [place] [facility] [address] [facility] [id number] [place] [address]- 9823 Sep, [facility] [address] [id number] [place] [id number] Sep, [facility] [address] [id number], [place] [id number] Sep, [facility] [address] [id number], [place] [id number] Sep, [facility] [place] [facility] [address] [facility] [id number] [place] 4074 Sep, [facility] [place] [facility] [address] [facility] [id number] [place] [address]- 3005 Sep, [facility] [place] [facility] [address] [facility] [id number] [place] 6436[place]- 5119 Sep, [facility] [address] [facility] [id number], [place] 027922010 Aug, [facility] [place] [facility] [address] [facility] [id number] [place] [address]- 5475 Aug, [facility] [address] [facility] [id number][place] 343299759 Aug, [facility] [place] [facility] [address] [facility] [id number] [place] 3313 Aug, [facility] [place] [facility] [address] [facility] [id number] [place] [address]- 7734 Aug, [facility] [address] [id number], [place] [id number] Aug, [facility] [address] [facility] [id number], [place] [id number] Aug, [facility] [place] [facility] [address] [facility] [id number] [place] [address]- 9267 Aug, [facility] [address] [id number] [place] [id number] Aug, [facility] [place] [address] [id number] [place] 139146552 Jul, [facility] [address] [id number] [place] [id number] Jun, [facility] [address] [id number] [place] 868008063 May, [facility] [place] [address] [id number] [place] [id number] May, [facility] [address] [id number] [place] [id number] May, [facility] [address] [id number] [place] 165929281 May, [facility] [address] [id number] [place] 278183873 May, [facility] [address] [id number] [place] 602628255 May, [facility] [place] [address] [id number] [place] [id number] May, [facility] [address] [id number] [place] 158818130 Apr, [facility] [place] [address] [id number] [place] 290429454 Apr, [facility] [address] [id number] [place] [id number] Apr, [facility] [address] [id number] [place] 025909010 Apr, [facility] [place] [address] [id number] [place] 934471946 Apr, [facility] [address] [id number] [place] [id number] Apr, [facility] [address] [id number] [place] 517343668 March, [facility] [address] [id number] [place] 504693277 March, [facility] [place] [address] [id number] [place] 855432848 Feb, [facility] [place] [address] [id number] [place] [id number] 16 Feb, 2012 [facility] [place] [address] [id number] [place] 539199243 Feb, [facility] [place] [address] [id number] [place] [id number] Jan, [facility] [place] [address] [id number] [place] 875821977 Jan, [facility] [place] [address] [id number] [place] 639280238 15 Jan, 2012 [facility] [place] [address] [id number] [place] [id number] Jan, [facility] [place] [address] [id number] [place] [id number] Dec, [facility] [id number] [address]- 4483 Dec, [facility] [place] [address] [id number] [place] [id number] Dec, [facility] [place] [address] [id number] [place] [id number] Nov, [facility] [place] [address] [id number] [place] [id number] Nov, [facility] [place] [address] [id number] [place] [id number] Nov, [facility] [address] [id number] [place] [address]- 1440 Oct, [facility] [id number] [place] [address] 86575089- 9903 Oct, [facility] [id number] [place] [address] 695919- 6262 Oct, [facility] [id number] [place] [address] 828578- 8172 Aug, [facility] [address] [id number] [place]- 4886 Aug, [facility] [place] [facility] [address] [id number] [place] [address]- 1629 Aug, [facility] [address] [id number] [place] [address]- 2528 March, [facility] [place] [facility] [address] [id number] [place] [address]- 1669 Oct, [facility] [place] [facility] [address] [id number] [place] [address]- 3567 Oct, [facility] [place] [facility] [address] [id number] [place] [address]- 6818 Sep, [facility] [place] [facility] [address] [id number] [place] [address]- 8963 Sep, [facility] [place] [facility] [address] [id number] [place] [address]- 7491 Sep, [facility] [place] [facility] [address] [id number] [place] [address]- 5152 Aug, [facility] [place] [facility] [address] [id number] [place] [address]- 5069 Aug, [facility] [place] [facility] [address] [id number] [place] [address]- 7922 Jun, [facility] [place] [facility] [address] [id number] [place] [address]- 9762 May, [facility] [place] [facility] [address] [id number] [place] [address]- 2838 Jan, [facility] [place] [facility] [address] [id number] [place] [address]- 8058 Nov, [facility] [place] [facility] [address] [id number] [place] [address]- 1513 Oct, [facility] [place] [facility] [address] [id number] [place] [address]- 9941 Sep, [facility] [place] [facility] [address] [id number] [place] [address]- 8922 Sep, [facility] [address] [facility] [id number] [place] [address]- 6197 Sep, [facility] [address] [id number] [address]- 4921 Sep, [facility] [address] [id number] [address]- 8803 Sep, [facility] [address] [id number]- 2512 Aug, [facility] [address] [id number] [address]- 9262 Aug, [facility] [address] [id number] [address]- 9015 Jul, [facility] [address] [id number] [address]- 7418 Jun, IMMUNIZATIONS No Known Immunizations SOCIAL HISTORY Never Assessed REASON FOR VISIT [facility] [place] CARE VITAL SIGNS MEDICATIONS Unknown [...] 08/2016 Hospitalization History chest pain ED visit [facility], pt scheduled for heart cath on May Hospitalization History [facility] 2012 Hospitalization History Chest pain-[facility] 12/22/16
--- OUTSIDE RECORDS SUMMARY | 2019-03-21 19:05 | XMS REPORT ---
Author Author Migration, Doctor Organization [facility] Address Unknown Phone Unavailable Care Team Providers Care Casino Surveillance Officer Name Role Phone Migration, Doctor Unavailable Unavailable PROBLEMS Type Condition ICD9-CM Code BXR53-QK Code Onset Dates Condition Status SNOMED Code Problem Serum creatinine raised R79.89 Active 759460361 Problem Episodic mood disorder F39 Active 82156746 Problem Generalized anxiety disorder F41.1 Active 71855614 Problem Lumbago with sciatica, left side M54.42 Active 301679989 Problem Dyslipidemia E78.5 Active 693553630 Problem Other chronic pain G89.29 Active 73696986 Problem Polyneuropathy associated with underlying disease G63 Active 598146862 Problem Syncope, unspecified syncope type R55 Active 267706641 Problem Recurrent major depressive disorder, in partial remission F33.41 Active 05849817 Problem Other seasonal allergic rhinitis J30.2 Active 920420831 Problem Hammertoe of left foot M20.42 Active 776839870 Problem Lumbago with sciatica, right side M54.41 Active 880474462 Problem 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 Active 187128392 Problem Type 2 diabetes mellitus with diabetic polyneuropathy E11.42 Active 52063241 Problem Stage 2 chronic kidney disease N18.2 Active 083519099 Problem Vitamin D deficiency E55.9 Active 02927752 ALLERGIES No Information ENCOUNTERS Encounter Location Date Diagnosis [place] [address], [place] [address] Jan, [facility] current use of insulin Z79.4 [place] [address], [place] [address] Jan, [place] [id number] [place] [address] 27562- 3969 Jan, Type 2 diabetes mellitus with diabetic polyneuropathy E11.42 [place] [address], [place] [address] Jan, [facility] [address], [place] [address] 4[address] Jan, Type 2 diabetes mellitus with diabetic polyneuropathy E11.42 [facility] [address] [place] [address] 02960- 2885 Dec, 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 [facility] [address] [place] [id number] [place] [address] 28593- 2179 Dec, [facility] current use of insulin Z79.4 [place] [id number] [place] [address] 14552- 2303 Dec, [place] [id number] [place] [address] 97533- 4758 Nov, Hammertoe of left foot M20.42 ; Peroneal tendonitis of left lower extremity M76.72 ; Callus of foot L84 and Type 2 diabetes mellitus with diabetic polyneuropathy E11.42 [place] [address] [place] [address] 42210- 3368 Nov, [place] [address] [address] [id number] [place] [address] 04696- 1589 Nov, Encounter for immunization Z23 [facility] [id number] [place] [address] 46267- 7125 Oct, [facility] [id number] [place] [address] 65990- 7849 Oct, [facility] [id number] [place] [address] 14437- 5960 Oct, Acute pancreatitis, unspecified complication status, unspecified pancreatitis type K85.90 [facility] [address] [place] [address] 13438- 8198 Sep, 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 [facility] [address] [place] [address] 58890- 5914 Sep, [place] [address] [place] [address] 82705- 0965 Sep, Type 2 diabetes mellitus with diabetic polyneuropathy E11.42 ; Stage 2 chronic kidney disease N18.2 and Recurrent major depressive disorder, in partial remission F33.41 [place] [address] [place] [address] [id number] [place] [address] 05869- 6425 Sep, [facility] current use of insulin Z79.4 [place] [address] [address] [id number] [place] [address] 02616- 3965 Sep, Acute maxillary sinusitis, recurrence not specified J01.00 and Bronchiolitis J21.9 [place] [address] [address]- 8758 17 Jul, 2018 [place] [address] [place] [address] [id number] [place] [address] 95465- 4212 Jun, Type 2 diabetes mellitus with diabetic polyneuropathy E11.42 ; Open wound T14.8XXA ; 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 ; Stage 2 chronic kidney disease N18.2 and Episodic mood disorder F39 [place] [address] [address] [id number] [place] [address] 69878- 6730 May, [place] [address] [address] [id number] [place] [address] 13082- 9014 March, [place] [address] [address] [id number] [place] [address] 88831- 9051 March, Type 2 diabetes mellitus with diabetic [...] H60.502 and Non-adherence to medical treatment Z91.[address] [id number] [place] [id number] Feb, Dental examination Z01.20 [facility] [address], [place] [address]- 6781 Feb, Labile hypertension R09.89 ; Syncope, unspecified syncope type R55 ; Chest pain, unspecified type R07.9 and Dyslipidemia E78.5 [place] [address] [place] [address] [id number] [place] [address] 09017- 6629 Feb, [facility] [address] [id number] [place] [address] 97613- 4107 Jan, [facility] [place] [address] [place] [address] [id number] [place] [address] [id number] Jan, Dental examination Z01.20 [facility] [address] [place] [id number] [place] [address] 56120- 8168 Jan, Acute non-recurrent maxillary sinusitis J01.00 and Dyslipidemia E78.[address] [id number] [place] [address] [id number] Jan, Dental examination Z01.20 and Dental caries K02.[address] [id number] [place] [id number] Jan, [facility] [address] [place] [address] [id number] [place] [address] [id number] Dec, Dental examination Z01.20 [facility] [address] [place] [address] 61134 -1750 Dec, Seasonal allergic rhinitis, unspecified trigger J30.2 [facility] [address] [place] [address] 43095- 5052 Nov, [place] [address] [place] [id number] [place] [address] 94271- 4682 Nov, Type 2 diabetes mellitus with diabetic polyneuropathy E11.42 ; Dyslipidemia E78.5 ; Lumbago with sciatica, right side M54.41 ; Lumbago with sciatica, left side M54.42 ; 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8 [place] [address] 03191- 3443 Aug, Type 2 diabetes mellitus with diabetic polyneuropathy E11.42 [place] [address] 73045- 8935 Aug, [place] [address] 84768- 7104 Aug, Type 2 diabetes mellitus with diabetic polyneuropathy E11.42 ; Syncope, unspecified syncope type R55 ; Other chronic pain G89.29 and Encounter for immunization Z23 [place] [address] 06021- 2978 Aug, Type 2 diabetes mellitus with diabetic polyneuropathy E11.42 [place] [address] [address] [id number] [place] [address] 31173- 4543 Jul, Type 2 diabetes mellitus with diabetic polyneuropathy E11.42 and Serum creatinine raised R79.89 [place] [address] 58907- 6495 Jul, Type 2 diabetes mellitus with diabetic polyneuropathy E11.42 and Serum creatinine raised R79.89 [place] [address] 37798- 5840 May, [place] [address], [place] [address]- 4512 May, [place] [address] [place] [id number] [place] [address] 33109- 5908 May, Head injury, initial encounter S09.90XA ; Facial pain R51 ; Neck pain M54.2 and Fall, initial encounter W19.XXXA [place] [address] [place] [id number] [place] [address] 57756- 3010 May, Type 2 diabetes mellitus with diabetic polyneuropathy E11.42 [place] [address] [place] [id number] [place] [address] 79815- 5315 May, [place] [address] [place] [id number] [place] [address] 41991- 3124 May, Type 2 diabetes mellitus with diabetic polyneuropathy E11.42 [place] [address] [place] [id number] [place] [address] 18686- 9767 May, Dyslipidemia E78.5 ; 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 ; Type 2 diabetes mellitus with diabetic polyneuropathy E11.42 ; Generalized anxiety disorder F41.1 and Other seasonal allergic rhinitis J30.2 [place] [address] [place] [address] 78374- 9735 Apr, Type 2 diabetes mellitus with diabetic polyneuropathy E11.42 [place] [address] [place] [address] 01166- 8594 March, [place] [address] [place] [address] 07685- 7530 March, Abnormal mammogram R92.8 [place] [address] [place] [id number] [place] [address] 62004- 9581 Feb, Abnormal mammogram R92.8 [place] [address] [place] [address] 72180- 9432 Feb, Diabetes type 2, uncontrolled E11.65 [place] [address], [place] [address]- 5875 06 Feb, 2017 Screening for breast cancer Z12.39 [place] [address], [place] [address] 1998 27 Jan, 2017 Screening for breast cancer Z12.39 [place] [address] [place] [address] 14521- 5379 Jan, Type 2 diabetes mellitus with diabetic polyneuropathy E11.42 ; 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 ; Other viral agents as the cause of diseases classified elsewhere B97.89 and Acute upper respiratory infection, unspecified J06.9 [place] [address] [place] [address] 40193- 3166 Jan, [place] [address] [place] [address] [id number] [place] [address] 82759- 6847 17 Dec, 2016 Diabetes type 2, uncontrolled E11.65 ; Dyslipidemia E78.5 ; Generalized anxiety disorder F41.1 ; Depression, unspecified depression type F32.9 ; [facility] current use of insulin Z79.4 and Polyneuropathy associated with underlying disease G63 [place] [address], [place] [address]- 4929 16 Dec, 2016 [place] [address], [place] [address]- 4850 14 Dec, 2016 [place] [address], [place] [address]- 7901 Dec, [place] [address], [place] [address]- 7667 Dec, [place] [address] [place] [id number] [place] [address] 74885- 9984 Oct, Well woman exam Z01.419 ; Screening for breast cancer Z12.39 ; [facility] current use of insulin Z79.4 ; Type 2 diabetes mellitus without complications E11.9 and Encounter for immunization Z23 [place] [address] [place] [id number] [place] [address] 08836- 5347 Sep, [place] [address] [place] [id number] [place] [address] 49037- 3287 Sep, Diabetes type 2, uncontrolled E11.65 ; Dyslipidemia E78.5 and Depression, unspecified depression type F32.9 [place] [address] [place] [id number] [place] [address] 24150- 1484 Aug, Diabetes type 2, uncontrolled E11.65 ; Encounter for immunization Z23 ; Nasal congestion R09.81 and Ear pressure, bilateral H93.8X3 [place] [address] 03392- 4832 Jul, Eustachian tube dysfunction, left H69.82 [place] [address] [place] [id number] [place] [address] 46134- 2625 Jun, [place] [address] 71598- 3767 Jun, Hospital discharge follow-up Z09 ; Syncope, unspecified syncope type R55 and Acute suppurative otitis media of left ear without spontaneous rupture of tympanic membrane, recurrence not specified H66.002 [place] [address] [place] [id number] [place] [address] 46001- 4788 May, [place] [address] [place] [id number] [place] [address] 27520- 3650 May, [place] [address] [place] [id number] [place] [address] 64342- 6247 May, [place] [address] [place] [id number] [place] [address] 09076- 4797 May, Diabetes type 2, uncontrolled E11.65 ; [...] disturbance G47.9 and Generalized anxiety disorder F41.1 [facility] [address], [place] [address] 2546 March, [facility] [place] [id number] [place] [address] [id number] March, Syncope, unspecified syncope type R55 and Depression, unspecified depression type F32.9 [facility] [place] [address] [id number] [place] [address] [id number] March, Orthostatic hypotension I95.1 [facility] [place] [address] [place] [id number] [place] [address] [id number] March, [facility] [address], [place] [address]- 2546 March, [facility] [place] [id number] [place] [address] [id number] Feb, [facility] [place] [address] [id number] [place] [id number] Feb, Dental examination Z01.20 [facility] [place] [id number] [place] [address] [id number] Jan, [facility] [place] [address] [place] [id number] [place] [address] [id number] Jan, [facility] [place] [id number] [place] [address] [id number] Dec, Diabetes type 2, uncontrolled E11.65 [facility] [place] [id number] [place] [address] [id number] Nov, [facility] [address] [id number] [place] [id number] Nov, Encounter for dental examination Z01.20 [facility] [address] [id number] [place] [id number] Nov, Dental examination Z01.20 [facility] [place] [id number], [place] [address] Sep, Diabetes type 2, uncontrolled E11.[address] [facility] [address] [address] [id number] [place] [id number] Sep, Encounter for dental examination Z01.20 and Dental caries, unspecified K02.9 [facility] [place] [id number], [place] [id number] Sep, Bipolar 2 disorder F31.81 [facility] [place] [id number], [place] [id number] Aug, [facility] [place] [id number], [place] [id number] Aug, Follow up V67.9 [facility] [address] [address]39[address]- 3475 Jul, Bipolar disorder, unspecified 296.80 [facility] [place] [id number], [place] [address] Jul, Thyroid enlarged 240.9 and Bipolar disorder, unspecified 296.80 [facility] [address] [id number] Jun, Diabetes mellitus type 2, uncontrolled 250.02 ; Bipolar disorder, unspecified 296.80 and Rash 782.1 [facility] [place] [id number], [place] [id number] Jun, [facility] [place] [id number], [place] [address] May, Urinary tract infection 599.0 [facility] [place] [id number], [place] [address] May, Urinary tract infection 599.0 [facility] [place] [id number], [place] [id number] May, [facility] [place] [id number], [place] [address] May, Diabetes mellitus type 2, uncontrolled 250.02 and Pica in adults 307.52 [facility] [place] [id number], [place] [address] Apr, Follow up V67.9 and Diabetes mellitus type 2, uncontrolled 250.02 [facility] [place] [address] [id number] Apr, [facility] [address], [place] [address]- 2546 Apr, [facility] [id number], [place] [address] Apr, Hyperlipidemia 272.4 [facility] [address] [place] [id number][place] [id number] March, Diabetes type 2, uncontrolled 250.02 [facility] [id number] [place] [address] [id number] March, Diabetes mellitus type 2, uncontrolled 250.02 [facility] [id number], [place] [address] March, Diabetes type 2, uncontrolled 250.02 [facility] [id number] [place] [address] [id number] March, [facility] [id number], [place] [id number] March, [facility] [id number], [place] [address] Feb, [facility] [place] [facility] [address], [place] [address]- 2546 Feb, [facility] [place] [facility] [address], [place] [address]- 2546 Feb, [facility] [address] [place] [id number], [place] [id number] Jan, [facility] [place] [facility] [address], [place] [address]- 2546 Jan, [facility] [place] [facility] [address] [id number], [place] [address]- 2546 Jan, [facility] [address] [place] [id number], [place] [id number] Jan, [facility] [place] [facility] [address], [place] [address]- 2546 Jan, [facility] [place] [facility] [address], [place] [address]- 1626 Jan, [facility] [address] [facility] [id number][place] [id number] Jan, [facility] [place] [facility] [address] [facility] [id number], [place] [address]- 3823 Jan, [facility] [place] [facility] [id number], [place] [address]- 6697 Dec, [facility] [address] [facility] [id number] [place] [id number] Dec, [facility] [place] [facility] [id number], [place] [address]- 3471 Dec, [facility] [address] [facility] [id number] [place] [id number] Dec, [facility] [place] [facility] [id number], [place] [address]- 2086 Dec, [facility] [address] [id number], [place] [address] Dec, [facility] [place] [facility] [address], [place] [address]- 1954 Dec, [facility] [place] [facility] [address], [place] [address]- 1856 Dec, [facility] [address] [id number], [place] 330820078 Dec, [facility] [address] [id number], [place] [address]80980849 Dec, [facility] [place] [facility] [address], [place] [address]- 7304 Dec, [facility] [place] [facility] [address] [facility] [id number], [place] [address]- 8402 Nov, [facility] [place] [facility] [address] [facility] [id number], [place] [address]- 6297 Oct, [facility] [place] [facility] [id number]- 6854 Oct, [facility] [address] [facility] [id number], [place] 724827505 Sep, [facility] [address] [id number], [place] [address]- 9336 Sep, [facility] [address] [id number], [place] [id number] Sep, [facility] [place] [facility] [address] [facility] [id number], [place] [address]- 1545 Sep, [facility] [address] [facility] [id number], [place] [id number] Aug, [facility] [place] [facility] [address] [facility] [id number], [place] [address]- 0665 Aug, [facility] [address] [facility] [id number], [place] 105612281 Aug, [facility] [place] [facility] [address], [place] [address]- 0024 Aug, [facility] [place] [facility] [address] [address]- 8080 Jul, [facility] [place] [facility] [address] [facility] [id number], [place] [address]- 2072 Jul, [facility] [address] [facility] [id number], [place] 11387[address] Jul, [facility] [place] [facility] [id number], [place] [address]- 5748 Jul, [facility] [address] [facility] [id number], [place] [id number] Jun, [facility] [address] [facility] [id number], [place] [id number] Jun, [facility] [place] [facility] [address] [facility] [id number], [place] 314433- 5449 Jun, [facility] [place] [facility] [address] [facility] [id number], [place] [address]- 1509 Jun, [facility] [address] [facility] [id number], [place] [address]88624538 Jun, [facility] [place] [facility] [address] [id number] [place] [address]- 4866 Jun, [facility] [address] [id number] [place] [id number] May, [facility] [place] [facility] [address] [id number] [place] [address]- 6596 May, [facility] [place] [facility] [address] [facility] [id number] [place] [address]- 0241 Apr, [facility] [place] [facility] [address] [id number] [place] [address] Apr, [facility] [address] [facility] [id number] [place] [id number] Apr, [facility] [place] [facility] [address] [facility] [id number] [place] [address] Apr, [facility] [place] [facility] [address] [facility] [id number] [place] [address] Apr, [facility] [address] [facility] [id number][place] [id number] March, [facility] [place] [facility] [address] [facility] [id number] [place] [address] March, [facility] [place] [facility] [address] [facility] [id number], [place] [address] March, [facility] [address] [facility] [id number][place] [id number] March, [facility] [place] [facility] [address] [facility] [id number], [place] [address] March, [facility] [address] [facility] [id number] [place] [id number] March, [facility] [place] [facility] [address] [facility] [id number] [place] [address] March, [facility] [address] [facility] [id number] [place] [id number] Feb, [facility] [place] [facility] [address] [facility] [id number] [place] [address] Feb, [facility] [place] [facility] [address] [facility] [id number] [place] [address] Jan, [facility] [address] [id number] [place] [id number] Jan, [facility] [place] [facility] [address] [facility] [id number] [place] [address] Jan, [facility] [place] [facility] [address] [facility] [id number], [place] [address] Jan, [facility] [address] [id number] [place] [id number] Jan, [facility] [address] [id number] [place] [id number] Dec, [facility] [place] [facility] [address] [facility] [id number], [place] [address] Dec, [facility] [facility] [address] [id number], [place] [address] Dec, [facility] [address] [id number] [place] [id number] Dec, [facility] [address] [facility] [id number], [place] [address] 2546 Dec, [facility] [address] [facility] [id number], [place] [id number] Dec, [facility] [id number], [place] [address] Dec, [facility] [address] [facility] [id number], [place] [address] Dec, [facility] [address] [id number] [place] [id number] Dec, [facility] [address] [facility] [id number] [place] [id number] Nov, [facility] [address] [facility] [id number], [place] [address] Nov, [facility] [address] [id number], [place] [address] Nov, [facility] [address] [id number] [place] [id number] Nov, [facility] [address] [id number] [place] [id number] Oct, [facility] [address] [id number], [place] [address] Oct, [facility] [address] [id number] [place] [id number] Oct, [facility] [address] [id number] [place] [address]- [address]168 Oct, [facility] [address] [facility] [id number], [place] [address] 7148 Oct, [facility] [address] [facility] [id number], [place] [address] Oct, [facility] [address] [facility] [id number][place] [id number] Oct, [facility] [address] [facility] [id number], [place] [address]- 9[address] Oct, [facility] [address] [facility] [id number], [place] [address] 68[address] Sep, [facility] [address] [facility] [id number], [place] [address]- 1686 Sep, [facility] [address] [id number][place] [address] Sep, [facility] [address] [facility] [id number], [place] [address]- [address] Sep, [facility] [address] [facility] [id number], [place] [address]- 3536 Sep, [facility] [address] [id number], [place] [id number] Sep, [facility] [address] [id number], [place] [id number] Aug, [facility] [address] [facility] [id number], [place] [address]- 0378 Aug, [facility] [address] [facility] [id number], [place] [address]- 9336 Aug, [facility] [address] [id number], [place] [id number] Aug, [facility] [address] [id number][place] 1216[address]388 Aug, [facility] [address] [facility] [id number] [place] [address]- 8062 Aug, [facility] [address] [facility] [id number] [place] [address]- 2691 Aug, [facility] [address] [facility] [id number], [place] [address]- 9038 Aug, [facility] [address] [facility] [id number], [place] [address]389[address] Jul, [facility] [address] [facility] [id number], [place] [address]- 3360 Jul, [facility] [address] [facility] [id number], [place] [address] 7913 Jul, [facility] [address] [facility] [id number], [place] [address]150 Jul, [facility] [address] [facility] [id number], [place] [id number] Jul, [facility] [address] [facility] [id number], [place] [address]- [address] May, [facility] [address] [facility] [id number], [place] [address]- 3619 Apr, [facility] [address] [facility] [id number], [place] [address]20805672 Apr, [facility] [address] [facility] [id number], [place] [id number] Apr, [facility] [address] [facility] [id number], [place] [address]- [address]46 March, [facility] [address] [id number] [place] [address] March, [facility] [address] [id number] [place] [address] March, [facility] [address] [id number] [place] [id number] March, [facility] [address] [id number] [place] [id number] March, [facility] [address] [id number] [place] [id number] March, [facility] [address] [facility] [id number], [place] [address]- [address]46 March, [facility] [address] [facility] [id number], [place] [address]- 2546 March, [facility] [address] [id number], [place] [address] Feb, [facility] [address] [id number] [place] [id number] Feb, [facility] [address] [id number] [place] [id number] Feb, [facility] [address] [id number] [place] [id number] Feb, [facility] [id number], [place] [address] Feb, [facility] [address] [id number] [place] [id number] Feb, [facility] [address] [id number] [place] [id number] Jan, [facility] [address] [id number] [place] [id number] Jan, [facility] [address] [id number] [place] 301234637 Dec, [facility] [address] [id number] [place] [id number] Dec, [facility] [address] [id number], [place] [address] 6129 Dec, [facility] [address] [id number] [place] [id number] Dec, [facility] [address] [id number] [place] 523332676 Dec, [facility] [address] [id number] [place] [id number] Dec, [facility] [address] [id number] [place] 923399078 Dec, [facility] [address] [id number], [place] [address]- 6286 Nov, [facility] [address] [id number] [place] [id number] Nov, [facility] [address] [id number] [place] 70466[address] Nov, [facility] [address] [id number] [place] 947341262 Nov, [facility] [address] [id number] [place] [id number] Nov, [facility] [address] [facility] [id number], [place] [address]- 0684 Oct, [facility] [address] [id number] [place] [id number] Oct, [facility] [address] [id number] [place] 632163741 Oct, [facility] [address] [id number], [place] 314233796 Oct, [facility] [address] [facility] [id number], [place] [address]- [address]43 Oct, [facility] [address] [facility] [id number], [place] [address]- 4292 Oct, [facility] [address] [facility] [id number], [place] 99292390- 2713 Oct, [facility] [address] [id number], [place] 513021189 Sep, [facility] [address] [facility] [id number], [place] [address]- 4638 Sep, [facility] [address] [facility] [id number], [place] [address]- 9578 Sep, [facility] [address] [id number] [place] 579264230 Sep, [facility] [address] [id number], [place] 312365094 Sep, [facility] [address] [id number], [place] 888695718 Sep, [facility] [address] [facility] [id number], [place] 100535- 2005 Sep, [facility] [address] [facility] [id number], [place] [address]- 3448 Sep, [facility] [address] [facility] [id number], [place] 503415- 2658 Sep, [facility] [address] [facility] [id number], [place] 107699274 Aug, [facility] [address] [facility] [id number], [place] [address]- 3854 Aug, [facility] [address] [facility] [id number], [place] 089210424 Aug, [facility] [address] [facility] [id number], [place] 275206- 2595 Aug, [facility] [address] [facility] [id number], [place] [address]- 5180 Aug, [facility] [address] [id number], [place] [id number] Aug, [facility] [address] [facility] [id number], [place] 005632296 Aug, [facility] [address] [facility] [id number], [place] [address]- 4518 Aug, [facility] [address] [id number] [place] [id number] Aug, [facility] [address] [id number] [place] [id number] Jul, [facility] [address] [id number] [place] 103099349 Jun, [facility] [address] [id number] [place] 777853243 May, [facility] [address] [id number] [place] 140220873 May, [facility] [address] [id number] [place] 017116745 May, [facility] [address] [id number] [place] 618899831 May, [facility] [address] [id number] [place] 179751889 May, [facility] [address] [id number] [place] 524275882 May, [facility] [address] [id number] [place] 352793284 May, [facility] [address] [id number] [place] 259042105 Apr, [facility] [address] [id number] [place] 690389465 Apr, [facility] [address] [id number] [place] 305[address]45[address] Apr, [facility] [address] [id number] [place] 456756596 Apr, [facility] [address] [id number] [place] 949170548 Apr, [facility] [address] [id number] [place] 413612393 Apr, [facility] [address] [id number] [place] [address]89757069 March, [facility] [address] [id number] [place] 523943384 March, [facility] [address] [id number] [place] 25[address]10442 Feb, [facility] [address] [id number] [place] [id number] 16 Feb, 2012 [facility] [address] [id number] [place] 444136311 Feb, [facility] [address] [id number] [place] 357619691 Jan, [facility] [address] [id number] [place] 203179768 Jan, [facility] [address] [id number] [place] 989378882 15 Jan, 2012 [facility] [place] [address] [id number] [place] 265979729 Jan, [facility] [address] [id number] [place] [id number] Dec, [facility] [id number], [place] [address]- 4923 Dec, [facility] [address] [id number] [place] 123524660 Dec, [facility] [address] [id number] [place] [id number] Nov, [facility] [address] [id number] [place] 153892869 Nov, [facility] [address] [id number] [place] [id number] Nov, [facility] [address] [id number], [place] [address]- 4696 Oct, [facility] [id number] [place] [address] 96618495- 4223 Oct, [facility] [id number] [place] [address] 902072- 1713 Oct, [facility] [id number] [place] [address] 749370- 8365 Aug, [facility] [address] [id number], [place]706[place]- 1388 Aug, [facility] [address] [id number] [place] [address]- 7111 Aug, [facility] [address] [id number] [place] [address]- 0192 March, [facility] [address] [id number] [place] [address]- 7532 Oct, [facility] [address] [id number] [place] [address]- 5910 Oct, [facility] [address] [id number] [place] [address]- 2425 Sep, [facility] [address] [id number] [place] [address]- 0141 Sep, [facility] [address] [id number] [place] [address]- 0564 Sep, [facility] [address] [id number] [place] [address]- 0972 Aug, [facility] [address] [id number] [place] [address]- 6301 Aug, [facility] [address] [id number] [place] [address]- 3233 Jun, [facility] [address] [id number] [place] [address]- 6971 May, [facility] [address] [id number] [place] [address]- 8315 Jan, [facility] [address] [id number] [place] [address]- 5401 Nov, [facility] [address] [id number] [place] [address]- 6604 Oct, [facility] [address] [id number] [place] [address]- 0740 Sep, [facility] [address] [id number] [place] [address]- 9248 Sep, [facility] [address] [facility] [id number], [place] [address]- [address] Sep, [facility] [address] [id number], [place] [address]- 2125 Sep, [facility] [address] [id number], [place] [address]- 7765 Sep, [facility] [address] [id number], [place] [address]- 7997 Aug, [facility] [address] [id number], [place] [address]- 4316 Aug, [facility] [address] [id number], [place] [address]- 5747 Jul, [facility] [address] [id number], [place] [address]- 6778 Jun, IMMUNIZATIONS No Known Immunizations SOCIAL HISTORY Never Assessed REASON FOR VISIT [facility] PLAN OF CARE VITAL SIGNS MEDICATIONS Unknown [...] 08/2016 Hospitalization History chest pain ED visit [facility], pt scheduled for heart cath on May Hospitalization History [facility] 2012 Hospitalization History Chest pain-[facility] 12[facility]22/16
--- OUTSIDE RECORDS SUMMARY | 2019-03-21 19:06 | XMS REPORT ---
Author Author Migration, Doctor Organization [facility] Address Unknown Phone Unavailable Care Team Providers Care Crime Scene Specialist Name Role Phone Migration, Doctor Unavailable Unavailable PROBLEMS Type Condition ICD9-CM Code ZBI05-IJ Code Onset Dates Condition Status SNOMED Code Problem Serum creatinine raised R79.89 Active 198032837 Problem Episodic mood disorder F39 Active 20120877 Problem Generalized anxiety disorder F41.1 Active 47270128 Problem Lumbago with sciatica, left side M54.42 Active 776645563 Problem Dyslipidemia E78.5 Active 313749193 Problem Other chronic pain G89.29 Active 67472943 Problem Polyneuropathy associated with underlying disease G63 Active 348538939 Problem Syncope, unspecified syncope type R55 Active 955711892 Problem Recurrent major depressive disorder, in partial remission F33.41 Active 94986344 Problem Other seasonal allergic rhinitis J30.2 Active 619660310 Problem Hammertoe of left foot M20.42 Active 687802468 Problem Lumbago with sciatica, right side M54.41 Active 743662072 Problem 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 Active 726320939 Problem Type 2 diabetes mellitus with diabetic polyneuropathy E11.42 Active 06286142 Problem Stage 2 chronic kidney disease N18.2 Active 664816390 Problem Vitamin D deficiency E55.9 Active 64126576 ALLERGIES No Information ENCOUNTERS Encounter Location Date Diagnosis [place] [address], [place] [address] Jan, correction current use of insulin Z79.4 [place] [address], [place] [address] Jan, [place] [address] [place] [address] 98393- 0128 Jan, Type 2 diabetes mellitus with diabetic polyneuropathy E11.42 [place] [address], [place] [address] 0[address] Jan, [facility] [address], [place] [address] 8393 Jan, Type 2 diabetes mellitus with diabetic polyneuropathy E11.42 [facility] [address] [place] [address] 96869- 8952 Dec, 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 [facility] [address] [place] [id number] [place] [address] 50418- 3171 Dec, correction current use of insulin Z79.4 [place] [address] [place] [address] 86312- 8337 Dec, [place] [address] [place] [id number] [place] [address] 37971- 7693 Nov, Hammertoe of left foot M20.42 ; Peroneal tendonitis of left lower extremity M76.72 ; Callus of foot L84 and Type 2 diabetes mellitus with diabetic polyneuropathy E11.42 [place] [address] [place] [address] 27150- 8941 Nov, [place] [address] [place] [id number] [place] [address] 72525- 6096 Nov, Encounter for immunization Z23 [facility] [address] [place] [id number] [place] [address] 08153- 4011 Oct, [facility] [address] [place] [address] 92214- 1844 Oct, [facility] [address] [place] [address] 08344- 3896 Oct, Acute pancreatitis, unspecified complication status, unspecified pancreatitis type K85.90 [facility] [address] [place] [address] 82552- 9155 Sep, 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 [facility] [address] [place] [address] 75388- 9643 Sep, [place] [address] [place] [address] 88079- 3114 Sep, Type 2 diabetes mellitus with diabetic polyneuropathy E11.42 ; Stage 2 chronic kidney disease N18.2 and Recurrent major depressive disorder, in partial remission F33.41 [place] [address] [place] [id number] [place] [address] 42384- 5702 Sep, correction current use of insulin Z79.4 [place] [address] [place] [id number] [place] [address] 96662- 0770 Sep, Acute maxillary sinusitis, recurrence not specified J01.00 and Bronchiolitis J21.9 [place] [address] [address]00- 9865 17 Jul, 2018 [place] [address] [place] [id number] [place] [address] 17218- 8003 Jun, Type 2 diabetes mellitus with diabetic polyneuropathy E11.42 ; Open wound T14.8XXA ; 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 ; Stage 2 chronic kidney disease N18.2 and Episodic mood disorder F39 [place] [address] [place] [id number] [place] [address] 61135- 1444 May, [place] [address] [place] [id number] [place] [address] 99390- 3076 March, [place] [address] [place] [id number] [place] [address] 80157- 3414 March, Type 2 diabetes mellitus with diabetic [...] H60.502 and Non-adherence to medical treatment Z91.[address] [id number] [id number] Feb, Dental examination Z01.20 [facility] [address], [place] [address] 2972 Feb, Labile hypertension R09.89 ; Syncope, unspecified syncope type R55 ; Chest pain, unspecified type R07.9 and Dyslipidemia E78.5 [place] [address] [place] [id number] [place] [address] 20562- 0223 Feb, [facility] [address] [place] [id number] [place] [address] 87690- 1665 Jan, [facility] [place] [address] [place] [address] [id number] [place] [address] [id number] Jan, Dental examination Z01.20 [facility] [address] [place] [id number] [place] [address] 86287- 0635 Jan, Acute non-recurrent maxillary sinusitis J01.00 and Dyslipidemia E78.[address] [id number] [place] [address] [id number] Jan, Dental examination Z01.20 and Dental caries K02.[address] [id number][place] [id number] Jan, [facility] [address] [place] [address] [id number] [place] [address] [id number] Dec, Dental examination Z01.20 [facility] [address] [place] [address] 48500 -9297 Dec, Seasonal allergic rhinitis, unspecified trigger J30.2 [facility] [address] [place] [address] 83179- 2747 Nov, [place] [address] [place] [id number] [place] [address] 02645- 2488 Nov, Type 2 diabetes mellitus with diabetic polyneuropathy E11.42 ; Dyslipidemia E78.5 ; Lumbago with sciatica, right side M54.41 ; Lumbago with sciatica, left side M54.42 ; 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 ; Polyneuropathy associated with underlying disease G63 ; Stage 2 chronic kidney disease N18.2 and Syncope, unspecified syncope type R55 [place] [address] [address]64- 3223 Oct, Type 2 diabetes mellitus with diabetic polyneuropathy E11.42 ; Acute otitis externa of left ear, unspecified type H60.502 ; Overweight (BMI 25.0-29.9) E66.3 ; Dyslipidemia E78.5 and Polyneuropathy associated with underlying disease G63 [place] [address] 26473- 8554 Sep, [place] [address] 25065- 8960 Aug, Abnormal mammogram R92.8 [place] [address] 12408- 9264 Aug, Type 2 diabetes mellitus with diabetic polyneuropathy E11.42 [place] [address] 24310- 8657 Aug, [place] [address] 32395- 4059 Aug, Type 2 diabetes mellitus with diabetic polyneuropathy E11.42 ; Syncope, unspecified syncope type R55 ; Other chronic pain G89.29 and Encounter for immunization Z23 [place] [address] 23178- 6069 Aug, Type 2 diabetes mellitus with diabetic polyneuropathy E11.42 [place] [address] [place] [id number] [place] [address] 44438- 2957 Jul, Type 2 diabetes mellitus with diabetic polyneuropathy E11.42 and Serum creatinine raised R79.89 [place] [address] 80272- 9041 Jul, Type 2 diabetes mellitus with diabetic polyneuropathy E11.42 and Serum creatinine raised R79.89 [place] [address] 31089- 5479 May, [place] [address], [place] [address]- 4202 May, [place] [address] [place] [id number] [place] [address] 83189- 7342 May, Head injury, initial encounter S09.90XA ; Facial pain R51 ; Neck pain M54.2 and Fall, initial encounter W19.XXXA [place] [address] [place] [id number] [place] [address] 92706- 5535 May, Type 2 diabetes mellitus with diabetic polyneuropathy E11.42 [place] [address] [place] [id number] [place] [address] 69272- 2509 May, [place] [address] [place] [id number] [place] [address] 29871- 1951 May, Type 2 diabetes mellitus with diabetic polyneuropathy E11.42 [place] [address] [place] [id number] [place] [address] 80743- 3740 May, Dyslipidemia E78.5 ; 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 ; Type 2 diabetes mellitus with diabetic polyneuropathy E11.42 ; Generalized anxiety disorder F41.1 and Other seasonal allergic rhinitis J30.2 [place] [address] [place] [address] 57654- 7973 Apr, Type 2 diabetes mellitus with diabetic polyneuropathy E11.42 [place] [address] [place] [address] 14894- 5851 March, [place] [address] [place] [address] 54153- 7086 March, Abnormal mammogram R92.8 [place] [address] [place] [id number] [place] [address] 30374- 8921 Feb, Abnormal mammogram R92.8 [place] [address] [place] [address] 40004- 4268 Feb, Diabetes type 2, uncontrolled E11.65 [place] [address], [place] [address]- 1041 06 Feb, 2017 Screening for breast cancer Z12.39 [place] [address], [place] [address]- 7906 27 Jan, 2017 Screening for breast cancer Z12.39 [place] [address] [place] [address] 87116- 2730 Jan, Type 2 diabetes mellitus with diabetic polyneuropathy E11.42 ; 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 ; Other viral agents as the cause of diseases classified elsewhere B97.89 and Acute upper respiratory infection, unspecified J06.9 [place] [address] [place] [address] 80849- 8266 Jan, [place] [address] [place] [id number] [place] [address] 25960- 4679 17 Dec, 2016 Diabetes type 2, uncontrolled E11.65 ; Dyslipidemia E78.5 ; Generalized anxiety disorder F41.1 ; Depression, unspecified depression type F32.9 ; correction current use of insulin Z79.4 and Polyneuropathy associated with underlying disease G63 [place] [address], [place] [address]- 9786 16 Dec, 2016 [place] [address], [place] [address]- 2235 14 Dec, 2016 [place] [address], [place] [address]- 6968 Dec, [place] [address], [place] [address]- 8273 Dec, [place] [address] [place] [id number] [place] [address] 67865- 9003 Oct, Well woman exam Z01.419 ; Screening for breast cancer Z12.39 ; correction current use of insulin Z79.4 ; Type 2 diabetes mellitus without complications E11.9 and Encounter for immunization Z23 [place] [address] [place] [id number] [place] [address] 98056- 1533 Sep, [place] [address] [place] [id number] [place] [address] 11656- 2681 Sep, Diabetes type 2, uncontrolled E11.65 ; Dyslipidemia E78.5 and Depression, unspecified depression type F32.9 [place] [address] [place] [id number] [place] [address] 72445- 4755 Aug, Diabetes type 2, uncontrolled E11.65 ; Encounter for immunization Z23 ; Nasal congestion R09.81 and Ear pressure, bilateral H93.8X3 [place] [address] 81704- 4357 Jul, Eustachian tube dysfunction, left H69.82 [place] [address] [place] [id number] [place] [address] 14595- 3638 Jun, [place] [address] 21089- 0541 Jun, Hospital discharge follow-up Z09 ; Syncope, unspecified syncope type R55 and Acute suppurative otitis media of left ear without spontaneous rupture of tympanic membrane, recurrence not specified H66.002 [place] [address] [place] [id number] [place] [address] 08444- 9679 May, [place] [address] [place] [id number] [place] [address] 06648- 5832 May, [place] [address] [place] [id number] [place] [address] 04216- 1404 May, [place] [address] [place] [id number] [place] [address] 89455- 8907 May, Diabetes type 2, uncontrolled E11.65 ; [...] disturbance G47.9 and Generalized anxiety disorder F41.1 [facility] [address], [place] [address] 2546 March, [facility] [place] [id number] [place] [address] [id number] March, Syncope, unspecified syncope type R55 and Depression, unspecified depression type F32.9 [facility] [address] [place] [id number] [place] [address] [id number] March, Orthostatic hypotension I95.1 [facility] [address] [place] [id number] [place] [address] [id number] March, [facility] [address], [place] [address]- 2546 March, [facility] [id number] [place] [address] [phone] Feb, [facility] [place] [address] [id number] [id number] Feb, Dental examination Z01.20 [facility] [id number] [place] [address] [id number] Jan, [facility] [address] [place] [address] [id number] [place] [address] [id number] Jan, [facility] [id number] [place] [address] [id number] Dec, Diabetes type 2, uncontrolled E11.65 [facility] [id number] [place] [address] [phone] Nov, [facility] [address] [id number], [place] [id number] Nov, Encounter for dental examination Z01.20 [facility] [address] [id number][place] [id number] Nov, Dental examination Z01.20 [facility] [place] [id number][place] [id number] Sep, Diabetes type 2, uncontrolled E11.[address] [facility] [place] [address] [id number] [place] [id number] Sep, Encounter for dental examination Z01.20 and Dental caries, unspecified K02.9 [facility] [id number][place] [id number] Sep, Bipolar 2 disorder F31.81 [facility] [id number], [place] [id number] Aug, [facility] [id number][place] [id number] Aug, Follow up V67.9 [facility] [address] [address]- 8609 Jul, Bipolar disorder, unspecified 296.80 [facility] [id number], [place] [address] Jul, Thyroid enlarged 240.9 and Bipolar disorder, unspecified 296.80 [facility] [address] [id number] Jun, Diabetes mellitus type 2, uncontrolled 250.02 ; Bipolar disorder, unspecified 296.80 and Rash 782.1 [facility] [id number], [place] [phone] Jun, [facility] [id number][place] [address] May, Urinary tract infection 599.0 [facility] [id number], [place] [address] May, Urinary tract infection 599.0 [facility] [id number][place] [id number] May, [facility] [id number], [place] [id number] May, Diabetes mellitus type 2, uncontrolled 250.02 and Pica in adults 307.52 [facility] [id number], [place] [id number] Apr, Follow up V67.9 and Diabetes mellitus type 2, uncontrolled 250.02 [facility] [address]005[address]100[place] [id number] Apr, [facility] [address], [place] [address]- 2546 Apr, [facility] [id number], [place] [address] Apr, Hyperlipidemia 272.4 [facility] [address] [place] [id number][place] [address] March, Diabetes type 2, uncontrolled 250.02 [facility] [id number] [place] [address] [id number] March, Diabetes mellitus type 2, uncontrolled 250.02 [facility] [id number], [place] [id number] March, Diabetes type 2, uncontrolled 250.02 [facility] [id number] [place] [address] [id number] March, [facility] [id number], [place] [address] March, [facility] [id number], [place] [id number] Feb, [facility] [place] [facility] [address], [place] [address]- 2546 Feb, [facility] [place] [facility] [address], [place] [address]- 2546 Feb, [facility] [address] [place] [id number], [place] [address]2451 Jan, [facility] [place] [facility] [address], [place] [address]- 2546 Jan, [facility] [place] [facility] [address] [place] [id number], [place] [address]- 2546 Jan, [facility] [address] [place] [id number], [place] [id number] Jan, [facility] [place] [facility] [address], [place] [address]- 2546 Jan, [facility] [place] [facility] [address], [place] [address]- 1056 Jan, [facility] [address] [facility] [id number][place] [id number] Jan, [facility] [place] [facility] [address] [facility] [id number], [place] [address]- 6074 Jan, [facility] [place] [facility] [address] [place] [id number], [place] [address]- 8703 Dec, [facility] [address] [facility] [id number] [place] [id number] Dec, [facility] [place] [facility] [address] [place] [id number], [place] [address]- 8189 Dec, [facility] [address] [facility] [id number] [place] [id number] Dec, [facility] [place] [facility] [address] [place] [id number], [place] [address]- 0006 Dec, [facility] [address] [place] [id number], [place] [address]27 Dec, [facility] [place] [facility] [address], [place] [address]- 8832 Dec, [facility] [place] [facility] [address], [place] [address]- 7296 Dec, [facility] [address] [place] [id number], [place] 601[address]6440 Dec, [facility] [address] [place] [id number], [place] [id number] Dec, [facility] [place] [facility] [address], [place] [address]- 4668 Dec, [facility] [place] [facility] [address] [facility] [id number], [place] [address]- 3688 Nov, [facility] [place] [facility] [address] [facility] [id number], [place] [address]- 6547 Oct, [facility] [place] [facility] [address] [id number]- 7367 Oct, [facility] [address] [facility] [id number], [place] [id number] Sep, [facility] [address] [id number], [place] [address]- 1256 Sep, [facility] [address] [id number], [place] [id number] Sep, [facility] [place] [facility] [address] [facility] [id number], [place] [address]- 7222 Sep, [facility] [address] [facility] [id number], [place] [id number] Aug, [facility] [place] [facility] [address] [facility] [id number], [place] [address]- 2210 Aug, [facility] [address] [facility] [id number], [place] [id number] Aug, [facility] [place] [facility] [address]005[address]100[place], [place] [address]- 3514 Aug, [facility] [place] [facility] [address]40[place]- 3044 Jul, [facility] [place] [facility] [address] [facility] [id number], [place] [address]- 3881 Jul, [facility] [address] [facility] [id number], [place] [id number] Jul, [facility] [place] [facility] [id number], [place] [address]- 6562 Jul, [facility] [address] [facility] [id number], [place] [id number] Jun, [facility] [address] [facility] [id number], [place] [id number] Jun, [facility] [place] [facility] [address] [facility] [id number], [place] 176311- 4989 Jun, [facility] [place] [facility] [address] [facility] [id number], [place] [address]- 8677 Jun, [facility] [address] [facility] [id number], [place] [id number] Jun, [facility] [place] [facility] [address] [id number] [place] [address]- 7686 Jun, [facility] [address] [id number] [place] [id number] May, [facility] [place] [facility] [address] [id number] [place] [address] May, [facility] [place] [facility] [address] [facility] [id number] [place] [address] Apr, [facility] [place] [facility] [address] [id number] [place] [address] Apr, [facility] [address] [facility] [id number] [place] [id number] Apr, [facility] [place] [facility] [address] [facility] [id number] [place] [address] Apr, [facility] [place] [facility] [address] [facility] [id number] [place] [address] Apr, [facility] [address] [facility] [id number][place] [id number] March, [facility] [place] [facility] [address] [facility] [id number] [place] [address] March, [facility] [place] [facility] [address] [facility] [id number], [place] [address] March, [facility] [address] [facility] [id number][place] [id number] March, [facility] [place] [facility] [address] [facility] [id number], [place] [address] March, [facility] [address] [facility] [id number] [place] [id number] March, [facility] [place] [facility] [address] [facility] [id number] [place] [address] March, [facility] [address] [facility] [id number] [place] [id number] Feb, [facility] [place] [facility] [address] [facility] [id number] [place] [address] Feb, [facility] [place] [facility] [address] [facility] [id number] [place] [address] Jan, [facility] [address] [id number] [place] [id number] Jan, [facility] [place] [facility] [address] [facility] [id number] [place] [address] Jan, [facility] [place] [facility] [address] [facility] [id number], [place] [address] Jan, [facility] [address] [id number] [place] [id number] Jan, [facility] [address] [id number] [place] [id number] Dec, [facility] [place] [facility] [address] [facility] [id number], [place] [address] Dec, [facility] [place] [facility] [address] [id number], [place] [address] Dec, [facility] [address] [id number] [place] [id number] Dec, [facility] [place] [facility] [address] [facility] [id number], [place] [address] Dec, [facility] [address] [facility] [id number] [id number] Dec, [facility] [place] [facility] [id number], [place] [address] Dec, [facility] [place] [facility] [address] [facility] [id number], [place] [address] Dec, [facility] [place] [address] [id number] [place] [id number] Dec, [facility] [place] [address] [facility] [id number] [place] [id number] Nov, [facility] [place] [facility] [address] [facility] [id number], [place] [address] Nov, [facility] [place] [facility] [address] [id number], [place] [address] Nov, [facility] [place] [address] [id number] [place] [id number] Nov, [facility] [place] [address] [id number] [place] [id number] Oct, [facility] [place] [facility] [address] [id number], [place] [address] Oct, [facility] [place] [address] [id number] [place] [id number] Oct, [facility] [place] [facility] [address] [id number] [place] [address] Oct, [facility] [place] [facility] [address] [facility] [id number], [place] [address] Oct, [facility] [place] [facility] [address] [facility] [id number], [place] [address] Oct, [facility] [place] [address] [facility] [id number][place] [id number] Oct, [facility] [place] [facility] [address] [facility] [id number], [place] [address] Oct, [facility] [place] [facility] [address] [facility] [id number], [place] [address] Sep, [facility] [place] [facility] [address] [facility] [id number], [place] [address] Sep, [facility] [place] [address] [id number][place] [id number] Sep, [facility] [place] [facility] [address] [facility] [id number], [place] [address] Sep, [facility] [place] [facility] [address] [facility] [id number], [place] [address] Sep, [facility] [place] [address] [id number], [place] [id number] Sep, [facility] [place] [address] [id number][place] [address]49635[address] Aug, [facility] [place] [facility] [address] [facility] [id number], [place] [address]- [address] Aug, [facility] [place] [facility] [address] [facility] [id number], [place] [address] Aug, [facility] [place] [address] [id number][place] [id number] Aug, [facility] [place] [address] [id number][place] [id number] Aug, [facility] [place] [facility] [address] [facility] [id number] [place] [address]- [address]163 Aug, [facility] [place] [facility] [address] [facility] [id number] [place] [address]- 12[address] Aug, [facility] [place] [facility] [address] [facility] [id number], [place] [address]- [address] Aug, [facility] [place] [address] [facility] [id number][place] [id number] Jul, [facility] [place] [facility] [address] [facility] [id number], [place] [address] Jul, [facility] [place] [facility] [address] [facility] [id number], [place] [address] Jul, [facility] [place] [address] [facility] [id number], [place] [id number] Jul, [facility] [place] [address] [facility] [id number], [place] [id number] Jul, [facility] [place] [facility] [address] [facility] [id number], [place] [address] May, [facility] [place] [facility] [address] [facility] [id number], [place] [address] Apr, [facility] [place] [address] [facility] [id number][place] [id number] Apr, [facility] [place] [address] [facility] [id number], [place] [id number] Apr, [facility] [place] [facility] [address] [facility] [id number], [place] [address] March, [facility] [place] [address] [id number] [place] [id number] March, [facility] [place] [address] [id number] [place] [id number] March, [facility] [place] [address] [id number] [place] [id number] March, [facility] [place] [address] [id number] [place] [id number] March, [facility] [place] [address] [id number] [place] [id number] March, [facility] [address] [facility] [id number], [place] [address] March, [facility] [address] [facility] [id number], [place] [address] March, [facility] [address] [id number], [place] [address] Feb, [facility] [place] [address] [id number] [place] [id number] Feb, [facility] [place] [address] [id number] [place] [id number] Feb, [facility] [place] [address] [id number] [place] [id number] Feb, [facility] [address]00565100[place], [place] [address] Feb, [facility] [place] [address] [id number] [place] [id number] Feb, [facility] [place] [address] [id number] [place] 37639[address] Jan, [facility] [place] [address] [id number] [place] [id number] Jan, [facility] [place] [address] [id number] [place] [id number] Dec, [facility] [place] [address] [id number] [place] [id number] Dec, [facility] [address] [id number], [place] [address] Dec, [facility] [place] [address] [id number] [place] 690771462 Dec, [facility] [place] [address] [id number] [place] [id number] Dec, [facility] [place] [address] [id number] [place] [id number] Dec, [facility] [place] [address] [id number] [place] [id number] Dec, [facility] [address] [id number], [place] [address] Nov, [facility] [place] [address] [id number] [place] [id number] Nov, [facility] [place] [address] [id number] [place] [id number] Nov, [facility] [place] [address] [id number] [place] [id number] Nov, [facility] [place] [address] [id number] [place] [id number] Nov, [facility] [address] [facility] [id number], [place] [address]- [address] Oct, [facility] [place] [address] [id number] [place] [id number] Oct, [facility] [place] [address] [id number] [place] [id number] Oct, [facility] [place] [address] [id number], [place] 818382934 Oct, [facility] [address] [facility] [id number], [place] [address]- [address]34 Oct, [facility] [place] [facility] [address] [facility] [id number], [place] [address]- 2413 Oct, [facility] [place] [facility] [address] [facility] [id number], [place] 28318930- [address] Oct, [facility] [place] [address] [id number], [place] [id number] Sep, [facility] [place] [facility] [address] [facility] [id number], [place] [address]- 1142 Sep, [facility] [place] [facility] [address] [facility] [id number], [place] [address]- 6870 Sep, [facility] [place] [address] [id number] [place] [id number] Sep, [facility] [place] [address] [id number], [place] [id number] Sep, [facility] [place] [address] [id number], [place] 432122681 Sep, [facility] [place] [facility] [address] [facility] [id number], [place] 841802- 7832 Sep, [facility] [place] [facility] [address] [facility] [id number], [place] [address]- 1033 Sep, [facility] [place] [facility] [address] [facility] [id number], [place]157[place]- [address]25 Sep, [facility] [place] [address] [facility] [id number], [place] 050851471 Aug, [facility] [place] [facility] [address] [facility] [id number], [place] [address]- 8552 Aug, [facility] [place] [address] [facility] [id number], [place] 440325342 Aug, [facility] [place] [facility] [address] [facility] [id number], [place]88314- 8126 Aug, [facility] [place] [facility] [address] [facility] [id number], [place] [address]- 0782 Aug, [facility] [place] [address] [id number], [place] [id number] Aug, [facility] [place] [address] [facility] [id number], [place] 030940682 Aug, [facility] [place] [facility] [address] [facility] [id number], [place] [address]- 7186 Aug, [facility] [place] [address] [id number] [place] [id number] Aug, [facility] [place] [address] [id number] [place] [id number] Jul, [facility] [place] [address] [id number] [place] [id number] Jun, [facility] [place] [address] [id number] [place] [id number] May, [facility] [place] [address] [id number] [place] 373054787 May, [facility] [place] [address] [id number] [place] 036508298 May, [facility] [place] [address] [id number] [place] 048328678 May, [facility] [place] [address] [id number] [place] [id number] May, [facility] [place] [address] [id number] [place] 718503473 May, [facility] [place] [address] [id number] [place] [id number] May, [facility] [place] [address] [id number] [place] 632753318 Apr, [facility] [place] [address] [id number] [place] [id number] Apr, [facility] [place] [address] [id number] [place] 114235429 Apr, [facility] [place] [address] [id number] [place] [id number] Apr, [facility] [place] [address] [id number] [place] [id number] Apr, [facility] [place] [address] [id number] [place] [id number] Apr, [facility] [place] [address] [id number] [place] 27[place]3296 March, [facility] [place] [address] [id number] [place] 918623953 March, [facility] [place] [address] [id number] [place] [id number] Feb, [facility] [place] [address] [id number] [place] [id number] 16 Feb, 2012 [facility] [place] [address] [id number] [place] 155401240 Feb, [facility] [place] [address] [id number] [place] [id number] Jan, [facility] [place] [address] [id number] [place] 561186148 Jan, [facility] [place] [address] [id number] [place] [id number] 15 Jan, 2012 [facility] [place] [address] [id number] [place] [id number] Jan, [facility] [place] [address] [id number] [place] [id number] Dec, [facility] [address], [place] [address]- 9802 Dec, [facility] [place] [address] [id number] [place] [id number] Dec, [facility] [place] [address] [id number] [place] [id number] Nov, [facility] [place] [address] [id number] [place] [id number] Nov, [facility] [place] [address] [id number] [place] 023143771 Nov, [facility] [address] [id number], [place] [address]- 9612 Oct, [facility] [id number] [place] [address] [id number]- 1824 Oct, [facility] [id number] [place] [address]3873- 6199 Oct, [facility] [id number] [place] [address]205- 4341 Aug, [facility] [address] [id number]38[place]- 7059 Aug, [facility] [place] [facility] [address] [id number] [place] [address]- 9462 Aug, [facility] [address] [id number] [place] [address]- 6547 March, [facility] [place] [facility] [address] [id number] [place] [address]- 0347 Oct, [facility] [place] [facility] [address] [id number] [place] [address]- 0096 Oct, [facility] [place] [facility] [address] [id number] [place] [address]- 9320 Sep, [facility] [place] [facility] [address] [id number] [place] [address]- 5135 Sep, [facility] [place] [facility] [address] [id number] [place] [address]- 4511 Sep, [facility] [place] [facility] [address] [id number] [place] [address]- 3743 Aug, [facility] [place] [facility] [address] [id number] [place] [address]- 6755 Aug, [facility] [place] [facility] [address] [id number] [place] [address]- 5341 Jun, [facility] [place] [facility] [address] [id number] [place] [address]- 8611 May, [facility] [place] [facility] [address] [id number] [place] [address]- 9081 Jan, [facility] [place] [facility] [address] [id number] [place] [address]- 0930 Nov, [facility] [place] [facility] [address] [id number] [place] [address]- 5218 Oct, [facility] [place] [facility] [address] [id number] [place] [address]- 7830 Sep, [facility] [place] [facility] [address] [id number] [place] [address]- 7480 Sep, [facility] [address] [facility] [id number], [place] [address]- 7211 Sep, [facility] [address] [id number], [place] [address]- 8827 Sep, [facility] [address] [id number], [place] [address]- 0049 Sep, [facility] [address] [id number]98[place]- 6563 Aug, [facility] [address] [id number], [place] [address]- 4114 Aug, [facility] [address] [id number], [place] [address]- 0962 Jul, [facility] [address] [id number], [place] [address]- 7291 Jun, IMMUNIZATIONS No Known Immunizations SOCIAL HISTORY Never Assessed REASON FOR VISIT [facility] [place] VITAL SIGNS MEDICATIONS Unknown [...] History Ana QUEEN 2012 Hospitalization History Chest pain-[facility] 12/22/16
--- OUTSIDE RECORDS SUMMARY | 2019-03-21 19:07 | XMS REPORT ---
Author Author Migration, Doctor Organization [facility] Address Unknown Phone Unavailable Care Team Providers Care Outpatient Receptionist Name Role Phone Migration, Doctor Unavailable Unavailable PROBLEMS Type Condition ICD9-CM Code FBU25-MJ Code Onset Dates Condition Status SNOMED Code Problem Serum creatinine raised R79.89 Active 983563561 Problem Episodic mood disorder F39 Active 36855312 Problem Generalized anxiety disorder F41.1 Active 55465301 Problem Lumbago with sciatica, left side M54.42 Active 302622548 Problem Dyslipidemia E78.5 Active 400027317 Problem Other chronic pain G89.29 Active 90077600 Problem Polyneuropathy associated with underlying disease G63 Active 080878204 Problem Syncope, unspecified syncope type R55 Active 477456149 Problem Recurrent major depressive disorder, in partial remission F33.41 Active 14344292 Problem Other seasonal allergic rhinitis J30.2 Active 992517911 Problem Hammertoe of left foot M20.42 Active 092665833 Problem Lumbago with sciatica, right side M54.41 Active 628157265 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 836501714 Problem Type 2 diabetes mellitus with diabetic polyneuropathy E11.42 Active 32072835 Problem Stage 2 chronic kidney disease N18.2 Active 027449795 Problem Vitamin D deficiency E55.9 Active 51129696 ALLERGIES No Information ENCOUNTERS Encounter Location Date Diagnosis [place] [address] [address] Jan, FDC current use of insulin Z79.4 [place] [address], [place] [address] Jan, [place] [id number] [place] [address] 52244- 9923 Jan, Type 2 diabetes mellitus with diabetic polyneuropathy E11.42 [place] [address] [address] Jan, [facility] [address], [place] [address] Jan, Type 2 diabetes mellitus with diabetic polyneuropathy E11.42 [facility] [id number] [place] [address] 39367- 4369 Dec, 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 [facility] [id number] [place] [address] 04537- 4282 Dec, FDC current use of insulin Z79.4 [place] [address] [place] [address] 45331- 6249 Dec, [place] [address] [id number] [place] [address] 26507- 6095 Nov, Hammertoe of left foot M20.42 ; Peroneal tendonitis of left lower extremity M76.72 ; Callus of foot L84 and Type 2 diabetes mellitus with diabetic polyneuropathy E11.42 [place] [id number] [place] [address] 51049- 8419 Nov, [place] [address] [id number] [place] [address] 87724- 1298 Nov, Encounter for immunization Z23 [facility] [id number] [place] [address] 05654- 5340 Oct, [facility] [id number] [place] [address] 59321- 3426 Oct, [facility] [address] [place] [address] 57689- 8346 Oct, Acute pancreatitis, unspecified complication status, unspecified pancreatitis type K85.90 [facility] [address] [place] [address] 17905- 1571 Sep, 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 [facility] [id number] [place] [address] 52439- 2527 Sep, [place] [id number] [place] [address] 28352- 3891 Sep, Type 2 diabetes mellitus with diabetic polyneuropathy E11.42 ; Stage 2 chronic kidney disease N18.2 and Recurrent major depressive disorder, in partial remission F33.41 [place] [address] [address] [id number] [place] [address] 77041- 7113 Sep, FDC current use of insulin Z79.4 [place] [address] [id number] [place] [address] 80833- 6176 Sep, Acute maxillary sinusitis, recurrence not specified J01.00 and Bronchiolitis J21.9 [place] [address] 35402- 1021 17 Jul, 2018 [place] [address] [address] [id number] [place] [address] 60242- 3999 Jun, Type 2 diabetes mellitus with diabetic polyneuropathy E11.42 ; Open wound T14.8XXA ; 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 ; Stage 2 chronic kidney disease N18.2 and Episodic mood disorder F39 [place] [id number] [place] [address] 79193- 6342 May, [place] [id number] [place] [address] 84845- 1124 March, [place] [address] [address] [id number] [place] [address] 77594- 7521 March, Type 2 diabetes mellitus with diabetic [...] H60.502 and Non-adherence to medical treatment Z91.[address] [id number] [id number] Feb, Dental examination Z01.20 [facility] [address] [address] 1115 Feb, Labile hypertension R09.89 ; Syncope, unspecified syncope type R55 ; Chest pain, unspecified type R07.9 and Dyslipidemia E78.5 [place] [address] [address] [id number] [place] [address] 59478- 5773 Feb, [facility] [id number] [place] [address] 31455- 9739 Jan, [facility] [place] [address] [place] [address] [id number] [place] [address] [id number] Jan, Dental examination Z01.20 [facility] [id number] [place] [address] 67645- 8512 Jan, Acute non-recurrent maxillary sinusitis J01.00 and Dyslipidemia E78.[address] [id number] [place] [address] [id number] Jan, Dental examination Z01.20 and Dental caries K02.[address] [id number] [id number] Jan, [facility] [address] [place] [address] [id number] [place] [address] [id number] Dec, Dental examination Z01.20 [facility] [address] [place] [address] 97969 -4809 Dec, Seasonal allergic rhinitis, unspecified trigger J30.2 [facility] [address] [place] [address] 07858- 9173 Nov, [place] [address] [address] [id number] [place] [address] 94989- 7415 Nov, Type 2 diabetes mellitus with diabetic polyneuropathy E11.42 ; Dyslipidemia E78.5 ; Lumbago with sciatica, right side M54.41 ; Lumbago with sciatica, left side M54.42 ; 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 ; Polyneuropathy associated with underlying disease G63 ; Stage 2 chronic kidney disease N18.2 and Syncope, unspecified syncope type R55 [place] [address] 86416- 5411 Oct, Type 2 diabetes mellitus with diabetic polyneuropathy E11.42 ; Acute otitis externa of left ear, unspecified type H60.502 ; Overweight (BMI 25.0-29.9) E66.3 ; Dyslipidemia E78.5 and Polyneuropathy associated with underlying disease G63 [place] [address] 37770- 0025 Sep, [place] [address] 08481- 7719 Aug, Abnormal mammogram R92.8 [place] [address] 35041- 5151 Aug, Type 2 diabetes mellitus with diabetic polyneuropathy E11.42 [place] [address] 51889- 7950 Aug, [place] [address] 71037- 1495 Aug, Type 2 diabetes mellitus with diabetic polyneuropathy E11.42 ; Syncope, unspecified syncope type R55 ; Other chronic pain G89.29 and Encounter for immunization Z23 [place] [address] 63556- 9718 Aug, Type 2 diabetes mellitus with diabetic polyneuropathy E11.42 [place] [address] [place] [address] [id number] [place] [address] 75344- 7455 Jul, Type 2 diabetes mellitus with diabetic polyneuropathy E11.42 and Serum creatinine raised R79.89 [place] [address] 23012- 2887 Jul, Type 2 diabetes mellitus with diabetic polyneuropathy E11.42 and Serum creatinine raised R79.89 [place] [address] 87155- 5557 May, [place] [address] [address]- 5555 May, [place] [address] [place] [id number] [place] [address] 54781- 3092 May, Head injury, initial encounter S09.90XA ; Facial pain R51 ; Neck pain M54.2 and Fall, initial encounter W19.XXXA [place] [address] [place] [address] [id number] [place] [address] 81162- 6600 May, Type 2 diabetes mellitus with diabetic polyneuropathy E11.42 [place] [address] [place] [id number] [place] [address] 82497- 3059 May, [place] [address] [address] [id number] [place] [address] 81485- 4167 May, Type 2 diabetes mellitus with diabetic polyneuropathy E11.42 [place] [address] [place] [address] [id number] [place] [address] 47541- 5986 May, Dyslipidemia E78.5 ; 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 ; Type 2 diabetes mellitus with diabetic polyneuropathy E11.42 ; Generalized anxiety disorder F41.1 and Other seasonal allergic rhinitis J30.2 [place] [address] [place] [address] 81858- 0535 Apr, Type 2 diabetes mellitus with diabetic polyneuropathy E11.42 [place] [address] [place] [address] 40533- 4095 March, [place] [address] [place] [address] 09810- 7180 March, Abnormal mammogram R92.8 [place] [address] [place] [address] [id number] [place] [address] 31971- 5085 Feb, Abnormal mammogram R92.8 [place] [address] [place] [address] 45939- 5122 Feb, Diabetes type 2, uncontrolled E11.65 [place] [address] [address]- 8459 06 Feb, 2017 Screening for breast cancer Z12.39 [place] [address] [address]- 5976 27 Jan, 2017 Screening for breast cancer Z12.39 [place] [address] [place] [address] 51131- 3574 Jan, Type 2 diabetes mellitus with diabetic polyneuropathy E11.42 ; 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 ; Other viral agents as the cause of diseases classified elsewhere B97.89 and Acute upper respiratory infection, unspecified J06.9 [place] [address] [place] [address] 54580- 3231 Jan, [place] [address] [place] [address] [id number] [place] [address] 72849- 7068 17 Dec, 2016 Diabetes type 2, uncontrolled E11.65 ; Dyslipidemia E78.5 ; Generalized anxiety disorder F41.1 ; Depression, unspecified depression type F32.9 ; FDC current use of insulin Z79.4 and Polyneuropathy associated with underlying disease G63 [place] [address] [address]- 0131 16 Dec, 2016 [place] [address] [address]- 8955 14 Dec, 2016 [place] [address] [address]- 0114 Dec, [place] [address] [address]- 8950 Dec, [place] [address] [place] [address] [id number] [place] [address] 37283- 8154 Oct, Well woman exam Z01.419 ; Screening for breast cancer Z12.39 ; FDC current use of insulin Z79.4 ; Type 2 diabetes mellitus without complications E11.9 and Encounter for immunization Z23 [place] [address] [place] [address] [id number] [place] [address] 03690- 0987 Sep, [place] [address] [place] [address] [id number] [place] [address] 58237- 8948 Sep, Diabetes type 2, uncontrolled E11.65 ; Dyslipidemia E78.5 and Depression, unspecified depression type F32.9 [place] [address] [place] [address] [id number] [place] [address] 17564- 2956 Aug, Diabetes type 2, uncontrolled E11.65 ; Encounter for immunization Z23 ; Nasal congestion R09.81 and Ear pressure, bilateral H93.8X3 [place] [address] 15818- 0974 Jul, Eustachian tube dysfunction, left H69.82 [place] [address] [place] [id number] [place] [address] 68002- 0626 Jun, [place] [address] 39234- 9429 Jun, Hospital discharge follow-up Z09 ; Syncope, unspecified syncope type R55 and Acute suppurative otitis media of left ear without spontaneous rupture of tympanic membrane, recurrence not specified H66.002 [place] [address] [place] [id number] [place] [address] 02168- 4568 May, [place] [address] [place] [id number] [place] [address] 89410- 9670 May, [place] [address] [place] [id number] [place] [address] 55158- 9457 May, [place] [address] [place] [id number] [place] [address] 53463- 7785 May, Diabetes type 2, uncontrolled E11.65 ; [...] disturbance G47.9 and Generalized anxiety disorder F41.1 [facility] [address] [address] 2546 March, [facility] [id number] [place] [address] [id number] March, Syncope, unspecified syncope type R55 and Depression, unspecified depression type F32.9 [facility] [address] [place] [address] [id number] [place] [address] [id number] March, Orthostatic hypotension I95.1 [facility] [id number] [place] [address] [id number] March, [facility] [address] [address]- 2546 March, [facility] [place] [id number] [place] [address] [id number] Feb, [facility] [address] [id number] [id number] Feb, Dental examination Z01.20 [facility] [id number] [place] [address] [id number] Jan, [facility] [id number] [place] [address] [id number] Jan, [facility] [id number] [place] [address] [id number] Dec, Diabetes type 2, uncontrolled E11.65 [facility] [id number] [place] [address] [id number] Nov, [facility] [address] [id number] [id number] Nov, Encounter for dental examination Z01.20 [facility] [address] [id number] [id number] Nov, Dental examination Z01.20 [facility] [place] [id number] [place] [address] Sep, Diabetes type 2, uncontrolled E11.[address] [facility] [address] [id number] [place] [id number] Sep, Encounter for dental examination Z01.20 and Dental caries, unspecified K02.9 [facility] [id number] [place] [id number] Sep, Bipolar 2 disorder F31.81 [facility] [id number] [place] [address] Aug, [facility] [id number] [place] [id number] Aug, Follow up V67.9 [facility] [address] [address]- 8581 Jul, Bipolar disorder, unspecified 296.80 [facility] [id number] [place] [address] Jul, Thyroid enlarged 240.9 and Bipolar disorder, unspecified 296.80 [facility] [address] [id number] Jun, Diabetes mellitus type 2, uncontrolled 250.02 ; Bipolar disorder, unspecified 296.80 and Rash 782.1 [facility] [id number] [place] [id number] Jun, [facility] [id number] [place] [id number] May, Urinary tract infection 599.0 [facility] [id number] [place] [address] May, Urinary tract infection 599.0 [facility] [id number] [place] [id number] May, [facility] [id number] [place] [id number] May, Diabetes mellitus type 2, uncontrolled 250.02 and Pica in adults 307.52 [facility] [id number] [place] [id number] Apr, Follow up V67.9 and Diabetes mellitus type 2, uncontrolled 250.02 [facility] [address] [id number] Apr, [facility] [address], [place] [address]- 2546 Apr, [facility] [id number] [place] [address] Apr, Hyperlipidemia 272.4 [facility] [address] [place] [id number] [place] [id number] March, Diabetes type 2, uncontrolled 250.02 [facility] [id number] [place] [address] [id number] March, Diabetes mellitus type 2, uncontrolled 250.02 [facility] [id number] [place] [address] March, Diabetes type 2, uncontrolled 250.02 [facility] [id number] [place] [address] [id number] March, [facility] [id number] [place] [id number] March, [facility] [id number] [place] [id number] Feb, [facility] [place] [facility] [address] [address]- 2546 Feb, [facility] [place] [facility] [address] [address]- 2546 Feb, [facility] [address] [place] [id number] [place] [id number] Jan, [facility] [place] [facility] [address] [address]- 2546 Jan, [facility] [place] [facility] [id number] [address]- 2546 Jan, [facility] [address] [place] [id number] [place] [id number] Jan, [facility] [place] [facility] [address] [address]- 2546 Jan, [facility] [place] [facility] [address] [address]- 6076 Jan, [facility] [address] [facility] [id number] [place] [id number] Jan, [facility] [place] [facility] [address] [facility] [id number] [address]- 4750 Jan, [facility] [place] [facility] [id number] [address]- 6987 Dec, [facility] [address] [facility] [id number] [place] [id number] Dec, [facility] [place] [facility] [id number] [address]- 1183 Dec, [facility] [address] [facility] [id number] [place] [id number] Dec, [facility] [place] [facility] [id number] [address]- 6306 Dec, [facility] [address] [place] [id number] [place] [address] Dec, [facility] [place] [facility] [address] [address]- 9543 Dec, [facility] [place] [facility] [address] [address]- 2117 Dec, [facility] [address] [id number] [place] [id number] Dec, [facility] [address] [id number] [place] [address] Dec, [facility] [place] [facility] [address] [address]- 3778 Dec, [facility] [place] [facility] [address] [facility] [id number] [address]- 3389 Nov, [facility] [place] [facility] [address] [facility] [id number] [address]- 5175 Oct, [facility] [place] [facility] [id number] 1424 Oct, [facility] [address] [facility] [id number] [place] [id number] Sep, [facility] [address] [id number] [address]- 6186 Sep, [facility] [address] [id number] [place] [id number] Sep, [facility] [place] [facility] [address] [facility] [id number] [address]- 1669 Sep, [facility] [address] [facility] [id number] [place] [address] Aug, [facility] [place] [facility] [address] [facility] [id number] [address]- 5677 Aug, [facility] [address] [facility] [id number] [place] [id number] Aug, [facility] [place] [facility] [address] [address]- 2033 Aug, [facility] [place] [facility] [address]- 6676 Jul, [facility] [place] [facility] [address] [facility] [id number] [address]- 9886 Jul, [facility] [address] [facility] [id number] [place] [id number] Jul, [facility] [place] [facility] [id number] [address]- 8555 Jul, [facility] [address] [facility] [id number] [place] [id number] Jun, [facility] [address] [facility] [id number] [place] [id number] Jun, [facility] [place] [facility] [address] [facility] [id number]- 6877 Jun, [facility] [place] [facility] [address] [facility] [id number] [address]- 7454 Jun, [facility] [address] [facility] [id number] [place] [id number] Jun, [facility] [place] [facility] [address] [id number] [place] [address]- 5236 Jun, [facility] [address] [id number] [place] [id number] May, [facility] [place] [facility] [address] [id number] [place] [address]- 3176 May, [facility] [place] [facility] [address] [facility] [id number] [place] [address]- 1996 Apr, [facility] [place] [facility] [address] [id number] [place] [address]- 5519 Apr, [facility] [address] [facility] [id number] [place] [id number] Apr, [facility] [place] [facility] [address] [facility] [id number] [place] [address] Apr, [facility] [place] [facility] [address] [facility] [id number] [place] [address] Apr, [facility] [address] [facility] [id number] [place] [id number] March, [facility] [place] [facility] [address] [facility] [id number] [place] [address] March, [facility] [place] [facility] [address] [facility] [id number] [address] March, [facility] [address] [facility] [id number] [place] [id number] March, [facility] [place] [facility] [address] [facility] [id number] [address] March, [facility] [address] [facility] [id number] [place] [id number] March, [facility] [place] [facility] [address] [facility] [id number] [place] [address] March, [facility] [address] [facility] [id number] [place] [id number] Feb, [facility] [place] [facility] [address] [facility] [id number] [place] [address] Feb, [facility] [place] [facility] [address] [facility] [id number] [place] [address] Jan, [facility] [address] [id number] [place] [id number] Jan, [facility] [place] [facility] [address] [facility] [id number] [place] [address] Jan, [facility] [place] [facility] [address] [facility] [id number] [address] Jan, [facility] [address] [id number] [place] [id number] Jan, [facility] [address] [id number] [place] [id number] Dec, [facility] [place] [facility] [address] [facility] [id number] [address] Dec, [facility] [place] [facility] [address] [id number] [address] Dec, [facility] [place] [address] [id number] [place] [id number] Dec, [facility] [place] [facility] [address] [facility] [id number] [address] 2546 Dec, [facility] [place] [address] [facility] [id number] [place] [address] Dec, [facility] [place] [facility] [id number] [address] Dec, [facility] [place] [facility] [address] [facility] [id number] [address] Dec, [facility] [place] [address] [id number] [place] [id number] Dec, [facility] [place] [address] [facility] [id number] [place] [id number] Nov, [facility] [place] [facility] [address] [facility] [id number] [address] Nov, [facility] [place] [facility] [address] [id number] [address] Nov, [facility] [place] [address] [id number] [place] [id number] Nov, [facility] [place] [address] [id number] [place] [id number] Oct, [facility] [place] [facility] [address] [id number] [address] Oct, [facility] [place] [address] [id number] [place] [id number] Oct, [facility] [place] [facility] [address] [id number] [place] [address]121 Oct, [facility] [place] [facility] [address] [facility] [id number] [address] Oct, [facility] [place] [facility] [address] [facility] [id number] [address]157 Oct, [facility] [place] [address] [facility] [id number] [place] [address] Oct, [facility] [place] [facility] [address] [facility] [id number] [address] 9647 Oct, [facility] [place] [facility] [address] [facility] [id number] [address]- 1875 Sep, [facility] [place] [facility] [address] [facility] [id number] [address] 2984 Sep, [facility] [place] [address] [id number] [place] [id number] Sep, [facility] [place] [facility] [address] [facility] [id number] [address]- 7[address] Sep, [facility] [place] [facility] [address] [facility] [id number] [address] 9856 Sep, [facility] [place] [address] [id number] [place] [id number] Sep, [facility] [place] [address] [id number] [place] [id number] Aug, [facility] [place] [facility] [address] [facility] [id number] [address] 9747 Aug, [facility] [place] [facility] [address] [facility] [id number] [address]256 Aug, [facility] [place] [address] [id number] [place] [id number] Aug, [facility] [place] [address] [id number] [place] [id number] Aug, [facility] [place] [facility] [address] [facility] [id number] [place] [address]- 1266 Aug, [facility] [place] [facility] [address] [facility] [id number] [place] [address] Aug, [facility] [place] [facility] [address] [facility] [id number] [address] 2075 Aug, [facility] [place] [address] [facility] [id number] [place] [id number] Jul, [facility] [place] [facility] [address] [facility] [id number] [address] 8962 Jul, [facility] [place] [facility] [address] [facility] [id number] [address] 64[address] Jul, [facility] [place] [address] [facility] [id number] [place] [id number] Jul, [facility] [place] [address] [facility] [id number] [place] [id number] Jul, [facility] [place] [facility] [address] [facility] [id number] [address]- 3066 May, [facility] [place] [facility] [address] [facility] [id number] [address]- 3753 Apr, [facility] [place] [address] [facility] [id number] [place] [address] Apr, [facility] [place] [address] [facility] [id number] [place] [id number] Apr, [facility] [place] [facility] [address] [facility] [id number] [address]- 2546 March, [facility] [place] [address] [id number] [place] [id number] March, [facility] [place] [address] [id number] [place] [address] March, [facility] [place] [address] [id number] [place] [address] March, [facility] [place] [address] [id number] [place] [id number] March, [facility] [place] [address] [id number] [place] [id number] March, [facility] [address] [facility] [id number] [address]46 March, [facility] [address] [facility] [id number] [address]- 2546 March, [facility] [address] [id number] [address] 2546 Feb, [facility] [place] [address] [id number] [place] [address] Feb, [facility] [place] [address] [id number] [place] 9957[address]336 Feb, [facility] [place] [address] [id number] [place] [id number] Feb, [facility] [id number] [address] Feb, [facility] [place] [address] [id number] [place] [id number] Feb, [facility] [place] [address] [id number] [id number] Jan, [facility] [place] [address] [id number] [place] [id number] Jan, [facility] [place] [address] [id number] [place] [address] Dec, [facility] [place] [address] [id number] [place] [id number] Dec, [facility] [address] [id number] [address]10 Dec, [facility] [place] [address] [id number] [place] 904[place]1969 Dec, [facility] [place] [address] [id number] [place] 524583207 Dec, [facility] [place] [address] [id number] [place] [id number] Dec, [facility] [place] [address] [id number] [place] [id number] Dec, [facility] [address] [id number] [address]- 1548 Nov, [facility] [place] [address] [id number] [place] [id number] Nov, [facility] [place] [address] [id number] [place] 486210046 Nov, [facility] [place] [address] [id number] [place] 850453516 Nov, [facility] [place] [address] [id number] [place] [address]459[address] Nov, [facility] [address] [facility] [id number] [address] 7565 Oct, [facility] [place] [address] [id number] [place] [id number] Oct, [facility] [place] [address] [id number] [place] [id number] Oct, [facility] [place] [address] [id number] [place] [address] Oct, [facility] [address] [facility] [id number] [address]- 8886 Oct, [facility] [place] [facility] [address] [facility] [id number] [address]- 7391 Oct, [facility] [place] [facility] [address] [facility] [id number] 97677130- 5867 Oct, [facility] [place] [address] [id number] [place] [address] Sep, [facility] [place] [facility] [address] [facility] [id number] [address]- 6911 Sep, [facility] [place] [facility] [address] [facility] [id number] [address]- 5898 Sep, [facility] [place] [address] [id number] [place] 905978982 Sep, [facility] [place] [address] [id number] [place] [address] Sep, [facility] [place] [address] [id number] [place] [id number] Sep, [facility] [place] [facility] [address] [facility] [id number]48[place]- 6015 Sep, [facility] [place] [facility] [address] [facility] [id number] [address]- 8211 Sep, [facility] [place] [facility] [address] [facility] [id number]27[place]- 0436 Sep, [facility] [place] [address] [facility] [id number] [place] [address] Aug, [facility] [place] [facility] [address] [facility] [id number], [place] [address]- 1309 Aug, [facility] [place] [address] [facility] [id number] [place] [address]498[address] Aug, [facility] [place] [facility] [address] [facility] [id number]24850- 0535 Aug, [facility] [place] [facility] [address] [facility] [id number] [address]- 4175 Aug, [facility] [place] [address] [id number] [place] [id number] Aug, [facility] [place] [address] [facility] [id number] [place] 393[address] Aug, [facility] [place] [facility] [address] [facility] [id number] [address]- 8206 Aug, [facility] [place] [address] [id number] [place] [address]70422570 Aug, [facility] [place] [address] [id number] [place] [id number] Jul, [facility] [place] [address] [id number] [place] [id number] Jun, [facility] [place] [address] [id number] [place] 6536[address]201 May, [facility] [place] [address] [id number] [place] [address] May, [facility] [place] [address] [id number] [place] 370530371 May, [facility] [place] [address] [id number] [place] 555[address]326[address] May, [facility] [place] [address] [id number] [place] 34[place]85914 May, [facility] [place] [address] [id number] [place] 6194[place]604 May, [facility] [place] [address] [id number] [place] 791840303 May, [facility] [place] [address] [id number] [place] [id number] Apr, [facility] [place] [address] [id number] [place] 47[place]3498 Apr, [facility] [place] [address] [id number] [place] 3118[address]687 Apr, [facility] [place] [address] [id number] [place] 030781546 Apr, [facility] [place] [address] [id number] [place] 224594800 Apr, [facility] [place] [address] [id number] [place] 338[place]1411 Apr, [facility] [place] [address] [id number] [place] 46[address] March, [facility] [place] [address] [id number] [place] 499739832 March, [facility] [place] [address] [id number] [place] 518384124 Feb, [facility] [place] [address] [id number] [place] [id number] 16 Feb, 2012 [facility] [place] [address] [id number] [place] 809472740 Feb, [facility] [place] [address] [id number] [place] 372841554 Jan, [facility] [place] [address] [id number] [place] 529243456 Jan, [facility] [place] [address] [id number] [place] [id number] 15 Jan, 2012 [facility] [place] [address] [id number] [place] 403819721 Jan, [facility] [place] [address] [id number] [place] 40[address]25[address] Dec, [facility] [id number] [address]- 0278 Dec, [facility] [place] [address] [id number] [place] [id number] Dec, [facility] [place] [address] [id number] [place] [id number] Nov, [facility] [place] [address] [id number] [place] [id number] Nov, [facility] [place] [address] [id number] [place] [id number] Nov, [facility] [address] [id number] [address]- 3310 Oct, [facility] [id number] [place] [address] [id number]- 0256 Oct, [facility] [id number] [place] [address] 890089- 5576 Oct, [facility] [id number] [place] [address] 909285- 5451 Aug, [facility] [address] [id number]- 6383 Aug, [facility] [place] [facility] [address] [id number] [place] [address]- 4042 Aug, [facility] [address] [id number] [place] [address]- 0042 March, [facility] [place] [facility] [address] [id number] [place] [address]- 8324 Oct, [facility] [place] [facility] [address] [id number] [place] [address]- 7304 Oct, [facility] [place] [facility] [address] [id number] [place] [address]- 6165 Sep, [facility] [place] [facility] [address] [id number] [place] [address]- 6821 Sep, [facility] [place] [facility] [address] [id number] [place] [address]- 1342 Sep, [facility] [place] [facility] [address] [id number] [place] [address]- 4398 Aug, [facility] [place] [facility] [address] [id number] [place] [address]- 9516 Aug, [facility] [place] [facility] [address] [id number] [place] [address]- 9850 Jun, [facility] [place] [facility] [address] [id number] [place] [address]- 6539 May, [facility] [place] [facility] [address] [id number] [place] [address]- 3763 Jan, [facility] [place] [facility] [address] [id number] [place] [address]- 3408 Nov, [facility] [place] [facility] [address] [id number] [place] [address]- 8888 Oct, [facility] [place] [facility] [address] [id number] [place] [address]- 9885 Sep, [facility] [place] [facility] [address] [id number] [place] [address]- 8904 Sep, [facility] [address] [facility] [id number] [address]- 6865 Sep, [facility] [address] [id number], [place] [address]- 6671 Sep, [facility] [address] [id number] [address]- 0966 Sep, [facility] [address] [id number]- 9400 Aug, [facility] [address] [id number], [place] [address]- 3163 Aug, [facility] [address] [id number] [address]- 5348 Jul, [facility] [address] [id number] [address]- 3031 Jun, IMMUNIZATIONS No Known Immunizations SOCIAL HISTORY Never Assessed REASON FOR VISIT [facility] PLAN OF CARE VITAL SIGNS MEDICATIONS Unknown [...] 08/2016 Hospitalization History chest pain ED visit [facility], pt scheduled for heart cath on May Hospitalization History Ana QUEEN 2012 Hospitalization History Chest pain-[facility] 12/22/16
--- OUTSIDE RECORDS SUMMARY | 2019-03-21 19:07 | XMS REPORT ---
Author Author Migration, Doctor Organization [facility] Address Unknown Phone Unavailable Care Team Providers [facility] Laborer Name Role Phone Migration, Doctor Unavailable Unavailable PROBLEMS Type Condition ICD9-CM Code [id number] Code Onset Dates Condition Status SNOMED Code Problem Serum creatinine raised R79.89 Active 911444988 Problem Episodic mood disorder F39 Active 05510857 Problem Generalized anxiety disorder F41.1 Active 37984466 Problem Lumbago with sciatica, left side M54.42 Active 739981669 Problem Dyslipidemia E78.5 Active 113900238 Problem Other chronic pain G89.29 Active 16770459 Problem Polyneuropathy associated with underlying disease G63 Active 515746209 Problem Syncope, unspecified syncope type R55 Active 319028356 Problem Recurrent major depressive disorder, in partial remission F33.41 Active 46267490 Problem Other seasonal allergic rhinitis J30.2 Active 550264146 Problem Hammertoe of left foot M20.42 Active 237953642 Problem Lumbago with sciatica, right side M54.41 Active 651577356 Problem 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 Active 620395096 Problem Type 2 diabetes mellitus with diabetic polyneuropathy E11.42 Active 73340386 Problem Stage 2 chronic kidney disease N18.2 Active 454743373 Problem Vitamin D deficiency E55.9 Active 39051955 ALLERGIES No Information ENCOUNTERS Encounter Location Date Diagnosis [place] [address], [place] [address] Jan, care home current use of insulin Z79.4 [place] [address], [place] [address] Jan, [place] [address] [place] [address] 08180- 2594 Jan, Type 2 diabetes mellitus with diabetic polyneuropathy E11.42 [place] [address], [place] [address] Jan, [facility] [address], [place] [address] 0[address] Jan, Type 2 diabetes mellitus with diabetic polyneuropathy E11.42 [facility] [address] [place] [address] 65017- 3184 Dec, 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 [facility] [address] [place] [id number] [place] [address] 89657- 6724 Dec, care home current use of insulin Z79.4 [place] [address] [place] [address] 89647- 2237 Dec, [place] [address] [place] [id number] [place] [address] 65176- 0305 Nov, Hammertoe of left foot M20.42 ; Peroneal tendonitis of left lower extremity M76.72 ; Callus of foot L84 and Type 2 diabetes mellitus with diabetic polyneuropathy E11.42 [place] [address] [place] [address] 72248- 5101 Nov, [place] [address] [place] [id number] [place] [address] 66274- 5886 Nov, Encounter for immunization Z23 [facility] [address] [place] [address] [id number] [place] [address] 04432- 1458 Oct, [facility] [address] [place] [address] 07241- 7556 Oct, [facility] [address] [place] [address] 19405- 2925 Oct, Acute pancreatitis, unspecified complication status, unspecified pancreatitis type K85.90 [facility] [address] [place] [address] 08031- 2116 Sep, 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 [facility] [address] [place] [address] 93608- 6471 Sep, [place] [address] [place] [address] 31192- 4945 Sep, Type 2 diabetes mellitus with diabetic polyneuropathy E11.42 ; Stage 2 chronic kidney disease N18.2 and Recurrent major depressive disorder, in partial remission F33.41 [place] [address] [place] [id number] [place] [address] 30310- 0473 Sep, care home current use of insulin Z79.4 [place] [address] [place] [id number] [place] [address] 11585- 2771 Sep, Acute maxillary sinusitis, recurrence not specified J01.00 and Bronchiolitis J21.9 [place] [address] 9[address]85- 7346 17 Jul, 2018 [place] [address] [place] [id number] [place] [address] 05797- 1682 Jun, Type 2 diabetes mellitus with diabetic polyneuropathy E11.42 ; Open wound T14.8XXA ; 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 ; Stage 2 chronic kidney disease N18.2 and Episodic mood disorder F39 [place] [address] [place] [id number] [place] [address] 74778- 3519 May, [place] [address] [place] [id number] [place] [address] 12007- 4524 March, [place] [address] [place] [id number] [place] [address] 88838- 2982 March, Type 2 diabetes mellitus with diabetic [...] H60.502 and Non-adherence to medical treatment Z91.[address] [id number] [id number] Feb, Dental examination Z01.20 [facility] [address], [place] [address] 6[address] Feb, Labile hypertension R09.89 ; Syncope, unspecified syncope type R55 ; Chest pain, unspecified type R07.9 and Dyslipidemia E78.5 [place] [address] [place] [id number] [place] [address] 33447- 9026 Feb, [facility] [address] [place] [id number] [place] [address] 81340- 4859 Jan, [facility] [place] [address] [place] [address] [id number] [place] [address] [id number] Jan, Dental examination Z01.20 [facility] [address] [place] [id number] [place] [address] 77041- 1582 Jan, Acute non-recurrent maxillary sinusitis J01.00 and Dyslipidemia E78.[address] [id number] [place] [address] [id number] Jan, Dental examination Z01.20 and Dental caries K02.[address] [id number] [place]LAND[place] [id number] Jan, [facility] [address] [place] [address] [id number] [place] [address] [id number] Dec, Dental examination Z01.20 [facility] [address] [place] [address] 32075 -1002 Dec, Seasonal allergic rhinitis, unspecified trigger J30.2 [facility] [address] [place] [address] 07429- 0130 Nov, [place] [address] [place] [id number] [place] [address] 93295- 3449 Nov, Type 2 diabetes mellitus with diabetic polyneuropathy E11.42 ; Dyslipidemia E78.5 ; Lumbago with sciatica, right side M54.41 ; Lumbago with sciatica, left side M54.42 ; 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 ; Polyneuropathy associated with underlying disease G63 ; Stage 2 chronic kidney disease N18.2 and Syncope, unspecified syncope type R55 [place] [address] 03678- 5769 Oct, Type 2 diabetes mellitus with diabetic polyneuropathy E11.42 ; Acute otitis externa of left ear, unspecified type H60.502 ; Overweight (BMI 25.0-29.9) E66.3 ; Dyslipidemia E78.5 and Polyneuropathy associated with underlying disease G63 [place] [address] 62885- 2158 Sep, [place] [address] 15173- 0193 Aug, Abnormal mammogram R92.8 [place] [address] 80514- 1863 Aug, Type 2 diabetes mellitus with diabetic polyneuropathy E11.42 [place] [address] 30937- 4372 Aug, [place] [address] 47881- 1639 Aug, Type 2 diabetes mellitus with diabetic polyneuropathy E11.42 ; Syncope, unspecified syncope type R55 ; Other chronic pain G89.29 and Encounter for immunization Z23 [place] [address] 14159- 7176 Aug, Type 2 diabetes mellitus with diabetic polyneuropathy E11.42 [place] [address] [place] [id number] [place] [address] 77558- 1120 Jul, Type 2 diabetes mellitus with diabetic polyneuropathy E11.42 and Serum creatinine raised R79.89 [place] [address] 97124- 3291 Jul, Type 2 diabetes mellitus with diabetic polyneuropathy E11.42 and Serum creatinine raised R79.89 [place] [address] 51181- 5197 May, [place] [address], [place] [address]- 8593 May, [place] [address] [place] [id number] [place] [address] 98947- 1665 May, Head injury, initial encounter S09.90XA ; Facial pain R51 ; Neck pain M54.2 and Fall, initial encounter W19.XXXA [place] [address] [place] [id number] [place] [address] 44623- 0999 May, Type 2 diabetes mellitus with diabetic polyneuropathy E11.42 [place] [address] [place] [id number] [place] [address] 48703- 8973 May, [place] [address] [place] [id number] [place] [address] 71490- 4164 May, Type 2 diabetes mellitus with diabetic polyneuropathy E11.42 [place] [address] [place] [address] [place] [address] 94424- 8688 May, Dyslipidemia E78.5 ; 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 ; Type 2 diabetes mellitus with diabetic polyneuropathy E11.42 ; Generalized anxiety disorder F41.1 and Other seasonal allergic rhinitis J30.2 [place] [address] [place] [address] 84448- 5752 Apr, Type 2 diabetes mellitus with diabetic polyneuropathy E11.42 [place] [address] [place] [address] 90960- 6775 March, [place] [address] [place] [address] 90727- 9613 March, Abnormal mammogram R92.8 [place] [address] [place] [id number] [place] [address] 21709- 4504 Feb, Abnormal mammogram R92.8 [place] [address] [place] [address] 96634- 9696 Feb, Diabetes type 2, uncontrolled E11.65 [place] [address], [place] [address]- 8186 06 Feb, 2017 Screening for breast cancer Z12.39 [place] [address], [place] [address]- 1698 27 Jan, 2017 Screening for breast cancer Z12.39 [place] [address] [place] [address] 14060- 5017 Jan, Type 2 diabetes mellitus with diabetic polyneuropathy E11.42 ; 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 ; Other viral agents as the cause of diseases classified elsewhere B97.89 and Acute upper respiratory infection, unspecified J06.9 [place] [address] [place] [address] 80788- 2050 Jan, [place] [address] [place] [id number] [place] [address] 20256- 3376 17 Dec, 2016 Diabetes type 2, uncontrolled E11.65 ; Dyslipidemia E78.5 ; Generalized anxiety disorder F41.1 ; Depression, unspecified depression type F32.9 ; care home current use of insulin Z79.4 and Polyneuropathy associated with underlying disease G63 [place] [address], [place] [address]- 2721 16 Dec, 2016 [place] [address], [place] [address]- 6035 14 Dec, 2016 [place] [address], [place] [address]- 4651 Dec, [place] [address], [place] [address]- 9206 Dec, [place] [address] [place] [id number] [place] [address] 45057- 6514 Oct, Well woman exam Z01.419 ; Screening for breast cancer Z12.39 ; care home current use of insulin Z79.4 ; Type 2 diabetes mellitus without complications E11.9 and Encounter for immunization Z23 [place] [address] [place] [id number] [place] [address] 74775- 5594 Sep, [place] [address] [place] [id number] [place] [address] 37916- 7293 Sep, Diabetes type 2, uncontrolled E11.65 ; Dyslipidemia E78.5 and Depression, unspecified depression type F32.9 [place] [address] [place] [address] [place] [address] 18736- 3619 Aug, Diabetes type 2, uncontrolled E11.65 ; Encounter for immunization Z23 ; Nasal congestion R09.81 and Ear pressure, bilateral H93.8X3 [place] [address] 78826- 8416 Jul, Eustachian tube dysfunction, left H69.82 [place] [address] [place] [id number] [place] [address] 16507- 5144 Jun, [place] [address] 49845- 8200 Jun, Hospital discharge follow-up Z09 ; Syncope, unspecified syncope type R55 and Acute suppurative otitis media of left ear without spontaneous rupture of tympanic membrane, recurrence not specified H66.002 [place] [address] [place] [address] [place] [address] 68879- 1101 May, [place] [address] [place] [id number] [place] [address] 75268- 8735 May, [place] [address] [place] [id number] [place] [address] 77465- 5600 May, [place] [address] [place] [id number] [place] [address] 54979- 8620 May, Diabetes type 2, uncontrolled E11.65 ; [...] disturbance G47.9 and Generalized anxiety disorder F41.1 [facility] [address], [place] [address] 2546 March, [facility] [place] [id number] [place] [address] [id number] March, Syncope, unspecified syncope type R55 and Depression, unspecified depression type F32.9 [facility] [place] [address] [place] [id number] [place] [address] [id number] March, Orthostatic hypotension I95.1 [facility] [place] [address] [place] [id number] [place] [address] [id number] March, [facility] [address], [place] [address]- 2546 March, [facility] [place] [id number] [place] [address] [id number] Feb, [facility] [place] [address] [id number] [id number] Feb, Dental examination Z01.20 [facility] [place] [id number] [place] [address] [id number] Jan, [facility] [place] [address] [id number] [place] [address] [id number] Jan, [facility] [id number] [place] [address] [id number] Dec, Diabetes type 2, uncontrolled E11.65 [facility] [id number] [place] [address] [id number] Nov, [facility] [place] [address] [id number] [place] [id number] Nov, Encounter for dental examination Z01.20 [facility] [place] [address] [id number] [place] [id number] Nov, Dental examination Z01.20 [facility] [place] [id number], [place] [id number] Sep, Diabetes type 2, uncontrolled E11.[address] [facility] [address] [id number] [place] [id number] Sep, Encounter for dental examination Z01.20 and Dental caries, unspecified K02.9 [facility] [place] [id number], [place] [address] Sep, Bipolar 2 disorder F31.81 [facility] [id number], [place] [id number] Aug, [facility] [id number], [place] [id number] Aug, Follow up V67.9 [facility] [address] [address]- 6713 Jul, Bipolar disorder, unspecified 296.80 [facility] [place] [id number], [place] [id number] Jul, Thyroid enlarged 240.9 and Bipolar disorder, unspecified 296.80 [facility] [address] [address] Jun, Diabetes mellitus type 2, uncontrolled 250.02 ; Bipolar disorder, unspecified 296.80 and Rash 782.1 [facility] [place] [id number], [place] [id number] Jun, [facility] [id number], [place] [id number] May, Urinary tract infection 599.0 [facility] [id number], [place] [id number] May, Urinary tract infection 599.0 [facility] [id number], [place] [id number] May, [facility] [id number], [place] [address] May, Diabetes mellitus type 2, uncontrolled 250.02 and Pica in adults 307.52 [facility] [place] [id number], [place] [address] Apr, Follow up V67.9 and Diabetes mellitus type 2, uncontrolled 250.02 [facility] [place] [address], [place] [id number] Apr, [facility] [address], [place] [address]- 2546 Apr, [facility] [id number], [place] [address] Apr, Hyperlipidemia 272.4 [facility] [address] [place] [id number] [id number] March, Diabetes type 2, uncontrolled 250.02 [facility] [id number] [place] [address] [id number] March, Diabetes mellitus type 2, uncontrolled 250.02 [facility] [id number], [place] 5860[address] March, Diabetes type 2, uncontrolled 250.02 [facility] [id number] [place] [address] [id number] March, [facility] [id number], [place] [id number] March, [facility] [id number], [place] [id number] Feb, [facility] [place] [facility] [address], [place] [address]- 2546 Feb, [facility] [place] [facility] [address], [place] [address]- 2546 Feb, [facility] [address] [place] [id number], [place] [id number] Jan, [facility] [place] [facility] [address], [place] [address]- 2546 Jan, [facility] [place] [facility] [address] [place] [id number], [place] [address]- 2546 Jan, [facility] [address] [place] [address] [id number], [place] [id number] Jan, [facility] [place] [facility] [address], [place] [address]- 2546 Jan, [facility] [place] [facility] [address], [place] [address]- 6726 Jan, [facility] [address] [facility] [id number], [place] [id number] Jan, [facility] [place] [facility] [address] [facility] [id number], [place] [address]- 8260 Jan, [facility] [place] [facility] [address] [id number], [place] [address]- 7558 Dec, [facility] [address] [facility] [id number] [place] [id number] Dec, [facility] [place] [facility] [address] [id number], [place] [address]- 9536 Dec, [facility] [address] [facility] [id number] [place] [address] Dec, [facility] [place] [facility] [address] [place] [address] [id number], [place] [address]- 5436 Dec, [facility] [address] [place] [id number], [place] [id number] Dec, [facility] [place] [facility] [address], [place] [address]- 7977 Dec, [facility] [place] [facility] [address], [place] [address]- 7301 Dec, [facility] [address] [place] [id number], [place] [id number] Dec, [facility] [address] [place] [address] [id number], [place] [id number] Dec, [facility] [place] [facility] [address], [place] [address]- 8015 Dec, [facility] [place] [facility] [address] [facility] [id number], [place] [address]- 9672 Nov, [facility] [place] [facility] [address] [facility] [id number], [place] [address]- 5127 Oct, [facility] [place] [facility] [id number]- 1695 Oct, [facility] [address] [facility] [id number], [place] 63695[address]32 Sep, [facility] [address] [id number], [place] [address]- 2626 Sep, [facility] [address] [id number], [place] [id number] Sep, [facility] [place] [facility] [address] [facility] [id number], [place] [address]- 5333 Sep, [facility] [address] [facility] [id number], [place] [id number] Aug, [facility] [place] [facility] [address] [facility] [id number], [place] [address]- 2690 Aug, [facility] [address] [facility] [id number], [place] [id number] Aug, [facility] [place] [facility] [address], [place] [address]- 4975 Aug, [facility] [place] [facility] [address], [place]- 6614 Jul, [facility] [place] [facility] [address] [facility] [id number], [place] [address]- 3997 Jul, [facility] [address] [facility] [id number], [place] 238635452 Jul, [facility] [place] [facility] [id number], [place] [address]- 2015 Jul, [facility] [address] [facility] [id number], [place] [id number] Jun, [facility] [address] [facility] [id number], [place] [id number] Jun, [facility] [place] [facility] [address] [facility] [id number][place]20810- 1199 Jun, [facility] [place] [facility] [address] [facility] [id number], [place] [address]- 2060 Jun, [facility] [address] [facility] [id number], [place] [id number] Jun, [facility] [place] [facility] [address] [id number] [place] [address]- 4826 Jun, [facility] [address] [id number] [place] [id number] May, [facility] [place] [facility] [address] [id number] [place] [address]- 2736 May, [facility] [place] [facility] [address] [facility] [id number] [place] [address]- 5033 Apr, [facility] [place] [facility] [address] [id number] [place] [address]- 1942 Apr, [facility] [address] [facility] [id number] [place] [id number] Apr, [facility] [place] [facility] [address] [facility] [id number] [place] [address]- 4736 Apr, [facility] [place] [facility] [address] [facility] [id number] [place] [address]- 9169 Apr, [facility] [address] [facility] [id number], [place] [id number] March, [facility] [place] [facility] [address] [facility] [id number] [place] [address] March, [facility] [place] [facility] [address] [facility] [id number], [place] [address] March, [facility] [address] [facility] [id number][place] [id number] March, [facility] [place] [facility] [address] [facility] [id number], [place] [address] March, [facility] [address] [facility] [id number] [place] [id number] March, [facility] [place] [facility] [address] [facility] [id number] [place] [address] March, [facility] [address] [facility] [id number] [place] [id number] Feb, [facility] [place] [facility] [address] [facility] [id number] [place] [address] Feb, [facility] [place] [facility] [address] [facility] [id number] [place] [address] Jan, [facility] [address] [id number] [place] [id number] Jan, [facility] [place] [facility] [address] [facility] [id number] [place] [address] Jan, [facility] [place] [facility] [address] [facility] [id number], [place] [address] Jan, [facility] [address] [id number] [place] [id number] Jan, [facility] [address] [id number] [place] [id number] Dec, [facility] [place] [facility] [address] [facility] [id number], [place] [address] Dec, [facility] [place] [facility] [address] [id number], [place] [address] Dec, [facility] [address] [id number] [place] [id number] Dec, [facility] [place] [facility] [address] [facility] [id number], [place] [address] Dec, [facility] [address] [facility] [id number][place] [id number] Dec, [facility] [place] [facility] [id number], [place] [address] Dec, [facility] [place] [facility] [address] [facility] [id number], [place] [address] Dec, [facility] [address] [id number] [place] [id number] Dec, [facility] [address] [facility] [id number] [place] [id number] Nov, [facility] [place] [facility] [address] [facility] [id number], [place] [address] Nov, [facility] [place] [facility] [address] [id number], [place] [address] Nov, [facility] [address] [id number] [place] [id number] Nov, [facility] [address] [id number] [place] [id number] Oct, [facility] [place] [facility] [address] [id number], [place] [address] Oct, [facility] [address] [id number] [place] [id number] Oct, [facility] [place] [facility] [address] [id number] [place] [address] Oct, [facility] [place] [facility] [address] [facility] [id number], [place] [address] Oct, [facility] [place] [facility] [address] [facility] [id number], [place] [address] Oct, [facility] [address] [facility] [id number][place] [id number] Oct, [facility] [place] [facility] [address] [facility] [id number], [place] [address] Oct, [facility] [place] [facility] [address] [facility] [id number], [place] [address] Sep, [facility] [place] [facility] [address] [facility] [id number], [place] [address] Sep, [facility] [address] [id number][place] [id number] Sep, [facility] [place] [facility] [address] [facility] [id number], [place] [address] Sep, [facility] [place] [facility] [address] [facility] [id number], [place] [address] Sep, [facility] [address] [id number], [place] [id number] Sep, [facility] [address] [id number][place] [id number] Aug, [facility] [place] [facility] [address] [facility] [id number], [place] [address] 8089 Aug, [facility] [place] [facility] [address] [facility] [id number], [place] [address] Aug, [facility] [address] [id number][place] [address] Aug, [facility] [address] [id number][place] [address] Aug, [facility] [place] [facility] [address] [facility] [id number] [place] [address] Aug, [facility] [place] [facility] [address] [facility] [id number] [place] [address]- [address]34 Aug, [facility] [place] [facility] [address] [facility] [id number], [place] [address] 4084 Aug, [facility] [address] [facility] [id number], [place] [address] Jul, [facility] [place] [facility] [address] [facility] [id number], [place] [address]- 8[address] Jul, [facility] [place] [facility] [address] [facility] [id number], [place] [address] 2933 Jul, [facility] [address] [facility] [id number], [place] [id number] Jul, [facility] [address] [facility] [id number], [place] [address]89 Jul, [facility] [place] [facility] [address] [facility] [id number], [place] [address] 6[address] May, [facility] [place] [facility] [address] [facility] [id number], [place] [address]- 1595 Apr, [facility] [address] [facility] [id number], [place] [address]455 Apr, [facility] [address] [facility] [id number], [place] [address]34 Apr, [facility] [place] [facility] [address] [facility] [id number], [place] [address]46 March, [facility] [address] [id number] [place] [address] March, [facility] [address] [id number] [place] [address] March, [facility] [address] [id number] [place] [id number] March, [facility] [address] [id number] [place] [id number] March, [facility] [address] [id number] [place] [address] March, [facility] [address] [facility] [id number], [place] [address] March, [facility] [address] [facility] [id number], [place] [address]46 March, [facility] [address] [id number], [place] [address] Feb, [facility] [address] [id number] [place] [address] Feb, [facility] [address] [id number] [place] [address] Feb, [facility] [address] [id number] [place] [id number] Feb, [facility] [address]00565100[address], [place] [address] Feb, [facility] [address] [id number] [place] [address] Feb, [facility] [address] [id number] [place] [address] Jan, [facility] [address] [id number] [place] [id number] Jan, [facility] [address] [id number] [place] [address] Dec, [facility] [address] [id number] [place] [address] Dec, [facility] [address] [id number], [place] [address] Dec, [facility] [address] [id number] [place] [id number] Dec, [facility] [address] [id number] [place] [id number] Dec, [facility] [address] [id number] [place] [id number] Dec, [facility] [address] [id number] [place] [address] Dec, [facility] [address] [id number], [place] [address] Nov, [facility] [address] [id number] [place] [id number] Nov, [facility] [address] [id number] [place] [address]89446972 Nov, [facility] [address] [id number] [place] 628039[address] Nov, [facility] [address] [id number] [place] [address]45707717 Nov, [facility] [address] [facility] [id number], [place] [address]- [address]6 Oct, [facility] [address] [id number] [place] [address]89[address]201 Oct, [facility] [address] [id number] [place] [id number] Oct, [facility] [address] [id number], [place] [address]84[address]336 Oct, [facility] [address] [facility] [id number], [place] [address]- [address] Oct, [facility] [place] [facility] [address] [facility] [id number], [place] [address]- 7837 Oct, [facility] [place] [facility] [address] [facility] [id number], [place] 35026128- 7410 Oct, [facility] [address] [id number], [place] 90[address]33501 Sep, [facility] [place] [facility] [address] [facility] [id number], [place] [address]- [address] Sep, [facility] [place] [facility] [address] [facility] [id number], [place] [address]- 1107 Sep, [facility] [address] [id number] [place] [address]47[address] Sep, [facility] [address] [id number], [place] 346086051 Sep, [facility] [address] [id number], [place] 446993734 Sep, [facility] [place] [facility] [address] [facility] [id number], [place]47833- 1223 Sep, [facility] [place] [facility] [address] [facility] [id number], [place] [address]- 5670 Sep, [facility] [place] [facility] [address] [facility] [id number], [place] 398243- [address]18 Sep, [facility] [address] [facility] [id number], [place] 746147762 Aug, [facility] [place] [facility] [address] [facility] [id number], [place] [address]- 6786 Aug, [facility] [address] [facility] [id number], [place] 835777477 Aug, [facility] [place] [facility] [address] [facility] [id number], [place] 704282- 4548 Aug, [facility] [place] [facility] [address] [facility] [id number], [place] [address]- 4622 Aug, [facility] [address] [id number], [place] 408132048 Aug, [facility] [address] [facility] [id number], [place] 919178668 Aug, [facility] [place] [facility] [address] [facility] [id number], [place] [address]- 2466 Aug, [facility] [address] [id number] [place] 087015962 Aug, [facility] [place] [address] [id number] [place] 392978253 Jul, [facility] [place] [address] [id number] [place] 010993485 Jun, [facility] [place] [address] [id number] [place] 720400158 May, [facility] [place] [address] [id number] [place] 278240172 May, [facility] [place] [address] [id number] [place] 606109700 May, [facility] [address] [id number] [place] 380989544 May, [facility] [place] [address] [id number] [place] 856380786 May, [facility] [place] [address] [id number] [place] 314284670 May, [facility] [place] [address] [id number] [place] 380235353 May, [facility] [address] [id number] [place] 350458226 Apr, [facility] [address] [id number] [place] 744063681 Apr, [facility] [place] [address] [id number] [place] 6437[place]551 Apr, [facility] [address] [id number] [place] 318223919 Apr, [facility] [place] [address] [id number] [place] 339626601 Apr, [facility] [address] [id number] [place] 104782006 Apr, [facility] [address] [id number] [place] 573954815 March, [facility] [address] [id number] [place] 63[place]154 March, [facility] [address] [id number] [place] 328709830 Feb, [facility] [address] [id number] [place] [id number] 16 Feb, 2012 [facility] [place] [address] [id number] [place] [id number] Feb, [facility] [place] [address] [id number] [place] 551684230 Jan, [facility] [place] [address] [id number] [place] 609751108 Jan, [facility] [address] [id number] [place] 755859458 15 Jan, 2012 [facility] [place] [address] [id number] [place] 837328691 Jan, [facility] [address] [id number] [place] [id number] Dec, [facility] [address]00565100[place], [place] [address]- [address] Dec, [facility] [address] [id number] [place] [address] Dec, [facility] [address] [id number] [place] [address]858 Nov, [facility] [address] [id number] [place] 013994636 Nov, [facility] [address] [id number] [place] 624754426 Nov, [facility] [address] [id number], [place] [address]- 2652 Oct, [facility] [id number] [place] [address]189094- 9362 Oct, [facility] [id number] [place] [address] 701423- 3932 Oct, [facility] [id number] [place] [address] 991726- 1007 Aug, [facility] [address] [id number], [place] 888173- 9044 Aug, [facility] [place] [facility] [address] [id number] [place] [address]- 1873 Aug, [facility] [address] [id number] [place] [address]- 1858 March, [facility] [place] [facility] [address] [id number] [place] [address]- 9380 Oct, [facility] [place] [facility] [address] [id number] [place] [address]- 2439 Oct, [facility] [place] [facility] [address] [id number] [place] [address]- 5310 Sep, [facility] [place] [facility] [address] [id number] [place] [address]- 7033 Sep, [facility] [place] [facility] [address] [id number] [place] [address]- 1072 Sep, [facility] [place] [facility] [address] [id number] [place] [address]- 7555 Aug, [facility] [place] [facility] [address] [id number] [place] [address]- 5985 Aug, [facility] [place] [facility] [address] [id number] [place] [address]- 4137 Jun, [facility] [place] [facility] [address] [id number] [place] [address]- 6647 May, [facility] [place] [facility] [address] [id number] [place] [address]- 1602 Jan, [facility] [place] [facility] [address] [id number] [place] [address]- 5172 Nov, [facility] [place] [facility] [address] [id number] [place] [address]- 2428 Oct, [facility] [place] [facility] [address] [id number] [place] [address]- 5524 Sep, [facility] [place] [facility] [address] [id number] [place] [address]- 7933 Sep, [facility] [address] [facility] [id number], [place] [address]- 0120 Sep, [facility] [address] [id number], [place] [address]- 6315 Sep, [facility] [address] [id number], [place] [address]- 8363 Sep, [facility] [address] [id number], [place]- 5823 Aug, [facility] [address] [id number], [place] [address]- 9394 Aug, [facility] [address] [id number], [place] [address]- 3455 Jul, [facility] [address] [id number], [place] [address]- 7433 Jun, IMMUNIZATIONS No Known Immunizations SOCIAL HISTORY Never Assessed REASON FOR VISIT [facility] [place] PLAN OF CARE VITAL SIGNS MEDICATIONS [...] 08/2016 Hospitalization History chest pain ED visit [facility], pt scheduled for heart cath on May Hospitalization History [facility] 2012 Hospitalization History Chest pain-[facility] 12/22/16
--- OUTSIDE RECORDS SUMMARY | 2019-03-21 19:08 | XMS REPORT ---
Author Author Migration, Doctor Organization [facility] Address Unknown Phone Unavailable Care Team Providers Care Gas Pipe Layer Name Role Phone Migration, Doctor Unavailable Unavailable PROBLEMS Type Condition ICD9-CM Code DFD02-HO Code Onset Dates Condition Status SNOMED Code Problem Serum creatinine raised R79.89 Active 432506657 Problem Episodic mood disorder F39 Active 52343378 Problem Generalized anxiety disorder F41.1 Active 69918386 Problem Lumbago with sciatica, left side M54.42 Active 190936951 Problem Dyslipidemia E78.5 Active 119795689 Problem Other chronic pain G89.29 Active 78303826 Problem Polyneuropathy associated with underlying disease G63 Active 699952023 Problem Syncope, unspecified syncope type R55 Active 577500076 Problem Recurrent major depressive disorder, in partial remission F33.41 Active 86650023 Problem Other seasonal allergic rhinitis J30.2 Active 110244570 Problem Hammertoe of left foot M20.42 Active 779722146 Problem Lumbago with sciatica, right side M54.41 Active 747791988 Problem salvage determiner current use of insulin Z79.4 Active 653362255 Problem Type 2 diabetes mellitus with diabetic polyneuropathy E11.42 Active 21278407 Problem Stage 2 chronic kidney disease N18.2 Active 018778771 Problem Vitamin D deficiency E55.9 Active 11406949 ALLERGIES No Information ENCOUNTERS Encounter Location Date Diagnosis [place] [address], [place] [address] Jan, assisted current use of insulin Z79.4 [place] [address], [place] [address] Jan, [place] [address] [place] [address] 75321- 9070 Jan, Type 2 diabetes mellitus with diabetic polyneuropathy E11.42 [place] [address], [place] [address] 70[address] Jan, [facility] [address], [place] [address] 4[address] Jan, Type 2 diabetes mellitus with diabetic polyneuropathy E11.42 [facility] [address] [place] [address] 38497- 7212 Dec, salvage determiner current use of insulin Z79.4 [facility] [address] [place] [id number] [place] [address] 67155- 3441 Dec, assisted current use of insulin Z79.4 [place] [address] [place] [address] 46843- 0643 Dec, [place] [address] [place] [id number] [place] [address] 47334- 4265 Nov, Hammertoe of left foot M20.42 ; Peroneal tendonitis of left lower extremity M76.72 ; Callus of foot L84 and Type 2 diabetes mellitus with diabetic polyneuropathy E11.42 [place] [address] [place] [address] 29706- 5794 Nov, [place] [address] [place] [id number] [place] [address] 84530- 6625 Nov, Encounter for immunization Z23 [facility] [address] [id number] [place] [address] 33322- 2762 Oct, [facility] [address] [place] [address] 72297- 7497 Oct, [facility] [address] [place] [address] 70628- 8155 Oct, Acute pancreatitis, unspecified complication status, unspecified pancreatitis type K85.90 [facility] [address] [place] [address] 99539- 2930 Sep, salvage determiner current use of insulin Z79.4 [facility] [address] [place] [address] 50840- 1534 Sep, [place] [address] [place] [address] 44426- 8132 Sep, Type 2 diabetes mellitus with diabetic polyneuropathy E11.42 ; Stage 2 chronic kidney disease N18.2 and Recurrent major depressive disorder, in partial remission F33.41 [place] [address] [place] [id number] [place] [address] 37881- 4086 Sep, assisted current use of insulin Z79.4 [place] [address] [place] [id number] [place] [address] 35131- 1753 Sep, Acute maxillary sinusitis, recurrence not specified J01.00 and Bronchiolitis J21.9 [place] [address] [address]- 6734 17 Jul, 2018 [place] [address] [place] [id number] [place] [address] 37911- 8028 Jun, Type 2 diabetes mellitus with diabetic polyneuropathy E11.42 ; Open wound T14.8XXA ; salvage determiner current use of insulin Z79.4 ; Stage 2 chronic kidney disease N18.2 and Episodic mood disorder F39 [place] [address] [place] [id number] [place] [address] 99210- 4740 May, [place] [address] [place] [id number] [place] [address] 32566- 8999 March, [place] [address] [id number] [place] [address] 07083- 4603 March, Type 2 diabetes mellitus with diabetic [...] H60.502 and Non-adherence to medical treatment Z91.[address] [id number] [place] [id number] Feb, Dental examination Z01.20 [facility] [address], [place] [address]- 8928 Feb, Labile hypertension R09.89 ; Syncope, unspecified syncope type R55 ; Chest pain, unspecified type R07.9 and Dyslipidemia E78.5 [place] [address] [place] [id number] [place] [address] 06238- 1742 Feb, [facility] [address] [place] [address] [id number] [place] [address] 38337- 8001 Jan, [facility] [place] [address] [place] [address] [id number] [place] [address] [id number] Jan, Dental examination Z01.20 [facility] [address] [place] [id number] [place] [address] 40865- 3530 Jan, Acute non-recurrent maxillary sinusitis J01.00 and Dyslipidemia E78.[address] [id number] [place] [address] [id number] Jan, Dental examination Z01.20 and Dental caries K02.[address] [id number] [place] [id number] Jan, [facility] [address] [place] [address] [id number] [place] [address] [id number] Dec, Dental examination Z01.20 [facility] WALK IN [facility] [address] [place] [address] 72649 -9959 Dec, Seasonal allergic rhinitis, unspecified trigger J30.2 [facility] [address] [place] [address] 62059- 7238 Nov, [place] [address] [place] [id number] [place] [address] 04149- 1774 Nov, Type 2 diabetes mellitus with diabetic polyneuropathy E11.42 ; Dyslipidemia E78.5 ; Lumbago with sciatica, right side M54.41 ; Lumbago with sciatica, left side M54.42 ; salvage determiner current use of insulin Z79.4 ; Polyneuropathy associated with underlying disease G63 ; Stage 2 chronic kidney disease N18.2 and Syncope, unspecified syncope type R55 [place] [address] 10908- 4488 Oct, Type 2 diabetes mellitus with diabetic polyneuropathy E11.42 ; Acute otitis externa of left ear, unspecified type H60.502 ; Overweight (BMI 25.0-29.9) E66.3 ; Dyslipidemia E78.5 and Polyneuropathy associated with underlying disease G63 [place] [address] 47688- 4902 Sep, [place] [address] 33454- 7623 Aug, Abnormal mammogram R92.8 [place] [address] 30096- 7752 Aug, Type 2 diabetes mellitus with diabetic polyneuropathy E11.42 [place] [address] 48663- 5379 Aug, [place] [address] 42518- 6048 Aug, Type 2 diabetes mellitus with diabetic polyneuropathy E11.42 ; Syncope, unspecified syncope type R55 ; Other chronic pain G89.29 and Encounter for immunization Z23 [place] [address] 14490- 3098 Aug, Type 2 diabetes mellitus with diabetic polyneuropathy E11.42 [place] [address] [place] [id number] [place] [address] 38517- 5347 Jul, Type 2 diabetes mellitus with diabetic polyneuropathy E11.42 and Serum creatinine raised R79.89 [place] [address] 09562- 1037 Jul, Type 2 diabetes mellitus with diabetic polyneuropathy E11.42 and Serum creatinine raised R79.89 [place] [address] 23814- 6499 May, [place] [address], [place] [address]- 9196 May, [place] [address] [place] [id number] [place] [address] 45857- 6248 May, Head injury, initial encounter S09.90XA ; Facial pain R51 ; Neck pain M54.2 and Fall, initial encounter W19.XXXA [place] [address] [place] [address] [place] [address] 61984- 3334 May, Type 2 diabetes mellitus with diabetic polyneuropathy E11.42 [place] [address] [place] [address] [place] [address] 95574- 7338 May, [place] [address] [place] [id number] [place] [address] 85218- 0833 May, Type 2 diabetes mellitus with diabetic polyneuropathy E11.42 [place] [address] [place] [id number] [place] [address] 40849- 6701 May, Dyslipidemia E78.5 ; salvage determiner current use of insulin Z79.4 ; Type 2 diabetes mellitus with diabetic polyneuropathy E11.42 ; Generalized anxiety disorder F41.1 and Other seasonal allergic rhinitis J30.2 [place] [address] [place] [address] 16863- 9121 Apr, Type 2 diabetes mellitus with diabetic polyneuropathy E11.42 [place] [address] [place] [address] 02027- 2603 March, [place] [address] [place] [address] 11813- 3495 March, Abnormal mammogram R92.8 [place] [address] [place] [id number] [place] [address] 06053- 7536 Feb, Abnormal mammogram R92.8 [place] [address] [place] [address] 09585- 8349 Feb, Diabetes type 2, uncontrolled E11.65 [place] [address], [place] [address]- 5366 06 Feb, 2017 Screening for breast cancer Z12.39 [place] [address], [place] [address]- 0916 27 Jan, 2017 Screening for breast cancer Z12.39 [place] [address] [place] [address] 84352- 0683 Jan, Type 2 diabetes mellitus with diabetic polyneuropathy E11.42 ; salvage determiner current use of insulin Z79.4 ; Other viral agents as the cause of diseases classified elsewhere B97.89 and Acute upper respiratory infection, unspecified J06.9 [place] [address] [place] [address] 39549- 6737 Jan, [place] [address] [place] [id number] [place] [address] 97472- 7570 17 Dec, 2016 Diabetes type 2, uncontrolled E11.65 ; Dyslipidemia E78.5 ; Generalized anxiety disorder F41.1 ; Depression, unspecified depression type F32.9 ; assisted current use of insulin Z79.4 and Polyneuropathy associated with underlying disease G63 [place] [address], [place] [address]- 8869 16 Dec, 2016 [place] [address], [place] [address]- 4090 14 Dec, 2016 [place] [address], [place] [address]- 8791 Dec, [place] [address], [place] [address]- 1868 Dec, [place] [address] [place] [id number] [place] [address] 23648- 1138 Oct, Well woman exam Z01.419 ; Screening for breast cancer Z12.39 ; assisted current use of insulin Z79.4 ; Type 2 diabetes mellitus without complications E11.9 and Encounter for immunization Z23 [place] [address] [place] [id number] [place] [address] 33374- 7499 Sep, [place] [address] [place] [id number] [place] [address] 64216- 7622 Sep, Diabetes type 2, uncontrolled E11.65 ; Dyslipidemia E78.5 and Depression, unspecified depression type F32.9 [place] [address] [place] [address] [place] [address] 49606- 0406 Aug, Diabetes type 2, uncontrolled E11.65 ; Encounter for immunization Z23 ; Nasal congestion R09.81 and Ear pressure, bilateral H93.8X3 [place] [address] 91133- 4422 Jul, Eustachian tube dysfunction, left H69.82 [place] [address] [place] [address] [place] [address] 98431- 7805 Jun, [place] [address] 61175- 5214 Jun, Hospital discharge follow-up Z09 ; Syncope, unspecified syncope type R55 and Acute suppurative otitis media of left ear without spontaneous rupture of tympanic membrane, recurrence not specified H66.002 [place] [address] [place] [id number] [place] [address] 39424- 9028 May, [place] [address] [place] [id number] [place] [address] 56325- 3995 May, [place] [address] [place] [id number] [place] [address] 40221- 0282 May, [place] [address] [place] [id number] [place] [address] 50649- 5025 May, Diabetes type 2, uncontrolled E11.65 ; [...] disturbance G47.9 and Generalized anxiety disorder F41.1 [facility] [address], [place] [address] 2546 March, [facility] [place] [id number] [place] [address] [id number] March, Syncope, unspecified syncope type R55 and Depression, unspecified depression type F32.9 [facility] [place] [address] [place] [id number] [place] [address] [id number] March, Orthostatic hypotension I95.1 [facility] [place] [address] [place] [address] [id number] [place] [address] [id number] March, [facility] [address], [place] [address]- 2546 March, [facility] [place] [id number] [place] [address] [id number] Feb, [facility] [place] [address] [id number] [place] [id number] Feb, Dental examination Z01.20 [facility] [place] [id number] [place] [address] [id number] Jan, [facility] [place] [address] [place] [id number] [place] [address] [id number] Jan, [facility] [place] [id number] [place] [address] [id number] Dec, Diabetes type 2, uncontrolled E11.65 [facility] [place] [id number] [place] [address] [id number] Nov, [facility] [address] [address] [id number] [place] [id number] Nov, Encounter for dental examination Z01.20 [facility] [address] [id number] [place] [id number] Nov, Dental examination Z01.20 [facility] [place] [id number], [place] [id number] Sep, Diabetes type 2, uncontrolled E11.[address] [facility] [place] [address] [id number] [place] [phone] Sep, Encounter for dental examination Z01.20 and Dental caries, unspecified K02.9 [facility] [place] [id number], [place] [id number] Sep, Bipolar 2 disorder F31.81 [facility] [place] [id number], [place] [id number] Aug, [facility] [place] [id number], [place] [id number] Aug, Follow up V67.9 [facility] [address] [address]- 3721 Jul, Bipolar disorder, unspecified 296.80 [facility] [place] [id number], [place] [id number] Jul, Thyroid enlarged 240.9 and Bipolar disorder, unspecified 296.80 [facility] [address] [id number] Jun, Diabetes mellitus type 2, uncontrolled 250.02 ; Bipolar disorder, unspecified 296.80 and Rash 782.1 [facility] [place] [id number], [place] [id number] Jun, [facility] [place] [id number], [place] [id number] May, Urinary tract infection 599.0 [facility] [place] [id number], [place] [id number] May, Urinary tract infection 599.0 [facility] [place] [id number], [place] [id number] May, [facility] [place] [id number], [place] [address] May, Diabetes mellitus type 2, uncontrolled 250.02 and Pica in adults 307.52 [facility] [place] [id number], [place] [id number] Apr, Follow up V67.9 and Diabetes mellitus type 2, uncontrolled 250.02 [facility] [place] [address] [id number] Apr, [facility] [address], [place] [address]- 2546 Apr, [facility] [place] [id number], [place] [address] Apr, Hyperlipidemia 272.4 [facility] [place] [address] [place] [id number], [place] [id number] March, Diabetes type 2, uncontrolled 250.02 [facility] [place] [id number] [place] [address] [id number] March, Diabetes mellitus type 2, uncontrolled 250.02 [facility] [place] [id number], [place] [id number] March, Diabetes type 2, uncontrolled 250.02 [facility] [place] [id number] [place] [address] [id number] March, [facility] [id number], [place] [id number] March, [facility] [id number], [place] [address] Feb, [facility] [place] [facility] [address], [place] [address]- 2546 Feb, [facility] [place] [facility] [address], [place] [address]- 2546 Feb, [facility] [place] [address] [place] [id number], [place] [id number] Jan, [facility] [place] [facility] [address], [place] [address]- 2546 Jan, [facility] [place] [facility] [address] [id number], [place] [address]- 2546 Jan, [facility] [place] [address] [place] [address] [id number], [place] [id number] Jan, [facility] [place] [facility] [address], [place] [address]- 2546 Jan, [facility] [place] [facility] [address], [place] [address]- 6796 Jan, [facility] [place] [address] [facility] [id number], [place] [id number] Jan, [facility] [place] [facility] [address] [facility] [id number], [place] [address]- 0953 Jan, [facility] [place] [facility] [address] [place] [id number], [place] [address]- 6335 Dec, [facility] [place] [address] [facility] [id number] [place] [id number] Dec, [facility] [place] [facility] [address] [id number], [place] [address]- 2751 Dec, [facility] [place] [address] [facility] [id number] [place] [id number] Dec, [facility] [place] [facility] [address] [place] [id number], [place] [address]- 8006 Dec, [facility] [place] [address] [place] [address] [id number], [place] [id number] Dec, [facility] [place] [facility] [address], [place] [address]- 6735 Dec, [facility] [place] [facility] [address], [place] [address]- 8926 Dec, [facility] [address] [place] [address] [id number], [place] [id number] Dec, [facility] [address] [place] [id number], [place] 211[address]2318 Dec, [facility] [place] [facility] [address], [place] [address]- 6065 Dec, [facility] [place] [facility] [address] [facility] [id number], [place] [address]- 2644 Nov, [facility] [place] [facility] [address] [facility] [id number], [place] [address]- 8989 Oct, [facility] [place] [facility] [address] [id number]- 7038 Oct, [facility] [place] [address] [facility] [id number], [place] [id number] Sep, [facility] [address] [id number], [place] [address]- 3446 Sep, [facility] [address] [id number], [place] [id number] Sep, [facility] [place] [facility] [address] [facility] [id number], [place] [address]- 1024 Sep, [facility] [address] [facility] [id number], [place] [id number] Aug, [facility] [place] [facility] [address] [facility] [id number], [place] [address]- 4943 Aug, [facility] [address] [facility] [id number], [place] [id number] Aug, [facility] [place] [facility] [address], [place] [address]- 3462 Aug, [facility] [place] [facility] [address]- 5273 Jul, [facility] [place] [facility] [address] [facility] [id number][place] [address]- 2201 Jul, [facility] [address] [facility] [id number], [place] [id number] Jul, [facility] [place] [facility] [id number], [place] [address]- 1191 Jul, [facility] [address] [facility] [id number], [place] [id number] Jun, [facility] [address] [facility] [id number], [place] [id number] Jun, [facility] [place] [facility] [address] [facility] [id number], [place] 696779- 9724 Jun, [facility] [place] [facility] [address] [facility] [id number], [place] [address]- 4197 Jun, [facility] [address] [facility] [id number], [place] 11376[address] Jun, [facility] [place] [facility] [address] [id number] [place] [address]- 0576 Jun, [facility] [address] [id number] [place] [id number] May, [facility] [place] [facility] [address] [id number] [place] [address]- 3496 May, [facility] [place] [facility] [address] [facility] [id number] [place] [address] Apr, [facility] [place] [facility] [address] [id number] [place] [address] Apr, [facility] [address] [facility] [id number] [place] [id number] Apr, [facility] [place] [facility] [address] [facility] [id number] [place] [address] Apr, [facility] [place] [facility] [address] [facility] [id number] [place] [address] Apr, [facility] [address] [facility] [id number] [id number] March, [facility] [place] [facility] [address] [facility] [id number] [place] [address] March, [facility] [place] [facility] [address] [facility] [id number], [place] [address] March, [facility] [address] [facility] [id number][place] [id number] March, [facility] [place] [facility] [address] [facility] [id number], [place] [address] March, [facility] [address] [facility] [id number] [place] [id number] March, [facility] [place] [facility] [address] [facility] [id number] [place] [address] March, [facility] [address] [facility] [id number] [place] [id number] Feb, [facility] [place] [facility] [address] [facility] [id number] [place] [address] Feb, [facility] [place] [facility] [address] [facility] [id number] [place] [address] Jan, [facility] [address] [id number] [place] [id number] Jan, [facility] [place] [facility] [address] [facility] [id number] [place] [address] Jan, [facility] [place] [facility] [address] [facility] [id number], [place] [address] Jan, [facility] [address] [id number] [place] [id number] Jan, [facility] [address] [id number] [place] [id number] Dec, [facility] [place] [facility] [address] [facility] [id number], [place] [address] Dec, [facility] [place] [facility] [address] [id number], [place] [address] Dec, [facility] [address] [id number] [place] [id number] Dec, [facility] [place] [facility] [address] [facility] [id number], [place] [address] Dec, [facility] [place] [address] [facility] [id number][place] [id number] Dec, [facility] [place] [facility] [id number], [place] [address] Dec, [facility] [place] [facility] [address] [facility] [id number][place] [address]- [address] Dec, [facility] [place] [address] [id number] [place] [id number] Dec, [facility] [place] [address] [facility] [id number] [place] [id number] Nov, [facility] [place] [facility] [address] [facility] [id number][place] [address]- [address] Nov, [facility] [place] [facility] [address] [id number], [place] [address]- [address] Nov, [facility] [place] [address] [id number] [place] [id number] Nov, [facility] [place] [address] [id number] [place] [id number] Oct, [facility] [place] [facility] [address] [id number][place] [address] Oct, [facility] [place] [address] [id number] [place] [id number] Oct, [facility] [place] [facility] [address] [id number] [place] [address]- 79[address] Oct, [facility] [place] [facility] [address] [facility] [id number], [place] [address]- 9674 Oct, [facility] [place] [facility] [address] [facility] [id number], [place] [address]- 99[address] Oct, [facility] [place] [address] [facility] [id number][place] [id number] Oct, [facility] [place] [facility] [address] [facility] [id number], [place] [address]- 6[address] Oct, [facility] [place] [facility] [address] [facility] [id number][place] [address]- 2188 Sep, [facility] [place] [facility] [address] [facility] [id number], [place] [address] 8720 Sep, [facility] [address] [id number], [place] [id number] Sep, [facility] [place] [facility] [address] [facility] [id number], [place] [address]- [address] Sep, [facility] [place] [facility] [address] [facility] [id number], [place] [address] Sep, [facility] [place] [address] [id number], [place] [address] Sep, [facility] [place] [address] [id number], [place] [address]954 Aug, [facility] [place] [facility] [address] [facility] [id number], [place] [address]- [address]017 Aug, [facility] [place] [facility] [address] [facility] [id number], [place] [address]- 1346 Aug, [facility] [address] [id number], [place] [address] Aug, [facility] [place] [address] [id number], [place] [id number] Aug, [facility] [place] [facility] [address] [facility] [id number] [place] [address] Aug, [facility] [place] [facility] [address] [facility] [id number] [place] [address]- 6357 Aug, [facility] [place] [facility] [address] [facility] [id number], [place] [address]- 7223 Aug, [facility] [place] [address] [facility] [id number][place] [id number] Jul, [facility] [place] [facility] [address] [facility] [id number][place] [address]- [address] Jul, [facility] [place] [facility] [address] [facility] [id number], [place] [address]- 2[address] Jul, [facility] [place] [address] [facility] [id number], [place] [address] Jul, [facility] [place] [address] [facility] [id number], [place] [id number] Jul, [facility] [place] [facility] [address] [facility] [id number][place] [address]- 6646 May, [facility] [place] [facility] [address] [facility] [id number], [place] [address]- 6315 Apr, [facility] [address] [facility] [id number][place] [id number] Apr, [facility] [place] [address] [facility] [id number], [place] [id number] Apr, [facility] [place] [facility] [address] [facility] [id number], [place] [address]- 2546 March, [facility] [place] [address] [id number] [place] [id number] March, [facility] [place] [address] [id number] [place] [address] March, [facility] [place] [address] [id number] [place] [address]39[address] March, [facility] [place] [address] [id number] [place] [id number] March, [facility] [place] [address] [id number] [place] [id number] March, [facility] [address] [facility] [id number], [place] [address]- [address] March, [facility] [address] [facility] [id number], [place] [address]- 2546 March, [facility] [address] [id number], [place] [address] Feb, [facility] [place] [address] [id number] [place] [id number] Feb, [facility] [place] [address] [id number] [place] [address]124968 Feb, [facility] [place] [address] [id number] [place] [address] Feb, [facility] [address]00565100[place], [place] [address]- [address] Feb, [facility] [place] [address] [id number] [id number] Feb, [facility] [place] [address] [id number] [place] [address]693 Jan, [facility] [address] [id number] [place] [id number] Jan, [facility] [address] [id number] [place] [id number] Dec, [facility] [place] [address] [id number] [id number] Dec, [facility] [address] [id number], [place] [address]- 6744 Dec, [facility] [address] [id number] [place] 1569[address]176 Dec, [facility] [place] [address] [id number] [place] [id number] Dec, [facility] [place] [address] [id number] [place] [address]391772 Dec, [facility] [address] [id number] [place] [address] Dec, [facility] [address] [id number], [place] [address]- 8221 Nov, [facility] [address] [id number] [place] [address]84656897 Nov, [facility] [place] [address] [id number] [place] [id number] Nov, [facility] [place] [address] [id number] [place] 620619416 Nov, [facility] [address] [id number] [place] [id number] Nov, [facility] [address] [facility] [id number], [place] [address]- 2437 Oct, [facility] [place] [address] [id number] [place] [id number] Oct, [facility] [place] [address] [id number] [place] [id number] Oct, [facility] [address] [id number], [place] [id number] Oct, [facility] [address] [facility] [id number], [place] [address]- 7576 Oct, [facility] [place] [facility] [address] [facility] [id number], [place] [address]- 3919 Oct, [facility] [place] [facility] [address] [facility] [id number], [place] 99007449- 5642 Oct, [facility] [place] [address] [id number], [place] [address]99693 Sep, [facility] [place] [facility] [address] [facility] [id number], [place] [address]- 1303 Sep, [facility] [place] [facility] [address] [facility] [id number], [place] [address]- 6152 Sep, [facility] [place] [address] [id number] [id number] Sep, [facility] [place] [address] [id number], [place] 927651167 Sep, [facility] [place] [address] [id number], [place] 45[address]44416 Sep, [facility] [place] [facility] [address] [facility] [id number], [place] 140735- 5232 Sep, [facility] [place] [facility] [address] [facility] [id number][place] [address]- 6310 Sep, [facility] [place] [facility] [address] [facility] [id number], [place]07275- 8037 Sep, [facility] [place] [address] [facility] [id number], [place] 240936807 Aug, [facility] [place] [facility] [address] [facility] [id number], [place] [address]- 4649 Aug, [facility] [place] [address] [facility] [id number], [place] [id number] Aug, [facility] [place] [facility] [address] [facility] [id number], [place] 862596- 5224 Aug, [facility] [place] [facility] [address] [facility] [id number], [place] [address]- 0426 Aug, [facility] [address] [id number], [place] [id number] Aug, [facility] [place] [address] [facility] [id number], [place] 547185427 Aug, [facility] [place] [facility] [address] [facility] [id number], [place] [address]- 4511 Aug, [facility] [place] [address] [id number] [place] 5159[address]556 Aug, [facility] [place] [address] [id number] [place] [id number] Jul, [facility] [place] [address] [id number] [place] 312253417 Jun, [facility] [place] [address] [id number] [place] 850180122 May, [facility] [place] [address] [id number] [place] 826663971 May, [facility] [place] [address] [id number] [place] 003848457 May, [facility] [place] [address] [id number] [place] 916557452 May, [facility] [place] [address] [id number] [place] 053579034 May, [facility] [place] [address] [id number] [place] 942432277 May, [facility] [place] [address] [id number] [place] 957833369 May, [facility] [place] [address] [id number] [place] 561524868 Apr, [facility] [place] [address] [id number] [place] 29[place]7973 Apr, [facility] [place] [address] [id number] [place] [address] Apr, [facility] [place] [address] [id number] [place] 898993409 Apr, [facility] [place] [address] [id number] [place] 083465950 Apr, [facility] [place] [address] [id number] [place] 950361097 Apr, [facility] [place] [address] [id number] [place] [address]0008 March, [facility] [place] [address] [id number] [place] 343121514 March, [facility] [place] [address] [id number] [place] [address]497 Feb, [facility] [place] [address] [id number] [place] [address] 16 Feb, 2012 [facility] [place] [address] [id number] [place] [address]70[address] Feb, [facility] [place] [address] [id number] [place] 809961748 Jan, [facility] [place] [address] [id number] [place] [address] Jan, [facility] [place] [address] [id number] [place] [id number] 15 Jan, 2012 [facility] [place] [address] [id number] [place] 999804499 Jan, [facility] [place] [address] [id number] [place] [address] Dec, [facility] [address]00565100[place], [place] [address]- 5307 Dec, [facility] [place] [address] [id number] [place] 990751328 Dec, [facility] [place] [address] [id number] [place] [id number] Nov, [facility] [place] [address] [id number] [place] 328634879 Nov, [facility] [place] [address] [id number] [place] 321486249 Nov, [facility] [address] [id number], [place] [address]- 4452 Oct, [facility] [id number] [place] [address] 14501362- 3401 Oct, [facility] [id number] [place] [address] 289359- 1890 Oct, [facility] [id number] [place] [address] 735608- 2053 Aug, [facility] [address] [id number], [place]18[place]- 3063 Aug, [facility] [place] [facility] [address] [id number] [place] [address]- 7391 Aug, [facility] [address] [id number] [place] [address]- 2726 March, [facility] [place] [facility] [address] [id number] [place] [address]- 4598 Oct, [facility] [place] [facility] [address] [id number] [place] [address]- 0694 Oct, [facility] [place] [facility] [address] [id number] [place] [address]- 3654 Sep, [facility] [place] [facility] [address] [id number] [place] [address]- 0327 Sep, [facility] [place] [facility] [address] [id number] [place] [address]- 7843 Sep, [facility] [place] [facility] [address] [id number] [place] [address]- 5316 Aug, [facility] [place] [facility] [address] [id number] [place] [address]- 0972 Aug, [facility] [place] [facility] [address] [id number] [place] [address]- 1714 Jun, [facility] [place] [facility] [address] [id number] [place] [address]- 5802 May, [facility] [place] [facility] [address] [id number] [place] [address]- 4572 Jan, [facility] [place] [facility] [address] [id number] [place] [address]- 8322 Nov, [facility] [place] [facility] [address] [id number] [place] [address]- 9914 Oct, [facility] [place] [facility] [address] [id number] [place] [address]- 8554 Sep, [facility] [place] [facility] [address] [id number] [place] [address]- 0212 Sep, [facility] [address] [facility] [id number], [place] [address]- 4066 Sep, [facility] [address] [id number], [place] [address]- 3139 Sep, [facility] [address] [id number], [place] [address]- 6859 Sep, [facility] [address] [id number]25[place]- 1469 Aug, [facility] [address] [id number], [place] [address]- 1590 Aug, [facility] [address] [id number], [place] [address]- 1479 Jul, [facility] [address] [id number], [place] [address]- 0200 Jun, IMMUNIZATIONS No Known Immunizations SOCIAL HISTORY Never Assessed REASON FOR VISIT [facility] [place] PLAN [...] 08/2016 Hospitalization History chest pain ED visit [facility], pt scheduled for heart cath on May Hospitalization History [facility] 2012 Hospitalization History Chest pain-[facility] 12/22/16
--- OUTSIDE RECORDS SUMMARY | 2019-03-21 19:09 | XMS REPORT ---
Author Author Migration, Doctor Organization [facility] Address Unknown Phone Unavailable Care Team Providers Care [facility] Hand Name Role Phone Migration, Doctor Unavailable Unavailable PROBLEMS Type Condition ICD9-CM Code ZXS87-NG Code Onset Dates Condition Status SNOMED Code Problem Serum creatinine raised R79.89 Active 887600153 Problem Episodic mood disorder F39 Active 58236160 Problem Generalized anxiety disorder F41.1 Active 40842118 Problem Lumbago with sciatica, left side M54.42 Active 441976139 Problem Dyslipidemia E78.5 Active 234438045 Problem Other chronic pain G89.29 Active 27343263 Problem Polyneuropathy associated with underlying disease G63 Active 949316614 Problem Syncope, unspecified syncope type R55 Active 713673276 Problem Recurrent major depressive disorder, in partial remission F33.41 Active 31710352 Problem Other seasonal allergic rhinitis J30.2 Active 638579469 Problem Hammertoe of left foot M20.42 Active 503227548 Problem Lumbago with sciatica, right side M54.41 Active 773420953 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 865147453 Problem Type 2 diabetes mellitus with diabetic polyneuropathy E11.42 Active 05236483 Problem Stage 2 chronic kidney disease N18.2 Active 308182331 Problem Vitamin D deficiency E55.9 Active 97077140 ALLERGIES No Information ENCOUNTERS Encounter Location Date Diagnosis [place] [address], [place] [address] Jan, [facility] current use of insulin Z79.4 [place] [address], [place] [address] Jan, [place] [address] [place] [address] 77096- 4688 Jan, Type 2 diabetes mellitus with diabetic polyneuropathy E11.42 [place] [address], [place] [address] Jan, [facility] [address], [place] [address] 0651 Jan, Type 2 diabetes mellitus with diabetic polyneuropathy E11.42 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 [address] [place] [id number] [place] [address] 39458- 5500 Dec, [facility] current use of insulin Z79.4 [place] [address] [place] [address] 25359- 9752 Dec, [place] [address] [place] [id number] [place] [address] 19603- 8064 Nov, Hammertoe of left foot M20.42 ; Peroneal tendonitis of left lower extremity M76.72 ; Callus of foot L84 and Type 2 diabetes mellitus with diabetic polyneuropathy E11.42 [place] [address] [place] [address] 03092- 6127 Nov, [place] [address] [place] [id number] [place] [address] 96239- 6368 Nov, Encounter for immunization Z23 [facility] [address] [id number] [place] [address] 43080- 8905 Oct, [facility] [address] [place] [address] 35109- 5045 Oct, [facility] [address] [place] [address] 94386- 1327 Oct, Acute pancreatitis, unspecified complication status, unspecified pancreatitis type K85.90 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 [address] [place] [address] 73789- 0214 Sep, [place] [address] [place] [address] 30671- 5067 Sep, Type 2 diabetes mellitus with diabetic polyneuropathy E11.42 ; Stage 2 chronic kidney disease N18.2 and Recurrent major depressive disorder, in partial remission F33.41 [place] [address] [place] [id number] [place] [address] 01718- 3140 Sep, [facility] current use of insulin Z79.4 [place] [address] [place] [id number] [place] [address] 42027- 6129 Sep, Acute maxillary sinusitis, recurrence not specified J01.00 and Bronchiolitis J21.9 [place] [address] [address]80- 1511 17 Jul, 2018 [place] [address] [place] [id number] [place] [address] 80015- 5789 Jun, Type 2 diabetes mellitus with diabetic polyneuropathy E11.42 ; Open wound T14.8XXA ; 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 [address], [place] [address] 9726 Feb, Labile hypertension R09.89 ; Syncope, unspecified syncope type R55 ; Chest pain, unspecified type R07.9 and Dyslipidemia E78.5 [place] [address] [place] [id number] [place] [address] 75373- 9527 Feb, [facility] [address] [id number] [place] [address] 52601- 0974 Jan, [facility] [address] [place] [address] [id number] [place] [id number] Jan, Dental examination Z01.20 [facility] [address] [place] [address] [id number] [place] [address] 79462- 7254 Jan, Acute non-recurrent maxillary sinusitis J01.00 and Dyslipidemia E78.[address] [id number] [place] [address] [id number] Jan, Dental examination Z01.20 and Dental caries K02.[address] [id number] [address] Jan, [facility] [address] [place] [address] [id number] [place] [address] [id number] Dec, Dental examination Z01.20 [facility] [address] [place] [address] 57993 -5765 Dec, Seasonal allergic rhinitis, unspecified trigger J30.2 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 ; Polyneuropathy associated with underlying disease G63 ; Stage 2 chronic kidney disease N18.2 and Syncope, unspecified syncope type R55 [place] [address] [address]16- 9592 Oct, Type 2 diabetes mellitus with diabetic polyneuropathy E11.42 ; Acute otitis externa of left ear, unspecified type H60.502 ; Overweight (BMI 25.0-29.9) E66.3 ; Dyslipidemia E78.5 and Polyneuropathy associated with underlying disease G63 [place] [address] 63423- 0573 Sep, [place] [address] 18111- 8743 Aug, Abnormal mammogram R92.8 [place] [address] 09472- 4775 Aug, Type 2 diabetes mellitus with diabetic polyneuropathy E11.42 [place] [address] 19941- 7531 Aug, [place] [address] 35988- 8219 Aug, Type 2 diabetes mellitus with diabetic polyneuropathy E11.42 ; Syncope, unspecified syncope type R55 ; Other chronic pain G89.29 and Encounter for immunization Z23 [place] [address] 48083- 4342 Aug, Type 2 diabetes mellitus with diabetic polyneuropathy E11.42 [place] [address] [place] [address] [place] [address] 49734- 3888 Jul, Type 2 diabetes mellitus with diabetic polyneuropathy E11.42 and Serum creatinine raised R79.89 [place] [address] 68684- 8097 Jul, Type 2 diabetes mellitus with diabetic polyneuropathy E11.42 and Serum creatinine raised R79.89 [place] [address] 43528- 9680 May, [place] [address], [place] [address]- 8796 May, [place] [address] [place] [address] [place] [address] 57080- 6900 May, Head injury, initial encounter S09.90XA ; Facial pain R51 ; Neck pain M54.2 and Fall, initial encounter W19.XXXA [place] [address] [place] [address] [place] [address] 60228- 4553 May, Type 2 diabetes mellitus with diabetic polyneuropathy E11.42 [place] [address] [place] [address] [place] [address] 56723- 9364 May, [place] [address] [place] [address] [place] [address] 64438- 7514 May, Type 2 diabetes mellitus with diabetic polyneuropathy E11.42 [place] [address] [place] [address] [place] [address] 01201- 4474 May, Dyslipidemia E78.5 ; 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 ; Type 2 diabetes mellitus with diabetic polyneuropathy E11.42 ; Generalized anxiety disorder F41.1 and Other seasonal allergic rhinitis J30.2 [place] [address] [place] [address] 27556- 4543 Apr, Type 2 diabetes mellitus with diabetic polyneuropathy E11.42 [place] [address] [place] [address] 87920- 0609 March, [place] [address] [place] [address] 63302- 9017 March, Abnormal mammogram R92.8 [place] [address] [place] [address] [place] [address] 45080- 5188 Feb, Abnormal mammogram R92.8 [place] [address] [place] [address] 82326- 3552 Feb, Diabetes type 2, uncontrolled E11.65 [place] [address], [place] [address]- 9482 06 Feb, 2017 Screening for breast cancer Z12.39 [place] [address], [place] [address]- 0650 27 Jan, 2017 Screening for breast cancer Z12.39 [place] [address] [place] [address] 74884- 6096 Jan, Type 2 diabetes mellitus with diabetic polyneuropathy E11.42 ; 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 ; Other viral agents as the cause of diseases classified elsewhere B97.89 and Acute upper respiratory infection, unspecified J06.9 [place] [address] [place] [address] 50944- 1949 Jan, [place] [address] [place] [address] [place] [address] 93088- 5622 17 Dec, 2016 Diabetes type 2, uncontrolled E11.65 ; Dyslipidemia E78.5 ; Generalized anxiety disorder F41.1 ; Depression, unspecified depression type F32.9 ; [facility] current use of insulin Z79.4 and Polyneuropathy associated with underlying disease G63 [place] [address], [place] [address]- 4007 16 Dec, 2016 [place] [address], [place] [address]- 8133 14 Dec, 2016 [place] [address], [place] [address]- 4768 Dec, [place] [address], [place] [address]- 4012 Dec, [place] [address] [place] [address] [place] [address] 09745- 7092 Oct, Well woman exam Z01.419 ; Screening for breast cancer Z12.39 ; [facility] current use of insulin Z79.4 ; Type 2 diabetes mellitus without complications E11.9 and Encounter for immunization Z23 [place] [address] [place] [address] [place] [address] 82766- 9115 Sep, [place] [address] [place] [address] [place] [address] 39582- 6776 Sep, Diabetes type 2, uncontrolled E11.65 ; Dyslipidemia E78.5 and Depression, unspecified depression type F32.9 [place] [address] [place] [address] [place] [address] 03595- 7211 Aug, Diabetes type 2, uncontrolled E11.65 ; Encounter for immunization Z23 ; Nasal congestion R09.81 and Ear pressure, bilateral H93.8X3 [place] [address] 73060- 3689 Jul, Eustachian tube dysfunction, left H69.82 [place] [address] [place] [address] [place] [address] 98416- 6704 Jun, [place] [address] 06538- 6191 Jun, Hospital discharge follow-up Z09 ; Syncope, unspecified syncope type R55 and Acute suppurative otitis media of left ear without spontaneous rupture of tympanic membrane, recurrence not specified H66.002 [place] [address] [place] [address] [place] [address] 38006- 2341 May, [place] [address] [place] [address] [place] [address] 64838- 2484 May, [place] [address] [place] [address] [place] [address] 21718- 4648 May, [place] [address] [place] [address] [place] [address] 03857- 5837 May, Diabetes type 2, uncontrolled E11.65 ; [...] disturbance G47.9 and Generalized anxiety disorder F41.1 [facility] [address], [place] [address] 2546 March, [facility] [place] [id number] [place] [address] [id number] March, Syncope, unspecified syncope type R55 and Depression, unspecified depression type F32.9 [facility] [place] [address] [place] [id number] [place] [address] [id number] March, Orthostatic hypotension I95.1 [facility] [place] [address] [place] [id number] [place] [address] [id number] March, [facility] [address], [place] [address]- 2546 March, [facility] [place] [id number] [place] [address] [id number] Feb, [facility] [address] [id number] [id number] Feb, Dental examination Z01.20 [facility] [place] [id number] [place] [address] [id number] Jan, [facility] [place] [address] [place] [id number] [place] [address] [id number] Jan, [facility] [id number] [place] [address] [id number] Dec, Diabetes type 2, uncontrolled E11.65 [facility] [place] [id number] [place] [address] [id number] Nov, [facility] [place] [address] [id number][place] [id number] Nov, Encounter for dental examination Z01.20 [facility] [address] [id number] [id number] Nov, Dental examination Z01.20 [facility] [place] [id number], [place] [address] Sep, Diabetes type 2, uncontrolled E11.[address] [facility] [address] [id number] [place] [id number] Sep, Encounter for dental examination Z01.20 and Dental caries, unspecified K02.9 [facility] [id number], [place] [address] Sep, Bipolar 2 disorder F31.81 [facility] [id number], [place] [id number] Aug, [facility] [id number], [place] [id number] Aug, Follow up V67.9 [facility] [address] [address]- 7162 Jul, Bipolar disorder, unspecified 296.80 [facility] [place] [id number], [place] [id number] Jul, Thyroid enlarged 240.9 and Bipolar disorder, unspecified 296.80 [facility] [address] [id number] Jun, Diabetes mellitus type 2, uncontrolled 250.02 ; Bipolar disorder, unspecified 296.80 and Rash 782.1 [facility] [place] [id number], [place] [id number] Jun, [facility] [place] [id number], [place] [address] May, Urinary tract infection 599.0 [facility] [place] [id number], [place] [id number] May, Urinary tract infection 599.0 [facility] [place] [id number], [place] [id number] May, [facility] [place] [id number], [place] [address] May, Diabetes mellitus type 2, uncontrolled 250.02 and Pica in adults 307.52 [facility] [place] [id number][place] [id number] Apr, Follow up V67.9 and Diabetes mellitus type 2, uncontrolled 250.02 [facility] [place] [address] [id number] Apr, [facility] [address], [place] [address]- 2546 Apr, [facility] [id number], [place] [address] Apr, Hyperlipidemia 272.4 [facility] [address] [place] [id number] [id number] March, Diabetes type 2, uncontrolled 250.02 [facility] [id number] [place] [address] [id number] March, Diabetes mellitus type 2, uncontrolled 250.02 [facility] [id number], [place] [id number] March, Diabetes type 2, uncontrolled 250.02 [facility] [id number] [place] [address] [id number] March, [facility] [id number], [place] [address] March, [facility] [id number], [place] [address] Feb, [facility] [place] [facility] [address], [place] [address]- 2546 Feb, [facility] [place] [facility] [address], [place] [address]- 2546 Feb, [facility] [address] [place] [id number] [id number] Jan, [facility] [place] [facility] [address], [place] [address]- 2546 Jan, [facility] [place] [facility] [address] [place] [id number], [place] [address]- 2546 Jan, [facility] [address] [place] [id number], [place] [id number] Jan, [facility] [place] [facility] [address], [place] [address]- 2546 Jan, [facility] [place] [facility] [address], [place] [address]- 3146 Jan, [facility] [address] [facility] [id number][place] [id number] Jan, [facility] [place] [facility] [address] [facility] [id number], [place] [address]- 8172 Jan, [facility] [place] [facility] [address] [place] [id number], [place] [address]- 2167 Dec, [facility] [address] [facility] [id number] [place] [id number] Dec, [facility] [place] [facility] [address] [place] [id number], [place] [address]- 8978 Dec, [facility] [address] [facility] [id number] [place] [id number] Dec, [facility] [place] [facility] [address] [place] [id number] [address]- 2016 Dec, [facility] [address] [place] [id number], [place] [address] Dec, [facility] [place] [facility] [address], [place] [address]- 8681 Dec, [facility] [place] [facility] [address], [place] [address]- 8588 Dec, [facility] [address] [place] [id number], [place] [id number] Dec, [facility] [address] [place] [id number], [place] [id number] Dec, [facility] [place] [facility] [address], [place] [address]- 2194 Dec, [facility] [place] [facility] [address] [facility] [id number], [place] [address]- 1995 Nov, [facility] [place] [facility] [address] [facility] [id number], [place] [address]- 8770 Oct, [facility] [place] [facility] [address] [address] [id number]- 6790 Oct, [facility] [address] [facility] [id number][place] [address] Sep, [facility] [address] [id number], [place] [address]- 3166 Sep, [facility] [address] [id number], [place] [id number] Sep, [facility] [place] [facility] [address] [facility] [id number], [place] [address]- 2371 Sep, [facility] [address] [facility] [id number][place] [id number] Aug, [facility] [place] [facility] [address] [facility] [id number], [place] [address]- 4172 Aug, [facility] [address] [facility] [id number], [place] [id number] Aug, [facility] [place] [facility] [address], [place] [address]- 0284 Aug, [facility] [place] [facility] [address]- 0087 Jul, [facility] [place] [facility] [address] [facility] [id number], [place] [address]- 7500 Jul, [facility] [address] [facility] [id number], [place] [id number] Jul, [facility] [place] [facility] [address] [id number], [place] [address]- 0028 Jul, [facility] [address] [facility] [id number], [place] [id number] Jun, [facility] [address] [facility] [id number][place] [id number] Jun, [facility] [place] [facility] [address] [facility] [id number], [place] 191733- 2756 Jun, [facility] [place] [facility] [address] [facility] [id number][place] [address]- 8884 Jun, [facility] [address] [facility] [id number][place] [id number] Jun, [facility] [place] [facility] [address] [id number] [place] [address]- 7546 Jun, [facility] [address] [id number] [place] [id number] May, [facility] [place] [facility] [address] [id number] [place] [address]- 3626 May, [facility] [place] [facility] [address] [facility] [id number] [place] [address] Apr, [facility] [place] [facility] [address] [id number] [place] [address] Apr, [facility] [address] [facility] [id number] [place] [id number] Apr, [facility] [place] [facility] [address] [facility] [id number] [place] [address] Apr, [facility] [place] [facility] [address] [facility] [id number] [place] [address] Apr, [facility] [address] [facility] [id number] [id number] March, [facility] [place] [facility] [address] [facility] [id number] [place] [address] March, [facility] [place] [facility] [address] [facility] [id number], [place] [address] March, [facility] [address] [facility] [id number] [id number] March, [facility] [place] [facility] [address] [facility] [id number], [place] [address] March, [facility] [address] [facility] [id number] [place] [id number] March, [facility] [place] [facility] [address] [facility] [id number] [place] [address] March, [facility] [address] [facility] [id number] [place] [id number] Feb, [facility] [place] [facility] [address] [facility] [id number] [place] [address] Feb, [facility] [place] [facility] [address] [facility] [id number] [place] [address] Jan, [facility] [address] [id number] [place] [id number] Jan, [facility] [place] [facility] [address] [facility] [id number] [place] [address] Jan, [facility] [place] [facility] [address] [facility] [id number], [place] [address] Jan, [facility] [place] [address] [id number] [place] [id number] Jan, [facility] [place] [address] [id number] [place] [id number] Dec, [facility] [place] [facility] [address] [facility] [id number], [place] [address] Dec, [facility] [place] [facility] [address] [id number], [place] [address] Dec, [facility] [place] [address] [id number] [place] [id number] Dec, [facility] [place] [facility] [address] [facility] [id number], [place] [address] 2546 Dec, [facility] [place] [address] [facility] [id number][place] [id number] Dec, [facility] [place] [facility] [address], [place] [address] Dec, [facility] [place] [facility] [address] [facility] [id number], [place] [address] Dec, [facility] [place] [address] [id number] [place] [id number] Dec, [facility] [place] [address] [facility] [id number] [place] [id number] Nov, [facility] [place] [facility] [address] [facility] [id number], [place] [address] Nov, [facility] [place] [facility] [address] [id number], [place] [address] Nov, [facility] [place] [address] [id number] [place] [id number] Nov, [facility] [place] [address] [id number] [place] [id number] Oct, [facility] [place] [facility] [address] [id number], [place] [address] Oct, [facility] [place] [address] [id number] [place] [id number] Oct, [facility] [place] [facility] [address] [id number] [place] [address]- 6043 Oct, [facility] [place] [facility] [address] [facility] [id number], [place] [address]- 5243 Oct, [facility] [place] [facility] [address] [facility] [id number], [place] [address] Oct, [facility] [place] [address] [facility] [id number][place] [id number] Oct, [facility] [place] [facility] [address] [facility] [id number], [place] [address]- 3835 Oct, [facility] [place] [facility] [address] [facility] [id number], [place] [address]- 5394 Sep, [facility] [place] [facility] [address] [facility] [id number], [place] [address]- [address]64 Sep, [facility] [address] [id number][place] [id number] Sep, [facility] [place] [facility] [address] [facility] [id number], [place] [address]- 8766 Sep, [facility] [place] [facility] [address] [facility] [id number], [place] [address] 2746 Sep, [facility] [place] [address] [id number][place] [id number] Sep, [facility] [place] [address] [id number], [place] [id number] Aug, [facility] [place] [facility] [address] [facility] [id number], [place] [address] 7[address] Aug, [facility] [place] [facility] [address] [facility] [id number], [place] [address]- 8776 Aug, [facility] [place] [address] [id number][place] [id number] Aug, [facility] [place] [address] [id number][place] [id number] Aug, [facility] [place] [facility] [address] [facility] [id number] [place] [address] 6068 Aug, [facility] [place] [facility] [address] [facility] [id number] [place] [address]- 1239 Aug, [facility] [place] [facility] [address] [facility] [id number], [place] [address] 1859 Aug, [facility] [place] [address] [facility] [id number], [place] [id number] Jul, [facility] [place] [facility] [address] [facility] [id number], [place] [address]- 4060 Jul, [facility] [place] [facility] [address] [facility] [id number], [place] [address] 5894 Jul, [facility] [place] [address] [facility] [id number], [place] [id number] Jul, [facility] [place] [address] [facility] [id number][place] [id number] Jul, [facility] [place] [facility] [address] [facility] [id number], [place] [address]- 4346 May, [facility] [place] [facility] [address] [facility] [id number][place] [address]- 9126 Apr, [facility] [place] [address] [facility] [id number], [place] [id number] Apr, [facility] [place] [address] [facility] [id number], [place] [address]233 Apr, [facility] [place] [facility] [address] [facility] [id number][place] [address]- [address] March, [facility] [place] [address] [id number] [place] [id number] March, [facility] [place] [address] [id number] [place] [id number] March, [facility] [place] [address] [id number] [place] [id number] March, [facility] [place] [address] [id number] [id number] March, [facility] [place] [address] [id number] [place] [id number] March, [facility] [address] [facility] [id number], [place] [address]- 2546 March, [facility] [address] [facility] [id number], [place] [address]- 2546 March, [facility] [address] [id number], [place] [address] 25[address] Feb, [facility] [place] [address] [id number] [place] [id number] Feb, [facility] [place] [address] [id number] [id number] Feb, [facility] [place] [address] [id number] [place] [id number] Feb, [facility] [address]65[address], [place] [address] Feb, [facility] [place] [address] [id number] [place] [id number] Feb, [facility] [place] [address] [id number] [place] [address] Jan, [facility] [place] [address] [id number] [id number] Jan, [facility] [place] [address] [id number] [place] [id number] Dec, [facility] [place] [address] [id number] [place] [id number] Dec, [facility] [address] [id number], [place] [address] Dec, [facility] [place] [address] [id number] [place] [id number] Dec, [facility] [place] [address] [id number] [place] [id number] Dec, [facility] [address] [id number] [place] [id number] Dec, [facility] [place] [address] [id number] [place] [id number] Dec, [facility] [address] [id number], [place] [address] Nov, [facility] [place] [address] [id number] [place] [id number] Nov, [facility] [place] [address] [id number] [place] [id number] Nov, [facility] [place] [address] [id number] [place] [id number] Nov, [facility] [place] [address] [id number] [place] [id number] Nov, [facility] [address] [facility] [id number], [place] [address]- 4050 Oct, [facility] [place] [address] [id number] [place] [address]45[place] Oct, [facility] [place] [address] [id number] [place] [id number] Oct, [facility] [place] [address] [id number], [place] [id number] Oct, [facility] [address] [facility] [id number], [place] [address]- 9282 Oct, [facility] [place] [facility] [address] [facility] [id number], [place] [address]- 4683 Oct, [facility] [place] [facility] [address] [facility] [id number], [place] 05331818- 9439 Oct, [facility] [place] [address] [id number][place] [id number] Sep, [facility] [place] [facility] [address] [facility] [id number], [place] [address]- 8048 Sep, [facility] [place] [facility] [address] [facility] [id number], [place] [address]- [address] Sep, [facility] [place] [address] [id number] [id number] Sep, [facility] [place] [address] [id number][place] 132476973 Sep, [facility] [place] [address] [id number], [place] [id number] Sep, [facility] [place] [facility] [address] [facility] [id number]2570- 7851 Sep, [facility] [place] [facility] [address] [facility] [id number], [place] [address]- 5318 Sep, [facility] [place] [facility] [address] [facility] [id number], [place] 953798- 0521 Sep, [facility] [place] [address] [facility] [id number], [place] [id number] Aug, [facility] [place] [facility] [address] [facility] [id number], [place] [address]- 6337 Aug, [facility] [place] [address] [facility] [id number], [place] [id number] Aug, [facility] [place] [facility] [address] [facility] [id number], [place] 606587- 1530 Aug, [facility] [place] [facility] [address] [facility] [id number], [place] [address]- 8638 Aug, [facility] [place] [address] [id number], [place] [id number] Aug, [facility] [place] [address] [facility] [id number], [place] 916682056 Aug, [facility] [place] [facility] [address] [facility] [id number], [place] [address]- 9020 Aug, [facility] [place] [address] [id number] [id number] Aug, [facility] [place] [address] [id number] [place] [id number] Jul, [facility] [place] [address] [id number] [place] [id number] Jun, [facility] [place] [address] [id number] [place] [id number] May, [facility] [place] [address] [id number] [place] [id number] May, [facility] [place] [address] [id number] [place] [id number] May, [facility] [place] [address] [id number] [place] 836191736 May, [facility] [place] [address] [id number] [place] [id number] May, [facility] [place] [address] [id number] [place] [id number] May, [facility] [place] [address] [id number] [place] [id number] May, [facility] [place] [address] [id number] [place] [id number] Apr, [facility] [place] [address] [id number] [place] [id number] Apr, [facility] [place] [address] [id number] [place] [id number] Apr, [facility] [place] [address] [id number] [place] 832251484 Apr, [facility] [place] [address] [id number] [place] [id number] Apr, [facility] [place] [address] [id number] [place] [id number] Apr, [facility] [place] [address] [id number] [place] [id number] March, [facility] [place] [address] [id number] [place] [id number] March, [facility] [place] [address] [id number] [place] [id number] Feb, [facility] [place] [address] [id number] [place] [id number] 16 Feb, 2012 [facility] [place] [address] [id number] [place] [id number] Feb, [facility] [place] [address] [id number] [place] [id number] Jan, [facility] [place] [address] [id number] [place] [id number] Jan, [facility] [place] [address] [id number] [place] [id number] 15 Jan, 2012 [facility] [place] [address] [id number] [place] [id number] Jan, [facility] [place] [address] [id number] [place] [id number] Dec, [facility] [address]00565[place], [place] [address]- 5051 Dec, [facility] [place] [address] [id number] [id number] Dec, [facility] [place] [address] [id number] [place] [id number] Nov, [facility] [place] [address] [id number] [place] [id number] Nov, [facility] [place] [address] [id number] [place] [id number] Nov, [facility] [address] [id number], [place] [address]- 6285 Oct, [facility] [id number] [place] [address] 84031402- 8820 Oct, [facility] [id number] [place] [address] 465433- 3558 Oct, [facility] [id number] [place] [address] 630771- 6427 Aug, [facility] [address] [id number], [place]- 6943 Aug, [facility] [place] [facility] [address] [id number] [place] [address]- 3462 Aug, [facility] [address] [id number] [place] [address]- 3523 March, [facility] [place] [facility] [address] [id number] [place] [address]- 1126 Oct, [facility] [place] [facility] [address] [id number] [place] [address]- 6670 Oct, [facility] [place] [facility] [address] [id number] [place] [address]- 4652 Sep, [facility] [place] [facility] [address] [id number] [place] [address]- 1350 Sep, [facility] [place] [facility] [address] [id number] [place] [address]- 1049 Sep, [facility] [place] [facility] [address] [id number] [place] [address]- 3798 Aug, [facility] [place] [facility] [address] [id number] [place] [address]- 0872 Aug, [facility] [place] [facility] [address] [id number] [place] [address]- 4898 Jun, [facility] [place] [facility] [address] [id number] [place] [address]- 0699 May, [facility] [place] [facility] [address] [id number] [place] [address]- 7578 Jan, [facility] [place] [facility] [address] [id number] [place] [address]- 2725 Nov, [facility] [place] [facility] [address] [id number] [place] [address]- 6574 Oct, [facility] [place] [facility] [address] [id number] [place] [address]- 3955 Sep, [facility] [place] [facility] [address] [id number] [place] [address]- [address] Sep, [facility] [address] [id number] [address] Sep, [facility] [address]00565100[place] [address] Sep, [facility] [address]00565100[place] [address] Sep, [facility] [address]00565100[place]- 7629 Aug, [facility] [address]00565100[place] [address]32 Aug, [facility] [address]00565100[place], [place] [address] Jul, [facility] [address]00565100[place], [place] [address]- 3634 Jun, IMMUNIZATIONS No Known Immunizations SOCIAL HISTORY Never Assessed REASON FOR VISIT [facility] PLAN OF CARE VITAL SIGNS MEDICATIONS Medication Instructions Dosage Frequency Start Date End Date Duration Status Mucinex DM 60-1,200 mg 1 Tablet by Oral route 2 times per day Oct, Active Doxycycline Hyclate 100 mg take 1 tablet (100 mg) by oral route 2 times per day for 10 days March, Active Lisinopril 5 mg 1 tablet by Oral route 1 time per day Dec, Active Albuterol Sulfate 90 mcg/actuation 2 puffs by Inhalation route every 4-6 hours as needed PRN cough or wheezing Dec, Active Amoxicillin 500 mg SI cap(s) orally 3 times a day for 7 day(s) Nov, Active Bactroban 2 % 1 pranay by Topical route 2 times per day for 14 day(s) Sep, Active Levemir 100 unit/mL inject by Subcutaneous route 2 times per day 50U in am and 73U at bedtime Dec, Active Tamiflu 75 mg 1 capsule by Oral route 2 times per day for 5 day(s) Treatment Dosing Oct, Active Cymbalta 60 mg take 1 capsule (60 mg) by oral route once daily Sep, Active Zofran ODT 4 mg take 1 tablets by Oral route every 8 hours PRN Nausea or Vomiting Sep, Active Augmentin 875-125 mg 1 tablet by Oral route 2 times per day for 10 day(s) March, Active Nasonex 50 mcg/actuation 2 sprays by Nasal route 1 time per day in each nostril Dec, Active Simvastatin 40 mg take 1 tablet (40 mg) by oral route once daily in the evening Jan, Active Gabapentin 400 mg take 1 capsule by Oral route 1 time per day at bedtime Dec, Active Ofloxacin 0.3 % 3 drop by Otic route 2 times per day for 10 day(s) March, Active Betamethasone Valerate 0.1 % 1 pranay by Topical route 2 times per day Sep, Active metformin 1,000 mg Take 1 tablet by Oral route 2 times per day Jan, Active Cortisporin Otic 1%-0.35%-37374 units/mL SI gtt in the left ear 4 times a day for 7 day(s) Nov, Active PredniSONE 20 mg 2 tablet by Oral route 1 time per day for 5 day(s) Nov, Active RESULTS No Results PROCEDURES No Known [...]
--- NOTE | 2019-03-21 19:26 | ED Fall/Injury ---
General Chief Complaint: Trauma-Non Activation Stated Complaint: FALL Nursing Triage Note: pt arrived pov with with c/o occipital head pain and posterior neck and back pain after she fell in the shower last night striking her head on the tub. Pt is unaware if she lost consciousness or not. Pt A&O x4 but having increased pain and trouble walking. Source: patient Exam Limitations: no limitations History of Present Illness Date Seen by Provider: March 21, 2019 Time Seen by Provider: 19:15 Initial Comments This 59-year-old woman presents to the emergency room with complaints of pain related to a fall in the bathtub last night. She presents by private vehicle and is ambulatory with a cane. She reports slipping in the bathtub and striking her head on the edge. She now has pain in the posterior head, neck, throughout the spine, and mild generalized achiness. There are no focal neurologic deficits. She states her soreness has increased throughout the day today. She is uncertain if there was any loss of consciousness after the fall. She had some dizziness yesterday after falling but that has improved today. The mechanism of fall was mechanical in nature. Patient states she has generally felt weaker throughout the day. Allergies and Home Medications Allergies Coded Allergies: codeine (Verified Allergy, Unknown, HEART PALPATATION, 02/04/15) Home Medications Albuterol 17 Gm Aerosol, 2 PUFF IH Q4H PRN for SHORTNESS OF BREATH, (Reported) Aspirin 81 Mg Tabec, 81 MG PO Q48H, (Reported) Atorvastatin Calcium 40 Mg Tablet, 40 MG PO HS, (Reported) Cetirizine HCl 10 Mg Tablet, 10 MG PO HS, (Reported) Duloxetine HCl 60 Mg Capsule.dr, 60 MG PO HS, (Reported) Fluticasone Propionate 16 Gm [place].susp, 1 SPRAY NA DAILY PRN for ALLERGIES, ( Reported) Hydrocodone Bit/Acetaminophen 1 Tab Tab, 1-2 EACH PO Q6H PRN for PAIN-MODERATE Prescribed by: GEOVANI LUTZ on 10/19/18 7907 Insulin Determir 1,000 Units/10 Ml Soln, 65 UNITS SQ DAILY, (Reported) TAKE IN AM Insulin Determir 1,000 Units/10 Ml Soln, 70 UNITS SQ HS, (Reported) TAKE AT BEDTIME Liraglutide 0.6 Mg/0.1 Ml Pen.injctr, 1.8 MG SQ HS, (Reported) Methocarbamol 750 Mg Tablet, 750 MG PO Q4H PRN for PAIN-MODERATE TO SEVERE Prescribed by: ELVA ÁLVAREZ on 11/20/18 1655 Multivitamin 1 Each Tab.chew, 1 EACH PO HS, (Reported) Ondansetron HCl 4 Mg Tab, 4 MG PO Q4H PRN for NAUSEA/VOMITING-1ST LINE Prescribed by: GEOVANI LUTZ on 10/19/18 1357 Pantoprazole Sodium 40 Mg Tablet.dr, 40 MG PO DAILY Prescribed by: LINDA MANSFIELD on 01/26/17 1053 Promethazine HCl 25 Mg Tablet, 25 MG PO Q6H PRN for NAUSEA/VOMITING Prescribed by: ELVA ÁLVAREZ on 11/01/18 1948 Sucralfate 1 Gm Tablet, 1 GM PO ACHS Prescribed by: LINDA MANSFIELD on 01/26/17 1053 [Vit B-12 Gummies] , 2 TAB PO HS, (Reported) [Vitamin C] , 1 TAB PO HS, (Reported) Patient Home Medication List Home Medication List Reviewed: Yes Review of Systems Review of Systems Constitutional: see HPI Eyes: No Symptoms Reported Ears, Nose, Mouth, Throat: no symptoms reported Respiratory: no symptoms reported Cardiovascular: no symptoms reported Gastrointestinal: no symptoms reported Genitourinary: no symptoms reported : No Musculoskeletal: see HPI Skin: no symptoms reported Psychiatric/Neurological: See HPI Past Gijnudd-Ttnkmp-Sngrxl Hx Past Med/Social Hx: Reviewed and Corrections made Patient Social History Type Used: Cigarettes Former Smoker, Quit: Aug 12, 1992 2nd Hand Smoke Exposure: No Recent Foreign Travel: No Contact w/Someone Who Travel: No Recent Infectious Disease Expo: No Recent Hopitalizations: No Immunizations Up To Date Tetanus Booster (TDap): Less than 5yrs Date of Pneumonia Vaccine: Nov 21, 2016 Date of Influenza Vaccine: Aug 30, 2016 Seasonal Allergies Seasonal Allergies: No Past Medical History Surgeries: Yes (back x2, ) Abdominal, Appendectomy, Ear Surgery, Gallbladder, Hysterectomy, Orthopedic Respiratory: No Currently Using CPAP: No Currently Using BIPAP: No Cardiac: Yes High Cholesterol, Syncope Neurological: Yes Neuropathy 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 Disorders: Yes Female 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 Disorders: 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, Ovarian Cyst PAVER History: Menopausal Sexually Transmitted Disease: No HIV/AIDS: No Genitourinary: No Renal Failure Gastrointestinal: No Gastroesophageal Reflux Musculoskeletal: Yes Arthritis, Chronic Back Pain Endocrine: Yes Diabetes, Insulin dep Cataract Cancer: No Psychosocial: Yes Anxiety, Bipolar, Depression Integumentary: Yes (SORES ON ARMS) Blood Disorders: No Family Medical History Reviewed Nursing Family Hx FH: diabetes mellitus FH: heart disease No Pertinent Family Hx, Heart Disease Physical Exam Vital Signs Vital Signs - First Documented 03/21/19 03/21/19 18:52 21:07 Temp 98.0 Pulse 78 Resp 20 B/P (MAP) 162/86 (111) Pulse Ox 100 O2 Delivery Room Air Capillary Refill : Less Than 3 Seconds Height, Weight, BMI Height: 5'7.00" Weight: 210lbs. 0oz. 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, no motor/sensory deficits, alert, normal mood/affect, oriented x 3, other (generally weak but strength equal in the bilateral extremities) Skin: normal color, warm/dry Severino Coma Score Best Eye Response: (4) Open Spontaneously Best Verbal Response: (5) Oriented Best Motor Response: (6) Obeys Commands Severino Total: 15 Progress/Results/Core Measures Results/Orders Lab Results Laboratory Tests Test 03/21/19 19:34 03/21/19 20:20 03/21/19 20:50 Range/Units White Blood Count 8.3 4.3-11.0 10^3/uL Red Blood Count 4.21 L 4.35-5.85 10^6/uL Hemoglobin 13.4 11.5-16.0 G/DL Hematocrit 39 35-52 % Mean Corpuscular Volume 94 80-99 FL Mean Corpuscular Hemoglobin 32 25-34 PG Mean Corpuscular Hemoglobin Concent 34 32-36 G/DL Red Cell Distribution Width 12.4 10.0-14.5 % Platelet Count 183 130-400 10^3/uL Mean Platelet Volume 10.4 7.4-10.4 FL Neutrophils (%) (Auto) 66 42-75 % Lymphocytes (%) (Auto) 21 12-44 % Monocytes (%) (Auto) 8 0-12 % Eosinophils (%) (Auto) 5 0-10 % Basophils (%) (Auto) 1 0-10 % Neutrophils # (Auto) 5.4 1.8-7.8 X 10^3 Lymphocytes # (Auto) 1.7 1.0-4.0 X 10^3 Monocytes # (Auto) 0.6 0.0-1.0 X 10^3 Eosinophils # (Auto) 0.4 H 0.0-0.3 10^3/uL Basophils # (Auto) 0.1 0.0-0.1 10^3/uL Sodium Level 132 L 135-145 MMOL/L Potassium Level 4.2 3.6-5.0 MMOL/L Chloride Level 98 98-107 MMOL/L Carbon Dioxide Level 22 21-32 MMOL/L Anion Gap 12 5-14 MMOL/L Blood Urea Nitrogen 10 7-18 MG/DL Creatinine 1.38 H 0.60-1.30 MG/DL Estimat Glomerular Filtration Rate 39 BUN/Creatinine Ratio 7 Glucose Level 653 *H 70-105 MG/DL Calcium Level 9.5 8.5-10.1 MG/DL Corrected Calcium 9.5 8.5-10.1 MG/DL Magnesium Level 1.7 L 1.8-2.4 MG/DL Total Bilirubin 0.5 0.1-1.0 MG/DL Aspartate Amino Transf (AST/SGOT) 43 H 5-34 U/L Alanine Aminotransferase (ALT/SGPT) 51 0-55 U/L Alkaline Phosphatase 171 H 40-136 U/L Total Protein 8.1 6.4-8.2 GM/DL Albumin 4.0 3.2-4.5 GM/DL Urine Color YELLOW Urine Clarity CLEAR Urine pH 6.5 5-9 Urine Specific [place] 1.010 L 1.016-1.022 Urine Protein NEGATIVE NEGATIVE Urine Glucose (UA) 4+ H NEGATIVE Urine Ketones NEGATIVE NEGATIVE Urine Nitrite NEGATIVE NEGATIVE Urine Bilirubin NEGATIVE NEGATIVE Urine Urobilinogen NORMAL NORMAL MG/DL Urine Leukocyte Esterase NEGATIVE NEGATIVE Urine RBC (Auto) NEGATIVE NEGATIVE Urine RBC NONE /HPF Urine WBC RARE /HPF Urine Crystals NONE /LPF Urine Bacteria NEGATIVE /HPF Urine Casts NONE /LPF Urine Mucus NEGATIVE /LPF Urine Culture Indicated NO Glucometer 464 *H 70-110 MG/DL My Orders Orders - SHAHID FLORES MD Ct Head/Cervical Spine Wo (03/21/19 19:18) Ct Thoracic/Lumbar Spine Wo (03/21/19 19:18) Chest 1 View, Ap/Pa Only (03/21/19 19:18) Pelvis (03/21/19 19:18) Cbc With Automated Diff (03/21/19 19:26) Comprehensive Metabolic Panel (03/21/19:) Magnesium (03/21/19:) Ua Culture If Indicated (03/21/19:) Ed Iv/Invasive Line Start (03/21/19 19:26) Insulin (Regular) Human (Humulin R (Per (03/21/19 20:15) Ns Iv 1000 Ml (Sodium Chloride 0.9%) (03/21/19 20:05) Accucheck Stat ONCE (03/21/19 20:07) Ketorolac Injection (Toradol Injection) (03/21/19 21:15) Medications Given in ED Current Medications Medications Dose Ordered Sig/Josh Route Start Time Stop Time Status Last Admin Dose Admin Insulin Human Regular 5 unit ONCE ONCE IV 03/21/19 20:15 03/21/19 20:16 DC 03/21/19 20:15 5 UNIT Sodium Chloride 1,000 ml @ 0 mls/hr Q0M ONCE IV 03/21/19 20:05 03/21/19 20:06 DC 03/21/19 20:15 999 MLS/HR Vital Signs/I&O 03/21/19 03/21/19 18:52 21:07 Temp 98.0 Pulse 78 69 Resp 20 20 B/P (MAP) 162/86 (111) 145/81 (102) Pulse Ox 100 O2 Delivery Room Air Room Air Blood Pressure Mean: 111 Progress Progress Note #1: Time: 19:26 Progress Note Patient seen and examined. Radiologic studies have been ordered. C-collar was placed during triage. Since patient is an insulin-dependent diabetic, basic labs will also be obtained. Progress Note #2: Time: 20:11 Progress Note Imaging reports are pending. Glucose was 653. A liter of IV fluid and 5 units of IV insulin have been ordered. Progress Note #3: Time: 21:09 Progress Note Blood sugar dropped about 200 points with IV fluids and insulin. I offered to work on her blood sugar further in the ER. Patient declined and wishes to work on it at home. She admits that she has not taken any of her insulin today and ate ice cream. CT and x-ray images were reviewed. No serious injuries were identified. Toradol was given for pain. See discharge instructions. Diagnostic Imaging Diagonstic Imaging: Xray Plain Films/CT/US/NM/MRI: chest Comments Chest x-ray viewed by me and report reviewed. See report below: NAME: AUSTYN LIMA MED REC#: [id number] PT STATUS: REG ER : 1960 PHYSICIAN: SHAHID FLORES MD ADMIT DATE: 03/21/19/ER Signed Date of Exam: 03/21/19 CHEST 1 VIEW, AP/PA ONLY INDICATION: Fall with chest discomfort Frontal chest obtained at 7:41 p.m. Heart and mediastinal silhouette are normal in appearance. The lungs are clear. There is no pneumothorax or pleural fluid. IMPRESSION: Negative chest. Dictated by: Dictated on workstation # [id number] Dict: 03/21/192001 Trans: 03/21/192037 Interpreted by: MARILYNN ROBERTSON MD Electronically signed by: MARILYNN ROBERTSON MD 03/21/192037 Diagonstic Imaging: Xray Plain Films/CT/US/NM/MRI: pelvis Comments Pelvis x-ray viewed by me and report reviewed. See report below: NAME: AUSTYN LIMA MED REC#: [id number] PT STATUS: REG ER : 1960 PHYSICIAN: SHAHID FLORES MD ADMIT DATE: 03/21/19/ER Signed Date of Exam: 03/21/19 PELVIS INDICATION: Fall with pelvic pain AP pelvis obtained at 7:42 p.m. No fracture or acute bony abnormality is seen. There are chronic changes of the pubic symphysis. IMPRESSION: No acute abnormality visualized. Dictated by: Dictated on workstation # [id number] Dict: 03/21/192002 Trans: 03/21/192037 Interpreted by: MARILYNN ROBERTSON MD Electronically signed by: MARILYNN ROBERTSON MD 03/21/192037 Diagonstic Imaging: CT Plain Films/CT/US/NM/MRI: c-spine, head Comments CT head and C-spine viewed by me and report reviewed. See report below: NAME: AUSTYN LIMA [facility] REC#: [id number] PT STATUS: REG ER : 1960 PHYSICIAN: SHAHID FLORES MD ADMIT DATE: 03/21/19/ER Signed Date of Exam: 03/21/19 CT HEAD/CERVICAL SPINE WO INDICATION: Fall in shower with head and neck pain CT brain findings: Noncontrast brain CT is performed. There were no extra-axial fluid collections. No intracranial hemorrhage. No intracranial mass or mass effect. No midline shift. The ventricles are normal in size and position. There were no focal parenchymal abnormalities in the brain. Calvarial windows show no fracture. CT cervical spine findings: Axial slices are obtained with sagittal and coronal reconstructions without contrast. There is no evidence of cervical spine fracture. There is no subluxation or malalignment. There is mild degenerative change at C5-6 and C6-7 with osteophyte formation. IMPRESSION: CT brain shows no acute intracranial abnormality or calvarial fracture. CT cervical spine shows degenerative findings in lower cervical spine as described above with no acute abnormality. Dictated by: Dictated on workstation # [id number] Dict: 03/21/191958 Trans: 03/21/192037 Interpreted by: MARILYNN ROBERTSON MD Electronically signed by: MARILYNN ROBERTSON MD 03/21/192037 Diagonstic Imaging: CT Plain Films/CT/US/NM/MRI: other (thoracic and lumbar spine) Comments CT thoracic and lumbar spine viewed by me and report reviewed. See report below : NAME: AUSTYN LIMA [facility] REC#: [id number] PT STATUS: REG ER : 1960 PHYSICIAN: SHAHID FLORES MD ADMIT DATE: 03/21/19/ER Signed Date of Exam: 03/21/19 CT THORACIC/LUMBAR SPINE WO INDICATION: Back pain post fall in shower CT thoracic and lumbar spine obtained with axial slices without contrast and sagittal and coronal reconstructions. There is no evidence of thoracic or lumbar spine fracture or subluxation. There is prominent degenerative change in the lumbar spine at the L1-2 level with endplate sclerosis. There is degenerative change at L5-S1 as well. There is diffuse facet degenerative change in the lower lumbar spine. Patient has had laminectomy at L4 and L5. IMPRESSION: No acute fracture or subluxation in the thoracic or lumbar spine. There are degenerative findings at the L1-2. There are postop changes in the lower lumbar spine. There is no acute abnormality. Dictated by: Dictated on workstation # [id number] Dict: 03/21/192008 Trans: 03/21/192037 Interpreted by: MARILYNN ROBERTSON MD Electronically signed by: MARILYNN ROBERTSON MD 03/21/192037 Departure Impression Primary Impression: Fall on same level Qualified Codes: W18.30XA - Fall on same level, unspecified, initial encounter Additional Impressions: Neck pain Acute back pain Qualified Codes: M54.9 - Dorsalgia, unspecified Hyperglycemia Disposition: 01 HOME, SELF-CARE Condition: Improved Departure-Patient Inst. Decision time for Depature: 21:03 [place] [facility] [place] [facility] [place] Primary Care Physician CHUY CERDA APRN (Family) Primary Care Physician Patient Instructions: Hyperglycemia, Adult Add. Discharge Instructions: Drink plenty of clear liquids. Resume your insulin dosing as previously directed and monitor your blood sugars very closely over the next 48 hours. 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 You may use Tylenol (acetaminophen) up to 1000 mg every 6 hours as needed for pain. For additional short-term treatment of pain you may also take ibuprofen up to 600 mg every 6 hours as needed. Return to care if you have worsening symptoms or are not improving as expected. All discharge instructions reviewed with patient and/or family. Voiced understanding. SHAHID FLORES MD March 21, 2019 19:26
[2019-03-21 19:40] LABS: BASOPHILS # (AUTO) 0.1 10^3/uL (0.0-0.1); BASOPHILS % (AUTO) 1 % (0-10); EOSINOPHILS # (AUTO) 0.4 10^3/uL (0.0-0.3); EOSINOPHILS % (AUTO) 5 % (0-10); HEMATOCRIT 39 % (35-52); HEMOGLOBIN 13.4 G/DL (11.5-16.0); LYMPHOCYTES # (AUTO) 1.7 X 10^3 (1.0-4.0); LYMPHOCYTES % (AUTO) 21 % (12-44); MEAN CORPUSCULAR HEMOGLOBIN 32 PG (25-34); MEAN CORPUSCULAR HGB CONC 34 G/DL (32-36); MEAN CORPUSCULAR VOLUME 94 FL (80-99); MEAN PLATELET VOLUME 10.4 FL (7.4-10.4); MONOCYTES # (AUTO) 0.6 X 10^3 (0.0-1.0); MONOCYTES % (AUTO) 8 % (0-12); NEUTROPHILS # (AUTO) 5.4 X 10^3 (1.8-7.8); NEUTROPHILS % (AUTO) 66 % (42-75); PLATELET COUNT 183 10^3/uL (130-400); RED CELL DISTRIBUTION WIDTH 12.4 % (10.0-14.5); WHITE BLOOD COUNT 8.3 10^3/uL (4.3-11.0)
[2019-03-21 19:59] LABS: BILIRUBIN,TOTAL 0.5 MG/DL (0.1-1.0); CALCIUM 9.5 MG/DL (8.5-10.1); CREATININE SERUM 1.38 MG/DL (0.60-1.30); MAGNESIUM 1.7 MG/DL (1.8-2.4); POTASSIUM 4.2 MMOL/L (3.6-5.0); TOTAL PROTEIN 8.1 GM/DL (6.4-8.2)
[2019-03-21] MEDS ORDERED: NS IV 1000 ML 1,000 ML IV ONE (20:05)
--- NOTE | 2019-03-21 20:07 | Diagnostic Imaging Report ---
INDICATION: Fall in shower with head and neck pain CT brain findings: Noncontrast brain CT is performed. There were no extra-axial fluid collections. No intracranial hemorrhage. No intracranial mass or mass effect. No midline shift. The ventricles are normal in size and position. There were no focal parenchymal abnormalities in the brain. Calvarial windows show no fracture. CT cervical spine findings: Axial slices are obtained with sagittal and coronal reconstructions without contrast. There is no evidence of cervical spine fracture. There is no subluxation or malalignment. There is mild degenerative change at C5-6 and C6-7 with osteophyte formation. IMPRESSION: CT brain shows no acute intracranial abnormality or calvarial fracture. CT cervical spine shows degenerative findings in lower cervical spine as described above with no acute abnormality. Dictated by: Dictated on workstation # [id number]
--- NOTE | 2019-03-21 20:11 | Diagnostic Imaging Report ---
INDICATION: Fall with chest discomfort Frontal chest obtained at 7:41 p.m. Heart and mediastinal silhouette are normal in appearance. The lungs are clear. There is no pneumothorax or pleural fluid. IMPRESSION: Negative chest. Dictated by: Dictated on workstation # [id number]
--- NOTE | 2019-03-21 20:13 | Diagnostic Imaging Report ---
INDICATION: Fall with pelvic pain AP pelvis obtained at 7:42 p.m. No fracture or acute bony abnormality is seen. There are chronic changes of the pubic symphysis. IMPRESSION: No acute abnormality visualized. Dictated by: Dictated on workstation # [id number]
[2019-03-21] MEDS ORDERED: inSUlin (REGULAR) HUMAN 1 UNIT/0.01 ML (CHARGE PER UNIT) IV ONE (20:15)
--- NOTE | 2019-03-21 20:18 | Diagnostic Imaging Report ---
INDICATION: Back pain post fall in shower CT thoracic and lumbar spine obtained with axial slices without contrast and sagittal and coronal reconstructions. There is no evidence of thoracic or lumbar spine fracture or subluxation. There is prominent degenerative change in the lumbar spine at the L1-2 level with endplate sclerosis. There is degenerative change at L5-S1 as well. There is diffuse facet degenerative change in the lower lumbar spine. Patient has had laminectomy at L4 and L5. IMPRESSION: No acute fracture or subluxation in the thoracic or lumbar spine. There are degenerative findings at the L1-2. There are postop changes in the lower lumbar spine. There is no acute abnormality. Dictated by: Dictated on workstation # [id number]
[2019-03-21 20:29] LABS: BILIRUBIN,URINE NEGATIVE (NEGATIVE); CLARITY,URINE CLEAR; COLOR,URINE YELLOW; GLUCOSE, URINE (UA) 4+ (NEGATIVE); KETONES,URINE NEGATIVE (NEGATIVE); LEUKOCYTE ESTERASE ,URINE NEGATIVE (NEGATIVE); NITRITE,URINE NEGATIVE (NEGATIVE); PH,URINE 6.5 (5-9); PROTEIN,URINE NEGATIVE (NEGATIVE); UROBILINOGEN,URINE NORMAL (NORMAL)
[2019-03-21 20:35] LABS: BACTERIA,URINE NEGATIVE /HPF; WBC,URINE RARE /HPF
[2019-03-21 21:07] VITALS: BP 145/81
[2019-03-21] MEDS ORDERED: KETOROLAC 30 MG/ML VIAL IVP ONE (21:15)
== END 2019-03-21 21:10 | disposition home or self-care (01) ==
LOC: ER 18:43 → EDUNIT# 18:43 → ER 21:10
DX: M54.2 Cervicalgia (principal); E11.65 Type 2 diabetes mellitus with hyperglycemia; R51 Headache; R10.2 Pelvic and perineal pain; M54.9 Dorsalgia, unspecified; E78.00 Pure hypercholesterolemia, unspecified; E11.40 Type 2 diabetes mellitus with diabetic neuropathy, unspecified; K21.9 Gastro-esophageal reflux disease without esophagitis; F41.9 Anxiety disorder, unspecified; F31.9 Bipolar disorder, unspecified; R40.2142 Coma scale, eyes open, spontaneous, at arrival to emergency department; R40.2252 Coma scale, best verbal response, oriented, at arrival to emergency department; R40.2362 Coma scale, best motor response, obeys commands, at arrival to emergency department; Z82.49 Family history of ischemic heart disease and other diseases of the circulatory system; Z87.448 Personal history of other diseases of urinary system; Z88.5 Allergy status to narcotic agent; Z79.82 Long term (current) use of aspirin; Z79.51 Long term (current) use of inhaled steroids; Z79.4 Long term (current) 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; Z87.891 Personal history of nicotine dependence; Z90.49 Acquired absence of other specified parts of digestive tract; Z90.710 Acquired absence of both cervix and uterus; Z98.890 Other specified postprocedural states; W01.198A Fall on same level from slipping, tripping and stumbling with subsequent striking against other object, initial encounter; Y92.002 Bathroom of unspecified non-institutional (private) residence as the place of occurrence of the external cause
CPT/HCPCS: 36415; 70450; 71045; 72125; 72128; 72131; 72170; 80053; 81000; 82962; 83735; 85025; 96361; 96374; 96375

== ENCOUNTER → 2019-05-01 | Outpatient (CLI) | payer MEDICAID ==
[2019-05-01 11:23] LABS: CALCIUM 9.4 MG/DL (8.5-10.1); CREATININE SERUM 0.99 MG/DL (0.60-1.30); POTASSIUM 3.9 MMOL/L (3.6-5.0)
== END ==
LOC: LAB 10:49
PROVIDERS: ATTEND Nurse Practitioner Family
DX: E11.65 Type 2 diabetes mellitus with hyperglycemia (principal)
CPT/HCPCS: 36415; 80048

== ENCOUNTER 2019-05-20 23:58 | Emergency (ER) | payer MEDICAID ==
[~2019-05-20] VITALS: Ht 170.2 cm; Wt 90.7 kg
--- OUTSIDE RECORDS SUMMARY | 2019-05-21 00:06 | XMS REPORT ---
Author Author SHAHEEN Morfin [facility] Address [address] [place] [address] Care Team Providers Care Manager Community Name Role Phone SHAHEEN Morfin Unavailable PROBLEMS Type Condition ICD9-CM Code [id number] Code Onset Dates Condition Status SNOMED Code Problem Serum creatinine raised R79.89 Active 852212870 Problem Episodic mood disorder F39 Active 79153169 Problem Generalized anxiety disorder F41.1 Active 44703640 Problem Lumbago with sciatica, left side M54.42 Active 539183950 Problem Dyslipidemia E78.5 Active 256571076 Problem Other chronic pain G89.29 Active 68450149 Problem Polyneuropathy associated with underlying disease G63 Active 092973437 Problem Syncope, unspecified syncope type R55 Active 721369208 Problem Recurrent major depressive disorder, in partial remission F33.41 Active 22844694 Problem Other seasonal allergic rhinitis J30.2 Active 648277317 Problem Hammertoe of left foot M20.42 Active 453935376 Problem Lumbago with sciatica, right side M54.41 Active 987609622 Problem care home current use of insulin Z79.4 Active 776700212 Problem Type 2 diabetes mellitus with diabetic polyneuropathy E11.42 Active 64310155 Problem Stage 2 chronic kidney disease N18.2 Active 867819540 Problem Vitamin D deficiency E55.9 Active 58687619 ALLERGIES No Information ENCOUNTERS Encounter Location Date Diagnosis [facility] [address] [facility] [id number] [address] May, [address] [address] Apr, [facility] [address] [facility] [id number] [address] Apr, RUQ abdominal pain R10.11 and Rib pain on right side R07.81 [place] [address] [address] Apr, RUQ abdominal pain R10.11 and Rib pain on right side R07.81 [facility] [id number] [place] [address] Apr, [facility] [id number] [place] [address] March, Right foot pain M79.671 [facility] [id number] [place] [address] March, care home current use of insulin Z79.4 [facility] [id number] [place] [address] Feb, [facility] [id number] [place] [address] Jan, care home current use of insulin Z79.4 [facility] [id number] [place] [address] Jan, [facility] [id number] [place] [address] Jan, Type 2 diabetes mellitus with diabetic polyneuropathy E11.42 [facility] [address] [place] [address] Jan, [facility] [address] [place] [address] Jan, Type 2 diabetes mellitus with diabetic polyneuropathy E11.42 [facility] [address] [place] [address] Dec, care home current use of insulin Z79.4 [facility] [address] [place] [address] Dec, care home current use of insulin Z79.4 [facility] [address] [place] [address] Dec, [place] [id number] [place] [address] Nov, Hammertoe of left foot M20.42 ; Peroneal tendonitis of left lower extremity M76.72 ; Callus of foot L84 and Type 2 diabetes mellitus with diabetic polyneuropathy E11.42 [place] [address] [address] Nov, [place] [address] [address] Nov, Encounter for immunization Z23 [place] [address] [address] Oct, [place] [address] [address] Oct, [place] [address] [address] Oct, Acute pancreatitis, unspecified complication status, unspecified pancreatitis type K85.90 [place] [address] [address] Sep, long term care pharmacist current use of insulin Z79.4 [facility] [id number] [place] [address] Sep, [place] [address] [address] Sep, Type 2 diabetes mellitus with diabetic polyneuropathy E11.42 ; Stage 2 chronic kidney disease N18.2 and Recurrent major depressive disorder, in partial remission F33.41 [place] [address] [address] Sep, long term care pharmacist current use of insulin Z79.4 [facility] [id number] [place] [address] Sep, Acute maxillary sinusitis, recurrence not specified J01.00 and Bronchiolitis J21.9 [place] [address] [address] 17 Jul, 2018 [place] [id number] [place] [address] Jun, Type 2 diabetes mellitus with diabetic polyneuropathy E11.42 ; Open wound T14.8XXA ; care home current use of insulin Z79.4 ; Stage 2 chronic kidney disease N18.2 and Episodic mood disorder F39 [place] [id number] [place] [address] May, [facility] [facility] [id number] [place] [address] March, [facility] [id number] [place] [address] March, Type 2 diabetes mellitus with diabetic [...] H60.502 and Non-adherence to medical treatment Z91.[address] [id number] [id number] Feb, Dental examination Z01.[address] [place] [address] Feb, Labile hypertension R09.89 ; Syncope, unspecified syncope type R55 ; Chest pain, unspecified type R07.9 and Dyslipidemia E78.5 [place] [id number] [place] [address] Feb, [facility] [id number] [place] [address] Jan, [address] [id number] [id number] Jan, Dental examination Z01.20 [facility] [address] [place] [address] Jan, Acute non-recurrent maxillary sinusitis J01.00 and Dyslipidemia E78.5 [facility] [address] [id number] [id number] Jan, Dental examination Z01.20 and Dental caries K02.9 [facility] [address] [place] [address] [id number] Jan, [address] [id number] [id number] Dec, Dental examination Z01.20 [facility] [id number] [place] [address] Dec, Seasonal allergic rhinitis, unspecified trigger J30.2 [facility] [address] [address] Nov, [place] [id number] [place] [address] Nov, Type 2 diabetes mellitus with diabetic polyneuropathy E11.42 ; Dyslipidemia E78.5 ; Lumbago with sciatica, right side M54.41 ; Lumbago with sciatica, left side M54.42 ; long term care pharmacist current use of insulin Z79.4 ; Polyneuropathy associated with underlying disease G63 ; Stage 2 chronic kidney disease N18.2 and Syncope, unspecified syncope type R55 [place] [id number] [place] [address] 14 Oct, 2017 Type 2 diabetes mellitus with diabetic polyneuropathy E11.42 ; Acute otitis externa of left ear, unspecified type H60.502 ; Overweight (BMI 25.0- 29.9) E66.3 ; Dyslipidemia E78.5 and Polyneuropathy associated with underlying disease G63 [place] [id number] [place] [address] 10 Sep, 2017 [place] [address] [place] [address] Aug, Abnormal mammogram R92.8 [facility] [id number] [place] [address] Aug, Type 2 diabetes mellitus with diabetic polyneuropathy E11.42 [facility] [id number] [place] [address] Aug, [facility] [address] [address] Aug, Type 2 diabetes mellitus with diabetic polyneuropathy E11.42 ; Syncope, unspecified syncope type R55 ; Other chronic pain G89.29 and Encounter for immunization Z23 [place] [id number] [place] [address] Aug, Type 2 diabetes mellitus with diabetic polyneuropathy E11.42 [place] [id number] [place] [address] Jul, Type 2 diabetes mellitus with diabetic polyneuropathy E11.42 and Serum creatinine raised R79.89 [place] [id number] [place] [address] Jul, Type 2 diabetes mellitus with diabetic polyneuropathy E11.42 and Serum creatinine raised R79.89 [place] [address] [id number] [place] [address] May, [facility] [id number] [place] [address] May, [facility] [id number] [place] [address] May, Head injury, initial encounter S09.90XA ; Facial pain R51 ; Neck pain M54.2 and Fall, initial encounter W19.XXXA [place] [address] [place] [address] May, Type 2 diabetes mellitus with diabetic polyneuropathy E11.42 [place] [address] [address] [id number] [address] May, [place] [address] [address] May, Type 2 diabetes mellitus with diabetic polyneuropathy E11.42 [place] [address] [address] May, Dyslipidemia E78.5 ; long term care pharmacist current use of insulin Z79.4 ; Type 2 diabetes mellitus with diabetic polyneuropathy E11.42 ; Generalized anxiety disorder F41.1 and Other seasonal allergic rhinitis J30.2 [place] [address] [place] [address] Apr, Type 2 diabetes mellitus with diabetic polyneuropathy E11.42 [place] [address]65100[place] [address] March, [facility] [facility] [address] [id number] [place] [address] March, Abnormal mammogram R92.8 [place] [address]65100[place] [address] Feb, Abnormal mammogram R92.8 [place] [address] [address] Feb, Diabetes type 2, uncontrolled E11.65 [place] [address]100[place] [address] Feb, Screening for breast cancer Z12.39 [place] [address] [address] Jan, Screening for breast cancer Z12.39 [place] [address]65100[place] [address] Jan, Type 2 diabetes mellitus with diabetic polyneuropathy E11.42 ; long term care pharmacist current use of insulin Z79.4 ; Other viral agents as the cause of diseases classified elsewhere B97.89 and Acute upper respiratory infection, unspecified J06.9 [place] [address] [place] [address] Jan, [place] [address] [address] Dec, Diabetes type 2, uncontrolled E11.65 ; Dyslipidemia E78.5 ; Generalized anxiety disorder F41.1 ; Depression, unspecified depression type F32.9 ; care home current use of insulin Z79.4 and Polyneuropathy associated with underlying disease G63 [place] [address] [id number] [place] [address] 16 Dec, 2016 [place] [address] [address] Dec, [place] [address] [id number] [place] [address] Dec, [place] [id number] [place] [address] Dec, [place] [address] [id number] [place] [address] Oct, Well woman exam Z01.419 ; Screening for breast cancer Z12.39 ; care home current use of insulin Z79.4 ; Type 2 diabetes mellitus without complications E11.9 and Encounter for immunization Z23 [place] [id number] [place] [address] Sep, [place] [address] [id number] [place] [address] Sep, Diabetes type 2, uncontrolled E11.65 ; Dyslipidemia E78.5 and Depression, unspecified depression type F32.9 [place] [id number] [place] [address] Aug, Diabetes type 2, uncontrolled E11.65 ; Encounter for immunization Z23 ; Nasal congestion R09.81 and Ear pressure, bilateral H93.8X3 [address] [address] Jul, Eustachian tube dysfunction, left H69.82 [place] [address] [place] [address] Jun, [place] [address] [place] [id number] [place] [address] Jun, Hospital discharge follow-up Z09 ; Syncope, unspecified syncope type R55 and Acute suppurative otitis media of left ear without spontaneous rupture of tympanic membrane, recurrence not specified H66.002 [place] [address] [place] [id number] [place] [address] May, [place] [address] [place] [id number] [place] [address] May, [place] [address] [place] [id number] [place] [address] May, [place] [address] [place] [id number] [place] [address] May, Diabetes type 2, uncontrolled E11.65 ; [...] disturbance G47.9 and Generalized anxiety disorder F41.1 [place] [address] [address] March, [address]00565100[place] [id number] March, Syncope, unspecified syncope type R55 and Depression, unspecified depression type F32.9 [facility] [address]100[place] [address] March, Orthostatic hypotension I95.1 [facility] [address] [id number] [place] [id number] March, [facility] [address] [id number] [address] March, [facility] [address] [id number] [place] [id number] Feb, [facility] [address] [id number][place] [address] Feb, Dental examination Z01.20 [facility] [address] [id number] [place] [address] Jan, [facility] [id number] [place] [id number] Jan, [facility] [id number] [place] [id number] Dec, Diabetes type 2, uncontrolled E11.65 [facility] [id number] [place] [id number] Nov, [facility] [address] [id number] [id number] Nov, Encounter for dental examination Z01.20 [facility] [address] [id number][place] [id number] Nov, Dental examination Z01.20 [facility] [place] [address] [id number] [place] [id number] Sep, Diabetes type 2, uncontrolled E11.65 [facility] [address] [id number][place] [id number] Sep, Encounter for dental examination Z01.20 and Dental caries, unspecified K02.9 [facility] [address] [id number] [place] [id number] Sep, Bipolar 2 disorder F31.81 [facility] [address] [id number] [place] [id number] Aug, [facility] [address] [id number] [place] [address] Aug, Follow up V67.9 [facility] [address] [id number] [place] [address] Jul, Bipolar disorder, unspecified 296.80 [facility] [place] [id number] [address] Jul, Thyroid enlarged 240.9 and Bipolar disorder, unspecified 296.80 [facility] [id number] [place] [id number] Jun, Diabetes mellitus type 2, uncontrolled 250.02 ; Bipolar disorder, unspecified 296.80 and Rash 782.1 [facility] [id number] [place] [id number] Jun, [facility] [address] [place] [id number] May, Urinary tract infection 599.0 [facility] [id number] [place] [id number] May, Urinary tract infection 599.0 [facility] [address] [id number] [place] [id number] May, [facility] [id number] [place] [id number] May, Diabetes mellitus type 2, uncontrolled 250.02 and Pica in adults 307.52 [facility] [address] [place] [address] [id number] Apr, Follow up V67.9 and Diabetes mellitus type 2, uncontrolled 250.02 [facility] [address]00565100[place] [id number] Apr, [facility] [address]00565100[place] [address] Apr, [facility] [id number] [place] [id number] Apr, Hyperlipidemia 272.4 [facility] [address] [place] [address] [id number] March, Diabetes type 2, uncontrolled 250.02 [facility] [id number] [place] [id number] March, Diabetes mellitus type 2, uncontrolled 250.02 [facility] [address]00565100[place] [id number] March, Diabetes type 2, uncontrolled 250.02 [facility] [address] [facility] [id number] [place] [id number] March, [facility] [address] [facility] [id number] [place] [id number] March, [facility] [address] [id number] [place] [id number] Feb, [facility] [address]00565100[place] [address] Feb, [facility] [place] [facility] [address]65100[place] [address] Feb, [facility] [id number] [place] [id number] Jan, [facility] [place] [facility] [address]00565100[place] [address] Jan, [facility] [place] [facility] [address] [address] Jan, [facility] [id number] [place] [id number] Jan, [facility] [place] [facility] [address]00565100[place] [address] Jan, [facility] [place] [facility] [address]00565100[place] [address] Jan, [facility] [address] [id number] [place] [id number] Jan, [facility] [place] [facility] [address]100[place] [address] Jan, [facility] [place] [facility] [address] [id number] [address] Dec, [facility] [address] [id number] [place] [id number] Dec, [facility] [place] [facility] [address]00565100[place] [address] Dec, [facility] [id number] [place] [id number] Dec, 2014 [facility] [place] [facility] [address] [facility] [id number] [place] [address] Dec, 2014 [facility] [address] [facility] [id number] [place] [id number] Dec, 2014 [facility] [place] [facility] [address] [facility] [id number] [place] [address] Dec, 2014 [facility] [place] [facility] [address] [facility] [id number] [place] [address] Dec, 2014 [facility] [address] [facility] [id number] [place] [id number] Dec, [facility] [address] [facility] [id number] [place] [id number] Dec, [facility] [place] [facility] [address]100[place] [address] Dec, [facility] [place] [facility] [address]00565100[place] [address] Nov, [facility] [place] [facility] [address]65100[place] [address] Oct, [facility] [place] [facility] [address] [address] Oct, [facility] [address] [id number] [place] [id number] Sep, [facility] [place] [facility] [address] [facility] [id number] [place] [address] Sep, [facility] [address] [facility] [id number] [place] [id number] Sep, [facility] [place] [facility] [address] [facility] [id number] [place] [address] Sep, [facility] [address] [facility] [id number] [place] [id number] Aug, [facility] [place] [facility] [address] [id number] [address] Aug, [facility] [address] [id number] [place] [id number] Aug, [facility] [place] [facility] [address] [facility] [id number] [place] [address] Aug, [facility] [place] [facility] [address] [facility] [id number] [place] [address] Jul, [facility] [place] [facility] [address] [facility] [id number] [place] [address] Jul, [facility] [address] [id number] [place] [id number] Jul, [facility] [place] [facility] [address] [facility] [id number] [place] [address] Jul, [facility] [address] [id number] [place] [id number] Jun, [facility] [address] [id number] [place] [id number] Jun, [facility] [place] [facility] [address] [facility] [id number] [place] [address] Jun, [facility] [place] [facility] [address] [facility] [id number] [place] [address] Jun, [facility] [address] [facility] [id number] [place] [id number] Jun, [facility] [place] [facility] [address] [facility] [id number] [place] [address] Jun, [facility] [address] [facility] [id number] [place] [id number] May, [facility] [place] [facility] [address] [facility] [id number] [place] [address] May, [facility] [place] [facility] [address] [facility] [id number] [place] [address] Apr, [facility] [place] [facility] [address] [facility] [id number] [place] [address] Apr, [facility] [address] [id number] [place] [id number] Apr, [facility] [place] [facility] [address] [id number] [place] [address] Apr, [facility] [place] [facility] [address] [facility] [id number] [place] [address] Apr, [facility] [address] [id number] [place] [id number] March, [facility] [place] [facility] [address] [id number] [place] [address] March, [facility] [place] [facility] [address] [facility] [id number] [place] [address] March, [facility] [address] [facility] [id number] [place] [id number] March, [facility] [place] [facility] [address] [facility] [id number] [place] [address] March, [facility] [address] [id number] [place] [id number] March, [facility] [place] [facility] [address] [facility] [id number] [place] [address] March, [facility] [address] [facility] [id number] [place] [id number] Feb, [facility] [place] [facility] [address] [facility] [id number] [place] [address] Feb, [facility] [place] [facility] [address] [facility] [id number] [place] [address] Jan, [facility] [address] [id number] [place] [id number] Jan, [facility] [place] [facility] [address] [id number] [place] [address] Jan, [facility] [place] [facility] [address] [facility] [id number] [place] [address] Jan, [facility] [address] [id number] [place] [id number] Jan, [facility] [place] [address] [facility] [id number] [place] [id number] Dec, [facility] [place] [facility] [address] [facility] [id number] [place] [address] Dec, [facility] [place] [facility] [address] [facility] [id number] [address] Dec, [facility] [place] [address] [facility] [id number] [place] [id number] Dec, [facility] [place] [facility] [address] [facility] [id number] [place] [address] Dec, [facility] [place] [address] [facility] [id number] [place] [id number] Dec, [facility] [place] [facility] [address]00565100[place] [address] Dec, [facility] [place] [facility] [address]00565100[place] [address] Dec, [facility] [address] [facility] [id number] [place] [id number] Dec, [facility] [place] [address] [facility] [id number] [place] [id number] Nov, [facility] [place] [facility] [address]00565100[place] [address] Nov, [facility] [place] [facility] [address] [id number] [address] Nov, [facility] [address] [facility] [id number] [place] [id number] Nov, [facility] [address] [facility] [id number] [place] [id number] Oct, [facility] [place] [facility] [address] [facility] [id number] [place] [address] Oct, [facility] [address] [facility] [id number] [place] [id number] Oct, [facility] [place] [facility] [address] [id number] [address] Oct, [facility] [place] [facility] [address] [id number] [place] [address] Oct, [facility] [address] [facility] [id number] [place] [address] Oct, [facility] [address] [facility] [id number] [place] [address] Oct, [facility] [place] [facility] [address] [facility] [id number] [place] [address] Oct, [facility] [address] [facility] [id number] [place] [address] Sep, [facility] [place] [facility] [address] [facility] [id number] [place] [address] Sep, [facility] [address] [facility] [id number] [place] [id number] Sep, [facility] [address] [facility] [id number] [place] [address] Sep, [facility] [address] [facility] [id number] [place] [address] Sep, [facility] [address] [id number] [place] [id number] Sep, [facility] [address] [facility] [id number] [place] [id number] Aug, [facility] [place] [facility] [address] [facility] [id number] [place] [address] Aug, [facility] [place] [facility] [address] [facility] [id number] [place] [address] Aug, [facility] [address] [id number] [place] [address] Aug, [facility] [address] [facility] [id number] [place] [id number] Aug, [facility] [place] [facility] [address] [facility] [id number] [place] [address] Aug, [facility] [place] [facility] [address] [facility] [id number] [place] [address] Aug, [facility] [address] [facility] [id number] [place] [address] Aug, [facility] [address] [facility] [id number] [place] [id number] Jul, [facility] [address] [facility] [id number] [place] [address] Jul, [facility] [place] [facility] [address] [facility] [id number] [place] [address] Jul, [facility] [address] [id number] [place] [id number] Jul, [facility] [address] [id number] [place] [id number] Jul, [facility] [address]00565100[place] [address] May, [facility] [address] [facility] [id number] [place] [address] Apr, [facility] [address] [id number] [place] [id number] Apr, [facility] [address] [id number] [place] [id number] Apr, [facility] [address]00565100[place] [address] March, [facility] [address] [id number] [place] [id number] March, [facility] [address] [id number] [place] [id number] March, [facility] [address] [id number] [place] [id number] March, [facility] [address] [id number] [place] [id number] March, [facility] [address] [id number] [place] [id number] March, [facility] [address] [facility] [id number] [place] [address] March, [facility] [address] [facility] [id number] [place] [address] March, [facility] [address] [id number] [address] Feb, [facility] [address] [id number] [place] [id number] Feb, [facility] [address] [id number] [place] [id number] Feb, [facility] [address] [id number] [place] [id number] Feb, [facility] [address]00565100[place] [address] Feb, [facility] [address] [id number] [place] [id number] Feb, [facility] [address] [id number] [place] [id number] Jan, [facility] [address] [id number] [place] [id number] Jan, [facility] [address] [id number] [place] [id number] Dec, [facility] [address] [id number] [place] [id number] Dec, [facility] [address] [id number] [address] Dec, [facility] [address] [id number] [place] [id number] Dec, [facility] [address] [id number] [place] [address] Dec, [facility] [address] [id number] [place] [id number] Dec, [facility] [address] [id number] [place] [id number] Dec, [facility] [address]00565100[place] [address] Nov, [facility] [address] [id number] [place] [id number] Nov, [facility] [address] [id number] [place] [id number] Nov, [facility] [address] [id number] [place] [id number] Nov, [facility] [address] [id number] [place] [address]37[place] Nov, [facility] [address] [facility] [id number] [place] [address] Oct, [facility] [address] [id number] [place] [id number] Oct, [facility] [address] [id number] [place] [id number] Oct, [facility] [address] [id number] [place] 8436[address] Oct, [facility] [address] [facility] [id number] [place] [address] Oct, [facility] [place] [facility] [address] [facility] [id number] [place] [address] Oct, [facility] [place] [facility] [address] [facility] [id number] [place] [address] Oct, [facility] [place] [address] [facility] [id number] [place] [address]70319933 Sep, [facility] [address] [facility] [id number] [place] [address] Sep, [facility] [place] [facility] [address] [facility] [id number] [place] [address] Sep, [facility] [place] [address] [id number] [place] [id number] Sep, [facility] [place] [address] [id number] [place] [id number] Sep, [facility] [address] [id number] [place] [address]65860827 Sep, [facility] [place] [facility] [address] [facility] [id number] [place] [address] Sep, [facility] [place] [facility] [address] [facility] [id number] [place] [address] Sep, [facility] [place] [facility] [address] [facility] [id number] [place] [address] Sep, [facility] [place] [address] [id number] [place] [id number] Aug, [facility] [place] [facility] [address] [facility] [id number] [place] [address] Aug, [facility] [address] [id number] [place] [id number] Aug, [facility] [place] [facility] [address] [facility] [id number] [place] [address] Aug, [facility] [address]00565100[place] [address] Aug, [facility] [address] [id number] [place] 191549342 Aug, [facility] [address] [id number] [place] 843321111 Aug, [facility] [address] [facility] [id number] [place] [address] Aug, [facility] [address] [id number] [place] 15795[address]82 Aug, [facility] [address] [id number] [place] 47[address]2579 Jul, [facility] [address] [id number] [place] 802[place]297 Jun, [facility] [address] [id number] [place] 400895708 May, [facility] [address] [id number] [place] 326917495 May, [facility] [place] [address] [id number] [place] [id number] May, [facility] [place] [address] [id number] [place] 390688196 May, [facility] [place] [address] [id number] [place] 7612[place]407 May, [facility] [place] [address] [id number] [place] 985[place]014 May, [facility] [place] [address] [id number] [place] 978908640 May, [facility] [place] [address] [id number] [place] [id number] Apr, [facility] [place] [address] [id number] [place] [id number] Apr, [facility] [place] [address] [id number] [place] [id number] Apr, [facility] [place] [address] [id number] [place] [id number] Apr, [facility] [place] [address] [id number] [place] [id number] Apr, [facility] [place] [address] [id number] [place] 049705805 Apr, [facility] [place] [address] [id number] [place] [id number] March, [facility] [place] [address] [id number] [place] 075579651 March, [facility] [place] [address] [id number] [place] [id number] Feb, [facility] [place] [address] [id number] [place] [id number] Feb, [facility] [place] [address] [id number] [place] [id number] Feb, [facility] [place] [address] [id number] [place] 045131093 Jan, [facility] [place] [address] [id number] [place] 232362272 Jan, [facility] [place] [address] [id number] [place] 7531912[address] Jan, [facility] [place] [address] [id number] [place] 374217655 Jan, [facility] [place] [address] [id number] [place] [id number] Dec, [facility] [place] [facility] [address] [facility] [id number] [place] [address] Dec, [facility] [place] [address] [id number] [place] 9[place] Dec, [facility] [place] [address] [id number] [place] [id number] Nov, [facility] [place] [address] [id number] [place] 935117730 Nov, [facility] [place] [address] [id number] [place] [id number] Nov, [facility] [place] [facility] [address] [facility] [id number] [place] [address] Oct, [facility] [place] [facility] [id number] [place] [address] Oct, [facility] [place] [facility] [address] [id number] [address] Oct, [facility] [place] [facility] [id number] [place] [address] Aug, [facility] [place] [facility] [address]00565100[place] [address] Aug, [facility] [place] [facility] [address]00565100[place] [address] Aug, [facility] [place] [facility] [address]00565100[place] [address] March, [facility] [place] [facility] [id number] [place] [address] Oct, [facility] [place] [facility] [address] [id number] [address] Oct, [facility] [place] [facility] [address]00565100[place] [address] Sep, [facility] [place] [facility] [address] [id number] [place] [address] 19 Sep, 2010 [facility] [address] [id number] [place] [address] Sep, [facility] [place] [facility] [address] [id number] [place] [address] Aug, [facility] [place] [facility] [address] [id number] [place] [address] Aug, [facility] [place] [facility] [address] [id number] [place] [address] Jun, [facility] [place] [facility] [address] [id number] [place] [address] May, [facility] [place] [facility] [address] [id number] [place] [address] Jan, [facility] [place] [facility] [address] [id number] [place] [address] Nov, [facility] [address] [id number] [place] [address] Oct, [facility] [place] [facility] [address] [id number] [place] [address] Sep, [facility] [address] [facility] [id number] [place] [address] Sep, [facility] [place] [facility] [address] [id number] [place] [address] Sep, [facility] [place] [facility] [address] [id number] [place] [address] Sep, [facility] [place] [facility] [address] [id number] [place] [address] Sep, [facility] [place] [facility] [address] [id number] [place] [address] 30 Aug, 2009 [facility] [place] [facility] [address] [id number] [place] [address] Aug, [facility] [address] [facility] [id number] [place] [address] Jul, [facility] [address] [facility] [id number] [place] [address] Jun, IMMUNIZATIONS No Known Immunizations SOCIAL HISTORY Never Assessed REASON FOR VISIT PLAN OF CARE VITAL SIGNS MEDICATIONS Unknown [...]
--- OUTSIDE RECORDS SUMMARY | 2019-05-21 00:07 | XMS REPORT ---
Author Author SANDRA Shepard Organization [facility] Address [address] [place] [address] Care Team Providers Care Snuff Grinder Name Role Phone SANDRA Shepard Unavailable PROBLEMS Type Condition ICD9-CM Code JNU26-HX Code Onset Dates Condition Status SNOMED Code Problem Serum creatinine raised R79.89 Active 885213988 Problem Episodic mood disorder F39 Active 41487532 Problem Generalized anxiety disorder F41.1 Active 84325239 Problem Lumbago with sciatica, left side M54.42 Active 185903885 Problem Dyslipidemia E78.5 Active 494439917 Problem Other chronic pain G89.29 Active 86470400 Problem Polyneuropathy associated with underlying disease G63 Active 262466850 Problem Syncope, unspecified syncope type R55 Active 464907054 Problem Recurrent major depressive disorder, in partial remission F33.41 Active 77951323 Problem Other seasonal allergic rhinitis J30.2 Active 850245280 Problem Hammertoe of left foot M20.42 Active 204799991 Problem Lumbago with sciatica, right side M54.41 Active 608660496 Problem 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 Active 506443316 Problem Type 2 diabetes mellitus with diabetic polyneuropathy E11.42 Active 52748497 Problem Stage 2 chronic kidney disease N18.2 Active 195209681 Problem Vitamin D deficiency E55.9 Active [id number] ALLERGIES No Information ENCOUNTERS Encounter Location Date Diagnosis [facility] [address] [facility] [id number], [place] [address] May, [address] [address] Apr, [facility] [address] [facility] [id number], [place] [address] Apr, RUQ abdominal pain R10.11 and Rib pain on right side R07.81 [place] [address], [place] [address] Apr, RUQ abdominal pain R10.11 and Rib pain on right side R07.81 [facility] [id number] [place] [address] Apr, [facility] [id number] [place] [address] March, Right foot pain M79.671 [facility] [id number] [place] [address] March, 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 [facility] [id number] [place] [address] Feb, [facility] [id number] [place] [address] Jan, penitentiary current use of insulin Z79.4 [facility] [address] [place] [address] Jan, [facility] [address] [place] [address] Jan, Type 2 diabetes mellitus with diabetic polyneuropathy E11.42 [facility] [address] [place] [address] Jan, [facility] [address] [place] [address] Jan, Type 2 diabetes mellitus with diabetic polyneuropathy E11.42 [facility] [address], [place] [address] Dec, penitentiary current use of insulin Z79.4 [facility] [address], [place] [address] Dec, 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 [facility] [address] [place] [address] Dec, [place] [id number] [place] [address] Nov, Hammertoe of left foot M20.42 ; Peroneal tendonitis of left lower extremity M76.72 ; Callus of foot L84 and Type 2 diabetes mellitus with diabetic polyneuropathy E11.42 [place] [address] [address] Nov, [place] [address] [address] Nov, Encounter for immunization Z23 [place] [address] [address] Oct, [place] [address] [address] Oct, [place] [address] [address] Oct, Acute pancreatitis, unspecified complication status, unspecified pancreatitis type K85.90 [place] [address] [address] Sep, 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 [place] [id number] [place] [address] Sep, [place] [address] [address] Sep, Type 2 diabetes mellitus with diabetic polyneuropathy E11.42 ; Stage 2 chronic kidney disease N18.2 and Recurrent major depressive disorder, in partial remission F33.41 [place] [address] [address] Sep, penitentiary current use of insulin Z79.4 [place] [id number] [place] [address] Sep, Acute maxillary sinusitis, recurrence not specified J01.00 and Bronchiolitis J21.9 [place] [address], [place] [address] 17 Jul, 2018 [place] [id number] [place] [address] Jun, Type 2 diabetes mellitus with diabetic polyneuropathy E11.42 ; Open wound T14.8XXA ; 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 ; Stage 2 chronic kidney disease N18.2 and Episodic mood disorder F39 [place] [id number] [place] [address] May, [place] [id number] [place] [address] March, [place] [id number] [place] [address] March, Type 2 diabetes mellitus with diabetic [...] H60.502 and Non-adherence to medical treatment Z91.[address] [id number] [place] [id number] Feb, Dental examination Z01.20 [place] [address] [place] [address] Feb, Labile hypertension R09.89 ; Syncope, unspecified syncope type R55 ; Chest pain, unspecified type R07.9 and Dyslipidemia E78.5 [place] [id number] [place] [address] Feb, [place] [address] [place] [address] Jan, [address] [id number] [place] [id number] Jan, Dental examination Z01.20 [facility] [id number] [place] [address] Jan, Acute non-recurrent maxillary sinusitis J01.00 and Dyslipidemia E78.5 [facility] [address] [facility] [id number] [place] [id number] Jan, Dental examination Z01.20 and Dental caries K02.[address] [id number] Jan, [address] [id number] [place] [id number] Dec, Dental examination Z01.20 [facility] [id number] [place] [address] Dec, Seasonal allergic rhinitis, unspecified trigger J30.2 [place] [address] [address] Nov, [place] [address] [address] Nov, Type 2 diabetes mellitus with diabetic polyneuropathy E11.42 ; Dyslipidemia E78.5 ; Lumbago with sciatica, right side M54.41 ; Lumbago with sciatica, left side M54.42 ; 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 ; Polyneuropathy associated with underlying disease G63 ; Stage 2 chronic kidney disease N18.2 and Syncope, unspecified syncope type R55 [place] [address] [place] [address] 14 Oct, 2017 Type 2 diabetes mellitus with diabetic polyneuropathy E11.42 ; Acute otitis externa of left ear, unspecified type H60.502 ; Overweight (BMI 25.0- 29.9) E66.3 ; Dyslipidemia E78.5 and Polyneuropathy associated with underlying disease G63 [place] [id number] [place] [address] Sep, [place] [address] [place] [address] Aug, Abnormal mammogram R92.8 [place] [id number] [place] [address] Aug, Type 2 diabetes mellitus with diabetic polyneuropathy E11.42 [place] [id number] [place] [address] Aug, [place] [address] [address] Aug, Type 2 diabetes mellitus with diabetic polyneuropathy E11.42 ; Syncope, unspecified syncope type R55 ; Other chronic pain G89.29 and Encounter for immunization Z23 [place] [id number] [place] [address] Aug, Type 2 diabetes mellitus with diabetic polyneuropathy E11.42 [place] [id number] [place] [address] Jul, Type 2 diabetes mellitus with diabetic polyneuropathy E11.42 and Serum creatinine raised R79.89 [place] [id number] [place] [address] Jul, Type 2 diabetes mellitus with diabetic polyneuropathy E11.42 and Serum creatinine raised R79.89 [place] [id number] [place] [address] May, [place] [id number] [place] [address] May, [place] [address] [place] [address] May, Head injury, initial encounter S09.90XA ; Facial pain R51 ; Neck pain M54.2 and Fall, initial encounter W19.XXXA [place] [id number] [place] [address] May, Type 2 diabetes mellitus with diabetic polyneuropathy E11.42 [place] [address] [place] [address] May, [facility] [address], [place] [address] May, Type 2 diabetes mellitus with diabetic polyneuropathy E11.42 [place] [address], [place] [address] May, Dyslipidemia E78.5 ; penitentiary current use of insulin Z79.4 ; Type 2 diabetes mellitus with diabetic polyneuropathy E11.42 ; Generalized anxiety disorder F41.1 and Other seasonal allergic rhinitis J30.2 [place] [address] [place] [address] Apr, Type 2 diabetes mellitus with diabetic polyneuropathy E11.42 [place] [address] [address] March, [place] [id number] [place] [address] March, Abnormal mammogram R92.8 [place] [address], [place] [address] Feb, Abnormal mammogram R92.8 [place] [address], [place] [address] Feb, Diabetes type 2, uncontrolled E11.65 [place] [address], [place] [address] Feb, Screening for breast cancer Z12.39 [place] [address], [place] [address] Jan, Screening for breast cancer Z12.39 [place] [address], [place] [address] Jan, Type 2 diabetes mellitus with diabetic polyneuropathy E11.42 ; 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 ; Other viral agents as the cause of diseases classified elsewhere B97.89 and Acute upper respiratory infection, unspecified J06.9 [place] [address] [place] [address] Jan, [place] [id number] [place] [address] 17 Dec, 2016 Diabetes type 2, uncontrolled E11.65 ; Dyslipidemia E78.5 ; Generalized anxiety disorder F41.1 ; Depression, unspecified depression type F32.9 ; 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 and Polyneuropathy associated with underlying disease G63 [place] [id number] [place] [address] 16 Dec, 2016 [place] [address] [place] [address] [id number] [place] [address] 14 Dec, 2016 [place] [address] [place] [address] [id number] [place] [address] Dec, [place] [address] [place] [address] [id number] [place] [address] Dec, [place] [address] [place] [address] [id number] [place] [address] Oct, Well woman exam Z01.419 ; Screening for breast cancer Z12.39 ; penitentiary current use of insulin Z79.4 ; Type 2 diabetes mellitus without complications E11.9 and Encounter for immunization Z23 [place] [id number] [place] [address] Sep, [place] [address] [place] [address] [place] [address] Sep, Diabetes type 2, uncontrolled E11.65 ; Dyslipidemia E78.5 and Depression, unspecified depression type F32.9 [place] [address] [place] [address] Aug, Diabetes type 2, uncontrolled E11.65 ; Encounter for immunization Z23 ; Nasal congestion R09.81 and Ear pressure, bilateral H93.8X3 [place] [address] [place] [address] Jul, Eustachian tube dysfunction, left H69.82 [place] [id number] [place] [address] Jun, [place] [address] [place] [address] [id number] [place] [address] Jun, Hospital discharge follow-up Z09 ; Syncope, unspecified syncope type R55 and Acute suppurative otitis media of left ear without spontaneous rupture of tympanic membrane, recurrence not specified H66.002 [place] [address] [id number] [place] [address] May, [place] [address] [id number] [place] [address] May, [place] [address] [place] [address] [id number] [place] [address] May, [place] [address] [place] [address] [address] [place] [address] May, Diabetes type 2, uncontrolled E11.65 ; [...] disturbance G47.9 and Generalized anxiety disorder F41.1 [place] [address], [place] [address] March, [facility] [address] [id number] March, Syncope, unspecified syncope type R55 and Depression, unspecified depression type F32.9 [facility] [id number], [place] [address] March, Orthostatic hypotension I95.1 [facility] [address] [place] [id number] [place] [id number] March, [facility] [address] [id number], [place] [address] March, [facility] [address] [id number][place] [id number] Feb, [facility] [address] [id number] [place] [id number] Feb, Dental examination Z01.20 [facility] [address] [id number], [place] [address] Jan, [facility] [address] [id number], [place] [address] Jan, [facility] [id number] [place] [id number] Dec, Diabetes type 2, uncontrolled E11.65 [facility] [id number] [place] [address] [id number] Nov, [facility] [address] [id number] [place] [id number] Nov, Encounter for dental examination Z01.20 [facility] [address] [id number] [place] [id number] Nov, Dental examination Z01.20 [facility] [address] [id number], [place] [address] Sep, Diabetes type 2, uncontrolled E11.65 [facility] [address] [id number] [place] [address] Sep, Encounter for dental examination Z01.20 and Dental caries, unspecified K02.9 [facility] [address] [id number][place] [address] Sep, Bipolar 2 disorder F31.81 [facility] [address] [id number], [place] [id number] Aug, [facility] [address] [id number], [place] [address] Aug, Follow up V67.9 [facility] [address] [id number], [place] [address] Jul, Bipolar disorder, unspecified 296.80 [facility] [id number], [place] [address] Jul, Thyroid enlarged 240.9 and Bipolar disorder, unspecified 296.80 [facility] [id number] [place] [address] [id number] Jun, Diabetes mellitus type 2, uncontrolled 250.02 ; Bipolar disorder, unspecified 296.80 and Rash 782.1 [facility] [id number] [place] [address] [id number] Jun, [facility] [address] [place] [address] [id number] May, Urinary tract infection 599.0 [facility] [address] [place] [id number] [place] [address] [id number] May, Urinary tract infection 599.0 [facility] [place] [address] [place] [id number] [place] [id number] May, [facility] [id number] [place] [address] [id number] May, Diabetes mellitus type 2, uncontrolled 250.02 and Pica in adults 307.52 [facility] [place] [address] [place] [address] [id number] Apr, Follow up V67.9 and Diabetes mellitus type 2, uncontrolled 250.02 [facility] [place] [place] [address] [id number] Apr, [facility] [address], [place] [address] Apr, [facility] [id number], [place] [id number] Apr, Hyperlipidemia 272.4 [facility] [place] [address] [place] [address] [id number] March, Diabetes type 2, uncontrolled 250.02 [facility] [place] [id number], [place] [id number] March, Diabetes mellitus type 2, uncontrolled 250.02 [facility] [place] [address], [place] [id number] March, Diabetes type 2, uncontrolled 250.02 [facility] [address] [facility] [id number], [place] [id number] March, [facility] [address] [facility] [id number][place] [id number] March, [facility] [address] [place] [id number], [place] [id number] Feb, [facility] [place] [facility] [address], [place] [address] Feb, [facility] [place] [facility] [address], [place] [address] Feb, [facility] [id number], [place] [address] Jan, [facility] [place] [facility] [address], [place] [address] Jan, [facility] [place] [facility] [address], [place] [address] Jan, [facility] [id number], [place] [id number] Jan, [facility] [place] [facility] [address], [place] [address] Jan, [facility] [place] [facility] [address], [place] [address] Jan, [facility] [address] [id number], [place] [id number] Jan, [facility] [place] [facility] [address], [place] [address] Jan, [facility] [place] [facility] [address] [id number], [place] [address] Dec, [facility] [address] [id number], [place] [id number] Dec, [facility] [place] [facility] [address], [place] [address] Dec, [facility] [id number], [place] [address] Dec, 2014 [facility] [place] [facility] [address] [facility] [id number], [place] [address] Dec, 2014 [facility] [address] [facility] [id number], [place] [id number] Dec, 2014 [facility] [place] [facility] [address] [facility] [id number], [place] [address] Dec, 2014 [facility] [place] [facility] [address] [facility] [id number], [place] [address] Dec, 2014 [facility] [address] [facility] [id number], [place] [id number] Dec, [facility] [address] [facility] [id number], [place] [id number] Dec, [facility] [place] [facility] [address], [place] [address] Dec, [facility] [place] [facility] [address], [place] [address] Nov, [facility] [place] [facility] [address] [id number], [place] [address] Oct, [facility] [place] [facility] [address] [id number], [place] [address] Oct, [facility] [address] [id number], [place] [id number] Sep, [facility] [place] [facility] [address] [facility] [id number], [place] [address] Sep, [facility] [address] [facility] [id number], [place] 3708[address]894 Sep, [facility] [place] [facility] [address] [facility] [id number], [place] [address] Sep, [facility] [address] [facility] [id number], [place] [id number] Aug, [facility] [place] [facility] [address] [id number], [place] [address] Aug, [facility] [address] [id number], [place] [id number] Aug, [facility] [place] [facility] [address] [facility] [id number] [place] [address] Aug, [facility] [place] [facility] [address] [facility] [id number] [place] [address] Jul, [facility] [place] [facility] [address] [facility] [id number] [place] [address] Jul, [facility] [address] [id number], [place] 8154[address]133 Jul, [facility] [place] [facility] [address] [facility] [id number] [place] [address] Jul, [facility] [address] [facility] [id number][place] [id number] Jun, [facility] [address] [facility] [id number][place] [id number] Jun, [facility] [place] [facility] [address] [facility] [id number], [place] [address] Jun, [facility] [place] [facility] [address] [facility] [id number], [place] [address] Jun, [facility] [address] [facility] [id number][place] [id number] Jun, [facility] [place] [facility] [address] [facility] [id number], [place] [address] Jun, [facility] [address] [facility] [id number][place] [id number] May, [facility] [place] [facility] [address] [facility] [id number], [place] [address] May, [facility] [place] [facility] [address] [facility] [id number], [place] [address] Apr, [facility] [place] [facility] [address] [facility] [id number], [place] [address] Apr, [facility] [address] [facility] [id number][place] [id number] Apr, [facility] [place] [facility] [address] [id number] [place] [address] Apr, [facility] [place] [facility] [address] [id number] [place] [address] Apr, [facility] [address] [id number] [place] [id number] March, [facility] [place] [facility] [address] [id number] [place] [address] March, [facility] [place] [facility] [address] [id number] [place] [address] March, [facility] [address] [id number] [place] [id number] March, [facility] [place] [facility] [address] [facility] [id number] [place] [address] March, [facility] [address] [id number][place] [id number] March, [facility] [place] [facility] [address] [id number] [place] [address] March, [facility] [address] [id number][place] [id number] Feb, [facility] [place] [facility] [address] [id number] [place] [address] Feb, [facility] [place] [facility] [address] [id number], [place] [address] Jan, [facility] [address] [id number][place] [id number] Jan, [facility] [place] [facility] [address] [id number] [place] [address] Jan, [facility] [place] [facility] [address] [id number] [place] [address] Jan, [facility] [address] [id number] [place] [id number] Jan, [facility] [address] [id number][place] [id number] Dec, [facility] [place] [facility] [address] [facility] [id number] [place] [address] Dec, [facility] [place] [facility] [address] [facility] [id number], [place] [address] Dec, [facility] [place] [address] [facility] [id number] [place] [id number] Dec, [facility] [place] [facility] [address] [facility] [id number], [place] [address] Dec, [facility] [place] [address] [facility] [id number] [place] [id number] Dec, [facility] [place] [facility] [id number], [place] [address] Dec, [facility] [place] [facility] [id number], [place] [address] Dec, [facility] [place] [address] [facility] [id number], [place] [address] Dec, [facility] [place] [address] [facility] [id number][place] [address] Nov, [facility] [place] [facility] [id number], [place] [address] Nov, [facility] [place] [facility] [address] [id number], [place] [address] Nov, [facility] [place] [address] [facility] [id number], [place] [address] Nov, [facility] [place] [address] [facility] [id number], [place] [id number] Oct, [facility] [place] [facility] [address] [facility] [id number], [place] [address] Oct, [facility] [place] [address] [facility] [id number], [place] [id number] Oct, [facility] [place] [facility] [address] [id number], [place] [address] Oct, [facility] [address] [facility] [id number], [place] [address] Oct, [facility] [address] [facility] [id number], [place] [address] Oct, [facility] [place] [address] [facility] [id number][place] [address] Oct, [facility] [place] [facility] [address] [facility] [id number], [place] [address] Oct, [facility] [address] [facility] [id number], [place] [address] Sep, [facility] [place] [facility] [address] [facility] [id number], [place] [address] Sep, [facility] [place] [address] [facility] [id number][place] [id number] Sep, [facility] [address] [facility] [id number], [place] [address] Sep, [facility] [address] [facility] [id number], [place] [address] Sep, [facility] [place] [address] [id number], [place] [address] Sep, [facility] [place] [address] [facility] [id number], [place] [id number] Aug, [facility] [place] [facility] [address] [facility] [id number], [place] [address] Aug, [facility] [place] [facility] [address] [facility] [id number], [place] [address] Aug, [facility] [place] [address] [id number], [place] [address]79[address] Aug, [facility] [place] [address] [facility] [id number], [place] [id number] Aug, [facility] [place] [facility] [address] [facility] [id number], [place] [address] Aug, [facility] [place] [facility] [address] [facility] [id number], [place] [address] Aug, [facility] [place] [facility] [address] [facility] [id number], [place] [address] Aug, [facility] [place] [address] [facility] [id number], [place] [id number] Jul, [facility] [id number], [place] [address] Jul, [facility] [place] [facility] [address] [facility] [id number], [place] [address] Jul, [facility] [place] [address] [id number], [place] [address] Jul, [facility] [place] [address] [facility] [id number], [place] [id number] Jul, [facility] [id number], [place] [address] May, [facility] [address] [id number], [place] [address] Apr, [facility] [place] [address] [id number], [place] [address]377[address] Apr, [facility] [place] [address] [id number], [place] [address] Apr, [facility] [id number], [place] [address] March, [facility] [place] [address] [id number], [place] [address] March, [facility] [place] [address] [id number], [place] [address] March, [facility] [place] [address] [id number] [place] [address] March, [facility] [place] [address] [id number], [place] [address] March, [facility] [place] [address] [id number], [place] [id number] March, [facility] [address] [facility] [id number], [place] [address] March, [facility] [address] [facility] [id number], [place] [address] March, [facility] [address] [id number], [place] [address] Feb, [facility] [place] [address] [id number] [place] [address] Feb, [facility] [place] [address] [id number] [place] [id number] Feb, [facility] [place] [address] [id number] [place] [address] Feb, [facility] [id number], [place] [address] Feb, [facility] [place] [address] [id number] [place] [id number] Feb, [facility] [place] [address] [id number] [place] [address] Jan, [facility] [place] [address] [id number] [place] 599[address] Jan, [facility] [place] [address] [id number] [place] [address] Dec, [facility] [place] [address] [id number] [place] [address] Dec, [facility] [address] [id number], [place] [address] Dec, [facility] [place] [address] [id number] [place] [address] Dec, [facility] [place] [address] [id number] [place] [address] Dec, [facility] [place] [address] [id number] [place] [address]77[address] Dec, [facility] [place] [address] [id number] [place] [address] Dec, [facility] [address] [id number], [place] [address] Nov, [facility] [place] [address] [id number] [place] [address] Nov, [facility] [place] [address] [id number] [place] [address] Nov, [facility] [place] [address] [id number] [place] [address] Nov, [facility] [place] [address] [id number] [place] [address] Nov, [facility] [address] [facility] [id number], [place] [address] Oct, [facility] [place] [address] [id number] [place] [address] Oct, [facility] [place] [address] [id number] [place] [address] Oct, [facility] [place] [address] [id number] [place] 113[address] Oct, [facility] [place] [facility] [address] [facility] [id number], [place] [address] Oct, [facility] [place] [facility] [address] [facility] [id number], [place] [address] Oct, [facility] [place] [facility] [address] [facility] [id number], [place] [address] Oct, [facility] [place] [address] [id number], [place] [address]164 Sep, [facility] [place] [facility] [address] [facility] [id number], [place] [address] Sep, [facility] [place] [facility] [address] [facility] [id number], [place] [address] Sep, [facility] [place] [address] [id number] [place] 688[place] Sep, [facility] [place] [address] [id number] [place] 999388723 Sep, [facility] [place] [address] [id number] [place] [address]274[address] Sep, [facility] [place] [facility] [address] [facility] [id number], [place] [address] Sep, [facility] [place] [facility] [address] [facility] [id number], [place] [address] Sep, [facility] [place] [facility] [address] [facility] [id number], [place] [address] Sep, [facility] [place] [address] [id number], [place] 658290879 Aug, [facility] [place] [facility] [address] [facility] [id number], [place] [address] Aug, [facility] [place] [address] [id number], [place] [id number] Aug, [facility] [place] [facility] [address] [facility] [id number], [place] [address] Aug, [facility] [id number], [place] [address] Aug, [facility] [place] [address] [id number], [place] 773681538 Aug, [facility] [place] [address] [id number], [place] [address]68423163 Aug, [facility] [address] [facility] [id number], [place] [address] Aug, [facility] [place] [address] [id number], [place] 849573546 Aug, [facility] [place] [address] [id number], [place] 17[address]003 Jul, [facility] [place] [address] [id number], [place] 967058554 Jun, [facility] [place] [address] [id number] [place] 316[address] May, [facility] [place] [address] [id number], [place] 807724942 May, [facility] [place] [address] [id number], [place] 880[address]1200 May, [facility] [place] [address] [id number] [place] 333395969 May, [facility] [place] [address] [id number] [place] 407604170 May, [facility] [place] [address] [id number] [place] 767501814 May, [facility] [place] [address] [id number] [place] 423524568 May, [facility] [place] [address] [id number] [place] 29[place]25835 Apr, [facility] [place] [address] [id number] [place] 853534730 Apr, [facility] [place] [address] [id number] [place] 237793881 Apr, [facility] [place] [address] [id number] [place] 653013086 Apr, [facility] [place] [address] [id number] [place] 035533641 Apr, [facility] [place] [address] [id number] [place] 725465971 Apr, [facility] [place] [address] [id number] [place] 473857814 March, [facility] [place] [address] [id number] [place] 250260140 March, [facility] [place] [address] [id number] [place] 10945[address] Feb, [facility] [place] [address] [id number] [place] 871774423 Feb, [facility] [place] [address] [id number] [place] 316047415 Feb, [facility] [place] [address] [id number] [place] 200030955 Jan, [facility] [place] [address] [id number] [place] 289703298 Jan, [facility] [place] [address] [id number] [place] 025437574 Jan, [facility] [place] [address] [id number] [place] 243313490 Jan, [facility] [place] [address] [id number] [place] 17[place] Dec, [facility] [place] [facility] [address] [id number], [place] [address] Dec, [facility] [place] [address] [id number] [place] 279117737 Dec, [facility] [place] [address] [id number] [place] 74597[address] Nov, [facility] [place] [address] [id number] [place] 152450599 Nov, [facility] [place] [address] [facility] [id number] [place] 029680286 Nov, [facility] [place] [facility] [address] [facility] [id number], [place] [address] Oct, [facility] [place] [facility] [id number] [place] [address] Oct, [facility] [place] [facility] [id number], [place] [address] Oct, [facility] [place] [facility] [id number], [place] [address] Aug, [facility] [place] [facility] [id number], [place] [address] Aug, [facility] [place] [facility] [id number], [place] [address] Aug, [facility] [place] [facility] [id number], [place] [address] March, [facility] [place] [facility] [id number], [place] [address] Oct, [facility] [place] [facility] [address] [id number], [place] [address] Oct, [facility] [place] [facility] [id number], [place] [address] Sep, [facility] [place] [facility] [address] [facility] [id number] [place] [address] 19 Sep, 2010 [facility] [address] [id number] [place] [address] Sep, [facility] [place] [facility] [address] [id number] [place] [address] Aug, [facility] [address] [id number] [place] [address] Aug, [facility] [place] [facility] [address] [id number] [place] [address] 17 Jun, 2010 [facility] [address] [id number] [place] [address], [place] [address] May, [facility] [address] [id number] [place] [address] Jan, [facility] [address] [id number] [place] [address] Nov, [facility] [address] [id number] [place] [address] Oct, [facility] [address] [id number] [place] [address] Sep, [facility] [address] [facility] [id number] [place] [address] Sep, [facility] [place] [facility] [address] [id number] [place] [address] Sep, [facility] [place] [facility] [address] [id number], [place] [address] Sep, [facility] [place] [facility] [address] [id number] [place] [address] Sep, [facility] [place] [facility] [address] [id number] [place] [address] 30 Aug, 2009 [facility] [place] [facility] [address] [id number] [place] [address] Aug, [facility] [address] [facility] [id number] [place] [address] Jul, [facility] [address] [facility] [id number] [place] [address] Jun, IMMUNIZATIONS No Known Immunizations SOCIAL HISTORY Never Assessed REASON FOR VISIT PLAN OF CARE VITAL SIGNS Height 67 in 2015-01-29 Weight 192.6 lbs 2015-01-29 Temperature 97.8 degrees Fahrenheit 2015-01-29 Heart Rate 84 bpm 2015-01-29 Respiratory Rate 16 2015-01-29 Blood pressure systolic 122 mmHg 2015-01-29 Blood pressure diastolic 84 mmHg 2015-01-29 MEDICATIONS Unknown Medications RESULTS No Results PROCEDURES Procedure Date Ordered Result Body Site MAMMOGRAM, SCREENING January 29, 2015 INSTRUCTIONS MEDICATIONS ADMINISTERED No Known Medications MEDICAL [...] 08/2016 Hospitalization History chest pain ED visit [facility], pt scheduled for heart cath on May Hospitalization History [place] 2012 Hospitalization History Chest pain-[facility] 12/22/16
--- OUTSIDE RECORDS SUMMARY | 2019-05-21 00:08 | XMS REPORT ---
Author Author Migration, Doctor Organization [facility] Address Unknown Phone Unavailable Care Team Providers Care Clinical Trial Coordinator Name Role Phone Migration, Doctor Unavailable Unavailable PROBLEMS Type Condition ICD9-CM Code [id number] Code Onset Dates Condition Status SNOMED Code Problem Serum creatinine raised R79.89 Active 879911826 Problem Episodic mood disorder F39 Active 41503191 Problem Generalized anxiety disorder F41.1 Active 76496646 Problem Lumbago with sciatica, left side M54.42 Active 500552958 Problem Dyslipidemia E78.5 Active 155232096 Problem Other chronic pain G89.29 Active 68126072 Problem Polyneuropathy associated with underlying disease G63 Active 684543293 Problem Syncope, unspecified syncope type R55 Active 674707889 Problem Recurrent major depressive disorder, in partial remission F33.41 Active 00378850 Problem Other seasonal allergic rhinitis J30.2 Active 640455074 Problem Hammertoe of left foot M20.42 Active 458037317 Problem Lumbago with sciatica, right side M54.41 Active 005259346 Problem 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 Active 045854768 Problem Type 2 diabetes mellitus with diabetic polyneuropathy E11.42 Active 69953100 Problem Stage 2 chronic kidney disease N18.2 Active 805337024 Problem Vitamin D deficiency E55.9 Active 08347245 ALLERGIES No Information ENCOUNTERS Encounter Location Date Diagnosis [place] [id number] [address] May, [address] [address] Apr, [place] [address] [place] [address] Apr, RUQ abdominal pain R10.11 and Rib pain on right side R07.81 [place] [id number] [address] Apr, RUQ abdominal pain R10.11 and Rib pain on right side R07.81 [facility] [address] [place] [address] Apr, [facility] [id number] [place] [address] March, Right foot pain M79.671 [facility] [id number] [place] [address] March, USP current use of insulin Z79.4 [facility] [id number] [place] [address] Feb, [facility] [id number] [place] [address] Jan, 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 [facility] [id number] [place] [address] Jan, [facility] [id number] [place] [address] Jan, Type 2 diabetes mellitus with diabetic polyneuropathy E11.42 [facility] [id number] [place] [address] Jan, [facility] [id number] [place] [address] Jan, Type 2 diabetes mellitus with diabetic polyneuropathy E11.42 [facility] [id number] [place] [address] Dec, 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 [facility] [id number] [place] [address] Dec, 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 [facility] [address] [place] [address] Dec, [facility] [id number] [place] [address] Nov, Hammertoe of left foot M20.42 ; Peroneal tendonitis of left lower extremity M76.72 ; Callus of foot L84 and Type 2 diabetes mellitus with diabetic polyneuropathy E11.42 [place] [id number] [place] [address] Nov, [place] [address] [address] Nov, Encounter for immunization Z23 [place] [address] [address] Oct, [place] [address] [address] Oct, [place] [address] [address] Oct, Acute pancreatitis, unspecified complication status, unspecified pancreatitis type K85.90 [place] [id number] [place] [address] Sep, 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 [place] [id number] [place] [address] Sep, [place] [id number] [place] [address] Sep, Type 2 diabetes mellitus with diabetic polyneuropathy E11.42 ; Stage 2 chronic kidney disease N18.2 and Recurrent major depressive disorder, in partial remission F33.41 [place] [id number] [place] [address] Sep, USP current use of insulin Z79.4 [place] [address] [address] Sep, Acute maxillary sinusitis, recurrence not specified J01.00 and Bronchiolitis J21.9 [place] [id number] [place] [address] Jul, [place] [address] [address] Jun, Type 2 diabetes mellitus with diabetic polyneuropathy E11.42 ; Open wound T14.8XXA ; USP current use of insulin Z79.4 ; Stage 2 chronic kidney disease N18.2 and Episodic mood disorder F39 [place] [id number] [place] [address] May, [place] [id number] [place] [address] March, [place] [id number] [place] [address] March, Type 2 diabetes mellitus with diabetic [...] and Non-adherence to medical treatment Z91.[address] [id number] [id number] Feb, Dental examination Z01.20 [place] [address] [place] [address] Feb, Labile hypertension R09.89 ; Syncope, unspecified syncope type R55 ; Chest pain, unspecified type R07.9 and Dyslipidemia E78.5 [place] [address] [place] [address] Feb, [place] [id number] [place] [address] Jan, [address] [id number] [place] [id number] Jan, Dental examination Z01.20 [place] [id number] [place] [address] Jan, Acute non-recurrent maxillary sinusitis J01.00 and Dyslipidemia E78.5 [facility] [address] [facility] [address] [id number] [place] [id number] Jan, Dental examination Z01.20 and Dental caries K02.9 [facility] [address] [place] [address] [place] [id number] [id number] Jan, [address] [id number] [place] [id number] Dec, Dental examination Z01.20 [facility] [id number] [place] [address] Dec, Seasonal allergic rhinitis, unspecified trigger J30.2 [place] [id number] [place] [address] Nov, [place] [id number] [place] [address] Nov, Type 2 diabetes mellitus with diabetic polyneuropathy E11.42 ; Dyslipidemia E78.5 ; Lumbago with sciatica, right side M54.41 ; Lumbago with sciatica, left side M54.42 ; 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 ; Polyneuropathy associated with underlying disease G63 ; Stage 2 chronic kidney disease N18.2 and Syncope, unspecified syncope type R55 [place] [address] [place] [address] Oct, Type 2 diabetes mellitus with diabetic polyneuropathy E11.42 ; Acute otitis externa of left ear, unspecified type H60.502 ; Overweight (BMI 25.0- 29.9) E66.3 ; Dyslipidemia E78.5 and Polyneuropathy associated with underlying disease G63 [place] [id number] [place] [address] Sep, [place] [id number] [place] [address] Aug, Abnormal mammogram R92.8 [place] [id number] [place] [address] Aug, Type 2 diabetes mellitus with diabetic polyneuropathy E11.42 [facility] [id number] [place] [address] Aug, [facility] [id number] [place] [address] Aug, Type 2 diabetes mellitus with diabetic polyneuropathy E11.42 ; Syncope, unspecified syncope type R55 ; Other chronic pain G89.29 and Encounter for immunization Z23 [facility] [id number] [place] [address] Aug, Type 2 diabetes mellitus with diabetic polyneuropathy E11.42 [facility] [id number] [place] [address] Jul, Type 2 diabetes mellitus with diabetic polyneuropathy E11.42 and Serum creatinine raised R79.89 [place] [id number] [place] [address] Jul, Type 2 diabetes mellitus with diabetic polyneuropathy E11.42 and Serum creatinine raised R79.89 [facility] [id number] [place] [address] May, [facility] [address] [place] [address] May, [facility] [id number] [place] [address] May, Head injury, initial encounter S09.90XA ; Facial pain R51 ; Neck pain M54.2 and Fall, initial encounter W19.XXXA [facility] [id number] [place] [address] May, Type 2 diabetes mellitus with diabetic polyneuropathy E11.42 [facility] [address] [place] [address] May, [facility] [id number] [address] May, Type 2 diabetes mellitus with diabetic polyneuropathy E11.42 [place] [id number] [place] [address] May, Dyslipidemia E78.5 ; 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 ; Type 2 diabetes mellitus with diabetic polyneuropathy E11.42 ; Generalized anxiety disorder F41.1 and Other seasonal allergic rhinitis J30.2 [place] [id number] [place] [address] Apr, Type 2 diabetes mellitus with diabetic polyneuropathy E11.42 [place] [id number] [place] [address] March, [place] [id number] [place] [address] March, Abnormal mammogram R92.8 [place] [id number] [place] [address] Feb, Abnormal mammogram R92.8 [place] [id number] [place] [address] Feb, Diabetes type 2, uncontrolled E11.65 [place] [address] [place] [address] Feb, Screening for breast cancer Z12.39 [place] [id number] [place] [address] Jan, Screening for breast cancer Z12.39 [place] [address] [place] [address] Jan, Type 2 diabetes mellitus with diabetic polyneuropathy E11.42 ; USP current use of insulin Z79.4 ; Other viral agents as the cause of diseases classified elsewhere B97.89 and Acute upper respiratory infection, unspecified J06.9 [place] [address] [place] [address] Jan, [place] [address] [place] [address] 17 Dec, 2016 Diabetes type 2, uncontrolled E11.65 ; Dyslipidemia E78.5 ; Generalized anxiety disorder F41.1 ; Depression, unspecified depression type F32.9 ; 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 and Polyneuropathy associated with underlying disease G63 [place] [id number] [place] [address] Dec, [place] [id number] [place] [address] Dec, [place] [id number] [place] [address] Dec, [place] [id number] [place] [address] Dec, [place] [id number] [place] [address] Oct, Well woman exam Z01.419 ; Screening for breast cancer Z12.39 ; USP current use of insulin Z79.4 ; Type 2 diabetes mellitus without complications E11.9 and Encounter for immunization Z23 [place] [id number] [place] [address] Sep, [place] [address] [place] [address] Sep, Diabetes type 2, uncontrolled E11.65 ; Dyslipidemia E78.5 and Depression, unspecified depression type F32.9 [place] [id number] [place] [address] Aug, Diabetes type 2, uncontrolled E11.65 ; Encounter for immunization Z23 ; Nasal congestion R09.81 and Ear pressure, bilateral H93.8X3 [place] [address] [place] [address] 08 Jul, 2016 Eustachian tube dysfunction, left H69.82 [place] [id number] [address] Jun, [facility] [id number] [place] [address] Jun, Hospital discharge follow-up Z09 ; Syncope, unspecified syncope type R55 and Acute suppurative otitis media of left ear without spontaneous rupture of tympanic membrane, recurrence not specified H66.002 [place] [id number] [place] [address] May, [place] [id number] [place] [address] May, [place] [id number] [place] [address] May, [place] [id number] [place] [address] May, Diabetes type 2, uncontrolled E11.65 ; [...] disturbance G47.9 and Generalized anxiety disorder F41.1 [place] [address] [place] [address] March, [address] [place] [id number] March, Syncope, unspecified syncope type R55 and Depression, unspecified depression type F32.9 [place] [id number] [place] [phone] March, Orthostatic hypotension I95.1 [address] [place] [phone] March, [place] [id number] [place] [address] March, [facility] [address] [id number] [id number] Feb, [facility] [address] [id number] [place] [id number] Feb, Dental examination Z01.20 [facility] [address] [id number][place] [id number] Jan, [facility] [address] [id number][place] [id number] Jan, [facility] [address] [id number][place] [id number] Dec, Diabetes type 2, uncontrolled E11.65 [facility] [id number] [place] [id number] Nov, [facility] [address] [facility] [address] [id number] [place] [phone] Nov, Encounter for dental examination Z01.20 [facility] [id number] [place] [id number] Nov, Dental examination Z01.20 [facility] [address] [facility] [id number][place] [phone] Sep, Diabetes type 2, uncontrolled E11.65 [facility] [address] [facility] [address] [id number] [place] [id number] Sep, Encounter for dental examination Z01.20 and Dental caries, unspecified K02.9 [facility] [address] [id number][place] [id number] Sep, Bipolar 2 disorder F31.81 [facility] [address] [id number][place] [id number] Aug, [facility] [address] [id number], [place] [id number] Aug, Follow up V67.[address] [facility] [address] [facility] [id number] [address] Jul, Bipolar disorder, unspecified 296.80 [facility] [address] [id number], [place] [id number] Jul, Thyroid enlarged 240.9 and Bipolar disorder, unspecified 296.80 [facility] [id number], [place] [address] Jun, Diabetes mellitus type 2, uncontrolled 250.02 ; Bipolar disorder, unspecified 296.80 and Rash 782.1 [facility] [id number], [place] [id number] Jun, [facility] [id number] [place] [phone] May, Urinary tract infection 599.0 [facility] [id number] [place] [id number] May, Urinary tract infection 599.0 [facility] [id number] [place] [address] [id number] May, [facility] [id number] [place] [address] [id number] May, Diabetes mellitus type 2, uncontrolled 250.02 and Pica in adults 307.52 [facility] [id number], [place] [id number] Apr, Follow up V67.9 and Diabetes mellitus type 2, uncontrolled 250.02 [facility] [id number], [place] [id number] Apr, [facility] [address] [address] Apr, [facility] [id number], [place] [id number] Apr, Hyperlipidemia 272.4 [facility] [id number], [place] [id number] March, Diabetes type 2, uncontrolled 250.02 [facility] [id number], [place] [id number] March, Diabetes mellitus type 2, uncontrolled 250.02 [facility] [id number], [place] [id number] March, Diabetes type 2, uncontrolled 250.02 [facility] [id number], [place] [id number] March, [facility] [address] [facility] [id number] [place] [id number] March, [facility] [address] [facility] [id number] [place] [id number] Feb, [facility] [place] [facility] [address] [address] Feb, [facility] [place] [facility] [address] [address] Feb, [facility] [address] [facility] [id number], [place] [id number] Jan, [facility] [place] [facility] [address] [address] Jan, [facility] [place] [facility] [address] [address] Jan, [facility] [id number], [place] [id number] Jan, [facility] [place] [facility] [address] [address] Jan, [facility] [place] [facility] [address]100[place] [address] Jan, [facility] [id number], [place] [id number] Jan, [facility] [place] [facility] [address] [address] Jan, [facility] [place] [facility] [address]100[place] [address] Dec, [facility] [address] [facility] [id number], [place] [id number] Dec, [facility] [place] [facility] [address]100[place] [address] Dec, [facility] [address] [id number], [place] [id number] 16 Dec, 2014 [facility] [place] [facility] [address]100[place] [address] Dec, 2014 [facility] [address] [facility] [id number] [place] [id number] Dec, 2014 [facility] [place] [facility] [address] [facility] [id number] [place] [address] Dec, 2014 [facility] [place] [facility] [address] [place] [address] Dec, 2014 [facility] [address] [facility] [id number], [place] [id number] Dec, 2014 [facility] [address] [facility] [id number] [place] [id number] Dec, [facility] [place] [facility] [address]005[address]100[place] [address] Dec, [facility] [place] [facility] [address]100[place] [address] Nov, [facility] [place] [facility] [address]100[place] [address] Oct, [facility] [place] [facility] [address]100[place] [address] Oct, [facility] [address] [id number], [place] [id number] Sep, [facility] [place] [facility] [address]005[address]100[place] [address] Sep, [facility] [address] [facility] [id number], [place] [id number] Sep, [facility] [place] [facility] [address] [facility] [id number] [place] [address] Sep, [facility] [address] [facility] [id number], [place] [id number] Aug, [facility] [place] [facility] [address] [facility] [id number] [place] [address] Aug, [facility] [id number], [place] [id number] Aug, [facility] [place] [facility] [address] [id number] [place] [address] Aug, [facility] [place] [facility] [address] [facility] [id number] [place] [address] Jul, [facility] [place] [facility] [address] [facility] [id number] [place] [address] Jul, [facility] [address] [id number] [place] [id number] Jul, [facility] [place] [facility] [address] [id number] [place] [address] Jul, [facility] [address] [id number] [place] [id number] Jun, [facility] [address] [facility] [id number] [place] [id number] Jun, [facility] [place] [facility] [address] [facility] [id number] [address] Jun, [facility] [place] [facility] [address] [facility] [id number] [place] [address] Jun, [facility] [address] [facility] [id number][place] [id number] Jun, [facility] [place] [facility] [address] [facility] [id number] [place] [address] Jun, [facility] [address] [facility] [id number][place] [id number] May, [facility] [place] [facility] [address] [facility] [id number] [place] [address] May, [facility] [place] [facility] [address] [facility] [id number] [place] [address] Apr, [facility] [place] [facility] [address] [facility] [id number] [place] [address] Apr, [facility] [address] [facility] [id number][place] [id number] Apr, [facility] [place] [facility] [address] [facility] [id number] [place] [address] Apr, [facility] [place] [facility] [address] [id number] [place] [address] Apr, [facility] [address] [facility] [id number] [place] [id number] March, [facility] [place] [facility] [address] [facility] [id number] [place] [address] March, [facility] [place] [facility] [address] [facility] [id number] [place] [address] March, [facility] [address] [facility] [id number] [place] [id number] March, [facility] [place] [facility] [address] [facility] [id number] [place] [address] March, [facility] [address] [facility] [id number] [place] [id number] March, [facility] [place] [facility] [address] [facility] [id number] [place] [address] March, [facility] [address] [facility] [id number] [place] [id number] Feb, [facility] [place] [facility] [address] [facility] [id number] [place] [address] Feb, [facility] [place] [facility] [address] [facility] [id number] [place] [address] Jan, [facility] [address] [facility] [id number][place] [id number] Jan, [facility] [place] [facility] [address] [id number] [place] [address] Jan, [facility] [place] [facility] [address] [facility] [id number] [place] [address] Jan, [facility] [place] [address] [facility] [id number] [place] [id number] Jan, [facility] [address] [facility] [id number] [place] [id number] Dec, [facility] [place] [facility] [address] [facility] [id number] [place] [address] Dec, [facility] [address] [facility] [id number] [place] [address] Dec, [facility] [address] [facility] [id number][place] [id number] Dec, [facility] [address] [facility] [id number] [place] [address] Dec, [facility] [address] [facility] [id number][place] [id number] Dec, [facility] [place] [facility] [address] [facility] [id number] [address] Dec, [facility] [place] [facility] [address] [id number] [address] Dec, [facility] [id number][place] [id number] Dec, [facility] [address] [id number][place] [id number] Nov, [facility] [address]00565100[place] [address] Nov, [facility] [place] [facility] [address]00565100[place] [address] Nov, [facility] [address] [id number][place] [id number] Nov, [facility] [address] [facility] [id number][place] [id number] Oct, [facility] [place] [facility] [address] [facility] [id number] [place] [address] Oct, [facility] [address] [facility] [id number][place] [address] Oct, [facility] [place] [facility] [address] [facility] [id number] [place] [address] Oct, [facility] [place] [facility] [address]00565100[place] [address] Oct, [facility] [place] [facility] [address] [id number] [place] [address] Oct, [facility] [address] [id number] [place] [id number] Oct, [facility] [address] [id number] [place] [address] Oct, [facility] [place] [facility] [address] [id number] [place] [address] Sep, [facility] [address] [id number] [place] [address] Sep, [facility] [address] [id number][place] [id number] Sep, [facility] [address] [facility] [id number] [place] [address] Sep, [facility] [address] [facility] [id number] [place] [address] Sep, [facility] [address] [id number][place] [address] Sep, [facility] [address] [id number][place] [address]893[address] Aug, [facility] [address] [id number] [place] [address] Aug, [facility] [place] [facility] [address] [id number] [place] [address] Aug, [facility] [address] [id number][place] [id number] Aug, [facility] [address] [id number][place] [id number] Aug, [facility] [place] [facility] [address] [facility] [id number] [place] [address] Aug, [facility] [place] [facility] [address] [facility] [id number] [place] [address] Aug, [facility] [place] [facility] [address] [facility] [id number] [place] [address] Aug, [facility] [address] [facility] [id number] [place] [id number] Jul, [facility] [address] [facility] [id number] [place] [address] Jul, [facility] [address] [facility] [id number] [place] [address] Jul, [facility] [address] [facility] [id number][place] [address] Jul, [facility] [address] [facility] [id number] [place] [id number] Jul, [facility] [address]00565100[place] [address] May, [facility] [address]00565100[place] [address] Apr, [facility] [address] [id number][place] [id number] Apr, [facility] [address] [facility] [id number] [place] [id number] Apr, [facility] [address]00565100[place] [address] March, [facility] [address] [id number][place] [id number] March, [facility] [address] [id number][place] [address] March, [facility] [address] [id number], [place] 888862536 March, [facility] [address] [id number] [place] [id number] March, [facility] [address] [facility] [id number][place] [id number] March, [facility] [place] [facility] [address] [facility] [id number] [place] [address] March, [facility] [place] [facility] [address]00565100[place] [address] March, [facility] [address]00565100[place] [address] Feb, [facility] [address] [id number] [place] [id number] Feb, [facility] [address] [id number] [place] [id number] Feb, [facility] [address] [id number] [place] [id number] Feb, [facility] [address] [facility] [id number] [place] [address] Feb, [facility] [address] [id number] [place] 736[address] Feb, [facility] [address] [id number] [place] 64687[address] Jan, [facility] [address] [id number] [place] [id number] Jan, [facility] [address] [id number] [place] [address] Dec, [facility] [address] [id number] [place] [address] Dec, [facility] [address]00565100[place] [address] Dec, [facility] [address] [id number] [place] [id number] Dec, [facility] [address] [id number] [place] [address] Dec, [facility] [address] [id number] [place] [id number] Dec, [facility] [address] [id number] [place] [id number] Dec, [facility] [address] [facility] [id number] [place] [address] Nov, [facility] [id number], [place] 463423190 Nov, [facility] [address] [id number] [place] [id number] Nov, [facility] [address] [id number] [place] [address] Nov, [facility] [address] [id number] [place] [id number] Nov, [facility] [address] [id number] [place] [address] Oct, [facility] [address] [id number] [place] [address] Oct, [facility] [address] [id number] [place] [id number] Oct, [facility] [address] [id number] [place] [id number] Oct, [facility] [address] [facility] [id number] [place] [address] Oct, [facility] [address] [facility] [id number] [place] [address] Oct, [facility] [address] [facility] [id number] [place] [address] Oct, [facility] [address] [id number], [place] 724865936 Sep, [facility] [address] [facility] [id number] [place] [address] Sep, [facility] [address] [facility] [id number] [place] [address] Sep, [facility] [address] [id number], [place] 984260951 Sep, [facility] [address] [id number] [place] [id number] Sep, [facility] [address] [id number] [place] 813151696 Sep, [facility] [address] [facility] [id number] [place] [address] Sep, [facility] [place] [facility] [address] [facility] [id number] [place] [address] Sep, [facility] [place] [facility] [address] [facility] [id number] [place] [address] Sep, [facility] [address] [id number], [place] 852295089 Aug, [facility] [place] [facility] [address] [facility] [id number] [place] [address] Aug, [facility] [address] [id number], [place] [id number] Aug, [facility] [place] [facility] [address] [facility] [id number] [place] [address] Aug, [facility] [place] [facility] [address] [facility] [id number] [place] [address] Aug, [facility] [address] [id number], [place] 203031809 Aug, [facility] [address] [id number], [place] [id number] Aug, [facility] [address] [facility] [id number] [place] [address] Aug, [facility] [address] [id number], [place] [id number] Aug, [facility] [address] [id number], [place] 265432529 Jul, [facility] [address] [id number], [place] 500515239 Jun, [facility] [address] [id number], [place] 318522580 May, [facility] [address] [id number], [place] 131171854 May, [facility] [address] [id number], [place] 712625580 May, [facility] [address] [id number], [place] 407576810 May, [facility] [address] [id number] [place] [address] [id number] May, [facility] [address] [id number] [place] [id number] May, [facility] [place] [address] [id number] [place] 669017340 May, [facility] [place] [address] [id number] [place] [id number] Apr, [facility] [place] [address] [id number] [place] [id number] Apr, [facility] [place] [address] [id number] [place] 195900597 Apr, [facility] [place] [address] [id number] [place] 011484900 Apr, [facility] [place] [address] [id number] [place] [id number] Apr, [facility] [place] [address] [id number] [place] 827251599 Apr, [facility] [place] [address] [id number] [place] 449164669 March, [facility] [place] [address] [id number] [place] 608900653 March, [facility] [place] [address] [id number] [place] 637087291 Feb, [facility] [place] [address] [id number] [place] 708211092 Feb, [facility] [place] [address] [id number] [place] [id number] Feb, [facility] [place] [address] [id number] [place] 015411707 Jan, [facility] [place] [address] [id number] [place] [id number] Jan, [facility] [place] [address] [id number] [place] [id number] Jan, [facility] [place] [address] [id number] [place] 050851009 Jan, [facility] [place] [address] [id number] [place] [id number] Dec, [facility] [place] [facility] [address] [id number] [place] [address] Dec, [facility] [address] [id number] [place] [id number] Dec, [facility] [address] [facility] [id number] [place] [id number] Nov, [facility] [address] [facility] [id number] [place] [id number] Nov, [facility] [address] [id number] [place] [id number] Nov, [facility] [address] [facility] [id number] [place] [address] Oct, [facility] [place] [facility] [address] [facility] [id number] [place] [address] Oct, [facility] [place] [facility] [id number] [place] [address] Oct, [facility] [place] [facility] [address]00565100[place] [address] Aug, [facility] [place] [facility] [address]00565100[place] [address] Aug, [facility] [place] [facility] [address]00565100[place] [address] Aug, [facility] [place] [facility] [address]00565100[place] [address] March, [facility] [place] [facility] [address] [facility] [id number] [place] [address] Oct, [facility] [place] [facility] [address] [id number] [address] Oct, [facility] [place] [facility] [address] [facility] [id number] [place] [address] Sep, [facility] [place] [facility] [address]00565100[place] [address] Sep, [facility] [place] [facility] [address] [id number] [place] [address] Sep, [facility] [place] [facility] [address] [id number] [place] [address] Aug, [facility] [place] [facility] [address] [id number] [place] [address] Aug, [facility] [place] [facility] [address] [id number] [place] [address] Jun, [facility] [place] [facility] [address] [id number] [place] [address] May, [facility] [place] [facility] [address] [id number] [place] [address] Jan, [facility] [place] [facility] [address] [id number] [place] [address] Nov, [facility] [place] [facility] [address] [id number] [place] [address] Oct, [facility] [place] [facility] [address] [id number] [place] [address] Sep, [facility] [place] [facility] [address] [id number] [place] [address] Sep, [facility] [place] [facility] [address] [facility] [id number] [place] [address] Sep, [facility] [place] [facility] [address] [id number] [place] [address] Sep, [facility] [place] [facility] [address] [id number] [place] [address] Sep, [facility] [place] [facility] [address] [id number] [place] [address] 30 Aug, 2009 [facility] [place] [facility] [address] [id number] [place] [address] Aug, [facility] [place] [facility] [address] [id number] [place] [address] Jul, [facility] [address] [facility] [id number] [place] [address] Jun, IMMUNIZATIONS No Known Immunizations SOCIAL HISTORY Never Assessed REASON FOR VISIT PLAN OF CARE VITAL SIGNS Blood pressure systolic 116 mmHg 2015-01-25 Blood pressure diastolic 78 mmHg 2015-01-25 MEDICATIONS Unknown Medications RESULTS No Results PROCEDURES Procedure Date Ordered Result Body Site DEBRIDE NAIL, 1-5 January 25, 2015 INSTRUCTIONS MEDICATIONS ADMINISTERED No Known Medications [...] 08/2016 Hospitalization History chest pain ED visit [facility], pt scheduled for heart cath on May Hospitalization History Ana 2012 Hospitalization History Chest pain-[facility] 12/22/16
--- OUTSIDE RECORDS SUMMARY | 2019-05-21 00:09 | XMS REPORT ---
Author Author Migration, Doctor Organization [facility] Address Unknown Phone Unavailable Care Team Providers Care Blade Groover Name Role Phone Migration, Doctor Unavailable Unavailable PROBLEMS Type Condition ICD9-CM Code KIX99-DP Code Onset Dates Condition Status SNOMED Code Problem Serum creatinine raised R79.89 Active 380405905 Problem Episodic mood disorder F39 Active 64903641 Problem Generalized anxiety disorder F41.1 Active 31415691 Problem Lumbago with sciatica, left side M54.42 Active 261658712 Problem Dyslipidemia E78.5 Active 528325212 Problem Other chronic pain G89.29 Active 76753784 Problem Polyneuropathy associated with underlying disease G63 Active 870949619 Problem Syncope, unspecified syncope type R55 Active 437661165 Problem Recurrent major depressive disorder, in partial remission F33.41 Active 20264656 Problem Other seasonal allergic rhinitis J30.2 Active 983562680 Problem Hammertoe of left foot M20.42 Active 133336881 Problem Lumbago with sciatica, right side M54.41 Active 576439508 Problem 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 Active 527151210 Problem Type 2 diabetes mellitus with diabetic polyneuropathy E11.42 Active 98882229 Problem Stage 2 chronic kidney disease N18.2 Active 012086619 Problem Vitamin D deficiency E55.9 Active 19397485 ALLERGIES No Information ENCOUNTERS Encounter Location Date Diagnosis [place] [id number], [place] [address] May, [address] [address] Apr, [place] [address] [place] [address] Apr, RUQ abdominal pain R10.11 and Rib pain on right side R07.81 [place] [id number], [place] [address] Apr, RUQ abdominal pain R10.11 and Rib pain on right side R07.81 [facility] [id number] [place] [address] Apr, [facility] [id number] [place] [address] March, Right foot pain M79.671 [facility] [id number] [place] [address] March, senior living current use of insulin Z79.4 [facility] [id number] [place] [address] Feb, [facility] [id number] [place] [address] Jan, 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 [facility] [id number] [place] [address] Jan, [facility] [id number] [place] [address] Jan, Type 2 diabetes mellitus with diabetic polyneuropathy E11.42 [facility] [id number] [place] [address] Jan, [facility] [id number] [place] [address] Jan, Type 2 diabetes mellitus with diabetic polyneuropathy E11.42 [facility] [id number] [place] [address] Dec, 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 [facility] [id number] [place] [address] Dec, 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 [facility] [id number] [place] [address] Dec, [facility] [id number] [place] [address] Nov, Hammertoe of left foot M20.42 ; Peroneal tendonitis of left lower extremity M76.72 ; Callus of foot L84 and Type 2 diabetes mellitus with diabetic polyneuropathy E11.42 [place] [id number] [place] [address] Nov, [place] [address] [address] Nov, Encounter for immunization Z23 [place] [address] [address] Oct, [place] [address] [address] Oct, [place] [address] [address] Oct, Acute pancreatitis, unspecified complication status, unspecified pancreatitis type K85.90 [place] [id number] [place] [address] Sep, 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 [place] [id number] [place] [address] Sep, [place] [id number] [place] [address] Sep, Type 2 diabetes mellitus with diabetic polyneuropathy E11.42 ; Stage 2 chronic kidney disease N18.2 and Recurrent major depressive disorder, in partial remission F33.41 [place] [id number] [place] [address] Sep, senior living current use of insulin Z79.4 [place] [address] [address] Sep, Acute maxillary sinusitis, recurrence not specified J01.00 and Bronchiolitis J21.9 [place] [id number] [place] [address] Jul, [place] [address], [place] [address] Jun, Type 2 diabetes mellitus with diabetic polyneuropathy E11.42 ; Open wound T14.8XXA ; senior living current use of insulin Z79.4 ; Stage 2 chronic kidney disease N18.2 and Episodic mood disorder F39 [place] [id number] [place] [address] May, [place] [id number] [place] [address] March, [place] [id number] [place] [address] March, Type 2 diabetes mellitus with diabetic [...] H60.502 and Non-adherence to medical treatment Z91.[address] [id number] [id number] Feb, Dental examination Z01.20 [place] [id number] [place] [address] Feb, Labile hypertension R09.89 ; Syncope, unspecified syncope type R55 ; Chest pain, unspecified type R07.9 and Dyslipidemia E78.5 [place] [address] [place] [address] Feb, [place] [id number] [place] [address] Jan, [address] [id number] [id number] Jan, Dental examination Z01.20 [place] [id number] [place] [address] Jan, Acute non-recurrent maxillary sinusitis J01.00 and Dyslipidemia E78.5 [facility] [address] [facility] [address] [id number] [id number] Jan, Dental examination Z01.20 and Dental caries K02.9 [facility] [address] [place] [address] [place] [id number] [id number] Jan, [address] [id number] [id number] Dec, Dental examination Z01.20 [facility] [id number] [place] [address] Dec, Seasonal allergic rhinitis, unspecified trigger J30.2 [place] [id number] [place] [address] Nov, [place] [id number] [place] [address] Nov, Type 2 diabetes mellitus with diabetic polyneuropathy E11.42 ; Dyslipidemia E78.5 ; Lumbago with sciatica, right side M54.41 ; Lumbago with sciatica, left side M54.42 ; 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 ; Polyneuropathy associated with underlying disease G63 ; Stage 2 chronic kidney disease N18.2 and Syncope, unspecified syncope type R55 [place] [id number] [place] [address] Oct, Type 2 diabetes mellitus with diabetic polyneuropathy E11.42 ; Acute otitis externa of left ear, unspecified type H60.502 ; Overweight (BMI 25.0- 29.9) E66.3 ; Dyslipidemia E78.5 and Polyneuropathy associated with underlying disease G63 [place] [id number] [place] [address] Sep, [place] [id number] [place] [address] Aug, Abnormal mammogram R92.8 [place] [id number] [place] [address] Aug, Type 2 diabetes mellitus with diabetic polyneuropathy E11.42 [facility] [id number] [place] [address] Aug, [facility] [id number] [place] [address] Aug, Type 2 diabetes mellitus with diabetic polyneuropathy E11.42 ; Syncope, unspecified syncope type R55 ; Other chronic pain G89.29 and Encounter for immunization Z23 [facility] [id number] [place] [address] Aug, Type 2 diabetes mellitus with diabetic polyneuropathy E11.42 [facility] [id number] [place] [address] Jul, Type 2 diabetes mellitus with diabetic polyneuropathy E11.42 and Serum creatinine raised R79.89 [place] [id number] [place] [address] Jul, Type 2 diabetes mellitus with diabetic polyneuropathy E11.42 and Serum creatinine raised R79.89 [facility] [id number] [place] [address] May, [facility] [address] [place] [address] May, [facility] [id number] [place] [address] May, Head injury, initial encounter S09.90XA ; Facial pain R51 ; Neck pain M54.2 and Fall, initial encounter W19.XXXA [facility] [id number] [place] [address] May, Type 2 diabetes mellitus with diabetic polyneuropathy E11.42 [facility] [id number] [place] [address] May, [facility] [id number], [place] [address] May, Type 2 diabetes mellitus with diabetic polyneuropathy E11.42 [place] [id number] [place] [address] May, Dyslipidemia E78.5 ; 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 ; Type 2 diabetes mellitus with diabetic polyneuropathy E11.42 ; Generalized anxiety disorder F41.1 and Other seasonal allergic rhinitis J30.2 [place] [id number] [place] [address] Apr, Type 2 diabetes mellitus with diabetic polyneuropathy E11.42 [place] [id number] [place] [address] March, [place] [id number] [place] [address] March, Abnormal mammogram R92.8 [place] [id number] [place] [address] Feb, Abnormal mammogram R92.8 [place] [id number] [place] [address] Feb, Diabetes type 2, uncontrolled E11.65 [place] [address] [place] [address] Feb, Screening for breast cancer Z12.39 [place] [id number] [place] [address] Jan, Screening for breast cancer Z12.39 [place] [id number] [place] [address] Jan, Type 2 diabetes mellitus with diabetic polyneuropathy E11.42 ; senior living current use of insulin Z79.4 ; Other viral agents as the cause of diseases classified elsewhere B97.89 and Acute upper respiratory infection, unspecified J06.9 [place] [address] [place] [address] Jan, [place] [address] [place] [address] 17 Dec, 2016 Diabetes type 2, uncontrolled E11.65 ; Dyslipidemia E78.5 ; Generalized anxiety disorder F41.1 ; Depression, unspecified depression type F32.9 ; 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 and Polyneuropathy associated with underlying disease G63 [place] [id number] [place] [address] Dec, [place] [id number] [place] [address] Dec, [place] [id number] [place] [address] Dec, [place] [id number] [place] [address] Dec, [place] [id number] [place] [address] Oct, Well woman exam Z01.419 ; Screening for breast cancer Z12.39 ; senior living current use of insulin Z79.4 ; Type 2 diabetes mellitus without complications E11.9 and Encounter for immunization Z23 [place] [id number] [place] [address] Sep, [place] [address] [place] [address] Sep, Diabetes type 2, uncontrolled E11.65 ; Dyslipidemia E78.5 and Depression, unspecified depression type F32.9 [place] [id number] [place] [address] Aug, Diabetes type 2, uncontrolled E11.65 ; Encounter for immunization Z23 ; Nasal congestion R09.81 and Ear pressure, bilateral H93.8X3 [place] [address] [place] [address] 08 Jul, 2016 Eustachian tube dysfunction, left H69.82 [place] [id number] [address] Jun, [facility] [id number] [place] [address] Jun, Hospital discharge follow-up Z09 ; Syncope, unspecified syncope type R55 and Acute suppurative otitis media of left ear without spontaneous rupture of tympanic membrane, recurrence not specified H66.002 [place] [id number] [place] [address] May, [place] [id number] [place] [address] May, [place] [id number] [place] [address] May, [place] [id number] [place] [address] May, Diabetes type 2, uncontrolled E11.65 ; [...] disturbance G47.9 and Generalized anxiety disorder F41.1 [place] [address] [place] [address] March, [address] [place] [id number] March, Syncope, unspecified syncope type R55 and Depression, unspecified depression type F32.9 [place] [id number] [place] [id number] March, Orthostatic hypotension I95.[address] [place] [id number] March, [place] [id number] [place] [address] March, [facility] [address] [id number] [id number] Feb, [facility] [address] [id number][place] [id number] Feb, Dental examination Z01.20 [facility] [address] [id number], [place] [id number] Jan, [facility] [address] [id number][place] [id number] Jan, [facility] [address] [id number][place] [id number] Dec, Diabetes type 2, uncontrolled E11.65 [facility] [id number] [place] [id number] Nov, [facility] [address] [facility] [address] [id number] [id number] Nov, Encounter for dental examination Z01.20 [facility] [address] [id number][place] [id number] Nov, Dental examination Z01.20 [facility] [address] [facility] [id number][place] [id number] Sep, Diabetes type 2, uncontrolled E11.65 [facility] [address] [facility] [address] [id number][place] [id number] Sep, Encounter for dental examination Z01.20 and Dental caries, unspecified K02.9 [facility] [address] [id number], [place] [id number] Sep, Bipolar 2 disorder F31.81 [facility] [address] [id number], [place] [id number] Aug, [facility] [address] [id number], [place] [id number] Aug, Follow up V67.9 [facility] [address] [facility] [id number], [place] [address] Jul, Bipolar disorder, unspecified 296.80 [facility] [address] [id number], [place] [address] Jul, Thyroid enlarged 240.9 and Bipolar disorder, unspecified 296.80 [facility] [id number], [place] [id number] Jun, Diabetes mellitus type 2, uncontrolled 250.02 ; Bipolar disorder, unspecified 296.80 and Rash 782.1 [facility] [id number], [place] [id number] Jun, [facility] [id number] [place] [id number] May, Urinary tract infection 599.0 [facility] [id number] [place] [id number] May, Urinary tract infection 599.0 [facility] [id number] [place] [id number] May, [facility] [id number] [place] [address] [id number] May, Diabetes mellitus type 2, uncontrolled 250.02 and Pica in adults 307.52 [facility] [id number], [place] [address] Apr, Follow up V67.9 and Diabetes mellitus type 2, uncontrolled 250.02 [facility] [id number], [place] [id number] Apr, [facility] [address], [place] [address] Apr, [facility] [id number], [place] [id number] Apr, Hyperlipidemia 272.4 [facility] [id number], [place] [id number] March, Diabetes type 2, uncontrolled 250.02 [facility] [id number], [place] [id number] March, Diabetes mellitus type 2, uncontrolled 250.02 [facility] [id number], [place] [address] March, Diabetes type 2, uncontrolled 250.02 [facility] [id number], [place] [id number] March, [facility] [address] [facility] [id number] [place] [id number] March, [facility] [address] [facility] [id number] [place] [id number] Feb, [facility] [place] [facility] [address], [place] [address] Feb, [facility] [place] [facility] [address], [place] [address] Feb, [facility] [address] [facility] [id number][place] [id number] Jan, [facility] [place] [facility] [address], [place] [address] Jan, [facility] [place] [facility] [address], [place] [address] Jan, [facility] [id number], [place] [id number] Jan, [facility] [place] [facility] [address], [place] [address] Jan, [facility] [place] [facility] [address], [place] [address] Jan, [facility] [id number], [place] [id number] Jan, [facility] [place] [facility] [address], [place] [address] Jan, [facility] [place] [facility] [address], [place] [address] Dec, [facility] [address] [facility] [id number][place] [id number] Dec, [facility] [place] [facility] [address], [place] [address] Dec, [facility] [address] [id number], [place] [id number] 16 Dec, 2014 [facility] [place] [facility] [address], [place] [address] Dec, 2014 [facility] [address] [facility] [id number] [place] [id number] Dec, 2014 [facility] [place] [facility] [address] [facility] [id number], [place] [address] Dec, 2014 [facility] [place] [facility] [id number] [place] [address] Dec, 2014 [facility] [address] [facility] [id number], [place] [id number] Dec, 2014 [facility] [address] [facility] [id number] [place] [id number] Dec, [facility] [place] [facility] [address]100[place], [place] [address] Dec, [facility] [place] [facility] [address], [place] [address] Nov, [facility] [place] [facility] [address]100[place], [place] [address] Oct, [facility] [place] [facility] [address], [place] [address] Oct, [facility] [address] [id number], [place] [id number] Sep, [facility] [place] [facility] [address], [place] [address] Sep, [facility] [address] [facility] [id number], [place] [id number] Sep, [facility] [place] [facility] [address] [facility] [id number], [place] [address] Sep, [facility] [address] [facility] [id number], [place] [id number] Aug, [facility] [place] [facility] [address] [facility] [id number][place] [address] Aug, [facility] [id number], [place] [id number] Aug, [facility] [place] [facility] [address] [id number], [place] [address] Aug, [facility] [place] [facility] [address] [facility] [id number] [place] [address] Jul, [facility] [place] [facility] [address] [facility] [id number], [place] [address] Jul, [facility] [address] [id number] [place] [id number] Jul, [facility] [place] [facility] [address] [id number] [place] [address] Jul, [facility] [address] [id number] [place] [id number] Jun, [facility] [address] [facility] [id number] [place] [id number] Jun, [facility] [place] [facility] [address] [facility] [id number], [place] [address] Jun, [facility] [place] [facility] [address] [facility] [id number], [place] [address] Jun, [facility] [address] [facility] [id number] [id number] Jun, [facility] [place] [facility] [address] [facility] [id number][place] [address] Jun, [facility] [address] [facility] [id number][place] [id number] May, [facility] [place] [facility] [address] [facility] [id number], [place] [address] May, [facility] [place] [facility] [address] [facility] [id number], [place] [address] Apr, [facility] [place] [facility] [address] [facility] [id number], [place] [address] Apr, [facility] [address] [facility] [id number][place] [id number] Apr, [facility] [place] [facility] [address] [facility] [id number], [place] [address] Apr, [facility] [place] [facility] [address] [id number] [place] [id number] Apr, [facility] [address] [facility] [id number] [place] [id number] March, [facility] [place] [facility] [address] [facility] [id number] [place] [id number] March, [facility] [place] [facility] [address] [facility] [id number] [place] [id number] March, [facility] [address] [facility] [id number] [place] [id number] March, [facility] [place] [facility] [address] [facility] [id number] [place] [id number] March, [facility] [address] [facility] [id number] [place] [id number] March, [facility] [place] [facility] [address] [facility] [id number], [place] [address] March, [facility] [address] [facility] [id number] [place] [id number] Feb, [facility] [place] [facility] [address] [facility] [id number] [place] [id number] Feb, [facility] [place] [facility] [address] [facility] [id number], [place] [address] Jan, [facility] [place] [address] [facility] [id number], [place] [id number] Jan, [facility] [place] [facility] [address] [id number] [place] [address] Jan, [facility] [place] [facility] [address] [facility] [id number] [place] [id number] Jan, [facility] [address] [facility] [id number] [place] [id number] Jan, [facility] [address] [facility] [id number] [place] [id number] Dec, [facility] [place] [facility] [address] [facility] [id number], [place] [address] Dec, [facility] [address] [facility] [id number], [place] [address] Dec, [facility] [address] [facility] [id number], [place] [id number] Dec, [facility] [address] [facility] [id number][place] [address] Dec, [facility] [address] [facility] [id number], [place] [id number] Dec, [facility] [place] [facility] [address] [facility] [id number], [place] [address] Dec, [facility] [place] [facility] [address] [id number], [place] [address] Dec, [facility] [id number][place] [id number] Dec, [facility] [place] [address] [id number][place] [id number] Nov, [facility] [id number], [place] [address] Nov, [facility] [place] [facility] [id number], [place] [address] Nov, [facility] [place] [address] [id number], [place] [id number] Nov, [facility] [address] [facility] [id number][place] [id number] Oct, [facility] [place] [facility] [address] [facility] [id number][place] [address] Oct, [facility] [address] [facility] [id number], [place] [id number] Oct, [facility] [place] [facility] [address] [facility] [id number], [place] [address] Oct, [facility] [place] [facility] [id number], [place] [address] Oct, [facility] [place] [facility] [address] [id number], [place] [address] Oct, [facility] [address] [id number] [place] [id number] Oct, [facility] [address] [id number], [place] [address] Oct, [facility] [place] [facility] [address] [id number], [place] [address] Sep, [facility] [address] [id number], [place] [address] Sep, [facility] [address] [id number][place] [id number] Sep, [facility] [address] [facility] [id number][place] [address] Sep, [facility] [address] [facility] [id number], [place] [address] Sep, [facility] [address] [id number][place] [id number] Sep, [facility] [address] [id number][place] [id number] Aug, [facility] [address] [id number], [place] [address] Aug, [facility] [place] [facility] [address] [id number], [place] [address] Aug, [facility] [address] [id number], [place] [address]349 Aug, [facility] [address] [id number], [place] [id number] Aug, [facility] [place] [facility] [address] [facility] [id number], [place] [address] Aug, [facility] [place] [facility] [address] [facility] [id number], [place] [address] Aug, [facility] [place] [facility] [address] [facility] [id number], [place] [address] Aug, [facility] [address] [facility] [id number] [place] [id number] Jul, [facility] [address] [facility] [id number][place] [address] Jul, [facility] [address] [facility] [id number], [place] [address] Jul, [facility] [address] [facility] [id number], [place] [id number] Jul, [facility] [address] [facility] [id number] [place] [id number] Jul, [facility] [id number], [place] [address] May, [facility] [id number], [place] [address] Apr, [facility] [address] [id number], [place] [id number] Apr, [facility] [address] [facility] [id number] [place] [id number] Apr, [facility] [id number], [place] [address] March, [facility] [address] [id number], [place] [id number] March, [facility] [address] [id number], [place] [id number] March, [facility] [address] [id number], [place] [id number] March, [facility] [address] [id number] [place] [id number] March, [facility] [address] [facility] [id number], [place] [id number] March, [facility] [place] [facility] [address] [facility] [id number], [place] [address] March, [facility] [place] [facility] [id number], [place] [address] March, [facility] [place] [id number], [place] [address] Feb, [facility] [address] [id number] [place] [id number] Feb, [facility] [address] [id number] [place] [id number] Feb, [facility] [address] [id number] [place] [id number] Feb, [facility] [place] [address] [facility] [id number], [place] [address] Feb, [facility] [address] [id number] [place] [id number] Feb, [facility] [address] [id number] [place] [id number] Jan, [facility] [address] [id number] [place] [id number] Jan, [facility] [address] [id number] [place] [id number] Dec, [facility] [address] [id number] [place] [id number] Dec, [facility] [place] [id number], [place] [address] Dec, [facility] [address] [id number] [place] [id number] Dec, [facility] [place] [address] [id number] [place] [id number] Dec, [facility] [place] [address] [id number] [place] [id number] Dec, [facility] [place] [address] [id number] [place] [id number] Dec, [facility] [address] [facility] [id number], [place] [address] Nov, [facility] [place] [id number], [place] [id number] Nov, [facility] [address] [id number] [place] [id number] Nov, [facility] [address] [id number] [place] [id number] Nov, [facility] [address] [id number] [place] [id number] Nov, [facility] [address] [id number], [place] [address] Oct, [facility] [address] [id number] [place] [id number] Oct, [facility] [place] [address] [id number] [place] [id number] Oct, [facility] [place] [address] [id number] [place] [id number] Oct, [facility] [address] [facility] [id number][place] [address] Oct, [facility] [address] [facility] [id number], [place] [address] Oct, [facility] [address] [facility] [id number], [place] [address] Oct, [facility] [place] [address] [id number], [place] 577852275 Sep, [facility] [address] [facility] [id number], [place] [address] Sep, [facility] [address] [facility] [id number], [place] [address] Sep, [facility] [address] [id number], [place] 1129[address]81 Sep, [facility] [place] [address] [id number] [place] [id number] Sep, [facility] [place] [address] [id number] [place] [id number] Sep, [facility] [address] [facility] [id number], [place] [address] Sep, [facility] [place] [facility] [address] [facility] [id number], [place] [address] Sep, [facility] [place] [facility] [address] [facility] [id number], [place] [address] Sep, [facility] [address] [id number], [place] [id number] Aug, [facility] [place] [facility] [address] [facility] [id number][place] [address] Aug, [facility] [address] [id number], [place] [id number] Aug, [facility] [place] [facility] [address] [facility] [id number], [place] [address] Aug, [facility] [place] [facility] [address] [facility] [id number], [place] [address] Aug, [facility] [place] [address] [id number], [place] 644917758 Aug, [facility] [place] [address] [id number], [place] [id number] Aug, [facility] [address] [facility] [id number], [place] [address] Aug, [facility] [place] [address] [id number], [place] [id number] Aug, [facility] [address] [id number], [place] 909178599 Jul, [facility] [place] [address] [id number], [place] 844003966 Jun, [facility] [address] [id number], [place] 478965153 May, [facility] [place] [address] [id number], [place] [id number] May, [facility] [address] [id number], [place] 082562189 May, [facility] [address] [id number], [place] 603405239 May, [facility] [place] [address] [id number] [place] [address] [id number] May, [facility] [place] [address] [id number] [place] [id number] May, [facility] [place] [address] [id number] [place] 898019278 May, [facility] [place] [address] [id number] [place] 949009399 Apr, [facility] [place] [address] [id number] [place] [id number] Apr, [facility] [place] [address] [id number] [place] [id number] Apr, [facility] [place] [address] [id number] [place] 949142231 Apr, [facility] [place] [address] [id number] [place] [id number] Apr, [facility] [place] [address] [id number] [place] [id number] Apr, [facility] [place] [address] [id number] [place] 414172211 March, [facility] [place] [address] [id number] [place] 699878813 March, [facility] [place] [address] [id number] [place] [id number] Feb, [facility] [place] [address] [id number] [place] [id number] Feb, [facility] [place] [address] [id number] [place] [id number] Feb, [facility] [place] [address] [id number] [place] [id number] Jan, [facility] [place] [address] [id number] [place] [id number] Jan, [facility] [place] [address] [id number] [place], [place] [id number] Jan, [facility] [place] [address] [id number] [place] 099004551 Jan, [facility] [place] [address] [id number] [place] 520302950 Dec, [facility] [place] [facility] [address] [id number], [place] [address] Dec, [facility] [place] [address] [id number] [place] [id number] Dec, [facility] [place] [address] [facility] [id number] [place] [id number] Nov, [facility] [address] [facility] [id number] [place] [id number] Nov, [facility] [place] [address] [id number] [place] [id number] Nov, [facility] [address] [facility] [id number] [place] [address] Oct, [facility] [place] [facility] [address] [facility] [id number], [place] [address] Oct, [facility] [place] [facility] [id number] [place] [address] Oct, [facility] [place] [facility] [id number], [place] [address] Aug, [facility] [place] [facility] [id number], [place] [address] Aug, [facility] [place] [facility] [id number], [place] [address] Aug, [facility] [place] [facility] [id number], [place] [address] March, [facility] [place] [facility] [address] [facility] [id number], [place] [address] Oct, [facility] [place] [facility] [address] [id number], [place] [address] Oct, [facility] [place] [facility] [address] [facility] [id number], [place] [address] Sep, [facility] [place] [facility] [id number], [place] [address] Sep, [facility] [place] [facility] [address] [id number] [place] [address] Sep, [facility] [place] [facility] [address] [id number] [place] [address] Aug, [facility] [place] [facility] [address] [id number] [place] [id number] Aug, [facility] [place] [facility] [address] [id number] [place] [address] Jun, [facility] [place] [facility] [address] [id number] [place] [address] May, [facility] [place] [facility] [address] [id number] [place] [address] Jan, [facility] [place] [facility] [address] [id number] [place] [id number] Nov, [facility] [place] [facility] [address] [id number] [place] [id number] Oct, [facility] [place] [facility] [address] [id number] [place] [address] Sep, [facility] [place] [facility] [address] [id number] [place] [address] Sep, [facility] [place] [facility] [address] [facility] [id number] [place] [address] Sep, [facility] [place] [facility] [address] [id number] [place] [address] Sep, [facility] [place] [facility] [address] [id number] [place] [address] Sep, [facility] [place] [facility] [address] [id number] [place] [id number] 30 Aug, 2009 [facility] [place] [facility] [address] [id number] [place] [address] Aug, [facility] [place] [facility] [address] [id number] [place] [id number] Jul, [facility] [address] [facility] [id number] [place] [address] Jun, IMMUNIZATIONS No Known Immunizations SOCIAL HISTORY [...] 08/2016 Hospitalization History chest pain ED visit [facility], pt scheduled for heart cath on May Hospitalization History [facility] 2012 Hospitalization History [facility] 12/[facility]16
--- OUTSIDE RECORDS SUMMARY | 2019-05-21 00:09 | XMS REPORT ---
Author Author Migration, Doctor Organization [facility] Address Unknown Phone Unavailable Care Team Providers Care Frit Mixer Name Role Phone Migration, Doctor Unavailable Unavailable PROBLEMS Type Condition ICD9-CM Code [id number] Code Onset Dates Condition Status SNOMED Code Problem Serum creatinine raised R79.89 Active 885008811 Problem Episodic mood disorder F39 Active 98946352 Problem Generalized anxiety disorder F41.1 Active 54140493 Problem Lumbago with sciatica, left side M54.42 Active 702505246 Problem Dyslipidemia E78.5 Active 332908688 Problem Other chronic pain G89.29 Active 81542761 Problem Polyneuropathy associated with underlying disease G63 Active 364380678 Problem Syncope, unspecified syncope type R55 Active 629872582 Problem Recurrent major depressive disorder, in partial remission F33.41 Active 51977049 Problem Other seasonal allergic rhinitis J30.2 Active 358941817 Problem Hammertoe of left foot M20.42 Active 168756441 Problem Lumbago with sciatica, right side M54.41 Active 881899306 Problem 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 Active 402157000 Problem Type 2 diabetes mellitus with diabetic polyneuropathy E11.42 Active 29247633 Problem Stage 2 chronic kidney disease N18.2 Active 155186847 Problem Vitamin D deficiency E55.9 Active 49471267 ALLERGIES No Information ENCOUNTERS Encounter Location Date Diagnosis [place] [id number] [address] Apr, [facility] [address] [address] Feb, [place] [address] [place] [address] Jan, 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 [place] [id number] [address] Jan, [place] [address] [address] Jan, Type 2 diabetes mellitus with diabetic polyneuropathy E11.42 [facility] [address] [address] Jan, [facility] [address] [address] Jan, Type 2 diabetes mellitus with diabetic polyneuropathy E11.42 [facility] [address] [place] [address] Dec, group home current use of insulin Z79.4 [place] [id number] [place] [address] Dec, 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 [place] [id number] [place] [address] Dec, [place] [address] [place] [address] Nov, Hammertoe of left foot M20.42 ; Peroneal tendonitis of left lower extremity M76.72 ; Callus of foot L84 and Type 2 diabetes mellitus with diabetic polyneuropathy E11.42 [place] [address] [address] Nov, [place] [address] [place] [address] Nov, Encounter for immunization Z23 [place] [address] [address] Oct, [place] [address] [place] [address] Oct, [place] [address] [address] Oct, Acute pancreatitis, unspecified complication status, unspecified pancreatitis type K85.90 [place] [id number] [address] Sep, 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 [place] [id number] [place] [address] Sep, [place] [id number] [place] [address] Sep, Type 2 diabetes mellitus with diabetic polyneuropathy E11.42 ; Stage 2 chronic kidney disease N18.2 and Recurrent major depressive disorder, in partial remission F33.41 [place] [id number] [place] [address] Sep, 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 [place] [id number] [place] [address] Sep, Acute maxillary sinusitis, recurrence not specified J01.00 and Bronchiolitis J21.9 [place] [id number] [place] [address] Jul, [place] [id number] [place] [address] Jun, Type 2 diabetes mellitus with diabetic polyneuropathy E11.42 ; Open wound T14.8XXA ; group home current use of insulin Z79.4 ; Stage 2 chronic kidney disease N18.2 and Episodic mood disorder F39 [place] [address] [address] May, [place] [address] [address] March, [place] [id number] [place] [address] March, Type 2 diabetes mellitus with diabetic [...] H60.502 and Non-adherence to medical treatment Z91.19 [facility] [place] [id number] Feb, Dental examination Z01.20 [facility] [id number] [place] [address] Feb, Labile hypertension R09.89 ; Syncope, unspecified syncope type R55 ; Chest pain, unspecified type R07.9 and Dyslipidemia E78.5 [facility] [address] [address] Feb, [facility] [address] [address] Jan, [address] [place] [address] [id number] Jan, Dental examination Z01.20 [facility] [address] [address] Jan, Acute non-recurrent maxillary sinusitis J01.00 and Dyslipidemia E78.5 [address] [place] [address] [id number] Jan, Dental examination Z01.20 and Dental caries K02.9 [address] [place] [address] [id number] Jan, [place] [id number] [place] [address] [id number] Dec, Dental examination Z01.20 [facility] [id number] [place] [address] Dec, Seasonal allergic rhinitis, unspecified trigger J30.2 [facility] [id number] [place] [address] Nov, [facility] [address] [address] Nov, Type 2 diabetes mellitus with diabetic polyneuropathy E11.42 ; Dyslipidemia E78.5 ; Lumbago with sciatica, right side M54.41 ; Lumbago with sciatica, left side M54.42 ; group home current use of insulin Z79.4 ; Polyneuropathy associated with underlying disease G63 ; Stage 2 chronic kidney disease N18.2 and Syncope, unspecified syncope type R55 [address] [address] Oct, Type 2 diabetes mellitus with diabetic polyneuropathy E11.42 ; Acute otitis externa of left ear, unspecified type H60.502 ; Overweight (BMI 25.0- 29.9) E66.3 ; Dyslipidemia E78.5 and Polyneuropathy associated with underlying disease G63 [place] [address] [address] Sep, [address] [address] Aug, Abnormal mammogram R92.[address] [address] Aug, Type 2 diabetes mellitus with diabetic polyneuropathy E11.42 [place] [id number] [place] [address] Aug, [place] [id number] [place] [address] Aug, Type 2 diabetes mellitus with diabetic polyneuropathy E11.42 ; Syncope, unspecified syncope type R55 ; Other chronic pain G89.29 and Encounter for immunization Z23 [address] [address] 13 Aug, 2017 Type 2 diabetes mellitus with diabetic polyneuropathy E11.42 [place] [address] [address] Jul, Type 2 diabetes mellitus with diabetic polyneuropathy E11.42 and Serum creatinine raised R79.[id number] [place] [address] Jul, Type 2 diabetes mellitus with diabetic polyneuropathy E11.42 and Serum creatinine raised R79.89 [place] [id number] [place] [address] May, [place] [id number] [place] [address] May, [place] [address] [address] May, Head injury, initial encounter S09.90XA ; Facial pain R51 ; Neck pain M54.2 and Fall, initial encounter W19.XXXA [place] [address] [address] May, Type 2 diabetes mellitus with diabetic polyneuropathy E11.42 [place] [address] [address] May, [place] [id number] [place] [address] May, Type 2 diabetes mellitus with diabetic polyneuropathy E11.42 [place] [id number] [place] [address] May, Dyslipidemia E78.5 ; 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 ; Type 2 diabetes mellitus with diabetic polyneuropathy E11.42 ; Generalized anxiety disorder F41.1 and Other seasonal allergic rhinitis J30.2 [place] [id number] [place] [address] Apr, Type 2 diabetes mellitus with diabetic polyneuropathy E11.42 [place] [id number] [place] [address] March, [place] [id number] [place] [address] March, Abnormal mammogram R92.8 [place] [address] [place] [address] Feb, Abnormal mammogram R92.8 [place] [id number] [place] [address] Feb, Diabetes type 2, uncontrolled E11.65 [place] [address] [place] [address] Feb, Screening for breast cancer Z12.39 [place] [id number] [place] [address] Jan, Screening for breast cancer Z12.39 [place] [id number] [place] [address] Jan, Type 2 diabetes mellitus with diabetic polyneuropathy E11.42 ; 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 ; Other viral agents as the cause of diseases classified elsewhere B97.89 and Acute upper respiratory infection, unspecified J06.9 [place] [id number] [place] [address] Jan, [place] [address] [place] [address] Dec, Diabetes type 2, uncontrolled E11.65 ; Dyslipidemia E78.5 ; Generalized anxiety disorder F41.1 ; Depression, unspecified depression type F32.9 ; group home current use of insulin Z79.4 and Polyneuropathy associated with underlying disease G63 [place] [address] [address] Dec, [place] [address] [address] Dec, [place] [id number] [place] [address] Dec, [place] [address] [address] Dec, [place] [id number] [place] [address] Oct, Well woman exam Z01.419 ; Screening for breast cancer Z12.39 ; group home current use of insulin Z79.4 ; Type 2 diabetes mellitus without complications E11.9 and Encounter for immunization Z23 [place] [id number] [place] [address] Sep, [place] [address] [address] Sep, Diabetes type 2, uncontrolled E11.65 ; Dyslipidemia E78.5 and Depression, unspecified depression type F32.9 [place] [address] [address] Aug, Diabetes type 2, uncontrolled E11.65 ; Encounter for immunization Z23 ; Nasal congestion R09.81 and Ear pressure, bilateral H93.8X3 [place] [address] [address] Jul, Eustachian tube dysfunction, left H69.82 [place] [address] [address] Jun, [place] [address] [address] Jun, Hospital discharge follow-up Z09 ; Syncope, unspecified syncope type R55 and Acute suppurative otitis media of left ear without spontaneous rupture of tympanic membrane, recurrence not specified H66.002 [place] [id number] [place] [address] May, [place] [id number] [place] [address] May, [place] [address] [address] May, [place] [id number] [place] [address] May, Diabetes type 2, uncontrolled E11.65 ; [...] disturbance G47.9 and Generalized anxiety disorder F41.1 [facility] [id number] [place] [address] March, [facility] [id number] [place] [id number] March, Syncope, unspecified syncope type R55 and Depression, unspecified depression type F32.9 [facility] [id number] [place] [address] [id number] March, Orthostatic hypotension I95.1 [facility] [id number] [place] [address] [id number] March, [facility] [id number] [place] [address] March, [facility] [id number] [place] [address] [id number] Feb, [facility] [address] [facility] [id number] [place] [address] [id number] Feb, Dental examination Z01.20 [facility] [address] [place] [address] [id number] Jan, [facility] [id number] [place] [address] [id number] Jan, [facility] [id number] [place] [address] [id number] Dec, Diabetes type 2, uncontrolled E11.65 [facility] [address] [id number] Nov, [facility] [address] [id number] [id number] Nov, Encounter for dental examination Z01.[address] [address] [facility] [id number] [place] [address] [id number] Nov, Dental examination Z01.20 [facility] [place] [address] [facility] [id number][place] [id number] Sep, Diabetes type 2, uncontrolled E11.65 [facility] [address] [facility] [address] [id number][place] [id number] Sep, Encounter for dental examination Z01.20 and Dental caries, unspecified K02.9 [facility] [address] [id number][place] [id number] Sep, Bipolar 2 disorder F31.81 [facility] [id number], [place] [id number] Aug, [facility] [id number] [place] [address] [id number] Aug, Follow up V67.[address] [facility] [address] [address] Jul, Bipolar disorder, unspecified 296.[address] [facility] [place] [id number], [place] [id number] Jul, Thyroid enlarged 240.9 and Bipolar disorder, unspecified 296.[address] [facility] [place] [id number] [place] [address] [id number] Jun, Diabetes mellitus type 2, uncontrolled 250.02 ; Bipolar disorder, unspecified 296.80 and Rash [address] [facility] [place] [id number], [place] [id number] Jun, [facility] [id number], [place] [id number] May, Urinary tract infection 599.0 [facility] [address] [id number][place] [id number] May, Urinary tract infection 599.0 [facility] [id number], [place] [id number] May, [facility] [address] [id number] [id number] May, Diabetes mellitus type 2, uncontrolled 250.02 and Pica in adults 307.52 [facility] [id number], [place] [id number] Apr, Follow up V67.9 and Diabetes mellitus type 2, uncontrolled 250.02 [facility] [id number][place] [id number] Apr, [facility] [address] [address] Apr, [facility] [id number] [place] [address] [id number] Apr, Hyperlipidemia 272.4 [facility] [id number] [place] [address] [id number] March, Diabetes type 2, uncontrolled 250.02 [facility] [id number] [place] [address] [id number] March, Diabetes mellitus type 2, uncontrolled 250.02 [facility] [id number] [place] [address] [id number] March, Diabetes type 2, uncontrolled 250.02 [facility] [id number] [place] [address] [id number] March, [facility] [id number], [place] [address] March, [facility] [id number] [place] [address] [id number] Feb, [facility] [address] [address] Feb, [facility] [place] [facility] [address] [address] Feb, [facility] [address] [id number][place] [address] Jan, [facility] [place] [facility] [id number] [place] [address] Jan, [facility] [place] [facility] [address] [address] Jan, [facility] [address] [id number][place] [id number] Jan, [facility] [place] [facility] [address] [facility] [id number] [address] Jan, [facility] [place] [facility] [address] [facility] [id number] [place] [address] Jan, [facility] [address] [facility] [id number][place] [id number] Jan, [facility] [place] [facility] [address] [facility] [id number] [place] [address] Jan, [facility] [place] [facility] [address] [facility] [id number] [place] [address] Dec, [facility] [address] [facility] [id number] [place] [id number] Dec, [facility] [place] [facility] [id number] [place] [address] Dec, [facility] [address] [id number], [place] [id number] Dec, [facility] [place] [facility] [id number] [address] Dec, [facility] [address] [id number], [place] [id number] Dec, [facility] [place] [facility] [id number] [address] Dec, [facility] [place] [facility] [id number] [address] Dec, [facility] [address] [facility] [id number], [place] [id number] Dec, [facility] [address] [facility] [id number], [place] [id number] Dec, [facility] [place] [facility] [id number] [address] Dec, [facility] [place] [facility] [id number] [address] Nov, [facility] [place] [facility] [id number] [address] Oct, [facility] [place] [facility] [address] [facility] [id number] [place] [address] Oct, [facility] [address] [facility] [id number], [place] [id number] Sep, [facility] [place] [facility] [address] [facility] [id number] [place] [address] Sep, [facility] [address] [facility] [id number], [place] [id number] Sep, [facility] [place] [facility] [address] [facility] [id number] [place] [address] Sep, [facility] [address] [facility] [id number][place] [id number] Aug, [facility] [place] [facility] [address] [address] Aug, [facility] [address] [facility] [id number], [place] [id number] Aug, [facility] [place] [facility] [address] [facility] [id number] [place] [address] Aug, [facility] [place] [facility] [address] [facility] [id number] [place] [address] Jul, [facility] [place] [facility] [address] [facility] [id number] [place] [address] Jul, [facility] [address] [facility] [id number][place] [id number] Jul, [facility] [place] [facility] [address] [facility] [id number] [place] [address] Jul, [facility] [address] [facility] [id number][place] [id number] Jun, [facility] [address] [facility] [id number], [place] [id number] Jun, [facility] [place] [facility] [address] [facility] [id number] [place] [address] Jun, [facility] [place] [facility] [address] [id number] [place] [address] Jun, [facility] [address] [facility] [id number] [place] [id number] Jun, [facility] [place] [facility] [address] [facility] [id number] [place] [address] Jun, [facility] [address] [facility] [id number] [place] [id number] May, [facility] [place] [facility] [address] [id number] [place] [address] May, [facility] [place] [facility] [address] [facility] [id number] [place] [address] Apr, [facility] [place] [facility] [address] [facility] [id number] [place] [address] Apr, [facility] [address] [facility] [id number] [place] [id number] Apr, [facility] [place] [facility] [address] [facility] [id number] [place] [address] Apr, [facility] [place] [facility] [address] [facility] [id number] [place] [address] Apr, [facility] [address] [facility] [id number], [place] [address]84632195 March, [facility] [place] [facility] [address] [facility] [id number] [place] [address] March, [facility] [place] [facility] [address] [facility] [id number] [place] [address] March, [facility] [address] [facility] [id number][place] [id number] March, [facility] [address] [facility] [id number] [place] [address] March, [facility] [address] [facility] [id number] [place] [id number] March, [facility] [address] [facility] [id number] [place] [address] March, [facility] [address] [facility] [id number] [place] [id number] Feb, [facility] [address] [id number] [address] Feb, [facility] [address] [id number] [address] Jan, [facility] [address] [facility] [id number][place] [id number] Jan, [facility] [address] [id number] [place] [address] Jan, [facility] [address] [id number] [address] Jan, [facility] [address] [id number][place] [id number] Jan, [facility] [address] [id number][place] [id number] Dec, [facility] [id number] [address] Dec, [facility] [id number] [address] Dec, [facility] [id number][place] [id number] Dec, [facility] [id number] [address] Dec, [facility] [address] [id number][place] [id number] Dec, [facility] [id number] [address] Dec, [facility] [id number] [address] Dec, [facility] [address] [id number][place] [id number] Dec, [facility] [address] [facility] [id number][place] [id number] Nov, [facility] [address] [facility] [id number] [place] [address] Nov, [facility] [address] [facility] [id number] [place] [address] Nov, [facility] [address] [facility] [id number][place] [id number] Nov, [facility] [address] [facility] [id number][place] [id number] Oct, [facility] [address] [facility] [id number] [place] [address] Oct, [facility] [address] [id number][place] [id number] Oct, [facility] [address] [id number] [address] Oct, [facility] [place] [facility] [id number] [address] Oct, [facility] [place] [facility] [id number] [address] Oct, [facility] [place] [address] [id number] [id number] Oct, [facility] [place] [facility] [id number] [address] Oct, [facility] [place] [facility] [address] [facility] [id number] [address] Sep, [facility] [place] [facility] [address] [facility] [id number] [address] Sep, [facility] [place] [address] [facility] [address] [id number] [id number] Sep, [facility] [place] [facility] [address] [facility] [id number] [address] Sep, [facility] [place] [facility] [address] [facility] [id number] [address] Sep, [facility] [place] [address] [id number] [place] [id number] Sep, [facility] [place] [address] [id number] [place] [id number] Aug, [facility] [place] [facility] [address] [facility] [id number] [place] [address] Aug, [facility] [place] [facility] [address] [facility] [id number] [address] Aug, [facility] [place] [address] [id number] [place] [id number] Aug, [facility] [place] [address] [id number] [place] [id number] Aug, [facility] [place] [facility] [address] [facility] [id number] [address] Aug, [facility] [place] [facility] [address] [id number] [address] Aug, [facility] [place] [facility] [address] [facility] [id number] [place] [address] Aug, [facility] [place] [address] [facility] [id number][place] [id number] Jul, [facility] [place] [facility] [address] [facility] [id number] [place] [address] Jul, [facility] [place] [facility] [address] [facility] [id number] [place] [address] Jul, [facility] [place] [address] [id number][place] [id number] Jul, [facility] [place] [address] [id number][place] [id number] Jul, [facility] [place] [facility] [address] [facility] [id number] [address] May, [facility] [place] [facility] [address] [facility] [id number] [address] Apr, [facility] [place] [address] [id number] [place] [id number] Apr, [facility] [place] [address] [id number] [place] [id number] Apr, [facility] [address] [facility] [id number] [address] March, [facility] [place] [address] [id number] [place] [id number] March, [facility] [place] [address] [id number] [place] [id number] March, [facility] [place] [address] [id number] [place] [id number] March, [facility] [place] [address] [id number] [place] [id number] March, [facility] [place] [address] [id number] [place] [id number] March, [facility] [id number] [address] March, [facility] [address] [facility] [id number] [place] [address] March, [facility] [address] [facility] [id number] [place] [address] Feb, [facility] [place] [address] [id number] [place] [id number] Feb, [facility] [place] [address] [id number][place] [id number] Feb, [facility] [place] [address] [id number] [place] [id number] Feb, [facility] [place] [facility] [address] [facility] [id number] [place] [address] Feb, [facility] [place] [address] [id number] [place] [id number] Feb, [facility] [place] [address] [id number] [place] [id number] Jan, [facility] [place] [address] [id number] [place] [id number] Jan, [facility] [place] [address] [id number] [place] [id number] Dec, [facility] [place] [address] [id number] [place] [id number] Dec, [facility] [address] [facility] [id number] [place] [address] Dec, [facility] [place] [address] [id number] [place] [id number] Dec, [facility] [place] [address] [id number] [place] [id number] Dec, [facility] [place] [address] [id number] [place] [id number] Dec, [facility] [place] [address] [id number] [place] [id number] Dec, [facility] [id number] [address] Nov, [facility] [place] [address] [id number] [place] [id number] Nov, [facility] [place] [address] [id number] [place] [id number] Nov, [facility] [place] [address] [id number] [place] [id number] Nov, [facility] [place] [address] [id number] [place] [id number] Nov, [facility] [id number] [address] Oct, [facility] [place] [address] [id number] [place] [id number] Oct, [facility] [place] [address] [id number] [place] [id number] Oct, [facility] [place] [address] [id number] [place] [id number] Oct, [facility] [id number] [address] Oct, [facility] [address] [id number] [address] Oct, [facility] [place] [facility] [address] [id number] [place] [address] Oct, [facility] [place] [address] [facility] [address] [id number][place] [id number] Sep, [facility] [place] [facility] [address] [facility] [id number] [place] [address] Sep, [facility] [place] [facility] [address] [facility] [id number] [address] Sep, [facility] [place] [address] [id number] [place] [id number] Sep, [facility] [place] [address] [id number] [place] [id number] Sep, [facility] [place] [address] [facility] [address] [id number] [place] [id number] Sep, [facility] [place] [facility] [address] [facility] [id number] [place] [address] Sep, [facility] [place] [facility] [address] [facility] [id number] [place] [address] Sep, [facility] [place] [facility] [address] [facility] [id number] [address] Sep, [facility] [place] [id number], [place] [id number] Aug, [facility] [place] [facility] [address] [facility] [id number] [place] [address] Aug, [facility] [address] [facility] [id number][place] [id number] Aug, [facility] [place] [facility] [address] [facility] [id number] [place] [address] Aug, [facility] [place] [facility] [address] [facility] [id number] [place] [address] Aug, [facility] [place] [address] [facility] [id number], [place] [id number] Aug, [facility] [place] [address] [id number] [place] [id number] Aug, [facility] [address] [facility] [id number] [place] [address] Aug, [facility] [place] [address] [id number] [place] [id number] Aug, [facility] [place] [address] [id number] [place] [id number] Jul, [facility] [place] [address] [id number] [place] [id number] Jun, [facility] [place] [address] [id number] [place] [id number] May, [facility] [place] [address] [id number] [place] [id number] May, [facility] [place] [address] [id number] [place] [id number] May, [facility] [place] [address] [id number] [place] [id number] May, [facility] [place] [address] [id number] [place] [id number] May, [facility] [place] [address] [id number] [place] [id number] May, [facility] [place] [address] [id number] [place] [id number] May, [facility] [place] [address] [id number] [place] [id number] Apr, [facility] [place] [address] [id number] [place] [id number] Apr, [facility] [place] [address] [id number] [place] [id number] Apr, [facility] [place] [address] [id number] [place] [id number] Apr, [facility] [place] [address] [id number] [place] 840638643 Apr, [facility] [place] [address] [id number] [place] [id number] Apr, [facility] [place] [address] [id number] [place] [address] March, [facility] [place] [address] [id number] [place] [id number] March, [facility] [place] [address] [id number] [place] 6289832[address] Feb, [facility] [place] [address] [id number] [place] [id number] Feb, [facility] [place] [address] [id number] [place] [id number] Feb, [facility] [place] [address] [id number] [place] 064853853 Jan, [facility] [place] [address] [id number] [place] [id number] Jan, [facility] [place] [address] [id number] [place] [id number] Jan, [facility] [place] [address] [id number] [place] [id number] Jan, [facility] [place] [address] [id number] [place] [address]4669025[address] Dec, [facility] [id number] [address] Dec, [facility] [place] [address] [id number] [place] [id number] Dec, [facility] [place] [address] [id number] [place] [id number] Nov, [facility] [place] [address] [id number] [place] [id number] Nov, [facility] [place] [address] [id number] [place] [id number] Nov, [facility] [id number] [place] [address] Oct, [facility] [id number] [place] [address] Oct, [facility] [id number] [place] [address] Oct, [facility] [place] [facility] [address] [id number] [place] [address] Aug, [facility] [place] [facility] [address] [id number] [place] [address] Aug, [facility] [place] [facility] [address] [id number] [place] [address] Aug, [facility] [place] [facility] [address] [id number] [place] [address] March, [facility] [place] [facility] [address] [id number] [place] [address] Oct, [facility] [place] [facility] [address] [id number] [place] [address] Oct, [facility] [place] [facility] [address] [id number] [place] [address] Sep, [facility] [place] [facility] [address] [id number] [place] [address] Sep, [facility] [place] [facility] [address] [id number] [place] [address] Sep, [facility] [place] [facility] [address] [id number] [place] [address] Aug, [facility] [place] [facility] [address] [id number] [place] [address] Aug, [facility] [place] [facility] [address] [id number] [place] [address] Jun, [facility] [place] [facility] [address] [id number] [place] [address] May, [facility] [place] [facility] [address] [id number] [place] [address] Jan, [facility] [place] [facility] [address] [id number] [place] [address] Nov, [facility] [place] [facility] [address] [id number] [place] [address] Oct, [facility] [id number] [address] Sep, [facility] [id number] [address] Sep, [facility] [address] [id number] [address] Sep, [facility] [id number] [address] Sep, [facility] [id number] [address] Sep, [facility] [id number] [address] Aug, [facility] [id number] [address] Aug, [facility] [address] [id number] [address] Jul, [facility] [address] [id number] [address] Jun, IMMUNIZATIONS No Known Immunizations SOCIAL HISTORY Never Assessed REASON FOR VISIT [facility] PLAN OF CARE VITAL SIGNS MEDICATIONS Unknown [...] Hospitalization History [place] 2012 Hospitalization History Chest pain-[facility] 12/22/16
--- OUTSIDE RECORDS SUMMARY | 2019-05-21 00:10 | XMS REPORT ---
Author Author Migration, Doctor Organization [facility] Address Unknown Phone Unavailable Care Team Providers Care Clean Room Technician Name Role Phone Migration, Doctor Unavailable Unavailable PROBLEMS Type Condition ICD9-CM Code OUM24-DB Code Onset Dates Condition Status SNOMED Code Problem Serum creatinine raised R79.89 Active 340101057 Problem Episodic mood disorder F39 Active 48984936 Problem Generalized anxiety disorder F41.1 Active 32946154 Problem Lumbago with sciatica, left side M54.42 Active 717517235 Problem Dyslipidemia E78.5 Active 239202716 Problem Other chronic pain G89.29 Active 93211342 Problem Polyneuropathy associated with underlying disease G63 Active 637647394 Problem Syncope, unspecified syncope type R55 Active 603786902 Problem Recurrent major depressive disorder, in partial remission F33.41 Active 49556564 Problem Other seasonal allergic rhinitis J30.2 Active 237862723 Problem Hammertoe of left foot M20.42 Active 926992191 Problem Lumbago with sciatica, right side M54.41 Active 567364991 Problem 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 Active 668033795 Problem Type 2 diabetes mellitus with diabetic polyneuropathy E11.42 Active 17918603 Problem Stage 2 chronic kidney disease N18.2 Active 164562422 Problem Vitamin D deficiency E55.9 Active 92307932 ALLERGIES No Information ENCOUNTERS Encounter Location Date Diagnosis [place] [id number] [address] Apr, [facility] [address] [address] Feb, [place] [id number] [place] [address] Jan, 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 [place] [id number] [address] Jan, [place] [address], [place] [address] Jan, Type 2 diabetes mellitus with diabetic polyneuropathy E11.42 [facility] [address], [place] [address] Jan, [facility] [address], [place] [address] Jan, Type 2 diabetes mellitus with diabetic polyneuropathy E11.42 [facility] [address] [place] [address] Dec, senior living current use of insulin Z79.4 [place] [id number] [place] [address] Dec, 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 [place] [id number] [place] [address] Dec, [place] [address] [place] [address] Nov, Hammertoe of left foot M20.42 ; Peroneal tendonitis of left lower extremity M76.72 ; Callus of foot L84 and Type 2 diabetes mellitus with diabetic polyneuropathy E11.42 [place] [address] [address] Nov, [place] [address] [place] [address] Nov, Encounter for immunization Z23 [place] [address] [address] Oct, [place] [address] [place] [address] Oct, [place] [address], [place] [address] Oct, Acute pancreatitis, unspecified complication status, unspecified pancreatitis type K85.90 [place] [id number] [address] Sep, 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 [place] [id number] [place] [address] Sep, [place] [id number] [place] [address] Sep, Type 2 diabetes mellitus with diabetic polyneuropathy E11.42 ; Stage 2 chronic kidney disease N18.2 and Recurrent major depressive disorder, in partial remission F33.41 [place] [id number] [place] [address] Sep, 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 [place] [id number] [place] [address] Sep, Acute maxillary sinusitis, recurrence not specified J01.00 and Bronchiolitis J21.9 [place] [id number] [place] [address] Jul, [place] [id number] [place] [address] Jun, Type 2 diabetes mellitus with diabetic polyneuropathy E11.42 ; Open wound T14.8XXA ; senior living current use of insulin Z79.4 ; Stage 2 chronic kidney disease N18.2 and Episodic mood disorder F39 [place] [address] [address] May, [place] [address], [place] [address] March, [place] [id number] [place] [address] March, Type 2 diabetes mellitus with diabetic [...] H60.502 and Non-adherence to medical treatment Z91.19 [facility] [place] [phone] Feb, Dental examination Z01.20 [facility] [id number] [place] [address] Feb, Labile hypertension R09.89 ; Syncope, unspecified syncope type R55 ; Chest pain, unspecified type R07.9 and Dyslipidemia E78.5 [facility] [address] [address] Feb, [facility] [address] [address] Jan, [address] [place] [phone] Jan, Dental examination Z01.20 [facility] [address] [address] Jan, Acute non-recurrent maxillary sinusitis J01.00 and Dyslipidemia E78.5 [address] [place] [id number] Jan, Dental examination Z01.20 and Dental caries K02.9 [address] [place] [id number] Jan, [place] [id number] [place] [id number] Dec, Dental examination Z01.20 [facility] [id number] [place] [address] Dec, Seasonal allergic rhinitis, unspecified trigger J30.2 [facility] [id number] [place] [address] Nov, [facility] [address] [address] Nov, Type 2 diabetes mellitus with diabetic polyneuropathy E11.42 ; Dyslipidemia E78.5 ; Lumbago with sciatica, right side M54.41 ; Lumbago with sciatica, left side M54.42 ; senior living current use of insulin Z79.4 ; Polyneuropathy associated with underlying disease G63 ; Stage 2 chronic kidney disease N18.2 and Syncope, unspecified syncope type R55 [address] [address] Oct, Type 2 diabetes mellitus with diabetic polyneuropathy E11.42 ; Acute otitis externa of left ear, unspecified type H60.502 ; Overweight (BMI 25.0- 29.9) E66.3 ; Dyslipidemia E78.5 and Polyneuropathy associated with underlying disease G63 [place] [address] [address] Sep, [address] [address] Aug, Abnormal mammogram R92.[address] [address] Aug, Type 2 diabetes mellitus with diabetic polyneuropathy E11.42 [place] [id number] [place] [address] Aug, [place] [id number] [place] [address] Aug, Type 2 diabetes mellitus with diabetic polyneuropathy E11.42 ; Syncope, unspecified syncope type R55 ; Other chronic pain G89.29 and Encounter for immunization Z23 [address] [address] 13 Aug, 2017 Type 2 diabetes mellitus with diabetic polyneuropathy E11.42 [place] [address] [address] Jul, Type 2 diabetes mellitus with diabetic polyneuropathy E11.42 and Serum creatinine raised R79.[id number] [place] [address] Jul, Type 2 diabetes mellitus with diabetic polyneuropathy E11.42 and Serum creatinine raised R79.89 [place] [id number] [place] [address] May, [place] [address] [place] [address] May, [place] [address] [address] May, Head injury, initial encounter S09.90XA ; Facial pain R51 ; Neck pain M54.2 and Fall, initial encounter W19.XXXA [place] [address] [address] May, Type 2 diabetes mellitus with diabetic polyneuropathy E11.42 [place] [address] [address] May, [place] [id number] [place] [address] May, Type 2 diabetes mellitus with diabetic polyneuropathy E11.42 [place] [address] [place] [address] May, Dyslipidemia E78.5 ; 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 ; Type 2 diabetes mellitus with diabetic polyneuropathy E11.42 ; Generalized anxiety disorder F41.1 and Other seasonal allergic rhinitis J30.2 [place] [address] [place] [address] Apr, Type 2 diabetes mellitus with diabetic polyneuropathy E11.42 [place] [id number] [place] [address] March, [place] [id number] [place] [address] March, Abnormal mammogram R92.8 [place] [address] [place] [address] Feb, Abnormal mammogram R92.8 [place] [id number] [place] [address] Feb, Diabetes type 2, uncontrolled E11.65 [place] [address] [place] [address] Feb, Screening for breast cancer Z12.39 [place] [address] [place] [address] Jan, Screening for breast cancer Z12.39 [place] [address] [place] [address] Jan, Type 2 diabetes mellitus with diabetic polyneuropathy E11.42 ; 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 ; Other viral agents as the cause of diseases classified elsewhere B97.89 and Acute upper respiratory infection, unspecified J06.9 [place] [address] [place] [address] Jan, [place] [address] [place] [address] Dec, Diabetes type 2, uncontrolled E11.65 ; Dyslipidemia E78.5 ; Generalized anxiety disorder F41.1 ; Depression, unspecified depression type F32.9 ; senior living current use of insulin Z79.4 and Polyneuropathy associated with underlying disease G63 [place] [address], [place] [address] Dec, [place] [address], [place] [address] Dec, [place] [id number] [place] [address] Dec, [place] [address] [address] Dec, [place] [id number] [place] [address] Oct, Well woman exam Z01.419 ; Screening for breast cancer Z12.39 ; senior living current use of insulin Z79.4 ; Type 2 diabetes mellitus without complications E11.9 and Encounter for immunization Z23 [place] [id number] [place] [address] Sep, [place] [address] [address] Sep, Diabetes type 2, uncontrolled E11.65 ; Dyslipidemia E78.5 and Depression, unspecified depression type F32.9 [place] [address] [address] Aug, Diabetes type 2, uncontrolled E11.65 ; Encounter for immunization Z23 ; Nasal congestion R09.81 and Ear pressure, bilateral H93.8X3 [place] [address] [address] Jul, Eustachian tube dysfunction, left H69.82 [place] [address] [address] Jun, [place] [address] [address] Jun, Hospital discharge follow-up Z09 ; Syncope, unspecified syncope type R55 and Acute suppurative otitis media of left ear without spontaneous rupture of tympanic membrane, recurrence not specified H66.002 [place] [id number] [place] [address] May, [place] [id number] [place] [address] May, [place] [address] [address] May, [place] [id number] [place] [address] May, Diabetes type 2, uncontrolled E11.65 ; [...] disturbance G47.9 and Generalized anxiety disorder F41.1 [facility] [id number] [place] [address] March, [facility] [id number] [place] [id number] March, Syncope, unspecified syncope type R55 and Depression, unspecified depression type F32.9 [facility] [id number] [place] [address] [id number] March, Orthostatic hypotension I95.1 [facility] [id number] [place] [address] [id number] March, [facility] [id number] [place] [address] March, [facility] [id number] [place] [address] [id number] Feb, [facility] [address] [facility] [id number] [place] [address] [id number] Feb, Dental examination Z01.20 [facility] [address] [place] [address] [id number] Jan, [facility] [id number] [place] [address] [id number] Jan, [facility] [id number] [place] [address] [id number] Dec, Diabetes type 2, uncontrolled E11.65 [facility] [address] [id number] Nov, [facility] [address] [id number] [id number] Nov, Encounter for dental examination Z01.20 [facility] [id number] [place] [address] [id number] Nov, Dental examination Z01.20 [facility] [place] [address] [facility] [id number] [place] [phone] Sep, Diabetes type 2, uncontrolled E11.65 [facility] [address] [facility] [address] [id number] [id number] Sep, Encounter for dental examination Z01.20 and Dental caries, unspecified K02.9 [facility] [place] [address] [id number] [place] [phone] Sep, Bipolar 2 disorder F31.81 [facility] [place] [id number] [place] [id number] Aug, [facility] [place] [id number] [place] [address] [id number] Aug, Follow up V67.9 [facility] [address], [place] [address] Jul, Bipolar disorder, unspecified 296.80 [facility] [place] [id number] [place] [id number] Jul, Thyroid enlarged 240.9 and Bipolar disorder, unspecified 296.80 [facility] [place] [id number] [place] [address] [id number] Jun, Diabetes mellitus type 2, uncontrolled 250.02 ; Bipolar disorder, unspecified 296.80 and Rash 782.1 [facility] [place] [id number] [place] [id number] Jun, [facility] [place] [id number] [place] [id number] May, Urinary tract infection 599.0 [facility] [place] [address] [id number] [place] [id number] May, Urinary tract infection 599.0 [facility] [place] [id number] [place] [phone] May, [facility] [place] [address] [id number] [place] [id number] May, Diabetes mellitus type 2, uncontrolled 250.02 and Pica in adults 307.52 [facility] [place] [id number] [place] [id number] Apr, Follow up V67.9 and Diabetes mellitus type 2, uncontrolled 250.02 [facility] [id number] [place] [id number] Apr, [facility] [address], [place] [address] Apr, [facility] [id number] [place] [address] [id number] Apr, Hyperlipidemia 272.4 [facility] [id number] [place] [address] [id number] March, Diabetes type 2, uncontrolled 250.02 [facility] [id number] [place] [address] [id number] March, Diabetes mellitus type 2, uncontrolled 250.02 [facility] [id number] [place] [address] [id number] March, Diabetes type 2, uncontrolled 250.02 [facility] [id number] [place] [address] [id number] March, [facility] [id number] [place] [address] March, [facility] [id number] [place] [address] [id number] Feb, [facility] [address], [place] [address] Feb, [facility] [place] [facility] [address] [address] Feb, [facility] [address] [id number] [place] [id number] Jan, [facility] [place] [facility] [id number] [place] [address] Jan, [facility] [place] [facility] [address], [place] [address] Jan, [facility] [address] [id number] [place] [id number] Jan, [facility] [place] [facility] [address] [facility] [id number] [address] Jan, [facility] [place] [facility] [address] [facility] [id number] [place] [address] Jan, [facility] [address] [facility] [id number] [place] [id number] Jan, [facility] [place] [facility] [address] [facility] [id number] [place] [address] Jan, [facility] [place] [facility] [address] [facility] [id number] [place] [address] Dec, [facility] [address] [facility] [id number] [place] [id number] Dec, [facility] [place] [facility] [id number] [place] [address] Dec, [facility] [address] [id number] [place] [id number] Dec, [facility] [place] [facility] [id number] [address] Dec, [facility] [address] [id number] [place] [id number] Dec, [facility] [place] [facility] [id number] [address] Dec, [facility] [place] [facility] [id number] [address] Dec, [facility] [address] [facility] [id number] [place] [id number] Dec, [facility] [address] [facility] [id number] [place] [id number] Dec, [facility] [place] [facility] [id number] [address] Dec, [facility] [place] [facility] [id number] [address] Nov, [facility] [place] [facility] [id number] [address] Oct, [facility] [place] [facility] [address] [facility] [id number] [address] Oct, [facility] [address] [facility] [id number] [place] [id number] Sep, [facility] [place] [facility] [address] [facility] [id number] [address] Sep, [facility] [address] [facility] [id number] [place] [id number] Sep, [facility] [place] [facility] [address] [facility] [id number][place] [address] Sep, [facility] [address] [facility] [id number] [place] [id number] Aug, [facility] [place] [facility] [address] [address] Aug, [facility] [address] [facility] [id number] [place] [id number] Aug, [facility] [place] [facility] [address] [facility] [id number][place] [address] Aug, [facility] [place] [facility] [address] [facility] [id number][place] [address] Jul, [facility] [place] [facility] [address] [facility] [id number][place] [address] Jul, [facility] [address] [facility] [id number] [place] [id number] Jul, [facility] [place] [facility] [address] [facility] [id number] [address] Jul, [facility] [address] [facility] [id number] [place] [id number] Jun, [facility] [place] [address] [facility] [id number] [place] [id number] Jun, [facility] [place] [facility] [address] [facility] [id number][place] [address] Jun, [facility] [place] [facility] [address] [id number], [place] [address] Jun, [facility] [address] [facility] [id number] [place] [id number] Jun, [facility] [place] [facility] [address] [facility] [id number] [place] [address] Jun, [facility] [address] [facility] [id number] [place] [id number] May, [facility] [place] [facility] [address] [id number] [place] [address] May, [facility] [place] [facility] [address] [facility] [id number] [place] [address] Apr, [facility] [place] [facility] [address] [facility] [id number] [place] [address] Apr, [facility] [address] [facility] [id number] [place] [id number] Apr, [facility] [place] [facility] [address] [facility] [id number] [address] Apr, [facility] [place] [facility] [address] [facility] [id number] [place] [address] Apr, [facility] [address] [facility] [id number] [place] [id number] March, [facility] [place] [facility] [address] [facility] [id number][place] [address] March, [facility] [place] [facility] [address] [facility] [id number][place] [address] March, [facility] [address] [facility] [id number] [place] [id number] March, [facility] [place] [facility] [address] [facility] [id number][place] [address] March, [facility] [address] [facility] [id number] [place] [id number] March, [facility] [place] [facility] [address] [facility] [id number][place] [address] March, [facility] [address] [facility] [id number] [place] [id number] Feb, [facility] [place] [facility] [address] [id number] [address] Feb, [facility] [place] [facility] [address] [id number] [address] Jan, [facility] [address] [facility] [id number] [place] [id number] Jan, [facility] [place] [facility] [address] [id number] [place] [address] Jan, [facility] [place] [facility] [address] [id number] [address] Jan, [facility] [address] [id number] [place] [id number] Jan, [facility] [address] [id number] [place] [id number] Dec, [facility] [place] [facility] [id number] [address] Dec, [facility] [place] [facility] [id number], [place] [address] Dec, [facility] [id number] [place] [id number] Dec, [facility] [place] [facility] [id number] [address] Dec, [facility] [address] [id number] [place] [id number] Dec, [facility] [place] [facility] [id number] [address] Dec, [facility] [place] [facility] [id number] [address] Dec, [facility] [address] [id number] [place] [id number] Dec, [facility] [address] [facility] [id number] [place] [id number] Nov, [facility] [address] [facility] [id number] [address] Nov, [facility] [place] [facility] [address] [facility] [id number][place] [address] Nov, [facility] [place] [address] [facility] [id number] [place] [id number] Nov, [facility] [place] [address] [facility] [id number] [place] [address] Oct, [facility] [address] [facility] [id number], [place] [address] Oct, [facility] [place] [address] [id number] [place] [id number] Oct, [facility] [id number] [address] Oct, [facility] [place] [facility] [id number] [address] Oct, [facility] [place] [facility] [id number], [place] [address] Oct, [facility] [place] [address] [id number] [place] [address] Oct, [facility] [place] [facility] [id number] [address] Oct, [facility] [place] [facility] [address] [facility] [id number], [place] [address] Sep, [facility] [place] [facility] [address] [facility] [id number][place] [address] Sep, [facility] [place] [address] [facility] [id number] [place] [id number] Sep, [facility] [place] [facility] [address] [facility] [id number][place] [address] Sep, [facility] [place] [facility] [address] [facility] [id number][place] [address] Sep, [facility] [place] [address] [id number] [place] [address] Sep, [facility] [place] [address] [id number] [place] [id number] Aug, [facility] [place] [facility] [address] [facility] [id number] [place] [address] Aug, [facility] [place] [facility] [address] [facility] [id number][place] [address] Aug, [facility] [place] [address] [id number] [place] [id number] Aug, [facility] [place] [address] [id number] [place] [id number] Aug, [facility] [place] [facility] [address] [facility] [id number], [place] [address] Aug, [facility] [place] [facility] [address] [id number] [address] Aug, [facility] [place] [facility] [address] [facility] [id number], [place] [address] Aug, [facility] [place] [address] [facility] [id number] [place] [id number] Jul, [facility] [place] [facility] [address] [facility] [id number], [place] [address] Jul, [facility] [place] [facility] [address] [facility] [id number], [place] [address] Jul, [facility] [address] [id number] [place] [id number] Jul, [facility] [address] [id number] [place] [address] Jul, [facility] [place] [facility] [address] [facility] [id number], [place] [address] May, [facility] [place] [facility] [address] [facility] [id number], [place] [address] Apr, [facility] [place] [address] [id number] [place] [id number] Apr, [facility] [place] [address] [id number] [place] [address] Apr, [facility] [address] [facility] [id number], [place] [address] March, [facility] [place] [address] [id number] [place] [address] March, [facility] [place] [address] [id number] [place] [id number] March, [facility] [place] [address] [id number] [place] 420[address] March, [facility] [place] [address] [id number] [place] [id number] March, [facility] [place] [address] [id number] [place] [id number] March, [facility] [id number], [place] [address] March, [facility] [address] [facility] [id number], [place] [address] March, [facility] [address] [facility] [id number], [place] [address] Feb, [facility] [place] [address] [id number] [place] [id number] Feb, [facility] [place] [address] [id number] [place] [id number] Feb, [facility] [place] [address] [id number] [place] [address] Feb, [facility] [place] [facility] [address] [facility] [id number] [place] [address] Feb, [facility] [place] [address] [id number] [place] [address] Feb, [facility] [place] [address] [id number] [place] [address] Jan, [facility] [place] [address] [id number] [place] [address]46[address] Jan, [facility] [place] [address] [id number] [place] [address] Dec, [facility] [place] [address] [id number] [place] [id number] Dec, [facility] [address] [facility] [id number], [place] [address] Dec, [facility] [place] [address] [id number] [place] 198713050 Dec, [facility] [place] [address] [id number] [place] [address]36[address] Dec, [facility] [place] [address] [id number] [place] [address]66[address] Dec, [facility] [place] [address] [id number] [place] [address] Dec, [facility] [id number], [place] [address] Nov, [facility] [place] [address] [id number] [place] [id number] Nov, [facility] [place] [address] [id number] [place] [id number] Nov, [facility] [place] [address] [id number] [place] [id number] Nov, [facility] [place] [address] [id number] [place] [id number] Nov, [facility] [id number], [place] [address] Oct, [facility] [place] [address] [id number] [place] [address] Oct, [facility] [address] [id number] [place] 814053669 Oct, [facility] [place] [address] [id number] [place] [address]584418[address] Oct, [facility] [id number], [place] [address] Oct, [facility] [address] [id number], [place] [address] Oct, [facility] [place] [facility] [address] [id number], [place] [address] Oct, [facility] [place] [address] [facility] [id number] [place] [address]47[place] Sep, [facility] [place] [facility] [address] [facility] [id number], [place] [address] Sep, [facility] [place] [facility] [address] [facility] [id number], [place] [address] Sep, [facility] [place] [address] [id number] [place] [address] Sep, [facility] [place] [address] [id number] [place] [id number] Sep, [facility] [place] [address] [facility] [id number] [place] [id number] Sep, [facility] [place] [facility] [address] [facility] [id number] [place] [address] Sep, [facility] [address] [facility] [id number], [place] [address] Sep, [facility] [place] [facility] [address] [facility] [id number], [place] [address] Sep, [facility] [place] [id number] [place] [address] Aug, [facility] [place] [facility] [address] [facility] [id number], [place] [address] Aug, [facility] [place] [address] [facility] [id number] [place] [id number] Aug, [facility] [place] [facility] [address] [facility] [id number], [place] [address] Aug, [facility] [place] [facility] [address] [facility] [id number], [place] [address] Aug, [facility] [place] [address] [facility] [id number] [place] [id number] Aug, [facility] [place] [address] [id number] [place] [address] Aug, [facility] [address] [facility] [id number] [place] [address] Aug, [facility] [place] [address] [id number] [place] 6298726[place] Aug, [facility] [place] [address] [id number] [place] [id number] Jul, [facility] [place] [address] [id number] [place] [id number] Jun, [facility] [place] [address] [id number] [place] 5250[place]208 May, [facility] [place] [address] [id number] [place] 816018658 May, [facility] [place] [address] [id number] [place] [id number] May, [facility] [place] [address] [id number] [place] 7665[address]191 May, [facility] [place] [address] [id number] [place] 686234581 May, [facility] [place] [address] [id number] [place] 395717887 May, [facility] [place] [address] [id number] [place] 428858851 May, [facility] [place] [address] [id number] [place] 923431792 Apr, [facility] [place] [address] [id number] [place] 185[place] Apr, [facility] [place] [address] [id number] [place] [id number] Apr, [facility] [place] [address] [id number] [place] 8385437[address] Apr, [facility] [place] [address] [id number] [place] 946952226 Apr, [facility] [place] [address] [id number] [place] 149992936 Apr, [facility] [place] [address] [id number] [place] 8349[address] March, [facility] [place] [address] [id number] [place] 70807[address]12 March, [facility] [place] [address] [id number] [place] 627985138 Feb, [facility] [place] [address] [id number] [place] [id number] Feb, [facility] [place] [address] [id number] [place] 816014572 Feb, [facility] [place] [address] [id number] [place] 903217692 Jan, [facility] [place] [address] [id number] [place] 42447264[place] Jan, [facility] [place] [address] [id number] [place] 253626297 Jan, [facility] [place] [address] [id number] [place] 734359988 Jan, [facility] [place] [address] [id number] [place] 518[address]1777 Dec, [facility] [id number], [place] [address] Dec, [facility] [place] [address] [id number] [place] 609[address] Dec, [facility] [place] [address] [id number] [place] 7410[place]171 Nov, [facility] [place] [address] [id number] [place] 739656472 Nov, [facility] [place] [address] [id number] [place] 380726673 Nov, [facility] [id number] [place] [address] Oct, [facility] [id number] [place] [address] Oct, [facility] [id number] [place] [address] Oct, [facility] [place] [facility] [address] [id number] [place] [address] Aug, [facility] [place] [facility] [address] [id number] [place] [address] Aug, [facility] [place] [facility] [address] [id number] [place] [address] Aug, [facility] [place] [facility] [address] [id number] [place] [address] March, [facility] [place] [facility] [address] [id number] [place] [address] Oct, [facility] [place] [facility] [address] [id number] [place] [address] Oct, [facility] [place] [facility] [address] [id number] [place] [address] Sep, [facility] [place] [facility] [address] [id number] [place] [address] Sep, [facility] [place] [facility] [address] [id number] [place] [address] Sep, [facility] [place] [facility] [address] [id number] [place] [address] Aug, [facility] [place] [facility] [address] [id number] [place] [address] Aug, [facility] [place] [facility] [address] [id number] [place] [address] Jun, [facility] [place] [facility] [address] [id number] [place] [address] May, [facility] [place] [facility] [address] [id number] [place] [address] Jan, [facility] [place] [facility] [address] [id number] [place] [address] Nov, [facility] [place] [facility] [address] [id number] [place] [address] Oct, [facility] [address] [id number] [address] Sep, [facility] [id number], [place] [address] Sep, [facility] [address] [id number] [address] Sep, [facility] [id number], [place] [address] Sep, [facility] [id number], [place] [address] Sep, [facility] [id number], [place] [address] Aug, [facility] [id number] [address] Aug, [facility] [address] [id number] [address] Jul, [facility] [address] [id number], [place] [address] Jun, IMMUNIZATIONS No Known Immunizations SOCIAL HISTORY Never Assessed REASON FOR VISIT [facility] [place] CARE VITAL [...] 08/2016 Hospitalization History chest pain ED visit [facility], pt scheduled for heart cath on May Hospitalization History [place] 2012 Hospitalization History Chest pain-[facility] 12/22/16
--- OUTSIDE RECORDS SUMMARY | 2019-05-21 00:11 | XMS REPORT ---
Author Author Migration, Doctor Organization 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 Role Phone Migration, Doctor Unavailable Unavailable PROBLEMS Type Condition ICD9-CM Code DXN09-LA Code Onset Dates Condition Status SNOMED Code Problem Serum creatinine raised R79.89 Active 833373396 Problem Episodic mood disorder F39 Active 85224871 Problem Generalized anxiety disorder F41.1 Active 60655739 Problem Lumbago with sciatica, left side M54.42 Active 577001888 Problem Dyslipidemia E78.5 Active 588263363 Problem Other chronic pain G89.29 Active 44097216 Problem Polyneuropathy associated with underlying disease G63 Active 991594117 Problem Syncope, unspecified syncope type R55 Active 836678747 Problem Recurrent major depressive disorder, in partial remission F33.41 Active 68864849 Problem Other seasonal allergic rhinitis J30.2 Active 378263168 Problem Hammertoe of left foot M20.42 Active 816550238 Problem Lumbago with sciatica, right side M54.41 Active 125019526 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 [place] [id number] [address] Jan, [place] [address] [address] Jan, Type 2 diabetes mellitus with diabetic polyneuropathy E11.42 [facility] [address] [address] Jan, [facility] [address] [address] Jan, Type 2 diabetes mellitus with diabetic polyneuropathy E11.42 [facility] [address] [place] [address] Dec, half-way current use of insulin Z79.4 [place] [id number] [place] [address] Dec, 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 [place] [id number] [place] [address] Dec, [place] [address] [place] [address] Nov, Hammertoe of left foot M20.42 ; Peroneal tendonitis of left lower extremity M76.72 ; Callus of foot L84 and Type 2 diabetes mellitus with diabetic polyneuropathy E11.42 [place] [address] [address] Nov, [place] [address] [place] [address] Nov, Encounter for immunization Z23 [place] [address] [address] Oct, [place] [address] [place] [address] Oct, [place] [address] [address] Oct, Acute pancreatitis, unspecified complication status, unspecified pancreatitis type K85.90 [place] [id number] [address] Sep, 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 [place] [id number] [place] [address] Sep, [place] [id number] [place] [address] Sep, Type 2 diabetes mellitus with diabetic polyneuropathy E11.42 ; Stage 2 chronic kidney disease N18.2 and Recurrent major depressive disorder, in partial remission F33.41 [place] [id number] [place] [address] Sep, 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 [place] [id number] [place] [address] Sep, Acute maxillary sinusitis, recurrence not specified J01.00 and Bronchiolitis J21.9 [place] [id number] [place] [address] Jul, [place] [id number] [place] [address] Jun, Type 2 diabetes mellitus with diabetic polyneuropathy E11.42 ; Open wound T14.8XXA ; half-way current use of insulin Z79.4 ; Stage 2 chronic kidney disease N18.2 and Episodic mood disorder F39 [place] [address] [address] May, [place] [address] [address] March, [place] [id number] [place] [address] March, Type 2 diabetes mellitus with diabetic [...] H60.502 and Non-adherence to medical treatment Z91.19 [facility] [address] [place] [phone] Feb, Dental examination Z01.20 [facility] [id number] [place] [address] Feb, Labile hypertension R09.89 ; Syncope, unspecified syncope type R55 ; Chest pain, unspecified type R07.9 and Dyslipidemia E78.5 [facility] [address] [address] Feb, [facility] [address] [address] Jan, [address] [place] [address] [phone] Jan, Dental examination Z01.20 [facility] [address] [address] Jan, Acute non-recurrent maxillary sinusitis J01.00 and Dyslipidemia E78.[address] [place] [address] [id number] Jan, Dental examination Z01.20 and Dental caries K02.9 [address] [place] [address] [phone] Jan, [place] [id number] [place] [address] [id number] Dec, Dental examination Z01.20 [facility] [id number] [place] [address] Dec, Seasonal allergic rhinitis, unspecified trigger J30.2 [facility] [id number] [place] [address] Nov, [facility] [address] [address] Nov, Type 2 diabetes mellitus with diabetic polyneuropathy E11.42 ; Dyslipidemia E78.5 ; Lumbago with sciatica, right side M54.41 ; Lumbago with sciatica, left side M54.42 ; half-way current use of insulin Z79.4 ; Polyneuropathy associated with underlying disease G63 ; Stage 2 chronic kidney disease N18.2 and Syncope, unspecified syncope type R55 [address] [address] Oct, Type 2 diabetes mellitus with diabetic polyneuropathy E11.42 ; Acute otitis externa of left ear, unspecified type H60.502 ; Overweight (BMI 25.0- 29.9) E66.3 ; Dyslipidemia E78.5 and Polyneuropathy associated with underlying disease G63 [place] [address] [address] Sep, [address] [address] Aug, Abnormal mammogram R92.[address] [address] Aug, Type 2 diabetes mellitus with diabetic polyneuropathy E11.42 [place] [id number] [place] [address] Aug, [place] [id number] [place] [address] Aug, Type 2 diabetes mellitus with diabetic polyneuropathy E11.42 ; Syncope, unspecified syncope type R55 ; Other chronic pain G89.29 and Encounter for immunization Z23 [address] [address] 13 Aug, 2017 Type 2 diabetes mellitus with diabetic polyneuropathy E11.42 [place] [address] [address] Jul, Type 2 diabetes mellitus with diabetic polyneuropathy E11.42 and Serum creatinine raised R79.[id number] [place] [address] Jul, Type 2 diabetes mellitus with diabetic polyneuropathy E11.42 and Serum creatinine raised R79.89 [place] [id number] [place] [address] May, [place] [address] [place] [address] May, [place] [address] [address] May, Head injury, initial encounter S09.90XA ; Facial pain R51 ; Neck pain M54.2 and Fall, initial encounter W19.XXXA [place] [address] [address] May, Type 2 diabetes mellitus with diabetic polyneuropathy E11.42 [place] [address] [address] May, [place] [address] [place] [address] May, Type 2 diabetes mellitus with diabetic polyneuropathy E11.42 [place] [address] [place] [address] May, Dyslipidemia E78.5 ; 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 ; Type 2 diabetes mellitus with diabetic polyneuropathy E11.42 ; Generalized anxiety disorder F41.1 and Other seasonal allergic rhinitis J30.2 [place] [address] [place] [address] Apr, Type 2 diabetes mellitus with diabetic polyneuropathy E11.42 [place] [address] [place] [address] March, [place] [address] [place] [address] March, Abnormal mammogram R92.8 [place] [address] [place] [address] Feb, Abnormal mammogram R92.8 [place] [address] [place] [address] Feb, Diabetes type 2, uncontrolled E11.65 [place] [address] [place] [address] Feb, Screening for breast cancer Z12.39 [place] [address] [place] [address] Jan, Screening for breast cancer Z12.39 [place] [address] [place] [address] Jan, Type 2 diabetes mellitus with diabetic polyneuropathy E11.42 ; 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 ; Other viral agents as the cause of diseases classified elsewhere B97.89 and Acute upper respiratory infection, unspecified J06.9 [place] [address] [place] [address] Jan, [place] [address] [place] [address] Dec, Diabetes type 2, uncontrolled E11.65 ; Dyslipidemia E78.5 ; Generalized anxiety disorder F41.1 ; Depression, unspecified depression type F32.9 ; half-way current use of insulin Z79.4 and Polyneuropathy associated with underlying disease G63 [place] [address] [address] Dec, [place] [address] [address] Dec, [place] [address] [id number] [place] [address] Dec, [place] [address] [address] Dec, [place] [address] [place] [address] Oct, Well woman exam Z01.419 ; Screening for breast cancer Z12.39 ; half-way current use of insulin Z79.4 ; Type 2 diabetes mellitus without complications E11.9 and Encounter for immunization Z23 [place] [address] [place] [address] Sep, [place] [address] [address] Sep, Diabetes type 2, uncontrolled E11.65 ; Dyslipidemia E78.5 and Depression, unspecified depression type F32.9 [place] [address] [address] Aug, Diabetes type 2, uncontrolled E11.65 ; Encounter for immunization Z23 ; Nasal congestion R09.81 and Ear pressure, bilateral H93.8X3 [place] [address] [address] Jul, Eustachian tube dysfunction, left H69.82 [place] [address] [address] Jun, [place] [address] [address] Jun, Hospital discharge follow-up Z09 ; Syncope, unspecified syncope type R55 and Acute suppurative otitis media of left ear without spontaneous rupture of tympanic membrane, recurrence not specified H66.002 [place] [id number] [place] [address] May, [place] [id number] [place] [address] May, [place] [address] [address] May, [place] [address] [place] [address] May, Diabetes type 2, uncontrolled E11.65 ; [...] disturbance G47.9 and Generalized anxiety disorder F41.1 [facility] [address] [place] [address] March, [facility] [id number] [place] [address] [phone] March, Syncope, unspecified syncope type R55 and Depression, unspecified depression type F32.9 [facility] [id number] [place] [address] [phone] March, Orthostatic hypotension I95.1 [facility] [id number] [place] [address] [phone] March, [facility] [address] [place] [address] March, [facility] [id number] [place] [address] [id number] Feb, [facility] [address] [facility] [id number] [place] [address] [id number] Feb, Dental examination Z01.20 [facility] [address] [place] [address] [id number] Jan, [facility] [id number] [place] [address] [id number] Jan, [facility] [id number] [place] [address] [phone] Dec, Diabetes type 2, uncontrolled E11.65 [facility] [address] [id number] Nov, [facility] [address] [id number] [id number] Nov, Encounter for dental examination Z01.20 [facility] [id number] [place] [address] [id number] Nov, Dental examination Z01.20 [facility] [address] [facility] [id number][place] [phone] Sep, Diabetes type 2, uncontrolled E11.65 [facility] [address] [facility] [address] [id number][place] [phone] Sep, Encounter for dental examination Z01.20 and Dental caries, unspecified K02.9 [facility] [address] [id number][place] [id number] Sep, Bipolar 2 disorder F31.81 [facility] [id number], [place] [id number] Aug, [facility] [id number] [place] [address] [id number] Aug, Follow up V67.9 [facility] [address] [address] Jul, Bipolar disorder, unspecified 296.80 [facility] [id number], [place] [id number] Jul, Thyroid enlarged 240.9 and Bipolar disorder, unspecified 296.80 [facility] [id number] [place] [address] [id number] Jun, Diabetes mellitus type 2, uncontrolled 250.02 ; Bipolar disorder, unspecified 296.80 and Rash 782.1 [facility] [id number], [place] [id number] Jun, [facility] [id number], [place] [id number] May, Urinary tract infection 599.0 [facility] [address] [id number][place] [id number] May, Urinary tract infection 599.0 [facility] [id number], [place] [id number] May, [facility] [address] [id number], [place] [phone] May, Diabetes mellitus type 2, uncontrolled 250.02 and Pica in adults 307.52 [facility] [id number], [place] [id number] Apr, Follow up V67.9 and Diabetes mellitus type 2, uncontrolled 250.02 [facility] [id number], [place] [id number] Apr, [facility] [address] [address] Apr, [facility] [id number] [place] [address] [id number] Apr, Hyperlipidemia 272.4 [facility] [id number] [place] [address] [id number] March, Diabetes type 2, uncontrolled 250.02 [facility] [id number] [place] [address] [id number] March, Diabetes mellitus type 2, uncontrolled 250.02 [facility] [id number] [place] [address] [id number] March, Diabetes type 2, uncontrolled 250.02 [facility] [id number] [place] [address] [id number] March, [facility] [id number], [place] [id number] March, [facility] [id number] [place] [address] [id number] Feb, [facility] [address] [address] Feb, [facility] [place] [facility] [address] [address] Feb, [facility] [address] [id number], [place] [id number] Jan, [facility] [place] [facility] [id number] [place] [address] Jan, [facility] [place] [facility] [address] [address] Jan, [facility] [address] [id number], [place] [id number] Jan, [facility] [place] [facility] [address] [facility] [id number] [place] [address] Jan, [facility] [place] [facility] [address] [facility] [id number] [place] [address] Jan, [facility] [address] [facility] [id number], [place] [id number] Jan, [facility] [place] [facility] [address] [facility] [id number] [place] [address] Jan, [facility] [place] [facility] [address] [facility] [id number] [place] [address] Dec, [facility] [address] [facility] [id number] [place] [phone] Dec, [facility] [place] [facility] [id number] [place] [address] Dec, [facility] [address] [id number], [place] [id number] Dec, [facility] [place] [facility] [id number] [address] Dec, [facility] [address] [id number], [place] [id number] Dec, [facility] [place] [facility] [id number] [address] Dec, [facility] [place] [facility] [id number] [address] Dec, [facility] [address] [facility] [id number], [place] [id number] Dec, [facility] [address] [facility] [id number], [place] [id number] Dec, [facility] [place] [facility] [id number] [address] Dec, [facility] [place] [facility] [id number] [address] Nov, [facility] [place] [facility] [id number] [address] Oct, [facility] [place] [facility] [address] [facility] [id number] [place] [address] Oct, [facility] [address] [facility] [id number], [place] [id number] Sep, [facility] [place] [facility] [address] [facility] [id number] [place] [address] Sep, [facility] [address] [facility] [id number], [place] [id number] Sep, [facility] [place] [facility] [address] [facility] [id number] [place] [address] Sep, [facility] [address] [facility] [id number], [place] [id number] Aug, [facility] [place] [facility] [address] [address] Aug, [facility] [address] [facility] [id number], [place] [id number] Aug, [facility] [place] [facility] [address] [facility] [id number] [place] [address] Aug, [facility] [place] [facility] [address] [facility] [id number] [place] [address] Jul, [facility] [place] [facility] [address] [facility] [id number] [place] [address] Jul, [facility] [address] [facility] [id number], [place] [id number] Jul, [facility] [place] [facility] [address] [facility] [id number] [place] [address] Jul, [facility] [address] [facility] [id number], [place] [id number] Jun, [facility] [address] [facility] [id number], [place] [id number] Jun, [facility] [place] [facility] [address] [facility] [id number] [place] [address] Jun, [facility] [place] [facility] [address] [id number] [place] [address] Jun, [facility] [address] [facility] [id number] [place] [id number] Jun, [facility] [place] [facility] [address] [facility] [id number] [place] [address] Jun, [facility] [address] [facility] [id number] [place] [id number] May, [facility] [place] [facility] [address] [id number] [place] [address] May, [facility] [place] [facility] [address] [facility] [id number] [place] [address] Apr, [facility] [place] [facility] [address] [facility] [id number] [place] [address] Apr, [facility] [address] [facility] [id number] [place] [id number] Apr, [facility] [place] [facility] [address] [facility] [id number] [address] Apr, [facility] [place] [facility] [address] [facility] [id number] [place] [address] Apr, [facility] [address] [facility] [id number][place] [id number] March, [facility] [place] [facility] [address] [facility] [id number] [place] [address] March, [facility] [place] [facility] [address] [facility] [id number] [place] [address] March, [facility] [address] [facility] [id number][place] [id number] March, [facility] [place] [facility] [address] [facility] [id number] [place] [address] March, [facility] [address] [facility] [id number] [place] [id number] March, [facility] [place] [facility] [address] [facility] [id number] [address] March, [facility] [address] [facility] [id number] [place] [id number] Feb, [facility] [place] [facility] [address] [id number] [address] Feb, [facility] [place] [facility] [address] [id number] [address] Jan, [facility] [address] [facility] [id number][place] [id number] Jan, [facility] [place] [facility] [address] [id number] [address] Jan, [facility] [place] [facility] [address] [id number] [address] Jan, [facility] [address] [id number] [id number] Jan, [facility] [address] [id number] [id number] Dec, [facility] [place] [facility] [id number] [address] Dec, [facility] [place] [facility] [id number], [place] [address] Dec, [facility] [id number], [place] [id number] Dec, [facility] [place] [facility] [address] [address] Dec, [facility] [address] [id number], [place] [id number] Dec, [facility] [place] [facility] [address] [address] Dec, [facility] [place] [facility] [address] [address] Dec, [facility] [address] [id number], [place] [id number] Dec, [facility] [address] [facility] [id number][place] [address] Nov, [facility] [address] [facility] [id number] [address] Nov, [facility] [address] [facility] [id number] [place] [address] Nov, [facility] [address] [facility] [id number][place] [id number] Nov, [facility] [address] [facility] [id number], [place] [address]79[address] Oct, [facility] [address] [facility] [id number] [place] [address] Oct, [facility] [address] [id number], [place] [id number] Oct, [facility] [address]100[place] [address] Oct, [facility] [place] [facility] [address] [address] Oct, [facility] [place] [facility] [address]100[place] [address] Oct, [facility] [address] [id number], [place] [id number] Oct, [facility] [address] [address] Oct, [facility] [place] [facility] [address] [facility] [id number] [place] [address] Sep, [facility] [place] [address] [facility] [id number] [place] [address] Sep, [facility] [address] [facility] [id number], [place] [id number] Sep, [facility] [address] [facility] [id number] [place] [address] Sep, [facility] [address] [facility] [id number] [address] Sep, [facility] [address] [id number] [place] [id number] Sep, [facility] [address] [id number] [place] [id number] Aug, [facility] [place] [facility] [address] [facility] [id number] [place] [address] Aug, [facility] [place] [facility] [address] [facility] [id number] [place] [address] Aug, [facility] [address] [id number] [place] [id number] Aug, [facility] [address] [id number] [place] [id number] Aug, [facility] [address] [facility] [id number] [address] Aug, [facility] [place] [facility] [address] [id number] [address] Aug, [facility] [place] [facility] [address] [facility] [id number] [place] [address] Aug, [facility] [address] [facility] [id number], [place] [id number] Jul, [facility] [place] [facility] [address] [facility] [id number] [place] [address] Jul, [facility] [facility] [address] [facility] [id number] [place] [address] Jul, [facility] [address] [id number], [place] [id number] Jul, [facility] [address] [id number], [place] [id number] Jul, [facility] [facility] [address] [facility] [id number] [place] [address] May, [facility] [facility] [address] [facility] [id number] [place] [address] Apr, [facility] [address] [id number] [place] [id number] Apr, [facility] [address] [id number] [place] [id number] Apr, [facility] [address] [facility] [id number] [place] [address] March, [facility] [address] [id number] [place] [id number] March, [facility] [address] [id number] [place] [address]68231766 March, [facility] [address] [id number] [place] [id number] March, [facility] [address] [id number] [place] [address]232[address] March, [facility] [address] [id number] [place] [id number] March, [facility] [address]65100[place] [address] March, [facility] [address] [facility] [id number] [place] [address] March, [facility] [address] [facility] [id number] [place] [address] Feb, [facility] [address] [id number] [place] [address]35[address]80[address] Feb, [facility] [address] [id number], [place] 028233478 Feb, [facility] [address] [id number] [place] [id number] Feb, [facility] [facility] [address] [facility] [id number] [place] [address] Feb, [facility] [address] [id number] [place] [id number] Feb, [facility] [address] [id number] [place] [id number] Jan, [facility] [address] [id number] [place] [id number] Jan, [facility] [address] [id number] [place] 978644832 Dec, [facility] [address] [id number] [place] [address]60827272 Dec, [facility] [address] [facility] [id number] [place] [address] Dec, [facility] [address] [id number] [place] [id number] Dec, [facility] [address] [id number] [place] 1366695[address] Dec, [facility] [address] [id number] [place] [id number] Dec, [facility] [address] [id number] [place] [id number] Dec, [facility] [address]00565100[place] [address] Nov, [facility] [address] [id number] [place] [id number] Nov, [facility] [address] [id number] [place] 013821130 Nov, [facility] [address] [id number] [place] [id number] Nov, [facility] [address] [id number] [place] 630842652 Nov, [facility] [address]005[address]100[place] [address] Oct, [facility] [address] [id number] [place] 610391525 Oct, [facility] [address] [id number] [place] [id number] Oct, [facility] [address] [id number] [place] [id number] Oct, [facility] [address]100[place] [address] Oct, [facility] [address] [id number] [address] Oct, [facility] [place] [facility] [address] [id number] [place] [address] Oct, [facility] [address] [facility] [id number], [place] 864882749 Sep, [facility] [facility] [address] [facility] [id number] [place] [address] Sep, [facility] [facility] [address] [facility] [id number] [place] [address] Sep, [facility] [address] [id number] [place] [id number] Sep, [facility] [address] [id number] [place] [address] [id number] Sep, [facility] [address] [facility] [id number] [place] [address] [id number] Sep, [facility] [place] [facility] [address] [facility] [id number] [place] [address] Sep, [facility] [facility] [address] [facility] [id number] [place] [address] Sep, [facility] [address] [facility] [id number] [place] [address] Sep, [facility] [id number], [place] 947476591 Aug, [facility] [facility] [address] [facility] [id number] [place] [address] Aug, [facility] [address] [facility] [id number], [place] 325891561 Aug, [facility] [facility] [address] [facility] [id number] [place] [address] Aug, [facility] [facility] [address] [facility] [id number] [place] [address] Aug, [facility] [address] [facility] [id number], [place] [id number] Aug, [facility] [address] [id number] [place] 264468771 Aug, [facility] [address] [facility] [id number] [place] [address] Aug, [facility] [address] [id number] [place] 072116546 Aug, [facility] [address] [id number] [place] [id number] Jul, [facility] [address] [id number] [place] 784778403 Jun, [facility] [address] [id number] [place] 417523381 May, [facility] [address] [id number] [place] 926761049 May, [facility] [address] [id number] [place] [id number] May, [facility] [address] [id number] [place] [id number] May, [facility] [address] [id number] [place] 570268976 May, [facility] [address] [id number] [place] [id number] May, [facility] [address] [id number] [place] [id number] May, [facility] [address] [id number] [place] [id number] Apr, [facility] [address] [id number] [place] [id number] Apr, [facility] [address] [id number] [place] [id number] Apr, [facility] [address] [id number] [place] 116638023 Apr, [facility] [address] [id number] [place] 712509285 Apr, [facility] [address] [id number] [place] 707259762 Apr, [facility] [address] [id number] [place] 885777406 March, [facility] [address] [id number] [place] 851712846 March, [facility] [place] [address] [id number] [place] [id number] Feb, [facility] [address] [id number] [place] [id number] Feb, [facility] [address] [id number] [place] 045754239 Feb, [facility] [address] [id number] [place] [id number] Jan, [facility] [place] [address] [id number] [place] [id number] Jan, [facility] [address] [id number] [place] [id number] Jan, [facility] [address] [id number] [place] [id number] Jan, [facility] [address] [id number] [place] [id number] Dec, [facility] [address]005[address]100[place] [address] Dec, [facility] [address] [id number] [place] [id number] Dec, [facility] [address] [id number] [place] 604179313 Nov, [facility] [address] [id number] [place] [id number] Nov, [facility] [address] [id number] [place] [id number] Nov, [facility] [id number] [place] [address] Oct, [facility] [id number] [place] [address] Oct, [facility] [id number] [place] [address] Oct, [facility] [place] [facility] [address] [id number] [place] [address] Aug, [facility] [place] [facility] [address] [id number] [place] [address] Aug, [facility] [place] [facility] [address] [id number] [place] [address] Aug, [facility] [place] [facility] [address] [id number] [place] [address] March, [facility] [place] [facility] [address] [id number] [place] [address] Oct, [facility] [place] [facility] [address] [id number] [place] [address] Oct, [facility] [place] [facility] [address] [id number] [place] [address] Sep, [facility] [place] [facility] [address] [id number] [place] [address] Sep, [facility] [place] [facility] [address] [id number] [place] [address] Sep, [facility] [place] [facility] [address] [id number] [place] [address] Aug, [facility] [place] [facility] [address] [id number] [place] [address] Aug, [facility] [place] [facility] [address] [id number] [place] [address] Jun, [facility] [place] [facility] [address] [id number] [place] [address] May, [facility] [place] [facility] [address] [id number] [place] [address] Jan, [facility] [place] [facility] [address] [id number] [place] [address] Nov, [facility] [place] [facility] [address] [id number] [place] [address] Oct, [facility] [address] [id number] [address] Sep, [facility] [address]100[place] [address] Sep, [facility] [address] [id number] [address] Sep, [facility] [address]100[place] [address] Sep, [facility] [address]100[place] [address] Sep, [facility] [address]100[place] [address] Aug, [facility] [address]100[place] [address] Aug, [facility] [address] [id number] [address] Jul, [facility] [address] [id number] [address] Jun, IMMUNIZATIONS No Known Immunizations SOCIAL HISTORY Never Assessed REASON FOR VISIT [facility] [place] PLAN OF CARE VITAL SIGNS MEDICATIONS Unknown [...] Hospitalization History chest pain ED visit [facility], pt scheduled for heart cath on May Hospitalization History Ana 2012 Hospitalization History Chest pain-[facility] 12/22/16
[2019-05-21 00:32] LABS: BILIRUBIN,URINE NEGATIVE (NEGATIVE); CLARITY,URINE CLEAR; COLOR,URINE YELLOW; GLUCOSE, URINE (UA) 4+ (NEGATIVE); KETONES,URINE NEGATIVE (NEGATIVE); LEUKOCYTE ESTERASE ,URINE 1+ (NEGATIVE); NITRITE,URINE NEGATIVE (NEGATIVE); PH,URINE 5 (5-9); PROTEIN,URINE NEGATIVE (NEGATIVE); UROBILINOGEN,URINE NORMAL (NORMAL)
[2019-05-21 00:42] LABS: BACTERIA,URINE TRACE /HPF; WBC,URINE 0-2 /HPF
[2019-05-21 00:50] LABS: BASOPHILS % (AUTO) 1 % (0-10); EOSINOPHILS # (AUTO) 0.5 10^3/uL (0.0-0.3); EOSINOPHILS % (AUTO) 6 % (0-10); HEMATOCRIT 37 % (35-52); HEMOGLOBIN 12.3 G/DL (11.5-16.0); LYMPHOCYTES # (AUTO) 2.4 X 10^3 (1.0-4.0); LYMPHOCYTES % (AUTO) 31 % (12-44); MEAN CORPUSCULAR HGB CONC 33 G/DL (32-36); MEAN CORPUSCULAR VOLUME 95 FL (80-99); MEAN PLATELET VOLUME 10.1 FL (7.4-10.4); MONOCYTES # (AUTO) 0.7 X 10^3 (0.0-1.0); MONOCYTES % (AUTO) 9 % (0-12); NEUTROPHILS # (AUTO) 4.1 X 10^3 (1.8-7.8); NEUTROPHILS % (AUTO) 54 % (42-75); PLATELET COUNT 194 10^3/uL (130-400); RED CELL DISTRIBUTION WIDTH 12.8 % (10.0-14.5); WHITE BLOOD COUNT 7.6 10^3/uL (4.3-11.0)
[2019-05-21 00:52] LABS: MEAN CORPUSCULAR HEMOGLOBIN 31 PG (25-34)
[2019-05-21 01:04] LABS: ALBUMIN 3.9 GM/DL (3.2-4.5); BILIRUBIN,TOTAL 0.6 MG/DL (0.1-1.0); CALCIUM 9.7 MG/DL (8.5-10.1); CREATININE SERUM 1.37 MG/DL (0.60-1.30); POTASSIUM 3.5 MMOL/L (3.6-5.0); TOTAL PROTEIN 8.2 GM/DL (6.4-8.2)
--- NOTE | 2019-05-21 01:09 | ED Abdominal Pain ---
General Chief Complaint: General Problems/Pain Stated Complaint: PAIN IN SIDE AND BACK, NAUSEA Source of Information: Patient, Spouse Exam Limitations: No Limitations History of Present Illness Date Seen by Provider: May 21, 2019 Time Seen by Provider: 01:07 Initial Comments Patient presents to ER by private conveyance with her significant other and chief complaint that she's having some right back and flank pain radiating around to her right upper outer abdomen. She describes the pain is sharp and burning and even to light touch. She doesn't history of chickenpox as a child and has had shingles rash in the past in a similar place on her back. She has her gallbladder out. She has a history of pancreatitis but she's not having any pain over her stomach. No nausea fever chills diarrhea constipation dysuria. No history of kidney stones. The pain started late last night and she took Neurontin which took her pain away so she could go back to sleep. She did recently have a viral upper respiratory tract infection. She has not been on antibiotics. Allergies and Home Medications Allergies Coded Allergies: codeine (Verified Allergy, Unknown, HEART PALPATATION, 02/04/15) Home Medications Albuterol 17 Gm Aerosol, 2 PUFF IH Q4H PRN for SHORTNESS OF BREATH, (Reported) Aspirin 81 Mg Tabec, 81 MG PO Q48H, (Reported) Atorvastatin Calcium 40 Mg Tablet, 40 MG PO HS, (Reported) Cetirizine HCl 10 Mg Tablet, 10 MG PO HS, (Reported) Duloxetine HCl 60 Mg Capsule.dr, 60 MG PO HS, (Reported) Fluticasone Propionate 16 Gm [place].susp, 1 SPRAY NA DAILY PRN for ALLERGIES, (Reported) Hydrocodone Bit/Acetaminophen 1 Tab Tab, 1-2 EACH PO Q6H PRN for PAIN-MODERATE Prescribed by: GEOVANI LUTZ on 10/19/18 1357 Insulin Determir 1,000 Units/10 Ml Soln, 65 UNITS SQ DAILY, (Reported) TAKE IN AM Insulin Determir 1,000 Units/10 Ml Soln, 70 UNITS SQ HS, (Reported) TAKE AT BEDTIME Liraglutide 0.6 Mg/0.1 Ml Pen.injctr, 1.8 MG SQ HS, (Reported) Methocarbamol 750 Mg Tablet, 750 MG PO Q4H PRN for PAIN-MODERATE TO SEVERE Prescribed by: ELVA ÁLVAREZ on 11/20/18 1655 Multivitamin 1 Each Tab.chew, 1 EACH PO HS, (Reported) Ondansetron HCl 4 Mg Tab, 4 MG PO Q4H PRN for NAUSEA/VOMITING-1ST LINE Prescribed by: GEOVANI LUTZ on 10/19/18 1357 Pantoprazole Sodium 40 Mg Tablet.dr, 40 MG PO DAILY Prescribed by: LINDA MANSFIELD on 01/26/17 1053 Promethazine HCl 25 Mg Tablet, 25 MG PO Q6H PRN for NAUSEA/VOMITING Prescribed by: ELVA ÁLVAREZ on 11/01/18 194 Sucralfate 1 Gm Tablet, 1 GM PO ACHS Prescribed by: LINDA MANSFIELD on 01/26/17 1053 [Vit B-12 Gummies] , 2 TAB PO HS, (Reported) [Vitamin C] , 1 TAB PO HS, (Reported) Patient Home Medication List Home Medication List Reviewed: Yes Review of Systems Review of Systems Constitutional: No chills, No fever EENTM: No Blurred Vision, No Double Vision Respiratory: Denies Cough, Denies Shortness of Air Cardiovascular: Denies Chest Pain, Denies Edema Gastrointestinal: Denies Abdomen Distended; Abdominal Pain (right upper quadrant) Genitourinary: Denies Burning, Denies Discharge Musculoskeletal: see HPI, back pain; No joint pain Past Quahmif-Fusbpg-Wdnqom Hx Patient Social History Alcohol Use: Denies Use Recreational Drug Use: No Smoking Status: Former Smoker Type Used: Cigarettes Former Smoker, Quit: Aug 12, 1992 2nd Hand Smoke Exposure: No Recent Foreign Travel: No Contact w/Someone Who Travel: No Recent Hopitalizations: No Immunizations Up To Date Tetanus Booster (TDap): Less than 5yrs Date of Pneumonia Vaccine: Nov 21, 2016 Date of Influenza Vaccine: Aug 30, 2016 Seasonal Allergies Seasonal Allergies: No Past Medical History Surgeries: Yes (back x2, ) Abdominal, Appendectomy, Ear Surgery, Gallbladder, Hysterectomy, Orthopedic Respiratory: No Currently Using CPAP: No Currently Using BIPAP: No Cardiac: Yes High Cholesterol, Syncope Neurological: Yes Neuropathy 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 Disorders: Yes Female 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 Disorders: 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, Ovarian Cyst [employer]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 0oz. 95.590969rk; 29.3 BMI Method:Stated General Appearance: WD/WN, no apparent distress HEENT: PERRL/EOMI, normal ENT inspection, pharynx normal, TM abnormal (L) (bilateral TMs with mucoid effusion but no injection, erythema or loss of the membrane landmarks.) Neck: non-tender, full range of motion, supple, normal inspection Respiratory: chest non-tender, lungs clear, normal breath sounds, no respiratory distress, no accessory muscle use Cardiovascular: normal peripheral pulses, regular rate, rhythm Peripheral Pulses: 2+ Radial Pulses (R), 2+ Radial Pulses (L) Gastrointestinal: normal bowel sounds, soft, tenderness (right upper quadrant negative for Coronado sign), other (negative for mesenteric signs or pain over the epigastric region) Extremities: normal inspection, no pedal edema, normal capillary refill Back: normal inspection, CVA tenderness (R), other (painful to light touch or brushing on the dermatomal pattern at approximately T10 wrapping around to her right upper quadrant abdomen.) Neurologic/Psychiatric: no motor/sensory deficits, alert, normal mood/affect, oriented x 3 Skin: normal color, warm/dry Progress/Results/Core Measures Results/Orders Lab Results Laboratory Tests Test 05/21/19 00:20 05/21/19 00:30 Range/Units Urine Color YELLOW Urine Clarity CLEAR Urine pH 5 5-9 Urine Specific [place] 1.020 1.016-1.022 Urine Protein NEGATIVE NEGATIVE Urine Glucose (UA) 4+ H NEGATIVE Urine Ketones NEGATIVE NEGATIVE Urine Nitrite NEGATIVE NEGATIVE Urine Bilirubin NEGATIVE NEGATIVE Urine Urobilinogen NORMAL NORMAL MG/DL Urine Leukocyte Esterase 1+ H NEGATIVE Urine RBC (Auto) NEGATIVE NEGATIVE Urine RBC NONE /HPF Urine WBC 0-2 /HPF Urine Squamous Epithelial Cells 5-10 /HPF Urine Crystals NONE /LPF Urine Bacteria TRACE /HPF Urine Casts NONE /LPF Urine Mucus NEGATIVE /LPF Urine Culture Indicated NO White Blood Count 7.6 4.3-11.0 10^3/uL Red Blood Count 3.91 L 4.35-5.85 10^6/uL Hemoglobin 12.3 11.5-16.0 G/DL Hematocrit 37 35-52 % Mean Corpuscular Volume 95 80-99 FL Mean Corpuscular Hemoglobin 31 25-34 PG Mean Corpuscular Hemoglobin Concent 33 32-36 G/DL Red Cell Distribution Width 12.8 10.0-14.5 % Platelet Count 194 130-400 10^3/uL Mean Platelet Volume 10.1 7.4-10.4 FL Neutrophils (%) (Auto) 54 42-75 % Lymphocytes (%) (Auto) 31 12-44 % Monocytes (%) (Auto) 9 0-12 % Eosinophils (%) (Auto) 6 0-10 % Basophils (%) (Auto) 1 0-10 % Neutrophils # (Auto) 4.1 1.8-7.8 X 10^3 Lymphocytes # (Auto) 2.4 1.0-4.0 X 10^3 Monocytes # (Auto) 0.7 0.0-1.0 X 10^3 Eosinophils # (Auto) 0.5 H 0.0-0.3 10^3/uL Basophils # (Auto) 0.0 0.0-0.1 10^3/uL Sodium Level 137 135-145 MMOL/L Potassium Level 3.5 L 3.6-5.0 MMOL/L Chloride Level 103 98-107 MMOL/L Carbon Dioxide Level 20 L 21-32 MMOL/L Anion Gap 14 5-14 MMOL/L Blood Urea Nitrogen 12 7-18 MG/DL Creatinine 1.37 H 0.60-1.30 MG/DL Estimat Glomerular Filtration Rate 40 BUN/Creatinine Ratio 9 Glucose Level 279 H 70-105 MG/DL Calcium Level 9.7 8.5-10.1 MG/DL Corrected Calcium 9.8 8.5-10.1 MG/DL Total Bilirubin 0.6 0.1-1.0 MG/DL Aspartate Amino Transf (AST/SGOT) 29 5-34 U/L Alanine Aminotransferase (ALT/SGPT) 32 0-55 U/L Alkaline Phosphatase 127 40-136 U/L C-Reactive Protein High Sensitivity 0.18 0.00-0.50 MG/DL Total Protein 8.2 6.4-8.2 GM/DL Albumin 3.9 3.2-4.5 GM/DL Lipase 46 8-78 U/L My Orders Orders - JANET FERRER Ua Culture If Indicated (05/21/19 00:02) Cbc With Automated Diff (05/21/19 00:43) Comprehensive Metabolic Panel (05/21/19 00:43) Lipase (05/21/19 00:43) Hs C Reactive Protein (05/21/19 00:43) Ketorolac Injection (Toradol Injection) (05/21/19 01:15) Rx-Hydrocodone/Apap 5-325 Mg (Rx-Vicodin (05/21/19 01:13) Hydrocodone/Apap 5/325 Tablet (Lortab 5 (05/21/19 01:30) Lidocaine 2% Viscous 15 Ml (Xylocaine Vi (05/21/19 01:30) Progress Progress Note : Time: 01:14 Progress Note Patient's symptoms seem consistent with varicella Zoster. We'll check some labs including a lipase urinalysis. Labs are unremarkable. We will set her up to continue her Neurontin and start lidocaine, hydrocodone and antivirals. Departure Impression Primary Impression: Shingles Qualified Codes: B02.9 - Zoster without complications Additional Impression: Constipation Qualified Codes: K59.00 - Constipation, unspecified Disposition: HOME, SELF-CARE Condition: Stable Departure-Patient Inst. Decision time for Depature: 01:23 Referrals: [facility] (PCP) Primary Care Physician CHUY CERDA APRN (Family) Primary Care Physician Patient Instructions: Shingles (DC) Add. Discharge Instructions: Start taking the acyclovir 5 times a day with food. Apply 5 cc of viscous lidocaine to the skin to help numb up the pain as necessary. Use Tylenol 650 mg every 8 hours as needed for pain. Ibuprofen 400 mg every 8 hours as needed for pain. Topical creams with Capsaicin Oil are very effective when applied over the burning. Neurontin for pain as prescribed. Hydrocodone one tablet every 6 hours as needed for breakthrough pain. Take some MiraLAX for constipation 2-3 times a day until you're cleaned out. If you develop fever or cannot tolerate your medications or pain then please return to the ER. All discharge instructions reviewed with patient and/or family. Voiced understanding. Scripts Hydrocodone Bit/Acetaminophen (Hydrocodone/Acetaminophen 5/325mg Tablet) 1 Tab Tab 1 EACH PO Q4-6HR PRN for PAIN-MODERATE MDD 10 for 3 Days, #8 TAB 0 Refills Prov: JANET FERRER 05/21/19 Acyclovir (Acyclovir) 800 Mg Tablet 800 MG PO 5XD for 7 Days, #35 TAB 0 Refills Prov: JANET FERRER 05/21/19 JANET FERRER May 21, 2019 01:09
[2019-05-21] MEDS ORDERED: RX-HYDROCODONE/APAP 5/325 MG #4 TAB PK PO ONE (01:13)
[2019-05-21] MEDS ORDERED: KETOROLAC 30 MG/ML VIAL IVP ONE (01:15)
[2019-05-21] MEDS ORDERED: ACHD5005 PO (01:26)
[2019-05-21] MEDS ORDERED: ACYC800T PO (01:26)
[2019-05-21] MEDS ORDERED: HYDROcodone/APAP 5 MG/325 MG (LORTAB) TAB PO ONE (01:30)
[2019-05-21] MEDS ORDERED: LIDOCAINE 2% VISCOUS 15 ML UDC PO ONE (01:30)
[2019-05-21 01:43] VITALS: BP 149/86
== END 2019-05-21 01:51 | disposition home or self-care (01) ==
LOC: EDUNIT# 23:58 → ER 05-21
DX: B02.9 Zoster without complications (principal); K59.00 Constipation, unspecified; E78.00 Pure hypercholesterolemia, unspecified; E11.40 Type 2 diabetes mellitus with diabetic neuropathy, unspecified; K21.9 Gastro-esophageal reflux disease without esophagitis; F31.9 Bipolar disorder, unspecified; F41.9 Anxiety disorder, unspecified; Z88.5 Allergy status to narcotic agent; Z79.82 Long term (current) use of aspirin; Z79.51 Long term (current) use of inhaled steroids; Z79.4 Long term (current) 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; Z87.891 Personal history of nicotine dependence; Z90.49 Acquired absence of other specified parts of digestive tract; Z90.710 Acquired absence of both cervix and uterus
CPT/HCPCS: 36415; 80053; 81000; 83690; 85025; 86141

== ENCOUNTER → 2019-06-27 | Outpatient (CLI) | payer MEDICAID ==
[~2019-06-27] MED LIST changes: +ACYC800T PO; +DULO60CA59 PO
[2019-06-27 16:14] LABS: ALBUMIN 4.1 GM/DL (3.2-4.5); BILIRUBIN,TOTAL 0.6 MG/DL (0.1-1.0); CALCIUM 9.9 MG/DL (8.5-10.1); CREATININE SERUM 1.34 MG/DL (0.60-1.30); TOTAL PROTEIN 8.8 GM/DL (6.4-8.2)
== END ==
LOC: LAB 15:08
PROVIDERS: ATTEND Internal Medicine Cardiovascular Disease
DX: I25.10 Atherosclerotic heart disease of native coronary artery without angina pectoris (principal); I34.0 Nonrheumatic mitral (valve) insufficiency; E78.2 Mixed hyperlipidemia; I10 Essential (primary) hypertension
CPT/HCPCS: 36415; 80053; 80061

== ENCOUNTER → 2019-07-03 | Outpatient (CLI) | payer MEDICAID | LOC: CARD 12:05 | PROVIDERS: ATTEND Internal Medicine Cardiovascular Disease | DX: I34.0 Nonrheumatic mitral (valve) insufficiency (principal); I25.10 Atherosclerotic heart disease of native coronary artery without angina pectoris; I10 Essential (primary) hypertension; E78.2 Mixed hyperlipidemia | CPT/HCPCS: 93306 ==

== ENCOUNTER → 2019-07-11 | Outpatient (CLI) | payer MEDICAID ==
[~2019-07-11] MED LIST changes: +ASPI-999 PO; +CHOL500049 PO; +CYAN250010 PO; +EMPA10TA PO; +INSU100I23 SQ; +INSU100V6 SQ; +METF-397 PO; +MULT-178 PO
--- NOTE | 2019-07-11 13:20 | Diagnostic Imaging Report ---
Indication: Routine screening. Comparison is made with prior mammogram from 02/10/2017 and 01/31/2015. 2-D and 3-D bilateral screening mammography was performed with CAD. Scattered fibroglandular densities are identified bilaterally. Vascular calcifications are noted bilaterally. No mass or malignant- appearing microcalcifications are seen. The axillae are unremarkable. Impression: BI-RADS category 1. No mammographic features suspicious for malignancy are identified. ACR BI-RADS Category 1: Negative. Result letter will be mailed to the patient. Note: At least 10% of breast cancer is not imaged by mammography. Dictated by: Dictated on workstation # [id number]
--- NOTE | 2019-07-11 14:16 | Diagnostic Imaging Report ---
INDICATION: Vitamin D deficiency, postmenopausal state. COMPARISON: None available. FINDINGS: AP Spine L1-L4: [BMD (g/cm2): 0.899] [T-Score: -2.5] [Z-Score: -2.6] [BMD Previous: na] [BMD % Change: na] LT Hip Neck: [BMD (g/cm2): 0.904] [T-Score: -1.0] [Z-Score: -0.5] LT Hip Total: [BMD (g/cm2):0.982] [T-Score:-0.2] [Z-Score: -0.2] [BMD Previous: na] [BMD % Change: na] RT Hip Neck: [BMD (g/cm2):0.905] [T-Score:-1.0] [Z-Score:-0.5] RT Hip Total: [BMD (g/cm2):0.939] [T-score:-0.5] [Z-Score:-0.5] [BMD Previous:na] [BMD % Change:na] *Indicates significant change from prior examination based on 95% confidence level. World Health Organization criteria for BMD interpretation classify patients as Normal (T-score at or above -1.0), Osteopenic (T-score between -1.0 and -2.5) or Osteoporotic (T-score at or below -2.5). LIMITATIONS AND MODIFICATION: None. IMPRESSION: 1. Osteoporosis. 2. Baseline examination. 3. See below National Osteoporosis Foundation guidelines on when to potentially initiate pharmacologic therapy. Based on the National Osteoporosis Foundation Guidelines, pharmacologic treatment should be initiated in any of the following, unless clinical conditions suggest otherwise: * Any patient with prior fragility fracture of the hip or vertebrae. A spine fracture indicates 5X risk for subsequent spine fracture and 2X risk for subsequent hip fracture. * Osteoporosis (T-score <-2.5). * Postmenopausal women and men age 50 and older with low bone mass/osteopenia (T-score between -1.0 and -2.5) by DXA and 10-year major osteoporotic fracture greater than 20% or a 10-year probability of hip fracture greater than 3%. These fracture risks are supplied above in the FRAX score, if applicable. * Clinician judgement and/or patient preferences may indicate treatment for people with 10-year fracture probabilities above or below these levels. Dictated by: Dictated on workstation # [id number]
== END ==
LOC: RAD 10:47
PROVIDERS: ATTEND Nurse Practitioner Family
DX: Z12.31 Encounter for screening mammogram for malignant neoplasm of breast (principal); M81.0 Age-related osteoporosis without current pathological fracture; E55.9 Vitamin D deficiency, unspecified; M51.36 Other intervertebral disc degeneration, lumbar region; Z78.0 Asymptomatic menopausal state
CPT/HCPCS: 77067; 77080

== ENCOUNTER 2019-07-13 11:45 | Outpatient (CLI) | payer MEDICAID ==
[~2019-07-13] VITALS: Ht 170.2 cm; Wt 90.7 kg
[~2019-07-13 11:45] MED LIST changes: -ASPI-999 PO; -CHOL500049 PO; -CYAN250010 PO; -EMPA10TA PO; -INSU100I23 SQ; -INSU100V6 SQ; -METF-397 PO; -MULT-178 PO
[2019-07-13] MEDS ORDERED: INSU100I23 SQ (13:31)
[2019-07-13] MEDS ORDERED: INSU100V6 SQ (13:31)
[2019-07-13] MEDS ORDERED: METF-397 PO (13:31)
[2019-07-13] MEDS ORDERED: MULT-178 PO (13:31)
[2019-07-13] MEDS ORDERED: CYAN250010 PO (13:31)
[2019-07-13] MEDS ORDERED: CHOL500049 PO (13:31)
[2019-07-13] MEDS ORDERED: EMPA10TA PO (13:31)
[2019-07-13] MEDS ORDERED: DULO60CA6 PO (13:31)
[2019-07-13] MEDS ORDERED: ASPI-999 PO (13:31)
== END 2019-07-13 13:34 | disposition home or self-care (01) ==
LOC: PREOP 11:45
PROVIDERS: ATTEND Surgery
DX: Z01.818 Encounter for other preprocedural examination (principal)

== ENCOUNTER 2019-07-18 11:40 | Day surgery (SDC) | payer MEDICAID ==
[~2019-07-18] VITALS: Ht 170.2 cm; Wt 90.7 kg
[2019-07-18] VITALS (7 sets, daily range): BP systolic 108–145; BP diastolic 68–82
[~2019-07-18 11:40] MED LIST changes: +ASPI-999 PO; +CHOL500049 PO; +CYAN250010 PO; +EMPA10TA PO; +INSU100I23 SQ; +INSU100V6 SQ; +METF-397 PO; +MULT-178 PO
[2019-07-18] MEDS ORDERED: LACTATED RINGERS 1,000 ML IV ONE (11:48)
[2019-07-18] MEDS ORDERED: LACTATED RINGERS 1,000 ML IV STA (12:01)
[2019-07-18] MEDS ORDERED: PROPOFOL INJECTION 50 ML IV ONE (12:49)
[2019-07-18] MEDS ORDERED: MIDAZOLAM 2 MG/2 ML (VERSED) VIAL ONE (12:50)
--- NOTE | 2019-07-18 13:13 | Progress Note-Pre Operative ---
Pre-Operative Progress Note H&P Reviewed The H&P was reviewed, patient examined and no changes noted. Date Seen by Provider: Jul 18, 2019 Time Seen by Provider: 13:11 Date H&P Reviewed: Jul 18, 2019 Time H&P Reviewed: 13:12 Pre-Operative Diagnosis: change in bowel habits, family history colon cancer LINDA MANSFIELD DO Jul 18, 2019 13:13
--- NOTE | 2019-07-18 13:42 | Anesthesia-General Post-Op ---
MAC Patient Condition Mental Status/LOC: Same as Preop Cardiovascular: Satisfactory Nausea/Vomiting: Absent Respiratory: Satisfactory Pain: Controlled Complications: Absent Post Op Complications Complications None Follow Up Care/Instructions Patient Instructions None needed. Anesthesiology Discharge Order Discharge Order Patient is doing well, no complaints, stable vital signs, no apparent adverse anesthesia problems. No complications reported per nursing. CHIQUITA GORMAN CRNA Jul 18, 2019 13:42
--- NOTE | 2019-07-18 13:46 | Progress Note-Post Operative ---
Post-Operative Progess Note Surgeon (s)/Infirmary Attendant (s) Surgeon LINDA MANSFIELD DO Infirmary Attendant: na Pre-Operative Diagnosis change in bowel habits, family history colon cancer Post-Operative Diagnosis lipoma hepatic flexure Procedure & Operative Findings Date of Procedure 07/18/19 Procedure Performed/Findings colonoscopy c cold biopsy hepatic flexure Anesthesia Type per mda Estimated Blood Loss Estimated blood loss (mL): none Specimens/Packing Specimens Removed hepatic flexure LINDA MANSFIELD DO Jul 18, 2019 13:46
--- NOTE | 2019-07-18 13:48 | Discharge Inst-Simple/Standard ---
Discharge Inst-Standard Patient Instructions/Follow Up Plan of Care/Instructions/FU: 2 weeks Brigette Activity as Tolerated: Yes Discharge Diet: Regular Diet (high fiber) LINDA MANSFIELD DO Jul 18, 2019 13:48
--- NOTE | 2019-07-18 20:39 | OPERATIVE REPORT ---
DATE OF SERVICE: 07/18/2019 PREOPERATIVE DIAGNOSES: Change in bowel habits and family history of colon cancer. POSTOPERATIVE DIAGNOSIS: Submucosal lipoma, hepatic flexure. PROCEDURE PERFORMED: Colonoscopy with cold biopsy, hepatic flexure. SURGEON: Linda Machuca DO ANESTHESIA: Per MDA. ESTIMATED BLOOD LOSS: None. COMPLICATIONS: None. INDICATIONS: The patient is a 59-year-old female with change in bowel habits. She understands risks and benefits of procedure and wished to proceed with procedure. Consent was signed in the chart. DESCRIPTION OF PROCEDURE: The patient was taken to the endoscopy suite, placed in left lateral recumbent position. Timeout was performed. Digital rectal exam was performed. No palpable polyps, masses or ulcerations. Scope was inserted in the rectum, advanced all the way to the cecum with minimal difficulty. Prep was adequate. Scope was then slowly retracted back. There were no polyps, masses or ulcerations in the cecum, ascending colon. In the hepatic flexure, appearance of a submucosal colonic lipoma present. Biopsy of this area was obtained to rule out any other causes. Scope was then slowly retracted back. There were no polyps, mass or ulcerations within the remainder of the transverse, descending and sigmoid colon. Once in the rectum, scope was retroflexed noting no other pathology. Scope was returned to its normal position, slowly withdrawn until completely removed. The patient tolerated procedure well without any complications. She was taken to recovery room in stable condition. RECOMMENDATIONS: The patient will follow up in 2 weeks to discuss pathology results. The patient will need repeat colonoscopy in 5 years due to family history of colon cancer. If biopsy demonstrates anything other than normal mucosa, then we will consider repeat endoscopy to further evaluate or discuss other options. Job ID: [id number] DocumentID: [id number] Dictated Date: 07/18/2019 13:50:29 Cutting Machine Fixer Date: 07/18/2019 20:38:57 Dictated By: LINDA MACHUCA DO
== END 2019-07-18 14:30 | disposition home or self-care (01) ==
LOC: ENDO 11:40
PROVIDERS: ATTEND Surgery
DX: D17.5 Benign lipomatous neoplasm of intra-abdominal organs (principal); I25.10 Atherosclerotic heart disease of native coronary artery without angina pectoris; I08.1 Rheumatic disorders of both mitral and tricuspid valves; I10 Essential (primary) hypertension; E11.40 Type 2 diabetes mellitus with diabetic neuropathy, unspecified; E78.2 Mixed hyperlipidemia; K21.9 Gastro-esophageal reflux disease without esophagitis; F32.9 Major depressive disorder, single episode, unspecified; K29.50 Unspecified chronic gastritis without bleeding; J45.909 Unspecified asthma, uncomplicated; F41.9 Anxiety disorder, unspecified; Z83.3 Family history of diabetes mellitus; Z82.49 Family history of ischemic heart disease and other diseases of the circulatory system; Z90.710 Acquired absence of both cervix and uterus; Z88.5 Allergy status to narcotic agent; Z79.82 Long term (current) use of aspirin; Z79.4 Long term (current) 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; Z90.49 Acquired absence of other specified parts of digestive tract; Z79.899 Other long term (current) drug therapy; Z80.0 Family history of malignant neoplasm of digestive organs
CPT/HCPCS: 82962

== ENCOUNTER → 2019-07-20 | Outpatient (CLI) | payer MEDICAID ==
[2019-07-20 12:36] LABS: BASOPHILS # (AUTO) 0.1 10^3/uL (0.0-0.1); BASOPHILS % (AUTO) 1 % (0-10); EOSINOPHILS # (AUTO) 0.4 10^3/uL (0.0-0.3); EOSINOPHILS % (AUTO) 6 % (0-10); HEMATOCRIT 41 % (35-52); HEMOGLOBIN 13.8 G/DL (11.5-16.0); LYMPHOCYTES # (AUTO) 2.2 X 10^3 (1.0-4.0); LYMPHOCYTES % (AUTO) 30 % (12-44); MEAN CORPUSCULAR HEMOGLOBIN 32 PG (25-34); MEAN CORPUSCULAR HGB CONC 33 G/DL (32-36); MEAN CORPUSCULAR VOLUME 96 FL (80-99); MEAN PLATELET VOLUME 9.9 FL (7.4-10.4); MONOCYTES # (AUTO) 0.5 X 10^3 (0.0-1.0); MONOCYTES % (AUTO) 7 % (0-12); NEUTROPHILS # (AUTO) 4.3 X 10^3 (1.8-7.8); NEUTROPHILS % (AUTO) 57 % (42-75); PLATELET COUNT 251 10^3/uL (130-400); RED CELL DISTRIBUTION WIDTH 13.1 % (10.0-14.5); WHITE BLOOD COUNT 7.5 10^3/uL (4.3-11.0)
[2019-07-20 12:48] LABS: BILIRUBIN,URINE NEGATIVE (NEGATIVE); CLARITY,URINE CLEAR; COLOR,URINE YELLOW; GLUCOSE, URINE (UA) 4+ (NEGATIVE); KETONES,URINE NEGATIVE (NEGATIVE); LEUKOCYTE ESTERASE ,URINE NEGATIVE (NEGATIVE); NITRITE,URINE NEGATIVE (NEGATIVE); PH,URINE 6 (5-9); PROTEIN,URINE NEGATIVE (NEGATIVE); UROBILINOGEN,URINE NORMAL (NORMAL)
[2019-07-20 12:57] LABS: BACTERIA,URINE TRACE /HPF
[2019-07-20 12:57] LABS: CALCIUM 9.4 MG/DL (8.5-10.1); CREATININE SERUM 1.01 MG/DL (0.60-1.30); POTASSIUM 4.3 MMOL/L (3.6-5.0); URIC ACID 8.8 MG/DL (2.6-7.2)
== END ==
LOC: LAB 12:11
PROVIDERS: ATTEND Internal Medicine Nephrology
DX: I12.9 Hypertensive chronic kidney disease with stage 1 through stage 4 chronic kidney disease, or unspecified chronic kidney disease (principal); N18.3 Chronic kidney disease, stage 3 (moderate); E55.9 Vitamin D deficiency, unspecified; E87.2 Acidosis
CPT/HCPCS: 36415; 80069; 81000; 82306; 82570; 83970; 84156; 84550; 85025

== ENCOUNTER 2019-10-04 20:06 | Emergency (ER) | payer MEDICAID ==
[~2019-10-04] VITALS: Ht 157.5 cm; Wt 96.4 kg
--- NOTE | 2019-10-04 20:28 | ED Fall/Injury ---
General Chief Complaint: Trauma-Non Activation Stated Complaint: FALL Nursing Triage Note: Lt neck, Lt Lt shoulder, Lt hip, Lt knee. Pt states, "everything on my Lt side hurts." Denied hitting head or LOC. Superficial abrasion noted to Lt knee. Source: patient Exam Limitations: no limitations History of Present Illness Date Seen by Provider: Oct 04, 2019 Time Seen by Provider: 20:26 Initial Comments To ER with reports of a fall, she tripped at home while walking and fell landing on her left side did not hit her head, complains of left-sided neck pain left s houlder pain and left elbow pain and left hip pain left knee pain Location Injury Occurred: Home Occurred: just prior to arrival Severity: moderate Injuries/Pain Location: upper extremity, back, pelvis, lower extremity Context: unknown Loss of Consciousness: no loss of consciousness Associated Symptoms (Fall): Denies Symptoms Allergies and Home Medications Allergies Coded Allergies: codeine (Verified Allergy, Unknown, HEART PALPATATION, 02/04/15) Home Medications Aspirin 81 Mg Tab.chew, 81 MG PO Q48H, (Reported) Atorvastatin Calcium 40 Mg Tablet, 40 MG PO HS, (Reported) Cetirizine HCl 10 Mg Tablet, 10 MG PO HS, (Reported) Cholecalciferol (Vitamin D3) 50,000 Unit Capsule, 50,000 UNIT PO WEEK, (Reported) Cyanocobalamin (Vitamin B-12) 2,500 Mcg Tablet, 2,500 MCG PO DAILY, (Reported) Duloxetine HCl 60 Mg Capsule.dr, 60 MG PO DAILY, (Reported) Empagliflozin 10 Mg Tablet, 10 MG PO DAILY, (Reported) Insulin Glargine,Hum.rec.anlog 100 Unit/1 Ml Vial, 100 UNIT SQ DAILY, (Reported) Insulin Lispro 100 Unit/1 Ml Insuln.pen, 0 SQ TIDWM, (Reported) Metformin HCl 500 Mg Tablet, 500 MG PO BID, (Reported) Multivitamin 1 Each Tablet, 1 EACH PO DAILY, (Reported) Patient Home Medication List Home Medication List Reviewed: Yes Review of Systems Review of Systems Constitutional: see HPI Eyes: No Symptoms Reported Ears, Nose, Mouth, Throat: no symptoms reported Respiratory: no symptoms reported Cardiovascular: no symptoms reported Genitourinary: no symptoms reported Musculoskeletal: see HPI Skin: no symptoms reported Psychiatric/Neurological: No Symptoms Reported Past Xoaeeac-Igokae-Futnis Hx Patient Social History Alcohol Use: Denies Use Recreational Drug Use: No Smoking Status: Former Smoker Type Used: Cigarettes Former Smoker, Quit: Aug 12, 1992 2nd Hand Smoke Exposure: No Recent Foreign Travel: No Contact w/Someone Who Travel: No Recent Infectious Disease Expo: No Recent Hopitalizations: No Immunizations Up To Date Tetanus Booster (TDap): Less than 5yrs Date of Pneumonia Vaccine: Nov 21, 2016 Date of Influenza Vaccine: Aug 14, 2019 Seasonal Allergies Seasonal Allergies: Yes Past Medical History Surgeries: Yes (back x2, BMT) Abdominal, Appendectomy, Gallbladder, Hysterectomy, Orthopedic Respiratory: No Currently Using CPAP: No Currently Using BIPAP: No Cardiac: Yes Heart Murmur, High Cholesterol, Syncope Neurological: Yes Neuropathy 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 Disorders: Yes Female 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 Disorders: 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, 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 Sexually Transmitted Disease: No HIV/AIDS: No Genitourinary: Yes (STAGE 3) Renal Failure Gastrointestinal: Yes Gastroesophageal Reflux, Chronic Constipation, Chronic Diarrhea Musculoskeletal: Yes Arthritis, Chronic Back Pain Endocrine: Yes Diabetes, Insulin dep HEENT: Yes (GLASSES) Cataract Loss of Vision: Denies Hearing Impairment: Denies Cancer: No Psychosocial: Yes Anxiety, Bipolar, Depression Integumentary: Yes (SORES ON ARMS) Blood Disorders: No Adverse Reaction/Blood Tranf: No (N/A) Family Medical History Colon cancer FH: diabetes mellitus FH: heart disease No Pertinent Family Hx, Heart Disease Physical Exam Vital Signs Vital Signs - First Documented 10/04/19 20:11 Temp 36.8 Pulse 74 Resp 18 B/P (MAP) 119/67 (84) Pulse Ox 100 O2 Delivery Room Air Capillary Refill : Less Than 3 Seconds Height, Weight, BMI Height: 5'7.00" Weight: 200lbs. 0.0oz. 90.571740lb; 38.00 BMI Method:Stated General Appearance: WD/WN, no apparent distress HEENT: PERRL/EOMI, normal ENT inspection Neck: non-tender, full range of motion Cardiovascular: regular rate, rhythm, no murmur Respiratory: no respiratory distress, no accessory muscle use Gastrointestinal: normal bowel sounds, non tender, soft Extremities: normal range of motion, normal capillary refill, other (normal appearance of all of the affected joints with complaints of pain on range of motion but no ecchymosis or erythema swelling or other objective finding.) Neurologic/Psychiatric: alert, normal mood/affect, oriented x 3 Skin: normal color, warm/dry [place] Coma Score Best Eye Response: (4) Open Spontaneously Best Verbal Response: (5) Oriented Best Motor Response: (6) Obeys Commands [place] Total: 15 Progress/Results/Core Measures Results/Orders My Orders Orders - ELVA ÁLVAREZ APRN Ct Head/Cervical Spine Wo (10/04/19 20:20) Shoulder, Left, 3 Views (10/04/19 20:20) Elbow, Left, 3 Views (10/04/19 20:20) Knee, Left, 3 Views (10/04/19 20:20) Pelvis (10/04/19 20:20) Ct Extremity Upper Left Wo (10/04/19 21:39) Ct Abdomen Wo (10/04/19 21:42) Hydrocodone/Apap 5/325 Tablet (Lortab 5 (10/04/19 21:45) Medications Given in ED Vital Signs/I&O 10/04/19 10/04/19 20:11 22:39 Temp 36.8 36.8 Pulse 74 69 Resp 18 17 B/P (MAP) 119/67 (84) 119/67 (84) Pulse Ox 100 99 O2 Delivery Room Air Room Air Blood Pressure Mean: 84 POS Diagnostic Imaging Diagonstic Imaging: Xray Comments NAME: AUSTYN [facility] REC#: [id number] PT STATUS: REG ER : 1960 PHYSICIAN: ELVA ÁLVAREZ APRN ADMIT DATE: 10/04/19/ER Draft POSDate of Exam:10/04/19 SHOULDER, LEFT, 3 VIEWS EXAMINATION: Left shoulder radiographs, 3 views. COMPARISON: None. HISTORY: 59-year-old female, fall. FINDINGS: The acromioclavicular joint is normally aligned. There are no prominent acromioclavicular degenerative changes. The humeral head is normally positioned relative to the glenoid. There is a displaced scapular fracture which is best demonstrated on the scapular Y view involving the base of the scapular spine as well as vertically oriented scapular fracture involvement on the frontal view. IMPRESSION: Displaced fracture of the scapula. Recommend CT left scapula without contrast for further assessment. Dictated on workstation # [id number] Dict: 10/04/192131 Trans: 10/04/192136 [facility] [id number] Interpreted by: MERT MARIN MD Electronically signed by: Departure Communication (Admissions) 2142 rigid cervical collar removed at this time. 2224-CT scan from virtual radiologic shows no acute findings in the abdomen Impression Primary Impression: Fall on same level Qualified Codes: W18.30XA - Fall on same level, unspecified, initial encounter Additional Impressions: Shoulder pain Qualified Codes: M25.512 - Pain in left shoulder Elbow pain Qualified Codes: M25.522 - Pain in left elbow Knee pain Qualified Codes: M25.562 - Pain in left knee Disposition: 01 HOME, SELF-CARE Condition: Stable Departure-Patient Inst. Decision time for Depature: 22:26 Referrals: [facility] [place] (PCP) Primary Care Physician CHUY CERDA APRN (Family) Primary Care Physician Patient Instructions: Shoulder Pain (DC) Add. Discharge Instructions: 1. Return to ER for any concerns 2. Tylenol and ibuprofen for pain 3. Return to ER for any worsening. All discharge instructions reviewed with patient and/or family. Voiced understanding. ELVA ÁLVAREZ APRN Oct 04, 2019 20:28 POS
--- NOTE | 2019-10-04 21:20 | Diagnostic Imaging Report ---
PROCEDURE: CT head and CT cervical spine without contrast. TECHNIQUE: Multiple contiguous axial images were obtained through the brain and cervical spine without the use of intravenous contrast. Sagittal and coronal reformations through the cervical spine were then performed. Auto Exposure Controls were utilized during the CT exam to meet ALARA standards for radiation dose reduction. DATE: October 04, 2019. COMPARISON: CT head and cervical spine March 21, 2019. INDICATION: 59-year-old female, fall. Head and neck pain. FINDINGS: There is no identified skull fracture. The ventricles and cerebral spinal fluid spaces are of normal size and configuration for the patient's age. There is no mass effect or midline shift. There is no acute intracranial hemorrhage. There is no abnormal extra-axial fluid collection. The visualized portions of the paranasal sinuses, mastoid air cells and middle ears are well aerated. There is no identified facet joint subluxation or dislocation. There is no asymmetric widening of the cervical disc spaces. There is no prominent prevertebral soft tissue swelling. There are disc degenerative changes most notable at C5-C6 and C6-C7 with posterior disc osteophyte complexes. CT is limited for assessment of disc pathology as well as additional nonbony causes of pathology in the spinal canal. There is no identified acute fracture of the cervical spine. The visualized portions of the lungs are clear. There are bilateral carotid vascular calcifications. IMPRESSION: 1. No identified acute intracranial abnormality. 2. No identified acute abnormality of the cervical spine. Dictated by: Dictated on workstation # [id number]
--- NOTE | 2019-10-04 21:38 | Diagnostic Imaging Report ---
EXAMINATION: Left shoulder radiographs, 3 views. COMPARISON: None. HISTORY: 59-year-old female, fall. FINDINGS: The acromioclavicular joint is normally aligned. There are no prominent acromioclavicular degenerative changes. The humeral head is normally positioned relative to the glenoid. There is a displaced scapular fracture which is best demonstrated on the scapular Y view involving the base of the scapular spine as well as vertically oriented scapular fracture involvement on the frontal view. IMPRESSION: Displaced fracture of the scapula. Recommend CT left scapula without contrast for further assessment. Dictated by: Dictated on workstation # [id number]
--- NOTE | 2019-10-04 21:39 | Diagnostic Imaging Report ---
EXAMINATION: Left elbow radiographs, 3 views. COMPARISON: None. HISTORY: 59-year-old female, fall. Left elbow pain. FINDINGS: There is no elbow joint effusion. The elbow is not dislocated. There is no radiopaque foreign body. There is no identified acute fracture. IMPRESSION: No acute bony abnormality of the left elbow. Dictated by: Dictated on workstation # [id number]
--- NOTE | 2019-10-04 21:39 | Diagnostic Imaging Report ---
EXAMINATION: Left knee radiographs, 3 views. COMPARISON: None. HISTORY: 59-year-old female, fall. Left knee pain. FINDINGS: There is no knee joint effusion. There is severe patellofemoral compartment joint space loss. The medial and lateral compartments are not significantly narrowed. There is no identified acute fracture. IMPRESSION: No identified acute bony abnormality of the left knee. Dictated by: Dictated on workstation # [id number]
--- NOTE | 2019-10-04 21:41 | Diagnostic Imaging Report ---
EXAMINATION: Pelvis radiograph, single view. COMPARISON: March 21, 2019. HISTORY: Fell and landed on left side. Patient in C-collar. FINDINGS: The pubic symphysis and sacroiliac joints are normally aligned. The hips are not obviously dislocated. There is no identified acute fracture. There are degenerative changes of the lower lumbar spine. IMPRESSION: No identified acute bony abnormality of the pelvis. Dictated by: Dictated on workstation # [id number]
[2019-10-04] MEDS ORDERED: HYDROcodone/APAP 5 MG/325 MG (LORTAB) TAB PO ONE (21:45)
[2019-10-04 22:39] VITALS: BP 119/67
--- NOTE | 2019-10-05 06:45 | Diagnostic Imaging Report ---
EXAMINATION: CT Abdomen without intravenous contrast. TECHNIQUE: Multiple contiguous axial images were obtained through the abdomen without the administration of intravenous contrast. All CT scans use one or more of the following dose optimizing techniques: automated exposure control, MA and/or KvP adjustment based on a patient size and exam type, or iterative reconstruction. HISTORY: Fall COMPARISON: None available. FINDINGS: Limited views of the lower thorax are unremarkable. The liver is normal without focal lesion. There is no biliary ductal dilation. Gallbladder is normal. Pancreas is normal. There are calcified granulomas in the spleen. Adrenal glands are normal. The kidneys are normal. There is no hydronephrosis. Urinary bladder is normal. Visualized bowel is normal in caliber without obstruction or inflammation. No free fluid or air. No abdominal lymphadenopathy. Aorta is normal in caliber without aneurysm. There are no suspicious osseus lesions. IMPRESSION: 1. No acute abnormality in the abdomen or pelvis. Dictated by: Dictated on workstation # [id number]
--- NOTE | 2019-10-05 06:50 | Diagnostic Imaging Report ---
PROCEDURE: CT left upper extremity without contrast. TECHNIQUE: Multiple contiguous axial images were obtained through the left upper extremity without the use of intravenous contrast. Auto Exposure Controls were utilized during the CT exam to meet ALARA standards for radiation dose reduction. INDICATION: Fall, left shoulder pain COMPARISON: Radiographs from the same day FINDINGS: No acute fracture is seen in the left shoulder. Alignment appears normal. There are mild degenerative changes in the acromioclavicular joint. The soft tissues about the left shoulder are unremarkable on this noncontrast CT. No lymphadenopathy is seen. There is motion artifact in the left lung. IMPRESSION: 1. No acute fracture is seen in the left shoulder or scapula. Dictated by: Dictated on workstation # [id number]
== END 2019-10-04 22:40 | disposition home or self-care (01) ==
LOC: EDUNIT# 20:06 → ER 20:07
DX: M25.512 Pain in left shoulder (principal); M25.522 Pain in left elbow; M25.562 Pain in left knee; E11.40 Type 2 diabetes mellitus with diabetic neuropathy, unspecified; E11.22 Type 2 diabetes mellitus with diabetic chronic kidney disease; F41.9 Anxiety disorder, unspecified; F31.9 Bipolar disorder, unspecified; E78.00 Pure hypercholesterolemia, unspecified; N18.3 Chronic kidney disease, stage 3 (moderate); K21.9 Gastro-esophageal reflux disease without esophagitis; Z88.5 Allergy status to narcotic agent; Z90.710 Acquired absence of both cervix and uterus; Z79.82 Long term (current) use of aspirin; Z79.4 Long term (current) 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; Z87.891 Personal history of nicotine dependence; Z90.49 Acquired absence of other specified parts of digestive tract; Z82.49 Family history of ischemic heart disease and other diseases of the circulatory system; Z80.0 Family history of malignant neoplasm of digestive organs; W01.0XXA Fall on same level from slipping, tripping and stumbling without subsequent striking against object, initial encounter; Y92.009 Unspecified place in unspecified non-institutional (private) residence as the place of occurrence of the external cause
CPT/HCPCS: 70450; 72125; 72170; 73030; 73080; 73200; 73562; 74150

== ENCOUNTER 2019-12-23 18:35 | Emergency (ER) | payer MEDICAID ==
[~2019-12-23] VITALS: Ht 170.2 cm; Wt 97.9 kg
[2019-12-23] MEDS ORDERED: NS IV 1000 ML 1,000 ML IV SCH (18:42)
[2019-12-23 19:07] LABS: BILIRUBIN,URINE NEGATIVE (NEGATIVE); CLARITY,URINE CLEAR; COLOR,URINE YELLOW; GLUCOSE, URINE (UA) 3+ (NEGATIVE); KETONES,URINE NEGATIVE (NEGATIVE); LEUKOCYTE ESTERASE ,URINE NEGATIVE (NEGATIVE); NITRITE,URINE NEGATIVE (NEGATIVE); PROTEIN,URINE NEGATIVE (NEGATIVE)
[2019-12-23] MEDS ORDERED: inSUlin (REGULAR) HUMAN 1 UNIT/0.01 ML (CHARGE PER UNIT) IV STA (19:11)
[2019-12-23 19:14] LABS: BASOPHILS % (AUTO) 1 % (0-10); EOSINOPHILS # (AUTO) 0.2 10^3/uL (0.0-0.3); EOSINOPHILS % (AUTO) 3 % (0-10); HEMATOCRIT 38 % (35-52); HEMOGLOBIN 12.7 G/DL (11.5-16.0); LYMPHOCYTES % (AUTO) 25 % (12-44); MEAN CORPUSCULAR HEMOGLOBIN 32 PG (25-34); MEAN CORPUSCULAR HGB CONC 34 G/DL (32-36); MEAN CORPUSCULAR VOLUME 94 FL (80-99); MEAN PLATELET VOLUME 10.9 FL (7.4-10.4); MONOCYTES # (AUTO) 0.6 X 10^3 (0.0-1.0); MONOCYTES % (AUTO) 8 % (0-12); NEUTROPHILS # (AUTO) 5.1 X 10^3 (1.8-7.8); NEUTROPHILS % (AUTO) 64 % (42-75); PLATELET COUNT 196 10^3/uL (130-400); RED CELL DISTRIBUTION WIDTH 12.8 % (10.0-14.5)
[2019-12-23 19:15] LABS: BACTERIA,URINE TRACE /HPF
[2019-12-23] MEDS ORDERED: inSUlin (REGULAR) HUMAN 1 UNIT/0.01 ML (CHARGE PER UNIT) ONE (19:15)
[2019-12-23 19:31] LABS: ALBUMIN 3.9 GM/DL (3.2-4.5); BILIRUBIN,TOTAL 0.5 MG/DL (0.1-1.0); CALCIUM 9.4 MG/DL (8.5-10.1); CREATININE SERUM 1.45 MG/DL (0.60-1.30); TOTAL PROTEIN 8.2 GM/DL (6.4-8.2)
[2019-12-23 19:37] LABS: POTASSIUM 4.1 MMOL/L (3.6-5.0)
--- NOTE | 2019-12-23 19:50 | ED General ---
General Chief Complaint: Glucose Problems Stated Complaint: HIGH BLOOD SUGAR Nursing Triage Note: pt amb to rm 6 with complaint of high blood sugar. states sugar at home was over 600. states she is also having right breast pain that wraps around to right back. no open sores noted. Nursing Sepsis Screen: No Definite Risk History of Present Illness Date Seen by Provider: Dec 23, 2019 Time Seen by Provider: 18:50 Initial Comments 59-year-old type I diabetic presents for elevated blood sugars. Today she had ice she, she reports being approximately half a cup sugar and her picture of ice d tea every day. In addition she went to [employer] and had a large [place], [place] fries and a cheeseburger. She normally adjusts her Humalog to what she is eating and takes Lantus 90 units in the evening. Timing/Duration: 1-3 Hours Associated Systoms: Denies Symptoms Allergies and Home Medications Allergies Coded Allergies: codeine (Verified Allergy, Unknown, HEART PALPATATION, 02/04/15) Home Medications Aspirin 81 Mg Tab.chew, 81 MG PO Q48H, (Reported) Atorvastatin Calcium 40 Mg Tablet, 40 MG PO HS, (Reported) Cetirizine HCl 10 Mg Tablet, 10 MG PO HS, (Reported) Cholecalciferol (Vitamin D3) 50,000 Unit Capsule, 50,000 UNIT PO WEEK, (Reported) Cyanocobalamin (Vitamin B-12) 2,500 Mcg Tablet, 2,500 MCG PO DAILY, (Reported) Duloxetine HCl 60 Mg Capsule.dr, 60 MG PO DAILY, (Reported) Empagliflozin 10 Mg Tablet, 10 MG PO DAILY, (Reported) Insulin Glargine,Hum.rec.anlog 100 Unit/1 Ml Vial, 100 UNIT SQ DAILY, (Reported) Insulin Lispro 100 Unit/1 Ml Insuln.pen, 0 SQ TIDWM, (Reported) Metformin HCl 500 Mg Tablet, 500 MG PO BID, (Reported) Multivitamin 1 Each Tablet, 1 EACH PO DAILY, (Reported) Patient Home Medication List Home Medication List Reviewed: Yes Review of Systems Review of Systems Constitutional: no symptoms reported, see HPI All Other Systems Reviewed Negative Unless Noted: Yes Past Rhipmhb-Oehxsr-Desydh Hx Past Med/Social Hx: Reviewed Nursing Past Med/Soc Hx Patient Social History Alcohol Use: Denies Use Recreational Drug Use: No Smoking Status: Former Smoker Type Used: Cigarettes Former Smoker, Quit: Aug 12, 1992 2nd Hand Smoke Exposure: No Recent Foreign Travel: No Contact w/Someone Who Travel: No Recent Infectious Disease Expo: No Recent Hopitalizations: No Immunizations Up To Date Tetanus Booster (TDap): Less than 5yrs Date of Pneumonia Vaccine: Nov 21, 2016 Date of Influenza Vaccine: Aug 14, 2019 Seasonal Allergies Seasonal Allergies: Yes Past Medical History Surgeries: Yes (back x2, BMT) Abdominal, Appendectomy, Gallbladder, Hysterectomy, Orthopedic Respiratory: No Currently Using CPAP: No Currently Using BIPAP: No Cardiac: Yes Heart Murmur, High Cholesterol, Syncope Neurological: Yes Neuropathy 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 Disorders: Yes Female 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 Disorders: 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, 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 Sexually Transmitted Disease: No HIV/AIDS: No Genitourinary: Yes (STAGE 3) Renal Failure Gastrointestinal: Yes Gastroesophageal Reflux, Chronic Constipation, Chronic Diarrhea Musculoskeletal: Yes Arthritis, Chronic Back Pain Endocrine: Yes Diabetes, Insulin dep HEENT: Yes (GLASSES) Cataract Loss of Vision: Denies Hearing Impairment: Denies Cancer: No Psychosocial: Yes Anxiety, Bipolar, Depression Integumentary: Yes (SORES ON ARMS) Blood Disorders: No Adverse Reaction/Blood Tranf: No (N/A) Family Medical History Colon cancer FH: diabetes mellitus FH: heart disease No Pertinent Family Hx, Heart Disease Physical Exam Vital Signs Vital Signs - First Documented 12/23/19 18:45 Temp 37.0 Pulse 78 Resp 20 B/P (MAP) 183/98 (126) Pulse Ox 98 O2 Delivery Room Air Capillary Refill : Less Than 3 Seconds Height, Weight, BMI Height: 5'7.00" Weight: 200lbs. 0.0oz. [id number]; 33.00 BMI Method:Stated General Appearance: No Apparent Distress, WD/WN Eyes: Bilateral Eye Normal Inspection, Bilateral Eye PERRL, Bilateral Eye EOMI HEENT: PERRL/EOMI, TMs Normal, Normal ENT Inspection, Pharynx Normal Neck: Full Range of Motion, Normal Inspection, Non Tender Respiratory: Chest Non Tender, Lungs Clear, Normal Breath Sounds Cardiovascular: Regular Rate, Rhythm, No Edema, No Murmur, Normal Peripheral Pulses Neurologic/Psychiatric: Alert, Oriented x3, No Motor/Sensory Deficits, Normal Mood/Affect Progress/Results/Core Measures Suspected Sepsis Recent Fever Within 48 Hours: No Infection Criteria Present: None New/Unexplained Altered Menta: No Sepsis Screen: No Definite Risk SIRS Temperature: Pulse: 78 Respiratory Rate: 20 Laboratory Tests 12/23/19 19:00: White Blood Count 8.0 Blood Pressure 183 /98 Mean: 126 Laboratory Tests 12/23/19 19:00: Creatinine 1.45H, Platelet Count 196, Total Bilirubin 0.5 Results/Orders Lab Results Laboratory Tests Test 12/23/19 18:47 12/23/19 18:52 12/23/19 19:00 12/23/19 19:56 Range/Units Glucometer 514 *H 369 H 70-110 MG/DL Urine Color YELLOW Urine Clarity CLEAR Urine pH 6.0 5-9 Urine Specific [place] 1.010 L 1.016-1.022 Urine Protein NEGATIVE NEGATIVE Urine Glucose (UA) 3+ H NEGATIVE Urine Ketones NEGATIVE NEGATIVE Urine Nitrite NEGATIVE NEGATIVE Urine Bilirubin NEGATIVE NEGATIVE Urine Urobilinogen 0.2 < = 1.0 MG/DL Urine Leukocyte Esterase NEGATIVE NEGATIVE Urine RBC (Auto) NEGATIVE NEGATIVE Urine RBC NONE /HPF Urine WBC 2-5 /HPF Urine Crystals NONE /LPF Urine Bacteria TRACE /HPF Urine Casts NONE /LPF Urine Mucus NEGATIVE /LPF Urine Culture Indicated NO White Blood Count 8.0 4.3-11.0 10^3/uL Red Blood Count 4.03 L 4.35-5.85 10^6/uL Hemoglobin 12.7 11.5-16.0 G/DL Hematocrit 38 35-52 % Mean Corpuscular Volume 94 80-99 FL Mean Corpuscular Hemoglobin 32 25-34 PG Mean Corpuscular Hemoglobin Concent 34 32-36 G/DL Red Cell Distribution Width 12.8 10.0-14.5 % Platelet Count 196 130-400 10^3/uL Mean Platelet Volume 10.9 H 7.4-10.4 FL Neutrophils (%) (Auto) 64 42-75 % Lymphocytes (%) (Auto) 25 12-44 % Monocytes (%) (Auto) 8 0-12 % Eosinophils (%) (Auto) 3 0-10 % Basophils (%) (Auto) 1 0-10 % Neutrophils # (Auto) 5.1 1.8-7.8 X 10^3 Lymphocytes # (Auto) 2.0 1.0-4.0 X 10^3 Monocytes # (Auto) 0.6 0.0-1.0 X 10^3 Eosinophils # (Auto) 0.2 0.0-0.3 10^3/uL Basophils # (Auto) 0.0 0.0-0.1 10^3/uL Sodium Level 132 L 135-145 MMOL/L Potassium Level 4.1 3.6-5.0 MMOL/L Chloride Level 97 L 98-107 MMOL/L Carbon Dioxide Level 23 21-32 MMOL/L Anion Gap 12 5-14 MMOL/L Blood Urea Nitrogen 11 7-18 MG/DL Creatinine 1.45 H 0.60-1.30 MG/DL Estimat Glomerular Filtration Rate 37 BUN/Creatinine Ratio 8 Glucose Level 542 *H 70-105 MG/DL Calcium Level 9.4 8.5-10.1 MG/DL Corrected Calcium 9.5 8.5-10.1 MG/DL Total Bilirubin 0.5 0.1-1.0 MG/DL Aspartate Amino Transf (AST/SGOT) 45 H 5-34 U/L Alanine Aminotransferase (ALT/SGPT) 42 0-55 U/L Alkaline Phosphatase 149 H 40-136 U/L Total Protein 8.2 6.4-8.2 GM/DL Albumin 3.9 3.2-4.5 GM/DL My Orders Orders - [facility] Accucheck Stat ONCE (12/23/19 18:42) Cbc With Automated Diff (12/23/19 18:42) Comprehensive Metabolic Panel (12/23/19 18:42) Ua Culture If Indicated (12/23/19 18:42) Ed Iv/Invasive Line Start (12/23/19 18:42) Ns Iv 1000 Ml (Sodium Chloride 0.9%) (12/23/19 18:42) Insulin (Regular) Human (Humulin R (Per (12/23/19 19:11) Accucheck Stat ONCE (12/23/19 19:43) Insulin (Regular) Human (Humulin R (Per (12/23/19 19:15) Vital Signs/I&O 12/23/19 12/23/19 18:45 20:06 Temp 37.0 36.9 Pulse 78 70 Resp 20 18 B/P (MAP) 183/98 (126) 157/77 (126) Pulse Ox 98 99 O2 Delivery Room Air Room Air Capillary Refill : Less Than 3 Seconds Blood Pressure Mean: 126 Point of Care Testing Finger Stick Blood Glucose: 569 Blood Glucose Action Taken: rn notified Progress Note : Time: 18:50 Progress Note Patient seen and evaluated, will obtain labs, normal saline 1 L per IV. Will give insulin pending glucose. 1909 Accu-Chek 514. Will give regular insulin 10 units per IV. 2004 repeat Accu-Chek after 1 L of fluid and 10 units of regular insulin was 369. Patient education about her diabetes and diet were discussed at length. Discharge instructions and return precautions reviewed with the patient and her . Departure Impression Primary Impression: Hyperglycemia Additional Impression: Noncompliance with diabetes treatment Disposition: HOME, SELF-CARE Condition: Stable Departure-Patient Inst. Decision time for Depature: 20:00 Referrals: [facility] (PCP/Family) Primary Care Physician Patient Instructions: Hyperglycemia, Adult (DC), Diabetes and Diet Add. Discharge Instructions: Avoid sugar in tea and no pop to drink, or increase your Humalog with these beverages. Monitor glucose every 2 hours. Increase water intake, 16 oz every 2 hours, while awake. 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 Return to ER for new, urgent health care needs. All discharge instructions reviewed with patient and/or family. Voiced understanding. WINNIE REYNOLDS Dec 23, 2019 19:50
[2019-12-23 20:06] VITALS: BP 157/77
== END 2019-12-23 20:08 | disposition home or self-care (01) ==
LOC: EDUNIT# 18:35 → ER 18:36
DX: E10.649 Type 1 diabetes mellitus with hypoglycemia without coma (principal); E78.00 Pure hypercholesterolemia, unspecified; K21.9 Gastro-esophageal reflux disease without esophagitis; E10.40 Type 1 diabetes mellitus with diabetic neuropathy, unspecified; E10.22 Type 1 diabetes mellitus with diabetic chronic kidney disease; N18.3 Chronic kidney disease, stage 3 (moderate); F41.9 Anxiety disorder, unspecified; F31.9 Bipolar disorder, unspecified; Z91.19 Patient's noncompliance with other medical treatment and regimen; Z88.5 Allergy status to narcotic agent; Z79.82 Long term (current) use of aspirin; Z79.4 Long term (current) 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; Z87.891 Personal history of nicotine dependence; Z82.49 Family history of ischemic heart disease and other diseases of the circulatory system; Z80.0 Family history of malignant neoplasm of digestive organs
CPT/HCPCS: 36415; 80053; 81000; 82962; 85025; 96361; 96374

== ENCOUNTER → 2020-01-04 | Outpatient (CLI) | payer MEDICAID ==
[2020-01-04 10:17] LABS: ALBUMIN 4.1 GM/DL (3.2-4.5); BILIRUBIN,TOTAL 0.5 MG/DL (0.1-1.0); CALCIUM 9.8 MG/DL (8.5-10.1); CREATININE SERUM 1.19 MG/DL (0.60-1.30); TOTAL PROTEIN 8.6 GM/DL (6.4-8.2)
== END ==
LOC: LAB 09:46
PROVIDERS: ATTEND Physician Assistant
DX: I25.10 Atherosclerotic heart disease of native coronary artery without angina pectoris (principal); I10 Essential (primary) hypertension; E78.2 Mixed hyperlipidemia
CPT/HCPCS: 36415; 80053; 80061

== ENCOUNTER 2020-04-21 21:15 | Emergency (ER) | payer MEDICAID ==
[~2020-04-21] VITALS: Ht 172.2 cm; Wt 98.0 kg
[2020-04-21 22:14] LABS: BILIRUBIN,URINE NEGATIVE (NEGATIVE); COLOR,URINE YELLOW; GLUCOSE, URINE (UA) 3+ (NEGATIVE); KETONES,URINE NEGATIVE (NEGATIVE); LEUKOCYTE ESTERASE ,URINE 1+ (NEGATIVE); NITRITE,URINE NEGATIVE (NEGATIVE); PROTEIN,URINE NEGATIVE (NEGATIVE)
[2020-04-21 22:20] LABS: CLARITY,URINE SL CLOUDY
[2020-04-21 22:21] LABS: BACTERIA,URINE MODERATE /HPF; HYALINE CASTS, URINE 0-2 /LPF
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
[2020-04-21 23:33] LABS: BASOPHILS % (AUTO) 1 % (0-10); EOSINOPHILS # (AUTO) 0.3 10^3/uL (0.0-0.3); EOSINOPHILS % (AUTO) 4 % (0-10); HEMATOCRIT 38 % (35-52); HEMOGLOBIN 12.9 G/DL (11.5-16.0); LYMPHOCYTES # (AUTO) 1.9 X 10^3 (1.0-4.0); LYMPHOCYTES % (AUTO) 26 % (12-44); MEAN CORPUSCULAR HEMOGLOBIN 32 PG (25-34); MEAN CORPUSCULAR HGB CONC 34 G/DL (32-36); MEAN CORPUSCULAR VOLUME 95 FL (80-99); MEAN PLATELET VOLUME 10.5 FL (7.4-10.4); MONOCYTES # (AUTO) 0.5 X 10^3 (0.0-1.0); MONOCYTES % (AUTO) 7 % (0-12); NEUTROPHILS # (AUTO) 4.7 X 10^3 (1.8-7.8); NEUTROPHILS % (AUTO) 63 % (42-75); PLATELET COUNT 219 10^3/uL (130-400); RED CELL DISTRIBUTION WIDTH 12.9 % (10.0-14.5); WHITE BLOOD COUNT 7.4 10^3/uL (4.3-11.0)
[2020-04-21 23:49] LABS: CALCIUM 9.5 MG/DL (8.5-10.1); CREATININE SERUM 1.32 MG/DL (0.60-1.30); MAGNESIUM 2.1 MG/DL (1.6-2.4); POTASSIUM 4.5 MMOL/L (3.6-5.0)
[2020-04-22] MEDS ORDERED: CEPH-507 PO (00:14)
[2020-04-22] MEDS ORDERED: CEPHALEXIN 250 MG (KEFLEX) CAP PO ONE (00:15)
[2020-04-22 00:24] VITALS: BP 122/78
== END 2020-04-22 00:25 | disposition home or self-care (01) ==
LOC: EDUNIT# 21:15 → ER 21:16
DX: N39.0 Urinary tract infection, site not specified (principal); E11.65 Type 2 diabetes mellitus with hyperglycemia; E78.00 Pure hypercholesterolemia, unspecified; E11.40 Type 2 diabetes mellitus with diabetic neuropathy, unspecified; E11.22 Type 2 diabetes mellitus with diabetic chronic kidney disease; N18.3 Chronic kidney disease, stage 3 (moderate); F31.9 Bipolar disorder, unspecified; F41.9 Anxiety disorder, unspecified; F17.210 Nicotine dependence, cigarettes, uncomplicated; Z88.5 Allergy status to narcotic agent; Z79.82 Long term (current) use of aspirin; Z79.4 Long term (current) 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; Z80.0 Family history of malignant neoplasm of digestive organs
CPT/HCPCS: 36415; 80048; 81000; 83735; 85025; 87088

== ENCOUNTER → 2020-06-11 | Outpatient (CLI) | payer MEDICAID ==
[~2020-06-11] MED LIST changes: +CEPH-507 PO
[2020-06-11 11:41] LABS: BASOPHILS # (AUTO) 0.1 10^3/uL (0.0-0.1); BASOPHILS % (AUTO) 1 % (0-10); EOSINOPHILS # (AUTO) 0.3 10^3/uL (0.0-0.3); EOSINOPHILS % (AUTO) 4 % (0-10); HEMATOCRIT 40 % (35-52); HEMOGLOBIN 13.1 G/DL (11.5-16.0); LYMPHOCYTES # (AUTO) 1.8 X 10^3 (1.0-4.0); LYMPHOCYTES % (AUTO) 23 % (12-44); MEAN CORPUSCULAR HEMOGLOBIN 31 PG (25-34); MEAN CORPUSCULAR HGB CONC 33 G/DL (32-36); MEAN CORPUSCULAR VOLUME 95 FL (80-99); MEAN PLATELET VOLUME 10.2 FL (7.4-10.4); MONOCYTES # (AUTO) 0.5 X 10^3 (0.0-1.0); MONOCYTES % (AUTO) 7 % (0-12); NEUTROPHILS # (AUTO) 5.2 X 10^3 (1.8-7.8); NEUTROPHILS % (AUTO) 65 % (42-75); PLATELET COUNT 244 10^3/uL (130-400); RED CELL DISTRIBUTION WIDTH 12.8 % (10.0-14.5)
[2020-06-11 11:58] LABS: ALBUMIN 4.1 GM/DL (3.2-4.5); BILIRUBIN,TOTAL 0.7 MG/DL (0.1-1.0); CALCIUM 9.3 MG/DL (8.5-10.1); CREATININE SERUM 1.23 MG/DL (0.60-1.30); POTASSIUM 3.9 MMOL/L (3.6-5.0); TOTAL PROTEIN 8.7 GM/DL (6.4-8.2)
== END ==
LOC: LAB 11:26
PROVIDERS: ATTEND Nurse Practitioner Family
DX: F33.2 Major depressive disorder, recurrent severe without psychotic features (principal)
CPT/HCPCS: 36415; 80053; 84443; 85025

== ENCOUNTER → 2020-07-17 | Outpatient (CLI) | payer MEDICAID ==
[2020-07-17 10:06] LABS: BILIRUBIN,URINE NEGATIVE (NEGATIVE); CLARITY,URINE CLEAR; COLOR,URINE YELLOW; GLUCOSE, URINE (UA) 2+ (NEGATIVE); KETONES,URINE NEGATIVE (NEGATIVE); LEUKOCYTE ESTERASE ,URINE NEGATIVE (NEGATIVE); NITRITE,URINE NEGATIVE (NEGATIVE); PROTEIN,URINE NEGATIVE (NEGATIVE)
[2020-07-17 10:07] LABS: BASOPHILS # (AUTO) 0.1 10^3/uL (0.0-0.1); BASOPHILS % (AUTO) 1 % (0-10); EOSINOPHILS # (AUTO) 0.3 10^3/uL (0.0-0.3); EOSINOPHILS % (AUTO) 4 % (0-10); HEMATOCRIT 39 % (35-52); HEMOGLOBIN 12.9 G/DL (11.5-16.0); LYMPHOCYTES # (AUTO) 1.8 X 10^3 (1.0-4.0); LYMPHOCYTES % (AUTO) 23 % (12-44); MEAN CORPUSCULAR HEMOGLOBIN 32 PG (25-34); MEAN CORPUSCULAR HGB CONC 33 G/DL (32-36); MEAN CORPUSCULAR VOLUME 95 FL (80-99); MEAN PLATELET VOLUME 10.2 FL (7.4-10.4); MONOCYTES # (AUTO) 0.6 X 10^3 (0.0-1.0); MONOCYTES % (AUTO) 7 % (0-12); NEUTROPHILS # (AUTO) 5.1 X 10^3 (1.8-7.8); NEUTROPHILS % (AUTO) 65 % (42-75); PLATELET COUNT 202 10^3/uL (130-400); WHITE BLOOD COUNT 7.8 10^3/uL (4.3-11.0)
[2020-07-17 10:29] LABS: ALBUMIN 3.9 GM/DL (3.2-4.5); CALCIUM 9.2 MG/DL (8.5-10.1); CREATININE SERUM 1.04 MG/DL (0.60-1.30); PHOSPHORUS 3.4 MG/DL (2.3-4.7); POTASSIUM 4.3 MMOL/L (3.6-5.0); URIC ACID 4.1 MG/DL (2.6-7.2)
[2020-07-17 10:39] LABS: BACTERIA,URINE FEW /HPF
== END ==
LOC: LAB 09:36
PROVIDERS: ATTEND Internal Medicine Nephrology
DX: E55.9 Vitamin D deficiency, unspecified (principal); I12.9 Hypertensive chronic kidney disease with stage 1 through stage 4 chronic kidney disease, or unspecified chronic kidney disease; N18.3 Chronic kidney disease, stage 3 (moderate); E79.0 Hyperuricemia without signs of inflammatory arthritis and tophaceous disease
CPT/HCPCS: 36415; 80069; 81000; 82306; 82570; 83970; 84156; 84550; 85025; 87088

== ENCOUNTER → 2020-07-17 | Outpatient (CLI) | payer MEDICAID ==
[2020-07-17 10:32] LABS: ALBUMIN 3.9 GM/DL (3.2-4.5); BILIRUBIN,TOTAL 0.3 MG/DL (0.1-1.0); CALCIUM 9.3 MG/DL (8.5-10.1); CREATININE SERUM 1.02 MG/DL (0.60-1.30); POTASSIUM 4.3 MMOL/L (3.6-5.0); TOTAL PROTEIN 8.7 GM/DL (6.4-8.2)
== END ==
LOC: LAB 09:46
PROVIDERS: ATTEND Internal Medicine Cardiovascular Disease
DX: I10 Essential (primary) hypertension (principal); E78.2 Mixed hyperlipidemia; I07.1 Rheumatic tricuspid insufficiency; R55 Syncope and collapse
CPT/HCPCS: 36415; 80053; 80061

== ENCOUNTER → 2020-08-08 | Outpatient (CLI) | payer MEDICAID ==
[~2020-08-08] MED LIST changes: +ALPR.25T PO; +FLUT9.9S16 NS; +RT-ALBUINH INH
== END ==
LOC: CARD 10:30
PROVIDERS: ATTEND Internal Medicine Cardiovascular Disease
DX: I07.1 Rheumatic tricuspid insufficiency (principal); I10 Essential (primary) hypertension; E78.2 Mixed hyperlipidemia; R55 Syncope and collapse
CPT/HCPCS: 93306

== ENCOUNTER → 2020-08-08 | Outpatient (CLI) | payer MEDICAID ==
[~2020-08-08] MED LIST changes: -ALPR.25T PO; -FLUT9.9S16 NS; -RT-ALBUINH INH
--- NOTE | 2020-08-08 13:33 | Diagnostic Imaging Report ---
INDICATION: Routine screening. Comparison is made with prior mammogram 07/11/2019 and 02/10/2017. 2-D and 3-D bilateral screening mammography was performed with CAD. Scattered fibroglandular densities are identified bilaterally. The parenchymal pattern is stable. No mass or malignant appearing microcalcifications are seen. There are benign parenchymal and vascular calculations bilaterally. Axillae are unremarkable. IMPRESSION: BI-RADS Category 2 No mammographic features suspicious for malignancy are identified. ACR BI-RADS Category 2: Benign findings. Result letter will be mailed to the patient. Note: At least 10% of breast cancer is not imaged by mammography. Dictated by: Dictated on workstation # [id number]
== END ==
LOC: RAD 09:53
PROVIDERS: ATTEND Nurse Practitioner Family
DX: Z12.31 Encounter for screening mammogram for malignant neoplasm of breast (principal)
CPT/HCPCS: 77063; 77067

== ENCOUNTER → 2020-08-12 | Outpatient (CLI) | payer MEDICAID ==
[~2020-08-12] VITALS: Ht 170 cm; Wt 99.0 kg
[~2020-08-12] MED LIST changes: +CATHETER FLUSH 10 ML SYR IV PRN; +REGADENOSON 0.4 MG/5 ML SYR (LEXISCAN) IV ONE
[2020-08-12 09:28] VITALS: BP 182/86
--- NOTE | 2020-08-13 08:43 | Cardiology Stress Test Report ---
Stress Test Report Date of Procedure/Referring: Date of Procedure: Aug 12, 2020 PCP Ketan Kc MD Admitting Physician Center/[facility] Indications: Hypertension Baseline Heart Rate: 64 Baseline Blood Pressure: Blood Pressure Systolic: 182 Blood Pressure Diastolic: 86 Baseline Vitals Vital Signs Date Time Temp Pulse Resp B/P (MAP) Pulse Ox O2 Delivery O2 Flow Rate FiO2 08/12/20 09:28 66 18 182/86 (118) 98 Room Air Baseline EKG: Baseline EKG: normal sinus rhythm Summary After explaining the procedure to the patient, she signed a consent and then brought to the stress nuclear laboratory. Patient received 0.4 mg Lexiscan for stress test, ECG, heart rate and blood pressure were monitored continuously. Resting and stress dose of radio tracer were injected, imaging was acquired and reviewed in short axis, horizontal long axis and vertical long axis views. TID: 1.09 SSS: 9 SDS: 9 EF: 58 1. Patient tolerated Lexiscan well 2. Baseline hypertension persisted during test 3. Breast attenuation with reversible ischemia involving the whole anterior wall 4. Normal left ventricular size, EF 58 percent KETAN KC MD Aug 13, 2020 08:43
== END ==
LOC: CARD 07:58
PROVIDERS: ATTEND Internal Medicine Cardiovascular Disease
DX: I10 Essential (primary) hypertension (principal); E78.2 Mixed hyperlipidemia; I07.1 Rheumatic tricuspid insufficiency; R55 Syncope and collapse
CPT/HCPCS: 78452; 93017; A9502

== ENCOUNTER 2020-08-16 07:03 | Day surgery (SDC) | payer MEDICAID ==
[2020-08-16] VITALS (10 sets, daily range): BP systolic 119–176; BP diastolic 66–94
[~2020-08-16] VITALS: Ht 170 cm; Wt 97.0 kg
[~2020-08-16 07:03] MED LIST changes: -CATHETER FLUSH 10 ML SYR IV PRN; +HEParin (CATH LAB) 2,000 ML IV ONE; +LIDOCAINE 1% INJ 20 ML 20 ML VIAL ONE; +NS IV 1000 ML 1,000 ML ONE; -REGADENOSON 0.4 MG/5 ML SYR (LEXISCAN) IV ONE
[2020-08-16] MEDS ORDERED: NS IV 1000 ML 1,000 ML IV SCH ×2 (07:15→08:57)
[2020-08-16 07:44] LABS: HEMOGLOBIN 13.7 g/dL (11.5-16.0); MEAN PLATELET VOLUME 10.4 fL (9.0-12.2); WHITE BLOOD COUNT 8.1 10^3/uL (4.3-11.0)
[2020-08-16 07:54] LABS: INR 1.1 (0.8-1.4); PROTHROMBIN TIME PATIENT 14.2 SEC (12.2-14.7)
--- NOTE | 2020-08-16 08:01 | Cardiac Procedure Note-CS/ASA ---
Pre-Procedure Note Pre-Op Procedure Note H&P Reviewed The H&P was reviewed, patient examined and no changes noted. Date H&P Reviewed: Aug 16, 2020 Time H&P Reviewed: 08:01 Conscious Sedation Pre-Proced Time 08:01 ASA Score 3 For ASA 3 and 4: Consider anesthesia and medical clearance. Also, for patients with a history of failed moderate sedation consider anesthesia. Airway Lungs Heart ASA score ASA 1: a normal healthy patient ASA 2: a patient with a mild systemic disease (mid diabetes, controlled hypertension, obesity x ASA 3: a patient with a severe systemic disease that limits activity (angina, COPD, prior Myocardial infarction) ASA 4: a patient with an incapacitating disease that is a constant threat to life (CHF, renal failure) ASA 5: a moribund patient not expected to survive 24 hrs. (ruptured aneurysm) ASA 6: a declared brain- patient whose organs are being harvested. For emergent operations, add the letter E after the classification Mallampati Classification Grade 3 Sedation Plan Analgesia, Amnesia, Plan communicated to team members, Discussed options with patient/fam, Discussed risks with patient/fam The patient is an appropriate candidate to undergo the planned procedure, sedation, and anesthesia. The patient immediately re-assessed prior to indication. KETAN ADAMS MD Aug 16, 2020 08:01
[2020-08-16 08:03] LABS: ALBUMIN 4.1 GM/DL (3.2-4.5); BILIRUBIN,TOTAL 0.7 MG/DL (0.1-1.0); CALCIUM 9.3 MG/DL (8.5-10.1); CREATININE SERUM 1.19 MG/DL (0.60-1.30); POTASSIUM 3.4 MMOL/L (3.6-5.0); TOTAL PROTEIN 9.2 GM/DL (6.4-8.2)
[2020-08-16] MEDS ORDERED: GABA-490 PO (08:07)
[2020-08-16] MEDS ORDERED: ALPR.25T PO (08:07)
[2020-08-16] MEDS ORDERED: MIDAZOLAM 5 MG/5 ML (VERSED) VIAL ONE (08:07)
[2020-08-16] MEDS ORDERED: FLUT9.9S16 NS (08:07)
[2020-08-16] MEDS ORDERED: RT-ALBUINH INH (08:07)
[2020-08-16] MEDS ORDERED: fentaNYL INJECTION 100 MCG/2 ML AMP ONE (08:08)
[2020-08-16] MEDS ORDERED: NITRO DRIP 25000 MCG/D5W 250 ML IV ONE (08:08)
[2020-08-16] MEDS ORDERED: VERAPAMIL 5 MG/2 ML (CALAN) VIAL IV ONE (08:08)
[2020-08-16] MEDS ORDERED: HEParin 1000 UNIT/ML (10ML VIAL) FOR BOLUS ONE (08:08)
[2020-08-16] MEDS ORDERED: ATOR10TA PO (08:59)
--- NOTE | 2020-08-16 08:59 | Discharge Inst-Post CATH ---
Discharge Inst-CATH/EP Problems Reviewed?: Yes Post Cardiac Cath/EP D/C Inst Follow Up/Plan Appointment with Dr. Kc's office in 4 weeks <b>CARDIAC CATH/EP PROCEDURE DISCHARGE INSTRUCTIONS</b> ACTIVITY * Go Home directly and rest. * Limit activity of the leg (or wrist if it was used) for 7 days including aerobics, swimming, jogging, bicycling, etc. * Restrict stair-climbing for 7 days if possible, if not, climb up with your non-cath leg, then bring together on the same step. * Avoid lifting, pushing, pulling or excessive movement of the affected extremity for 7 days. * Customary sexual activity may be resumed after 2 days-use caution not to use a position that strains or causes pain to the affected extremity. * No driving for 24 hours. * NO SMOKING. * Avoid straining for bowel movements for 7 days. * Gentle walking on level ground is allowed. * Returning to work will depend on the type of procedure and the results. Your doctor will discuss this with you. CALL YOUR DOCTOR FOR ANY OF THE FOLLOWING: *If bleeding from the puncture site occurs- Apply gentle pressure to site with clean cloth and call your doctor or EMS. * If a knot or lump forms under the skin, increases in size, or causes pain. * If bruising appears to be worsening or moving further down your leg instead of disappearing. * Temperature above 101 F. CARE OF YOUR GROIN INCISION; * Bruising or purple discoloration of the skin near the puncture site is common. * You may shower only, no bathtub bathing for 5 days. Be careful to avoid slipping as your leg may feel stiff. * If a closure device was used on your femoral artery, please see the attached guide regarding care of the device and your leg. * Leave dressing on FOR 24 hours. CARE OF YOUR WRIST INCISION; * Bruising or purple discoloration of the skin near the puncture site is common. * You may shower. * DO NOT submerge wrist. * Leave dressing on FOR 24 hours. KETAN KC MD Aug 16, 2020 8:59 am
--- NOTE | 2020-08-16 09:08 | Cardiac Cath Report ---
Cardiac Cath Report Physician (s)/Plodding Operator (s) Physician KETAN ADAMS MD Pre-Procedure Diagnosis Pre-Procedure Diagnosis: coronary artery disease, chest pain Post-Procedure Note Procedure Start Date: Aug 16, 2020 Name of Procedure: Coronary angiogram Aortic arch angiogram Findings/Procedure Note PROCEDURE NOTE: 60-year-old lady with diabetes mellitus, hypertension hyperlipidemia has been having chest pain, had an abnormal stress test scheduled for cardiac catheterization possible PTCA After explaining the procedure to the patient, all pros and cons were explained, all questions were answered. The patient signed the consent and then she was placed on the cardiac catheterization laboratory. Groin was prepped SL fashion local anesthesia was used. Sheath placed in the right radial artery, [place] catheter was advanced to the left main coronary system and angiographic of the left system was done then turned to the right coronary system, had difficulty a dvancing the catheter through the aortic valve. At the end of the procedure aortic arch angiogram was done. At the end of the procedure the sheath was removed. Vascular band was used FINDINGS: Hemodynamics LV was not measured Aorta 149/81 mean of 100 ANATOMY: Left Main is free of obstructive disease Left Anterior Descending has mild irregularity, no obstructive disease Left Circumflex has no significant obstructive disease Right Coronary Artery is dominant artery with no obstructive disease Aorta evaluation done with aortic arch angiogram showing normal aortic arch, no dissection or aneurysm, normal origin of the great vessels of the neck including the vertebrobasilar artery, left carotid and left subclavian artery CONCLUSION: 1. No significant obstructive disease in the coronary system 2. Normal aortic arch and great vessels of the neck DISCUSSION AND RECOMMENDATION: Patient is having recurrent chest pain is unlikely to be cardiac in nature. Abnormal stress test it is probably due to extracardiac attenuation Anesthesia Type: Conscious Sedation Estimated blood loss (mL): 10 ml Contrast Amount: 53 ml Total Radiation Dose: 368 mGy Post-Procedure Diagnosis Post-operative diagnosis: Chest pain Hypertension Hyperlipidemia Coronary artery disease KETAN ADAMS MD Aug 16, 2020 9:08 am
== END 2020-08-16 12:05 | disposition home or self-care (01) ==
LOC: CATH 07:03 → SDC 09:13 → CATH 12:05
PROVIDERS: ATTEND Internal Medicine Cardiovascular Disease
DX: I25.10 Atherosclerotic heart disease of native coronary artery without angina pectoris (principal); I10 Essential (primary) hypertension; R94.39 Abnormal result of other cardiovascular function study; K29.50 Unspecified chronic gastritis without bleeding; E10.40 Type 1 diabetes mellitus with diabetic neuropathy, unspecified; F32.9 Major depressive disorder, single episode, unspecified; K21.00 Gastro-esophageal reflux disease with esophagitis, without bleeding; B96.81 Helicobacter pylori [H. pylori] as the cause of diseases classified elsewhere; E78.2 Mixed hyperlipidemia; Z79.899 Other long term (current) drug therapy; Z79.82 Long term (current) use of aspirin; Z79.51 Long term (current) use of inhaled steroids; Z88.5 Allergy status to narcotic agent; Z90.710 Acquired absence of both cervix and uterus; Z80.9 Family history of malignant neoplasm, unspecified
CPT/HCPCS: 36221; 80053; 85027; 85610; 85730; 87081; 93454; C1894; 36415

== ENCOUNTER → 2021-10-16 | Outpatient (CLI) | payer MEDICAID ==
[~2021-10-16] MED LIST changes: +ACYC-112 PO; -ACYC800T PO; +ALPR.25T PO; +DULO60CA7 PO; +FLUT9.9S16 NS; -HEParin (CATH LAB) 2,000 ML IV ONE; -LIDOCAINE 1% INJ 20 ML 20 ML VIAL ONE; -NS IV 1000 ML 1,000 ML ONE; +RT-ALBUINH INH
--- NOTE | 2021-10-16 15:58 | Diagnostic Imaging Report ---
INDICATION: Routine screening. COMPARISON: 08/08/2020 and 07/11/2019. TECHNIQUE: 2D and 3D bilateral screening mammography was performed with CAD. FINDINGS: Scattered fibroglandular densities are identified bilaterally. Benign parenchymal and vascular calcifications are noted bilaterally. No mass or malignant appearing microcalcifications are seen. The axillae are unremarkable. IMPRESSION: No mammographic features suspicious for malignancy are identified. ACR BI-RADS Category 2: Benign findings. Result letter will be mailed to the patient. Note: At least 10% of breast cancer is not imaged by mammography. Dictated by: Dictated on workstation # [id number]
== END ==
LOC: RAD 14:26
PROVIDERS: ATTEND Nurse Practitioner Family
DX: Z12.31 Encounter for screening mammogram for malignant neoplasm of breast (principal)
CPT/HCPCS: 77063; 77067

== ENCOUNTER → 2021-10-16 | Outpatient (CLI) | payer MEDICAID | LOC: CARD 14:30 | PROVIDERS: ATTEND Internal Medicine Cardiovascular Disease | DX: I11.9 Hypertensive heart disease without heart failure (principal); I35.1 Nonrheumatic aortic (valve) insufficiency | CPT/HCPCS: 93306 ==

== ENCOUNTER → 2022-12-02 | Outpatient (CLI) | payer MEDICAID ==
--- NOTE | 2022-12-03 11:35 | Diagnostic Imaging Report ---
Indication: Routine screening. Comparison is made with prior mammograms from 10/16/2021 and 08/08/2020. 2-D and 3-D bilateral screening mammography was performed with CAD. Both breasts are heterogeneously dense, limiting the sensitivity of mammography. The parenchymal pattern is stable. No mass or malignant-appearing microcalcifications are seen. There are benign calcifications present. Axillae are unremarkable. IMPRESSION: BI-RADS Category 2 No mammographic features suspicious for malignancy are identified. ACR BI-RADS Category 2: Benign findings. Result letter will be mailed to the patient. Note: At least 10% of breast cancer is not imaged by mammography. Dictated by: Dictated on workstation # [id number]
== END ==
LOC: RAD 14:15
PROVIDERS: ATTEND Nurse Practitioner Family
DX: Z12.31 Encounter for screening mammogram for malignant neoplasm of breast (principal)
CPT/HCPCS: 77063; 77067

== ENCOUNTER 2023-07-21 06:00 | Outpatient (CLI) | payer MEDICAID ==
[~2023-07-21] VITALS: Ht 170.2 cm; Wt 89.8 kg
[~2023-07-21 06:00] MED LIST changes: +GABA-491 PO
[2023-07-23] MEDS ORDERED: LISI5TAB20 PO (11:04)
[2023-07-23] MEDS ORDERED: FAMO40TA72 PO (11:04)
[2023-07-23] MEDS ORDERED: GABA300S3 PO (11:04)
[2023-07-23] MEDS ORDERED: INSU300I SQ (11:04)
[2023-07-23] MEDS ORDERED: MIDO10TA PO (11:04)
[2023-07-23] MEDS ORDERED: FLDR.1T PO (11:04)
[2023-07-23] MEDS ORDERED: DULA3PEN SQ (11:04)
== END 2023-07-23 11:16 | disposition home or self-care (01) ==
LOC: PREOP 06:00
PROVIDERS: ATTEND Surgery
DX: Z01.818 Encounter for other preprocedural examination (principal)

== ENCOUNTER → 2023-09-13 | Outpatient (CLI) | payer MEDICARE, MEDICAID ==
[~2023-09-13] VITALS: Ht 170.2 cm; Wt 89.8 kg
[~2023-09-13] MED LIST changes: +ASCO100024 PO; +CHOL100055 PO; +DULA3PEN SQ; +FAMO40TA72 PO; +FLDR.1T PO; +GABA300S3 PO; +INSU300I SQ; +LISI5TAB20 PO; +MECO10005 PO; +MIDO10TA PO
== END | disposition home or self-care (01) ==
LOC: PREOP 05:31
PROVIDERS: ATTEND Surgery
DX: Z01.818 Encounter for other preprocedural examination (principal)

== ENCOUNTER 2023-09-16 06:48 | Day surgery (SDC) | payer MEDICARE, MEDICAID ==
[2023-09-16] VITALS (9 sets, daily range): BP systolic 110–176; BP diastolic 53–88
[~2023-09-16] VITALS: Ht 170.2 cm; Wt 89.8 kg
[2023-09-16] MEDS ORDERED: ceFAZolin INJECTION 2,000 MG in NS (IVPB) 50 ML 50 ML IV ONE (07:00)
[2023-09-16] MEDS ORDERED: LACTATED RINGERS 1,000 ML 1,000 ML IV PRN (07:00)
[2023-09-16] MEDS ORDERED: proPOfol INJECTION 200 MG/20 ML VIAL IV ONE (07:10)
[2023-09-16] MEDS ORDERED: SEVOFLURANE (ULTANE) 15 ML INHAL SOLN ONE (07:10)
[2023-09-16] MEDS ORDERED: ONDANSETRON INJECTION 4 MG/2 ML (SDV) ONE (07:10)
[2023-09-16] MEDS ORDERED: MIDAZOLAM INJ 2 MG/2 ML VIAL ONE (07:10)
[2023-09-16] MEDS ORDERED: fentaNYL INJECTION 100 MCG/2 ML VIAL ONE (07:10)
[2023-09-16] MEDS ORDERED: LIDOCAINE PF 2% 5 ML VIAL ONE (07:10)
[2023-09-16] MEDS ORDERED: BUPIVACAINE 0.5% 30 ML VIAL ONE (07:24)
--- NOTE | 2023-09-16 07:25 | Progress Note-Pre Operative ---
Pre-Operative Progress Note Date H&P Reviewed: Sep 16, 2023 Time H&P Reviewed: 07:17 History & Physical: H&P Reviewed, Patient Examed, No changes noted Pre-Operative Diagnosis: basal cell carcinoma left cheek LINDA MANSFIELD DO Sep 16, 2023 07:25
[2023-09-16] MEDS ORDERED: MUPIROCIN 2% OINTMENT 22 GM TUBE ONE (08:08)
--- NOTE | 2023-09-16 08:22 | Discharge Inst-Simple/Standard ---
Discharge Inst-Standard Patient Instructions/Follow Up Plan of Care/Instructions/FU: Wednesday in [facility] office. Activity as Tolerated: No Discharge Diet: Regular Diet Other Inst to Patient Follow up Appt: Make appointment for [facility] Wednesday and 2 weeks. Instructions: No lifting greater than 10 pounds. No strenuous activity. May shower in 24 hours, no tub bath or soaking. Use incentive spirometer at home as directed. No Smoking Skin/Wound Care: Keep bandage on for 48 hours. Only change if needed. After 48 hrs, change daily. Symptoms to Report: Appetite Changes, Extremity Discoloration, Numbness/Tingling, Swelling Increased, Bleeding Excessive, Eyesight Changes, Pain Increased, Urine Color Change, Constipation(Persistent), Fever over 101 degree F, Pain/Pressure in chest, Urinating Difficulty, Cough Up/Vomit Blood, Heart Beat Irreg/Pounding, Pain/Pressure in jaw, Vaginal Bleeding Increase, Cramps in feet or legs, Lightheadedness, Pain/Pressure in shoulder, Diarrhea(Persistent), Memory Changes Suddenly, Questions/Concerns, Weight gain consecutive days, Dizziness/Fainting, Nausea/Vomiting, Shortness of Breath, Weight gain over 2 pounds If questions or concerns contact your physician Or seek help at emergency department. LINDA MANSFIELD DO Sep 16, 2023 08:22
--- NOTE | 2023-09-16 08:23 | Progress Note-Post Operative ---
Post-Operative Progess Note Surgeon (s)/[employer] (s) Surgeon LINDA MANSFIELD DO [employer]: na Pre-Operative Diagnosis basal cell carcinoma left cheek Post-Operative Diagnosis same Procedure & Operative Findings Date of Procedure 09/16/23 Procedure Performed/Findings excision left cheek basal cell carcinoma 2.4x2.6 cm with full thickness skin graft. Anesthesia Type general Estimated Blood Loss Estimated blood loss (mL): minimal Specimens/Packing Specimens Removed left cheek basal cell. LINDA MANSFIELD DO Sep 16, 2023 08:23
--- NOTE | 2023-09-16 08:33 | Anesthesia-General Post-Op ---
General Patient Condition Mental Status/LOC: Same as Preop Cardiovascular: Satisfactory Nausea/Vomiting: Absent Respiratory: Satisfactory Pain: Controlled Complications: Absent Post Op Complications Complications None Follow Up Care/Instructions Patient Instructions None needed. Anesthesia/Patient Condition Patient Condition Patient is doing well, no complaints, stable vital signs, no apparent adverse anesthesia problems. No complications reported per nursing. DILSHAD PEARSON CRNA Sep 16, 2023 08:33
[2023-09-16] MEDS ORDERED: morphine INJ 10 MG/ML 1ML (SYR OR VIAL) IVP ONE (08:45)
[2023-09-16] MEDS ORDERED: MEPERIDINE INJ 50 MG/ML VIAL IVP ONE (08:45)
[2023-09-16] MEDS ORDERED: ONDANSETRON INJECTION 4 MG/2 ML (SDV) IVP PRN (08:45)
--- NOTE | 2023-09-16 23:53 | OPERATIVE REPORT ---
DATE OF SERVICE: 09/16/2023 PREOPERATIVE DIAGNOSIS: Basal cell carcinoma, left cheek. POSTOPERATIVE DIAGNOSIS: Basal cell carcinoma, left cheek. PROCEDURE: Excision of left cheek basal cell carcinoma 2.4 x 2.6 cm with full thickness skin graft from left chest. SURGEON: Linda Machuca DO ANESTHESIA: General. ESTIMATED BLOOD LOSS: Minimal. COMPLICATIONS: None. INDICATIONS: The patient is a 63-year-old female with basal cell carcinoma of the left cheek/face. She understands risks and benefits of procedure and wishes to proceed. Consent was signed in chart. DESCRIPTION OF PROCEDURE: The patient was taken to the operating suite. She was prepped and draped in sterile fashion. Timeout was performed. Local anesthetic was infiltrated and a #15 blade scalpel was used to make a skin incision around the lesion measuring 2.4 x 2.6 cm. The skin and subcutaneous tissues removed. This was then tagged with long suture lateral and short suture superiorly. Hemostasis was achieved. The left chest had local anesthetic infiltrated and an elliptical incision was made, removing skin for the full skin thickness graft. It was prepped removing the fat from the backside of the skin, which was then sutured with 5-0 Prolene to cover the wound. The skin on the left chest was then closed using 3-0 nylon in a simple running fashion. The areas were then washed and dried and sterile bandages were applied. The patient tolerated the procedure well without any complications, taken to recovery room in stable condition. Job ID: [id number] DocumentID: [id number] Dictated Date: 09/16/2023 15:31:22 Defensive Line Coach Date: 09/16/2023 23:51:00 Dictated By: LINDA MACHUCA DO
== END 2023-09-16 09:50 | disposition home or self-care (01) ==
LOC: SDC 06:48
PROVIDERS: ATTEND Surgery
DX: C44.319 Basal cell carcinoma of skin of other parts of face (principal); K21.00 Gastro-esophageal reflux disease with esophagitis, without bleeding; Z86.010 Personal history of colon polyps; Z79.899 Other long term (current) drug therapy
CPT/HCPCS: 87081